=== PATIENT | female | born 1995 | race Caucasian/White ===

== ENCOUNTER 2022-11-24 20:06 | Outpatient (REF) | payer BC, SELFPAY ==
[2022-11-28 13:08] LABS: Age Gdln ACOG Testing Note (.); IGP, rfx Aptima HPV ASCU Note (.)
== END 2022-11-24 20:07 ==
LOC: LAB 20:06
PROVIDERS: PCP Physician Assistant; Visit Provider Physician Assistant
DX: Z12.4 Encounter for screening for malignant neoplasm of cervix (principal)
CPT/HCPCS: G0145

== ENCOUNTER 2023-12-06 16:54 | Emergency (ER) | payer OTHER, SELFPAY ==
[2023-12-06 17:08] VITALS: BP 110/87; PULSE 91; TEMP 36.9; O2SAT 97; BMI 37.1
--- NOTE | 2023-12-06 17:19 | ED.ALLEREA1 ---
HPI - Allergic Reaction General Chief complaint: Allergic Reaction Stated complaint: Allergic Reaction Time Seen by Provider: 12/06/23 17:05 Source: patient Mode of arrival: walk-in Limitations: no limitations History of Present Illness HPI narrative: Patient is a 28-year-old female who presents to the emergency department for evaluation of facial swelling, runny nose and wheezing secondary to guinea pig exposure at the [employer] where she has started working. She states throughout the day she has had swelling that comes and goes, it is intermittently relieved with Benadryl and her albuterol inhaler but returned shortly after. She has not noted any lip swelling, tongue swelling. She has no hives or diffuse itching. No concern for . Related Data Previous Rx's ?Medication ?Instructions ?Recorded albuterol sulfate 90 mcg/actuation 2 inh inhalation Q4H PRN shortness 12/06/23 aerosol inhaler of breath or wheezing #8.5 grams hydroxyzine HCl 25 mg tablet 25 mg PO Q6H PRN itching #20 tabs 12/06/23 prednisone 20 mg tablet See Rx Instructions .Route 12/06/23 .COMPLEX #12 tabs Allergies Allergy/AdvReac Type Severity Reaction Status Date / Time No Known Drug Allergies Allergy Verified 12/06/23 17:07 Review of Systems ROS Constitutional Denies: fever or chills Eyes Denies: change in vision Ears, nose, mouth, and throat Denies: throat pain Cardiovascular Denies: chest pain Respiratory Reports: wheezing; Denies: shortness of breath Gastrointestinal Denies: nausea or vomiting Musculoskeletal Denies: back pain Integumentary/Breast Denies: rash Neurological Denies: headache Hematologic/Lymphatic Denies: easy bruising or easy bleeding Exam Narrative Exam Narrative: Gen.: Awake, alert, in no distress Head: Normocephalic, atraumatic ENT: Moist mucous membranes, Mild edema noted of the bilateral eyes with no conjunctival injection, no periorbital erythema or tenderness. Airway widely open and patent with uvula midline. No lip or tongue swelling noted Respiratory: No respiratory distress, lungs clear bilaterally; Faint expiratory wheeze in the left lower lobe Cardio: Regular rate and rhythm Extremities: Moves extremities equally Psych: Normal mood and affect Neuro: No focal neuro deficit Skin: Warm, dry, intact Constitutional Vital Signs, click to edit/add: Last Vital Signs Temp 98.4 F 12/06/23 17:08 Pulse 91 H 12/06/23 17:08 Resp 17 12/06/23 17:08 BP 110/87 12/06/23 17:08 Pulse Ox 97 12/06/23 17:08 O2 Del Method Room Air 12/06/23 17:08 Course Vital Signs Vital signs: Vital Signs Temperature 98.4 F 12/06/23 17:08 Pulse Rate 91 H 12/06/23 17:08 Respiratory Rate 17 12/06/23 17:08 Blood Pressure 110/87 12/06/23 17:08 Pulse Oximetry 97 12/06/23 17:08 Oxygen Delivery Method Room Air 12/06/23 17:08 Temperature 98.4 F 12/06/23 17:08 Pulse Rate 91 H 12/06/23 17:08 Respiratory Rate 17 12/06/23 17:08 Blood Pressure 110/87 12/06/23 17:08 Pulse Oximetry 97 12/06/23 17:08 Oxygen Delivery Method Room Air 12/06/23 17:08 MDM - Allergic Reaction MDM Narrative Medical decision making narrative: Patient treated for generalized allergic reaction with Solu-Medrol and DuoNeb in the emergency department. She has stable vital signs. She is in no respiratory distress with no evidence of airway compromise or anaphylaxis. She was given a refill for her albuterol inhaler, hydroxyzine and prednisone for home. Medical Records Attestation: I reviewed the patient's medical records. Discharge Plan Discharge Stand Alone Forms: Portal Instructions Chief Complaint: Allergic Reaction Clinical Impression: Allergic reaction Patient Disposition: Home, Self-Care Time of Disposition Decision: 17:18 Condition: Good Prescriptions / Home Meds: New prednisone 20 mg tablet See Rx Instructions .ROUTE .COMPLEX Qty: 12 0RF Rx Instructions: 3 tabs daily for 2 days, then 2 tabs daily for 2 days, then 1 tab daily for 2 days hydroxyzine HCl 25 mg tablet 25 mg PO Q6H PRN (Reason: itching) Qty: 20 0RF albuterol sulfate 90 mcg/actuation HFA aerosol inhaler 2 inh inhalation Q4H PRN (Reason: shortness of breath or wheezing) Qty: 8.5 0RF Print Language: Emirati Instructions: General Allergic Reaction (ED) Referrals: Ally Craig NP [Primary Care Provider] - 1 week
[2023-12-06] MEDS: IPRATROPIUM/ALBUTEROL SULFATE 3 ML AMPUL.NEB IH (17:26)
[2023-12-06] MEDS: METHYLPREDNISOLONE SOD SUCC PF 125 MG/2 ML VIAL IM (17:37)
[2023-12-06 17:42] VITALS: O2SAT 95
== END 2023-12-06 17:42 | disposition home or self-care (01) ==
PROVIDERS: Emergency Provider Emergency Medicine Emergency Medical Services; PCP Nurse Practitioner
DX: T78.40XA Allergy, unspecified, initial encounter (principal); X58.XXXA Exposure to other specified factors, initial encounter
CPT/HCPCS: 94640; 96372; 99284; J2919

== ENCOUNTER 2023-12-16 09:58 | Emergency (ER) | payer OTHER, SELFPAY ==
[2023-12-16 10:11] VITALS: BP 109/72; PULSE 70; TEMP 36.8; O2SAT 100; BMI 37.4
--- OUTSIDE RECORDS SUMMARY | 2023-12-16 10:19 | XMS_ITS | CCD ---
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 antisepsis were followed. The patient was placed supine and the right hip was prepped and draped in standard sterile fashion using maximum sterile barrier technique. Using fluoroscopic guidance a appropriate location was chosen on theright hip and local anesthesia was achieved using 1% lidocaine. Using fluoroscopic guidance, a 20 g needle was advanced to the superior lateral margin of the femoral head neck junction until bone was reached. Contrast administration through the needle confirmed appropriate placement. Subsequently, 15 mL of dilute gadolinium (40 mL Isovue 370/0.2 mL gadolinium) mixture was administered. The needle was withdrawn and a Band-Aid was applied at the site. Estimated blood loss was less than 1 mL. The patient tolerated the procedure well and left the Department in stable condition. IMPRESSION: Successful fluoroscopic-guided right hip arthrogram. Patient was transferred to MRI for further imaging. [employer] Phone: Radiology Study observation (narrative) [employer] Phone: IR INJ ARTHROGRAM HIP RIGHTO rdered By: Eric Dukes on 06-05-2022 [employer] Phone: 2018 Novel Coronavirus (CoVI D-19), [facility]IR on 02-20-2021 SARS-CoV-2 (COVID-19) RNA SAMIR+probe Ql (Unsp spec) Not detected Invalid Interpretation Code Not Detected [facility] Comment on above: Result Comment: This nucleic acid amplification test was developed and its performance characteristics determined by [employer]. Nucleic acid amplification tests include RT- PCR and TMA. This test has not been FDA cleared or approved. This test has been authorized by FDA under an Emergency Use Authorization (EUA). This test is only authorized for the duration of time the declaration that circumstances exist justifying the authorization of the emergency use of in vitro diagnostic tests for detection of SARS-CoV-2 virus and/or diagnosis of COVID-19 infection under section 564(b)(1) of the Act, 21 U.S.C. 360bbb-3(b) (1), unless the authorization is terminated or revoked sooner. When diagnostic testing is negative, the possibility of a false negative result should be considered in the context of a patient's recent exposures and the presence of clinical signs and symptoms consistent with COVID-19. An individual without symptoms of COVID-19 and who is not shedding SARS-CoV-2 virus would expect to have a negative (not detected) result in this assay. Performed At: [facility] [id number] Maritza Uribe PhD Ph:[phone] Performed By: #### 6 [id number] #### [facility] (DEFAULT) [address] [place] [address] Consent Formson 02-19-2021 Consent Forms [id number] #[facility] [id number] #1.00[facility] Lab - Toxicology Resultson 0 02-19-2021 Lab - Toxicology Results [id number] #1.00OTGTIFF [facility] Outside Recordson 02-19-2021 Outside Records [id number] #1.00OTGTIFF [facility] Triage Industrialon 02-20-20 21 Drug Screen Complete Collected [facility] Comment on above: Performed By: #### 1 [id number] #### [facility] (DEFAULT) [address] [place] [address] ED Clinical Summaryon 2020 ED Clinical Summary [facility] ? Urgent Care [address] [place] [address] Clinical Summary PERSON INFORMATION Name: MADDIE RAMAN Age: 25 Years Sex: FEMALE : 1995 MRN: Acct#: Visit Reason: Medical screening exam; [facility] Arrival: 02/18/2021 13:01:04 Discharge: 02/18/2021 14:21:00 LOS: 000 01:20 Check In: 02/18/2021 13:01:04 Checkout: 02/18/2021 14:21:00 Address: [address] [facility] [address] PCP: Provider, Unlisted PROVIDER INFORMATION Provider Role Assigned Unassigned Adam Moncada PA-C ED PA 02/18/2021 13:10:24 DEYVI Cornejo, Jeanie ED Nurse 02/18/2021 13:11:55 VITALS INFORMATION Vital Sign Triage Latest Temperature Tympanic Temperature Temporal Artery Pulse Rate O2 Sat 99 % 99 % Respiratory Rate Blood Pressure /91 mmHg /91 mmHg MEDICAL INFORMATION Medications Given: Allergy Information: No known allergies PHYSICIAN DOCUMENTATION DISCHARGE INFORMATION: Discharge Disposition: Home Discharge Location: Home PATIENT EDUCATION INFORMATION Instructions: Follow-Up: DIAGNOSIS: Patient Understands: Yes - Patient/family/careg iver verbalizes understanding of instructions given Comment: Normal [facility] ED Patient Summaryon 021 ED Patient Summary [facility] ? Urgent Care [address] [place] [id number] PATIENT DISCHARGE INSTRUCTIONS Patient Information Name: MADDIE RAMAN Age: 25 Years Date of : 1995 Reason For Visit: Medical screening exam; [facility] Arrival Time: 02/18/2021 13:01:04 Primary Care Physician: Provider, Unlisted Attending Physician: Adam Moncada PA-C Comment: Patient Education Medication Information: The exam and treatment you received today in the [facility] Emergency Department were for an urgent problem and are not intended as complete care. It is important for you to follow up with a doctor, nurse practitioner, or physician?s housekeeper and laundry assistant for ongoing care. If your symptoms become worse or you do not improve as expected and you are unable to reach your usual health care provider, you should return to the Emergency Department, we are available 24 hours a day. For those patients who have received Radiology results, the interpretation of your X-ray as given to you by our Emergency Department physician is only a preliminary report. The Radiologist will review your films and if there is a change in the diagnosis you will be notified by phone. Please make sure you have provided a working phone number so we can reach you if necessary. In the event that you had a lab culture while you were a patient in the Emergency Department, you will be notified by phone if there is a need to change your antibiotic. Please make sure you have provided a working phone number so we can reach you if necessary. [facility] Emergency Department has provided you with a complete list of medications post discharge. 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 retail business development manager/provider of your visit and for further instruction on these medications. Any specific questions regarding your chronic medications and dosages should be discussed with your primary care physician(s) and/or pharmacist. Visit Information Visit Diagnosis: Diagnoses This Visit Medical screening exam ([id number]) If you received any narcotics, sedation, or any other medication that causes drowsiness for the next 24 hours, unless otherwise directed: ? Do not drive a car. ? Do not operate machinery such as power tools, lawn mowers, drills, sewing machines, or stoves ? Avoid alcoholic beverages and drugs for allergies, nerves, or sleep ? Do not make important personal or business decisions or sign any legal documents Reason for Visit: Patient arrives to for [facility] physical Allergies: Substance Reaction Symptoms Type Comments No known allergies Drug Vital Signs: Vitals and Measurements this Visit (last charted value for your 02/18/2021 visit) Vital Signs This Visit Temperature Oral: 36.9 DegC Peripheral Pulse Rate: 84 bpm Respiratory Rate: 16 br/min Systolic Blood Pressure: 130 mmHg Diastolic Blood Pressure: 91 mmHg SpO2: 99 % Oxygen Therapy: Room air Problems List: Problem Onset Comments No Problems found Major Tests and Procedures: The following procedures and tests were performed during your ED visit. Laboratory 2019 Novel Coronavirus (CoVID-19), [facility] LC (SEND OUT) Nasopharyngeal Swab, 02/18/21 14:12:00 EDT, Stat collect, Stop date 02/18/21 14:13:00 EDT, Nurse collect, Yes, No, No, No, No, Not Radiology Cardiology Viruses or Bacteria What?s got you sick? Antibiotics only treat bacterial infections. Viral illnesses cannot be treated with antibiotics. When an antibiotic is not prescribed, ask your healthcare professional for tips on how to relieve symptoms and feel better. Usual Cause Illness Viruses Bacteria Antibiotic Needed Cold/Runny Nose NO Bronchitis/Chest Cold (in otherwise healthy children and adults) NO Whooping Cough Yes Flu NO Strep Throat Yes Sore Throat (except strep) NO Fluid in the middle ear (otitis media with effusion) NO Urinary Tract Infection Yes Antibiotics Aren?t Always the Answer www.cdc.gov/getsmart GET SMART Know When Antibiotics Work U.S. Department of Health and Human Services Centers for Disease Control and Prevention February 2014 [facility] Urgent Care Note- Provideron 02-18-2021 Urgent Care Note- Provider Patient: MADDEI RAMAN Age: 25 years Sex: FEMALE : 1995 Associated Diagnoses: None Author: Adam Moncada PA-C Basic Information Additional information: Chief Complaint from Nursing Triage Note : Chief Complaint 02/18/2021 13:34 EDT Chief Complaint Patient arrives to for [facility] physical . History of Present Illness Patient presents for a pre-employment physical. She is cleared for work. Exam is normal. See scanned document. PSYCHIATRIC: Mood and affect appropriate. Health Status Allergies: Allergic Reactions (Selected) No known allergies. Past Medical/ Family/ Social History Medical history: No active or resolved past medical history items have been selected or recorded.. Surgical history: Cholecystectomy ([id number]). Hip replacement ([id number]). delivery ([id number]). Cardiac ablation system ([id number]).. Family history: No family history items have been selected or recorded.. Social history: Social & Psychosocial Habits Alcohol 02/18/2021 Alcohol Use: Current Frequency: 1-2 times per year Substance Abuse 02/18/2021 Substance use: Never Tobacco 02/18/2021 Smoking tobacco use: Never (less than 100 in l Electronic Cigarette/Vaping 02/18/2021 Electronic Cigarette Use: Never . Problem list: No qualifying data available . Physical Examination Vital Signs Vital Signs 02/18/2021 13:34 EDT Temperature Oral 36.9 DegC Peripheral Pulse Rate 84 bpm Respiratory Rate 16 br/min Systolic Blood Pressure 130 mmHg Diastolic Blood Pressure 91 mmHg HI SpO2 99 % Oxygen Therapy Room air . [facility] [place] 021 Urgent Care Record [facility] ? Urgent Care [address] [place] [address] PATIENT DISCHARGE INSTRUCTIONS Patient Information Name: MADDIE RAMAN Age: 25 Years Date of : 1995 Reason For Visit: Medical screening exam; [facility] Arrival Time: 02/18/2021 13:01:04 Primary Care Physician: Provider, Unlisted Attending Physician: Adam Moncada PA-C Comment: Visit Diagnosis: Diagnoses This Visit Medical screening exam ([id number]) If you received any narcotics, sedation, or any other medication that causes drowsiness for the next 24 hours, unless otherwise directed: ? Do not drive a car. ? Do not operate machinery such as power tools, lawn mowers, drills, sewing machines, or stoves ? Avoid alcoholic beverages and drugs for allergies, nerves, or sleep ? Do not make important personal or business decisions or sign any legal documents Medication Information: The exam and treatment you received today in the [facility] Urgent Care were for an urgent problem and are not intended as complete care. It is important for you to follow up with a doctor, nurse practitioner, or physician?s housekeeper and laundry assistant for ongoing care. If your symptoms become worse or you do not improve as expected and you are unable to reach your usual health care provider, you should return to the Emergency Department, we are available 24 hours a day. For those patients who have received Radiology results, the interpretation of your X-ray as given to you by our Urgent Care physician is only a preliminary report. The Radiologist will review your films and if there is a change in the diagnosis you will be notified by phone. Please make sure you have provided a working phone number so we can reach you if necessary. In the event that you had a lab culture while you were a patient in the Urgent Care, you will be notified by phone if there is a need to change your antibiotic. Please make sure you have provided a working phone number so we can reach you if necessary. [facility] has provided you with a complete list of medications post discharge. 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 retail business development manager/provider of your visit and for further instruction on these medications. Any specific questions regarding your chronic medications and dosages should be discussed with your primary care physician(s) and/or pharmacist. Visit Information Allergies: Substance Reaction Symptoms Type Comments No known allergies Drug Vital Signs: Vitals and Measurements this Visit (last charted value for your 02/18/2021 visit) Vital Signs This Visit Temperature Oral: 36.9 DegC Peripheral Pulse Rate: 84 bpm Respiratory Rate: 16 br/min Systolic Blood Pressure: 130 mmHg Diastolic Blood Pressure: 91 mmHg SpO2: 99 % Oxygen Therapy: Room air Problems List: Problem Onset Comments No Problems found Patient Education Viruses or Bacteria What?s got you sick? Antibiotics only treat bacterial infections. Viral illnesses cannot be treated with antibiotics. When an antibiotic is not prescribed, ask your healthcare professional for tips on how to relieve symptoms and feel better. Usual Cause Illness Viruses Bacteria Antibiotic Needed Cold/Runny Nose NO Bronchitis/Chest Cold (in otherwise healthy children and adults) NO Whooping Cough Yes Flu NO Strep Throat Yes Sore Throat (except strep) NO Fluid in the middle ear (otitis media with effusion) NO Urinary Tract Infection Yes Antibiotics Aren?t Always the Answer www.cdc.gov/getsmart GET SMART Know When Antibiotics Work U.S. Department of Health and Human Services Centers for Disease Control and Prevention February 2014 Normal [facility] PROGESTERONEon 05-25-2020 Progesterone 3.3 ng/mL Normal [facility] Comment on above: Result Comment: Foll icular phase 0.1 - 0.9 Luteal phase 1.8 - 23.9 Ovulation phase 0.1 - 12.0 First trimester 11.0 - 44.3 Second trimester 25.4 - 83.3 Third trimester 58.7 - 214.0 Postmenopausal 0.0 - 0.1 Performed By: #### P ROSA #### [facility] [address] [place], [place] [address] Sebastiansam Ordoñez Hgb/Hcton 02-22-2019 Hematocrit (Bld) [Volume fraction] 28.7 % Low 36-46 [facility] Comment on above: Performed By: #### H H #### [facility] [address] [place] [address] Ip Attorney: Remy Haq DO Hemoglobin (Bld) [Mass/Vol] 9.4 g/dL Low 12.0-16.0 [facility] Comment on above: Performed By: #### H H #### [facility] [address] [place] [address] Ip Attorney: Remy Haq DO Basic Metabolic Profon 02-20 (cont.) Normal [facility] Comment on above: Result Comment: Aver age GFR for 20-29 years old: 116 mL/min/1.73sq m Chronic Kidney Disease: <60 mL/min/1.73sq m Kidney failure: <15 mL/min/1.73sq m eGFR calculated using average adult body mass. Additional eGFR calculator available at: http://www.[employer]itsistant/multiple_crcl_2011.htm Performed By: #### Joy YUN, BMP #### [facility] [address] [facility] [place] [address] Ip Attorney: Remy Haq DO Anion gap [Moles/Vol] 13 mmol/L Normal 9-17 [facility] Comment on above: Performed By: #### Joy YUN, BMP #### [facility] [address] [facility] [place] [address] Ip Attorney: Remy Haq DO Calcium [Mass/Vol] 8.8 mg/dL Normal 8.6-10.4 [facility] Comment on above: Performed By: #### Joy YUN, BMP #### [facility] [address] [facility] [place] [address] Ip Attorney: Remy Haq DO Chloride [Moles/Vol] 103 mmol/L Normal 98-107 [facility] Comment on above: Performed By: #### Joy YUN, BMP #### [facility] [address] [facility] [place] [address] Ip Attorney: Remy Haq DO CO2 [Moles/Vol] 25 mmol/L Normal 20-31 [facility] Comment on above: Performed By: #### C BC, BMP #### [facility] [address] [place] [address] Ip Attorney: Remy Haq DO Creatinine [Mass/Vol] 0.72 mg/dL Normal 0.50-0.90 [facility] Comment on above: Performed By: #### C BC, BMP #### [facility] [address] [place] [address] Ip Attorney: Remy Haq, DO GFR, Amer >60 Normal >60 [facility] Comment on above: Performed By: #### C BC, BMP #### [facility] [address] [place] [address] Ip Attorney: Remy Haq DO GFR,non Amer >60 Normal >60 [facility] Comment on above: Performed By: #### C BC, BMP #### [facility] [address] [place] [address] Ip Attorney: Remy Haq DO Glucose [Mass/Vol] 96 mg/dL Normal 70-99 [facility] Comment on above: Performed By: #### C BC, BMP #### [facility] [address] [place] [address] Ip Attorney: Remy Haq DO Potassium [Moles/Vol] 4.0 mmol/L Normal 3.7-5.3 [facility] Comment on above: Performed By: #### C BC, BMP #### [facility] [address] [place] [address] Ip Attorney: Remy Haq DO Sodium [Moles/Vol] 141 mmol/L Normal 135-144 [facility] Comment on above: Performed By: #### C BC, BMP #### [facility] [address] [facility] [place] [address] Ip Attorney: Remy Haq DO Urea nitrogen [Mass/Vol] 10 mg/dL Normal 6-20 [facility] Comment on above: Performed By: #### C JAMA, BMP #### [facility] [address] [facility] [place] [address] Ip Attorney: Remy Haq DO BUN/CRE Ratio NOT REPORTED Normal -20 [facility] Comment on above: Performed By: #### Joy YUN, BMP #### [facility] [place] [address] Ip Attorney: Remy Haq DO Staging: NOT REPORTED Normal [facility] Comment on above: Performed By: #### Joy YUN, BMP #### [facility] [address] [place] [address] Ip Attorney: Remy Haq DO CBCon 02-20-2019 Erythrocyte distribution width (RBC) [Ratio] 16.5 % High 11.5-14.9 [facility] Comment on above: Performed By: #### Joy YUN, BMP #### [facility] [address] [place] [address] Ip Attorney: Remy Haq DO Hematocrit (Bld) [Volume fraction] 25.9 % Low 36-46 [facility] Comment on above: Performed By: #### C JAMA, BMP #### [facility] [address] [place] [address] Ip Attorney: Remy Haq DO Hemoglobin (Bld) [Mass/Vol] 8.6 g/dL Low 12.0-16.0 [facility] Comment on above: Performed By: #### Joy YUN, BMP #### [facility] [address] [place] [address] Ip Attorney: Remy Haq DO MCH (RBC) [Entitic mass] 28.2 pg Normal 26-34 [facility] Comment on above: Performed By: #### Joy YUN, BMP #### [facility] [place] [address] Ip Attorney: Remy Haq DO MCHC (RBC) [Mass/Vol] 33.0 g/dL Normal 31-37 [facility] Comment on above: Performed By: #### Joy YUN, BMP #### [facility] [address] [place] [address] Ip Attorney: Remy Haq DO MCV (RBC) [Entitic vol] 85.4 fL Normal 80-100 [facility] Comment on above: Performed By: #### Joy YUN, BMP #### [facility] [address] [place] [address] Ip Attorney: Remy Haq DO Platelet mean volume (Bld) [Entitic vol] 6.7 fL Normal 6.0-12.0 [facility] Comment on above: Performed By: #### Joy YUN, BMP #### [facility] [address] [place] [address] Ip Attorney: Remy Haq DO Platelets (Bld) [#/Vol] 419 10*3/uL Normal 150-450 [facility] Comment on above: Performed By: #### Joy YUN, BMP #### [facility] [address] [place] [address] Ip Attorney: Remy Haq DO RBC (Bld) [#/Vol] 3.03 10*6/uL Low 4.0-5.2 [facility] Comment on above: Performed By: #### Joy YUN, BMP #### [facility] [address] [place] [address] Ip Attorney: Remy Haq DO WBC (Bld) [#/Vol] 6.3 10*3/uL Normal 3.5-11.0 [facility] Comment on above: Performed By: #### C BC, BMP #### [facility] [address] [place] [address] Ip Attorney: Remy Haq DO NRBC Automated NOT REPORTED Normal [facility] Comment on above: Performed By: #### C BC, BMP #### [facility] [address] [place] [address] Ip Attorney: Remy Haq DO Hgb/Hcton 02-20-2019 Hematocrit (Bld) [Volume fraction] 29.6 % Low 3646 [facility] Comment on above: Performed By: #### H H #### [facility] [place] [address] Ip Attorney: Remy Haq DO Hemoglobin (Bld) [Mass/Vol] 9.7 g/dL Low 12.0-16.0 [facility] Comment on above: Performed By: #### H H #### [facility] [place] [address] Ip Attorney: Remy Haq DO CBCon 02-19-2019 Erythrocyte distribution width (RBC) [Ratio] 16.6 % High 11.5-14.9 [facility] Comment on above: Performed By: #### C BC #### [facility] [place] [address] Ip Attorney: Remy Haq DO Hematocrit (Bld) [Volume fraction] 23.2 % Low 36-46 [facility] Comment on above: Performed By: #### C BC #### [facility] [place] [address] Ip Attorney: Remy Haq DO Hemoglobin (Bld) [Mass/Vol] 7.6 g/dL Low 12.0-16.0 [facility] Comment on above: Performed By: #### C BC #### [facility] [address] [place] [address] Ip Attorney: Remy Haq DO MCH (RBC) [Entitic mass] 27.8 pg Normal 26-34 [facility] Comment on above: Performed By: #### C BC #### [facility] [address] [place] [address] Ip Attorney: Remy Haq DO MCHC (RBC) [Mass/Vol] 32.7 g/dL Normal 31-37 [facility] Comment on above: Performed By: #### C BC #### [facility] [address] [place] [address] Ip Attorney: Remy Haq DO MCV (RBC) [Entitic vol] 85.0 fL Normal 80-100 [facility] Comment on above: Performed By: #### C BC #### [facility] [address] [place] [address] Ip Attorney: Remy Haq DO Platelet mean volume (Bld) [Entitic vol] 6.5 fL Normal 6.0-12.0 [facility] Comment on above: Performed By: #### C BC #### [facility] [facility] [place] [address] Ip Attorney: Remy Haq DO Platelets (Bld) [#/Vol] 444 10*3/uL Normal 150-450 [facility] Comment on above: Performed By: #### C BC #### [facility] [place] [address] Ip Attorney: Remy Haq DO RBC (Bld) [#/Vol] 2.73 10*6/uL Low 4.0-5.2 [facility] Comment on above: Performed By: #### C BC #### [facility] [address] [facility] [place] [address] Ip Attorney: Remy Haq DO WBC (Bld) [#/Vol] 5.1 10*3/uL Normal 3.5-11.0 [facility] Comment on above: Performed By: #### C BC #### [facility] [address] [place] [address] Ip Attorney: Remy Haq DO NRBC Automated NOT REPORTED Normal [facility] Comment on above: Performed By: #### C BC #### [facility] [address] [place] [address] Ip Attorney: Remy Haq DO Type + Crossmatchon 02-20-20 19 Type + Crossmatch Sample Expiration 02/22/2019 Arm Band Number [id number] ABO/Rh(D) A POSITIVE Antibody Screen NEGATIVE Blood Bank Comment Pt's ABRh confirmed as A POS:402 Results Verified BLANCHE, Polyspecific NEGATIVE BLANCHE, Anti-IgG Loreta Serum NEGATIVE Antibody Ident Anti-[place](A) Present Unit Number [id number] Blood Component Type Leukocyte Reduced Red Cell Unit Division 00 Status of Unit TRANSFUSED Transfusion Status OK TO TRANSFUSE Crossmatch Result COMPATIBLE [facility] Comment on above: Performed By: #### T YX #### [facility] [address] [place] [address] Ip Attorney: Remy Haq DO Basic Metab w/rfx MGon 02-16 (cont.) [facility] Comment on above: Result Comment: Aver age GFR for 20-29 years old: 116 mL/min/1.73sq m Chronic Kidney Disease: <60 mL/min/1.73sq m Kidney failure: <15 mL/min/1.73sq m eGFR calculated using average adult body mass. Additional eGFR calculator available at: http://www.MindSumo.com/multiple_crcl_2012.htm Performed By: #### B MPX, CBC #### [facility] [address] [place] [address] Ip Attorney: Remy Haq DO Anion gap [Moles/Vol] 11 mmol/L Normal 9-17 [facility] Comment on above: Performed By: #### B MPX, CBC #### [facility] [address] [facility] [place] [address] Ip Attorney: Remy Haq DO Calcium [Mass/Vol] 8.6 mg/dL Normal 8.6-10.4 [facility] Comment on above: Performed By: #### B MPX, CBC #### [facility] [place] [address] Ip Attorney: Remy Haq DO Chloride [Moles/Vol] 100 mmol/L Normal 98-107 [facility] Comment on above: Performed By: #### B EVERETTEX, CBC #### [facility] [place] [address] Ip Attorney: Remy Haq DO CO2 [Moles/Vol] 26 mmol/L Normal 20-31 [facility] Comment on above: Performed By: #### B MPX, CBC #### [facility] [address] [place] [address] Ip Attorney: Remy Haq DO Creatinine [Mass/Vol] 0.62 mg/dL Normal 0.50-0.90 [facility] Comment on above: Performed By: #### B MPX, CBC #### [facility] [address] [place] [address] Ip Attorney: Remy Haq DO GFR, Amer >60 Normal >60 [facility] Comment on above: Performed By: #### B MPX, CBC #### [facility] [address] [place] [address] Ip Attorney: Remy Haq DO GFR,non Amer >60 Normal >60 [facility] Comment on above: Performed By: #### B MPX, CBC #### [facility] [address] [place] [address] Ip Attorney: Remy Haq DO Glucose [Mass/Vol] 95 mg/dL Normal 70-99 [facility] Comment on above: Performed By: #### B MPX, CBC #### [facility] [address] [place] [address] Ip Attorney: Remy Haq DO Potassium [Moles/Vol] 4.2 mmol/L Normal 3.7-5.3 [facility] Comment on above: Performed By: #### B MPX, CBC #### [facility] [address] [place] [address] Ip Attorney: Remy Haq DO Sodium [Moles/Vol] 137 mmol/L Normal 135-144 [facility] Comment on above: Performed By: #### B MPX, CBC #### [facility] [place] [address] Ip Attorney: Remy Haq DO Urea nitrogen [Mass/Vol] 11 mg/dL Normal 6-20 [facility] Comment on above: Performed By: #### B MPX, CBC #### [facility]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
--- NOTE | 2023-12-16 10:39 | XR_ITS ---
The [address] [address] Patient Name: MADDIE ORNELAS MRN: [id number] date: 1995 Sex: F Assigned Patient Location: ER Current Patient Location: ER Accession/Order Number: [id number] Exam Date: 12/16/2023 11:08 Report Date: 12/16/2023 11:40 At the request of: RYAN HERNANDEZ Procedure: XR lumbar spine 2-3V EXAMINATION: XR lumbar spine 2-3V HISTORY: Low back pain COMPARISON: No relevant comparison available. FINDINGS: BONES: Normal. No significant spondylosis, scoliosis, fracture, or visible bony lesion. DISC SPACES: Normal. No significant disc height narrowing, subluxation, or endplate abnormality. PARASPINOUS: Negative. No paraspinous abnormality is seen. OTHER: Negative. XR/XR lumbar spine 2-3V IMPRESSION: No acute abnormality Electronically authenticated by: ALEJANDRINA ESQUEDA Date: 12/16/2023 11:40
--- NOTE | 2023-12-16 11:46 | ED.BACK1 ---
HPI HPI - Back Pain/Injury General Chief Complaint: Back Pain/Injury Stated Complaint: BACK PAIN Time Seen by Provider: 12/16/23 10:39 Source: patient Mode of arrival: walk-in History of Present Illness HPI Narrative: Patient is here complaining of pain in the low midline of the lumbar spine. She was merely bending over after mopping the floor. She felt a popping type sensation. She did not fall she was not lifting a heavy load. The pain radiates from the midline to both the left and the right iliac area. It does not radiate down the buttock area. There is no associated paresis paresthesias tingling numbness or weakness of the extremities. She had previous right hip surgery done but she does not have any surgery pain rather in her right hip area. No other plain. There is no bowel or bladder incontinence. Related Data Previous Rx's ?Medication ?Instructions ?Recorded albuterol sulfate 90 mcg/actuation 2 inh inhalation Q4H PRN shortness 12/06/23 aerosol inhaler of breath or wheezing #8.5 grams hydroxyzine HCl 25 mg tablet 25 mg PO Q6H PRN itching #20 tabs 12/06/23 prednisone 20 mg tablet See Rx Instructions .Route 12/06/23 .COMPLEX #12 tabs Allergies Allergy/AdvReac Type Severity Reaction Status Date / Time No Known Drug Allergies Allergy Verified 12/06/23 17:07 Opioid HPI Opioid Management Most Recent Opioid Data: No Data to Display Exam Narrative Exam Narrative: Awake alert Meridian x 3 pleasant moves about with some hesitation. In a sitting position or deep tendon reflexes in the peripheral Achilles and patella are symmetrical bilaterally. She does not have straight leg raising test. She has strong extensor houses longus function of both her feet. Examining her back there is no obvious kyphoscoliosis. Constitutional Vital Signs, click to edit/add: Last Vital Signs Temp 98.2 F 12/16/23 10:11 Pulse 70 12/16/23 10:11 Resp 16 12/16/23 10:11 BP 109/72 12/16/23 10:11 Pulse Ox 100 12/16/23 10:11 O2 Del Method Room Air 12/16/23 10:11 Course Vital Signs Vital signs: Vital Signs Temperature 98.2 F 12/16/23 10:11 Pulse Rate 70 12/16/23 10:11 Respiratory Rate 16 12/16/23 10:11 Blood Pressure 109/72 12/16/23 10:11 Pulse Oximetry 100 12/16/23 10:11 Oxygen Delivery Method Room Air 12/16/23 10:11 Temperature 98.2 F 12/16/23 10:11 Pulse Rate 70 12/16/23 10:11 Respiratory Rate 16 12/16/23 10:11 Blood Pressure 109/72 12/16/23 10:11 Pulse Oximetry 100 12/16/23 10:11 Oxygen Delivery Method Room Air 12/16/23 10:11 MDM - Back Pain/Injury MDM Narrative Medical decision making narrative: Routine lumbar spine x-rays were done to establish primarily at baseline I did expect them to be normal, the radiologist read these films as normal. I believe she has lumbar strain with no evidence of radiculopathy. Recommendations were discussed and are conservative at this time Discharge Plan Discharge Stand Alone Forms: Portal Instructions Chief Complaint: Back Pain/Injury Clinical Impression: Acute lumbar myofascial strain Patient Disposition: Home, Self-Care Time of Disposition Decision: 11:48 Prescriptions / Home Meds: No Action prednisone 20 mg tablet See Rx Instructions .ROUTE .COMPLEX Qty: 12 0RF Rx Instructions: 3 tabs daily for 2 days, then 2 tabs daily for 2 days, then 1 tab daily for 2 days hydroxyzine HCl 25 mg tablet 25 mg PO Q6H PRN (Reason: itching) Qty: 20 0RF albuterol sulfate 90 mcg/actuation HFA aerosol inhaler 2 inh inhalation Q4H PRN (Reason: shortness of breath or wheezing) Qty: 8.5 0RF Print Language: Thai Additional Instructions: May alternate ice with heat/[id number]-dnffnyd NSAIDs such as Aleve. Flexeril as needed for muscle relaxant Referrals: Ally Craig, SHEET METAL TECHNICIAN [Primary Care Provider] - 1 week
== END 2023-12-16 12:03 | disposition home or self-care (01) ==
PROVIDERS: Emergency Provider Emergency Medicine Emergency Medical Services; PCP Nurse Practitioner
DX: S39.012A Strain of muscle, fascia and tendon of lower back, initial encounter (principal); X50.9XXA Other and unspecified overexertion or strenuous movements or postures, initial encounter
CPT/HCPCS: 72100; 99283

== ENCOUNTER 2023-12-17 17:28 | Emergency (ER) | payer OTHER, SELFPAY ==
--- OUTSIDE RECORDS SUMMARY | 2023-12-17 17:41 | XMS_ITS | CCD ---
Demographics Address [address] [place] [address] Preferred Language en Marital Status Single Roman Catholic Affiliation Unknown Race Unknown Ethnic Group Not or Lati no Author Organization [facility] Informat ion Partnership [facility] Care Team Providers Care Motion Study Technician Name Role Phone Ally Craig Primary Care Provider TERRI AUGUSTIN Admitting Unavailable TERRI AUGUSTIN Attending Unavailable ALLY CRAIG Primary Care Unavailable VIDYA FERRER Consulting Unavailable CHRISTOPHER, DR HILLIARD Attending Unavailable CHRISTOPHER, DR HILLIARD Consulting Unavailable CHRISTOPHER, DR HILLIARD Admitting Unavailable Jeane Caenla Unavailable Kiara ASSISTANT COUNTY ENGINEER - ELECTRICAL CONTROLS TECHNICIANAlly Primary Care Pro vider ALLY CRAIG Primary [...] source) strawberry allergenic extract Drug Allergy [facility] Repository (3 sources) strawberry allergenic extract Drug Allergy 02-01-2019 Anaphylaxis [facility], [place] Medications Current Medications Medication Drug Class(es) Dates Sig (Normalized) Sig (Original) acetaminophen 500 mg oral tablet (1 source) Start: 02-01-2019 acetaminophen (TYLENOL) tablet 1,000 mg [id number] 200 actuat albuterol 0.09 mg/actuat metered dose [...] by mouth every week vitamin D (ERGOCALCIFEROL) 64708 units CAPS capsule Take 1 capsule by [...] immed iate release tablet 5 mg sennosides, nursing home 8.6 mg oral tablet (2 sources) Start: [...] B12 Start: 02-09-2019 End: 02-09-2019 iron polysaccharide reowucl-M17-rlcga acid (FERREX-FORTE) 150-0.025-1 MG capsule 1 mg [...] gap [Moles/Vol] 10.5 mmol/L Normal 6.0-15.0 [facility] Comment on above: Performed By: #### E BS LIPID, EMP BMP #### [address] Calcium [Mass/Vol] 9.5 mg/dL Normal 8.6-10.3 [facility] Comment on above: Performed By: #### E BS LIPID, EMP BMP #### [address] Chloride [Moles/Vol] 105 mmol/L Normal 98-107 [facility] Comment on above: Performed By: #### E BS LIPID, EMP BMP #### [address] CO2 [Moles/Vol] 29.1 mmol/L Normal 21.0-31.0 [facility] Comment on above: Performed By: #### E BS LIPID, EMP BMP #### [address] Creatinine [Mass/Vol] 0.69 mg/dL Normal 0.60-1.20 [facility] Comment on above: Performed By: #### E BS LIPID, EMP BMP #### [place] [address] [place] GFR/1.73 sq M.predicted MDRD (S/P/Bld) [Vol rate/Area] mL/min/{1.73_m2} Normal [facility] Comment on above: Performed By: #### E BS LIPID, EMP BMP #### [place] [address] [place] Glucose [Mass/Vol] 83 mg/dL Normal 70-100 [facility] Comment on above: Performed By: #### E BS LIPID, EMP BMP #### [address] [place] [address] [place] Potassium [Moles/Vol] 3.6 mmol/L Normal 3.5-5.1 [facility] Comment on above: Performed By: #### E BS LIPID, EMP BMP #### [facility] [address] [place] [address] [place] Sodium [Moles/Vol] 141 mmol/L Normal 136-145 [facility] Comment on above: Performed By: #### E BS LIPID, EMP BMP #### [facility] [address] Urea nitrogen [Mass/Vol] 14 mg/dL Normal 7-25 [facility] Comment on above: Performed By: #### E BS LIPID, EMP BMP #### [facility] [address] Lipid Profileon 12-08-2023 Cholesterol [Mass/Vol] 163 mg/dL Normal 140-200 [facility] Comment on above: Result Comment: Chol less than 200 mg/dl low risk Chol 201-239 mg/dl borderline risk Chol 240 mg/dl and greater high risk Performed By: #### E BS LIPID, EMP BMP #### [place] [address] [place] Cholesterol in HDL [Mass/Vol] 62 mg/dL Normal 23-92 [facility] Comment on above: Result Comment: HDL CHOL ATP-III CLASSIFICATION Cardiovascular Risk HDL > or equal to 60 mg/dL LOW HDL < 40 mg/dL HIGH Performed By: #### E BS LIPID, EMP BMP #### [facility] [address] [place] [address] Cholesterol.total/C holesterol in HDL [Mass ratio] 2.6 {ratio} Normal <5.0 [facility] Comment on above: Result Comment: PERF ORMED BY: [place] [address] PATHOLOGIST SENIOR [employer] NET DEVELOPER CHERYL GEORGE M.D. Performed By: #### E BS LIPID, EMP BMP #### [place] [address] [place] LDL Cholesterol,Calcula desmond 84 mg/dL Normal 0-100 [facility] Comment on above: Result Comment: LDL ATP III CLASSIFICATION LDL less than 100 mg/dL Optimal LDL 100-129 mg/dL Near or above optimal LDL 130-159 mg/dL Borderline high LDL 160-189 mg/dL High LDL greater than 189 mg/dL Very high Performed By: #### E BS LIPID, EMP BMP #### [facility] [address] Triglyceride w/Reflex 87 mg/dL Normal 0-149 [facility] Comment on above: Result Comment: TRIG ATP III CLASSIFICATION TRIG less than 150 mg/dL Normal TRIG 150-199 mg/dL Borderline high TRIG 200-500 mg/dL High TRIG greater than 500 mg/dL Very high Standard traceable to the Center for Disease Conrtrol and Prevention (CDC) test method. Performed By: #### E BS LIPID, EMP BMP #### [facility] [address] VLDL CHOLESTEROL 17 mg/dL Normal [facility] Comment on above: Performed By: #### E BS LIPID, EMP BMP #### [facility] [address] MRI HIP RIGHT W CONTRASTon 1 [...] Tucker Ashby MD 06/08/22 Final result Normal [facility] IR INJ ARTHROGRAM HIP RIGHTo n 06-05-2022 [...] 120.55 uGy cm 2 Views: 3 PROCEDURE: POWER PLANT MECHANIC: Elijah Houston This procedure was performed by [...] Eric Rae MD 06/05/22 Final result Normal [facility] Successful fluoroscopic-guided right hip arthrogram. Patient was transferred to MRI for further imaging. [facility] EXAMINATION: FLUOROSCOPIC GUIDED RIGHT HIP ARTHROGRAM, 06/05/2022 2:50 pm COMPARISON: None. HISTORY: ORDERING SYSTEM PROVIDED HISTORY: Tear of right acetabular labrum, initial encounter TECHNOLOGIST PROVIDED HISTORY: r/o R hip labral tear. MRI ordered Is the patient ?->No FLUOROSCOPY DOSE AND TYPE OR TIME AND EXPOSURES: Fluoro time 0.3 minutes DAP 120.55 uGy cm 2 Views: 3 PROCEDURE: POWER PLANT MECHANIC: Elijah [place] This procedure was performed by [...] and left the Department in stable condition. [facility] Eric Dukes MD - 06/05/2022 EXAMINATION: FLUOROSCOPIC GUIDED RIGHT HIP ARTHROGRAM, 06/05/2022 2:50 pm COMPARISON: None. HISTORY: ORDERING SYSTEM PROVIDED HISTORY: Tear of right acetabular labrum, initial encounter TECHNOLOGIST PROVIDED HISTORY: r/o R hip labral tear. MRI ordered Is the patient ?->No FLUOROSCOPY DOSE AND TYPE OR TIME AND EXPOSURES: Fluoro time 0.3 minutes DAP 120.55 uGy cm 2 Views: 3 PROCEDURE: POWER PLANT MECHANIC: Elijah Houston This procedure was performed by [...] was transferred to MRI for further imaging. [employer] Phone: Radiology Study observation (narrative) [employer] Phone: IR INJ ARTHROGRAM HIP RIGHTO rdered By: Eric Dukes on 06-05-2022 [employer] Phone: 2018 Novel Coronavirus (CoVI D-19), [facility]IR on 02-20-2021 SARS-CoV-2 (COVID-19) RNA SAMIR+probe Ql (Unsp spec) Not detected Invalid Interpretation Code Not Detected [facility] Comment on above: Result Comment: This nucleic acid amplification test was developed and its performance characteristics determined by [employer]. Nucleic acid amplification tests include RT- PCR [...] detected) result in this assay. Performed At: [facility] [id number] Maritza Uribe PhD Ph:[phone] Performed By: #### 6 [id number] #### [facility] (DEFAULT) [address] [place] [address] Consent Formson 02-19-2021 Consent Forms [id number] [facility] [id number] [facility] Lab - Toxicology Resultson 0 02-19-2021 Lab - Toxicology Results [id number] #1.00[facility] Outside Recordson 02-19-2021 Outside Records [id number] #1.00OT[facility]IFF [facility] Triage Industrialon 02-20-20 21 Drug Screen Complete Collected [facility] Comment on above: Performed By: #### 1 [id number] #### [facility] (DEFAULT) [address] [place] [address] ED Clinical Summaryon 2020 ED Clinical Summary [facility] ? Urgent Care [address] [place] [address] Clinical Summary PERSON INFORMATION Name: MADDIE RAMAN Age: 25 Years Sex: FEMALE : 1995 MRN: Acct#: Visit Reason: Medical screening exam; [facility] Arrival: 02/18/2021 13:01:04 Discharge: 02/18/2021 14:21:00 LOS: 000 01:20 Check In: 02/18/2021 13:01:04 Checkout: 02/18/2021 14:21:00 Address: [address] [facility] [address] PCP: Provider, Unlisted PROVIDER INFORMATION Provider Role [...] [facility] ? Urgent Care [address] [place] [address] PATIENT DISCHARGE INSTRUCTIONS Patient Information Name: MADDIE RAMAN Age: 25 Years Date of : 1995 Reason For Visit: Medical screening exam; [facility] Arrival Time: 02/18/2021 13:01:04 Primary Care Physician: Provider, Unlisted Attending Physician: Adam Moncada PA-C Comment: Patient Education Medication Information: The exam and treatment you received today in the [facility] Emergency Department were for an urgent problem and are not intended as complete care. It is important for you to follow up with a doctor, nurse practitioner, or physician?s title assistant for ongoing care. If your symptoms [...] of medications post discharge. 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 lost charge card clerk/provider of your visit and for further instruction on these medications. Any specific questions regarding your chronic medications and dosages should be discussed with your primary care physician(s) and/or pharmacist. Visit Information Visit Diagnosis: Diagnoses This Visit Medical screening exam ([id number]) If you received any narcotics, sedation, or [...] Reason for Visit: Patient arrives to for [place] physical Allergies: Substance Reaction Symptoms Type Comments [...] for Disease Control and Prevention February 2014 [facility] Note- Provideron 02-18-2021 Urgent Care Note- Provider Patient: MADDIE RAMAN Age: 25 years Sex: FEMALE : 1995 Associated Diagnoses: None Author: Adam Moncada PA-C Basic Information Additional information: Chief Complaint from Nursing Triage Note : Chief Complaint 02/18/2021 13:34 EDT Chief Complaint Patient arrives to for [place] physical . History of Present Illness Patient presents for a pre-employment physical. She is cleared for work. Exam is normal. See scanned document. PSYCHIATRIC: Mood and affect appropriate. Health Status Allergies: Allergic Reactions (Selected) No known allergies. Past Medical/ Family/ Social History Medical history: No active or resolved past medical history items have been selected or recorded.. Surgical history: Cholecystectomy ([id number]). Hip replacement ([id number]). delivery ([id number]). Cardiac ablation system ([id number]).. Family history: No family history items have [...] 99 % Oxygen Therapy Room air . [facility] [address] 021 Urgent Care Record [facility] ? Urgent Care [address] [place] [address] PATIENT DISCHARGE INSTRUCTIONS Patient Information Name: MADDIE RAMAN Age: 25 Years Date of : 1995 Reason For Visit: Medical screening exam; [facility] Arrival Time: 02/18/2021 13:01:04 Primary Care Physician: Provider, Unlisted Attending Physician: Adam Moncada PA-C Comment: Visit Diagnosis: Diagnoses This Visit Medical screening exam ([id number]) If you received any narcotics, sedation, or [...] and treatment you received today in the [facility] Urgent Care were for an urgent problem and are not intended as complete care. It is important for you to follow up with a doctor, nurse practitioner, or physician?s title assistant for ongoing care. If your symptoms [...] of medications post discharge. 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 lost charge card clerk/provider of your visit and for further instruction [...] Township PROGESTERONEon 05-25-2020 Progesterone 3.3 ng/mL Normal [facility] Comment on above: Result Comment: Foll icular phase 0.1 - 0.9 Luteal phase 1.8 - 23.9 Ovulation phase 0.1 - 12.0 First trimester 11.0 - 44.3 Second trimester 25.4 - 83.3 Third trimester 58.7 - 214.0 Postmenopausal 0.0 - 0.1 Performed By: #### P ROSA #### [facility] [address] [place], [place] [address] Sebastiansam Ordoñez Hgb/Hcton 02-22-2019 Hematocrit (Bld) [Volume fraction] 28.7 % Low 36-46 [facility] Comment on above: Performed By: #### H H #### [facility] [address] [place] [address] Manager Business: Remy Haq DO Hemoglobin (Bld) [Mass/Vol] 9.4 g/dL Low 12.0-16.0 [facility] Comment on above: Performed By: #### H H #### [facility] [address] [place] [address] Manager Business: Remy Haq DO Basic Metabolic Profon 02-20 (cont.) Normal [facility] Comment on above: Result Comment: Aver age GFR for 20-29 years old: 116 mL/min/1.73sq m Chronic Kidney Disease: <60 mL/min/1.73sq m Kidney failure: <15 mL/min/1.73sq m eGFR calculated using average adult body mass. Additional eGFR calculator available at: http://www.adQuota/multiple_crcl_2011.htm Performed By: #### Joy YUN, BMP #### [facility] [address] [facility] [place] [address] Manager Business: Remy Haq DO Anion gap [Moles/Vol] 13 mmol/L Normal 9-17 [facility] Comment on above: Performed By: #### Joy YUN, BMP #### [facility] [address] [facility] [place] [address] Manager Business: Remy Haq DO Calcium [Mass/Vol] 8.8 mg/dL Normal 8.6-10.4 [facility] Comment on above: Performed By: #### Joy YUN, BMP #### [facility] [address] [facility] [place] [address] Manager Business: Remy Haq DO Chloride [Moles/Vol] 103 mmol/L Normal 98-107 [facility] Comment on above: Performed By: #### Joy YUN, BMP #### [facility] [address] [facility] [place] [address] Manager Business: Remy Haq DO CO2 [Moles/Vol] 25 mmol/L Normal 20-31 [facility] Comment on above: Performed By: #### C BC, BMP #### [facility] [address] [place] [address] Manager Business: Remy Haq DO Creatinine [Mass/Vol] 0.72 mg/dL Normal 0.50-0.90 [facility] Comment on above: Performed By: #### C BC, BMP #### [facility] [address] [place] [address] Manager Business: Remy Haq, DO GFR, Amer >60 Normal >60 [facility] Comment on above: Performed By: #### C BC, BMP #### [facility] [address] [place] [address] Manager Business: Remy Haq DO GFR,non Amer >60 Normal >60 [facility] Comment on above: Performed By: #### C BC, BMP #### [facility] [address] [place] [address] Manager Business: Remy Haq DO Glucose [Mass/Vol] 96 mg/dL Normal 70-99 [facility] Comment on above: Performed By: #### C BC, BMP #### [facility] [address] [place] [address] Manager Business: Remy Haq DO Potassium [Moles/Vol] 4.0 mmol/L Normal 3.7-5.3 [facility] Comment on above: Performed By: #### C BC, BMP #### [facility] [address] [place] [address] Manager Business: Remy Haq DO Sodium [Moles/Vol] 141 mmol/L Normal 135-144 [facility] Comment on above: Performed By: #### C BC, BMP #### [facility] [address] [facility] [place] [address] Manager Business: Remy Haq DO Urea nitrogen [Mass/Vol] 10 mg/dL Normal 6-20 [facility] Comment on above: Performed By: #### C JAMA, BMP #### [facility] [address] [facility] [place] [address] Manager Business: Remy Haq DO BUN/CRE Ratio NOT REPORTED Normal -20 [facility] Comment on above: Performed By: #### Joy YUN, BMP #### [facility] [facility] [place] [address] Manager Business: Remy Haq DO Staging: NOT REPORTED Normal [facility] Comment on above: Performed By: #### Joy YUN, BMP #### [facility] [address] [place] [address] Manager Business: Remy Haq DO CBCon 02-20-2019 Erythrocyte distribution width (RBC) [Ratio] 16.5 % High 11.5-14.9 [facility] Comment on above: Performed By: #### Joy YUN, BMP #### [facility] [address] [place] [address] Manager Business: Remy Haq DO Hematocrit (Bld) [Volume fraction] 25.9 % Low 36-46 [facility] Comment on above: Performed By: #### C JAMA, BMP #### [facility] [address] [place] [address] Manager Business: Remy Haq DO Hemoglobin (Bld) [Mass/Vol] 8.6 g/dL Low 12.0-16.0 [facility] Comment on above: Performed By: #### Joy YUN, BMP #### [facility] [address] [place] [address] Manager Business: Remy Haq DO MCH (RBC) [Entitic mass] 28.2 pg Normal 26-34 [facility] Comment on above: Performed By: #### Joy YUN, BMP #### [facility] [place] [address] Manager Business: Remy Haq DO MCHC (RBC) [Mass/Vol] 33.0 g/dL Normal 31-37 [facility] Comment on above: Performed By: #### Joy YUN, BMP #### [facility] [address] [place] [address] Manager Business: Remy Haq DO MCV (RBC) [Entitic vol] 85.4 fL Normal 80-100 [facility] Comment on above: Performed By: #### Joy YUN, BMP #### [facility] [address] [place] [address] Manager Business: Remy Haq DO Platelet mean volume (Bld) [Entitic vol] 6.7 fL Normal 6.0-12.0 [facility] Comment on above: Performed By: #### Joy YUN, BMP #### [facility] [address] [place] [address] Manager Business: Remy Haq DO Platelets (Bld) [#/Vol] 419 10*3/uL Normal 150-450 [facility] Comment on above: Performed By: #### Joy YUN, BMP #### [facility] [address] [place] [address] Manager Business: Remy Haq DO RBC (Bld) [#/Vol] 3.03 10*6/uL Low 4.0-5.2 [facility] Comment on above: Performed By: #### Joy YUN, BMP #### [facility] [address] [place] [address] Manager Business: Remy Haq DO WBC (Bld) [#/Vol] 6.3 10*3/uL Normal 3.5-11.0 [facility] Comment on above: Performed By: #### C BC, BMP #### [facility] [address] [place] [address] Manager Business: Remy Haq DO NRBC Automated NOT REPORTED Normal [facility] Comment on above: Performed By: #### C BC, BMP #### [facility] [address] [place] [address] Manager Business: Remy Haq DO Hgb/Hcton 02-20-2019 Hematocrit (Bld) [Volume fraction] 29.6 % Low 3646 [facility] Comment on above: Performed By: #### H H #### [facility] [place] [address] Manager Business: Remy Haq DO Hemoglobin (Bld) [Mass/Vol] 9.7 g/dL Low 12.0-16.0 [facility] Comment on above: Performed By: #### H H #### [facility] [place] [address] Manager Business: Remy Haq DO CBCon 02-19-2019 Erythrocyte distribution width (RBC) [Ratio] 16.6 % High 11.5-14.9 [facility] Comment on above: Performed By: #### C BC #### [facility] [place] [address] Manager Business: Remy Haq DO Hematocrit (Bld) [Volume fraction] 23.2 % Low 36-46 [facility] Comment on above: Performed By: #### C BC #### [facility] [place] [address] Manager Business: Remy Haq DO Hemoglobin (Bld) [Mass/Vol] 7.6 g/dL Low 12.0-16.0 [facility] Comment on above: Performed By: #### C BC #### [facility] [address] [place] [address] Manager Business: Remy Haq DO MCH (RBC) [Entitic mass] 27.8 pg Normal 26-34 [facility] Comment on above: Performed By: #### C BC #### [facility] [address] [place] [address] Manager Business: Remy Haq DO MCHC (RBC) [Mass/Vol] 32.7 g/dL Normal 31-37 [facility] Comment on above: Performed By: #### C BC #### [facility] [address] [place] [address] Manager Business: Remy Haq DO MCV (RBC) [Entitic vol] 85.0 fL Normal 80-100 [facility] Comment on above: Performed By: #### C BC #### [facility] [address] [place] [address] Manager Business: Remy Haq DO Platelet mean volume (Bld) [Entitic vol] 6.5 fL Normal 6.0-12.0 [facility] Comment on above: Performed By: #### C BC #### [facility] [place] [address] Manager Business: Remy Haq DO Platelets (Bld) [#/Vol] 444 10*3/uL Normal 150-450 [facility] Comment on above: Performed By: #### C BC #### [facility] [place] [address] Manager Business: Remy Haq DO RBC (Bld) [#/Vol] 2.73 10*6/uL Low 4.0-5.2 [facility] Comment on above: Performed By: #### C BC #### [facility] [address] [facility] [place] [address] Manager Business: Remy Haq DO WBC (Bld) [#/Vol] 5.1 10*3/uL Normal 3.5-11.0 [facility] Comment on above: Performed By: #### C BC #### [facility] [address] [place] [address] Manager Business: Remy Haq DO NRBC Automated NOT REPORTED Normal [facility] Comment on above: Performed By: #### C BC #### [facility] [address] [place] [address] Manager Business: Remy Haq DO Type + Crossmatchon 02-20-20 19 Type + Crossmatch Sample Expiration 02/22/2019 Arm Band Number [id number] ABO/Rh(D) A POSITIVE Antibody Screen NEGATIVE Blood Bank Comment Pt's ABRh confirmed as A POS:402 Results Verified BLANCHE, Polyspecific NEGATIVE BLANCHE, Anti-IgG [place] Serum NEGATIVE Antibody Ident Anti-[place](A) Present Unit Number [id number] Blood Component Type Leukocyte Reduced Red Cell Unit Division 00 Status of Unit TRANSFUSED Transfusion Status OK TO TRANSFUSE Crossmatch Result COMPATIBLE [facility] Comment on above: Performed By: #### T YX #### [facility] [address] [place] [address] Manager Business: Remy Haq DO Basic Metab w/rfx MGon 02-16 (cont.) [facility] Comment on above: Result Comment: Aver age GFR for 20-29 years old: 116 mL/min/1.73sq m Chronic Kidney Disease: <60 mL/min/1.73sq m Kidney failure: <15 mL/min/1.73sq m eGFR calculated using average adult body mass. Additional eGFR calculator available at: http://www.MonoSphere.com/multiple_crcl_2012.htm Performed By: #### B MPX, CBC #### [facility] [address] [place] [address] Manager Business: Remy Haq DO Anion gap [Moles/Vol] 11 mmol/L Normal 9-17 [facility] Comment on above: Performed By: #### B MPX, CBC #### [facility] [address] [facility] [place] [address] Manager Business: Remy Haq DO Calcium [Mass/Vol] 8.6 mg/dL Normal 8.6-10.4 [facility] Comment on above: Performed By: #### B MPX, CBC #### [facility] [place] [address] Manager Business: Remy Haq DO Chloride [Moles/Vol] 100 mmol/L Normal 98-107 [facility] Comment on above: Performed By: #### B EVERETTEX, CBC #### [facility] [place] [address] Manager Business: Remy Haq DO CO2 [Moles/Vol] 26 mmol/L Normal 20-31 [facility] Comment on above: Performed By: #### B MPX, CBC #### [facility] [address] [place] [address] Manager Business: Remy Haq DO Creatinine [Mass/Vol] 0.62 mg/dL Normal 0.50-0.90 [facility] Comment on above: Performed By: #### B MPX, CBC #### [facility] [address] [place] [address] Manager Business: Remy Haq DO GFR, Amer >60 Normal >60 [facility] Comment on above: Performed By: #### B MPX, CBC #### [facility] [address] [place] [address] Manager Business: Remy Haq DO GFR,non Amer >60 Normal >60 [facility] Comment on above: Performed By: #### B MPX, CBC #### [facility] [address] [place] [address] Manager Business: Remy Haq DO Glucose [Mass/Vol] 95 mg/dL Normal 70-99 [facility] Comment on above: Performed By: #### B MPX, CBC #### [facility] [address] [place] [address] Manager Business: Remy Haq DO Potassium [Moles/Vol] 4.2 mmol/L Normal 3.7-5.3 [facility] Comment on above: Performed By: #### B MPX, CBC #### [facility] [address] [place] [address] Manager Business: Remy Haq DO Sodium [Moles/Vol] 137 mmol/L Normal 135-144 [facility] Comment on above: Performed By: #### B MPX, CBC #### [facility] [place] [address] Manager Business: Remy Haq DO Urea nitrogen [Mass/Vol] 11 mg/dL Normal 6-20 [facility] Comment on above: Performed By: #### B MPX, CBC #### [facility] [address] [place] [address] Manager Business: Remy Haq DO BUN/CRE Ratio NOT REPORTED Normal 9-20 [facility] Comment on above: Performed By: #### B MPX, CBC #### [facility] [address] [place] [address] Manager Business: Remy Haq DO Staging: NOT REPORTED Normal [facility] Comment on above: Performed By: #### B MPX, CBC #### [facility] [address] [place] [address] Manager Business: Remy Haq DO CBCon 02-16-2019 Erythrocyte distribution width (RBC) [Ratio] 16.3 % High 11.5-14.9 [facility] Comment on above: Performed By: #### B MPX, CBC #### [facility] [address] [place] [address] Manager Business: Remy Haq DO Hematocrit (Bld) [Volume fraction] 22.4 % Low 36-46 [facility] Comment on above: Performed By: #### B MPX, CBC #### [facility] [address] [place], [place] [address] [place] [address] Manager Business: Remy Haq DO Hemoglobin (Bld) [Mass/Vol] 7.6 g/dL Low 12.0-16.0 [facility] Comment on above: Performed By: #### B MPX, CBC #### [facility] [address] [place] [address] Manager Business: Remy Haq DO MCH (RBC) [Entitic mass] 29.4 pg Normal 26-34 [facility] Comment on above: Performed By: #### B MPX, CBC #### [facility] [address] [place] [address] Manager Business: Remy Haq DO MCHC (RBC) [Mass/Vol] 33.8 g/dL Normal 31-37 [facility] Comment on above: Performed By: #### B MPX, CBC #### [facility] [address] [place] [address] Manager Business: Remy Haq DO MCV (RBC) [Entitic vol] 87.1 fL Normal 80-100 [facility] Comment on above: Performed By: #### B MPX, CBC #### [facility] [address] [place] [address] Manager Business: Remy Haq DO Platelet mean volume (Bld) [Entitic vol] 6.4 fL Normal 6.0-12.0 [facility] Comment on above: Performed By: #### B MPX, CBC #### [facility] [place] [address] Manager Business: Remy Haq DO Platelets (Bld) [#/Vol] 503 10*3/uL High 150-450 [facility] Comment on above: Performed By: #### B MPX, CBC #### [facility] [place] [address] Manager Business: Remy Haq DO RBC (Bld) [#/Vol] 2.57 10*6/uL Low 4.0-5.2 [facility] Comment on above: Performed By: #### B MPX, CBC #### [facility] [place] [address] Manager Business: Remy Haq DO WBC (Bld) [#/Vol] 7.5 10*3/uL Normal 3.5-11.0 [facility] Comment on above: Performed By: #### B MPX, CBC #### [facility] [place] [address] Manager Business: Remy Haq DO NRBC Automated NOT REPORTED Normal [facility] Comment on above: Performed By: #### B MPX, CBC #### [facility] [address] [place] [address] Manager Business: Remy Haq DO Basic Metabolic Panel w/ Ref savanah to MGon 02-15-2019 Anion gap [Moles/Vol] 14 mmol/L 9 - 17 mmol/L [place] Bun/Cre Ratio NOT REPORTED [place] Calcium [Mass/Vol] 8.4 mg/dL Low 8.6 - 10. 4 mg/dL [place] Chloride [Moles/Vol] 102 mmol/L 98 - 107 mmol/L [place] CO2 [Moles/Vol] 24 mmol/L 20 - 31 mmol/L [place] Creatinine [Mass/Vol] 0.57 mg/dL 0.5 - 0.9 mg/dL [place] GFR >60 >60 mL/min [place] GFR Non- >60 >60 mL/min [place] GFR/1.73 sq M predicted among non-blacks MDRD (S/P/Bld) [Vol rate/Area] [place] Comment on above: Average GFR for 20-2 9 years old: 116 mL/min/1.73sq m Chronic Kidney Disease: <60 mL/min/1.73sq m Kidney failure: <15 mL/min/1.73sq m eGFR calculated using average adult body mass. Additional eGFR calculator available at: http://www.MonoSphere.Lolay/multiple_crcl_2012.htm GFR/1.73 sq M predicted among non-blacks MDRD (S/P/Bld) [Vol rate/Area] NOT REPORTED [place] Glucose [Mass/Vol] 106 mg/dL High 70 - 99 mg/dL [place], [place] Interpretation and review of laboratory results Abnormal [place] Potassium [Moles/Vol] 4.0 mmol/L 3.7 - 5.3 mmol/L [place] Sodium [Moles/Vol] 140 mmol/L 135 - 144 mmol/L [place] Urea nitrogen [Mass/Vol] 11 mg/dL 6 - 20 mg/dL [place] CBC WITH AUTO DIFFERENTIALon 02-15-2019 Basophils (Bld) [#/Vol] 0.06 10*3/uL [place] Basophils/100 WBC (Bld) 1 % 0 - 2 % [place] Differential Type NOT REPORTED [place] Eosinophils (Bld) [#/Vol] 0.33 10*3/uL [place] Eosinophils/100 WBC (Bld) 5 % High 1 - 4 % [place] Erythrocyte distribution width (RBC) [Ratio] 15.3 % High 11.8 - 14.4 % [place] Hematocrit (Bld) [Volume fraction] 24.9 % Low 36.3 - 47.1 % [place] Hemoglobin (Bld) [Mass/Vol] 7.5 g/dL Low 11.9 - 15.1 g/dL [place] Immature granulocytes (Bld) [#/Vol] 1 % High 0 [place] Immature granulocytes (Bld) [#/Vol] 0.10 10*3/uL [place] Interpretation and review of laboratory results Abnormal [place] Lymphocytes (Bld) [#/Vol] 1.93 10*3/uL [place] Lymphocytes/100 WBC (Bld) 27 % 24 - 43 % [place] MCH (RBC) [Entitic mass] 28.2 pg 25.2 - 33.5 pg [place] MCHC (RBC) [Mass/Vol] 30.1 g/dL 28.4 - 34.8 g/dL [place] MCV (RBC) [Entitic vol] 93.6 fL 82.6 - 102.9 fL [place] Monocytes (Bld) [#/Vol] 0.60 10*3/uL [place] Monocytes/100 WBC (Bld) 8 % 3 - 12 % [place] Platelet mean volume (Bld) [Entitic vol] 9.0 fL 8.1 - 13.5 fL [place] Platelets (Bld) [#/Vol] 458 10*3/uL High [place] Platelets (Bld) [#/Vol] NOT REPORTED [place] RBC (Bld) [#/Vol] 2.66 10*6/uL Low 3.95 - 5.1 1 m/uL [place] RBC morphology finding Nom (Bld) ANISOCYTOSIS PRESENT [place], [place] Segmented neutrophils/100 WBC (Bld) 58 % 36 - 65 % [place] Segs Absolute 4.19 [place] WBC (Bld) [#/Vol] 7.2 10*3/uL [place] WBC (Bld) [#/Vol] 0.0 10*3/uL 0.0 per 10 0 WBC [place] WBC Morphology NOT REPORTED [place] Basic Metabolic Panel w/ Ref savanah to MGon 02-13-2019 Anion gap [Moles/Vol] 13 mmol/L 9 - 17 mmol/L [place] Bun/Cre Ratio NOT REPORTED [place], [place] Calcium [Mass/Vol] 8.5 mg/dL Low 8.6 - 10. 4 mg/dL [place] Chloride [Moles/Vol] 105 mmol/L 98 - 107 mmol/L [place] CO2 [Moles/Vol] 23 mmol/L 20 - 31 mmol/L [place] Creatinine [Mass/Vol] 0.46 mg/dL Low 0.5 - 0.9 mg/dL [place] GFR >60 >60 mL/min [place] GFR Non- >60 >60 mL/min [place] GFR/1.73 sq M predicted among non-blacks MDRD (S/P/Bld) [Vol rate/Area] NOT REPORTED [place] GFR/1.73 sq M predicted among non-blacks MDRD (S/P/Bld) [Vol rate/Area] [place] Comment on above: Average GFR for 20-2 9 years old: 116 mL/min/1.73sq m Chronic Kidney Disease: <60 mL/min/1.73sq m Kidney failure: <15 mL/min/1.73sq m eGFR calculated using average adult body mass. Additional eGFR calculator available at: http://www.adQuota/multiple_crcl_2012.htm Glucose [Mass/Vol] 86 mg/dL 70 - 99 mg/dL [place], [place] Interpretation and review of laboratory results Abnormal [place] Potassium [Moles/Vol] 4.3 mmol/L 3.7 - 5.3 mmol/L [place] Sodium [Moles/Vol] 141 mmol/L 135 - 144 mmol/L [place] Urea nitrogen [Mass/Vol] 9 mg/dL 6 - 20 mg/dL [place] CBC WITH AUTO DIFFERENTIALon 02-13-2019 Basophils (Bld) [#/Vol] 0.06 10*3/uL [place] Basophils/100 WBC (Bld) 1 % 0 - 2 % [place] Differential Type NOT REPORTED [place] Eosinophils (Bld) [#/Vol] 0.40 10*3/uL [place] Eosinophils/100 WBC (Bld) 5 % High 1 - 4 % [place] Erythrocyte distribution width (RBC) [Ratio] 14.8 % High 11.8 - 14.4 % [place] Hematocrit (Bld) [Volume fraction] 25.0 % Low 36.3 - 47.1 % [place] Hemoglobin (Bld) [Mass/Vol] 7.4 g/dL Low 11.9 - 15.1 g/dL [place] Immature granulocytes (Bld) [#/Vol] 2 % High 0 [place] Immature granulocytes (Bld) [#/Vol] 0.14 10*3/uL [place] Interpretation and review of laboratory results Abnormal [place] Lymphocytes (Bld) [#/Vol] 2.18 10*3/uL [place] Lymphocytes/100 WBC (Bld) 25 % 24 - 43 % [place] MCH (RBC) [Entitic mass] 27.1 pg 25.2 - 33.5 pg [place] MCHC (RBC) [Mass/Vol] 29.6 g/dL 28.4 - 34.8 g/dL [place] MCV (RBC) [Entitic vol] 91.6 fL 82.6 - 102.9 fL [place] Monocytes (Bld) [#/Vol] 0.66 10*3/uL [place] Monocytes/100 WBC (Bld) 8 % 3 - 12 % [place] Platelet mean volume (Bld) [Entitic vol] 8.9 fL 8.1 - 13.5 fL [place] Platelets (Bld) [#/Vol] 440 10*3/uL [place] Platelets (Bld) [#/Vol] NOT REPORTED [place] RBC (Bld) [#/Vol] 2.73 10*6/uL Low 3.95 - 5.1 1 m/uL [place] RBC morphology finding Nom (Bld) ANISOCYTOSIS PRESENT [place], [place] Segmented neutrophils/100 WBC (Bld) 61 % 36 - 65 % [place] Segs Absolute 5.37 [place] WBC (Bld) [#/Vol] 0.0 10*3/uL 0.0 per 10 0 WBC [place] WBC (Bld) [#/Vol] 8.8 10*3/uL [place] WBC Morphology NOT REPORTED [place] ECHO Complete 2D W Doppler W Coloron 02-13-2019 Transthoracic Echocardiography Report (TTE) Patient Name CECI PERKINS Date of Study 02/13/2019 C Date of 1995 Gender Female Age 23 year(s) Race Unknown Room Number 0240 Height: 65 inch, 165.1 cm Corporate ID [id number] Weight: 301 pounds, 136.5 kg # Patient Acct [id number] BSA: 2.35 m^2 BMI: 50.09 kg/m^2 # MR # [id number] [employer] Operator Kaylen Jasso Interpreting Physician Anthony Keating Fellow Referring Nurse Practitioner Interpreting Referring Physician MICHAEL MURDOCK MD Fellow Type of Study TTE procedure:2D Echocardiogram, M-Mode, Doppler, Color Doppler. Procedure Date Date: 02/13/2019 Start: 08:48 AM Study Location: [facility] Technical Quality: Adequate visualization Indications:Irregula r Heart [...] No significant pericardial effusion is seen. Signature FINDINGS Left Atrium Left atrium is normal [...] Wall E' velocity:0.17 m/s Lateral Wall E/E':5.8 [facility] [place], [place] Tamir, Mhpn Incoming Cardio Results From [facility] - 02/13/2019 2:01 PM EDT Transthoracic Echocardiography Report (TTE) Patient Name CECI PERKINS Date of Study 02/13/2019 C Date of 1995 Gender Female Age 23 year(s) Race Unknown Room Number 0240 Height: 65 inch, 165.1 cm Corporate ID [id number] Weight: 301 pounds, 136.5 kg # Patient Acct [id number] BSA: 2.35 m^2 BMI: 50.09 kg/m^2 # MR # [id number] [employer] Operator Kaylen Jasso Interpreting Physician Anthony Keating Fellow Referring Nurse Practitioner Interpreting Referring Physician MICHAEL MURDOCK MD Fellow Type of Study TTE procedure:2D Echocardiogram, M-Mode, Doppler, Color Doppler. Procedure Date Date: 02/13/2019 Start: 08:48 AM Study Location: [facility] Technical Quality: Adequate visualization Indications:Irregula r Heart [...] significant pericardial effusion is seen. Signature - Electronically signed by Anthony Keating([facility] physician) on 02/13/2019 02:00 PM - - - FINDINGS Left Atrium Left [...] Wall E' velocity:0.17 m/s Lateral Wall E/E':5.8 [facility] App EKG 12 Leadon 02-11-2019 Atrial Rate 99 BPM [facility] Charlie App P [place] 69 degrees [facility], Charlie App P-R Interval 136 ms [facility] [employer] [place], Charlie App Q-T Interval 344 ms [facility] [email or web address], Charlie App QRS Duration 80 ms [facility] [place] QTc Calculation (Bazett) 441 ms [facility] [employer] [place], [place] App R [place] 16 degrees [facility] [place] T [place] 4 degrees [facility], [place] Ventricular Rate 99 BPM [facility] [place], [place] Tamir, Mhpn Incoming Ekg Results From [facility] - 02/11/2019 11:00 AM EDT Normal sinus rhythm Cannot rule out Anterior infarct , age undetermined Abnormal ECG When compared with ECG of 31-JAN-2019 19:55, No significant change was found [place] Normal sinus rhythm Cannot rule out Anterior infarct , age undetermined Abnormal ECG When compared with ECG of 31-JAN-2019 19:55, No significant change was found [place] HEMOGLOBIN AND HEMATOCRIT, B LOODon 02-11-2019 Hematocrit (Bld) [Volume fraction] 27.0 % Low 36.3 - 47.1 % [place] Hemoglobin (Bld) [Mass/Vol] 8.3 g/dL Low 11.9 - 15.1 g/dL [place] Interpretation and review of laboratory results Abnormal [place] Microscopic Urinalysison Amorphous, UA NOT REPORTED None [place], [place] Bacteria, UA NOT REPORTED None [place], [place] Casts UA [place] Crystals UA NOT REPORTED None /HPF [place] Epithelial Cells UA 0 TO 2 [place] Mucus, UA NOT REPORTED None [place], [place] Other Observations UA NOT REPORTED NOT REQ. [place] RBC (U) [#/Vol] 5 TO 10 [place], [place] Comment on above: Reference range defi xiomy for non-centrifuged specimen. Renal Epithelial, Urine NOT REPORTED 0 /HPF [place] Trichomonas, UA NOT REPORTED None [place] WBC, UA TOO NUMEROUS TO COUNT [place] Yeast, UA NOT REPORTED None [place], [place] - [place] URINALYSISon 02-11-2019 Bilirubin Urine Negative NEGATIVE [place], [place] Color, UA YELLOW YELLOW [place] Glucose, Ur Negative NEGATIVE [place] Interpretation and review of laboratory results Abnormal [place] Ketones Ql (U) Negative NEGATIVE [place] Leukocyte esterase Test strip Ql (U) LARGE Abnormal NEGATIVE [place] Nitrite, Urine Negative NEGATIVE [place] pH, UA 5.0 [place] Protein (U) [Mass/Vol] Negative NEGATIVE [place] Specific [place], UA 1.013 [place] Turbidity UA CLOUDY Abnormal CLEAR [place] Urinalysis Comments NOT REPORTED [place], [place] Urine Hgb MODERATE Abnormal NEGATIVE [place] Urobilinogen, Urine Normal Normal [place] HEMOGLOBIN AND HEMATOCRIT, B LOODon 02-10-2019 Hematocrit (Bld) [Volume fraction] 22.5 % Low 36.3 - 47.1 % [place] Hemoglobin (Bld) [Mass/Vol] 6.8 g/dL Critically low 11.9 - 15.1 g/dL [place] Interpretation and review of laboratory results Abnormal [place] TYPE AND SCREENon 02-10-2019 ABO/Rh Positive [place], [place] Arm Band Number [id number] [place], [place] Blood product type Nom (BPU) Leukocyte Reduced Red Cell [place] Crossmatch Result COMPATIBLE [facility] Jasmin [place] Dispense Status TRANSFUSED [place], [place] Expiration Date 02/10/2019 [place], [place] Transfusion Status OK TO TRANSFUSE [place] Unit Divison 0 [place], [place] Unit Number [id number] [place] CT PELVIS WO CONTRAST Additi onal Contrast? Noneon 02-09-2019 Tamir, pn Incoming Radiant Results From [facility] - 02/09/2019 12:47 PM EDT EXAMINATION: CT [...] extends anterior to the inferior pubic ramus. [facility] EXAMINATION: CT OF THE PELVIS WITHOUT CONTRAST [...] chris edema and small foci of air. [facility] 1. Improved alignment of the right posterior wall acetabular fracture status post ORIF. 2. Small intra-articular right hip loose bodies. 3. The long screw extends anterior to the inferior pubic ramus. [facility] HEMOGLOBIN AND HEMATOCRIT, Adam Campbell 02-09-2019 Hematocrit (Bld) [Volume fraction] 19.2 % Low 36.3 - 47.1 % [place] Hemoglobin (Bld) [Mass/Vol] 5.9 g/dL Critically low 11.9 - 15.1 g/dL [place] Comment on above: TEST CONFIRMED Interpretation and review of laboratory results Abnormal [place] Hematocrit (Bld) [Volume fraction] 21.2 % Low 36.3 - 47.1 % [place] Hemoglobin (Bld) [Mass/Vol] 6.6 g/dL Critically low 11.9 - 15.1 g/dL [place] Comment on above: TEST CONFIRMED Interpretation and review of laboratory results Abnormal [place] Hematocrit (Bld) [Volume fraction] 23.6 % Low 36.3 - 47.1 % [place] Hemoglobin (Bld) [Mass/Vol] 7.2 g/dL Low 11.9 - 15.1 g/dL [place] Interpretation and review of laboratory results Abnormal [place] CV HGB/HCTon 02-08-2019 Hematocrit (Bld) [Volume fraction] 24.4 % [place] Hemoglobin (Bld) [Mass/Vol] 7.8 g/dL gm/dL [place] POCT urine pregnancyon 02-08 Beta HCG ( test) Ql (U) Negative NEGATIVE [place] Comment on above: Specimens with hCG [...] 02-08-2019 Tamir, Mhpn Incoming Radiant Results From [facility] - 02/08/2019 1:24 PM EDT EXAMINATION: THREE XRAY VIEWS OF THE RIGHT FOOT 02/08/2019 1:12 pm COMPARISON: Right ankle radiographs February 01, 2019 HISTORY: ORDERING SYSTEM PROVIDED HISTORY: Trauma/Fracture TECHNOLOGIST PROVIDED HISTORY: Trauma/Fracture FINDINGS: No fracture or dislocation. IMPRESSION: No acute osseous abnormality [place] EXAMINATION: THREE XRAY VIEWS OF THE RIGHT FOOT 02/08/2019 1:12 pm COMPARISON: Right ankle radiographs February 01, 2019 HISTORY: ORDERING SYSTEM PROVIDED HISTORY: Trauma/Fracture TECHNOLOGIST PROVIDED HISTORY: Trauma/Fracture FINDINGS: No fracture or dislocation. [facility] BLAINE KELSEY No acute osseous abnormality [facility] BLAINE KELSEY XR PELVIS (MIN 3 VIEWS)on EXAMINATION: ONE XRAY VIEW OF THE PELVIS 02/08/2019 12:48 pm COMPARISON: 01/31/2019 HISTORY: ORDERING SYSTEM PROVIDED HISTORY: AP,Judets. Post op pacu TECHNOLOGIST PROVIDED HISTORY: AP,Judets. Post op pacu FINDINGS: Status post internal fixation of the right acetabulum. Anatomic alignment. No hardware complications. [facility] BLAINE KELSEY Tamir, Mhpn Incoming Radiant Results [...] post internal fixation of the right acetabulum [facility] BLAINE KELSEY Anatomic alignment status post internal fixation of the right acetabulum [facility] BLAINE KELSEY Tamir, Mhpn Incoming Radiant Results [...] fluoroscopic image of pelvis as described above. [facility] BLAINE KELSEY EXAMINATION: ONE XRAY VIEW OF THE PELVIS 02/08/2019 12:39 pm COMPARISON: January 31, 2019 HISTORY: ORDERING SYSTEM PROVIDED HISTORY: intra op TECHNOLOGIST PROVIDED HISTORY: intra op FINDINGS: Intraoperative fluoroscopic image of pelvis demonstrates ORIF of right acetabular fracture with plate and screws, likely in gross anatomic alignment. A Crawley catheter is in place. [place] Intraoperative fluoroscopic image of pelvis as described above. [place] XR WRIST LEFT (MIN 3 VIEWS)o n 02-08-2019 1. Overlying cast/splint material limits evaluation of fine osseous detail. 2. Anatomic alignment of known transversely oriented nondisplaced distal left radius metaphyseal fracture after reduction. 3. No superimposed acute osseous abnormality identified. 4. Soft tissue swelling about the left wrist/distal left forearm. [place] Tamir, Mhpn Incoming Radiant Results From [facility] - 02/08/2019 6:06 PM EDT EXAMINATION: 3 [...] swelling about the left wrist/distal left forearm. [place] EXAMINATION: 3 XRAY VIEWS OF THE [...] the left wrist and distal left forearm. [place] BASIC METABOLIC PANELon 01-20 Anion gap [Moles/Vol] 12 mmol/L 9 - 17 mmol/L [place] Bun/Cre Ratio NOT REPORTED [facility], [place] Calcium [Mass/Vol] 8.5 mg/dL Low 8.6 - 10. 4 mg/dL [place] Chloride [Moles/Vol] 102 mmol/L 98 - 107 mmol/L [place] CO2 [Moles/Vol] 24 mmol/L 20 - 31 mmol/L [place] Creatinine [Mass/Vol] 0.54 mg/dL 0.5 - 0.9 mg/dL [place] GFR >60 >60 mL/min [place] GFR Non- >60 >60 mL/min [place] GFR/1.73 sq M predicted among non-blacks MDRD (S/P/Bld) [Vol rate/Area] NOT REPORTED [place] GFR/1.73 sq M predicted among non-blacks MDRD (S/P/Bld) [Vol rate/Area] [place] Comment on above: Average GFR for 20-2 9 years old: 116 mL/min/1.73sq m Chronic Kidney Disease: <60 mL/min/1.73sq m Kidney failure: <15 mL/min/1.73sq m eGFR calculated using average adult body mass. Additional eGFR calculator available at: http://www.adQuota/multiple_crcl_2012.htm Glucose [Mass/Vol] 95 mg/dL 70 - 99 mg/dL [place], [place] Interpretation and review of laboratory results Abnormal [place] Potassium [Moles/Vol] 4.6 mmol/L 3.7 - 5.3 mmol/L [place] Sodium [Moles/Vol] 138 mmol/L 135 - 144 mmol/L [place] Urea nitrogen [Mass/Vol] 14 mg/dL 6 - 20 mg/dL [place] BLOOD BANK SPECIMENon 2018 Blood Bank Specimen NOT REPORTED [place], [place] CBCon 02-07-2019 Erythrocyte distribution width (RBC) [Ratio] 13.5 % 11.8 - 14.4 % [place] Hematocrit (Bld) [Volume fraction] 28.1 % Low 36.3 - 47.1 % [place] Hemoglobin (Bld) [Mass/Vol] 8.4 g/dL Low 11.9 - 15.1 g/dL [place] Interpretation and review of laboratory results Abnormal [place] MCH (RBC) [Entitic mass] 26.7 pg 25.2 - 33.5 pg [place] MCHC (RBC) [Mass/Vol] 29.9 g/dL 28.4 - 34.8 g/dL [place] MCV (RBC) [Entitic vol] 89.2 fL 82.6 - 102.9 fL [place] Platelet mean volume (Bld) [Entitic vol] 8.6 fL 8.1 - 13.5 fL [place] Platelets (Bld) [#/Vol] 555 10*3/uL High [place] RBC (Bld) [#/Vol] 3.15 10*6/uL Low 3.95 - 5.1 1 m/uL [place] WBC (Bld) [#/Vol] 0.0 10*3/uL 0.0 per 10 0 WBC [place] WBC (Bld) [#/Vol] 8.0 10*3/uL [place] HEMOGLOBIN AND HEMATOCRIT, B LOLerna 02-05-2019 Hematocrit (Bld) [Volume fraction] 28.8 % Low 36.3 - 47.1 % [place] Hemoglobin (Bld) [Mass/Vol] 8.6 g/dL Low 11.9 - 15.1 g/dL [place] Interpretation and review of laboratory results Abnormal [place] Basic Metabolic Panel w/ Ref savanah to MGon 02-04-2019 Anion gap [Moles/Vol] 11 mmol/L 9 - 17 mmol/L [place] Bun/Cre Ratio NOT REPORTED [place], [place] Calcium [Mass/Vol] 8.5 mg/dL Low 8.6 - 10. 4 mg/dL [place] Chloride [Moles/Vol] 108 mmol/L High 98 - 107 mmol/L [place] CO2 [Moles/Vol] 23 mmol/L 20 - 31 mmol/L [place] Creatinine [Mass/Vol] 0.52 mg/dL 0.5 - 0.9 mg/dL [place] GFR >60 >60 mL/min [place] GFR Non- >60 >60 mL/min [place] GFR/1.73 sq M predicted among non-blacks MDRD (S/P/Bld) [Vol rate/Area] NOT REPORTED [place] GFR/1.73 sq M predicted among non-blacks MDRD (S/P/Bld) [Vol rate/Area] [place] Comment on above: Average GFR for 20-2 9 years old: 116 mL/min/1.73sq m Chronic Kidney Disease: <60 mL/min/1.73sq m Kidney failure: <15 mL/min/1.73sq m eGFR calculated using average adult body mass. Additional eGFR calculator available at: http://www.adQuota/multiple_crcl_2012.htm Glucose [Mass/Vol] 93 mg/dL 70 - 99 mg/dL [place], [place] Interpretation and review of laboratory results Abnormal [place] Potassium [Moles/Vol] 4.7 mmol/L 3.7 - 5.3 mmol/L [place] Sodium [Moles/Vol] 142 mmol/L 135 - 144 mmol/L [place] Urea nitrogen [Mass/Vol] 9 mg/dL 6 - 20 mg/dL [place] CBCon 02-04-2019 Erythrocyte distribution width (RBC) [Ratio] 13.6 % 11.8 - 14.4 % [place] Hematocrit (Bld) [Volume fraction] 28.6 % Low 36.3 - 47.1 % [place] Hemoglobin (Bld) [Mass/Vol] 8.4 g/dL Low 11.9 - 15.1 g/dL [place] Interpretation and review of laboratory results Abnormal [place] MCH (RBC) [Entitic mass] 27.5 pg 25.2 - 33.5 pg [place] MCHC (RBC) [Mass/Vol] 29.4 g/dL 28.4 - 34.8 g/dL [place] MCV (RBC) [Entitic vol] 93.5 fL 82.6 - 102.9 fL [place] Platelet mean volume (Bld) [Entitic vol] 9.1 fL 8.1 - 13.5 fL [place] Platelets (Bld) [#/Vol] 622 10*3/uL High [place] RBC (Bld) [#/Vol] 3.06 10*6/uL Low 3.95 - 5.1 1 m/uL [place] WBC (Bld) [#/Vol] 8.2 10*3/uL [place] WBC (Bld) [#/Vol] 0.0 10*3/uL 0.0 per 10 0 WBC [place] Basic Metabolic Panelon 01-19 Anion gap [Moles/Vol] 15 mmol/L 9 - 17 mmol/L [place] Bun/Cre Ratio NOT REPORTED [place], [place] Calcium [Mass/Vol] 6.8 mg/dL Low 8.6 - 10. 4 mg/dL [place] Chloride [Moles/Vol] 98 mmol/L 98 - 107 mmol/L [place] CO2 [Moles/Vol] 22 mmol/L 20 - 31 mmol/L [place] Creatinine [Mass/Vol] 0.52 mg/dL 0.5 - 0.9 mg/dL [place] GFR >60 >60 mL/min [place] GFR Non- >60 >60 mL/min [place] GFR/1.73 sq M predicted among non-blacks MDRD (S/P/Bld) [Vol rate/Area] [place] Comment on above: Average GFR for 20-2 9 years old: 116 mL/min/1.73sq m Chronic Kidney Disease: <60 mL/min/1.73sq m Kidney failure: <15 mL/min/1.73sq m eGFR calculated using average adult body mass. Additional eGFR calculator available at: http://www.MonoSphere.Lolay/multiple_crcl_2012.htm GFR/1.73 sq M predicted among non-blacks MDRD (S/P/Bld) [Vol rate/Area] NOT REPORTED [place] Glucose [Mass/Vol] 106 mg/dL High 70 - 99 mg/dL [place], [place] Interpretation and review of laboratory results Abnormal [place] Potassium [Moles/Vol] 3.4 mmol/L Low 3.7 - 5.3 mmol/L [place] Sodium [Moles/Vol] 135 mmol/L 135 - 144 mmol/L [place] Urea nitrogen [Mass/Vol] 4 mg/dL Low 6 - 20 mg/dL [place] Hemoglobin and hematocrit, b loodon 02-02-2019 Hematocrit (Bld) [Volume fraction] 26.1 % Low 36.3 - 47.1 % [place] Hemoglobin (Bld) [Mass/Vol] 8.2 g/dL Low 11.9 - 15.1 g/dL [place] Interpretation and review of laboratory results Abnormal [place] MAGNESIUMon 02-02-2019 Interpretation and review of laboratory results Abnormal [place] Magnesium [Mass/Vol] 5.3 mg/dL Critically high 1.6 - 2.6 mg/dL [place] Interpretation and review of laboratory results Abnormal [place] Magnesium [Mass/Vol] 4.9 mg/dL High 1.6 - 2.6 mg/dL [place] MRSA DNA Probe, Nasalon 01-19 MRSA, DNA, Nasal NEGATIVE: MRSA DNA not detected by nucleic acid amplification. NEGATIVE: MRSA DNA not detected by nucleic acid amplificati [place] Comment on above: Results should be used as an adjunct to nosocomial control efforts to identify patients needing enhanced precautions. The test is not intended to identify patients with staphylococcal infections. Results should not be used to guide or monitor treatment for MRSA infections. Specimen Description .NASAL SWAB [place] Otheron 02-02-2019 Tamir, [facility] Incoming Radiant Results From [employer] - 02/02/2019 9:43 PM EDT EXAMINATION: TWO [...] asymmetry of the knee joint as described. [place] No acute fracture of the left knee or left tibia/fibula Slight asymmetry of the knee joint as described. [place] EXAMINATION: TWO XRAY VIEWS OF THE [...] the lateral joint space at the knee. [place] POC Glucose Fingerstickon Glucose [Mass/Vol] 103 mg/dL 65 - 105 mg/dL [place] XR FEMUR RIGHT (MIN 2 VIEWS) on 02-02-2019 Tamir, [facility] Incoming Radiant Results From [employer] - 02/02/2019 4:29 PM EDT EXAMINATION: 2 [...] distal femoral diaphysis. 2. Comminuted acetabular fracture. [place] 1. Interval placement of a traction pin in the distal femoral diaphysis. 2. Comminuted acetabular fracture. [place] EXAMINATION: 2 XRAY VIEWS OF THE [...] but appears anatomic on the AP view. [place] CERVICAL SPINE WO CONTRAS Ton 02-01-2019 Tamir, [facility] Incoming Radiant Results From [employer] - 02/01/2019 1:47 AM EDT EXAMINATION: CT [...] No acute abnormality of the cervical spine. [place] No acute abnormality of the cervical spine. [place] EXAMINATION: CT OF THE CERVICAL SPINE [...] There is no prevertebral soft tissue swelling. [place] CYSTOGRAM W CONTRASTon No contrast [...] the posterior acetabular fracture on the right. [place] EXAMINATION: CT CYSTOGRAM 02/01/2019 6:46 am [...] earlier today. HISTORY: ORDERING SYSTEM PROVIDED HISTORY: [email or web address] TECHNOLOGIST PROVIDED HISTORY: Reason for Exam: r/o [...] within the inferior rectus musculature as well. [facility] [place], [place] Tamir, pn Incoming Radiant Results From [employer] - 02/01/2019 7:41 AM EDT EXAMINATION: CT [...] earlier today. HISTORY: ORDERING SYSTEM PROVIDED HISTORY: [email or web address] TECHNOLOGIST PROVIDED HISTORY: Reason for Exam: r/o [...] the posterior acetabular fracture on the right. [place] CT HEAD WO CONTRASTon 2018 EXAMINATION: CT OF THE HEAD WITHOUT CONTRAST 02/01/2019 1:09 am TECHNIQUE: CT of the head was performed without the administration of intravenous contrast. Dose modulation, iterative reconstruction, and/or weight based adjustment of the mA/kV was utilized to reduce the radiation dose to as low as reasonably achievable. COMPARISON: None. HISTORY: ORDERING SYSTEM PROVIDED HISTORY: [facility] [place]CHNOLOGIST PROVIDED HISTORY: FINDINGS: BRAIN/VENTRICLES: There is [...] of the visualized skull or soft tissues. [place] No acute intracranial abnormality. Paranasal sinus disease as above. No evidence of an air-fluid level. [place] Tamir, [facility] Incoming Radiant Results From [employer] - 02/01/2019 1:44 AM EDT EXAMINATION: CT [...] above. No evidence of an air-fluid level. [place] EKG 12 Leadon 02-01-2019 Atrial Rate 114 BPM [place] P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
[2023-12-17 17:47] VITALS: BP 120/74; PULSE 103; TEMP 36.9; O2SAT 100; BMI 38.3
--- NOTE | 2023-12-17 17:56 | CT_ITS ---
The [address] [address] Patient Name: MADDIE ORNELAS MRN: [id number] date: 1995 Sex: F Assigned Patient Location: ER Current Patient Location: ER Accession/Order Number: [id number] Exam Date: 12/17/2023 18:26 Report Date: 12/17/2023 19:46 At the request of: VICTORIANO MCKAY Procedure: CT lumbar spine wo con EXAM: CT lumbar spine wo con HISTORY: The patient is a 28-year-old female, lumbar radiculopathy COMPARISON: Radiographs from 12/16/2023. TECHNIQUE: CT images were obtained through the lumbar spine without intravenous contrast and reformatted in 2 dimensions. Dose reduction techniques were achieved by using automated exposure control and/or adjustment of mA and/or kV according to patient size and/or use of iterative reconstruction technique. FINDINGS: The axial images demonstrate no fractures or cortical discontinuities throughout the lumbar spine. The coronal and sagittal reformatted images demonstrate no fractures or loss of vertebral body height throughout the lumbar spine. There is no malalignment or disc space narrowing. The soft tissue images demonstrate evidence of a disc herniation at the L5-S1 level. This does not appear to cause central canal stenosis or significant neural foraminal narrowing, although it may contact the traversing S1 nerve root. If clinically necessary, the degree of central canal stenosis and neural foraminal narrowing could be better evaluated with an MRI of the lumbar spine. CT/CT lumbar spine wo con IMPRESSION: 1. No fractures or loss of vertebral body height throughout the lumbar spine. 2. Disc herniation at the L5-S1 level. Electronically authenticated by: PATT MCKENZIE Date: 12/17/2023 19:46
--- NOTE | 2023-12-17 18:14 | ED_ITS ---
HPI HPI - Back Pain/Injury General Chief Complaint: Back Pain/Injury Stated Complaint: Back Pain Time Seen by Provider: 12/17/23 17:39 Source: patient Mode of arrival: walk-in Limitations: no limitations History of Present Illness HPI Narrative: Patient is a 28-year-old female who returns to the emergency department for continued pain in the low back with new radiation to the lower extremities. She was seen in this emergency department yesterday after bending over and feeling a pop in her low back. She states she had unremarkable x-rays and was prescribed Flexeril. She returns to the ER today with worsening pain into the legs and occasional tingling. She was noted to be ambulatory into her exam room. She denies urinary symptoms. She is not concerned for . Related Data Previous Rx's ?Medication ?Instructions ?Recorded albuterol sulfate 90 mcg/actuation 2 inh inhalation Q4H PRN shortness 12/06/23 aerosol inhaler of breath or wheezing #8.5 grams hydroxyzine HCl 25 mg tablet 25 mg PO Q6H PRN itching #20 tabs 12/06/23 prednisone 20 mg tablet See Rx Instructions .Route 12/06/23 .COMPLEX #12 tabs ketorolac 10 mg tablet 10 mg PO TID PRN pain #10 tabs 12/17/23 methocarbamol 750 mg tablet 750 mg PO TID PRN pain #20 tabs 12/17/23 methylprednisolone 4 mg tablets in See Rx Instructions .Route 12/17/23 a dose pack (Medrol (Carlos)) .COMPLEX #21 ea Allergies Allergy/AdvReac Type Severity Reaction Status Date / Time No Known Drug Allergies Allergy Verified 12/17/23 17:54 Opioid HPI Opioid Management Most Recent Opioid Data: Last Pain Scale 7 12/17/23 19:29 Last ED Pain Assessment 12/17/23 19:29 Last MAR Pain Assessment 12/17/23 18:34 Review of Systems ROS Constitutional Denies: fever or chills Ears, nose, mouth, and throat Denies: throat pain or nasal congestion Cardiovascular Denies: chest pain Respiratory Denies: shortness of breath or cough Gastrointestinal Denies: abdominal pain, nausea, vomiting or diarrhea Genitourinary Denies: urinary incontinence Musculoskeletal Reports: back pain and extremity pain; Denies: neck pain Integumentary/Breast Denies: rash Neurological Denies: headache Hematologic/Lymphatic Denies: easy bruising or easy bleeding Exam Narrative Exam Narrative: Gen.: Awake, alert, in no distress Head: Normocephalic, atraumatic ENT: Moist mucous membranes Respiratory: No respiratory distress Back: No bony point tenderness of the T-spine or L-spine with diffuse tenderness of the lumbar paraspinal areas and posterior hips Extremities: Moves extremities equally, Normal flexion and extension of the feet, normal hip flexion bilaterally. No decrease in sensation to the medial thighs Psych: Normal mood and affect Neuro: No focal neuro deficit Skin: Warm, dry, intact Constitutional Vital Signs, click to edit/add: Last Vital Signs Temp 98.5 F 12/17/23 17:47 Pulse 81 12/17/23 19:28 Resp 16 12/17/23 19:28 BP 124/74 12/17/23 19:28 Pulse Ox 96 12/17/23 19:28 O2 Del Method Room Air 12/17/23 19:28 Course Vital Signs Vital signs: Vital Signs Temperature 98.5 F 12/17/23 17:47 Pulse Rate 103 H 12/17/23 17:47 Respiratory Rate 16 12/17/23 17:47 Blood Pressure 120/74 12/17/23 17:47 Pulse Oximetry 100 12/17/23 17:47 Oxygen Delivery Method Room Air 12/17/23 17:47 Temperature 98.5 F 12/17/23 17:47 Pulse Rate 81 12/17/23 19:28 Respiratory Rate 16 12/17/23 19:28 Blood Pressure 124/74 12/17/23 19:28 Pulse Oximetry 96 12/17/23 19:28 Oxygen Delivery Method Room Air 12/17/23 19:28 MDM - Back Pain/Injury MDM Narrative Medical decision making narrative: Patient medicated with Toradol, Norflex, [place]. CT of the lumbar spine with no evidence of acute process although there is disc herniation at L5/S1. Exam is consistent with lumbar radiculopathy/sciatica and the patient is placed on Medrol Dosepak, Toradol, Robaxin for home. Follow-up PCP and return to the emergency department if symptoms change or worsen. She is given a referral for spinal surgery as well. SUPERVISED APC VISIT, PHYSICIAN ATTESTATION: Based on the medical record the care appears appropriate. ? Medical Records Attestation: I reviewed the patient's medical records. Imaging Data CT lumbar: Attestation: I have reviewed the pertinent imaging results. Radiologist's impression: ITS Impressions Lumbar Spine CT 12/17/23 17:56 IMPRESSION: 1. No fractures or loss of vertebral body height throughout the lumbar spine. 2. Disc herniation at the L5-S1 level. Electronically authenticated by: PATT MCKENZIE Date: 12/17/2023 19:46 Discharge Plan Discharge Stand Alone Forms: Portal Instructions Chief Complaint: Back Pain/Injury Clinical Impression: Lumbar radiculopathy, Sciatica Patient Disposition: Home, Self-Care Time of Disposition Decision: 19:58 Condition: Good Mode of Transportation: Private Vehicle Prescriptions / Home Meds: New ketorolac 10 mg tablet 10 mg PO TID PRN (Reason: pain) Qty: 10 0RF methocarbamol 750 mg tablet 750 mg PO TID PRN (Reason: pain) Qty: 20 0RF methylprednisolone [Medrol (Carlos)] 4 mg tablets,dose pack See Rx Instructions .ROUTE .COMPLEX Qty: 21 0RF Rx Instructions: Taper as directed No Action prednisone 20 mg tablet See Rx Instructions .ROUTE .COMPLEX Qty: 12 0RF Rx Instructions: 3 tabs daily for 2 days, then 2 tabs daily for 2 days, then 1 tab daily for 2 days hydroxyzine HCl 25 mg tablet 25 mg PO Q6H PRN (Reason: itching) Qty: 20 0RF albuterol sulfate 90 mcg/actuation HFA aerosol inhaler 2 inh inhalation Q4H PRN (Reason: shortness of breath or wheezing) Qty: 8.5 0RF Print Language: [place] Islander Instructions: Sciatica (ED), Lumbar Radiculopathy (ED) Referrals: Ally Craig NP [Primary Care Provider] - 1 week Pascale García MD [Physician] - 1 week Discharge Date/Time: 12/17/23 20:17
[2023-12-17] MEDS: ORPHENADRINE 60 MG/ 2 ML VIAL IM (18:33)
[2023-12-17] MEDS: HYDROCODONE/ACET 5-325 MG TABLET 1 TAB PO (18:34)
[2023-12-17] MEDS: KETOROLAC TROMETHAMINE 60 MG/2 ML VIAL IM (18:34)
[2023-12-17 19:28] VITALS: BP 124/74; PULSE 81; O2SAT 96
== END 2023-12-17 20:17 | disposition home or self-care (01) ==
PROVIDERS: Emergency Provider Emergency Medicine; PCP Nurse Practitioner
DX: M54.16 Radiculopathy, lumbar region (principal); M54.30 Sciatica, unspecified side
CPT/HCPCS: 72131; 96372; 99285; J1885; J2360

== ENCOUNTER 2024-05-08 15:54 | Outpatient (RCR) | payer OTHER, SELFPAY ==
--- OUTSIDE RECORDS SUMMARY | 2024-05-08 15:42 | XMS_ITS | CCD ---
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 [id number] #### [facility] (DEFAULT) [address] [place] [address] Consent Formson 02-19-2021 Consent Forms [id number] [facility] [id number] [facility] - Toxicology Resultson 0 02-19-2021 Lab - Toxicology Results [id number] [facility] Recordson 02-19-2021 Outside Records [id number] [facility] T[facility] Industrialon 02-20-20 21 Drug Screen Complete Collected [facility] Comment on above: Performed By: #### 1 [id number] #### [facility] (DEFAULT) [address] [place] [address] ED Clinical Summaryon 2020 ED Clinical Summary [facility] ? Urgent Care [address] [place], [place] [id number] Clinical Summary PERSON INFORMATION Name: MADDIE RAMAN Age: 25 Years Sex: FEMALE : 1995 MRN: Acct#: Visit Reason: Medical screening exam; [facility] Arrival: 02/18/2021 13:01:04 Discharge: 02/18/2021 14:21:00 LOS: 000 01:20 Check In: 02/18/2021 13:01:04 Checkout: 02/18/2021 14:21:00 Address: [facility] [address] [facility] [address] PCP: Provider, Unlisted PROVIDER INFORMATION Provider Role Assigned Unassigned Adam Moncada PA-C ED PA 02/18/2021 13:10:24 Clemente RN, Jeanie ED Nurse 02/18/2021 13:11:55 VITALS INFORMATION [...] verbalizes understanding of instructions given Comment: Normal [facility] ED Patient Summaryon 021 ED Patient Summary [facility] ? Urgent Care [address] [place] [address] PATIENT DISCHARGE INSTRUCTIONS Patient Information Name: MADDIE RAMAN Age: 25 Years Date of : 1995 Reason For Visit: Medical screening exam; [facility] Arrival Time: 02/18/2021 13:01:04 Primary Care Physician: Provider, Unlisted Attending Physician: Adam Moncada PA-C Comment: Patient Education Medication Information: The exam and treatment you received today in the [facility] Emergency Department were for an urgent problem and are not intended as complete care. It is important for you to follow up with a doctor, nurse practitioner, or physician?s business support assistant for ongoing care. If your symptoms [...] so we can reach you if necessary. [facility] Emergency Department has provided you with a complete list of medications post discharge. 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 voice instructor/provider of your visit and for further instruction on these medications. Any specific questions regarding your chronic medications and dosages should be discussed with your primary care physician(s) and/or pharmacist. Visit Information Visit Diagnosis: Diagnoses This Visit Medical screening exam ([id number]) If you received any narcotics, sedation, or [...] Reason for Visit: Patient arrives to for [place] physical Allergies: Substance Reaction Symptoms Type Comments [...] for Disease Control and Prevention February 2014 [facility] Urgent Care Note- Provideron 02-18-2021 Urgent Care Note- Provider Patient: MADDIE RAMAN Age: 25 years Sex: FEMALE : 1995 Associated Diagnoses: None Author: Adam Moncada PA-C Basic Information Additional information: Chief Complaint from Nursing Triage Note : Chief Complaint 02/18/2021 13:34 EDT Chief Complaint Patient arrives to for [place] physical . History of Present Illness Patient presents for a pre-employment physical. She is cleared for work. Exam is normal. See scanned document. PSYCHIATRIC: Mood and affect appropriate. Health Status Allergies: Allergic Reactions (Selected) No known allergies. Past Medical/ Family/ Social History Medical history: No active or resolved past medical history items have been selected or recorded.. Surgical history: Cholecystectomy ([id number]). Hip replacement ([id number]). delivery ([id number]). Cardiac ablation system ([id number]).. Family history: No family history items have [...] 99 % Oxygen Therapy Room air . Normal [facility] Urgent Care Recordon 021 Urgent Care Record [facility] ? Urgent Care [address] [place] [address] PATIENT DISCHARGE INSTRUCTIONS Patient Information Name: MADDIE RAMAN Age: 25 Years Date of : 1995 Reason For Visit: Medical screening exam; [facility] Arrival Time: 02/18/2021 13:01:04 Primary Care Physician: Provider, Unlisted Attending Physician: Adam Moncada PA-C Comment: Visit Diagnosis: Diagnoses This Visit Medical screening exam ([id number]) If you received any narcotics, sedation, or [...] and treatment you received today in the [facility] were for an urgent problem and are not intended as complete care. It is important for you to follow up with a doctor, nurse practitioner, or physician?s business support assistant for ongoing care. If your symptoms [...] so we can reach you if necessary. [facility] has provided you with a complete list of medications post discharge. 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 voice instructor/provider of your visit and for further instruction [...] for Disease Control and Prevention February 2014 [facility] PROGESTERONEon 05-25-2020 Progesterone 3.3 ng/mL Normal [facility] Comment on above: Result Comment: Foll icular phase 0.1 - 0.9 Luteal phase 1.8 - 23.9 Ovulation phase 0.1 - 12.0 First trimester 11.0 - 44.3 Second trimester 25.4 - 83.3 Third trimester 58.7 - 214.0 Postmenopausal 0.0 - 0.1 Performed By: #### P ROSA #### [facility] [address] [place], [place] [address] Sebastian Smita Hgb/Hcton 02-22-2019 Hematocrit (Bld) [Volume fraction] 28.7 % Low 36-46 [facility] Comment on above: Performed By: #### H H #### [facility] [address] [place], [place] [id number] Clipman: Remy Haq DO Hemoglobin (Bld) [Mass/Vol] 9.4 g/dL Low 12.0-16.0 [facility] Comment on above: Performed By: #### H H #### [facility] [address] [place], [place] [id number] Clipman: Remy Haq DO Basic Metabolic Profon 02-20 (cont.) Normal [facility] Comment on above: Result Comment: Aver age GFR for 20-29 years old: 116 mL/min/1.73sq m Chronic Kidney Disease: <60 mL/min/1.73sq m Kidney failure: <15 mL/min/1.73sq m eGFR calculated using average adult body mass. Additional eGFR calculator available at: http://www.[employer].com/multiple_crcl_2012.htm Performed By: #### C BC, BMP #### [facility] [address] [facility] [place] [address] Clipman: Remy Haq DO Anion gap [Moles/Vol] 13 mmol/L Normal 9-17 [facility] Comment on above: Performed By: #### C JAMA, BMP #### [facility] [address] Clipman: Remy Haq DO Calcium [Mass/Vol] 8.8 mg/dL Normal 8.6-10.4 [facility] Comment on above: Performed By: #### C JAMA, BMP #### [facility] [address] Clipman: Remy Haq DO Chloride [Moles/Vol] 103 mmol/L Normal 98-107 [facility] Comment on above: Performed By: #### C JAMA, BMP #### [facility] [place] [address] Clipman: Remy Haq DO CO2 [Moles/Vol] 25 mmol/L Normal 20-31 [facility] Comment on above: Performed By: #### C JAMA, BMP #### [facility] [address] Clipman: Remy Haq DO Creatinine [Mass/Vol] 0.72 mg/dL Normal 0.50-0.90 [facility] Comment on above: Performed By: #### C BC, BMP #### [facility] [address] Clipman: Remy Haq DO GFR, Amer >60 Normal >60 [facility] Comment on above: Performed By: #### C BC, BMP #### [facility] [address] [place] [address] Clipman: Remy Haq DO GFR,non Amer >60 Normal >60 [facility] Comment on above: Performed By: #### C JAMA, BMP #### [facility] [address] [place] [address] Clipman: Remy Hqa DO Glucose [Mass/Vol] 96 mg/dL Normal 70-99 [facility] Comment on above: Performed By: #### C JAMA, BMP #### [facility] [address] [place] [address] Clipman: Remy Haq DO Potassium [Moles/Vol] 4.0 mmol/L Normal 3.7-5.3 [facility] Comment on above: Performed By: #### C JAMA, BMP #### [facility] [address] [place] [address] Clipman: Remy Haq DO Sodium [Moles/Vol] 141 mmol/L Normal 135-144 [facility] Comment on above: Performed By: #### C JAMA, BMP #### [facility] [address] [place] [address] Clipman: Remy Haq DO Urea nitrogen [Mass/Vol] 10 mg/dL Normal 6-20 [facility] Comment on above: Performed By: #### C JAMA, BMP #### [facility] [address] [place] [address] Clipman: Remy Haq DO BUN/CRE Ratio NOT REPORTED Normal -20 [facility] Comment on above: Performed By: #### C JAMA, BMP #### [facility] [address] [place] [address] Clipman: Remy Haq DO Staging: NOT REPORTED Normal [facility] Comment on above: Performed By: #### C JAMA, BMP #### [facility] [place] [address] Clipman: Remy Haq DO CBCon 02-20-2019 Erythrocyte distribution width (RBC) [Ratio] 16.5 % High 11.5-14.9 [facility] Comment on above: Performed By: #### Joy YUN, BMP #### [facility] [place] [address] Clipman: Remy Haq DO Hematocrit (Bld) [Volume fraction] 25.9 % Low 36-46 [facility] Comment on above: Performed By: #### Jyo YUN, BMP #### [facility] [address] [place] [address] Clipman: Remy Haq DO Hemoglobin (Bld) [Mass/Vol] 8.6 g/dL Low 12.0-16.0 [facility] Comment on above: Performed By: #### Joy YUN, BMP #### [facility] [address] [place] [address] Clipman: Remy Haq DO MCH (RBC) [Entitic mass] 28.2 pg Normal 26-34 [facility] Comment on above: Performed By: #### Joy YUN, BMP #### [facility] [place] [address] Clipman: Remy Haq DO MCHC (RBC) [Mass/Vol] 33.0 g/dL Normal 31-37 [facility] Comment on above: Performed By: #### C JAMA, BMP #### [facility] [address] [place], [place] [address] [place] [address] Clipman: Remy Haq DO MCV (RBC) [Entitic vol] 85.4 fL Normal 80-100 [facility] Comment on above: Performed By: #### Joy YUN, BMP #### [facility] [address] [place] [address] Clipman: Remy Haq DO Platelet mean volume (Bld) [Entitic vol] 6.7 fL Normal 6.0-12.0 [facility] Comment on above: Performed By: #### Joy YUN, BMP #### [facility] [address] [place] [address] Clipman: Remy Haq DO Platelets (Bld) [#/Vol] 419 10*3/uL Normal 150-450 [facility] Comment on above: Performed By: #### Joy YUN, BMP #### [facility] [address] [place] [address] Clipman: Remy Haq DO RBC (Bld) [#/Vol] 3.03 10*6/uL Low 4.0-5.2 [facility] Comment on above: Performed By: #### Joy YUN, BMP #### [facility] [place] [address] Clipman: Remy Haq DO WBC (Bld) [#/Vol] 6.3 10*3/uL Normal 3.5-11.0 [facility] Comment on above: Performed By: #### Joy YUN, BMP #### [facility] [place] [address] Clipman: Remy Haq DO NRBC Automated NOT REPORTED Normal [facility] Comment on above: Performed By: #### Joy YUN, BMP #### [facility] [place] [address] Clipman: Remy Haq DO Hgb/Hcton 02-20-2019 Hematocrit (Bld) [Volume fraction] 29.6 % Low 36-46 [facility] Comment on above: Performed By: #### H H #### [facility] [address] [place] [address] Clipman: Remy Haq DO Hemoglobin (Bld) [Mass/Vol] 9.7 g/dL Low 12.0-16.0 [facility] Comment on above: Performed By: #### H H #### [facility] [address] [place] [address] Clipman: Remy Haq DO CBCon 02-19-2019 Erythrocyte distribution width (RBC) [Ratio] 16.6 % High 11.5-14.9 [facility] Comment on above: Performed By: #### C BC #### [facility] [address] Clipman: Remy Haq DO Hematocrit (Bld) [Volume fraction] 23.2 % Low 36-46 [facility] Comment on above: Performed By: #### C BC #### [facility] [place] [address] Clipman: Remy Haq DO Hemoglobin (Bld) [Mass/Vol] 7.6 g/dL Low 12.0-16.0 [facility] Comment on above: Performed By: #### C BC #### [facility] [address] Clipman: Remy Haq DO MCH (RBC) [Entitic mass] 27.8 pg Normal 26-34 [facility] Comment on above: Performed By: #### C BC #### [facility] [place] [address] Clipman: Remy Haq DO MCHC (RBC) [Mass/Vol] 32.7 g/dL Normal 31-37 [facility] Comment on above: Performed By: #### C BC #### [facility] [address] [place] [address] Clipman: Remy Haq DO MCV (RBC) [Entitic vol] 85.0 fL Normal 80-100 [facility] Comment on above: Performed By: #### C BC #### [facility] [address] [place] [address] Clipman: Remy Haq DO Platelet mean volume (Bld) [Entitic vol] 6.5 fL Normal 6.0-12.0 [facility] Comment on above: Performed By: #### C BC #### [facility] [place] [address] Clipman: Remy Haq DO Platelets (Bld) [#/Vol] 444 10*3/uL Normal 150-450 [facility] Comment on above: Performed By: #### C BC #### [facility] [place] [address] Clipman: Remy Haq DO RBC (Bld) [#/Vol] 2.73 10*6/uL Low 4.0-5.2 [facility] Comment on above: Performed By: #### C BC #### [facility] [place] [address] Clipman: Remy Haq DO WBC (Bld) [#/Vol] 5.1 10*3/uL Normal 3.5-11.0 [facility] Comment on above: Performed By: #### C BC #### [facility] [place] [address] Clipman: Remy Haq DO NRBC Automated NOT REPORTED Normal [facility] Comment on above: Performed By: #### C BC #### [facility] [address] [place] [address] Clipman: Remy Haq DO Type + Crossmatchon 02-20-20 19 Type + Crossmatch Sample Expiration 02/22/2019 Arm Band Number [id number] ABO/Rh(D) A POSITIVE Antibody Screen NEGATIVE Blood Bank Comment Pt's ABRh confirmed as A POS:402 Results Verified BLANCHE, Polyspecific NEGATIVE BLANCHE, Anti-IgG Loreta Serum NEGATIVE Antibody Ident Anti-[place](A) Present Unit Number [id number] Blood Component Type Leukocyte Reduced Red Cell Unit Division 00 Status of Unit TRANSFUSED Transfusion Status OK TO TRANSFUSE Crossmatch Result COMPATIBLE Normal [facility] Comment on above: Performed By: #### T YX #### [facility] [address] [place] [address] Clipman: Remy Haq DO Basic Metab w/rfx MGon 02-16 (cont.) Normal [facility] Comment on above: Result Comment: Aver age GFR for 20-29 years old: 116 mL/min/1.73sq m Chronic Kidney Disease: <60 mL/min/1.73sq m Kidney failure: <15 mL/min/1.73sq m eGFR calculated using average adult body mass. Additional eGFR calculator available at: http://www.[employer]/multiple_crcl_2012.htm Performed By: #### B MPX, CBC #### [facility] [address] [place], [place] [address] Clipman: Remy Haq DO Anion gap [Moles/Vol] 11 mmol/L Normal 9-17 [facility] Comment on above: Performed By: #### B MPX, CBC #### [facility] [address] [place] [address] Clipman: Remy Haq DO Calcium [Mass/Vol] 8.6 mg/dL Normal 8.6-10.4 [facility] Comment on above: Performed By: #### B MPX, CBC #### [facility] [address] [place] [address] Clipman: Remy Haq, DO Chloride [Moles/Vol] 100 mmol/L Normal 98-107 [facility] Comment on above: Performed By: #### B MPX, CBC #### [facility] [place] [address] Clipman: Remy Haq, DO CO2 [Moles/Vol] 26 mmol/L Normal 20-31 [facility] Comment on above: Performed By: #### B MPX, CBC #### [facility] [address] [place] [address] Clipman: Remy Haq DO Creatinine [Mass/Vol] 0.62 mg/dL Normal 0.50-0.90 [facility] Comment on above: Performed By: #### B MPX, CBC #### [facility] [place] [address] Clipman: Remy Haq DO GFR, Amer >60 Normal >60 [facility] Comment on above: Performed By: #### B MPX, CBC #### [facility] [place] [address] Clipman: Remy Haq, DO GFR,non Amer >60 Normal >60 [facility] Comment on above: Performed By: #### B MPX, CBC #### [facility] [address] [place], [place] [address] [place] [address] Clipman: Remy Haq DO Glucose [Mass/Vol] 95 mg/dL Normal 70-99 [facility] Comment on above: Performed By: #### B MPX, CBC #### [facility] [address] [place] [address] Clipman: Remy Haq DO Potassium [Moles/Vol] 4.2 mmol/L Normal 3.7-5.3 [facility] Comment on above: Performed By: #### B MPX, CBC #### [facility] [address] [place] [address] Clipman: Remy Haq DO Sodium [Moles/Vol] 137 mmol/L Normal 135-144 [facility] Comment on above: Performed By: #### B MPX, CBC #### [facility] [address] [place] [address] Clipman: Remy Haq DO Urea nitrogen [Mass/Vol] 11 mg/dL Normal 6-20 [facility] Comment on above: Performed By: #### B MPX, CBC #### [facility] [address] [place] [address] Clipman: Remy Haq DO BUN/CRE Ratio NOT REPORTED Normal -20 [facility] Comment on above: Performed By: #### B MPX, CBC #### [facility] [address] [place] [address] Clipman: Remy Haq DO Staging: NOT REPORTED Normal [facility] Comment on above: Performed By: #### B MPX, CBC #### [facility] [address] [place] [address] Clipman: Remy Haq DO CBCon 02-16-2019 Erythrocyte distribution width (RBC) [Ratio] 16.3 % High 11.5-14.9 [facility] Comment on above: Performed By: #### B MPX, CBC #### [facility] [address] [place] [address] Clipman: Remy Haq DO Hematocrit (Bld) [Volume fraction] 22.4 % Low 36-46 [facility] Comment on above: Performed By: #### B MPX, CBC #### [facility] [place] [address] Clipman: Remy Haq DO Hemoglobin (Bld) [Mass/Vol] 7.6 g/dL Low 12.0-16.0 [facility] Comment on above: Performed By: #### B MPX, CBC #### [facility] [address] [place] [address] Clipman: Remy Haq DO MCH (RBC) [Entitic mass] 29.4 pg Normal 26-34 [facility] Comment on above: Performed By: #### B MPX, CBC #### [facility] [address] [place] [address] Clipman: Remy Haq DO MCHC (RBC) [Mass/Vol] 33.8 g/dL Normal 31-37 [facility] Comment on above: Performed By: #### B MPX, CBC #### [facility] [address] [place] [address] Clipman: Remy Haq DO MCV (RBC) [Entitic vol] 87.1 fL Normal 80-100 [facility] Comment on above: Performed By: #### B MPX, CBC #### [facility] [address] [place] [address] Clipman: Remy Haq DO Platelet mean volume (Bld) [Entitic vol] 6.4 fL Normal 6.0-12.0 [facility] Comment on above: Performed By: #### B MPX, CBC #### [facility] [address] [place] [address] [place] [address] Clipman: Remy Haq DO Platelets (Bld) [#/Vol] 503 10*3/uL High 150-450 [facility] Comment on above: Performed By: #### B MPX, CBC #### [facility] [address] [facility] [address] Clipman: Remy Haq DO RBC (Bld) [#/Vol] 2.57 10*6/uL Low 4.0-5.2 [facility] Comment on above: Performed By: #### B MPX, CBC #### [facility] [address] [facility] [place] [address] Clipman: Remy Haq DO WBC (Bld) [#/Vol] 7.5 10*3/uL Normal 3.5-11.0 [facility] Comment on above: Performed By: #### B MPX, CBC #### [facility] [address] [facility] [address] Clipman: Remy Haq DO NRBC Automated NOT REPORTED Normal [facility] Comment on above: Performed By: #### B MPX, CBC #### [facility] [facility] [place] [address] Clipman: Remy Haq DO Basic Metabolic Panel w/ Ref savanah to MGon 02-15-2019 Anion gap [Moles/Vol] 14 mmol/L 9 - 17 mmol/L [facility], [place] Bun/Cre Ratio NOT REPORTED [facility], [place] Calcium [Mass/Vol] 8.4 mg/dL Low 8.6 - 10. 4 mg/dL [facility], [place] Chloride [Moles/Vol] 102 mmol/L 98 - 10 7 mmol/L [facility], [place] CO2 [Moles/Vol] 24 mmol/L 20 - 31 mmol/L [facility], [place] Creatinine [Mass/Vol] 0.57 mg/dL 0.5 - 0.9 mg/dL [place], [place] GFR >60 >60 mL/min [place] GFR Non- >60 >60 mL/min [place] GFR/1.73 sq M predicted among non-blacks MDRD (S/P/Bld) [Vol rate/Area] [place], [place] Comment on above: Average GFR for 20-2 9 years old: 116 mL/min/1.73sq m Chronic Kidney Disease: <60 mL/min/1.73sq m Kidney failure: <15 mL/min/1.73sq m eGFR calculated using average adult body mass. Additional eGFR calculator available at: http://www.NeurAxon/multiple_crcl_2011.htm GFR/1.73 sq M predicted among non-blacks MDRD (S/P/Bld) [Vol rate/Area] NOT REPORTED [place], [place] Glucose [Mass/Vol] 106 mg/dL High 70 - 99 mg/dL [place] Interpretation and review of laboratory results Abnormal [place] Potassium [Moles/Vol] 4.0 mmol/L 3.7 - 5.3 mmol/L [place] Sodium [Moles/Vol] 140 mmol/L 135 - 144 mmol/L [place] Urea nitrogen [Mass/Vol] 11 mg/dL 6 - 20 mg/dL [place] CBC WITH AUTO DIFFERENTIALon 02-15-2019 Basophils (Bld) [#/Vol] 0.06 10*3/uL [place] Basophils/100 WBC (Bld) 1 % 0 - 2 % [place] Differential Type NOT REPORTED [place] Eosinophils (Bld) [#/Vol] 0.33 10*3/uL [place] Eosinophils/100 WBC (Bld) 5 % High 1 - 4 % [place] Erythrocyte distribution width (RBC) [Ratio] 15.3 % High 11.8 - 14.4 % [place] Hematocrit (Bld) [Volume fraction] 24.9 % Low 36.3 - 47.1 % [place] Hemoglobin (Bld) [Mass/Vol] 7.5 g/dL Low 11.9 - 15.1 g/dL [place] Immature granulocytes (Bld) [#/Vol] 1 % High 0 [place] Immature granulocytes (Bld) [#/Vol] 0.10 10*3/uL [place] Interpretation and review of laboratory results Abnormal [place] Lymphocytes (Bld) [#/Vol] 1.93 10*3/uL [place] Lymphocytes/100 WBC (Bld) 27 % 24 - 43 % [place] MCH (RBC) [Entitic mass] 28.2 pg 25.2 - 33.5 pg [place] MCHC (RBC) [Mass/Vol] 30.1 g/dL 28.4 - 34.8 g/dL [place] MCV (RBC) [Entitic vol] 93.6 fL 82.6 - 102.9 fL [place] Monocytes (Bld) [#/Vol] 0.60 10*3/uL [place] Monocytes/100 WBC (Bld) 8 % 3 - 12 % [place] Platelet mean volume (Bld) [Entitic vol] 9.0 fL 8.1 - 13.5 fL [place] Platelets (Bld) [#/Vol] 458 10*3/uL [place] Platelets (Bld) [#/Vol] NOT REPORTED [place] RBC (Bld) [#/Vol] 2.66 10*6/uL Low 3.95 - 5.1 1 m/uL [place] RBC morphology finding Nom (Bld) ANISOCYTOSIS PRESENT [place], [place] Segmented neutrophils/100 WBC (Bld) 58 % 36 - 65 % [place] Segs Absolute 4.19 [place], [place] WBC (Bld) [#/Vol] 7.2 10*3/uL [place] WBC (Bld) [#/Vol] 0.0 10*3/uL 0.0 per 10 0 WBC [place] WBC Morphology NOT REPORTED [place] Basic Metabolic Panel w/ Ref savanah to MGon 02-13-2019 Anion gap [Moles/Vol] 13 mmol/L 9 - 17 mmol/L [place] Bun/Cre Ratio NOT REPORTED [place], [place] Calcium [Mass/Vol] 8.5 mg/dL Low 8.6 - 10. 4 mg/dL [place] Chloride [Moles/Vol] 105 mmol/L 98 - 10 7 mmol/L [place] CO2 [Moles/Vol] 23 mmol/L 20 - 31 mmol/L [place] Creatinine [Mass/Vol] 0.46 mg/dL Low 0.5 - 0.9 mg/dL [place] GFR >60 >60 mL/min [place] GFR Non- >60 >60 mL/min [place] GFR/1.73 sq M predicted among non-blacks MDRD (S/P/Bld) [Vol rate/Area] NOT REPORTED [place] GFR/1.73 sq M predicted among non-blacks MDRD (S/P/Bld) [Vol rate/Area] [place] Comment on above: Average GFR for 20-2 9 years old: 116 mL/min/1.73sq m Chronic Kidney Disease: <60 mL/min/1.73sq m Kidney failure: <15 mL/min/1.73sq m eGFR calculated using average adult body mass. Additional eGFR calculator available at: http://www.[employer].Litebi/multiple_crcl_2012.htm Glucose [Mass/Vol] 86 mg/dL 70 - 99 mg/dL [place] Interpretation and review of laboratory results Abnormal [place], [place] Potassium [Moles/Vol] 4.3 mmol/L 3.7 - 5.3 mmol/L [place] Sodium [Moles/Vol] 141 mmol/L 135 - 144 mmol/L [place], [place] Urea nitrogen [Mass/Vol] 9 mg/dL 6 - 20 mg/dL [place] CBC WITH AUTO DIFFERENTIALon 02-13-2019 Basophils (Bld) [#/Vol] 0.06 10*3/uL [place] Basophils/100 WBC (Bld) 1 % 0 - 2 % [place] Differential Type NOT REPORTED [place] Eosinophils (Bld) [#/Vol] 0.40 10*3/uL [place] Eosinophils/100 WBC (Bld) 5 % High 1 - 4 % [place] Erythrocyte distribution width (RBC) [Ratio] 14.8 % High 11.8 - 14.4 % [place] Hematocrit (Bld) [Volume fraction] 25.0 % Low 36.3 - 47.1 % [place] Hemoglobin (Bld) [Mass/Vol] 7.4 g/dL Low 11.9 - 15.1 g/dL [place], [place] Immature granulocytes (Bld) [#/Vol] 2 % High 0 [place], [place] Immature granulocytes (Bld) [#/Vol] 0.14 10*3/uL [place] Interpretation and review of laboratory results Abnormal [place] Lymphocytes (Bld) [#/Vol] 2.18 10*3/uL [place] Lymphocytes/100 WBC (Bld) 25 % 24 - 43 % [place] MCH (RBC) [Entitic mass] 27.1 pg 25.2 - 33.5 pg [place] MCHC (RBC) [Mass/Vol] 29.6 g/dL 28.4 - 34.8 g/dL [place] MCV (RBC) [Entitic vol] 91.6 fL 82.6 - 102.9 fL [place], [place] Monocytes (Bld) [#/Vol] 0.66 10*3/uL [place], [place] Monocytes/100 WBC (Bld) 8 % 3 - 12 % [place] Platelet mean volume (Bld) [Entitic vol] 8.9 fL 8.1 - 13.5 fL [place] Platelets (Bld) [#/Vol] 440 10*3/uL [facility] [place] Platelets (Bld) [#/Vol] NOT REPORTED [facility] RBC (Bld) [#/Vol] 2.73 10*6/uL Low 3.95 - 5.1 1 m/uL [facility] RBC morphology finding Nom (Bld) [facility] Segmented neutrophils/100 WBC (Bld) 61 % 36 - 65 % [facility] Segs Absolute 5.37 [place], [place] WBC (Bld) [#/Vol] 0.0 10*3/uL 0.0 per 10 0 WBC [place] WBC (Bld) [#/Vol] 8.8 10*3/uL [place] WBC Morphology NOT REPORTED [place]ammie [place] ECHO Complete 2D W Doppler W Coloron 02-13-2019 Transthoracic Echocardiography Report (TTE) Patient Name CECI PERKINS Date of Study 02/13/2019 C Date of 1995 Gender Female Age 23 year(s) Race Unknown Room Number 0240 Height: 65 inch, 165.1 cm Corporate ID [id number] Weight: 301 pounds, 136.5 kg # Patient Acct [id number] BSA: 2.35 m^2 BMI: 50.09 kg/m^2 # MR # [id number] Wellness Nurse Kaylen Jasso Interpreting Physician Anthony Keating Fellow Referring Nurse Practitioner Interpreting Referring Physician MICHAEL BULLOCK MD Fellow Type of Study TTE procedure:2D Echocardiogram, M-Mode, Doppler, Color Doppler. Procedure Date Date: 02/13/2019 Start: 08:48 AM Study Location: [facility] Technical Quality: Adequate visualization Indications:Irregula r [...] Wall E' velocity:0.17 m/s Lateral Wall E/E':5.8 [facility] [place], [place] Tamir, Mhpn Incoming Cardio Results From [facility]/ - 02/13/2019 2:01 PM EDT Transthoracic Echocardiography Report (TTE) Patient Name CECI PERKINS Date of Study 02/13/2019 C Date of 1995 Gender Female Age 23 year(s) Race Unknown Room Number 0240 Height: 65 inch, 165.1 cm Corporate ID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
[2024-05-08 16:18] LABS: HCG Quantitative 74762 mIU/mL
[2024-05-10 17:05] LABS: HCG Quantitative 61976 mIU/mL
[2024-05-12 08:59] LABS: HCG Quantitative 52338 mIU/mL
== END 2024-06-20 23:59 | disposition home or self-care (01) ==
LOC: LAB 15:54
PROVIDERS: PCP Nurse Practitioner; Visit Provider Obstetrics & Gynecology
DX: N92.6 Irregular menstruation, unspecified (principal)
CPT/HCPCS: 36415; 84702

== ENCOUNTER 2024-05-13 07:57 | Outpatient (OUT) | payer OTHER, SELFPAY ==
--- OUTSIDE RECORDS SUMMARY | 2024-05-13 08:00 | XMS_ITS | CCD ---
Author Organization [facility] Care Team Providers Care Airplane Rental Clerk Name Role Phone Ally Craig Primary Care Provider TERRI AUGUSTIN Admitting Unavailable TERRI AUGUSTIN Attending Unavailable ALLY CRAIG Primary Care Unavailable VIDYA FERRER Consulting Unavailable ALANA, DR HILLIARD Attending Unavailable ALANA, DR HILLIARD Consulting Unavailable ALANA, DR HILLIARD Admitting Unavailable Jeane Canela Unavailable Kiara STRAW HAT BRIM RAISER OPERATOR - ELECTRICAL ASSEMBLIES SUPERVISOR, Ally Pop Primary Care Pro vider ALLY CRAIG Primary Care Unavailable MARY MAZARIEGOS Referring Unavailable ALLY CRAIG Primary Care Unavailable MARY MAZARIEGOS Referring Unavailable RADHA HERNANDEZ Referring Unavailable ALLY CRAIG A Primary Care Unavailable NON STAFF Primary Care Provider UnavailRAFA Crowder Attending Provider [phone] NON STAFF Primary Care Unavailable Janna Escalera Attending Unavailable Janna Escalera Admitting Unavailable RADHA HERNANDEZ Attending Unavailable ALLY CRAIG A Referring Unavailable ALANNA CRAIGITH A Primary Care Unavailable DOC GUEVARA Attending Unavailable LAUREN SCOTT Referring Unavailable ALANNA CRAIGITH A Primary Care Unavailable ALLY CRAIG Attending Unavailable ALLY CRAIG Referring Unavailable ALLY CRAIG A Primary Care Unavailable RADHA HERNANDEZ Attending Unavailable ALLY CRAIG A Referring Unavailable KIARA ALLY A Primary Care Unavailable ALLY CRAIG Attending Unavailable ALLY CRAIG Referring Unavailable ALANNA CRAIGITH A Primary Care Unavailable Kiara CRAIG-FALGUNI, Ally Pop Primary Care Provi collin Unavailable Primary Care Provider Unavailabl e Allergies Allergy Classification Reported Allergen(s) Allergy Type Date of Onset Reaction(s) Facility strawberry allergenic extract (1 source) strawberry allergenic extract Drug Allergy [facility] Repository (3 sources) strawberry allergenic extract Drug Allergy 02-01-2019 Anaphylaxis [facility] [place] Medications Current Medications Medication Drug Class(es) Dates Sig (Normalized) Sig (Original) acetaminophen 500 mg oral tablet (1 source) Start: 02-01-2019 acetaminophen (TYLENOL) tablet 1,000 mg [id number] 200 actuat albuterol 0.09 mg/actuat metered dose [...] mg busPIRone hydrochloride 7.5 mg oral tablet (4 sources) Start: 03-15-2024 take 1 tablet by [...] 20, 2023 12:00am October 20, 2023 11:40am busPIRone (Buspa r) 15 MG tablet Take by mouth 2 (two) times a day. Active cetirizine hydrochloride 10 mg oral tablet (4 sources) Histamine-1 Receptor Antagonist Start: 02-16-2019 take 1 tablet by mouth once daily cetirizine (ZYRTEC) 10 MG tablet Take 1 tablet by mouth daily 30 tablet 0 02/16/2019 Active Start: 02-16-2019 take 1 tablet by [facility] once daily cetirizine (ZYRTEC) 10 MG tablet [...] by mouth every week vitamin D (ERGOCALCIFEROL) 43789 units CAPS capsule Take 1 capsule by [...] MG PO Q3D October 20, 2023 12:00am october repeat x 1 in 3 days if [...] 02/20/2019 Active Iron (1 source) Iron Active lamoTRIgine 25 mg oral tablet (2 sources) Mood Stabilizer, Anti-epileptic Agent lamoTRIgine (LaMICtal) 25 MG tablet Take by mouth. Active lidocaine 0.05 mg/mg medicated patch (3 [...] Start: 02-15-2019 take 1 tablet by hilary th twice daily metoprolol tartrate (LOPRESSOR) 25 MG [...] 25 mg tablet,chewable (1 source) Start: 10-20-2023 No.167-Folic Acid-Dha (One-A-Day ) 400 mcg- 25 mg tablet,chewable Active TAB PO October 20, 2023 12:00am vit 10-iron fum-folic 65-1 mg tablet (1 source) Start: 11-18-2021 take 1 tablet by mouth in the morning vit 10-iron fum-folic 65-1 mg tablet Indications: Morbid obesity (CMS-HCC) , Healthcare maintenance Take 1 tablet by mouth in the morning. 90 tablet 3 11/18/2021 Active sennosides, residential 8.6 mg oral tablet (2 sources) Start: 02-02-2019 End: 03-12-2019 take 1 tablet by mouth once daily senna (SENOKOT) 8.6 MG tablet Take 1 tablet by mouth nightly 30 tablet 0 02/10/2019 03/12/2019 Active sertraline 25 mg oral tablet (2 sources) Serotonin Reuptake Inhibitor take 1 tablet by mouth in the morning sertraline (Zoloft) 25 MG tablet Take 25 mg by mouth in the morning. Active Syringe With Needle (Bd Luer-Santy Syringe) 3 mL 25 x 1 1/2 syringe (1 source) Start: 10-20-2023 Syringe With Needle (Bd Luer-Santy Syringe) 3 mL 25 x 1 1/2 syringe Active ML .ROUTE .MEDSUPPLY 100 October 20, 2023 12:00am As directed syringe with needle (BD LUER-SANTY SYRINGE) 3 mL 25 x 1 1/2 syringe (2 sources) Start: 03-20-2024 syringe with needle (BD LUER-SANTY SYRINGE) 3 [...] 1 tablet ARIPiprazole 5 mg oral tablet (3 sources) Atypical Antipsychotic Start: 10-20-2023 End: 10-20-2023 take [...] B12 Start: 02-09-2019 End: 02-09-2019 iron polysaccharide htkzpaq-F09-rfumm acid (FERREX-FORTE) 150-0.025-1 MG capsule 1 mg [...] Results Test Name Value Interpretation Reference Range [facility] PREG QUANT HCGon 024 HCG QUANTITATIVE 95304 mIU/mL [facility] Comment on above: 5-50 0.2-1 WEEK 50-500 1-2 WEEKS 100-5,000 2-3 WEEKS 500-10,000 3-4 WEEKS 1,000-50,000 4-5 WEEKS 10,000-100,000 5-6 WEEKS 15,000-200,000 6-8 WEEKS 10,000-100,000 2-3 MONTHS [facility] PREG QUANT HCGon 024 HCG QUANTITATIVE 13604 mIU/mL [facility] Comment on above: 5-50 0.2-1 WEEK 50-500 1-2 WEEKS 100-5,000 2-3 WEEKS 500-10,000 3-4 WEEKS 1,000-50,000 4-5 WEEKS 10,000-100,000 5-6 WEEKS 15,000-200,000 6-8 WEEKS 10,000-100,000 2-3 MONTHS [facility] URINE CULTUREon 01-20-2024 Bacteria identified Cx [facility] (U) CULTURE RESULTS >100,000 ORGANISMS/mL ESCHERICHIA COLI [...] F TRIMETH/SULFAMETHOXA ZOLE R >=16/304 F Resistant [facility] Comment on above: Performed By: #### 6 30-4 #### [facility] ([id number]) [address] [place] [address], [address] [place] [address] Basic Metabolic Vasquez w/Rfx A1 Con 12-08-2023 GFR/1.73 sq M.predicted MDRD (S/P/Bld) [Vol rate/Area] mL/min/{1.73_m2} Normal [facility] Comment on above: Performed By: #### E BS LIPID, EMP BMP #### [facility] [address] [place] [address] [place] Calcium [Mass/volume] in Ser um or PlasmaOrdered By: Janna Escalera on 12-08-2023 Calcium [Mass/Vol] 9.5 mg/dL Normal 8.6-10.3 [facility] Comment on above: Performed By: #### E BS LIPID, EMP BMP #### [facility] [address] [place] [address] [place] Carbon dioxide, total [Moles /volume] in Serum or PlasmaOrdered By: Janna Escalera on 12-08-2023 CO2 [Moles/Vol] 29.1 mmol/L Normal 21.0-31.0 [facility] Comment on above: Performed By: #### E BS LIPID, EMP BMP #### [facility] [address] [place] [address] [place] Chloride [Moles/volume] in S radha or PlasmaOrdered By: Janna Escalera on 12-08-2023 Chloride [Moles/Vol] 105 mmol/L Normal 98-107 [facility] Comment on above: Performed By: #### E BS LIPID, EMP BMP #### [facility] [address] [place] [id number] [place] Cholesterol [Mass/volume] in Serum or PlasmaOrdered By: Janna Escalera on 12-08-2023 Cholesterol [Mass/Vol] 163 mg/dL Normal 140-200 [facility] Comment on above: Chol less than 200 m g/dl low riskChol 201-239 mg/dl borderline riskChol 240 mg/dl and greater high risk Result Comment: Chol less than 200 mg/dl low risk Chol 201-239 mg/dl borderline risk Chol 240 mg/dl and greater high risk Performed By: #### E BS LIPID, EMP BMP #### [facility] [address] [place] [id number] [place] Cholesterol in LDL Calc [Mas s/Vol]Ordered By: Janna Escalera on 12-08-2023 Cholesterol in LDL [Mass/Vol] 84 mg/dL 0-100 [facility] Comment on above: LDL ATP III CLASSIFI CATIONLDL less than 100 mg/dL OptimalLDL 100-129 mg/dL Near or above optimalLDL 130-159 mg/dL Borderline highLDL 160-189 mg/dL HighLDL greater than 189 mg/dL Very high Cholesterol in VLDL Calc [Ma ss/Vol]Ordered By: Janna Escalera on 12-08-2023 Cholesterol in VLDL [Mass/Vol] 17 mg/dL [facility] Creatinine [Mass/volume] in Serum or PlasmaOrdered By: Janna Escalera on 12-08-2023 Creatinine [Mass/Vol] 0.69 mg/dL Normal 0.60-1.20 [facility] Comment on above: Performed By: #### E BS LIPID, EMP BMP #### [facility] [address] [place] [address] [place] Glucose [Mass/volume] in Ser um or PlasmaOrdered By: Janna Escalera on 12-08-2023 Glucose [Mass/Vol] 83 mg/dL Normal 70-100 [facility] Comment on above: Performed By: #### E BS LIPID, EMP BMP #### [facility] [address] [place] [id number] [place] Lipid Profileon 12-08-2023 LDL Cholesterol,Calculated 84 mg/dL Normal 0-100 [facility] Comment on above: Result Comment: LDL ATP III CLASSIFICATION LDL less than 100 mg/dL Optimal LDL 100-129 mg/dL Near or above optimal LDL 130-159 mg/dL Borderline high LDL 160-189 mg/dL High LDL greater than 189 mg/dL Very high Performed By: #### E BS LIPID, EMP BMP #### [facility] [address] [place] [id number] [place] Triglyceride w/Reflex 87 mg/dL Normal 0-149 [facility] Comment on above: Result Comment: TRIG ATP III CLASSIFICATION TRIG less than 150 mg/dL Normal TRIG 150-199 mg/dL Borderline high TRIG 200-500 mg/dL High TRIG greater than 500 mg/dL Very high Standard traceable to the Center for Disease Conrtrol and Prevention (CDC) test method. Performed By: #### E BS LIPID, EMP BMP #### [facility] [address] VLDL CHOLESTEROL 17 mg/dL Normal [facility] Comment on above: Performed By: #### E BS LIPID, EMP BMP #### [facility] [address] No Panel InformationOrdered By: Janna Escalera on 12-08-2023 Estimated GFR (CKD-EPI) > 60.0 mL/Min [facility] Creatinine Clearance (Chem N/A [facility] Potassium [Moles/volume] in Serum or PlasmaOrdered By: Janna Escalera on 12-08-2023 Potassium [Moles/Vol] 3.6 mmol/L Normal 3.5-5.1 [facility] Comment on above: Performed By: #### E BS LIPID, EMP BMP #### [address] Serum or plasma anion gap de terminationOrdered By: Janna Escalera on 12-08-2023 Anion gap [Moles/Vol] 10.5 mmol/L Normal 6.0-15.0 [facility] Comment on above: Performed By: #### E BS LIPID, EMP BMP #### [facility] [address] [place] [address] Serum or plasma high density lipoprotein (HDL) cholesterol measurementOrdered By: Janna Escalera on 12-08-2023 Cholesterol in HDL [Mass/Vol] 62 mg/dL Normal 23-92 [facility] Comment on above: HDL CHOL ATP-III CLA SSIFICATION Cardiovascular RiskHDL > or equal to 60 mg/dL LOWHDL < 40 mg/dL HIGH Result Comment: HDL CHOL ATP-III CLASSIFICATION Cardiovascular Risk HDL > or equal to 60 mg/dL LOW HDL < 40 mg/dL HIGH Performed By: #### E BS LIPID, EMP BMP #### [address] Serum or plasma total choles terol/high density lipoprotein (HDL) cholesterol mass ratOrdered By: Janna Escalera on 12-08-2023 Cholesterol.total/Chol esterol in HDL [Mass ratio] 2.6 {ratio} Normal <5.0 [facility] Comment on above: Result Comment: PERF ORMED BY: [place] [address] PATHOLOGIST [employer] SUPERVISOR CHERYL GEORGE M.D. Performed By: #### E BS LIPID, EMP BMP #### [facility] [address] Sodium [Moles/volume] in Ser um or PlasmaOrdered By: Janna Escalera on 12-08-2023 Sodium [Moles/Vol] 141 mmol/L Normal 136-145 [facility] Comment on above: Performed By: #### E BS LIPID, EMP BMP #### [facility] [address] [place] [address] Triglyceride [Mass/volume] i n Serum or PlasmaOrdered By: Janna Escalera on 12-08-2023 Triglyceride [Mass/Vol] 87 mg/dL 0-149 [facility] Comment on above: TRIG ATP III CLASSIF ICATIONTRIG less than 150 mg/dL NormalTRIG 150-199 mg/dL Borderline highTRIG 200-500 mg/dL High TRIG greater than 500 mg/dL Very highStandard traceable to the Center for Disease Conrtrol and Prevention (CDC) test method. Urea nitrogen [Mass/volume] in Serum or PlasmaOrdered By: Janna Escalera on 12-08-2023 Urea nitrogen [Mass/Vol] 14 mg/dL Normal 7-25 [facility] Comment on above: Performed By: #### E BS LIPID, EMP BMP #### [facility] [address] [place] [address] [place] MRI HIP RIGHT W CONTRASTon 1 08-09-2021 [...] Tucker Ashby MD 06/08/22 Final result Normal [facility] IR INJ ARTHROGRAM HIP RIGHTo n 06-05-2022 [...] 120.55 uGy cm 2 Views: 3 PROCEDURE: ETCHER PHOTOENGRAVING: Elijah Houston This procedure was performed by [...] Eric Rae MD 06/05/22 Final result Normal [facility] Successful fluoroscopic-guided right hip arthrogram. Patient was transferred to MRI for further imaging. [facility] RIS CONSOLIDATED EXAMINATION: FLUOROSCOPIC GUIDED RIGHT HIP ARTHROGRAM, 06/05/2022 2:50 pm COMPARISON: None. HISTORY: ORDERING SYSTEM PROVIDED HISTORY: Tear of right acetabular labrum, initial encounter TECHNOLOGIST PROVIDED HISTORY: r/o R hip labral tear. MRI ordered Is the patient ?->No FLUOROSCOPY DOSE AND TYPE OR TIME AND EXPOSURES: Fluoro time 0.3 minutes DAP 120.55 uGy cm 2 Views: 3 PROCEDURE: ETCHER PHOTOENGRAVING: Elijah Houston This procedure was performed by [...] and left the Department in stable condition. [facility] RIS Eric Ayala MD - 06/05/2022 EXAMINATION: FLUOROSCOPIC GUIDED RIGHT HIP ARTHROGRAM, 06/05/2022 2:50 pm COMPARISON: None. HISTORY: ORDERING SYSTEM PROVIDED HISTORY: Tear of right acetabular labrum, initial encounter TECHNOLOGIST PROVIDED HISTORY: r/o R hip labral tear. MRI ordered Is the patient ?->No FLUOROSCOPY DOSE AND TYPE OR TIME AND EXPOSURES: Fluoro time 0.3 minutes DAP 120.55 uGy cm 2 Views: 3 PROCEDURE: ETCHER PHOTOENGRAVING: Elijah Houston This procedure was performed by [...] was transferred to MRI for further imaging. [employer] Phone: Radiology Study observation (narrative) [employer] Phone: IR INJ ARTHROGRAM HIP RIGHTO rdered By: Eric Dukes on 06-05-2022 [employer] Phone: 2019 Novel Coronavirus (CoVI D-19), SAMIR LCon 02-20-2021 SARS-CoV-2 (COVID-19) RNA SAMIR+probe Ql (Unsp spec) Not detected Invalid Interpretation Code Not Detected [facility] Comment on above: Result Comment: This nucleic acid amplification test was developed and its performance characteristics determined by [employer]. Nucleic acid amplification tests include RT- PCR [...] detected) result in this assay. Performed At: [address] [id number] Maritza Uribe PhD Ph:[phone] Performed By: #### 6 [id number] #### [facility] (DEFAULT) [address] [place] [address] Consent Formson 02-19-2021 Consent Forms [id number] #1.00OTGTIFF [facility] Consent Forms [id number] #[facility] Resultson 0 02-19-2021 Lab - Toxicology Results [id number] #1.00OTGTIFF [facility] Outside Recordson 02-19-2021 Outside Records [id number] #1.00OTGTIFF [facility] Triage Industrialon 02-20-20 21 Drug Screen Complete Collected [facility] Comment on above: Performed By: #### 1 [id number] #### [facility] (DEFAULT) [address] [place] [address] ED Clinical Summaryon 2020 ED Clinical Summary [facility] ? Urgent Care [address] [place] [address] Clinical Summary PERSON INFORMATION Name: MADDIE RAMAN Age: 25 Years Sex: FEMALE : 1995 MRN: Acct#: Visit Reason: Medical screening exam; [facility] Arrival: 02/18/2021 13:01:04 Discharge: 02/18/2021 14:21:00 LOS: 000 01:20 Check In: 02/18/2021 13:01:04 Checkout: 02/18/2021 14:21:00 Address: [address] [place] [address] [facility] [id number] PCP: Provider, Unlisted PROVIDER INFORMATION Provider Role [...] iver verbalizes understanding of instructions given Comment: [facility] ED Patient Summaryon 021 ED Patient Summary [facility] ? Urgent Care [address] [place] [address] [id number] PATIENT DISCHARGE INSTRUCTIONS Patient Information Name: MADDIE RAMAN Age: 25 Years Date of : 1995 Reason For Visit: Medical screening exam; [facility] Arrival Time: 02/18/2021 13:01:04 Primary Care Physician: Provider, Unlisted Attending Physician: Adam Moncada PA-C Comment: Patient Education Medication Information: The exam and treatment you received today in the [facility] Emergency Department were for an urgent problem and are not intended as complete care. It is important for you to follow up with a doctor, nurse practitioner, or physician?s nurses assistant for ongoing care. If your symptoms [...] so we can reach you if necessary. [facility] Emergency Department has provided you with a complete list of medications post discharge. 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 yeast pumper/provider of your visit and for further instruction on these medications. Any specific questions regarding your chronic medications and dosages should be discussed with your primary care physician(s) and/or pharmacist. Visit Information Visit Diagnosis: Diagnoses This Visit Medical screening exam ([id number]) If you received any narcotics, sedation, or [...] Reason for Visit: Patient arrives to for [place] physical Allergies: Substance Reaction Symptoms Type Comments [...] for Disease Control and Prevention February 2014 [facility] Urgent Care Note- Provideron 02-18-2021 Urgent Care Note- Provider Patient: MADDIE RAMAN Age: 25 years Sex: FEMALE : 1995 Associated Diagnoses: None Author: Adam Moncada PA-C Basic Information Additional information: Chief Complaint from Nursing Triage Note : Chief Complaint 02/18/2021 13:34 EDT Chief Complaint Patient arrives to for [place] physical . History of Present Illness Patient presents for a pre-employment physical. She is cleared for work. Exam is normal. See scanned document. PSYCHIATRIC: Mood and affect appropriate. Health Status Allergies: Allergic Reactions (Selected) No known allergies. Past Medical/ Family/ Social History Medical history: No active or resolved past medical history items have been selected or recorded.. Surgical history: Cholecystectomy ([id number]). Hip replacement ([id number]). delivery ([id number]). Cardiac ablation system ([id number]).. Family history: No family history items have [...] % Oxygen Therapy Room air . Normal [facility] [place] 021 Urgent Care Record [facility] ? Urgent Care [address] [place] [address] PATIENT DISCHARGE INSTRUCTIONS Patient Information Name: MADDIE RAMAN Age: 25 Years Date of : 1995 Reason For Visit: Medical screening exam; [facility] Arrival Time: 02/18/2021 13:01:04 Primary Care Physician: Provider, Unlisted Attending Physician: Adam Moncada PA-C Comment: Visit Diagnosis: Diagnoses This Visit Medical screening exam ([id number]) If you received any narcotics, sedation, or [...] and treatment you received today in the [facility] Urgent Care were for an urgent problem and are not intended as complete care. It is important for you to follow up with a doctor, nurse practitioner, or physician?s nurses assistant for ongoing care. If your symptoms [...] so we can reach you if necessary. [facility] has provided you with a complete list of medications post discharge. 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 yeast pumper/provider of your visit and for further instruction [...] Disease Control and Prevention February 2014 Normal [facility] PROGESTERONEon 05-25-2020 Progesterone 3.3 ng/mL Normal [facility] Comment on above: Result Comment: Foll icular phase 0.1 - 0.9 Luteal phase 1.8 - 23.9 Ovulation phase 0.1 - 12.0 First trimester 11.0 - 44.3 Second trimester 25.4 - 83.3 Third trimester 58.7 - 214.0 Postmenopausal 0.0 - 0.1 Performed By: #### P ROSA #### [facility] [address] [place], [place] [address] Sebastian Ordoñez Hgb/Hcton 02-22-2019 Hematocrit (Bld) [Volume fraction] 28.7 % Low 36-46 [facility] Comment on above: Performed By: #### H H #### [facility] [address] [place] [address] Recordist Chief: Remy Haq DO Hemoglobin (Bld) [Mass/Vol] 9.4 g/dL Low 12.0-16.0 [facility] Comment on above: Performed By: #### H H #### [facility] [address] [place] [address] Recordist Chief: Remy Haq DO Basic Metabolic Profon 02-20 (cont.) Normal [facility] Comment on above: Result Comment: Aver age GFR for 20-29 years old: 116 mL/min/1.73sq m Chronic Kidney Disease: <60 mL/min/1.73sq m Kidney failure: <15 mL/min/1.73sq m eGFR calculated using average adult body mass. Additional eGFR calculator available at: http://www.[employer].Picreel/multiple_crcl_2012.htm Performed By: #### C JAMA, BMP #### [facility] [address] [place], [place] [id number] Recordist Chief: Remy Haq DO Anion gap [Moles/Vol] 13 mmol/L Normal 9-17 [facility] Comment on above: Performed By: #### C JAMA, BMP #### [facility] [address] [place] [address] Recordist Chief: Remy Haq DO Calcium [Mass/Vol] 8.8 mg/dL Normal 8.6-10.4 [facility] Comment on above: Performed By: #### C BC, BMP #### [facility] [address] [place] [address] Recordist Chief: Remy Haq DO Chloride [Moles/Vol] 103 mmol/L Normal 98-107 [facility] Comment on above: Performed By: #### C BC, BMP #### [facility] [address] [place] [address] Recordist Chief: Remy Haq DO CO2 [Moles/Vol] 25 mmol/L Normal 20-31 [facility] Comment on above: Performed By: #### C BC, BMP #### [facility] [place] [address] Recordist Chief: Remy Haq DO Creatinine [Mass/Vol] 0.72 mg/dL Normal 0.50-0.90 [facility] Comment on above: Performed By: #### C JAMA, BMP #### [facility] [place] [address] Recordist Chief: Remy Haq DO GFR, Amer >60 Normal >60 [facility] Comment on above: Performed By: #### C BC, BMP #### [facility] [address] [facility] [place] [address] Recordist Chief: Remy Haq DO GFR,non Amer >60 Normal >60 [facility] Comment on above: Performed By: #### C BC, BMP #### [facility] [place] [address] Recordist Chief: Remy Haq DO Glucose [Mass/Vol] 96 mg/dL Normal 70-99 [facility] Comment on above: Performed By: #### C BC, BMP #### [facility] [address] [place] [address]. [place] [address] Recordist Chief: Remy Haq DO Potassium [Moles/Vol] 4.0 mmol/L Normal 3.7-5.3 [facility] Comment on above: Performed By: #### Joy YUN, BMP #### [facility] [place] [address] Recordist Chief: Remy Haq DO Sodium [Moles/Vol] 141 mmol/L Normal 135-144 [facility] Comment on above: Performed By: #### Joy YUN, BMP #### [facility] [address] [place] [address] 22888 Recordist Chief: Remy Haq DO Urea nitrogen [Mass/Vol] 10 mg/dL Normal 6-20 [facility] Comment on above: Performed By: #### Joy YUN, BMP #### [facility] [address] [place] [address]. [place] [address] Recordist Chief: Remy Haq DO BUN/CRE Ratio NOT REPORTED Normal 9-20 [facility] Comment on above: Performed By: #### Joy YUN, BMP #### [facility] [address] [place] [address] 31757 Recordist Chief: Remy Haq DO Staging: NOT REPORTED Normal [facility] Comment on above: Performed By: #### Joy YUN, BMP #### [facility] [address] [place] [address] 55140 Recordist Chief: Remy Haq DO CBCon 02-20-2019 Erythrocyte distribution width (RBC) [Ratio] 16.5 % High 11.5-14.9 [facility] Comment on above: Performed By: #### Joy YUN, BMP #### [facility] [address] [place] [address] 69413 Recordist Chief: Remy Haq DO Hematocrit (Bld) [Volume fraction] 25.9 % Low 36-46 [facility] Comment on above: Performed By: #### Joy YUN, BMP #### [facility] [address] [place] [address] 57776 Recordist Chief: Remy Haq DO Hemoglobin (Bld) [Mass/Vol] 8.6 g/dL Low 12.0-16.0 [facility] Comment on above: Performed By: #### Joy YUN, BMP #### [facility] [address] [place] [address] 50979 Recordist Chief: Remy Haq DO MCH (RBC) [Entitic mass] 28.2 pg Normal 26-34 [facility] Comment on above: Performed By: #### Joy YUN, BMP #### [facility] [address] [place] [address] 38263 Recordist Chief: Remy Haq DO MCHC (RBC) [Mass/Vol] 33.0 g/dL Normal 31-37 [facility] Comment on above: Performed By: #### Joy YUN, BMP #### [facility] [address] [place] [address] 20637 Recordist Chief: Remy Haq DO MCV (RBC) [Entitic vol] 85.4 fL Normal 80-100 [facility] Comment on above: Performed By: #### Joy YUN, BMP #### [facility] [address] [place] [address] 35802 Recordist Chief: Remy Haq DO Platelet mean volume (Bld) [Entitic vol] 6.7 fL Normal 6.0-12.0 [facility] Comment on above: Performed By: #### Joy YUN, BMP #### [facility] [address] [place] [address] Recordist Chief: Remy Haq DO Platelets (Bld) [#/Vol] 419 10*3/uL Normal 150-450 [facility] Comment on above: Performed By: #### Joy YUN, BMP #### [facility] [address] [place] [address] Recordist Chief: Remy Haq DO RBC (Bld) [#/Vol] 3.03 10*6/uL Low 4.0-5.2 [facility] Comment on above: Performed By: #### Joy YUN, BMP #### [facility] [address] [place] [address] Recordist Chief: Remy Haq DO WBC (Bld) [#/Vol] 6.3 10*3/uL Normal 3.5-11.0 [facility] Comment on above: Performed By: #### Joy YUN, BMP #### [facility] [facility] [place] [address] Recordist Chief: Remy Haq DO NRBC Automated NOT REPORTED Normal [facility] Comment on above: Performed By: #### Joy YUN, BMP #### [facility] [facility] [place] [address] Recordist Chief: Remy Haq DO Hgb/Hcton 02-20-2019 Hematocrit (Bld) [Volume fraction] 29.6 % Low 36-46 [facility] Comment on above: Performed By: #### H H #### [facility] [address] [facility] [place] [address] Recordist Chief: Remy Haq DO Hemoglobin (Bld) [Mass/Vol] 9.7 g/dL Low 12.0-16.0 [facility] Comment on above: Performed By: #### H H #### [facility] [place] [address] Recordist Chief: Remy Haq DO CBCon 02-19-2019 Erythrocyte distribution width (RBC) [Ratio] 16.6 % High 11.5-14.9 [facility] Comment on above: Performed By: #### C BC #### [facility] [address] [place] [address] Recordist Chief: Remy Haq DO Hematocrit (Bld) [Volume fraction] 23.2 % Low 36-46 [facility] Comment on above: Performed By: #### C BC #### [facility] [address] [place] [address] Recordist Chief: Remy Haq DO Hemoglobin (Bld) [Mass/Vol] 7.6 g/dL Low 12.0-16.0 [facility] Comment on above: Performed By: #### C BC #### [facility] [place] [address] Recordist Chief: Remy Haq DO MCH (RBC) [Entitic mass] 27.8 pg Normal 26-34 [facility] Comment on above: Performed By: #### C BC #### [facility] [place] [address] Recordist Chief: Remy Haq DO MCHC (RBC) [Mass/Vol] 32.7 g/dL Normal 31-37 [facility] Comment on above: Performed By: #### C BC #### [facility] [place] [address] Recordist Chief: Remy Haq DO MCV (RBC) [Entitic vol] 85.0 fL Normal 80-100 [facility] Comment on above: Performed By: #### C BC #### [facility] [place] [address] Recordist Chief: Remy Haq DO Platelet mean volume (Bld) [Entitic vol] 6.5 fL Normal 6.0-12.0 [facility] Comment on above: Performed By: #### C BC #### [facility] [address] [place] [address] Recordist Chief: Remy Haq DO Platelets (Bld) [#/Vol] 444 10*3/uL Normal 150-450 [facility] Comment on above: Performed By: #### C BC #### [facility] [address] [place] [address] Recordist Chief: Remy Haq DO RBC (Bld) [#/Vol] 2.73 10*6/uL Low 4.0-5.2 [facility] Comment on above: Performed By: #### C BC #### [facility] [place] [address] Recordist Chief: Remy Haq DO WBC (Bld) [#/Vol] 5.1 10*3/uL Normal 3.5-11.0 [facility] Comment on above: Performed By: #### C BC #### [facility] [place] [address] Recordist Chief: Remy Haq DO NRBC Automated NOT REPORTED Normal [facility] Comment on above: Performed By: #### C BC #### [facility] [place] [address] Recordist Chief: Remy Haq DO Type + Crossmatchon 02-20-20 19 Type + Crossmatch Sample Expiration 02/22/2019 Arm Band Number [id number] ABO/Rh(D) A POSITIVE Antibody Screen NEGATIVE Blood Bank Comment Pt's ABRh confirmed as A POS:402 Results Verified BLANCHE, Polyspecific NEGATIVE BLANCHE, Anti-IgG [place] Serum NEGATIVE Antibody Ident Anti-[place](A) Present Unit Number [id number] Blood Component Type Leukocyte Reduced Red Cell Unit Division 00 Status of Unit TRANSFUSED Transfusion Status OK TO TRANSFUSE Crossmatch Result COMPATIBLE Normal [facility] Comment on above: Performed By: #### T YX #### [facility] [address] [place] [address]14 Recordist Chief: Remy Haq DO Basic Metab w/rfx MGon 02-16 (cont.) Normal [facility] Comment on above: Result Comment: Aver age GFR for 20-29 years old: 116 mL/min/1.73sq m Chronic Kidney Disease: <60 mL/min/1.73sq m Kidney failure: <15 mL/min/1.73sq m eGFR calculated using average adult body mass. Additional eGFR calculator available at: http://www.[employer]/multiple_crcl_2012.htm Performed By: #### B MPX, CBC #### [facility] [address] [place] [address]76 Recordist Chief: Remy Haq DO Anion gap [Moles/Vol] 11 mmol/L Normal 9-17 [facility] Comment on above: Performed By: #### B MPX, CBC #### [facility] [address] [place] [address] 07178 Recordist Chief: Remy Haq DO Calcium [Mass/Vol] 8.6 mg/dL Normal 8.6-10.4 [facility] Comment on above: Performed By: #### B MPX, CBC #### [facility] [address] [place] [address] 10934 Recordist Chief: Remy Haq DO Chloride [Moles/Vol] 100 mmol/L Normal 98-107 [facility] Comment on above: Performed By: #### B MPX, CBC #### [facility] [address] [place] [address] 26158 Recordist Chief: Remy Haq DO CO2 [Moles/Vol] 26 mmol/L Normal 20-31 [facility] Comment on above: Performed By: #### B MPX, CBC #### [facility] [address] [place] [address] Recordist Chief: Remy Haq DO Creatinine [Mass/Vol] 0.62 mg/dL Normal 0.50-0.90 [facility] Comment on above: Performed By: #### B MPX, CBC #### [facility] [address] [place] [address] Recordist Chief: Remy Haq DO GFR, Amer >60 Normal >60 [facility] Comment on above: Performed By: #### B MPX, CBC #### [facility] [address] [place] [address] Recordist Chief: Remy Haq DO GFR,non Amer >60 Normal >60 [facility] Comment on above: Performed By: #### B MPX, CBC #### [facility] [facility] [place] [address] Recordist Chief: Remy Haq DO Glucose [Mass/Vol] 95 mg/dL Normal 70-99 [facility] Comment on above: Performed By: #### B MPX, CBC #### [facility] [place] [address] Recordist Chief: Remy Haq DO Potassium [Moles/Vol] 4.2 mmol/L Normal 3.7-5.3 [facility] Comment on above: Performed By: #### B MPX, CBC #### [facility] [address] [place] [address] Recordist Chief: Remy Haq DO Sodium [Moles/Vol] 137 mmol/L Normal 135-144 [facility] Comment on above: Performed By: #### B MPX, CBC #### [facility] [address] [facility] [place] [address] Recordist Chief: Remy Haq DO Urea nitrogen [Mass/Vol] 11 mg/dL Normal -20 [facility] Comment on above: Performed By: #### B MPX, CBC #### [facility] [address] [place] [address]. [place] [address] Recordist Chief: Remy Haq DO BUN/CRE Ratio NOT REPORTED Normal -20 [facility] Comment on above: Performed By: #### B MPX, CBC #### [facility] [address] [place] [address] 50866 Recordist Chief: Remy Haq DO Staging: NOT REPORTED Normal [facility] Comment on above: Performed By: #### B MPX, CBC #### [facility] [address] [place] [address] 22393 Recordist Chief: Remy Haq DO CBCon 02-16-2019 Erythrocyte distribution width (RBC) [Ratio] 16.3 % High 11.5-14.9 [facility] Comment on above: Performed By: #### B MPX, CBC #### [facility] [address] [place] [address] 42991 Recordist Chief: Remy Haq DO Hematocrit (Bld) [Volume fraction] 22.4 % Low 36-46 [facility] Comment on above: Performed By: #### B MPX, CBC #### [facility] [address] [place] [address] 36549 Recordist Chief: Remy Haq DO Hemoglobin (Bld) [Mass/Vol] 7.6 g/dL Low 12.0-16.0 [facility] Comment on above: Performed By: #### B MPX, CBC #### [facility] [address] [place] [address] Recordist Chief: Remy Haq DO MCH (RBC) [Entitic mass] 29.4 pg Normal 26-34 [facility] Comment on above: Performed By: #### B MPX, CBC #### [facility] [address] [place] [address] 87877 Recordist Chief: Remy Haq DO MCHC (RBC) [Mass/Vol] 33.8 g/dL Normal 31-37 [facility] Comment on above: Performed By: #### Adam MPX, CBC #### [facility] [address] [place] [address] 50131 Recordist Chief: Remy Haq DO MCV (RBC) [Entitic vol] 87.1 fL Normal 80-100 [facility] Comment on above: Performed By: #### Adam MPX, CBC #### [facility] [address] [place] [address] 07855 Recordist Chief: Remy Haq DO Platelet mean volume (Bld) [Entitic vol] 6.4 fL Normal 6.0-12.0 [facility] Comment on above: Performed By: #### Adam MPX, CBC #### [facility] [address] [place] [address] 79273 Recordist Chief: Remy Haq DO Platelets (Bld) [#/Vol] 503 10*3/uL High 150-450 [facility] Comment on above: Performed By: #### Adam MPX, CBC #### [facility] [address] [place] [address] 10301 Recordist Chief: Remy Haq DO RBC (Bld) [#/Vol] 2.57 10*6/uL Low 4.0-5.2 [facility] Comment on above: Performed By: #### Adam MPX, CBC #### [facility] [address] [facility] [place] [address] Recordist Chief: Remy Haq DO WBC (Bld) [#/Vol] 7.5 10*3/uL Normal 3.5-11.0 [facility] Comment on above: Performed By: #### B MPX, CBC #### [facility] [address] [facility] [place] [address] Recordist Chief: Remy Haq DO NRBC Automated NOT REPORTED Normal [facility] Comment on above: Performed By: #### B MPX, CBC #### [facility] [address] [facility] [place] [address] Recordist Chief: Remy Haq DO Basic Metabolic Panel w/ Ref savanah to MGon 02-15-2019 Anion gap [Moles/Vol] 14 mmol/L 9 - 17 mmol/L [place] Bun/Cre Ratio NOT REPORTED [place] Calcium [Mass/Vol] 8.4 mg/dL Low 8.6 - 10. 4 mg/dL [place] Chloride [Moles/Vol] 102 mmol/L 98 - 10 7 mmol/L [place] CO2 [Moles/Vol] 24 mmol/L 20 - 31 mmol/L [place] Creatinine [Mass/Vol] 0.57 mg/dL 0.5 - 0.9 mg/dL [place] GFR >60 >60 mL/min [place] GFR Non- >60 >60 mL/min [place] GFR/1.73 sq M predicted among non-blacks MDRD (S/P/Bld) [Vol rate/Area] [place] Comment on above: Average GFR for 20-2 9 years old: 116 mL/min/1.73sq m Chronic Kidney Disease: <60 mL/min/1.73sq m Kidney failure: <15 mL/min/1.73sq m eGFR calculated using average adult body mass. Additional eGFR calculator available at: http://www.[employer]/multiple_crcl_2012.htm GFR/1.73 sq M predicted among non-blacks MDRD (S/P/Bld) [Vol rate/Area] NOT REPORTED [place] Glucose [Mass/Vol] 106 mg/dL High 70 - 99 mg/dL [place] Interpretation and review of laboratory results Abnormal [place] Potassium [Moles/Vol] 4.0 mmol/L 3.7 - 5.3 mmol/L [place] Sodium [Moles/Vol] 140 mmol/L 135 - 144 mmol/L [place] Urea nitrogen [Mass/Vol] 11 mg/dL 6 - 20 mg/dL [place] CBC WITH AUTO DIFFERENTIALon 02-15-2019 Basophils (Bld) [#/Vol] 0.06 10*3/uL [place] Basophils/100 WBC (Bld) 1 % 0 - 2 % [place] Differential Type NOT REPORTED [place] Eosinophils (Bld) [#/Vol] 0.33 10*3/uL [place] Eosinophils/100 WBC (Bld) 5 % High 1 - 4 % [place] Erythrocyte distribution width (RBC) [Ratio] 15.3 % High 11.8 - 14.4 % [place] Hematocrit (Bld) [Volume fraction] 24.9 % Low 36.3 - 47.1 % [place] Hemoglobin (Bld) [Mass/Vol] 7.5 g/dL Low 11.9 - 15.1 g/dL [place] Immature granulocytes (Bld) [#/Vol] 1 % High 0 [place] Immature granulocytes (Bld) [#/Vol] 0.10 10*3/uL [place] Interpretation and review of laboratory results Abnormal [place] Lymphocytes (Bld) [#/Vol] 1.93 10*3/uL [place] Lymphocytes/100 WBC (Bld) 27 % 24 - 43 % [place] MCH (RBC) [Entitic mass] 28.2 pg 25.2 - 33.5 pg [place] MCHC (RBC) [Mass/Vol] 30.1 g/dL 28.4 - 34.8 g/dL [place] MCV (RBC) [Entitic vol] 93.6 fL 82.6 - 102.9 fL [place] Monocytes (Bld) [#/Vol] 0.60 10*3/uL [place] Monocytes/100 WBC (Bld) 8 % 3 - 12 % [place] Platelet mean volume (Bld) [Entitic vol] 9.0 fL 8.1 - 13.5 fL [place] Platelets (Bld) [#/Vol] 458 10*3/uL [place] Platelets (Bld) [#/Vol] NOT REPORTED [place] RBC (Bld) [#/Vol] 2.66 10*6/uL Low 3.95 - 5.1 1 m/uL [place] RBC morphology finding Nom (Bld) ANISOCYTOSIS PRESENT [place] Segmented neutrophils/100 WBC (Bld) 58 % 36 - 65 % [place] Segs Absolute 4.19 [place] WBC (Bld) [#/Vol] 7.2 10*3/uL [place] WBC (Bld) [#/Vol] 0.0 10*3/uL 0.0 per 10 0 WBC [place] WBC Morphology NOT REPORTED [place] Basic Metabolic Panel w/ Ref savanah to MGon 02-13-2019 Anion gap [Moles/Vol] 13 mmol/L 9 - 17 mmol/L [place] Bun/Cre Ratio NOT REPORTED [place] Calcium [Mass/Vol] 8.5 mg/dL Low 8.6 - 10. 4 mg/dL [place] Chloride [Moles/Vol] 105 mmol/L 98 - 10 7 mmol/L [place] CO2 [Moles/Vol] 23 mmol/L 20 - 31 mmol/L [place] Creatinine [Mass/Vol] 0.46 mg/dL Low 0.5 - 0.9 mg/dL [place] GFR >60 >60 mL/min [place] GFR Non- >60 >60 mL/min [place] GFR/1.73 sq M predicted among non-blacks MDRD (S/P/Bld) [Vol rate/Area] NOT REPORTED [place] GFR/1.73 sq M predicted among non-blacks MDRD (S/P/Bld) [Vol rate/Area] [place] Comment on above: Average GFR for 20-2 9 years old: 116 mL/min/1.73sq m Chronic Kidney Disease: <60 mL/min/1.73sq m Kidney failure: <15 mL/min/1.73sq m eGFR calculated using average adult body mass. Additional eGFR calculator available at: http://www.[employer]/multiple_crcl_2011.htm Glucose [Mass/Vol] 86 mg/dL 70 - 99 mg/dL [place] Interpretation and review of laboratory results Abnormal [place] Potassium [Moles/Vol] 4.3 mmol/L 3.7 - 5.3 mmol/L [place] Sodium [Moles/Vol] 141 mmol/L 135 - 144 mmol/L [place] Urea nitrogen [Mass/Vol] 9 mg/dL 6 - 20 mg/dL [place] CBC WITH AUTO DIFFERENTIALon 02-13-2019 Basophils (Bld) [#/Vol] 0.06 10*3/uL [place] Basophils/100 WBC (Bld) 1 % 0 - 2 % [place] Differential Type NOT REPORTED [place] Eosinophils (Bld) [#/Vol] 0.40 10*3/uL [place] Eosinophils/100 WBC (Bld) 5 % High 1 - 4 % [place] Erythrocyte distribution width (RBC) [Ratio] 14.8 % High 11.8 - 14.4 % [place] Hematocrit (Bld) [Volume fraction] 25.0 % Low 36.3 - 47.1 % [place] Hemoglobin (Bld) [Mass/Vol] 7.4 g/dL Low 11.9 - 15.1 g/dL [place] Immature granulocytes (Bld) [#/Vol] 2 % High 0 [place] Immature granulocytes (Bld) [#/Vol] 0.14 10*3/uL [place] Interpretation and review of laboratory results Abnormal [place] Lymphocytes (Bld) [#/Vol] 2.18 10*3/uL [place] Lymphocytes/100 WBC (Bld) 25 % 24 - 43 % [place] MCH (RBC) [Entitic mass] 27.1 pg 25.2 - 33.5 pg [place] MCHC (RBC) [Mass/Vol] 29.6 g/dL 28.4 - 34.8 g/dL [place] MCV (RBC) [Entitic vol] 91.6 fL 82.6 - 102.9 fL [place] Monocytes (Bld) [#/Vol] 0.66 10*3/uL [place] Monocytes/100 WBC (Bld) 8 % 3 - 12 % [place] Platelet mean volume (Bld) [Entitic vol] 8.9 fL 8.1 - 13.5 fL [place] Platelets (Bld) [#/Vol] 440 10*3/uL [place] Platelets (Bld) [#/Vol] NOT REPORTED [place] RBC (Bld) [#/Vol] 2.73 10*6/uL Low 3.95 - 5.1 1 m/uL [place] RBC morphology finding Nom (Bld) ANISOCYTOSIS PRESENT [place] Segmented neutrophils/100 WBC (Bld) 61 % 36 - 65 % [place] Segs Absolute 5.37 [place] WBC (Bld) [#/Vol] 0.0 10*3/uL 0.0 per 10 0 WBC [place] WBC (Bld) [#/Vol] 8.8 10*3/uL [facility] NOT RE[facility]ED [facility] BLAINE KELSEY ECHO Complete 2D W Doppler W Coloron 02-13-2019 Transthoracic Echocardiography Report (TTE) Patient Name CECI PERKINS Date of Study 02/13/2019 C Date of 1995 Gender Female Age 23 year(s) Race Unknown Room Number 0240 Height: 65 inch, 165.1 cm Corporate ID [id number] Weight: 301 pounds, 136.5 kg # Patient Acct [id number] BSA: 2.35 m^2 BMI: 50.09 kg/m^2 # MR # [id number] Recycling Specialist Kaylen Jasso Interpreting Physician Anthony Keating Fellow Referring Nurse Practitioner Interpreting Referring Physician MICHAEL BULLOCK MD Fellow Type of Study TTE procedure:2D Echocardiogram, M-Mode, Doppler, Color Doppler. Procedure Date Date: 02/13/2019 Start: 08:48 AM Study Location: [facility] Technical Quality: Adequate visualization Indications:Irregula [...] Wall E' velocity:0.17 m/s Lateral Wall E/E':5.8 [place], [place] Tamir, Mhpn Incoming Cardio Results From [facility] - 02/13/2019 2:01 PM EDT Transthoracic Echocardiography Report (TTE) Patient Name CECI PERKINS Date of Study 02/13/2019 C Date of 1995 Gender Female Age 23 year(s) Race Unknown Room Number 0240 Height: 65 inch, 165.1 cm Corporate ID [id number] Weight: 301 pounds, 136.5 kg # Patient Acct [id number] BSA: 2.35 m^2 BMI: 50.09 kg/m^2 # MR # [id number] Recycling Specialist Kaylen Jasso Interpreting Physician Anthony Keating Fellow Referring Nurse Practitioner Interpreting Referring Physician MICHAEL BULLOCK MD Fellow Type of Study TTE procedure:2D Echocardiogram, M-Mode, Doppler, Color Doppler. Procedure Date Date: 02/13/2019 Start: 08:48 AM Study Location: [facility] Technical Quality: Adequate visualization Indications:Irregula [...] Wall E' velocity:0.17 m/s Lateral Wall E/E':5.8 [facility] [place] EKG 12 Leadon 02-11-2019 Atrial Rate 99 BPM [place] P [place] 69 degrees [place] P-R Interval 136 ms [place] Q-T Interval 344 ms [place] QRS Duration 80 ms [place] QTc Calculation (Bazett) 441 ms [place] R [place] 16 degrees [place] T [place] 4 degrees [place] Ventricular Rate 99 BPM [place] Tam[place], Mhpn Incoming Ekg [place] [facility] [place] 02/11/[place] 11:00 AM EDT Normal sinus rhythm Cannot rule out Anterior infarct , age undetermined Abnormal ECG When compared with ECG of 31-JAN-2019 19:55, No significant change was found [place] Normal sinus rhythm Cannot rule out Anterior infarct , age undetermined Abnormal ECG When compared with ECG of 31-JAN-2019 19:55, No significant change was found [place] HEMOGLOBIN AND HEMATOCRIT, B LOODon 02-11-2019 Hematocrit (Bld) [Volume fraction] 27.0 % Low 36.3 - 47.1 % [place] Hemoglobin (Bld) [Mass/Vol] 8.3 g/dL Low 11.9 - 15.1 g/dL [place] Interpretation and review of laboratory results Abnormal [place] Microscopic Urinalysison Amorphous, UA NOT REPORTED None [place] Bacteria, UA NOT REPORTED None [place] Casts UA [place] Crystals UA NOT REPORTED None /HPF [place] Epithelial Cells UA 0 TO 2 [place] Mucus, UA NOT REPORTED None [place] Other Observations UA NOT REPORTED NOT REQ. M [place] RBC (U) [#/Vol] 5 TO 10 [place] Comment on above: Reference range defi xiomy for non-centrifuged specimen. Renal Epithelial, Urine NOT REPORTED 0 /HPF [place] Trichomonas, UA NOT REPORTED None [place], [place] WBC, UA TOO NUMEROUS TO COUNT [place], [place] Yeast, UA NOT REPORTED None [place], [place] - [place] URINALYSISon 02-11-2019 Bilirubin Urine Negative NEGATIVE [place], [place] Color, UA YELLOW YELLOW [place], [place] Glucose, Ur Negative NEGATIVE [place], [place] Interpretation and review of laboratory results Abnormal [place], [place] Ketones Ql (U) Negative NEGATIVE [place], [place] Leukocyte esterase Test strip Ql (U) LARGE Abnormal NEGATIVE [place], [place] Nitrite, Urine Negative NEGATIVE [place], [place] pH, UA 5.0 [place], [place] Protein (U) [Mass/Vol] Negative NEGATIVE [place], [place] Specific [place], UA 1.013 [place], [place] Turbidity UA CLOUDY Abnormal CLEAR [place], [place] Urinalysis Comments NOT REPORTED [place], [place] Urine Hgb MODERATE Abnormal NEGATIVE [place], [place] Urobilinogen, Urine Normal Normal [place] HEMOGLOBIN AND HEMATOCRIT, B LOODon 02-10-2019 Hematocrit (Bld) [Volume fraction] 22.5 % Low 36.3 - 47.1 % [place], [place] Hemoglobin (Bld) [Mass/Vol] 6.8 g/dL Critically low 11.9 - 15.1 g/dL [place], [place] Interpretation and review of laboratory results Abnormal [place], [place] TYPE AND SCREENon 02-10-2019 ABO/Rh Positive [place], KY Arm Band Number [id number] [place], [place] Blood product type Nom (BPU) Leukocyte Reduced Red Cell [place], [place] Crossmatch Result COMPATIBLE [facility] Jasmin [place], [place] Dispense Status TRANSFUSED [place] Expiration Date 02/10/2019 [facility] [place] [place] Transfusion Status OK TO TRANSFUSE [place], [place] Unit Divison 0 [place], [place] Unit Number [id number] [place], [place] CT PELVIS WO CONTRAST Additi onal Contrast? Noneon 02-09-2019 Tamir, Mhpn Incoming Radiant Results From [facility]/Colibrias - 02/09/2019 12:47 PM EDT EXAMINATION: CT [...] extends anterior to the inferior pubic ramus. [place], [place] EXAMINATION: CT OF THE PELVIS WITHOUT [...] chris edema and small foci of air. [place], [place] 1. Improved alignment of the right posterior wall acetabular fracture status post ORIF. 2. Small intra-articular right hip loose bodies. 3. The long screw extends anterior to the inferior pubic ramus. [place] HEMOGLOBIN AND HEMATOCRIT, B LOODon 02-09-2019 Hematocrit (Bld) [Volume fraction] 19.2 % Low 36.3 - 47.1 % [place] Hemoglobin (Bld) [Mass/Vol] 5.9 g/dL Critically low 11.9 - 15.1 g/dL [place], [place] Comment on above: TEST CONFIRMED Interpretation and review of laboratory results Abnormal [place] Hematocrit (Bld) [Volume fraction] 21.2 % Low 36.3 - 47.1 % [place] Hemoglobin (Bld) [Mass/Vol] 6.6 g/dL Critically low 11.9 - 15.1 g/dL [place], [place] Comment on above: TEST CONFIRMED Interpretation and review of laboratory results Abnormal [place], [place] Hematocrit (Bld) [Volume fraction] 23.6 % Low 36.3 - 47.1 % [place] Hemoglobin (Bld) [Mass/Vol] 7.2 g/dL Low 11.9 - 15.1 g/dL [place], [place] Interpretation and review of laboratory results Abnormal [place], [place] CV HGB/HCTon 02-08-2019 Hematocrit (Bld) [Volume fraction] 24.4 % [place], [place] Hemoglobin (Bld) [Mass/Vol] 7.8 g/dL gm/dL [place], [place] POCT urine pregnancyon 02-08 Beta HCG ( test) Ql (U) Negative NEGATIVE [place], [place] Comment on above: Specimens with hCG [...] 02-08-2019 Tamir, Mhpn Incoming Radiant Results From [employer] - 02/08/2019 1:24 PM EDT EXAMINATION: THREE XRAY VIEWS OF THE RIGHT FOOT 02/08/2019 1:12 pm COMPARISON: Right ankle radiographs February 01, 2019 HISTORY: ORDERING SYSTEM PROVIDED HISTORY: Trauma/Fracture TECHNOLOGIST PROVIDED HISTORY: Trauma/Fracture FINDINGS: No fracture or dislocation. IMPRESSION: No acute osseous abnormality [facility] EXAMINATION: THREE XRAY VIEWS OF THE RIGHT FOOT 02/08/2019 1:12 pm COMPARISON: Right ankle radiographs February 01, 2019 HISTORY: ORDERING SYSTEM PROVIDED HISTORY: Trauma/Fracture TECHNOLOGIST PROVIDED HISTORY: Trauma/Fracture FINDINGS: No fracture or dislocation. [facility] [employer] No acute osseous abnormality [facility] XR PELVIS (MIN 3 VIEWS)on EXAMINATION: ONE XRAY VIEW OF THE PELVIS 02/08/2019 12:48 pm COMPARISON: 01/31/2019 HISTORY: ORDERING SYSTEM PROVIDED HISTORY: AP,Judets. Post op pacu TECHNOLOGIST PROVIDED HISTORY: AP,Judets. Post op pacu FINDINGS: Status post internal fixation of the right acetabulum. Anatomic alignment. No hardware complications. [facility] Tamir, pn Incoming Radiant Results From [employer] - 02/08/2019 12:57 PM EDT EXAMINATION: ONE XRAY VIEW OF THE PELVIS 02/08/2019 12:48 pm COMPARISON: 01/31/2019 HISTORY: ORDERING SYSTEM PROVIDED HISTORY: AP,Judets. Post op pacu TECHNOLOGIST PROVIDED HISTORY: AP,Judets. Post op pacu FINDINGS: Status post internal fixation of the right acetabulum. Anatomic alignment. No hardware complications. IMPRESSION: Anatomic alignment status post internal fixation of the right acetabulum [facility] [employer] [employer] Anatomic alignment status post internal fixation of the right acetabulum [facility] Tamir, pn Incoming Radiant Results From [employer] - 02/08/2019 12:49 PM EDT EXAMINATION: ONE [...] fluoroscopic image of pelvis as described above. [facility] [place] EXAMINATION: ONE XRAY VIEW OF THE PELVIS 02/08/2019 12:39 pm COMPARISON: January 31, 2019 HISTORY: ORDERING SYSTEM PROVIDED HISTORY: intra op TECHNOLOGIST PROVIDED HISTORY: intra op FINDINGS: Intraoperative fluoroscopic image of pelvis demonstrates ORIF of right acetabular fracture with plate and screws, likely in gross anatomic alignment. A Crawley catheter is in place. [facility] [place] Intraoperative fluoroscopic image of pelvis as described above. [place] XR WRIST LEFT (MIN 3 VIEWS)o n 02-08-2019 1. Overlying cast/splint material limits evaluation of fine osseous detail. 2. Anatomic alignment of known transversely oriented nondisplaced distal left radius metaphyseal fracture after reduction. 3. No superimposed acute osseous abnormality identified. 4. Soft tissue swelling about the left wrist/distal left forearm. [facility] [place] Tamir, Mhpn Incoming Radiant Results From [employer] - 02/08/2019 6:06 PM EDT EXAMINATION: 3 [...] swelling about the left wrist/distal left forearm. [facility] [place] EXAMINATION: 3 XRAY VIEWS OF THE LEFT [...] the left wrist and distal left forearm. [place], [place] BASIC METABOLIC PANELon 01-20 Anion gap [Moles/Vol] 12 mmol/L 9 - 17 mmol/L [place], [place] Bun/Cre Ratio NOT REPORTED [place], [place] Calcium [Mass/Vol] 8.5 mg/dL Low 8.6 - 10. 4 mg/dL [place], [place] Chloride [Moles/Vol] 102 mmol/L 98 - 10 7 mmol/L [place], [place] CO2 [Moles/Vol] 24 mmol/L 20 - 31 mmol/L [place], [place] Creatinine [Mass/Vol] 0.54 mg/dL 0.5 - 0.9 mg/dL [place], [place] GFR >60 >60 mL/min [place], [place] GFR Non- >60 >60 mL/min [place], [place] GFR/1.73 sq M predicted among non-blacks MDRD (S/P/Bld) [Vol rate/Area] NOT REPORTED [place], [place] GFR/1.73 sq M predicted among non-blacks MDRD (S/P/Bld) [Vol rate/Area] [place], [place] Comment on above: Average GFR for 20-2 9 years old: 116 mL/min/1.73sq m Chronic Kidney Disease: <60 mL/min/1.73sq m Kidney failure: <15 mL/min/1.73sq m eGFR calculated using average adult body mass. Additional eGFR calculator available at: http://www.[employer].Picreel/multiple_crcl_2012.htm Glucose [Mass/Vol] 95 mg/dL 70 - 99 mg/dL [place], [place] Interpretation and review of laboratory results Abnormal [place], [place] Potassium [Moles/Vol] 4.6 mmol/L 3.7 - 5.3 mmol/L [place], [place] Sodium [Moles/Vol] 138 mmol/L 135 - 144 mmol/L [place], [place] Urea nitrogen [Mass/Vol] 14 mg/dL 6 - 20 mg/dL [place], [place] BLOOD BANK SPECIMENon 2018 Blood Bank Specimen NOT REPORTED [place], [place] CBCon 02-07-2019 Erythrocyte distribution width (RBC) [Ratio] 13.5 % 11.8 - 14.4 % [place], [place] Hematocrit (Bld) [Volume fraction] 28.1 % Low 36.3 - 47.1 % [place], [place] Hemoglobin (Bld) [Mass/Vol] 8.4 g/dL Low 11.9 - 15.1 g/dL [place], [place] Interpretation and review of laboratory results Abnormal [place], [place] MCH (RBC) [Entitic mass] 26.7 pg 25.2 - 33.5 pg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
--- NOTE | 2024-05-13 08:01 | US_ITS ---
The [address] [address] Patient Name: MADDIE ORNELAS MRN: [id number] date: 1995 Sex: F Assigned Patient Location: US Current Patient Location: US Accession/Order Number: [id number] Exam Date: 05/13/2024 08:04 Report Date: 05/13/2024 08:59 At the request of: ARMINDA WHITE Procedure: US OB transvaginal EXAMINATION: US OB transvaginal HISTORY: MISSED MENSES COMPARISON: No relevant comparison available. FINDINGS: GESTATIONAL SAC: Present and normal appearing. YOLK SAC: Present and normal appearing. POLE: Present and normal appearing. CARDIAC: Present. UTERUS: Small subchorionic hematoma(s). OVARIES: Right: Not seen. Left: Normal. CERVIX: Approximately 3.3 cm in length and closed. CUL-DE-SAC: Normal. OTHER: None. AGE BY LMP: Unknown LMP MERLINE BY LMP: AGE BY US CRL: 9 weeks 2 days MERLINE BY US CRL: 12/14/2024 US/US OB transvaginal IMPRESSION: 1. Single live intrauterine 9 weeks 2 days by today's ultrasound. Electronically authenticated by: ALISSON HARGROVE Date: 05/13/2024 08:59
== END 2024-05-13 07:58 | disposition home or self-care (01) ==
LOC: US 07:57
PROVIDERS: PCP Nurse Practitioner; Visit Provider Obstetrics & Gynecology
DX: Z34.91 Encounter for supervision of normal pregnancy, unspecified, first trimester (principal); Z3A.09 9 weeks gestation of pregnancy; N92.6 Irregular menstruation, unspecified
CPT/HCPCS: 76817

== ENCOUNTER 2024-06-06 14:00 | Outpatient (OUT) | payer OTHER, SELFPAY ==
--- OUTSIDE RECORDS SUMMARY | 2024-06-06 14:21 | XMS_ITS | CCD ---
Author Organization [facility] Care Team Providers [employer] Executive Director Name Role Phone Ally Craig Primary Care Provider TERRI AUGUSTIN Admitting Unavailable TERRI AUGUSTIN Attending Unavailable ALLY CRAIG Primary Care Unavailable VIDYA FERRER Consulting Unavailable ALANA, DR HILLIARD Attending Unavailable ALANA, DR HILLIARD Consulting Unavailable ALANA, DR HILLIARD Admitting Unavailable Jeane Canela Unavailable Kiara VICTIMS ADVOCATE CLERK/SPECIALIST - CITRIX ENGINEER, Ally Pop Primary Care Pro vider ALLY [...] source) strawberry allergenic extract Drug Allergy [facility] (3 sources) strawberry allergenic extract Drug Allergy 9 Anaphylaxis [place], [place] (1 source) [place] Propensity to adverse reactions 9 Anaphylaxis [facility] Medications Current Medications Medication Drug Class(es) Dates Sig (Normalized) Sig (Original) acetaminophen 500 mg oral tablet (1 source) Start: 02-01-2019 acetaminophen (TYLENOL) tablet 1,000 mg [id number] 200 actuat albuterol 0.09 mg/actuat metered dose [...] inhaler 2 puff amoxicillin 500 mg oral tablet (3 sources) Penicillin-class Antibacterial Start: 05-29-2024 End: 06-05-2024 take 1 tablet by mouth in the morning, then take 1 tablet by mouth in the evening, then take 1 tablet by mouth at bedtime amoxicillin (Amoxil) 500 MG tablet Indications: Strep throat Take 1 tablet (500 mg) by mouth in the morning and 1 tablet (500 mg) in the evening and 1 tablet (500 mg) before bedtime. Do all this for 7 days. 21 tablet 05/29/2024 06/05/2024 Active Start: 10-20-2023 take 500 mg by mouth every twelve hours Amoxicillin Active 500 MG PO Every 12 hours 20 October 20, 2023 12:00am Start: 03-19-2022 take 1 [...] mg busPIRone hydrochloride 7.5 mg oral tablet (6 sources) Start: 03-15-2024 take 1 tablet by [...] Start: 02-16-2019 take 1 tablet by hilary th once daily cetirizine (ZYRTEC) 10 MG tablet [...] by mouth every week vitamin D (ERGOCALCIFEROL) 18491 units CAPS capsule Take 1 capsule by [...] Iron Active lamoTRIgine 25 mg oral tablet (4 sources) Mood Stabilizer, Anti-epileptic Agent End: 05-29-2024 lamoTRIgine (LaMICtal) 25 MG tablet Take by mouth. 05/29/2024 Discontinued (Other) lidocaine 0.05 mg/mg medicated patch (3 sources) [...] Active Start: 02-15-2019 take 1 tablet by [facility] twice daily metoprolol tartrate (LOPRESSOR) 25 MG [...] (ROXICODONE) immed iate release tablet 5 mg MV-Min-Fe Fum-FA-DHA ( 1 PO) (1 source) MV-Min- Fe Fum-FA-DHA ( 1 PO) Active No.167-Folic Acid-Dha (One-A-Day ) 400 mcg- 25 mg tablet,chewable (1 source) Start: 4 No.167-Folic Acid-Dha (One-A-Day ) 400 mcg- 25 mg tablet,chewable Active TAB PO October 20, 2023 12:00am vit 10-iron fum-folic 65-1 mg tablet (1 source) Start: 2 take 1 tablet by mouth in the morning vit 10-iron fum-folic 65-1 mg tablet Indications: Morbid obesity (CMS-HCC) , Healthcare maintenance Take 1 tablet by mouth in the morning. 90 tablet 3 11/18/2021 Active sennosides, care home 8.6 mg oral tablet (2 sources) Start: 9 End: 9 take 1 tablet by mouth once daily senna (SENOKOT) 8.6 MG tablet Take 1 tablet by mouth nightly 30 tablet 0 02/10/2019 03/12/2019 Active sertraline 25 mg oral tablet (4 sources) Serotonin Reuptake Inhibitor End: 4 take 1 tablet by mouth in the morning sertraline (Zoloft) 25 MG tablet Take 25 mg by mouth in the morning. 05/29/2024 Discontinued (Other) Syringe With Needle (Bd Luer-Santy Syringe) 3 mL 25 x 1 1/2 syringe (1 source) Start: 4 Syringe With Needle (Bd Luer-Santy Syringe) 3 mL 25 x 1 1/2 syringe Active ML .ROUTE .MEDSUPPLY 100 October 20, 2023 12:00am As directed syringe with needle (BD LUER-SANTY SYRINGE) 3 mL 25 x 1 1/2 syringe (2 sources) Start: 4 syringe with needle (BD LUER-SANTY SYRINGE) 3 [...] 1 tablet ARIPiprazole 5 mg oral tablet (5 sources) Atypical Antipsychotic Start: 10-20-2023 End: 05-29-2024 take 5 mg by mouth once daily [...] on Wed02/08/19 at 1700, Last dose on Roxy 02/09/19 at 0100 2 ml fentaNYL 0.05 mg/ml [...] B12 Start: 02-09-2019 End: 02-09-2019 iron polysaccharide moefinh-S86-apomx acid (FERREX-FORTE) 150-0.025-1 MG capsule 1 mg [...] unspecified; Translations: [Fatigue] Onset: 03-15-2024 03-15-2024 Chronic Menstrual disorders (1 source) Missed period; Translations: [Irregular menstruation, unspecified] 05-29-2024 Chronic Mood disorders (9 sources) Depressive disorder; [...] weight gain] Onset: 03-15-2024 03-15-2024 Episodic Other and delivery including normal (2 sources) ; Translations: [Encounter for supervision of normal , unspecified, unspecified trimester] 05-29-2024 Episodic Other screening for suspected conditions (not mental disorders or infectious disease) (2 sources) Encounter for screening for lipoid disorders; Translations: [Patient encounter status] Onset: 03-15-2024 03-15-2024 Episodic Other upper respiratory infections (6 sources) Streptococcal sore throat; Translations: [Streptococcal pharyngitis] Onset: 06-20-2018 Resolved: 03-15-2024 10-20-2023 Episodic Residual codes; unclassified (2 sources) Past [...] cavity and sinuses] Onset: 07-16-2022 07-16-2022 Episodic Residual codes; unclassified (2 sources) History of radiofrequency ablation operation for arrhythmia; Translations: [Other specified postprocedural states] Onset: 02-01-2019 02-01-2019 Episodic Residual codes; unclassified (1 source) 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]; Translations: [Acquired absence of stomach (part of)] Onset: 11-12-2023 Episodic Results Test Name Value Interpretation Reference Range Facility HCG ( test) Ql (U)o n 05-29-2024 Interpretation and review of laboratory results Abnormal [facility] Preg Test, Ur Positive Negative [facility] Urinalysis macro (dipstick) panel (U)on 05-29-2024 Bilirubin, UA Negative Negative - 4(70) +++ mg/dL [facility] Blood, UA Negative Negative - 50 Miguel Angel/mcL [facility] Clarity, UA Clear [facility] Color, UA Yellow [facility] Glucose, UA Negative Negative - 2000(110) ++++ mg/dL [facility] Interpretation and review of laboratory results Abnormal [facility] Ketones, UA Positive Negative - 160(16) ++++ mg/dL [facility] Comment on above: trace Leukocytes, UA Negative Negative - 500+++ Eleonora/mcL [facility] Nitrite, UA Negative Negative - Positive [facility] pH, UA 6.5 5 - 9 [facility] Protein, UA Negative Negative - 2000(20) ++++ mg/dL [facility] Spec Grav, UA 1.02 1 - 1.03 [facility] Urobilinogen, UA 1.0 0.2 - 12 mg/dL [facility] PREG QUANT HCGon 05-12-2 024 HCG QUANTITATIVE 25378 mIU/mL [facility] Comment on above: 5-50 0.2-1 WEEK 50-500 1-2 WEEKS 100-5,000 2-3 WEEKS 500-10,000 3-4 WEEKS 1,000-50,000 4-5 WEEKS 10,000-100,000 5-6 WEEKS 15,000-200,000 6-8 WEEKS 10,000-100,000 2-3 MONTHS [facility] PREG QUANT HCGon 05-10- 024 HCG QUANTITATIVE 87922 mIU/mL [facility] Comment on above: 5-50 0.2-1 WEEK 50-500 1-2 WEEKS 100-5,000 2-3 WEEKS 500-10,000 3-4 WEEKS 1,000-50,000 4-5 WEEKS 10,000-100,000 5-6 WEEKS 15,000-200,000 6-8 WEEKS 10,000-100,000 2-3 MONTHS [facility] PREG QUANT HCGon 05-08-2 024 HCG QUANTITATIVE 85009 mIU/mL [facility] Comment on above: 5-50 0.2-1 WEEK 50-500 1-2 WEEKS 100-5,000 2-3 WEEKS 500-10,000 3-4 WEEKS 1,000-50,000 4-5 WEEKS 10,000-100,000 5-6 WEEKS 15,000-200,000 6-8 WEEKS 10,000-100,000 2-3 MONTHS [facility] URINE CULTUREon 01-20-2024 Bacteria identified [facility] (U) CULTURE RESULTS >100,000 ORGANISMS/mL ESCHERICHIA [...] TRIMETH/SULFAMETHOXA ZOLE R >=16/304 F Resistant [facility] Comment on above: Performed By: #### 6 30-4 #### [facility] ([id number]) [address], [address] [place] [address] Basic Metabolic Vasquez w/Rfx A1 Con 12-08-2023 GFR/1.73 sq M.predicted MDRD (S/P/Bld) [Vol rate/Area] mL/min/{1.73_m2} Normal [facility] Comment on above: Performed By: #### E BS LIPID, EMP BMP #### [facility] [address] [id number] [place] Calcium [Mass/volume] in Ser um or PlasmaOrdered By: Janna Escalera on 12-08-2023 Calcium [Mass/Vol] 9.5 mg/dL Normal 8.6-10.3 [facility] Comment on above: Performed By: #### E BS LIPID, EMP BMP #### [facility] [address] [place] [address] [place] Carbon dioxide, total [Moles /volume] in Serum or PlasmaOrdered By: Janna Escalera on 12-08-2023 CO2 [Moles/Vol] 29.1 mmol/L Normal 21.0-31.0 [facility] Comment on above: Performed By: #### E BS LIPID, EMP BMP #### [facility] [address] [id number] [place] Chloride [Moles/volume] in S radha or PlasmaOrdered By: Janna Escalera on 12-08-2023 Chloride [Moles/Vol] 105 mmol/L Normal 98-107 [facility] Comment on above: Performed By: #### E BS LIPID, EMP BMP #### [facility] [address] [place] [address] [place] Cholesterol [Mass/volume] in Serum or PlasmaOrdered By: Janna Escalera on 12-08-2023 Cholesterol [Mass/Vol] 163 mg/dL Normal 140-200 [facility] Comment on above: Chol less than 200 m g/dl low riskChol 201-239 mg/dl borderline riskChol 240 mg/dl and greater high risk Result Comment: Chol less than 200 mg/dl low risk Chol 201-239 mg/dl borderline risk Chol 240 mg/dl and greater high risk Performed By: #### E BS LIPID, EMP BMP #### [facility] [address] [place] [address] [place] Cholesterol in LDL Calc [Mas s/Vol]Ordered By: Janna Escalera on 12-08-2023 Cholesterol in LDL [Mass/Vol] 84 mg/dL 0-100 [facility] Comment on above: LDL ATP III CLASSIFI CATIONLDL less than 100 mg/dL OptimalLDL 100-129 mg/dL Near or above optimalLDL 130-159 mg/dL Borderline highLDL 160-189 mg/dL HighLDL greater than 189 mg/dL Very high Cholesterol in VLDL Calc [Ma ss/Vol]Ordered By: Janna Escalera on 12-08-2023 Cholesterol in VLDL [Mass/Vol] 17 mg/dL [facility] Creatinine [Mass/volume] in Serum or PlasmaOrdered By: Janna Escalera on 12-08-2023 Creatinine [Mass/Vol] 0.69 mg/dL Normal 0.60-1.[address] [facility] Comment on above: Performed By: #### E BS LIPID, EMP BMP #### [facility] [address] [place] [address] [place] Glucose [Mass/volume] in Ser um or PlasmaOrdered By: Janna Escalera on 12-08-2023 Glucose [Mass/Vol] 83 mg/dL Normal 70-100 [facility] Comment on above: Performed By: #### E BS LIPID, EMP BMP #### [facility] [address] [place] [address] [place] Lipid Profileon 12-08-2023 LDL Cholesterol,Calculated 84 mg/dL Normal 0-100 [facility] Comment on above: Result Comment: LDL ATP III CLASSIFICATION LDL less than 100 mg/dL Optimal LDL 100-129 mg/dL Near or above optimal LDL 130-159 mg/dL Borderline high LDL 160-189 mg/dL High LDL greater than 189 mg/dL Very high Performed By: #### E BS LIPID, EMP BMP #### [facility] [address] Triglyceride w/Reflex 87 mg/dL Normal 0-149 [facility] Comment on above: Result Comment: TRIG ATP III CLASSIFICATION TRIG less than 150 mg/dL Normal TRIG 150-199 mg/dL Borderline high TRIG 200-500 mg/dL High TRIG greater than 500 mg/dL Very high Standard traceable to the Center for Disease Conrtrol and Prevention (CDC) test method. Performed By: #### E BS LIPID, EMP BMP #### [address] VLDL CHOLESTEROL 17 mg/dL Normal [facility] Comment on above: Performed By: #### E BS LIPID, EMP BMP #### [address] No Panel InformationOrdered By: Janna Escalera on 12-08-2023 Estimated GFR (CKD-EPI) > 60.0 mL/Min [facility] Creatinine Clearance (Chem N/A [facility] Potassium [Moles/volume] in Serum or PlasmaOrdered By: Janna Escalera on 12-08-2023 Potassium [Moles/Vol] 3.6 mmol/L Normal 3.5-5.[address] [facility] Comment on above: Performed By: #### E BS LIPID, EMP BMP #### [facility] [address] [place] [address] Serum or plasma anion gap de terminationOrdered By: Janna Escalera on 12-08-2023 Anion gap [Moles/Vol] 10.5 mmol/L Normal 6.0-15.0 [facility] Comment on above: Performed By: #### E BS LIPID, EMP BMP #### [facility] [address] [place] [address] Serum or plasma high density lipoprotein (HDL) cholesterol measurementOrdered By: Janna Escalera on 12-08-2023 Cholesterol in HDL [Mass/Vol] 62 mg/dL Normal 23-92 [facility] Comment on above: HDL CHOL ATP-III CLA SSIFICATION Cardiovascular RiskHDL > or equal to 60 mg/dL LOWHDL < 40 mg/dL HIGH Result Comment: HDL CHOL ATP-III CLASSIFICATION Cardiovascular Risk HDL > or equal to 60 mg/dL LOW HDL < 40 mg/dL HIGH Performed By: #### E BS LIPID, EMP BMP #### [facility] [address] Serum or plasma total choles terol/high density lipoprotein (HDL) cholesterol mass ratOrdered By: Janna Escalera on 12-08-2023 Cholesterol.total/Chol esterol in HDL [Mass ratio] 2.6 {ratio} Normal <5.0 [facility] Comment on above: Result Comment: PERF ORMED BY: [place] [address] PATHOLOGIST ANIMAL CONTROL LICENSING WORKER CHERYL GEORGE M.D. Performed By: #### E BS LIPID, EMP BMP #### [facility] [address] [place] [address] [place] Sodium [Moles/volume] in Ser um or PlasmaOrdered By: Janna Escalera on 12-08-2023 Sodium [Moles/Vol] 141 mmol/L Normal 136-145 [facility] Comment on above: Performed By: #### E BS LIPID, EMP BMP #### [facility] [address] Triglyceride [Mass/volume] i n Serum or PlasmaOrdered By: Janna Escalera on 12-08-2023 Triglyceride [Mass/Vol] 87 mg/dL 0-149 [facility] Comment on above: TRIG ATP III CLASSIF ICATIONTRIG less than 150 mg/dL NormalTRIG 150-199 mg/dL Borderline highTRIG 200-500 mg/dL High TRIG greater than 500 mg/dL Very highStandard traceable to the Center for Disease Conrtrol and Prevention (CDC) test method. Urea nitrogen [Mass/volume] in Serum or PlasmaOrdered By: Janna Escalera on 12-08-2023 Urea nitrogen [Mass/Vol] 14 mg/dL Normal 7-25 [facility] Comment on above: Performed By: #### E BS LIPID, EMP BMP #### [facility] [address] [id number] [facility] MRI HIP RIGHT W CONTRASTon 1 08-09-2021 [...] 120.55 uGy cm 2 Views: 3 PROCEDURE: ACCREDITATION SPECIALIST: Elijah Houston This procedure was performed by [...] was transferred to MRI for further imaging. [facility] EXAMINATION: FLUOROSCOPIC GUIDED RIGHT HIP ARTHROGRAM, 06/05/2022 2:50 pm COMPARISON: None. HISTORY: ORDERING SYSTEM PROVIDED HISTORY: Tear of right acetabular labrum, initial encounter TECHNOLOGIST PROVIDED HISTORY: r/o R hip labral tear. MRI ordered Is the patient ?->No FLUOROSCOPY DOSE AND TYPE OR TIME AND EXPOSURES: Fluoro time 0.3 minutes DAP 120.55 uGy cm 2 Views: 3 PROCEDURE: ACCREDITATION SPECIALIST: Elijah Houston This procedure was performed by [...] and left the Department in stable condition. [facility] Eric Dukes MD - 06/05/2022 [...] 120.55 uGy cm 2 Views: 3 PROCEDURE: ACCREDITATION SPECIALIST: Elijah Houston This procedure was performed by [...] was transferred to MRI for further imaging. [facility] Phone: Radiology Study observation (narrative) [facility] Phone: IR INJ ARTHROGRAM HIP RIGHTO rdered By: Eric Dukes on 06-05-2022 [facility] Phone: 2018 Novel Coronavirus (CoVI D-19), SAMIR LCon 02-20-2021 SARS-CoV-2 (COVID-19) RNA SAMIR+probe Ql (Unsp spec) Not detected Invalid Interpretation Code Not Detected [facility] Comment on above: Result Comment: This nucleic acid amplification test was developed and its performance characteristics determined by [employer] Nucleic acid amplification tests include RT- PCR [...] detected) result in this assay. Performed At: [facility] [id number] Maritza Uribe PhD Ph:[phone] Performed By: #### 6 [id number] #### [facility] (DEFAULT) [address] [place] [address] Consent Formson 02-19-2021 Consent Forms [id number] [facility] [id number] [facility] Lab - Toxicology Resultson 0 02-19-2021 Lab - Toxicology Results [id number] [facility] Outside Recordson 02-19-2021 Outside Records [id number] [facility] Triage Industrialon 02-20-20 21 Drug Screen Complete [facility] Comment on above: Performed By: #### 1 [id number] #### [facility] (DEFAULT) [address] [place] [id number] ED Clinical Summaryon 2020 ED Clinical Summary [facility] ? Urgent Care [address] [place] [address] Clinical Summary PERSON INFORMATION Name: MADDIE RAMAN Age: 25 Years Sex: FEMALE : 1995 MRN: Acct#: Visit Reason: Medical screening exam; VIKASH WATSON Arrival: 02/18/2021 13:01:04 Discharge: 02/18/2021 14:21:00 LOS: 000 01:20 Check In: 02/18/2021 13:01:04 Checkout: 02/18/2021 14:21:00 Address: [address] [place], [place] [id number] PCP: Provider, Unlisted PROVIDER INFORMATION Provider Role [...] Comment: Normal [facility] ED Patient Summaryon 021 ED Patient Summary [facility] ? Urgent Care [address] [place] [address] PATIENT DISCHARGE INSTRUCTIONS Patient Information Name: MADDIE RAMAN Age: 25 Years Date of : 1995 Reason For Visit: [facility] Ar[facility] Time: 02/18/2021 13:01:04 Primary Care Physician: Provider, Unlisted Attending Physician: Adam Moncada PA-C Comment: Patient Education Medication Information: The exam and treatment you received today in the [facility] Emergency Department were for an urgent problem and are not intended as complete care. It is important for you to follow up with a doctor, nurse practitioner, or physician?s home care assistant for ongoing care. If your symptoms [...] if necessary. [facility] Emergency Department has provided you with a complete list of medications post discharge. 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 automobile seat cover installer/provider of your visit and for further instruction on these medications. Any specific questions regarding your chronic medications and dosages should be discussed with your primary care physician(s) and/or pharmacist. Visit Information Visit Diagnosis: Diagnoses This Visit Medical screening exam ([id number]) If you received any narcotics, sedation, or [...] Reason for Visit: Patient arrives to for [place] physical Allergies: Substance Reaction Symptoms Type Comments [...] for Disease Control and Prevention February 2014 [facility] Urgent Care Note- Provideron 02-18-2021 Urgent Care Note- Provider Patient: MADDIE RAMAN Age: 25 years Sex: FEMALE : 1995 Associated Diagnoses: None Author: Adam Moncada PA-C Basic Information Additional information: Chief Complaint from Nursing Triage Note : Chief Complaint 02/18/2021 13:34 EDT Chief Complaint Patient arrives to for [place] physical . History of Present Illness Patient presents for a pre-employment physical. She is cleared for work. Exam is normal. See scanned document. PSYCHIATRIC: Mood and affect appropriate. Health Status Allergies: Allergic Reactions (Selected) No known allergies. Past Medical/ Family/ Social History Medical history: No active or resolved past medical history items have been selected or recorded.. Surgical history: Cholecystectomy ([id number]). Hip replacement ([id number]). delivery ([id number]). Cardiac ablation system ([id number]).. Family history: No family history items have [...] . Normal [facility] Urgent Care Recordon 021 Urgent Care Record [facility] ? Urgent Care [address] [place] [address] PATIENT DISCHARGE INSTRUCTIONS Patient Information Name: MADDIE RAMAN Age: 25 Years Date of : 1995 Reason For Visit: Medical screening exam; [facility] Arrival Time: 02/18/2021 13:01:04 Primary Care Physician: Provider, Unlisted Attending Physician: Adam Moncada PA-C Comment: Visit Diagnosis: Diagnoses This Visit Medical screening exam ([id number]) If you received any narcotics, sedation, or [...] and treatment you received today in the [facility] Care were for an urgent problem and are not intended as complete care. It is important for you to follow up with a doctor, nurse practitioner, or physician?s home care assistant for ongoing care. If your symptoms [...] so we can reach you if necessary. [facility] Care has provided you with a complete list of medications post discharge. 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 automobile seat cover installer/provider of your visit and for further instruction [...] for Disease Control and Prevention February 2014 [facility] PROGESTERONEon 05-25-2020 Progesterone 3.3 ng/mL Normal [facility] Comment on above: Result Comment: Foll icular phase 0.1 - 0.9 Luteal phase 1.8 - 23.9 Ovulation phase 0.1 - 12.0 First trimester 11.0 - 44.3 Second trimester 25.4 - 83.3 Third trimester 58.7 - 214.0 Postmenopausal 0.0 - 0.1 Performed By: #### P ROSA #### [facility] [address] [place], [place] [address] Sebastian Ordoñez Hgb/Hcton 02-22-2019 Hematocrit (Bld) [Volume fraction] 28.7 % Low 36-46 [facility] Comment on above: Performed By: #### H H #### [facility] [address] [place], [place] [id number] Bearing Grinder: Remy Haq DO Hemoglobin (Bld) [Mass/Vol] 9.4 g/dL Low 12.0-16.0 [facility] Comment on above: Performed By: #### H H #### [facility] [address] [place], [place] [id number] Bearing Grinder: Remy Haq DO Basic Metabolic Profon 02-20 (cont.) Normal [facility] Comment on above: Result Comment: Aver age GFR for 20-29 years old: 116 mL/min/1.73sq m Chronic Kidney Disease: <60 mL/min/1.73sq m Kidney failure: <15 mL/min/1.73sq m eGFR calculated using average adult body mass. Additional eGFR calculator available at: http://www.[employer].GlobeTrotr.com/multiple_crcl_2011.htm Performed By: #### C BC, BMP #### [facility] [address] [place] [address] Bearing Grinder: Remy Haq DO Anion gap [Moles/Vol] 13 mmol/L Normal 9-17 [facility] Comment on above: Performed By: #### C BC, BMP #### [facility] [address] [place] [address] Bearing Grinder: Remy Haq DO Calcium [Mass/Vol] 8.8 mg/dL Normal 8.6-10.4 [facility] Comment on above: Performed By: #### C BC, BMP #### [facility] [place] [address] Bearing Grinder: Remy Haq DO Chloride [Moles/Vol] 103 mmol/L Normal 98-107 [facility] Comment on above: Performed By: #### C JAMA, BMP #### [facility] [address] [place] [address] Bearing Grinder: Remy Haq DO CO2 [Moles/Vol] 25 mmol/L Normal 20-31 [facility] Comment on above: Performed By: #### C BC, BMP #### [facility] [facility] [place] [address] Bearing Grinder: Remy Haq DO Creatinine [Mass/Vol] 0.72 mg/dL Normal 0.50-0.90 [facility] Comment on above: Performed By: #### C BC, BMP #### [facility] [place] [address] Bearing Grinder: Remy Haq DO GFR, Amer >60 Normal >60 [facility] Comment on above: Performed By: #### C BC, BMP #### [facility] [address] [place] [address] Bearing Grinder: Remy Haq DO GFR,non Amer >60 Normal >60 [facility] Comment on above: Performed By: #### C JAMA, BMP #### [facility] [address] [place] [address] Bearing Grinder: Remy Haq DO Glucose [Mass/Vol] 96 mg/dL Normal 70-99 [facility] Comment on above: Performed By: #### C JAMA, BMP #### [facility] [address] [place] [address] Bearing Grinder: Remy Haq DO Potassium [Moles/Vol] 4.0 mmol/L Normal 3.7-5.3 [facility] Comment on above: Performed By: #### C JAMA, BMP #### [facility] [place] [address] Bearing Grinder: Remy Haq DO Sodium [Moles/Vol] 141 mmol/L Normal 135-144 [facility] Comment on above: Performed By: #### C JAMA, BMP #### [facility] [place] [address] Bearing Grinder: Remy Haq DO Urea nitrogen [Mass/Vol] 10 mg/dL Normal 6-20 [facility] Comment on above: Performed By: #### C JAMA, BMP #### [facility] [address] [place] [address] Bearing Grinder: Remy Haq DO BUN/CRE Ratio NOT REPORTED Normal 9-20 [facility] Comment on above: Performed By: #### C JAMA, BMP #### [facility] [address] [place] [address] Bearing Grinder: Remy Haq DO Staging: NOT REPORTED Normal [facility] Comment on above: Performed By: #### C JAMA, BMP #### [facility] [address] [place] [address] Bearing Grinder: Remy Haq DO CBCon 02-20-2019 Erythrocyte distribution width (RBC) [Ratio] 16.5 % High 11.5-14.9 [facility] Comment on above: Performed By: #### Joy YUN, BMP #### [facility] [address] [place] [address] Bearing Grinder: Remy Haq DO Hematocrit (Bld) [Volume fraction] 25.9 % Low 36-46 [facility] Comment on above: Performed By: #### Joy YUN, BMP #### [facility] [place] [address] Bearing Grinder: Remy Haq DO Hemoglobin (Bld) [Mass/Vol] 8.6 g/dL Low 12.0-16.0 [facility] Comment on above: Performed By: #### Joy YUN, BMP #### [facility] [address] [place] [address] Bearing Grinder: Remy Haq DO MCH (RBC) [Entitic mass] 28.2 pg Normal 26-34 [facility] Comment on above: Performed By: #### Joy YUN, BMP #### [facility] [address] [place] [address] Bearing Grinder: Remy Haq DO MCHC (RBC) [Mass/Vol] 33.0 g/dL Normal 31-37 [facility] Comment on above: Performed By: #### C JAMA, BMP #### [facility] [address] [place] [address] Bearing Grinder: Remy Haq DO MCV (RBC) [Entitic vol] 85.4 fL Normal 80-100 [facility] Comment on above: Performed By: #### Joy YUN, BMP #### [facility] [address] [place] [address] Bearing Grinder: Remy Haq DO Platelet mean volume (Bld) [Entitic vol] 6.7 fL Normal 6.0-12.0 [facility] Comment on above: Performed By: #### Joy YUN, BMP #### [facility] [address] [place] [address] Bearing Grinder: Remy Haq DO Platelets (Bld) [#/Vol] 419 10*3/uL Normal 150-450 [facility] Comment on above: Performed By: #### Joy YUN, BMP #### [facility] [place] [address] Bearing Grinder: Remy Haq DO RBC (Bld) [#/Vol] 3.03 10*6/uL Low 4.0-5.2 [facility] Comment on above: Performed By: #### Joy YUN, BMP #### [facility] [address] [place] [address] Bearing Grinder: Remy Haq DO WBC (Bld) [#/Vol] 6.3 10*3/uL Normal 3.5-11.0 [facility] Comment on above: Performed By: #### Joy YUN, BMP #### [facility] [address] [place] [address] Bearing Grinder: Remy Haq DO NRBC Automated NOT REPORTED Normal [facility] Comment on above: Performed By: #### oJy YUN, BMP #### [facility] [address] [place] [address] Bearing Grinder: Remy Haq DO Hgb/Hcton 02-20-2019 Hematocrit (Bld) [Volume fraction] 29.6 % Low 36-46 [facility] Comment on above: Performed By: #### H H #### [facility] [address] [place] [address] Bearing Grinder: Remy Haq DO Hemoglobin (Bld) [Mass/Vol] 9.7 g/dL Low 12.0-16.0 [facility] Comment on above: Performed By: #### H H #### [facility] [address] [place] [address] Bearing Grinder: Remy Haq DO CBCon 02-19-2019 Erythrocyte distribution width (RBC) [Ratio] 16.6 % High 11.5-14.9 [facility] Comment on above: Performed By: #### C BC #### [facility] [address] [place] [address] Bearing Grinder: Remy Haq DO Hematocrit (Bld) [Volume fraction] 23.2 % Low 36-46 [facility] Comment on above: Performed By: #### C BC #### [facility] [address] [place] [address] Bearing Grinder: Remy Haq DO Hemoglobin (Bld) [Mass/Vol] 7.6 g/dL Low 12.0-16.0 [facility] Comment on above: Performed By: #### C BC #### [facility] [address] [place] [address] Bearing Grinder: Remy Haq DO MCH (RBC) [Entitic mass] 27.8 pg Normal 26-34 [facility] Comment on above: Performed By: #### C BC #### [facility] [address] [place] [address] Bearing Grinder: Remy Haq DO MCHC (RBC) [Mass/Vol] 32.7 g/dL Normal 31-37 [facility] Comment on above: Performed By: #### C BC #### [facility] [address] [place] [address] Bearing Grinder: Remy Haq DO MCV (RBC) [Entitic vol] 85.0 fL Normal 80-100 [facility] Comment on above: Performed By: #### C BC #### [facility] [address] [place] [address] Bearing Grinder: Remy Haq DO Platelet mean volume (Bld) [Entitic vol] 6.5 fL Normal 6.0-12.0 [facility] Comment on above: Performed By: #### C BC #### [facility] [address] [place] [address] Bearing Grinder: Remy Haq DO Platelets (Bld) [#/Vol] 444 10*3/uL Normal 150-450 [facility] Comment on above: Performed By: #### C BC #### [facility] [place] [address] Bearing Grinder: Remy Haq DO RBC (Bld) [#/Vol] 2.73 10*6/uL Low 4.0-5.2 [facility] Comment on above: Performed By: #### C BC #### [facility] [place] [address] Bearing Grinder: Remy Haq DO WBC (Bld) [#/Vol] 5.1 10*3/uL Normal 3.5-11.0 [facility] Comment on above: Performed By: #### C BC #### [facility] [address] [place] [address] Bearing Grinder: Remy Haq DO NRBC Automated NOT REPORTED Normal [facility] Comment on above: Performed By: #### C BC #### [facility] [address] [place] [address] Bearing Grinder: Remy Haq DO Type + Crossmatchon 02-20-20 19 Type + Crossmatch Sample Expiration 02/22/2019 Arm Band Number [id number] ABO/Rh(D) A POSITIVE Antibody Screen NEGATIVE Blood Bank Comment Pt's ABRh confirmed as A POS:402 Results Verified BLANCHE, Polyspecific NEGATIVE BLANCHE, Anti-IgG [place] Serum NEGATIVE Antibody Ident Anti-[place](A) Present Unit Number [id number] Blood Component Type Leukocyte Reduced Red Cell Unit Division 00 Status of Unit TRANSFUSED Transfusion Status OK TO TRANSFUSE Crossmatch Result COMPATIBLE Normal [facility] Comment on above: Performed By: #### T YX #### [facility] [place] [address] Bearing Grinder: Remy Haq DO Basic Metab w/rfx MGon 02-16 (cont.) Normal [facility] Comment on above: Result Comment: Aver age GFR for 20-29 years old: 116 mL/min/1.73sq m Chronic Kidney Disease: <60 mL/min/1.73sq m Kidney failure: <15 mL/min/1.73sq m eGFR calculated using average adult body mass. Additional eGFR calculator available at: http://www.[employer].GlobeTrotr.com/multiple_crcl_2012.htm Performed By: #### B MPX, CBC #### [facility] [address] [place] [address] Bearing Grinder: Remy Haq DO Anion gap [Moles/Vol] 11 mmol/L Normal 9-17 [facility] Comment on above: Performed By: #### B MPX, CBC #### [facility] [address] [place], [place] [id number] Bearing Grinder: Remy Haq DO Calcium [Mass/Vol] 8.6 mg/dL Normal 8.6-10.4 [facility] Comment on above: Performed By: #### B MPX, CBC #### [facility] [address] [place] [address] Bearing Grinder: Remy Haq DO Chloride [Moles/Vol] 100 mmol/L Normal 98-107 [facility] Comment on above: Performed By: #### B MPX, CBC #### [facility] [address] [facility] [place] [address] Bearing Grinder: Remy Haq DO CO2 [Moles/Vol] 26 mmol/L Normal 20-31 [facility] Comment on above: Performed By: #### B MPX, CBC #### [facility] [place] [address] Bearing Grinder: Remy Haq DO Creatinine [Mass/Vol] 0.62 mg/dL Normal 0.50-0.90 [facility] Comment on above: Performed By: #### B MPX, CBC #### [facility] [place] [address] Bearing Grinder: Remy Haq DO GFR, Amer >60 Normal >60 [facility] Comment on above: Performed By: #### B MPX, CBC #### [facility] [place] [address] Bearing Grinder: Remy Haq DO GFR,non Amer >60 Normal >60 [facility] Comment on above: Performed By: #### B MPX, CBC #### [facility] [place] [address] Bearing Grinder: Remy Haq DO Glucose [Mass/Vol] 95 mg/dL Normal 70-99 [facility] Comment on above: Performed By: #### B MPX, CBC #### [facility] [place] [address] Bearing Grinder: Remy Haq DO Potassium [Moles/Vol] 4.2 mmol/L Normal 3.7-5.3 [facility] Comment on above: Performed By: #### B MPX, CBC #### [facility] [address] [place] [address] Bearing Grinder: Remy Haq DO Sodium [Moles/Vol] 137 mmol/L Normal 135-144 [facility] Comment on above: Performed By: #### B MPX, CBC #### [facility] [place] [address] Bearing Grinder: Remy Haq DO Urea nitrogen [Mass/Vol] 11 mg/dL Normal 6-20 [facility] Comment on above: Performed By: #### B MPX, CBC #### [facility] [address] [facility] [place] [address] Bearing Grinder: Remy Haq DO BUN/CRE Ratio NOT REPORTED Normal 9-20 [facility] Comment on above: Performed By: #### B MPX, CBC #### [facility] [place] [address] Bearing Grinder: Remy Haq DO Staging: NOT REPORTED Normal [facility] Comment on above: Performed By: #### B MPX, CBC #### [facility] [place] [address] Bearing Grinder: Remy Haq DO CBCon 02-16-2019 Erythrocyte distribution width (RBC) [Ratio] 16.3 % High 11.5-14.9 [facility] Comment on above: Performed By: #### B MPX, CBC #### [facility] [place] [address] Bearing Grinder: Remy Haq DO Hematocrit (Bld) [Volume fraction] 22.4 % Low 36-46 [facility] Comment on above: Performed By: #### B MPX, CBC #### [facility] [address] [place] [address] Bearing Grinder: Remy Haq DO Hemoglobin (Bld) [Mass/Vol] 7.6 g/dL Low 12.0-16.0 [facility] Comment on above: Performed By: #### B MPX, CBC #### [facility] [address] [place] [address] Bearing Grinder: Remy Haq DO MCH (RBC) [Entitic mass] 29.4 pg Normal 26-34 [facility] Comment on above: Performed By: #### B MPX, CBC #### [facility] [address] [place] [address] Bearing Grinder: Remy aHq DO MCHC (RBC) [Mass/Vol] 33.8 g/dL Normal 31-37 [facility] Comment on above: Performed By: #### B MPX, CBC #### [facility] [address] [place] [address] Bearing Grinder: Remy Haq DO MCV (RBC) [Entitic vol] 87.1 fL Normal 80-100 [facility] Comment on above: Performed By: #### B MPX, CBC #### [facility] [address] [place] [address] Bearing Grinder: Remy Haq DO Platelet mean volume (Bld) [Entitic vol] 6.4 fL Normal 6.0-12.0 [facility] Comment on above: Performed By: #### B MPX, CBC #### [facility] [address] [place] [address] Bearing Grinder: Remy Haq DO Platelets (Bld) [#/Vol] 503 10*3/uL High 150-450 [facility] Comment on above: Performed By: #### B MPX, CBC #### [facility] [address] [facility] [place] [address] Bearing Grinder: Remy Haq DO RBC (Bld) [#/Vol] 2.57 10*6/uL Low 4.0-5.2 [facility] Comment on above: Performed By: #### Adam MPX, CBC #### [facility] [address] [facility] [place] [address] Bearing Grinder: Remy Haq DO WBC (Bld) [#/Vol] 7.5 10*3/uL Normal 3.5-11.0 [facility] Comment on above: Performed By: #### Adam MPX, CBC #### [facility] [address] [facility] [place] [address] Bearing Grinder: Remy Haq DO NRBC Automated NOT REPORTED Normal [facility] Comment on above: Performed By: #### Adam MPX, CBC #### [facility] [address] [facility] [place] [address] Bearing Grinder: Remy Haq DO Basic Metabolic Panel w/ Ref savanah to MGon 02-15-2019 Anion gap [Moles/Vol] 14 mmol/L 9 - 17 mmol/L [place] Bun/Cre Ratio NOT REPORTED [place] Calcium [Mass/Vol] 8.4 mg/dL Low 8.6 - 10. 4 mg/dL [place] Chloride [Moles/Vol] 102 mmol/L 98 - 10 7 mmol/L [place] CO2 [Moles/Vol] 24 mmol/L 20 - 31 mmol/L [place] Creatinine [Mass/Vol] 0.57 mg/dL 0.5 - 0.9 mg/dL [place] GFR >60 >60 mL/min [place] GFR Non- >60 >60 mL/min [place] GFR/1.73 sq M predicted among non-blacks MDRD (S/P/Bld) [Vol rate/Area] [place] Comment on above: Average GFR for 20-2 9 years old: 116 mL/min/1.73sq m Chronic Kidney Disease: <60 mL/min/1.73sq m Kidney failure: <15 mL/min/1.73sq m eGFR calculated using average adult body mass. Additional eGFR calculator available at: http://www.Baby.com.br/multiple_crcl_2012.htm GFR/1.73 sq M predicted among non-blacks MDRD (S/P/Bld) [Vol rate/Area] NOT REPORTED [place] Glucose [Mass/Vol] 106 mg/dL High 70 - 99 mg/dL [place] Interpretation and review of laboratory results Abnormal [place] Potassium [Moles/Vol] 4.0 mmol/L 3.7 - 5.3 mmol/L [place] Sodium [Moles/Vol] 140 mmol/L 135 - 144 mmol/L [place] Urea nitrogen [Mass/Vol] 11 mg/dL 6 - 20 mg/dL [place] CBC WITH AUTO DIFFERENTIALon 02-15-2019 Basophils (Bld) [#/Vol] 0.06 10*3/uL [place] Basophils/100 WBC (Bld) 1 % 0 - 2 % [place] Differential Type NOT REPORTED [place] Eosinophils (Bld) [#/Vol] 0.33 10*3/uL [place] Eosinophils/100 WBC (Bld) 5 % High 1 - 4 % [place] Erythrocyte distribution width (RBC) [Ratio] 15.3 % High 11.8 - 14.4 % [place] Hematocrit (Bld) [Volume fraction] 24.9 % Low 36.3 - 47.1 % [place] Hemoglobin (Bld) [Mass/Vol] 7.5 g/dL Low 11.9 - 15.1 g/dL [place] Immature granulocytes (Bld) [#/Vol] 1 % High 0 [place] Immature granulocytes (Bld) [#/Vol] 0.10 10*3/uL [place] Interpretation and review of laboratory results Abnormal [place] Lymphocytes (Bld) [#/Vol] 1.93 10*3/uL [place] Lymphocytes/100 WBC (Bld) 27 % 24 - 43 % [place] MCH (RBC) [Entitic mass] 28.2 pg 25.2 - 33.5 pg [place] MCHC (RBC) [Mass/Vol] 30.1 g/dL 28.4 - 34.8 g/dL [place] MCV (RBC) [Entitic vol] 93.6 fL 82.6 - 102.9 fL [place] Monocytes (Bld) [#/Vol] 0.60 10*3/uL [place] Monocytes/100 WBC (Bld) 8 % 3 - 12 % [place] Platelet mean volume (Bld) [Entitic vol] 9.0 fL 8.1 - 13.5 fL [place] Platelets (Bld) [#/Vol] 458 10*3/uL [place] Platelets (Bld) [#/Vol] NOT REPORTED [place] RBC (Bld) [#/Vol] 2.66 10*6/uL Low 3.95 - 5.1 1 m/uL [place] RBC morphology finding Nom (Bld) ANISOCYTOSIS PRESENT [place] Segmented neutrophils/100 WBC (Bld) 58 % 36 - 65 % [place] Segs Absolute 4.19 [place] WBC (Bld) [#/Vol] 7.2 10*3/uL [place] WBC (Bld) [#/Vol] 0.0 10*3/uL 0.0 per 10 0 WBC [place] WBC Morphology NOT REPORTED [place] Basic Metabolic Panel w/ Ref savanah to MGon 02-13-2019 Anion gap [Moles/Vol] 13 mmol/L 9 - 17 mmol/L [place] Bun/Cre Ratio NOT REPORTED [place] Calcium [Mass/Vol] 8.5 mg/dL Low 8.6 - 10. 4 mg/dL [place] Chloride [Moles/Vol] 105 mmol/L 98 - 10 7 mmol/L [place] CO2 [Moles/Vol] 23 mmol/L 20 - 31 mmol/L [place] Creatinine [Mass/Vol] 0.46 mg/dL Low 0.5 - 0.9 mg/dL [place] GFR >60 >60 mL/min [place] GFR Non- >60 >60 mL/min [place] GFR/1.73 sq M predicted among non-blacks MDRD (S/P/Bld) [Vol rate/Area] NOT REPORTED [place] GFR/1.73 sq M predicted among non-blacks MDRD (S/P/Bld) [Vol rate/Area] [place] Comment on above: Average GFR for 20-2 9 years old: 116 mL/min/1.73sq m Chronic Kidney Disease: <60 mL/min/1.73sq m Kidney failure: <15 mL/min/1.73sq m eGFR calculated using average adult body mass. Additional eGFR calculator available at: http://www.Baby.com.br/multiple_crcl_2012.htm Glucose [Mass/Vol] 86 mg/dL 70 - 99 mg/dL [place] Interpretation and review of laboratory results Abnormal [place] Potassium [Moles/Vol] 4.3 mmol/L 3.7 - 5.3 mmol/L [place] Sodium [Moles/Vol] 141 mmol/L 135 - 144 mmol/L [place] Urea nitrogen [Mass/Vol] 9 mg/dL 6 - 20 mg/dL [place] CBC WITH AUTO DIFFERENTIALon 02-13-2019 Basophils (Bld) [#/Vol] 0.06 10*3/uL [place] Basophils/100 WBC (Bld) 1 % 0 - 2 % [place] Differential Type NOT REPORTED [place] Eosinophils (Bld) [#/Vol] 0.40 10*3/uL [place] Eosinophils/100 WBC (Bld) 5 % High 1 - 4 % [place] Erythrocyte distribution width (RBC) [Ratio] 14.8 % High 11.8 - 14.4 % [place] Hematocrit (Bld) [Volume fraction] 25.0 % Low 36.3 - 47.1 % [place] Hemoglobin (Bld) [Mass/Vol] 7.4 g/dL Low 11.9 - 15.1 g/dL [place] Immature granulocytes (Bld) [#/Vol] 2 % High 0 [place] Immature granulocytes (Bld) [#/Vol] 0.14 10*3/uL [place] Interpretation and review of laboratory results Abnormal [place] Lymphocytes (Bld) [#/Vol] 2.18 10*3/uL [place] Lymphocytes/100 WBC (Bld) 25 % 24 - 43 % [place] MCH (RBC) [Entitic mass] 27.1 pg 25.2 - 33.5 pg [place] MCHC (RBC) [Mass/Vol] 29.6 g/dL 28.4 - 34.8 g/dL [place] MCV (RBC) [Entitic vol] 91.6 fL 82.6 - 102.9 fL [place] Monocytes (Bld) [#/Vol] 0.66 10*3/uL [place] Monocytes/100 WBC (Bld) 8 % 3 - 12 % [place] Platelet mean volume (Bld) [Entitic vol] 8.9 fL 8.1 - 13.5 fL [place] Platelets (Bld) [#/Vol] 440 10*3/uL [place] Platelets (Bld) [#/Vol] NOT REPORTED [place] RBC (Bld) [#/Vol] 2.73 10*6/uL Low 3.95 - 5.1 1 m/uL [facility] RBC morphology finding Nom (Bld) [facility]ENT [facility] Segmented neutrophils/100 WBC (Bld) 61 % 36 - 65 % [facility] Segs Absolute 5.37 [facility] WBC (Bld) [#/Vol] 0.0 10*3/uL 0.0 per 10 0 WBC [facility] WBC (Bld) [#/Vol] 8.8 10*3/uL [facility] WBC Morphology NOT REPORTED [facility] E[facility] Complete 2D W Doppler W Coloron 02-13-2019 Transthoracic Echocardiography Report (TTE) Patient Name CECI PERKINS Date of Study 02/13/2019 C Date of 1995 Gender Female Age 23 year(s) Race Unknown Room Number 0240 Height: 65 inch, 165.1 cm Corporate ID [id number] Weight: 301 pounds, 136.5 kg # Patient Acct [id number] BSA: 2.35 m^2 BMI: 50.09 kg/m^2 # MR # [id number] [employer] Kaylen Jasso Interpreting Physician Anthony Keating Fellow Referring Nurse Practitioner Interpreting Referring Physician MICHAEL BULLOCK MD Fellow Type of Study TTE procedure:2D Echocardiogram, M-Mode, Doppler, Color Doppler. Procedure Date Date: 02/13/2019 Start: 08:48 AM Study Location: [facility] Technical Quality: Adequate visualization Indications:Irregula [...] Wall E' velocity:0.17 m/s Lateral Wall E/E':5.8 [facility] [place], [place] Tamir, Mhpn Incoming Cardio Results From [facility]/ - 02/13/2019 2:01 PM EDT Transthoracic Echocardiography Report (TTE) Patient Name CECI PERKINS Date of Study 02/13/2019 C Date of 1995 Gender Female Age 23 year(s) Race Unknown Room Number 0240 Height: 65 inch, 165.1 cm Corporate ID [id number] Weight: 301 pounds, 136.5 kg # Patient Acct [id number] BSA: 2.35 m^2 BMI: 50.09 kg/m^2 # MR # [id number] [employer] Kaylen Jasso Interpreting Physician Anthony Keating Fellow Referring Nurse Practitioner Interpreting Referring Physician MICHAEL BULLOCK MD Fellow Type of Study TTE procedure:2D Echocardiogram, M-Mode, Doppler, Color Doppler. Procedure Date Date: 02/13/2019 Start: 08:48 AM Study Location: [facility] Technical Quality: Adequate visualization Indications:Irregula [...] seen. Signature - Electronically signed by Anthony Keating([facility]) on 02/13/2019 02:00 PM - - [...] Wall E' velocity:0.17 m/s Lateral Wall E/E':5.8 [place] EKG 12 Leadon 02-11-2019 Atrial Rate 99 BPM [place] P [place] 69 degrees [place] P-R Interval 136 ms [place] Q-T Interval 344 ms [place] QRS Duration 80 ms [place] QTc Calculation (Bazett) 441 ms [place] R [place] 16 degrees [facility] [place] T [place] 4 degrees [place] Ventricular Rate 99 BPM [place] Tamir, Mhpn Incoming Ekg Results From [facility] [place] [place] - 02/11/2019 11:00 AM EDT Normal sinus rhythm Cannot rule out Anterior infarct , age undetermined Abnormal ECG When compared with ECG of 31-JAN-2019 19:55, No significant change was found [place] Normal sinus rhythm Cannot rule out Anterior infarct , age undetermined Abnormal ECG When compared with ECG of 31-JAN-2019 19:55, No significant change was found [place] HEMOGLOBIN AND HEMATOCRIT, B LOODon 02-11-2019 Hematocrit (Bld) [Volume fraction] 27.0 % Low 36.3 - 47.1 % [place] Hemoglobin (Bld) [Mass/Vol] 8.3 g/dL Low 11.9 - 15.1 g/dL [place] Interpretation and review of laboratory results Abnormal [place] Microscopic Urinalysison Amorphous, UA NOT REPORTED None [facility] lt- [place], [place] Bacteria, UA NOT REPORTED None [facility] [place]- [place] Casts UA [place] Crystals UA NOT REPORTED None /HPF [place] Epithelial Cells UA 0 TO 2 [place] Mucus, UA NOT REPORTED None [place] Other Observations UA NOT REPORTED NOT REQ. M [place], [place] RBC (U) [#/Vol] 5 TO 10 [place], [place] Comment on above: Reference range defi xiomy for non-centrifuged specimen. Renal Epithelial, Urine NOT REPORTED 0 /HPF [place] Trichomonas, UA NOT REPORTED None [place] WBC, UA TOO NUMEROUS TO COUNT [place] Yeast, UA NOT REPORTED None [place] URINALYSISon 02-11-2019 Bilirubin Urine Negative NEGATIVE [place], [place] Color, UA YELLOW YELLOW [place] Glucose, Ur Negative NEGATIVE [place] Interpretation and review of laboratory results Abnormal [place] Ketones Ql (U) Negative NEGATIVE [place] Leukocyte esterase Test strip Ql (U) LARGE Abnormal NEGATIVE [place] Nitrite, Urine Negative NEGATIVE [place] pH, UA 5.0 [place] Protein (U) [Mass/Vol] Negative NEGATIVE [place], [place] Specific [place], UA 1.013 [place], [place] Turbidity UA CLOUDY Abnormal CLEAR [place] Urinalysis Comments NOT REPORTED [place], [place] Urine Hgb MODERATE Abnormal NEGATIVE [place] Urobilinogen, Urine Normal Normal [place] HEMOGLOBIN AND HEMATOCRIT, B LOODon 02-10-2019 Hematocrit (Bld) [Volume fraction] 22.5 % Low 36.3 - 47.1 % [place] Hemoglobin (Bld) [Mass/Vol] 6.8 g/dL Critically low 11.9 - 15.1 g/dL [place] Interpretation and review of laboratory results Abnormal [place] TYPE AND SCREENon 02-10-2019 ABO/Rh Positive [place], [place] Arm Band Number [id number] [place], [place] Blood product type Nom (BPU) Leukocyte Reduced Red Cell [place] Crossmatch Result COMPATIBLE [facility] Cast[facility] Disp[facility] Status [facility]SF[facility] Expiration Date 02/10/2019 [facility] Transfusion Status OK TO [facility]SFUSE [facility] BLAINE Unit Number [id number] [facility] [place] PELVIS WO CONTRAST Additi onal Contrast? Noneon 02-09-2019 Tamir, pn Incoming Radiant Results From [email or web address] - 02/09/2019 12:47 PM EDT EXAMINATION: CT [...] extends anterior to the inferior pubic ramus. [place] EXAMINATION: CT OF THE PELVIS WITHOUT [...] chris edema and small foci of air. [place] 1. Improved alignment of the right posterior wall acetabular fracture status post ORIF. 2. Small intra-articular right hip loose bodies. 3. The long screw extends anterior to the inferior pubic ramus. [place] HEMOGLOBIN AND HEMATOCRIT, Adam Campbell 02-09-2019 Hematocrit (Bld) [Volume fraction] 19.2 % Low 36.3 - 47.1 % [place] Hemoglobin (Bld) [Mass/Vol] 5.9 g/dL Critically low 11.9 - 15.1 g/dL [place], [place] Comment on above: TEST CONFIRMED Interpretation and review of laboratory results Abnormal [place] Hematocrit (Bld) [Volume fraction] 21.2 % Low 36.3 - 47.1 % [place] Hemoglobin (Bld) [Mass/Vol] 6.6 g/dL Critically low 11.9 - 15.1 g/dL [place], [place] Comment on above: TEST CONFIRMED Interpretation and review of laboratory results Abnormal [place] Hematocrit (Bld) [Volume fraction] 23.6 % Low 36.3 - 47.1 % [place] Hemoglobin (Bld) [Mass/Vol] 7.2 g/dL Low 11.9 - 15.1 g/dL [facility] Interpretation and review of laboratory results Abnormal [facility] CV HGB/HCTon 02-08-2019 Hematocrit (Bld) [Volume fraction] 24.4 % [facility] Hemoglobin (Bld) [Mass/Vol] 7.8 g/dL gm/dL [facility] POCT urine pregnancyon 02-08 Beta HCG ( test) Ql (U) Negative NEGATIVE [place], [place] Comment on above: Specimens with hCG [...] 02-08-2019 Tamir, Mhpn Incoming Radiant Results From [facility] - 02/08/2019 1:24 PM EDT EXAMINATION: THREE XRAY VIEWS OF THE RIGHT FOOT 02/08/2019 1:12 pm COMPARISON: Right ankle radiographs February 01, 2019 HISTORY: ORDERING SYSTEM PROVIDED HISTORY: Trauma/Fracture TECHNOLOGIST PROVIDED HISTORY: Trauma/Fracture FINDINGS: No fracture or dislocation. IMPRESSION: No acute osseous abnormality [facility] EXAMINATION: THREE XRAY VIEWS OF THE RIGHT FOOT 02/08/2019 1:12 pm COMPARISON: Right ankle radiographs February 01, 2019 HISTORY: ORDERING SYSTEM PROVIDED HISTORY: Trauma/Fracture TECHNOLOGIST PROVIDED HISTORY: Trauma/Fracture FINDINGS: No fracture or dislocation. [facility] No acute osseous abnormality [place] XR PELVIS (MIN 3 VIEWS)on EXAMINATION: ONE XRAY VIEW OF THE PELVIS 02/08/2019 12:48 pm COMPARISON: 01/31/2019 HISTORY: ORDERING SYSTEM PROVIDED HISTORY: AP,Judets. Post op pacu TECHNOLOGIST PROVIDED HISTORY: AP,Judets. Post op pacu FINDINGS: Status post internal fixation of the right acetabulum. Anatomic alignment. No hardware complications. [place] Tamir, Mhpn Incoming Radiant Results From [facility] - 02/08/2019 12:57 PM EDT EXAMINATION: ONE XRAY VIEW OF THE PELVIS 02/08/2019 12:48 pm COMPARISON: 01/31/2019 HISTORY: ORDERING SYSTEM PROVIDED HISTORY: AP,Judets. Post op pacu TECHNOLOGIST PROVIDED HISTORY: APJudets. Post op pacu FINDINGS: Status post internal fixation of the right acetabulum. Anatomic alignment. No hardware complications. IMPRESSION: Anatomic alignment status post internal fixation of the right acetabulum [place] Anatomic alignment status post internal fixation of the right acetabulum [place] Tamir, Mhpn Incoming Radiant Results From [facility] - 02/08/2019 12:49 PM EDT EXAMINATION: ONE [...] fluoroscopic image of pelvis as described above. [place] EXAMINATION: ONE XRAY VIEW OF THE PELVIS 02/08/2019 12:39 pm COMPARISON: January 31, 2019 HISTORY: ORDERING SYSTEM PROVIDED HISTORY: intra op TECHNOLOGIST PROVIDED HISTORY: intra op FINDINGS: Intraoperative fluoroscopic image of pelvis demonstrates ORIF of right acetabular fracture with plate and screws, likely in gross anatomic alignment. A Crawley catheter is in place. [place] Intraoperative fluoroscopic image of pelvis as described above. [place] XR WRIST LEFT (MIN 3 VIEWS)o n 02-08-2019 1. Overlying cast/splint material limits evaluation of fine osseous detail. 2. Anatomic alignment of known transversely oriented nondisplaced distal left radius metaphyseal fracture after reduction. 3. No superimposed acute osseous abnormality identified. 4. Soft tissue swelling about the left wrist/distal left forearm. [place] Tamir, Mhpn Incoming Radiant Results From [facility] - 02/08/2019 6:06 PM EDT EXAMINATION: 3 [...] swelling about the left wrist/distal left forearm. [place] EXAMINATION: 3 XRAY VIEWS OF THE [...] the left wrist and distal left forearm. [place] BASIC METABOLIC PANELon 01-20 Anion gap [Moles/Vol] 12 mmol/L 9 - 17 mmol/L [place] Bun/Cre Ratio NOT REPORTED [place], [place] Calcium [Mass/Vol] 8.5 mg/dL Low 8.6 - 10. 4 mg/dL [place] Chloride [Moles/Vol] 102 mmol/L 98 - 10 7 mmol/L [place] CO2 [Moles/Vol] 24 mmol/L 20 - 31 mmol/L [place] Creatinine [Mass/Vol] 0.54 mg/dL 0.5 - 0.9 mg/dL [place] GFR >60 >60 mL/min [place], [place] GFR Non- >60 >60 mL/min [place] GFR/1.73 sq M predicted among non-blacks MDRD (S/P/Bld) [Vol rate/Area] NOT REPORTED [place] GFR/1.73 sq M predicted among non-blacks MDRD (S/P/Bld) [Vol rate/Area] [place] Comment on above: Average GFR for 20-2 9 years old: 116 mL/min/1.73sq m Chronic Kidney Disease: <60 mL/min/1.73sq m Kidney failure: <15 mL/min/1.73sq m eGFR calculated using average adult body mass. Additional eGFR calculator available at: http://www.Baby.com.br/multiple_crcl_2012.htm Glucose [Mass/Vol] 95 mg/dL 70 - 99 mg/dL [place] Interpretation and review of laboratory results Abnormal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
[2024-06-06 14:29] LABS: BOX Test Sent Out UNITY
[2024-06-06 14:30] LABS: BOX Test Reference Lab UNITY
[2024-06-06 14:33] LABS: Basophils Percent Auto 0.3 % (0.2-2.0); Eosinophils Absolute Auto 0.2 10^3/uL (0.0-0.7); Eosinophils Percent Auto 2.8 % (0.9-7.0); Hematocrit 30.6 % (36.0-48.0); Hemoglobin 10.6 g/dL (12.0-16.0); Immature Granulocytes Abs Auto 0.04 10^3/uL (0.00-0.03); Immature Granulocytes Pct Auto 0.5 % (0.0-0.5); Lymphocytes Absolute Auto 1.8 10^3/uL (1.2-3.8); Lymphocytes Percent Auto 23.8 % (20.5-60.0); Mean Corpuscular HGB Conc 34.6 g/dL (29.9-35.2); Mean Corpuscular Volume 86.7 fL (81.0-99.0); Mean Platelet Volume 9.8 fL (9.5-13.5); Monocytes Absolute Auto 0.5 10^3/uL (0.3-0.8); Monocytes Percent Auto 6.3 % (1.7-12.0); Neutrophils Absolute Auto 4.9 10^3/uL (1.4-6.5); Neutrophils Percent Auto 66.3 % (43.0-75.0); Platelet Count 241 10^3/uL (150-450); Red Blood Count 3.53 10^6/uL (4.20-5.40); Red Cell Distribution Width 12.5 % (11.0-15.0); White Blood Count 7.4 10^3/uL (4.0-11.0)
[2024-06-06 14:46] LABS: Estimated Average Glucose 88 mg/dL; Glycohemoglobin A1C 4.7 % (4.5-6.2)
[2024-06-06 15:59] LABS: Amphetamine Screen Urine NEGATIVE (NEGATIVE); Barbiturates Screen Urine NEGATIVE (NEGATIVE); Benzodiazepines Screen Urine NEGATIVE (NEGATIVE); Cannabinoid Screen Urine NEGATIVE (NEGATIVE); Cocaine Screen Urine NEGATIVE (NEGATIVE); Methadone Screen Urine NEGATIVE (NEGATIVE); Methamphetamines Screen Urine NEGATIVE (NEGATIVE); Opiate Screen Urine NEGATIVE (NEGATIVE); Oxycodone Screen Urine NEGATIVE (NEGATIVE); Phencyclidine Screen Urine NEGATIVE (NEGATIVE); Tricyclic Antidepressant Urine NEGATIVE (NEGATIVE)
[2024-06-06 16:13] LABS: Buprenorphine Screen Urine NEGATIVE (NEGATIVE)
[2024-06-07 08:10] LABS: HBsAg Screen Negative (Negative); HCV Ab Non Reactive (Non Reactive)
[2024-06-07 09:09] LABS: HIV Ab/p24 Ag Screen Non Reactive (Non Reactive); Rubella Antibodies, IgG 1.22 index (Immune >0.99)
[2024-06-07 14:08] LABS: Rapid Plasma Reagin, Quant Non Reactive titer (NonRea<1:1)
== END 2024-06-06 14:01 | disposition home or self-care (01) ==
LOC: LAB 14:02
PROVIDERS: PCP Nurse Practitioner; Visit Provider Obstetrics & Gynecology
DX: Z34.01 Encounter for supervision of normal first pregnancy, first trimester (principal); Z36.0 Encounter for antenatal screening for chromosomal anomalies; N92.6 Irregular menstruation, unspecified
CPT/HCPCS: 36415; 80307; 83036; 85025; 86592; 86762; 86803; 86850; 86900; 86901; 87086; 87340; 87389

== ENCOUNTER 2024-07-05 09:26 | Outpatient (OUT) | payer OTHER, SELFPAY ==
[2024-07-07 03:07] LABS: AFP Value 31.8 ng/mL (.); Gest. Age on Collection Date 17.9 weeks (.); Gestat. Age Based On Ultrasound (.); Insulin Dep Diabetes No (.); Maternal Age At EDD 29.5 yr (.); OSBR Risk 1 IN 10000 (.); Results Report (.)
== END 2024-07-05 09:27 | disposition home or self-care (01) ==
LOC: LAB 09:28
PROVIDERS: PCP Nurse Practitioner; Visit Provider Obstetrics & Gynecology
DX: Z34.92 Encounter for supervision of normal pregnancy, unspecified, second trimester (principal); Z3A.15 15 weeks gestation of pregnancy
CPT/HCPCS: 36415; 82105

== ENCOUNTER 2024-07-15 15:01 | Emergency (ER) | payer OTHER, SELFPAY ==
[2024-07-15 15:05] VITALS: BP 122/72; PULSE 72; TEMP 36.8; O2SAT 99; BMI 39.6
--- NOTE | 2024-07-15 15:11 | ED_ITS ---
HPI - Dental/Oral General Chief complaint: Dental/Oral Stated complaint: DENTAL PAIN Time Seen by Provider: 07/15/24 15:10 Source: patient Mode of arrival: walk-in Limitations: no limitations History of Present Illness HPI Narrative: Patient is a 29-year-old female who presents to the emergency department for pain in the left side of the jaw for the last several days associated with a broken tooth #17. She states she had a fever of 101.0 Fahrenheit earlier today that she has been treating with Tylenol, she arrives afebrile to the ER with no tachycardia. She is 19 weeks . She denies any other upper respiratory symptoms. She is able to swallow and speak without difficulty. She has not had any significant swelling to the side of the jaw but feels the pain radiate into the left side of the jaw and neck. Related Data Previous Rx's ?Medication ?Instructions ?Recorded albuterol sulfate 90 mcg/actuation 2 inh inhalation Q4H PRN shortness 12/06/23 aerosol inhaler of breath or wheezing #8.5 grams hydroxyzine HCl 25 mg tablet 25 mg PO Q6H PRN itching #20 tabs 12/06/23 prednisone 20 mg tablet See Rx Instructions .Route 12/06/23 .COMPLEX #12 tabs ketorolac 10 mg tablet 10 mg PO TID PRN pain #10 tabs 12/17/23 methocarbamol 750 mg tablet 750 mg PO TID PRN pain #20 tabs 12/17/23 methylprednisolone 4 mg tablets in See Rx Instructions .Route 12/17/23 a dose pack (Medrol (Carlos)) .COMPLEX #21 ea amoxicillin 500 mg capsule 500 mg PO TID 10 days #30 caps 07/15/24 Allergies Allergy/AdvReac Type Severity Reaction Status Date / Time No Known Drug Allergies Allergy Verified 07/15/24 15:04 Review of Systems ROS Constitutional Denies: fever or chills Ears, nose, mouth, and throat Reports: mouth pain; Denies: throat pain or nasal congestion Cardiovascular Denies: chest pain Respiratory Denies: shortness of breath or cough Gastrointestinal Denies: nausea or vomiting Integumentary/Breast Denies: rash Neurological Denies: numbness in extremities or weakness in extremities Hematologic/Lymphatic Denies: easy bruising or easy bleeding PFSH PFSH Social History Little interest or pleasure in doing things: not at all Feeling down, depressed, or hopeless: not at all Exam Narrative Exam Narrative: Gen.: Awake, alert, in no distress Head: Normocephalic, atraumatic ENT: Moist mucous membranes, clear speech with no pharyngeal erythema. No tonsillar edema. Uvula midline. No trismus or drooling. No redness or swelling under the tongue. Left TM is clear. Tooth #17 is broken at the root, no visible abscess. Respiratory: No respiratory distress Extremities: Moves extremities equally Psych: Normal mood and affect Neuro: No focal neuro deficit Skin: Warm, dry, intact Constitutional Vital Signs, click to edit/add: Last Vital Signs Temp 98.3 F 07/15/24 15:05 Pulse 72 07/15/24 15:05 Resp 20 07/15/24 15:05 BP 122/72 07/15/24 15:05 Pulse Ox 99 07/15/24 15:05 Course Vital Signs Vital signs: Vital Signs Temperature 98.3 F 07/15/24 15:05 Pulse Rate 72 07/15/24 15:05 Respiratory Rate 20 07/15/24 15:05 Blood Pressure 122/72 07/15/24 15:05 Pulse Oximetry 99 07/15/24 15:05 Temperature 98.3 F 07/15/24 15:05 Pulse Rate 72 07/15/24 15:05 Respiratory Rate 20 07/15/24 15:05 Blood Pressure 122/72 07/15/24 15:05 Pulse Oximetry 99 07/15/24 15:05 MDM - Dental/Oral MDM Narrative Medical decision making narrative: Exam is consistent with broken tooth, dental caries. She has an appointment on Wednesday with a dentist. She is placed on amoxicillin due to . Topical analgesia provided, continue Tylenol. Patient appears well-hydrated and nontoxic with stable vital signs in the ER Medical Records Attestation: I reviewed the patient's medical records. Discharge Plan Discharge Chief Complaint: Dental/Oral Clinical Impression: Toothache, Dental caries Patient Disposition: Home, Self-Care Time of Disposition Decision: 15:16 Prescriptions / Home Meds: New amoxicillin 500 mg capsule 500 mg PO TID 10 Days Qty: 30 0RF No Action prednisone 20 mg tablet See Rx Instructions .ROUTE .COMPLEX Qty: 12 0RF Rx Instructions: 3 tabs daily for 2 days, then 2 tabs daily for 2 days, then 1 tab daily for 2 days hydroxyzine HCl 25 mg tablet 25 mg PO Q6H PRN (Reason: itching) Qty: 20 0RF albuterol sulfate 90 mcg/actuation HFA aerosol inhaler 2 inh inhalation Q4H PRN (Reason: shortness of breath or wheezing) Qty: 8.5 0RF ketorolac 10 mg tablet 10 mg PO TID PRN (Reason: pain) Qty: 10 0RF methocarbamol 750 mg tablet 750 mg PO TID PRN (Reason: pain) Qty: 20 0RF methylprednisolone [Medrol (Carlos)] 4 mg tablets,dose pack See Rx Instructions .ROUTE .COMPLEX Qty: 21 0RF Rx Instructions: Taper as directed Print Language: Maori Instructions: Toothache (ED) Additional Instructions: Follow up with your dentist as scheduled, please finish your antibiotics Referrals: Ally Craig [employer] [Primary Care Provider] - 1 week Discharge Date/Time: 07/15/24 15:56
--- NOTE | 2024-07-15 15:12 | PC.NURSE ---
Dental pain to let lower jaw, has cracked tooth with pain.
--- OUTSIDE RECORDS SUMMARY | 2024-07-15 15:26 | XMS_ITS | CCD ---
Author Organization [facility] Care Team Providers Care Out Of Town Collection Clerk Name Role Phone Ally Craig Primary Care Provider [phone] TERRI AUGUSTIN Admitting Unavailable TERRI AUGUSTIN Attending Unavailable ALLY CRAIG Primary Care Unavailable VIDYA FERRER Consulting Unavailable ALANA, DR HILLIARD Attending Unavailable ALANA, DR HILLIARD Consulting Unavailable ALANA, DR HILLIARD Admitting Unavailable Jeane Canela Unavailable Kiara SUPERVISOR RESEARCH KENNEL - MANGANESE WHEELER, Ally Pop Primary Care Pro vider ALLY CRAIG Primary Care Unavailable MARY MAZARIEGOS Referring Unavailable ALLY CRAIG Primary Care Unavailable MARY MAZARIEGOS Referring Unavailable RADHA HERNANDEZ Referring Unavailable ALLY CRAIG A Primary Care Unavailable NON STAFF Primary Care Provider UnavailRAFA Crowder Attending Provider [phone] NON STAFF Primary Care Unavailable Janna Escalera Attending Unavailable Janna Escalera Admitting Unavailable RADHA HERNANDEZ Attending Unavailable ALLY CRAIG A Referring Unavailable ALANNA CRAIGITH A Primary Care Unavailable DOC GUEVARA Attending Unavailable LAUREN SCOTT Referring Unavailable ALANNA CRAIGITH A Primary Care Unavailable ALLY CRAIG Attending Unavailable ALLY CRAIG A Referring Unavailable ALLY CRAIG A Primary Care Unavailable RADHA HERNANDEZ Attending Unavailable ALLY CRAIG A Referring Unavailable KIARA ALLY A Primary Care Unavailable ALLY CRAIG Attending Unavailable ALLY CRAIG Referring Unavailable ALANNA CRAIGITH A Primary Care Unavailable Kiara CRAIG-FALGUNI, Ally Pop Primary Care Provi collin Unavailable Primary Care Provider CEDRIC Lockett Attending Unavailable Allergies Allergy Classification Reported Allergen(s) Allergy Type Date of Onset Reaction(s) Facility strawberry allergenic extract (1 source) strawberry allergenic extract Drug Allergy [facility] (3 sources) strawberry allergenic extract Drug Allergy 9 Anaphylaxis [place], [place] (6 sources) [place] Propensity to adverse reactions 9 Anaphylaxis [facility] Medications Current Medications Medication Drug Class(es) Dates Sig (Normalized) Sig (Original) acetaminophen 500 mg oral tablet (1 source) Start: 02-01-2019 acetaminophen (TYLENOL) tablet 1,000 mg [id number] 200 actuat albuterol 0.09 mg/actuat metered dose [...] mg busPIRone hydrochloride 7.5 mg oral tablet (11 sources) Start: 03-15-2024 take 1 tablet by [...] by mouth every week vitamin D (ERGOCALCIFEROL) 24639 units CAPS capsule Take 1 capsule by [...] Fluconazole A ctive 150 MG PO Q3D 2 October 20, 2023 12:00am october repeat x [...] 5 mg MV-Min-Fe Fum-FA-DHA ( 1 PO) (6 sources) MV-Min- Fe Fum-FA-DHA ( 1 PO) Active [...] morning. 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 [facility] AFP VALUE 31.8 ng/mL . [facility] COMMENT: Comment . [facility] Comment on above: Yanni West , Ph.D., [facility] Director References: Available Upon Request. Multiples Of Median Cutoffs For AFP Elevations Alonso 2.5 Black 2.8 IDD 2.0 Twins 4.5 Abbreviation Definitions IDD - Insulin Dep Diabetes OSBR - Open Spina Bifida Risk For further inquiries contact [employer] at [phone]. This test was developed and its performance characteristics determined by [facility]. It has not been cleared or approved by the Food and Drug Administration. Performed at: [facility] [address] [place], [place] [id number] Blocking Machine Operator Second: Sinai Arellano Formerly [facility], Phone: [phone] GEST. AGE ON COLLECTION DATE 17.9 . weeks [facility] GESTAT. AGE BASED ON Ultrasound . [facility] Comment on above: 15:0 on 06/15/2024 Recalculations are not recommended when gestational dating by LMP and ultrasound are within 10 days. INSULIN DEP DIABETES No . [facility] INTERPRETATION Comment . [facility] Comment on above: Interpretation: Scre en Negative This result is screen negative for OSB. The AFP MoM calculated is based on the gestational age provided. MS-AFP can identify up to 80% of open neural tube defects. Closed neural tube defects and some open defects may not be detected by this test. This test does not screen for Down Syndrome or Trisomy 18. If screening for Down Syndrome or Trisomy 18 is desired, contact [employer] to discuss available options. The [employer] recommends amniocentesis be offered to women age 35 and older. [age] [facility] MULTIPLE GESTATION No . [facility] [place] [address] . [facility] RACE . [facility] RESULTS Report . [facility] TEST RESULTS: Negative . [facility] WEIGHT 237 . lbs [facility] N [id number] N ULTRASOUND [id number] 0 15 N 1 Y 237 N N N N N White/ [facility] Urinalysis macro (dipstick) panel (U)on 06-15-2024 Bilirubin, UA Negative Negative - 4(70) +++ mg/dL [facility] Blood, UA Negative Negative - 50 Miguel Angel/mcL [facility] Clarity, UA Clear [facility] Color, UA Yellow [facility] Glucose, UA Negative Negative - 2000(110) ++++ mg/dL [facility] Interpretation and review of laboratory results Abnormal [facility] Ketones, UA Negative Negative - 160(16) ++++ mg/dL [facility] Leukocytes, UA Few Negative - 500+++ Eleonora/mcL [facility] Comment on above: small Nitrite, UA Negative Negative - Positive [facility] pH, UA 7 5 - 9 [facility] Protein, UA Negative Negative - 1999(20) ++++ mg/dL [facility] Spec Grav, UA 1.025 1 - 1.03 [facility] Urobilinogen, UA 2.0 0.2 - 12 mg/dL [facility] BOX TESTon 06-06-2024 BOX TEST SENT OUT [facility] BOX1 [facility] BOX2 06/06/24 [facility]) Ql (U)o n 05-29-2024 Interpretation and review of laboratory results Abnormal [facility] Preg Test, Ur Positive Negative [facility] Urinalysis macro (dipstick) panel (U)on 05-29-2024 Bilirubin, UA Negative Negative - 4(70) +++ mg/dL [facility] Blood, UA Negative Negative - 50 Miguel Angel/mcL [facility] Clarity, UA Clear [facility] Color, UA Yellow [facility] Glucose, UA Negative Negative - 1999(110) ++++ mg/dL [facility] Interpretation and review of laboratory results Abnormal [facility] Ketones, UA Positive Negative - 160(16) ++++ mg/dL [facility] Comment on above: trace Leukocytes, UA Negative Negative - 500+++ Eleonora/mcL [facility] Nitrite, UA Negative Negative - Positive [facility] pH, UA 6.5 5 - 9 [facility] Protein, UA Negative Negative - 1999(20) ++++ mg/dL [facility] Spec Grav, UA 1.02 1 - 1.03 [facility] Urobilinogen, UA 1.0 0.2 - 12 mg/dL [facility]H PREG QUANT HCGon 05-12- 024 HCG QUANTITATIVE 44060 mIU/mL [facility] Comment on above: 5-50 0.2-1 WEEK 50-500 1-2 WEEKS 100-5,000 2-3 WEEKS 500-10,000 3-4 WEEKS 1,000-50,000 4-5 WEEKS 10,000-100,000 5-6 WEEKS 15,000-200,000 6-8 WEEKS 10,000-100,000 2-3 [facility] 024 HCG QUANTITATIVE 21190 mIU/mL [facility] Comment on above: 5-50 0.2-1 WEEK 50-500 1-2 WEEKS 100-5,000 2-3 WEEKS 500-10,000 3-4 WEEKS 1,000-50,000 4-5 WEEKS 10,000-100,000 5-6 WEEKS 15,000-200,000 6-8 WEEKS 10,000-100,000 2-[facility] HCGon 024 HCG QUANTITATIVE 48816 mIU/mL [facility] Comment on above: 5-50 0.2-1 WEEK 50-500 1-2 WEEKS 100-5,000 2-3 WEEKS 500-10,000 3-4 WEEKS 1,000-50,000 4-5 WEEKS 10,000-100,000 5-6 WEEKS 15,000-200,000 6-8 WEEKS 10,000-100,000 2-3 MONTHS [facility] URINE CULTUREon 01-20-2024 Bacteria identified Cx Nom [...] F TRIMETH/SULFAMETHOXA ZOLE R >=16/304 F Resistant [facility] Comment on above: Performed By: #### 6 30-4 #### [facility] ([id number]) [address], [address] [place] [address] Basic Metabolic Vasquez w/Rfx A1 Con 12-08-2023 GFR/1.73 sq M.predicted MDRD (S/P/Bld) [Vol rate/Area] mL/min/{1.73_m2} Normal [facility] Comment on above: Performed By: #### E BS LIPID, EMP BMP #### [facility] [address] [place] [address] [place] Calcium [Mass/volume] in Ser um or PlasmaOrdered By: Janna Escalera on 12-08-2023 Calcium [Mass/Vol] 9.5 mg/dL Normal 8.6-10.3 [facility] Comment on above: Performed By: #### E BS LIPID, EMP BMP #### [facility] [address] [place] [address] [place] Carbon dioxide, total [Moles /volume] in Serum or PlasmaOrdered By: Janna Escalera on 12-08-2023 CO2 [Moles/Vol] 29.1 mmol/L Normal 21.0-31.0 [facility] Comment on above: Performed By: #### E BS LIPID, EMP BMP #### [facility] [address] [place] [address] [place] Chloride [Moles/volume] in S radha or PlasmaOrdered By: Janna Escalera on 12-08-2023 Chloride [Moles/Vol] 105 mmol/L Normal 98-107 [facility] Comment on above: Performed By: #### E BS LIPID, EMP BMP #### [facility] [address] [place] [address] [place] Cholesterol [Mass/volume] in Serum or PlasmaOrdered By: Janna Escalera on 12-08-2023 Cholesterol [Mass/Vol] 163 mg/dL Normal 140-200 [facility] Comment on above: Chol less than 200 m g/dl low riskChol 201-239 mg/dl borderline riskChol 240 mg/dl and greater high risk Result Comment: Chol less than 200 mg/dl low risk Chol 201-239 mg/dl borderline risk Chol 240 mg/dl and greater high risk Performed By: #### E BS LIPID, EMP BMP #### [facility] [address] [place] [address] [place] Cholesterol in LDL Calc [Mas s/Vol]Ordered By: Janna Escalera on 12-08-2023 Cholesterol in LDL [Mass/Vol] 84 mg/dL 0-100 [facility] Comment on above: LDL ATP III CLASSIFI CATIONLDL less than 100 mg/dL OptimalLDL 100-129 mg/dL Near or above optimalLDL 130-159 mg/dL Borderline highLDL 160-189 mg/dL HighLDL greater than 189 mg/dL Very high Cholesterol in VLDL Calc [Ma ss/Vol]Ordered By: Janna Escalera on 12-08-2023 Cholesterol in VLDL [Mass/Vol] 17 mg/dL [facility] Creatinine [Mass/volume] in Serum or PlasmaOrdered By: Janna Escalera on 12-08-2023 Creatinine [Mass/Vol] 0.69 mg/dL Normal 0.60-1.20 [facility] Comment on above: Performed By: #### E BS LIPID, EMP BMP #### [facility] [address] [place] [address] [facility] Glucose [Mass/volume] in Ser um or PlasmaOrdered By: Janna Escalera on 12-08-2023 Glucose [Mass/Vol] 83 mg/dL Normal 70-100 [facility] Comment on above: Performed By: #### E BS LIPID, EMP BMP #### [facility] [address] [place] [address] [facility] Lipid Profileon 12-08-2023 LDL Cholesterol,Calculated 84 mg/dL Normal 0-100 [facility] Comment on above: Result Comment: LDL ATP III CLASSIFICATION LDL less than 100 mg/dL Optimal LDL 100-129 mg/dL Near or above optimal LDL 130-159 mg/dL Borderline high LDL 160-189 mg/dL High LDL greater than 189 mg/dL Very high Performed By: #### E BS LIPID, EMP BMP #### [facility] [address] [place] [address] [place] Triglyceride w/Reflex 87 mg/dL Normal 0-149 [facility] Comment on above: Result Comment: TRIG ATP III CLASSIFICATION TRIG less than 150 mg/dL Normal TRIG 150-199 mg/dL Borderline high TRIG 200-500 mg/dL High TRIG greater than 500 mg/dL Very high Standard traceable to the Center for Disease Conrtrol and Prevention (CDC) test method. Performed By: #### E BS LIPID, EMP BMP #### [facility] [address] [place] [address] [place] VLDL CHOLESTEROL 17 mg/dL Normal [facility] Comment on above: Performed By: #### E BS LIPID, EMP BMP #### [facility] [address] No Panel InformationOrdered By: Janna Escalera on 12-08-2023 Estimated GFR (CKD-EPI) > 60.0 mL/Min [facility] Creatinine Clearance (Chem N/A [facility] Potassium [Moles/volume] in Serum or PlasmaOrdered By: Janna Escalera on 12-08-2023 Potassium [Moles/Vol] 3.6 mmol/L Normal 3.5-5.1 [facility] Comment on above: Performed By: #### E BS LIPID, EMP BMP #### [facility] [address] [place] [address] Serum or plasma anion gap de terminationOrdered By: Janna Escalera on 12-08-2023 Anion gap [Moles/Vol] 10.5 mmol/L Normal 6.0-15.0 [facility] Comment on above: Performed By: #### E BS LIPID, EMP BMP #### [facility] [address] Serum or plasma high density lipoprotein (HDL) cholesterol measurementOrdered By: Janna Escalera on 12-08-2023 Cholesterol in HDL [Mass/Vol] 62 mg/dL Normal 23-92 [facility] Comment on above: HDL CHOL ATP-III CLA SSIFICATION Cardiovascular RiskHDL > or equal to 60 mg/dL LOWHDL < 40 mg/dL HIGH Result Comment: HDL CHOL ATP-III CLASSIFICATION Cardiovascular Risk HDL > or equal to 60 mg/dL LOW HDL < 40 mg/dL HIGH Performed By: #### E BS LIPID, EMP BMP #### [facility] [address] Serum or plasma total choles terol/high density lipoprotein (HDL) cholesterol mass ratOrdered By: Janna Escalera on 12-08-2023 Cholesterol.total/Chol esterol in HDL [Mass ratio] 2.6 {ratio} Normal <5.0 [facility] Comment on above: Result Comment: PERF ORMED BY: [place] [address] PATHOLOGIST SUPERVISOR STEFFEN HOUSE CHERYL GEORGE M.D. Performed By: #### E BS LIPID, EMP BMP #### [address] Sodium [Moles/volume] in Ser um or PlasmaOrdered By: Janna Escalera on 12-08-2023 Sodium [Moles/Vol] 141 mmol/L Normal 136-145 [facility] Comment on above: Performed By: #### E BS LIPID, EMP BMP #### [address] Triglyceride [Mass/volume] i n Serum or PlasmaOrdered By: Janna Escalera on 12-08-2023 Triglyceride [Mass/Vol] 87 mg/dL 0-149 [facility] Comment on above: TRIG ATP III CLASSIF ICATIONTRIG less than 150 mg/dL NormalTRIG 150-199 mg/dL Borderline highTRIG 200-500 mg/dL High TRIG greater than 500 mg/dL Very highStandard traceable to the Center for Disease Conrtrol and Prevention (CDC) test method. Urea nitrogen [Mass/volume] in Serum or PlasmaOrdered By: Janna Escalera on 12-08-2023 Urea nitrogen [Mass/Vol] 14 mg/dL Normal 7-25 [facility] Comment on above: Performed By: #### E BS LIPID, EMP BMP #### [address] MRI HIP RIGHT W CONTRASTon 1 [...] Tucker Ashby MD 06/08/22 Final result Normal [facility] IR INJ ARTHROGRAM HIP RIGHTo n 06-05-2022 [...] 120.55 uGy cm 2 Views: 3 PROCEDURE: CULINARY ART TEACHER: Elijah Houston This procedure was performed by [...] Eric Rae MD 06/05/22 Final result Normal [facility] Successful fluoroscopic-guided right hip arthrogram. Patient was transferred to MRI for further imaging. [facility] EXAMINATION: FLUOROSCOPIC GUIDED RIGHT HIP ARTHROGRAM, 06/05/2022 2:50 pm COMPARISON: None. HISTORY: ORDERING SYSTEM PROVIDED HISTORY: Tear of right acetabular labrum, initial encounter TECHNOLOGIST PROVIDED HISTORY: r/o R hip labral tear. MRI ordered Is the patient ?->No FLUOROSCOPY DOSE AND TYPE OR TIME AND EXPOSURES: Fluoro time 0.3 minutes DAP 120.55 uGy cm 2 Views: 3 PROCEDURE: CULINARY ART TEACHER: Elijah Houston This procedure was performed by [...] and left the Department in stable condition. [facility] Eric Dukes MD - 06/05/2022 [...] 120.55 uGy cm 2 Views: 3 PROCEDURE: CULINARY ART TEACHER: Elijah Houston This procedure was performed by [...] was transferred to MRI for further imaging. [employer] Phone: Radiology Study observation (narrative) [employer] Phone: IR INJ ARTHROGRAM HIP RIGHTO rdered By: Eric Dukes on 06-05-2022 [employer] Phone: 2018 Novel Coronavirus (CoVI D-19), SAMIR LCon 02-20-2021 SARS-CoV-2 (COVID-19) RNA SAMIR+probe Ql (Unsp spec) Not detected Invalid Interpretation Code Not Detected [facility] Comment on above: Result Comment: This nucleic acid amplification test was developed and its performance characteristics determined by [employer]. Nucleic acid amplification tests include RT- PCR [...] detected) result in this assay. Performed At: [address] [id number] Maritza Uribe PhD Ph:[phone] Performed By: #### 6 [id number] #### [facility] (DEFAULT) [address] [place], [place] [id number] Consent Formson 02-19-2021 Consent Forms [id number] #1.00OTGTIFF [facility] Consent Forms [id number] #1.00OTGTIFF [facility] Lab - Toxicology Resultson 0 02-19-2021 Lab - Toxicology Results [id number] #1.00OTGTIFF [facility] Outside Recordson 02-19-2021 Outside Records [id number] #1.00OTGTIFF [facility] Triage Industrialon 02-20-20 21 Drug Screen Complete Collected [facility] Comment on above: Performed By: #### 1 [id number] #### [facility] (DEFAULT) [address] [place] [address] ED Clinical Summaryon 2020 ED Clinical Summary [facility] ? Urgent Care [address] [place] [address] Clinical Summary PERSON INFORMATION Name: MADDIE RAMAN Age: 25 Years Sex: FEMALE : 1995 MRN: Acct#: Visit Reason: Medical screening exam; [facility] Arrival: 02/18/2021 13:01:04 Discharge: 02/18/2021 14:21:00 LOS: 000 01:20 Check In: 02/18/2021 13:01:04 Checkout: 02/18/2021 14:21:00 Address: [facility] [address] [facility] [address] PCP: Provider, Unlisted PROVIDER INFORMATION Provider Role [...] verbalizes understanding of instructions given Comment: Normal [facility] ED Patient Summaryon 021 ED Patient Summary [facility] ? Urgent Care [address] [place] [address] PATIENT DISCHARGE INSTRUCTIONS Patient Information Name: MADDIE RAMAN Age: 25 Years Date of : 1995 Reason For Visit: Medical screening exam; [facility] Arrival Time: 02/18/2021 13:01:04 Primary Care Physician: Provider, Unlisted Attending Physician: Adam Moncada PA-C Comment: Patient Education Medication Information: The exam and treatment you received today in the [facility] Emergency Department were for an urgent problem and are not intended as complete care. It is important for you to follow up with a doctor, nurse practitioner, or physician?s patient assistant for ongoing care. If your symptoms [...] so we can reach you if necessary. [facility] Emergency Department has provided you with a complete list of medications post discharge. 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 radar air traffic controller/provider of your visit and for further instruction on these medications. Any specific questions regarding your chronic medications and dosages should be discussed with your primary care physician(s) and/or pharmacist. Visit Information Visit Diagnosis: Diagnoses This Visit Medical screening exam ([id number]) If you received any narcotics, sedation, or [...] Reason for Visit: Patient arrives to for [place] physical Allergies: Substance Reaction Symptoms Type Comments [...] for Disease Control and Prevention February 2014 [facility] Urgent Care Note- Provideron 02-18-2021 Urgent Care Note- Provider Patient: MADDIE RAMAN Age: 25 years Sex: FEMALE : 1995 Associated Diagnoses: None Author: Adam Moncada PA-C Basic Information Additional information: Chief Complaint from Nursing Triage Note : Chief Complaint 02/18/2021 13:34 EDT Chief Complaint Patient arrives to for [place] physical . History of Present Illness Patient presents for a pre-employment physical. She is cleared for work. Exam is normal. See scanned document. PSYCHIATRIC: Mood and affect appropriate. Health Status Allergies: Allergic Reactions (Selected) No known allergies. Past Medical/ Family/ Social History Medical history: No active or resolved past medical history items have been selected or recorded.. Surgical history: Cholecystectomy ([id number]). Hip replacement ([id number]). delivery ([id number]). Cardiac ablation system ([id number]).. Family history: No family history items have [...] % Oxygen Therapy Room air . Normal [facility] Urgent Care Recordon 021 Urgent Care Record [facility] ? Urgent Care [address] [place] [address] PATIENT DISCHARGE INSTRUCTIONS Patient Information Name: MADDIE RAMAN Age: 25 Years Date of : 1995 Reason For Visit: Medical screening exam; [facility] Arrival Time: 02/18/2021 13:01:04 Primary Care Physician: Provider, Unlisted Attending Physician: Adam Moncada PA-C Comment: Visit Diagnosis: Diagnoses This Visit Medical screening exam ([id number]) If you received any narcotics, sedation, or [...] and treatment you received today in the [facility] Urgent Care were for an urgent problem and are not intended as complete care. It is important for you to follow up with a doctor, nurse practitioner, or physician?s patient assistant for ongoing care. If your symptoms [...] so we can reach you if necessary. [facility] Urgent Care has provided you with a complete list of medications post discharge. 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 radar air traffic controller/provider of your visit and for further instruction [...] Disease Control and Prevention February [address] [facility] PROGESTERONEon 05-25-2020 Progesterone 3.3 ng/mL Normal [facility] Comment on above: Result Comment: Foll icular phase 0.1 - 0.9 Luteal phase 1.8 - 23.9 Ovulation phase 0.1 - 12.0 First trimester 11.0 - 44.3 Second trimester 25.4 - 83.3 Third trimester 58.7 - 214.0 Postmenopausal 0.0 - 0.1 Performed By: #### P ROSA #### [facility] [address] [address] Sebastian Ordoñez Hgb/Hcton 02-22-2019 Hematocrit (Bld) [Volume fraction] 28.7 % Low 36-46 [facility] Comment on above: Performed By: #### H H #### [facility] [place] [address] Blocking Machine Operator Second: Remy Haq DO Hemoglobin (Bld) [Mass/Vol] 9.4 g/dL Low 12.0-16.0 [facility] Comment on above: Performed By: #### H H #### [facility]0 [place] [address] Blocking Machine Operator Second: Remy Haq DO Basic Metabolic Profon 02-20 (cont.) Normal [facility] Comment on above: Result Comment: Aver age GFR for 20-29 years old: 116 mL/min/1.73sq m Chronic Kidney Disease: <60 mL/min/1.73sq m Kidney failure: <15 mL/min/1.73sq m eGFR calculated using average adult body mass. Additional eGFR calculator available at: http://www.Aledade.Snapt/multiple_crcl_2012.htm Performed By: #### Joy YUN, BMP #### [facility] [address] [place] [address]. [place] [address] Blocking Machine Operator Second: Remy Haq DO Anion gap [Moles/Vol] 13 mmol/L Normal 9-17 [facility] Comment on above: Performed By: #### Joy YUN, BMP #### [facility] [place] [address] Blocking Machine Operator Second: Remy Haq DO Calcium [Mass/Vol] 8.8 mg/dL Normal 8.6-10.4 [facility] Comment on above: Performed By: #### Joy YUN, BMP #### [facility] [facility] [place] [address] Blocking Machine Operator Second: Remy Haq DO Chloride [Moles/Vol] 103 mmol/L Normal 98-107 [facility] Comment on above: Performed By: #### C BC, BMP #### [facility] [address] [place] [address] Blocking Machine Operator Second: Remy Haq DO CO2 [Moles/Vol] 25 mmol/L Normal 20-31 [facility] Comment on above: Performed By: #### C BC, BMP #### [facility] [facility] [place] [address] Blocking Machine Operator Second: Remy Haq DO Creatinine [Mass/Vol] 0.72 mg/dL Normal 0.50-0.90 [facility] Comment on above: Performed By: #### C JAMA, BMP #### [facility] [place] [address] Blocking Machine Operator Second: Remy Haq DO GFR, Amer >60 Normal >60 [facility] Comment on above: Performed By: #### C JAMA, BMP #### [facility] [place] [address] Blocking Machine Operator Second: Remy Haq DO GFR,non Amer >60 Normal >60 [facility] Comment on above: Performed By: #### C JAMA, BMP #### [facility] [address] [place] [address]. [place] [address] Blocking Machine Operator Second: Remy Haq DO Glucose [Mass/Vol] 96 mg/dL Normal 70-99 [facility] Comment on above: Performed By: #### C BC, BMP #### [facility] [place] [address] Blocking Machine Operator Second: Remy Haq DO Potassium [Moles/Vol] 4.0 mmol/L Normal 3.7-5.3 [facility] Comment on above: Performed By: #### C BC, BMP #### [facility] [address] [place], [place] [address] [place] [address] Blocking Machine Operator Second: Remy Haq DO Sodium [Moles/Vol] 141 mmol/L Normal 135-144 [facility] Comment on above: Performed By: #### Joy YUN, BMP #### [facility] [address] [place] [address] Blocking Machine Operator Second: Remy Haq DO Urea nitrogen [Mass/Vol] 10 mg/dL Normal -20 [facility] Comment on above: Performed By: #### Joy YUN, BMP #### [facility] [facility] [place] [address] Blocking Machine Operator Second: Remy Haq DO BUN/CRE Ratio NOT REPORTED Normal -20 [facility] Comment on above: Performed By: #### Joy YUN, BMP #### [facility] [facility] [address] Blocking Machine Operator Second: Remy Haq DO Staging: NOT REPORTED Normal [facility] Comment on above: Performed By: #### Joy YUN, BMP #### [facility] [address] [place], [place] [address] [place] [address] Blocking Machine Operator Second: Remy Haq DO CBCon 02-20-2019 Erythrocyte distribution width (RBC) [Ratio] 16.5 % High 11.5-14.9 [facility] Comment on above: Performed By: #### Joy YUN, BMP #### [facility] [address] [place], [place] [address] [place] [address] Blocking Machine Operator Second: Remy Haq DO Hematocrit (Bld) [Volume fraction] 25.9 % Low 36-46 [facility] Comment on above: Performed By: #### Joy YUN, BMP #### [facility] [place] [address] Blocking Machine Operator Second: Remy Haq DO Hemoglobin (Bld) [Mass/Vol] 8.6 g/dL Low 12.0-16.0 [facility] Comment on above: Performed By: #### Joy YUN, BMP #### [facility] [place] [address] Blocking Machine Operator Second: Remy Haq DO MCH (RBC) [Entitic mass] 28.2 pg Normal 26-34 [facility] Comment on above: Performed By: #### Joy YUN, BMP #### [facility] [address] [place] [address] Blocking Machine Operator Second: Remy Haq DO MCHC (RBC) [Mass/Vol] 33.0 g/dL Normal 31-37 [facility] Comment on above: Performed By: #### Joy YUN, JEWELL #### [facility] [address] [place] [address] Blocking Machine Operator Second: Remy Haq DO MCV (RBC) [Entitic vol] 85.4 fL Normal 80-100 [facility] Comment on above: Performed By: #### Joy YUN, BMP #### [facility] [address] [place] [address] Blocking Machine Operator Second: Remy Haq DO Platelet mean volume (Bld) [Entitic vol] 6.7 fL Normal 6.0-12.0 [facility] Comment on above: Performed By: #### Joy YUN, BMP #### [facility] [address] [place] [address] Blocking Machine Operator Second: Remy Haq DO Platelets (Bld) [#/Vol] 419 10*3/uL Normal 150-450 [facility] Comment on above: Performed By: #### Joy YUN, BMP #### [facility] [address] [place] [address] Blocking Machine Operator Second: Remy Haq DO RBC (Bld) [#/Vol] 3.03 10*6/uL Low 4.0-5.2 [facility] Comment on above: Performed By: #### C BC, BMP #### [facility] [address] [place] [address] Blocking Machine Operator Second: Remy Haq DO WBC (Bld) [#/Vol] 6.3 10*3/uL Normal 3.5-11.0 [facility] Comment on above: Performed By: #### C BC, BMP #### [facility] [place] [address] Blocking Machine Operator Second: Remy Haq DO NRBC Automated NOT REPORTED Normal [facility] Comment on above: Performed By: #### C JAMA, BMP #### [facility] [address] [place] [address]. [place] [address] Blocking Machine Operator Second: Remy Haq DO Hgb/Hcton 02-20-2019 Hematocrit (Bld) [Volume fraction] 29.6 % Low 36-46 [facility] Comment on above: Performed By: #### H H #### [facility] [address] [place] [address] Blocking Machine Operator Second: Remy Haq DO Hemoglobin (Bld) [Mass/Vol] 9.7 g/dL Low 12.0-16.0 [facility] Comment on above: Performed By: #### H H #### [facility] [place] [address] Blocking Machine Operator Second: Remy Haq DO CBCon 02-19-2019 Erythrocyte distribution width (RBC) [Ratio] 16.6 % High 11.5-14.9 [facility] Comment on above: Performed By: #### C BC #### [facility] [address] [place] [address] Blocking Machine Operator Second: Remy Haq DO Hematocrit (Bld) [Volume fraction] 23.2 % Low 36-46 [facility] Comment on above: Performed By: #### C BC #### [facility] [address] [place] [address] Blocking Machine Operator Second: Remy Haq DO Hemoglobin (Bld) [Mass/Vol] 7.6 g/dL Low 12.0-16.0 [facility] Comment on above: Performed By: #### C BC #### [facility] [address] [place] [address] Blocking Machine Operator Second: Remy Haq DO MCH (RBC) [Entitic mass] 27.8 pg Normal 26-34 [facility] Comment on above: Performed By: #### C BC #### [facility] [address] [place] [address] Blocking Machine Operator Second: Remy Haq DO MCHC (RBC) [Mass/Vol] 32.7 g/dL Normal 31-37 [facility] Comment on above: Performed By: #### C BC #### [facility] [place] [address] Blocking Machine Operator Second: Remy Haq DO MCV (RBC) [Entitic vol] 85.0 fL Normal 80-100 [facility] Comment on above: Performed By: #### C BC #### [facility] [place] [address] Blocking Machine Operator Second: Remy Haq DO Platelet mean volume (Bld) [Entitic vol] 6.5 fL Normal 6.0-12.0 [facility] Comment on above: Performed By: #### C BC #### [facility] [place] [address] Blocking Machine Operator Second: Remy Haq DO Platelets (Bld) [#/Vol] 444 10*3/uL Normal 150-450 [facility] Comment on above: Performed By: #### C BC #### [facility] [address] [place] [address] Blocking Machine Operator Second: Remy Haq DO RBC (Bld) [#/Vol] 2.73 10*6/uL Low 4.0-5.2 [facility] Comment on above: Performed By: #### C BC #### [facility] [address] [place] [address] Blocking Machine Operator Second: Remy Haq DO WBC (Bld) [#/Vol] 5.1 10*3/uL Normal 3.5-11.0 [facility] Comment on above: Performed By: #### C BC #### [facility] [place] [address] Blocking Machine Operator Second: Remy Haq DO NRBC Automated NOT REPORTED Normal [facility] Comment on above: Performed By: #### C BC #### [facility] [address] [place] [address] Blocking Machine Operator Second: Remy Haq DO Type + Crossmatchon 02-20-20 19 Type + Crossmatch Sample Expiration 02/22/2019 Arm Band Number [id number] ABO/Rh(D) A POSITIVE Antibody Screen NEGATIVE Blood Bank Comment Pt's ABRh confirmed as A POS:402 Results Verified BLANCHE, Polyspecific NEGATIVE BLANCHE, Anti-IgG Loreta Serum NEGATIVE Antibody Ident Anti-[place](A) Present Unit Number [id number] Blood Component Type Leukocyte Reduced Red Cell Unit Division 00 Status of Unit TRANSFUSED Transfusion Status OK TO TRANSFUSE Crossmatch Result COMPATIBLE Normal [facility] Comment on above: Performed By: #### T YX #### [facility] [address] [place] [address] Blocking Machine Operator Second: Fanelly, Remy, DO Basic Metab w/rfx MGon 02-16 (cont.) Normal [facility] Comment on above: Result Comment: Aver age GFR for 20-29 years old: 116 mL/min/1.73sq m Chronic Kidney Disease: <60 mL/min/1.73sq m Kidney failure: <15 mL/min/1.73sq m eGFR calculated using average adult body mass. Additional eGFR calculator available at: http://www.Refresh.io/multiple_crcl_2012.htm Performed By: #### B MPX, CBC #### [facility] [address] [facility] [place] [address] Blocking Machine Operator Second: Remy Haq DO Anion gap [Moles/Vol] 11 mmol/L Normal 9-17 [facility] Comment on above: Performed By: #### B MPX, CBC #### [facility] [address] [facility] [place] [address] Blocking Machine Operator Second: Remy Haq DO Calcium [Mass/Vol] 8.6 mg/dL Normal 8.6-10.4 [facility] Comment on above: Performed By: #### B MPX, CBC #### [facility] [address] [facility] [place] [address] Blocking Machine Operator Second: Remy Haq DO Chloride [Moles/Vol] 100 mmol/L Normal 98-107 [facility] Comment on above: Performed By: #### B MPX, CBC #### [facility] [address] [facility] [place] [address] Blocking Machine Operator Second: Remy Haq DO CO2 [Moles/Vol] 26 mmol/L Normal 20-31 [facility] Comment on above: Performed By: #### B MPX, CBC #### [facility] [address] [facility] [address] Blocking Machine Operator Second: Remy Haq DO Creatinine [Mass/Vol] 0.62 mg/dL Normal 0.50-0.90 [facility] Comment on above: Performed By: #### B MPX, CBC #### [facility] [address] [place] [address] Blocking Machine Operator Second: Remy Haq, DO GFR, Amer >60 Normal >60 [facility] Comment on above: Performed By: #### B MPX, CBC #### [facility] [address] [place] [address] Blocking Machine Operator Second: Remy Haq, DO GFR,non Amer >60 Normal >60 [facility] Comment on above: Performed By: #### B MPX, CBC #### [facility] [place] [address] Blocking Machine Operator Second: Remy Haq DO Glucose [Mass/Vol] 95 mg/dL Normal 70-99 [facility] Comment on above: Performed By: #### B MPX, CBC #### [facility] [place] [address] Blocking Machine Operator Second: Remy Haq DO Potassium [Moles/Vol] 4.2 mmol/L Normal 3.7-5.3 [facility] Comment on above: Performed By: #### B MPX, CBC #### [facility] [facility] [address] Blocking Machine Operator Second: Remy Haq DO Sodium [Moles/Vol] 137 mmol/L Normal 135-144 [facility] Comment on above: Performed By: #### B MPX, CBC #### [facility] [address] [place] [address] Blocking Machine Operator Second: Remy Haq DO Urea nitrogen [Mass/Vol] 11 mg/dL Normal 6-20 [facility] Comment on above: Performed By: #### B MPX, CBC #### [facility] [address] [place] [address] Blocking Machine Operator Second: Remy Haq DO BUN/CRE Ratio NOT REPORTED Normal 9-20 [facility] Comment on above: Performed By: #### B MPX, CBC #### [facility] [address] [facility] [place] [address] Blocking Machine Operator Second: Remy Haq DO Staging: NOT REPORTED Normal [facility] Comment on above: Performed By: #### B MPX, CBC #### [facility] [place] [address] Blocking Machine Operator Second: Remy Haq DO CBCon 02-16-2019 Erythrocyte distribution width (RBC) [Ratio] 16.3 % High 11.5-14.9 [facility] Comment on above: Performed By: #### B MPX, CBC #### [facility] [place] [address] Blocking Machine Operator Second: Remy Haq DO Hematocrit (Bld) [Volume fraction] 22.4 % Low 36-46 [facility] Comment on above: Performed By: #### B MPX, CBC #### [facility] [place] [address] Blocking Machine Operator Second: Remy Haq DO Hemoglobin (Bld) [Mass/Vol] 7.6 g/dL Low 12.0-16.0 [facility] Comment on above: Performed By: #### B MPX, CBC #### [facility] [facility] [place] [address] Blocking Machine Operator Second: Remy Haq DO MCH (RBC) [Entitic mass] 29.4 pg Normal 26-34 [facility] Comment on above: Performed By: #### B MPX, CBC #### [facility] [address] [place] [address] Blocking Machine Operator Second: Remy Haq DO MCHC (RBC) [Mass/Vol] 33.8 g/dL Normal 31-37 [facility] Comment on above: Performed By: #### B MPX, CBC #### [facility] [address] [place] [address] Blocking Machine Operator Second: Remy Haq DO MCV (RBC) [Entitic vol] 87.1 fL Normal 80-100 [facility] Comment on above: Performed By: #### Adam MPX, CBC #### [facility] [address] [place] [address] Blocking Machine Operator Second: Remy Haq DO Platelet mean volume (Bld) [Entitic vol] 6.4 fL Normal 6.0-12.0 [facility] Comment on above: Performed By: #### Adam MPX, CBC #### [facility] [address] [place] [address] Blocking Machine Operator Second: Remy Haq DO Platelets (Bld) [#/Vol] 503 10*3/uL High 150-450 [facility] Comment on above: Performed By: #### Adam MPX, CBC #### [facility] [address] [place] [address] Blocking Machine Operator Second: Remy Haq DO RBC (Bld) [#/Vol] 2.57 10*6/uL Low 4.0-5.2 [facility] Comment on above: Performed By: #### B MPX, CBC #### [facility] [address] [place] [address] Blocking Machine Operator Second: Remy Haq DO WBC (Bld) [#/Vol] 7.5 10*3/uL Normal 3.5-11.0 [facility] Comment on above: Performed By: #### B MPX, CBC #### [facility] [address] [place] [address] Blocking Machine Operator Second: Remy Haq DO NRBC Automated NOT REPORTED Normal [facility] Comment on above: Performed By: #### B MPX, CBC #### [facility] [address] [place] [address] Blocking Machine Operator Second: Remy Haq DO Basic Metabolic Panel w/ Ref savanah to MGon 02-15-2019 Anion gap [Moles/Vol] 14 mmol/L 9 - 17 mmol/L [place] Bun/Cre Ratio NOT REPORTED [place] Calcium [Mass/Vol] 8.4 mg/dL Low 8.6 - 10. 4 mg/dL [place] Chloride [Moles/Vol] 102 mmol/L 98 - 10 7 mmol/L [place] CO2 [Moles/Vol] 24 mmol/L 20 - 31 mmol/L [place] Creatinine [Mass/Vol] 0.57 mg/dL 0.5 - 0.9 mg/dL [place] GFR >60 >60 mL/min [place] GFR Non- >60 >60 mL/min [place] GFR/1.73 sq M predicted among non-blacks MDRD (S/P/Bld) [Vol rate/Area] [place] Comment on above: Average GFR for 20-2 9 years old: 116 mL/min/1.73sq m Chronic Kidney Disease: <60 mL/min/1.73sq m Kidney failure: <15 mL/min/1.73sq m eGFR calculated using average adult body mass. Additional eGFR calculator available at: http://www.Aledade.com/multiple_crcl_2012.htm GFR/1.73 sq M predicted among non-blacks MDRD (S/P/Bld) [Vol rate/Area] NOT REPORTED [place] Glucose [Mass/Vol] 106 mg/dL High 70 - 99 mg/dL [place] Interpretation and review of laboratory results Abnormal [place] Potassium [Moles/Vol] 4.0 mmol/L 3.7 - 5.3 mmol/L [place] Sodium [Moles/Vol] 140 mmol/L 135 - 144 mmol/L [place] Urea nitrogen [Mass/Vol] 11 mg/dL 6 - 20 mg/dL [place] CBC WITH AUTO DIFFERENTIALon 02-15-2019 Basophils (Bld) [#/Vol] 0.06 10*3/uL [place] Basophils/100 WBC (Bld) 1 % 0 - 2 % [place] Differential Type NOT REPORTED [place] Eosinophils (Bld) [#/Vol] 0.33 10*3/uL [place] Eosinophils/100 WBC (Bld) 5 % High 1 - 4 % [place] Erythrocyte distribution width (RBC) [Ratio] 15.3 % High 11.8 - 14.4 % [place] Hematocrit (Bld) [Volume fraction] 24.9 % Low 36.3 - 47.1 % [place] Hemoglobin (Bld) [Mass/Vol] 7.5 g/dL Low 11.9 - 15.1 g/dL [place] Immature granulocytes (Bld) [#/Vol] 1 % High 0 [place] Immature granulocytes (Bld) [#/Vol] 0.10 10*3/uL [place] Interpretation and review of laboratory results Abnormal [place] Lymphocytes (Bld) [#/Vol] 1.93 10*3/uL [place] Lymphocytes/100 WBC (Bld) 27 % 24 - 43 % [place] MCH (RBC) [Entitic mass] 28.2 pg 25.2 - 33.5 pg [place] MCHC (RBC) [Mass/Vol] 30.1 g/dL 28.4 - 34.8 g/dL [place] MCV (RBC) [Entitic vol] 93.6 fL 82.6 - 102.9 fL [place] Monocytes (Bld) [#/Vol] 0.60 10*3/uL [place] Monocytes/100 WBC (Bld) 8 % 3 - 12 % [place] Platelet mean volume (Bld) [Entitic vol] 9.0 fL 8.1 - 13.5 fL [place] Platelets (Bld) [#/Vol] 458 10*3/uL [place] Platelets (Bld) [#/Vol] NOT REPORTED [place] RBC (Bld) [#/Vol] 2.66 10*6/uL Low 3.95 - 5.1 1 m/uL [place] RBC morphology finding Nom (Bld) ANISOCYTOSIS PRESENT [place] Segmented neutrophils/100 WBC (Bld) 58 % 36 - 65 % [place] Segs Absolute 4.19 [place] WBC (Bld) [#/Vol] 7.2 10*3/uL [place] WBC (Bld) [#/Vol] 0.0 10*3/uL 0.0 per 10 0 WBC [place] WBC Morphology NOT REPORTED [place] Basic Metabolic Panel w/ Ref savanah to MGon 02-13-2019 Anion gap [Moles/Vol] 13 mmol/L 9 - 17 mmol/L [place] Bun/Cre Ratio NOT REPORTED [place] Calcium [Mass/Vol] 8.5 mg/dL Low 8.6 - 10. 4 mg/dL [place] Chloride [Moles/Vol] 105 mmol/L 98 - 10 7 mmol/L [place] CO2 [Moles/Vol] 23 mmol/L 20 - 31 mmol/L [place] Creatinine [Mass/Vol] 0.46 mg/dL Low 0.5 - 0.9 mg/dL [place] GFR >60 >60 mL/min [place] GFR Non- >60 >60 mL/min [place] GFR/1.73 sq M predicted among non-blacks MDRD (S/P/Bld) [Vol rate/Area] NOT REPORTED [place] GFR/1.73 sq M predicted among non-blacks MDRD (S/P/Bld) [Vol rate/Area] [place] Comment on above: Average GFR for 20-2 9 years old: 116 mL/min/1.73sq m Chronic Kidney Disease: <60 mL/min/1.73sq m Kidney failure: <15 mL/min/1.73sq m eGFR calculated using average adult body mass. Additional eGFR calculator available at: http://www.Refresh.io/multiple_crcl_2012.htm Glucose [Mass/Vol] 86 mg/dL 70 - 99 mg/dL [place] Interpretation and review of laboratory results Abnormal [place] Potassium [Moles/Vol] 4.3 mmol/L 3.7 - 5.3 mmol/L [place] Sodium [Moles/Vol] 141 mmol/L 135 - 144 mmol/L [place] Urea nitrogen [Mass/Vol] 9 mg/dL 6 - 20 mg/dL [place] CBC WITH AUTO DIFFERENTIALon 02-13-2019 Basophils (Bld) [#/Vol] 0.06 10*3/uL [place] Basophils/100 WBC (Bld) 1 % 0 - 2 % [place] Differential Type NOT REPORTED [place] Eosinophils (Bld) [#/Vol] 0.40 10*3/uL [place] Eosinophils/100 WBC (Bld) 5 % High 1 - 4 % [place] Erythrocyte distribution width (RBC) [Ratio] 14.8 % High 11.8 - 14.4 % [place] Hematocrit (Bld) [Volume fraction] 25.0 % Low 36.3 - 47.1 % [place] Hemoglobin (Bld) [Mass/Vol] 7.4 g/dL Low 11.9 - 15.1 g/dL [place] Immature granulocytes (Bld) [#/Vol] 2 % High 0 [place] Immature granulocytes (Bld) [#/Vol] 0.14 10*3/uL [place] Interpretation and review of laboratory results Abnormal [place] Lymphocytes (Bld) [#/Vol] 2.18 10*3/uL [place] Lymphocytes/100 WBC (Bld) 25 % 24 - 43 % [place] MCH (RBC) [Entitic mass] 27.1 pg 25.2 - 33.5 pg [place] MCHC (RBC) [Mass/Vol] 29.6 g/dL 28.4 - 34.8 g/dL [place] MCV (RBC) [Entitic vol] 91.6 fL 82.6 - 102.9 fL [place] Monocytes (Bld) [#/Vol] 0.66 10*3/uL [place] Monocytes/100 WBC (Bld) 8 % 3 - 12 % [place] Platelet mean volume (Bld) [Entitic vol] 8.9 fL 8.1 - 13.5 fL [place] Platelets (Bld) [#/Vol] 440 10*3/uL [place] Platelets (Bld) [#/Vol] NOT REPORTED [place] RBC (Bld) [#/Vol] 2.73 10*6/uL Low 3.95 - 5.1 1 m/uL [place] RBC morphology finding Nom (Bld) ANISOCYTOSIS PRESENT [place] Segmented neutrophils/100 WBC (Bld) 61 % 36 - 65 % [place] Segs Absolute 5.37 [place] WBC (Bld) [#/Vol] 0.0 10*3/uL 0.0 per 10 0 WBC [place] WBC (Bld) [#/Vol] 8.8 10*3/uL [place] WBC Morphology NOT REPORTED [place] ECHO Complete 2D W Doppler W Coloron 02-13-2019 Transthoracic Echocardiography Report (TTE) Patient Name CECI PERKINS Date of Study 02/13/2019 C Date of 1995 Gender Female Age 23 year(s) Race Unknown Room Number 0240 Height: 65 inch, 165.1 cm Corporate ID [id number] Weight: 301 pounds, 136.5 kg # Patient Acct [id number] BSA: 2.35 m^2 BMI: 50.09 kg/m^2 # MR # [id number] Senior Foreman Kaylen Jasso Interpreting Physician Anhtony Keating Fellow Referring Nurse Practitioner Interpreting Referring Physician MICHAEL MURDOCK MD Fellow Type of Study TTE procedure:2D Echocardiogram, M-Mode, Doppler, Color Doppler. Procedure Date Date: 02/13/2019 Start: 08:48 AM Study Location: [facility] Technical Quality: Adequate visualization Indications:Irregula [...] is seen. Signature Electronically signed by Anthony Keating([facility] physician) on 02/13/2019 02:00 PM FINDINGS Left [...] Wall E' velocity:0.17 m/s Lateral Wall E/E':5.8 [place], [place] Tamir, Mhpn Incoming Cardio Results From [facility]/ - 02/13/2019 2:01 PM EDT Transthoracic Echocardiography Report (TTE) Patient Name CECI PERKINS Date of Study 02/13/2019 C Date of 1995 Gender Female Age 23 year(s) Race Unknown Room Number 0240 Height: 65 inch, 165.1 cm Corporate ID [id number] Weight: 301 pounds, 136.5 kg # Patient Acct [id number] BSA: 2.35 m^2 BMI: 50.09 kg/m^2 # MR # [id number] Senior Foreman Kaylen Jasso Interpreting Physician Anthony Keating Fellow Referring Nurse Practitioner Interpreting Referring Physician MICHAEL MURDOCK MD Fellow Type of Study TTE procedure:2D Echocardiogram, M-Mode, Doppler, Color Doppler. Procedure Date Date: 02/13/2019 Start: 08:48 AM Study Location: [facility] Technical Quality: Adequate visualization Indications:Irregula [...] seen. Signature - Electronically signed by Anthony Keating([facility] physician) on 02/13/2019 02:00 PM - - [...] Wall E' velocity:0.17 m/s Lateral Wall E/E':5.8 [facility] [employer], [place] EKG 12 Leadon 02-11-2019 Atrial Rate 99 BPM [facility] [place] P [place] 69 degrees [facility] [place] P-R Interval 136 ms [facility] [place] Q-T Interval 344 ms [facility] [place] QRS Duration 80 ms [facility] [employer] [place] QTc Calculation (Bazett) 441 ms [facility] [employer] R [place] 16 degrees [facility] [place] T [place] 4 degrees [place] Ventricular Rate 99 BPM [place] Tamir, Mhpn Incoming Ekg Results From [facility] [place] - 02/11/2019 11:00 AM EDT Normal sinus rhythm Cannot rule out Anterior infarct , age undetermined Abnormal ECG When compared with ECG of 31-JAN-2019 19:55, No significant change was found [place] Normal sinus rhythm Cannot rule out Anterior infarct , age undetermined Abnormal ECG When compared with ECG of 31-JAN-2019 19:55, No significant change was found [place] HEMOGLOBIN AND HEMATOCRIT, B LOODon 02-11-2019 Hematocrit (Bld) [Volume fraction] 27.0 % Low 36.3 - 47.1 % [place] Hemoglobin (Bld) [Mass/Vol] 8.3 g/dL Low 11.9 - 15.1 g/dL [place] Interpretation and review of laboratory results Abnormal [place] Microscopic Urinalysison Amorphous, UA NOT REPORTED None [place] Bacteria, UA NOT REPORTED None [place], [place] Casts UA [place] Crystals UA NOT REPORTED None /HPF [place] Epithelial Cells UA 0 TO 2 [place] Mucus, UA NOT REPORTED None [place] Other Observations UA NOT REPORTED NOT REQ. M [place] RBC (U) [#/Vol] 5 TO 10 [place] Comment on above: Reference range defi xiomy for non-centrifuged specimen. Renal Epithelial, Urine NOT REPORTED 0 /HPF [place] Trichomonas, UA NOT REPORTED None [place] WBC, UA TOO NUMEROUS TO COUNT [place] Yeast, UA NOT REPORTED None [place] URINALYSISon 02-11-2019 Bilirubin Urine Negative NEGATIVE [place] Color, UA YELLOW YELLOW [place] Glucose, Ur Negative NEGATIVE [place] Interpretation and review of laboratory results Abnormal [place] Ketones Ql (U) Negative NEGATIVE [place] Leukocyte esterase Test strip Ql (U) LARGE Abnormal NEGATIVE [place] Nitrite, Urine Negative NEGATIVE [place] pH, UA 5.0 [place] Protein (U) [Mass/Vol] Negative NEGATIVE Me [place], [place] Specific [place], UA 1.013 [place], [place] Turbidity UA CLOUDY Abnormal CLEAR [place] Urinalysis Comments NOT REPORTED [place], [place] Urine Hgb MODERATE Abnormal NEGATIVE [place] Urobilinogen, Urine Normal Normal [place] HEMOGLOBIN AND HEMATOCRIT, B LOODon 02-10-2019 Hematocrit (Bld) [Volume fraction] 22.5 % Low 36.3 - 47.1 % [place] Hemoglobin (Bld) [Mass/Vol] 6.8 g/dL Critically low 11.9 - 15.1 g/dL [place] Interpretation and review of laboratory results Abnormal [place] TYPE AND SCREENon 02-10-2019 ABO/Rh Positive [place], [place] Arm Band Number [id number] [place], [place] Blood product type Nom (BPU) Leukocyte Reduced Red Cell [place] Crossmatch Result COMPATIBLE [facility] [place] Dispense Status TRANSFUSED [place], [place] Expiration Date 02/10/2019 [place] Transfusion Status OK TO TRANSFUSE M [place] Unit Divison 0 [place], [place] Unit Number [id number] [place] CT PELVIS WO CONTRAST Additi onal Contrast? Noneon 02-09-2019 Tamir, Mhpn Incoming Radiant Results From [facility] - 02/09/2019 12:47 PM EDT EXAMINATION: CT [...] extends anterior to the inferior pubic ramus. [place] EXAMINATION: CT OF THE PELVIS WITHOUT [...] chris edema and small foci of air. [place] 1. Improved alignment of the right posterior wall acetabular fracture status post ORIF. 2. Small intra-articular right hip loose bodies. 3. The long screw extends anterior to the inferior pubic ramus. [place] HEMOGLOBIN AND HEMATOCRIT, B LOODon 02-09-2019 Hematocrit (Bld) [Volume fraction] 19.2 % Low 36.3 - 47.1 % [place] Hemoglobin (Bld) [Mass/Vol] 5.9 g/dL Critically low 11.9 - 15.1 g/dL [place] Comment on above: TEST CONFIRMED Interpretation and review of laboratory results Abnormal [place] Hematocrit (Bld) [Volume fraction] 21.2 % Low 36.3 - 47.1 % [place] Hemoglobin (Bld) [Mass/Vol] 6.6 g/dL Critically low 11.9 - 15.1 g/dL [place] Comment on above: TEST CONFIRMED Interpretation and review of laboratory results Abnormal [place] Hematocrit (Bld) [Volume fraction] 23.6 % Low 36.3 - 47.1 % [place] Hemoglobin (Bld) [Mass/Vol] 7.2 g/dL Low 11.9 - 15.1 g/dL [place] Interpretation and review of laboratory results Abnormal [place] CV HGB/HCTon 02-08-2019 Hematocrit (Bld) [Volume fraction] 24.4 % [place] Hemoglobin (Bld) [Mass/Vol] 7.8 g/dL gm/dL [place] POCT urine pregnancyon 02-08 Beta HCG ( test) Ql (U) Negative NEGATIVE [place] Comment on above: Specimens with hCG [...] 02-08-2019 Tamir, Mhpn Incoming Radiant Results From [employer] - 02/08/2019 1:24 PM EDT EXAMINATION: THREE XRAY VIEWS OF THE RIGHT FOOT 02/08/2019 1:12 pm COMPARISON: Right ankle radiographs February 01, 2019 HISTORY: ORDERING SYSTEM PROVIDED HISTORY: Trauma/Fracture TECHNOLOGIST PROVIDED HISTORY: Trauma/Fracture FINDINGS: No fracture or dislocation. IMPRESSION: No acute osseous abnormality [facility] EXAMINATION: THREE XRAY VIEWS OF THE RIGHT FOOT 02/08/2019 1:12 pm COMPARISON: Right ankle radiographs February 01, 2019 HISTORY: ORDERING SYSTEM PROVIDED HISTORY: Trauma/Fracture TECHNOLOGIST PROVIDED HISTORY: Trauma/Fracture FINDINGS: No fracture or dislocation. FleckBLAINE No acute osseous abnormality [facility] [employer] BLAINE XR PELVIS (MIN 3 VIEWS)on EXAMINATION: ONE XRAY VIEW OF THE PELVIS 02/08/2019 12:48 pm COMPARISON: 01/31/2019 HISTORY: ORDERING SYSTEM PROVIDED HISTORY: AP,Judets. Post op pacu TECHNOLOGIST PROVIDED HISTORY: AP,Judets. Post op pacu FINDINGS: Status post internal fixation of the right acetabulum. Anatomic alignment. No hardware complications. [facility] Tamir, Mhpn Incoming Radiant Results From [employer] - 02/08/2019 12:57 PM EDT EXAMINATION: ONE XRAY VIEW OF THE PELVIS 02/08/2019 12:48 pm COMPARISON: 01/31/2019 HISTORY: ORDERING SYSTEM PROVIDED HISTORY: AP,Judets. Post op pacu TECHNOLOGIST PROVIDED HISTORY: AP,Judets. Post op pacu FINDINGS: Status post internal fixation of the right acetabulum. Anatomic alignment. No hardware complications. IMPRESSION: Anatomic alignment status post internal fixation of the right acetabulum [facility] Anatomic alignment status post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
[2024-07-15] MEDS: BENZOCAINE 30 ML, lidocaine HCL 15 ML MM (15:53)
[2024-07-15] MEDS: AMOXICILLIN 500 MG CAPSULE PO (15:53)
== END 2024-07-15 15:56 | disposition home or self-care (01) ==
LOC: ER 15:24
PROVIDERS: Emergency Provider Emergency Medicine; PCP Nurse Practitioner
DX: O99.891 Other specified diseases and conditions complicating pregnancy (principal); K08.89 Other specified disorders of teeth and supporting structures; K02.9 Dental caries, unspecified; Z3A.19 19 weeks gestation of pregnancy
CPT/HCPCS: 99283

== ENCOUNTER 2024-07-31 21:46 | Outpatient (REF) | payer OTHER, SELFPAY ==
--- OUTSIDE RECORDS SUMMARY | 2024-07-31 21:51 | XMS_ITS | CCD ---
Author Organization [facility] Care Team Providers Care Chief Warden Name Role Phone Ally Craig Primary Care Provider [phone] TERRI AUGUSTIN Admitting Unavailable TERRI AUGUSTIN Attending Unavailable ALLY CRAIG Primary Care Unavailable VIDYA FERRER Consulting Unavailable ALANA, DR HILLIARD Attending Unavailable ALANA, DR HILLIARD Consulting Unavailable ALANA, DR HILLIARD Admitting Unavailable Jeane Canela Unavailable Kiara TECHNOLOGY SUPPORT ANALYST - [employer]ANT ENGINEER, Ally Pop Primary Care Pro vider ALLY CRAIG Primary Care Unavailable MARY MAZARIEGOS Referring Unavailable ALLY CRAIG Primary Care Unavailable MARY MAZARIEGOS Referring Unavailable RADHA HERNANDEZ Referring Unavailable ALLY CRAIG A Primary Care Unavailable NON STAFF Primary Care Provider UnavailRAFA Crowder Attending Provider [phone] NON STAFF Primary Care Unavailable Janna Escalera Attending Unavailable Janna Escalera Admitting Unavailable RADHA HERNANDEZ Attending Unavailable ALLY CRAGI A Referring Unavailable ALLY CRAIG A Primary Care Unavailable DOC GUEVARA Attending Unavailable LAUREN SCOTT Referring Unavailable ALLY CRAIG A Primary Care Unavailable ALLY CRAIG Attending Unavailable ALLY CRAIG Referring Unavailable ALLY CRAIG Primary Care Unavailable RADHA HERNANDEZ Attending Unavailable ALLY CRAIG A Referring Unavailable ALLY CRAIG Primary Care Unavailable ALLY CRAIG Attending Unavailable ALLY CRAIG Referring Unavailable ALLY CRAIG A Primary Care Unavailable Kiara TECHNOLOGY SUPPORT ANALYST-[employer] SEQUE[employer] PLANT ENGINEERAlly Primary Care Provi collin Unavailable Primary Care Provider CEDRIC Lockett Attending Unavailable Allergies Allergy Classification Reported Allergen(s) Allergy Type Date of Onset Reaction(s) Facility strawberry allergenic extract (1 source) strawberry allergenic extract Drug Allergy [facility] Repository (3 sources) strawberry allergenic extract Drug Allergy 9 Anaphylaxis [place], [place] (6 sources) [place] Propensity to adverse reactions 9 Anaphylaxis [facility] Medications Current Medications Medication Drug Class(es) Dates Sig (Normalized) Sig (Original) acetaminophen 500 mg oral tablet (1 source) Start: 02-01-2019 acetaminophen (TYLENOL) tablet 1,000 mg [id number] 200 actuat albuterol 0.09 mg/actuat metered dose inhaler (10 sources) beta2-Adrenergic Agonist Start: 07-24-2024 take 2 puff(s) by inhalation every six hours as needed for wheezing albuterol (PROVENTIL HFA;VENTOLIN HFA) 90 mcg/actuation inhaler Indications: Chest cold , Acute cough , Wheezing Inhale 2 puffs every 6 (six) hours as needed for wheezing. 18 g 3 07/24/2024 Active Start: 04-26-2023 End: 07-23-2024 take 2 puff(s) by inhalation every six hours as needed for wheezing albuterol (PROVENTIL HFA;VENTOLIN HFA) 90 mcg/actuation inhaler Indications: Chest cold , Acute cough , Wheezing Inhale 2 puffs every 6 (six) hours as needed for wheezing. 18 g 04/26/2023 07/23/2024 Discontinued (Reorder) Start: 02-22-2019 take 2 puff(s) by in [...] hydrochloride 0.137 mg/actuat metered dose nasal spray (3 sources) Histamine-1 Receptor Antagonist Start: 03-15-2024 take 1 [...] mg busPIRone hydrochloride 7.5 mg oral tablet (14 sources) Start: 03-15-2024 take 1 tablet by [...] 10 mg cholecalciferol 1.25 mg oral tablet (4 sources) Vitamin D Start: 12-28-2022 take 1 tablet [...] by mouth every week vitamin D (ERGOCALCIFEROL) 92452 units CAPS capsule Take 1 capsule by [...] Iron Active lamoTRIgine 25 mg oral tablet (5 sources) Mood Stabilizer, Anti-epileptic Agent Start: 11-23-2022 End: 05-29-2024 lamoTRIgine (LaMICtal) 25 mg tablet 11/23/2022 Active lidocaine 0.05 mg/mg medicated patch (6 sources) Antiarrhythmic, Amide Local Anesthetic Start: 07-17-2024 apply 1 dose transdermal route once daily, then apply 1 dose transdermal route every twelve hours lidocaine (LIDODERM) 5 % Indications: Lumbar disc herniation USE 1 PATCH EXTERNALLY ONCE DAILY . REMOVE AND DISCARD PATCH WITHIN 12 HOURS OR DIRECTED BY DOCTOR. 30 patch 1 07/17/2024 Active Start: 02-15-2024 End: 07-17-2024 apply 1 dose transdermal route once daily, then apply 1 dose transdermal route every twelve hours lidocaine (LIDODERM) 5 % Indications: Lumbar disc herniation Place 1 patch on the skin daily. Remove & Discard patch within 12 hours or as directed by 30 patch 2 02/15/2024 07/17/2024 Discontinued Start: 02-02-2019 End: 02-16-2019 lidocaine 4 % external patch Place 2 patches onto the skin daily for 5 days 5 patch 0 02/11/2019 02/16/2019 Active methylPREDNISolone 4 mg oral tablet (4 sources) Corticosteroid Start: 03-15-2022 methylPREDNISolone 4 MG [...] 02-10-2019 metoprolol (LO PRESSOR) injection 5 mg nystatin 100 unt/mg topical powder (1 source) Polyene Antifungal Start: 12-28-2022 nystatin (M YCOSTATIN) powder Indications: Intertrigo Apply 1 Application topically in the morning and 1 Application at noon and 1 Application in the evening and 1 Application before bedtime. 30 g 2 12/28/2022 Active 2 ml ondansetron 2 mg/ml injection (1 source) Serotonin-3 Receptor Antagonist Start: 02-13-2019 ondansetron (ZOFRAN) injection 4 mg oxyCODONE (4 sources) Opioid Agonist Start: 02-14-2019 oxyCODONE (MENA ICODONE) immediate release tablet 5 mg Start: 02-10-2019 [...] 12:00am vit 10-iron fum-folic 65-1 mg tablet (4 sources) Start: 11-18-2021 take 1 tablet by mouth in the morning vit 10-iron fum-folic 65-1 mg tablet Indications: Morbid obesity (CMS-HCC) , Healthcare maintenance Take 1 tablet by mouth in the morning. 90 tablet 3 11/18/2021 Active sennosides, fpc 8.6 mg oral tablet (2 sources) Start: 02-02-2019 End: 03-12-2019 take 1 tablet by mouth once daily senna (SENOKOT) 8.6 MG tablet Take 1 tablet by mouth nightly 30 tablet 0 02/10/2019 03/12/2019 Active sertraline 50 mg oral tablet (6 sources) Serotonin Reuptake Inhibitor Start: 11-09-2022 sertraline (ZOLOFT) 50 mg tablet Indications: Mixed anxiety and depressive disorder Start 1/2 tab in am x 1 week; then 1 tab daily there after 30 tablet 2 11/09/2022 Active End: 05-29-2024 take 1 tablet by mouth in the morning sertraline (Zoloft) 25 MG tablet Take 25 mg by mouth in the morning. 05/29/2024 Discontinued (Other) sertraline (ZOLO FT) 50 mg tablet 1.5 TABLETS Oral MORNING for 30 days Active Syringe With Needle (Bd Luer-Santy Syringe) 3 mL 25 x 1 1/2 syringe (1 source) Start: 10-20-2023 Syringe With N eedle (Bd Luer-Santy Syringe) 3 mL 25 x 1 1/2 syringe Active ML .ROUTE .MEDSULY 100 October 20, 2023 12:00am As directed syringe with needle (BD LUER-SANTY SYRINGE) 3 mL 25 x 1 1/2 syringe (8 sources) Start: 03-20-2024 syringe with n eedle (BD LUER-SANTY SYRINGE) 3 mL 25 x 1 1/2 syringe Indications: History of sleeve gastrectomy , Postsurgical malabsorption , Malnutrition following gastrointestinal surgery , Vitamin B12 deficiency USE 1 SYRINGE EVERY 30 DAYS 6 each 1 03/20/2024 Active Start: 01-28-2023 syringe with n eedle (BD LUER-SANTY SYRINGE) 3 mL 25 x 1 1/2 syringe Indications: History of sleeve gastrectomy , Postsurgical malabsorption , Malnutrition following gastrointestinal surgery , Vitamin B12 deficiency 1 SYRG by miscellaneous route every 30 (thirty) days. 3 each 3 01/28/2023 Active Start: 02-12-2022 syringe with n eedle (BD LUER-SANTY SYRINGE) 3 mL 25 x 1 1/2 syringe Indications: History of sleeve gastrectomy , Postsurgical malabsorption , Malnutrition following gastrointestinal surgery 1 SYRG by miscellaneous route every 30 (thirty) days. 6 each 1 02/12/2022 Active vitamin b12 1 mg/ml injectable solution (10 sources) Vitamin B12 Start: 10-20-2023 Cyanocobalamin (Vitamin B-12) Active 1000 MCG IM October 20, 2023 12:00am Start: 03-30-2023 End: 05-04-2024 cyanocobalamin (VITAMIN B-12 ) 1,000 mcg/mL injection Indications: History of sleeve gastrectomy , Postsurgical malabsorption , Malnutrition following gastrointestinal surgery INJECT 1 ML INTO THE APPROPRIATE MUSCLE EVERY 30 DAYS 6 mL 1 05/04/2024 Active Completed/Discontinued Medications Medication Drug Class(es) Dates Sig (Normalized) Sig (Original) amoxicillin 500 mg / clavulanate 125 mg oral tablet (1 source) Penicillin-class Antibacterial Start: 02-11-2019 End: 02-13-2019 amoxicillin-clavul anate (AUGMENTIN) 500-125 MG per tablet 1 tablet ARIPiprazole 5 mg oral tablet (6 sources) Atypical Antipsychotic Start: 10-20-2023 End: 05-29-2024 take 5 mg by mouth once daily at bedtime Aripiprazole Discontinued 5 MG PO Daily at bedtime October 20, 2023 12:00am October 20, 2023 11:40am Start: 11-23-2022 take 1 tablet by hilary th at bedtime ARIPiprazole (ABILIFY) 5 mg tablet 1 tablet Orally bedtime for 30 days 11/23/2022 Active calcium chloride 0.0014 meq/ml / potassium chloride 0.004 meq/ml / sodium chloride 0.103 meq/ml / sodium lactate 0.028 meq/ml injectable solution (1 source) Start: 02-10-2019 End: 02-10-2019 lactated ringers bolus ceFAZolin (ANCEF) 3 g in dextrose 5 % 100 mL IVPB (1 source) Start: 02-08-2019 End: 02-09-2019 3 g, Intravenous, EVERY 8 HOURS, 2 doses, First dose on 02/08/19 at 1700, Last dose on Roxy 02/09/19 [...] B12 Start: 02-09-2019 End: 02-09-2019 iron polysaccharide [id number]-xclir acid (FERREX-FORTE) 150-0.025-1 MG capsule 1 mg [...] Problem Date Documented Date Episodic/Chronic Anxiety disorders (5 sources) Other specified anxiety disorders; Translations: [Mixed anxiety and depressive disorder] Onset: 11-09-2022 11-09-2022 Chronic Asthma (8 sources) Asthma; Translations: [Unspecified asthma, uncomplicated] Onset: 04-12-2018 02-01-2019 Chronic Complications of surgical procedures or medical care (9 sources) Postsurgical malabsorption, not elsewhere classified; Translations: [...] viral communicable diseases] Episodic Malaise and fatigue (4 sources) Chronic fatigue, unspecified; Translations: [Fatigue] Onset: [...] acetabulum (HCC)] Onset: 02-08-2019 02-08-2019 Episodic Other lower respiratory disease (5 sources) Wheezing; Translations: [Wheezing] Onset: 04-12-2018 04-12-2018 Episodic Other lower respiratory disease (5 sources) Lower respiratory tract infection; Translations: [Unspecified acute lower respiratory infection] Onset: 04-26-2023 Resolved: 03-15-2024 03-15-2024 Episodic Other lower respiratory disease (4 sources) Cough; Translations: [Acute cough] Onset: 04-26-2023 Resolved: 03-15-2024 03-15-2024 Episodic Other nutritional; endocrine; and metabolic disorders (1 source) Localized adiposity; Translations: [Localized adiposity] Onset: 08-26-2023 Chronic Other nutritional; endocrine; and metabolic disorders (4 sources) Body mass index 30+ - obesity; Translations: [Body mass index (BMI) 39.0-39.9, adult] Onset: 11-09-2022 03-15-2024 Chronic Other nutritional; endocrine; and metabolic disorders (1 source) Localized adiposity; Translations: [Localized adiposity] 08-26-2023 Chronic Other nutritional; endocrine; and metabolic disorders (1 source) Abnormal weight gain; Translations: [Abnormal weight gain] Onset: 03-15-2024 Episodic Other and delivery including normal (6 sources) ; Translations: [Encounter for supervision of normal , unspecified, unspecified trimester] 05-29-2024 Episodic Residual codes; unclassified (2 sources) Past history of procedure; Translations: [H/O cardiac radiofrequency ablation] Onset: 02-01-2019 02-01-2019 Episodic Residual codes; unclassified (2 sources) Gestation period, 15 weeks; Translations: [15 weeks gestation of ] 06-15-2024 Episodic Spondylosis; intervertebral disc disorders; other back problems (5 sources) Other intervertebral disc displacement, lumbar region; [...] Problem Date Documented Date Episodic/Chronic Abdominal pain (4 sources) Abdominal pain; Translations: [Unspecified abdominal pain] Onset: 04-24-2019 Resolved: 03-15-2024 03-15-2024 Episodic Biliary tract disease (4 sources) Cholelithiasis with obstruction; Translations: [Calculus of gallbladder without cholecystitis with obstruction] Onset: 04-26-2019 04-26-2019 Episodic Cardiac dysrhythmias (12 sources) Supraventricular tachycardia; Translations: [Supraventricular tachycardia] Onset: [...] source) Fatigue Onset: 06-07-2023 Episodic Mood disorders (4 sources) Mood disorders Onset: 11-09-2022 11-09-2022 Mycoses (8 sources) Opportunistic mycosis; Translations: [Candidiasis, unspecified] Onset: 04-20-2018 Resolved: 03-15-2024 04-26-2023 Episodic Other circulatory disease (4 sources) History of supraventricular tachycardia; Translations: [Personal history [...] 02-15-2019 02-15-2019 Episodic Other lower respiratory disease (4 sources) Dyspnea; Translations: [Shortness of breath] Onset: 04-12-2018 Resolved: 04-26-2023 04-26-2023 Episodic Other lower respiratory disease (4 sources) Dry cough; Translations: [Recurrent non-productive cough] Onset: 04-12-2018 Resolved: 10-01-2020 10-01-2020 Episodic Other lower respiratory disease (1 source) Cough; Translations: [Acute cough] Onset: 04-26-2023 04-26-2023 Episodic Other nervous system disorders (4 sources) Loss of taste; Translations: [Parageusia] Onset: 07-16-2022 Resolved: 03-15-2024 03-15-2024 Episodic Other nutritional; endocrine; and metabolic disorders (4 sources) Morbid obesity; Translations: [Morbid (severe) obesity due to excess calories] Onset: 11-10-2021 Resolved: 11-09-2022 11-09-2022 Chronic Other nutritional; endocrine; and metabolic disorders (3 sources) Weight increased; Translations: [Abnormal weight gain] Onset: 03-15-2024 03-15-2024 Episodic Other screening for suspected conditions (not mental disorders or infectious disease) (4 sources) Encounter for screening for lipoid disorders; Translations: [Patient encounter status] Onset: 03-15-2024 03-15-2024 Episodic Other upper respiratory disease (5 sources) Other specified disorders of nose and nasal sinuses; Translations: [Other disease of nasal cavity and sinuses] Onset: 07-16-2022 07-16-2022 Episodic Other upper respiratory infections (18 sources) Streptococcal sore throat; Translations: [Streptococcal pharyngitis] Onset: 06-20-2018 Resolved: 03-15-2024 10-20-2023 Episodic Residual codes; unclassified (2 sources) History of radiofrequency ablation operation for arrhythmia; Translations: [Other specified postprocedural states] Onset: 02-01-2019 02-01-2019 Episodic Residual codes; unclassified (1 source) 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]; Translations: [Acquired absence of stomach (part of)] Onset: 11-12-2023 Episodic Residual codes; unclassified (7 sources) History of sleeve gastrectomy; Translations: [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]] Onset: 11-12-2023 05-02-2024 Episodic Results Test Name Value Interpretation Reference Range Facility AFP, SERUM, OPEN SPINA BIFID Aon 07-07-2024 [address] MOM [address] [facility] AFP VALUE 31.8 ng/mL . [facility] COMMENT: Comment . [facility] Comment on above: Yanni West , Ph.D., [facility] Director References: Available Upon Request. Multiples Of Median Cutoffs For AFP Elevations Alonso 2.5 Black 2.8 IDD 2.0 Twins 4.5 Abbreviation Definitions IDD - Insulin Dep Diabetes OSBR - Open Spina Bifida Risk For further inquiries contact [employer] [facility] at [phone]. This test was developed and its performance characteristics determined by [employer]. It has not been cleared or approved by the Food and Drug Administration. Performed at: [facility] [address] [facility], [place], [place] [id number] Machine Set Up Operator Paper Goods: Sinai Arellano [facility], Phone: [phone] GEST. A[age] ON COLLECTION DATE 17.[address] [facility] GESTAT. AGE BASED ON Ultrasound . [facility] Comment on above: 15:0 on 06/15/2024 Recalculations are not recommended when gestational dating by LMP and ultrasound are within 10 days. INSULIN DEP DIABETES No . [facility] INTERPRETATION Comment . [facility] Comment on above: Interpretation: Scre en [...] Customer Services to discuss available options. The [employer] recommends amniocentesis be offered to women age 35 and older. MATERNAL [age] MERLINE 29.[address] [facility] MULTIPLE GESTATION No . [facility] [place] [place] [id number] [address] [facility] RACE . [facility] RESULTS Report . [facility] TEST RESULTS: Negative . [facility] WEIGHT [address] [facility] N [id number] N ULTRASOUND [id number] 0 15 N 1 Y 237 N N N N N White/ [facility] Urinalysis macro (dipstick) panel (U)on 06-15-2024 Bilirubin, UA Negative Negative - 4(70) +++ mg/dL [facility] Blood, UA Negative Negative - 50 Miguel Angel/mcL [facility] Clarity, UA Clear [facility] Color, UA Yellow [facility] Glucose, UA Negative Negative - 1999(110) ++++ mg/dL [facility] Interpretation and review of laboratory results Abnormal [facility] Ketones, UA Negative Negative - 160(16) ++++ mg/dL [facility] Leukocytes, UA Few Negative - 500+++ Eleonora/mcL [facility] Comment on above: small Nitrite, UA Negative Negative - Positive [facility] pH, UA 7 5 - 9 [facility] Protein, UA Negative Negative - 1999(20) ++++ mg/dL [facility] Spec Grav, UA 1.025 1 - 1.03 [facility] Urobilinogen, UA 2.0 0.2 - 12 mg/dL [facility] BOX TESTon 06-06-2024 BOX TEST SENT OUT [facility] BOX1 [facility] BOX2 06/06/24 [facility] Ql (U)o n 05-29-2024 Interpretation and review of laboratory results Abnormal [facility] Preg Test, Ur Positive Negative [facility] Urinalysis macro (dipstick) panel (U)on 05-29-2024 Bilirubin, UA Negative Negative - 4(70) +++ mg/dL [facility] Blood, UA Negative Negative - 50 Miguel Angel/mcL [facility] Clarity, UA Clear [facility] Color, UA Yellow [facility] Glucose, UA Negative Negative - 2000(110) ++++ mg/dL [facility] Interpretation and review of laboratory results Abnormal [facility] Ketones, UA Positive Negative - 160(16) ++++ mg/dL [facility] Comment on above: trace Leukocytes, UA Negative Negative - 500+++ Eleonora/mcL [facility] Nitrite, UA Negative Negative - Positive [facility] pH, UA 6.5 5 - 9 [facility] Protein, UA Negative Negative - 1999(20) ++++ mg/dL [facility] Spec Grav, UA 1.02 1 - 1.03 [facility] Urobilinogen, UA 1.0 0.2 - 12 mg/dL [facility] PREG QUANT HCGon 024 HCG QUANTITATIVE 76618 mIU/mL [facility] Comment on above: 5-50 0.2-1 WEEK 50-500 1-2 WEEKS 100-5,000 2-3 WEEKS 500-10,000 3-4 WEEKS 1,000-50,000 4-5 WEEKS 10,000-100,000 5-6 WEEKS 15,000-200,000 6-8 WEEKS 10,000-100,000 2-3 [facility] PREG QUANT HCGon 024 HCG QUANTITATIVE 08098 mIU/mL [facility] Comment on above: 5-50 0.2-1 WEEK 50-500 1-2 WEEKS 100-5,000 2-3 WEEKS 500-10,000 3-4 WEEKS 1,000-50,000 4-5 WEEKS 10,000-100,000 5-6 WEEKS 15,000-200,000 6-8 WEEKS 10,000-100,000 2-[facility] 024 HCG QUANTITATIVE 09906 mIU/mL [facility] Comment on above: 5-50 0.2-1 WEEK 50-500 1-2 WEEKS 100-5,000 2-3 WEEKS 500-10,000 3-4 WEEKS 1,000-50,000 4-5 WEEKS 10,000-100,000 5-6 WEEKS 15,000-200,000 6-8 WEEKS 10,000-100,000 2-3 MONTHS [facility] [place] [facility] [place] URINE CULTUREon 01-20-2024 Bacteria identified Cx Nom [...] F TRIMETH/SULFAMETHOXA ZOLE R >=16/304 F Resistant [facility] Comment on above: Performed By: #### 6 30-4 #### [facility] ([id number]) [address] [place] [address] Basic Metabolic Vasquez w/Rfx A1 Con 12-08-2023 GFR/1.73 sq M.predicted MDRD (S/P/Bld) [Vol rate/Area] mL/min/{1.73_m2} Normal [facility] Comment on above: Performed By: #### E BS LIPID, EMP BMP #### [facility] [address] [place] [address] [facility] Calcium [Mass/volume] in Ser um or PlasmaOrdered By: Janna Escalera on 12-08-2023 Calcium [Mass/Vol] 9.5 mg/dL Normal 8.6-10.3 [facility] Comment on above: Performed By: #### E BS LIPID, EMP BMP #### [facility] [address] [place] [address] [place] Carbon dioxide, total [Moles /volume] in Serum or PlasmaOrdered By: Janna Escalera on 12-08-2023 CO2 [Moles/Vol] 29.1 mmol/L Normal 21.0-31.0 [facility] Comment on above: Performed By: #### E BS LIPID, EMP BMP #### [facility] [address] [place] [address] [place] Chloride [Moles/volume] in S radha or PlasmaOrdered By: Janna Escalera on 12-08-2023 Chloride [Moles/Vol] 105 mmol/L Normal 98-107 [facility] Comment on above: Performed By: #### E BS LIPID, EMP BMP #### [facility] [address] [place] [address] [place] Cholesterol [Mass/volume] in Serum or PlasmaOrdered By: Janna Escalera on 12-08-2023 Cholesterol [Mass/Vol] 163 mg/dL Normal 140-200 [facility] Comment on above: Chol less than 200 m g/dl low riskChol 201-239 mg/dl borderline riskChol 240 mg/dl and greater high risk Result Comment: Chol less than 200 mg/dl low risk Chol 201-239 mg/dl borderline risk Chol 240 mg/dl and greater high risk Performed By: #### E BS LIPID, EMP BMP #### [facility] [address] [place] [address] [place] Cholesterol in LDL Calc [Mas s/Vol]Ordered By: Janna Escalera on 12-08-2023 Cholesterol in LDL [Mass/Vol] 84 mg/dL 0-100 [facility] Comment on above: LDL ATP III CLASSIFI CATIONLDL less than 100 mg/dL OptimalLDL 100-129 mg/dL Near or above optimalLDL 130-159 mg/dL Borderline highLDL 160-189 mg/dL HighLDL greater than 189 mg/dL Very high Cholesterol in VLDL Calc [Ma ss/Vol]Ordered By: Janna Escalera on 12-08-2023 Cholesterol in VLDL [Mass/Vol] 17 mg/dL [facility] Creatinine [Mass/volume] in Serum or PlasmaOrdered By: Janna sEcalera on 12-08-2023 Creatinine [Mass/Vol] 0.69 mg/dL Normal 0.60-1.20 [facility] Comment on above: Performed By: #### E BS LIPID, EMP BMP #### [facility] [address] Glucose [Mass/volume] in Ser um or PlasmaOrdered By: Janna Escalera on 12-08-2023 Glucose [Mass/Vol] 83 mg/dL Normal 70-100 [facility] Comment on above: Performed By: #### E BS LIPID, EMP BMP #### [facility] [address] Lipid Profileon 12-08-2023 LDL Cholesterol,Calculated 84 mg/dL Normal 0-100 [facility] Comment on above: Result Comment: LDL ATP III CLASSIFICATION LDL less than 100 mg/dL Optimal LDL 100-129 mg/dL Near or above optimal LDL 130-159 mg/dL Borderline high LDL 160-189 mg/dL High LDL greater than 189 mg/dL Very high Performed By: #### E BS LIPID, EMP BMP #### [facility] [address] Triglyceride w/Reflex 87 mg/dL Normal 0-149 [facility] Comment on above: Result Comment: TRIG ATP III CLASSIFICATION TRIG less than 150 mg/dL Normal TRIG 150-199 mg/dL Borderline high TRIG 200-500 mg/dL High TRIG greater than 500 mg/dL Very high Standard traceable to the Center for Disease Conrtrol and Prevention (CDC) test method. Performed By: #### E BS LIPID, EMP BMP #### [facility] [address] [id number] [facility] VLDL CHOLESTEROL 17 mg/dL Normal [facility] Comment on above: Performed By: #### E BS LIPID, EMP BMP #### [facility] [address] No Panel InformationOrdered By: Janna Escalera on 12-08-2023 Estimated GFR (CKD-EPI) > 60.0 mL/Min [facility] Creatinine Clearance (Chem N/A [facility] Potassium [Moles/volume] in Serum or PlasmaOrdered By: Janna Escalera on 12-08-2023 Potassium [Moles/Vol] 3.6 mmol/L Normal 3.5-5.1 [facility] Comment on above: Performed By: #### E BS LIPID, EMP BMP #### [address] Serum or plasma anion gap de terminationOrdered By: Janna Escalera on 12-08-2023 Anion gap [Moles/Vol] 10.5 mmol/L Normal 6.0-15.0 [facility] Comment on above: Performed By: #### E BS LIPID, EMP BMP #### [address] Serum or plasma high density lipoprotein (HDL) cholesterol measurementOrdered By: Janna Escalera on 12-08-2023 Cholesterol in HDL [Mass/Vol] 62 mg/dL Normal 23-92 [facility] Comment on above: HDL CHOL ATP-III CLA SSIFICATION Cardiovascular RiskHDL > or equal to 60 mg/dL LOWHDL < 40 mg/dL HIGH Result Comment: HDL CHOL ATP-III CLASSIFICATION Cardiovascular Risk HDL > or equal to 60 mg/dL LOW HDL < 40 mg/dL HIGH Performed By: #### E BS LIPID, EMP BMP #### [facility] [address] [place] [address] Serum or plasma total choles terol/high density lipoprotein (HDL) cholesterol mass ratOrdered By: Janna Escalera on 12-08-2023 Cholesterol.total/Chol esterol in HDL [Mass ratio] 2.6 {ratio} Normal <5.0 [facility] Comment on above: Result Comment: PERF ORMED BY: [place] [address] PATHOLOGIST ROOFER HELPER [employer] CHERYL GEORGE M.D. Performed By: #### E BS LIPID, EMP BMP #### [address] Sodium [Moles/volume] in Ser um or PlasmaOrdered By: Janna Escalera on 12-08-2023 Sodium [Moles/Vol] 141 mmol/L Normal 136-145 [facility] Comment on above: Performed By: #### E BS LIPID, EMP BMP #### [facility] [address] [place] [address] [facility] Triglyceride [Mass/volume] i n Serum or PlasmaOrdered By: Janna Escalera on 12-08-2023 Triglyceride [Mass/Vol] 87 mg/dL 0-149 [facility] Comment on above: TRIG ATP III CLASSIF ICATIONTRIG less than 150 mg/dL NormalTRIG 150-199 mg/dL Borderline highTRIG 200-500 mg/dL High TRIG greater than 500 mg/dL Very highStandard traceable to the Center for Disease Conrtrol and Prevention (CDC) test method. Urea nitrogen [Mass/volume] in Serum or PlasmaOrdered By: Janna Escalera on 12-08-2023 Urea nitrogen [Mass/Vol] 14 mg/dL Normal 7-25 [facility] Comment on above: Performed By: #### E BS LIPID, EMP BMP #### [facility] [address] [id number] [facility] MRI HIP RIGHT W CONTRASTon 1 [...] Tucker Ashby MD 06/08/22 Final result Normal [facility] IR INJ ARTHROGRAM HIP RIGHTo n [...] 120.55 uGy cm 2 Views: 3 PROCEDURE: FRESH FOODS TECHNICIAN: Elijah Houston This procedure was performed by [...] Eric Rae MD 06/05/22 Final result Normal [facility] Successful fluoroscopic-guided right hip arthrogram. Patient was transferred to MRI for further imaging. [facility] EXAMINATION: FLUOROSCOPIC GUIDED RIGHT HIP ARTHROGRAM, 06/05/2022 2:50 pm COMPARISON: None. HISTORY: ORDERING SYSTEM PROVIDED HISTORY: Tear of right acetabular labrum, initial encounter TECHNOLOGIST PROVIDED HISTORY: r/o R hip labral tear. MRI ordered Is the patient ?->No FLUOROSCOPY DOSE AND TYPE OR TIME AND EXPOSURES: Fluoro time 0.3 minutes DAP 120.55 uGy cm 2 Views: 3 PROCEDURE: FRESH FOODS TECHNICIAN: Elijah Houston This procedure was performed by [...] and left the Department in stable condition. [facility] Eric Dukes MD [...] 120.55 uGy cm 2 Views: 3 PROCEDURE: FRESH FOODS TECHNICIAN: Elijah Houston This procedure was performed by [...] was transferred to MRI for further imaging. [facility] Phone: Radiology Study observation (narrative) [facility] Phone: IR INJ ARTHROGRAM HIP RIGHTO rdered By: Eric Dukes on 06-05-2022 [employer] Phone: 2018 Novel Coronavirus (CoVI D-19), SAMIR LCon 02-20-2021 SARS-CoV-2 (COVID-19) RNA SAMIR+probe Ql (Unsp spec) Not detected Invalid Interpretation Code Not Detected [facility] Comment on above: Result Comment: This nucleic acid amplification test was developed and its performance characteristics determined by [employer]. Nucleic acid amplification tests include RT- PCR [...] detected) result in this assay. Performed At: [facility] [id number] Maritza Uribe PhD Ph:[phone] Performed By: #### 6 [id number] #### [facility] (DEFAULT) [address] [place] [address] Consent Formson 02-19-2021 Consent Forms [id number] [facility] [id number] [facility] Lab - Toxicology Resultson 0 02-19-2021 Lab - Toxicology Results [id number] #1.00OTGTIFF [facility] Outside Recordson 02-19-2021 Outside Records [id number] #1.00OTGTIFF [facility] Triage Industrialon 02-20-20 21 Drug Screen Complete Collected Normal [facility] Comment on above: Performed By: #### 1 [id number] #### [facility] (DEFAULT) [address] [place] [address] ED Clinical Summaryon 2020 ED Clinical Summary [facility] ? Urgent Care [address] [place] [address] Clinical Summary PERSON INFORMATION Name: MADDIE RAMAN Age: 25 Years Sex: FEMALE : 1995 MRN: Acct#: Visit Reason: Medical screening exam; [facility] Arrival: 02/18/2021 13:01:04 Discharge: 02/18/2021 14:21:00 LOS: 000 01:20 Check In: 02/18/2021 13:01:04 Checkout: 02/18/2021 14:21:00 Address: [address] [facility] [address] PCP: Provider, Unlisted PROVIDER INFORMATION Provider Role [...] verbalizes understanding of instructions given Comment: Normal [facility] ED Patient Summaryon 021 ED Patient Summary [facility] ? Urgent Care [address] [place] [address] PATIENT DISCHARGE INSTRUCTIONS Patient Information Name: MADDIE RAMAN Age: 25 Years Date of : 1995 Reason For Visit: Medical screening exam; [facility] Arrival Time: 02/18/2021 13:01:04 Primary Care Physician: Provider, Unlisted Attending Physician: Adam Moncada PA-C Comment: Patient Education Medication Information: The exam and treatment you received today in the [facility] Emergency Department were for an urgent problem and are not intended as complete care. It is important for you to follow up with a doctor, nurse practitioner, or physician?s construction management assistant for ongoing care. If your symptoms [...] so we can reach you if necessary. [facility] has provided you with a complete list of medications post discharge. 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 wage adjuster/provider of your visit and for further instruction on these medications. Any specific questions regarding your chronic medications and dosages should be discussed with your primary care physician(s) and/or pharmacist. Visit Information Visit Diagnosis: Diagnoses This Visit Medical screening exam ([id number]) If you received any narcotics, sedation, or [...] Reason for Visit: Patient arrives to for [place] physical Allergies: Substance Reaction Symptoms Type Comments [...] Control and Prevention February [address] [facility] Urgent Care Note- Provideron 02-18-2021 Urgent Care Note- Provider Patient: MADDIE RAMAN Age: 25 years Sex: FEMALE : 1995 Associated Diagnoses: None Author: Adam Moncada PA-C Basic Information Additional information: Chief Complaint from Nursing Triage Note : Chief Complaint 02/18/2021 13:34 EDT Chief Complaint Patient arrives to for [place] physical . History of Present Illness Patient presents for a pre-employment physical. She is cleared for work. Exam is normal. See scanned document. PSYCHIATRIC: Mood and affect appropriate. Health Status Allergies: Allergic Reactions (Selected) No known allergies. Past Medical/ Family/ Social History Medical history: No active or resolved past medical history items have been selected or recorded.. Surgical history: Cholecystectomy ([id number]). Hip replacement ([id number]). delivery ([id number]). Cardiac ablation system ([id number]).. Family history: No family history items have [...] Oxygen Therapy Room air . [facility] [place] 021 Urgent Care Record [facility] ? Urgent Care [address] [place] [address] PATIENT DISCHARGE INSTRUCTIONS Patient Information Name: MADDIE RAMAN Age: 25 Years Date of : 1995 Reason For Visit: Medical screening exam; [facility] Arrival Time: 02/18/2021 13:01:04 Primary Care Physician: Provider, Unlisted Attending Physician: Adam Moncada PA-C Comment: Visit Diagnosis: Diagnoses This Visit Medical screening exam ([id number]) If you received any narcotics, sedation, or [...] and treatment you received today in the [facility] Urgent Care were for an urgent problem and are not intended as complete care. It is important for you to follow up with a doctor, nurse practitioner, or physician?s construction management assistant for ongoing care. If your symptoms [...] so we can reach you if necessary. [facility] has provided you with a complete list of medications post discharge. 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 wage adjuster/provider of your visit and for further instruction [...] Disease Control and Prevention February 2014 Normal [facility] PROGESTERONEon 05-25-2020 Progesterone 3.3 ng/mL Normal [facility] Comment on above: Result Comment: Foll icular phase 0.1 - 0.9 Luteal phase 1.8 - 23.9 Ovulation phase 0.1 - 12.0 First trimester 11.0 - 44.3 Second trimester 25.4 - 83.3 Third trimester 58.7 - 214.0 Postmenopausal 0.0 - 0.1 Performed By: #### P ROSA #### [facility] [address] [place], [place] [address] Sebastian Ordoñez Hgb/Hcton 02-22-2019 Hematocrit (Bld) [Volume fraction] 28.7 % Low 36-46 [facility] Comment on above: Performed By: #### H H #### [facility] [address] [place] [address] Machine Set Up Operator [employer]: Remy Haq DO Hemoglobin (Bld) [Mass/Vol] 9.4 g/dL Low 12.0-16.0 [facility] Comment on above: Performed By: #### H H #### [facility] [address] [place] [address] Machine Set Up Operator [employer]: Remy Haq DO Basic Metabolic Profon 02-20 (cont.) Normal [facility] Comment on above: Result Comment: Aver age GFR for 20-29 years old: 116 mL/min/1.73sq m Chronic Kidney Disease: <60 mL/min/1.73sq m Kidney failure: <15 mL/min/1.73sq m eGFR calculated using average adult body mass. Additional eGFR calculator available at: http://www.h[employer]MYway.com/multiple_crcl_2012.htm Performed By: #### Joy YUN, BMP #### [facility] [place] [address] Machine Set Up Operator [employer]: Remy Haq DO Anion gap [Moles/Vol] 13 mmol/L Normal 9-17 [facility] Comment on above: Performed By: #### Joy YUN, BMP #### [facility] [place] [address] Machine Set Up Operator [employer]: Remy Haq DO Calcium [Mass/Vol] 8.8 mg/dL Normal 8.6-10.4 [facility] Comment on above: Performed By: #### Joy YUN, BMP #### [facility] [address] [facility] [place] [address] Machine Set Up Operator [employer]: Remy Haq DO Chloride [Moles/Vol] 103 mmol/L Normal 98-107 [facility] Comment on above: Performed By: #### Joy YUN, BMP #### [facility] [address] [facility] [place] [address] Machine Set Up Operator [employer]: Fanelly, Remy, DO CO2 [Moles/Vol] 25 mmol/L Normal 20-31 [facility] Comment on above: Performed By: #### C BC, BMP #### [facility] [address] [place] [address] Machine Set Up Operator [employer]: Remy Haq DO Creatinine [Mass/Vol] 0.72 mg/dL Normal 0.50-0.90 [facility] Comment on above: Performed By: #### C BC, BMP #### [facility] [address] [place] [address] Machine Set Up Operator [employer]: Remy Haq, DO GFR, Amer >60 Normal >60 [facility] Comment on above: Performed By: #### C BC, BMP #### [facility] [address] [place] [address] Machine Set Up Operator [employer]: Remy Haq, DO GFR,non Amer >60 Normal >60 [facility] Comment on above: Performed By: #### C BC, BMP #### [facility] [address] [place] [address] Machine Set Up Operator [employer]: Remy Haq DO Glucose [Mass/Vol] 96 mg/dL Normal 70-99 [facility] Comment on above: Performed By: #### C BC, BMP #### [facility] [place] [address] Machine Set Up Operator [employer]: Remy Haq DO Potassium [Moles/Vol] 4.0 mmol/L Normal 3.7-5.3 [facility] Comment on above: Performed By: #### C BC, BMP #### [facility] [address] [place] [address] Machine Set Up Operator [employer]s: Remy Haq DO Sodium [Moles/Vol] 141 mmol/L Normal 135-144 [facility] Comment on above: Performed By: #### C BC, BMP #### [facility] [address] [facility] [place] [address] Machine Set Up Operator [employer] Goods: Remy Haq DO Urea nitrogen [Mass/Vol] 10 mg/dL Normal 6-20 [facility] Comment on above: Performed By: #### C BC, BMP #### [facility] [address] [facility] [place] [address] Machine Set Up Operator [employer]: Remy Haq DO BUN/CRE Ratio NOT REPORTED Normal -20 [facility] Comment on above: Performed By: #### C BC, BMP #### [facility] [address] [facility] [place] [address] Machine Set Up Operator [employer]: Remy Haq DO Staging: NOT REPORTED Normal [facility] Comment on above: Performed By: #### C JAMA, BMP #### [facility] [place] [address] Machine Set Up Operator [employer]: Remy Haq DO CBCon 02-20-2019 Erythrocyte distribution width (RBC) [Ratio] 16.5 % High 11.5-14.9 [facility] Comment on above: Performed By: #### C JAMA, BMP #### [facility] [place] [address] Machine Set Up Operator [employer]: Remy Haq DO Hematocrit (Bld) [Volume fraction] 25.9 % Low 36-46 [facility] Comment on above: Performed By: #### C BC, BMP #### [facility] [place] [address] Machine Set Up Operator [employer]: Remy Haq DO Hemoglobin (Bld) [Mass/Vol] 8.6 g/dL Low 12.0-16.0 [facility] Comment on above: Performed By: #### C BC, BMP #### [facility] [address] [facility] [place] [address] Machine Set Up Operator [employer]: Remy Haq DO MCH (RBC) [Entitic mass] 28.2 pg Normal 26-34 [facility] Comment on above: Performed By: #### Joy YUN, BMP #### [facility] [place] [address] Machine Set Up Operator [employer]: Remy Haq DO MCHC (RBC) [Mass/Vol] 33.0 g/dL Normal 31-37 [facility] Comment on above: Performed By: #### Joy YUN, BMP #### [facility] [address] [place] [address] Machine Set Up Operator [employer]: Remy Haq DO MCV (RBC) [Entitic vol] 85.4 fL Normal 80-100 [facility] Comment on above: Performed By: #### Joy YUN, BMP #### [facility] [address] [place] [address] Machine Set Up Operator [employer]: Remy Haq DO Platelet mean volume (Bld) [Entitic vol] 6.7 fL Normal 6.0-12.0 [facility] Comment on above: Performed By: #### Joy YUN, BMP #### [facility] [address] [place] [address] Machine Set Up Operator [employer]: Remy Haq DO Platelets (Bld) [#/Vol] 419 10*3/uL Normal 150-450 [facility] Comment on above: Performed By: #### Joy YUN, BMP #### [facility] [address] [place] [address] Machine Set Up Operator [employer]: Remy Haq DO RBC (Bld) [#/Vol] 3.03 10*6/uL Low 4.0-5.2 [facility] Comment on above: Performed By: #### Joy YUN, BMP #### [facility] [address] [place] [address] Machine Set Up Operator [employer] Goods: Remy Haq DO WBC (Bld) [#/Vol] 6.3 10*3/uL Normal 3.5-11.0 [facility] Comment on above: Performed By: #### C BC, BMP #### [facility] [address] [place] [address] Machine Set Up Operator [employer]s: Remy Haq DO NRBC Automated NOT REPORTED Normal [facility] Comment on above: Performed By: #### C BC, BMP #### [facility] [address] [place] [address] Machine Set Up Operator [employer]: Remy Haq DO Hgb/Hcton 02-20-2019 Hematocrit (Bld) [Volume fraction] 29.6 % Low 36-46 [facility] Comment on above: Performed By: #### H H #### [facility] [address] [facility] [place] [address] Machine Set Up Operator Paper Goods: Remy Haq DO Hemoglobin (Bld) [Mass/Vol] 9.7 g/dL Low 12.0-16.0 [facility] Comment on above: Performed By: #### H H #### [facility] [address] [facility] [place] [address] Machine Set Up Operator [employer]: Remy Haq DO CBCon 02-19-2019 Erythrocyte distribution width (RBC) [Ratio] 16.6 % High 11.5-14.9 [facility] Comment on above: Performed By: #### C BC #### [facility] [place] [address] Machine Set Up Operator [employer]: Remy Haq DO Hematocrit (Bld) [Volume fraction] 23.2 % Low 36-46 [facility] Comment on above: Performed By: #### C BC #### [facility] [address] [place] [address] Machine Set Up Operator [employer]s: Remy Haq DO Hemoglobin (Bld) [Mass/Vol] 7.6 g/dL Low 12.0-16.0 [facility] Comment on above: Performed By: #### C BC #### [facility] [address] [place] [address] Machine Set Up Operator [employer]s: Remy Haq DO MCH (RBC) [Entitic mass] 27.8 pg Normal 26-34 [facility] Comment on above: Performed By: #### C BC #### [facility] [place] [address] Machine Set Up Operator [employer] Goods: Remy Haq DO MCHC (RBC) [Mass/Vol] 32.7 g/dL Normal 31-37 [facility] Comment on above: Performed By: #### C BC #### [facility] [place] [address] Machine Set Up Operator [employer]s: Remy Haq DO MCV (RBC) [Entitic vol] 85.0 fL Normal 80-100 [facility] Comment on above: Performed By: #### C BC #### [facility] [place] [address] Machine Set Up Operator [employer]: Remy Haq DO Platelet mean volume (Bld) [Entitic vol] 6.5 fL Normal 6.0-12.0 [facility] Comment on above: Performed By: #### C BC #### [facility] [place] [address] Machine Set Up Operator [employer]: Remy Haq DO Platelets (Bld) [#/Vol] 444 10*3/uL Normal 150-450 [facility] Comment on above: Performed By: #### C BC #### [facility] [place] [address] Machine Set Up Operator [employer]: Remy Haq DO RBC (Bld) [#/Vol] 2.73 10*6/uL Low 4.0-5.2 [facility] Comment on above: Performed By: #### C BC #### [facility] [address] [place] [address] Machine Set Up Operator [employer] Goods: Remy Haq DO WBC (Bld) [#/Vol] 5.1 10*3/uL Normal 3.5-11.0 [facility] Comment on above: Performed By: #### C BC #### [facility] [address] [place] [address] Machine Set Up Operator [employer]: Remy Haq DO NRBC Automated NOT REPORTED Normal [facility] Comment on above: Performed By: #### C BC #### [facility] [address] [place] [address] Machine Set Up Operator [employer]: Remy Haq DO Type + Crossmatchon 02-20-20 19 Type + Crossmatch Sample Expiration 02/22/2019 Arm Band Number [id number] ABO/Rh(D) A POSITIVE Antibody Screen NEGATIVE Blood Bank Comment Pt's ABRh confirmed as A POS:402 Results Verified BLANCHE, Polyspecific NEGATIVE BLANCHE, Anti-IgG [place] Serum NEGATIVE Antibody Ident Anti-[place](A) Present Unit Number [id number] Blood Component Type Leukocyte Reduced Red Cell Unit Division 00 Status of Unit TRANSFUSED Transfusion Status OK TO TRANSFUSE Crossmatch Result COMPATIBLE [facility] Comment on above: Performed By: #### T YX #### [facility] [address] [place] [address] Machine Set Up Operator [employer]: Remy Haq DO Basic Metab w/rfx MGon 02-16 (cont.) Normal [facility] Comment on above: Result Comment: Aver age GFR for 20-29 years old: 116 mL/min/1.73sq m Chronic Kidney Disease: <60 mL/min/1.73sq m Kidney failure: <15 mL/min/1.73sq m eGFR calculated using average adult body mass. Additional eGFR calculator available at: http://www.[employer].com/multiple_crcl_2012.htm Performed By: #### B MPX, CBC #### [facility] [address] [place] [address] Machine Set Up Operator [employer]: Remy Haq DO Anion gap [Moles/Vol] 11 mmol/L Normal 9-17 [facility] Comment on above: Performed By: #### B MPX, CBC #### [facility] [address] [facility] [place] [address] Machine Set Up Operator [employer] Goods: Remy Haq DO Calcium [Mass/Vol] 8.6 mg/dL Normal 8.6-10.4 [facility] Comment on above: Performed By: #### B MPX, CBC #### [facility] [address] [facility] [place] [address] Machine Set Up Operator Paper Goods: Remy Haq DO Chloride [Moles/Vol] 100 mmol/L Normal 98-107 [facility] Comment on above: Performed By: #### B MPX, CBC #### [facility] [facility] [place] [address] Machine Set Up Operator [employer] Goods: Remy Haq DO CO2 [Moles/Vol] 26 mmol/L Normal 20-31 [facility] Comment on above: Performed By: #### B MPX, CBC #### [facility] [place] [address] Machine Set Up Operator [employer] Goods: Remy Haq DO Creatinine [Mass/Vol] 0.62 mg/dL Normal 0.50-0.90 [facility] Comment on above: Performed By: #### B MPX, CBC #### [facility] [address] [facility] [place] [address] Machine Set Up Operator Paper Goods: Remy Haq DO GFR, Amer >60 Normal >60 [facility] Comment on above: Performed By: #### B MPX, CBC #### [facility] [address] [place] [address] Machine Set Up Operator Paper Goods: eRmy Haq DO GFR,non Amer >60 Normal >60 [facility] Comment on above: Performed By: #### B MPX, CBC #### [facility] [address] [place] [address] Machine Set Up Operator [employer] Goods: Remy Haq DO Glucose [Mass/Vol] 95 mg/dL Normal 70-99 [facility] Comment on above: Performed By: #### B MPX, CBC #### [facility] [address] [place] [address] Machine Set Up Operator Paper Goods: Remy Haq DO Potassium [Moles/Vol] 4.2 mmol/L Normal 3.7-5.3 [facility] Comment on above: Performed By: #### B MPX, CBC #### [facility] [address] [place] [address] Machine Set Up Operator [employer] Goods: Remy Haq DO Sodium [Moles/Vol] 137 mmol/L Normal 135-144 [facility] Comment on above: Performed By: #### B MPX, CBC #### [facility] [address] [place] [address] Machine Set Up Operator [employer] Goods: Remy Haq DO Urea nitrogen [Mass/Vol] 11 mg/dL Normal 6-20 [facility] Comment on above: Performed By: #### B MPX, CBC #### [facility] [address] [place] [address] Machine Set Up Operator [employer] Goods: Remy Haq DO BUN/CRE Ratio NOT REPORTED Normal 9-20 [facility] Comment on above: Performed By: #### B MPX, CBC #### [facility] [address] [place] [address] Machine Set Up Operator [employer] Goods: Remy Haq DO Staging: NOT REPORTED Normal [facility] Comment on above: Performed By: #### B MPX, CBC #### [facility] [place] [address] Machine Set Up Operator Paper Goods: Remy Haq DO CBCon 02-16-2019 Erythrocyte distribution width (RBC) [Ratio] 16.3 % High 11.5-14.9 [facility] Comment on above: Performed By: #### B MPX, CBC #### [facility] [place] [address] Machine Set Up Operator Paper Goods: Remy Haq DO Hematocrit (Bld) [Volume fraction] 22.4 % Low 36-46 [facility] Comment on above: Performed By: #### B MPX, CBC #### [facility] [address] [place] [address] Machine Set Up Operator Paper Goods: Remy Haq DO Hemoglobin (Bld) [Mass/Vol] 7.6 g/dL Low 12.0-16.0 [facility] Comment on above: Performed By: #### B MPX, CBC #### [facility] [address] [place] [address] Machine Set Up Operator Paper Goods: Remy Haq DO MCH (RBC) [Entitic mass] 29.4 pg Normal 26-34 [facility] Comment on above: Performed By: #### B MPX, CBC #### [facility] [address] [place] [address] Machine Set Up Operator Paper Goods: Remy Haq DO MCHC (RBC) [Mass/Vol] 33.8 g/dL Normal 31-37 [facility] Comment on above: Performed By: #### B MPX, CBC #### [facility] [address] [place] [address] Machine Set Up Operator Paper Goods: Remy Haq DO MCV (RBC) [Entitic vol] 87.1 fL Normal 80-100 [facility] Comment on above: Performed By: #### B MPX, CBC #### [facility] [address] [place] [address] Machine Set Up Operator Paper Goods: Remy Haq DO Platelet mean volume (Bld) [Entitic vol] 6.4 fL Normal 6.0-12.0 [facility] Comment on above: Performed By: #### B MPX, CBC #### [facility] [place] [address] Machine Set Up Operator Paper Goods: Remy Haq DO Platelets (Bld) [#/Vol] 503 10*3/uL High 150-450 [facility] Comment on above: Performed By: #### B MPX, CBC #### [facility] [place] [address] Machine Set Up Operator Paper Goods: Remy Haq DO RBC (Bld) [#/Vol] 2.57 10*6/uL Low 4.0-5.2 [facility] Comment on above: Performed By: #### B MPX, CBC #### [facility] [address] [place] [address] Machine Set Up Operator [employer] Goods: Remy Haq DO WBC (Bld) [#/Vol] 7.5 10*3/uL Normal 3.5-11.0 [facility] Comment on above: Performed By: #### B MPX, CBC #### [facility] [place] [address] Machine Set Up Operator [employer] Goods: Remy Haq DO NRBC Automated NOT REPORTED Normal [facility] Comment on above: Performed By: #### B MPX, CBC #### [facility] [address] [place] [address] Machine Set Up Operator [employer] Goods: Remy Haq DO Basic Metabolic Panel w/ Ref savanah to MGon 02-15-2019 Anion gap [Moles/Vol] 14 mmol/L 9 - 17 mmol/L [place] Bun/Cre Ratio NOT REPORTED [place] Calcium [Mass/Vol] 8.4 mg/dL Low 8.6 - 10. 4 mg/dL [place] Chloride [Moles/Vol] 102 mmol/L 98 - 10 7 mmol/L [place] CO2 [Moles/Vol] 24 mmol/L 20 - 31 mmol/L [place] Creatinine [Mass/Vol] 0.57 mg/dL 0.5 - 0.9 mg/dL [place] GFR >60 >60 mL/min [place] GFR Non- >60 >60 mL/min [place] GFR/1.73 sq M predicted among non-blacks MDRD (S/P/Bld) [Vol rate/Area] [place] Comment on above: Average GFR for 20-2 9 years old: 116 mL/min/1.73sq m Chronic Kidney Disease: <60 mL/min/1.73sq m Kidney failure: <15 mL/min/1.73sq m eGFR calculated using average adult body mass. Additional eGFR calculator available at: http://www.[employer].2Checkout/multiple_crcl_2012.htm GFR/1.73 sq M predicted among non-blacks MDRD (S/P/Bld) [Vol rate/Area] NOT REPORTED [place] Glucose [Mass/Vol] 106 mg/dL High 70 - 99 mg/dL [place] Interpretation and review of laboratory results Abnormal [place] Potassium [Moles/Vol] 4.0 mmol/L 3.7 - 5.3 mmol/L [place] Sodium [Moles/Vol] 140 mmol/L 135 - 144 mmol/L [place] Urea nitrogen [Mass/Vol] 11 mg/dL 6 - 20 mg/dL [place] CBC WITH AUTO DIFFERENTIALon 02-15-2019 Basophils (Bld) [#/Vol] 0.06 10*3/uL [place] Basophils/100 WBC (Bld) 1 % 0 - 2 % [place] Differential Type NOT REPORTED [place] Eosinophils (Bld) [#/Vol] 0.33 10*3/uL [place] Eosinophils/100 WBC (Bld) 5 % High 1 - 4 % [place] Erythrocyte distribution width (RBC) [Ratio] 15.3 % High 11.8 - 14.4 % [place] Hematocrit (Bld) [Volume fraction] 24.9 % Low 36.3 - 47.1 % [place] Hemoglobin (Bld) [Mass/Vol] 7.5 g/dL Low 11.9 - 15.1 g/dL [place] Immature granulocytes (Bld) [#/Vol] 1 % High 0 [place] Immature granulocytes (Bld) [#/Vol] 0.10 10*3/uL [place] Interpretation and review of laboratory results Abnormal [place] Lymphocytes (Bld) [#/Vol] 1.93 10*3/uL [place] Lymphocytes/100 WBC (Bld) 27 % 24 - 43 % [place] MCH (RBC) [Entitic mass] 28.2 pg 25.2 - 33.5 pg [place] MCHC (RBC) [Mass/Vol] 30.1 g/dL 28.4 - 34.8 g/dL [place] MCV (RBC) [Entitic vol] 93.6 fL 82.6 - 102.9 fL [place] Monocytes (Bld) [#/Vol] 0.60 10*3/uL [place] Monocytes/100 WBC (Bld) 8 % 3 - 12 % [place] Platelet mean volume (Bld) [Entitic vol] 9.0 fL 8.1 - 13.5 fL [place] Platelets (Bld) [#/Vol] 458 10*3/uL High [place] Platelets (Bld) [#/Vol] NOT REPORTED [place] RBC (Bld) [#/Vol] 2.66 10*6/uL Low 3.95 - 5.1 1 m/uL [place] RBC morphology finding Nom (Bld) ANISOCYTOSIS PRESENT [place] Segmented neutrophils/100 WBC (Bld) 58 % 36 - 65 % [place] Segs Absolute 4.19 [place] WBC (Bld) [#/Vol] 7.2 10*3/uL [place] WBC (Bld) [#/Vol] 0.0 10*3/uL 0.0 per 10 0 WBC [place] WBC Morphology NOT REPORTED [place] Basic Metabolic Panel w/ Ref savanah to MGon 02-13-2019 Anion gap [Moles/Vol] 13 mmol/L 9 - 17 mmol/L [place] Bun/Cre Ratio NOT REPORTED [place] Calcium [Mass/Vol] 8.5 mg/dL Low 8.6 - 10. 4 mg/dL [place] Chloride [Moles/Vol] 105 mmol/L 98 - 10 7 mmol/L [place] CO2 [Moles/Vol] 23 mmol/L 20 - 31 mmol/L [place] Creatinine [Mass/Vol] 0.46 mg/dL Low 0.5 - 0.9 mg/dL [place] GFR >60 >60 mL/min [place] GFR Non- >60 >60 mL/min [place] GFR/1.73 sq M predicted among non-blacks MDRD (S/P/Bld) [Vol rate/Area] NOT REPORTED [place] GFR/1.73 sq M predicted among non-blacks MDRD (S/P/Bld) [Vol rate/Area] [place] Comment on above: Average GFR for 20-2 9 years old: 116 mL/min/1.73sq m Chronic Kidney Disease: <60 mL/min/1.73sq m Kidney failure: <15 mL/min/1.73sq m eGFR calculated using average adult body mass. Additional eGFR calculator available at: http://www.hiredMYway.com/multiple_crcl_2012.htm Glucose [Mass/Vol] 86 mg/dL 70 - 99 mg/dL [place] Interpretation and review of laboratory results Abnormal [place] Potassium [Moles/Vol] 4.3 mmol/L 3.7 - 5.3 mmol/L [place] Sodium [Moles/Vol] 141 mmol/L 135 - 144 mmol/L [place] Urea nitrogen [Mass/Vol] 9 mg/dL 6 - 20 mg/dL [place] CBC WITH AUTO DIFFERENTIALon 02-13-2019 Basophils (Bld) [#/Vol] 0.06 10*3/uL [place] Basophils/100 WBC (Bld) 1 % 0 - 2 % [place] Differential Type NOT REPORTED [place] Eosinophils (Bld) [#/Vol] 0.40 10*3/uL [place] Eosinophils/100 WBC (Bld) 5 % High 1 - 4 % [place] Erythrocyte distribution width (RBC) [Ratio] 14.8 % High 11.8 - 14.4 % [place] Hematocrit (Bld) [Volume fraction] 25.0 % Low 36.3 - 47.1 % [place] Hemoglobin (Bld) [Mass/Vol] 7.4 g/dL Low 11.9 - 15.1 g/dL [place] Immature granulocytes (Bld) [#/Vol] 2 % High 0 [place] Immature granulocytes (Bld) [#/Vol] 0.14 10*3/uL [place] Interpretation and review of laboratory results Abnormal [place] Lymphocytes (Bld) [#/Vol] 2.18 10*3/uL [place] Lymphocytes/100 WBC (Bld) 25 % 24 - 43 % [place] MCH (RBC) [Entitic mass] 27.1 pg 25.2 - 33.5 pg [place] MCHC (RBC) [Mass/Vol] 29.6 g/dL 28.4 - 34.8 g/dL [place] MCV (RBC) [Entitic vol] 91.6 fL 82.6 - 102.9 fL [place] Monocytes (Bld) [#/Vol] 0.66 10*3/uL [place] Monocytes/100 WBC (Bld) 8 % 3 - 12 % [place] Platelet mean volume (Bld) [Entitic vol] 8.9 fL 8.1 - 13.5 fL [place] Platelets (Bld) [#/Vol] 440 10*3/uL [place] Platelets (Bld) [#/Vol] NOT REPORTED [place] RBC (Bld) [#/Vol] 2.73 10*6/uL Low 3.95 - 5.1 1 m/uL [place] RBC morphology finding Nom (Bld) ANISOCYTOSIS PRESENT [place] Segmented neutrophils/100 WBC (Bld) 61 % 36 - 65 % [place] Segs Absolute 5.37 [place] WBC (Bld) [#/Vol] 0.0 10*3/uL 0.0 per 10 0 WBC [place] WBC (Bld) [#/Vol] 8.8 10*3/uL [place] WBC Morphology NOT REPORTED [place] ECHO Complete 2D W Doppler W Coloron 02-13-2019 Transthoracic Echocardiography Report (TTE) Patient Name DANISHA PERKINS Date of Study 02/13/2019 C Date of 1995 Gender Female Age 23 year(s) Race Unknown Room Number 0240 Height: 65 inch, 165.1 cm Corporate ID [id number] Weight: 301 pounds, 136.5 kg # Patient Acct [id number] BSA: 2.35 m^2 BMI: 50.09 kg/m^2 # MR # [id number] Assistant Controller Kaylen Jasso Interpreting Physician Anthony Keating Fellow Referring Nurse Practitioner Interpreting Referring Physician MICHAEL BULLOCK MD Fellow Type of Study TTE procedure:2D Echocardiogram, M-Mode, Doppler, Color Doppler. Procedure Date Date: 02/13/2019 Start: 08:48 AM Study Location: [facility] Technical Quality: Adequate visualization Indications:Irregula r Heart [...] seen. Signature Electronically signed by Anthony Keating([facility] physician) on 02/13/2019 02:00 PM FINDINGS Left [...] velocity:0.17 m/s Lateral Wall E/E':5.8 [facility] [place], [place] Tamir, Mhpn Incoming Cardio Results From [facility] - 02/13/2019 2:01 PM EDT Transthoracic Echocardiography Report (TTE) Patient Name DANISHA PERKINS Date of Study 02/13/2019 C Date of 1995 Gender Female Age 23 year(s) Race Unknown Room Number 0240 Height: 65 inch, 165.1 cm Corporate ID [id number] Weight: 301 pounds, 136.5 kg # Patient Acct [id number] BSA: 2.35 m^2 BMI: 50.09 kg/m^2 # MR # [id number] Assistant Controller Kaylen Jasso Interpreting Physician Anthony Keating Fellow Referring Nurse Practitioner Interpreting Referring Physician MICHAEL BULLOCK MD Fellow Type of Study TTE procedure:2D Echocardiogram, M-Mode, Doppler, Color Doppler. Procedure Date Date: 02/13/2019 Start: 08:48 AM Study Location: [facility] Technical Quality: Adequate visualization Indications:Irregula r Heart [...] Signature - Electronically signed by Anthony Keating([facility] physician) on 02/13/2019 02:00 PM - - [...] velocity:0.17 m/s Lateral Wall E/E':5.8 [facility], [place] EKG 12 Leadon 02-11-2019 Atrial Rate 99 BPM [facility], [place] P Berkley 69 degrees [facility] P-R Interval 136 ms [facility], [place] Q-T Interval 344 ms [facility] QRS Duration 80 ms [facility], [place] QTc Calculation ([place]azett) 441 ms [facility] R Berkley 16 degrees [facility] [place] T Berkley 4 degrees [facility], [place] Ventricular Rate 99 BPM [facility], [place] Tamir, Mhpn Incoming Ekg Results From [facility] - 02/11/2019 11:00 AM EDT Normal sinus rhythm Cannot rule out Anterior infarct , age undetermined Abnormal ECG When compared with ECG of 31-JAN-2019 19:55, No significant change was found [place] Normal sinus rhythm Cannot rule out Anterior infarct , age undetermined Abnormal ECG When compared with ECG of 31-JAN-2019 19:55, No significant change was found [place] HEMOGLOBIN AND HEMATOCRIT, B LOODon 02-11-2019 Hematocrit (Bld) [Volume fraction] 27.0 % Low 36.3 - 47.1 % [place] Hemoglobin (Bld) [Mass/Vol] 8.3 g/dL Low 11.9 - 15.1 g/dL [place] Interpretation and review of laboratory results Abnormal [place] Microscopic Urinalysison Amorphous, UA NOT REPORTED None [place] Bacteria, UA NOT REPORTED None [place], [place] Casts UA [place] Crystals UA NOT REPORTED None /HPF [place] Epithelial Cells UA 0 TO 2 [place] Mucus, UA NOT REPORTED None [place] Other Observations UA NOT REPORTED NOT REQ. M [place] RBC (U) [#/Vol] 5 TO 10 [place], [place] Comment on above: Reference range defi xiomy for non-centrifuged specimen. Renal Epithelial, Urine NOT REPORTED 0 /HPF [place], [place] Trichomonas, UA NOT REPORTED None [place], [place] WBC, UA TOO NUMEROUS TO COUNT [place] Yeast, UA NOT REPORTED None [place], [place] - [place] URINALYSISon 02-11-2019 Bilirubin Urine Negative NEGATIVE [place] Color, UA YELLOW YELLOW [place], [place] Glucose, Ur Negative NEGATIVE [place] Interpretation and review of laboratory results Abnormal [place] Ketones Ql (U) Negative NEGATIVE [place] Leukocyte esterase Test strip Ql (U) LARGE Abnormal NEGATIVE [place] Nitrite, Urine Negative NEGATIVE [place] pH, UA 5.0 [place] Protein (U) [Mass/Vol] Negative NEGATIVE [place], [place] Specific Bryant, UA 1.013 [place] Turbidity UA CLOUDY Abnormal CLEAR [place] Urinalysis Comments NOT REPORTED [place] Urine Hgb MODERATE Abnormal NEGATIVE [place] Urobilinogen, Urine Normal Normal [place] HEMOGLOBIN AND HEMATOCRIT, B LOODon 02-10-2019 Hematocrit (Bld) [Volume fraction] 22.5 % Low 36.3 - 47.1 % [place] Hemoglobin (Bld) [Mass/Vol] 6.8 g/dL Critically low 11.9 - 15.1 g/dL [place] Interpretation and review of laboratory results Abnormal [place] TYPE AND SCREENon 02-10-2019 ABO/Rh Positive [place], [place] Arm Band Number [id number] [place], [place] Blood product type Nom (BPU) Leukocyte Reduced Red Cell [place] Crossmatch Result COMPATIBLE [facility]min [place] Dispense Status TRANSFUSED [place], [place] Expiration Date 02/10/2019 [place] Transfusion Status OK TO TRANSFUSE M [place] Unit Divison 0 [place], [place] Unit Number [id number] [place] CT PELVIS WO CONTRAST Additi onal Contrast? Noneon 02-09-2019 Tamir, pn Incoming Radiant Results From [employer] - 02/09/2019 12:47 PM EDT EXAMINATION: CT [...] extends anterior to the inferior pubic ramus. [facility] [place] EXAMINATION: CT OF THE PELVIS WITHOUT CONTRAST [...] chris edema and small foci of air. [facility] [place] 1. Improved alignment of the right posterior wall acetabular fracture status post ORIF. 2. Small intra-articular right hip loose bodies. 3. The long screw extends anterior to the inferior pubic ramus. [facility] [place] HEMOGLOBIN AND HEMATOCRIT, B [facility] 02-09-2019 Hematocrit (Bld) [Volume fraction] 19.2 % Low 36.3 - 47.1 % [place] Hemoglobin (Bld) [Mass/Vol] 5.9 g/dL Critically low 11.9 - 15.1 g/dL [place] Comment on above: TEST CONFIRMED Interpretation and review of laboratory results Abnormal [place] Hematocrit (Bld) [Volume fraction] 21.2 % Low 36.3 - 47.1 % [place] Hemoglobin (Bld) [Mass/Vol] 6.6 g/dL Critically low 11.9 - 15.1 g/dL [place] Comment on above: TEST CONFIRMED Interpretation and review of laboratory results Abnormal [place] Hematocrit (Bld) [Volume fraction] 23.6 % Low 36.3 - 47.1 % [place] Hemoglobin (Bld) [Mass/Vol] 7.2 g/dL Low 11.9 - 15.1 g/dL [place] Interpretation and review of laboratory results Abnormal [place] CV HGB/HCTon 02-08-2019 Hematocrit (Bld) [Volume fraction] 24.4 % [place] Hemoglobin (Bld) [Mass/Vol] 7.8 g/dL gm/dL [place] POCT urine pregnancyon 02-08 Beta HCG ( test) Ql (U) Negative NEGATIVE [place] Comment on above: Specimens with hCG [...] 02-08-2019 Tamir, Mhpn Incoming Radiant Results From [employer] - 02/08/2019 1:24 PM EDT EXAMINATION: THREE XRAY VIEWS OF THE RIGHT FOOT 02/08/2019 1:12 pm COMPARISON: Right ankle radiographs February 01, 2019 HISTORY: ORDERING SYSTEM PROVIDED HISTORY: Trauma/Fracture TECHNOLOGIST PROVIDED HISTORY: Trauma/Fracture FINDINGS: No fracture or dislocation. IMPRESSION: No acute osseous abnormality [facility] BLAINE KELSEY EXAMINATION: THREE XRAY VIEWS OF THE RIGHT FOOT 02/08/2019 1:12 pm COMPARISON: Right ankle radiographs February 01, 2019 HISTORY: ORDERING SYSTEM PROVIDED HISTORY: Trauma/Fracture TECHNOLOGIST PROVIDED HISTORY: Trauma/Fracture FINDINGS: No fracture or dislocation. [facility] BLAINE KELSEY No acute osseous abnormality [facility] BLAINE KELSEY XR PELVIS (MIN 3 VIEWS)on EXAMINATION: ONE XRAY VIEW OF THE PELVIS 02/08/2019 12:48 pm COMPARISON: 01/31/2019 HISTORY: ORDERING SYSTEM PROVIDED HISTORY: AP,Judets. Post op pacu TECHNOLOGIST PROVIDED HISTORY: AP,Judets. Post op pacu FINDINGS: Status post internal fixation of the right acetabulum. Anatomic alignment. No hardware complications. [facility] BLAINE KELSEY Tamir, Mhpn Incoming Radiant [...] post internal fixation of the right acetabulum [facility] BLAINE KELSEY Anatomic alignment status post internal fixation of the right acetabulum [facility] Mhpn Incoming Radiant Results From [employer] [...] fluoroscopic image of pelvis as described above. [facility] BLAINE KELSEY EXAMINATION: ONE XRAY VIEW OF THE PELVIS 02/08/2019 12:39 pm COMPARISON: January 31, 2019 HISTORY: ORDERING SYSTEM PROVIDED HISTORY: intra op TECHNOLOGIST PROVIDED HISTORY: intra op FINDINGS: Intraoperative fluoroscopic image of pelvis demonstrates ORIF of right acetabular fracture with plate and screws, likely in gross anatomic alignment. A Crawley catheter is in place. [place] Intraoperative fluoroscopic image of pelvis as described above. [place] XR WRIST LEFT (MIN 3 VIEWS)o n 02-08-2019 1. Overlying cast/splint material limits evaluation of fine osseous detail. 2. Anatomic alignment of known transversely oriented nondisplaced distal left radius metaphyseal fracture after reduction. 3. No superimposed acute osseous abnormality identified. 4. Soft tissue swelling about the left wrist/distal left forearm. [place] Tam[place], Mhpn Incoming Radiant Results From [employer] - 02/08/2019 6:06 PM EDT EXAMINATION: 3 [...] swelling about the left wrist/distal left forearm. [place] EXAMINATION: 3 XRAY VIEWS OF THE [...] the left wrist and distal left forearm. [place] BASIC METABOLIC PANELon 08-2 Anion gap [Moles/Vol] 12 mmol/L 9 - 17 mmol/L [place] Bun/Cre Ratio NOT REPORTED [facility] [place] Calcium [Mass/Vol] 8.5 mg/dL Low 8.6 - 10. 4 mg/dL [place] Chloride [Moles/Vol] 102 mmol/L 98 - 10 7 mmol/L [place] CO2 [Moles/Vol] 24 mmol/L 20 - 31 mmol/L [place] Creatinine [Mass/Vol] 0.54 mg/dL 0.5 - 0.9 mg/dL [place] GFR >60 >60 mL/min [place] GFR Non- >60 >60 mL/min [place] GFR/1.73 sq M predicted among non-blacks MDRD (S/P/Bld) [Vol rate/Area] NOT REPORTED [place] GFR/1.73 sq M predicted among non-blacks MDRD (S/P/Bld) [Vol rate/Area] [place] Comment on above: Average GFR for 20-2 9 years old: 116 mL/min/1.73sq m Chronic Kidney Disease: <60 mL/min/1.73sq m Kidney failure: <15 mL/min/1.73sq m eGFR calculated using average adult body mass. Additional eGFR calculator available at: http://www.hiredMYway.com/multiple_crcl_2012.htm Glucose [Mass/Vol] 95 mg/dL 70 - 99 mg/dL [place] Interpretation and review of laboratory results Abnormal [place] Potassium [Moles/Vol] 4.6 mmol/L 3.7 - 5.3 mmol/L [place] Sodium [Moles/Vol] 138 mmol/L 135 - 144 mmol/L [place] Urea nitrogen [Mass/Vol] 14 mg/dL 6 - 20 mg/dL [place] BLOOD BANK SPECIMENon 2018 Blood Bank Specimen NOT REPORTED [place] CBCon 02-07-2019 Erythrocyte distribution width (RBC) [Ratio] 13.5 % 11.8 - 14.4 % [place] Hematocrit (Bld) [Volume fraction] 28.1 % Low 36.3 - 47.1 % [place] Hemoglobin (Bld) [Mass/Vol] 8.4 g/dL Low 11.9 - 15.1 g/dL [place] Interpretation and review of laboratory results Abnormal [place] MCH (RBC) [Entitic mass] 26.7 pg 25.2 - 33.5 pg [place] MCHC (RBC) [Mass/Vol] 29.9 g/dL 28.4 - 34.8 g/dL [place] MCV (RBC) [Entitic vol] 89.2 fL 82.6 - 102.9 fL [place] Platelet mean volume (Bld) [Entitic vol] 8.6 fL 8.1 - 13.5 fL [place] Platelets (Bld) [#/Vol] 555 10*3/uL [place] RBC (Bld) [#/Vol] 3.15 10*6/uL Low 3.95 - 5.1 1 m/uL [place] WBC (Bld) [#/Vol] 0.0 10*3/uL 0.0 per 10 0 WBC [place] WBC (Bld) [#/Vol] 8.0 10*3/uL [place] HEMOGLOBIN AND HEMATOCRIT, B LOODon 02-05-2019 Hematocrit (Bld) [Volume fraction] 28.8 % Low 36.3 - 47.1 % [place] Hemoglobin (Bld) [Mass/Vol] 8.6 g/dL Low 11.9 - 15.1 g/dL [place] Interpretation and review of laboratory results Abnormal [place] Basic Metabolic Panel w/ Ref savanah to MGon 02-04-2019 Anion gap [Moles/Vol] 11 mmol/L 9 - 17 mmol/L [place] Bun/Cre Ratio NOT REPORTED [place] Calcium [Mass/Vol] 8.5 mg/dL Low 8.6 - 10. 4 mg/dL [place] Chloride [Moles/Vol] 108 mmol/L High 98 - 10 7 mmol/L [place] CO2 [Moles/Vol] 23 mmol/L 20 - 31 mmol/L [place] Creatinine [Mass/Vol] 0.52 mg/dL 0.5 - 0.9 mg/dL [place] GFR >60 >60 mL/min [place] GFR Non- >60 >60 mL/min [place] GFR/1.73 sq M predicted among non-blacks MDRD (S/P/Bld) [Vol rate/Area] NOT REPORTED [place] GFR/1.73 sq M predicted among non-blacks MDRD (S/P/Bld) [Vol rate/Area] [place] Comment on above: Average GFR for 20-2 9 years old: 116 mL/min/1.73sq m Chronic Kidney Disease: <60 mL/min/1.73sq m Kidney failure: <15 mL/min/1.73sq m eGFR calculated using average adult body mass. Additional eGFR calculator available at: http://www.hiredMYway.com/multiple_crcl_2012.htm Glucose [Mass/Vol] 93 mg/dL 70 - 99 mg/dL [place] Interpretation and review of laboratory results Abnormal [place] Potassium [Moles/Vol] 4.7 mmol/L 3.7 - 5.3 mmol/L [place] Sodium [Moles/Vol] 142 mmol/L 135 - 144 mmol/L [place] Urea nitrogen [Mass/Vol] 9 mg/dL 6 - 20 mg/dL [place] CBCon 02-04-2019 Erythrocyte distribution width (RBC) [Ratio] 13.6 % 11.8 - 14.4 % [place] Hematocrit (Bld) [Volume fraction] 28.6 % Low 36.3 - 47.1 % [place] Hemoglobin (Bld) [Mass/Vol] 8.4 g/dL Low 11.9 - 15.1 g/dL [place] Interpretation and review of laboratory results Abnormal [place] MCH (RBC) [Entitic mass] 27.5 pg 25.2 - 33.5 pg [place] MCHC (RBC) [Mass/Vol] 29.4 g/dL 28.4 - 34.8 g/dL [place] MCV (RBC) [Entitic vol] 93.5 fL 82.6 - 102.9 fL [place] Platelet mean volume (Bld) [Entitic vol] 9.1 fL 8.1 - 13.5 fL [place] Platelets (Bld) [#/Vol] 622 10*3/uL [place] RBC (Bld) [#/Vol] 3.06 10*6/uL Low 3.95 - 5.1 1 m/uL [place] WBC (Bld) [#/Vol] 8.2 10*3/uL [place] WBC (Bld) [#/Vol] 0.0 10*3/uL 0.0 per 10 0 WBC [place] Basic Metabolic Panelon 01-19 Anion gap [Moles/Vol] 15 mmol/L 9 - 17 mmol/L [place] Bun/Cre Ratio NOT REPORTED [place] Calcium [Mass/Vol] 6.8 mg/dL Low 8.6 - 10. 4 mg/dL [place] Chloride [Moles/Vol] 98 mmol/L 98 - 10 7 mmol/L [place] CO2 [Moles/Vol] 22 mmol/L 20 - 31 mmol/L [place] Creatinine [Mass/Vol] 0.52 mg/dL 0.5 - 0.9 mg/dL [place] GFR >60 >60 mL/min [place] GFR Non- >60 >60 mL/min [place] GFR/1.73 sq M predicted among non-blacks MDRD (S/P/Bld) [Vol rate/Area] [place], [place] Comment on above: Average GFR for 20-2 9 years old: 116 mL/min/1.73sq m Chronic Kidney Disease: <60 mL/min/1.73sq m Kidney failure: <15 mL/min/1.73sq m eGFR calculated using average adult body mass. Additional eGFR calculator available at: http://www.hiredMYway.com/multiple_crcl_2012.htm GFR/1.73 sq M predicted among non-blacks MDRD (S/P/Bld) [Vol rate/Area] NOT REPORTED [place] Glucose [Mass/Vol] 106 mg/dL High 70 - 99 mg/dL [place] Interpretation and review of laboratory results Abnormal [place] Potassium [Moles/Vol] 3.4 mmol/L Low 3.7 - 5.3 mmol/L [place] Sodium [Moles/Vol] 135 mmol/L 135 - 144 mmol/L [place] Urea nitrogen [Mass/Vol] 4 mg/dL Low 6 - 20 mg/dL [place] Hemoglobin and hematocrit, b loodon 02-02-2019 Hematocrit (Bld) [Volume fraction] 26.1 % Low 36.3 - 47.1 % [place] Hemoglobin (Bld) [Mass/Vol] 8.2 g/dL Low 11.9 - 15.1 g/dL [place] Interpretation and review of laboratory results Abnormal [place] MAGNESIUMon 02-02-2019 Interpretation and review of laboratory results Abnormal [place] Magnesium [Mass/Vol] 5.3 mg/dL Critically high 1.6 - 2.6 mg/dL [place] Interpretation and review of laboratory results Abnormal [place] Magnesium [Mass/Vol] 4.9 mg/dL High 1.6 - 2 .6 mg/dL [place] MRSA DNA Probe, Nasalon 01-19 MRSA, DNA, Nasal NEGATIVE: MRSA DNA not detected by nucleic acid amplification. NEGATIVE: MRSA DNA not detected by nucleic acid amplificati [place] Comment on above: Results should be used as an adjunct to nosocomial control efforts to identify patients needing enhanced precautions. The test is not intended to identify patients with staphylococcal infections. Results should not be used to guide or monitor treatment for MRSA infections. Specimen Description .NASAL SWAB [place] Otheron 02-02-2019 Tamir, [facility] Incoming Radiant Results From [employer] - 02/02/2019 9:43 PM EDT EXAMINATION: TWO [...] asymmetry of the knee joint as described. [facility] [place] No acute fracture of the left knee or left tibia/fibula Slight asymmetry of the knee joint as described. [facility] [place] EXAMINATION: TWO XRAY VIEWS OF THE LEFT [...] the lateral joint space at the knee. [place] POC Glucose Fingerstickon Glucose [Mass/Vol] 103 mg/dL 65 - 105 mg/dL [place] XR FEMUR RIGHT (MIN 2 VIEWS) on 02-02-2019 Tamir, [facility] Incoming Radiant Results From [employer] - 02/02/2019 4:29 PM EDT EXAMINATION: 2 [...] distal femoral diaphysis. 2. Comminuted acetabular fracture. [place] 1. Interval placement of a traction pin in the distal femoral diaphysis. 2. Comminuted acetabular fracture. [place] EXAMINATION: 2 XRAY VIEWS OF THE [...] but appears anatomic on the AP view. [place] CERVICAL SPINE WO CONTRAS Ton 02-01-2019 Tamir, [facility] Incoming Radiant Results From [employer] - 02/01/2019 1:47 AM EDT EXAMINATION: CT [...] No acute abnormality of the cervical spine. [place] No acute abnormality of the cervical spine. [place] EXAMINATION: CT OF THE CERVICAL SPINE [...] There is no prevertebral soft tissue swelling. [place] CYSTOGRAM W CONTRASTon No contrast [...] the posterior acetabular fracture on the right. [place] EXAMINATION: CT CYSTOGRAM 02/01/2019 6:46 am [...] HISTORY: ORDERING SYSTEM PROVIDED HISTORY: eval s/p [employer] TECHNOLOGIST PROVIDED HISTORY: Reason for Exam: r/o [...] inferior rectus musculature as well. [facility] [place] Tamir, pn Incoming Radiant Results From [employer] - 02/01/2019 7:41 AM EDT EXAMINATION: CT [...] earlier today. HISTORY: ORDERING SYSTEM PROVIDED HISTORY: [employer] s/p [employer] TECHNOLOGIST PROVIDED HISTORY: Reason for Exam: r/o [...] the posterior acetabular fracture on the right. [place] CT HEAD WO CONTRASTon 2018 EXAMINATION: CT OF THE HEAD WITHOUT CONTRAST 02/01/2019 1:09 am TECHNIQUE: CT of the head was performed without the administration of intravenous contrast. Dose modulation, iterative reconstruction, and/or weight based adjustment of the mA/kV was utilized to reduce the radiation dose to as low as reasonably achievable. COMPARISON: None. HISTORY: ORDERING SYSTEM PROVIDED HISTORY: [facility] TECHNOLOGIST PROVIDED HISTORY: FINDINGS: BRAIN/VENTRICLES: There is [...] of the visualized skull or soft tissues. [place] No acute intracranial abnormality. Paranasal sinus disease as above. No evidence of an air-fluid level. [place] Tamir, [facility] Incoming Radiant Results From [employer] - 02/01/2019 1:44 AM EDT EXAMINATION: CT [...] above. No evidence of an air-fluid level. [place] EKG 12 Leadon 02-01-2019 Atrial Rate 114 BPM [place], [place] P Berkley 63 degrees [place] P-R Interval 156 ms [place] Q-T Interval 326 ms [place] QRS Duration 86 ms [place] QTc Calculation ([place]azett) 449 ms [place] R Berkley 35 degrees [place], [place] T Berkley 7 degrees [place] Ventricular Rate 114 BPM [place] Sinus tachycardia Otherwise normal ECG No previous ECGs available [place] Tamir, [facility] Incoming Ekg Results From [employer] - 02/01/2019 1:51 PM EDT Sinus tachycardia Otherwise normal ECG No previous ECGs available [place] Hepatic Function Panelon Albumin [Mass/Vol] 2.4 g/dL Low 3.5 - 5.2 g/dL [place] Albumin/Globulin [Mass ratio] 0.8 {ratio} Low [place] ALP [Catalytic activity/Vol] 104 U/L 35 - 104 U/L [place] ALT [Catalytic activity/Vol] 17 U/L 5 - 33 U/L [place] AST [Catalytic activity/Vol] 27 U/L <32 [place] Bilirubin Ql (U) 0.18 mg/dL Low 0.3 - 1.2 mg/dL [place] Bilirubin, Indirect 0.1 mg/dL 0 - 1 mg/dL [place] Bilirubin.direct [Mass/Vol] 0.08 mg/dL <0.31 [place] Globulin (S) [Mass/Vol] NOT REPORTED 1.5 - 3.8 g/dL [place] Interpretation and review of laboratory results Abnormal [place] Protein [Mass/Vol] 5.4 g/dL Low 6.4 - 8.3 g/dL [place] Albumin [Mass/Vol] 2.6 g/dL Low 3.5 - 5.2 g/dL [place] Albumin/Globulin [Mass ratio] 0.8 {ratio} Low [place] ALP [Catalytic activity/Vol] 118 U/L High 35 - 104 U/L [place] ALT [Catalytic activity/Vol] 18 U/L 5 - 33 U/L [place] AST [Catalytic activity/Vol] 30 U/L <32 [place] Bilirubin Ql (U) 0.19 mg/dL Low 0.3 - 1.2 mg/dL [place] Bilirubin, Indirect CANNOT BE CALCULATED 0 - 1 mg/dL [place] Bilirubin.direct [Mass/Vol] mg/dL <0.31 mg/dL [place] Globulin (S) [Mass/Vol] NOT REPORTED 1.5 - 3.8 g/dL [place] Protein [Mass/Vol] 5.9 g/dL Low 6.4 - 8.3 g/dL [place] LACTATE DEHYDROGENASEon 01-19 LD 308 U/L High 135 - 214 U/L [place] MAGNESIUMon 02-01-2019 Interpretation and review of laboratory results Abnormal [place] Magnesium [Mass/Vol] 6.8 mg/dL Critically high 1.6 - 2.6 mg/dL [place] Microscopic Urinalysison Amorphous, UA NOT REPORTED None [place], [place] Bacteria, UA NOT REPORTED None [place], [place] Casts UA 0 TO 2 HYALINE Reference range defined for non-centrifuged specimen. [place] Crystals UA NOT REPORTED None /HPF [place], [place] Epithelial Cells UA 0 TO 2 [place] Mucus, UA NOT REPORTED None [place], [place] Other Observations UA NOT REPORTED NOT REQ. M [place], [place] RBC (U) [#/Vol] 0 TO 2 [place] Comment on above: Reference range defi xiomy for non-centrifuged specimen. Renal Epithelial, Urine NOT REPORTED 0 /HPF [place] Trichomonas, UA NOT REPORTED None [facility] [place] WBC, UA 0 TO 2 [place] Yeast, UA NOT REPORTED None [facility], [place] Otheron 02-01-2019 Interpretation and review of laboratory results Abnormal [place] EXAMINATION: CT OF THE CHEST, ABDOMEN, [...] enhancement. No pericardial fluid. Lungs/pleura: There is xalk-xxqydkj-bthp-ri ght bibasilar dependent atelectasis. Lungs are otherwise [...] the posterior superior right acetabulum. [facility] [place] Tamir, [facility] Incoming Radiant Results From [employer] - 02/01/2019 2:11 AM EDT EXAMINATION: CT [...] enhancement. No pericardial fluid. Lungs/pleura: There is dllm-metvrkj-qhrk-ri ght bibasilar dependent atelectasis. Lungs are otherwise [...] to FEDERICO BRANNON on 02/01/2019 at 02:08. [place] There has been acute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 Specialty Start Date End Date Ally Craig APRN-[employer] ENGINEER [address], [place] [address] PCP - General Family Medicine 04/12/18 Chief Warden Relationship Specialty Start Date End Date [facility] [address], [place] [address] PCP - General Family Medicine 04/12/18 Chief Warden Relationship Specialty Start Date End Date Ally Craig APRN-[employer] ENGINEER [address], [place] [address] PCP - General Family Medicine 04/12/18 Goals [...] BE BASED ON THE PRIMARY CLINICAL RECORDS. [facility]. provides no warranty or guarantee of the accuracy or completeness of information in this document.
== END 2024-07-31 21:47 | disposition home or self-care (01) ==
LOC: LAB 21:46
PROVIDERS: PCP Nurse Practitioner; Visit Provider Physician Assistant
DX: Z01.419 Encounter for gynecological examination (general) (routine) without abnormal findings (principal)
CPT/HCPCS: 88175

== ENCOUNTER 2024-08-05 07:59 | Outpatient (OUT) | payer OTHER, SELFPAY ==
--- NOTE | 2024-08-05 08:00 | US_ITS ---
[address] [address] Patient Name: MADDIE ORNELAS MRN: [id number] date: 1995 Sex: F Assigned Patient Location: US Current Patient Location: US Accession/Order Number: [id number] Exam Date: 08/05/2024 08:01 Report Date: 08/05/2024 08:55 At the request of: FAISAL LESLIE Procedure: US OB anatomy EXAMINATION: US OB anatomy, US OB cervical length HISTORY: anatomic survey COMPARISON: No relevant comparison available. TECHNIQUE: Transabdominal sonographic examination was performed for obstetrical and evaluation. FINDINGS: Number: 1 Heart Rate: 144.39 bpm H.B. /min Amniotic Fluid Volume: Subjectively normal Placental Location: Anterior, complete previa. Grade 0. position: Cephalic presentation, longitudinal lie Cervix Length: 5.34 cm , closed Normal anatomy: Lateral ventricles, cerebellum, posterior fossa, nose, lips, orbits, diaphragm, stomach, kidneys, abdominal cord insertion, bladder, umbilical arteries, three-vessel cord, spine, extremities Nonvisualization: Four-chamber heart, RVOT, LVOT Other: Nuchal cord BIOMETRY: BPD: 4.77 cm; 20 weeks 3 days; 3 % HC: 19.08 cm; 21 weeks 2 days; 8.30 % AC: 16.23 cm; 21 weeks 2 days; 14.90 % FL: 3.66 cm; 21 weeks 4 days; 19.80 % EFW:421.60 g; 10.40 % FL/AC: 22.57 FL/BPD: 76.74 HC/AC: 1.18 GESTATIONAL AGE: Age by EDC: 22 weeks 2 days Age by current US: 21 weeks 1 day MERLINE by current US: 2024-12-15 MERLINE by EDC: 2024-12-07 US/US OB anatomy IMPRESSION: Nonvisualization of the heart and ventricular outflow tracts likely related to positioning Nuchal cord Complete placenta previa BPD at the 3rd percentile *Reference: [employer] Practice Guideline for the performance of Obstetric Ultrasound Examinations, March 21, 2007. Electronically authenticated by: ALEJANDRINA ESQUEDA Date: 08/05/2024 08:55
--- NOTE | 2024-08-05 08:00 | US_ITS ---
[address] [address] Patient Name: MADDIE ORNELAS MRN: [id number] date: 1995 Sex: F Assigned Patient Location: US Current Patient Location: US Accession/Order Number: [id number] Exam Date: 08/05/2024 08:01 Report Date: 08/05/2024 08:55 At the request of: FAISAL LESLIE Procedure: US OB cervical length EXAMINATION: US OB anatomy, US OB cervical length HISTORY: anatomic survey COMPARISON: No relevant comparison available. TECHNIQUE: Transabdominal sonographic examination was performed for obstetrical and evaluation. FINDINGS: Number: 1 Heart Rate: 144.39 bpm H.B. /min Amniotic Fluid Volume: Subjectively normal Placental Location: Anterior, complete previa. Grade 0. position: Cephalic presentation, longitudinal lie Cervix Length: 5.34 cm , closed Normal anatomy: Lateral ventricles, cerebellum, posterior fossa, nose, lips, orbits, diaphragm, stomach, kidneys, abdominal cord insertion, bladder, umbilical arteries, three-vessel cord, spine, extremities Nonvisualization: Four-chamber heart, RVOT, LVOT Other: Nuchal cord BIOMETRY: BPD: 4.77 cm; 20 weeks 3 days; 3 % HC: 19.08 cm; 21 weeks 2 days; 8.30 % AC: 16.23 cm; 21 weeks 2 days; 14.90 % FL: 3.66 cm; 21 weeks 4 days; 19.80 % EFW:421.60 g; 10.40 % FL/AC: 22.57 FL/BPD: 76.74 HC/AC: 1.18 GESTATIONAL AGE: Age by EDC: 22 weeks 2 days Age by current US: 21 weeks 1 day MERLINE by current US: 2024-12-15 MERLINE by EDC: 2024-12-07 US/US OB cervical length IMPRESSION: Nonvisualization of the heart and ventricular outflow tracts likely related to positioning Nuchal cord Complete placenta previa BPD at the 3rd percentile *Reference: [employer] Practice Guideline for the performance of Obstetric Ultrasound Examinations, March 21, 2007. Electronically authenticated by: ALEJANDRINA ESQUEDA Date: 08/05/2024 08:55
--- OUTSIDE RECORDS SUMMARY | 2024-08-05 08:02 | XMS_ITS | CCD ---
Author Organization [facility] Care Team Providers Care Cardio Tech Name Role Phone Ally Craig Primary Care Provider TERRI AUGUSTIN Admitting Unavailable TERRI AUGUSTIN Attending Unavailable ALLY CRAIG Primary Care Unavailable VIDYA FERRER Consulting Unavailable ALANA, DR HILLIARD Attending Unavailable ALANA, DR HILLIARD Consulting Unavailable ALANA, DR HILLIARD Admitting Unavailable Jeane Canela Unavailable Kiara PLATE GLASS INSTALLER HELPER - ALLIGATOR HUNTER, Ally Pop Primary Care Pro vider ALLY CRAIG Primary Care Unavailable MARY MAZARIEGOS Referring Unavailable ALLY CRAIG Primary Care Unavailable MARY MAZARIEGOS Referring Unavailable RADHA HERNANDEZ Referring Unavailable ALLY CRAIG A Primary Care Unavailable NON STAFF Primary Care Provider UnavailRAFA Crowder Attending Provider [phone] NON STAFF Primary Care Unavailable Janna Escalera Attending Unavailable Janna Escalera Admitting Unavailable RADHA HERNANDEZ Attending Unavailable ALLY CRAIG A Referring Unavailable ALANNA CRAIGITH A Primary Care Unavailable DOC GUEVARA Attending Unavailable LAUREN SCOTT Referring Unavailable ALANNA CRAGIITH A Primary Care Unavailable ALLY CRAIG Attending Unavailable ALLY CRAIG A Referring Unavailable ALLY CRAIG A Primary Care Unavailable RADHA HERNANDEZ Attending Unavailable ALLY CRAIG A Referring Unavailable KIARA ALLY A Primary Care Unavailable ALLY CRAIG Attending Unavailable ALLY CRAIG Referring Unavailable ALANNA CRAIGITH A Primary Care Unavailable Kiara CRAIG-FALGUNI, Ally Pop Primary Care Provi collin Unavailable Primary Care Provider ZORAIDA Yeung Attending Unavailable CEDRIC WARNER Attending Unavailable Allergies Allergy Classification Reported Allergen(s) Allergy Type Date of Onset Reaction(s) Facility strawberry allergenic extract (1 source) strawberry allergenic extract Drug Allergy [facility] (3 sources) strawberry allergenic extract Drug Allergy 9 Anaphylaxis [place], [place] (11 sources) [place] Propensity to adverse reactions 9 Anaphylaxis [facility] Medications Current Medications Medication Drug Class(es) Dates Sig (Normalized) Sig (Original) acetaminophen 500 mg oral tablet (1 source) Start: 02-01-2019 acetaminophen (TYLENOL) tablet 1,000 mg [id number] 200 actuat albuterol 0.09 mg/actuat metered dose [...] mg busPIRone hydrochloride 7.5 mg oral tablet (19 sources) Start: 03-15-2024 take 1 tablet by [...] by mouth every week vitamin D (ERGOCALCIFEROL) 65287 units CAPS capsule Take 1 capsule by [...] 5 mg MV-Min-Fe Fum-FA-DHA ( 1 PO) (11 sources) MV-Min- Fe Fum-FA-DHA ( 1 PO) [...] morning. 90 tablet 3 11/18/2021 Active sennosides, [facility] 8.6 mg oral tablet (2 sources) Start: [...] 11:40am Start: 11-23-2022 take 1 tablet by ihlary th at bedtime ARIPiprazole (ABILIFY) 5 mg [...] B12 Start: 02-09-2019 End: 02-09-2019 iron polysaccharide tofmpqi-F58-yabyb acid (FERREX-FORTE) 150-0.025-1 MG capsule 1 mg [...] Episodic Immunizations and screening for infectious disease (3 sources) Contact with and (suspected) exposure to other viral communicable diseases; Translations: [Exposure to sexually transmissible disorder] 07-31-2024 Episodic Malaise and fatigue (4 sources) Chronic [...] 03-15-2024 Episodic Other and delivery including normal (8 sources) ; Translations: [Encounter for supervision of normal , unspecified, unspecified trimester] 05-29-2024 Episodic Other screening for suspected conditions (not mental disorders or infectious disease) (6 sources) Encounter for screening for lipoid disorders; [...] weight gain] Onset: 03-15-2024 03-15-2024 Episodic Other upper respiratory [...] Test Name Value Interpretation Reference Range Facility IGP,APTIMA HPV,AGE GDLNon AGE GDLN ACOG TESTING Note . [facility] Comment on above: TESTS RESULT FLAG UN ITS REF RANGE LAB Clinician Provided Cytology Information Source.............Cervix Other.............. No. of containers..01 ThinPrep Vial Age Algo ACOG Theodora... FLAG LEGEND: L-Low Normal,H-High Normal,LL-Alert Low,HH-Alert High <-Panic Low,>-Panic High,A-Abnormal,AA-Critical Abnormal Performed at: 01 =G [facility] [place] [address] Otilia Marquis MD, IGP, RFX APTIMA HPV ASCU Note . [facility] Comment on above: TESTS RESULT FLAG UN ITS REF RANGE LAB DIAGNOSIS: 02 NEGATIVE FOR INTRAEPITHELIAL LESION OR MALIGNANCY. Specimen adequacy: 02 Satisfactory for evaluation. Endocervical and/or squamous metaplastic cells (endocervical component) are present. Performed by: Trupti Bliss, Infant Lead Teacher ([facility]) . 02 Note: Note 03 The Pap smear is a screening test designed to aid in the detection of premalignant and malignant conditions of the uterine cervix. It is not a diagnostic procedure and should not be used as the sole means of detecting cervical cancer. Both false-positive and false-negative reports do occur. Test Methodology: Note 03 This liquid based ThinPrep(R) pap test was screened with the use of an image guided system. . 02 The HPV DNA reflex criteria were not met with this specimen result therefore, no HPV testing was performed. FLAG LEGEND: L-Low Normal,H-High Normal,LL-Alert Low,HH-Alert High <-Panic Low,>-Panic High,A-Abnormal,AA-Critical Abnormal Performed at: [address] [place] [address] [place] [address] Kyra Flores PhD, [address] [address] Otilia Marquis MD, Performed at: [address] [id number] Autom[employer] Title Clerk: Otilia Marquis MD, Phone: [phone] Performed at: [address], [place] [id number] Autom[employer] Title Clerk: Kyra Flores PhD, Phone: [phone] [facility]ONE [facility] RECURRENT VAGINITIS (HTRX)on 08-02-2024 ATOPOBIUM VAGINAE 21.302 Abnormal [facility] ATOPOBIUM VAGINAE Detected Abnormal [facility] BVAB 2,3 (BACTERIAL VAGINOSIS ASSOCIATED BACTERIA 2, 3); MOBILUNCUS SPP 18.822 Abnormal [facility] BVAB 2,3 (BACTERIAL VAGINOSIS ASSOCIATED BACTERIA 2, 3); MOBILUNCUS SPP Detected Abnormal [facility] ROCÍO ALBICANS, PARAPSILOSIS, TROPICALIS 0 [facility] ROCÍO ALBICANS, PARAPSILOSIS, TROPICALIS Not detected [facility] ROCÍO GLABRATA 0 [facility] ROCÍO GLABRATA Not detected [facility] ROCÍO KRUSEI 0 [facility] ROCÍO KRUSEI Not detected [facility] CHLAMYDIA TRACHOMATIS 0 [facility] CHLAMYDIA TRACHOMATIS Not detected [facility] ERMB, C; MEFA 21.66 Abnormal [facility] ERMB, C; MEFA Detected Abnormal [facility] GARDNERELLA VAGINALIS 22.792 Abnormal [facility] Healthcare GARDNERELLA VAGINALIS Detected Abnormal [facility] Healthcare Interpretation and review of laboratory results Abnormal [facility] MEGASPHAERA (TYPES 1, 2) 17.674 Abnormal [facility] MEGASPHAERA (TYPES 1, 2) Detected Abnormal [facility] MYCOPLASMA GENITALIUM 0 [facility] MYCOPLASMA GENITALIUM Not detected N [facility] NEISSERIA GONORRHOEAE 0 [facility] NEISSERIA GONORRHOEAE Not detected N [facility] TRICHOMONAS VAGINALIS 0 [facility] TRICHOMONAS VAGINALIS Not detected N [facility] Urinalysis macro (dipstick) panel (U)on 07-31-2024 Bilirubin, UA Positive Negative - 4(70) +++ mg/dL [facility] Comment on above: small Blood, UA Negative Negative - 50 Miguel Angel/mcL [facility] Clarity, UA Cloudy [facility] Color, UA Dark Tiffany [facility] Glucose, UA Negative Negative - 2000(110) ++++ mg/dL [facility] Interpretation and review of laboratory results Abnormal [facility] Ketones, UA Negative Negative - 160(16) ++++ mg/dL [facility] Leukocytes, UA Negative Negative - 500+++ Eleonora/mcL [facility] Nitrite, UA Negative Negative - Positive [facility] pH, UA 6 5 - 9 [facility] Protein, UA Positive Negative - 2000(20) ++++ mg/dL [facility] Comment on above: 30 mg Spec Grav, UA 1.03 1 - 1.03 [facility] Urobilinogen, UA 1.0 0.2 - 12 mg/dL [facility] AFP, SERUM, OPEN SPINA BIFID Aon 07-07-2024 AFP MOM 0.99 . [facility] AFP VALUE 31.8 ng/mL . [facility] COMMENT: Comment . [facility] Comment on above: Yanni West , Ph.D., [facility] Director References: Available Upon Request. Multiples Of Median Cutoffs For AFP Elevations Alonso 2.5 Black 2.8 IDD 2.0 Twins 4.5 Abbreviation Definitions IDD - Insulin Dep Diabetes OSBR - Open Spina Bifida Risk For further inquiries contact [employer] at [phone]. This test was developed and its performance characteristics determined by [employer]. It has not been cleared or approved by the Food and Drug Administration. Performed at: [facility] RTP [address], [place], [place] [id number] Automotive Title Clerk: Sinai Arellano [facility], Phone: [phone] GEST. AGE ON COLLECTION DATE 17.9 . weeks [facility] GESTAT. AGE BASED ON Ultrasound . [facility] Comment on above: 15:0 on 06/15/2024 Recalculations are not recommended when gestational dating by LMP and ultrasound are within 10 days. INSULIN DEP DIABETES No . [facility] INTERPRETATION Comment . [facility] Comment on above: Interpretation: Scre en Negative [...] Customer Services to discuss available options. The [employer] recommends amniocentesis be offered to women age 35 and older. [age] [facility] MULTIPLE GESTATION No . [facility] [place] [id number] . [facility] RACE . [facility] RESULTS Report . [facility] TEST RESULTS: Negative . [facility] WEIGHT 237 . lbs [facility] N [id number] N ULTRASOUND [id number] 0 15 N 1 Y 237 N N N N N White/ [facility] Urinalysis macro (dipstick) panel (U)on 06-15-2024 Bilirubin, UA Negative Negative - 4(70) +++ mg/dL [facility] Blood, UA Negative Negative - 50 Miguel Angel/mcL [facility] Clarity, UA Clear [facility] Color, UA Yellow [facility] Glucose, UA Negative Negative - 1999(110) ++++ mg/dL [facility] Interpretation and review of laboratory results Abnormal [facility] Ketones, UA Negative Negative - 160(16) ++++ mg/dL [facility] Leukocytes, UA Few Negative - 500+++ Eleonora/mcL [facility] Comment on above: small Nitrite, UA Negative Negative - Positive [facility] pH, UA 7 5 - 9 [facility] Protein, UA Negative Negative - 2000(20) ++++ mg/dL [facility] Spec Grav, UA 1.025 1 - 1.03 [facility] Urobilinogen, UA 2.0 0.2 - 12 mg/dL [facility] BOX TESTon 06-06-2024 BOX TEST SENT OUT [facility] BOX1 [facility] BOX2 06/06/24 [facility] ( test) Ql (U)o n 05-29-2024 Interpretation and review of laboratory results Abnormal [facility] Preg Test, Ur Positive Negative [facility] Urinalysis macro (dipstick) panel (U)on 05-29-2024 Bilirubin, UA Negative Negative - 4(70) +++ mg/dL [facility] Blood, UA Negative Negative - 50 Miguel Angel/mcL [facility] Clarity, UA Clear [facility] Color, UA Yellow [facility] Glucose, UA Negative Negative - 2000(110) ++++ mg/dL [facility] Interpretation and review of laboratory results Abnormal [facility] Ketones, UA Positive Negative - 160(16) ++++ mg/dL [facility] Comment on above: trace Leukocytes, UA Negative Negative - 500+++ Eleonora/mcL [facility] Nitrite, UA Negative Negative - Positive [facility] pH, UA 6.5 5 - 9 [facility] Protein, UA Negative Negative - 2000(20) ++++ mg/dL [facility] Spec Grav, UA 1.02 1 - 1.03 [facility] Urobilinogen, UA 1.0 0.2 - 12 mg/dL [facility] TBH PREG QUANT HCGon 05-12- 024 HCG QUANTITATIVE 53111 mIU/mL [facility] Comment on above: 5-50 0.2-1 WEEK 50-500 1-2 WEEKS 100-5,000 2-3 WEEKS 500-10,000 3-4 WEEKS 1,000-50,000 4-5 WEEKS 10,000-100,000 5-6 WEEKS 15,000-200,000 6-8 WEEKS 10,000-100,000 2-3 MONTH[facility] PREG QUANT HCGon 024 HCG QUANTITATIVE 07011 mIU/mL [facility] Comment on above: 5-50 0.2-1 WEEK 50-500 1-2 WEEKS 100-5,000 2-3 WEEKS 500-10,000 3-4 WEEKS 1,000-50,000 4-5 WEEKS 10,000-100,000 5-6 WEEKS 15,000-200,000 6-8 WEEKS 10,000-100,000 2-[facility] PREG QUANT HCGon 05-08- 024 HCG QUANTITATIVE 76771 mIU/mL [facility] Comment on above: 5-50 0.2-1 WEEK 50-500 1-2 WEEKS 100-5,000 2-3 WEEKS 500-10,000 3-4 WEEKS 1,000-50,000 4-5 WEEKS 10,000-100,000 5-6 WEEKS 15,000-200,000 6-8 WEEKS 10,000-100,000 2-3 [facility] URINE CULTUREon 01-20-2024 Bacteria identified Cx Nom [...] F TRIMETH/SULFAMETHOXA ZOLE R >=16/304 F Resistant [facility] Comment on above: Performed By: #### 6 30-4 #### [facility] ([id number]) [address] [place] [address], [address] [place] [address] Basic Metabolic Vasquez w/Rfx A1 Con 12-08-2023 GFR/1.73 sq M.predicted MDRD (S/P/Bld) [Vol rate/Area] mL/min/{1.73_m2} Normal [facility] Comment on above: Performed By: #### E BS LIPID, EMP BMP #### [facility] [address] [place] [address] [facility] Calcium [Mass/volume] in Ser um or PlasmaOrdered By: Janna Escalera on 12-08-2023 Calcium [Mass/Vol] 9.5 mg/dL Normal 8.6-10.3 [facility] Comment on above: Performed By: #### E BS LIPID, EMP BMP #### [facility] [address] [place] [address] [place] Carbon dioxide, total [Moles /volume] in Serum or PlasmaOrdered By: Janna Escalera on 12-08-2023 CO2 [Moles/Vol] 29.1 mmol/L Normal 21.0-31.0 [facility] Comment on above: Performed By: #### E BS LIPID, EMP BMP #### [facility] [address] [place] [address] [place] Chloride [Moles/volume] in S radha or PlasmaOrdered By: Janna Escalera on 12-08-2023 Chloride [Moles/Vol] 105 mmol/L Normal 98-107 [facility] Comment on above: Performed By: #### E BS LIPID, EMP BMP #### [facility] [address] [place] [address] [place] Cholesterol [Mass/volume] in Serum or PlasmaOrdered By: Janna Escalera on 12-08-2023 Cholesterol [Mass/Vol] 163 mg/dL Normal 140-200 [facility] Comment on above: Chol less than 200 m g/dl low riskChol 201-239 mg/dl borderline riskChol 240 mg/dl and greater high risk Result Comment: Chol less than 200 mg/dl low risk Chol 201-239 mg/dl borderline risk Chol 240 mg/dl and greater high risk Performed By: #### E BS LIPID, EMP BMP #### [facility] [address] [place] [address] [place] Cholesterol in LDL Calc [Mas s/Vol]Ordered By: Janna Escalera on 12-08-2023 Cholesterol in LDL [Mass/Vol] 84 mg/dL 0-100 [facility] Comment on above: LDL ATP III CLASSIFI CATIONLDL less than 100 mg/dL OptimalLDL 100-129 mg/dL Near or above optimalLDL 130-159 mg/dL Borderline highLDL 160-189 mg/dL HighLDL greater than 189 mg/dL Very high Cholesterol in VLDL Calc [Ma ss/Vol]Ordered By: Janna Escalera on 12-08-2023 Cholesterol in VLDL [Mass/Vol] 17 mg/dL [facility] Creatinine [Mass/volume] in Serum or PlasmaOrdered By: Janna Escalera on 12-08-2023 Creatinine [Mass/Vol] 0.69 mg/dL Normal 0.60-1.20 [facility] Comment on above: Performed By: #### E BS LIPID, EMP BMP #### [facility] [address] Glucose [Mass/volume] in Ser um or PlasmaOrdered By: Janna Escalera on 12-08-2023 Glucose [Mass/Vol] 83 mg/dL Normal 70-100 [facility] Comment on above: Performed By: #### E BS LIPID, EMP BMP #### [facility] [address] Lipid Profileon 12-08-2023 LDL Cholesterol,Calculated 84 mg/dL Normal 0-100 [facility] Comment on above: Result Comment: LDL ATP III CLASSIFICATION LDL less than 100 mg/dL Optimal LDL 100-129 mg/dL Near or above optimal LDL 130-159 mg/dL Borderline high LDL 160-189 mg/dL High LDL greater than 189 mg/dL Very high Performed By: #### E BS LIPID, EMP BMP #### [facility] [address] Triglyceride w/Reflex 87 mg/dL Normal 0-[address] [facility] Comment on above: Result Comment: TRIG ATP III CLASSIFICATION TRIG less than 150 mg/dL Normal TRIG 150-199 mg/dL Borderline high TRIG 200-500 mg/dL High TRIG greater than 500 mg/dL Very high Standard traceable to the Center for Disease Conrtrol and Prevention (CDC) test method. Performed By: #### E BS LIPID, EMP BMP #### [facility] [address] [place] [id number] [facility] VLDL CHOLESTEROL 17 mg/dL Normal [facility] Comment on above: Performed By: #### E BS LIPID, EMP BMP #### [facility] [address] [place] [id number] [facility] No Panel InformationOrdered By: Janna Escalera on 12-08-2023 Estimated GFR (CKD-EPI) > 60.0 mL/Min [facility] Creatinine Clearance (Chem N/A [facility] Potassium [Moles/volume] in Serum or PlasmaOrdered By: Janna Escalera on 12-08-2023 Potassium [Moles/Vol] 3.6 mmol/L Normal 3.5-5.1 [facility] Comment on above: Performed By: #### E BS LIPID, EMP BMP #### [address] Serum or plasma anion gap de terminationOrdered By: Janna Escalera on 12-08-2023 Anion gap [Moles/Vol] 10.5 mmol/L Normal 6.0-15.0 [facility] Comment on above: Performed By: #### E BS LIPID, EMP BMP #### [address] Serum or plasma high density lipoprotein (HDL) cholesterol measurementOrdered By: Janna Escalera on 12-08-2023 Cholesterol in HDL [Mass/Vol] 62 mg/dL Normal 23-92 [facility] Comment on above: HDL CHOL ATP-III CLA SSIFICATION Cardiovascular RiskHDL > or equal to 60 mg/dL LOWHDL < 40 mg/dL HIGH Result Comment: HDL CHOL ATP-III CLASSIFICATION Cardiovascular Risk HDL > or equal to 60 mg/dL LOW HDL < 40 mg/dL HIGH Performed By: #### E BS LIPID, EMP BMP #### [facility] [address] [place] [address] Serum or plasma total choles terol/high density lipoprotein (HDL) cholesterol mass ratOrdered By: Janna Escalera on 12-08-2023 Cholesterol.total/Chol esterol in HDL [Mass ratio] 2.6 {ratio} Normal <5.0 [facility] Comment on above: Result Comment: PERF ORMED BY: [place] [address] PATHOLOGIST KNITTING MACHINE FIXER HEAD CHERYL GEORGE M.D. Performed By: #### E BS LIPID, EMP BMP #### [address] Sodium [Moles/volume] in Ser um or PlasmaOrdered By: Janna Lali on 12-08-2023 Sodium [Moles/Vol] 141 mmol/L Normal 136-145 [facility] Comment on above: Performed By: #### E BS LIPID, EMP BMP #### [facility] [address] [place] [id number] [facility] Triglyceride [Mass/volume] i n Serum or PlasmaOrdered By: Janna Escalera on 12-08-2023 Triglyceride [Mass/Vol] 87 mg/dL 0-149 [facility] Comment on above: TRIG ATP III CLASSIF ICATIONTRIG less than 150 mg/dL NormalTRIG 150-199 mg/dL Borderline highTRIG 200-500 mg/dL High TRIG greater than 500 mg/dL Very highStandard traceable to the Center for Disease Conrtrol and Prevention (CDC) test method. Urea nitrogen [Mass/volume] in Serum or PlasmaOrdered By: Janna Escalera on 12-08-2023 Urea nitrogen [Mass/Vol] 14 mg/dL Normal 7-25 [facility] Comment on above: Performed By: #### E BS LIPID, EMP BMP #### [facility] [address] MRI HIP RIGHT W CONTRASTon 1 [...] Tucker Ashby MD 06/08/[address] [facility] IR INJ ARTHROGRAM HIP RIGHTo n [...] 120.55 uGy cm 2 Views: 3 PROCEDURE: MEDICAL HOUSEKEEPER: Elijah Houston This procedure was performed by [...] Eric Rae MD 06/05/[address] [facility] Successful fluoroscopic-guided right hip arthrogram. Patient was transferred to MRI for further imaging. [facility] EXAMINATION: FLUOROSCOPIC GUIDED RIGHT HIP ARTHROGRAM, 06/05/2022 2:50 pm COMPARISON: None. HISTORY: ORDERING SYSTEM PROVIDED HISTORY: Tear of right acetabular labrum, initial encounter TECHNOLOGIST PROVIDED HISTORY: r/o R hip labral tear. MRI ordered Is the patient ?->No FLUOROSCOPY DOSE AND TYPE OR TIME AND EXPOSURES: Fluoro time 0.3 minutes DAP 120.55 uGy cm 2 Views: 3 PROCEDURE: MEDICAL HOUSEKEEPER: Elijah Houston This procedure was performed by [...] and left the Department in stable condition. [facility] Eric Dukes MD - 06/05/2022 [...] 120.55 uGy cm 2 Views: 3 PROCEDURE: MEDICAL HOUSEKEEPER: Elijah Houston This procedure was performed by [...] was transferred to MRI for further imaging. [employer] Phone: Radiology Study observation (narrative) [employer] Phone: IR INJ ARTHROGRAM HIP RIGHTO rdered By: Eric Dukes on 06-05-2022 [employer] Phone: 2018 Novel Coronavirus (CoVI D-19), SAMIR LCon 02-20-2021 SARS-CoV-2 (COVID-19) RNA SAMIR+probe Ql (Unsp spec) Not detected Invalid Interpretation Code Not Detected [facility] Comment on above: Result Comment: This nucleic acid amplification test was developed and its performance characteristics determined by [employer]. Nucleic acid amplification tests include RT- PCR [...] detected) result in this assay. Performed At: [address] [id number] Maritza Uribe PhD Ph:[phone] Performed By: #### 6 [id number] #### [facility] (DEFAULT) [address] [place] [address] Consent Formson 02-19-2021 Consent Forms [id number] [facility] [id number] #[facility] - Toxicology Resultson 0 02-19-2021 Lab - Toxicology Results [id number] #1.00OTGTIFF [facility] Outside Recordson 02-19-2021 Outside Records [id number] #1.00OTGTIFF [facility] Triage Industrialon 02-20-20 21 Drug Screen Complete Collected Normal [facility] Comment on above: Performed By: #### 1 [id number] #### [facility] (DEFAULT) [address] [place] [address] ED Clinical Summaryon 2020 ED Clinical Summary [facility] ? Urgent Care [address] [place] [address] Clinical Summary PERSON INFORMATION Name: MADDIE RAMAN Age: 25 Years Sex: FEMALE : 1995 MRN: Acct#: Visit Reason: Medical screening exam; [facility] Arrival: 02/18/2021 13:01:04 Discharge: 02/18/2021 14:21:00 LOS: 000 01:20 Check In: 02/18/2021 13:01:04 Checkout: 02/18/2021 14:21:00 Address: [address] [facility] [address] PCP: Provider, Unlisted PROVIDER INFORMATION Provider Role [...] verbalizes understanding of instructions given Comment: Normal [facility] ED Patient Summaryon 021 ED Patient Summary [facility] ? Urgent Care [address] [place] [address] PATIENT DISCHARGE INSTRUCTIONS Patient Information Name: MADDIE RAMAN Age: 25 Years Date of : 1995 Reason For Visit: Medical screening exam; [facility] Arrival Time: 02/18/2021 13:01:04 Primary Care Physician: Provider, Unlisted Attending Physician: Adam Moncada PA-C Comment: Patient Education Medication Information: The exam and treatment you received today in the [facility] Emergency Department were for an urgent problem and are not intended as complete care. It is important for you to follow up with a doctor, nurse practitioner, or physician?s habilitation assistant for ongoing care. If your symptoms [...] so we can reach you if necessary. [facility] Emergency Department has provided you with a complete list of medications post discharge. 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 manager primary/provider of your visit and for further instruction on these medications. Any specific questions regarding your chronic medications and dosages should be discussed with your primary care physician(s) and/or pharmacist. Visit Information Visit Diagnosis: Diagnoses This Visit Medical screening exam ([id number]) If you received any narcotics, sedation, or [...] Reason for Visit: Patient arrives to for Daisy physical Allergies: Substance Reaction Symptoms Type Comments [...] for Disease Control and Prevention February 2014 [facility] Urgent Care Note- Provideron 02-18-2021 Urgent Care Note- Provider Patient: MADDIE RAMAN Age: 25 years Sex: FEMALE : 1995 Associated Diagnoses: None Author: Adam Moncada PA-C Basic Information Additional information: Chief Complaint from Nursing Triage Note : Chief Complaint 02/18/2021 13:34 EDT Chief Complaint Patient arrives to for Daisy physical . History of Present Illness Patient presents for a pre-employment physical. She is cleared for work. Exam is normal. See scanned document. PSYCHIATRIC: Mood and affect appropriate. Health Status Allergies: Allergic Reactions (Selected) No known allergies. Past Medical/ Family/ Social History Medical history: No active or resolved past medical history items have been selected or recorded.. Surgical history: Cholecystectomy ([id number]). Hip replacement ([id number]). delivery ([id number]). Cardiac ablation system ([id number]).. Family history: No family history items have [...] % Oxygen Therapy Room air . Normal [facility] Care [place] 021 Urgent Care Record [facility] ? Urgent Care [address] [place] [address] PATIENT DISCHARGE INSTRUCTIONS Patient Information Name: MADDIE RAMAN Age: 25 Years Date of : 1995 Reason For Visit: [facility]: 02/18/2021 13:01:04 Primary Care Physician: Provider, Unlisted Attending Physician: Adam Moncada PA-C Comment: Visit Diagnosis: Diagnoses This Visit Medical screening exam ([id number]) If you received any narcotics, sedation, or [...] and treatment you received today in the [facility] were for an urgent problem and are not intended as complete care. It is important for you to follow up with a doctor, nurse practitioner, or physician?s habilitation assistant for ongoing care. If your symptoms [...] so we can reach you if necessary. [facility] Urgent [facility] has provided you with a complete list of medications post discharge. 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 manager primary/provider of your visit and for further instruction [...] Disease Control and Prevention February 2014 Normal [facility] PROGESTERONEon 05-25-2020 Progesterone 3.3 ng/mL Normal [facility] Comment on above: Result Comment: Foll icular phase 0.1 - 0.9 Luteal phase 1.8 - 23.9 Ovulation phase 0.1 - 12.0 First trimester 11.0 - 44.3 Second trimester 25.4 - 83.3 Third trimester 58.7 - 214.0 Postmenopausal 0.0 - 0.1 Performed By: #### P ROSA #### [facility] [address] [place], [place] [address] Sebastian Ordoñez Hgb/Hcton 02-22-2019 Hematocrit (Bld) [Volume fraction] 28.7 % Low 36-46 [facility] Comment on above: Performed By: #### H H #### [facility] [address] [place] [address] [employer] Title Clerk: Remy Haq DO Hemoglobin (Bld) [Mass/Vol] 9.4 g/dL Low 12.0-16.0 [facility] Comment on above: Performed By: #### H H #### [facility] [address] [place] [address] [employer] Title Clerk: Remy Haq DO Basic Metabolic Profon 02-20 (cont.) Normal [facility] Comment on above: Result Comment: Aver age GFR for 20-29 years old: 116 mL/min/1.73sq m Chronic Kidney Disease: <60 mL/min/1.73sq m Kidney failure: <15 mL/min/1.73sq m eGFR calculated using average adult body mass. Additional eGFR calculator available at: http://www.[employer]/multiple_crcl_2012.htm Performed By: #### C JAMA, BMP #### [facility] [address] [facility] [place] [address] [employer] Title Clerk: Remy Haq DO Anion gap [Moles/Vol] 13 mmol/L Normal 9-17 [facility] Comment on above: Performed By: #### Joy YUN, BMP #### [facility] [address] [facility] [place] [address] [employer] Title Clerk: Remy Haq DO Calcium [Mass/Vol] 8.8 mg/dL Normal 8.6-10.4 [facility] Comment on above: Performed By: #### Joy YUN, BMP #### [facility] [address] [place] [address] [employer] Title Clerk: Remy Haq DO Chloride [Moles/Vol] 103 mmol/L Normal 98-[address] [facility] Comment on above: Performed By: #### Joy YUN, BMP #### [facility] [address] [place] [address] [employer] Title Clerk: Fanelly, Remy, DO CO2 [Moles/Vol] 25 mmol/L Normal 20-31 [facility] Comment on above: Performed By: #### C BC, BMP #### [facility] [address] [place] [address] [employer] Title Clerk: Remy Haq DO Creatinine [Mass/Vol] 0.72 mg/dL Normal 0.50-0.90 [facility] Comment on above: Performed By: #### C BC, BMP #### [facility] [address] [place] [address] [employer] Title Clerk: Remy Haq DO GFR, Amer >60 Normal >60 [facility] Comment on above: Performed By: #### C BC, BMP #### [facility] [address] [place] [address] [employer] Title Clerk: Remy Haq DO GFR,non Amer >60 Normal >[address] [facility] Comment on above: Performed By: #### C BC, BMP #### [facility] [address] [place] [address] [employer] Title Clerk: Remy Haq DO Glucose [Mass/Vol] 96 mg/dL Normal 70-99 [facility] Comment on above: Performed By: #### C BC, BMP #### [facility] [address] [facility] [place] [address] [employer] Title Clerk: Remy Haq DO Potassium [Moles/Vol] 4.0 mmol/L Normal 3.7-5.3 [facility] Comment on above: Performed By: #### C BC, BMP #### [facility] [address] [place] [address] [employer] Title Clerk: Remy Haq DO Sodium [Moles/Vol] 141 mmol/L Normal 135-144 [facility] Comment on above: Performed By: #### C BC, BMP #### [facility] [address] [facility] [place] [address] [employer] Title Clerk: Remy Haq DO Urea nitrogen [Mass/Vol] 10 mg/dL Normal 6-20 [facility] Comment on above: Performed By: #### C BC, BMP #### [facility] [place] [address] [employer] Title Clerk: Remy Haq DO BUN/CRE Ratio NOT REPORTED Normal 9-20 [facility] Comment on above: Performed By: #### C JAMA, BMP #### [facility] [address] [place] [address]. [place] [address] [employer] Title Clerk: Remy Haq DO Staging: NOT REPORTED Normal [facility] Comment on above: Performed By: #### C JAMA, BMP #### [facility] [address] [place] [address] [employer] Title Clerk: Remy Haq DO CBCon 02-20-2019 Erythrocyte distribution width (RBC) [Ratio] 16.5 % High 11.5-14.9 [facility] Comment on above: Performed By: #### C JAAM, BMP #### [facility] [address] [place] [address]. [place] [address] [employer] Title Clerk: Remy Haq DO Hematocrit (Bld) [Volume fraction] 25.9 % Low 36-46 [facility] Comment on above: Performed By: #### C BC, BMP #### [facility] [address] [place] [address]. [place] [address] [employer] Title Clerk: Remy Haq DO Hemoglobin (Bld) [Mass/Vol] 8.6 g/dL Low 12.0-16.0 [facility] Comment on above: Performed By: #### C BC, BMP #### [facility] [address] [place] [address] [place] [address] [employer] Title Clerk: Remy Haq DO MCH (RBC) [Entitic mass] 28.2 pg Normal 26-34 [facility] Comment on above: Performed By: #### Joy YUN, BMP #### [facility] [address] [place] [address] [employer] Title Clerk: Remy Haq DO MCHC (RBC) [Mass/Vol] 33.0 g/dL Normal 31-37 [facility] Comment on above: Performed By: #### Joy YUN, BMP #### [facility] [address] [place] [address] [employer] Title Clerk: Remy Haq DO MCV (RBC) [Entitic vol] 85.4 fL Normal 80-100 [facility] Comment on above: Performed By: #### Joy YUN, BMP #### [facility] [address] [place] [address] [employer] Title Clerk: Remy Haq DO Platelet mean volume (Bld) [Entitic vol] 6.7 fL Normal 6.0-12.0 [facility] Comment on above: Performed By: #### Joy YUN, BMP #### [facility] [address] [place] [address] [employer] Title Clerk: Remy Haq DO Platelets (Bld) [#/Vol] 419 10*3/uL Normal 150-450 [facility] Comment on above: Performed By: #### Joy YUN, BMP #### [facility] [address] [place] [address] [employer] Title Clerk: Remy Haq DO RBC (Bld) [#/Vol] 3.03 10*6/uL Low 4.0-5.2 [facility] Comment on above: Performed By: #### Joy YUN, BMP #### [facility] [address] [place] [address] [place] [address] [employer] Title Clerk: Remy Haq DO WBC (Bld) [#/Vol] 6.3 10*3/uL Normal 3.5-11.0 [facility] Comment on above: Performed By: #### C BC, BMP #### [facility] [address] [place] [address]. [place] [address] [employer] Title Clerk: Remy Haq DO NRBC Automated NOT REPORTED Normal [facility] Comment on above: Performed By: #### C BC, BMP #### [facility] [address] [place] [address]. [place] [address] [employer] Title Clerk: Remy Haq DO Hgb/Hcton 02-20-2019 Hematocrit (Bld) [Volume fraction] 29.6 % Low 36-46 [facility] Comment on above: Performed By: #### H H #### [facility] [address] [place] [address]. [place] [address] [employer] Title Clerk: Remy Haq DO Hemoglobin (Bld) [Mass/Vol] 9.7 g/dL Low 12.0-16.0 [facility] Comment on above: Performed By: #### H H #### [facility] [address] [place] [address]. [place] [address] [employer] Title Clerk: Remy Haq DO CBCon 02-19-2019 Erythrocyte distribution width (RBC) [Ratio] 16.6 % High 11.5-14.9 [facility] Comment on above: Performed By: #### C BC #### [facility] [address] [place] [address]. [place] [address] [employer] Title Clerk: Remy Haq DO Hematocrit (Bld) [Volume fraction] 23.2 % Low 36-46 [facility] Comment on above: Performed By: #### C BC #### [facility] [address] [place] [address] [place] [address] [employer] Title Clerk: Remy Haq DO Hemoglobin (Bld) [Mass/Vol] 7.6 g/dL Low 12.0-16.0 [facility] Comment on above: Performed By: #### C BC #### [facility] [place] [address] [employer] Title Clerk: Remy Haq DO MCH (RBC) [Entitic mass] 27.8 pg Normal 26-34 [facility] Comment on above: Performed By: #### C BC #### [facility] [address] [place] [address] [employer] Title Clerk: Remy Haq DO MCHC (RBC) [Mass/Vol] 32.7 g/dL Normal 31-37 [facility] Comment on above: Performed By: #### C BC #### [facility] [address] [place] [address] [employer] Title Clerk: Remy Haq DO MCV (RBC) [Entitic vol] 85.0 fL Normal 80-100 [facility] Comment on above: Performed By: #### C BC #### [facility] [address] [place] [address] [employer] Title Clerk: Remy Haq DO Platelet mean volume (Bld) [Entitic vol] 6.5 fL Normal 6.0-12.0 [facility] Comment on above: Performed By: #### C BC #### [facility] [address] [place] [address] [employer] Title Clerk: Remy Haq DO Platelets (Bld) [#/Vol] 444 10*3/uL Normal 150-450 [facility] Comment on above: Performed By: #### C BC #### [facility] [address] [place], [place] [address] [employer] Title Clerk: Remy Haq DO RBC (Bld) [#/Vol] 2.73 10*6/uL Low 4.0-5.2 [facility] Comment on above: Performed By: #### C BC #### [facility] [address] [place] [address] [employer] Title Clerk: Remy Haq DO WBC (Bld) [#/Vol] 5.1 10*3/uL Normal 3.5-11.0 [facility] Comment on above: Performed By: #### C BC #### [facility] [address] [facility] [place] [address] [employer] Title Clerk: Remy Haq DO NRBC Automated NOT REPORTED Normal [facility] Comment on above: Performed By: #### C BC #### [facility] [address] [place] [address] [employer] Title Clerk: Remy Haq DO Type + Crossmatchon 02-20-20 19 Type + Crossmatch Sample Expiration 02/22/2019 Arm Band Number [id number] ABO/Rh(D) A POSITIVE Antibody Screen NEGATIVE Blood Bank Comment Pt's ABRh confirmed as A POS:402 Results Verified BLANCHE, Polyspecific NEGATIVE BLANCHE, Anti-IgG [place]ore[place] Serum NEGATIVE Antibody Ident Anti-[place](A) Present Unit Number [id number] Blood Component Type Leukocyte Reduced Red Cell Unit Division 00 Status of Unit TRANSFUSED Transfusion Status OK TO TRANSFUSE Crossmatch Result COMPATIBLE Normal [facility] Comment on above: Performed By: #### T YX #### [facility] [address] [place] [address] [employer] Title Clerk: Remy Haq DO Basic Metab w/rfx MGon 02-16 (cont.) Normal [facility] Comment on above: Result Comment: Aver age GFR for 20-29 years old: 116 mL/min/1.73sq m Chronic Kidney Disease: <60 mL/min/1.73sq m Kidney failure: <15 mL/min/1.73sq m eGFR calculated using average adult body mass. Additional eGFR calculator available at: http://www.[employer]/multiple_crcl_2012.htm Performed By: #### B MPX, CBC #### [facility] [address] [facility] [place] [address] [employer] Title Clerk: Remy Haq DO Anion gap [Moles/Vol] 11 mmol/L Normal 9-17 [facility] Comment on above: Performed By: #### B MPX, CBC #### [facility] [place] [address] [employer] Title Clerk: Remy Haq DO Calcium [Mass/Vol] 8.6 mg/dL Normal 8.6-10.4 [facility] Comment on above: Performed By: #### B MPX, CBC #### [facility] [place] [address] [employer] Title Clerk: Remy Haq DO Chloride [Moles/Vol] 100 mmol/L Normal 98-[address] [facility] Comment on above: Performed By: #### B MPX, CBC #### [facility] [place] [address] [employer] Title Clerk: Remy Haq DO CO2 [Moles/Vol] 26 mmol/L Normal 20-31 [facility] Comment on above: Performed By: #### B MPX, CBC #### [facility] [place] [address] [employer] Title Clerk: Remy Haq DO Creatinine [Mass/Vol] 0.62 mg/dL Normal 0.50-0.90 [facility] Comment on above: Performed By: #### B MPX, CBC #### [facility] [place] [address] [employer] Title Clerk: Remy Haq DO GFR, Amer >60 Normal >60 [facility] Comment on above: Performed By: #### B MPX, CBC #### [facility] [address] [place] [address] [employer] Title Clerk: Remy Haq DO GFR,non Amer >60 Normal >[address] [facility] Comment on above: Performed By: #### B MPX, CBC #### [facility] [address] [place] [address] [employer] Title Clerk: Remy Haq DO Glucose [Mass/Vol] 95 mg/dL Normal 70-99 [facility] Comment on above: Performed By: #### B MPX, CBC #### [facility] [address] [place] [address] [employer] Title Clerk: Remy Haq DO Potassium [Moles/Vol] 4.2 mmol/L Normal 3.7-5.3 [facility] Comment on above: Performed By: #### B MPX, CBC #### [facility] [address] [facility] [place] [address] [employer] Title Clerk: Remy Haq DO Sodium [Moles/Vol] 137 mmol/L Normal 135-144 [facility] Comment on above: Performed By: #### B MPX, CBC #### [facility] [address] [place] [address] [employer] Title Clerk: Remy Haq DO Urea nitrogen [Mass/Vol] 11 mg/dL Normal 6-20 [facility] Comment on above: Performed By: #### B MPX, CBC #### [facility] [address] [facility] [place] [address] [employer] Title Clerk: Remy Haq DO BUN/CRE Ratio NOT REPORTED Normal 9-20 [facility] Comment on above: Performed By: #### B MPX, CBC #### [facility] [place] [address] [employer] Title Clerk: Remy Haq DO Staging: NOT REPORTED Normal [facility] Comment on above: Performed By: #### B MPX, CBC #### [facility] [address] [place] [address] [employer] Title Clerk: Remy Haq DO CBCon 02-16-2019 Erythrocyte distribution width (RBC) [Ratio] 16.3 % High 11.5-14.9 [facility] Comment on above: Performed By: #### B MPX, CBC #### [facility] [address] [place] [address] [employer] Title Clerk: Remy Haq DO Hematocrit (Bld) [Volume fraction] 22.4 % Low 36-46 [facility] Comment on above: Performed By: #### B MPX, CBC #### [facility] [address] [place] [address] [employer] Title Clerk: Remy Haq DO Hemoglobin (Bld) [Mass/Vol] 7.6 g/dL Low 12.0-16.0 [facility] Comment on above: Performed By: #### B MPX, CBC #### [facility] [address] [place] [address] [employer] Title Clerk: Remy Haq DO MCH (RBC) [Entitic mass] 29.4 pg Normal 26-34 [facility] Comment on above: Performed By: #### B MPX, CBC #### [facility] [address] [place] [address] [employer] Title Clerk: Remy Haq DO MCHC (RBC) [Mass/Vol] 33.8 g/dL Normal 31-37 [facility] Comment on above: Performed By: #### B MPX, CBC #### [facility] [address] [place] [address] [employer] Title Clerk: Remy Haq DO MCV (RBC) [Entitic vol] 87.1 fL Normal 80-100 [facility] Comment on above: Performed By: #### B MPX, CBC #### [facility] [place] [address] [employer] Title Clerk: Remy Haq DO Platelet mean volume (Bld) [Entitic vol] 6.4 fL Normal 6.0-12.0 [facility] Comment on above: Performed By: #### B MPX, CBC #### [facility] [place] [address] [employer] Title Clerk: Remy Haq DO Platelets (Bld) [#/Vol] 503 10*3/uL High 150-450 [facility] Comment on above: Performed By: #### B MPX, CBC #### [facility] [place] [address] [employer] Title Clerk: Remy Haq DO RBC (Bld) [#/Vol] 2.57 10*6/uL Low 4.0-5.2 [facility] Comment on above: Performed By: #### B MPX, CBC #### [facility] [place] [address] [employer] Title Clerk: Remy Haq DO WBC (Bld) [#/Vol] 7.5 10*3/uL Normal 3.5-11.0 [facility] Comment on above: Performed By: #### B MPX, CBC #### [facility] [place] [address] [employer] Title Clerk: Remy Haq DO NRBC Automated NOT REPORTED Normal [facility] Comment on above: Performed By: #### B MPX, CBC #### [facility] [address] [place] [address] [employer] Title Clerk: Remy Haq DO Basic Metabolic Panel w/ Ref savanah to MGon 02-15-2019 Anion gap [Moles/Vol] 14 mmol/L 9 - 17 mmol/L [place] Bun/Cre Ratio NOT REPORTED [place] Calcium [Mass/Vol] 8.4 mg/dL Low 8.6 - 10. 4 mg/dL [place] Chloride [Moles/Vol] 102 mmol/L 98 - 10 7 mmol/L [place] CO2 [Moles/Vol] 24 mmol/L 20 - 31 mmol/L [place] Creatinine [Mass/Vol] 0.57 mg/dL 0.5 - 0.9 mg/dL [place] GFR >60 >60 mL/min [place] GFR Non- >60 >60 mL/min [place] GFR/1.73 sq M predicted among non-blacks MDRD (S/P/Bld) [Vol rate/Area] [place] Comment on above: Average GFR for 20-2 9 years old: 116 mL/min/1.73sq m Chronic Kidney Disease: <60 mL/min/1.73sq m Kidney failure: <15 mL/min/1.73sq m eGFR calculated using average adult body mass. Additional eGFR calculator available at: http://www.[employer]/multiple_crcl_2012.htm GFR/1.73 sq M predicted among non-blacks MDRD (S/P/Bld) [Vol rate/Area] NOT REPORTED [place] Glucose [Mass/Vol] 106 mg/dL High 70 - 99 mg/dL [place], [place] Interpretation and review of laboratory results Abnormal [place] Potassium [Moles/Vol] 4.0 mmol/L 3.7 - 5.3 mmol/L [place] Sodium [Moles/Vol] 140 mmol/L 135 - 144 mmol/L [place] Urea nitrogen [Mass/Vol] 11 mg/dL 6 - 20 mg/dL [place] CBC WITH AUTO DIFFERENTIALon 02-15-2019 Basophils (Bld) [#/Vol] 0.06 10*3/uL [place] Basophils/100 WBC (Bld) 1 % 0 - 2 % [place] Differential Type NOT REPORTED [place] Eosinophils (Bld) [#/Vol] 0.33 10*3/uL [place] Eosinophils/100 WBC (Bld) 5 % High 1 - 4 % [place] Erythrocyte distribution width (RBC) [Ratio] 15.3 % High 11.8 - 14.4 % [place] Hematocrit (Bld) [Volume fraction] 24.9 % Low 36.3 - 47.1 % [place] Hemoglobin (Bld) [Mass/Vol] 7.5 g/dL Low 11.9 - 15.1 g/dL [place] Immature granulocytes (Bld) [#/Vol] 1 % High 0 [place] Immature granulocytes (Bld) [#/Vol] 0.10 10*3/uL [place] Interpretation and review of laboratory results Abnormal [place] Lymphocytes (Bld) [#/Vol] 1.93 10*3/uL [place] Lymphocytes/100 WBC (Bld) 27 % 24 - 43 % [place] MCH (RBC) [Entitic mass] 28.2 pg 25.2 - 33.5 pg [place] MCHC (RBC) [Mass/Vol] 30.1 g/dL 28.4 - 34.8 g/dL [place] MCV (RBC) [Entitic vol] 93.6 fL 82.6 - 102.9 fL [place] Monocytes (Bld) [#/Vol] 0.60 10*3/uL [place] Monocytes/100 WBC (Bld) 8 % 3 - 12 % [place] Platelet mean volume (Bld) [Entitic vol] 9.0 fL 8.1 - 13.5 fL [place] Platelets (Bld) [#/Vol] 458 10*3/uL [place] Platelets (Bld) [#/Vol] NOT REPORTED [place] RBC (Bld) [#/Vol] 2.66 10*6/uL Low 3.95 - 5.1 1 m/uL [place] RBC morphology finding Nom (Bld) ANISOCYTOSIS PRESENT [place] Segmented neutrophils/100 WBC (Bld) 58 % 36 - 65 % [place] Segs Absolute 4.19 [place] WBC (Bld) [#/Vol] 7.2 10*3/uL [place] WBC (Bld) [#/Vol] 0.0 10*3/uL 0.0 per 10 0 WBC [place] WBC Morphology NOT REPORTED [place] Basic Metabolic Panel w/ Ref savanah to MGon 02-13-2019 Anion gap [Moles/Vol] 13 mmol/L 9 - 17 mmol/L [place] Bun/Cre Ratio NOT REPORTED [place] Calcium [Mass/Vol] 8.5 mg/dL Low 8.6 - 10. 4 mg/dL [place] Chloride [Moles/Vol] 105 mmol/L 98 - 10 7 mmol/L [place] CO2 [Moles/Vol] 23 mmol/L 20 - 31 mmol/L [place] Creatinine [Mass/Vol] 0.46 mg/dL Low 0.5 - 0.9 mg/dL [place] GFR >60 >60 mL/min [place] GFR Non- >60 >60 mL/min [place] GFR/1.73 sq M predicted among non-blacks MDRD (S/P/Bld) [Vol rate/Area] NOT REPORTED [place] GFR/1.73 sq M predicted among non-blacks MDRD (S/P/Bld) [Vol rate/Area] [place], [place] Comment on above: Average GFR for 20-2 9 years old: 116 mL/min/1.73sq m Chronic Kidney Disease: <60 mL/min/1.73sq m Kidney failure: <15 mL/min/1.73sq m eGFR calculated using average adult body mass. Additional eGFR calculator available at: http://www.[employer]/multiple_crcl_2012.htm Glucose [Mass/Vol] 86 mg/dL 70 - 99 mg/dL [place], [place] Interpretation and review of laboratory results Abnormal [place] Potassium [Moles/Vol] 4.3 mmol/L 3.7 - 5.3 mmol/L [place] Sodium [Moles/Vol] 141 mmol/L 135 - 144 mmol/L [place] Urea nitrogen [Mass/Vol] 9 mg/dL 6 - 20 mg/dL [place] CBC WITH AUTO DIFFERENTIALon 02-13-2019 Basophils (Bld) [#/Vol] 0.06 10*3/uL [place] Basophils/100 WBC (Bld) 1 % 0 - 2 % [place] Differential Type NOT REPORTED [place] Eosinophils (Bld) [#/Vol] 0.40 10*3/uL [place] Eosinophils/100 WBC (Bld) 5 % High 1 - 4 % [place] Erythrocyte distribution width (RBC) [Ratio] 14.8 % High 11.8 - 14.4 % [place] Hematocrit (Bld) [Volume fraction] 25.0 % Low 36.3 - 47.1 % [place] Hemoglobin (Bld) [Mass/Vol] 7.4 g/dL Low 11.9 - 15.1 g/dL [place] Immature granulocytes (Bld) [#/Vol] 2 % High 0 [place] Immature granulocytes (Bld) [#/Vol] 0.14 10*3/uL [place] Interpretation and review of laboratory results Abnormal [place] Lymphocytes (Bld) [#/Vol] 2.18 10*3/uL [place] Lymphocytes/100 WBC (Bld) 25 % 24 - 43 % [place] MCH (RBC) [Entitic mass] 27.1 pg 25.2 - 33.5 pg [place] MCHC (RBC) [Mass/Vol] 29.6 g/dL 28.4 - 34.8 g/dL [place] MCV (RBC) [Entitic vol] 91.6 fL 82.6 - 102.9 fL [place] Monocytes (Bld) [#/Vol] 0.66 10*3/uL [place] Monocytes/100 WBC (Bld) 8 % 3 - 12 % [place] Platelet mean volume (Bld) [Entitic vol] 8.9 fL 8.1 - 13.5 fL [place] Platelets (Bld) [#/Vol] 440 10*3/uL [place] Platelets (Bld) [#/Vol] NOT REPORTED [place] RBC (Bld) [#/Vol] 2.73 10*6/uL Low 3.95 - 5.1 1 m/uL [place] RBC morphology finding Nom (Bld) ANISOCYTOSIS PRESENT [place] Segmented neutrophils/100 WBC (Bld) 61 % 36 - 65 % [place] Segs Absolute 5.37 [place] WBC (Bld) [#/Vol] 0.0 10*3/uL 0.0 per 10 0 WBC [place] WBC (Bld) [#/Vol] 8.8 10*3/uL [place] WBC Morphology NOT REPORTED [place] ECHO Complete 2D W Doppler W Coloron 02-13-2019 Transthoracic Echocardiography Report (TTE) Patient Name DANISHA PERKINS Date of Study 02/13/2019 C Date of 1995 Gender Female Age 23 year(s) Race Unknown Room Number 0240 Height: 65 inch, 165.1 cm Corporate ID [id number] Weight: 301 pounds, 136.5 kg # Patient Acct [id number] BSA: 2.35 m^2 BMI: 50.09 kg/m^2 # MR # [id number] [employer] Kaylen Jasso Interpreting Physician Anthony Keating Fellow Referring Nurse Practitioner Interpreting Referring Physician MICHAEL MURDOCK MD Fellow Type of Study TTE procedure:2D Echocardiogram, M-Mode, Doppler, Color Doppler. Procedure Date Date: 02/13/2019 Start: 08:48 AM Study Location: [facility] Technical Quality: Adequate visualization Indications:Irregula [...] Wall E' velocity:0.17 m/s Lateral Wall E/E':5.8 [facility], [place] Tamir, Mhpn Incoming Cardio Results From [facility] - 02/13/2019 2:01 PM EDT Transthoracic Echocardiography Report (TTE) Patient Name DANISHA PERKINS Date of Study 02/13/2019 C Date of 1995 Gender Female Age 23 year(s) Race Unknown Room Number 0240 Height: 65 inch, 165.1 cm Corporate ID [id number] Weight: 301 pounds, 136.5 kg # Patient Acct [id number] BSA: 2.35 m^2 BMI: 50.09 kg/m^2 # MR # [id number] [employer] Kaylen Jasso Interpreting Physician Anthony Keating Fellow Referring Nurse Practitioner Interpreting Referring Physician MICHAEL MURDOCK MD Fellow Type of Study TTE procedure:2D Echocardiogram, M-Mode, Doppler, Color Doppler. Procedure Date Date: 02/13/2019 Start: 08:48 AM Study Location: [facility] Technical Quality: Adequate visualization Indications:Irregula [...] seen. Signature - Electronically signed by Anthony Keating([facility] physician) on 02/13/2019 02:00 PM - - [...] Wall E' velocity:0.17 m/s Lateral Wall E/E':5.8 [facility], [place] EKG 12 Leadon 02-11-2019 Atrial Rate 99 BPM [facility], [place] P [place] 69 degrees [facility], [place] P-R Interval 136 ms [facility], [place] Q-T Interval 344 ms [facility] QRS Duration 80 ms [facility], [place] QTc Calculation (Bazett) 441 ms [facility] [place], [place] R [place] 16 degrees [facility]- [place], [place] T [place] 4 degrees [facility], [place] Ventricular Rate 99 BPM [facility], [place] Tamir, Mhpn Incoming Ekg Results From [facility] - 02/11/2019 11:00 AM EDT Normal sinus rhythm Cannot rule out Anterior infarct , age undetermined Abnormal ECG When compared with ECG of 31-JAN-2019 19:55, No significant change was found [place] Normal sinus rhythm Cannot rule out Anterior infarct , age undetermined Abnormal ECG When compared with ECG of 31-JAN-2019 19:55, No significant change was found [place] HEMOGLOBIN AND HEMATOCRIT, B LOODon 02-11-2019 Hematocrit (Bld) [Volume fraction] 27.0 % Low 36.3 - 47.1 % [place] Hemoglobin (Bld) [Mass/Vol] 8.3 g/dL Low 11.9 - 15.1 g/dL [place] Interpretation and review of laboratory results Abnormal [place] Microscopic Urinalysison Amorphous, UA NOT REPORTED None [place] Bacteria, UA NOT REPORTED None [place], [place] Casts UA [place] Crystals UA NOT REPORTED None /HPF [place] Epithelial Cells UA 0 TO 2 [place] Mucus, UA NOT REPORTED None [place] Other Observations UA NOT REPORTED NOT REQ. [place] RBC (U) [#/Vol] 5 TO 10 [place], [place] Comment on above: Reference range defi xiomy for non-centrifuged specimen. Renal Epithelial, Urine NOT REPORTED 0 /HPF [place] Trichomonas, UA NOT REPORTED None [place], [place] WBC, UA TOO NUMEROUS TO COUNT [place] Yeast, UA NOT REPORTED None [place] - [place] URINALYSISon 02-11-2019 Bilirubin Urine Negative NEGATIVE [place] Color, UA YELLOW YELLOW [place] Glucose, Ur Negative NEGATIVE [place] Interpretation and review of laboratory results Abnormal [place] Ketones Ql (U) Negative NEGATIVE [place] Leukocyte esterase Test strip Ql (U) LARGE Abnormal NEGATIVE [place] Nitrite, Urine Negative NEGATIVE [place], [place] pH, UA 5.0 [place] Protein (U) [Mass/Vol] Negative NEGATIVE [place] Specific [place], UA 1.013 [place], [place] Turbidity UA CLOUDY Abnormal CLEAR [place] Urinalysis Comments NOT REPORTED [place] Urine Hgb MODERATE Abnormal NEGATIVE [place] Urobilinogen, Urine Normal Normal [place] HEMOGLOBIN AND HEMATOCRIT, B LOODon 02-10-2019 Hematocrit (Bld) [Volume fraction] 22.5 % Low 36.3 - 47.1 % [place] Hemoglobin (Bld) [Mass/Vol] 6.8 g/dL Critically low 11.9 - 15.1 g/dL [place] Interpretation and review of laboratory results Abnormal [place] TYPE AND SCREENon 02-10-2019 ABO/Rh Positive [place], [place] Arm Band Number [id number] [place], [place] Blood product type Nom (BPU) Leukocyte Reduced Red Cell [place] Crossmatch Result COMPATIBLE [facility] Jasmin [place], [place] Dispense Status TRANSFUSED [place] Expiration Date 02/10/2019 [place] Transfusion Status OK TO TRANSFUSE M [place], [place] Unit Divison 0 [place], [place] Unit Number [id number] [place] PELVIS WO CONTRAST Additi onal Contrast?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
== END 2024-08-05 08:00 | disposition home or self-care (01) ==
LOC: US 07:59
PROVIDERS: PCP Nurse Practitioner; Visit Provider Physician Assistant
DX: Z36.89 Encounter for other specified antenatal screening (principal); Z3A.22 22 weeks gestation of pregnancy
CPT/HCPCS: 76805; 76817

== ENCOUNTER 2024-09-09 09:06 | Outpatient (OUT) | payer OTHER, SELFPAY ==
--- OUTSIDE RECORDS SUMMARY | 2024-09-09 09:09 | XMS_ITS | CCD ---
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 8.30 % AC: 16.23 cm; 21 weeks 2 days; 14.90 % FL: 3.66 cm; 21 weeks 4 days; 19.80 % EFW:421.60 g; 10.40 % FL/AC: 22.57 FL/BPD: 76.74 HC/AC: 1.18 GESTATIONAL AGE: Age by EDC: 22 weeks 2 days Age by current US: 21 weeks 1 day MERLINE by current US: 2024-12-15 MERLINE by EDC: 2024-12-07 US/US OB cervical length IMPRESSION: Nonvisualization of the heart and ventricular outflow tracts likely related to positioning Nuchal cord Complete placenta previa BPD at the 3rd percentile *Reference: [employer] Practice Guideline for the performance of Obstetric Ultrasound Examinations, March 21, 2007. Electronically authenticated by: ALEJANDRINA MATHEW Date: 08/05/2024 08:55 Dictated By: Alejandrina Mathew M.D. Signed By: 08/05/24 0858 DD/ 0855 TD/TT: Timing Inspector: [facility] Radiology, Radiologist, MD - 08/05/2024 [place] [address] Ultrasound Report Signed Patient: MADDIE RAMAN MR#: [id number] : 1995 Acct:[id number] Age/Sex: 29 / F ADM Date: 08/05/24 Loc: US Attending Dr: Zoraida Travis Ordering Physician: Zoraida Travis Date of Service: 08/05/24 Procedure(s): US OB cervical length Accession Number(s): [id number] cc: Zoraida Travis; Ally Craig NP [facility] [place] [address] Patient Name: MADDIE RAMAN MRN: [facility]:[id number] date: 1995 Sex: F Assigned Patient Location: Current Patient Location: Accession/Order Number: [id number] Exam Date: 08/05/2024 08:01 Report Date: 08/05/2024 08:55 At the request of: ZORAIDA TRAVIS Procedure: US OB cervical length EXAMINATION: US OB anatomy, US OB cervical length HISTORY: anatomic survey COMPARISON: No relevant comparison available. TECHNIQUE: Transabdominal sonographic examination was performed for obstetrical and evaluation. FINDINGS: Number: 1 Heart Rate: 144.39 bpm H.B. /min Amniotic Fluid Volume: Subjectively normal Placental Location: Anterior, complete previa. Grade 0. position: Cephalic presentation, longitudinal lie Cervix Length: 5.34 cm , closed Normal anatomy: Lateral ventricles, cerebellum, posterior fossa, nose, lips, orbits, diaphragm, stomach, kidneys, abdominal cord insertion, bladder, umbilical arteries, three-vessel cord, spine, extremities Nonvisualization: Four-chamber heart, RVOT, LVOT Other: Nuchal cord BIOMETRY: BPD: 4.77 cm; 20 weeks 3 days; 3 % HC: 19.08 cm; 21 weeks 2 days; 8.30 % AC: 16.23 cm; 21 weeks 2 days; 14.90 % FL: 3.66 cm; 21 weeks 4 days; 19.80 % EFW:421.60 g; 10.40 % FL/AC: 22.57 FL/BPD: 76.74 HC/AC: 1.18 GESTATIONAL AGE: Age by EDC: 22 weeks 2 days Age by current US: 21 weeks 1 day MERLINE by current US: 2024-12-15 MERLINE by EDC: 2024-12-07 US/US OB cervical length IMPRESSION: Nonvisualization of the heart and ventricular outflow tracts likely related to positioning Nuchal cord Complete placenta previa BPD at the 3rd percentile *Reference: [employer] Practice Guideline for the performance of Obstetric Ultrasound Examinations, March 21, 2007. Electronically authenticated by: ALEJANDRINA MATHEW Date: 08/05/2024 08:55 Dictated By: Alejandrina Mathew M.D. Signed By: 08/05/2458 DD/ TD/TT: Timing Inspector: SLIME FALCON,ARLETTEIMA HPV,AGE GDLNon AGE GDLN ACOG TESTING Note . [facility] Comment on above: TESTS RESULT FLAG UN ITS REF RANGE LAB Clinician Provided Cytology Information Source.............Cervix Other.............. No. of containers..01 ThinPrep Vial Age Algo ACOG Theodora... FLAG LEGEND: L-Low Normal,H-High Normal,LL-Alert Low,HH-Alert High <-Panic Low,>-Panic High,A-Abnormal,AA-Critical Abnormal Performed at: 01 =G [address] [place] [address] Otilia Marquis MD, IGP, RFX APTIMA HPV ASCU Note . [facility] Comment on above: TESTS RESULT FLAG UN ITS REF RANGE LAB DIAGNOSIS: 02 NEGATIVE FOR INTRAEPITHELIAL LESION OR MALIGNANCY. Specimen adequacy: 02 Satisfactory for evaluation. Endocervical and/or squamous metaplastic cells (endocervical component) are present. Performed by: 02 Maritza Bliss, Refined Syrup Operator ([facility]) . 02 Note: Note 03 The [...] <-Panic Low,>-Panic High,A-Abnormal,AA-Critical Abnormal Performed at: [address] [place] [address] [place] [address] Kyra Flores PhD, [address] [address] Otilia Marquis MD, Performed at: =[facility] [address] [id number] Neighborhood Coordinator: Otilia Marquis MD, Phone: [phone] Performed at: [address], [place] [id number] Neighborhood Coordinator: Kyra Flores PhD, Phone: [phone] [facility] RECURRENT VAGINITIS (HTRX)on 08-02-2024 AT[address]UM VAGINAE 21.[address] [facility] ATOPOBIUM VAGINAE Detected Abnormal [facility] BVAB 2,3 (BACTERIAL VAGINOSIS ASSOCIATED BACTERIA 2, 3); MOBILUNCUS SPP 18.822 Abnormal [facility] BVAB 2,3 (BACTERIAL VAGINOSIS ASSOCIATED BACTERIA 2, 3); MOBILUNCUS SPP Detected Abnormal [facility] ROCÍO ALBICANS, PARAPSILOSIS, TROPICALIS 0 [facility] ROCÍO ALBICANS, PARAPSILOSIS, TROPICALIS Not detected [facility] ROCÍO GLABRATA 0 [facility] ROCÍO GLABRATA Not detected [facility] ROCÍO KRUSEI 0 [facility] ROCÍO KRUSEI Not detected [facility] CHLAMYDIA TRACHOMATIS 0 [facility] CHLAMYDIA TRACHOMATIS Not detected [facility] ERMB, C; MEFA 21.66 Abnormal [facility] ERMB, C; MEFA Detected Abnormal [facility] GARDNERELLA VAGINALIS 22.792 Abnormal [facility] S Healthcare GARDNERELLA VAGINALIS Detected Abnormal [facility] Interpretation and review of laboratory results Abnormal [facility] MEGASPHAERA (TYPES 1, 2) 17.674 Abnormal [facility] MEGASPHAERA (TYPES 1, 2) Detected Abnormal [facility] MYCOPLASMA GENITALIUM 0 [facility] MYCOPLASMA GENITALIUM Not detected [facility] NEISSERIA GONORRHOEAE 0 [facility] NEISSERIA GONORRHOEAE Not detected N [facility] TRICHOMONAS VAGINALIS 0 [facility] TRICHOMONAS VAGINALIS Not detected N [facility] Urinalysis macro (dipstick) panel (U)on 07-31-2024 Bilirubin, UA Positive Negative - 4(70) +++ mg/dL [facility] Comment on above: small Blood, UA Negative Negative - 50 Miguel Angel/mcL [facility] Clarity, UA Cloudy [facility] Color, UA Dark Tiffany [facility] Glucose, UA Negative Negative - 1999(110) ++++ mg/dL [facility] Interpretation and review of laboratory results Abnormal [facility] Ketones, UA Negative Negative - 160(16) ++++ mg/dL [facility] Leukocytes, UA Negative Negative - 500+++ Eleonora/mcL [facility] Nitrite, UA Negative Negative - Positive [facility] pH, UA 6 5 - 9 [facility] Protein, UA Positive Negative - 1999(20) ++++ mg/dL [facility] Comment on above: 30 mg Spec Grav, UA 1.03 1 - 1.03 [facility] Urobilinogen, UA 1.0 0.2 - 12 mg/dL [facility] AFP, SERUM, OPEN SPINA BIFID Aon 07-07-[address] [facility] AFP VALUE 31.8 ng/mL . [facility] COMMENT: Comment . [facility] Comment on above: Yanni West , Ph.D., [facility] Director References: Available Upon Request. Multiples Of Median Cutoffs For AFP Elevations Alonso 2.5 Black 2.8 IDD 2.0 Twins 4.5 Abbreviation Definitions IDD - Insulin Dep Diabetes OSBR - Open Spina Bifida Risk For further inquiries contact [facility] at [phone]. This test was developed and its performance characteristics determined by [employer]. It has not been cleared or approved by the Food and Drug Administration. Performed at: [facility] [place], [place] [id number] Neighborhood Coordinator: Sinai Arellano [facility], Phone: [phone] GEST. AGE ON COLLECTION DATE 17.[address] [facility] GESTAT. AGE BASED ON Ultrasound . [facility] Comment on above: 15:0 on 06/15/2024 Recalculations are not recommended when gestational dating by LMP and ultrasound are within 10 days. INSULIN DEP DIABETES No . [facility] INTERPRETATION Comment . [facility] Comment on above: Interpretation: Scre en Negative [...] Customer Services to discuss available options. The [employer] recommends amniocentesis be offered to women age 35 and older. MATERNAL [age] MERLINE 29.[address] [facility] MULTIPLE GESTATION No . [facility] [place] [address] [place] [address] [address] [facility] RACE . [facility] RESULTS Report . [facility] TEST RESULTS: Negative . [facility] WEIGHT [facility] . [facility] [id number] [facility] ULTRASOUND [id number] 15 N 1 Y 237 N N N N N [facility] Urinalysis macro (dipstick) panel (U)on 06-15-2024 Bilirubin, UA Negative Negative - 4(70) +++ mg/dL [facility] Blood, UA Negative Negative - 50 Miguel Angel/mcL [facility] Clarity, UA Clear [facility] Color, UA Yellow [facility] Glucose, UA Negative Negative - 2000(110) ++++ mg/dL [facility] Interpretation and review of laboratory results Abnormal [facility] Ketones, UA Negative Negative - 160(16) ++++ mg/dL [facility] Leukocytes, UA Few Negative - 500+++ Eleonora/mcL [facility] Comment on above: small Nitrite, UA Negative Negative - Positive [facility] pH, UA 7 5 - 9 [facility] Protein, UA Negative Negative - 2000(20) ++++ mg/dL [facility] Spec Grav, UA 1.025 1 - 1.03 [facility] Urobilinogen, UA 2.0 0.2 - 12 mg/dL [facility] BOX TESTon 06-06-2024 BOX TEST SENT OUT [facility] BOX1 [facility] BOX2 06/06/24 [facility] HCG ( test) Ql (U)o n 05-29-2024 Interpretation and review of laboratory results Abnormal [facility] Preg Test, Ur Positive Negative [facility] Urinalysis macro (dipstick) panel (U)on 05-29-2024 Bilirubin, UA Negative Negative - 4(70) +++ mg/dL [facility] Blood, UA Negative Negative - 50 Miguel Angel/mcL [facility] Clarity, UA Clear [facility] Color, UA Yellow [facility] Glucose, UA Negative Negative - 2000(110) ++++ mg/dL [facility] Interpretation and review of laboratory results Abnormal [facility] Ketones, UA Positive Negative - 160(16) ++++ mg/dL [facility] Comment on above: trace Leukocytes, UA Negative Negative - 500+++ Eleonora/mcL [facility] Nitrite, UA Negative Negative - Positive [facility] pH, UA 6.5 5 - 9 [facility] Protein, UA Negative Negative - 2000(20) ++++ mg/dL [facility] Spec Grav, UA 1.02 1 - 1.03 [facility] Urobilinogen, UA 1.0 0.2 - 12 mg/dL [facility] PREG QUANT HCGon 05-12- 024 HCG QUANTITATIVE 42870 mIU/mL [facility] Comment on above: 5-50 0.2-1 WEEK 50-500 1-2 WEEKS 100-5,000 2-3 WEEKS 500-10,000 3-4 WEEKS 1,000-50,000 4-5 WEEKS 10,000-100,000 5-6 WEEKS 15,000-200,000 6-8 WEEKS 10,000-100,000 2[facility] 05-10- 024 HCG QUANTITATIVE 60005 mIU/mL [facility] Comment on above: 5-50 0.2-1 WEEK 50-500 1-2 WEEKS 100-5,000 2-3 WEEKS 500-10,000 3-4 WEEKS 1,000-50,000 4-5 WEEKS 10,000-100,000 5-6 WEEKS 15,000-200,000 6-8 WEEKS 10,000-100,000 2-3 MONTHS [facility] PREG QUANT HCGon 11-18-2 024 HCG QUANTITATIVE 62694 mIU/mL [facility] Comment on above: 5-50 0.2-1 WEEK 50-500 1-2 WEEKS 100-5,000 2-3 WEEKS 500-10,000 3-4 WEEKS 1,000-50,000 4-5 WEEKS 10,000-100,000 5-6 WEEKS 15,000-200,000 6-8 WEEKS 10,000-100,000 2-[address] [facility] CBC AND AUTO DIFFon 03-15-20 24 ABSOLUTE BASOPHIL 0.1 X10E9/L Normal 0.0-0.2 [facility] Comment on above: Performed By: #### C BCA, CMP, FEPR, 69054-8, THYR, 2275-09, 2132-02 #### [facility] ([id number]) [address], [address] [place] [address] ABSOLUTE NEUTROPHIL 3.1 X10E9/L Normal 1.5-6.6 [facility] Comment on above: Performed By: #### C BCA, CMP, FEPR, 93833-6, THYR, 2275-09, 2132-02 #### [facility] ([id number]) [address], [address] [place] [address] Basophils/100 WBC (Bld) 1.2 % Normal [facility] Comment on above: Performed By: #### C BCA, CMP, FEPR, 55654-6, THYR, 2275-09, 2132-02 #### [facility] ([id number]) [address], [address] [place] [address] Eosinophils (Bld) [#/Vol] 0.4 10*3/uL Normal 0.0-0.4 [facility] Comment on above: Performed By: #### C BCA, CMP, FEPR, 53734-5, THYR, 2275-09, 2132-02 #### [facility] ([id number]) [address], [address] [place] [address] Eosinophils/100 WBC (Bld) 6.7 % Normal [facility] Comment on above: Performed By: #### C BCA, CMP, FEPR, 66110-0, THYR, 2275-09, 2132-02 #### [facility] ([id number]) [address], [address] [place] [address] Erythrocyte distribution width (RBC) [Ratio] 12.8 % Normal 11.5-15.0 [facility] Comment on above: Performed By: #### C BCA, CMP, FEPR, 61518-5, THYR, 2275-09, 2132-02 #### [facility] ([id number]) [address], [address] [place] [address] Hematocrit (Bld) [Volume fraction] 36.5 % Normal 35-47 [facility] Comment on above: Performed By: #### C BCA, CMP, FEPR, 29409-7, THYR, 2275-09, 2132-02 #### [facility] ([id number]) [address], [address] [place] [address] Hemoglobin (Bld) [Mass/Vol] 12.9 g/dL Normal 11.7-15.5 [facility] Comment on above: Performed By: #### C BCA, CMP, FEPR, 90345-1, THYR, 2275-09, 2132-02 #### [facility] ([id number]) [address], [address] [place] [address] Lymphocytes (Bld) [#/Vol] 1.3 10*3/uL Normal 1.0-3.5 [facility] Comment on above: Performed By: #### C BCA, CMP, FEPR, 12006-6, THYR, 2275-09, 2132-02 #### [facility] ([id number]) [address], [address] [place] [address] Lymphocytes/100 WBC (Bld) 25.0 % Normal [facility] Comment on above: Performed By: #### C BCA, CMP, FEPR, 47024-1, THYR, 2275-09, 2132-02 #### [facility] ([id number]) [address], [address] [place] [address] MCH (RBC) [Entitic mass] 31.2 pg Normal 27-34 [facility] Comment on above: Performed By: #### C BCA, CMP, FEPR, 30657-6, THYR, 2275-09, 2132-02 #### [facility] ([id number]) [address], [address] [place] [address] MCHC (RBC) [Mass/Vol] 35.4 g/dL Normal 32-36 [facility] Comment on above: Performed By: #### C BCA, CMP, FEPR, 37718-3, THYR, 2275-09, 2132-02 #### [facility] ([id number]) [address], [address] [place] [address] MCV (RBC) [Entitic vol] 88 fL Normal 80-100 [facility] Comment on above: Performed By: #### C BCA, CMP, FEPR, 88513-4, THYR, 2275-09, 2132-02 #### [facility] ([id number]) [address], [address] [place] [address] Monocytes (Bld) [#/Vol] 0.4 10*3/uL Normal 0-0.9 [facility] Comment on above: Performed By: #### C BCA, CMP, FEPR, 45050-5, THYR, 2275-09, 2132-02 #### [facility] ([id number]) [address], [address] [place] [address] Monocytes/100 WBC (Bld) 8.4 % Normal [facility] Comment on above: Performed By: #### C BCA, CMP, FEPR, 76007-7, THYR, 2275-09, 2132-02 #### [facility] ([id number]) [address], [address] [place] [address] Neutrophils/100 WBC (Bld) 58.7 % Normal [facility] Comment on above: Performed By: #### C BCA, CMP, FEPR, 65853-0, THYR, 2275-09, 2132-02 #### [facility] ([id number]) [address], [address] [place] [address] Platelet mean volume (Bld) [Entitic vol] 8.5 fL Normal 7-12 [facility] Comment on above: Performed By: #### C BCA, CMP, FEPR, 91480-9, THYR, 2275-09, 2132-02 #### [facility] ([id number]) [address], [address] [address] Platelets (Bld) [#/Vol] 234 10*3/uL Normal 150-450 [facility] Comment on above: Performed By: #### C BCA, CMP, FEPR, 21243-1, THYR, 2275-09, 2132-02 #### [facility] ([id number]) [address], [address] [place] [address] RBC COUNT 4.13 X10E12/L Normal 3.80-5.20 [facility] Comment on above: Performed By: #### C BCA, CMP, FEPR, 92540-8, THYR, 2275-09, 2132-02 #### [facility] ([id number]) [address] [address] [place] [address] WBC (Bld) [#/Vol] 5.3 10*3/uL Normal 4.0-11.0 [facility] Comment on above: Performed By: #### C BCA, CMP, FEPR, 90290-5, THYR, 2275-09, 2132-02 #### [facility] ([id number]) [address] [place] [address] COMPREHENSIVE METABOLIC PANE Amlachi 03-15-2024 Albumin [Mass/Vol] 4.4 g/dL Normal 3.2-5.3 [facility] Comment on above: Performed By: #### C BCA, CMP, FEPR, 46322-8, THYR, 2275-09, 2132-02 #### [facility] ([id number]) [address], [address] [place] [address] ALP [Catalytic activity/Vol] 52 U/L Normal 39-130 [facility] Comment on above: Performed By: #### C BCA, CMP, FEPR, 27012-4, THYR, 2275-, 2132-02 #### [facility] ([id number]) [address], [address] [place] [address] ALT [Catalytic activity/Vol] 16 U/L Normal 0-31 [facility] Comment on above: Performed By: #### C BCA, CMP, FEPR, 78252-6, THYR, 2275-09, 2132-02 #### [facility] ([id number]) [address], [address] [place] [address] Anion gap [Moles/Vol] 9 mmol/L Normal 5-15 [facility] Comment on above: Performed By: #### C BCA, CMP, FEPR, 62806-0, THYR, 2275-, 2132-02 #### [facility] ([id number]) [address], [address] [place] [address] AST [Catalytic activity/Vol] 19 U/L Normal 0-41 [facility] Comment on above: Performed By: #### C BCA, CMP, FEPR, 13568-9, THYR, 2275-, 2132-02 #### [facility] ([id number]) [address], [address] [place] [address] Bilirubin [Mass/Vol] 0.5 mg/dL Normal 0.3-1.2 [facility] Comment on above: Performed By: #### C BCA, CMP, FEPR, 64343-5, THYR, 2275-09, 2132-02 #### [facility] ([id number]) [address], [address] [place] [address] Calcium [Mass/Vol] 9.3 mg/dL Normal 8.5-10.5 [facility] Comment on above: Performed By: #### C BCA, CMP, FEPR, 38900-2, THYR, 2275-09, 2132-02 #### [facility] ([id number]) [address], [address] [place] [address] Chloride [Moles/Vol] 104 mmol/L Normal 98-109 [facility] Comment on above: Performed By: #### C BCA, CMP, FEPR, 70583-2, THYR, 2275-09, 2132-02 #### [facility] ([id number]) [address], [facility] [address] [place] [address] CO2 [Moles/Vol] 27 mmol/L Normal 22-32 [facility] Comment on above: Performed By: #### C BCA, CMP, FEPR, 57336-8, THYR, 2275-09, 2132-02 #### [facility] ([id number]) [address] [address] [place] [address] Creatinine [Mass/Vol] 0.60 mg/dL Normal 0.40-1.00 [facility] Comment on above: Result Comment: METH OD TRACEABLE TO IDMS STANDARD Performed By: #### C BCA, CMP, FEPR, 01935-6, THYR, 2275-09, 2132-02 #### [facility] ([id number]) [address], [address] [place] [address] eGFR (CKD-EPI) NON-RACE DEPENDENT >90 Normal >59 [facility] Comment on above: Result Comment: Reported eGFR is based on the CKD-EPI 2020 equation that does not use a race coefficient. Performed By: #### C BCA, CMP, FEPR, 50432-3, THYR, 22711-22, 2132-02 #### [facility] ([id number]) [address], [address] [place] [address] Glucose [Mass/Vol] 75 mg/dL Normal 65-99 [facility] Comment on above: Performed By: #### C BCA, CMP, FEPR, 63939-5, THYR, 2275-09, 2132-02 #### [facility] ([id number]) [address], [address] [place] [address] Potassium [Moles/Vol] 4.2 mmol/L Normal 3.5-5.0 [facility] Comment on above: Performed By: #### C BCA, CMP, FEPR, 63269-6, THYR, 2275-09, 2132-02 #### [facility] ([id number]) [address], [address] [place] [address] Protein [Mass/Vol] 7.5 g/dL Normal 6.0-8.0 [facility] Comment on above: Performed By: #### C BCA, CMP, FEPR, 88020-2, THYR, 2275-09, 2132-02 #### [facility] ([id number]) [address], [address] [place] [address] Sodium [Moles/Vol] 140 mmol/L Normal 134-146 [facility] Comment on above: Performed By: #### C BCA, CMP, FEPR, 52983-4, THYR, 2275-09, 2132-02 #### [facility] ([id number]) [address], [address] [place] [address] Urea nitrogen [Mass/Vol] 10 mg/dL Normal 5-23 [facility] Comment on above: Performed By: #### C BCA, CMP, FEPR, 35550-2, THYR, 227-4, 2132-02 #### [facility] ([id number]) [address], [address] [place] [address] FERRITINon 03-15-2024 Ferritin [Mass/Vol] 55 ng/mL Normal 11-307 [facility] Comment on above: Performed By: #### C BCA, CMP, FEPR, 35642-2, THYR, 2275-4, 2132-02 #### [facility] ([id number]) [address], [address] [place] [address] IRON PROFILEon 03-15-2024 Iron [Mass/Vol] 126 ug/dL Normal 50-170 [facility] Comment on above: Performed By: #### C BCA, CMP, FEPR, 92948-8, THYR, 2275-09, 2132-02 #### [facility] ([id number]) [address], [address] [place] [address] IRON BINDING 351 ug/dL Normal 250-425 [facility] Comment on above: Performed By: #### C BCA, CMP, FEPR, 50461-1, THYR, 2275-09, 2132-02 #### [facility] - [facility] ([id number]) [address], [address] [place] [address] IRON SATURATION 36 % SATURATION Normal 15-50 [facility] Comment on above: Performed By: #### C BCA, CMP, FEPR, 49817-7, THYR, 2276-4, 2132-02 #### [facility] ([id number]) [address], [address] [place] [address] Lipid 1996 panelon Cholesterol [Mass/Vol] 164 mg/dL Normal 150-200 [facility] Comment on above: Performed By: #### C BCA, CMP, FEPR, 16434-4, THYR, 2275-09, 2132-02 #### [facility] ([id number]) [address], [address] [place] [address] Cholesterol in HDL [Mass/Vol] 57 mg/dL Normal >39 [facility] Comment on above: Result Comment: HDL <40 mg/dL - High Risk HDL > or = 40mg/dL- Desirable HDL >60 mg/dL - Negative Risk Performed By: #### C BCA, CMP, FEPR, 99778-0, THYR, 2275-09, 2132-02 #### [facility] ([id number]) [address], [address] [place] [address] Cholesterol in LDL [Mass/Vol] 84 mg/dL Normal <130 [facility] Comment on above: Result Comment: LDL <100 mg/dL - Desirable LDL >160 mg/dL - High Risk Performed By: #### C BCA, CMP, FEPR, 17875-4, THYR, 2275-09, 2132-02 #### [facility] ([id number]) [address], [address] [place] [address] Cholesterol in VLDL [Mass/Vol] 23 mg/dL Normal 0-30 [facility] Comment on above: Performed By: #### C BCA, CMP, FEPR, 42241-0, THYR, 2275-, 2132-02 #### [facility] ([id number]) [address], [address] [place] [address] CHOLESTEROL:HDL 2.9 Normal 1.0-5.0 [facility] Comment on above: Performed By: #### C BCA, CMP, FEPR, 66036-2, THYR, 2275-09, 2132-02 #### [facility] ([id number]) [address], [address] [place] [address] Triglyceride [Mass/Vol] 115 mg/dL Normal 27-150 [facility] Comment on above: Performed By: #### C BCA, CMP, FEPR, 58449-1, THYR, 2275-09, 2132-02 #### [facility] ([id number]) [address], [address] [place] [address] THYROID PROFILEon 03-15-2024 Free T4 [Mass/Vol] 0.74 ng/dL Normal 0.61-1.60 [facility] Comment on above: Performed By: #### C BCA, CMP, FEPR, 75216-4, THYR, 2275-09, 2132-02 #### [facility] ([id number]) [address], [address] [place] [address] TSH 2.68 uIU/mL Normal 0.49-4.67 [facility] Comment on above: Performed By: #### C BCA, CMP, FEPR, 04096-9, THYR, 2275-09, 2132-02 #### [facility] ([id number]) [address], [address] [place] [address] VITAMIN B12on 03-15-2024 Cobalamin (Vitamin B12) [Mass/Vol] 537 pg/mL Normal 180-914 [facility] Comment on above: Performed By: #### C BCA, CMP, FEPR, 98004-8, THYR, 2275-09, 2132-02 #### [facility] ([id number]) [address] [place] [address] POCT urinalysis dipstick onl yon 01-20-2024 Appearance (U) Cloudy [facility] External Poct Urine Bilirubin Negative [facility] External Poct Urine Blood Trace [facility] External Poct Urine Character Malodorous [facility] External Poct Urine Color Dark Yellow [facility] External Poct Urine Glucose Negative [facility] External Poct Urine Ketones Trace [facility] External Poct Urine Leukocyte Esterase Large [facility] External Poct Urine Nitrite Negative [facility] External Poct Urine Ph 5.[address] [facility] External Poct Urine Protein 3+ [facility] External Poct Urine Specific Oark 1.000 [facility] External Poct Urine Urobilinogen 0.2 [facility] URINE CULTUREon 01-20-2024 Bacteria identified Cx [...] F TRIMETH/SULFAMETHOXA ZOLE R >=16/304 F Resistant [facility] Comment on above: Performed By: #### 6 30-4 #### [facility] ([id number]) [address] [place] [address], [address] [place] [address] Basic Metabolic Vasquez w/Rfx A1 Con 12-08-2023 GFR/1.73 sq M.predicted MDRD (S/P/Bld) [Vol rate/Area] mL/min/{1.73_m2} Normal [facility] Comment on above: Performed By: #### E BS LIPID, EMP BMP #### [facility] [address] [place] [address] [facility] Calcium [Mass/volume] in Ser um or PlasmaOrdered By: Janna Escalera on 12-08-2023 Calcium [Mass/Vol] 9.5 mg/dL Normal 8.6-10.3 [facility] Comment on above: Performed By: #### E BS LIPID, EMP BMP #### [facility] [address] [place] [address] [place] Carbon dioxide, total [Moles /volume] in Serum or PlasmaOrdered By: Janna Escalera on 12-08-2023 CO2 [Moles/Vol] 29.1 mmol/L Normal 21.0-31.0 [facility] Comment on above: Performed By: #### E BS LIPID, EMP BMP #### [facility] [address] [place] [address] [place] Chloride [Moles/volume] in S radha or PlasmaOrdered By: Janna Escalera on 12-08-2023 Chloride [Moles/Vol] 105 mmol/L Normal 98-107 [facility] Comment on above: Performed By: #### E BS LIPID, EMP BMP #### [facility] [address] [place] [address] [place] Cholesterol [Mass/volume] in Serum or PlasmaOrdered By: Janna Escalera on 12-08-2023 Cholesterol [Mass/Vol] 163 mg/dL Normal 140-200 [facility] Comment on above: Chol less than 200 m g/dl low riskChol 201-239 mg/dl borderline riskChol 240 mg/dl and greater high risk Result Comment: Chol less than 200 mg/dl low risk Chol 201-239 mg/dl borderline risk Chol 240 mg/dl and greater high risk Performed By: #### E BS LIPID, EMP BMP #### [facility] [address] [place] [address] [place] Cholesterol in LDL Calc [Mas s/Vol]Ordered By: Janna Escalera on 12-08-2023 Cholesterol in LDL [Mass/Vol] 84 mg/dL 0-100 [facility] Comment on above: LDL ATP III CLASSIFI CATIONLDL less than 100 mg/dL OptimalLDL 100-129 mg/dL Near or above optimalLDL 130-159 mg/dL Borderline highLDL 160-189 mg/dL HighLDL greater than 189 mg/dL Very high Cholesterol in VLDL Calc [Ma ss/Vol]Ordered By: Janna Escalera on 12-08-2023 Cholesterol in VLDL [Mass/Vol] 17 mg/dL [facility] Creatinine [Mass/volume] in Serum or PlasmaOrdered By: Janna Escalera on 12-08-2023 Creatinine [Mass/Vol] 0.69 mg/dL Normal 0.60-1.20 [facility] Comment on above: Performed By: #### E BS LIPID, EMP BMP #### [facility] [address] Glucose [Mass/volume] in Ser um or PlasmaOrdered By: Janna Escalera on 12-08-2023 Glucose [Mass/Vol] 83 mg/dL Normal 70-100 [facility] Comment on above: Performed By: #### E BS LIPID, EMP BMP #### [facility] [address] Lipid Profileon 12-08-2023 LDL Cholesterol,Calculated 84 mg/dL Normal 0-100 [facility] Comment on above: Result Comment: LDL ATP III CLASSIFICATION LDL less than 100 mg/dL Optimal LDL 100-129 mg/dL Near or above optimal LDL 130-159 mg/dL Borderline high LDL 160-189 mg/dL High LDL greater than 189 mg/dL Very high Performed By: #### E BS LIPID, EMP BMP #### [facility] [address] Triglyceride w/Reflex 87 mg/dL Normal 0-149 [facility] Comment on above: Result Comment: TRIG ATP III CLASSIFICATION TRIG less than 150 mg/dL Normal TRIG 150-199 mg/dL Borderline high TRIG 200-500 mg/dL High TRIG greater than 500 mg/dL Very high Standard traceable to the Center for Disease Conrtrol and Prevention (CDC) test method. Performed By: #### E BS LIPID, EMP BMP #### [facility] [address] [place] [id number] [facility] VLDL CHOLESTEROL 17 mg/dL Normal [facility] Comment on above: Performed By: #### E BS LIPID, EMP BMP #### [facility] [address] [place] [id number] [facility] No Panel InformationOrdered By: Janna Escalera on 12-08-2023 Estimated GFR (CKD-EPI) > 60.0 mL/Min [facility] Creatinine Clearance (Chem N/A [facility] Potassium [Moles/volume] in Serum or PlasmaOrdered By: Janna Escalera on 12-08-2023 Potassium [Moles/Vol] 3.6 mmol/L Normal 3.5-5.1 [facility] Comment on above: Performed By: #### E BS LIPID, EMP BMP #### [address] Serum or plasma anion gap de terminationOrdered By: Janna Escalera on 12-08-2023 Anion gap [Moles/Vol] 10.5 mmol/L Normal 6.0-15.0 [facility] Comment on above: Performed By: #### E BS LIPID, EMP BMP #### [address] Serum or plasma high density lipoprotein (HDL) cholesterol measurementOrdered By: Janna Escalera on 12-08-2023 Cholesterol in HDL [Mass/Vol] 62 mg/dL Normal 23-92 [facility] Comment on above: HDL CHOL ATP-III CLA SSIFICATION Cardiovascular RiskHDL > or equal to 60 mg/dL LOWHDL < 40 mg/dL HIGH Result Comment: HDL CHOL ATP-III CLASSIFICATION Cardiovascular Risk HDL > or equal to 60 mg/dL LOW HDL < 40 mg/dL HIGH Performed By: #### E BS LIPID, EMP BMP #### [facility] [address] [place] [address] Serum or plasma total choles terol/high density lipoprotein (HDL) cholesterol mass ratOrdered By: Janna Escalera on 12-08-2023 Cholesterol.total/Chol esterol in HDL [Mass ratio] 2.6 {ratio} Normal <5.0 [facility] Comment on above: Result Comment: PERF ORMED BY: [place] [address] PATHOLOGIST COATING MACHINE OPERATOR HELPER CHERYL GEORGE M.D. Performed By: #### E BS LIPID, EMP BMP #### [address] Sodium [Moles/volume] in Ser um or PlasmaOrdered By: Janna Lali on 12-08-2023 Sodium [Moles/Vol] 141 mmol/L Normal 136-145 [facility] Comment on above: Performed By: #### E BS LIPID, EMP BMP #### [facility] [address] [place] [id number] [facility] Triglyceride [Mass/volume] i n Serum or PlasmaOrdered By: Janna Escalera on 12-08-2023 Triglyceride [Mass/Vol] 87 mg/dL 0-149 [facility] Comment on above: TRIG ATP III CLASSIF ICATIONTRIG less than 150 mg/dL NormalTRIG 150-199 mg/dL Borderline highTRIG 200-500 mg/dL High TRIG greater than 500 mg/dL Very highStandard traceable to the Center for Disease Conrtrol and Prevention (CDC) test method. Urea nitrogen [Mass/volume] in Serum or PlasmaOrdered By: Janna Escalera on 12-08-2023 Urea nitrogen [Mass/Vol] 14 mg/dL Normal 7-25 [facility] Comment on above: Performed By: #### E BS LIPID, EMP BMP #### [facility] [address] MRI HIP RIGHT W CONTRASTon 1 [...] Tucker Ashby MD 06/08/22 Final result Normal [facility] IR INJ ARTHROGRAM HIP RIGHTo n [...] 120.55 uGy cm 2 Views: 3 PROCEDURE: SIGNAL AND COMMUNICATIONS MAINTAINER: Elijah Houston This procedure was performed by [...] Eric Rae MD 06/05/22 Final result Normal [facility] Successful fluoroscopic-guided right hip arthrogram. Patient was transferred to MRI for further imaging. [facility] EXAMINATION: FLUOROSCOPIC GUIDED RIGHT HIP ARTHROGRAM, 06/05/2022 2:50 pm COMPARISON: None. HISTORY: ORDERING SYSTEM PROVIDED HISTORY: Tear of right acetabular labrum, initial encounter TECHNOLOGIST PROVIDED HISTORY: r/o R hip labral tear. MRI ordered Is the patient ?->No FLUOROSCOPY DOSE AND TYPE OR TIME AND EXPOSURES: Fluoro time 0.3 minutes DAP 120.55 uGy cm 2 Views: 3 PROCEDURE: SIGNAL AND COMMUNICATIONS MAINTAINER: Elijah Houston This procedure was performed by [...] and left the Department in stable condition. [facility] Eric Dukes MD - 06/05/2022 EXAMINATION: FLUOROSCOPIC GUIDED RIGHT HIP ARTHROGRAM, 06/05/2022 2:50 pm COMPARISON: None. HISTORY: ORDERING SYSTEM PROVIDED HISTORY: Tear of right acetabular labrum, initial encounter TECHNOLOGIST PROVIDED HISTORY: r/o R hip labral tear. MRI ordered Is the patient ?->No FLUOROSCOPY DOSE AND TYPE OR TIME AND EXPOSURES: Fluoro time 0.3 minutes DAP 120.55 uGy cm 2 Views: 3 PROCEDURE: SIGNAL AND COMMUNICATIONS MAINTAINER: Elijah Houston This procedure was performed by [...] was transferred to MRI for further imaging. [employer] Phone: Radiology Study observation (narrative) [employer] Phone: IR INJ ARTHROGRAM HIP RIGHTO rdered By: Eric Dukes on 06-05-2022 [employer] Phone: 2018 Novel Coronavirus (CoVI D-19), SAMIR LCon 02-20-2021 SARS-CoV-2 (COVID-19) RNA SAMIR+probe Ql (Unsp spec) Not detected Invalid Interpretation Code Not Detected [facility] Comment on above: Result Comment: This nucleic acid amplification test was developed and its performance characteristics determined by [employer]. Nucleic acid amplification tests include RT- PCR [...] detected) result in this assay. Performed At: [address] [id number] Maritza Uribe PhD Ph:[phone] Performed By: #### 6 [id number] #### [facility] (DEFAULT) [address] [place] [address] Consent Formson 02-19-2021 Consent Forms [id number] [facility] [id number] [facility] Lab - Toxicology Resultson 0 02-19-2021 Lab - Toxicology Results [id number] #1.00OTGTIFF [facility] Outside Recordson 02-19-2021 Outside Records [id number] #1.00OTGTIFF [facility] Triage Industrialon 02-20-20 21 Drug Screen Complete Collected Normal [facility] Comment on above: Performed By: #### 1 [id number] #### [facility] (DEFAULT) [address] [place] [id number] ED Clinical Summaryon 2020 ED Clinical Summary [facility] ? Urgent Care [address] [place] [address] Clinical Summary PERSON INFORMATION Name: MADDIE RAMAN Age: 25 Years Sex: FEMALE : 1995 MRN: Acct#: Visit Reason: Medical screening exam; [facility] Arrival: 02/18/2021 13:01:04 Discharge: 02/18/2021 14:21:00 LOS: 000 01:20 Check In: 02/18/2021 13:01:04 Checkout: 02/18/2021 14:21:00 Address: [address] [facility] [address] PCP: Provider, Unlisted PROVIDER INFORMATION Provider Role [...] verbalizes understanding of instructions given Comment: Normal [facility] ED Patient Summaryon 021 ED Patient Summary [facility] ? Urgent Care [address] [place] [address] PATIENT DISCHARGE INSTRUCTIONS Patient Information Name: MADDIE RAMAN Age: 25 Years Date of : 1995 Reason For Visit: Medical screening exam; [facility] Arrival Time: 02/18/2021 13:01:04 Primary Care Physician: Provider, Unlisted Attending Physician: Adam Moncada PA-C Comment: Patient Education Medication Information: The exam and treatment you received today in the [facility] Emergency Department were for an urgent problem and are not intended as complete care. It is important for you to follow up with a doctor, nurse practitioner, or physician?s procurement assistant for ongoing care. If your symptoms [...] so we can reach you if necessary. [facility] Emergency Department has provided you with a complete list of medications post discharge. 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 finisher hot strip/provider of your visit and for further instruction on these medications. Any specific questions regarding your chronic medications and dosages should be discussed with your primary care physician(s) and/or pharmacist. Visit Information Visit Diagnosis: Diagnoses This Visit Medical screening exam ([id number]) If you received any narcotics, sedation, or [...] Reason for Visit: Patient arrives to for [place] physical Allergies: Substance Reaction Symptoms Type Comments [...] for Disease Control and Prevention February 2014 [facility] Urgent Care Note- Provideron 02-18-2021 Urgent Care Note- Provider Patient: MADDIE RAMAN Age: 25 years Sex: FEMALE : 1995 Associated Diagnoses: None Author: Adam Moncada PA-C Basic Information Additional information: Chief Complaint from Nursing Triage Note : Chief Complaint 02/18/2021 13:34 EDT Chief Complaint Patient arrives to for [place] physical . History of Present Illness Patient presents for a pre-employment physical. She is cleared for work. Exam is normal. See scanned document. PSYCHIATRIC: Mood and affect appropriate. Health Status Allergies: Allergic Reactions (Selected) No known allergies. Past Medical/ Family/ Social History Medical history: No active or resolved past medical history items have been selected or recorded.. Surgical history: Cholecystectomy ([id number]). Hip replacement ([id number]). delivery ([id number]). Cardiac ablation system ([id number]).. Family history: No family history items have [...] % Oxygen Therapy Room air . Normal [facility]gent Care [place] 021 Urgent Care Record [facility] ? Urgent Care [address] [place] [address] PATIENT DISCHARGE INSTRUCTIONS Patient Information Name: MADDIE RAMAN Age: 25 Years Date of : 1995 [facility]: 02/18/2021 13:01:04 Primary Care Physician: Provider, Unlisted Attending Physician: Adam Moncada PA-C Comment: Visit Diagnosis: Diagnoses This Visit Medical screening exam ([id number]) If you received any narcotics, sedation, or [...] and treatment you received today in the [facility] Care were for an urgent problem and are not intended as complete care. It is important for you to follow up with a doctor, nurse practitioner, or physician?s procurement assistant for ongoing care. If your symptoms [...] so we can reach you if necessary. [facility] Urgent [facility] has provided you with a complete list of medications post discharge. 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 finisher hot strip/provider of your visit and for further instruction [...] Disease Control and Prevention February 2014 Normal [facility] PROGESTERONEon 05-25-2020 Progesterone 3.3 ng/mL Normal [facility] Comment on above: Result Comment: Foll icular phase 0.1 - 0.9 Luteal phase 1.8 - 23.9 Ovulation phase 0.1 - 12.0 First trimester 11.0 - 44.3 Second trimester 25.4 - 83.3 Third trimester 58.7 - 214.0 Postmenopausal 0.0 - 0.1 Performed By: #### P ROSA #### [facility] [address] [place], [place] [address] Sebastian Ordoñez Hgb/Hcton 02-22-2019 Hematocrit (Bld) [Volume fraction] 28.7 % Low 36-46 [facility] Comment on above: Performed By: #### H H #### [facility] [address] [place] [address] Neighborhood Coordinator: Remy Haq DO Hemoglobin (Bld) [Mass/Vol] 9.4 g/dL Low 12.0-16.0 [facility] Comment on above: Performed By: #### H H #### [facility] [address] [place] [address] Neighborhood Coordinator: Remy Haq DO Basic Metabolic Profon 02-20 (cont.) Normal [facility] Comment on above: Result Comment: Aver age GFR for 20-29 years old: 116 mL/min/1.73sq m Chronic Kidney Disease: <60 mL/min/1.73sq m Kidney failure: <15 mL/min/1.73sq m eGFR calculated using average adult body mass. Additional eGFR calculator available at: http://www.[employer]/multiple_crcl_2012.htm Performed By: #### C JAMA, BMP #### [facility] [address] [facility] [place] [address] Neighborhood Coordinator: Remy Haq DO Anion gap [Moles/Vol] 13 mmol/L Normal 9-17 [facility] Comment on above: Performed By: #### Joy YUN, BMP #### [facility] [facility] [place] [address] Neighborhood Coordinator: Remy Haq DO Calcium [Mass/Vol] 8.8 mg/dL Normal 8.6-10.4 [facility] Comment on above: Performed By: #### Joy YUN, BMP #### [facility] [address] [place] [address] Neighborhood Coordinator: Remy Haq DO Chloride [Moles/Vol] 103 mmol/L Normal 98-107 [facility] Comment on above: Performed By: #### Joy YUN, BMP #### [facility] [address] [place] [address] Neighborhood Coordinator: Fanelly, Remy, DO CO2 [Moles/Vol] 25 mmol/L Normal 20-31 [facility] Comment on above: Performed By: #### C BC, BMP #### [facility] [address] [place] [address] Neighborhood Coordinator: Remy Haq DO Creatinine [Mass/Vol] 0.72 mg/dL Normal 0.50-0.90 [facility] Comment on above: Performed By: #### C BC, BMP #### [facility] [address] [place] [address] Neighborhood Coordinator: Remy Haq DO GFR, Amer >60 Normal >60 [facility] Comment on above: Performed By: #### C BC, BMP #### [facility] [address] [place] [address] Neighborhood Coordinator: Remy Haq DO GFR,non Amer >60 Normal >60 [facility] Comment on above: Performed By: #### C BC, BMP #### [facility] [address] [place] [address] Neighborhood Coordinator: Remy Haq DO Glucose [Mass/Vol] 96 mg/dL Normal 70-99 [facility] Comment on above: Performed By: #### C BC, BMP #### [facility] [facility] [place] [address] Neighborhood Coordinator: Remy Haq DO Potassium [Moles/Vol] 4.0 mmol/L Normal 3.7-5.3 [facility] Comment on above: Performed By: #### C BC, BMP #### [facility] [address] [place] [address] Neighborhood Coordinator: Remy Haq DO Sodium [Moles/Vol] 141 mmol/L Normal 135-144 [facility] Comment on above: Performed By: #### C BC, BMP #### [facility] [address] [facility] [place] [address] Neighborhood Coordinator: Remy Haq DO Urea nitrogen [Mass/Vol] 10 mg/dL Normal 6-20 [facility] Comment on above: Performed By: #### C BC, BMP #### [facility] [place] [address] Neighborhood Coordinator: Remy Haq DO BUN/CRE Ratio NOT REPORTED Normal 9-20 [facility] Comment on above: Performed By: #### C JAMA, BMP #### [facility] [address] [place] [address]. [place] [address] Neighborhood Coordinator: Remy Haq DO Staging: NOT REPORTED Normal [facility] Comment on above: Performed By: #### C JAMA, BMP #### [facility] [address] [place] [address] Neighborhood Coordinator: Remy Haq DO CBCon 02-20-2019 Erythrocyte distribution width (RBC) [Ratio] 16.5 % High 11.5-14.9 [facility] Comment on above: Performed By: #### C JAMA, BMP #### [facility] [facility] [address] [place] [address]. [place] [address] Neighborhood Coordinator: Remy Haq DO Hematocrit (Bld) [Volume fraction] 25.9 % Low 36-46 [facility] Comment on above: Performed By: #### C BC, BMP #### [facility] [address] [place] [address]. [place] [address] Neighborhood Coordinator: Remy Haq DO Hemoglobin (Bld) [Mass/Vol] 8.6 g/dL Low 12.0-16.0 [facility] Comment on above: Performed By: #### C BC, BMP #### [facility] [address] [place] [address] [place] [address] Neighborhood Coordinator: Remy Haq DO MCH (RBC) [Entitic mass] 28.2 pg Normal 26-34 [facility] Comment on above: Performed By: #### Joy YUN, BMP #### [facility] [address] [place] [address] Neighborhood Coordinator: Remy aHq DO MCHC (RBC) [Mass/Vol] 33.0 g/dL Normal 31-37 [facility] Comment on above: Performed By: #### Joy YUN, BMP #### [facility] [address] [place] [address] Neighborhood Coordinator: Remy Haq DO MCV (RBC) [Entitic vol] 85.4 fL Normal 80-100 [facility] Comment on above: Performed By: #### Joy YUN, BMP #### [facility] [address] [place] [address] Neighborhood Coordinator: Remy Haq DO Platelet mean volume (Bld) [Entitic vol] 6.7 fL Normal 6.0-12.0 [facility] Comment on above: Performed By: #### Joy YUN, BMP #### [facility] [address] [place] [address] Neighborhood Coordinator: Remy Haq DO Platelets (Bld) [#/Vol] 419 10*3/uL Normal 150-450 [facility] Comment on above: Performed By: #### Joy YUN, BMP #### [facility] [address] [place] [address] Neighborhood Coordinator: Remy Haq DO RBC (Bld) [#/Vol] 3.03 10*6/uL Low 4.0-5.2 [facility] Comment on above: Performed By: #### Joy YUN, BMP #### [facility] [address] [place] [address] [place] [address] Neighborhood Coordinator: Remy Haq DO WBC (Bld) [#/Vol] 6.3 10*3/uL Normal 3.5-11.0 [facility] Comment on above: Performed By: #### C BC, BMP #### [facility] [address] [place] [address]. [place] [address] Neighborhood Coordinator: Remy Haq DO NRBC Automated NOT REPORTED Normal [facility] Comment on above: Performed By: #### C BC, BMP #### [facility] [address] [place] [address]. [place] [address] Neighborhood Coordinator: Remy Haq DO Hgb/Hcton 02-20-2019 Hematocrit (Bld) [Volume fraction] 29.6 % Low 36-46 [facility] Comment on above: Performed By: #### H H #### [facility] [address] [place] [address]. [place] [address] Neighborhood Coordinator: Remy Haq DO Hemoglobin (Bld) [Mass/Vol] 9.7 g/dL Low 12.0-16.0 [facility] Comment on above: Performed By: #### H H #### [facility] [address] [place] [address]. [place] [address] Neighborhood Coordinator: Remy Haq DO CBCon 02-19-2019 Erythrocyte distribution width (RBC) [Ratio] 16.6 % High 11.5-14.9 [facility] Comment on above: Performed By: #### C BC #### [facility] [address] [place] [address]. [place] [address] Neighborhood Coordinator: Remy Haq DO Hematocrit (Bld) [Volume fraction] 23.2 % Low 36-46 [facility] Comment on above: Performed By: #### C BC #### [facility] [address] [place] [address] [place] [address] Neighborhood Coordinator: Remy Haq DO Hemoglobin (Bld) [Mass/Vol] 7.6 g/dL Low 12.0-16.0 [facility] Comment on above: Performed By: #### C BC #### [facility] [place] [address] Neighborhood Coordinator: Remy Haq DO MCH (RBC) [Entitic mass] 27.8 pg Normal 26-34 [facility] Comment on above: Performed By: #### C BC #### [facility] [address] [place] [address] Neighborhood Coordinator: Remy Haq DO MCHC (RBC) [Mass/Vol] 32.7 g/dL Normal 31-37 [facility] Comment on above: Performed By: #### C BC #### [facility] [address] [place] [address] Neighborhood Coordinator: Remy Haq DO MCV (RBC) [Entitic vol] 85.0 fL Normal 80-100 [facility] Comment on above: Performed By: #### C BC #### [facility] [address] [place] [address] Neighborhood Coordinator: Remy Haq DO Platelet mean volume (Bld) [Entitic vol] 6.5 fL Normal 6.0-12.0 [facility] Comment on above: Performed By: #### C BC #### [facility] [address] [place] [address] Neighborhood Coordinator: Remy Haq DO Platelets (Bld) [#/Vol] 444 10*3/uL Normal 150-450 [facility] Comment on above: Performed By: #### C BC #### [facility] [address] [place], [place] [id number] Neighborhood Coordinator: Remy Haq DO RBC (Bld) [#/Vol] 2.73 10*6/uL Low 4.0-5.2 [facility] Comment on above: Performed By: #### C BC #### [facility] [address] [place] [address] Neighborhood Coordinator: Remy Haq DO WBC (Bld) [#/Vol] 5.1 10*3/uL Normal 3.5-11.0 [facility] Comment on above: Performed By: #### C BC #### [facility] [address] [facility] [place] [address] Neighborhood Coordinator: Remy Haq DO NRBC Automated NOT REPORTED Normal [facility] Comment on above: Performed By: #### C BC #### [facility] [address] [place] [address] Neighborhood Coordinator: Remy Haq DO Type + Crossmatchon 02-20-20 19 Type + Crossmatch Sample Expiration 02/22/2019 Arm Band Number [id number] ABO/Rh(D) A POSITIVE Antibody Screen NEGATIVE Blood Bank Comment Pt's ABRh confirmed as A POS:402 Results Verified BLANCHE, Polyspecific NEGATIVE BLANCHE, Anti-IgG [place]ore[place] Serum NEGATIVE Antibody Ident Anti-[place](A) Present Unit Number [id number] Blood Component Type Leukocyte Reduced Red Cell Unit Division 00 Status of Unit TRANSFUSED Transfusion Status OK TO TRANSFUSE Crossmatch Result COMPATIBLE Normal [facility] Comment on above: Performed By: #### T YX #### [facility] [address] [place] [address] Neighborhood Coordinator: Remy Haq DO Basic Metab w/rfx MGon 02-16 (cont.) Normal [facility] Comment on above: Result Comment: Aver age GFR for 20-29 years old: 116 mL/min/1.73sq m Chronic Kidney Disease: <60 mL/min/1.73sq m Kidney failure: <15 mL/min/1.73sq m eGFR calculated using average adult body mass. Additional eGFR calculator available at: http://www.[employer]/multiple_crcl_2012.htm Performed By: #### B MPX, CBC #### [facility] [address] [facility] [place] [address] Neighborhood Coordinator: Remy Haq DO Anion gap [Moles/Vol] 11 mmol/L Normal 9-17 [facility] Comment on above: Performed By: #### B MPX, CBC #### [facility] [place] [address] Neighborhood Coordinator: Remy Haq DO Calcium [Mass/Vol] 8.6 mg/dL Normal 8.6-10.4 [facility] Comment on above: Performed By: #### B MPX, CBC #### [facility] [place] [address] Neighborhood Coordinator: Remy Haq DO Chloride [Moles/Vol] 100 mmol/L Normal 98-107 [facility] Comment on above: Performed By: #### B MPX, CBC #### [facility] [place] [address] Neighborhood Coordinator: Remy Haq DO CO2 [Moles/Vol] 26 mmol/L Normal 20-31 [facility] Comment on above: Performed By: #### B MPX, CBC #### [facility] [place] [address] Neighborhood Coordinator: Remy Haq DO Creatinine [Mass/Vol] 0.62 mg/dL Normal 0.50-0.90 [facility] Comment on above: Performed By: #### B MPX, CBC #### [facility] [place] [address] Neighborhood Coordinator: Remy Haq DO GFR, Amer >60 Normal >60 [facility] Comment on above: Performed By: #### B MPX, CBC #### [facility] [address] [place] [address] Neighborhood Coordinator: Remy Haq DO GFR,non Amer >60 Normal >60 [facility] Comment on above: Performed By: #### B MPX, CBC #### [facility] [address] [place] [address] Neighborhood Coordinator: Remy Haq DO Glucose [Mass/Vol] 95 mg/dL Normal 70-99 [facility] Comment on above: Performed By: #### B MPX, CBC #### [facility] [address] [place] [address] Neighborhood Coordinator: Remy Haq DO Potassium [Moles/Vol] 4.2 mmol/L Normal 3.7-5.3 [facility] Comment on above: Performed By: #### B MPX, CBC #### [facility] [address] [facility] [place] [address] Neighborhood Coordinator: Remy Haq DO Sodium [Moles/Vol] 137 mmol/L Normal 135-144 [facility] Comment on above: Performed By: #### B MPX, CBC #### [facility] [address] [place] [address] Neighborhood Coordinator: Remy Haq DO Urea nitrogen [Mass/Vol] 11 mg/dL Normal 6-20 [facility] Comment on above: Performed By: #### B MPX, CBC #### [facility] [address] [facility] [place] [address] Neighborhood Coordinator: Remy Haq DO BUN/CRE Ratio NOT REPORTED Normal 9-20 [facility] Comment on above: Performed By: #### B MPX, CBC #### [facility] [place] [address] Neighborhood Coordinator: Remy Haq DO Staging: NOT REPORTED Normal [facility] Comment on above: Performed By: #### B MPX, CBC #### [facility] [address] [place] [address] Neighborhood Coordinator: Remy Haq DO CBCon 02-16-2019 Erythrocyte distribution width (RBC) [Ratio] 16.3 % High 11.5-14.9 [facility] Comment on above: Performed By: #### B MPX, CBC #### [facility] [address] [place] [address] Neighborhood Coordinator: Remy Haq DO Hematocrit (Bld) [Volume fraction] 22.4 % Low 36-46 [facility] Comment on above: Performed By: #### B MPX, CBC #### [facility] [address] [place] [address] Neighborhood Coordinator: Remy Haq DO Hemoglobin (Bld) [Mass/Vol] 7.6 g/dL Low 12.0-16.0 [facility] Comment on above: Performed By: #### B MPX, CBC #### [facility] [address] [place] [address] Neighborhood Coordinator: Remy Haq DO MCH (RBC) [Entitic mass] 29.4 pg Normal 26-34 [facility] Comment on above: Performed By: #### B MPX, CBC #### [facility] [address] [place] [address] Neighborhood Coordinator: Remy Haq DO MCHC (RBC) [Mass/Vol] 33.8 g/dL Normal 31-37 [facility] Comment on above: Performed By: #### B MPX, CBC #### [facility] [address] [place] [address] Neighborhood Coordinator: Remy Haq DO MCV (RBC) [Entitic vol] 87.1 fL Normal 80-100 [facility] Comment on above: Performed By: #### B MPX, CBC #### [facility] [place] [address] Neighborhood Coordinator: Remy Haq DO Platelet mean volume (Bld) [Entitic vol] 6.4 fL Normal 6.0-12.0 [facility] Comment on above: Performed By: #### B MPX, CBC #### [facility] [place] [address] Neighborhood Coordinator: Remy Haq DO Platelets (Bld) [#/Vol] 503 10*3/uL High 150-450 [facility] Comment on above: Performed By: #### B MPX, CBC #### [facility] [place] [address] Neighborhood Coordinator: Remy Haq DO RBC (Bld) [#/Vol] 2.57 10*6/uL Low 4.0-5.2 [facility] Comment on above: Performed By: #### B MPX, CBC #### [facility] [place] [address] Neighborhood Coordinator: Remy Haq DO WBC (Bld) [#/Vol] 7.5 10*3/uL Normal 3.5-11.0 [facility] Comment on above: Performed By: #### B MPX, CBC #### [facility] [place] [address] Neighborhood Coordinator: Remy Haq DO NRBC Automated NOT REPORTED Normal [facility] Comment on above: Performed By: #### B MPX, CBC #### [facility] [address] [place] [address] Neighborhood Coordinator: Remy Haq DO Basic Metabolic Panel w/ Ref savanah to MGon 02-15-2019 Anion gap [Moles/Vol] 14 mmol/L 9 - 17 mmol/L [place] Bun/Cre Ratio NOT REPORTED [place] Calcium [Mass/Vol] 8.4 mg/dL Low 8.6 - 10. 4 mg/dL [place] Chloride [Moles/Vol] 102 mmol/L 98 - 10 7 mmol/L [place] CO2 [Moles/Vol] 24 mmol/L 20 - 31 mmol/L [place] Creatinine [Mass/Vol] 0.57 mg/dL 0.5 - 0.9 mg/dL [place] GFR >60 >60 mL/min [place] GFR Non- >60 >60 mL/min [place] GFR/1.73 sq M predicted among non-blacks MDRD (S/P/Bld) [Vol rate/Area] [place] Comment on above: Average GFR for 20-2 9 years old: 116 mL/min/1.73sq m Chronic Kidney Disease: <60 mL/min/1.73sq m Kidney failure: <15 mL/min/1.73sq m eGFR calculated using average adult body mass. Additional eGFR calculator available at: http://www.[employer]/multiple_crcl_2012.htm GFR/1.73 sq M predicted among non-blacks MDRD (S/P/Bld) [Vol rate/Area] NOT REPORTED [place] Glucose [Mass/Vol] 106 mg/dL High 70 - 99 mg/dL [place] Interpretation and review of laboratory results Abnormal [place] Potassium [Moles/Vol] 4.0 mmol/L 3.7 - 5.3 mmol/L [place] Sodium [Moles/Vol] 140 mmol/L 135 - 144 mmol/L [place] Urea nitrogen [Mass/Vol] 11 mg/dL 6 - 20 mg/dL [place] CBC WITH AUTO DIFFERENTIALon 02-15-2019 Basophils (Bld) [#/Vol] 0.06 10*3/uL [place] Basophils/100 WBC (Bld) 1 % 0 - 2 % [place] Differential Type NOT REPORTED [place] Eosinophils (Bld) [#/Vol] 0.33 10*3/uL [place] Eosinophils/100 WBC (Bld) 5 % High 1 - 4 % [place] Erythrocyte distribution width (RBC) [Ratio] 15.3 % High 11.8 - 14.4 % [place] Hematocrit (Bld) [Volume fraction] 24.9 % Low 36.3 - 47.1 % [place] Hemoglobin (Bld) [Mass/Vol] 7.5 g/dL Low 11.9 - 15.1 g/dL [place] Immature granulocytes (Bld) [#/Vol] 1 % High 0 [place] Immature granulocytes (Bld) [#/Vol] 0.10 10*3/uL [place] Interpretation and review of laboratory results Abnormal [place] Lymphocytes (Bld) [#/Vol] 1.93 10*3/uL [place] Lymphocytes/100 WBC (Bld) 27 % 24 - 43 % [place] MCH (RBC) [Entitic mass] 28.2 pg 25.2 - 33.5 pg [place] MCHC (RBC) [Mass/Vol] 30.1 g/dL 28.4 - 34.8 g/dL [place] MCV (RBC) [Entitic vol] 93.6 fL 82.6 - 102.9 fL [place] Monocytes (Bld) [#/Vol] 0.60 10*3/uL [place] Monocytes/100 WBC (Bld) 8 % 3 - 12 % [place] Platelet mean volume (Bld) [Entitic vol] 9.0 fL 8.1 - 13.5 fL [place] Platelets (Bld) [#/Vol] 458 10*3/uL High [place] Platelets (Bld) [#/Vol] NOT REPORTED [place] RBC (Bld) [#/Vol] 2.66 10*6/uL Low 3.95 - 5.1 1 m/uL [place] RBC morphology finding Nom (Bld) ANISOCYTOSIS PRESENT [place] Segmented neutrophils/100 WBC (Bld) 58 % 36 - 65 % [place] Segs Absolute 4.19 [place] WBC (Bld) [#/Vol] 7.2 10*3/uL [place] WBC (Bld) [#/Vol] 0.0 10*3/uL 0.0 per 10 0 WBC [place] WBC Morphology NOT REPORTED [place] Basic Metabolic Panel w/ Ref savanah to MGon 02-13-2019 Anion gap [Moles/Vol] 13 mmol/L 9 - 17 mmol/L [place] Bun/Cre Ratio NOT REPORTED [place] Calcium [Mass/Vol] 8.5 mg/dL Low 8.6 - 10. 4 mg/dL [place] Chloride [Moles/Vol] 105 mmol/L 98 - 10 7 mmol/L [place] CO2 [Moles/Vol] 23 mmol/L 20 - 31 mmol/L [place] Creatinine [Mass/Vol] 0.46 mg/dL Low 0.5 - 0.9 mg/dL [place] GFR >60 >60 mL/min [place] GFR Non- >60 >60 mL/min [place] GFR/1.73 sq M predicted among non-blacks MDRD (S/P/Bld) [Vol rate/Area] NOT REPORTED [place] GFR/1.73 sq M predicted among non-blacks MDRD (S/P/Bld) [Vol rate/Area] [place] Comment on above: Average GFR for 20-2 9 years old: 116 mL/min/1.73sq m Chronic Kidney Disease: <60 mL/min/1.73sq m Kidney failure: <15 mL/min/1.73sq m eGFR calculated using average adult body mass. Additional eGFR calculator available at: http://www.[employer]/multiple_crcl_2012.htm Glucose [Mass/Vol] 86 mg/dL 70 - 99 mg/dL [place] Interpretation and review of laboratory results Abnormal [place] Potassium [Moles/Vol] 4.3 mmol/L 3.7 - 5.3 mmol/L [place] Sodium [Moles/Vol] 141 mmol/L 135 - 144 mmol/L [place] Urea nitrogen [Mass/Vol] 9 mg/dL 6 - 20 mg/dL [place] CBC WITH AUTO DIFFERENTIALon 02-13-2019 Basophils (Bld) [#/Vol] 0.06 10*3/uL [place] Basophils/100 WBC (Bld) 1 % 0 - 2 % [place] Differential Type NOT REPORTED [place] Eosinophils (Bld) [#/Vol] 0.40 10*3/uL [place] Eosinophils/100 WBC (Bld) 5 % High 1 - 4 % [place] Erythrocyte distribution width (RBC) [Ratio] 14.8 % High 11.8 - 14.4 % [place] Hematocrit (Bld) [Volume fraction] 25.0 % Low 36.3 - 47.1 % [place] Hemoglobin (Bld) [Mass/Vol] 7.4 g/dL Low 11.9 - 15.1 g/dL [place] Immature granulocytes (Bld) [#/Vol] 2 % High 0 [place] Immature granulocytes (Bld) [#/Vol] 0.14 10*3/uL [place] Interpretation and review of laboratory results Abnormal [place] Lymphocytes (Bld) [#/Vol] 2.18 10*3/uL [place] Lymphocytes/100 WBC (Bld) 25 % 24 - 43 % [place] MCH (RBC) [Entitic mass] 27.1 pg 25.2 - 33.5 pg [place] MCHC (RBC) [Mass/Vol] 29.6 g/dL 28.4 - 34.8 g/dL [place] MCV (RBC) [Entitic vol] 91.6 fL 82.6 - 102.9 fL [place] Monocytes (Bld) [#/Vol] 0.66 10*3/uL [place] Monocytes/100 WBC (Bld) 8 % 3 - 12 % [place] Platelet mean volume (Bld) [Entitic vol] 8.9 fL 8.1 - 13.5 fL [place] Platelets (Bld) [#/Vol] 440 10*3/uL [place] Platelets (Bld) [#/Vol] NOT REPORTED [place] RBC (Bld) [#/Vol] 2.73 10*6/uL Low 3.95 - 5.1 1 m/uL [place] RBC morphology finding Nom (Bld) ANISOCYTOSIS PRESENT [place] Segmented neutrophils/100 WBC (Bld) 61 % 36 - 65 % [place] Segs Absolute 5.37 [place] WBC (Bld) [#/Vol] 0.0 10*3/uL 0.0 per 10 0 WBC [place] WBC (Bld) [#/Vol] 8.8 10*3/uL [place] WBC Morphology NOT REPORTED [place] ECHO Complete 2D W Doppler W Coloron 02-13-2019 Transthoracic Echocardiography Report (TTE) Patient Name CECI PERKINS Date of Study 02/13/2019 C Date of 1995 Gender Female Age 23 year(s) Race Unknown Room Number 0240 Height: 65 inch, 165.1 cm Corporate ID [id number] Weight: 301 pounds, 136.5 kg # Patient Acct [id number] BSA: 2.35 m^2 BMI: 50.09 kg/m^2 # MR # [id number] Desktop Analyst Kaylen Jasso Interpreting Physician Anthony Keating Fellow Referring Nurse Practitioner Interpreting Referring Physician MICHAEL MURDOCK MD Fellow Type of Study TTE procedure:2D Echocardiogram, M-Mode, Doppler, Color Doppler. Procedure Date Date: 02/13/2019 Start: 08:48 AM Study Location: [facility] Technical Quality: Adequate visualization Indications:Irregula r [...] seen. Signature Electronically signed by Anthony Keating([facility]) on 02/13/2019 02:00 PM FINDINGS Left [...] Wall E' velocity:0.17 m/s Lateral Wall E/E':5.8 [facility], [place] Tam[place], [facility] Incoming Cardio Results From [facility] - 02/13/2019 2:01 PM EDT Transthoracic Echocardiography Report (TTE) Patient Name CECI PERKINS Date of Study 02/13/2019 C Date of 1995 Gender Female Age 23 year(s) Race Unknown Room Number 0240 Height: 65 inch, 165.1 cm Corporate ID [id number] Weight: 301 pounds, 136.5 kg # Patient Acct [id number] BSA: 2.35 m^2 BMI: 50.09 kg/m^2 # MR # [id number] Desktop Analyst Kaylen Jasso Interpreting Physician Anthony Keating Fellow Referring Nurse Practitioner Interpreting Referring Physician MICHAEL MURDOCK MD Fellow Type of Study TTE procedure:2D Echocardiogram, M-Mode, Doppler, Color Doppler. Procedure Date Date: 02/13/2019 Start: 08:48 AM Study Location: [facility] Technical Quality: Adequate visualization Indications:Irregula r [...] Wall E' velocity:0.17 m/s Lateral Wall E/E':5.8 [facility], [place] EKG 12 Leadon 02-11-2019 Atrial Rate [address] [facility], [place] [address] [facility], [place] P-R Interval 136 ms [facility], [place] Q-T Interval 344 ms [facility] QRS Duration 80 ms [facility], [place] QTc Calculation (Baz[place]) 441 ms [facility] [place], [place] R [place] 16 degrees [facility] [place] [place], [place] T [place] [address] [facility], [place] Ventricular Rate [address] [facility], [place], [facility] [place]coming [place] [facility] [place]/11/[place] 11:00 AM EDT Normal sinus rhythm Cannot rule out Anterior infarct , age undetermined Abnormal ECG When compared with ECG of 31-JAN-2019 19:55, No significant change was found [place] Normal sinus rhythm Cannot rule out Anterior infarct , age undetermined Abnormal ECG When compared with ECG of 31-JAN-2019 19:55, No significant change was found [place] HEMOGLOBIN AND HEMATOCRIT, B LOODon 02-11-2019 Hematocrit (Bld) [Volume fraction] 27.0 % Low 36.3 - 47.1 % [place] Hemoglobin (Bld) [Mass/Vol] 8.3 g/dL Low 11.9 - 15.1 g/dL [place] Interpretation and review of laboratory results Abnormal [place] Microscopic Urinalysison Amorphous, UA NOT REPORTED None [place] Bacteria, UA NOT REPORTED None [place], [place] Casts UA [place] Crystals UA NOT REPORTED None /HPF [place] Epithelial Cells UA 0 TO 2 [place] Mucus, UA NOT REPORTED None [place] Other Observations UA NOT REPORTED NOT REQ. M [place] RBC (U) [#/Vol] 5 TO 10 [place] Comment on above: Reference range defi xiomy for non-centrifuged specimen. Renal Epithelial, Urine NOT REPORTED 0 /HPF [place] Trichomonas, UA NOT REPORTED None [place] WBC, UA TOO NUMEROUS TO COUNT [place] Yeast, UA NOT REPORTED None [place] - [place] URINALYSISon 02-11-2019 Bilirubin Urine Negative NEGATIVE [place] Color, UA YELLOW YELLOW [place] Glucose, Ur Negative NEGATIVE [place] Interpretation and review of laboratory results Abnormal [place] Ketones Ql (U) Negative NEGATIVE [place] Leukocyte esterase Test strip Ql (U) LARGE Abnormal NEGATIVE [place] Nitrite, Urine Negative NEGATIVE [place] pH, UA 5.0 [place] Protein (U) [Mass/Vol] Negative NEGATIVE [place] Specific [place], UA 1.013 [place] Turbidity UA CLOUDY Abnormal CLEAR [place] Urinalysis Comments NOT REPORTED [place] Urine Hgb MODERATE Abnormal NEGATIVE [place] Urobilinogen, Urine Normal Normal [place] HEMOGLOBIN AND HEMATOCRIT, B LOODon 02-10-2019 Hematocrit (Bld) [Volume fraction] 22.5 % Low 36.3 - 47.1 % [place] Hemoglobin (Bld) [Mass/Vol] 6.8 g/dL Critically low 11.9 - 15.1 g/dL [place] Interpretation and review of laboratory results Abnormal [place] TYPE AND SCREENon 02-10-2019 ABO/Rh Positive [place], [place] Arm Band Number [id number] [place] Blood product type Nom (BPU) Leukocyte Reduced Red Cell [place], [place] Crossmatch Result COMPATIBLE [facility] Jasmin [place] Dispense Status TRANSFUSED [place], [place] Expiration Date 02/10/2019 [place] Transfusion Status OK TO TRANSFUSE M [place], [place] Unit Divison 0 [place], [place] Unit Number [id number] [place], [place] CT PELVIS WO CONTRAST Additi onal Contrast? Noneon 02-09-2019 Tamir, Mhpn Incoming Radiant Results From Enliken/Pacs - 02/09/2019 12:47 PM EDT EXAMINATION: CT [...] extends anterior to the inferior pubic ramus. [facility], [place] EXAMINATION: CT OF THE PELVIS WITHOUT CONTRAST [...] chris edema and small foci of air. [facility], [place] 1. Improved alignment of the right posterior wall acetabular fracture status post ORIF. 2. Small intra-articular right hip loose bodies. 3. The long screw extends anterior to the inferior pubic ramus. [facility], [place] HEMOGLOBIN AND HEMATOCRIT, B LOODon 02-09-2019 Hematocrit (Bld) [Volume fraction] 19.2 % Low 36.3 - 47.1 % [place] Hemoglobin (Bld) [Mass/Vol] 5.9 g/dL Critically low 11.9 - 15.1 g/dL [place], [place] Comment on above: TEST CONFIRMED Interpretation and review of laboratory results Abnormal [place] Hematocrit (Bld) [Volume fraction] 21.2 % Low 36.3 - 47.1 % [place] Hemoglobin (Bld) [Mass/Vol] 6.6 g/dL Critically low 11.9 - 15.1 g/dL [place] Comment on above: TEST CONFIRMED Interpretation and review of laboratory results Abnormal [place] Hematocrit (Bld) [Volume fraction] 23.6 % Low 36.3 - 47.1 % [place] Hemoglobin (Bld) [Mass/Vol] 7.2 g/dL Low 11.9 - 15.1 g/dL [place] Interpretation and review of laboratory results Abnormal [place] CV HGB/HCTon 02-08-2019 Hematocrit (Bld) [Volume fraction] 24.4 % [place] Hemoglobin (Bld) [Mass/Vol] 7.8 g/dL gm/dL [place] POCT urine pregnancyon 02-08 Beta HCG ( test) Ql (U) Negative NEGATIVE [place] Comment on above: Specimens with hCG [...] 02-08-2019 Tamir, pn Incoming Radiant Results From Enliken/[employer]Crow[employer] - 02/08/2019 1:24 PM EDT EXAMINATION: THREE XRAY VIEWS OF THE RIGHT FOOT 02/08/2019 1:12 pm COMPARISON: Right ankle radiographs February 01, 2019 HISTORY: ORDERING SYSTEM PROVIDED HISTORY: Trauma/Fracture TECHNOLOGIST PROVIDED HISTORY: Trauma/Fracture FINDINGS: No fracture or dislocation. IMPRESSION: No acute osseous abnormality [facility] BLAINE [place]EL[place] EXAMINATION: THREE XRAY VIEWS OF THE RIGHT FOOT 02/08/2019 1:12 pm COMPARISON: Right ankle radiographs February 01, 2019 HISTORY: ORDERING SYSTEM PROVIDED HISTORY: Trauma/Fracture TECHNOLOGIST PROVIDED HISTORY: Trauma/Fracture FINDINGS: No fracture or dislocation. [facility] [place] No acute osseous abnormality [facility] [place] XR PELVIS (MIN 3 VIEWS)on EXAMINATION: ONE XRAY VIEW OF THE PELVIS 02/08/2019 12:48 pm COMPARISON: 01/31/2019 HISTORY: ORDERING SYSTEM PROVIDED HISTORY: AP,Judets. Post op pacu TECHNOLOGIST PROVIDED HISTORY: AP,Judets. Post op pacu FINDINGS: Status post internal fixation of the right acetabulum. Anatomic alignment. No hardware complications. [facility] BLAINE KELSEY Tamir, Mhpn Incoming [...] post internal fixation of the right acetabulum [facility] BLAINE KELSEY Anatomic alignment status post internal fixation of the right acetabulum [facility] BLAINE KELSEY Tamir, Mhpn Incoming [...] fluoroscopic image of pelvis as described above. [facility] BLAINE [place] EXAMINATION: ONE XRAY VIEW OF THE PELVIS 02/08/2019 12:39 pm COMPARISON: January 31, 2019 HISTORY: ORDERING SYSTEM PROVIDED HISTORY: intra op TECHNOLOGIST PROVIDED HISTORY: intra op FINDINGS: Intraoperative fluoroscopic image of pelvis demonstrates ORIF of right acetabular fracture with plate and screws, likely in gross anatomic alignment. A Crawley catheter is in place. [place] Intraoperative fluoroscopic image of pelvis as described above. [place] XR WRIST LEFT (MIN 3 VIEWS)o n 02-08-2019 1. Overlying cast/splint material limits evaluation of fine osseous detail. 2. Anatomic alignment of known transversely oriented nondisplaced distal left radius metaphyseal fracture after reduction. 3. No superimposed acute osseous abnormality identified. 4. Soft tissue swelling about the left wrist/distal left forearm. [place] Tamir, Mhpn Incoming Radiant Results From [facility]Crowd - 02/08/2019 6:06 PM EDT EXAMINATION: 3 [...] swelling about the left wrist/distal left forearm. [place] EXAMINATION: 3 XRAY VIEWS OF THE [...] the left wrist and distal left forearm. [place] BASIC METABOLIC PANELon 01-20 Anion gap [Moles/Vol] 12 mmol/L 9 - 17 mmol/L [place] Bun/Cre Ratio NOT REPORTED [place] Calcium [Mass/Vol] 8.5 mg/dL Low 8.6 - 10. 4 mg/dL [place] Chloride [Moles/Vol] 102 mmol/L 98 - 10 7 mmol/L [place] CO2 [Moles/Vol] 24 mmol/L 20 - 31 mmol/L [place] Creatinine [Mass/Vol] 0.54 mg/dL 0.5 - 0.9 mg/dL [place] GFR >60 >60 mL/min [place] GFR Non- >60 >60 mL/min [place] GFR/1.73 sq M predicted among non-blacks MDRD (S/P/Bld) [Vol rate/Area] NOT REPORTED [place] GFR/1.73 sq M predicted among non-blacks MDRD (S/P/Bld) [Vol rate/Area] [place], [place] Comment on above: Average GFR for 20-2 9 years old: 116 mL/min/1.73sq m Chronic Kidney Disease: <60 mL/min/1.73sq m Kidney failure: <15 mL/min/1.73sq m eGFR calculated using average adult body mass. Additional eGFR calculator available at: http://www.ConsiderC/multiple_crcl_2012.htm Glucose [Mass/Vol] 95 mg/dL 70 - 99 mg/dL [place] Interpretation and review of laboratory results Abnormal [place] Potassium [Moles/Vol] 4.6 mmol/L 3.7 - 5.3 mmol/L [place] Sodium [Moles/Vol] 138 mmol/L 135 - 144 mmol/L [place] Urea nitrogen [Mass/Vol] 14 mg/dL 6 - 20 mg/dL [place] BLOOD BANK SPECIMENon 2018 Blood Bank Specimen NOT REPORTED [place], [place] CBCon 02-07-2019 Erythrocyte distribution width (RBC) [Ratio] 13.5 % 11.8 - 14.4 % [place] Hematocrit (Bld) [Volume fraction] 28.1 % Low 36.3 - 47.1 % [place] Hemoglobin (Bld) [Mass/Vol] 8.4 g/dL Low 11.9 - 15.1 g/dL [place] Interpretation and review of laboratory results Abnormal [place] MCH (RBC) [Entitic mass] 26.7 pg 25.2 - 33.5 pg [place] MCHC (RBC) [Mass/Vol] 29.9 g/dL 28.4 - 34.8 g/dL [place] MCV (RBC) [Entitic vol] 89.2 fL 82.6 - 102.9 fL [place] Platelet mean volume (Bld) [Entitic vol] 8.6 fL 8.1 - 13.5 fL [place] Platelets (Bld) [#/Vol] 555 10*3/uL [place] RBC (Bld) [#/Vol] 3.15 10*6/uL Low 3.95 - 5.1 1 m/uL [place] WBC (Bld) [#/Vol] 0.0 10*3/uL 0.0 per 10 0 WBC [place] WBC (Bld) [#/Vol] 8.0 10*3/uL [place] HEMOGLOBIN AND HEMATOCRIT, B LOODon 02-05-2019 Hematocrit (Bld) [Volume fraction] 28.8 % Low 36.3 - 47.1 % [place] Hemoglobin (Bld) [Mass/Vol] 8.6 g/dL Low 11.9 - 15.1 g/dL [place] Interpretation and review of laboratory results Abnormal [place] Basic Metabolic Panel w/ Ref savanah to MGon 02-04-2019 Anion gap [Moles/Vol] 11 mmol/L 9 - 17 mmol/L [place] Bun/Cre Ratio NOT REPORTED [place] Calcium [Mass/Vol] 8.5 mg/dL Low 8.6 - 10. 4 mg/dL [place] Chloride [Moles/Vol] 108 mmol/L High 98 - 10 7 mmol/L [place] CO2 [Moles/Vol] 23 mmol/L 20 - 31 mmol/L [place] Creatinine [Mass/Vol] 0.52 mg/dL 0.5 - 0.9 mg/dL [place] GFR >60 >60 mL/min [place] GFR Non- >60 >60 mL/min [place] GFR/1.73 sq M predicted among non-blacks MDRD (S/P/Bld) [Vol rate/Area] NOT REPORTED [place] GFR/1.73 sq M predicted among non-blacks MDRD (S/P/Bld) [Vol rate/Area] [place], [place] Comment on above: Average GFR for 20-2 9 years old: 116 mL/min/1.73sq m Chronic Kidney Disease: <60 mL/min/1.73sq m Kidney failure: <15 mL/min/1.73sq m eGFR calculated using average adult body mass. Additional eGFR calculator available at: http://www.ConsiderC/multiple_crcl_2012.htm Glucose [Mass/Vol] 93 mg/dL 70 - 99 mg/dL [place] Interpretation and review of laboratory results Abnormal [place] Potassium [Moles/Vol] 4.7 mmol/L 3.7 - 5.3 mmol/L [place] Sodium [Moles/Vol] 142 mmol/L 135 - 144 mmol/L [place] Urea nitrogen [Mass/Vol] 9 mg/dL 6 - 20 mg/dL [place] CBCon 02-04-2019 Erythrocyte distribution width (RBC) [Ratio] 13.6 % 11.8 - 14.4 % [place] Hematocrit (Bld) [Volume fraction] 28.6 % Low 36.3 - 47.1 % [place] Hemoglobin (Bld) [Mass/Vol] 8.4 g/dL Low 11.9 - 15.1 g/dL [place] Interpretation and review of laboratory results Abnormal [place] MCH (RBC) [Entitic mass] 27.5 pg 25.2 - 33.5 pg [place] MCHC (RBC) [Mass/Vol] 29.4 g/dL 28.4 - 34.8 g/dL [place] MCV (RBC) [Entitic vol] 93.5 fL 82.6 - 102.9 fL [place] Platelet mean volume (Bld) [Entitic vol] 9.1 fL 8.1 - 13.5 fL [place] Platelets (Bld) [#/Vol] 622 10*3/uL [place] RBC (Bld) [#/Vol] 3.06 10*6/uL Low 3.95 - 5.1 1 m/uL [place] WBC (Bld) [#/Vol] 8.2 10*3/uL [place] WBC (Bld) [#/Vol] 0.0 10*3/uL 0.0 per 10 0 WBC [place] Basic Metabolic Panelon 01-19 Anion gap [Moles/Vol] 15 mmol/L 9 - 17 mmol/L [place] Bun/Cre Ratio NOT REPORTED [place] Calcium [Mass/Vol] 6.8 mg/dL Low 8.6 - 10. 4 mg/dL [place] Chloride [Moles/Vol] 98 mmol/L 98 - 10 7 mmol/L [place] CO2 [Moles/Vol] 22 mmol/L 20 - 31 mmol/L [place] Creatinine [Mass/Vol] 0.52 mg/dL 0.5 - 0.9 mg/dL [place] GFR >60 >60 mL/min [place] GFR Non- >60 >60 mL/min [place] GFR/1.73 sq M predicted among non-blacks MDRD (S/P/Bld) [Vol rate/Area] [place], [place] Comment on above: Average GFR for 20-2 9 years old: 116 mL/min/1.73sq m Chronic Kidney Disease: <60 mL/min/1.73sq m Kidney failure: <15 mL/min/1.73sq m eGFR calculated using average adult body mass. Additional eGFR calculator available at: http://www.ConsiderC/multiple_crcl_2012.htm GFR/1.73 sq M predicted among non-blacks MDRD (S/P/Bld) [Vol rate/Area] NOT REPORTED [place], [place] Glucose [Mass/Vol] 106 mg/dL High 70 - 99 mg/dL [place] Interpretation and review of laboratory results Abnormal [place] Potassium [Moles/Vol] 3.4 mmol/L Low 3.7 - 5.3 mmol/L [place] Sodium [Moles/Vol] 135 mmol/L 135 - 144 mmol/L [place] Urea nitrogen [Mass/Vol] 4 mg/dL Low 6 - 20 mg/dL [place] Hemoglobin and hematocrit, b loodon 02-02-2019 Hematocrit (Bld) [Volume fraction] 26.1 % Low 36.3 - 47.1 % [place] Hemoglobin (Bld) [Mass/Vol] 8.2 g/dL Low 11.9 - 15.1 g/dL [place] Interpretation and review of laboratory results Abnormal [place] MAGNESIUMon 02-02-2019 Interpretation and review of laboratory results Abnormal [place] Magnesium [Mass/Vol] 5.3 mg/dL Critically high 1.6 - 2.6 mg/dL [place] Interpretation and review of laboratory results Abnormal [place] Magnesium [Mass/Vol] 4.9 mg/dL High 1.6 - 2 .6 mg/dL [place] MRSA DNA Probe, Nasalon 01-19 MRSA, DNA, Nasal NEGATIVE: MRSA DNA not detected by nucleic acid amplification. NEGATIVE: MRSA DNA not detected by nucleic acid amplificati [place], [place] Comment on above: Results should be used as an adjunct to nosocomial control efforts to identify patients needing enhanced precautions. The test is not intended to identify patients with staphylococcal infections. Results should not be used to guide or monitor treatment for MRSA infections. Specimen Description .NASAL SWAB [place], [place] Otheron 02-02-2019 Tamir, Mhpn Incoming Radiant Results From TIKI.VNcribe/Pacs - 02/02/2019 9:43 PM EDT EXAMINATION: TWO [...] asymmetry of the knee joint as described. [place] No acute fracture of the left knee or left tibia/fibula Slight asymmetry of the knee joint as described. [place] EXAMINATION: TWO XRAY VIEWS OF THE [...] the lateral joint space at the knee. [place] POC Glucose Fingerstickon Glucose [Mass/Vol] 103 mg/dL 65 - 105 mg/dL [place] XR FEMUR RIGHT (MIN 2 VIEWS) on 02-02-2019 Tamir, [facility] Incoming Radiant Results From [employer] - 02/02/2019 4:29 PM EDT EXAMINATION: 2 [...] distal femoral diaphysis. 2. Comminuted acetabular fracture. [place], [place] 1. Interval placement of a traction pin in the distal femoral diaphysis. 2. Comminuted acetabular fracture. [place] EXAMINATION: 2 XRAY VIEWS OF THE [...] but appears anatomic on the AP view. [place] CERVICAL SPINE WO CONTRAS Ton 02-01-2019 Tamir, [facility] Incoming Radiant Results From [employer] - 02/01/2019 1:47 AM EDT EXAMINATION: CT [...] No acute abnormality of the cervical spine. [place] No acute abnormality of the cervical spine. [place] EXAMINATION: CT OF THE CERVICAL SPINE [...] There is no prevertebral soft tissue swelling. [place] CYSTOGRAM W CONTRASTon No contrast [...] the posterior acetabular fracture on the right. [place], [place] EXAMINATION: CT CYSTOGRAM 02/01/2019 6:46 am [...] earlier today. HISTORY: ORDERING SYSTEM PROVIDED HISTORY: [employer] s/p iodine TECHNOLOGIST PROVIDED HISTORY: Reason for Exam: r/o [...] within the inferior rectus musculature as well. [facility] [place], [place] Tamir, Mhpn Incoming Radiant Results From Enli[employer]ageCrowd - 02/01/2019 7:41 AM EDT EXAMINATION: CT [...] earlier today. HISTORY: ORDERING SYSTEM PROVIDED HISTORY: [employer] s/p iodine TECHNOLOGIST PROVIDED HISTORY: Reason for Exam: r/o [...] the posterior acetabular fracture on the right. [place] HEAD WO CONTRASTon 2018 EXAMINATION: CT OF THE HEAD WITHOUT CONTRAST 02/01/2019 1:09 am TECHNIQUE: CT of the head was performed without the administration of intravenous contrast. Dose modulation, iterative reconstruction, and/or weight based adjustment of the mA/kV was utilized to reduce the radiation dose to as low as reasonably achievable. COMPARISON: None. HISTORY: ORDERING SYSTEM PROVIDED HISTORY: [facility]CHN[place]IST PROVIDED HISTORY: FINDINGS: BRAIN/VENTRICLES: There is [...] of the visualized skull or soft tissues. [place] No acute intracranial abnormality. Paranasal sinus disease as above. No evidence of an air-fluid level. [place] Tamir, Mhpn Incoming Radiant Results From [employer] - 02/01/2019 1:44 AM EDT EXAMINATION: CT [...] above. No evidence of an air-fluid level. [place] EKG 12 Leadon 02-01-2019 Atrial Rate 114 BPM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 AUGUSTIN Start: 02-15-2019 INCENTIVE SPIROMETRY RT TERRI DEMETRIA Start: 02-15-2019 DIET GENERAL TERRI Castellanos Start: 02-15-2019 ENCOURAGE DEEP BREAT MISSAEL AND COUGHING TERRI AUGUSTIN Start: 02-15-2019 FALL PRECAUTIONS TERRI AUGUSTIN Start: 02-15-2019 GRADUAL COMPRESSION STOCKINGS (ALLYSSA) TERRI AUGUSTIN Start: 02-15-2019 INCENTIVE SPIROMETRY RT TERRI DEMETRIA Start: 02-15-2019 IP CONSULT TO DIETITIAN TERRI AUGUSTIN Start: 02-15-2019 IP CONSULT TO CENTRAL COMMUNICATIONS SPECIALIST AL MEDICINE TERRI AUGUSTIN Start: 02-15-2019 IP CONSULT TO RECREA TION THERAPY TERRI AUGUSTIN Start: 02-15-2019 IP CONSULT TO SOCIAL WORK TERRI AUGUSTIN Start: 02-15-2019 MISCELLANEOUS NURSIN G CARE ORDER (SPECIFY) TERRI AUGUSTIN Start: 02-15-2019 OT EVAL AND TREAT ROSALINDA Antunez AUGUSTIN Start: 02-15-2019 PT EVAL AND TREAT ROSALINDA Y AUGUSTIN Start: 02-15-2019 REASON FOR NO CHEMIC AL VTE PROPHYLAXIS TERRI AUGUSTIN Start: 02-15-2019 FULL CODE TERRI MARIE Jasmin Start: 02-15-2019 MEASURE WEIGHT TERRI Brooke HAH Start: 02-15-2019 NOTIFY PHYSICIAN (SPECIFY) TERRI AUGUSTIN Start: 02-15-2019 PATIENT STATUS (DIRECT) TERRI AUGUSTIN Start: 02-15-2019 REMOVE AND REPLACE T ED HOSE DAILY TERRI AUGUSTIN Start: 02-15-2019 VITAL SIGNS TERRI MARIE H Start: 02-15-2019 ELEVATE HEELS OFF OF BED TERRI DEMETRIA Start: 02-15-2019 HEAD OF BED 60 DEGRE ES OR LESS TERRI DEMETRIA Start: 02-15-2019 NURSING COMMUNICATION S DANI DEMETRIA Start: 02-15-2019 TURN PATIENT TERRI Castellanos Start: 02-15-2019 INCENTIVE SPIROMETRY NURSING TERRI AUGUSTIN Start: 02-15-2019 INITIATE OXYGEN THER APY PROTOCOL TERRI DEMETRIA Start: 02-15-2019 IP CONSULT TO PHYSIC AL MEDICINE REHAB TERRI DEMETRIA Start: 02-15-2019 NON WEIGHT BEARING CHHAYA BRAVO DEMETRIA Start: 02-15-2019 PLACE INTERMITTENT PNEUMATIC COMPRESSION DEVICE TERRI DEMETRIA Start: 02-15-2019 BASIC METABOLIC PANE L W/ REFLEX TO MG FOR LOW K Dragan Ozzie Mj Work Phone: Start: 02-15-2019 Blood count complete auto&auto difrntl wbc Dragan Barker Work Phone: Start: 02-13-2019 BASIC METABOLIC PANE L W/ REFLEX TO MG FOR LOW K Dragan Ozzie Mj Work Phone: Start: 02-13-2019 Blood count complete auto&auto difrntl wbc Dragan Barker Work Phone: Start: 02-13-2019 Echo tthrc r-t 2d w/wom-mode compl spec&colr d Kyrarene Murdock Work Phone: Start: 02-11-2019 Urinalysis microscop ic only Cecilio Richards Work Phone: Start: 02-11-2019 Urnls dip stick/tabl et rgnt auto w/o microscopy Cecilio Richards Work Phone: Start: 02-11-2019 Blood count hemoglobin Cecilio Richards Work Phone: Start: 02-10-2019 Ecg routine ecg w/le ast 12 lds i&r only Amairani Maharaj Work Phone: Start: 02-10-2019 EKG REPORT Hpf Scanni ng Start: 08-23-2019 Transfusion blood/bl ood components Hpf Scanning Start: 02-10-2019 Antibody screen Alejandrina deleon Start: 02-10-2019 Blood count hemoglobin Cecilio Richards Work Phone: Start: 02-10-2019 TRANSFUSE RED BLOOD CELLS Shantal Ramírez Luzma Work Phone: Start: 02-09-2019 Blood count hemoglobin Shahid Shafer Work Phone: Start: 02-09-2019 Blood count hemoglobin Shahid Ramírez Scaff Work Phone: Start: 02-09-[address] Work Phone: Start: 02-08-2019 Radex wrist complete minimum 3 views [employer] Work Phone: Start: 02-08-2019 Ct pelvis w/o contra st material [employer] Work Phone: Start: 02-08-2019 Radex foot complete minimum 3 views [employer] Work Phone: Start: 02-08-2019 Radiologic exam pelv is compl minimum 3 views [employer] Work Phone: Start: 02-08-2019 CV HGB/HCT Donn Benavidez Work Phone: Start: 02-08-2019 Radiologic exam pelv is compl minimum 3 views Mary Pop [employer] Work Phone: Start: 02-08-2019 End: 02-08-2019 ACETABULUM OPEN REDUCTION INTERNAL FIXATION Mary A [employer] Work Phone: Start: 02-08-2019 Urine test visual color cmprsn meths Donn Benavidez Work Phone: Start: 02-07-2019 BLOOD BANK SPECIMEN Ant michelle Benavidez Work Phone: Start: 02-07-2019 Blood typing serologic abo Cecilio Richards Work Phone: Start: 02-07-2019 Basic metabolic pane l calcium total [employer] Work Phone: Start: 02-07-2019 Blood count complete [...] 02-02-2019 Glucose blood reagen t strip Donn Lakeisha Benavidez Work Phone: Start: 02-02-2019 Assay of [...] Landon Work Phone: Start: 02-01-2019 Antibody screen Alejandrina deleon Start: 02-01-2019 Blood typing serologic abo [...] 02-01-2019 25 hydroxy includes fractions if performed [place] [employer] Work Phone: Start: 02-01-2019 Hepatic function panel [place] [employer] Work Phone: Start: 02-01-2019 Ct lumbar spine w/o contrast material Federico Philpot Work Phone: Start: 02-01-2019 Ct thoracic spine w/ o contrast material Federico Philpot Work Phone: Start: 02-01-2019 Ct thorax w/contrast material Federico Philpot Work Phone: Start: 02-01-2019 Ct cervical spine w/ o contrast material Federico Philpot Work Phone: Start: 02-01-2019 Ct head/brain w/o co ntrast material Federico Philpot Work Phone: Start: 02-01-2019 Radiologic examinati on knee 3 views [employer] Work Phone: Start: 02-01-2019 Radex wrist complete minimum 3 views [place] [employer] Work Phone: Start: 02-01-2019 Radex wrist 2 views Mil o Qian Work Phone: Start: 02-01-2019 Radiologic examinati on femur minimum 2 views [employer] Work Phone: Start: 02-01-2019 Radiologic examinati on tibia & fibula 2 views [employer] Work Phone: Start: 02-01-2019 Radex hip unilateral with pelvis 2-3 views [employer] Work Phone: Start: 02-01-2019 PULSE OXIMETRY, CONTINUOUS Federico Philpot Work Phone: Start: 01-31-2019 END TIDAL CO2 CONTINUOUS Federico Elian Work Phone: Start: 01-31-2019 Radex hip unilateral with pelvis 2-3 views Federico Plummer Work Phone: Start: 01-31-2019 Radex wrist complete minimum 3 views Federico Elian Work Phone: Start: 01-31-2019 Basic metabolic pane l calcium total Federico Plummer Work Phone: Start: 01-31-2019 Blood count complete auto&auto difrntl wbc Federico Philpot Work Phone: Start: 01-31-2019 Gonadotropin chorion ic qualitative Federico Plummer Work Phone: Start: 01-31-2019 Ecg routine ecg w/le ast 12 lds i&r only Federico Plummer Work Phone: Start: 01-31-2019 EKG REPORT Hpf Scanni ng Plan of Treatment Date Care Activity Detail Author Start: 07-31-2027 Screening for malign ant neoplasm of cervix Pap Smear [employer] Start: 08-24-2025 Adult BMI Screening [facility] Start: 08-24-2025 Tobacco Screening [facility] Start: 08-24-2025 End: 08-24-2025 US MFM with or without consult US MFM with or without consult Imaging Routine History of sleeve gastrectomy Hx of supraventricular tachycardia Encounter for follow-up ultrasound of anatomy Expected: 08/24/2025 (Approximate), Expires: 08/24/2025 [employer] Work Phone: Comment on above: Expected: 08/24/2025 (Approximate), Expires: 08/24/2025 Start: 03-15-2025 Adult BMI Screening [facility] Start: 03-15-2025 [facility] Screening [facility] Start: 01-19-2025 Tobacco Screening [facility]ening [facility] Start: 12-21-2024 Adult BMI Screening [facility] Screen ing [facility] Start: 12-21-2024 Tobacco Screening Tobacco Screening [facility] Start: 11-18-2024 DTaP,Tdap and Td Vaccines (7 - Td or Tdap) DTaP,Tdap and Td Vaccines (7 - Td or Tdap) [facility] Start: 11-18-2024 DTaP/Tdap/Td vaccine (7 - Td or Tdap) DTaP/Tdap/Td vaccine (7 - Td or Tdap) [facility] Start: 11-18-2024 DTaP/Tdap/Td vaccine (7 - Td) DTaP/Tdap/Td vaccine (7 - Td) [facility] [place] Start: 10-20-2024 End: 10-20-2024 Telemedicine consultation with patient 10/20/2024 9:45 AM EDT Telemedicine Maternal- Medicine at [facility] [address] [place] [phone] Jordan Urbina MD [address], [address] [place] [address] Maternal- Medicine at [facility] Start: 09-28-2024 End: 09-28-2024 Patient encounter procedure 09/28/2024 2:45 PM EDT Appointment [facility] [address] [place] [phone] [facility] Start: 08-29-2024 End: 08-29-2024 Patient encounter procedure 08/29/2024 8:30 AM EDT Routine [facility] [address] [place] [phone] Zoraida Travis PA [address] [place] [address] [facility] Start: 08-25-2024 Adult BMI Screening Adult BMI Screen ing [facility] Start: 08-25-2024 Tobacco Screening Tobacco Screening [facility] Start: 08-24-2024 End: 08-24-2024 Patient encounter procedure [facility] Start: 07-31-2024 End: 07-31-2025 US for US OB 14+ weeks anatomy scan Imaging Routine Screening, , for anatomic survey Expected: 07/31/2024, Expires: 07/31/2025 [facility] Comment on above: Expected: 07/31/2024 , Expires: 07/31/2025 Start: 07-31-2024 End: 07-31-2024 Patient encounter procedure 07/31/2024 11:30 AM EST Routine [facility] [address] [facility] [place] [phone] Zoraida Travis PA [address] [facility] [place] [address] Arrived [facility] Comment on above: [...] [facility] [address] [facility] [place] [address] [facility] Start: 05-29-2024 End: 05-29-2024 Professional / ancillary services management 05/29/2024 8:00 AM EST Ancillary Procedure [facility] [address] [place], [place] [address] [address] [facility] Start: 05-17-2024 End: 05-17-2024 Patient encounter procedure 05/17/2024 7:40 AM EST Office Visit [facility] [address] [place] [phone] Alyl Craig, AUTOMOTIVE DETAILER-RAIL WALKER [address] [facility] [address], [place] [address] [facility] Start: 05-11-2024 End: 05-11-2024 Patient encounter procedure 05/11/2024 1:30 PM EST Office Visit [facility] [address] [place] [phone] Giulia Samayoa [employer]AM[employer] [address] [address] [facility] Start: 03-30-2024 End: 03-30-2024 Patient encounter procedure 03/30/2024 2:00 PM EDT Office Visit [facility] [address] [place] [address] Giulia Samayoa PA-C [address] [facility] [place] [address] [facility] Start: 03-15-2024 End: 03-15-2025 Calcium [Mass/volume] in Serum or Plasma Calcium Lab Routine History of sleeve 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 History of anemia Expected: 03/15/2024, Expires: 03/15/2025 [facility] Work Phone: Comment on above: Expected: 03/15/2024 , Expires: 03/15/2025 Start: 03-15-2024 End: 03-15-2025 CBC W Auto Differential panel - Blood CBC auto differential Lab Routine History of sleeve 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 History of anemia Expected: 03/15/2024, Expires: 03/15/2025 [facility] Comment on above: Expected: 03/15/2024 , Expires: 03/15/2025 Start: 03-15-2024 End: 03-15-2025 Copper, S Copper, S Lab Routine History of sleeve 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 History of anemia Expected: 03/15/2024, Expires: 03/15/2025 [facility] Comment on above: Expected: 03/15/2024 , Expires: 03/15/2025 Start: 03-15-2024 End: 03-15-2025 Cyanocobalamin vitamin b-12 Vitamin B12 Lab Routine History of sleeve 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 History of anemia Expected: 03/15/2024, Expires: 03/15/2025 [facility] Comment on above: Expected: 03/15/2024 , Expires: 03/15/2025 Start: 03-15-2024 End: 03-15-2025 Ferritin [Mass/volume] in Serum or Plasma Ferritin Lab Routine History of sleeve 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 History of anemia Expected: 03/15/2024, Expires: 03/15/2025 [facility] Comment on above: Expected: 03/15/2024 , Expires: 03/15/2025 Start: 03-15-2024 End: 03-15-2025 Folate Folate Lab Routine History of sleeve 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 History of anemia Expected: 03/15/2024, Expires: 03/15/2025 [facility] Comment on above: Expected: 03/15/2024 , Expires: 03/15/2025 Start: 03-15-2024 End: 03-15-2025 Iron and TIBC Iron and TIBC Lab Routine History of sleeve 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 History of anemia Expected: 03/15/2024, Expires: 03/15/2025 [facility] Comment on above: Expected: 03/15/2024 , Expires: 03/15/2025 Start: 03-15-2024 End: 03-15-2025 Liver panel Liver panel Lab Routine History of sleeve 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 History of anemia Expected: 03/15/2024, Expires: 03/15/2025 [facility] Comment on above: Expected: 03/15/2024 , Expires: 03/15/2025 Start: 03-15-2024 End: 03-15-2025 Parathyroid Hormone, intact Parathyroid Hormone, intact Lab Routine History of sleeve 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 History of anemia Expected: 03/15/2024, Expires: 03/15/2025 [facility] Comment on above: Expected: 03/15/2024 , Expires: 03/15/2025 Start: 03-15-2024 End: 03-15-2025 Thiamin (Vitamin B1), WB Thiamin (Vitamin B1), WB Lab Routine History of sleeve 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 History of anemia Expected: 03/15/2024, Expires: 03/15/2025 [facility] Comment on above: Expected: 03/15/2024 , Expires: 03/15/2025 Start: 03-15-2024 End: 03-15-2025 Vitamin A (Retinol) Vitamin A (Retinol) Lab Routine History of sleeve 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 History of anemia Expected: 03/15/2024, Expires: 03/15/2025 [facility] Comment on above: Expected: 03/15/2024 , Expires: 03/15/2025 Start: 03-15-2024 End: 03-15-2025 Vitamin D 25 hydroxy Vitamin D 25 hydroxy Lab Routine History of sleeve 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 History of anemia Expected: 03/15/2024, Expires: 03/15/2025 [facility] Comment on above: Expected: 03/15/2024 , Expires: 03/15/2025 Start: 03-15-2024 End: 03-15-2025 Zinc, Serum Zinc, Serum Lab Routine History of sleeve 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 History of anemia Expected: 03/15/2024, Expires: 03/15/2025 [facility] Comment on above: Expected: 03/15/2024 , Expires: 03/15/2025 Start: 03-15-2024 End: 03-15-2024 Patient encounter procedure 03/15/2024 7:40 AM EDT Office Visit [facility] [address] [place] [address] [place] [phone] Ally Craig, AUTOMOTIVE DETAILER-RAIL WALKER [address] [facility] [address], [place] [address] [facility] Start: 02-20-2024 COVID-19 Vaccine ( season) COVID-19 Vaccine ( season) [facility] Start: 02-20-2024 COVID-19 Vaccine ( season) COVID-19 Vaccine ( season) [facility] Start: 02-20-2024 Influenza vaccination [facility] Start: 01-19-2024 End: 01-19-2024 Patient encounter procedure 01/19/2024 10:20 AM EDT Office Visit [facility] [address] [place] [address] [place] [phone] Ally Craig, AUTOMOTIVE DETAILER-RAIL WALKER [address], [place], [place] [phone] [facility] Start: 11-16-2023 End: 11-16-2023 Patient encounter procedure 11/16/2023 10:00 AM EDT Office Visit [facility] [address] [place] [phone] Giulia Samayoa PAMike[employer] [address] [facility] [address] [place] [address] [facility] Start: 11-10-2023 Depression Screening Depression [facility] Start: 02-19-2023 COVID-19 Vaccine ( season) COVID-19 Vaccine ( season) [facility] Start: 12-29-2022 Adult BMI Follow Up Plan Adult BMI Follow Up Plan [facility] Start: 11-19-2022 Adult BMI Follow Up Plan Adult BMI Follow Up Plan [facility] Start: 01-19-2022 Influenza vaccination Flu vaccine (# 1) [facility] Start: 04-25-2021 COVID-19 Vaccine (2 - Booster for Neel series) COVID-19 Vaccine (2 - Booster for Neel series) [facility] Start: 02-21-2019 End: 02-21-2019 Office Visit 02/21/2019 Office Visit Orthopedic Surgery Mary Mazariegos, [address] [facility] [address] [place], [place] [phone] [facility] Start: 02-19-2019 Influenza vaccination Flu vaccine (# 1) [place], [place] Start: 2016 Cervical cancer screen Cervical canc er screen [place], [place] Start: 2016 Screening for malign ant neoplasm of cervix Pap smear [facility] Start: 2013 Adult BMI Follow Up Plan Adult BMI Follow Up Plan [facility] Start: 2011 Chlamydia screen Chlamydia screen [place], [place] Start: 2010 HIV screen HIV screen [place], [place] Start: 2010 HIV screening HIV screen [facility] Start: 2010 HPV vaccine (1 - Fem samuel 3-dose series) HPV vaccine (1 - Female 3-dose series) [place], [place] Start: 2008 Varicella Vaccine (1 of 2 - 13+ 2-dose series) Varicella Vaccine (1 of 2 - 13+ 2-dose series) [place], [place] Start: 2007 [facility] Start: 2001 Pneumococcal 0-64 ye ars Vaccine (1 - PCV) Pneumococcal 0-64 years Vaccine (1 - PCV) [facility] Start: 2001 Pneumococcal 0-64 ye ars Vaccine (1 of 1 - PPSV23) Pneumococcal 0-64 years Vaccine (1 of 1 - PPSV23) [place], [place] Start: 1996 Varicella vaccine (1 of 2 - 2-dose childhood series) Varicella vaccine (1 of 2 - 2-dose childhood series) [facility] Bacteria identified in Urine by Culture Urine culture Microbiology Routine Missed menses Ordered: 05/29/2024 [facility] Comment on above: Ordered: 05/29/2024 End: 01-19-2025 Bacteria identified in Urine by Culture Urine culture (clean catch) Microbiology Routine Dysuria 1 Occurrences starting 01/20/2024 until 01/19/2025 [employer] Work Phone: Comment on above: 1 Occurrences starti ng 01/20/2024 until 01/19/2025 CBC W Auto Different ial panel - Blood CBC and differential Lab Routine Missed menses , unspecified gestational age Ordered: 05/29/2024 [facility] Comment on above: Ordered: 05/29/2024 End: 03-15-2025 CBC W Auto Differential panel - Blood CBC auto differential Lab Routine 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 Chronic fatigue Sinus pressure 1 Occurrences starting 03/15/2024 until 03/15/2025 [employer] Work Phone: Comment on above: 1 Occurrences starti ng 03/15/2024 until 03/15/2025 CHLAMYDIA TRACHOMATI S (GENITO/STI) CHLAMYDIA TRACHOMATIS (GENITO/STI) Lab Routine Exposure to STD Ordered: 07/31/2024 [employer] Comment on above: Ordered: 07/31/2024 End: 03-15-2025 Comprehensive metabolic 2000 panel - Serum or Plasma Comprehensive metabolic panel Lab Routine 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 Chronic fatigue 1 Occurrences starting 03/15/2024 until 03/15/2025 [employer] Comment on above: 1 Occurrences starti ng 03/15/2024 until 03/15/2025 End: 02-01-[address] 3D RECONSTRUCTION Imaging STAT Once for 1 Occurrences starting 02/01/2019 until 02/01/2019 [place] Comment on above: Once for 1 Occurrenc es starting 02/01/2019 until 02/01/2019 End: 02-03-[address] 3D Reconstruction Imaging STAT Once for 1 Occurrences starting 02/03/2019 until 02/03/2019 [place], [place] Comment on above: Once for 1 Occurrenc es starting 02/03/2019 until 02/03/2019 CT 3D RECONSTRUCTION [place], [place] End: 03-15-2025 Cyanocobalamin vitamin b-12 Vitamin B12 Lab Routine 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 Chronic fatigue 1 Occurrences starting 03/15/2024 until 03/15/2025 [facility] on above: 1 Occurrences starti ng 03/15/2024 until 03/15/2025 Cytology Cervical or vaginal smear or scraping study Pap Smear Pathology and Cytology Routine Well woman exam with routine gynecological exam Ordered: 07/31/2024 [employer] Work Phone: Comment on above: Ordered: 07/31/2024 End: 03-15-2025 Ferritin [Mass/volume] in Serum or Plasma Ferritin Lab Routine 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 Chronic fatigue 1 Occurrences starting 03/15/2024 until 03/15/2025 [facility] Comment on above: 1 Occurrences starti ng 03/15/2024 until 03/15/2025 Hemoglobin A1c/Hemoglobin.total in Blood Hemoglobin A1c Lab Routine Missed menses , unspecified gestational age Ordered: 05/29/2024 [facility] Comment on above: Ordered: 05/29/2024 Hepatitis B virus surface Ag [Presence] in Serum or Plasma by Immunoassay Hepatitis B surface antigen Lab Routine Missed menses , unspecified gestational age Ordered: 05/29/2024 [facility] Comment on above: Ordered: 05/29/2024 Hepatitis C virus Ab [Presence] in Serum or Plasma by Immunoassay Hepatitis C antibody Lab Routine Missed menses , unspecified gestational age Ordered: 05/29/2024 [facility] Comment on above: Ordered: 05/29/2024 HHN Treatment HHN Treatment Re spiratory Care Routine As Needed until discontinued starting [facility]02[facility] on above: As Needed until disc ontinued starting 02/02/2019 HIV-1/HIV-2 antigen/antibody combination immunoassay HIV-1 and HIV-2 antibodies Lab Routine Missed menses , unspecified gestational age Ordered: 05/29/2024 [facility] Comment on above: Ordered: 05/29/2024 Initiate Oxygen Ther apy Protocol Initiate Oxygen Therapy Protocol Respiratory Care Routine Daily until discontinued starting 02/01/2019 [facility] Comment on above: Daily until disconti nued starting 02/01/2019 End: 03-15-2025 Iron and TIBC Iron and TIBC Lab Routine 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 Chronic fatigue 1 Occurrences starting 03/15/2024 until 03/15/2025 [facility] Comment on above: 1 Occurrences starti ng 03/15/2024 until 03/15/2025 End: 03-15-2025 Lipid 1996 panel - Serum or Plasma Lipid profile Lab Routine 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 Chronic fatigue Lipid screening 1 Occurrences starting 03/15/2024 until 03/15/2025 [facility] Comment on above: 1 Occurrences starti ng 03/15/2024 until 03/15/2025 MDI Treatment MDI Treatment Re spiratory Care Routine Every 6hr As Needed until discontinued starting 02/01/2019 [facility] Comment on above: Every 6hr As Needed until discontinued starting 02/01/2019 End: 06-05-2022 MRI HIP RIGHT W CONTRAST BON WINIFRED [employer] Work Phone: Comment on above: 1 Occurrences starti ng 06/05/2022 until 06/05/2022 Neisseria gonorrhoea e DNA [Presence] in Unspecified specimen by SAMIR with probe detection Neisseria gonorrhea DNA probe, direct Lab Routine Exposure to STD Ordered: 07/31/2024 [facility] Comment on above: Ordered: 07/31/2024 End: 02-09-2019 PREPARE RBC (CROSSMATCH), 1 Units PREPARE RBC (CROSSMATCH), 1 Units Blood Bank Non-Stat Once for 1 Occurrences starting 02/09/2019 until 02/09/2019 [facility] [employer] Comment on above: Once for 1 Occurrenc es starting 02/09/2019 until 02/09/2019 Reagin Ab [Presence] in Serum by RPR RPR Lab Routine Missed menses , unspecified gestational age Ordered: 05/29/2024 [facility] Comment on above: Ordered: 05/29/2024 Respiratory care evaluation only Respiratory care evaluation only Respiratory Care Routine As Needed until discontinued starting 02/02/2019 [employer] Comment on above: As Needed until disc ontinued starting 02/02/2019 Rubella antibody, IgG Rubella an tibody, IgG Lab Routine Missed menses , unspecified gestational age Ordered: 05/29/2024 [facility] Comment on above: Ordered: 05/29/2024 SURESWAB(R) ADVANCED VAGINITIS PLUS, TMA SURESWAB(R) ADVANCED VAGINITIS PLUS, TMA Pathology and Cytology Routine Exposure to STD Ordered: 07/31/2024 [facility] Comment on above: Ordered: 07/31/2024 End: 03-15-2025 Thyroid profile includes TSH FT4 Thyroid profile includes TSH FT4 Lab Routine 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 Chronic fatigue 1 Occurrences starting 03/15/2024 until 03/15/2025 [facility] Comment on above: 1 Occurrences starti ng 03/15/2024 until 03/15/2025 Immunizations Immunization Date Immunization Notes Care Provider [facility]-2021 COVID-19 Vaccine, vector-nr, rS-Ad26, PF, 0.5mL Doc Guevara MD Work Phone: [facility] 11-18-2014 tetanus toxoid, reduced diphtheria toxoid, and acellular pertussis vaccine, adsorbed Doc Guevara MD Work Phone: [facility] 12-01-2000 diphtheria, tetanus toxoids and acellular pertussis vaccine Doc Guevara MD Work Phone: [facility] 12-01-2000 diphtheria, tetanus toxoids and acellular pertussis vaccine, unspecified formulation Doc Guevara MD Work Phone: [facility] 12-01-2000 measles, mumps and rubella virus vaccine Doc Guevara MD Work Phone: [facility] 12-01-2000 poliovirus vaccine, inactivated Doc Guevara MD Work Phone: [facility] 05-11-1997 diphtheria, tetanus toxoids and acellular pertussis vaccine Doc Guevara MD Work Phone: [facility] 09-07-1996 haemophilus influenz ae type b vaccine, conjugate unspecified formulation Doc Guevara MD Work Phone: [facility] 09-07-1996 measles, mumps and rubella virus vaccine Doc Guevara MD Work Phone: [facility] 07-03-1996 DTP-Haemophilus influenzae type b conjugate vaccine Doc Guevara MD Work Phone: [facility] 07-03-1996 hepatitis B vaccine, adult dosage Doc Guevara MD Work Phone: [facility] 07-03-1996 trivalent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
[2024-09-09 10:19] LABS: Basophils Percent Auto 0.3 % (0.2-2.0); Eosinophils Absolute Auto 0.2 10^3/uL (0.0-0.7); Eosinophils Percent Auto 2.3 % (0.9-7.0); Hematocrit 30.8 % (36.0-48.0); Hemoglobin 10.5 g/dL (12.0-16.0); Immature Granulocytes Abs Auto 0.02 10^3/uL (0.00-0.03); Immature Granulocytes Pct Auto 0.3 % (0.0-0.5); Lymphocytes Absolute Auto 1.3 10^3/uL (1.2-3.8); Mean Corpuscular HGB Conc 34.1 g/dL (29.9-35.2); Mean Corpuscular Hemoglobin 30.8 pg (26.7-34.0); Mean Corpuscular Volume 90.3 fL (81.0-99.0); Monocytes Absolute Auto 0.4 10^3/uL (0.3-0.8); Monocytes Percent Auto 5.8 % (1.7-12.0); Neutrophils Absolute Auto 5.2 10^3/uL (1.4-6.5); Neutrophils Percent Auto 73.3 % (43.0-75.0); Platelet Count 186 10^3/uL (150-450); Red Blood Count 3.41 10^6/uL (4.20-5.40); Red Cell Distribution Width 13.2 % (11.0-15.0); White Blood Count 7.1 10^3/uL (4.0-11.0)
[2024-09-09 10:25] LABS: Glucose 1 Hour 98 mg/dL (<130)
== END 2024-09-09 09:07 | disposition home or self-care (01) ==
LOC: LAB 09:06
PROVIDERS: PCP Nurse Practitioner; Visit Provider Physician Assistant
DX: Z13.1 Encounter for screening for diabetes mellitus (principal)
CPT/HCPCS: 36415; 82950; 85025

== ENCOUNTER 2024-10-27 14:52 | Outpatient (OUT) | payer OTHER, SELFPAY ==
--- NOTE | 2024-10-27 | US_ITS ---
[facility] [place] [id number] Patient Name: MADDIE ORNELAS MRN: [id number] date: 1995 Sex: F Assigned Patient Location: Current Patient Location: Accession/Order Number: [id number] Exam Date: 10/30/2024 09:26 Report Date: 10/30/2024 09:28 At the request of: ARMINDA WHITE DO Procedure: US OB BPP w non-stress BIOPHYSICAL PROFILE: CLINICAL INFORMATION: HISTORY OF GASTRIC SLEEVE Z 90.3 COMPARISON: 08/05/2024 There is a single live intrauterine gestation in cephalic presentation. The reported gestational age is 33 weeks 1 day. The heart rate [id number] beats per minute. FINDINGS: TONE: 1 or more episodes of activity extension and flexion of extremity or opening and closing of the hand [Y] 2/2 GROSS BODY MOVEMENTS: 3 or more discrete body or limb movements [Y] 2/2 BREATHING MOVEMENTS: 1 or more episodes of breathing lasting at least 30 seconds [Y] 2/2 LANETTE: A single deepest vertical pocket of amniotic fluid greater than 2 cm [Y] 2/2 LANETTE: 10.5 cm. This is in low-normal range. Total score: 8/8 / OB BPP w non-stress IMPRESSION: NORMAL BIOPHYSICAL PROFILE. Impression dictated by: Smita Jensen M.D. 10/30/2024 9:28 AM Dictation Location: [place] [id number] Electronically authenticated by: [id number] Date: 10/30/2024 09:28
[2024-10-27 15:38] VITALS: BP 116/66; PULSE 86
== END 2024-10-27 16:05 | disposition home or self-care (01) ==
LOC: US 14:52 → FBC 15:34
PROVIDERS: PCP Nurse Practitioner; Visit Provider Obstetrics & Gynecology
DX: O99.843 Bariatric surgery status complicating pregnancy, third trimester (principal); Z90.3 Acquired absence of stomach [part of]; Z3A.33 33 weeks gestation of pregnancy
CPT/HCPCS: 76818

== ENCOUNTER 2024-10-31 17:01 | Outpatient (OUT) | payer OTHER, SELFPAY ==
--- OUTSIDE RECORDS SUMMARY | 2024-10-31 17:28 | XMS_ITS | CCD ---
Author Organization [facility] Care Team Providers Care Game Farm Supervisor Name Role Phone Ally Craig Primary Care Provider TERRI AUGUSTIN Admitting Unavailable TERRI AUGUSTIN Attending Unavailable ALLY CRAIG Primary Care Unavailable VIDYA FERRER Consulting Unavailable ALANA, DR HILLIARD Attending Unavailable ALANA, DR HILLIARD Consulting Unavailable ALANA, DR HILLIARD Admitting Unavailable Jeane Canela Unavailable Kiara Mckeon CNP, Ally Pop Primary Care Pro vider ALLY CRAIG Primary Care Unavailable MARY MAZARIEGOS Referring Unavailable ALANNA CRAIGITH A Primary Care Unavailable MARY MAZARIEGOS A Referring Unavailable NON STAFF Primary Care Provider UnavailRAFA Crowder Attending Provider [phone] NON STAFF Primary Care Unavailable Janna Escalera Attending Unavailable Janna Escalera Admitting Unavailable RADHA GAN Attending Unavailable ALLY CRAIG Referring Unavailable ALLY CRAIG Primary Care Unavailable DOC GUEVARA Attending Unavailable LAUREN SCOTT Referring Unavailable KIARA ALLY A Primary Care Unavailable ALLY CRAIG Attending Unavailable ALLY CRAIG Referring Unavailable ALLY CRAIG A Primary Care Unavailable RADHA GAN Attending Unavailable ALLY CRAIG Referring Unavailable KIARA ALLY A Primary Care Unavailable ALLY CRAIG Attending Unavailable KIARA ALLY Donn Referring Unavailable ALANNA CRAIGITH Donn Primary Care Unavailable Unavailable Primary Care Provider UnavailAlly Herring Primary Care Provi collin Kiara LINE CAMERA OPERATOR-INDUSTRIAL MECHANIC, Ally A Primary Care Provi collin ZORAIDA TRAVIS Attending Unavailable ZORAIDA TRAVIS Attending Unavailable ALANA, CEDRIC Attending Unavailable CAREY PENA Attending Unavailable ALANA, CEDRIC Attending Unavailable ALANA, CEDRIC Attending Unavailable CIARA, JORDAN Attending Unavailable ALANA, CEDRIC R Referring Unavailable KIARA, ALLY A Primary Care Unavailable LIALIANG Referring Unavailable KIARA, ALLY A Primary Care Unavailable CIARA, JORDAN Attending Unavailable ALANA, CEDRIC R Referring Unavailable KIARA, ALLY A Primary Care Unavailable ALANA, CEDRIC R Referring Unavailable KIARA, ALLY A Primary Care Unavailable KIARA, ALLY A Referring Unavailable KIARA, ALLY A Primary Care Unavailable GANRADHA Brooke Referring Unavailable KIARA, ALLY A Primary Care Unavailable LIALIANG Attending Unavailable KIARA, ALLY A Referring Unavailable KIARA, ALLY A Primary Care Unavailable ALANA, CEDRIC R Referring Unavailable KIARA, ALLY A Primary Care Unavailable Allergies Allergy Classification Reported Allergen(s) Allergy Type Date of Onset Reaction(s) Facility strawberry allergenic extract (1 source) strawberry allergenic extract Drug Allergy [facility] Repository (10 sources) strawberry allergenic extract; Translations: [STRAWBERRY EXTRACT] Drug Allergy 9 Anaphylaxis [place], [place] (13 sources) [place] Propensity to adverse reactions 9 Anaphylaxis [facility] Healthcare Medications Current Medications Medication Drug Class(es) Dates Sig (Normalized) Sig (Original) acetaminophen 500 mg oral tablet (1 source) Start: 02-01-2019 acetaminophen (TYLENOL) tablet 1,000 mg [id number] 200 actuat albuterol 0.09 mg/actuat metered dose [...] 2 puff amoxicillin 500 mg oral tablet (4 sources) Penicillin-class Antibacterial Start: 05-29-2024 End: 06-05-2024 [...] 21 tablet 05/29/2024 06/05/2024 Active Start: 10-20-2023 End: 10-22-2024 take 1 capsule by mouth every twelve hours Amoxicillin 500 mg capsule Discontinued 500 MG PO Every 12 hours 09 04October 20, 2023 12:00am October 22, 2024 10:01am Start: 03-19-2022 take 1 tablet by hilary th every twelve hours Amoxicillin 875 MG 1 tablet Orally Twice a day for 7 days Feb, Active azelastine hydrochloride 0.137 mg/actuat metered dose nasal spray (12 sources) Histamine-1 Receptor Antagonist Start: 03-15-2024 take [...] 03/15/2024 Active Start: 10-20-2023 End: 10-20-2023 take 1 tablet by mouth once daily Buspirone 5 mg tablet Discontinued 5 MG PO Daily October 20, [...] 10 mg cholecalciferol 1.25 mg oral tablet (20 sources) Vitamin D Start: 12-28-2022 take 1 [...] by mouth every week vitamin D (ERGOCALCIFEROL) 96096 units CAPS capsule Take 1 capsule by [...] 11/23/2022 Active lidocaine 0.05 mg/mg medicated patch (20 sources) Antiarrhythmic, Amide Local Anesthetic Start: 12-22-2023 [...] 03/15/2024 Discontinued methylPREDNISolone 4 mg oral tablet (20 sources) Corticosteroid Start: 03-15-2022 methylPREDNISolone 4 MG as directed Orally Once a day for 6 days Feb, Active 24 hr metoprolol succinate 25 mg extended release oral tablet (9 sources) beta-Adrenergic Henny Start: 10-22-2024 End: 10-22-2024 take 1 tablet by mouth every twenty-fou r hours as needed Metoprolol Succinate 25 mg tablet extended release 24 hr Active MG PO as needed for if HR >150 October 22, 2024 10:08am Start: 10-05-2024 take 1 tablet by hilary th every hour as needed metoprolol succinate XL (TOPROL XL) 25 mg 24 hr tablet Take 1 tablet (25 mg total) by mouth as needed (for persisent HR >150 BPM lasting 15-20 mins). 30 tablet 11 10/05/2024 Active Start: 02-22-2019 take 1 tablet by hilary th twice [...] 19/iron ps,heme/folic/dha ( MV & MIN ORAL) (6 sources) take 1 tablet by mouth once daily PNV 19/iron ps,heme/folic/dha ( MV & MIN ORAL) Take 1 tablet by mouth once daily. Active MV-Min-Fe Fum-FA-DHA ( 1 PO) (20 sources) MV-Min- Fe Fum-FA-DHA ( 1 PO) Active No.167-Folic Acid-Dha (One-A-Day ) 400 mcg- 25 mg tablet,chewable (2 sources) Start: 10-20-2023 No.167-Folic Acid-Dha (One-A-Day ) 400 mcg- 25 mg tablet,chewable Active TAB PO October 20, 2023 12:00am vit 10-iron fum-folic 65-1 mg tablet (20 sources) Start: 11-18-2021 take 1 tablet by mouth in the morning vit 10-iron fum-folic 65-1 mg tablet Indications: Morbid obesity (CMS-HCC) , Healthcare maintenance Take 1 tablet by mouth in the morning. 90 tablet 3 11/18/2021 Active sennosides, mcc 8.6 mg oral tablet (2 sources) Start: 02-02-2019 End: 03-12-2019 take 1 tablet by mouth once daily senna (SENOKOT) 8.6 MG tablet Take 1 tablet by mouth nightly 30 tablet 0 02/10/2019 03/12/2019 Active Syringe With Needle (Bd Luer-Santy Syringe) 3 mL 25 x 1 1/2 syringe (2 sources) Start: 10-20-2023 Syringe With Needle (Bd Luer-Santy [...] 20, 2023 12:00am Start: 03-30-2023 End: 05-04-2024 Cyanocobalamin (Vitamin B-12 ) 1,000 mcg/mL solution Active 1000 MCG IM October 20, 2023 12:00am take 1 dose by mouth every 30 days Cyanocobalamin (Vitamin B-12) 1000 MCG/15ML liquid Take 1 each by mouth every 30 (thirty) days Active Completed/Discontinued Medications Medication Drug Class(es) Dates Sig (Normalized) Sig (Original) amoxicillin 500 mg / clavulanate 125 mg oral tablet (1 source) Penicillin-class Antibacterial Start: 02-11-2019 End: 02-13-2019 amoxicillin-clavul anate (AUGMENTIN) 500-125 MG per tablet 1 tablet ARIPiprazole 5 mg oral tablet (15 sources) Atypical Antipsychotic Start: 11-23-2022 End: 05-29-2024 take 1 tablet by mouth once daily at bedtime Aripiprazole 5 mg tablet Discontinued 5 MG PO Daily at bedtime [...] 01-31-2019 fentaNYL (SUBLIMAZE) injecti on 50 mcg fluconazole 150 mg oral tablet (2 sources) Azole Antifungal Start: 10-20-2023 End: 10-22-2024 Fluconazole 150 mg tablet Discontinued 150 MG PO Q3D 2 October 20, 2023 12:00am October 22, 2024 10:01am october repeat x 1 in 3 days if needed Folic Acid / Iron polysaccharide / Vitamin B 12 (1 source) Vitamin B12 Start: 02-09-2019 End: 02-09-2019 iron polysaccharide [id number]-jfazc acid (FERREX-FORTE) 150-0.025-1 MG capsule 1 mg [...] Problem Date Documented Date Episodic/Chronic Anxiety disorders (20 sources) Other specified anxiety disorders; 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] 07-31-2024 Episodic Malaise and fatigue (15 sources) Chronic fatigue, unspecified; Translations: [Fatigue] Onset: 03-15-2024 03-15-2024 Chronic Menstrual disorders (1 source) Missed period; Translations: [Irregular menstruation, unspecified] 05-29-2024 Chronic Mood disorders (10 sources) Depressive disorder; Translations: [Bipolar I disorder] [...] Chronic Other nutritional; endocrine; and metabolic disorders (20 sources) Body mass index 30+ - obesity; Translations: [Body mass index (BMI) 39.0-39.9, adult] Onset: 11-09-2022 03-15-2024 Chronic Other nutritional; endocrine; and metabolic disorders (1 source) Localized adiposity; Translations: [Localized adiposity] 08-26-2023 Chronic Other nutritional; endocrine; and metabolic disorders (1 source) Abnormal weight gain; Translations: [Abnormal weight gain] Onset: 03-15-2024 Episodic Other and delivery including normal (14 sources) ; Translations: [Encounter for supervision of normal , unspecified, unspecified trimester] 05-29-2024 Episodic Other screening for suspected conditions (not mental disorders or infectious disease) (20 sources) Encounter for screening for lipoid disorders; Translations: [Patient encounter status] Onset: 03-15-2024 03-15-2024 Episodic Other upper respiratory infections (20 sources) [...] stomach [part of]] Onset: 11-12-2023 06-15-2024 Episodic Residual codes; unclassified (2 sources) Gestation period, 28 weeks; Translations: [28 weeks gestation of ] 09-26-2024 Episodic Residual codes; unclassified (2 sources) Gestation period, 30 weeks; Translations: [30 weeks gestation of ] 10-11-2024 Episodic Residual codes; unclassified (2 sources) Gestation period, 32 weeks; Translations: [32 weeks gestation of ] 10-25-2024 Episodic Spondylosis; intervertebral disc disorders; other back [...] (1 source) Er Follow-up Onset: 12-22-2023 Unclassified (2 sources) New Patient Onset: 08-26-2023 Unclassified (1 source) Hx SVT Onset: 08-24-2024 Past or Other Problems Problem Classification Problem Date Documented Date Episodic/Chronic Abdominal pain (20 sources) Abdominal pain; Translations: [Unspecified abdominal pain] Onset: 04-24-2019 Resolved: 03-15-2024 03-15-2024 Episodic Biliary tract disease (20 sources) Cholelithiasis with obstruction; Translations: [Calculus of [...] source) Fatigue Onset: 06-07-2023 Episodic Mood disorders (20 sources) Mood disorders Onset: 11-09-2022 11-09-2022 Mycoses [...] 02-15-2019 02-15-2019 Episodic Other lower respiratory disease (20 sources) Wheezing; Translations: [Wheezing] Onset: 04-12-2018 04-12-2018 Episodic Other lower respiratory disease (20 sources) Dyspnea; Translations: [Shortness of breath] Onset: 04-12-2018 Resolved: 04-26-2023 04-26-2023 Episodic Other lower respiratory disease (20 sources) Dry cough; Translations: [Recurrent non-productive cough] Onset: 04-12-2018 Resolved: 10-01-2020 10-01-2020 Episodic Other lower respiratory disease (20 sources) Lower respiratory tract infection; Translations: [Unspecified acute lower respiratory infection] Onset: 04-26-2023 Resolved: 03-15-2024 03-15-2024 Episodic Other lower respiratory disease (13 sources) Cough; Translations: [Acute cough] Onset: 04-26-2023 Resolved: 03-15-2024 03-15-2024 Episodic Other lower respiratory disease (8 sources) Cough; Translations: [Acute cough] Onset: 04-26-2023 04-26-2023 Episodic Other nervous system disorders (20 sources) Loss of taste; Translations: [Parageusia] Onset: 07-16-2022 Resolved: 03-15-2024 03-15-2024 Episodic Other nutritional; endocrine; and metabolic disorders (20 sources) Morbid obesity; Translations: [Morbid (severe) obesity due to excess calories] Onset: 11-10-2021 Resolved: 11-09-2022 11-09-2022 Chronic Other nutritional; endocrine; and metabolic disorders (13 sources) Weight increased; Translations: [Abnormal weight gain] [...] stomach (part of)] Onset: 11-12-2023 Episodic Unclassified (2 sources) History of sleeve gastrectomy 08-24-2024 Unclassified (3 sources) Patient encounter status 08-24-2024 Results Test Name Value Interpretation Reference Range Facility US OB BPP W NON-STRESS on 10-30-[address] [address] Ultrasound Report Signed Patient: MADDIE RAMAN MR#: [id number] : 1995 Acct:[id number] Age/Sex: 29 / F ADM Date: 10/27/24 Loc: US Attending Dr: Cedric Warner D.O. Ordering Physician: Cedric Warner D.O. Date of Service: 10/27/24 Procedure(s): OB BPP w non-stress Accession Number(s): [id number] cc: Cedric Warner D.O.; Ally Craig NP [place] [address] Patient Name: MADDIE RAMAN MRN: [facility]:[id number] date: 1995 Sex: F Assigned Patient Location: US Current Patient Location: Accession/Order Number: [id number] Exam Date: 10/30/2024 09:26 Report Date: 10/30/2024 09:28 At the request of: CEDRIC WARNER DO Procedure: US OB BPP w non-stress BIOPHYSICAL PROFILE: CLINICAL INFORMATION: HISTORY OF GASTRIC SLEEVE Z 90.3 COMPARISON: 08/05/2024 There is a single live intrauterine gestation in cephalic presentation. The reported gestational age is 33 weeks 1 day. The heart rate [id number] beats per minute. FINDINGS: TONE: 1 or more episodes of activity extension and flexion of extremity or opening and closing of the hand [Y] 2/2 GROSS BODY MOVEMENTS: 3 or more discrete body or limb movements [Y] 2/2 BREATHING MOVEMENTS: 1 or more episodes of breathing lasting at least 30 seconds [Y] 2/2 LANETTE: A single deepest vertical pocket of amniotic fluid greater than 2 cm [Y] 2/2 LANETTE: 10.5 cm. This is in low-normal range. Total score: 8/8 US/ OB BPP w non-stress IMPRESSION: NORMAL BIOPHYSICAL PROFILE. Impression dictated by: Smita Jensen M.D. 10/30/2024 9:28 AM Dictation Location: [place] [address] Electronically authenticated by: [id number] Y Date: 10/30/2024 09:28 Dictated By: Smita Jensen M.D. Signed By: 05/06/14 931 DD/ 7 TD/TT: Lining Caser: [facility] Radiology, Radiologist, - 10/30/2024 [place] [address] Ultrasound Report Signed Patient: MADDIE RAMAN MR#: [id number] : 1995 Acct:[id number] Age/Sex: 29 / F ADM Date: 10/27/24 Loc: US Attending Dr: Cedric Warner D.O. Ordering Physician: Cedric Warner D.O. Date of Service: 10/27/24 Procedure(s): US OB BPP w non-stress Accession Number(s): [id number] cc: Cedric Warner D.O.; Ally Craig NP The [place] [address] Patient Name: MADDIE RAMAN MRN: [facility]:[id number] date: 1995 Sex: F Assigned Patient Location: Current Patient Location: Accession/Order Number: [id number] Exam Date: 10/30/2024 09:26 Report Date: 10/30/2024 09:28 At the request of: CEDRIC WARNER DO Procedure: US OB BPP w non-stress BIOPHYSICAL PROFILE: CLINICAL INFORMATION: HISTORY OF GASTRIC SLEEVE Z 90.3 COMPARISON: 08/05/2024 There is a single live intrauterine gestation in cephalic presentation. The reported gestational age is 33 weeks 1 day. The heart rate [id number] beats per minute. FINDINGS: TONE: 1 or more episodes of activity extension and flexion of extremity or opening and closing of the hand [Y] 2/2 GROSS BODY MOVEMENTS: 3 or more discrete body or limb movements [Y] 2/2 BREATHING MOVEMENTS: 1 or more episodes of breathing lasting at least 30 seconds [Y] 2/2 LANETTE: A single deepest vertical pocket of amniotic fluid greater than 2 cm [Y] 2/2 LANETTE: 10.5 cm. This is in low-normal range. Total score: 8/8 US/US OB BPP w non-stress IMPRESSION: NORMAL BIOPHYSICAL PROFILE. Impression dictated by: Smita Jensen M.D. 10/30/2024 9:28 AM Dictation Location: [place] [address] Electronically authenticated by: [id number] Y Date: 10/30/2024 09:28 Dictated By: Smita Jensen M.D. Signed By: 10/30/24930 DD/ 7 TD/TT: Lining Caser: [facility] Radiology Study observation (narrative) [facility] US OB BPP W NON-STRESS Ordered By: Radiologist Radiology on 10-30-2024 [facility] Work Phone: Urinalysis macro (dipstick) panel (U)on 10-25-2024 Bilirubin, UA Negative Negative - 4(70) +++ mg/dL [facility] Blood, UA Negative Negative - 50 Miguel Angel/mcL [facility] Clarity, UA Clear [facility] Color, UA Yellow [facility] Glucose, UA Negative Negative - 1999(110) ++++ mg/dL [facility] Interpretation and review of laboratory results Normal [facility] Ketones, UA Negative Negative - 160(16) ++++ mg/dL [facility] Leukocytes, UA Negative Negative - 500+++ Eleonora/mcL [facility] Nitrite, UA Negative Negative - Positive [facility] pH, UA 6.5 5 - 9 [facility] Protein, UA Negative Negative - 1999(20) ++++ mg/dL [facility] Spec Grav, UA 1.015 1 - 1.03 [facility] Urobilinogen, UA 0.2 0.2 - 12 mg/dL [facility] Urinalysis macro (dipstick) panel (U)on 10-11-2024 Bilirubin, UA Negative Negative - 4(70) +++ mg/dL [facility] Blood, UA Negative Negative - 50 Miguel Angel/mcL [facility] Clarity, UA Clear [facility] Color, UA Yellow [facility] Glucose, UA Negative Negative - 2000(110) ++++ mg/dL [facility] Interpretation and review of laboratory results Normal [facility] Ketones, UA Negative Negative - 160(16) ++++ mg/dL [facility] Leukocytes, UA Negative Negative - 500+++ Eleonora/mcL [facility] Nitrite, UA Negative Negative - Positive [facility] pH, UA 7 5 - 9 [facility] Protein, UA Trace Negative - 1999(20) ++++ mg/dL [facility] Spec Grav, UA 1.025 1 - 1.03 [facility] Urobilinogen, UA 0.2 0.2 - 12 mg/dL [facility] POCT EKGon 10-05-2024 [facility] Urinalysis macro (dipstick) panel (U)on 09-26-2024 Bilirubin, UA Negative Negative - 4(70) +++ mg/dL [facility] Blood, UA Negative Negative - 50 Miguel Angel/mcL [facility] Clarity, UA Clear [facility] Color, UA Tiffany [facility] Glucose, UA Negative Negative - 1999(110) ++++ mg/dL [facility] Interpretation and review of laboratory results Abnormal [facility] Ketones, UA Negative Negative - 160(16) ++++ mg/dL [facility] Leukocytes, UA Negative Negative - 500+++ Eleonora/mcL [facility] Nitrite, UA Negative Negative - Positive [facility] pH, UA 6 5 - 9 [facility] Protein, UA Positive Negative - 1999(20) ++++ mg/dL [facility] Comment on above: 30 Spec Grav, UA 1.03 1 - 1.03 [facility] Urobilinogen, UA 0.2 0.2 - 12 mg/dL [facility] No Panel InformationOrdered By: Radiologist Radiology on 08-05-2024 [facility] Work Phone: No Panel Informationon 08-05 Radiology Study observation (narrative) [facility] US OB ANATOMYon 08-05-[address] [address] Ultrasound Report Signed Patient: MADDIE RAMAN MR#: [id number] : 1995 Acct:[id number] Age/Sex: 29 / F ADM Date: 08/05/24 Loc: US Attending Dr: Zoraida Travis Ordering Physician: Zoraida Travis Date of Service: 08/05/24 Procedure(s): US OB anatomy Accession Number(s): [id number] cc: Zoraida Travis; Ally Craig NP [address] [address] Patient Name: MADDIE RAMAN MRN: [id number] date: 1995 Sex: F Assigned Patient Location: US Current Patient Location: US Accession/Order Number: [id number] Exam Date: 08/05/2024 08:01 Report Date: 08/05/2024 [...] Signed By: 08/05/24 0858 DD/ 0855 TD/TT: Lining Caser: [facility] Radiology, Radiologist, - 08/05/2024 [place] [address] Ultrasound Report Signed Patient: MADDIE RAMAN MR#: [id number] : 1995 Acct:[id number] Age/Sex: 29 / F ADM Date: 08/05/24 Loc: US Attending Dr: Zoraida Travis Ordering Physician: Zoraida Travis Date of Service: 08/05/24 Procedure(s): US OB anatomy Accession Number(s): [id number] cc: Zoraida Travis; Ally Craig NP The [place] [address] Patient Name: MADDIE RAMAN MRN: [facility]:[id number] date: 1995 Sex: F Assigned Patient Location: US Current Patient Location: US Accession/Order Number: [id number] Exam Date: 08/05/2024 08:01 Report Date: 08/05/2024 [...] Mathew M.D. Signed By: 08/05/24 0858 DD/ TD/TT: Lining Caser: [facility] US OB CERVICAL LENGTHon 07-22 [place] [address] Ultrasound Report Signed Patient: MADDIE RAMAN MR#: [id number] : 1995 Acct:[id number] Age/Sex: 29 / F ADM Date: 08/05/24 Loc: US Attending Dr: Zoraida Travis Ordering Physician: Zoraida Travis Date of Service: 08/05/24 Procedure(s): US OB cervical length Accession Number(s): [id number] cc: Zoraida Travis; Ally Craig NP [place] [id number] Patient Name: MADDIE RAMAN MRN: [id number]:[id number] date: 1995 Sex: F Assigned Patient Location: US Current Patient Location: US Accession/Order Number: [id number] Exam Date: 08/05/2024 08:01 Report Date: 08/05/2024 [...] Signed By: 08/05/24 0858 DD/ 0855 TD/TT: Lining Caser: [facility] Radiology, Radiologist, MD - 08/05/2024 [place] [address] Ultrasound Report Signed Patient: MADDIE RAMAN MR#: [id number] : 1995 Acct:[id number] Age/Sex: 29 / F ADM Date: 08/05/24 Loc: US Attending Dr: Zoraida Travis Ordering Physician: Zoraida Travis Date of Service: 08/05/24 Procedure(s): US OB cervical length Accession Number(s): [id number] cc: Zoraida Travis; Ally Craig NP [place] [address] Patient Name: MADDIE RAMAN MRN: [id number]:[id number] date: 1995 Sex: F Assigned Patient Location: US Current Patient Location: US Accession/Order Number: [id number] Exam Date: 08/05/2024 08:01 Report Date: 08/05/2024 08:55 At the request of: OZRAIDA TRAVIS Procedure: US OB cervical length EXAMINATION: [...] Dictated By: Alejandrina Mathew M.D. Signed By: 08/05/24857 DD/ 4 TD/TT: Lining Caser: SLIME Ar[place]ula IGP,APTIMA HPV,AGE GDLNon AGE GDLN ACOG TESTING Note . [facility] Comment on above: TESTS RESULT FLAG UN ITS REF RANGE LAB Clinician Provided Cytology Information Source.............Cervix Other.............. No. of containers..01 ThinPrep Vial Age Algo ACOG Theodora... - 01 FLAG LEGEND: L-Low Normal,H-High Normal,LL-Alert Low,HH-Alert High <-Panic Low,>-Panic High,A-Abnormal,AA-Critical Abnormal Performed at: 01 =[facility] [address] [place] [address] Otilia Marquis MD, IGP, RFX APTIMA HPV ASCU Note . [facility] Comment on above: TESTS RESULT FLAG UN ITS REF RANGE LAB DIAGNOSIS: 02 NEGATIVE FOR INTRAEPITHELIAL LESION OR MALIGNANCY. Specimen adequacy: 02 Satisfactory for evaluation. Endocervical and/or squamous metaplastic cells (endocervical component) are present. Performed by: Trupti Bliss, Returns Processor ([facility]) . 02 Note: Note 03 The [...] <-Panic Low,>-Panic High,A-Abnormal,AA-Critical Abnormal Performed at: [address] [place] [address] Kyra Flores PhD, [address] [facility] [place] [address] Otilia Marquis MD, Performed at: =G - [facility] [id number] Catering Truck Operator: Otilia Marquis MD, Phone: [phone] Performed at: [facility], [place] [id number] Catering Truck Operator: Kyra Flores PhD, Phone: [phone] SP[facility] RECURRENT VAGINITIS (HTRX)on 08-02-2024 ATOPOBIUM VAGINAE 21.302 Abnormal [facility] ATOPOBIUM VAGINAE Detected Abnormal [facility] BVAB 2,3 (BACTERIAL VAGINOSIS ASSOCIATED BACTERIA 2, 3); MOBILUNCUS SPP 18.822 Abnormal [facility] BVAB 2,3 (BACTERIAL VAGINOSIS ASSOCIATED BACTERIA 2, 3); MOBILUNCUS SPP Detected Abnormal [facility] ROCÍO ALBICANS, PARAPSILOSIS, TROPICALIS 0 [facility] ROCÍO ALBICANS, PARAPSILOSIS, TROPICALIS Not detected [facility] ROCÍO GLABRATA 0 [facility] ROCÍO GLABRATA Not detected [facility] ROCÍO KRUSEI 0 [facility] ROCÍO KRUSEI Not detected [facility] CHLAMYDIA TRACHOMATIS 0 [facility] CHLAMYDIA TRACHOMATIS Not detected [facility] ERMB, C; MEFA 21.66 Abnormal [facility] ERMB, C; MEFA Detected Abnormal [facility] GARDNERELLA VAGINALIS 22.792 Abnormal [facility] GARDNERELLA VAGINALIS Detected Abnormal [facility] Interpretation and review of laboratory results Abnormal [facility] MEGASPHAERA (TYPES 1, 2) 17.674 Abnormal [facility] MEGASPHAERA (TYPES 1, 2) Detected Abnormal [facility] MYCOPLASMA GENITALIUM 0 [facility] MYCOPLASMA GENITALIUM Not detected N [facility] NEISSERIA GONORRHOEAE 0 [facility] NEISSERIA GONORRHOEAE Not detected N [facility] TRICHOMONAS VAGINALIS 0 [facility] TRICHOMONAS VAGINALIS Not detected N [facility] Urinalysis macro (dipstick) panel (U)on 07-31-2024 Bilirubin, UA Positive Negative - 4(70) +++ mg/dL [facility] Comment on above: small Blood, UA Negative Negative - 50 Miguel Angel/mcL [facility] Clarity, UA Cloudy [facility] Color, UA Dark Tiffany [facility] Glucose, UA Negative Negative - 2000(110) ++++ mg/dL [facility] Interpretation and review of laboratory results Abnormal [facility] Ketones, UA Negative Negative - 160(16) ++++ mg/dL [facility] Leukocytes, UA Negative Negative - 500+++ Eleonora/mcL [facility] Nitrite, UA Negative Negative - Positive [facility] pH, UA 6 5 - 9 [facility] Protein, UA Positive Negative - 2000(20) ++++ mg/dL [facility] Comment on above: 30 mg Spec Grav, UA 1.03 1 - 1.03 [facility] Urobilinogen, UA 1.0 0.2 - 12 mg/dL [facility] AFP, SERUM, OPEN SPINA BIFID Aon 07-07-2024 AFP MOM 0.99 . [facility] AFP VALUE 31.8 ng/mL . [facility] COMMENT: Comment . [facility] Comment on above: Yanni West , Ph.D., [facility] Director References: Available Upon Request. Multiples Of Median Cutoffs For AFP Elevations Alonso 2.5 Black 2.8 IDD 2.0 Twins 4.5 Abbreviation Definitions IDD - Insulin Dep Diabetes OSBR - Open Spina Bifida Risk For further inquiries contact [facility] at [phone]. This test was developed and its performance characteristics determined by [employer]. It has not been cleared or approved by the Food and Drug Administration. Performed at: [facility] [address], [place] [id number] [employer]ing [employer] Operator: [facility], located within [facility], Phone: [phone] GEST. AGE ON COLLECTION DATE 17.9 . weeks [facility] GESTAT. AGE BASED ON Ultrasound . [facility] Comment on above: 15:0 on 06/15/2024 Recalculations are not recommended when gestational dating by LMP and ultrasound are within 10 days. INSULIN DEP DIABETES No . [facility] INTERPRETATION Comment . [facility] Comment on above: Interpretation: Scre en [...] Customer Services to discuss available options. The [employer] recommends amniocentesis be offered to women age 35 and older. [age] [facility] MULTIPLE GESTATION No . [facility] [place] [address] [place] [phone] . [facility] RACE . [facility] RESULTS Report . [facility] TEST RESULTS: Negative . [facility] WEIGHT 237 . lbs [facility] N [id number] N ULTRASOUND [id number] N 1 Y 237 N N N N N White/ [facility] Urinalysis macro (dipstick) panel (U)on 06-15-2024 Bilirubin, UA Negative Negative - 4(70) +++ mg/dL [facility] Blood, UA Negative Negative - 50 Miguel Angel/mcL [facility] Clarity, UA Clear [facility] Color, UA Yellow [facility] Glucose, UA Negative Negative - 1999(110) ++++ mg/dL [facility] Interpretation and review of laboratory results Abnormal [facility] Ketones, UA Negative Negative - 160(16) ++++ mg/dL [facility] Leukocytes, UA Few Negative - 500+++ Eleonora/mcL [facility] Comment on above: small Nitrite, UA Negative Negative - Positive [facility] pH, UA 7 5 - 9 [facility] Protein, UA Negative Negative - 1999(20) ++++ mg/dL [facility] Spec Grav, UA 1.025 1 - 1.03 [facility] Urobilinogen, UA 2.0 0.2 - 12 mg/dL [facility] BOX TESTon 06-06-2024 BOX TEST SENT OUT [facility] BOX1 [facility] BOX2 06/06/24 [facility] HCG ( test) Ql (U)o n 05-29-2024 Interpretation and review of laboratory results Abnormal [facility] Preg Test, Ur Positive Negative [facility] Urinalysis macro (dipstick) panel (U)on 05-29-2024 Bilirubin, UA Negative Negative - 4(70) +++ mg/dL [facility] Blood, UA Negative Negative - 50 Miguel Angel/mcL [facility] Clarity, UA Clear [facility] Color, UA Yellow [facility] Glucose, UA Negative Negative - 1999(110) ++++ mg/dL [facility] Interpretation and review of laboratory results Abnormal [facility] Ketones, UA Positive Negative - 160(16) ++++ mg/dL [facility] Comment on above: trace Leukocytes, UA Negative Negative - 500+++ Eleonora/mcL [facility] Nitrite, UA Negative Negative - Positive [facility] pH, UA 6.5 5 - 9 [facility] Protein, UA Negative Negative - 1999(20) ++++ mg/dL [facility] Spec Grav, UA 1.02 1 - 1.03 [facility] Urobilinogen, UA 1.0 0.2 - 12 mg/dL [facility] PREG QUANT HCGon 22-2 024 HCG QUANTITATIVE 92921 mIU/mL [facility] Comment on above: 5-50 0.2-1 WEEK 50-500 1-2 WEEKS 100-5,000 2-3 WEEKS 500-10,000 3-4 WEEKS 1,000-50,000 4-5 WEEKS 10,000-100,000 5-6 WEEKS 15,000-200,000 6-8 WEEKS 10,000-100,000 2-3 MONTHS [facility] PREG QUANT HCGon 05-10-2 024 HCG QUANTITATIVE 78936 mIU/mL [facility] Comment on above: 5-50 0.2-1 WEEK 50-500 1-2 WEEKS 100-5,000 2-3 WEEKS 500-10,000 3-4 WEEKS 1,000-50,000 4-5 WEEKS 10,000-100,000 5-6 WEEKS 15,000-200,000 6-8 WEEKS 10,000-100,000 2-3 MONTHS [facility] PREG QUANT HCGon 18-2 024 HCG QUANTITATIVE 09583 mIU/mL [facility] Comment on above: 5-50 0.2-1 WEEK 50-500 1-2 WEEKS 100-5,000 2-3 WEEKS 500-10,000 3-4 WEEKS 1,000-50,000 4-5 WEEKS 10,000-100,000 5-6 WEEKS 15,000-200,000 6-8 WEEKS 10,000-100,000 2-[address] [facility] CBC AND AUTO DIFFon 03-15-20 24 ABSOLUTE BASOPHIL 0.1 X10E9/L Normal 0.0-0.2 [facility] Comment on above: Performed By: #### C BCA, CMP, FEPR, 72676-4, THYR, 9436-4, 1272-9 #### [facility] ([id number]) [address], [address] [place] [address] ABSOLUTE NEUTROPHIL 3.1 X10E9/L Normal 1.5-6.6 [facility] Comment on above: Performed By: #### C BCA, CMP, FEPR, 69049-8, THYR, 2275-09, 2132-02 #### [facility] ([id number]) [address], [address] [place] [address] Basophils/100 WBC (Bld) 1.2 % Normal [facility] Comment on above: Performed By: #### C BCA, CMP, FEPR, 93085-9, THYR, 2275-09, 2132-02 #### [facility] ([id number]) [address], [address] [place] [address] Eosinophils (Bld) [#/Vol] 0.4 10*3/uL Normal 0.0-0.4 [facility] Comment on above: Performed By: #### C BCA, CMP, FEPR, 24353-3, THYR, 2275-09, 2132-02 #### [facility] ([id number]) [address], [address] [place] [address] Eosinophils/100 WBC (Bld) 6.7 % Normal [facility] Comment on above: Performed By: #### C BCA, CMP, FEPR, 30182-1, THYR, 2275-09, 2132-02 #### [facility] ([id number]) [address], [address] [place] [address] Erythrocyte distribution width (RBC) [Ratio] 12.8 % Normal 11.5-15.0 [facility] Comment on above: Performed By: #### C BCA, CMP, FEPR, 32493-6, THYR, 2275-09, 2132-02 #### [facility] ([id number]) [address], [address] [place] [address] Hematocrit (Bld) [Volume fraction] 36.5 % Normal 35-47 [facility] Comment on above: Performed By: #### C BCA, CMP, FEPR, 59648-7, THYR, 2275-, 2132-02 #### [facility] ([id number]) [address], [address] [place] [address] Hemoglobin (Bld) [Mass/Vol] 12.9 g/dL Normal 11.7-15.5 [facility] Comment on above: Performed By: #### C BCA, CMP, FEPR, 12795-0, THYR, 2275-, 2132-02 #### [facility] ([id number]) [address], [address] [place] [address] Lymphocytes (Bld) [#/Vol] 1.3 10*3/uL Normal 1.0-3.5 [facility] Comment on above: Performed By: #### C BCA, CMP, FEPR, 95452-8, THYR, 2275-09, 2132-02 #### [facility] ([id number]) [address], [address] [place] [address] Lymphocytes/100 WBC (Bld) 25.0 % Normal [facility] Comment on above: Performed By: #### C BCA, CMP, FEPR, 39179-7, THYR, 2275-09, 2132-02 #### [facility] ([id number]) [address], [address] [place] [address] MCH (RBC) [Entitic mass] 31.2 pg Normal 27-34 [facility] Comment on above: Performed By: #### C BCA, CMP, FEPR, 95005-3, THYR, 2275-, 2132-02 #### [facility] ([id number]) [address], [address] [place] [address] MCHC (RBC) [Mass/Vol] 35.4 g/dL Normal 32-36 [facility] Comment on above: Performed By: #### C BCA, CMP, FEPR, 31053-0, THYR, 2276-4, 2132-02 #### [facility] ([id number]) [address], [address] [place] [address] MCV (RBC) [Entitic vol] 88 fL Normal 80-100 [facility] Comment on above: Performed By: #### C BCA, CMP, FEPR, 58988-0, THYR, 2275-09, 2132-02 #### [facility] ([id number]) [address], [address] [place] [address] Monocytes (Bld) [#/Vol] 0.4 10*3/uL Normal 0-0.9 [facility] Comment on above: Performed By: #### C BCA, CMP, FEPR, 81069-5, THYR, 2275-09, 2132-02 #### [facility] ([id number]) [address], [address] [place] [address] Monocytes/100 WBC (Bld) 8.4 % Normal [facility] Comment on above: Performed By: #### C BCA, CMP, FEPR, 52003-6, THYR, 2275-09, 2132-02 #### [facility] ([id number]) [address], [address] [place] [address] Neutrophils/100 WBC (Bld) 58.7 % Normal [facility] Comment on above: Performed By: #### C BCA, CMP, FEPR, 28528-6, THYR, 2275-09, 2132-02 #### [facility] ([id number]) [address], [address] [place] [address] Platelet mean volume (Bld) [Entitic vol] 8.5 fL Normal 7-12 [facility] Comment on above: Performed By: #### C BCA, CMP, FEPR, 15198-7, THYR, 2275-09, 2132-02 #### [facility] ([id number]) [address], [address] [place] [address] Platelets (Bld) [#/Vol] 234 10*3/uL Normal 150-450 [facility] Comment on above: Performed By: #### C BCA, CMP, FEPR, 76582-4, THYR, 2276-4, 2132-02 #### [facility] ([id number]) [address], [address] [place] [address] RBC COUNT 4.13 X10E12/L Normal 3.80-5.20 [facility] Comment on above: Performed By: #### C BCA, CMP, FEPR, 60631-6, THYR, 2275-, 2132-02 #### [facility] ([id number]) [address] [address] WBC (Bld) [#/Vol] 5.3 10*3/uL Normal 4.0-11.0 [facility] Comment on above: Performed By: #### C BCA, CMP, FEPR, 54937-2, THYR, 2275-, 2132-02 #### [facility] ([id number]) [address] [place] [address] COMPREHENSIVE METABOLIC PANE Malachi 03-15-2024 Albumin [Mass/Vol] 4.4 g/dL Normal 3.2-5.3 [facility] Comment on above: Performed By: #### C BCA, CMP, FEPR, 33928-6, THYR, 2276-4, 2132-02 #### [facility] ([id number]) [address] [place] [address] ALP [Catalytic activity/Vol] 52 U/L Normal 39-130 [facility] Comment on above: Performed By: #### C BCA, CMP, FEPR, 05181-2, THYR, 227-4, 2132-02 #### [facility] ([id number]) [address], [address] [place] [address] ALT [Catalytic activity/Vol] 16 U/L Normal 0-31 [facility] Comment on above: Performed By: #### C BCA, CMP, FEPR, 89662-3, THYR, 2275-09, 2132-02 #### [facility] ([id number]) [address], [address] [place] [address] Anion gap [Moles/Vol] 9 mmol/L Normal 5-15 [facility] Comment on above: Performed By: #### C BCA, CMP, FEPR, 00054-8, THYR, 2275-09, 2132-02 #### [facility] ([id number]) [address], [address] [place] [address] AST [Catalytic activity/Vol] 19 U/L Normal 0-41 [facility] Comment on above: Performed By: #### C BCA, CMP, FEPR, 11955-9, THYR, 2275-09, 2132-02 #### [facility] ([id number]) [address], [address] [place] [address] Bilirubin [Mass/Vol] 0.5 mg/dL Normal 0.3-1.2 [facility] Comment on above: Performed By: #### C BCA, CMP, FEPR, 57755-7, THYR, 2275-09, 2132-02 #### [facility] ([id number]) [address], [address] [place] [address] Calcium [Mass/Vol] 9.3 mg/dL Normal 8.5-10.5 [facility] Comment on above: Performed By: #### C BCA, CMP, FEPR, 69020-1, THYR, 2275-09, 2132-02 #### [facility] ([id number]) [address], [address] [place] [address] Chloride [Moles/Vol] 104 mmol/L Normal 98-109 [facility] Comment on above: Performed By: #### C BCA, CMP, FEPR, 23837-7, THYR, 2275-09, 2132-02 #### [facility] ([id number]) [address], [address] [place] [address] CO2 [Moles/Vol] 27 mmol/L Normal 22-32 [facility] Comment on above: Performed By: #### C BCA, CMP, FEPR, 83518-8, THYR, 2275-09, 2132-02 #### [facility] ([id number]) [address], [address] [place] [address] Creatinine [Mass/Vol] 0.60 mg/dL Normal 0.40-1.00 [facility] Comment on above: Result Comment: METH OD TRACEABLE TO IDMS STANDARD Performed By: #### C BCA, CMP, FEPR, 11816-2, THYR, 2275-09, 2132-02 #### [facility] ([id number]) [address], [address] [place] [address] eGFR (CKD-EPI) NON-RACE DEPENDENT >90 Normal >59 [facility] Comment on above: Result Comment: Reported eGFR is based on the CKD-EPI 2020 equation that does not use a race coefficient. Performed By: #### C BCA, CMP, FEPR, 97515-7, THYR, 2275-09, 2132-02 #### [facility] ([id number]) [address], [address] [place] [address] Glucose [Mass/Vol] 75 mg/dL Normal 65-99 [facility] Comment on above: Performed By: #### C BCA, CMP, FEPR, 96037-7, THYR, 2275-09, 2132-02 #### [facility] ([id number]) [address], [address] [place] [address] Potassium [Moles/Vol] 4.2 mmol/L Normal 3.5-5.0 [facility] Comment on above: Performed By: #### C BCA, CMP, FEPR, 65942-2, THYR, 2275-09, 2132-02 #### [facility] ([id number]) [address], [address] [place] [address] Protein [Mass/Vol] 7.5 g/dL Normal 6.0-8.0 [facility] Comment on above: Performed By: #### C BCA, CMP, FEPR, 67717-5, THYR, 2275-09, 2132-02 #### [facility] ([id number]) [address], [address] [place] [address] Sodium [Moles/Vol] 140 mmol/L Normal 134-146 [facility] Comment on above: Performed By: #### C BCA, CMP, FEPR, 18019-7, THYR, 2275-09, 2132-02 #### [facility] ([id number]) [address], [address] [place] [address] Urea nitrogen [Mass/Vol] 10 mg/dL Normal 5-23 [facility] Comment on above: Performed By: #### C BCA, CMP, FEPR, 46855-0, THYR, 2275-09, 2132-02 #### [facility] ([id number]) [address], [address] [place] [address] FERRITINon 03-15-2024 Ferritin [Mass/Vol] 55 ng/mL Normal 11-307 [facility] Comment on above: Performed By: #### C BCA, CMP, FEPR, 33311-5, THYR, 2275-09, 2132-02 #### [facility] ([id number]) [address], [address] [place] [address] IRON PROFILEon 03-15-2024 Iron [Mass/Vol] 126 ug/dL Normal 50-170 [facility] Comment on above: Performed By: #### C BCA, CMP, FEPR, 96097-8, THYR, 2275-, 2132-02 #### [facility] ([id number]) [address], [address] [place] [address] IRON BINDING 351 ug/dL Normal 250-425 [facility] Comment on above: Performed By: #### C BCA, CMP, FEPR, 80547-5, THYR, 2275-, 2132-02 #### [facility] ([id number]) [address], [address] [place] [address] IRON SATURATION 36 % SATURATION Normal 15-50 [facility] Comment on above: Performed By: #### C BCA, CMP, FEPR, 56493-1, THYR, 2275-, 2132-02 #### [facility] ([id number]) [address], [address] [place] [address] Lipid 1996 panelon 4 Cholesterol [Mass/Vol] 164 mg/dL Normal 150-200 [facility] Comment on above: Performed By: #### C BCA, CMP, FEPR, 90474-5, THYR, 2275-, 2132-02 #### [facility] ([id number]) [address], [address] [place] [address] Cholesterol in HDL [Mass/Vol] 57 mg/dL Normal >39 [facility] Comment on above: Result Comment: HDL <40 mg/dL - High Risk HDL > or = 40mg/dL- Desirable HDL >60 mg/dL - Negative Risk Performed By: #### C BCA, CMP, FEPR, 37506-0, THYR, 2275-, 2132-02 #### [facility] ([id number]) [address], [address] [address] Cholesterol in LDL [Mass/Vol] 84 mg/dL Normal <130 [facility] Comment on above: Result Comment: LDL <100 mg/dL - Desirable LDL >160 mg/dL - High Risk Performed By: #### C BCA, CMP, FEPR, 68107-2, THYR, 2275-4, 2132-02 #### [facility] ([id number]) [address] [address] Cholesterol in VLDL [Mass/Vol] 23 mg/dL Normal 0-30 [facility] Comment on above: Performed By: #### C BCA, CMP, FEPR, 04713-9, THYR, 2275-, 2132-02 #### [facility] ([id number]) [address] [address] CHOLESTEROL:HDL 2.9 Normal 1.0-5.0 [facility] Comment on above: Performed By: #### C BCA, CMP, FEPR, 62185-3, THYR, 2275-, 2132-02 #### [facility] ([id number]) [address] [address] Triglyceride [Mass/Vol] 115 mg/dL Normal 27-150 [facility] Comment on above: Performed By: #### C BCA, CMP, FEPR, 07464-7, THYR, 2275-4, 2132-02 #### [facility] ([id number]) [address] [address] THYROID PROFILEon 03-15-2024 Free T4 [Mass/Vol] 0.74 ng/dL Normal 0.61-1.60 [facility] Comment on above: Performed By: #### C BCA, CMP, FEPR, 07576-5, THYR, 2275-09, 2132-02 #### [facility] ([id number]) [address] [place] [address] TSH 2.68 uIU/mL Normal 0.49-4.67 [facility] Comment on above: Performed By: #### C BCA, CMP, FEPR, 76069-0, THYR, 2275-09, 2132-02 #### [facility] ([id number]) [address], [address] [place] [address] VITAMIN B12on 03-15-2024 Cobalamin (Vitamin B12) [Mass/Vol] 537 pg/mL Normal 180-914 [facility] Comment on above: Performed By: #### C BCA, CMP, FEPR, 61086-2, THYR, 2275-09, 2132-02 #### [facility] ([id number]) [address], [address] [place] [address] POCT urinalysis dipstick onl yon 01-20-2024 Appearance (U) Cloudy [facility] External Poct Urine Bilirubin Negative [facility] External Poct Urine Blood Trace [facility] External Poct Urine Character Malodorous [facility] External Poct Urine Color Dark Yellow [facility] External Poct Urine Glucose Negative [facility] External Poct Urine Ketones Trace [facility] External Poct Urine Leukocyte Esterase Large [facility] External Poct Urine Nitrite Negative [facility] External Poct Urine Ph 5.0 Pr [facility] External Poct Urine Protein 3+ [facility] External Poct Urine Specific [place] 1.000 [facility] External Poct Urine Urobilinogen 0.2 [facility] URINE CULTUREon 01-20-2024 Bacteria identified Cx Nom [...] TRIMETH/SULFAMETHOXA ZOLE R >=16/304 F Resistant [facility] Comment on above: Performed By: #### 6 30-4 #### [facility] ([id number]) [address], [address] [place] [address] Basic Metabolic Vasquez w/Rfx A1 Con 12-08-2023 GFR/1.73 sq M.predicted MDRD (S/P/Bld) [Vol rate/Area] mL/min/{1.73_m2} Normal [facility] Comment on above: Performed By: #### E BS LIPID, EMP BMP #### [facility] [address] [id number] [place] Calcium [Mass/volume] in Ser um or PlasmaOrdered By: Janna Escalera on 12-08-2023 Calcium [Mass/Vol] 9.5 mg/dL Normal 8.6-10.3 [facility] Comment on above: Performed By: #### E BS LIPID, EMP BMP #### [facility] [address] [place] [address] [place] Carbon dioxide, total [Moles /volume] in Serum or PlasmaOrdered By: Janna Escalera on 12-08-2023 CO2 [Moles/Vol] 29.1 mmol/L Normal 21.0-31.0 [facility] Comment on above: Performed By: #### E BS LIPID, EMP BMP #### [facility] [address] [id number] [place] Chloride [Moles/volume] in S radha or PlasmaOrdered By: Janna Ecsalera on 12-08-2023 Chloride [Moles/Vol] 105 mmol/L Normal 98-107 [facility] Comment on above: Performed By: #### E BS LIPID, EMP BMP #### [facility] [address] [place] [address] [place] Cholesterol [Mass/volume] in Serum or PlasmaOrdered By: Janna Escalera on 12-08-2023 Cholesterol [Mass/Vol] 163 mg/dL Normal 140-200 [facility] Comment on above: Chol less than 200 m g/dl low riskChol 201-239 mg/dl borderline riskChol 240 mg/dl and greater high risk Result Comment: Chol less than 200 mg/dl low risk Chol 201-239 mg/dl borderline risk Chol 240 mg/dl and greater high risk Performed By: #### E BS LIPID, EMP BMP #### [facility] [address] [place] [address] [place] Cholesterol in LDL Calc [Mas s/Vol]Ordered By: Janna Escalera on 12-08-2023 Cholesterol in LDL [Mass/Vol] 84 mg/dL 0-100 [facility] Comment on above: LDL ATP III CLASSIFI CATIONLDL less than 100 mg/dL OptimalLDL 100-129 mg/dL Near or above optimalLDL 130-159 mg/dL Borderline highLDL 160-189 mg/dL HighLDL greater than 189 mg/dL Very high Cholesterol in VLDL Calc [Ma ss/Vol]Ordered By: Janna Escalera on 12-08-2023 Cholesterol in VLDL [Mass/Vol] 17 mg/dL [facility] Creatinine [Mass/volume] in Serum or PlasmaOrdered By: Janna Escalera on 12-08-2023 Creatinine [Mass/Vol] 0.69 mg/dL Normal 0.60-1.20 [facility] Comment on above: Performed By: #### E BS LIPID, EMP BMP #### [facility] [address] [place] [address] [place] Glucose [Mass/volume] in Ser um or PlasmaOrdered By: Janna Escalera on 12-08-2023 Glucose [Mass/Vol] 83 mg/dL Normal 70-100 [facility] Comment on above: Performed By: #### E BS LIPID, EMP BMP #### [facility] [address] [place] [address] [place] Lipid Profileon 12-08-2023 LDL Cholesterol,Calculated 84 mg/dL Normal 0-100 [facility] Comment on above: Result Comment: LDL ATP III CLASSIFICATION LDL less than 100 mg/dL Optimal LDL 100-129 mg/dL Near or above optimal LDL 130-159 mg/dL Borderline high LDL 160-189 mg/dL High LDL greater than 189 mg/dL Very high Performed By: #### E BS LIPID, EMP BMP #### [facility] [address] Triglyceride w/Reflex 87 mg/dL Normal 0-149 [facility] Comment on above: Result Comment: TRIG ATP III CLASSIFICATION TRIG less than 150 mg/dL Normal TRIG 150-199 mg/dL Borderline high TRIG 200-500 mg/dL High TRIG greater than 500 mg/dL Very high Standard traceable to the Center for Disease Conrtrol and Prevention (CDC) test method. Performed By: #### E BS LIPID, EMP BMP #### [address] VLDL CHOLESTEROL 17 mg/dL Normal [facility] Comment on above: Performed By: #### E BS LIPID, EMP BMP #### [address] No Panel InformationOrdered By: Janna Escalera on 12-08-2023 Estimated GFR (CKD-EPI) > 60.0 mL/Min [facility] Creatinine Clearance (Chem N/A [facility] Potassium [Moles/volume] in Serum or PlasmaOrdered By: Janna Escalera on 12-08-2023 Potassium [Moles/Vol] 3.6 mmol/L Normal 3.5-5.1 [facility] Comment on above: Performed By: #### E BS LIPID, EMP BMP #### [facility] [address] [place] [address] Serum or plasma anion gap de terminationOrdered By: Janna Escalera on 12-08-2023 Anion gap [Moles/Vol] 10.5 mmol/L Normal 6.0-15.0 [facility] Comment on above: Performed By: #### E BS LIPID, EMP BMP #### [facility] [address] [place] [address] [place] Serum or plasma high density lipoprotein (HDL) cholesterol measurementOrdered By: Janna Escalera on 12-08-2023 Cholesterol in HDL [Mass/Vol] 62 mg/dL Normal 23-92 [facility] Comment on above: HDL CHOL ATP-III CLA SSIFICATION Cardiovascular RiskHDL > or equal to 60 mg/dL LOWHDL < 40 mg/dL HIGH Result Comment: HDL CHOL ATP-III CLASSIFICATION Cardiovascular Risk HDL > or equal to 60 mg/dL LOW HDL < 40 mg/dL HIGH Performed By: #### E BS LIPID, EMP BMP #### [facility] [address] Serum or plasma total choles terol/high density lipoprotein (HDL) cholesterol mass ratOrdered By: Janna Escalera on 12-08-2023 Cholesterol.total/Chol esterol in HDL [Mass ratio] 2.6 {ratio} Normal <5.0 [facility] Comment on above: Result Comment: PERF ORMED BY: [place] [address] PATHOLOGIST BACTERIOLOGIST PHARMACEUTICAL CHERYL GEORGE M.D. Performed By: #### E BS LIPID, EMP BMP #### [facility] [address] [place] [address] [place] Sodium [Moles/volume] in Ser um or PlasmaOrdered By: Janna Escalera on 12-08-2023 Sodium [Moles/Vol] 141 mmol/L Normal 136-145 [facility] Comment on above: Performed By: #### E BS LIPID, EMP BMP #### [facility] [address] [place] [address] [place] Triglyceride [Mass/volume] i n Serum or PlasmaOrdered By: Janna Escalera on 12-08-2023 Triglyceride [Mass/Vol] 87 mg/dL 0-149 [facility] Comment on above: TRIG ATP III CLASSIF ICATIONTRIG less than 150 mg/dL NormalTRIG 150-199 mg/dL Borderline highTRIG 200-500 mg/dL High TRIG greater than 500 mg/dL Very highStandard traceable to the Center for Disease Conrtrol and Prevention (CDC) test method. Urea nitrogen [Mass/volume] in Serum or PlasmaOrdered By: Janna Escalera on 12-08-2023 Urea nitrogen [Mass/Vol] 14 mg/dL Normal 7-25 [facility] Comment on above: Performed By: #### E BS LIPID, EMP BMP #### [facility] [address] [id number] [facility] MRI HIP RIGHT W CONTRASTon [...] Tucker Ashby MD 06/08/22 Final result Normal [facility] IR INJ ARTHROGRAM HIP RIGHTo n [...] 120.55 uGy cm 2 Views: 3 PROCEDURE: WAITSTAFF CAPTAIN: Elijah Houston This procedure was performed by [...] Eric Rae MD 06/05/22 Final result Normal [facility] Successful fluoroscopic-guided right hip arthrogram. Patient was transferred to MRI for further imaging. [facility] RIS CONSOLIDATED EXAMINATION: FLUOROSCOPIC GUIDED RIGHT HIP ARTHROGRAM, 06/05/2022 2:50 pm COMPARISON: None. HISTORY: ORDERING SYSTEM PROVIDED HISTORY: Tear of right acetabular labrum, initial encounter TECHNOLOGIST PROVIDED HISTORY: r/o R hip labral tear. MRI ordered Is the patient ?->No FLUOROSCOPY DOSE AND TYPE OR TIME AND EXPOSURES: Fluoro time 0.3 minutes DAP 120.55 uGy cm 2 Views: 3 PROCEDURE: WAITSTAFF CAPTAIN: Elijah Houston This procedure was performed by [...] and left the Department in stable condition. [facility] RIS CONSOL[facility] Eric Dukes MD - [...] 120.55 uGy cm 2 Views: 3 PROCEDURE: WAITSTAFF CAPTAIN: Elijah Houston This procedure was performed by [...] was transferred to MRI for further imaging. [facility]: Radiology Study observation (narrative) [facility]: IR INJ ARTHROGRAM HIP RIGHTO rdered By: Eric Dukes on 06-05-2022 [facility]: 2018 Novel Coronavirus (CoVI D-19), SAMIR LCon 02-20-2021 SARS-CoV-2 (COVID-19) RNA SAMIR+probe Ql (Unsp spec) Not detected Invalid Interpretation Code Not Detected [facility] Comment on above: Result Comment: This nucleic acid amplification test was developed and its performance characteristics determined by [employer]. Nucleic acid amplification tests include RT- PCR [...] detected) result in this assay. Performed At: [address] [id number] Maritza Uribe PhD Ph:[phone] Performed By: #### 6 [id number] #### [facility] (DEFAULT) [address] [place] [address] Consent Formson 02-19-2021 Consent Forms [id number] [facility] [id number] #[facility] Lab - Toxicology Resultson 0 02-19-2021 Lab - Toxicology Results [id number] #[facility] Outside Recordson 02-19-2021 Outside Records [id number] #[facility] Triage Industrialon 02-20-20 21 Drug Screen Complete Collected [facility] Comment on above: Performed By: #### 1 [id number] #### [facility] (DEFAULT) [address] [place] [address] ED Clinical Summaryon 2020 ED Clinical Summary [facility] ? Urgent Care [address] [place], [place] [id number] Clinical Summary PERSON INFORMATION Name: MADDIE RAMAN Age: 25 Years Sex: FEMALE : 1995 MRN: Acct#: Visit Reason: Medical screening exam; [facility] Arrival: 02/18/2021 13:01:04 Discharge: 02/18/2021 14:21:00 LOS: 000 01:20 Check In: 02/18/2021 13:01:04 Checkout: 02/18/2021 14:21:00 Address: [address] [place] [id number] PCP: Provider, Unlisted PROVIDER INFORMATION Provider Role [...] verbalizes understanding of instructions given Comment: Normal [facility] ED Patient Summaryon 021 ED Patient Summary [facility] ? Urgent Care [address] [place] [address] PATIENT DISCHARGE INSTRUCTIONS Patient Information Name: MADDIE RAMAN Age: 25 Years Date of : 1995 Reason For Visit: [facility] Ar[facility] Time: 02/18/2021 13:01:04 Primary Care Physician: Provider, Unlisted Attending Physician: Adam Moncada PA-C Comment: Patient Education Medication Information: The exam and treatment you received today in the [facility] Emergency Department were for an urgent problem and are not intended as complete care. It is important for you to follow up with a doctor, nurse practitioner, or physician?s curriculum assistant for ongoing care. If your symptoms [...] so we can reach you if necessary. [facility] Emergency Department has provided you with a complete list of medications post discharge. 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 Any specific questions regarding your chronic medications and dosages should be discussed with your primary care physician(s) and/or pharmacist. Visit Information Visit Diagnosis: Diagnoses This Visit Medical screening exam ([id number]) If you received any narcotics, sedation, or [...] Reason for Visit: Patient arrives to for [facility] physical Allergies: Substance Reaction Symptoms Type Comments [...] for Disease Control and Prevention February 2014 [facility] Note- Provideron 02-18-2021 Urgent Care Note- Provider Patient: MADDIE RAMAN Age: 25 years Sex: FEMALE : 1995 Associated Diagnoses: None Author: Adam Moncada PA-C Basic Information Additional information: Chief Complaint from Nursing Triage Note : Chief Complaint 02/18/2021 13:34 EDT Chief Complaint Patient arrives to for [place] physical . History of Present Illness Patient presents for a pre-employment physical. She is cleared for work. Exam is normal. See scanned document. PSYCHIATRIC: Mood and affect appropriate. Health Status Allergies: Allergic Reactions (Selected) No known allergies. Past Medical/ Family/ Social History Medical history: No active or resolved past medical history items have been selected or recorded.. Surgical history: Cholecystectomy ([id number]). Hip replacement ([id number]). delivery ([id number]). Cardiac ablation system ([id number]).. Family history: No family history items have [...] % Oxygen Therapy Room air . Normal [facility] Recordon 021 Urgent Care Record [facility] ? Urgent Care [address] [place] [address] PATIENT DISCHARGE INSTRUCTIONS Patient Information Name: MADDIE RAMAN Age: 25 Years Date of : 1995 Reason For Visit: Medical screening exam; [facility] Arrival Time: 02/18/2021 13:01:04 Primary Care Physician: Provider, Unlisted Attending Physician: Adam Moncada PA-C Comment: Visit Diagnosis: Diagnoses This Visit Medical screening exam ([id number]) If you received any narcotics, sedation, or [...] and treatment you received today in the [facility] Care were for an urgent problem and are not intended as complete care. It is important for you to follow up with a doctor, nurse practitioner, or physician?s curriculum assistant for ongoing care. If your symptoms [...] so we can reach you if necessary. [facility] has provided you with a complete list of medications post discharge. 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 whipped topping mixer/provider of your visit and for further instruction [...] for Disease Control and Prevention February 2014 [facility] PROGESTERONEon 05-25-2020 Progesterone 3.3 ng/mL Normal [facility] Comment on above: Result Comment: Foll icular phase 0.1 - 0.9 Luteal phase 1.8 - 23.9 Ovulation phase 0.1 - 12.0 First trimester 11.0 - 44.3 Second trimester 25.4 - 83.3 Third trimester 58.7 - 214.0 Postmenopausal 0.0 - 0.1 Performed By: #### P ROSA #### [facility] [address] [place], [place] [address] Sebastian Ordoñez Hgb/Hcton 02-22-2019 Hematocrit (Bld) [Volume fraction] 28.7 % Low 36-46 [facility] Comment on above: Performed By: #### H H #### [facility] [address] [place], [place] [id number] Catering Truck Operator: Remy Haq DO Hemoglobin (Bld) [Mass/Vol] 9.4 g/dL Low 12.0-16.0 [facility] Comment on above: Performed By: #### H H #### [facility] [address] [place], [place] [id number] Catering Truck Operator: Remy Haq DO Basic Metabolic Profon 02-20 (cont.) Normal [facility] Comment on above: Result Comment: Aver age GFR for 20-29 years old: 116 mL/min/1.73sq m Chronic Kidney Disease: <60 mL/min/1.73sq m Kidney failure: <15 mL/min/1.73sq m eGFR calculated using average adult body mass. Additional eGFR calculator available at: http://www.Proxible.Valderm/multiple_crcl_2011.htm Performed By: #### C BC, BMP #### [facility] [address] [place] [address] [employer]atering [employer] Operator: Remy Haq DO Anion gap [Moles/Vol] 13 mmol/L Normal 9-17 [facility] Comment on above: Performed By: #### C BC, BMP #### [facility] [address] [place] [address] [employer]ing [employer] Operator: Remy Haq DO Calcium [Mass/Vol] 8.8 mg/dL Normal 8.6-10.4 [facility] Comment on above: Performed By: #### C JAMA, BMP #### [facility] [place] [address] [employer]atering Truck Operator: Remy Haq DO Chloride [Moles/Vol] 103 mmol/L Normal 98-107 [facility] Comment on above: Performed By: #### C JAMA, BMP #### [facility] [place] [address] [employer]ing Truck Operator: Remy Haq DO CO2 [Moles/Vol] 25 mmol/L Normal 20-31 [facility] Comment on above: Performed By: #### C JAMA, BMP #### [facility] [facility] [place] [address] Catering Truck Operator: Remy Haq DO Creatinine [Mass/Vol] 0.72 mg/dL Normal 0.50-0.90 [facility] Comment on above: Performed By: #### C JAMA, BMP #### [facility] [place] [address] [employer]atering [employer] Operator: Remy Haq DO GFR, Amer >60 Normal >60 [facility] Comment on above: Performed By: #### C BC, BMP #### [facility] [address] [place] [address] [employer]atering Truck Operator: Remy Haq DO GFR,non Amer >60 Normal >60 [facility] Comment on above: Performed By: #### C JAMA, BMP #### [facility] [address] [place] [address] Catering Truck Operator: Remy Haq DO Glucose [Mass/Vol] 96 mg/dL Normal 70-99 [facility] Comment on above: Performed By: #### C JAMA, BMP #### [facility] [address] [place] [address] [employer]atering Truck Operator: Remy Haq DO Potassium [Moles/Vol] 4.0 mmol/L Normal 3.7-5.3 [facility] Comment on above: Performed By: #### Joy YUN, BMP #### [facility] [place] [address] [employer]ing Truck Operator: Remy Haq DO Sodium [Moles/Vol] 141 mmol/L Normal 135-144 [facility] Comment on above: Performed By: #### Joy YUN, BMP #### [facility] [place] [address] [employer]ing [employer] Operator: Remy Haq DO Urea nitrogen [Mass/Vol] 10 mg/dL Normal 6-20 [facility] Comment on above: Performed By: #### C JAMA, BMP #### [facility] [address] [place] [address] [employer]atering Truck Operator: Remy Haq DO BUN/CRE Ratio NOT REPORTED Normal 9-20 [facility] Comment on above: Performed By: #### C JAMA, BMP #### [facility] [place] [address] Catering Truck Operator: Remy Haq DO Staging: NOT REPORTED Normal [facility] Comment on above: Performed By: #### Joy YUN, BMP #### [facility] [address] [place] [address] [employer]atering [employer] Operator: Remy Haq DO CBCon 02-20-2019 Erythrocyte distribution width (RBC) [Ratio] 16.5 % High 11.5-14.9 [facility] Comment on above: Performed By: #### Joy YUN, BMP #### [facility] [address] [place] [address] Catering Truck Operator: Remy Haq DO Hematocrit (Bld) [Volume fraction] 25.9 % Low 36-46 [facility] Comment on above: Performed By: #### Joy YUN, BMP #### [facility] [address] [place] [address] C[employer]ing [employer] Operator: Remy Haq DO Hemoglobin (Bld) [Mass/Vol] 8.6 g/dL Low 12.0-16.0 [facility] Comment on above: Performed By: #### Joy YUN, BMP #### [facility] [address] [place] [address] Catering [employer] Operator: Remy Haq DO MCH (RBC) [Entitic mass] 28.2 pg Normal 26-34 [facility] Comment on above: Performed By: #### Joy YUN, BMP #### [facility] [address] [place] [address] Catering Truck Operator: Remy Haq DO MCHC (RBC) [Mass/Vol] 33.0 g/dL Normal 31-37 [facility] Comment on above: Performed By: #### Joy YUN, BMP #### [facility] [address] [place] [address] Catering Truck Operator: Remy Haq DO MCV (RBC) [Entitic vol] 85.4 fL Normal 80-100 [facility] Comment on above: Performed By: #### Joy YUN, BMP #### [facility] [address] [facility] [address] Catering Truck Operator: Remy Haq DO Platelet mean volume (Bld) [Entitic vol] 6.7 fL Normal 6.0-12.0 [facility] Comment on above: Performed By: #### Joy YUN, BMP #### [facility] [address] Catering Truck Operator: Remy Haq DO Platelets (Bld) [#/Vol] 419 10*3/uL Normal 150-450 [facility] Comment on above: Performed By: #### Joy YUN, BMP #### [facility] [address] Catering Truck Operator: Remy Haq DO RBC (Bld) [#/Vol] 3.03 10*6/uL Low 4.0-5.2 [facility] Comment on above: Performed By: #### Joy YUN, BMP #### [facility] [address] Catering Truck Operator: Remy Haq DO WBC (Bld) [#/Vol] 6.3 10*3/uL Normal 3.5-11.0 [facility] Comment on above: Performed By: #### Joy YUN, BMP #### [facility] [address] [place] [address] Catering Truck Operator: Remy Haq DO NRBC Automated NOT REPORTED Normal [facility] Comment on above: Performed By: #### Joy YUN, BMP #### [facility] [address] [place] [address] Catering Truck Operator: Remy Haq DO Hgb/Hcton 02-20-2019 Hematocrit (Bld) [Volume fraction] 29.6 % Low 36-46 [facility] Comment on above: Performed By: #### H H #### [facility] [address] [place] [address] Catering Truck Operator: Remy Haq DO Hemoglobin (Bld) [Mass/Vol] 9.7 g/dL Low 12.0-16.0 [facility] Comment on above: Performed By: #### H H #### [facility] [place] [address] Catering Truck Operator: Remy Haq DO CBCon 02-19-2019 Erythrocyte distribution width (RBC) [Ratio] 16.6 % High 11.5-14.9 [facility] Comment on above: Performed By: #### C BC #### [facility] [address] [place] [address] Catering Truck Operator: Remy Haq DO Hematocrit (Bld) [Volume fraction] 23.2 % Low 36-46 [facility] Comment on above: Performed By: #### C BC #### [facility] [address] [place] [address] Catering Truck Operator: Remy Haq DO Hemoglobin (Bld) [Mass/Vol] 7.6 g/dL Low 12.0-16.0 [facility] Comment on above: Performed By: #### C BC #### [facility] [address] [place] [address] Catering [employer] Operator: Remy Haq DO MCH (RBC) [Entitic mass] 27.8 pg Normal 26-34 [facility] Comment on above: Performed By: #### C BC #### [facility] [address] [place] [address] Catering Truck Operator: Remy Haq DO MCHC (RBC) [Mass/Vol] 32.7 g/dL Normal 31-37 [facility] Comment on above: Performed By: #### C BC #### [facility] [address] [facility] [address] Catering Truck Operator: Remy Haq DO MCV (RBC) [Entitic vol] 85.0 fL Normal 80-100 [facility] Comment on above: Performed By: #### C BC #### [facility] [address] [facility] [address] Catering Truck Operator: Remy Haq DO Platelet mean volume (Bld) [Entitic vol] 6.5 fL Normal 6.0-12.0 [facility] Comment on above: Performed By: #### C BC #### [facility] [address] [place] [address] Catering Truck Operator: Remy Haq DO Platelets (Bld) [#/Vol] 444 10*3/uL Normal 150-450 [facility] Comment on above: Performed By: #### C BC #### [facility] [address] [place] [address] Catering Truck Operator: Remy Haq DO RBC (Bld) [#/Vol] 2.73 10*6/uL Low 4.0-5.2 [facility] Comment on above: Performed By: #### C BC #### [facility] [address] [place] [address] Catering Truck Operator: Remy Haq DO WBC (Bld) [#/Vol] 5.1 10*3/uL Normal 3.5-11.0 [facility] Comment on above: Performed By: #### C BC #### [facility] [address] [place] [address] Catering Truck Operator: Remy Haq DO NRBC Automated NOT REPORTED Normal [facility] Comment on above: Performed By: #### C BC #### [facility] [address] [facility] [address] Catering Truck Operator: Remy Haq DO Type + Crossmatchon 02-20-20 19 Type + Crossmatch Sample Expiration 02/22/2019 Arm Band Number [id number] ABO/Rh(D) A POSITIVE Antibody Screen NEGATIVE Blood Bank Comment Pt's ABRh confirmed as A POS:402 Results Verified BLANCHE, Polyspecific NEGATIVE BLANCHE, Anti-IgG [place] Serum NEGATIVE Antibody Ident Anti-[place](A) Present Unit Number [id number] Blood Component Type Leukocyte Reduced Red Cell Unit Division 00 Status of Unit TRANSFUSED Transfusion Status OK TO TRANSFUSE Crossmatch Result COMPATIBLE Normal [facility] Comment on above: Performed By: #### T YX #### [facility] [address] [place] [address] Catering Truck Operator: Remy Haq DO Basic Metab w/rfx MGon 02-16 (cont.) Normal [facility] Comment on above: Result Comment: Aver age GFR for 20-29 years old: 116 mL/min/1.73sq m Chronic Kidney Disease: <60 mL/min/1.73sq m Kidney failure: <15 mL/min/1.73sq m eGFR calculated using average adult body mass. Additional eGFR calculator available at: http://www.Proxible.Valderm/multiple_crcl_2012.htm Performed By: #### B MPX, CBC #### [facility] [address] [place] [address] Catering Truck Operator: Remy Haq DO Anion gap [Moles/Vol] 11 mmol/L Normal 9-17 [facility] Comment on above: Performed By: #### B MPX, CBC #### [facility] [address] [place] [address] Catering Truck Operator: Remy Haq DO Calcium [Mass/Vol] 8.6 mg/dL Normal 8.6-10.4 [facility] Comment on above: Performed By: #### B MPX, CBC #### [facility] [address] [facility] [place] [address] Catering Truck Operator: Remy Haq DO Chloride [Moles/Vol] 100 mmol/L Normal 98-107 [facility] Comment on above: Performed By: #### B MPX, CBC #### [facility] [address] [facility] [address] Catering Truck Operator: Remy Haq DO CO2 [Moles/Vol] 26 mmol/L Normal 20-31 [facility] Comment on above: Performed By: #### B MPX, CBC #### [facility] [address] Catering Truck Operator: Remy Haq DO Creatinine [Mass/Vol] 0.62 mg/dL Normal 0.50-0.90 [facility] Comment on above: Performed By: #### B MPX, CBC #### [facility] [address] Catering Truck Operator: Remy Haq DO GFR, Amer >60 Normal >60 [facility] Comment on above: Performed By: #### B MPX, CBC #### [facility] [address] Catering Truck Operator: Remy Haq DO GFR,non Amer >60 Normal >60 [facility] Comment on above: Performed By: #### B MPX, CBC #### [facility] [address] Catering Truck Operator: Remy Haq DO Glucose [Mass/Vol] 95 mg/dL Normal 70-99 [facility] Comment on above: Performed By: #### B MPX, CBC #### [facility] [address] Catering Truck Operator: Remy Haq DO Potassium [Moles/Vol] 4.2 mmol/L Normal 3.7-5.3 [facility] Comment on above: Performed By: #### B MPX, CBC #### [facility] [address] [place] [address] Catering Truck Operator: Remy Haq DO Sodium [Moles/Vol] 137 mmol/L Normal 135-144 [facility] Comment on above: Performed By: #### B MPX, CBC #### [facility] [place] [address] Catering Truck Operator: Remy Haq DO Urea nitrogen [Mass/Vol] 11 mg/dL Normal 6-20 [facility] Comment on above: Performed By: #### B MPX, CBC #### [facility] [address] [place] [address] Catering Truck Operator: Remy Haq DO BUN/CRE Ratio NOT REPORTED Normal 9-20 [facility] Comment on above: Performed By: #### B MPX, CBC #### [facility] [place] [address] Catering Truck Operator: Remy Haq DO Staging: NOT REPORTED Normal [facility] Comment on above: Performed By: #### B MPX, CBC #### [facility] [address] [place] [address] Catering Truck Operator: Remy Haq DO CBCon 02-16-2019 Erythrocyte distribution width (RBC) [Ratio] 16.3 % High 11.5-14.9 [facility] Comment on above: Performed By: #### B MPX, CBC #### [facility] [place] [address] Catering Truck Operator: Remy Haq DO Hematocrit (Bld) [Volume fraction] 22.4 % Low 36-46 [facility] Comment on above: Performed By: #### B MPX, CBC #### [facility] [address] [place] [address] Catering Truck Operator: Remy Haq DO Hemoglobin (Bld) [Mass/Vol] 7.6 g/dL Low 12.0-16.0 [facility] Comment on above: Performed By: #### B MPX, CBC #### [facility] [address] [place] [address] Catering Truck Operator: Remy Haq DO MCH (RBC) [Entitic mass] 29.4 pg Normal 26-34 [facility] Comment on above: Performed By: #### B MPX, CBC #### [facility] [address] [place] [address] Catering Truck Operator: Remy Haq DO MCHC (RBC) [Mass/Vol] 33.8 g/dL Normal 31-37 [facility] Comment on above: Performed By: #### B MPX, CBC #### [facility] [address] [place] [address] Catering Truck Operator: Remy Haq DO MCV (RBC) [Entitic vol] 87.1 fL Normal 80-100 [facility] Comment on above: Performed By: #### B MPX, CBC #### [facility] [address] [place] [address] Catering Truck Operator: Remy Haq DO Platelet mean volume (Bld) [Entitic vol] 6.4 fL Normal 6.0-12.0 [facility] Comment on above: Performed By: #### B MPX, CBC #### [facility] [address] [place] [address] Catering Truck Operator: Remy Haq DO Platelets (Bld) [#/Vol] 503 10*3/uL High 150-450 [facility] Comment on above: Performed By: #### B MPX, CBC #### [facility] [address] [facility] [address] Catering Truck Operator: Remy Haq DO RBC (Bld) [#/Vol] 2.57 10*6/uL Low 4.0-5.2 [facility] Comment on above: Performed By: #### Adam MPX, CBC #### [facility] [address] [facility] [address] Catering Truck Operator: Remy Haq DO WBC (Bld) [#/Vol] 7.5 10*3/uL Normal 3.5-11.0 [facility] Comment on above: Performed By: #### Adam MPX, CBC #### [facility] [address] [facility] [address] Catering Truck Operator: Remy Haq DO NRBC Automated NOT REPORTED Normal [facility] Comment on above: Performed By: #### Adam MPX, CBC #### [facility] [address] [facility] [address] Catering Truck Operator: Remy Haq DO Basic Metabolic Panel w/ Ref savanah to MGon 02-15-2019 Anion gap [Moles/Vol] 14 mmol/L 9 - 17 mmol/L [place] Bun/Cre Ratio NOT REPORTED [place] Calcium [Mass/Vol] 8.4 mg/dL Low 8.6 - 10. 4 mg/dL [place] Chloride [Moles/Vol] 102 mmol/L 98 - 10 7 mmol/L [place] CO2 [Moles/Vol] 24 mmol/L 20 - 31 mmol/L [place] Creatinine [Mass/Vol] 0.57 mg/dL 0.5 - 0.9 mg/dL [place] GFR >60 >60 mL/min [place] GFR Non- >60 >60 mL/min [place] GFR/1.73 sq M predicted among non-blacks MDRD (S/P/Bld) [Vol rate/Area] [place] Comment on above: Average GFR for 20-2 9 years old: 116 mL/min/1.73sq m Chronic Kidney Disease: <60 mL/min/1.73sq m Kidney failure: <15 mL/min/1.73sq m eGFR calculated using average adult body mass. Additional eGFR calculator available at: http://www.[employer]/multiple_crcl_2012.htm GFR/1.73 sq M predicted among non-blacks MDRD (S/P/Bld) [Vol rate/Area] NOT REPORTED [place] Glucose [Mass/Vol] 106 mg/dL High 70 - 99 mg/dL [place] Interpretation and review of laboratory results Abnormal [place] Potassium [Moles/Vol] 4.0 mmol/L 3.7 - 5.3 mmol/L [place] Sodium [Moles/Vol] 140 mmol/L 135 - 144 mmol/L [place] Urea nitrogen [Mass/Vol] 11 mg/dL 6 - 20 mg/dL [place] CBC WITH AUTO DIFFERENTIALon 02-15-2019 Basophils (Bld) [#/Vol] 0.06 10*3/uL [place] Basophils/100 WBC (Bld) 1 % 0 - 2 % [place] Differential Type NOT REPORTED [place] Eosinophils (Bld) [#/Vol] 0.33 10*3/uL [place] Eosinophils/100 WBC (Bld) 5 % High 1 - 4 % [place] Erythrocyte distribution width (RBC) [Ratio] 15.3 % High 11.8 - 14.4 % [place] Hematocrit (Bld) [Volume fraction] 24.9 % Low 36.3 - 47.1 % [place] Hemoglobin (Bld) [Mass/Vol] 7.5 g/dL Low 11.9 - 15.1 g/dL [place] Immature granulocytes (Bld) [#/Vol] 1 % High 0 [place] Immature granulocytes (Bld) [#/Vol] 0.10 10*3/uL [place] Interpretation and review of laboratory results Abnormal [place] Lymphocytes (Bld) [#/Vol] 1.93 10*3/uL [place] Lymphocytes/100 WBC (Bld) 27 % 24 - 43 % [place] MCH (RBC) [Entitic mass] 28.2 pg 25.2 - 33.5 pg [place] MCHC (RBC) [Mass/Vol] 30.1 g/dL 28.4 - 34.8 g/dL [place] MCV (RBC) [Entitic vol] 93.6 fL 82.6 - 102.9 fL [place] Monocytes (Bld) [#/Vol] 0.60 10*3/uL [place] Monocytes/100 WBC (Bld) 8 % 3 - 12 % [place] Platelet mean volume (Bld) [Entitic vol] 9.0 fL 8.1 - 13.5 fL [place] Platelets (Bld) [#/Vol] 458 10*3/uL [place] Platelets (Bld) [#/Vol] NOT REPORTED [place] RBC (Bld) [#/Vol] 2.66 10*6/uL Low 3.95 - 5.1 1 m/uL [place] RBC morphology finding Nom (Bld) ANISOCYTOSIS PRESENT [place] Segmented neutrophils/100 WBC (Bld) 58 % 36 - 65 % [place] Segs Absolute 4.19 [place] WBC (Bld) [#/Vol] 7.2 10*3/uL [place] WBC (Bld) [#/Vol] 0.0 10*3/uL 0.0 per 10 0 WBC [place] WBC Morphology NOT REPORTED [place] Basic Metabolic Panel w/ Ref savanah to MGon 02-13-2019 Anion gap [Moles/Vol] 13 mmol/L 9 - 17 mmol/L [place] Bun/Cre Ratio NOT REPORTED [place] Calcium [Mass/Vol] 8.5 mg/dL Low 8.6 - 10. 4 mg/dL [place] Chloride [Moles/Vol] 105 mmol/L 98 - 10 7 mmol/L [place] CO2 [Moles/Vol] 23 mmol/L 20 - 31 mmol/L [place] Creatinine [Mass/Vol] 0.46 mg/dL Low 0.5 - 0.9 mg/dL [place] GFR >60 >60 mL/min [place] GFR Non- >60 >60 mL/min [place] GFR/1.73 sq M predicted among non-blacks MDRD (S/P/Bld) [Vol rate/Area] NOT REPORTED [place] GFR/1.73 sq M predicted among non-blacks MDRD (S/P/Bld) [Vol rate/Area] [place] Comment on above: Average GFR for 20-2 9 years old: 116 mL/min/1.73sq m Chronic Kidney Disease: <60 mL/min/1.73sq m Kidney failure: <15 mL/min/1.73sq m eGFR calculated using average adult body mass. Additional eGFR calculator available at: http://www.[employer]Valder[employer]/multiple_crcl_2012.htm Glucose [Mass/Vol] 86 mg/dL 70 - 99 mg/dL [place] Interpretation and review of laboratory results Abnormal [place] Potassium [Moles/Vol] 4.3 mmol/L 3.7 - 5.3 mmol/L [place] Sodium [Moles/Vol] 141 mmol/L 135 - 144 mmol/L [place] Urea nitrogen [Mass/Vol] 9 mg/dL 6 - 20 mg/dL [place] CBC WITH AUTO DIFFERENTIALon 02-13-2019 Basophils (Bld) [#/Vol] 0.06 10*3/uL [place] Basophils/100 WBC (Bld) 1 % 0 - 2 % [place] Differential Type NOT REPORTED [place] Eosinophils (Bld) [#/Vol] 0.40 10*3/uL [place] Eosinophils/100 WBC (Bld) 5 % High 1 - 4 % [place] Erythrocyte distribution width (RBC) [Ratio] 14.8 % High 11.8 - 14.4 % [place] Hematocrit (Bld) [Volume fraction] 25.0 % Low 36.3 - 47.1 % [place] Hemoglobin (Bld) [Mass/Vol] 7.4 g/dL Low 11.9 - 15.1 g/dL [place] Immature granulocytes (Bld) [#/Vol] 2 % High 0 [place] Immature granulocytes (Bld) [#/Vol] 0.14 10*3/uL [place] Interpretation and review of laboratory results Abnormal [place] Lymphocytes (Bld) [#/Vol] 2.18 10*3/uL [place] Lymphocytes/100 WBC (Bld) 25 % 24 - 43 % [place] MCH (RBC) [Entitic mass] 27.1 pg 25.2 - 33.5 pg [place] MCHC (RBC) [Mass/Vol] 29.6 g/dL 28.4 - 34.8 g/dL [place] MCV (RBC) [Entitic vol] 91.6 fL 82.6 - 102.9 fL [place] Monocytes (Bld) [#/Vol] 0.66 10*3/uL [place] Monocytes/100 WBC (Bld) 8 % 3 - 12 % [place] Platelet mean volume (Bld) [Entitic vol] 8.9 fL 8.1 - 13.5 fL [place] Platelets (Bld) [#/Vol] 440 10*3/uL [place] Platelets (Bld) [#/Vol] NOT REPORTED [place] RBC (Bld) [#/Vol] 2.73 10*6/uL Low 3.95 - 5.1 1 m/uL [facility] morphology finding Nom (Bld) ANISOCYTOSIS PRESENT [facility] Segmented neutrophils/100 WBC (Bld) 61 % 36 - 65 % [facility] Segs Absolute 5.37 [facility] WBC (Bld) [#/Vol] 0.0 10*3/uL 0.0 per 10 0 WBC [facility] WBC (Bld) [#/Vol] 8.8 10*3/uL [facility] WBC Morphology NOT REPORTED [facility] E[facility] Complete 2D W Doppler W Coloron 02-13-2019 Transthoracic Echocardiography Report (TTE) Patient Name CECI PERKINS Date of Study 02/13/2019 C Date of 1995 Gender Female Age 23 year(s) Race Unknown Room Number 0240 Height: 65 inch, 165.1 cm Corporate ID [id number] Weight: 301 pounds, 136.5 kg # Patient Acct [id number] BSA: 2.35 m^2 BMI: 50.09 kg/m^2 # MR # [id number] Social Work Therapist Kaylen Jasso Interpreting Physician Anthony Keating Fellow Referring Nurse Practitioner Interpreting Referring Physician MICHAEL BULLOCK MD Fellow Type of Study TTE procedure:2D Echocardiogram, M-Mode, Doppler, Color Doppler. Procedure Date Date: 02/13/2019 Start: 08:48 AM Study Location: [facility] Technical Quality: Adequate visualization Indications:Irregula [...] Wall E' velocity:0.17 m/s Lateral Wall E/E':5.8 [facility] [place], [place] Tamir, Mhpn Incoming Cardio Results From [facility]/ - 02/13/2019 2:01 PM EDT Transthoracic Echocardiography Report (TTE) Patient Name CECI PERKINS Date of Study 02/13/2019 C Date of 1995 Gender Female Age 23 year(s) Race Unknown Room Number 0240 Height: 65 inch, 165.1 cm Corporate ID [id number] Weight: 301 pounds, 136.5 kg # Patient Acct [id number] BSA: 2.35 m^2 BMI: 50.09 kg/m^2 # MR # [id number] Social Work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 views [place] [employer] Work Phone: Start: 02-01-2019 Radex wrist 2 views Mil o Qian Work Phone: Start: 02-01-2019 Radiologic examinati on femur minimum 2 views Leonel W Butt Work Phone: Start: 02-01-2019 Radiologic examinati on tibia & fibula 2 views Leonel W Butt Work Phone: Start: 02-01-2019 Radex hip unilateral with pelvis 2-3 views Leonel W Butt Work Phone: Start: 02-01-2019 PULSE OXIMETRY, CONTINUOUS Federico [place] Work Phone: Start: 01-31-2019 END TIDAL CO2 CONTINUOUS Federico [place] Work Phone: Start: 01-31-2019 Radex hip unilateral with pelvis 2-3 views Federico [place] Work Phone: Start: 01-31-2019 Radex wrist complete minimum 3 views Federico [place] Work Phone: Start: 01-31-2019 Basic metabolic pane l calcium total Federico Plummer Work Phone: Start: 01-31-2019 Blood count complete auto&auto difrntl wbc Federico Plummer Work Phone: Start: 01-31-2019 Gonadotropin chorion ic qualitative Federico Plummer Work Phone: Start: 01-31-2019 Ecg routine ecg w/le ast 12 lds i&r only Federico Plummer Work Phone: Start: 01-31-2019 EKG REPORT Hpf Scanni ng Plan of Treatment Date Care Activity Detail Author Start: 07-31-2027 Screening for malign ant neoplasm of cervix Pap Smear [employer] Start: 10-05-2025 Adult BMI Screening [facility] Start: 10-05-2025 Tobacco Screening Tobacco Screening [employer] Start: 09-29-2025 End: 09-29-2025 US MFM with or without consult US MFM with or without consult Imaging Routine History of sleeve gastrectomy Hx of supraventricular tachycardia Encounter for follow-up ultrasound of anatomy Encounter for anatomic survey Expected: 09/29/2025 (Approximate), Expires: 09/29/2025 [employer] Phone: Comment on above: Expected: 09/29/2025 (Approximate), Expires: 09/29/2025 Start: 08-24-2025 Adult BMI Screening Adult BMI Screen ing [employer] Start: 08-24-2025 Tobacco Screening Tobacco Screening [employer] Start: 08-24-2025 End: 08-24-2025 US MFM with or without consult US MFM with or without consult Imaging Routine History of sleeve gastrectomy Hx of supraventricular tachycardia Encounter for follow-up ultrasound of anatomy Expected: 08/24/2025 (Approximate), Expires: 08/24/2025 [employer] Phone: Comment on above: Expected: 08/24/2025 (Approximate), Expires: 08/24/2025 Start: 03-15-2025 Adult BMI Screening Adult BMI Screen ing [facility] Start: 03-15-2025 Tobacco Screening Tobacco Screening [facility] Start: 02-19-2025 Influenza vaccination [facility] Start: 01-19-2025 Tobacco Screening Tobacco Screening [facility] Start: 12-21-2024 Adult BMI Screening Adult BMI Screen ing [facility] Start: 12-21-2024 Tobacco Screening Tobacco Screening [facility] Start: 11-18-2024 DTaP,Tdap and Td Vaccines (7 - Td or Tdap) DTaP,Tdap and Td Vaccines (7 - Td or Tdap) [facility] Start: 11-18-2024 DTaP/Tdap/Td vaccine (7 - Td or Tdap) DTaP/Tdap/Td vaccine (7 - Td or Tdap) [facility] Start: 11-18-2024 DTaP/Tdap/Td vaccine (7 - Td) DTaP/Tdap/Td vaccine (7 - Td) [place], [place] Start: 11-09-2024 End: 11-09-2024 Patient encounter procedure 11/09/2024 9:50 AM EDT Routine [facility] [address] [place] [id number] Zoraida Travis PA [address] [place] [address] [facility] Start: 11-06-2024 End: 11-06-2024 Patient encounter procedure 11/06/2024 11:00 AM EDT Appointment [facility] [address] [place] [id number] [facility] Start: 10-25-2024 End: 10-25-2024 Patient encounter procedure [facility] Comment on above: Arrived Start: 10-25-2024 End: 04-27-2025 US biophysical profile w non stress test US biophysical profile w non stress test Imaging Routine H/O gastric sleeve Expected: 10/25/2024 (Approximate), Expires: 04/27/2025 [facility] Work Phone: Comment on above: Expected: 10/25/2024 (Approximate), Expires: 04/27/2025 Start: 10-20-2024 End: 10-20-2024 Telemedicine consultation with patient 10/20/2024 9:45 AM EDT Telemedicine [facility] [address] [place] [id number] Jordan Urbina MD [address] [place] [address] [facility] Start: 10-11-2024 End: 10-11-2024 Patient encounter procedure 10/11/2024 9:40 AM EDT Routine [facility] [address] [facility] [place] [phone] Zoraida Travis PA [address] [place] [address] [facility] Start: 10-05-2024 End: 10-05-2025 Wireless Telemetry (In Office) [facility] Work Phone: Comment on above: Expected: 10/05/2024 , Expires: 10/05/2025 Start: 10-05-2024 End: 10-05-2024 Patient encounter procedure 10/05/2024 8:30 AM EDT Office Visit [facility] [address] [place] [phone] Liang Fitzgerald MD [address] [place] [address] [facility] Start: 09-28-2024 End: 09-28-2024 Patient encounter procedure 09/28/2024 2:45 PM EDT Appointment [facility] Imaging [address] [place] [phone] [facility] US Imaging Start: 09-26-2024 End: 09-26-2024 Patient encounter procedure 09/26/2024 9:50 AM EDT Routine [facility] [address] [facility] [place] [phone] Cedric Warner DO [address] [place], [place] [id number] Arrived [facility] Comment on above: Arrived Start: 08-29-2024 End: 08-29-2024 Patient encounter procedure 08/29/2024 8:30 AM EDT Routine [facility] [address] [facility] [place] [phone] Zoraida Travis PA [address] [place] [address] [facility] Start: 08-25-2024 Adult BMI Screening Adult BMI Screen ing [facility] Start: 08-25-2024 Tobacco Screening Tobacco Screening [facility] Start: 08-24-2024 End: 08-24-2024 Patient encounter procedure [facility] US Imaging Start: 07-31-2024 End: 07-31-2025 US for US OB 14+ weeks anatomy scan Imaging Routine Screening, , for anatomic survey Expected: 07/31/2024, Expires: 07/31/2025 [facility] Comment on above: Expected: 07/31/2024 , Expires: 07/31/2025 Start: 07-31-2024 End: 07-31-2024 Patient encounter procedure 07/31/2024 11:30 AM EST Routine [facility] [address] [place] [phone] Zoraida Travis, PA [address] [place], [place] [id number] Arrived [facility] Comment on above: [...] first trimester Expected: 05/29/2024 (Approximate), Expires: 05/29/2025 [facility] Comment on above: Expected: 05/29/2024 (Approximate), Expires: 05/29/2025 Start: 05-29-2024 End: 05-29-2024 ambulatory 05/29/2024 8:30 AM EST Initial [facility] [address] [facility] [address] [phone] [facility] Start: 05-29-2024 End: 05-29-2024 Professional / ancillary services management 05/29/2024 8:00 AM EST Ancillary Procedure [facility] [address] [facility] [place] [phone] [facility] Start: 05-17-2024 End: 05-17-2024 Patient encounter procedure 05/17/2024 7:40 AM EST Office Visit [facility] [address] [place] [address] [place] [place] [phone] Ally Craig, LINE CAMERA OPERATOR-INDUSTRIAL MECHANIC [address], Petr Rodrigue [place], [place] [phone] [facility] Start: 05-11-2024 End: 05-11-2024 Patient encounter procedure 05/11/2024 1:30 PM EST Office Visit [facility] [address] [place] [phone] Giulia Samayoa PA-C [address] [place] [address] [facility] Start: 03-30-2024 End: 03-30-2024 Patient encounter procedure 03/30/2024 2:00 PM EDT Office Visit [facility] [address] [place] [phone] Giulia Samayoa PA-C [address] [place] [phone] [facility] Start: 03-15-2024 End: 03-15-2025 Calcium [Mass/volume] in Serum or Plasma Calcium Lab Routine History of sleeve 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 History of anemia Expected: 03/15/2024, Expires: 03/15/2025 [facility] Work Phone: Comment on above: Expected: 03/15/2024 , Expires: 03/15/2025 Start: 03-15-2024 End: 03-15-2025 CBC W Auto Differential panel - Blood CBC auto differential Lab Routine History of sleeve 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 History of anemia Expected: 03/15/2024, Expires: 03/15/2025 [facility] Comment on above: Expected: 03/15/2024 , Expires: 03/15/2025 Start: 03-15-2024 End: 03-15-2025 Copper, S Copper, S Lab Routine History of sleeve 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 History of anemia Expected: 03/15/2024, Expires: 03/15/2025 [facility] Comment on above: Expected: 03/15/2024 , Expires: 03/15/2025 Start: 03-15-2024 End: 03-15-2025 Cyanocobalamin vitamin b-12 Vitamin B12 Lab Routine History of sleeve 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 History of anemia Expected: 03/15/2024, Expires: 03/15/2025 [facility] Comment on above: Expected: 03/15/2024 , Expires: 03/15/2025 Start: 03-15-2024 End: 03-15-2025 Ferritin [Mass/volume] in Serum or Plasma Ferritin Lab Routine History of sleeve 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 History of anemia Expected: 03/15/2024, Expires: 03/15/2025 [facility] Comment on above: Expected: 03/15/2024 , Expires: 03/15/2025 Start: 03-15-2024 End: 03-15-2025 Folate Folate Lab Routine History of sleeve 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 History of anemia Expected: 03/15/2024, Expires: 03/15/2025 [facility] Comment on above: Expected: 03/15/2024 , Expires: 03/15/2025 Start: 03-15-2024 End: 03-15-2025 Iron and TIBC Iron and TIBC Lab Routine History of sleeve 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 History of anemia Expected: 03/15/2024, Expires: 03/15/2025 [facility] Comment on above: Expected: 03/15/2024 , Expires: 03/15/2025 Start: 03-15-2024 End: 03-15-2025 Liver panel Liver panel Lab Routine History of sleeve 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 History of anemia Expected: 03/15/2024, Expires: 03/15/2025 [facility] Comment on above: Expected: 03/15/2024 , Expires: 03/15/2025 Start: 03-15-2024 End: 03-15-2025 Parathyroid Hormone, intact Parathyroid Hormone, intact Lab Routine History of sleeve 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 History of anemia Expected: 03/15/2024, Expires: 03/15/2025 [facility] Comment on above: Expected: 03/15/2024 , Expires: 03/15/2025 Start: 03-15-2024 End: 03-15-2025 Thiamin (Vitamin B1), WB Thiamin (Vitamin B1), WB Lab Routine History of sleeve 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 History of anemia Expected: 03/15/2024, Expires: 03/15/2025 [facility] Comment on above: Expected: 03/15/2024 , Expires: 03/15/2025 Start: 03-15-2024 End: 03-15-2025 Vitamin A (Retinol) Vitamin A (Retinol) Lab Routine History of sleeve 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 History of anemia Expected: 03/15/2024, Expires: 03/15/2025 [facility] Comment on above: Expected: 03/15/2024 , Expires: 03/15/2025 Start: 03-15-2024 End: 03-15-2025 Vitamin D 25 hydroxy Vitamin D 25 hydroxy Lab Routine History of sleeve 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 History of anemia Expected: 03/15/2024, Expires: 03/15/2025 [facility] Comment on above: Expected: 03/15/2024 , Expires: 03/15/2025 Start: 03-15-2024 End: 03-15-2025 Zinc, Serum Zinc, Serum Lab Routine History of sleeve 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 History of anemia Expected: 03/15/2024, Expires: 03/15/2025 [facility] Comment on above: Expected: 03/15/2024 , Expires: 03/15/2025 Start: 03-15-2024 End: 03-15-2024 Patient encounter procedure 03/15/2024 7:40 AM EDT Office Visit [facility] [address] [place] [address] [place] [phone] Ally Craig, LINE CAMERA OPERATOR-INDUSTRIAL MECHANIC [address], [place] [address] [facility] Start: 02-20-2024 COVID-19 Vaccine ( season) COVID-19 Vaccine ( season) [facility] Start: 02-20-2024 COVID-19 Vaccine ( season) COVID-19 Vaccine ( season) [facility] Start: 02-20-2024 Influenza vaccination [facility] Start: 01-19-2024 End: 01-19-2024 Patient encounter procedure 01/19/2024 10:20 AM EDT Office Visit [facility] [address] [place] [phone] Ally Craig, LINE CAMERA OPERATOR-INDUSTRIAL MECHANIC [address], [place] [address] [facility] Start: 11-16-2023 End: 11-16-2023 Patient encounter procedure 11/16/2023 10:00 AM EDT Office Visit [facility] [address] [place] [phone] Giulia Samayoa PA-C [address] [phone] [facility] Start: 11-10-2023 Depression Screening Depression Scre ening [facility] Start: 02-19-2023 COVID-19 Vaccine ( season) COVID-19 Vaccine ( season) [facility] Start: 12-29-2022 Adult BMI Follow Up Plan Adult BMI Follow Up Plan [facility] Start: 11-19-2022 Adult BMI Follow Up Plan Adult BMI Follow Up Plan [facility] Start: 01-19-2022 Influenza vaccination Flu vaccine (# 1) [facility] Start: 04-25-2021 COVID-19 Vaccine (2 - Booster for Neel series) COVID-19 Vaccine (2 - Booster for Neel series) [facility] Start: 02-21-2019 End: 02-21-2019 Office Visit 02/21/2019 Office Visit Orthopedic Surgery Mary Mazariegos DO [address] [facility] [address] [place] [address] [phone] [facility] Start: 02-19-2019 Influenza vaccination Flu vaccine (# 1) [place], [place] Start: 2016 Cervical cancer screen Cervical canc er screen [place], [place] Start: 2016 Screening for malign ant neoplasm of cervix Pap smear [facility] Start: 2013 Adult BMI Follow Up Plan Adult BMI Follow Up Plan [facility] Start: 2011 Chlamydia screen Chlamydia screen [place], [place] Start: 2010 HIV screen HIV screen [place], [place] Start: 2010 HIV screening HIV screen [facility] Start: 2010 HPV vaccine (1 - Fem samuel 3-dose series) HPV vaccine (1 - Female 3-dose series) [place], [place] Start: 2008 Varicella Vaccine (1 of 2 - 13+ 2-dose series) Varicella Vaccine (1 of 2 - 13+ 2-dose series) [place], [place] Start: 2007 Depression Monitoring Depression Mon itoring [facility] Start: 2001 Pneumococcal 0-64 ye ars Vaccine (1 - PCV) Pneumococcal 0-64 years Vaccine (1 - PCV) [facility] Start: 2001 Pneumococcal 0-64 ye ars Vaccine (1 of 1 - PPSV23) Pneumococcal 0-64 years Vaccine (1 of 1 - PPSV23) [place], [place] Start: 1996 Varicella vaccine (1 of 2 - 2-dose childhood series) Varicella vaccine (1 of 2 - 2-dose childhood series) [facility] Bacteria identified in Urine by Culture Urine culture Microbiology Routine Missed menses Ordered: 05/29/2024 [facility] [employer] Comment on above: Ordered: 05/29/2024 End: 01-19-2025 Bacteria identified in Urine by Culture Urine culture (clean catch) Microbiology Routine Dysuria 1 Occurrences starting 01/20/2024 until 01/19/2025 [employer] Work Phone: Comment on above: 1 Occurrences starti ng 01/20/2024 until 01/19/2025 CBC W Auto Different ial panel - Blood CBC and differential Lab Routine Missed menses , unspecified gestational age Ordered: 05/29/2024 [facility] [employer] Comment on above: Ordered: 05/29/2024 End: 03-15-2025 CBC W Auto Differential panel - Blood CBC auto differential Lab Routine 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 Chronic fatigue Sinus pressure 1 Occurrences starting 03/15/2024 until 03/15/2025 [employer] Phone: Comment on above: 1 Occurrences starti ng 03/15/2024 until 03/15/2025 CHLAMYDIA TRACHOMATI S (GENITO/STI) CHLAMYDIA TRACHOMATIS (GENITO/STI) Lab Routine Exposure to STD Ordered: 07/31/2024 [facility] [employer] Comment on above: Ordered: 07/31/2024 End: 03-15-2025 Comprehensive metabolic 2000 panel - Serum or Plasma Comprehensive metabolic panel Lab Routine 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 Chronic fatigue 1 Occurrences starting 03/15/2024 until 03/15/2025 [facility] Comment on above: 1 Occurrences starti ng 03/15/2024 until 03/15/2025 End: 02-01-[address] 3D RECONSTRUCTION Imaging STAT Once for 1 Occurrences starting 02/01/2019 until 02/01/2019 [place] Comment on above: Once for 1 Occurrenc es starting 02/01/2019 until 02/01/2019 End: 02-03-[address] 3D Reconstruction Imaging STAT Once for 1 Occurrences starting 02/03/2019 until 02/03/2019 [facility]: Once for 1 Occurrenc es starting 02/03/2019 until 02/03/2019 CT 3D RECONSTRUCTION [facility] End: 03-15-2025 Cyanocobalamin vitamin b-12 Vitamin B12 Lab Routine 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 Chronic fatigue 1 Occurrences starting 03/15/2024 until 03/15/2025 [facility] Comment on above: 1 Occurrences starti ng 03/15/2024 until 03/15/2025 Cytology Cervical or vaginal smear or scraping study Pap Smear Pathology and Cytology Routine Well woman exam with routine gynecological exam Ordered: 07/31/2024 [facility] Work Phone: Comment on above: Ordered: 07/31/2024 End: 03-15-2025 Ferritin [Mass/volume] in Serum or Plasma Ferritin Lab Routine 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 Chronic fatigue 1 Occurrences starting 03/15/2024 until 03/15/2025 [facility] Comment on above: 1 Occurrences starti ng 03/15/2024 until 03/15/2025 Hemoglobin A1c/Hemoglobin.total in Blood Hemoglobin A1c Lab Routine Missed menses , unspecified gestational age Ordered: 05/29/2024 [facility] Comment on above: Ordered: 05/29/2024 Hepatitis B virus surface Ag [Presence] in Serum or Plasma by Immunoassay Hepatitis B surface antigen Lab Routine Missed menses , unspecified gestational age Ordered: 05/29/2024 [facility] Comment on above: Ordered: 05/29/2024 Hepatitis C virus Ab [Presence] in Serum or Plasma by Immunoassay Hepatitis C antibody Lab Routine Missed menses , unspecified gestational age Ordered: 05/29/2024 [facility] Comment on above: Ordered: 05/29/2024 HHN Treatment HHN Treatment Re spiratory Care Routine As Needed until discontinued starting 02/02/2019 [facility] Comment on above: As Needed until disc ontinued starting 02/02/2019 HIV-1/HIV-2 antigen/antibody combination immunoassay HIV-1 and HIV-2 antibodies Lab Routine Missed menses , unspecified gestational age Ordered: 05/29/2024 [facility] Comment on above: Ordered: 05/29/2024 Initiate Oxygen Ther apy Protocol Initiate Oxygen Therapy Protocol Respiratory Care Routine Daily until discontinued starting 02/01/2019 [facility] Comment on above: Daily until disconti nued starting 02/01/2019 End: 03-15-2025 Iron and TIBC Iron and TIBC Lab Routine 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 Chronic fatigue 1 Occurrences starting 03/15/2024 until 03/15/2025 [facility] Comment on above: 1 Occurrences starti ng 03/15/2024 until 03/15/2025 End: 03-15-2025 Lipid 1996 panel - Serum or Plasma Lipid profile Lab Routine 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 Chronic fatigue Lipid screening 1 Occurrences starting 03/15/2024 until 03/15/2025 [facility] [employer] Comment on above: 1 Occurrences starti ng 03/15/2024 until 03/15/2025 MDI Treatment MDI Treatment Re spiratory Care Routine Every 6hr As Needed until discontinued starting 02/01/2019 [facility] [place] Comment on above: Every 6hr As Needed until discontinued starting 02/01/2019 End: 06-05-2022 MRI HIP RIGHT W CONTRAST LUIZ [facility] [employer] Work Phone: Comment on above: 1 Occurrences starti ng 06/05/2022 until 06/05/2022 Neisseria gonorrhoea e DNA [Presence] in Unspecified specimen by SAMIR with probe detection Neisseria gonorrhea DNA probe, direct Lab Routine Exposure to STD Ordered: 07/31/2024 [facility] Comment on above: Ordered: 07/31/2024 End: 02-09-2019 PREPARE RBC (CROSSMATCH), 1 Units PREPARE RBC (CROSSMATCH), 1 Units Blood Bank Non-Stat Once for 1 Occurrences starting 02/09/2019 until 02/09/2019 [facility] Comment on above: Once for 1 Occurrenc es starting 02/09/2019 until 02/09/2019 Reagin Ab [Presence] in Serum by RPR RPR Lab Routine Missed menses , unspecified gestational age Ordered: 05/29/2024 [facility] Comment on above: Ordered: 05/29/2024 Respiratory care evaluation only Respiratory care evaluation only Respiratory Care Routine As Needed until discontinued starting 02/02/2019 [place] Comment on above: As Needed until disc ontinued starting 02/02/2019 Rubella antibody, IgG Rubella an tibody, IgG Lab Routine Missed menses , unspecified gestational age Ordered: 05/29/2024 [facility] Comment on above: Ordered: 05/29/2024 SURESWAB(R) ADVANCED VAGINITIS PLUS, TMA SURESWAB(R) ADVANCED VAGINITIS PLUS, TMA Pathology and Cytology Routine Exposure to STD Ordered: 07/31/2024 [facility] Comment on above: Ordered: 07/31/2024 End: 03-15-2025 Thyroid profile includes TSH FT4 Thyroid profile includes TSH FT4 Lab Routine 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 Chronic fatigue 1 Occurrences starting 03/15/2024 until 03/15/2025 [facility] Comment on above: 1 Occurrences starti ng 03/15/2024 until 03/15/2025 Immunizations Immunization Date Immunization Notes Care Provider Fa [facility] 02-28-2021 COVID-19 Vaccine, vector-nr, rS-Ad26, PF, 0.5mL Doc Guevara MD Work Phone: [facility] 11-18-2014 tetanus toxoid, reduced diphtheria toxoid, and acellular pertussis vaccine, adsorbed Doc Guevara MD Work Phone: [facility] 12-01-2000 diphtheria, tetanus toxoids and acellular pertussis vaccine Doc Guevara MD Work Phone: [facility] 12-01-2000 diphtheria, tetanus toxoids and acellular pertussis vaccine, unspecified formulation Doc Guevara MD Work Phone: [facility] 12-01-2000 measles, mumps and rubella virus vaccine Doc Guevara MD Work Phone: [facility] 12-01-2000 poliovirus vaccine, inactivated Doc Guevara MD Work Phone: [facility] 05-11-1997 diphtheria, tetanus toxoids and acellular pertussis vaccine Doc Guevara MD Work Phone: [facility] 09-07-1996 haemophilus influenz ae type b vaccine, conjugate unspecified formulation Doc Guevara MD Work Phone: [facility] 09-07-1996 measles, mumps and rubella virus vaccine Doc Guevara MD Work Phone: [facility] 07-03-1996 DTP-Haemophilus influenzae type b conjugate vaccine Doc Guevara MD Work Phone: [facility] 07-03-1996 hepatitis B vaccine, adult dosage Doc Guevara MD Work Phone: [facility] 07-03-1996 trivalent poliovirus vaccine, live, oral Doc Guevara MD Work Phone: [facility] 1995 DTP-Haemophilus influenzae type b conjugate vaccine Doc Guevara MD Work Phone: [facility] 1995 trivalent poliovirus vaccine, live, oral Doc Guevara MD Work Phone: [facility] 1995 DTP-Haemophilus influenzae type b conjugate vaccine Doc Guevara MD Work Phone: [facility] 1995 hepatitis B vaccine, adult dosage Doc Guevara MD Work Phone: [facility] 1995 trivalent poliovirus vaccine, live, oral Doc Guevara MD Work Phone: [facility] 1995 haemophilus influenz ae type b vaccine, conjugate unspecified formulation Doc Guevara MD Work Phone: [facility] NEGATED: Highlighted row has not occurred!06-20-2018 influenza, injectable, quadrivalent, preservative free Doc Guevara MD Work Phone: [facility] Comment on above: Deferred: Payers Date Payer Category Payer Commercial Managed Care - [facility] [employer] [id number] 2024 Unknown [id number] 2023 Self-pay 2022 Medicaid [employer] MEDICAID [employer] [place] COMM[employer] [id number] 2022-Present [phone] [address] [place] [address] [id number] [facility] MEDICAID [id number] 2022 Private Health Insurance [id number] 2022 Private Health Insurance [id number] 2021 Unknown [id number]. [id number] 2021 Unknown [id number] [id number]. [id number] 2021 Blue Cross Blue Shield [id number] 2019 Unknown GENERIC AUTO INS URANCE GENERIC AUTO INSURANCE xxxxxxxx 2019-Present xxxxxxxx [id number] 2018 Private Health Insurance [facility] COMMUNITY PLAN xxxxxxxxx 2018-Present [phone] [address] [place] [address] xxxxxxxxx [id number] [id number] 2018 Unknown [employer] [place] xxxxxxxxxxxxxxx 2018-Present [address] [place] [address] xxxxxxxxxxxxxxx [id number]. [id number] 1995 Unknown [id number] 08.06.830.1.251309.3.579.2. 176 1995 Unknown [id number] 840.1.955994.3.579.2. 593 1995 Unknown [id number] 840.1.186598.3.579.2. 175 1995 Unknown [id number] 840.1.591158.3.579.2. 175 1995 Unknown [id number] 08.06.830.1.568309.3.579.2. 1286 1995 Unknown [id number] 840.1.889025.3.579.2. 1286 1995 Unknown [id number] 2840.1.772011.3.579.2. 128 1995 Unknown [id number] 2.16840.1.075313.3.579.2. 128 1995 Unknown [id number] 2.16840.1.784032.3.579.2. 1285 1995 Unknown [id number] 2.16840.1.589071.3.579.2. 1258 1995 Unknown [id number] 2.16840.1.924952.3.579.2. 1258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
== END 2024-10-31 17:30 | disposition home or self-care (01) ==
LOC: FBCO 17:05 → FBC 17:06
PROVIDERS: PCP Nurse Practitioner; Visit Provider Obstetrics & Gynecology
DX: O26.893 Other specified pregnancy related conditions, third trimester (principal)
CPT/HCPCS: 59025

== ENCOUNTER 2024-11-03 14:49 | Outpatient (OUT) | payer OTHER, SELFPAY ==
--- NOTE | 2024-11-03 14:52 | US_ITS ---
[place] [id number] Patient Name: MADDIE ORNELAS MRN: [id number] date: 1995 Sex: F Assigned Patient Location: [facility] Current Patient Location: Accession/Order Number: [id number] Exam Date: 11/03/2024 16:12 Report Date: 11/03/2024 16:13 At the request of: ARMINDA WHITE DO Procedure: US OB BPP w non-stress US OB BPP w non-stress 11/03/2024 3:19 PM SIGNS AND SYMPTOMS: ^12/14/2024 ^H/O GASTRIC SLEEVE Z90.3 PROTOCOL: Grayscale and color sonographic images of the pelvis COMPARISON: None FINDINGS: A heart rate is identified at 149 bpm. The amniotic fluid index is 12.8 cm. Biophysical profile: breathing movements: 2/2 Gross body movements: 2/2 tone: 2/2 Amniotic fluid volume: 2/2 US/US OB BPP w non-stress IMPRESSION: Biophysical profile score: 8/8 The amniotic fluid index is 12.8 cm. Impression dictated by: Cristo Bland M.D. 11/03/2024 4:13 PM Dictation Location: [employer] Electronically authenticated by: [id number] Date: 11/03/2024 16:13
--- OUTSIDE RECORDS SUMMARY | 2024-11-03 15:15 | XMS_ITS | CCD ---
Author Organization [facility] Care Team Providers Care Dredge Deckhand Name Role Phone Ally Craig Primary Care [...] Primary Care Provider UnavailRAFA Crowder Attending Provider [phone] NON STAFF Primary Care Unavailable Janna Escalera [...] Unavailable KIARA ALLY A Primary Care Unavailable ALYL CRAIG Attending Unavailable KIARA ALLY Donn Referring Unavailable ALANNA CRAIGITH Donn Primary Care Unavailable Unavailable Primary Care Provider UnavailAlly Herring Primary Care Provi collin Kiara COMPUTATIONAL SCIENCES PROFESSOR-BIOLOGY LECTURER, Ally A Primary Care Provi collin ZORAIDA [...] source) strawberry allergenic extract Drug Allergy [facility] Repository (10 sources) strawberry allergenic extract; Translations: [STRAWBERRY EXTRACT] Drug Allergy 9 Anaphylaxis [place], [place] (13 sources) [place] Propensity to adverse reactions 9 Anaphylaxis [facility] Healthcare Medications Current Medications Medication Drug Class(es) Dates Sig (Normalized) Sig (Original) acetaminophen 500 mg oral tablet (1 source) Start: 02-01-2019 acetaminophen (TYLENOL) tablet 1,000 mg [id number] 200 actuat albuterol 0.09 mg/actuat metered dose [...] by mouth every week vitamin D (ERGOCALCIFEROL) 76641 units CAPS capsule Take 1 capsule by [...] morning. 90 tablet 3 11/18/2021 Active sennosides, long term 8.6 mg oral tablet (2 sources) Start: [...] B12 Start: 02-09-2019 End: 02-09-2019 iron polysaccharide zovivnd-P11-dwqut acid (FERREX-FORTE) 150-0.025-1 MG capsule 1 mg [...] OB BPP W NON-STRESS on 10-30-[address] [address] Ultrasound Report Signed Patient: MADDIE RAMAN MR#: [id number] : 1995 Acct:[id number] Age/Sex: 29 / F ADM Date: 10/27/24 Loc: US Attending Dr: Cedric Warner D.O. Ordering Physician: Cedric Warner D.O. Date of Service: 10/27/24 Procedure(s): OB BPP w non-stress Accession Number(s): [id number] cc: Cedric Warner D.O.; Ally Craig NP [place] [address] Patient Name: MADDIE RAMAN MRN: [facility]:[id number] date: 1995 Sex: F Assigned Patient Location: US Current Patient Location: Accession/Order Number: [id number] Exam Date: 10/30/2024 09:26 Report Date: 10/30/2024 09:28 At the request of: CEDRIC WARNER DO Procedure: US OB BPP w non-stress BIOPHYSICAL PROFILE: CLINICAL INFORMATION: HISTORY OF GASTRIC SLEEVE Z 90.3 COMPARISON: 08/05/2024 There is a single live intrauterine gestation in cephalic presentation. The reported gestational age is 33 weeks 1 day. The heart rate [id number] beats per minute. FINDINGS: TONE: 1 or [...] Jensen M.D. 10/30/2024 9:28 AM Dictation Location: [place] [address] Electronically authenticated by: [id number] Y Date: 10/30/2024 09:28 Dictated By: Smita Jensen M.D. Signed By: 05/06/14 931 DD/ 7 TD/TT: Machine Dyer: [facility] Radiology, Radiologist, - 10/30/2024 [place] [address] Ultrasound Report Signed Patient: MADDIE RAMAN MR#: [id number] : 1995 Acct:[id number] Age/Sex: 29 / F ADM Date: 10/27/24 Loc: US Attending Dr: Cedric Warner D.O. Ordering Physician: Cedric Warner D.O. Date of Service: 10/27/24 Procedure(s): US OB BPP w non-stress Accession Number(s): [id number] cc: Cedric Warner D.O.; Ally Craig NP The [place] [address] Patient Name: MADDIE RAMAN MRN: [facility]:[id number] date: 1995 Sex: F Assigned Patient Location: Current Patient Location: Accession/Order Number: [id number] Exam Date: 10/30/2024 09:26 Report Date: 10/30/2024 09:28 At the request of: CEDRIC WARNER DO Procedure: US OB BPP w non-stress BIOPHYSICAL PROFILE: CLINICAL INFORMATION: HISTORY OF GASTRIC SLEEVE Z 90.3 COMPARISON: 08/05/2024 There is a single live intrauterine gestation in cephalic presentation. The reported gestational age is 33 weeks 1 day. The heart rate eyfvqkzf782 beats per minute. FINDINGS: TONE: 1 or [...] Jensen M.D. 10/30/2024 9:28 AM Dictation Location: [place] [address] Electronically authenticated by: [id number] Y Date: 10/30/2024 09:28 Dictated By: Smita Jensen M.D. Signed By: 10/30/24930 DD/ 7 TD/TT: Machine Dyer: [facility] Radiology Study observation (narrative) [facility] US OB BPP W NON-STRESS Ordered By: Radiologist Radiology on 10-30-2024 [facility] Work Phone: Urinalysis macro (dipstick) panel (U)on 10-25-2024 Bilirubin, UA Negative Negative - 4(70) +++ mg/dL [facility] Blood, UA Negative Negative - 50 Miguel Angel/mcL [facility] Clarity, UA Clear [facility] Color, UA Yellow [facility] Glucose, UA Negative Negative - 1999(110) ++++ mg/dL [facility] Interpretation and review of laboratory results Normal [facility] Ketones, UA Negative Negative - 160(16) ++++ mg/dL [facility] Leukocytes, UA Negative Negative - 500+++ Eleonora/mcL [facility] Nitrite, UA Negative Negative - Positive [facility] pH, UA 6.5 5 - 9 [facility] Protein, UA Negative Negative - 1999(20) ++++ mg/dL [facility] Spec Grav, UA 1.015 1 - 1.03 [facility] Urobilinogen, UA 0.2 0.2 - 12 mg/dL [facility] Urinalysis macro (dipstick) panel (U)on 10-11-2024 Bilirubin, UA Negative Negative - 4(70) +++ mg/dL [facility] Blood, UA Negative Negative - 50 Miguel Angel/mcL [facility] Clarity, UA Clear [facility] Color, UA Yellow [facility] Glucose, UA Negative Negative - 2000(110) ++++ mg/dL [facility] Interpretation and review of laboratory results Normal [facility] Ketones, UA Negative Negative - 160(16) ++++ mg/dL [facility] Leukocytes, UA Negative Negative - 500+++ Eleonora/mcL [facility] Nitrite, UA Negative Negative - Positive [facility] pH, UA 7 5 - 9 [facility] Protein, UA Trace Negative - 1999(20) ++++ mg/dL [facility] Spec Grav, UA 1.025 1 - 1.03 [facility] Urobilinogen, UA 0.2 0.2 - 12 mg/dL [facility] POCT EKGon 10-05-2024 [facility] Urinalysis macro (dipstick) panel (U)on 09-26-2024 Bilirubin, UA Negative Negative - 4(70) +++ mg/dL [facility] Blood, UA Negative Negative - 50 Miguel Angel/mcL [facility] Clarity, UA Clear [facility] Color, UA Tiffany [facility] Glucose, UA Negative Negative - 1999(110) ++++ mg/dL [facility] Interpretation and review of laboratory results Abnormal [facility] Ketones, UA Negative Negative - 160(16) ++++ mg/dL [facility] Leukocytes, UA Negative Negative - 500+++ Eleonora/mcL [facility] Nitrite, UA Negative Negative - Positive [facility] pH, UA 6 5 - 9 [facility] Protein, UA Positive Negative - 1999(20) ++++ mg/dL [facility] Comment on above: 30 Spec Grav, UA 1.03 1 - 1.03 [facility] Urobilinogen, UA 0.2 0.2 - 12 mg/dL [facility] No Panel InformationOrdered By: Radiologist Radiology on 08-05-2024 [facility] Work Phone: No Panel Informationon 08-05 Radiology Study observation (narrative) [facility] US OB ANATOMYon 08-05-[address] [address] Ultrasound Report Signed Patient: MADDIE RAMAN MR#: [id number] : 1995 Acct:[id number] Age/Sex: 29 / F ADM Date: 08/05/24 Loc: US Attending Dr: Zoraida Travis Ordering Physician: Zoraida Travis Date of Service: 08/05/24 Procedure(s): US OB anatomy Accession Number(s): [id number] cc: Zoraida Travis; Ally Craig NP [address] [address] Patient Name: MADDIE RAMAN MRN: [facility]:[id number] date: 1995 Sex: F Assigned Patient Location: US Current Patient Location: US Accession/Order Number: [id number] Exam Date: 08/05/2024 08:01 Report Date: 08/05/2024 [...] Signed By: 08/05/24 0858 DD/ 0855 TD/TT: Machine Dyer: [facility] Radiology, Radiologist, - 08/05/2024 [place] [address] Ultrasound Report Signed Patient: MADDIE RMAAN MR#: [id number] : 1995 Acct:[id number] Age/Sex: 29 / F ADM Date: 08/05/24 Loc: US Attending Dr: Zoraida Travis Ordering Physician: Zoraida Travis Date of Service: 08/05/24 Procedure(s): US OB anatomy Accession Number(s): [id number] cc: Zoraida Travis; Ally Craig NP The [place] [address] Patient Name: MADDIE RAMAN MRN: [facility]:[id number] date: 1995 Sex: F Assigned Patient Location: US Current Patient Location: US Accession/Order Number: [id number] Exam Date: 08/05/2024 08:01 Report Date: 08/05/2024 [...] M.D. Signed By: 08/05/24 0858 DD/ TD/TT: Machine Dyer: [employer] US OB CERVICAL LENGTHon 07-22 [place] [address] Ultrasound Report Signed Patient: MADDIE RAMAN MR#: [id number] : 1995 Acct:[id number] Age/Sex: 29 / F ADM Date: 08/05/24 Loc: US Attending Dr: Zoraida Travis Ordering Physician: Zoraida Travis Date of Service: 08/05/24 Procedure(s): US OB cervical length Accession Number(s): [id number] cc: Zoraida Travis; Ally Craig NP [place] [id number] Patient Name: MADDIE RAMAN MRN: [id number] date: 1995 Sex: F Assigned Patient Location: US Current Patient Location: US Accession/Order Number: [id number] Exam Date: 08/05/2024 08:01 Report Date: 08/05/2024 [...] Signed By: 08/05/24 0858 DD/ 0855 TD/TT: Machine Dyer: [facility] Radiology, Radiologist, MD - 08/05/2024 [place] [address] Ultrasound Report Signed Patient: MADDIE RAMAN MR#: [id number] : 1995 Acct:[id number] Age/Sex: 29 / F ADM Date: 08/05/24 Loc: US Attending Dr: Zoraida Travis Ordering Physician: Zoraida Travis Date of Service: 08/05/24 Procedure(s): US OB cervical length Accession Number(s): [id number] cc: Zoraida Travis; Ally Craig NP [place] [address] Patient Name: MADDIE RAMAN MRN: [id number]:[id number] date: 1995 Sex: F Assigned Patient Location: US Current Patient Location: US Accession/Order Number: [id number] Exam Date: 08/05/2024 08:01 Report Date: 08/05/2024 [...] M.D. Signed By: 08/05/24857 DD/ 4 TD/TT: Machine Dyer: [facility] [place] IGP,APTIMA HPV,AGE GDLNon AGE GDLN ACOG TESTING Note . [facility] Comment on above: TESTS RESULT FLAG UN ITS REF RANGE LAB Clinician Provided Cytology Information Source.............Cervix Other.............. No. of containers..01 ThinPrep Vial Age Algo ACOG Theodora... - 01 FLAG LEGEND: L-Low Normal,H-High Normal,LL-Alert Low,HH-Alert High <-Panic Low,>-Panic High,A-Abnormal,AA-Critical Abnormal Performed at: 01 [facility] [address] [place] [address] Otilia Marquis MD, IGP, RFX APTIMA HPV ASCU Note . [facility] Comment on above: TESTS RESULT FLAG UN ITS REF RANGE LAB DIAGNOSIS: 02 NEGATIVE FOR INTRAEPITHELIAL LESION OR MALIGNANCY. Specimen adequacy: 02 Satisfactory for evaluation. Endocervical and/or squamous metaplastic cells (endocervical component) are present. Performed by: Trupti Bliss, Parachute Accessories Attacher ([facility]) . 02 Note: Note 03 The Pap [...] <-Panic Low,>-Panic High,A-Abnormal,AA-Critical Abnormal Performed at: [address] [place] [address] Kyra Flores PhD, [address] [place] [address] Otilia Marquis MD, Performed at: =G - [facility] [id number] Land Clearer: Otilia Marquis MD, Phone: [phone] Performed at: [facility], [place] [id number] Land Clearer: Kyra Flores PhD, Phone: [phone] SPATULA-ALONE CERVIX [facility] RECURRENT VAGINITIS (HTRX)on 08-02-2024 ATOPOBIUM VAGINAE 21.302 Abnormal [facility] ATOPOBIUM VAGINAE Detected Abnormal [facility] BVAB 2,3 (BACTERIAL VAGINOSIS ASSOCIATED BACTERIA 2, 3); MOBILUNCUS SPP 18.822 Abnormal [facility] BVAB 2,3 (BACTERIAL VAGINOSIS ASSOCIATED BACTERIA 2, 3); MOBILUNCUS SPP Detected Abnormal [facility] ROCÍO ALBICANS, PARAPSILOSIS, TROPICALIS 0 [facility] ROCÍO ALBICANS, PARAPSILOSIS, TROPICALIS Not detected [facility] ROCÍO GLABRATA 0 [facility] ROCÍO GLABRATA Not detected [facility] ROCÍO KRUSEI 0 [facility] ROCÍO KRUSEI Not detected [facility] CHLAMYDIA TRACHOMATIS 0 [facility] CHLAMYDIA TRACHOMATIS Not detected N [facility] ERMB, C; MEFA 21.66 Abnormal [facility] ERMB, C; MEFA Detected Abnormal [facility] GARDNERELLA VAGINALIS 22.792 Abnormal [facility] GARDNERELLA VAGINALIS Detected Abnormal [facility] Interpretation and review of laboratory results Abnormal [facility] MEGASPHAERA (TYPES 1, 2) 17.674 Abnormal [facility] MEGASPHAERA (TYPES 1, 2) Detected Abnormal [facility] MYCOPLASMA GENITALIUM 0 [facility] MYCOPLASMA GENITALIUM Not detected N [facility] NEISSERIA GONORRHOEAE 0 [facility] NEISSERIA GONORRHOEAE Not detected N [facility] TRICHOMONAS VAGINALIS 0 [facility] TRICHOMONAS VAGINALIS Not detected N [facility] Urinalysis macro (dipstick) panel (U)on 07-31-2024 Bilirubin, UA Positive Negative - 4(70) +++ mg/dL [facility] Comment on above: small Blood, UA Negative Negative - 50 Miguel Angel/mcL [facility] Clarity, UA Cloudy [facility] Color, UA Dark Tiffany [facility] Glucose, UA Negative Negative - 2000(110) ++++ mg/dL [facility] Interpretation and review of laboratory results Abnormal [facility] Ketones, UA Negative Negative - 160(16) ++++ mg/dL [facility] Leukocytes, UA Negative Negative - 500+++ Eleonora/mcL [facility] Nitrite, UA Negative Negative - Positive [facility] pH, UA 6 5 - 9 [facility] Protein, UA Positive Negative - 2000(20) ++++ mg/dL [facility] Comment on above: 30 mg Spec Grav, UA 1.03 1 - 1.03 [facility] Urobilinogen, UA 1.0 0.2 - 12 mg/dL [facility] AFP, SERUM, OPEN SPINA BIFID Aon 07-07-2024 AFP MOM 0.99 . [facility] AFP VALUE 31.8 ng/mL . [facility] COMMENT: Comment . [facility] Comment on above: Yanni West , Ph.D., [facility] Director References: Available Upon Request. Multiples Of Median Cutoffs For AFP Elevations Alonso 2.5 Black 2.8 IDD 2.0 Twins 4.5 Abbreviation Definitions IDD - Insulin Dep Diabetes OSBR - Open Spina Bifida Risk For further inquiries contact [facility] at [phone]. This test was developed and its performance characteristics determined by [employer]. It has not been cleared or approved by the Food and Drug Administration. Performed at: [facility] [email or web address] [address] [place], [place] [id number] Land Clearer: Sinai Arellano [facility], Phone: [phone] GEST. AGE ON COLLECTION DATE 17.9 . weeks [facility] GESTAT. AGE BASED ON Ultrasound . [facility] Comment on above: 15:0 on 06/15/2024 Recalculations are not recommended when gestational dating by LMP and ultrasound are within 10 days. INSULIN DEP DIABETES No . [facility] INTERPRETATION Comment . [facility] Comment on above: Interpretation: Scre en [...] Customer Services to discuss available options. The [employer] recommends amniocentesis be offered to women age 35 and older. [age] [facility] MULTIPLE GESTATION No . [facility] OS[place] RISK [address] [place] [address] . [facility] RACE . [facility] RESULTS Report . [facility] TEST RESULTS: Negative . [facility] WEIGHT 237 . lbs [facility] N [id number] N ULTRASOUND [id number] 0 15 N 1 Y 237 N N N N N [facility] Urinalysis macro (dipstick) panel (U)on 06-15-2024 Bilirubin, UA Negative Negative - 4(70) +++ mg/dL [facility] Blood, UA Negative Negative - 50 Miguel Angel/mcL [facility] Clarity, UA Clear [facility] Color, UA Yellow [facility] Glucose, UA Negative Negative - 1999(110) ++++ mg/dL [facility] Interpretation and review of laboratory results Abnormal [facility] Ketones, UA Negative Negative - 160(16) ++++ mg/dL [facility] Leukocytes, UA Few Negative - 500+++ Eleonora/mcL [facility] Comment on above: small Nitrite, UA Negative Negative - Positive [facility] pH, UA 7 5 - 9 [facility] Protein, UA Negative Negative - 1999(20) ++++ mg/dL [facility] Spec Grav, UA 1.025 1 - 1.03 [facility] Urobilinogen, UA 2.0 0.2 - 12 mg/dL [facility] BOX TESTon 06-06-2024 BOX TEST SENT OUT [facility] BOX1 [facility] B[address]2 06/06/24 [facility] HCG ( test) Ql (U)o n 05-29-2024 Interpretation and review of laboratory results Abnormal [facility] Preg Test, Ur Positive Negative [facility] Urinalysis macro (dipstick) panel (U)on 05-29-2024 Bilirubin, UA Negative Negative - 4(70) +++ mg/dL [facility] Blood, UA Negative Negative - 50 Miguel Angel/mcL [facility] Clarity, UA Clear [facility] Color, UA Yellow [facility] Glucose, UA Negative Negative - 1999(110) ++++ mg/dL [facility] Interpretation and review of laboratory results Abnormal [facility] Ketones, UA Positive Negative - 160(16) ++++ mg/dL [facility] Comment on above: trace Leukocytes, UA Negative Negative - 500+++ Eleonora/mcL [facility] Nitrite, UA Negative Negative - Positive [facility] pH, UA 6.5 5 - 9 [facility] Protein, UA Negative Negative - 1999(20) ++++ mg/dL [facility] Spec Grav, UA 1.02 1 - 1.03 [facility] Urobilinogen, UA 1.0 0.2 - 12 mg/dL [facility] PREG QUANT HCGon 22-2 024 HCG QUANTITATIVE 06758 mIU/mL [facility] Comment on above: 5-50 0.2-1 WEEK 50-500 1-2 WEEKS 100-5,000 2-3 WEEKS 500-10,000 3-4 WEEKS 1,000-50,000 4-5 WEEKS 10,000-100,000 5-6 WEEKS 15,000-200,000 6-8 WEEKS 10,000-100,000 2-3 MONTHS [facility] PREG QUANT HCGon 05-10-2 024 HCG QUANTITATIVE 76435 mIU/mL [facility] Comment on above: 5-50 0.2-1 WEEK 50-500 1-2 WEEKS 100-5,000 2-3 WEEKS 500-10,000 3-4 WEEKS 1,000-50,000 4-5 WEEKS 10,000-100,000 5-6 WEEKS 15,000-200,000 6-8 WEEKS 10,000-100,000 2-3 MONTHS [facility] PREG QUANT HCGon 18-2 024 HCG QUANTITATIVE 27245 mIU/mL [facility] Comment on above: 5-50 0.2-1 WEEK 50-500 1-2 WEEKS 100-5,000 2-3 WEEKS 500-10,000 3-4 WEEKS 1,000-50,000 4-5 WEEKS 10,000-100,000 5-6 WEEKS 15,000-200,000 6-8 WEEKS 10,000-100,000 2-3 MONTHS [facility] CBC AND AUTO DIFFon 03-15-20 24 ABSOLUTE BASOPHIL 0.1 X10E9/L Normal 0.0-0.2 [facility] Comment on above: Performed By: #### C BCA, CMP, FEPR, 01037-6, THYR, 6-4, 6282-9 #### [facility] ([id number]) [address] [place] [address] ABSOLUTE NEUTROPHIL 3.1 X10E9/L Normal 1.5-6.6 [facility] Comment on above: Performed By: #### C BCA, CMP, FEPR, 77378-3, THYR, 2275-09, 2132-02 #### [facility] ([id number]) [address], [address] [place] [address] Basophils/100 WBC (Bld) 1.2 % Normal [facility] Comment on above: Performed By: #### C BCA, CMP, FEPR, 06299-4, THYR, 2275-09, 2132-02 #### [facility] ([id number]) [address], [address] [place] [address] Eosinophils (Bld) [#/Vol] 0.4 10*3/uL Normal 0.0-0.4 [facility] Comment on above: Performed By: #### C BCA, CMP, FEPR, 61373-9, THYR, 2275-09, 2132-02 #### [facility] ([id number]) [address], [address] [place] [address] Eosinophils/100 WBC (Bld) 6.7 % Normal [facility] Comment on above: Performed By: #### C BCA, CMP, FEPR, 41423-6, THYR, 2275-09, 2132-02 #### [facility] ([id number]) [address], [address] [place] [address] Erythrocyte distribution width (RBC) [Ratio] 12.8 % Normal 11.5-15.0 [facility] Comment on above: Performed By: #### C BCA, CMP, FEPR, 79922-2, THYR, 2275-09, 2132-02 #### [facility] ([id number]) [address], [address] [place] [address] Hematocrit (Bld) [Volume fraction] 36.5 % Normal 35-47 [facility] Comment on above: Performed By: #### C BCA, CMP, FEPR, 49734-5, THYR, 2275-, 2132-02 #### [facility] ([id number]) [address], [address] [place] [address] Hemoglobin (Bld) [Mass/Vol] 12.9 g/dL Normal 11.7-15.5 [facility] Comment on above: Performed By: #### C BCA, CMP, FEPR, 44089-4, THYR, 2275-, 2132-02 #### [facility] ([id number]) [address], [address] [place] [address] Lymphocytes (Bld) [#/Vol] 1.3 10*3/uL Normal 1.0-3.5 [facility] Comment on above: Performed By: #### C BCA, CMP, FEPR, 03760-9, THYR, 2275-09, 2132-02 #### [facility] ([id number]) [address], [address] [place] [address] Lymphocytes/100 WBC (Bld) 25.0 % Normal [facility] Comment on above: Performed By: #### C BCA, CMP, FEPR, 65308-1, THYR, 2275-09, 2132-02 #### [facility] ([id number]) [address], [address] [place] [address] MCH (RBC) [Entitic mass] 31.2 pg Normal 27-34 [facility] Comment on above: Performed By: #### C BCA, CMP, FEPR, 70465-9, THYR, 2275-, 2132-02 #### [facility] ([id number]) [address], [address] [place] [address] MCHC (RBC) [Mass/Vol] 35.4 g/dL Normal 32-36 [facility] Comment on above: Performed By: #### C BCA, CMP, FEPR, 34925-1, THYR, 2276-4, 2132-02 #### [facility] ([id number]) [address], [address] [place] [address] MCV (RBC) [Entitic vol] 88 fL Normal 80-100 [facility] Comment on above: Performed By: #### C BCA, CMP, FEPR, 94987-0, THYR, 2275-09, 2132-02 #### [facility] ([id number]) [address], [address] [place] [address] Monocytes (Bld) [#/Vol] 0.4 10*3/uL Normal 0-0.9 [facility] Comment on above: Performed By: #### C BCA, CMP, FEPR, 86258-5, THYR, 2275-09, 2132-02 #### [facility] ([id number]) [address], [address] [place] [address] Monocytes/100 WBC (Bld) 8.4 % Normal [facility] Comment on above: Performed By: #### C BCA, CMP, FEPR, 72068-3, THYR, 2275-09, 2132-02 #### [facility] ([id number]) [address], [address] [place] [address] Neutrophils/100 WBC (Bld) 58.7 % Normal [facility] Comment on above: Performed By: #### C BCA, CMP, FEPR, 45842-2, THYR, 2275-09, 2132-02 #### [facility] ([id number]) [address], [address] [place] [address] Platelet mean volume (Bld) [Entitic vol] 8.5 fL Normal 7-12 [facility] Comment on above: Performed By: #### C BCA, CMP, FEPR, 76226-1, THYR, 2275-09, 2132-02 #### [facility] ([id number]) [address], [address] [place] [address] Platelets (Bld) [#/Vol] 234 10*3/uL Normal 150-450 [facility] Comment on above: Performed By: #### C BCA, CMP, FEPR, 35862-9, THYR, 2276-4, 2132-02 #### [facility] ([id number]) [address], [address] [place] [address] RBC COUNT 4.13 X10E12/L Normal 3.80-5.20 [facility] Comment on above: Performed By: #### C BCA, CMP, FEPR, 69807-9, THYR, 2275-, 2132-02 #### [facility] ([id number]) [address] [address] WBC (Bld) [#/Vol] 5.3 10*3/uL Normal 4.0-11.0 [facility] Comment on above: Performed By: #### C BCA, CMP, FEPR, 64891-9, THYR, 2275-, 2132-02 #### [facility] ([id number]) [address] [address] [place] [address] COMPREHENSIVE METABOLIC PANE Malachi 03-15-2024 Albumin [Mass/Vol] 4.4 g/dL Normal 3.2-5.3 [facility] Comment on above: Performed By: #### C BCA, CMP, FEPR, 52312-4, THYR, 2276-4, 2132-02 #### [facility] ([id number]) [address] [address] [facility] [address] [place] [address] ALP [Catalytic activity/Vol] 52 U/L Normal 39-130 [facility] Comment on above: Performed By: #### C BCA, CMP, FEPR, 12524-5, THYR, 227-4, 2132-02 #### [facility] ([id number]) [address] [place] [address] ALT [Catalytic activity/Vol] 16 U/L Normal 0-31 [facility] Comment on above: Performed By: #### C BCA, CMP, FEPR, 94141-4, THYR, 2275-09, 2132-02 #### [facility] ([id number]) [address], [address] [place] [address] Anion gap [Moles/Vol] 9 mmol/L Normal 5-15 [facility] Comment on above: Performed By: #### C BCA, CMP, FEPR, 28267-3, THYR, 2275-09, 2132-02 #### [facility] ([id number]) [address], [address] [place] [address] AST [Catalytic activity/Vol] 19 U/L Normal 0-41 [facility] Comment on above: Performed By: #### C BCA, CMP, FEPR, 31813-4, THYR, 2275-09, 2132-02 #### [facility] ([id number]) [address], [address] [place] [address] Bilirubin [Mass/Vol] 0.5 mg/dL Normal 0.3-1.2 [facility] Comment on above: Performed By: #### C BCA, CMP, FEPR, 34443-2, THYR, 2275-09, 2132-02 #### [facility] ([id number]) [address], [address] [place] [address] Calcium [Mass/Vol] 9.3 mg/dL Normal 8.5-10.5 [facility] Comment on above: Performed By: #### C BCA, CMP, FEPR, 21230-9, THYR, 2275-09, 2132-02 #### [facility] ([id number]) [address], [address] [place] [address] Chloride [Moles/Vol] 104 mmol/L Normal 98-109 [facility] Comment on above: Performed By: #### C BCA, CMP, FEPR, 14642-7, THYR, 2275-09, 2132-02 #### [facility] ([id number]) [address], [address] [place] [address] CO2 [Moles/Vol] 27 mmol/L Normal 22-32 [facility] Comment on above: Performed By: #### C BCA, CMP, FEPR, 64774-2, THYR, 2275-09, 2132-02 #### [facility] ([id number]) [address], [address] [place] [address] Creatinine [Mass/Vol] 0.60 mg/dL Normal 0.40-1.00 [facility] Comment on above: Result Comment: METH OD TRACEABLE TO IDMS STANDARD Performed By: #### C BCA, CMP, FEPR, 70371-1, THYR, 2275-09, 2132-02 #### [facility] ([id number]) [address], [address] [place] [address] eGFR (CKD-EPI) NON-RACE DEPENDENT >90 Normal >59 [facility] Comment on above: Result Comment: Reported eGFR is based on the CKD-EPI 2020 equation that does not use a race coefficient. Performed By: #### C BCA, CMP, FEPR, 88596-9, THYR, 2275-09, 2132-02 #### [facility] ([id number]) [address], [address] [place] [address] Glucose [Mass/Vol] 75 mg/dL Normal 65-99 [facility] Comment on above: Performed By: #### C BCA, CMP, FEPR, 07511-1, THYR, 2275-09, 2132-02 #### [facility] ([id number]) [address], [address] [place] [address] Potassium [Moles/Vol] 4.2 mmol/L Normal 3.5-5.0 [facility] Comment on above: Performed By: #### C BCA, CMP, FEPR, 18503-9, THYR, 2275-09, 2132-02 #### [facility] ([id number]) [address], [address] [place] [address] Protein [Mass/Vol] 7.5 g/dL Normal 6.0-8.0 [facility] Comment on above: Performed By: #### C BCA, CMP, FEPR, 98247-9, THYR, 2275-09, 2132-02 #### [facility] ([id number]) [address], [address] [place] [address] Sodium [Moles/Vol] 140 mmol/L Normal 134-146 [facility] Comment on above: Performed By: #### C BCA, CMP, FEPR, 10602-2, THYR, 2275-09, 2132-02 #### [facility] ([id number]) [address], [address] [place] [address] Urea nitrogen [Mass/Vol] 10 mg/dL Normal 5-23 [facility] Comment on above: Performed By: #### C BCA, CMP, FEPR, 41800-5, THYR, 2275-09, 2132-02 #### [facility] ([id number]) [address], [address] [place] [address] FERRITINon 03-15-2024 Ferritin [Mass/Vol] 55 ng/mL Normal 11-307 [facility] Comment on above: Performed By: #### C BCA, CMP, FEPR, 84582-1, THYR, 2275-09, 2132-02 #### [facility] ([id number]) [address], [address] [place] [address] IRON PROFILEon 03-15-2024 Iron [Mass/Vol] 126 ug/dL Normal 50-170 [facility] Comment on above: Performed By: #### C BCA, CMP, FEPR, 66399-3, THYR, 2275-, 2132-02 #### [facility] ([id number]) [address], [address] [place] [address] IRON BINDING 351 ug/dL Normal 250-425 [facility] Comment on above: Performed By: #### C BCA, CMP, FEPR, 07886-4, THYR, 2275-, 2132-02 #### [facility] ([id number]) [address], [address] [place] [address] IRON SATURATION 36 % SATURATION Normal 15-50 [facility] Comment on above: Performed By: #### C BCA, CMP, FEPR, 39897-7, THYR, 2275-, 2132-02 #### [facility] ([id number]) [address], [address] [place] [address] Lipid 1996 panelon 4 Cholesterol [Mass/Vol] 164 mg/dL Normal 150-200 [facility] Comment on above: Performed By: #### C BCA, CMP, FEPR, 89320-3, THYR, 2275-, 2132-02 #### [facility] ([id number]) [address], [address] [place] [address] Cholesterol in HDL [Mass/Vol] 57 mg/dL Normal >39 [facility] Comment on above: Result Comment: HDL <40 mg/dL - High Risk HDL > or = 40mg/dL- Desirable HDL >60 mg/dL - Negative Risk Performed By: #### C BCA, CMP, FEPR, 39710-5, THYR, 2275-, 2132-02 #### [facility] ([id number]) [address], [address] [address] Cholesterol in LDL [Mass/Vol] 84 mg/dL Normal <130 [facility] Comment on above: Result Comment: LDL <100 mg/dL - Desirable LDL >160 mg/dL - High Risk Performed By: #### C BCA, CMP, FEPR, 93864-4, THYR, 2275-4, 2132-02 #### [facility] ([id number]) [address] [address] Cholesterol in VLDL [Mass/Vol] 23 mg/dL Normal 0-30 [facility] Comment on above: Performed By: #### C BCA, CMP, FEPR, 17167-1, THYR, 2275-, 2132-02 #### [facility] ([id number]) [address] [address] CHOLESTEROL:HDL 2.9 Normal 1.0-5.0 [facility] Comment on above: Performed By: #### C BCA, CMP, FEPR, 52043-9, THYR, 2275-, 2132-02 #### [facility] ([id number]) [address] [address] Triglyceride [Mass/Vol] 115 mg/dL Normal 27-150 [facility] Comment on above: Performed By: #### C BCA, CMP, FEPR, 70938-2, THYR, 2275-4, 2132-02 #### [facility] ([id number]) [address] [address] THYROID PROFILEon 03-15-2024 Free T4 [Mass/Vol] 0.74 ng/dL Normal 0.61-1.60 [facility] Comment on above: Performed By: #### C BCA, CMP, FEPR, 52568-3, THYR, 2275-09, 2132-02 #### [facility] ([id number]) [address] [place] [address] TSH 2.68 uIU/mL Normal 0.49-4.67 [facility] Comment on above: Performed By: #### C BCA, CMP, FEPR, 30898-0, THYR, 2275-09, 2132-02 #### [facility] ([id number]) [address] [place] [address] VITAMIN B12on 03-15-2024 Cobalamin (Vitamin B12) [Mass/Vol] 537 pg/mL Normal 180-914 [facility] Comment on above: Performed By: #### C BCA, CMP, FEPR, 25087-2, THYR, 2275-09, 2132-02 #### [facility] ([id number]) [address] [place] [address] POCT urinalysis dipstick onl yon 01-20-2024 Appearance (U) Cloudy [facility] External Poct Urine Bilirubin Negative [facility] External Poct Urine Blood Trace [facility] External Poct Urine Character Malodorous [facility] External Poct Urine Color Dark Yellow [facility] External Poct Urine Glucose Negative [facility] External Poct Urine Ketones Trace [facility] External Poct Urine Leukocyte Esterase Large [facility] External Poct Urine Nitrite Negative [facility] External Poct Urine Ph 5.0 Pr [facility] External Poct Urine Protein 3+ [facility] External Poct Urine Specific [place] 1.000 [facility] External Poct Urine Urobilinogen 0.2 [facility] URINE CULTUREon 01-20-2024 Bacteria identified Cx [...] TRIMETH/SULFAMETHOXA ZOLE R >=16/304 F Resistant [facility] Comment on above: Performed By: #### 6 30-4 #### [facility] ([id number]) [address] [place] [address] Basic Metabolic Vasquez w/Rfx A1 Con 12-08-2023 GFR/1.73 sq M.predicted MDRD (S/P/Bld) [Vol rate/Area] mL/min/{1.73_m2} Normal [facility] Comment on above: Performed By: #### E BS LIPID, EMP BMP #### [facility] [address] [id number] [place] Calcium [Mass/volume] in Ser um or PlasmaOrdered By: Janna Escalera on 12-08-2023 Calcium [Mass/Vol] 9.5 mg/dL Normal 8.6-10.3 [facility] Comment on above: Performed By: #### E BS LIPID, EMP BMP #### [facility] [address] [place] [address] [place] Carbon dioxide, total [Moles /volume] in Serum or PlasmaOrdered By: Janna Escalera on 12-08-2023 CO2 [Moles/Vol] 29.1 mmol/L Normal 21.0-31.0 [facility] Comment on above: Performed By: #### E BS LIPID, EMP BMP #### [facility] [address] [id number] [place] Chloride [Moles/volume] in S radha or PlasmaOrdered By: Janna Escalera on 12-08-2023 Chloride [Moles/Vol] 105 mmol/L Normal 98-107 [facility] Comment on above: Performed By: #### E BS LIPID, EMP BMP #### [facility] [address] [place] [address] [place] Cholesterol [Mass/volume] in Serum or PlasmaOrdered By: Janna Escalera on 12-08-2023 Cholesterol [Mass/Vol] 163 mg/dL Normal 140-200 [facility] Comment on above: Chol less than 200 m g/dl low riskChol 201-239 mg/dl borderline riskChol 240 mg/dl and greater high risk Result Comment: Chol less than 200 mg/dl low risk Chol 201-239 mg/dl borderline risk Chol 240 mg/dl and greater high risk Performed By: #### E BS LIPID, EMP BMP #### [facility] [address] [place] [address] [place] Cholesterol in LDL Calc [Mas s/Vol]Ordered By: Janna Escalera on 12-08-2023 Cholesterol in LDL [Mass/Vol] 84 mg/dL 0-100 [facility] Comment on above: LDL ATP III CLASSIFI CATIONLDL less than 100 mg/dL OptimalLDL 100-129 mg/dL Near or above optimalLDL 130-159 mg/dL Borderline highLDL 160-189 mg/dL HighLDL greater than 189 mg/dL Very high Cholesterol in VLDL Calc [Ma ss/Vol]Ordered By: Janna Escalera on 12-08-2023 Cholesterol in VLDL [Mass/Vol] 17 mg/dL [facility] Creatinine [Mass/volume] in Serum or PlasmaOrdered By: Janna Escalera on 12-08-2023 Creatinine [Mass/Vol] 0.69 mg/dL Normal 0.60-1.20 [facility] Comment on above: Performed By: #### E BS LIPID, EMP BMP #### [facility] [address] [place] [address] [place] Glucose [Mass/volume] in Ser um or PlasmaOrdered By: Janna sEcalera on 12-08-2023 Glucose [Mass/Vol] 83 mg/dL Normal 70-100 [facility] Comment on above: Performed By: #### E BS LIPID, EMP BMP #### [facility] [address] [place] [address] [place] Lipid Profileon 12-08-2023 LDL Cholesterol,Calculated 84 mg/dL Normal 0-100 [facility] Comment on above: Result Comment: LDL ATP III CLASSIFICATION LDL less than 100 mg/dL Optimal LDL 100-129 mg/dL Near or above optimal LDL 130-159 mg/dL Borderline high LDL 160-189 mg/dL High LDL greater than 189 mg/dL Very high Performed By: #### E BS LIPID, EMP BMP #### [facility] [address] Triglyceride w/Reflex 87 mg/dL Normal 0-149 [facility] Comment on above: Result Comment: TRIG ATP III CLASSIFICATION TRIG less than 150 mg/dL Normal TRIG 150-199 mg/dL Borderline high TRIG 200-500 mg/dL High TRIG greater than 500 mg/dL Very high Standard traceable to the Center for Disease Conrtrol and Prevention (CDC) test method. Performed By: #### E BS LIPID, EMP BMP #### [address] VLDL CHOLESTEROL 17 mg/dL Normal [facility] Comment on above: Performed By: #### E BS LIPID, EMP BMP #### [address] No Panel InformationOrdered By: Janna Escalera on 12-08-2023 Estimated GFR (CKD-EPI) > 60.0 mL/Min [facility] Creatinine Clearance (Chem N/A [facility] Potassium [Moles/volume] in Serum or PlasmaOrdered By: Janna Escalera on 12-08-2023 Potassium [Moles/Vol] 3.6 mmol/L Normal 3.5-5.1 [facility] Comment on above: Performed By: #### E BS LIPID, EMP BMP #### [facility] [address] [place] [address] Serum or plasma anion gap de terminationOrdered By: Janna Escalera on 12-08-2023 Anion gap [Moles/Vol] 10.5 mmol/L Normal 6.0-15.0 [facility] Comment on above: Performed By: #### E BS LIPID, EMP BMP #### [facility] [address] [place] [address] [place] Serum or plasma high density lipoprotein (HDL) cholesterol measurementOrdered By: Janna Escalera on 12-08-2023 Cholesterol in HDL [Mass/Vol] 62 mg/dL Normal 23-92 [facility] Comment on above: HDL CHOL ATP-III CLA SSIFICATION Cardiovascular RiskHDL > or equal to 60 mg/dL LOWHDL < 40 mg/dL HIGH Result Comment: HDL CHOL ATP-III CLASSIFICATION Cardiovascular Risk HDL > or equal to 60 mg/dL LOW HDL < 40 mg/dL HIGH Performed By: #### E BS LIPID, EMP BMP #### [facility] [address] Serum or plasma total choles terol/high density lipoprotein (HDL) cholesterol mass ratOrdered By: Janna Escalera on 12-08-2023 Cholesterol.total/Chol esterol in HDL [Mass ratio] 2.6 {ratio} Normal <5.0 [facility] Comment on above: Result Comment: PERF ORMED BY: [place] [address] PATHOLOGIST SUPERVISOR [employer] CHERYL GEORGE M.D. Performed By: #### E BS LIPID, EMP BMP #### [facility] [address] [place] [address] [place] Sodium [Moles/volume] in Ser um or PlasmaOrdered By: Janna Escalera on 12-08-2023 Sodium [Moles/Vol] 141 mmol/L Normal 136-145 [facility] Comment on above: Performed By: #### E BS LIPID, EMP BMP #### [facility] [address] [place] [address] [place] Triglyceride [Mass/volume] i n Serum or PlasmaOrdered By: Janna Escalera on 12-08-2023 Triglyceride [Mass/Vol] 87 mg/dL 0-149 [facility] Comment on above: TRIG ATP III CLASSIF ICATIONTRIG less than 150 mg/dL NormalTRIG 150-199 mg/dL Borderline highTRIG 200-500 mg/dL High TRIG greater than 500 mg/dL Very highStandard traceable to the Center for Disease Conrtrol and Prevention (CDC) test method. Urea nitrogen [Mass/volume] in Serum or PlasmaOrdered By: Janna Escalera on 12-08-2023 Urea nitrogen [Mass/Vol] 14 mg/dL Normal 7-25 [facility] Comment on above: Performed By: #### E BS LIPID, EMP BMP #### [facility] [address] [id number] [facility] MRI HIP RIGHT W CONTRASTon 1 [...] Tucker Ashby MD 06/08/22 Final result Normal [facility] IR INJ ARTHROGRAM HIP RIGHTo n [...] 120.55 uGy cm 2 Views: 3 PROCEDURE: PRIMARY CARE NURSE PRACTITIONER: Elijah Houston This procedure was performed by [...] Eric Rae MD 06/05/22 Final result Normal [facility] Successful fluoroscopic-guided right hip arthrogram. Patient was transferred to MRI for further imaging. [facility] RIS CONSOLIDATED EXAMINATION: FLUOROSCOPIC GUIDED RIGHT HIP ARTHROGRAM, 06/05/2022 2:50 pm COMPARISON: None. HISTORY: ORDERING SYSTEM PROVIDED HISTORY: Tear of right acetabular labrum, initial encounter TECHNOLOGIST PROVIDED HISTORY: r/o R hip labral tear. MRI ordered Is the patient ?->No FLUOROSCOPY DOSE AND TYPE OR TIME AND EXPOSURES: Fluoro time 0.3 minutes DAP 120.55 uGy cm 2 Views: 3 PROCEDURE: PRIMARY CARE NURSE PRACTITIONER: Elijah Houston This procedure was performed by [...] and left the Department in stable condition. [facility] RIS CONSOL[facility] Eric Dukes MD - [...] 120.55 uGy cm 2 Views: 3 PROCEDURE: PRIMARY CARE NURSE PRACTITIONER: Elijah Houston This procedure was performed by [...] was transferred to MRI for further imaging. [facility] Phone: Radiology Study observation (narrative) [facility] Phone: IR INJ ARTHROGRAM HIP RIGHTO rdered By: Eric Dukes on 06-05-2022 [employer] Phone: 2018 Novel Coronavirus (CoVI D-19), SAMIR LCon 02-20-2021 SARS-CoV-2 (COVID-19) RNA SAMIR+probe Ql (Unsp spec) Not detected Invalid Interpretation Code Not Detected [facility] Comment on above: Result Comment: This nucleic acid amplification test was developed and its performance characteristics determined by [employer]. Nucleic acid amplification tests include RT- PCR [...] detected) result in this assay. Performed At: [address] [id number] Maritza Uribe PhD Ph:[phone] Performed By: #### 6 [id number] #### [facility] (DEFAULT) [address] [place] [address] Consent Formson 02-19-2021 Consent Forms [id number] [facility] [id number] #[facility] - Toxicology Resultson 0 02-19-2021 Lab - Toxicology Results [id number] #[facility] Outside Recordson 02-19-2021 Outside Records [id number] #[facility] Triage Industrialon 02-20-20 21 Drug Screen Complete Collected [facility] Comment on above: Performed By: #### 1 [id number] #### [facility] (DEFAULT) [address] [place] [address] ED Clinical Summaryon 2020 ED Clinical Summary [facility] ? Urgent Care [address] [place], [place] [address] Clinical Summary PERSON INFORMATION Name: MADDIE RAMAN Age: 25 Years Sex: FEMALE : 1995 MRN: Acct#: Visit Reason: Medical screening exam; VIKASH WATSON Arrival: 02/18/2021 13:01:04 Discharge: 02/18/2021 14:21:00 LOS: 000 01:20 Check In: 02/18/2021 13:01:04 Checkout: 02/18/2021 14:21:00 Address: [address] [place] [id number] PCP: Provider, Unlisted PROVIDER INFORMATION Provider Role [...] verbalizes understanding of instructions given Comment: Normal [facility] ED Patient Summaryon 021 ED Patient Summary [facility] ? Urgent Care [address] [place] [address] PATIENT DISCHARGE INSTRUCTIONS Patient Information Name: MADDIE RAMAN Age: 25 Years Date of : 1995 Reason For Visit[facility]: 02/18/2021 13:01:04 Primary Care Physician: Provider, Unlisted Attending Physician: Adam Moncada PA-C Comment: Patient Education Medication Information: The exam and treatment you received today in the [facility] Emergency Department were for an urgent problem and are not intended as complete care. It is important for you to follow up with a doctor, nurse practitioner, or physician?s mri assistant for ongoing care. If your symptoms [...] so we can reach you if necessary. [facility] Emergency [facility] has provided you with a complete list of medications post discharge. 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 charge accounts audit clerk/provider of your visit and for further instruction on these medications. Any specific questions regarding your chronic medications and dosages should be discussed with your primary care physician(s) and/or pharmacist. Visit Information Visit Diagnosis: Diagnoses This Visit Medical screening exam ([id number]) If you received any narcotics, sedation, or [...] Reason for Visit: Patient arrives to for [place] physical Allergies: Substance Reaction Symptoms Type Comments [...] for Disease Control and Prevention February 2014 [facility] Urgent Care Note- Provideron 02-18-2021 Urgent Care Note- Provider Patient: MADDIE RAMAN Age: 25 years Sex: FEMALE : 1995 Associated Diagnoses: None Author: Adam Moncada PA-C Basic Information Additional information: Chief Complaint from Nursing Triage Note : Chief Complaint 02/18/2021 13:34 EDT Chief Complaint Patient arrives to for [place] physical . History of Present Illness Patient presents for a pre-employment physical. She is cleared for work. Exam is normal. See scanned document. PSYCHIATRIC: Mood and affect appropriate. Health Status Allergies: Allergic Reactions (Selected) No known allergies. Past Medical/ Family/ Social History Medical history: No active or resolved past medical history items have been selected or recorded.. Surgical history: Cholecystectomy ([id number]). Hip replacement ([id number]). delivery ([id number]). Cardiac ablation system ([id number]).. Family history: No family history items have [...] % Oxygen Therapy Room air . Normal [facility] [place] 021 Urgent Care Record [facility] ? Urgent Care [address] [place] [address] PATIENT DISCHARGE INSTRUCTIONS Patient Information Name: MADDIE RAMAN Age: 25 Years Date of : 1995 Reason For Visit: Medical screening exam; [facility] Arrival Time: 02/18/2021 13:01:04 Primary Care Physician: Provider, Unlisted Attending Physician: Adam Moncada PA-C Comment: Visit Diagnosis: Diagnoses This Visit Medical screening exam ([id number]) If you received any narcotics, sedation, or [...] and treatment you received today in the [facility] Care were for an urgent problem and are not intended as complete care. It is important for you to follow up with a doctor, nurse practitioner, or physician?s mri assistant for ongoing care. If your symptoms [...] so we can reach you if necessary. [facility] has provided you with a complete list of medications post discharge. 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 charge accounts audit clerk/provider of your visit and for further [...] for Disease Control and Prevention February 2014 [facility] PROGESTERONEon 05-25-2020 Progesterone 3.3 ng/mL Normal [facility] Comment on above: Result Comment: Foll icular phase 0.1 - 0.9 Luteal phase 1.8 - 23.9 Ovulation phase 0.1 - 12.0 First trimester 11.0 - 44.3 Second trimester 25.4 - 83.3 Third trimester 58.7 - 214.0 Postmenopausal 0.0 - 0.1 Performed By: #### P ROSA #### [facility] [address], [place] [address] Sebastian Ordoñez Hgb/Hcton 02-22-2019 Hematocrit (Bld) [Volume fraction] 28.7 % Low 36-46 [facility] Comment on above: Performed By: #### H H #### [facility] [address], [place] [id number] Land Clearer: Remy Haq DO Hemoglobin (Bld) [Mass/Vol] 9.4 g/dL Low 12.0-16.0 [facility] Comment on above: Performed By: #### H H #### [facility] [address], [place] [id number] Land Clearer: Remy Haq DO Basic Metabolic Profon 02-20 (cont.) Normal [facility] Comment on above: Result Comment: Aver age GFR for 20-29 years old: 116 mL/min/1.73sq m Chronic Kidney Disease: <60 mL/min/1.73sq m Kidney failure: <15 mL/min/1.73sq m eGFR calculated using average adult body mass. Additional eGFR calculator available at: http://www.Sabirmedical.Diagnoplex/multiple_crcl_2011.htm Performed By: #### C BC, BMP #### [facility] [address] [place] [address] Land Clearer: Remy Haq DO Anion gap [Moles/Vol] 13 mmol/L Normal 9-17 [facility] Comment on above: Performed By: #### C BC, BMP #### [facility] [address] [place] [address] Land Clearer: Remy Haq DO Calcium [Mass/Vol] 8.8 mg/dL Normal 8.6-10.4 [facility] Comment on above: Performed By: #### C JAMA, BMP #### [facility] [place] [address] Land Clearer: Remy Haq DO Chloride [Moles/Vol] 103 mmol/L Normal 98-107 [facility] Comment on above: Performed By: #### C JAMA, BMP #### [facility] [place] [address] Land Clearer: Remy Haq DO CO2 [Moles/Vol] 25 mmol/L Normal 20-31 [facility] Comment on above: Performed By: #### C JAMA, BMP #### [facility] [facility] [place] [address] Land Clearer: Remy Haq DO Creatinine [Mass/Vol] 0.72 mg/dL Normal 0.50-0.90 [facility] Comment on above: Performed By: #### C JAMA, BMP #### [facility] [place] [address] Land Clearer: Remy Haq DO GFR, Amer >60 Normal >60 [facility] Comment on above: Performed By: #### C BC, BMP #### [facility] [address] [place] [address] Land Clearer: Remy Haq DO GFR,non Amer >60 Normal >60 [facility] Comment on above: Performed By: #### C JAMA, BMP #### [facility] [address] [place] [address] Land Clearer: Remy Haq DO Glucose [Mass/Vol] 96 mg/dL Normal 70-99 [facility] Comment on above: Performed By: #### C JAMA, BMP #### [facility] [address] [place] [address] Land Clearer: Remy Haq DO Potassium [Moles/Vol] 4.0 mmol/L Normal 3.7-5.3 [facility] Comment on above: Performed By: #### Joy YUN, BMP #### [facility] [place] [address] Land Clearer: Remy Haq DO Sodium [Moles/Vol] 141 mmol/L Normal 135-144 [facility] Comment on above: Performed By: #### Joy YUN, BMP #### [facility] [place] [address] Land Clearer: Remy Haq DO Urea nitrogen [Mass/Vol] 10 mg/dL Normal 6-20 [facility] Comment on above: Performed By: #### C JAMA, BMP #### [facility] [address] [place] [address] Land Clearer: Remy Haq DO BUN/CRE Ratio NOT REPORTED Normal 9-20 [facility] Comment on above: Performed By: #### C JAMA, BMP #### [facility] [place] [address] Land Clearer: Remy Haq DO Staging: NOT REPORTED Normal [facility] Comment on above: Performed By: #### Joy YUN, BMP #### [facility] [address] [place] [address] Land Clearer: Remy Haq DO CBCon 02-20-2019 Erythrocyte distribution width (RBC) [Ratio] 16.5 % High 11.5-14.9 [facility] Comment on above: Performed By: #### Joy YUN, BMP #### [facility] [address] [place] [address] Land Clearer: Remy Haq DO Hematocrit (Bld) [Volume fraction] 25.9 % Low 36-46 [facility] Comment on above: Performed By: #### Joy YUN, BMP #### [facility] [address] [place] [address] Land Clearer: Remy Haq DO Hemoglobin (Bld) [Mass/Vol] 8.6 g/dL Low 12.0-16.0 [facility] Comment on above: Performed By: #### Joy YUN, BMP #### [facility] [address] [place] [address] Land Clearer: Remy Haq DO MCH (RBC) [Entitic mass] 28.2 pg Normal 26-34 [facility] Comment on above: Performed By: #### Joy YUN, BMP #### [facility] [address] [place] [address] Land Clearer: Remy Haq DO MCHC (RBC) [Mass/Vol] 33.0 g/dL Normal 31-37 [facility] Comment on above: Performed By: #### Joy YUN, BMP #### [facility] [address] [place] [address] Land Clearer: Remy Haq DO MCV (RBC) [Entitic vol] 85.4 fL Normal 80-100 [facility] Comment on above: Performed By: #### Joy YUN, BMP #### [facility] [address] [facility] [place] [address] Land Clearer: Remy Haq DO Platelet mean volume (Bld) [Entitic vol] 6.7 fL Normal 6.0-12.0 [facility] Comment on above: Performed By: #### Joy YUN, BMP #### [facility] [place] [address] Land Clearer: Remy Haq DO Platelets (Bld) [#/Vol] 419 10*3/uL Normal 150-450 [facility] Comment on above: Performed By: #### Joy YUN, BMP #### [facility] [place] [address] Land Clearer: Remy Haq DO RBC (Bld) [#/Vol] 3.03 10*6/uL Low 4.0-5.2 [facility] Comment on above: Performed By: #### Joy YUN, BMP #### [facility] [place] [address] Land Clearer: Remy Haq DO WBC (Bld) [#/Vol] 6.3 10*3/uL Normal 3.5-11.0 [facility] Comment on above: Performed By: #### Joy YUN, BMP #### [facility] [address] [place] [address] Land Clearer: Remy Haq DO NRBC Automated NOT REPORTED Normal [facility] Comment on above: Performed By: #### Joy YUN, BMP #### [facility] [address] [place] [address] Land Clearer: Remy Haq DO Hgb/Hcton 02-20-2019 Hematocrit (Bld) [Volume fraction] 29.6 % Low 36-46 [facility] Comment on above: Performed By: #### H H #### [facility] [address] [place] [address] Land Clearer: Remy Haq DO Hemoglobin (Bld) [Mass/Vol] 9.7 g/dL Low 12.0-16.0 [facility] Comment on above: Performed By: #### H H #### [facility] [place] [address] Land Clearer: Remy Haq DO CBCon 02-19-2019 Erythrocyte distribution width (RBC) [Ratio] 16.6 % High 11.5-14.9 [facility] Comment on above: Performed By: #### C BC #### [facility] [address] [place] [address] Land Clearer: Remy Haq DO Hematocrit (Bld) [Volume fraction] 23.2 % Low 36-46 [facility] Comment on above: Performed By: #### C BC #### [facility] [address] [place] [address] Land Clearer: Remy Haq DO Hemoglobin (Bld) [Mass/Vol] 7.6 g/dL Low 12.0-16.0 [facility] Comment on above: Performed By: #### C BC #### [facility] [address] [place] [address] Land Clearer: Remy Haq DO MCH (RBC) [Entitic mass] 27.8 pg Normal 26-34 [facility] Comment on above: Performed By: #### C BC #### [facility] [address] [place] [address] Land Clearer: Remy Haq DO MCHC (RBC) [Mass/Vol] 32.7 g/dL Normal 31-37 [facility] Comment on above: Performed By: #### C BC #### [facility] [address] [facility] [place] [address] Land Clearer: Remy Haq DO MCV (RBC) [Entitic vol] 85.0 fL Normal 80-100 [facility] Comment on above: Performed By: #### C BC #### [facility] [address] [facility] [place] [address] Land Clearer: Remy Haq DO Platelet mean volume (Bld) [Entitic vol] 6.5 fL Normal 6.0-12.0 [facility] Comment on above: Performed By: #### C BC #### [facility] [address] [place] [address] Land Clearer: Remy Haq DO Platelets (Bld) [#/Vol] 444 10*3/uL Normal 150-450 [facility] Comment on above: Performed By: #### C BC #### [facility] [address] [place] [address] Land Clearer: Remy Haq DO RBC (Bld) [#/Vol] 2.73 10*6/uL Low 4.0-5.2 [facility] Comment on above: Performed By: #### C BC #### [facility] [address] [place] [address] Land Clearer: Remy Haq DO WBC (Bld) [#/Vol] 5.1 10*3/uL Normal 3.5-11.0 [facility] Comment on above: Performed By: #### C BC #### [facility] [address] [place] [address] Land Clearer: Remy Haq DO NRBC Automated NOT REPORTED Normal [facility] Comment on above: Performed By: #### C BC #### [facility] [address] [facility] [place] [address] Land Clearer: Remy Haq DO Type + Crossmatchon 02-20-20 19 Type + Crossmatch Sample Expiration 02/22/2019 Arm Band Number [id number] ABO/Rh(D) A POSITIVE Antibody Screen NEGATIVE Blood Bank Comment Pt's ABRh confirmed as A POS:402 Results Verified BLANCHE, Polyspecific NEGATIVE BLANCHE, Anti-IgG Loreta Serum NEGATIVE Antibody Ident Anti-[place](A) Present Unit Number [id number] Blood Component Type Leukocyte Reduced Red Cell Unit Division 00 Status of Unit TRANSFUSED Transfusion Status OK TO TRANSFUSE Crossmatch Result COMPATIBLE Normal [facility] Comment on above: Performed By: #### T YX #### [facility] [address] [place] [address] Land Clearer: Remy Haq DO Basic Metab w/rfx MGon 02-16 (cont.) Normal [facility] Comment on above: Result Comment: Aver age GFR for 20-29 years old: 116 mL/min/1.73sq m Chronic Kidney Disease: <60 mL/min/1.73sq m Kidney failure: <15 mL/min/1.73sq m eGFR calculated using average adult body mass. Additional eGFR calculator available at: http://www.Sabirmedical.Diagnoplex/multiple_crcl_2012.htm Performed By: #### B MPX, CBC #### [facility] [address] [place] [address] Land Clearer: Remy Haq DO Anion gap [Moles/Vol] 11 mmol/L Normal 9-17 [facility] Comment on above: Performed By: #### B MPX, CBC #### [facility] [address] [place] [address] Land Clearer: Remy Haq DO Calcium [Mass/Vol] 8.6 mg/dL Normal 8.6-10.4 [facility] Comment on above: Performed By: #### B MPX, CBC #### [facility] [address] [facility] [place] [address] Land Clearer: Remy Haq DO Chloride [Moles/Vol] 100 mmol/L Normal 98-107 [facility] Comment on above: Performed By: #### B MPX, CBC #### [facility] [address] [facility] [place] [address] Land Clearer: Remy Haq DO CO2 [Moles/Vol] 26 mmol/L Normal 20-31 [facility] Comment on above: Performed By: #### B MPX, CBC #### [facility] [place] [address] Land Clearer: Remy Haq DO Creatinine [Mass/Vol] 0.62 mg/dL Normal 0.50-0.90 [facility] Comment on above: Performed By: #### B MPX, CBC #### [facility] [place] [address] Land Clearer: Remy Hqa DO GFR, Amer >60 Normal >60 [facility] Comment on above: Performed By: #### B MPX, CBC #### [facility] [place] [address] Land Clearer: Remy Haq DO GFR,non Amer >60 Normal >60 [facility] Comment on above: Performed By: #### B MPX, CBC #### [facility] [place] [address] Land Clearer: Remy Haq DO Glucose [Mass/Vol] 95 mg/dL Normal 70-99 [facility] Comment on above: Performed By: #### B MPX, CBC #### [facility] [place] [address] Land Clearer: Remy Haq DO Potassium [Moles/Vol] 4.2 mmol/L Normal 3.7-5.3 [facility] Comment on above: Performed By: #### B MPX, CBC #### [facility] [address] [place] [address] Land Clearer: Remy Haq DO Sodium [Moles/Vol] 137 mmol/L Normal 135-144 [facility] Comment on above: Performed By: #### B MPX, CBC #### [facility] [place] [address] Land Clearer: Remy Haq DO Urea nitrogen [Mass/Vol] 11 mg/dL Normal 6-20 [facility] Comment on above: Performed By: #### B MPX, CBC #### [facility] [address] [place] [address] Land Clearer: Remy Haq DO BUN/CRE Ratio NOT REPORTED Normal 9-20 [facility] Comment on above: Performed By: #### B MPX, CBC #### [facility] [place] [address] Land Clearer: Remy Haq DO Staging: NOT REPORTED Normal [facility] Comment on above: Performed By: #### B MPX, CBC #### [facility] [address] [place] [address] Land Clearer: Remy Haq DO CBCon 02-16-2019 Erythrocyte distribution width (RBC) [Ratio] 16.3 % High 11.5-14.9 [facility] Comment on above: Performed By: #### B MPX, CBC #### [facility] [place] [address] Land Clearer: Remy Haq DO Hematocrit (Bld) [Volume fraction] 22.4 % Low 36-46 [facility] Comment on above: Performed By: #### B MPX, CBC #### [facility] [address] [place] [address] Land Clearer: Remy Haq DO Hemoglobin (Bld) [Mass/Vol] 7.6 g/dL Low 12.0-16.0 [facility] Comment on above: Performed By: #### B MPX, CBC #### [facility] [address] [place] [address] Land Clearer: Remy Haq DO MCH (RBC) [Entitic mass] 29.4 pg Normal 26-34 [facility] Comment on above: Performed By: #### B MPX, CBC #### [facility] [address] [place] [address] Land Clearer: Remy Haq DO MCHC (RBC) [Mass/Vol] 33.8 g/dL Normal 31-37 [facility] Comment on above: Performed By: #### B MPX, CBC #### [facility] [address] [place] [address] Land Clearer: Remy Haq DO MCV (RBC) [Entitic vol] 87.1 fL Normal 80-100 [facility] Comment on above: Performed By: #### B MPX, CBC #### [facility] [address] [place] [address] Land Clearer: Remy Haq DO Platelet mean volume (Bld) [Entitic vol] 6.4 fL Normal 6.0-12.0 [facility] Comment on above: Performed By: #### B MPX, CBC #### [facility] [address] [place] [address] Land Clearer: Remy Haq DO Platelets (Bld) [#/Vol] 503 10*3/uL High 150-450 [facility] Comment on above: Performed By: #### B MPX, CBC #### [facility] [address] [facility] [place] [address] Land Clearer: Remy Haq DO RBC (Bld) [#/Vol] 2.57 10*6/uL Low 4.0-5.2 [facility] Comment on above: Performed By: #### Adam MPX, CBC #### [facility] [address] [facility] [place] [address] Land Clearer: Remy Haq DO WBC (Bld) [#/Vol] 7.5 10*3/uL Normal 3.5-11.0 [facility] Comment on above: Performed By: #### Adam MPX, CBC #### [facility] [address] [facility] [place] [address] Land Clearer: Remy Haq DO NRBC Automated NOT REPORTED Normal [facility] Comment on above: Performed By: #### Adam MPX, CBC #### [facility] [address] [facility] [place] [address] Land Clearer: Remy Haq DO Basic Metabolic Panel w/ Ref savanah to MGon 02-15-2019 Anion gap [Moles/Vol] 14 mmol/L 9 - 17 mmol/L [place] Bun/Cre Ratio NOT REPORTED [place] Calcium [Mass/Vol] 8.4 mg/dL Low 8.6 - 10. 4 mg/dL [place] Chloride [Moles/Vol] 102 mmol/L 98 - 10 7 mmol/L [place] CO2 [Moles/Vol] 24 mmol/L 20 - 31 mmol/L [place] Creatinine [Mass/Vol] 0.57 mg/dL 0.5 - 0.9 mg/dL [place] GFR >60 >60 mL/min [place] GFR Non- >60 >60 mL/min [place] GFR/1.73 sq M predicted among non-blacks MDRD (S/P/Bld) [Vol rate/Area] [place] Comment on above: Average GFR for 20-2 9 years old: 116 mL/min/1.73sq m Chronic Kidney Disease: <60 mL/min/1.73sq m Kidney failure: <15 mL/min/1.73sq m eGFR calculated using average adult body mass. Additional eGFR calculator available at: http://www.Codealike/multiple_crcl_2012.htm GFR/1.73 sq M predicted among non-blacks MDRD (S/P/Bld) [Vol rate/Area] NOT REPORTED [place] Glucose [Mass/Vol] 106 mg/dL High 70 - 99 mg/dL [place] Interpretation and review of laboratory results Abnormal [place] Potassium [Moles/Vol] 4.0 mmol/L 3.7 - 5.3 mmol/L [place] Sodium [Moles/Vol] 140 mmol/L 135 - 144 mmol/L [place] Urea nitrogen [Mass/Vol] 11 mg/dL 6 - 20 mg/dL [place] CBC WITH AUTO DIFFERENTIALon 02-15-2019 Basophils (Bld) [#/Vol] 0.06 10*3/uL [place] Basophils/100 WBC (Bld) 1 % 0 - 2 % [place] Differential Type NOT REPORTED [place] Eosinophils (Bld) [#/Vol] 0.33 10*3/uL [place] Eosinophils/100 WBC (Bld) 5 % High 1 - 4 % [place] Erythrocyte distribution width (RBC) [Ratio] 15.3 % High 11.8 - 14.4 % [place] Hematocrit (Bld) [Volume fraction] 24.9 % Low 36.3 - 47.1 % [place] Hemoglobin (Bld) [Mass/Vol] 7.5 g/dL Low 11.9 - 15.1 g/dL [place] Immature granulocytes (Bld) [#/Vol] 1 % High 0 [place] Immature granulocytes (Bld) [#/Vol] 0.10 10*3/uL [place] Interpretation and review of laboratory results Abnormal [place] Lymphocytes (Bld) [#/Vol] 1.93 10*3/uL [place] Lymphocytes/100 WBC (Bld) 27 % 24 - 43 % [place] MCH (RBC) [Entitic mass] 28.2 pg 25.2 - 33.5 pg [place] MCHC (RBC) [Mass/Vol] 30.1 g/dL 28.4 - 34.8 g/dL [place] MCV (RBC) [Entitic vol] 93.6 fL 82.6 - 102.9 fL [place] Monocytes (Bld) [#/Vol] 0.60 10*3/uL [place] Monocytes/100 WBC (Bld) 8 % 3 - 12 % [place] Platelet mean volume (Bld) [Entitic vol] 9.0 fL 8.1 - 13.5 fL [place] Platelets (Bld) [#/Vol] 458 10*3/uL High [place] Platelets (Bld) [#/Vol] NOT REPORTED [place] RBC (Bld) [#/Vol] 2.66 10*6/uL Low 3.95 - 5.1 1 m/uL [place] RBC morphology finding Nom (Bld) ANISOCYTOSIS PRESENT [place] Segmented neutrophils/100 WBC (Bld) 58 % 36 - 65 % [place] Segs Absolute 4.19 [place] WBC (Bld) [#/Vol] 7.2 10*3/uL [place] WBC (Bld) [#/Vol] 0.0 10*3/uL 0.0 per 10 0 WBC [place] WBC Morphology NOT REPORTED [place] Basic Metabolic Panel w/ Ref savanah to MGon 02-13-2019 Anion gap [Moles/Vol] 13 mmol/L 9 - 17 mmol/L [place] Bun/Cre Ratio NOT REPORTED [place] Calcium [Mass/Vol] 8.5 mg/dL Low 8.6 - 10. 4 mg/dL [place] Chloride [Moles/Vol] 105 mmol/L 98 - 10 7 mmol/L [place] CO2 [Moles/Vol] 23 mmol/L 20 - 31 mmol/L [place] Creatinine [Mass/Vol] 0.46 mg/dL Low 0.5 - 0.9 mg/dL [place] GFR >60 >60 mL/min [place] GFR Non- >60 >60 mL/min [place] GFR/1.73 sq M predicted among non-blacks MDRD (S/P/Bld) [Vol rate/Area] NOT REPORTED [place] GFR/1.73 sq M predicted among non-blacks MDRD (S/P/Bld) [Vol rate/Area] [place] Comment on above: Average GFR for 20-2 9 years old: 116 mL/min/1.73sq m Chronic Kidney Disease: <60 mL/min/1.73sq m Kidney failure: <15 mL/min/1.73sq m eGFR calculated using average adult body mass. Additional eGFR calculator available at: http://www.Sabirmedical.Diagnoplex/multiple_crcl_2012.htm Glucose [Mass/Vol] 86 mg/dL 70 - 99 mg/dL [place] Interpretation and review of laboratory results Abnormal [place] Potassium [Moles/Vol] 4.3 mmol/L 3.7 - 5.3 mmol/L [place] Sodium [Moles/Vol] 141 mmol/L 135 - 144 mmol/L [place] Urea nitrogen [Mass/Vol] 9 mg/dL 6 - 20 mg/dL [place] CBC WITH AUTO DIFFERENTIALon 02-13-2019 Basophils (Bld) [#/Vol] 0.06 10*3/uL [place] Basophils/100 WBC (Bld) 1 % 0 - 2 % [place] Differential Type NOT REPORTED [place] Eosinophils (Bld) [#/Vol] 0.40 10*3/uL [place] Eosinophils/100 WBC (Bld) 5 % High 1 - 4 % [place] Erythrocyte distribution width (RBC) [Ratio] 14.8 % High 11.8 - 14.4 % [place] Hematocrit (Bld) [Volume fraction] 25.0 % Low 36.3 - 47.1 % [place] Hemoglobin (Bld) [Mass/Vol] 7.4 g/dL Low 11.9 - 15.1 g/dL [place] Immature granulocytes (Bld) [#/Vol] 2 % High 0 [place] Immature granulocytes (Bld) [#/Vol] 0.14 10*3/uL [place] Interpretation and review of laboratory results Abnormal [place] Lymphocytes (Bld) [#/Vol] 2.18 10*3/uL [place] Lymphocytes/100 WBC (Bld) 25 % 24 - 43 % [place] MCH (RBC) [Entitic mass] 27.1 pg 25.2 - 33.5 pg [place] MCHC (RBC) [Mass/Vol] 29.6 g/dL 28.4 - 34.8 g/dL [place] MCV (RBC) [Entitic vol] 91.6 fL 82.6 - 102.9 fL [place] Monocytes (Bld) [#/Vol] 0.66 10*3/uL [place] Monocytes/100 WBC (Bld) 8 % 3 - 12 % [place] Platelet mean volume (Bld) [Entitic vol] 8.9 fL 8.1 - 13.5 fL [place] Platelets (Bld) [#/Vol] 440 10*3/uL [place] Platelets (Bld) [#/Vol] NOT REPORTED [place] RBC (Bld) [#/Vol] 2.73 10*6/uL Low 3.95 - 5.1 1 m/uL [facility] RBC morphology finding Nom (Bld) ANISOCYTOSIS PRESENT [facility] Segmented neutrophils/100 WBC (Bld) 61 % 36 - 65 % [facility] Segs Absolute 5.37 [facility] WBC (Bld) [#/Vol] 0.0 10*3/uL 0.0 per 10 0 WBC [facility] WBC (Bld) [#/Vol] 8.8 10*3/uL [facility] WBC Morphology NOT REPORTED [facility] E[facility] Complete 2D W Doppler W Coloron 02-13-2019 Transthoracic Echocardiography Report (TTE) Patient Name CECI PERKINS Date of Study 02/13/2019 C Date of 1995 Gender Female Age 23 year(s) Race Unknown Room Number 0240 Height: 65 inch, 165.1 cm Corporate ID [id number] Weight: 301 pounds, 136.5 kg # Patient Acct [id number] BSA: 2.35 m^2 BMI: 50.09 kg/m^2 # MR # [id number] Electronic Commerce Specialist Kaylen Jasso Interpreting Physician Anthony Keating Fellow Referring Nurse Practitioner Interpreting Referring Physician MICHAEL BULLOCK MD Fellow Type of Study TTE procedure:2D Echocardiogram, M-Mode, Doppler, Color Doppler. Procedure Date Date: 02/13/2019 Start: 08:48 AM Study Location: [facility] Technical Quality: Adequate visualization Indications:Irregula [...] seen. Signature Electronically signed by Anthony Keating([facility] physician) on 02/13/2019 02:00 PM FINDINGS Left [...] Wall E' velocity:0.17 m/s Lateral Wall E/E':5.8 [facility] [place], [place] Tamir, Mhpn Incoming Cardio Results From [facility]/ - 02/13/2019 2:01 PM EDT Transthoracic Echocardiography Report (TTE) Patient Name CECI PERKINS Date of Study 02/13/2019 C Date of 1995 Gender Female Age 23 year(s) Race Unknown Room Number 0240 Height: 65 inch, 165.1 cm Corporate ID [id number] Weight: 301 pounds, 136.5 kg # Patient Acct [id number] BSA: 2.35 m^2 BMI: 50.09 kg/m^2 # MR # [id number] Electronic Commerce Specialist Kaylen Jasso Interpreting Physician Anthony Keating Fellow Referring Nurse Practitioner Interpreting Referring Physician MICHAEL BULLOCK MD Fellow Type of Study TTE procedure:2D Echocardiogram, M-Mode, Doppler, Color Doppler. Procedure Date Date: 02/13/2019 Start: 08:48 AM Study Location: [facility] Technical Quality: Adequate visualization Indications:Irregula [...] Signature - Electronically signed by Anthony Keating([facility] physician) on 02/13/2019 02:00 PM - - [...] Wall E' velocity:0.17 m/s Lateral Wall E/E':5.8 [place], [place] EKG 12 Leadon 02-11-2019 Atrial Rate 99 BPM [place], [place] P [place] 69 degrees [place], [place] P-R Interval 136 ms [place] Q-T Interval 344 ms [place] QRS Duration 80 ms [place] QTc Calculation (Bazett) 441 ms [place], [place] R [place] 16 degrees [facility], [place] T [place] 4 degrees [place], [place] Ventricular Rate 99 BPM [place], [place] Tamir, Mhpn Incoming Ekg Results From [facility] - 02/11/2019 11:00 AM EDT Normal sinus rhythm Cannot rule out Anterior infarct , age undetermined Abnormal ECG When compared with ECG of 31-JAN-2019 19:55, No significant change was found [place] Normal sinus rhythm Cannot rule out Anterior infarct , age undetermined Abnormal ECG When compared with ECG of 31-JAN-2019 19:55, No significant change was found [place] HEMOGLOBIN AND HEMATOCRIT, B LOODon 02-11-2019 Hematocrit (Bld) [Volume fraction] 27.0 % Low 36.3 - 47.1 % [place] Hemoglobin (Bld) [Mass/Vol] 8.3 g/dL Low 11.9 - 15.1 g/dL [place] Interpretation and review of laboratory results Abnormal [place], [place] Microscopic Urinalysison Amorphous, UA NOT REPORTED None [facility] Bacteria, UA NOT REPORTED None [facility]- [place], [place] Casts UA [place], [place] Crystals UA NOT REPORTED None /HPF [place] Epithelial Cells UA 0 TO 2 [place], [place] Mucus, UA NOT REPORTED None [place] Other Observations UA NOT REPORTED NOT REQ. M [place], [place] RBC (U) [#/Vol] 5 TO 10 [place], [place] Comment on above: Reference range defi xiomy for non-centrifuged specimen. Renal Epithelial, Urine NOT REPORTED 0 /HPF [place], [place] Trichomonas, UA NOT REPORTED None [place], [place] WBC, UA TOO NUMEROUS TO COUNT [place], [place] Yeast, UA NOT REPORTED None [place] - [place] URINALYSISon 02-11-2019 Bilirubin Urine Negative NEGATIVE [place], [place] Color, UA YELLOW YELLOW [place], [place] Glucose, Ur Negative NEGATIVE [place] Interpretation and review of laboratory results Abnormal [place], [place] Ketones Ql (U) Negative NEGATIVE [place], [place] Leukocyte esterase Test strip Ql (U) LARGE Abnormal NEGATIVE [place], [place] Nitrite, Urine Negative NEGATIVE [place], [place] pH, UA 5.0 [place], [place] Protein (U) [Mass/Vol] Negative NEGATIVE [place] Specific [place], UA 1.013 [place], [place] Turbidity UA CLOUDY Abnormal CLEAR [place], [place] Urinalysis Comments NOT REPORTED [place] Urine Hgb MODERATE Abnormal NEGATIVE [place], [place] Urobilinogen, Urine Normal Normal [place] HEMOGLOBIN AND HEMATOCRIT, B LOODon 02-10-2019 Hematocrit (Bld) [Volume fraction] 22.5 % Low 36.3 - 47.1 % [place] Hemoglobin (Bld) [Mass/Vol] 6.8 g/dL Critically low 11.9 - 15.1 g/dL [place] Interpretation and review of laboratory results Abnormal [place], [place] TYPE AND SCREENon 02-10-2019 ABO/Rh Positive [place], [place] Arm Band Number [id number] [place], [place] Blood product type Nom (BPU) Leukocyte Reduced Red Cell [place], [place] Crossmatch Result COMPATIBLE [facility]ie [facility]ellanos [facility] Dispense Status TRANSFUSED [facility] Monge [facility] Expiration Date 02/10/2019 Sammie Monge [facility] Transfusion Status OK TO TRANSFUSE [facility] [place] Unit Divison 0 [place] Unit Number [id number] [facility] [place] CT PELVIS WO CONTRAST Additi onal Contrast? Noneon 02-09-2019 Tamir, pn Incoming Radiant Results From [facility] - 02/09/2019 12:47 PM EDT EXAMINATION: CT [...] extends anterior to the inferior pubic ramus. [place], [place] EXAMINATION: CT OF THE PELVIS WITHOUT [...] chris edema and small foci of air. [place] 1. Improved alignment of the right posterior wall acetabular fracture status post ORIF. 2. Small intra-articular right hip loose bodies. 3. The long screw extends anterior to the inferior pubic ramus. [place] HEMOGLOBIN AND HEMATOCRIT, Adam Campbell 02-09-2019 Hematocrit (Bld) [Volume fraction] 19.2 % Low 36.3 - 47.1 % [place] Hemoglobin (Bld) [Mass/Vol] 5.9 g/dL Critically low 11.9 - 15.1 g/dL [place], [place] Comment on above: TEST CONFIRMED Interpretation and review of laboratory results Abnormal [place], [place] Hematocrit (Bld) [Volume fraction] 21.2 % Low 36.3 - 47.1 % [place], [place] Hemoglobin (Bld) [Mass/Vol] 6.6 g/dL Critically low 11.9 - 15.1 g/dL [place], [place] Comment on above: TEST CONFIRMED Interpretation and review of laboratory results Abnormal [place], [place] Hematocrit (Bld) [Volume fraction] 23.6 % Low 36.3 - 47.1 % [place], [place] Hemoglobin (Bld) [Mass/Vol] 7.2 g/dL Low 11.9 - 15.1 g/dL [place], [place] Interpretation and review of laboratory results Abnormal [facility] CV HGB/HCTon 02-08-2019 Hematocrit (Bld) [Volume fraction] 24.4 % [place] Hemoglobin (Bld) [Mass/Vol] 7.8 g/dL gm/dL [place], [place] POCT urine pregnancyon 02-08 Beta HCG ( test) Ql (U) Negative NEGATIVE [place], [place] Comment on above: Specimens with hCG [...] 02-08-2019 Tamir, Mhpn Incoming Radiant Results From [facility] - 02/08/2019 1:24 PM EDT EXAMINATION: THREE XRAY VIEWS OF THE RIGHT FOOT 02/08/2019 1:12 pm COMPARISON: Right ankle radiographs February 01, 2019 HISTORY: ORDERING SYSTEM PROVIDED HISTORY: Trauma/Fracture TECHNOLOGIST PROVIDED HISTORY: Trauma/Fracture FINDINGS: No fracture or dislocation. IMPRESSION: No acute osseous abnormality [place] EXAMINATION: THREE XRAY VIEWS OF THE RIGHT FOOT 02/08/2019 1:12 pm COMPARISON: Right ankle radiographs February 01, 2019 HISTORY: ORDERING SYSTEM PROVIDED HISTORY: Trauma/Fracture TECHNOLOGIST PROVIDED HISTORY: Trauma/Fracture FINDINGS: No fracture or dislocation. [place] No acute osseous abnormality [place], [place] XR PELVIS (MIN 3 VIEWS)on EXAMINATION: ONE XRAY VIEW OF THE PELVIS 02/08/2019 12:48 pm COMPARISON: 01/31/2019 HISTORY: ORDERING SYSTEM PROVIDED HISTORY: AP,Judets. Post op pacu TECHNOLOGIST PROVIDED HISTORY: AP,Judets. Post op pacu FINDINGS: Status post internal fixation of the right acetabulum. Anatomic alignment. No hardware complications. [place], [place] Tamir, Mhpn Incoming Radiant Results From [facility] - 02/08/2019 12:57 PM EDT EXAMINATION: ONE XRAY VIEW OF THE PELVIS 02/08/2019 12:48 pm COMPARISON: 01/31/2019 HISTORY: ORDERING SYSTEM PROVIDED HISTORY: AP,Judets. Post op pacu TECHNOLOGIST PROVIDED HISTORY: APJudets. Post op pacu FINDINGS: Status post internal fixation of the right acetabulum. Anatomic alignment. No hardware complications. IMPRESSION: Anatomic alignment status post internal fixation of the right acetabulum [place], [place] Anatomic alignment status post internal fixation of the right acetabulum [place], [place] Tamir, Mhpn Incoming Radiant Results From [employer] - 02/08/2019 12:49 PM EDT EXAMINATION: ONE [...] fluoroscopic image of pelvis as described above. [place] EXAMINATION: ONE XRAY VIEW OF THE PELVIS 02/08/2019 12:39 pm COMPARISON: January 31, 2019 HISTORY: ORDERING SYSTEM PROVIDED HISTORY: intra op TECHNOLOGIST PROVIDED HISTORY: intra op FINDINGS: Intraoperative fluoroscopic image of pelvis demonstrates ORIF of right acetabular fracture with plate and screws, likely in gross anatomic alignment. A Crawley catheter is in place. [place], [place] Intraoperative fluoroscopic image of pelvis as described above. [place] XR WRIST LEFT (MIN 3 VIEWS)o n 02-08-2019 1. Overlying cast/splint material limits evaluation of fine osseous detail. 2. Anatomic alignment of known transversely oriented nondisplaced distal left radius metaphyseal fracture after reduction. 3. No superimposed acute osseous abnormality identified. 4. Soft tissue swelling about the left wrist/distal left forearm. [place], [place] Tamir, Mhpn Incoming Radiant Results From [employer] - 02/08/2019 6:06 PM EDT EXAMINATION: 3 [...] swelling about the left wrist/distal left forearm. [place] EXAMINATION: 3 XRAY VIEWS OF THE [...] the left wrist and distal left forearm. [place], [place] BASIC METABOLIC PANELon 01-20 Anion gap [Moles/Vol] 12 mmol/L 9 - 17 mmol/L [place], [place] Bun/Cre Ratio NOT REPORTED [place], [place] Calcium [Mass/Vol] 8.5 mg/dL Low 8.6 - 10. 4 mg/dL [place], [place] Chloride [Moles/Vol] 102 mmol/L 98 - 10 7 mmol/L [place] CO2 [Moles/Vol] 24 mmol/L 20 - 31 mmol/L [place] Creatinine [Mass/Vol] 0.54 mg/dL 0.5 - 0.9 mg/dL [place] GFR >60 >60 mL/min [place] GFR Non- >60 >60 mL/min [place] GFR/1.73 sq M predicted among non-blacks MDRD (S/P/Bld) [Vol rate/Area] NOT REPORTED [place] GFR/1.73 sq M predicted among non-blacks MDRD (S/P/Bld) [Vol rate/Area] [place], [place] Comment on above: Average GFR for 20-2 9 years old: 116 mL/min/1.73sq m Chronic Kidney Disease: <60 mL/min/1.73sq m Kidney failure: <15 mL/min/1.73sq m eGFR calculated using average adult body mass. Additional eGFR calculator available at: http://www.Codealike/multiple_crcl_2012.htm Glucose [Mass/Vol] 95 mg/dL 70 - 99 mg/dL [place] Interpretation and review of laboratory results Abnormal [place], [place] Potassium [Moles/Vol] 4.6 mmol/L 3.7 - 5.3 mmol/L [place] Sodium [Moles/Vol] 138 mmol/L 135 - 144 mmol/L [place], [place] Urea nitrogen [Mass/Vol] 14 mg/dL 6 - 20 mg/dL [place], [place] BLOOD BANK SPECIMENon 2018 Blood Bank Specimen NOT REPORTED [place] CBCon 02-07-2019 Erythrocyte distribution width (RBC) [Ratio] 13.5 % 11.8 - 14.4 % [place] Hematocrit (Bld) [Volume fraction] 28.1 % Low 36.3 - 47.1 % [place] Hemoglobin (Bld) [Mass/Vol] 8.4 g/dL Low 11.9 - 15.1 g/dL [place] Interpretation and review of laboratory results Abnormal [place], [place] MCH (RBC) [Entitic mass] 26.7 pg 25.2 - 33.5 pg [place] MCHC (RBC) [Mass/Vol] 29.9 g/dL 28.4 - 34.8 g/dL [place] MCV (RBC) [Entitic vol] 89.2 fL 82.6 - 102.9 fL [place], [place] Platelet mean volume (Bld) [Entitic vol] 8.6 fL 8.1 - 13.5 fL [place] Platelets (Bld) [#/Vol] 555 10*3/uL High [place], [place] RBC (Bld) [#/Vol] 3.15 10*6/uL Low 3.95 - 5.1 1 m/uL [place], [place] WBC (Bld) [#/Vol] 0.0 10*3/uL 0.0 per 10 0 WBC [place], [place] WBC (Bld) [#/Vol] 8.0 10*3/uL [place] HEMOGLOBIN AND HEMATOCRIT, B LOBloomington 02-05-2019 Hematocrit (Bld) [Volume fraction] 28.8 % Low 36.3 - 47.1 % [place], [place] Hemoglobin (Bld) [Mass/Vol] 8.6 g/dL Low 11.9 - 15.1 g/dL [place], [place] Interpretation and review of laboratory results Abnormal [place], [place] Basic Metabolic Panel w/ Ref savanah to MGon 02-04-2019 Anion gap [Moles/Vol] 11 mmol/L 9 - 17 mmol/L [place], [place] Bun/Cre Ratio NOT REPORTED [place], [place] Calcium [Mass/Vol] 8.5 mg/dL Low 8.6 - 10. 4 mg/dL [place], [place] Chloride [Moles/Vol] 108 mmol/L High 98 - 10 7 mmol/L [place], [place] CO2 [Moles/Vol] 23 mmol/L 20 - 31 mmol/L [place], [place] Creatinine [Mass/Vol] 0.52 mg/dL 0.5 - 0.9 mg/dL [place] GFR >60 >60 mL/min [place] GFR Non- >60 >60 mL/min [place], KY GFR/1.73 sq M predicted among non-blacks MDRD (S/P/Bld) [Vol rate/Area] NOT REPORTED [place] GFR/1.73 sq M predicted among non-blacks MDRD (S/P/Bld) [Vol rate/Area] [place], [place] Comment on above: Average GFR for 20-2 9 years old: 116 mL/min/1.73sq m Chronic Kidney Disease: <60 mL/min/1.73sq m Kidney failure: <15 mL/min/1.73sq m eGFR calculated using average adult body mass. Additional eGFR calculator available at: http://www.Codealike/multiple_crcl_2012.htm Glucose [Mass/Vol] 93 mg/dL 70 - 99 mg/dL [place] Interpretation and review of laboratory results Abnormal [place], [place] Potassium [Moles/Vol] 4.7 mmol/L 3.7 - 5.3 mmol/L [place], [place] Sodium [Moles/Vol] 142 mmol/L 135 - 144 mmol/L [place], [place] Urea nitrogen [Mass/Vol] 9 mg/dL 6 - 20 mg/dL [place], [place] CBCon 02-04-2019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 Work Phone: [facility] Start: 10-11-2024 End: 10-11-2024 Bamboo flowsheet Carey Pena FORESTRY SUPERVISOR Work Phone: [facility] Start: 10-11-2024 End: 10-11-2024 ambulatory CAREY PENA Not Available Start: 10-11-2024 End: 10-11-2024 flow sheet Carey Pena FORESTRY SUPERVISOR Work Phone: [facility] Comment on above: Third trimester preg belkis; 30 weeks gestation of Start: 10-05-2024 End: 10-05-2024 Office outpatient new 45 minutes Liang Fitzgerald MD Work Phone: [facility] Comment on above: Hx of supraventricul ar tachycardia (Primary Dx) Start: 10-05-2024 End: 10-27-2024 [facility] LIANG FITZGERALD [facility] Start: 09-29-2024 End: 09-29-2024 Orders Only Triny Morales RN [facility] Comment on above: History of sleeve ga strectomy (Primary Dx); Hx of supraventricular tachycardia; Encounter for follow-up ultrasound of anatomy; Encounter for anatomic survey Start: 09-28-2024 End: 09-28-2024 ambulatory [facility] Sean [facility] Start: 09-26-2024 End: 09-26-2024 Bamboo flowsheet Cedric [...] Urbina MD Work Phone: [facility] Comment on above: History of sleeve ga strectomy (Primary Dx); Hx of supraventricular tachycardia Start: 08-24-2024 End: 08-24-2024 Orders Only Cindy Walton RN [facility] Comment on above: History of sleeve ga strectomy (Primary Dx); Hx of supraventricular tachycardia; Encounter for follow-up ultrasound of anatomy Start: 08-14-2024 End: 08-14-2024 Chart abstracting Jordan Urbina MD Work Phone: [facility] Start: 08-05-2024 End: 08-05-2024 Clinisync Result Encounter Zoraida SEGOVIA Work Phone: [facility] External Department Unsolicited Start: 08-05-2024 End: 08-05-2024 Clinisync Result Encounter Zoraida SEGOVIA Work Phone: [facility] External Department Unsolicited Start: 07-31-2024 End: 07-31-2024 Bamboo flowsheet Zoraida SEGOVIA Work Phone: [facility] Start: 07-31-2024 End: 08-04-2024 Bamboo flowsheet Zoradia SEGOVIA Work Phone: [facility] Start: [...] Start: 07-23-2024 End: 07-24-2024 Refill Ally Craig COMPUTATIONAL SCIENCES PROFESSOR-Rithmio [facility] Comment on above: Chest cold; Acute cough; Wheezing Start: 07-16-2024 End: 07-17-2024 Refill Allykadi Craig COMPUTATIONAL SCIENCES PROFESSOR-BIOLOGY LECTURER Work Phone: [facility] Comment on above: Lumbar disc herniati on Start: 07-05-2024 End: 07-07-2024 Clinisync Result Encounter Cedrci Alana DO Work Phone: [facility] External Department [...] Start: 05-02-2024 End: 05-04-2024 Refill Aranza Carballo COMPUTATIONAL SCIENCES PROFESSOR-BIOLOGY LECTURER Work Phone: [facility] General Surgery-Bariatric Comment on above: History of sleeve ga strectomy; Postsurgical malabsorption; Malnutrition following gastrointestinal surgery Start: 03-20-2024 End: 03-20-2024 Refill Aranza Carballo COMPUTATIONAL SCIENCES PROFESSOR-BIOLOGY LECTURER Work Phone: [facility] General Surgery-Bariatric Comment on above: History of sleeve ga strectomy; Postsurgical malabsorption; Malnutrition following gastrointestinal surgery; Vitamin B12 deficiency Start: 03-15-2024 End: 03-15-2024 [facility] Start: 03-15-2024 End: 03-15-2024 Office outpatient visit 25 minutes Ally Craig COMPUTATIONAL SCIENCES PROFESSOR-BIOLOGY LECTURER Work Phone: [facility] Family Medicine Comment on above: History of sleeve ga strectomy (Primary Dx); Malnutrition following gastrointestinal surgery; Chronic fatigue; Sinus pressure; Lipid screening; Weight gain; Mixed anxiety and depressive disorder; BMI 39.0-39.9,adult Start: 03-15-2024 End: 03-15-2024 [facility] Comment on above: History of sleeve ga strectomy (Primary Dx); Postsurgical malabsorption; Malnutrition following gastrointestinal surgery; History of anemia Start: 02-15-2024 End: 02-16-2024 Orders Only Ally Craig COMPUTATIONAL SCIENCES PROFESSOR-BIOLOGY LECTURER Work Phone: [facility] Family Medicine Comment on above: Lumbar disc herniati on Start: 01-25-2024 End: 01-25-2024 Telephone encounter Pat Cotter [facility] Start: 01-20-2024 End: 01-20-2024 [facility] Start: 01-20-2024 End: 01-20-2024 [facility] Comment on above: Dysuria (Primary Dx) Start: 12-27-2023 End: 12-28-2023 Telephone encounter Ally Craig COMPUTATIONAL SCIENCES PROFESSOR-BIOLOGY LECTURER Work Phone: [facility] Start: 12-22-2023 End: 12-22-2023 Office outpatient visit 25 minutes Ally Craig COMPUTATIONAL SCIENCES PROFESSOR-BIOLOGY LECTURER Work Phone: [facility] Comment on above: Lumbar disc herniati on (Primary Dx) Start: 12-22-2023 End: 12-22-2023 [facility] Start: 12-08-2023 End: 12-08-2023 ambulatory NON STAFF [facility] Work Phone: Start: 12-08-2023 End: 12-08-2023 Departed Referred [facility] [address] Work Phone: Start: 08-26-2023 End: 08-26-2023 Office outpatient new 45 minutes Doc Guevara MD Work Phone: [facility] Re[facility]Plast [facility] Comment on above: History of sleeve ga strectomy; Localized adiposity Start: 08-26-2023 End: 08-26-2023 ambulatory DOC GUEVARA [facility] Start: 06-07-2023 End: 06-07-[address] [facility] Start: 06-05-2022 End: 06-08-2022 ambulatory ALLY Pop KIARA [facility] Start: 06-05-2022 End: 06-07-2022 Subsequent hospital visit by physician Eddie Interventional Radiologist [facility] Special Procedures Comment on above: Tear of right acetab ular labrum, initial encounter Start: 03-19-2022 End: 03-19-2022 ambulatory Jeane Canela Other [employer] Other Start: 03-19-2022 Telephone encounter Jeane TERRAZ[facility] Start: 05-24-2020 End: 05-25-[address] CEDRIC WARNER Facility:[facility] Start: 02-15-2019 End: 02-22-2019 Evaluation and management of inpatient TERRI AUGUSTIN [facility] Start: 01-31-2019 End: 02-15-2019 Evaluation [...] et rgnt non-auto w/o micrscp Radha Gan COMPUTATIONAL SCIENCES PROFESSOR-BIOLOGY LECTURER Work Phone: Start: 11-09-2022 Adult depression scr [...] TERRIMIRACLE AUGUSTIN Start: 02-22-2019 INCENTIVE SPIROMETRY RT TRERI DEMETRIA Start: 02-22-2019 INITIATE OXYGEN THER APY PROTOCOL TERRIMIRALCE AUGUSTIN Start: 02-22-2019 HEMOGLOBIN AND HEMAT OCRIT, [...] TERRI AUGUSTIN Start: 02-18-2019 INCENTIVE SPIROMETRY RT TERIR AUGUSTIN Start: 02-18-2019 INCENTIVE SPIROMETRY RT TERRI AUGUSTIN Start: 02-18-2019 Dup-scan xtr veins complete bilateral study TERRI AUGUSTIN Start: 02-18-2019 INCENTIVE SPIROMETRY RT TERRI DMEETRIA Start: 02-18-2019 INCENTIVE SPIROMETRY RT TERRI DEMETRIA [...] TERRI AUGUSTIN Start: 02-15-2019 IP CONSULT TO EMPLOYEE BENEFITS ADMINISTRATOR AL MEDICINE TERRI AUGUSTIN Start: 02-15-2019 IP [...] 02-08-2019 Radex wrist complete minimum 3 views [employer] Work Phone: Start: 02-08-2019 Ct pelvis w/o contra st material Manuel [employer] Work Phone: Start: 02-08-2019 Radex foot complete minimum 3 views [employer] Work Phone: Start: 02-08-2019 Radiologic exam pelv is compl minimum 3 views [employer] Work Phone: Start: 02-08-2019 CV HGB/HCT Donn Benavidez Work Phone: Start: 02-08-2019 Radiologic exam pelv is compl minimum 3 views Mary Pop Mazariegos Work Phone: Start: 02-08-2019 End: 02-08-2019 ACETABULUM OPEN REDUCTION INTERNAL FIXATION Mray Pop Yi De Work Phone: Start: 02-08-2019 Urine test visual color cmprsn meths Donn Lakeisha Vanashley[employer]Social Work Phone: Start: 02-07-2019 BLOOD BANK SPECIMEN Ant michelle Lakeisha SmithVibbyrakesh Work Phone: Start: 02-07-2019 Blood typing serologic abo Cecilio Richards Work Phone: Start: 02-07-2019 Basic metabolic pane l calcium total [employer] Work Phone: Start: 02-07-2019 Blood count complete automated [employer] Work Phone: Start: 02-05-2019 Blood count hemoglobin [...] 02-01-2019 25 hydroxy includes fractions if performed Benson Qian Work Phone: Start: 02-01-2019 Hepatic function panel Benson Qian Work Phone: Start: 02-01-2019 Ct lumbar spine w/o contrast material Federico [employer] Work Phone: Start: 02-01-2019 Ct thoracic spine w/ o contrast material Federico [employer] Work Phone: Start: 02-01-2019 Ct thorax w/contrast material Federico [employer] Work Phone: Start: 02-01-2019 Ct cervical spine w/ o contrast material Federico [employer] Work Phone: Start: 02-01-2019 Ct head/brain w/o co ntrast material Federico [employer] Work Phone: Start: 02-01-2019 Radiologic examinati on knee 3 views Leonel W Butt Work Phone: Start: 02-01-2019 Radex wrist complete minimum 3 views Benson Iqan Work Phone: Start: 02-01-2019 Radex wrist 2 views Mil o Qian Work Phone: Start: 02-01-2019 Radiologic examinati on femur minimum 2 views Leonel W Butt Work Phone: Start: 02-01-2019 Radiologic examinati on tibia & fibula 2 views Leonel W Butt Work Phone: Start: 02-01-2019 Radex hip unilateral with pelvis 2-3 views Leonel W Butt Work Phone: Start: 02-01-2019 PULSE OXIMETRY, CONTINUOUS Federico [employer] Work Phone: Start: 01-31-2019 END TIDAL CO2 CONTINUOUS Federico [employer] Work Phone: Start: 01-31-2019 Radex hip unilateral with pelvis 2-3 views Federico [employer] Work Phone: Start: 01-31-2019 Radex wrist complete minimum 3 views Federico [employer] Work Phone: Start: 01-31-2019 Basic metabolic pane [...] malign ant neoplasm of cervix Pap Smear [employer] Start: 10-05-2025 [facility] Start: 10-05-2025 Tobacco Screening Tobacco Screening [employer] Start: 09-29-2025 End: 09-29-2025 US MFM with or without consult US MFM with or without consult Imaging Routine History of sleeve gastrectomy Hx of supraventricular tachycardia Encounter for follow-up ultrasound of anatomy Encounter for anatomic survey Expected: 09/29/2025 (Approximate), Expires: 09/29/2025 [employer] Phone: Comment on above: Expected: 09/29/2025 (Approximate), Expires: 09/29/2025 Start: 08-24-2025 Adult BMI Screening Adult BMI Screen ing [employer] Start: 08-24-2025 Tobacco Screening Tobacco Screening [employer] Start: 08-24-2025 End: 08-24-2025 US MFM with or without consult US MFM with or without consult Imaging Routine History of sleeve gastrectomy Hx of supraventricular tachycardia Encounter for follow-up ultrasound of anatomy Expected: 08/24/2025 (Approximate), Expires: 08/24/2025 [employer] Phone: Comment on above: Expected: 08/24/2025 (Approximate), Expires: 08/24/2025 Start: 03-15-2025 Adult BMI Screening Adult BMI Screen ing [facility] Start: 03-15-2025 Tobacco Screening Tobacco Screening [facility] Start: 02-19-2025 Influenza vaccination [facility] Start: 01-19-2025 Tobacco Screening Tobacco Screening [facility] Start: 12-21-2024 Adult BMI Screening Adult BMI Screen ing [facility] Start: 12-21-2024 Tobacco Screening Tobacco Screening [facility] Start: 11-18-2024 DTaP,Tdap and Td Vaccines (7 - Td or Tdap) DTaP,Tdap and Td Vaccines (7 - Td or Tdap) [facility] Start: 11-18-2024 DTaP/Tdap/Td vaccine (7 - Td or Tdap) DTaP/Tdap/Td vaccine (7 - Td or Tdap) [facility] Start: 11-18-2024 DTaP/Tdap/Td vaccine (7 - Td) DTaP/Tdap/Td vaccine (7 - Td) [place] Start: 11-09-2024 End: 11-09-2024 Patient encounter procedure 11/09/2024 9:50 AM EDT Routine [facility] [address] [place] [phone] Zoraida Travis PA [address] [place] [address] [facility] Start: 11-06-2024 End: 11-06-2024 Patient encounter procedure 11/06/2024 11:00 AM EDT Appointment [facility] [address] [place] [phone] [facility] Start: 10-25-2024 End: 10-25-2024 [...] 9:45 AM EDT Telemedicine Maternal- Medicine at [facility] [address] [place] [phone] Jordan Urbina MD [address], [address] [place] [address] Maternal- Medicine at [facility] Start: 10-11-2024 End: 10-11-2024 Patient encounter procedure 10/11/2024 9:40 AM EDT Routine [facility] [address] [place] [phone] Zoraida Travis PA [address] [facility] [address] [place] [address] [facility] Start: 10-05-2024 End: 10-05-2025 Wireless Telemetry (In Office) [facility] Work Phone: Comment on above: Expected: 10/05/2024 , Expires: 10/05/2025 Start: 10-05-2024 End: 10-05-2024 Patient encounter procedure 10/05/2024 8:30 AM EDT Office Visit [facility] [address] [place] [phone] Liang Fitzgerald MD [address] [place] [address] [facility] Start: 09-28-2024 End: 09-28-2024 Patient encounter procedure 09/28/2024 2:45 PM EDT Appointment [facility] [address] [place] [phone] [facility] Start: 09-26-2024 End: 09-26-2024 Patient encounter procedure 09/26/2024 9:50 AM EDT Routine [facility] [address] [facility] [place] [place] [phone] Cedric Warner DO [address], [place] [phone] Arrived [facility] Comment on above: Arrived Start: 08-29-2024 End: 08-29-2024 Patient encounter procedure 08/29/2024 8:30 AM EDT Routine [facility] [address] [facility] [place] [place] [phone] Zoraida Travis PA [address] [place] [address] [facility] Start: 08-25-2024 Adult BMI Screening Adult BMI Screen ing [facility] Start: 08-25-2024 Tobacco Screening Tobacco Screening [facility] Start: 08-24-2024 End: 08-24-2024 Patient encounter procedure [facility] Start: 07-31-2024 End: 07-31-2025 US for US OB 14+ weeks anatomy scan Imaging Routine Screening, , for anatomic survey Expected: 07/31/2024, Expires: 07/31/2025 [facility] Comment on above: Expected: 07/31/2024 , Expires: 07/31/2025 Start: 07-31-2024 End: 07-31-2024 Patient encounter procedure 07/31/2024 11:30 AM EST Routine [facility] [address] [place] [phone] Zoraida Travis, PA [address] [place], [place] [id number] Arrived [facility] Comment on above: [...] first trimester Expected: 05/29/2024 (Approximate), Expires: 05/29/2025 [facility] Comment on above: Expected: 05/29/2024 (Approximate), Expires: 05/29/2025 Start: 05-29-2024 End: 05-29-2024 ambulatory 05/29/2024 8:30 AM EST Initial [facility] [address] [facility] [place] [phone] [facility] Start: 05-29-2024 End: 05-29-2024 Professional / ancillary services management 05/29/2024 8:00 AM EST Ancillary Procedure [facility] [address] [place] [phone] [facility] Start: 05-17-2024 End: 05-17-2024 Patient encounter procedure 05/17/2024 7:40 AM EST Office Visit [facility] [address] [place] [address] [place] [phone] Ally Craig, COMPUTATIONAL SCIENCES PROFESSOR-BIOLOGY LECTURER [address], Petr Rodrigue [place], [place] [phone] [facility] Start: 05-11-2024 End: 05-11-2024 Patient encounter procedure 05/11/2024 1:30 PM EST Office Visit [facility] [address] [place] [phone] Giulia Samayoa PA-C [address] [place] [address] [facility] Start: 03-30-2024 End: 03-30-2024 Patient encounter procedure 03/30/2024 2:00 PM EDT Office Visit [facility] [address] [place] [phone] Giulia Samayoa PA-C [address] [place] [phone] [facility] Start: 03-15-2024 End: [...] History of anemia Expected: 03/15/2024, Expires: 03/15/2025 [facility] Comment on above: Expected: 03/15/2024 , Expires: 03/15/2025 Start: 03-15-2024 End: 03-15-2025 Copper, S Copper, S Lab Routine History of sleeve 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 History of anemia Expected: 03/15/2024, Expires: 03/15/2025 [facility] Comment on above: Expected: 03/15/2024 , Expires: 03/15/2025 Start: 03-15-2024 End: 03-15-2025 Cyanocobalamin vitamin b-12 Vitamin B12 Lab Routine History of sleeve 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 History of anemia Expected: 03/15/2024, Expires: 03/15/2025 [facility] Comment on above: Expected: 03/15/2024 , Expires: 03/15/2025 Start: 03-15-2024 End: 03-15-2025 Ferritin [Mass/volume] in Serum or Plasma Ferritin Lab Routine History of sleeve 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 History of anemia Expected: 03/15/2024, Expires: 03/15/2025 [facility] Comment on above: Expected: 03/15/2024 , Expires: 03/15/2025 Start: 03-15-2024 End: 03-15-2025 Folate Folate Lab Routine History of sleeve 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 History of anemia Expected: 03/15/2024, Expires: 03/15/2025 [facility] Comment on above: Expected: 03/15/2024 , Expires: [...] History of anemia Expected: 03/15/2024, Expires: 03/15/2025 [facility] Comment on above: Expected: 03/15/2024 , Expires: 03/15/2025 Start: 03-15-2024 End: 03-15-2025 Parathyroid Hormone, intact Parathyroid Hormone, intact Lab Routine History of sleeve 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 History of anemia Expected: 03/15/2024, Expires: 03/15/2025 [facility] Comment on above: Expected: 03/15/2024 , Expires: 03/15/2025 Start: 03-15-2024 End: 03-15-2025 Thiamin (Vitamin B1), WB Thiamin (Vitamin B1), WB Lab Routine History of sleeve 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 History of anemia Expected: 03/15/2024, Expires: 03/15/2025 [facility] Comment on above: Expected: 03/15/2024 , Expires: 03/15/2025 Start: 03-15-2024 End: 03-15-2025 Vitamin A (Retinol) Vitamin A (Retinol) Lab Routine History of sleeve 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 History of anemia Expected: 03/15/2024, Expires: 03/15/2025 [facility] Comment on above: Expected: 03/15/2024 , Expires: 03/15/2025 Start: 03-15-2024 End: 03-15-2025 Vitamin D 25 hydroxy Vitamin D 25 hydroxy Lab Routine History of sleeve 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 History of anemia Expected: 03/15/2024, Expires: 03/15/2025 [facility] Comment on above: Expected: 03/15/2024 , Expires: 03/15/2025 Start: 03-15-2024 End: 03-15-2025 Zinc, Serum Zinc, Serum Lab Routine History of sleeve 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 History of anemia Expected: 03/15/2024, Expires: 03/15/2025 [facility] Comment on above: Expected: 03/15/2024 , Expires: 03/15/2025 Start: 03-15-2024 End: 03-15-2024 Patient encounter procedure 03/15/2024 7:40 AM EDT Office Visit [facility] [address] [place] [address] [place] [phone] Ally Craig, COMPUTATIONAL SCIENCES PROFESSOR-BIOLOGY LECTURER [address], [place] [address] [facility] Start: 02-20-2024 COVID-19 Vaccine ( season) COVID-19 Vaccine ( season) [facility] Start: 02-20-2024 COVID-19 Vaccine ( season) COVID-19 Vaccine ( season) [facility] Start: 02-20-2024 Influenza vaccination [facility] Start: 01-19-2024 End: 01-19-2024 Patient encounter procedure 01/19/2024 10:20 AM EDT Office Visit [facility] [address] [place] [phone] Ally Craig, COMPUTATIONAL SCIENCES PROFESSOR-BIOLOGY LECTURER [address], [place] [address] [facility] Start: 11-16-2023 End: 11-16-2023 Patient encounter procedure 11/16/2023 10:00 AM EDT Office Visit [facility] [address] [place] [phone] Giulia Samayoa PA-C [address] [phone] [facility] Start: 11-10-2023 Depression Screening Depression Scre ening [facility] Start: 02-19-2023 COVID-19 Vaccine ( season) COVID-19 Vaccine ( season) [facility] Start: 12-29-2022 Adult BMI Follow Up Plan Adult BMI Follow Up Plan [facility] Start: 11-19-2022 Adult BMI Follow Up Plan Adult BMI Follow Up Plan [facility] Start: 01-19-2022 Influenza vaccination Flu vaccine (# 1) [facility] Start: 04-25-2021 COVID-19 Vaccine (2 - Booster for Neel series) COVID-19 Vaccine (2 - Booster for Neel series) [facility] Start: 02-21-2019 End: 02-21-2019 Office Visit 02/21/2019 Office Visit Orthopedic Surgery Mary Mazariegos DO [address] [facility] [address] [place] [address] [phone] [facility] Start: 02-19-2019 Influenza vaccination Flu vaccine (# 1) [place], [place] Start: 2016 Cervical cancer screen Cervical canc er screen [place], [place] Start: 2016 Screening for malign ant neoplasm of cervix Pap smear [facility] Start: 2013 Adult BMI Follow Up Plan Adult BMI Follow Up Plan [facility] Start: 2011 Chlamydia screen Chlamydia screen [place], [place] Start: 2010 HIV screen HIV screen [place], [place] Start: 2010 HIV screening HIV screen [facility] Start: 2010 HPV vaccine (1 - Fem samuel 3-dose series) HPV vaccine (1 - Female 3-dose series) [place], [place] Start: 2008 Varicella Vaccine (1 of 2 - 13+ 2-dose series) Varicella Vaccine (1 of 2 - 13+ 2-dose series) [place] Start: 2007 Depression Monitoring Depression Mon itoring [facility] Start: 2001 Pneumococcal 0-64 ye ars Vaccine (1 - PCV) Pneumococcal 0-64 years Vaccine (1 - PCV) [facility] Start: 2001 Pneumococcal 0-64 ye ars Vaccine (1 of 1 - PPSV23) Pneumococcal 0-64 years Vaccine (1 of 1 - PPSV23) [place], [place] Start: 1996 Varicella vaccine (1 of 2 - 2-dose childhood series) Varicella vaccine (1 of 2 - 2-dose childhood series) [facility] Bacteria identified in Urine by Culture Urine culture Microbiology Routine Missed menses Ordered: 05/29/2024 [facility] [employer] Comment on above: Ordered: 05/29/2024 End: 01-19-2025 Bacteria identified in Urine by Culture Urine culture (clean catch) Microbiology Routine Dysuria 1 Occurrences starting 01/20/2024 until 01/19/2025 [employer] Work Phone: Comment on above: 1 Occurrences starti ng 01/20/2024 until 01/19/2025 CBC W Auto Different ial panel - Blood CBC and differential Lab Routine Missed menses , unspecified gestational age Ordered: 05/29/2024 [facility] [employer] Comment on above: Ordered: 05/29/2024 End: 03-15-2025 CBC W Auto Differential panel - Blood CBC auto differential Lab Routine 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 Chronic fatigue Sinus pressure 1 Occurrences starting 03/15/2024 until 03/15/2025 [employer] Phone: Comment on above: 1 Occurrences starti ng 03/15/2024 until 03/15/2025 CHLAMYDIA TRACHOMATI S (GENITO/STI) CHLAMYDIA TRACHOMATIS (GENITO/STI) Lab Routine Exposure to STD Ordered: 07/31/2024 [facility] [employer] Comment on above: Ordered: 07/31/2024 End: 03-15-2025 Comprehensive metabolic 2000 panel - Serum or Plasma Comprehensive metabolic panel Lab Routine 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 Chronic fatigue 1 Occurrences starting 03/15/2024 until 03/15/2025 [facility] Comment on above: 1 Occurrences starti ng 03/15/2024 until 03/15/2025 End: 02-01-[address] 3D RECONSTRUCTION Imaging STAT Once for 1 Occurrences starting 02/01/2019 until 02/01/2019 [place] Comment on above: Once for 1 Occurrenc es starting 02/01/2019 until 02/01/2019 End: 02-03-[address] 3D Reconstruction Imaging STAT Once for 1 Occurrences starting 02/03/2019 until 02/03/2019 [facility] Comment on above: Once for 1 Occurrenc es starting 02/03/2019 until 02/03/2019 CT 3D RECONSTRUCTION [facility] End: 03-15-2025 Cyanocobalamin vitamin b-12 Vitamin B12 Lab Routine 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 Chronic fatigue 1 Occurrences starting 03/15/2024 until 03/15/2025 [facility] [employer] [facility] Comment on above: 1 Occurrences starti ng 03/15/2024 until 03/15/2025 Cytology Cervical or vaginal smear or scraping study Pap Smear Pathology and Cytology Routine Well woman exam with routine gynecological exam Ordered: 07/31/2024 [facility] Work Phone: Comment on above: Ordered: 07/31/2024 End: 03-15-2025 Ferritin [Mass/volume] in Serum or Plasma Ferritin Lab Routine 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 Chronic fatigue 1 Occurrences starting 03/15/2024 until 03/15/2025 [facility] Comment on above: 1 Occurrences starti ng 03/15/2024 until 03/15/2025 Hemoglobin A1c/Hemoglobin.total in Blood Hemoglobin A1c Lab Routine Missed menses , unspecified gestational age Ordered: 05/29/2024 [facility] Comment on above: Ordered: 05/29/2024 Hepatitis B virus surface Ag [Presence] in Serum or Plasma by Immunoassay Hepatitis B surface antigen Lab Routine Missed menses , unspecified gestational age Ordered: 05/29/2024 [facility] Comment on above: Ordered: 05/29/2024 Hepatitis C virus Ab [Presence] in Serum or Plasma by Immunoassay Hepatitis C antibody Lab Routine Missed menses , unspecified gestational age Ordered: 05/29/2024 [facility] Comment on above: Ordered: 05/29/2024 HHN Treatment HHN Treatment Re spiratory Care Routine As Needed until discontinued starting 02/02/2019 [facility] Comment on above: As Needed until disc ontinued starting 02/02/2019 HIV-1/HIV-2 antigen/antibody combination immunoassay HIV-1 and HIV-2 antibodies Lab Routine Missed menses , unspecified gestational age Ordered: 05/29/2024 [facility] Comment on above: Ordered: 05/29/2024 Initiate Oxygen Ther apy Protocol Initiate Oxygen Therapy Protocol Respiratory Care Routine Daily until discontinued starting 02/01/2019 [facility] Comment on above: Daily until disconti nued starting 02/01/2019 End: 03-15-2025 Iron and TIBC Iron and TIBC Lab Routine 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 case with above named attending. Giulia Emerson DO Watch Mechanic Resident PGY-4 02/02/2019, 5:23 AM * Giulia [...] - Respiratory Therapy consulted Katia Greenberg DO Watch Mechanic Resident 02/02/2019, 2:00 AM Resident Physician Statement I have personally seen the patient. I agree with the assessment, plan and orders as documented. I have made changes to the above note as needed. I have discussed the case with above named attending. Giulia Emerson DO Watch Mechanic Resident PGY-4 02/02/2019, 2:30 AM * Giulia [...] Continue Magnesium Sulfate Treatment Katia Greenberg DO Watch Mechanic Resident 02/01/2019, 9:39 PM Resident Physician Statement I have personally seen the patient. I agree with the assessment, plan and orders as documented. I have made changes to the above note as needed. I have discussed the case with above named attending. 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 Advance Directives and Living Will Power of Bulking Machine Operator Latest Code Status on File Code Status [...] To Contact Diagnoses Sinus pressure Ally Craig, COMPUTATIONAL SCIENCES PROFESSOR-BIOLOGY LECTURER [address] [place] [address] Referral ID Status Reason Start Date Expiration Date V isits Requested Visits Authorized [id number] Pending Review 1 1 Specialty Diagnoses / Procedures Referred By Violeta dalal Referred To Contact Radiology Diagnoses Tear of right acetabular labrum, initial encounter S73.191A (ICD-10-CM) - Tear of right acetabular labrum, initial encounter Procedures IR INJ ARTHROGRAM HIP RIGHT HI INJECTION HIP ARTHROGRAM 47234 - HI INJECTION HIP ARTHROGRAM Mary Mazariegos A, DO [address] [address] [address] [place] [address] Referral ID Status Reason Start Date Expiration Date Visits Re quested Visits Authorized [id number] Closed 06/02/2022 05/07/2023 1 1 Chief Complaint and Reason for Visit Chief Complaint [facility] pre emp Chief Complaint Admit Date Right [...] collision), initial encounter Donn Benavidez MD [address] [facility], [address] [place] [address] [facility] Specialty Diagnoses / Procedures Referred By Contac t Referred To Contact Radiology Diagnoses Tear of right acetabular labrum, initial encounter S73.191A (ICD-10-CM) - Tear of right acetabular labrum, initial encounter Procedures IR INJ ARTHROGRAM HIP RIGHT HI INJECTION HIP ARTHROGRAM 24552 - HI INJECTION HIP ARTHROGRAM Abner Mary A, DO [address] [address] Referral ID Status Reason Start Date Expiration Date Visits Re quested Visits Authorized [id number] Closed 06/02/2022 05/07/2023 1 1 Specialty Diagnoses / Procedures Referred By Contac t Referred To Contact Radiology Diagnoses Tear of right acetabular labrum, initial encounter S73.191A (ICD-10-CM) - Tear of right acetabular labrum, initial encounter Procedures MRI HIP RIGHT W CONTRAST HI MRI, JOINT OF LEG W/CONTRAST [id number] - HI MRI, JOINT OF LEG W/CONTRAST Abner Mary A, DO [address] [address] Referral ID Status Reason Start Date Expiration Date V isits Requested Visits Authorized [id number] Pending Review 06/02/2022 05/07/2023 1 1 Reason Comments Amenorrhea Reason Comments Med Refill Reason Onset Date Comments Med Refill 07/23/2024 Reason Comments Routine Visit Reason Comments Er Follow-up Reason Comments Urinary Tract Infection Reason Comments New Patient Specialty Diagnoses / Procedures Referred By Contact Referred To Contact Plastic & Reconstructive Surgery Diagnoses History of sleeve gastrectomy Localized adiposity Lauren Scott MD [address] [place] [address] Ppr[facility] Plastic [facility] [address] [place] [address] Referral ID Status Reason Start Date Expiration Date Visits Requested Visits Authorized [id number] Pending Review Specialty Services Required 12/28/2022 12/28/2023 1 1 Reason Comments weight management Reason Comments Hx SVT Hx Sleeve Gastrectomy Hx Preeclampsia Reason Comments New Patient ep ryzdhjk-qyx-myqwn n khurshid ref-was kpt pt-kpt did ablation on pt-scheduledw/pt Specialty Diagnoses / Procedures Referred By Contgrace t Referred To Contact Cardiology Diagnoses Hx of supraventricular tachycardia Jordan Urbina MD [address], [address] [place] [address] Phone: tel: fax: [facility] [address] [place] [address] Phone: tel: fax: Referral ID Status Reason Start Date Expiration Date Visits Requested Visits Authorized [id number] Pending Review Specialty Services Required 08/24/2024 08/24/2025 1 1 INFORMATION SOURCE (unrecogn ized section and content) DATE CREATED AUTHOR 02/23/2019 [facility] DATE CREATED AUTHOR AUTHOR'S ORGANIZ ATION 11/01/2020 [facility] DATE CREATED AUTHOR AUTHOR'S ORGANIZ ATION 02/21/2021 [facility] DATE CREATED AUTHOR AUTHOR'S ORGANIZ ATION 06/12/2022 [facility] DATE CREATED AUTHOR AUTHOR'S ORGANIZ ATION 02/12/2024 [facility] DATE CREATED AUTHOR AUTHOR'S ORGANIZ ATION 03/17/2024 [facility] DATE CREATED AUTHOR AUTHOR'S ORGANIZ ATION 10/28/2024 [facility] EPIC DATE CREATED AUTHOR AUTHOR'S ORGANIZ ATION 10/29/2024 [facility] Care Teams (unrecognized sec tion and content) Dredge Deckhand Relationship Specialty Start Date End Date Ally Craig, COMPUTATIONAL SCIENCES PROFESSOR - BIOLOGY LECTURER [address] [place] [address] PCP - General Nurse Practitioner 01/31/19 Dredge Deckhand Relationship Specialty Start Date End Date Ally Craig APRN - BIOLOGY LECTURER [address] [place] [address] PCP - General Nurse Practitioner 01/31/19 Team Status: Active Member Role Status Dates NON STAFF Primary Care Provider Active Team Status: Inactive Member Role Status Dates NON STAFF Primary Care Provider Active Start: December 08, 2023 End: December 08, 2023 Janna Escalera APRN Attending Provider Active Start: December 08, 2023 End: December 08, 2023 Dredge Deckhand Relationship Specialty Start Date End Date Ally Craig APRN-BIOLOGY LECTURER [address] [place] [address] PCP - General Family Medicine 04/12/18 Dredge Deckhand Relationship Specialty Start Date End Date Ally Craig APRN-BIOLOGY LECTURER [address], [place] [address] PCP - General Family Medicine 04/12/18 Dredge Deckhand Relationship Specialty Start Date End Date Ally Craig APRN-CNP [address], [address] [place] [facility] [place] [address] PCP - General Family Medicine 04/12/18 Dredge Deckhand Relationship Specialty Start Date End Date Ally Craig APRN-CNP [address], [address] [facility] [address] PCP - General Family Medicine 04/12/18 Dredge Deckhand Relationship Specialty Start Date End Date Ally Craig APRN-CNP [address] [place] [address] PCP - General Family Medicine 04/12/18 Dredge Deckhand Relationship Specialty Start Date End Date Al[facility] [place] [facility] [address] [place] [address] PCP - General Family Medicine 04/12/18 Dredge Deckhand Relationship Specialty Start Date End Date Ally Craig [facility] [place] [facility] [address], [place] [address] PCP - General Family Medicine 04/12/18 Dredge Deckhand Relationship Specialty Start Date End Date Ally Craig [facility] [place] [facility] [address], [place] [address] PCP - General Family Medicine 04/12/18 Dredge Deckhand Relationship Specialty Start Date End Date Ally Craig [facility] [place] [facility] [address], [place] [address] PCP - General Family Medicine 04/12/18 Dredge Deckhand Relationship Specialty Start Date End Date Ally Craig [facility] [place] [facility] [address], [place] [address] PCP - General Family Medicine 04/12/18 Dredge Deckhand Relationship Specialty Start Date End Date Ally Craig [facility] [place] [facility] [address], [place] [address] PCP - General Family Medicine 04/12/18 Dredge Deckhand Relationship Specialty Start Date End Date Ally Craig APRN-CNP [address], [place] [address] PCP - General Family Medicine 04/12/18 Dredge Deckhand Relationship Specialty Start Date End Date Ally Craig [facility] [place] [facility] [address], [address] [place] [facility] [address] PCP - General Family Medicine 04/12/18 Dredge Deckhand Relationship Specialty Start Date End Date Ally Craig APRN-BIOLOGY LECTURER [address], [address] [facility] [address] PCP - General Family Medicine 04/12/18 Dredge Deckhand Relationship Specialty Start Date End Date Ally Craig [facility] [place] [facility] [address], [address] [facility] [address] PCP - General Family Medicine 04/12/18 Dredge Deckhand Relationship Specialty Start Date End Date Ally Craig APRN-[facility] [address], [address] [facility] [place] [address] PCP - General Family Medicine 04/12/18 Team [...] BE BASED ON THE PRIMARY CLINICAL RECORDS. [facility] [employer] [facility] provides no warranty or guarantee of the accuracy or completeness of information in this document.
[2024-11-03 15:19] VITALS: BP 122/73; PULSE 85
== END 2024-11-03 15:53 | disposition home or self-care (01) ==
LOC: US 14:50 → FBC 14:51
PROVIDERS: PCP Nurse Practitioner; Visit Provider Obstetrics & Gynecology
DX: O26.893 Other specified pregnancy related conditions, third trimester (principal); Z3A.34 34 weeks gestation of pregnancy; Z90.3 Acquired absence of stomach [part of]
CPT/HCPCS: 76818

== ENCOUNTER 2024-11-07 16:51 | Outpatient (OUT) | payer OTHER, SELFPAY ==
--- OUTSIDE RECORDS SUMMARY | 2023-09-30 06:30 | XMS_ITS ---
Author Organization [facility] vices Address [address], [place] [id number] Care Team Providers Care Webfed Offset Press Operator Name Role Phone Dionne Grande Unavailable [phone] REASON FOR VISIT 2 week f/u Medications [...] Problem Status W/U Status Risk Notes Problem [id number] Anxiety with depression (F41.8) Active confirmed Encounters Encounter Location Date Provider Diagnosis Main [address] [place], [place] [id number] 09/30/2023 Dionne Grande Bipolar disorder F31 .9 ; [facility] current use of antipsychotic medication Z79.899 and Anxiety with depression F41.8 Assessments Encounter Date Diagnosis (ICD Code) Assessment Notes Treatment Notes Treatment Clinical Notes Section Notes 09/30/2023 Bipolar disorder (ICD-10 - F31.9) needs improvement Schedule wellness with PCP. Obtain ordered labs. 09/30/2023 [facility] current use of antipsychotic medication (ICD-10 - [...] 2 tablets by mouth i n morning Next Appt Details Provider Name:Kelli Hyde , 11/20/2024 08:00:00 AM, [address] [place], [place], [id number], Provider Name:Kelli Hyde , 11/22/2024 08:30:00 AM, [address] [place], [place], [id number], Progress Notes * Jana RAMANDOB:1995 ( 29 yo F)Acc No.[id number]:09/30/2023 Patient: Jana VEGA Provider: JOANA CentenoHNP-BC :1995 A ge:28 Y S ex:Female Date:09/30/2023 Address:[address] [place], [place] [id number] Subjective: * Chief Complaints: * 1 . [...] Problems: * Billing Information: * Visit Code: 76265 Office Visit Est 10 -19 minutes. * Procedure Codes: Care Plan Details* * Electronic signature of TANYA Peters on 11/07/2024 at 12:45 PM EDT Sign off status: Pending * Provider: TANYA Centeno Date: 0 09/30/2023 Generated for Jc eason/William/Rony on: 0 11/07/2024 12:45 PM EDT
--- OUTSIDE RECORDS SUMMARY | 2024-01-07 05:00 | XMS_ITS ---
Author Organization [facility] Address [address] [place] [address] Care Team Providers Care Jar Capper Name Role Phone Pascale Mcmahon Unavailable [phone] REASON FOR VISIT LUMBAR PAIN Encounters Encounter Location Date Provider Diagnosis [facility] Office [address] [place] [address] [place] [address] 01/07/[address] [facility]uelas Lumbar back pain M54.50 Assessments Encounter Date Diagnosis (ICD Code) Assessment Notes Treatment Notes Treatment Clinical Notes Section Notes 01/07/2024 Lumbar back pain (ICD-10 - M54.50) Plan Of Treatment Pending Test Test Name Order Date Lumbar spine 2v flex and ext - 49279 Progress Notes * RE CULLENCA CDOB:1995 (29 yo F)Acc No.[id number]:01/07/2024 Patient: MADDIE VEGA Provider: Edwardo García MD, PhD :1995 A ge:28 Y S ex:Female Date:01/07/2024 Address:[address] [place], [place] [id number] Subjective: * Chief Complaints: * 1 . LUMBAR PAIN. * Medical History: Objective: * Vitals: Assessment: * Assessment: 1. L umbar back pain - M54.50 (Primary) Plan: * Treatment: Forms: * Images: * Electronic signature of Selv on [facility] Jessenia MD, PHD on 11/07/2024 at 04:53 PM EDT Sign off status: Pending * Provider: Edwardo García MD, PhD Date: 01/07/2024 Generated for Printi ng/William/Lauraitting on: 0 11/07/2024 04:53 PM EDT
--- OUTSIDE RECORDS SUMMARY | 2024-11-07 16:53 | XMS_ITS | Patient Health Record ---
Author Organization [facility] Address [address] [place] [address] Care Team Providers Care Bath Design Sales Consultant Name Role Phone Pascale Mcmahon Unavailable [phone] Reason For Referral No Information Plan Of Treatment No Information Insurance Providers Payer Name Payer Address Payer Phone Subscriber Number Group Number Insured Name Patient Relationship to Insured Coverage Start Date Coverage End Date Medicaid [employer] [place] [address] [place] [address] [phone] [id number] MADDIE ORNELAS Self - patient is the insured
[2024-11-07 16:57] VITALS: BP 123/71; PULSE 98
--- OUTSIDE RECORDS SUMMARY | 2024-11-07 16:58 | XMS_ITS | CCD ---
Author Organization [facility] Care Team Providers Care Block Press Operator Name Role Phone Ally Craig Primary Care Provider TERRI AUGUSTIN Admitting Unavailable TERRI AUGUSTIN Attending Unavailable ALLY CRAIG Primary Care Unavailable VIDYA FERRER Consulting Unavailable ALANA, DR HILLIARD Attending Unavailable ALNAA, DR HILLIARD Consulting Unavailable ALANA, DR HILLIARD Admitting Unavailable Jeane Canela Unavailable Kiara CRAIG - Ally MONTES DE OCA Primary Care Pro vider ALLY CRAIG Primary Care Unavailable MARY MAZARIEGOS Referring Unavailable ALLY CRAIG Primary Care Unavailable MARY MAZARIEGOS Referring Unavailable NON STAFF Primary Care Provider Unavailabl e RAFA Escalera Attending Provider NON STAFF Primary Care Unavailable Janna Escalera Attending Unavailable Janna Escalera Admitting Unavailable RADHA GAN Attending Unavailable ALLY CRAIG Referring Unavailable ALLY CRAIG Primary Care Unavailable DOC GUEVARA Attending Unavailable LAUREN SCOTT Referring Unavailable ALLY CRAIG Primary Care Unavailable ALLY CRAIG Attending Unavailable ALLY CRAIG Referring Unavailable ALLY CRAIG Primary Care Unavailable RADHA GAN Attending Unavailable ALLY CRAIG Referring Unavailable ALYL CRAIG Primary Care Unavailable ALLY CRAIG Attending Unavailable ALLY CRAIG Referring Unavailable ALLY CRAIG Primary Care Unavailable Unavailable Primary Care Provider Unavailabl e Kiara COMPENSATION CONSULTANT-INFANTRYMAN, Ally A Primary Care Provi collin Kiara COMPENSATION CONSULTANT-INFANTRYMAN, Ally A Primary Care Provi collin ZORAIDA TRAVIS Attending Unavailable ANGY, ZORAIDA Attending Unavailable ALANA, CEDRIC Attending Unavailable CAREY PENA Attending Unavailable ALANA, CEDRIC Attending Unavailable ALANA, CEDRIC Attending Unavailable RADHA GAN Referring Unavailable KIARA, ALLY A Primary Care Unavailable KIARA, ALLY A Referring Unavailable KIARA, ALLY A Primary Care Unavailable KIARA, ALLY A Primary Care Unavailable ALANA, CEDRIC R Referring Unavailable CIARA, JORDAN Attending Unavailable KIARA, ALLY A Primary Care Unavailable ALANA, CEDRIC R Referring Unavailable KIARA, ALLY A Primary Care Unavailable ALANA, CEDRIC R Referring Unavailable KIARA, ALLY A Primary Care Unavailable KIARA, ALLY A Referring Unavailable LIA, TAVERA YOSELIN Attending Unavailable KIARA, ALLY A Primary Care Unavailable LIA, TAVERA YOSELIN Referring Unavailable CIARA, JORDAN Attending Unavailable KIARA, ALLY A Primary Care Unavailable ALANA, CEDRIC R Referring Unavailable KIARA, ALLY A Primary Care Unavailable ALANA, CEDRIC R Referring Unavailable CIARA, JORDAN Attending Unavailable KIARA, ALLY A Primary Care Unavailable ALANA, CEDRIC R Referring Unavailable Allergies Allergy Classification Reported Allergen(s) Allergy Type Date of Onset Reaction(s) Facility strawberry allergenic extract (1 source) strawberry allergenic extract Drug Allergy [facility] Repository (11 sources) strawberry allergenic extract; Translations: [STRAWBERRY EXTRACT] Drug Allergy 9 Anaphylaxis [place], [place] (13 sources) [place] Propensity to adverse reactions 9 Anaphylaxis [facility] Medications Current Medications Medication Drug Class(es) Dates Sig (Normalized) Sig (Original) acetaminophen 500 mg oral tablet (1 source) Start: 02-01-2019 acetaminophen (TYLENOL) tablet 1,000 mg [id number] 200 actuat albuterol 0.09 mg/actuat metered dose [...] Discontinued 500 MG PO Every 12 hours 20 October 20, 2023 12:00am October 22, 2024 10:01am Start: 03-19-2022 take 1 tablet by hilary th every twelve hours Amoxicillin 875 MG 1 tablet Orally Twice a day for 7 days Feb, Active azelastine hydrochloride 0.137 mg/actuat metered dose nasal spray (13 sources) Histamine-1 Receptor Antagonist Start: 03-15-2024 take [...] by mouth every week vitamin D (ERGOCALCIFEROL) 60303 units CAPS capsule Take 1 capsule by [...] succinate 25 mg extended release oral tablet (10 sources) beta-Adrenergic Henny Start: 10-22-2024 End: 10-22-2024 [...] 5 days. 10 capsule 01/25/2024 01/30/2024 Active omeprazole 20 mg delayed release oral tablet (1 source) Proton Pump Inhibitor Start: 11-06-2024 take 1 tablet by mouth in the morning omeprazole (PriLOSEC OTC) 20 mg EC tablet Indications: History of sleeve gastrectomy Take 1 tablet (20 mg total) by mouth in the morning. 60 tablet 2 11/06/2024 Active 2 ml ondansetron 2 mg/ml injection [...] 19/iron ps,heme/folic/dha ( MV & MIN ORAL) (7 sources) take 1 tablet by mouth once [...] injectable solution (20 sources) Vitamin B12 Start: 05-04-2024 End: 12-03-2024 Cyanocobalamin 1000 MCG/ML kit Indications: H/O gastric sleeve Inject 1 mL as directed every 30 (thirty) days 1 kit 11 11/03/2024 12/03/2024 Active Start: 10-20-2023 Cyanocobalamin (Vitamin B-12) Active 1000 MCG IM October 20, 2023 12:00am Start: 03-30-2023 End: 05-04-2024 cyanocobalamin (VITAMIN B-12 ) 1,000 mcg/mL injection Indications: History of sleeve gastrectomy , Postsurgical malabsorption , Malnutrition following gastrointestinal surgery , Vitamin B12 deficiency Inject 1 mL (1,000 mcg total) into the appropriate muscle every 30 (thirty) days. 6 mL 03/30/2023 Active take 1 dose by mouth every 30 [...] 1700, Last dose on Wed02/09/19 at 0100 cephalexin 500 mg oral capsule [...] B12 Start: 02-09-2019 End: 02-09-2019 iron polysaccharide rfdyazy-R77-lhxpe acid (FERREX-FORTE) 150-0.025-1 MG capsule 1 mg [...] transmissible disorder] 07-31-2024 Episodic Malaise and fatigue (16 sources) Chronic fatigue, unspecified; Translations: [Fatigue] Onset: [...] group vitamins] 03-20-2024 Episodic Other circulatory disease (20 sources) History of supraventricular tachycardia; Translations: [Personal history of other diseases of the circulatory system] Onset: 10-01-2020 10-01-2020 Episodic Other circulatory disease (1 source) Personal [...] 03-15-2024 03-15-2024 Episodic Other lower respiratory disease (14 sources) Cough; Translations: [Acute cough] Onset: 04-26-2023 [...] Chronic Other nutritional; endocrine; and metabolic disorders (14 sources) Weight increased; Translations: [Abnormal weight gain] [...] Facility US OB BPP W NON-STRESS on 11-03-2024 [place] [address] Ultrasound Report Signed Patient: MADDIE RAMAN MR#: [id number] : 1995 Acct:[id number] Age/Sex: 29 / F ADM Date: 11/03/24 Loc: US Attending Dr: Cedric Warner D.O. Ordering Physician: Cedric Warner D.O. Date of Service: 11/03/24 Procedure(s): US OB BPP w non-stress Accession Number(s): [id number] cc: Cedric Warner D.O.; Ally Craig NP [place] [id number] Patient Name: MADDIE RAMAN MRN: [facility]:[id number] date: 1995 Sex: F Assigned Patient Location: [facility] Current Patient Location: Accession/Order Number: [id number] Exam Date: 11/03/2024 16:12 Report Date: 11/03/2024 16:13 At the request of: CEDRIC WARNER DO Procedure: US OB BPP w non-stress US OB BPP w non-stress 11/03/2024 3:19 PM SIGNS AND SYMPTOMS: 12/14/2024 H/O GASTRIC SLEEVE Z90.3 PROTOCOL: Grayscale and color sonographic images of the pelvis COMPARISON: None FINDINGS: A heart rate is identified at 149 bpm. The amniotic fluid index is 12.8 cm. Biophysical profile: breathing movements: 2/2 Gross body movements: 2/2 tone: 2/2 Amniotic fluid volume: 2/2 US/US OB BPP w non-stress IMPRESSION: Biophysical profile score: 8/8 The amniotic fluid index is 12.8 cm. Impression dictated by: Cristo Bland M.D. 11/03/2024 4:13 PM Dictation Location: [facility] [employer] [facility] Electronically authenticated by: [id number] Y Date: 11/03/2024 16:13 Dictated By: Cristo Bland M.D. Signed By: 11/03/241615 DD/ 12 TD/TT: Med Surg Nurse: [facility] Radiology, Radiologist, MD - 11/03/2024 [place] [address] Ultrasound Report Signed Patient: MADDIE RAMAN MR#: [id number] : 1995 Acct:[id number] Age/Sex: 29 / F ADM Date: 11/03/24 Loc: US Attending Dr: Cedric Warner D.O. Ordering Physician: Cedric Warner D.O. Date of Service: 11/03/24 Procedure(s): US OB BPP w non-stress Accession Number(s): [id number] cc: Cedric Warner D.O.; Ally Craig NP The [address] [address] Patient Name: MADIDE RAMAN MRN: [facility]:[id number] date: 1995 Sex: F Assigned Patient Location: [facility] Current Patient Location: Accession/Order Number: [id number] Exam Date: 11/03/2024 16:12 Report Date: 11/03/2024 16:13 At the request of: CEDRIC WARNER DO Procedure: US OB BPP w non-stress US OB BPP w non-stress 11/03/2024 3:19 PM SIGNS AND SYMPTOMS: 12/14/2024 H/O GASTRIC SLEEVE Z90.3 PROTOCOL: Grayscale and color sonographic images of the pelvis COMPARISON: None FINDINGS: A heart rate is identified at 149 bpm. The amniotic fluid index is 12.8 cm. Biophysical profile: breathing movements: 2/2 Gross body movements: 2/2 tone: 2/2 Amniotic fluid volume: 2/2 US/US OB BPP w non-stress IMPRESSION: Biophysical profile score: 8/8 The amniotic fluid index is 12.8 cm. Impression dictated by: Cristo Bland M.D. 11/03/2024 4:13 PM Dictation Location: [facility] Electronically authenticated by: [id number] Y Date: 11/03/2024 16:13 Dictated By: Cristo Bland M.D. Signed By: 11/03/241615 DD/ 12 TD/TT: Med Surg Nurse: [facility] [employer] Radiology Study observation (narrative) [facility] US OB BPP W NON-STRESS Ordered By: Radiologist Radiology on 11-03-2024 [facility] [employer] Work Phone: US OB BPP W NON-STRESS on 10-30-2024 [place] [address] Ultrasound Report Signed Patient: MADDIE RAMAN MR#: [id number] : 1995 Acct:[id number] Age/Sex: 29 / F ADM Date: 10/27/24 Loc: US Attending Dr: Cedric Warner D.O. Ordering Physician: Cedric Warner D.O. Date of Service: 10/27/24 Procedure(s): US OB BPP w non-stress Accession Number(s): [id number] cc: Cedric Warner D.O.; Ally Craig NP [place] [phone] Patient Name: MADDIE RAMAN MRN: [facility]:[id number] date: 1995 Sex: F Assigned Patient Location: Current Patient Location: Accession/Order Number: [id number] Exam Date: 10/30/2024 09:26 Report Date: 10/30/2024 09:28 At the request of: CEDRIC WARNER DO Procedure: US OB BPP w non-stress BIOPHYSICAL PROFILE: CLINICAL INFORMATION: HISTORY OF GASTRIC SLEEVE Z 90.3 COMPARISON: 08/05/2024 There is a single live intrauterine gestation in cephalic presentation. The reported gestational age is 33 weeks 1 day. The heart rate [id number] beats per minute. FINDINGS: TONE: 1 or [...] NORMAL BIOPHYSICAL PROFILE. Impression dictated by: Smita eJnsen M.D. 10/30/2024 9:28 AM Dictation Location: [place] [address] Electronically authenticated by: [id number] Y Date: 10/30/2024 09:28 Dictated By: Smita Jensen M.D. Signed By: 10/30/24930 DD/ 7 TD/TT: Med Surg Nurse: [facility] Radiology, Radiologist, - 10/30/2024 [place] [address] Ultrasound Report Signed Patient: MADDIE RAMAN MR#: [id number] : 1995 Acct:[id number] Age/Sex: 29 / F ADM Date: 10/27/24 Loc: US Attending Dr: Cedric Warner D.O. Ordering Physician: Cedric Warner D.O. Date of Service: 10/27/24 Procedure(s): US OB BPP w non-stress Accession Number(s): [id number] cc: Cedric Warner D.O.; Ally Craig NP [place] [address] Patient Name: MADDIE RAMAN MRN: [facility]:[id number] date: 1995 Sex: F Assigned Patient Location: US Current Patient Location: Accession/Order Number: [id number] Exam Date: 10/30/2024 09:26 Report Date: 10/30/2024 09:28 At the request of: CEDRIC WARNER DO Procedure: US OB BPP w non-stress BIOPHYSICAL PROFILE: CLINICAL INFORMATION: HISTORY OF GASTRIC SLEEVE Z 90.3 COMPARISON: 08/05/2024 There is a single live intrauterine gestation in cephalic presentation. The reported gestational age is 33 weeks 1 day. The heart rate [id number] beats per minute. FINDINGS: TONE: 1 or [...] Jensen M.D. 10/30/2024 9:28 AM Dictation Location: [place] [address] Electronically authenticated by: [id number] Y Date: 10/30/2024 09:28 Dictated By: Smita Jensen M.D. Signed By: 10/30/2431 DD/ 7 TD/TT: Med Surg Nurse: [facility] Radiology Study observation (narrative) [facility] OB BPP W NON-STRESS Ordered By: Radiologist Radiology on 10-30-2024 [facility] Work Phone: Urinalysis macro (dipstick) panel (U)on 10-25-2024 Bilirubin, UA Negative Negative - 4(70) +++ mg/dL [facility] Blood, UA Negative Negative - 50 Miguel Angel/mcL [facility] Clarity, UA Clear [facility] Color, UA Yellow [facility] Glucose, UA Negative Negative - 1999(110) ++++ mg/dL [facility] Interpretation and review of laboratory results Normal [facility] Ketones, UA Negative Negative - 160(16) ++++ mg/dL [facility] Leukocytes, UA Negative Negative - 500+++ Eleonora/mcL [facility] Nitrite, UA Negative Negative - Positive [facility] pH, UA 6.5 5 - 9 [facility] Protein, UA Negative Negative - 1999(20) ++++ mg/dL [facility] Spec Grav, UA 1.015 1 - 1.03 [facility] Urobilinogen, UA 0.2 0.2 - 12 mg/dL [facility] Urinalysis macro (dipstick) panel (U)on 10-11-2024 Bilirubin, UA Negative Negative - 4(70) +++ mg/dL [facility] Blood, UA Negative Negative - 50 Miguel Angel/mcL [facility] Clarity, UA Clear [facility] Color, UA Yellow [facility] Glucose, UA Negative Negative - 1999(110) ++++ mg/dL [facility] Interpretation and review of laboratory results Normal [facility] Ketones, UA Negative Negative - 160(16) ++++ mg/dL [facility] Leukocytes, UA Negative Negative - 500+++ Eleonora/mcL [facility] Nitrite, UA Negative Negative - Positive [facility] pH, UA 7 5 - 9 [facility] Protein, UA Trace Negative - 1999(20) ++++ mg/dL [facility] Spec Grav, UA 1.025 1 - 1.03 [facility] Urobilinogen, UA 0.2 0.2 - 12 mg/dL [facility] POCT EKGon 10-05-2024 [facility] Urinalysis macro (dipstick) panel (U)on 09-26-2024 Bilirubin, UA Negative Negative - 4(70) +++ mg/dL [facility] Blood, UA Negative Negative - 50 Miguel Angel/mcL [facility] Clarity, UA Clear [facility] Color, UA Tiffany [facility] Glucose, UA Negative Negative - 2000(110) ++++ mg/dL [facility] Interpretation and review of laboratory results Abnormal [facility] Ketones, UA Negative Negative - 160(16) ++++ mg/dL [facility] Leukocytes, UA Negative Negative - 500+++ Eleonora/mcL [facility] Nitrite, UA Negative Negative - Positive [facility] pH, UA 6 5 - 9 [facility] Protein, UA Positive Negative - 2000(20) ++++ mg/dL [facility] Comment on above: 30 Spec Grav, UA 1.03 1 - 1.03 [facility] Urobilinogen, UA 0.2 0.2 - 12 mg/dL [facility] No Panel InformationOrdered By: Radiologist Radiology on 08-05-2024 [facility] Work Phone: No Panel Informationon 08-05 Radiology Study observation (narrative) [facility] US OB ANATOMYon 08-05-2024 [place] [id number] Ultrasound Report Signed Patient: MADDIE RAMAN MR#: [id number] : 1995 Acct:[id number] Age/Sex: 29 / F ADM Date: 08/05/24 Loc: US Attending Dr: Zoraida Travis Ordering Physician: Zoraida Travis Date of Service: 08/05/24 Procedure(s): US OB anatomy Accession Number(s): [id number] cc: Zoraida Travis; Ally Craig NP [address] [address] Patient Name: MADDIE RAMAN MRN: [id number] date: 1995 Sex: F Assigned Patient Location: US Current Patient Location: US Accession/Order Number: [id number] Exam Date: 08/05/2024 08:01 Report Date: 08/05/2024 [...] Signed By: 08/05/24 0858 DD/ 0855 TD/TT: Med Surg Nurse: [facility] Radiology, Radiologist, MD - 08/05/2024 [place] [address] Ultrasound Report Signed Patient: MADDIE RAMAN MR#: [id number] : 1995 Acct:[id number] Age/Sex: 29 / F ADM Date: 08/05/24 Loc: US Attending Dr: Zoraida Travis Ordering Physician: Zoraida Travis Date of Service: 08/05/24 Procedure(s): US OB anatomy Accession Number(s): [id number] cc: Zoraida Travis; Ally Craig NP [place] [address] Patient Name: MADDIE RAMAN MRN: [facility]:[id number] date: 1995 Sex: F Assigned Patient Location: US Current Patient Location: US Accession/Order Number: [id number] Exam Date: 08/05/2024 08:01 Report Date: 08/05/2024 [...] Mathew M.D. Signed By: 08/05/2458 DD/ TD/TT: Med Surg Nurse: [facility] US OB CERVICAL LENGTHon 07-22 [place] [address] Ultrasound Report Signed Patient: MADDIE RAMAN MR#: [id number] : 1995 Acct:[id number] Age/Sex: 29 / F ADM Date: 08/05/24 Loc: US Attending Dr: Zoraida Travis Ordering Physician: Zoraida Travis Date of Service: 08/05/24 Procedure(s): US OB cervical length Accession Number(s): [id number] cc: Zoraida Travis; Ally Craig NP [place] [phone] Patient Name: MADDIE RAMAN MRN: [id number] date: 1995 Sex: F Assigned Patient Location: US Current Patient Location: US Accession/Order Number: [id number] Exam Date: 08/05/2024 08:01 Report Date: 08/05/2024 [...] M.D. Signed By: 08/05/24 0858 DD/ TD/TT: Med Surg Nurse: [facility] Radiology, Radiologist, MD - 08/05/2024 The [place] [id number] Ultrasound Report Signed Patient: MADDIE RAMAN MR#: [id number] : 1995 Acct:[id number] Age/Sex: 29 / F ADM Date: 08/05/24 Loc: US Attending Dr: Zoraida Travis Ordering Physician: Zoraida Travis Date of Service: 08/05/24 Procedure(s): US OB cervical length Accession Number(s): [id number] cc: Zoraida Travis; Ally Craig NP The [address] [address] Patient Name: MADDIE RAMAN MRN: [facility]:[id number] date: 1995 Sex: F Assigned Patient Location: US Current Patient Location: US Accession/Order Number: [id number] Exam Date: 08/05/2024 08:01 Report Date: 08/05/2024 [...] Alejandrina Mathew M.D. Signed By: 08/05/2458 DD/ 4 TD/TT: Med Surg Nurse: MARIA FERNANDA Watson HPV,AGE GDLNon AGE GDLN ACOG TESTING Note . [facility] Comment on above: TESTS RESULT FLAG UN ITS REF RANGE LAB Clinician Provided Cytology Information Source.............Cervix Other.............. No. of containers..01 ThinPrep Vial Age Frank Yip... FLAG LEGEND: L-Low Normal,H-High Normal,LL-Alert Low,HH-Alert High <-Panic Low,>-Panic High,A-Abnormal,AA-Critical Abnormal Performed at: 01 =[address] [facility] [address] Otilia Marquis MD, IGP, RFX APTIMA HPV ASCU Note . [facility] Comment on above: TESTS RESULT FLAG UN ITS REF RANGE LAB DIAGNOSIS: 02 NEGATIVE FOR INTRAEPITHELIAL LESION OR MALIGNANCY. Specimen adequacy: 02 Satisfactory for evaluation. Endocervical and/or squamous metaplastic cells (endocervical component) are present. Performed by: 02 Maritza Bliss, Blast Furnace Tender ([facility]) . 02 Note: Note 03 The [...] <-Panic Low,>-Panic High,A-Abnormal,AA-Critical Abnormal Performed at: [address] [address] Kyra Flores PhD, [address] [address] Otilia Marquis MD, Performed at: [address] [id number] [employer] Lending Trader: Otilia Marquis MD, Phone: [phone] Performed at: [address] [id number] [employer] Trader: Kyra Flores PhD, Phone: [phone] SP[facility]ULA[facility] RECURRENT VAGINITIS (HTRX)on 08-02-2024 ATOPOBIUM VAGINAE 21.302 Abnormal [facility] Healthcare ATOPOBIUM VAGINAE Detected Abnormal [facility] BVAB 2,3 (BACTERIAL VAGINOSIS ASSOCIATED BACTERIA 2, 3); MOBILUNCUS SPP 18.822 Abnormal [facility] BVAB 2,3 (BACTERIAL VAGINOSIS ASSOCIATED BACTERIA 2, 3); MOBILUNCUS SPP Detected Abnormal [facility] Healthcare ROCÍO ALBICANS, PARAPSILOSIS, TROPICALIS 0 [facility] ROCÍO ALBICANS, PARAPSILOSIS, TROPICALIS Not detected [facility] ROCÍO GLABRATA 0 [facility] ROCÍO GLABRATA Not detected [facility] ROCÍO KRUSEI 0 [facility] ROCÍO KRUSEI Not detected [facility] CHLAMYDIA TRACHOMATIS 0 [facility] S [facility] CHLAMYDIA TRACHOMATIS Not detected N [facility] ERMB, C; MEFA 21.66 Abnormal [facility] ERMB, C; MEFA Detected Abnormal [facility] GARDNERELLA VAGINALIS 22.792 Abnormal [facility] GARDNERELLA VAGINALIS Detected Abnormal [facility] Interpretation and review of laboratory results Abnormal [facility] MEGASPHAERA (TYPES 1, 2) 17.674 Abnormal [facility] MEGASPHAERA (TYPES 1, 2) Detected Abnormal [facility] MYCOPLASMA GENITALIUM 0 [facility] MYCOPLASMA GENITALIUM Not detected N [facility] NEISSERIA GONORRHOEAE 0 [facility] NEISSERIA GONORRHOEAE Not detected N [facility] TRICHOMONAS VAGINALIS 0 [facility] TRICHOMONAS VAGINALIS Not detected N [facility] Urinalysis macro (dipstick) panel (U)on 07-31-2024 Bilirubin, UA Positive Negative - 4(70) +++ mg/dL [facility] Comment on above: small Blood, UA Negative Negative - 50 Miguel Angel/mcL [facility] Clarity, UA Cloudy [facility] Color, UA Dark Tiffany [facility] Glucose, UA Negative Negative - 2000(110) ++++ mg/dL [facility] Interpretation and review of laboratory results Abnormal [facility] Ketones, UA Negative Negative - 160(16) ++++ mg/dL [facility] Leukocytes, UA Negative Negative - 500+++ Eleonora/mcL [facility] Nitrite, UA Negative Negative - Positive [facility] pH, UA 6 5 - 9 [facility] Protein, UA Positive Negative - 2000(20) ++++ mg/dL [facility] Comment on above: 30 mg Spec Grav, UA 1.03 1 - 1.03 [facility] Urobilinogen, UA 1.0 0.2 - 12 mg/dL [facility] AFP, SERUM, OPEN SPINA BIFID Aon 07-07-2024 AFP MOM 0.99 . [facility] AFP VALUE 31.8 ng/mL . [facility] COMMENT: Comment . [facility] Comment on above: Yanni West , Ph.D., [facility] Director References: Available Upon Request. Multiples Of Median Cutoffs For AFP Elevations Alonso 2.5 Black 2.8 IDD 2.0 Twins 4.5 Abbreviation Definitions IDD - Insulin Dep Diabetes OSBR - Open Spina Bifida Risk For further inquiries contact [facility] at [phone]. This test was developed and its performance characteristics determined by [facility]. It has not been cleared or approved by the Food and Drug Administration. Performed at: [facility] [address] [place], [place] [id number] [employer] Trader: Sinai Arellano [facility], Phone: [phone] GEST. AGE ON COLLECTION DATE 17.9 . weeks [facility] GESTAT. AGE BASED ON Ultrasound . [facility] Comment on above: 15:0 on 06/15/2024 Recalculations are not recommended when gestational dating by LMP and ultrasound are within 10 days. INSULIN DEP DIABETES No . [facility] INTERPRETATION Comment . [facility] Comment on above: Interpretation: Scre en [...] Customer Services to discuss available options. [employer] recommends amniocentesis be offered to women age 35 and older. [age] [facility] MULTIPLE GESTATION No . [facility] [place] [address] [place] [address] . [facility] RACE . [facility] RESULTS Report . [facility] TEST RESULTS: Negative . [facility] WEIGHT 237 . lbs [facility] N [id number] N ULTRASOUND [id number] 0 15 N 1 Y 237 N N N N N White/ [facility] Urinalysis macro (dipstick) panel (U)on 06-15-2024 Bilirubin, UA Negative Negative - 4(70) +++ mg/dL [facility] Blood, UA Negative Negative - 50 Miguel Angel/mcL [facility] Clarity, UA Clear [facility] Color, UA Yellow [facility] Glucose, UA Negative Negative - 2000(110) ++++ mg/dL [facility] Interpretation and review of laboratory results Abnormal [facility] Ketones, UA Negative Negative - 160(16) ++++ mg/dL [facility] Leukocytes, UA Few Negative - 500+++ Eleonora/mcL [facility] Comment on above: small Nitrite, UA Negative Negative - Positive [facility] pH, UA 7 5 - 9 [facility] Protein, UA Negative Negative - 1999(20) ++++ mg/dL [facility] Spec Grav, UA 1.025 1 - 1.03 [facility] Urobilinogen, UA 2.0 0.2 - 12 mg/dL [facility] BOX TESTon 06-06-2024 BOX TEST SENT OUT [facility] BOX1 [facility] BOX2 06/06/24 [facility] HCG ( test) Ql (U)o n 05-29-2024 Interpretation and review of laboratory results Abnormal [facility] Preg Test, Ur Positive Negative [facility] Urinalysis macro (dipstick) panel (U)on 05-29-2024 Bilirubin, UA Negative Negative - 4(70) +++ mg/dL [facility] Blood, UA Negative Negative - 50 Miguel Angel/mcL [facility] Clarity, UA Clear [facility] Color, UA Yellow [facility] Glucose, UA Negative Negative - 1999(110) ++++ mg/dL [facility] Interpretation and review of laboratory results Abnormal [facility] Ketones, UA Positive Negative - 160(16) ++++ mg/dL [facility] Comment on above: trace Leukocytes, UA Negative Negative - 500+++ Eleonora/mcL [facility] Nitrite, UA Negative Negative - Positive [facility] pH, UA 6.5 5 - 9 [facility] Protein, UA Negative Negative - 1999(20) ++++ mg/dL [facility] Spec Grav, UA 1.02 1 - 1.03 [facility] Urobilinogen, UA 1.0 0.2 - 12 mg/dL [facility] PREG QUANT HCGon 024 HCG QUANTITATIVE 63738 mIU/mL [facility] Comment on above: 5-50 0.2-1 WEEK 50-500 1-2 WEEKS 100-5,000 2-3 WEEKS 500-10,000 3-4 WEEKS 1,000-50,000 4-5 WEEKS 10,000-100,000 5-6 WEEKS 15,000-200,000 6-8 WEEKS 10,000-100,000 2-3 MONTHS [facility] PREG QUANT HCGon 05-10- 024 HCG QUANTITATIVE 78924 mIU/mL [facility] Comment on above: 5-50 0.2-1 WEEK 50-500 1-2 WEEKS 100-5,000 2-3 WEEKS 500-10,000 3-4 WEEKS 1,000-50,000 4-5 WEEKS 10,000-100,000 5-6 WEEKS 15,000-200,000 6-8 WEEKS 10,000-100,000 2-3 MONTHS [facility] PREG QUANT HCGon 18-2 024 HCG QUANTITATIVE 73492 mIU/mL [facility] Comment on above: 5-50 0.2-1 WEEK 50-500 1-2 WEEKS 100-5,000 2-3 WEEKS 500-10,000 3-4 WEEKS 1,000-50,000 4-5 WEEKS 10,000-100,000 5-6 WEEKS 15,000-200,000 6-8 WEEKS 10,000-100,000 2-3 MONTHS [facility] CBC AND AUTO DIFFon 03-15-20 24 ABSOLUTE BASOPHIL 0.1 X10E9/L Normal 0.0-0.2 [facility] Comment on above: Performed By: #### 2 4331-1, CBCA, CMP, FEPR, 2275-09, 2132-02, THYR #### [facility] ([id number]) [address] [place] [address] ABSOLUTE NEUTROPHIL 3.1 X10E9/L Normal 1.5-6.6 [facility] Comment on above: Performed By: #### 2 4331-1, CBCA, CMP, FEPR, 2275-09, 2132-02, THYR #### [facility] ([id number]) [address], [address] [place] [address] Basophils/100 WBC (Bld) 1.2 % Normal [facility] Comment on above: Performed By: #### 2 4331-1, CBCA, CMP, FEPR, 2275-09, 2132-02, THYR #### [facility] ([id number]) [address], [address] [place] [address] Eosinophils (Bld) [#/Vol] 0.4 10*3/uL Normal 0.0-0.4 [facility] Comment on above: Performed By: #### 2 4331-1, CBCA, CMP, FEPR, 2275-09, 2132-02, THYR #### [facility] ([id number]) [address], [address] [place] [address] Eosinophils/100 WBC (Bld) 6.7 % Normal [facility] Comment on above: Performed By: #### 2 4331-1, CBCA, CMP, FEPR, 2275-09, 2132-02, THYR #### [facility] ([id number]) [address], [facility] [address] [place] [address] Erythrocyte distribution width (RBC) [Ratio] 12.8 % Normal 11.5-15.0 [facility] Comment on above: Performed By: #### 2 4331-1, CBCA, CMP, FEPR, 2275-09, 2132-02, THYR #### [facility] ([id number]) [address], [facility] [address] [place] [address] Hematocrit (Bld) [Volume fraction] 36.5 % Normal 35-47 [facility] Comment on above: Performed By: #### 2 4331-1, CBCA, CMP, FEPR, 2275-09, 2132-02, THYR #### [facility] ([id number]) [address] [address] [place] [address] Hemoglobin (Bld) [Mass/Vol] 12.9 g/dL Normal 11.7-15.5 [facility] Comment on above: Performed By: #### 2 4331-1, CBCA, CMP, FEPR, 2275-09, 2132-02, THYR #### [facility] ([id number]) [address], [facility] [address] [place] [address] Lymphocytes (Bld) [#/Vol] 1.3 10*3/uL Normal 1.0-3.5 [facility] Comment on above: Performed By: #### 2 4331-1, CBCA, CMP, FEPR, 2275-09, 2132-02, THYR #### [facility] ([id number]) [address], [facility] [address] [place] [address] Lymphocytes/100 WBC (Bld) 25.0 % Normal [facility] Comment on above: Performed By: #### 2 4331-1, CBCA, CMP, FEPR, 2275-09, 2132-02, THYR #### [facility] ([id number]) [address] [address] MCH (RBC) [Entitic mass] 31.2 pg Normal 27-34 [facility] Comment on above: Performed By: #### 2 4331-1, CBCA, CMP, FEPR, 2275-09, 2132-02, THYR #### [facility] ([id number]) [address] [address] [place] [address] MCHC (RBC) [Mass/Vol] 35.4 g/dL Normal 32-36 [facility] Comment on above: Performed By: #### 2 4331-1, CBCA, CMP, FEPR, 2275-09, 2132-02, THYR #### [facility] ([id number]) [address] [address] MCV (RBC) [Entitic vol] 88 fL Normal 80-100 [facility] Comment on above: Performed By: #### 2 4331-1, CBCA, CMP, FEPR, 2275-09, 2132-02, THYR #### [facility] ([id number]) [address] [address] [place] [address] Monocytes (Bld) [#/Vol] 0.4 10*3/uL Normal 0-0.9 [facility] Comment on above: Performed By: #### 2 4331-1, CBCA, CMP, FEPR, 2275-09, 2132-02, THYR #### [facility] ([id number]) [address], [address] [address] Monocytes/100 WBC (Bld) 8.4 % Normal [facility] Comment on above: Performed By: #### 2 4331-1, CBCA, CMP, FEPR, 2275-09, 2132-02, THYR #### [facility] ([id number]) [address] [address] Neutrophils/100 WBC (Bld) 58.7 % Normal [facility] Comment on above: Performed By: #### 2 4331-1, CBCA, CMP, FEPR, 2275-09, 2132-02, THYR #### [facility] ([id number]) [address] [address] Platelet mean volume (Bld) [Entitic vol] 8.5 fL Normal 7-12 [facility] Comment on above: Performed By: #### 2 4331-1, CBCA, CMP, FEPR, 2275-09, 2132-02, THYR #### [facility] ([id number]) [address] [address] Platelets (Bld) [#/Vol] 234 10*3/uL Normal 150-450 [facility] Comment on above: Performed By: #### 2 4331-1, CBCA, CMP, FEPR, 2275-09, 2132-02, THYR #### [facility] ([id number]) [address] [address] RBC COUNT 4.13 X10E12/L Normal 3.80-5.20 [facility] Comment on above: Performed By: #### 2 4331-1, CBCA, CMP, FEPR, 2275-09, 2132-02, THYR #### [facility] ([id number]) [address], [address] [place] [address] WBC (Bld) [#/Vol] 5.3 10*3/uL Normal 4.0-11.0 [facility] Comment on above: Performed By: #### 2 4331-1, CBCA, CMP, FEPR, 2275-09, 2132-02, THYR #### [facility] ([id number]) [address], [address] [place] [address] COMPREHENSIVE METABOLIC PANE Malachi 03-15-2024 Albumin [Mass/Vol] 4.4 g/dL Normal 3.2-5.3 [facility] Comment on above: Performed By: #### 2 4331-1, CBCA, CMP, FEPR, 2275-09, 2132-02, THYR #### [facility] ([id number]) [address], [address] [place] [address] ALP [Catalytic activity/Vol] 52 U/L Normal 39-130 [facility] Comment on above: Performed By: #### 2 4331-1, CBCA, CMP, FEPR, 2275-09, 2132-02, THYR #### [facility] ([id number]) [address], [address] [place] [address] ALT [Catalytic activity/Vol] 16 U/L Normal 0-31 [facility] Comment on above: Performed By: #### 2 4331-1, CBCA, CMP, FEPR, 2275-09, 2132-02, THYR #### [facility] ([id number]) [address], [address] [place] [address] Anion gap [Moles/Vol] 9 mmol/L Normal 5-15 [facility] Comment on above: Performed By: #### 2 4331-1, CBCA, CMP, FEPR, 2275-09, 2132-02, THYR #### [facility] ([id number]) [address], [address] [place] [address] AST [Catalytic activity/Vol] 19 U/L Normal 0-41 [facility] Comment on above: Performed By: #### 2 4331-1, CBCA, CMP, FEPR, 2275-09, 2132-02, THYR #### [facility] ([id number]) [address], [address] [place] [address] Bilirubin [Mass/Vol] 0.5 mg/dL Normal 0.3-1.2 [facility] Comment on above: Performed By: #### 2 4331-1, CBCA, CMP, FEPR, 2275-09, 2132-02, THYR #### [facility] ([id number]) [address], [address] [place] [address] Calcium [Mass/Vol] 9.3 mg/dL Normal 8.5-10.5 [facility] Comment on above: Performed By: #### 2 4331-1, CBCA, CMP, FEPR, 2275-09, 2132-02, THYR #### [facility] ([id number]) [address], [address] [place] [address] Chloride [Moles/Vol] 104 mmol/L Normal 98-109 [facility] Comment on above: Performed By: #### 2 4331-1, CBCA, CMP, FEPR, 2275-09, 2132-02, THYR #### [facility] ([id number]) [address], [address] [place] [address] CO2 [Moles/Vol] 27 mmol/L Normal 22-32 [facility] Comment on above: Performed By: #### 2 4331-1, CBCA, CMP, FEPR, 2275-09, 2132-02, THYR #### [facility] ([id number]) [address] [address] [place] [address] Creatinine [Mass/Vol] 0.60 mg/dL Normal 0.40-1.00 [facility] Comment on above: Result Comment: METH OD TRACEABLE TO IDMS STANDARD Performed By: #### 2 4331-1, CBCA, CMP, FEPR, 2275-09, 2132-02, THYR #### [facility] ([id number]) [address] [address] [place] [address] eGFR (CKD-EPI) NON-RACE DEPENDENT >90 Normal >59 [facility] Comment on above: Result Comment: Reported eGFR is based on the CKD-EPI 2020 equation that does not use a race coefficient. Performed By: #### 2 4331-1, CBCA, CMP, FEPR, 2275-09, 2132-02, THYR #### [facility] ([id number]) [address] [address] [place] [address] Glucose [Mass/Vol] 75 mg/dL Normal 65-99 [facility] Comment on above: Performed By: #### 2 4331-1, CBCA, CMP, FEPR, 2275-09, 2132-02, THYR #### [facility] ([id number]) [address] [address] [place] [address] Potassium [Moles/Vol] 4.2 mmol/L Normal 3.5-5.0 [facility] Comment on above: Performed By: #### 2 4331-1, CBCA, CMP, FEPR, 2275-09, 2132-02, THYR #### [facility] ([id number]) [address], [address] [place] [address] Protein [Mass/Vol] 7.5 g/dL Normal 6.0-8.0 [facility] Comment on above: Performed By: #### 2 4331-1, CBCA, CMP, FEPR, 2275-4, 2132-02, THYR #### [facility] ([id number]) [address], [address] [place] [address] Sodium [Moles/Vol] 140 mmol/L Normal 134-146 [facility] Comment on above: Performed By: #### 2 4331-1, CBCA, CMP, FEPR, 2275-4, 2132-02, THYR #### [facility] ([id number]) [address], [address] [place] [address] Urea nitrogen [Mass/Vol] 10 mg/dL Normal 5-23 [facility] Comment on above: Performed By: #### 2 4331-1, CBCA, CMP, FEPR, 2275-09, 2132-02, THYR #### [facility] ([id number]) [address], [address] [place] [address] FERRITINon 03-15-2024 Ferritin [Mass/Vol] 55 ng/mL Normal 11-307 [facility] Comment on above: Performed By: #### 2 4331-1, CBCA, CMP, FEPR, 2275-09, 2132-02, THYR #### [facility] ([id number]) [address], [address] [place] [address] IRON PROFILEon 03-15-2024 Iron [Mass/Vol] 126 ug/dL Normal 50-170 [facility] Comment on above: Performed By: #### 2 4331-1, CBCA, CMP, FEPR, 2275-4, 2132-02, THYR #### [facility] ([id number]) [address], [address] [place] [address] IRON BINDING 351 ug/dL Normal 250-425 [facility] Comment on above: Performed By: #### 2 4331-1, CBCA, CMP, FEPR, 6-4, 2132-02, THYR #### [facility] ([id number]) [address], [address] [place] [address] IRON SATURATION 36 % SATURATION Normal 15-50 [facility] Comment on above: Performed By: #### 2 4331-1, CBCA, CMP, FEPR, 6-, 2132-02, THYR #### [facility] ([id number]) [address], [address] [place] [address] Lipid 1996 panelon 03-15- 4 Cholesterol [Mass/Vol] 164 mg/dL Normal 150-200 [facility] Comment on above: Performed By: #### 2 4331-1, CBCA, CMP, FEPR, 2275-, 2132-02, THYR #### [facility] ([id number]) [address], [address] [place] [address] Cholesterol in HDL [Mass/Vol] 57 mg/dL Normal >39 [facility] Comment on above: Result Comment: HDL <40 mg/dL - High Risk HDL > or = 40mg/dL- Desirable HDL >60 mg/dL - Negative Risk Performed By: #### 2 4331-1, CBCA, CMP, FEPR, 6-, 2132-02, THYR #### [facility] ([id number]) [address], [address] [place] [address] Cholesterol in LDL [Mass/Vol] 84 mg/dL Normal <130 [facility] Comment on above: Result Comment: LDL <100 mg/dL - Desirable LDL >160 mg/dL - High Risk Performed By: #### 2 4331-1, CBCA, CMP, FEPR, 2275-09, 2132-02, THYR #### [facility] ([id number]) [address], [address] [place] [address] Cholesterol in VLDL [Mass/Vol] 23 mg/dL Normal 0-30 [facility] Comment on above: Performed By: #### 2 4331-1, CBCA, CMP, FEPR, 2275-09, 2132-02, THYR #### [facility] ([id number]) [address], [address] [place] [address] CHOLESTEROL:HDL 2.9 Normal 1.0-5.0 [facility] Comment on above: Performed By: #### 2 4331-1, CBCA, CMP, FEPR, 2275-09, 2132-02, THYR #### [facility] ([id number]) [address], [address] [place] [address] Triglyceride [Mass/Vol] 115 mg/dL Normal 27-150 [facility] Comment on above: Performed By: #### 2 4331-1, CBCA, CMP, FEPR, 2275-09, 2132-02, THYR #### [facility] ([id number]) [address], [address] [place] [address] THYROID PROFILEon 03-15-2024 Free T4 [Mass/Vol] 0.74 ng/dL Normal 0.61-1.60 [facility] Comment on above: Performed By: #### 2 4331-1, CBCA, CMP, FEPR, 2275-09, 2132-02, THYR #### [facility] ([id number]) [address], [address] [place] [address] TSH 2.68 uIU/mL Normal 0.49-4.67 [facility] Comment on above: Performed By: #### 2 4331-1, CBCA, CMP, FEPR, 2275-09, 2132-02, THYR #### [facility] ([id number]) [address] [place] [address] VITAMIN B12on 03-15-2024 Cobalamin (Vitamin B12) [Mass/Vol] 537 pg/mL Normal 180-914 [facility] Comment on above: Performed By: #### 2 4331-1, CBCA, CMP, FEPR, 2275-09, 2132-02, THYR #### [facility] ([id number]) [address] [facility], [address] [place] [address] POCT urinalysis dipstick onl yon 01-20-2024 Appearance (U) Cloudy [facility] External Poct Urine Bilirubin Negative [facility] External Poct Urine Blood Trace [facility] External Poct Urine Character Malodorous [facility] External Poct Urine Color Dark Yellow [facility] External Poct Urine Glucose Negative [facility] External Poct Urine Ketones Trace [facility] External Poct Urine Leukocyte Esterase Large [facility] External Poct Urine Nitrite Negative [facility] External Poct Urine Ph 5.0 [facility] External Poct Urine Protein 3+ [facility] External Poct Urine Specific [place] 1.000 [facility] External Poct Urine Urobilinogen 0.2 [facility] URINE CULTUREon 01-20-2024 Bacteria identified Cx [...] F TRIMETH/SULFAMETHOXA ZOLE R >=16/304 F Resistant [facility] Comment on above: Performed By: #### 6 30-4 #### [facility] ([id number]) [address] [place] [address] Basic Metabolic Vasquez w/Rfx A1 Con 12-08-2023 GFR/1.73 sq M.predicted MDRD (S/P/Bld) [Vol rate/Area] mL/min/{1.73_m2} Normal [facility] Comment on above: Performed By: #### E BS LIPID, EMP BMP #### [facility] [address] [id number] [place] Calcium [Mass/volume] in Ser um or PlasmaOrdered By: Janna Escalera on 12-08-2023 Calcium [Mass/Vol] 9.5 mg/dL Normal 8.6-10.3 [facility] Comment on above: Performed By: #### E BS LIPID, EMP BMP #### [facility] [address] [id number] [place] Carbon dioxide, total [Moles /volume] in Serum or PlasmaOrdered By: Janna Escalera on 12-08-2023 CO2 [Moles/Vol] 29.1 mmol/L Normal 21.0-31.0 [facility] Comment on above: Performed By: #### E BS LIPID, EMP BMP #### [facility] [address] [place] [address] [place] Chloride [Moles/volume] in S radha or PlasmaOrdered By: Janna Escalera on 12-08-2023 Chloride [Moles/Vol] 105 mmol/L Normal 98-107 [facility] Comment on above: Performed By: #### E BS LIPID, EMP BMP #### [facility] [address] [id number] [place] Cholesterol [Mass/volume] in Serum or PlasmaOrdered By: Janna Escalera on 12-08-2023 Cholesterol [Mass/Vol] 163 mg/dL Normal 140-200 [facility] Comment on above: Chol less than 200 m g/dl low riskChol 201-239 mg/dl borderline riskChol 240 mg/dl and greater high risk Result Comment: Chol less than 200 mg/dl low risk Chol 201-239 mg/dl borderline risk Chol 240 mg/dl and greater high risk Performed By: #### E BS LIPID, EMP BMP #### [facility] [address] [id number] [place] Cholesterol in LDL Calc [Mas s/Vol]Ordered By: Janna Escalera on 12-08-2023 Cholesterol in LDL [Mass/Vol] 84 mg/dL 0-100 [facility] Comment on above: LDL ATP III CLASSIFI CATIONLDL less than 100 mg/dL OptimalLDL 100-129 mg/dL Near or above optimalLDL 130-159 mg/dL Borderline highLDL 160-189 mg/dL HighLDL greater than 189 mg/dL Very high Cholesterol in VLDL Calc [Ma ss/Vol]Ordered By: Janna Escalera on 12-08-2023 Cholesterol in VLDL [Mass/Vol] 17 mg/dL [facility] Creatinine [Mass/volume] in Serum or PlasmaOrdered By: Janna Escalera on 12-08-2023 Creatinine [Mass/Vol] 0.69 mg/dL Normal 0.60-1.20 [facility] Comment on above: Performed By: #### E BS LIPID, EMP BMP #### [facility] [address] [place] [address] [place] Glucose [Mass/volume] in Ser um or PlasmaOrdered By: Janna Escalera on 12-08-2023 Glucose [Mass/Vol] 83 mg/dL Normal 70-100 [facility] Comment on above: Performed By: #### E BS LIPID, EMP BMP #### [facility] [address] [id number] [place] Lipid Profileon 12-08-2023 LDL Cholesterol,Calculated 84 mg/dL Normal 0-100 [facility] Comment on above: Result Comment: LDL ATP III CLASSIFICATION LDL less than 100 mg/dL Optimal LDL 100-129 mg/dL Near or above optimal LDL 130-159 mg/dL Borderline high LDL 160-189 mg/dL High LDL greater than 189 mg/dL Very high Performed By: #### E BS LIPID, EMP BMP #### [facility] [address] Triglyceride w/Reflex 87 mg/dL Normal 0-149 [facility] Comment on above: Result Comment: TRIG ATP III CLASSIFICATION TRIG less than 150 mg/dL Normal TRIG 150-199 mg/dL Borderline high TRIG 200-500 mg/dL High TRIG greater than 500 mg/dL Very high Standard traceable to the Center for Disease Conrtrol and Prevention (CDC) test method. Performed By: #### E BS LIPID, EMP BMP #### [facility] [address] VLDL CHOLESTEROL 17 mg/dL Normal [facility] Comment on above: Performed By: #### E BS LIPID, EMP BMP #### [facility] [address] No Panel InformationOrdered By: Janna Escalera on 12-08-2023 Estimated GFR (CKD-EPI) > 60.0 mL/Min [facility] Creatinine Clearance (Chem N/A [facility] Potassium [Moles/volume] in Serum or PlasmaOrdered By: Janna Escalera on 12-08-2023 Potassium [Moles/Vol] 3.6 mmol/L Normal 3.5-5.1 [facility] Comment on above: Performed By: #### E BS LIPID, EMP BMP #### [facility] [address] [place] [address] Serum or plasma anion gap de terminationOrdered By: Janna Escalera on 12-08-2023 Anion gap [Moles/Vol] 10.5 mmol/L Normal 6.0-15.0 [facility] Comment on above: Performed By: #### E BS LIPID, EMP BMP #### [facility] [address] Serum or plasma high density lipoprotein (HDL) cholesterol measurementOrdered By: Janan Escalera on 12-08-2023 Cholesterol in HDL [Mass/Vol] 62 mg/dL Normal 23-92 [facility] Comment on above: HDL CHOL ATP-III CLA SSIFICATION Cardiovascular RiskHDL > or equal to 60 mg/dL LOWHDL < 40 mg/dL HIGH Result Comment: HDL CHOL ATP-III CLASSIFICATION Cardiovascular Risk HDL > or equal to 60 mg/dL LOW HDL < 40 mg/dL HIGH Performed By: #### E BS LIPID, EMP BMP #### [facility] [address] Serum or plasma total choles terol/high density lipoprotein (HDL) cholesterol mass ratOrdered By: Janna Escalera on 12-08-2023 Cholesterol.total/Chol esterol in HDL [Mass ratio] 2.6 {ratio} Normal <5.0 [facility] Comment on above: Result Comment: PERF ORMED BY: [place] [address] PATHOLOGIST [employer] CHERYL GEORGE M.D. Performed By: #### E BS LIPID, EMP BMP #### [address] Sodium [Moles/volume] in Ser um or PlasmaOrdered By: Janna Escalera on 12-08-2023 Sodium [Moles/Vol] 141 mmol/L Normal 136-145 [facility] Comment on above: Performed By: #### E BS LIPID, EMP BMP #### [facility] [address] Triglyceride [Mass/volume] i n Serum or PlasmaOrdered By: Janna Escalera on 12-08-2023 Triglyceride [Mass/Vol] 87 mg/dL 0-149 [facility] Comment on above: TRIG ATP III CLASSIF ICATIONTRIG less than 150 mg/dL NormalTRIG 150-199 mg/dL Borderline highTRIG 200-500 mg/dL High TRIG greater than 500 mg/dL Very highStandard traceable to the Center for Disease Conrtrol and Prevention (CDC) test method. Urea nitrogen [Mass/volume] in Serum or PlasmaOrdered By: Janna Escalera on 12-08-2023 Urea nitrogen [Mass/Vol] 14 mg/dL Normal 7-25 [facility] Comment on above: Performed By: #### E BS LIPID, EMP BMP #### [facility] [address] MRI HIP RIGHT W CONTRASTon 1 [...] Tucker Ashby MD 06/08/22 Final result Normal [facility] IR INJ ARTHROGRAM HIP RIGHTo n 06-05-2022 [...] 120.55 uGy cm 2 Views: 3 PROCEDURE: OPTICAL GLASS SAWYER: Elijah Houston This procedure was performed by [...] Eric Rae MD 06/05/22 Final result Normal [facility] Successful fluoroscopic-guided right hip arthrogram. Patient was transferred to MRI for further imaging. [facility] RIS CONSOLIDATED EXAMINATION: FLUOROSCOPIC GUIDED RIGHT HIP ARTHROGRAM, 06/05/2022 2:50 pm COMPARISON: None. HISTORY: ORDERING SYSTEM PROVIDED HISTORY: Tear of right acetabular labrum, initial encounter TECHNOLOGIST PROVIDED HISTORY: r/o R hip labral tear. MRI ordered Is the patient ?->No FLUOROSCOPY DOSE AND TYPE OR TIME AND EXPOSURES: Fluoro time 0.3 minutes DAP 120.55 uGy cm 2 Views: 3 PROCEDURE: OPTICAL GLASS SAWYER: Elijah Houston This procedure was performed by [...] and left the Department in stable condition. [facility] RIS CONSOLIDATED Eric Dukes MD - [...] 120.55 uGy cm 2 Views: 3 PROCEDURE: OPTICAL GLASS SAWYER: Elijah Houston This procedure was performed by [...] was transferred to MRI for further imaging. Cardiocore Phone: Radiology Study observation (narrative) Cardiocore Phone: IR INJ ARTHROGRAM HIP RIGHTO rdered By: Eric Dukes on 06-05-2022 [employer] Work Phone: 2018 Novel Coronavirus (CoVI D-19), SAMIR LCon 02-20-2021 SARS-CoV-2 (COVID-19) RNA SAMIR+probe Ql (Unsp spec) Not detected Invalid Interpretation Code Not Detected [facility] Comment on above: Result Comment: This nucleic acid amplification test was developed and its performance characteristics determined by [employer]. Nucleic acid amplification tests include RT- PCR [...] detected) result in this assay. Performed At: [address] [id number] Maritza Uribe PhD Ph:[phone] Performed By: #### 6 [id number] #### [facility] (DEFAULT) [address] [place] [address] Consent Formson 02-19-2021 Consent Forms [id number] #1.00OTGTIFF [facility] Consent Forms [id number] #1.00OTGTIFF [facility] Lab - Toxicology Resultson 0 02-19-2021 Lab - Toxicology Results [id number] #1.00OTGTIFF [facility] Outside Recordson 02-19-2021 Outside Records [id number] #1.00OTGTIFF [facility] Triage Industrialon 02-20-20 21 Drug Screen Complete Collected [facility] Comment on above: Performed By: #### 1 [id number] #### [facility] (DEFAULT) [address] [place] [address] ED Clinical Summaryon 2020 ED Clinical Summary [facility] ? Urgent Care [address] [place] [address] [id number] Clinical Summary PERSON INFORMATION Name: MADDIE RAMAN Age: 25 Years Sex: FEMALE : 1995 MRN: Acct#: Visit Reason: Medical screening exam; [facility] Arrival: 02/18/2021 13:01:04 Discharge: 02/18/2021 14:21:00 LOS: 000 01:20 Check In: 02/18/2021 13:01:04 Checkout: 02/18/2021 14:21:00 Address: [address] [place] [id number] PCP: Provider, Unlisted PROVIDER INFORMATION Provider Role [...] iver verbalizes understanding of instructions given Comment: [facility] ED Patient Summaryon 021 ED Patient Summary [facility] ? Urgent Care [address] [place] [address] [id number] PATIENT DISCHARGE INSTRUCTIONS Patient Information Name: MADDIE RAMAN Age: 25 Years Date of : 1995 [facility]: [id number] Reason For Visit: Medical screening exam; [facility] Arrival Time: 02/18/2021 13:01:04 Primary Care Physician: Provider, Unlisted Attending Physician: Adam Moncada PA-C Comment: Patient Education Medication Information: The exam and treatment you received today in [facility] were for an urgent problem and are not intended as complete care. It is important for you to follow up with a doctor, nurse practitioner, or physician?s front office medical assistant for ongoing care. If your symptoms [...] so we can reach you if necessary. [facility] has provided you with a complete list of medications post discharge. 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 distance learning program coordinator/provider of your visit and for further instruction on these medications. Any specific questions regarding your chronic medications and dosages should be discussed with your primary care physician(s) and/or pharmacist. Visit Information Visit Diagnosis: Diagnoses This Visit Medical screening exam ([id number]) If you received any narcotics, sedation, or [...] Reason for Visit: Patient arrives to for [place] physical Allergies: Substance Reaction Symptoms Type Comments [...] for Disease Control and Prevention February 2014 [facility] Urgent Care Note- Provideron 02-18-2021 Urgent Care Note- Provider Patient: MADDIE RAMAN Age: 25 years Sex: FEMALE : 1995 Associated Diagnoses: None Author: Adam Moncada PA-C Basic Information Additional information: Chief Complaint from Nursing Triage Note : Chief Complaint 02/18/2021 13:34 EDT Chief Complaint Patient arrives to for [place] physical . History of Present Illness Patient presents for a pre-employment physical. She is cleared for work. Exam is normal. See scanned document. PSYCHIATRIC: Mood and affect appropriate. Health Status Allergies: Allergic Reactions (Selected) No known allergies. Past Medical/ Family/ Social History Medical history: No active or resolved past medical history items have been selected or recorded.. Surgical history: Cholecystectomy ([id number]). Hip replacement ([id number]). delivery ([id number]). Cardiac ablation system ([id number]).. Family history: No family history items have [...] % Oxygen Therapy Room air . Normal [facility] Recordon 021 Urgent Care Record [facility] ? Urgent Care [address] [place] [address] PATIENT DISCHARGE INSTRUCTIONS Patient Information Name: MADDIE RAMAN Age: 25 Years Date of : 1995 Reason For Visit: [facility] Time: 02/18/2021 13:01:04 Primary Care Physician: Provider, Unlisted Attending Physician: Adam Moncada PA-C Comment: Visit Diagnosis: Diagnoses This Visit Medical screening exam ([id number]) If you received any narcotics, sedation, or [...] and treatment you received today in the [facility] were for an urgent problem and are not intended as complete care. It is important for you to follow up with a doctor, nurse practitioner, or physician?s front office medical assistant for ongoing care. If your symptoms [...] so we can reach you if necessary. [facility] has provided you with a complete list of medications post discharge. 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 distance learning program coordinator/provider of your visit and for further instruction [...] Disease Control and Prevention February 2014 Normal [facility] PROGESTERONEon 05-25-2020 Progesterone 3.3 ng/mL Normal [facility] Comment on above: Result Comment: Foll icular phase 0.1 - 0.9 Luteal phase 1.8 - 23.9 Ovulation phase 0.1 - 12.0 First trimester 11.0 - 44.3 Second trimester 25.4 - 83.3 Third trimester 58.7 - 214.0 Postmenopausal 0.0 - 0.1 Performed By: #### P ROSA #### [facility] [address] [place], [place] [address] Sebastian Ordoñez Hgb/Hcton 02-22-2019 Hematocrit (Bld) [Volume fraction] 28.7 % Low 36-46 [facility] Comment on above: Performed By: #### H H #### [facility] [address] [facility]. [place], [place] [id number] [employer]: Remy Haq DO Hemoglobin (Bld) [Mass/Vol] 9.4 g/dL Low 12.0-16.0 [facility] Comment on above: Performed By: #### H H #### [facility] [address] [facility] [place] [address] [employer]: Remy Haq DO Basic Metabolic Profon 02-20 (cont.) Normal [facility] Comment on above: Result Comment: Aver age GFR for 20-29 years old: 116 mL/min/1.73sq m Chronic Kidney Disease: <60 mL/min/1.73sq m Kidney failure: <15 mL/min/1.73sq m eGFR calculated using average adult body mass. Additional eGFR calculator available at: http://www.[employer].com/multiple_crcl_2012.htm Performed By: #### C JAMA, BMP #### [facility] [address] [facility]. [place], [place] [id number] [employer]: Remy Haq DO Anion gap [Moles/Vol] 13 mmol/L Normal 9-17 [facility] Comment on above: Performed By: #### C JAMA, BMP #### [facility] [address] [place] [address] [employer]: Remy Haq DO Calcium [Mass/Vol] 8.8 mg/dL Normal 8.6-10.4 [facility] Comment on above: Performed By: #### C BC, BMP #### [facility] [address] [place] [address] [employer]: Remy Haq DO Chloride [Moles/Vol] 103 mmol/L Normal 98-107 [facility] Comment on above: Performed By: #### C BC, BMP #### [facility] [place] [address] [employer]: Remy Haq DO CO2 [Moles/Vol] 25 mmol/L Normal 20-31 [facility] Comment on above: Performed By: #### C BC, BMP #### [facility] [place] [address] [employer]: Remy Haq DO Creatinine [Mass/Vol] 0.72 mg/dL Normal 0.50-0.90 [facility] Comment on above: Performed By: #### C BC, BMP #### [facility] [place] [address] [employer]: Remy Haq DO GFR, Amer >60 Normal >60 [facility] Comment on above: Performed By: #### C BC, BMP #### [facility] [address] [place] [address] [employer]: Remy Haq DO GFR,non Amer >60 Normal >60 [facility] Comment on above: Performed By: #### C BC, BMP #### [facility] [address] [place] [address] [employer]: Remy Haq DO Glucose [Mass/Vol] 96 mg/dL Normal 70-99 [facility] Comment on above: Performed By: #### Joy YUN, BMP #### [facility] [address] [place] [address] [employer]: Remy Haq DO Potassium [Moles/Vol] 4.0 mmol/L Normal 3.7-5.3 [facility] Comment on above: Performed By: #### Joy YUN, BMP #### [facility] [address] [place] [address] [employer]: Remy Haq DO Sodium [Moles/Vol] 141 mmol/L Normal 135-144 [facility] Comment on above: Performed By: #### Joy YUN, BMP #### [facility] [address] [place] [address] [employer]: Remy Haq DO Urea nitrogen [Mass/Vol] 10 mg/dL Normal 6-20 [facility] Comment on above: Performed By: #### Joy YUN, BMP #### [facility] [place] [address] [employer]: Remy Haq DO BUN/CRE Ratio NOT REPORTED Normal 9-20 [facility] Comment on above: Performed By: #### Joy YUN, BMP #### [facility] [place] [address] [employer]: Remy Haq DO Staging: NOT REPORTED Normal [facility] Comment on above: Performed By: #### Joy YUN, BMP #### [facility] [address] [place] [address] [employer]: Remy Haq DO CBCon 02-20-2019 Erythrocyte distribution width (RBC) [Ratio] 16.5 % High 11.5-14.9 [facility] Comment on above: Performed By: #### Joy YUN, BMP #### [facility] [place] [address] [employer]: Remy Haq DO Hematocrit (Bld) [Volume fraction] 25.9 % Low 36-46 [facility] Comment on above: Performed By: #### C JAMA, BMP #### [facility] [address] [place] [address] [employer]: Remy Haq DO Hemoglobin (Bld) [Mass/Vol] 8.6 g/dL Low 12.0-16.0 [facility] Comment on above: Performed By: #### C JAMA, BMP #### [facility] [address] [place] [address] [employer]: Remy Haq DO MCH (RBC) [Entitic mass] 28.2 pg Normal 26-34 [facility] Comment on above: Performed By: #### Joy YUN, BMP #### [facility] [address] [place] [address] [employer]: Remy Haq DO MCHC (RBC) [Mass/Vol] 33.0 g/dL Normal 31-37 [facility] Comment on above: Performed By: #### Joy YUN, BMP #### [facility] [address] [place] [address] [employer]: Remy Haq DO MCV (RBC) [Entitic vol] 85.4 fL Normal 80-100 [facility] Comment on above: Performed By: #### C JAMA, BMP #### [facility] [address] [place] [address] [employer]: Remy Haq DO Platelet mean volume (Bld) [Entitic vol] 6.7 fL Normal 6.0-12.0 [facility] Comment on above: Performed By: #### C JAMA, BMP #### [facility] [address] [facility] [place] [address] [employer]: Remy Haq DO Platelets (Bld) [#/Vol] 419 10*3/uL Normal 150-450 [facility] Comment on above: Performed By: #### Joy YUN, BMP #### [facility] [place] [address] [employer]: Remy Haq DO RBC (Bld) [#/Vol] 3.03 10*6/uL Low 4.0-5.2 [facility] Comment on above: Performed By: #### Joy YUN, BMP #### [facility] [place] [address] [employer]: Remy Haq DO WBC (Bld) [#/Vol] 6.3 10*3/uL Normal 3.5-11.0 [facility] Comment on above: Performed By: #### Joy YUN, BMP #### [facility] [address] [place] [address] [employer]: Remy Haq DO NRBC Automated NOT REPORTED Normal [facility] Comment on above: Performed By: #### Joy YUN, BMP #### [facility] [address] [place] [address] [employer]: Remy Haq DO Hgb/Hcton 02-20-2019 Hematocrit (Bld) [Volume fraction] 29.6 % Low 36-46 [facility] Comment on above: Performed By: #### H H #### [facility] [address] [place] [address] [employer]: Remy Haq DO Hemoglobin (Bld) [Mass/Vol] 9.7 g/dL Low 12.0-16.0 [facility] Comment on above: Performed By: #### H H #### [facility] [address] [place] [address] [employer]: Remy Haq DO CBCon 02-19-2019 Erythrocyte distribution width (RBC) [Ratio] 16.6 % High 11.5-14.9 [facility] Comment on above: Performed By: #### C BC #### [facility] [place] [address] [employer]: Remy Haq DO Hematocrit (Bld) [Volume fraction] 23.2 % Low 36-46 [facility] Comment on above: Performed By: #### C BC #### [facility] [place] [address] [employer]: Remy Haq DO Hemoglobin (Bld) [Mass/Vol] 7.6 g/dL Low 12.0-16.0 [facility] Comment on above: Performed By: #### C BC #### [facility] [place] [address] [employer]: Remy Haq DO MCH (RBC) [Entitic mass] 27.8 pg Normal 26-34 [facility] Comment on above: Performed By: #### C BC #### [facility] [place] [address] [employer]: Remy Haq DO MCHC (RBC) [Mass/Vol] 32.7 g/dL Normal 31-37 [facility] Comment on above: Performed By: #### C BC #### [facility] [place] [address] [employer]: Remy Haq DO MCV (RBC) [Entitic vol] 85.0 fL Normal 80-100 [facility] Comment on above: Performed By: #### C BC #### [facility] [address] [place] [address] [employer]: Remy Haq DO Platelet mean volume (Bld) [Entitic vol] 6.5 fL Normal 6.0-12.0 [facility] Comment on above: Performed By: #### C BC #### [facility] [address] [place] [address] [employer]: Remy Haq DO Platelets (Bld) [#/Vol] 444 10*3/uL Normal 150-450 [facility] Comment on above: Performed By: #### C BC #### [facility] [address] [place] [address] [employer]: Remy Haq DO RBC (Bld) [#/Vol] 2.73 10*6/uL Low 4.0-5.2 [facility] Comment on above: Performed By: #### C BC #### [facility] [address] [place] [address] [employer]: Remy Haq DO WBC (Bld) [#/Vol] 5.1 10*3/uL Normal 3.5-11.0 [facility] Comment on above: Performed By: #### C BC #### [facility] [place] [address] [employer]: Remy Haq DO NRBC Automated NOT REPORTED Normal [facility] Comment on above: Performed By: #### C BC #### [facility] [address] [place] [address] [employer]: Remy Haq DO Type + Crossmatchon 02-20-20 19 Type + Crossmatch Sample Expiration 02/22/2019 Arm Band Number [id number] ABO/Rh(D) A POSITIVE Antibody Screen NEGATIVE Blood Bank Comment Pt's ABRh confirmed as A POS:402 Results Verified BLANCHE, Polyspecific NEGATIVE BLANCHE, Anti-IgG Loreta Serum NEGATIVE Antibody Ident Anti-D[place](A) Present Unit Number [id number] Blood Component Type Leukocyte Reduced Red Cell Unit Division 00 Status of Unit TRANSFUSED Transfusion Status OK TO TRANSFUSE Crossmatch Result COMPATIBLE Normal [facility] Comment on above: Performed By: #### T YX #### [facility] [place] [address] [employer]: Remy Haq DO Basic Metab w/rfx MGon 02-16 (cont.) Normal [facility] Comment on above: Result Comment: Aver age GFR for 20-29 years old: 116 mL/min/1.73sq m Chronic Kidney Disease: <60 mL/min/1.73sq m Kidney failure: <15 mL/min/1.73sq m eGFR calculated using average adult body mass. Additional eGFR calculator available at: http://www.[employer]ablee/multiple_crcl_2012.htm Performed By: #### B MPX, CBC #### [facility] [place] [address] [employer]: Remy Haq DO Anion gap [Moles/Vol] 11 mmol/L Normal 9-17 [facility] Comment on above: Performed By: #### B MPX, CBC #### [facility] [address] [place] [address] [employer]: Remy Haq DO Calcium [Mass/Vol] 8.6 mg/dL Normal 8.6-10.4 [facility] Comment on above: Performed By: #### B MPX, CBC #### [facility] [place] [address] [employer]: Remy Haq DO Chloride [Moles/Vol] 100 mmol/L Normal 98-107 [facility] Comment on above: Performed By: #### B MPX, CBC #### [facility] [address] [place] [address] [employer]: Remy Haq DO CO2 [Moles/Vol] 26 mmol/L Normal 20-31 [facility] Comment on above: Performed By: #### B MPX, CBC #### [facility] [address] [place] [address] [employer]: Remy Haq DO Creatinine [Mass/Vol] 0.62 mg/dL Normal 0.50-0.90 [facility] Comment on above: Performed By: #### B MPX, CBC #### [facility] [address] [place] [address] [employer]: Remy Haq DO GFR, Amer >60 Normal >60 [facility] Comment on above: Performed By: #### B MPX, CBC #### [facility] [address] [place] [address] [employer]: Remy Haq DO GFR,non Amer >60 Normal >60 [facility] Comment on above: Performed By: #### B MPX, CBC #### [facility] [address] [place] [address] [employer]: Remy Haq DO Glucose [Mass/Vol] 95 mg/dL Normal 70-99 [facility] Comment on above: Performed By: #### B MPX, CBC #### [facility] [address] [place] [address] [employer]: Remy Haq DO Potassium [Moles/Vol] 4.2 mmol/L Normal 3.7-5.3 [facility] Comment on above: Performed By: #### B MPX, CBC #### [facility] [address] [place] [address] [employer]: Remy Haq DO Sodium [Moles/Vol] 137 mmol/L Normal 135-144 [facility] Comment on above: Performed By: #### B MPX, CBC #### [facility] [address] [place] [address] [employer]: Remy Haq DO Urea nitrogen [Mass/Vol] 11 mg/dL Normal - [facility] Comment on above: Performed By: #### B MPX, CBC #### [facility] [address] [place] [address] Securities Lending Trader: Remy Haq DO BUN/CRE Ratio NOT REPORTED Normal -20 [facility] Comment on above: Performed By: #### B MPX, CBC #### [facility] [address] [place] [address] Securities Lending Trader: Remy Haq DO Staging: NOT REPORTED Normal [facility] Comment on above: Performed By: #### B MPX, CBC #### [facility] [address] [place] [address] Securities Lending Trader: Remy Haq DO CBCon 02-16-2019 Erythrocyte distribution width (RBC) [Ratio] 16.3 % High 11.5-14.9 [facility] Comment on above: Performed By: #### B MPX, CBC #### [facility] [address] [place] [address] Securities Lending Trader: Remy Haq DO Hematocrit (Bld) [Volume fraction] 22.4 % Low 36-46 [facility] Comment on above: Performed By: #### B MPX, CBC #### [facility] [address] [place] [address] Securities Lending Trader: Remy Haq DO Hemoglobin (Bld) [Mass/Vol] 7.6 g/dL Low 12.0-16.0 [facility] Comment on above: Performed By: #### B MPX, CBC #### [facility] [place] [address] Securities Lending Trader: Remy Haq DO MCH (RBC) [Entitic mass] 29.4 pg Normal 26-34 [facility] Comment on above: Performed By: #### B MPX, CBC #### [facility] [place] [address] Securities Lending Trader: Remy Haq DO MCHC (RBC) [Mass/Vol] 33.8 g/dL Normal 31-37 [facility] Comment on above: Performed By: #### B MPX, CBC #### [facility] [address] [place] [id number] [employer] Lending Trader: Remy Haq DO MCV (RBC) [Entitic vol] 87.1 fL Normal 80-100 [facility] Comment on above: Performed By: #### Adam MPX, CBC #### [facility] [address] [place] [id number] [employer] Lending Trader: Remy Haq DO Platelet mean volume (Bld) [Entitic vol] 6.4 fL Normal 6.0-12.0 [facility] Comment on above: Performed By: #### B MPX, CBC #### [facility] [address] [place] [address] [employer] Lending Trader: Remy Haq DO Platelets (Bld) [#/Vol] 503 10*3/uL High 150-450 [facility] Comment on above: Performed By: #### B MPX, CBC #### [facility] [address] [place] [id number] [employer] Lending Trader: Remy Haq DO RBC (Bld) [#/Vol] 2.57 10*6/uL Low 4.0-5.2 [facility] Comment on above: Performed By: #### B MPX, CBC #### [facility] [address] [facility] [place] [address] Securities Lending Trader: Remy Haq DO WBC (Bld) [#/Vol] 7.5 10*3/uL Normal 3.5-11.0 [facility] Comment on above: Performed By: #### B MPX, CBC #### [facility] [address] [facility] [place] [address] Securities Lending Trader: Remy Haq DO NRBC Automated NOT REPORTED Normal [facility] Comment on above: Performed By: #### B MPX, CBC #### [facility] [address] [facility] [place] [address] Securities Lending Trader: Remy Haq DO Basic Metabolic Panel w/ Ref savanah to MGon 02-15-2019 Anion gap [Moles/Vol] 14 mmol/L 9 - 17 mmol/L [place] Bun/Cre Ratio NOT REPORTED [place] Calcium [Mass/Vol] 8.4 mg/dL Low 8.6 - 10. 4 mg/dL [place] Chloride [Moles/Vol] 102 mmol/L 98 - 10 7 mmol/L [place] CO2 [Moles/Vol] 24 mmol/L 20 - 31 mmol/L [place] Creatinine [Mass/Vol] 0.57 mg/dL 0.5 - 0.9 mg/dL [place] GFR >60 >60 mL/min [place] GFR Non- >60 >60 mL/min [place] GFR/1.73 sq M predicted among non-blacks MDRD (S/P/Bld) [Vol rate/Area] [place] Comment on above: Average GFR for 20-2 9 years old: 116 mL/min/1.73sq m Chronic Kidney Disease: <60 mL/min/1.73sq m Kidney failure: <15 mL/min/1.73sq m eGFR calculated using average adult body mass. Additional eGFR calculator available at: http://www.Shareablee/multiple_crcl_2012.htm GFR/1.73 sq M predicted among non-blacks MDRD (S/P/Bld) [Vol rate/Area] NOT REPORTED [place] Glucose [Mass/Vol] 106 mg/dL High 70 - 99 mg/dL [place] Interpretation and review of laboratory results Abnormal [place] Potassium [Moles/Vol] 4.0 mmol/L 3.7 - 5.3 mmol/L [place] Sodium [Moles/Vol] 140 mmol/L 135 - 144 mmol/L [place] Urea nitrogen [Mass/Vol] 11 mg/dL 6 - 20 mg/dL [place] CBC WITH AUTO DIFFERENTIALon 02-15-2019 Basophils (Bld) [#/Vol] 0.06 10*3/uL [place] Basophils/100 WBC (Bld) 1 % 0 - 2 % [place] Differential Type NOT REPORTED [place] Eosinophils (Bld) [#/Vol] 0.33 10*3/uL [place] Eosinophils/100 WBC (Bld) 5 % High 1 - 4 % [place] Erythrocyte distribution width (RBC) [Ratio] 15.3 % High 11.8 - 14.4 % [place] Hematocrit (Bld) [Volume fraction] 24.9 % Low 36.3 - 47.1 % [place] Hemoglobin (Bld) [Mass/Vol] 7.5 g/dL Low 11.9 - 15.1 g/dL [place] Immature granulocytes (Bld) [#/Vol] 1 % High 0 [place] Immature granulocytes (Bld) [#/Vol] 0.10 10*3/uL [place] Interpretation and review of laboratory results Abnormal [place] Lymphocytes (Bld) [#/Vol] 1.93 10*3/uL [place] Lymphocytes/100 WBC (Bld) 27 % 24 - 43 % [place] MCH (RBC) [Entitic mass] 28.2 pg 25.2 - 33.5 pg [place] MCHC (RBC) [Mass/Vol] 30.1 g/dL 28.4 - 34.8 g/dL [place] MCV (RBC) [Entitic vol] 93.6 fL 82.6 - 102.9 fL [place] Monocytes (Bld) [#/Vol] 0.60 10*3/uL [place] Monocytes/100 WBC (Bld) 8 % 3 - 12 % [place] Platelet mean volume (Bld) [Entitic vol] 9.0 fL 8.1 - 13.5 fL [place] Platelets (Bld) [#/Vol] 458 10*3/uL High [place] Platelets (Bld) [#/Vol] NOT REPORTED [place] RBC (Bld) [#/Vol] 2.66 10*6/uL Low 3.95 - 5.1 1 m/uL [place] RBC morphology finding Nom (Bld) ANISOCYTOSIS PRESENT [place] Segmented neutrophils/100 WBC (Bld) 58 % 36 - 65 % [place] Segs Absolute 4.19 [place] WBC (Bld) [#/Vol] 7.2 10*3/uL [place] WBC (Bld) [#/Vol] 0.0 10*3/uL 0.0 per 10 0 WBC [place] WBC Morphology NOT REPORTED [place] Basic Metabolic Panel w/ Ref savanah to MGon 02-13-2019 Anion gap [Moles/Vol] 13 mmol/L 9 - 17 mmol/L [place] Bun/Cre Ratio NOT REPORTED [place] Calcium [Mass/Vol] 8.5 mg/dL Low 8.6 - 10. 4 mg/dL [place] Chloride [Moles/Vol] 105 mmol/L 98 - 10 7 mmol/L [place] CO2 [Moles/Vol] 23 mmol/L 20 - 31 mmol/L [place] Creatinine [Mass/Vol] 0.46 mg/dL Low 0.5 - 0.9 mg/dL [place] GFR >60 >60 mL/min [place] GFR Non- >60 >60 mL/min [place] GFR/1.73 sq M predicted among non-blacks MDRD (S/P/Bld) [Vol rate/Area] NOT REPORTED [place] GFR/1.73 sq M predicted among non-blacks MDRD (S/P/Bld) [Vol rate/Area] [place] Comment on above: Average GFR for 20-2 9 years old: 116 mL/min/1.73sq m Chronic Kidney Disease: <60 mL/min/1.73sq m Kidney failure: <15 mL/min/1.73sq m eGFR calculated using average adult body mass. Additional eGFR calculator available at: http://www.Shareablee/multiple_crcl_2012.htm Glucose [Mass/Vol] 86 mg/dL 70 - 99 mg/dL [place] Interpretation and review of laboratory results Abnormal [place] Potassium [Moles/Vol] 4.3 mmol/L 3.7 - 5.3 mmol/L [place] Sodium [Moles/Vol] 141 mmol/L 135 - 144 mmol/L [place] Urea nitrogen [Mass/Vol] 9 mg/dL 6 - 20 mg/dL [place] CBC WITH AUTO DIFFERENTIALon 02-13-2019 Basophils (Bld) [#/Vol] 0.06 10*3/uL [place] Basophils/100 WBC (Bld) 1 % 0 - 2 % [place] Differential Type NOT REPORTED [place] Eosinophils (Bld) [#/Vol] 0.40 10*3/uL [place] Eosinophils/100 WBC (Bld) 5 % High 1 - 4 % [place] Erythrocyte distribution width (RBC) [Ratio] 14.8 % High 11.8 - 14.4 % [place] Hematocrit (Bld) [Volume fraction] 25.0 % Low 36.3 - 47.1 % [place] Hemoglobin (Bld) [Mass/Vol] 7.4 g/dL Low 11.9 - 15.1 g/dL [place] Immature granulocytes (Bld) [#/Vol] 2 % High 0 [place] Immature granulocytes (Bld) [#/Vol] 0.14 10*3/uL [place] Interpretation and review of laboratory results Abnormal [place] Lymphocytes (Bld) [#/Vol] 2.18 10*3/uL [place] Lymphocytes/100 WBC (Bld) 25 % 24 - 43 % [place] MCH (RBC) [Entitic mass] 27.1 pg 25.2 - 33.5 pg [place] MCHC (RBC) [Mass/Vol] 29.6 g/dL 28.4 - 34.8 g/dL [place] MCV (RBC) [Entitic vol] 91.6 fL 82.6 - 102.9 fL [place] Monocytes (Bld) [#/Vol] 0.66 10*3/uL [place] Monocytes/100 WBC (Bld) 8 % 3 - 12 % [place] Platelet mean volume (Bld) [Entitic vol] 8.9 fL 8.1 - 13.5 fL [place] Platelets (Bld) [#/Vol] 440 10*3/uL [place] Platelets (Bld) [#/Vol] NOT REPORTED [place] RBC (Bld) [#/Vol] 2.73 10*6/uL Low 3.95 - 5.1 1 m/uL [place] RBC morphology finding Nom (Bld) ANISOCYTOSIS PRESENT [place] Segmented neutrophils/100 WBC (Bld) 61 % 36 - 65 % [place] Segs Absolute 5.37 [facility] [place], [place] WBC (Bld) [#/Vol] 0.0 10*3/uL 0.0 per 10 0 WBC Sammie Seymour BLAINE KELSEY WBC (Bld) [#/Vol] 8.8 10*3/uL [facility] WBC Morphology NOT REPORTED BLAINE Renae ECHO Complete 2D W Doppler W Coloron 02-13-2019 Transthoracic Echocardiography Report (TTE) Patient Name CECI PERKINS Date of Study 02/13/2019 C Date of 1995 Gender Female Age 23 year(s) Race Unknown Room Number 0240 Height: 65 inch, 165.1 cm Corporate ID [id number] Weight: 301 pounds, 136.5 kg # Patient Acct [id number] BSA: 2.35 m^2 BMI: 50.09 kg/m^2 # MR # [id number] Billing Clinician Kaylen Jasso Interpreting Physician Anthony Keating Fellow Referring Nurse Practitioner Interpreting Referring Physician MICHAEL BULLOCK MD Fellow Type of Study TTE procedure:2D Echocardiogram, M-Mode, Doppler, Color Doppler. Procedure Date Date: 02/13/2019 Start: 08:48 AM Study Location: [facility] Technical Quality: Adequate visualization Indications:Irregula r [...] seen. Signature Electronically signed by Anthony Keating([facility] physician) on 02/13/2019 02:00 PM FINDINGS Left [...] Wall E' velocity:0.17 m/s Lateral Wall E/E':5.8 [facility] [place], [place] Tamir, pn Incoming Cardio Results From [facility]/ - 02/13/2019 2:01 PM EDT Transthoracic Echocardiography Report (TTE) Patient Name CECI PERKINS Date of Study 02/13/2019 C Date of 1995 Gender Female Age 23 year(s) Race Unknown Room Number 0240 Height: 65 inch, 165.1 cm Corporate ID [id number] Weight: 301 pounds, 136.5 kg # Patient Acct [id number] BSA: 2.35 m^2 BMI: 50.09 kg/m^2 # MR # [id number] Billing Clinician Kaylen Jasso Interpreting Physician Anthony Keating Fellow Referring Nurse Practitioner Interpreting Referring Physician MICHAEL BULLOCK MD Fellow Type of Study TTE procedure:2D Echocardiogram, M-Mode, Doppler, Color Doppler. Procedure Date Date: 02/13/2019 Start: 08:48 AM Study Location: [facility] Technical Quality: Adequate visualization Indications:Irregula r [...] Wall E' velocity:0.17 m/s Lateral Wall E/E':5.8 [place] EKG 12 Leadon 02-11-2019 Atrial Rate 99 BPM [place] P Wall 69 degrees [place] P-R Interval 136 ms [place] Q-T Interval 344 ms [place] QRS Duration 80 ms [place] QTc Calculation (Bazett) 441 ms [place] R Wall 16 degrees [place] T Wall 4 degrees [place] Ventricular Rate 99 BPM [place] Tamir, [facility] Incoming Ekg Results From [facility] [place] - 02/11/2019 11:00 AM EDT Normal sinus rhythm Cannot rule out Anterior infarct , age undetermined Abnormal ECG When compared with ECG of 31-JAN-2019 19:55, No significant change was found [place] Normal sinus rhythm Cannot rule out Anterior infarct , age undetermined Abnormal ECG When compared with ECG of 31-JAN-2019 19:55, No significant change was found [place] HEMOGLOBIN AND HEMATOCRIT, B LOODon 02-11-2019 Hematocrit (Bld) [Volume fraction] 27.0 % Low 36.3 - 47.1 % [place] Hemoglobin (Bld) [Mass/Vol] 8.3 g/dL Low 11.9 - 15.1 g/dL [place] Interpretation and review of laboratory results Abnormal [place] Microscopic Urinalysison Amorphous, UA NOT REPORTED None [place], [place] Bacteria, UA NOT REPORTED None [place] Casts UA [place] Crystals UA NOT REPORTED None /HPF [facility] [place] Epithelial Cells UA 0 TO 2 [place] Mucus, UA NOT REPORTED None [place] Other Observations UA NOT REPORTED NOT REQ. [place], [place] RBC (U) [#/Vol] 5 TO 10 [place], [place] Comment on above: Reference range defi xiomy for non-centrifuged specimen. Renal Epithelial, Urine NOT REPORTED 0 /HPF [place] Trichomonas, UA NOT REPORTED None [place], [place] WBC, UA TOO NUMEROUS TO COUNT [place] Yeast, UA NOT REPORTED None [place], [place] - [place] URINALYSISon 02-11-2019 Bilirubin Urine Negative NEGATIVE [place], [place] Color, UA YELLOW YELLOW [place] Glucose, Ur Negative NEGATIVE [place] Interpretation and review of laboratory results Abnormal [place] Ketones Ql (U) Negative NEGATIVE [place] Leukocyte esterase Test strip Ql (U) LARGE Abnormal NEGATIVE [place] Nitrite, Urine Negative NEGATIVE [place] pH, UA 5.0 [place] Protein (U) [Mass/Vol] Negative NEGATIVE [place] Specific [place], UA 1.013 [place], [place] Turbidity UA CLOUDY Abnormal CLEAR [place] Urinalysis Comments NOT REPORTED [place] Urine Hgb MODERATE Abnormal NEGATIVE [place] Urobilinogen, Urine Normal Normal [place] HEMOGLOBIN AND HEMATOCRIT, B LOODon 02-10-2019 Hematocrit (Bld) [Volume fraction] 22.5 % Low 36.3 - 47.1 % [place] Hemoglobin (Bld) [Mass/Vol] 6.8 g/dL Critically low 11.9 - 15.1 g/dL [place] Interpretation and review of laboratory results Abnormal [place] TYPE AND SCREENon 02-10-2019 ABO/Rh Positive [place], [place] Arm Band Number [id number] [place], [place] Blood product type Nom (BPU) Leukocyte Reduced Red Cell [place] Crossmatch Result COMPATIBLE [place], [place] Dispense Status TRANSFUSED [place], [place] Expiration Date 02/10/2019 [place], [place] Transfusion Status OK TO TRANSFUSE [place] Unit Divison 0 [place], [place] Unit Number [id number] [place] PELVIS WO CONTRAST Additi onal Contrast? Noneon 02-09-2019 Tamir, pn Incoming Radiant Results From [facility] - 02/09/2019 12:47 PM EDT EXAMINATION: CT [...] extends anterior to the inferior pubic ramus. [place] EXAMINATION: CT OF THE PELVIS WITHOUT [...] chris edema and small foci of air. [place] 1. Improved alignment of the right posterior wall acetabular fracture status post ORIF. 2. Small intra-articular right hip loose bodies. 3. The long screw extends anterior to the inferior pubic ramus. [place] HEMOGLOBIN AND HEMATOCRIT, B [facility] 02-09-2019 Hematocrit (Bld) [Volume fraction] 19.2 % Low 36.3 - 47.1 % [place] Hemoglobin (Bld) [Mass/Vol] 5.9 g/dL Critically low 11.9 - 15.1 g/dL [place] Comment on above: TEST CONFIRMED Interpretation and review of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 165.1 cm Jordan Urbina MD Work Phone: [facility] 11-06-2024 11:38-0400 Body mass index (BMI) [Ratio] 44.96 kg/m2 Jordan Urbina MD Work Phone: [facility] 11-06-2024 11:38-0400 Body weight 122.56 kg Jordan Urbina MD Work Phone: [facility] 11-06-2024 11:38-0400 Diastolic blood pressure 72 mm[Hg] Jordan Urbina MD Work Phone: [facility] 11-06-2024 11:38-0400 Heart rate 83 /min Jordan Urbina MD Work Phone: [facility] 11-06-2024 11:38-0400 Systolic blood pressure 107 mm[Hg] Jordan Urbina MD Work Phone: [facility] 10-25-2024 14:53-0400 Body mass index (BMI) [Ratio] 44.51 kg/m2 Cedric Alana DO Work Phone: [facility] 10-25-2024 14:53-0400 Body weight 121.34 kg Cedric Alana DO Work Phone: [facility] 10-25-2024 14:53-0400 Diastolic blood pressure 74 mm[Hg] Cedric Alana DO Work Phone: [facility] 10-25-2024 14:53-0400 Systolic blood pressure 110 mm[Hg] Cedric Alana DO Work Phone: [facility] 10-22-2024 10:01-0400 Body height 165.1 cm [facility] 10-22-2024 10:01-0400 Body mass index (BMI) [Ratio] 43.9 kg/m2 [facility] 10-22-2024 10:01-0400 Body temperature 98.5 [degF] [facility] 10-22-2024 10:01-0400 Body weight 119.74 kg [facility] 10-22-2024 10:01-0400 Diastolic blood pressure 68 mm[Hg] [facility] 10-22-2024 10:01-0400 Heart rate 88 /min [facility] 10-22-2024 10:01-0400 Respiratory rate 16 /min [facility] 10-22-2024 10:01-0400 SaO2% (BldA) [Mass fraction] 98 % [facility] 10-22-2024 10:01-0400 Systolic blood pressure 99 mm[Hg] [facility] 10-11-2024 09:59-0400 Body mass index (BMI) [Ratio] 43.6 kg/m2 Carey Pena NP Work Phone: [facility] 10-11-2024 09:59-0400 Body weight 118.84 kg Carey Pena NP Work Phone: [facility] 10-11-2024 09:59-0400 Diastolic blood pressure 74 mm[Hg] Carey Pena PAPER GOODS MACHINE OPERATOR Work Phone: [facility] 10-11-2024 09:59-0400 Systolic blood pressure 118 mm[Hg] Carey Jean PAPER GOODS MACHINE OPERATOR Work Phone: [facility] 10-05-2024 08:28-0400 Body height 165.1 cm Liang Fitzgerald MD Work Phone: [facility] 10-05-2024 08:28-0400 Body mass index (BMI) [Ratio] 43.1 kg/m2 Liang Fitzgerald MD Work Phone: [facility] 10-05-2024 08:28-0400 Body weight 117.48 kg Liang Fitzgerald MD Work Phone: [facility] 10-05-2024 08:28-0400 Diastolic blood pressure 74 mm[Hg] Liang Fitzgerald MD Work Phone: [facility] 10-05-2024 08:28-0400 Systolic blood pressure 124 mm[Hg] Liang Fitzgerald MD Work Phone: [facility] 09-26-2024 10:09-0400 Body mass index (BMI) [Ratio] 42.9 kg/m2 Cedric Alana DO Work Phone: [facility] 09-26-2024 10:09-0400 Body weight 116.94 kg Cedric Alana DO Work Phone: [facility] 09-26-2024 10:09-0400 Diastolic blood pressure 70 mm[Hg] Cedric Alana DO Work Phone: [facility] 09-26-2024 10:09-0400 Systolic blood pressure 110 mm[Hg] Cedric Alana DO Work Phone: [facility] 08-24-2024 08:32-0500 Body height 166.4 cm Jordan Urbina MD Work Phone: [facility] 08-24-2024 08:32-0500 Body mass index (BMI) [Ratio] 40.86 kg/m2 Jordan Urbina MD Work Phone: [facility] 08-24-2024 08:32-0500 Body weight 113.13 kg Jordan Urbina MD Work Phone: [facility] 08-24-2024 08:32-0500 Diastolic blood pressure 78 mm[Hg] Jordan Urbina MD Work Phone: [facility] 08-24-2024 08:32-0500 Heart rate 77 /min Jordan Urbina MD Work Phone: [facility] 08-24-2024 08:32-0500 Systolic blood pressure 116 mm[Hg] Jordan Urbina MD Work Phone: [facility] 07-31-2024 11:34-0500 Body mass index (BMI) [Ratio] 39.94 kg/m2 Zoraida Travis PA Work Phone: [facility] 07-31-2024 11:34-0500 Body weight 108.86 kg Zoraida Travis PA Work Phone: [facility] 07-31-2024 11:34-0500 Diastolic blood pressure 64 mm[Hg] Zoraida Angy PA Work Phone: [facility] 07-31-2024 11:34-0500 Systolic blood pressure 102 mm[Hg] Zoraida Pippa Passes PA Work Phone: [facility] 06-15-2024 09:53-0500 Body mass index (BMI) [Ratio] 39.41 kg/m2 Cedric Alana DO Work Phone: [facility] 06-15-2024 09:53-0500 Body weight 107.41 kg Cedric Alana DO Work Phone: [facility] 06-15-2024 09:53-0500 Diastolic blood pressure 68 mm[Hg] Cedric Alana DO Work Phone: [facility] 06-15-2024 09:53-0500 Systolic blood pressure 108 mm[Hg] Cedric Warner DO Work Phone: [facility] 03-15-2024 07:43-0400 Body height 166.4 cm Ally Garciauessler COMPENSATION CONSULTANT-INFANTRYMAN Work Phone: [facility] 03-15-2024 07:43-0400 Body mass index (BMI) [Ratio] 39.38 kg/m2 Ally Kiara COMPENSATION CONSULTANT-INFANTRYMAN Work Phone: [facility] 03-15-2024 07:43-0400 Body temperature 98.6 [degF] Ally Kiara COMPENSATION CONSULTANT-INFANTRYMAN Work Phone: [facility] 03-15-2024 07:43-0400 Body weight 109.05 kg Ally Kiara COMPENSATION CONSULTANT-INFANTRYMAN Work Phone: [facility] 03-15-2024 07:43-0400 Diastolic blood pressure 74 mm[Hg] Ally Kiara COMPENSATION CONSULTANT-INFANTRYMAN Work Phone: [facility] 03-15-2024 07:43-0400 Heart rate 80 /min Ally Garciauessler COMPENSATION CONSULTANT-INFANTRYMAN Work Phone: [facility] 03-15-2024 07:43-0400 SaO2% (BldA) [Mass fraction] 98 % Ally Kiara COMPENSATION CONSULTANT-INFANTRYMAN Work Phone: [facility] 03-15-2024 07:43-0400 Systolic blood pressure 124 mm[Hg] Ally Kiara COMPENSATION CONSULTANT-INFANTRYMAN Work Phone: [facility] 12-22-2023 14:07-0400 Body height 166.4 cm Ally Kiara COMPENSATION CONSULTANT-INFANTRYMAN Work Phone: [facility] 12-22-2023 14:07-0400 Body mass index (BMI) [Ratio] 37.02 kg/m2 Allykadi Craig COMPENSATION CONSULTANT-INFANTRYMAN Work Phone: [facility] 12-22-2023 14:07-0400 Body temperature 98.49 [degF] Ally Craig APRN-INFANTRYMAN Work Phone: [facility] 12-22-2023 14:07-0400 Body weight 102.51 kg Ally Craig COMPENSATION CONSULTANT-INFANTRYMAN Work Phone: [facility] 12-22-2023 14:07-0400 Diastolic blood pressure 70 mm[Hg] Ally Craig COMPENSATION CONSULTANT-INFANTRYMAN Work Phone: [facility] 12-22-2023 14:07-0400 Heart rate 81 /min Ally Craig COMPENSATION CONSULTANT-INFANTRYMAN Work Phone: [facility] 12-22-2023 14:07-0400 SaO2% (BldA) [Mass fraction] 98 % Ally Craig APRN-INFANTRYMAN Work Phone: [facility] 12-22-2023 14:07-0400 Systolic blood pressure 128 mm[Hg] Ally Cragi APRN-INFANTRYMAN Work Phone: [facility] 08-26-2023 14:39-0500 Body height 166.4 cm Doc Guevara MD Work Phone: [facility] 08-26-2023 14:39-0500 Body mass index (BMI) [Ratio] 36.04 kg/m2 Doc Guevara MD Work Phone: [facility] 08-26-2023 14:39-0500 Body weight 99.79 kg Doc Guevara MD Work Phone: [facility] 08-26-2023 14:39-0500 Diastolic blood pressure 73 mm[Hg] Doc Geuvara MD Work Phone: [facility] 08-26-2023 14:39-0500 Heart rate 73 /min Doc Guevara MD Work Phone: [facility] 08-26-2023 14:39-0500 Systolic blood pressure 134 mm[Hg] Doc Guevara MD Work Phone: [facility] 02-15-2019 08:59-0400 Body Temperature 98.1 [degF] Alejandrina Alas [facility] [place] 02-15-2019 08:59-0400 BP Diastolic 54 mm[Hg] Alejandrina Centeno [place] 02-15-2019 08:59-0400 BP Systolic 129 mm[Hg] [facility] [place] 02-15-2019 08:59-0400 Pulse (Heart Rate) 89 /min [facility] [place] 02-15-2019 08:59-0400 Pulse Oximetry 93 % Alejandrina Centeno [place] 02-15-2019 08:59-0400 Respiratory Rate 18 /min Alejandrina [facility] [place] 01-31-2019 19:57-0400 BMI (Body Mass Index) 50.09 kg/m2 Alejandrina Centeno [place] 01-31-2019 19:57-0400 Body weight 136.53 kg Alejandrina [place] 01-31-2019 19:57-0400 Height 165.1 cm Alejandrina [place] Encounters Encounter Date Encounter Type Care Provider Facility Start: 11-06-2024 End: 11-06-2024 Office outpatient visit 15 minutes Jordan Urbina MD Work Phone: [facility] at [facility] Comment on above: History of sleeve ga strectomy (Primary Dx) Start: 11-06-2024 End: 11-06-2024 ambulatory ALLY CRAIG [facility] Start: 11-03-2024 End: 11-03-2024 Clinisync Result Encounter Cedric Alana DO Work Phone: [facility] External Department Unsolicited Start: 11-03-2024 End: 11-03-2024 Clinisync Result Encounter Cedric Alana DO Work [...] [facility] Start: 10-22-2024 End: 10-22-2024 ambulatory [facility] Work Phone: Start: 10-22-2024 End: 10-22-2024 Patient encounter procedure [facility] August[facility] Work Phone: Start: 10-20-2024 End: 10-20-2024 [facility] Start: 10-20-2024 End: 10-20-2024 Office outpatient visit 25 minutes Jordan Urbina MD Work Phone: [facility] Comment on above: History of sleeve ga strectomy (Primary Dx); Hx of supraventricular tachycardia Start: 10-11-2024 End: 10-11-2024 Bamboo flowsheet Carey Pena NP Work Phone: [facility] Start: 10-11-2024 End: 10-11-2024 Bamboo flowsheet Carey Pena PAPER GOODS MACHINE OPERATOR Work Phone: [facility] Start: 10-11-2024 End: 10-11-2024 ambulatory CAREY PENA Not Available Start: 10-11-2024 End: 10-11-2024 flow sheet Carey Pena PAPER GOODS MACHINE OPERATOR Work Phone: [facility] Comment on above: Third trimester preg belkis; 30 weeks gestation of Start: 10-05-2024 End: 10-05-2024 Office outpatient new 45 minutes Liang Fitzgerald MD Work Phone: [facility] Comment on above: Hx of supraventricul ar tachycardia (Primary Dx) Start: 10-05-2024 End: 10-27-2024 ambulatory [facility] Start: 09-29-2024 End: 09-29-2024 Orders Only Triny Morales RN [facility] Comment on above: History of sleeve ga strectomy (Primary Dx); Hx of supraventricular tachycardia; Encounter for follow-up ultrasound of anatomy; Encounter for anatomic survey Start: 09-28-2024 End: 09-28-2024 ambulatory [facility] Start: 09-26-2024 End: 09-26-2024 Bamboo flowsheet Cedric Alana DO Work Phone: [facility] Start: 09-26-2024 End: 09-26-2024 Bamboo flowsheet Cedric Alana DO Work Phone: [facility] Start: 09-26-2024 End: 09-26-2024 flow sheet Cedric Alana DO Work Phone: [facility] Comment on above: Third trimester preg belkis; 28 weeks gestation of Start: 09-26-2024 End: 09-26-2024 ambulatory CEDRIC ALANA Not Available Start: 08-29-2024 End: 08-29-2024 ambulatory ZORAIDA TRAVIS Not Available Start: 08-24-2024 End: 08-24-2024 Office consultation new/estab patient 60 min Jordan Urbina MD Work Phone: [facility] Comment on above: History of sleeve ga strectomy (Primary Dx); Hx of supraventricular tachycardia Start: 08-24-2024 End: 08-24-2024 Orders Only Cindy Walton RN [facility] Comment on above: History of sleeve ga strectomy (Primary Dx); Hx of supraventricular tachycardia; Encounter for follow-up ultrasound of anatomy Start: 08-14-2024 End: 08-14-2024 Chart abstracting Jordan Urbina MD Work Phone: [facility] Start: 08-05-2024 End: 08-05-2024 Clinisync Result [...] patient 18-39 yrs Zoraida SEGOVIA Work Phone: [facility] Comment on above: Screening, , for anatomic survey; Well woman exam with routine gynecological exam; Second trimester ; Exposure to STD Start: 07-31-2024 End: 07-31-2024 ambulatory ZORAIDA TRAVIS Not Available Start: 07-23-2024 End: 07-24-2024 Refill Ally Craig COMPENSATION CONSULTANT-INFANTRYMAN Work Phone: [facility] Comment on above: Chest cold; Acute cough; Wheezing Start: 07-16-2024 End: 07-17-2024 Refill Ally Craig COMPENSATION CONSULTANT-INFANTRYMAN Work Phone: [facility] Comment on above: Lumbar disc herniati on Start: 07-05-2024 End: 07-07-2024 Clinisync Result Encounter Cedric Alana DO Work Phone: [facility] External Department Unsolicited Start: 07-05-2024 End: 07-07-2024 Clinisync Result Encounter Cedric Alana DO Work Phone: [facility] External Department Unsolicited Start: 06-15-2024 End: 06-15-2024 Bamboo flowsheet Cedric Alana DO Work Phone: [facility] Start: 06-15-2024 End: 06-15-2024 Bamboo flowsheet Cedric Alana DO Work Phone: [facility] Start: 06-15-2024 End: 06-15-2024 flow sheet Cedric Alana DO Work Phone: [facility] Comment on above: , unspecifi ed gestational age; 15 weeks gestation of ; Second trimester ; H/O gastric sleeve Start: 06-15-2024 End: 06-15-2024 ambulatory CEDRIC ALANA Not Available Start: 06-06-2024 End: 06-06-2024 Clinisync Result Encounter Cedric Alana DO Work Phone: [facility] External Department Unsolicited Start: 06-06-2024 End: 06-06-2024 Clinisync Result Encounter Cedric Alana DO Work Phone: [facility] External Department Unsolicited Start: 05-29-2024 End: 05-29-2024 Office outpatient visit 5 minutes [facility] Laana Nurse [facility] Comment on above: [...] Start: 05-02-2024 End: 05-04-2024 Refill Aranza Carballo COMPENSATION CONSULTANT-INFANTRYMAN Work Phone: [facility] Comment on above: History of sleeve ga strectomy; Postsurgical malabsorption; Malnutrition following gastrointestinal surgery Start: 03-20-2024 End: 03-20-2024 Refill Aranza Carballo COMPENSATION CONSULTANT-INFANTRYMAN Work Phone: [facility] Comment on above: History of sleeve ga strectomy; Postsurgical malabsorption; Malnutrition following gastrointestinal surgery; Vitamin B12 deficiency Start: 03-15-2024 End: 03-15-2024 [facility] Start: 03-15-2024 End: 03-15-2024 Office outpatient visit 25 minutes Ally Craig COMPENSATION CONSULTANT-INFANTRYMAN Work Phone: [facility] Comment on above: History of sleeve ga strectomy (Primary Dx); Malnutrition following gastrointestinal surgery; Chronic fatigue; Sinus pressure; Lipid screening; Weight gain; Mixed anxiety and depressive disorder; BMI 39.0-39.9,adult Start: 03-15-2024 End: 03-15-2024 [facility] Comment on above: History of sleeve ga strectomy (Primary Dx); Postsurgical malabsorption; Malnutrition following gastrointestinal surgery; History of anemia Start: 02-15-2024 End: 02-16-2024 Orders Only Ally Craig COMPENSATION CONSULTANT-INFANTRYMAN Work Phone: [facility] Comment on above: Lumbar disc herniati on Start: 01-25-2024 End: 01-25-2024 Telephone encounter Pat Cotter [facility] Start: 01-20-2024 End: 01-20-2024 [facility] Start: 01-20-2024 End: 01-20-2024 [facility] Comment on above: Dysuria (Primary Dx) Start: 12-27-2023 End: 12-28-2023 Telephone encounter Ally Craig COMPENSATION CONSULTANT-INFANTRYMAN Work Phone: [facility] Start: 12-22-2023 End: 12-22-2023 Office outpatient visit 25 minutes Ally Craig COMPENSATION CONSULTANT-INFANTRYMAN Work Phone: [facility] Comment on above: Lumbar disc herniati on (Primary Dx) Start: 12-22-2023 End: 12-22-2023 ambulatory [facility] Start: 12-08-2023 End: 12-08-2023 ambulatory NON STAFF [facility] Work Phone: Start: 12-08-2023 End: 12-08-2023 Departed Referred [facility] [address] Work Phone: Start: 08-26-2023 End: 08-26-2023 Office outpatient new 45 minutes Doc Guevara MD Work Phone: [facility] Reconstructive/Plast ic Surgery Comment on above: History of sleeve ga strectomy; Localized adiposity Start: 08-26-2023 End: 08-26-2023 ambulatory DOC GUEVARA [facility] Start: 06-07-2023 End: 06-07-2023 [facility] Start: 06-05-2022 End: 06-08-2022 ambulatory ALLY CRAIG [facility] Start: 06-05-2022 End: 06-07-2022 Subsequent hospital visit by physician Eddie Interventional Radiologist [facility] Comment on above: Tear of right acetab ular labrum, initial encounter Start: 03-19-2022 End: 03-19-2022 ambulatory Jeane Canela Other [email or web address] Other Start: 03-19-2022 Telephone encounter Jeane dalal [facility] [place] Start: 05-24-2020 End: 05-25-[address] CEDRIC WARNER Facility: Start: 02-15-2019 End: 02-22-2019 Evaluation and management of inpatient TERRI Brooke AUGUSTIN [facility] Start: 01-31-2019 End: 02-15-2019 Evaluation and management of inpatient Alejandrina Centeno Work Phone: [address] Ortho/Med Surg Comment on above: Closed nondisplaced fracture of head of left radius, initial encounter (Primary Dx); Closed dislocation of right hip, initial encounter (HCC); Traumatic rectus hematoma, initial encounter Procedures Date Procedure Procedure Detail Performing Clinician Start: 11-03-2024 OB BPP W NON-STRESS Cedric Alana DO Work Phone: Start: 10-30-2024 US OB BPP W NON-STRESS [...] et rgnt non-auto w/o micrscp Radha Gan COMPENSATION CONSULTANT-INFANTRYMAN Work Phone: Start: 11-09-2022 Adult depression scr [...] TERRIMIRACLE AUGUSTIN Start: 02-21-2019 NURSING COMMUNICATION S CHIQUIVEGAGelacio DEMETRIA Start: 02-21-2019 INCENTIVE SPIROMETRY RT TERRI [...] TERRI DEMETRIA Start: 02-21-2019 INCENTIVE SPIROMETRY NURSING ETRRIMIRACLE AUGUSTIN Start: 02-21-2019 REMOVE SARAH TERRI SHANKAR Start: 02-21-2019 INCENTIVE SPIROMETRY RT TERRI DEMETRIA [...] TERRI AUGUSTIN Start: 02-19-2019 TYPE AND CROSSMATCH SMITH MIRACLE AUGUSTIN Start: 02-19-2019 INCENTIVE SPIROMETRY RT TERRI [...] TERRI DEMETRIA Start: 02-15-2019 INCENTIVE SPIROMETRY RT TERRIMIRACLE AUGUSTIN Start: 02-15-2019 DIET GENERAL TERRI CYNTHIA Castellanos Start: 02-15-2019 ENCOURAGE DEEP BREAT MISSAEL AND COUGHING TERRI AUGUSTIN Start: 02-15-2019 FALL PRECAUTIONS TERRI AUGUSTIN Start: 02-15-2019 GRADUAL COMPRESSION STOCKINGS (ALLYSSA) TERRI AUGUSTIN Start: 02-15-2019 INCENTIVE SPIROMETRY RT TERRI DEMETRIA Start: 02-15-2019 IP CONSULT TO DIETITIAN TERRI AUGUSTIN Start: 02-15-2019 IP CONSULT TO WOOD FILLER AL MEDICINE TERRI AUGUSTIN Start: 02-15-2019 IP [...] CYNTHIA Castellanos Start: 02-15-2019 MEASURE WEIGHT TERRI CANCINO [...] tthrc r-t 2d w/wom-mode compl spec&colr d Zasawyerbedin Mathieu Work Phone: Start: 02-11-2019 Urinalysis microscop [...] deleon Start: 02-10-2019 Blood count hemoglobin Cecilio Lakeisha Richards Work Phone: Start: 02-10-2019 TRANSFUSE RED BLOOD CELLS Shantal Segal Work Phone: Start: 02-09-2019 Blood count hemoglobin Shahid Ramírez Hollis Work Phone: Start: 02-09-2019 Blood count hemoglobin Shahid L Hollis Work Phone: Start: 02-09-[address] Work Phone: Start: 02-08-2019 Radex wrist complete minimum 3 views Chong Lin Work Phone: Start: 02-08-2019 Ct pelvis w/o contra st material Manuel Ziegler Work Phone: Start: 02-08-2019 Radex foot complete minimum 3 views Chong [employer] Work Phone: Start: 02-08-2019 Radiologic exam pelv is compl minimum 3 views Manuel Ziegler Work Phone: Start: 02-08-2019 CV HGB/HCT Donn Benavidez Work Phone: Start: 02-08-2019 Radiologic exam pelv is compl minimum 3 views Mary Pop Mazariegos Work Phone: Start: 02-08-2019 End: 02-08-2019 ACETABULUM OPEN REDUCTION INTERNAL FIXATION Mary Pop [employer] Work Phone: Start: 02-08-2019 Urine test visual color cmprsn meths Donn SmithViewRay Work Phone: Start: 02-07-2019 BLOOD BANK SPECIMEN Ant michelle Lakeisha Benavidez Work Phone: Start: 02-07-2019 Blood typing serologic abo Cecilio Richards Work Phone: Start: 02-07-2019 Basic metabolic pane l calcium total [employer] Work Phone: Start: 02-07-2019 Blood count complete automated Chong [employer] Work Phone: Start: 02-05-2019 Blood count hemoglobin [...] magnesium Tric rosina Salomon Work Phone: Start: 02-02-2019 Basic metabolic pane [...] Radiologic examinati on femur minimum 2 views [employer] Work Phone: Start: 02-01-2019 Urinalysis microscop ic [...] 02-01-2019 25 hydroxy includes fractions if performed Collins Qian Work Phone: Start: 02-01-2019 Hepatic function panel Collins Qian Work Phone: Start: 02-01-2019 Ct lumbar spine w/o contrast material Federico Crandon Work Phone: Start: 02-01-2019 Ct thoracic spine w/ o contrast material Federico Crandon Work Phone: Start: 02-01-2019 Ct thorax w/contrast material Federico Crandon Work Phone: Start: 02-01-2019 Ct cervical spine w/ o contrast material Federico Crandon Work Phone: Start: 02-01-2019 Ct head/brain w/o co ntrast material Federico Crandon Work Phone: Start: 02-01-2019 Radiologic examinati on knee 3 views Leonel Butt Work Phone: Start: 02-01-2019 Radex wrist complete minimum 3 views Collins Qian Work Phone: Start: 02-01-2019 Radex wrist 2 views Mil o Qian Work Phone: Start: 02-01-2019 Radiologic examinati on femur minimum 2 views Leonel West Butt Work Phone: Start: 02-01-2019 Radiologic examinati on tibia & fibula 2 views Leonel West Butt Work Phone: Start: 02-01-2019 Radex hip unilateral with pelvis 2-3 views Leonel West Butt Work Phone: Start: 02-01-2019 PULSE OXIMETRY, CONTINUOUS Federico Crandon Work Phone: Start: 01-31-2019 END TIDAL CO2 CONTINUOUS Federico Crandon Work Phone: Start: 01-31-2019 Radex hip unilateral with pelvis 2-3 views Federico Crandon Work Phone: Start: 01-31-2019 Radex wrist complete minimum 3 views Federico Crandon Work Phone: Start: 01-31-2019 Basic metabolic pane l calcium total Federico Crandon Work Phone: Start: 01-31-2019 Blood count complete auto&auto difrntl wbc Federico Crandon Work Phone: Start: 01-31-2019 Gonadotropin chorion ic qualitative Federico Crandon Work Phone: Start: 01-31-2019 Ecg routine ecg w/le ast 12 lds i&r only Federico Plummer Work Phone: Start: 01-31-2019 EKG REPORT Hpf Kari eason Plan of Treatment Date Care Activity Detail Author Start: 07-31-2027 Screening for malign ant neoplasm of cervix [facility] Start: 11-06-2025 Adult BMI Screening Adult BMI Screen ing [facility] Start: 10-05-2025 Adult BMI Screening Adult BMI Screen ing [facility] Start: 10-05-2025 Tobacco Screening Tobacco Screening [facility] Start: 09-29-2025 End: 09-29-2025 US MFM with or without consult US MFM with or without consult Imaging Routine History of sleeve gastrectomy Hx of supraventricular tachycardia Encounter for follow-up ultrasound of anatomy Encounter for anatomic survey Expected: 09/29/2025 (Approximate), Expires: 09/29/2025 [facility] Work Phone: Comment on above: Expected: 09/29/2025 (Approximate), Expires: 09/29/2025 Start: 08-24-2025 Adult BMI Screening Adult BMI Screen ing [facility] Start: 08-24-2025 Tobacco Screening Tobacco Screening [facility] Start: 08-24-2025 End: 08-24-2025 US MFM with or without consult US MFM with or without consult Imaging Routine History of sleeve gastrectomy Hx of supraventricular tachycardia Encounter for follow-up ultrasound of anatomy Expected: 08/24/2025 (Approximate), Expires: 08/24/2025 [employer] Work Phone: Comment on above: Expected: 08/24/2025 (Approximate), Expires: 08/24/2025 Start: 03-15-2025 Adult BMI Screening Adult BMI Screen ing [facility] Start: 03-15-2025 Tobacco Screening Tobacco Screening [facility] Start: 02-19-2025 Influenza vaccination [facility] Start: 01-19-2025 Tobacco Screening Tobacco Screening [facility] Start: 12-21-2024 Adult BMI Screening Adult BMI Screen ing [facility] Start: 12-21-2024 Tobacco Screening Tobacco Screening [facility] Start: 11-18-2024 DTaP,Tdap and Td Vaccines (7 - Td or Tdap) DTaP,Tdap and Td Vaccines (7 - Td or Tdap) [facility] Start: 11-18-2024 DTaP/Tdap/Td vaccine (7 - Td or Tdap) DTaP/Tdap/Td vaccine (7 - Td or Tdap) [facility] Start: 11-18-2024 DTaP/Tdap/Td vaccine (7 - Td) DTaP/Tdap/Td vaccine (7 - Td) [facility] [place] [place] Start: 11-10-2024 End: 11-10-2024 Patient encounter procedure 11/10/2024 9:15 AM EDT Office Visit [facility] [address] [place] [id number] Liang Fitzgerald MD [address] [place] [address] [facility] Start: 11-09-2024 End: 11-09-2024 Patient encounter procedure 11/09/2024 9:50 AM EDT Routine [facility] [address] [facility] [address] [place] [phone] Zoraida Travis PA [address] [address] [facility] Start: 11-06-2024 End: 11-06-2024 Patient encounter procedure 11/06/2024 11:00 AM EDT Appointment [facility] [address] [place] [phone] [facility] Start: 10-25-2024 End: 10-25-2024 Patient [...] 9:45 AM EDT Telemedicine [facility]- [facility] at [facility] [address] [place] [address] Jordan Urbina MD [address] [place] [address] [facility] at [facility] Start: 10-11-2024 End: 10-11-2024 Patient encounter procedure 10/11/2024 9:40 AM EDT Routine [facility] [address] [place] [phone] Zoraida Travis PA [address] [place] [address] [facility] Start: 10-05-2024 End: 10-05-2025 Wireless Telemetry (In Office) [facility] Work Phone: Comment on above: Expected: 10/05/2024 , Expires: 10/05/2025 Start: 10-05-2024 End: 10-05-2024 Patient encounter procedure 10/05/2024 8:30 AM EDT Office Visit [facility] [address] [place] [phone] Liang Fitzgerald MD [address] [place] [address] [facility] Start: 09-28-2024 End: 09-28-2024 Patient encounter procedure 09/28/2024 2:45 PM EDT Appointment [facility] [address] [place] [address] [facility] Start: 09-26-2024 End: 09-26-2024 Patient encounter procedure 09/26/2024 9:50 AM EDT Routine [facility] [address] [place] [phone] Cedric Warner DO [address] [place], [place] [id number] Arrived [facility] Comment on above: Arrived Start: 08-29-2024 End: 08-29-2024 Patient encounter procedure 08/29/2024 8:30 AM EDT Routine [facility] [address] [place] [phone] Zoraida Travis, PA [address] [place], [place] [id number] [facility] Start: 08-25-2024 Adult BMI Screening Adult BMI Screen ing [facility] Start: 08-25-2024 Tobacco Screening Tobacco Screening [facility] Start: 08-24-2024 End: 08-24-2024 Patient encounter procedure [facility] Start: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
== END 2024-11-07 17:20 | disposition home or self-care (01) ==
LOC: FBCO 16:51 → FBC 16:53
PROVIDERS: PCP Nurse Practitioner; Visit Provider Obstetrics & Gynecology
DX: O26.893 Other specified pregnancy related conditions, third trimester (principal); Z3A.34 34 weeks gestation of pregnancy
CPT/HCPCS: 59025

== ENCOUNTER 2024-11-10 14:53 | Outpatient (OUT) | payer OTHER, SELFPAY ==
--- OUTSIDE RECORDS SUMMARY | 2023-09-30 06:30 | XMS_ITS ---
Author Organization [facility] vices Address [address], [place] [id number] Care Team Providers Care Color Blender Name Role Phone Dionne Grande Unavailable [phone] REASON FOR VISIT 2 week f/u Medications [...] Problem Status W/U Status Risk Notes Problem [id number] Anxiety with depression (F41.8) Active confirmed Encounters Encounter Location Date Provider Diagnosis Main [address] [place], [place] [id number] 09/30/2023 Dionne Grande Bipolar disorder F31 .9 ; long-term current use of antipsychotic medication Z79.899 and Anxiety with depression F41.8 Assessments Encounter Date Diagnosis (ICD Code) Assessment Notes Treatment Notes Treatment Clinical Notes Section Notes 09/30/2023 Bipolar disorder (ICD-10 - F31.9) needs improvement Schedule wellness with PCP. Obtain ordered labs. 09/30/2023 long-term current use of antipsychotic medication (ICD-10 - [...] , 11/20/2024 08:00:00 AM, [address] [place], [place], [phone], Provider Name:Kelli Hyde , 11/22/2024 08:30:00 AM, [address] [place], [place], [phone], Progress Notes * Jana RAMANDOB:1995 ( 29 yo F)Acc No.[id number]:09/30/2023 Patient: Jana VEGA Provider: JOANA CentenoHNP-BC :1995 A ge:28 Y S ex:Female Date:09/30/2023 Address:[address] [place], [place] [id number] Subjective: * Chief Complaints: * 1 . [...] Problems: * Billing Information: * Visit Code: 43918 Office Visit Est 10 -19 minutes. * Procedure Codes: Care Plan Details* * Electronic signature of TANYA Peters on 11/10/2024 at 02:55 PM EDT Sign off status: Pending * Provider: TANYA Centeno Date: 0 09/30/2023 Generated for Jc eason/William/Rony on: 0 11/10/2024 02:55 PM EDT
--- OUTSIDE RECORDS SUMMARY | 2024-10-05 09:00 | XMS_ITS | Encounter Summary ---
Author Organization [employer] Address [id number] [address] [place] [address] Care Team Providers Care Pelt Dropper Name Role Phone Ally Craig FLORIST DESIGNER-INTEGRATION PROJECT MANAGER Primary Care Provi collin Reason for Visit * Cardiology (Routine) - Pending Review Specialty Diagnoses / Procedures Referred By Violeta t Referred To Contact Diagnoses Hx of supraventricular tachycardia Procedures Wireless Telemetry (In Office) Ole Rojas MD [address] [place] [address] Phone: tel: fax: Referral ID Status Reason Start Date Expiration Date V isits Requested Visits Authorized [id number] Pending Review 10/05/2024 10/05/2025 1 1 Encounter Details Date Type Department Care Team (Latest Contact Info) Description 10/05/2024 9:00 AM EDT Ancillary Procedure [facility] [address] [place] [id number] Hx of supraventricular tachycardia Social History Tobacco Use Types Packs/Day Years Used Date Smoking Tobacco: Never Passive Smoke Exposure: Never Smokeless Tobacco: Never Alcohol Use Standard Drinks/Week Comments Not Currently 0 (1 standard drink = 0.6 oz pur e alcohol) Occassionally-2 times a year PHQ-2 Answer Date Recorded Total Score 19 11/09/2022 Childcare Answer Date Recorded Childcare Unknown 11/30/2018 Employment Answer Date Recorded Employment Unknown 11/30/2018 Hunger Screening Answer Date Recorded Within the past 12 months we worried whether our food would run out before we got money to buy more. Never True 08/24/2024 Within the past 12 months th e food we bought just didn't last and we didn't have money to get more. Never True 08/24/2024 Purpose - Life Answer Date Recorded Purpose and direction in life Unknown Estimated Date of Delivery Comme nts Yes 12/14/2024 Based on Ultraso und Sex and Gender Information Value Date Recorded Sex Assigned at Not on file Legal Sex Female 11:54 AM EDT Gender Identity Not on file Sexual Orientation Not on file documented as of this encounter Plan of Treatment Not on file documented as of this encounter Goals Goal Patient Goal Type Associated Problems Recent Progress Patient-Stated? Author D/C Home General Yes Yaneth Bright APRN-CNP Note: Evaluation of progress towards goal: Pt plans to d/c home with self care and family support. documented as of this encounter Procedures Procedure Name Priority Date/Time Associated Diagnosis Comments WIRELESS TELEMETRY (IN OFFICE) Routine 10/05/2024 8:59 AM EDT Hx of supraventricular tachycardia documented in this encounter Results * Wireless Telemetry (In Office) (10/05/2024 8:59 AM EDT) Anatomical Region Laterality Modality Other Narrative 10/26/2024 10:27 AM EDT MCOT: 4d 13h 15m from 10/10/2024 was reviewed The patient's heart rate ranged from 56-120 bpm with an average heart rate of 89 bpm No arrhythmias seen No symptoms reported by the patient us Ole Rojas MD [facility] ORDER GILES Final Result documented in this encounter Visit Diagnoses Diagnosis Hx of supraventricular tachycardia documented in this encounter Additional Health Concerns Assessment Noted Time PHQ-9 Depression Total Score: 19 023 10:14 AM EDT documented as of this encounter Care Teams Pelt Dropper Relationship Specialty Start Date End Date Ally Craig APRN-INTEGRATION PROJECT MANAGER [address], [place] [address] PCP - General Family Medicine 04/12/18 documented as of this encounter
--- OUTSIDE RECORDS SUMMARY | 2024-11-06 10:39 | XMS_ITS | Encounter Summary ---
Author Organization [employer] Address [facility] [id number] [address] [place] [address] Care Team Providers Care Obstetrician And Gynaecologist Name Role Phone Ally Craig SEWING MACHINE MECHANIC-ACUTE CARE ASSISTANT Primary Care Provi collin Reason for Referral * Diagnostic Imaging (Routine) - Pending Review Specialty Diagnoses / Procedures Referred By Violeta dalal Referred To Contact Maternal and Medicine Diagnoses History of sleeve gastrectomy Hx of supraventricular tachycardia Encounter for follow-up ultrasound of anatomy Encounter for anatomic survey Procedures US MFM with or without consult Luis Angel Nguyen MD [address] [address] Phone: tel: fax: Maternal- Medicine at [facility] [address] [place] [address] Phone: tel: fax: Referral ID Status Reason Start Date Expiration Date V isits Requested Visits Authorized [id number] Pending Review 09/29/2024 09/29/2025 1 1 Reason for Visit * Diagnostic Imaging (Routine) - Pending Review Specialty Diagnoses / Procedures Referred By Violeta dalal Referred To Contact Maternal and Medicine Diagnoses History of sleeve gastrectomy Hx of supraventricular tachycardia Encounter for follow-up ultrasound of anatomy Encounter for anatomic survey Procedures [facility] with or without consult Luis Angel Nguyen MD [address] [facility]NY[facility], [address] [place] [address] Phone: tel: fax: Maternal- Medicine at [facility] [address] [place] [address] Phone: tel: fax: Referral ID Status Reason Start Date Expiration Date V isits Requested Visits Authorized [id number] Pending Review 09/29/2024 09/29/2025 1 1 Encounter Details Date Type Department Care Team (Latest Contact Info) Description 11/06/2024 10:39 AM EDT - 11/06/2024 11:59 PM EDT Hospital Encounter [facility] US Imaging [address] [place] [address] History of sleeve gastrectomy; Hx [...] Author D/C Home General Yes Yaneth Bright, SEWING MACHINE MECHANIC-ACUTE CARE ASSISTANT Note: Evaluation of progress towards goal: Pt plans to d/c home with self care and family support. documented as of this encounter Procedures Procedure Name Priority Date/Time Associated Diagnosis Comments US [facility] OB FOLLOW-UP, 1 FETUS Routine 11/06/2024 1:37 PM EDT History of sleeve gastrectomy Hx of supraventricular tachycardia Encounter for follow-up ultrasound of anatomy Encounter for anatomic survey documented in this encounter Results * [facility] OB FOLLOW-UP, 1 FETUS (11/06/2024 1:37 PM EDT) Anatomical Region Laterality Modality OB-HEAVY EQUIPMENT SALES MANAGER Ultrasound 11/06/2024 11:3 9 AM EDT Narrative 11/06/2024 3:01 PM EDT NAME: CECI PERKINS : 1995 SEX: F Accession Number: [id number] ORDERING PHYSICIAN: LUIS ANGEL NGUYEN REFERRING PHYSICIAN: ARMINDA WHITE Coding ----- --------- Procedures [id number]: Follow-up Ultrasound, per fetus Indication ----- --------- Obesity in , Previous , Previous bariatric surgery, Screening for follow-up survey History ----- --------- OB History 7. Para 1 [id number] Maternal Assessment ----- --------- Physical Exam Height [...] EFW (oz) 15 oz EFW by: Hadlock ([id number]-[id number]-FL) Extended Tibia 56.0 mm 32w 6d 26% Jody Talent Acquisition Associate 3.4 mm CM 9.1 mm 87% Nicolaides [...] Thorax RVOT view. LVOT view. 3-vessel view. 8-lsrqgr-onvablq view. Situs. Aortic arch view. Bicaval view. [...] PERKINS : 1995 SEX: F Accession Number: [id number] ORDERING PHYSICIAN: LUIS ANGEL NGUYEN REFERRING PHYSICIAN: ARMINDA WHITE Coding ----- --------- Procedures [id number]: Follow-up Ultrasound, per fetus Indication ----- --------- Obesity in , Previous , Previous bariatric surgery,Screening for follow-up survey History ----- --------- OB History 7. Para 1 [id number] Maternal Assessment ----- --------- Physical Exam Height [...] EFW (oz) 15 oz EFW by: Hadlock ([id number]-[id number]-FL) Extended Tibia 56.0 mm 32w 6d 26% Jody Talent Acquisition Associate 3.4 mm CM 9.1 mm 87% Nicolaides [...] Thorax RVOT view. LVOT view. 3-vessel view. 9-koyimx-ufatehq view.Situs. Aortic arch view. Bicaval view. Interventricular [...] documented as of this encounter Care Teams Obstetrician And Gynaecologist Relationship Specialty Start Date End Date Ally Craig, SEWING MACHINE MECHANIC-ACUTE CARE ASSISTANT [address], [place] [address] PCP - General Family Medicine 04/12/18 documented as of this encounter
--- OUTSIDE RECORDS SUMMARY | 2024-11-06 12:00 | XMS_ITS | Encounter Summary ---
Author Organization [facility] [employer] [facility] tem Address [facility] [id number] [address] [place] [address] Care Team Providers Care Grazing Aide Name Role Phone Ally Craig IMCU NURSE-SHOE RECONDITIONER Primary Care Provi collin Reason for Visit * Reason Comments Maternal Hx SVT Encounter Details Date Type Department Care Team (Late st Contact Info) Description 11/06/2024 12:00 PM EDT Office Visit Maternal- Medicine at [facility] [address] [place] [phone] Erlin Urbina MD [address] [facility], [address] [place] [address] History of sleeve gastrectomy (Primary Dx) Social [...] screening Weight gain ALLERGIES: Allergies Allergen Reactions [place] Extract Anaphylaxis CURRENT MEDICATIONS: Current Outpatient Medications: [...] an issue as adult Bipolar 1 disorder ([facility]) more so as child/teenager. No meds [...] tachycardia) 2018 Had ablation. No longer sees stamp press operator Visual impairment glasses REVIEW OF SYSTEMS: Head [...] you for allowing me to participate in [facility]. If there are any questions,please do not hesitate to call me. Sincerely, ERLIN URBINA MD documented in this encounter Plan of Treatment Not on file documented as of this encounter Goals Goal Patient Goal Type Associated Problems Recent Progress Patient-Stated? Author D/C Home General Yes Yaneth Bright, IMCU NURSE-SHOE RECONDITIONER Note: Evaluation of progress towards goal: Pt plans to d/c home with self care and family support. documented as of this encounter Visit Diagnoses Diagnosis History of sleeve gastrectomy- Primary documented in this encounter Additional Health Concerns Assessment Noted Time PHQ-9 Depression Total Score: 19 023 10:14 AM EDT documented as of this encounter Care Teams Grazing Aide Relationship Specialty Start Date End Date Ally Craig, IMCU NURSE-SHOE RECONDITIONER [address], [place] [address] PCP - General Family Medicine 04/12/18 documented as of this encounter
--- OUTSIDE RECORDS SUMMARY | 2024-11-09 09:43 | XMS_ITS ---
Author Name Auto Generated Organization OHIP Support Name Relationship Address Phone DERRICK CHAIREZ MARILOU Next of Kin Unknown [phone] SANTHOSH ORNELAS Next of Kin Unknown + SANTHOSH ORNELAS Next of Kin Unknown + MARILOU MEZA JR Next of Kin Unknown [phone] SANTHOSH ORNELAS Next of Kin Unknown + MARILOU MEZA JR Next of Kin Unknown [phone] SANTHOS[place] ORNELAS Next of Kin Unknown + SANTHOSH ORNELAS Next of Kin Unknown + SANTHOSH ORNELAS Next of Kin Unknown + DERRICK CHAIREZ MARILOU Next of Kin Unknown [phone] DERRICK CHAIREZ MARILOU Next of Kin Unknown +[phone] SANTHOSH ORNELAS Next of Kin Unknown + SANTHOSH ORNELAS Next of Kin Unknown + MEZA JR MARILOU Next of Kin Unknown [phone] MEZA JR MARILOU Next of Kin Unknown [phone] MEZA JR MARILOU Next of Kin Unknown [phone] NOT GIVEN Next [facility] [place] [address] [phone] SANTHOSH ORNELAS Next of Kin Unknown + CONCETTA ORNELAS Next of Kin Unknown Unavailable CONCETTA ORNELAS Next of Kin Unknown Unavailable SANTHOSH ORNELAS Next of Kin Unknown + [place] [address] [phone] RAKAY, SANTHOSH Next of Kin Unknown + RAKAY, CONCETTA Next of Kin Unknown Unavailable RAKAY, CONCETTA Next of Kin Unknown Unavailable RAKAY, SANTHOSH Next of Kin Unknown + [place] [address] [phone] RAKAY, SANTHOSH Next of Kin Unknown + RAKAY, CONCETTA Next of Kin Unknown Unavailable RAKAY, CONCETTA Next of Kin Unknown Unavailable RAKAY, SANTHOSH Next of Kin Unknown + [place] [address] [phone] RAKAY, SANTHOSH Next of Kin Unknown + RAKAY, CONCETTA Next of Kin Unknown Unavailable RAKAY, CONCETTA Next of Kin Unknown Unavailable RAKAY, SANTHOSH Next of Kin Unknown + NOT [place]IV[place] [address] [phone] RAKAY, SANTHOSH Next of Kin Unknown + RAKAY, CONCETTA Next of Kin Unknown Unavailable RAKAY, CONCETTA Next of Kin Unknown Unavailable RAKAY, SANTHOSH Next of Kin Unknown + None, None Next of Kin Unknown + Care Team Providers 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 Name Role Phone RAY PARISH Attending Unavailable RAY PRAISH Referring Unavailable RAY PARISH A Primary Care Unavailable HERNANDEZ, RADHA Attending Unavailable RAY PARISH Referring Unavailable RAY PARISH Primary Care Unavailable HERNANDEZ, RADHA Referring Unavailable RAY PARISH A Primary Care Unavailable RAY PARISH Attending Unavailable RAY PARISH A Referring Unavailable RAY PARISH A Primary Care Unavailable RAY PARISH Referring Unavailable RAY PARISH A Primary Care Unavailable ARMINDA WHITE Referring Unavailable RAY PARISH A Primary Care Unavailable JORDAN URBINA Attending Unavailable CHRISTOPHER, ARMINDA R Referring Unavailable МАРИНА, RAY A Primary Care Unavailable CHRISTOPHER, ARMINDA R Referring Unavailable МАРИНА, RAY A Primary Care Unavailable LIANG FITZGERALD Attending Unavailable МАРИНА, RAY A Referring Unavailable МАРИНА, RAY A Primary Care Unavailable LIALIANG MONGE Referring Unavailable МАРИНА, RAY A Primary Care Unavailable JORDAN URBINA Attending Unavailable CHRISTOPHER, ARMINDA R Referring Unavailable МАРИНА, RAY A Primary Care Unavailable CHRISTOPHER, ARMINDA R Referring Unavailable МАРИНА, RAY A Primary Care Unavailable CIARA, JORDAN Attending Unavailable CHRISTOPHER, ARMINDA R Referring Unavailable МАРИНА, RAY A Primary Care Unavailable NON STAFF Primary Care Unavailable Janna Escalera Attending Unavailable Janna Escalera Admitting Unavailable FAISAL LESLIE Attending Unavailable ANUJ, FAISAL Attending Unavailable CHRISTOPHER, ARMINDA Attending Unavailable CAREY VARGAS Attending Unavailable CHRISTOPHER, ARMINDA Attending Unavailable ANUJFAISAL DENNIS Attending Unavailable CHRISTOPHER, ARMINDA Attending Unavailable PROBLEMS DATE TYPE CONDITION / CODE ATTENDING STATUS [facility] 10/05/2024 Unknown New Patient / FREETEXT(AOF) LIANG FITZGERALD [facility] 09/28/2024 Unknown Encounter for ot her screening follow-up / Z36.2(ICD-10) [facility] 10/01/2020 Unknown Personal history of other diseases of the circulatory system / Z86.79(ICD-10) [facility] 08/24/2024 Unknown Encounter for ot her specified screening / Z36.89(ICD-10) [facility] 03/15/2024 Unknown Abnormal weight gain / R63.5(ICD-10) RAY PARISH [facility] 03/15/2024 Unknown Encounter for sc reening for lipoid disorders / Z13.220(ICD-10) RAY PARISH [facility] 03/15/2024 Unknown Chronic fatigue, unspecified / R53.82(ICD-10) RAY PARISH 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) [facility] Unknown Er Follow-up / FREETEXT(AOF) [facility] PROCEDURES No Procedure Records Found RESULTS CBC AND AUTO DIFF Collected: 03/15/2024 8:00 AM Status: COMPLETED Source: [facility] TYPE CODE TESTS RESULT OUT OF RANGE REFERENCE UNITS LAB WBC(LOINC) WBC COUNT 5.3 4.0-11.0 X10E9/L LAB RBC(LOINC) RBC COUNT 4.13 3.80-5.20 X10E12/L LAB HGB(LOINC) HEMOGLOBIN 12.9 11.7-15.5 g/dL LAB HCT(LOINC) HEMATOCRIT 36.5 35-47 % LAB MCV(LOINC) MCV 88 80-100 fL LAB MCH(LOINC) MCH 31.2 27-34 pg LAB MCHC(LOINC) MCHC 35.4 32-36 g/dL LAB RDW(LOINC) RDW 12.8 11.5-15.0 % LAB PLTC(LOINC) PLATELET COUNT 234 150-450 X10E9 /L LAB MPV(LOINC) MPV 8.5 7-12 fL LAB NEUT(LOINC) % NEUTROPHILS 58.7 % LAB LYMP(LOINC) % LYMPHOCYTES 25.0 % LAB MONO(LOINC) % MONOCYTES 8.4 % LAB EOS(LOINC) % EOSINOPHILS 6.7 % LAB BASO(LOINC) % BASOPHILS 1.2 % LAB ANEUT(LOINC) ABSOLUTE NEUTROPHIL 3.1 1.5-6.6 X10E9/L LAB ALYMP(LOINC) ABSOLUTE LYMPHOCYTE 1.3 1.0-3.5 X10E9/L LAB AMONO(LOINC) ABSOLUTE MONOCYTE 0.4 0-0.9 X10E9/L LAB AEOS(LOINC) ABSOLUTE EOSINOPHIL 0.4 0.0-0.4 X10E9/L LAB ABASO(LOINC) ABSOLUTE BASOPHIL 0.1 0.0-0.2 X10E9/L Performed By: #### CBCA, CMP , FEPR, 34014-1, THYR, 2276-4, 2132-9 #### [facility] ([id number]) [address], [address] [place] [address] COMPREHENSIVE METABOLIC PANEL Collected: 2023 8:00 AM Status: COMPLETED Source: [facility] TYPE CODE TESTS RESULT OUT OF RANGE REFERENCE UNITS LAB NA(LOINC) SODIUM 140 134-146 mmol/L LAB K(LOINC) POTASSIUM 4.2 3.5-5.0 mmol/L LAB CL(LOINC) CHLORIDE 104 98-109 mmol/L LAB CO2(LOINC) CARBON DIOXIDE 27 22-32 mmol/L LAB AGAP(LOINC) ANION GAP 9 5-15 mmol/L LAB BUN(LOINC) BLOOD UREA NITROGEN 10 5-23 mg/dL LAB CRET(LOINC) CREATININE 0.60 0.40-1.00 mg/dL Result Comment: METHOD TRACE ABLE TO IDMS STANDARD LAB GLU(LOINC) GLUCOSE 75 65-99 mg/dL LAB CA(LOINC) CALCIUM 9.3 8.5-10.5 mg/dL LAB TP(LOINC) TOTAL PROTEIN 7.5 6.0-8.0 g/dL LAB ALB(LOINC) ALBUMIN 4.4 3.2-5.3 g/dL LAB ALK(LOINC) ALKALINE PHOSPHATASE 52 39-130 U/L LAB AST(LOINC) AST 19 0-41 U/L LAB ALT1(LOINC) ALT 16 0-31 U/L LAB TBIL(LOINC) BILIRUBIN,TOTAL 0.5 0.3-1.2 mg/d L LAB EGFR(LOINC) eGFR (CKD-EPI) NON-RACE DEPENDENT >90 >59 ml/min/1 .73sq.m Result Comment: Reported eGFR is based on the CKD-EPI 2020 equation that does not use a race coefficient. Performed By: #### CBCA, CMP , FEPR, 24069-5, THYR, 2275-09, 2132-02 #### [facility] ([id number]) [address] [place] [address], [place] [address] IRON PROFILE Collected: 8:00 AM Status: COMPLETED Source: [facility] TYPE CODE TESTS RESULT OUT OF RANGE REFERENCE UNITS LAB FE(LOINC) IRON 126 50-170 ug/dL LAB TIBC(LOINC) IRON BINDING 351 250-425 ug/dL LAB SAT(LOINC) IRON SATURATION 36 15-50 % SATURATION Performed By: #### CBCA, CMP , FEPR, 55113-2, THYR, 4, 2132-02 #### [facility] ([id number]) [address] [place] [address], [place] [address] LIPID PROFILE Collected: 03/15/2024 8:00 AM Status: COMPLETED Source: [facility] TYPE CODE TESTS RESULT OUT OF RANGE REFERENCE UNITS LAB CHOL(LOINC) CHOLESTEROL 164 150-200 mg/dL LAB TRIG(LOINC) TRIGLYCERIDE 115 27-150 mg/dL LAB HDL(LOINC) HDL CHOLESTEROL 57 >39 mg/dL Result Comment: HDL <40 mg/dL - High Risk HDL > or = 40mg/dL- Desirable HDL >60 mg/dL - Negative Risk LAB VLDL(LOINC) VERY LOW LIPOPROTEIN 23 0-30 mg/dL LAB LDL(LOINC) LDL (CALC) 84 <130 mg/dL Result Comment: LDL <100 mg/dL - Desirable LDL >160 mg/dL - High Risk LAB CHDL(LOINC) CHOLESTEROL:HDL 2.9 1.0-5.0 Performed By: #### CBCA, CMP , FEPR, 71777-7, THYR, 2276-4, 2132-02 #### [facility] ([id number]) [address] [place] [address] THYROID PROFILE Collected: 03/15/2024 8:00 AM Status: COMPLETED Source: [facility] TYPE CODE TESTS RESULT OUT OF RANGE REFERENCE UNITS LAB TSH(LOINC) TSH 2.68 0.49-4.67 uIU/mL LAB FT4(LOINC) FREE T4 0.74 0.61-1.60 ng/dL Performed By: #### CBCA, CMP , FEPR, 31354-9, THYR, 2275-4, 2132-02 #### [facility] ([id number]) [address] [place] [address] FERRITIN Collected: 03/15/2024 8:00 AM S tatus: COMPLETED Source: [facility] TYPE CODE TESTS RESULT OUT OF RANGE REFERENCE UNITS LAB FERR(LOINC) FERRITIN 55 11-307 ng/mL Performed By: #### CBCA, CMP , FEPR, 94603-9, THYR, 6-4, 2132-02 #### [facility] ([id number]) [address] [place], [place] [address] VITAMIN B12 Collected: 03/15/2024 8:00 AM S tatus: COMPLETED Source: [facility] TYPE CODE TESTS RESULT OUT OF RANGE REFERENCE UNITS LAB B12(LOINC) VITAMIN B12 537 180-914 pg/mL Performed By: #### CBCA, CMP , FEPR, 30313-4, THYR, 2276-4, 2132-9 #### [facility] ([id number]) [address] [place] [address], [address] [place] [address] URINE CULTURE Observed: 01/20/2024 11:53 AM Status: COMPLETED Source: [facility] CULTURE RESULTS >100,000 ORGANISMS/mL ESCHERICHIA COLI [ [...] S <=4 F TOBRAMYCIN S <=1 F TRIMETH/SULFAMETHOXAZOLE R >=16/304 F Performed By: #### 630-4 ### # [facility] ([id number]) [address] [place] [address], [address] [place] [address] BASIC METABOLIC ZAMORA W/RFX A1C Collected: 12/08/2023 1 :35 PM Status: F Source: [facility] TYPE CODE TESTS RESULT OUT OF RANGE REFERENCE UNITS LAB EBS GLUCOSE Glucose, Employee SCR 83 Normal 70-100 mg/dL LAB BUN Blood Urea Nitrogen 14 Normal 7-25 mg/dL LAB CREATT Creatinine 0.69 Normal 0.60-1.20 mg/dL LAB GFReNR Estimated GFR > 60.0 LAB NA Sodium 141 Normal 136-145 mmol/L LAB K Potassium 3.6 Normal 3.5-5.1 mmol/L LAB CL Chloride 105 Normal 98-107 mmol/L LAB CO2 Carbon Dioxide 29.1 Normal 21.0-31.0 mmol/L LAB GAP Anion Gap 10.5 Normal 6.0-15.0 LAB CA Calcium 9.5 Normal 8.6-10.3 mg/dL Performed By: #### EBS LIPID , EMP BMP #### [address] LIPID PROFILE Collected: 12/08/2023 1:35 PM Status: F Source: [facility] TYPE CODE TESTS RESULT OUT OF RANGE REFERENCE UNITS LAB CHOL Cholesterol 163 Normal 140-200 mg/dL Result Comment: Chol less th an 200 mg/dl low risk Chol 201-239 mg/dl borderline risk Chol 240 mg/dl and greater high risk LAB HDL HDL Cholesterol 62 Normal 23-92 mg/dL Result Comment: HDL CHOL ATP -III CLASSIFICATION Cardiovascular Risk HDL > or equal to 60 mg/dL LOW HDL < 40 mg/dL HIGH LAB TRIG W REFEBS Triglyceride w/Reflex 87 Normal 0-149 mg/dL Result Comment: TRIG ATP III CLASSIFICATION TRIG less than 150 mg/dL Normal TRIG 150-199 mg/dL Borderline high TRIG 200-500 mg/dL High TRIG greater than 500 mg/dL Very high Standard traceable to the Center for Disease Conrtrol and Prevention (CDC) test method. LAB LDLC LDL Cholesterol,Calc ulated 84 Normal 0-100 mg/dL Result Comment: LDL ATP III CLASSIFICATION LDL less than 100 mg/dL Optimal LDL 100-129 mg/dL Near or above optimal LDL 130-159 mg/dL Borderline high LDL 160-189 mg/dL High LDL greater than 189 mg/dL Very high LAB VLDL VLDL CHOLESTEROL 17 mg/dL LAB CHLHDL Chol/HDL Ratio 2.6 <5.0 Result Comment: PERFORMED BY : [place] [address] PATHOLOGIST GASKET SUPERVISOR CHERYL GEORGE M.D. Performed By: #### EBS LIPID , EMP BMP #### [address] ALLERGIES DATE TYPE / CODE NAME / CODE REACTION SEVERITY SOURCE 10/20/2023 Drug Allergy/202111 002(SNOMED CT) No Known Allergies/[id number] (RXNORM) Unknown [facility] 02/01/2019 DRUG INGREDI/086821 003(SNOMED CT) STRAWBERRY EXTRACT Anaphylaxis High [facility] Drug Class/44025420 3(SNOMED CT) NO KNOWN ALLERGIES [facility] ENCOUNTERS ADMIT/DISCHARGE ACCOUNT NUMBER ADMITTING ENCOUNTER CLASS LOCATION SOURCE 11/09/2024/11/10/19 [id number] Ambulatory Building:NOM S BCP OB [facility] 11/06/2024/11/07/19 25 [id number] Ambulatory Buildin 4 [facility] 11/06/2024/11/07/19 25 [id number] Ambulatory Building:[facility] 10/25/2024/10/26/19 25 [id number] Ambulatory Building:NOM S BCP OB [facility] 10/20/2024/10/21/19 25 [id number] Ambulatory Buildin 4 [facility] 10/11/2024/10/12/19 25 [id number] Ambulatory Building:NOM S [facility] OB [facility] 10/05/2024/10/28/19 25 [id number] Ambulatory Buildin 1 [facility] 10/05/2024/10/06/19 25 [id number] Ambulatory Buildin 1 [facility] 09/28/2024/09/29/19 25 [id number] Ambulatory Building:[facility] 09/26/2024/09/27/19 25 [id number] Ambulatory Building:NOM S BCP OB [facility] 08/29/2024/08/30/19 25 [id number] Ambulatory Building:NOM S [facility] OB [facility] 08/24/2024/08/25/19 25 [id number] Ambulatory Buildin 4 [facility] 08/24/2024/08/25/19 25 [id number] Ambulatory Building:[facility] 07/31/2024/07/31/19 25 [id number] Ambulatory Building:NOM S BCP OB [facility] 06/15/2024/06/15/20 24 [id number] Ambulatory Building:NOM S BCP OB [facility] 05/29/2024/05/29/20 24 [id number] Ambulatory Building:NOM S BCP OB [facility] 03/15/2024/03/15/20 24 [id number] Ambulatory Building:PTH [facility] 03/15/2024/03/15/20 24 [id number] Ambulatory Buildin A [facility] 01/20/2024/01/20/20 24 [id number] Ambulatory Building:PTH _PML [facility] 01/20/2024/01/20/20 24 [id number] Ambulatory Buildin A [facility] 12/22/2023/12/22/19 24 [id number] Ambulatory Buildin A [facility] 12/08/2023/12/08/19 24 [id number] [facility] PAYERS ENCOUNTER GUARANTOR PAYER SUBSCRIBER SOURCE 11/09/2024 MADDIE ALMEIDA: [place], [place] [address]Itu: (HP) Primary Insurance:MEDICAL MUTUALPolicy Number: [id number] Date:2024-01-20 MADDIE CHOUOB: [id number] [place] [address] [facility] EPIC 11/09/2024 Secondary Insurance:[employer] MEDICAIDPolicy Number: [id number] Date:2023-09-14 MADDIE CHOUOB: [id number] [place] [address] [facility] EPIC 11/06/2024 MADDIE CHOUOB: [place], [place] [address]Qxl: (HP) Primary Insurance:[facility] SUPERMEDPolicy Number: [id number] Date:2024-01-20 MADDIE CHOUOB: [id number] [place], [place] [address]Ysr: () [facility] 11/06/2024 Secondary Insurance:[facility] COMMUNITY PLANPolicy Number: [id number] Date:2022-06-21 MADDIE CHOUOB: [id number] [place], [place] [address]Epv: (WP) [facility] 11/06/2024 MADDIE CHOUOB: [place], [place] [address]Zsk: (HP) Primary Insurance:[facility] SUPERMEDPolicy Number: [id number] Date:2024-01-20 MADDIE CHOUOB: [id number] [place], [place] [address]Mch: (WP) [facility] 11/06/2024 Secondary Insurance:[facility] PLANPolicy Number: [id number] Date:2022-06-21 MADDIE CHOUOB: [id number] [place], [place] [address]Vjs: (WP) [facility] 10/25/2024 MADDIE CHOUOB: [place], [place] [address]Bqv: (HP) Primary Insurance:MEDICAL MUTUALPolicy Number: [id number] Date:2024-01-20 MADDIE CHOUOB: [id number] [place] [address] [facility] 10/25/2024 Secondary Insurance:[employer] MEDICAIDPolicy Number: [id number] Date:2023-09-14 MADDIE CHOUOB: [id number] [place] [address] [facility] 10/20/2024 MADDIE CHOUOB: [place], [place] [address]Cih: (HP) Primary Insurance:[facility] SUPERMEDPolicy Number: [id number] Date:2024-01-20 MADDIE CHOUOB: [id number] [place], [place] [address]Ako: (WP) [facility] 10/20/2024 Secondary Insurance:[facility] PLANPolicy Number: [id number] Date:2022-06-21 MADDIE CHOUOB: [id number] [place], [place] [address]Zsq: (WP) [facility] 10/11/2024 MADDIE CHOUOB: [place], [place] [address]Nwa: (HP) Primary Insurance:MEDICAL MUTUALPolicy Number: [id number] Date:2024-01-20 MADDIE CHOUOB: [id number] [place] [address] [facility] 10/11/2024 Secondary Insurance:[employer] MEDICAIDPolicy Number: [id number] Date:2023-09-14 MADDIE CHOUOB: [id number] [place] [address] [facility] 10/05/2024 MADDIE CHOUOB: [place], [place] [address]Qnj: (HP) Primary Insurance:[facility] PLANPolicy Number: [id number] Date:2022-06-21 MADDIE CHOUOB: [id number] [place], [place] [address]Sva: (WP) [facility] 10/05/2024 Secondary Insurance:[facility] SUPERMEDPolicy Number: [id number] Date:2024-01-20 MADDIE CHOUOB: [id number] [place], [place] [address]Bmj: (WP) [facility] 10/05/2024 MADDIE CHOUOB: [place], [place] [address]Xgq: (HP) Primary Insurance:[facility] PLANPolicy Number: [id number] Date:2022-06-21 MADDIE CHOUOB: [id number] [place], [place] [address]Vfe: () [facility] 10/05/2024 Secondary Insurance:[facility] SUPERMEDPolicy Number: [id number] Date:2024-01-20 MADDIE CHOUOB: [id number] [place], [place] [address]Iuv: (WP) [facility] 09/28/2024 MADDIE CHOUOB: [place], [place] [address]Obi: (HP) Primary Insurance:[facility] PoikosMEDPolicy Number: [id number] Date:2024-01-20 MADDIE CHOUOB: [id number] [place], [place] [address]Zvx: (WP) [facility] 09/28/2024 Secondary Insurance:[facility] PLANPolicy Number: [id number] Date:2022-06-21 MADDIE CHOUOB: [id number] [place], [place] [address]Fby: (WP) [facility] 09/26/2024 MADDIE CHOUOB: [place], [place] [address]Hxy: (HP) Primary Insurance:MEDICAL MUTUALPolicy Number: [id number] Date:2024-01-20 MADDIE C MELANIEMIOB: [id number] [place] [address] [facility] 09/26/2024 Secondary Insurance:[employer] MEDICAIDPolicy Number: [id number] Date:2023-09-14 MADDIE C JOSÉ ANTONIOOB: [id number] [place] [address] [facility] 08/29/2024 MADDIE CHOUOB: [place], [place] [address]Bfn: (HP) Primary Insurance:MEDICAL MUTUALPolicy Number: [id number] Date:2024-01-20 MADDIE CHOUOB: [id number] [place] [address] [facility] 08/29/2024 Secondary Insurance:[employer] MEDICAIDPolicy Number: [id number] Date:2023-09-14 MADDIE CHOUOB: [id number] [place] [address] [facility] 08/24/2024 MADDIE CHOUOB: [place], [place] [address]Wcq: (HP) Primary Insurance:[facility] SUPERMEDPolicy Number: [id number] Date:2024-01-20 MADDIE CHOUOB: [id number] [place], [place] [address]Acg: () [facility] 08/24/2024 Secondary Insurance:[facility] PLANPolicy Number: [id number] Date:2022-06-21 MADDIE CHOUOB: [id number] [place], [place] [address]Tjn: (WP) [facility] 08/24/2024 MADDIE CHOUOB: [place], [place] [address]Wzc: (HP) Primary Insurance:[facility] SUPERMEDPolicy Number: [id number] Date:2024-01-20 MADDIE CHOUOB: [id number] [place], [place] [address]Psp: (WP) [facility] 08/24/2024 Secondary Insurance:[facility] PLANPolicy Number: [id number] Date:2022-06-21 MADDIE CHOUOB: [id number] [place], [place] [address]Kgw: () [facility] 07/31/2024 MADDIE CHOUOB: [place], [place] [address]Jgf: (HP) Primary Insurance:MEDICAL MUTUALPolicy Number: [id number] Date:2024-01-20 MADDIE CHOUOB: [id number] [place] [address] [facility] EPIC 07/31/2024 Secondary Insurance:[facility] MEDICAIDPolicy Number: [id number] Date:2023-09-14 MADDIE CHOUOB: [id number] [place] [address] [facility] EPIC 06/15/2024 MADDIE CHOUOB: [place], [place] [address]Whn: (HP) Primary Insurance:MEDICAL MUTUALPolicy Number: [id number] Date:2024-01-20 MADDIE CHOUOB: [id number] [place] [address] [facility] EPIC 06/15/2024 Secondary Insurance:[facility] MEDICAIDPolicy Number: [id number] Date:2023-09-14 MADDIE CHOUOB: [id number] [place] [address] [facility] EPIC 05/29/2024 MADDIE CHOUOB: [place], [place] [address]Fus: (HP) Primary Insurance:MEDICAL MUTUALPolicy Number: [id number] Date:2024-01-20 MADDIE CHOUOB: [id number] [place] [address] [facility] EPIC 05/29/2024 Secondary Insurance:[facility] MEDICAIDPolicy Number: [id number] Date:2023-09-14 MADDIE CHOUOB: [id number] [place] [address] [facility] [facility] 03/15/2024 MADDIE CHOUOB: [place], [place] [address]Rxq: (HP) Primary Insurance:[facility] SUPERMEDPolicy Number: [id number] Date:2024-01-20 MADDIE CHOUOB: [id number] [place], [place] [address]Hek: (HP) (WP) [facility] 03/15/2024 Secondary Insurance:[facility] PLANPolicy Number: [id number] Date:2022-06-21 MADDIE CHOUOB: [id number] [address] [address]Xdv: (HP) (WP) [facility] 03/15/2024 MADDIE CHOUOB: [place], [place] [address]Fsj: (HP) Primary Insurance:[facility] PLANPolicy Number: [id number] Date:2022-06-21 MADDIE CHOUOB: [id number] [address] [address]Edd: (HP) (WP) [facility] 03/15/2024 Secondary Insurance:[facility] SUPERMEDPolicy Number: [id number] Date:2024-01-20 MADDIE CHOUOB: [id number] [place], [place] [address]Xgq: (HP) (WP) [facility] 01/20/2024 MADDIE CHOUOB: [place], [place] [address]Tde: (HP) Primary Insurance:[facility] PLANPolicy Number: [id number] Date:2022-06-21 MADDIE CHOUOB: [id number] [address] [address]Yfu: (HP) () [facility] 01/20/2024 MADDIE CHOUOB: [place], [place] [address]Wqd: (HP) Primary Insurance:[facility] PLANPolicy Number: [id number] Date:2022-06-21 MADDIE CHOUOB: [id number] [address] [address]Zuy: (HP) () [facility] 12/22/2023 MADDIE CHOUOB: [place], [place] [address]Otk: (HP) Primary Insurance:[facility] PLANPolicy Number: [id number] Date:2022-06-21 MADDIE CHOUOB: [id number] [address]Rlx: (HP) () [facility] 12/08/2023 [address]ie [address] [place], [place] [address]Nuu: (HP) Primary Insurance:Self PayPolicy Number: Effective Date:2023-12-02 [facility]
--- OUTSIDE RECORDS SUMMARY | 2024-11-09 09:50 | XMS_ITS | Encounter Summary ---
Author Organization [facility] Address [address] [facility] [place] [address] Care Team Providers Care Director Equipment Name Role Phone Unavailable Primary Care Provider Unavailabl e Reason for Visit * Reason Comments Routine Visit Encounter Details Date Type Department Care Team (Late st Contact Info) Description 11/09/2024 9:50 AM EDT Routine [facility] BCP OB [address] [place] [address] Zoraida Travis PA [address] [place] [address] 35 weeks gestation of ; Third trimester Social History Tobacco Use Types Packs/Day Years Used Date Smoking Tobacco: Never Smokeless Tobacco: Never Estimated Date of Delivery Comme nts Yes 12/14/2024 Based on Ultraso und Sex and Gender Information Value Date Recorded Sex Assigned at Female 11/17/2022 10:51 AM EDT Legal Sex Female 7:58 PM EDT Gender Identity Female 11/17/2022 10:51 AM EDT Sexual Orientation Not on file documented as of this encounter Last Filed Vital Signs Vital Sign Reading Time Taken Comments Blood Pressure 112/76 11/09/2024 10:02 AM EDT Pulse - - Temperature - - Respiratory Rate - - Oxygen Saturation - - Inhaled Oxygen Concentration - - Weight 123 kg (270 lb 8 oz) 11/09/2024 10:02 AM EDT Height - - Body Mass Index 45.01 11/24/2022 9:10 AM EDT documented in this encounter Progress Notes * JULIETTE Zuniga - 11/09/2024 9:50 AM EDT Reason for Appointment: Patient ID: Jana Raman is a 29 y.o. female who presents for Routine Visit Patient presents today for Return OB appointment. MEDICATIONS Current Outpatient Medications Medication Instructions busPIRone (Buspar) 15 MG tablet 2 times daily Cyanocobalamin 1000 MCG/ML kit 1 mL, Injection, Every 30 days omeprazole OTC (PRILOSEC OTC) 20 mg, Daily RT MV-Min-Fe Fum-FA-DHA ( 1 PO) ALLERGIES No [...] Exam Constitutional: Appearance: Normal appearance. She is normal weight. HENT: Head: Normocephalic. Cardiovascular: Rate and Rhythm: Normal rate. Pulses: Normal pulses. Pulmonary: Effort: Pulmonary effort is normal. Breath sounds: Normal breath sounds. Abdominal: Palpations: Abdomen is soft. Musculoskeletal: General: Normal range of motion. Neurological: General: No focal deficit present. Mental Status: She is alert and oriented to person, place, and time. Psychiatric: Mood and Affect: Mood normal. Behavior: Behavior normal. Thought Content: Thought content normal. Judgment: Judgment normal. Vitals and nursing note reviewed. Vitals: Estimated body mass index is 45.01 kg/m?? as calculated from the following: Height as of 11/24/22: 5' 5 . Weight as of this encounter: 270 lb 8 oz. BP: 112/76 No LMP recorded. Patient is . ASSESSMENT & PLAN ICD-10-CM 1. 35 weeks gestation of Z3A.35 POCT urinalysis dipstick manually resulted 2. Third trimester Z34.93 Return OB: Patient presents today for a routine obstetrics appointment. Patient is currently 35w0d . Patient states she is doing well but has complaints of being tired due to current . Patient has verbalizes frequent movement. labor precautions was discussed/given and patient was instructed to perform kick counts three times a day. Orders Placed This Encounter Procedures POCT urinalysis dipstick manually resulted Follow Up: Patient is to return to office in 1 week for routine OB appointment. Documented by JULIETTE Zuniga on behalf of: JULIETTE Zuniga documented in this encounter Plan of Treatment Upcoming Encounters Date Type Department Care Team (Late st Contact Info) Description 11/14/2024 1:50 PM EDT Routine [facility] BCP OB [address] [place] [phone] AlanaCedric ye, DO [address] [place], [place] [id number] documented as of this encounter Procedures Procedure Name Priority Date/Time Associated Diagnosis Comments POCT URINALYSIS DIPSTICK Routine 11/09/2024 10:11 AM EDT 35 weeks gestation of documented in this encounter Results * (ABNORMAL) POCT urinalysis dipstick manually resulted (11/09/2024 10:11 AM EDT) Color, UA Yellow Clarity, UA Clear Glucose, UA Negative Negative - 2000(110) ++++ mg/dL Bilirubin, UA Negative Negative - 4(70) +++ mg/dL Ketones, UA Negative Negative - 160(16) ++++ mg/dL Spec Grav, UA 1.025 1 - 1.03 Blood, UA Negative Negative - 50 Miguel Angel/mcL pH, UA 7.0 5 - 9 Protein, UA Positive Negative - 2000(20) ++++ mg/dL Comment:30mg/dL Urobilinogen, UA 1.0 0.2 - 12 mg/dL Leukocytes, UA Negative Negative - 500+++ Eleonora/mcL Nitrite, UA Negative Negative - Positive Urine 11/09/2024 10:1 1 AM EDT Zoraida SEGOVIA POINT OF CARE TEST ENTER/EDIT OR DERABLES Final Result documented in this encounter Visit Diagnoses Diagnosis 35 weeks gestation of Third trimester state, incidental documented in this encounter
--- OUTSIDE RECORDS SUMMARY | 2024-11-10 14:55 | XMS_ITS | Encounter Summary ---
Author Organization [facility] tem Address [id number] [address] [place] [address] Care Team Providers Care Extension Service Supervisor Name Role Phone KiaraAlly stevenson CHILD CARE LEAD TEACHER-VETERINARY TECHNOLOGIST Primary Care Provi collin Encounter Details Date Type Department Care Team (Late st Contact Info) Description 08/14/2024 Orders Only Maternal- Medicine at [facility] [address] [place] [address] Cedric Warner R, DO [address] [facility] [place] [address] Social History Tobacco Use Types Packs/Day Years [...] got money to buy more. Never True 06/07/2023 Within the past 12 months th e food we bought just didn't last and we didn't have money to get more. Never True 06/07/2023 Purpose - Life Answer Date Recorded Purpose [...] Author D/C Home General Yes Yaneth Bright, CHILD CARE LEAD TEACHER-VETERINARY TECHNOLOGIST Note: Evaluation of progress towards goal: Pt plans to d/c home with self care and family support. documented as of this encounter Procedures Procedure Name Priority Date/Time Associated Diagnosis Comments UNLISTED LAB TEST Routine 06/12/2024 11:04 AM EST documented in this encounter Results * Unlisted Lab Test (06/12/2024 11:04 AM EST) us Cedric Warner DO LAB BLOOD ORDERABLES Final Resu lt MANUALLY TRANSCRIBED RESULTS documented in this encounter Visit Diagnoses Not on filedocumented in this encounter Additional Health Concerns Assessment Noted Time PHQ-9 Depression Total Score: 19 023 10:14 AM EDT documented as of this encounter Care Teams Extension Service Supervisor Relationship Specialty Start Date End Date Ally Craig, CHILD CARE LEAD TEACHER-VETERINARY TECHNOLOGIST [address], [place] [address] PCP - General Family Medicine 04/12/18 documented as of this encounter
--- OUTSIDE RECORDS SUMMARY | 2024-11-10 14:55 | XMS_ITS | Encounter Summary ---
Author Organization [facility] Address [address] [place] [address] Care Team Providers Care Medical Grade Shoemaker Name Role Phone Unavailable Primary Care Provider Unavailabl e Encounter Details Date Type Department Care Team (Late st Contact Info) Description 10/30/2024 Clinisync Result Encounter [facility] External Department Unsolicited Arminda Warner, DO [address], [place] [phone] Social History Tobacco Use Types Packs/Day Years [...] as of this encounter Plan of Treatment Upcoming Encounters Date Type Department Care Team (Late st Contact Info) Description 11/14/2024 1:50 PM EDT Routine [facility] OB [address] [facility] [place] [address] Arminda Warner, DO [address] [place] [address] documented as of this encounter Procedures Procedure Name Priority Date/Time Associated Diagnosis Comments US OB BPP W NON-STRESS 10/30/2024 9:28 AM EDT documented in this encounter Results * US OB BPP W NON-STRESS (10/30/2024 9:28 AM EDT) Anatomical Region Laterality Modality Other 10/30/2024 9:28 AM EDT Narrative 10/30/2024 9:31 AM EDT [address] [address] Ultrasound Report Signed Patient: MADDIE RAMAN MR#: [id number] : 1995 Acct:[id number] Age/Sex: 29 / F ADM Date: 10/27/24 Loc: US Attending Dr: Arminda Warner D.O. Ordering Physician: Arminda Warner D.O. Date of Service: 10/27/24 Procedure(s): US OB BPP w non-stress Accession Number(s): [id number] cc: Arminda Warner D.O.; Ally Craig NP [place] [address] Patient Name: MADDIE RAMAN MRN: [id number] date: 1995 Sex: F Assigned Patient Location: US Current Patient Location: Accession/Order Number: [id number] Exam Date: 10/30/2024 09:26 Report Date: 10/30/2024 09:28 At the request of: ARMINDA WARNER DO Procedure: US OB BPP w non-stress BIOPHYSICAL PROFILE: CLINICAL INFORMATION: HISTORY OF GASTRIC SLEEVE Z 90.3 COMPARISON: 08/05/2024 There is a single live intrauterine gestation in cephalic presentation. The reported gestational age is 33 weeks 1 day. The heart rate [id number] beats per minute. FINDINGS: TONE: 1 or [...] Jensen M.D. 10/30/2024 9:28 AM Dictation Location: [place] [address] Electronically authenticated by: [id number] Y Date: 10/30/2024 09:28 Dictated By: Smita Jensen M.D. Signed By: 10/30/24930 DD/ 7 TD/TT: Handmade Tile Artist: Procedure Note Radiology, Radiologist, - 10/30/2024 [place] [address] Ultrasound Report Signed Patient: MADDIE RAMAN CMR#: [id number] : 1995Acct:[id number] Age/Sex: 29 / FADM Date: 10/27/24 Loc: US Attending Dr: Arminda Warner D.O. Ordering Physician: Arminda Warner D.O. Date of Service: 10/27/24 Procedure(s): US OB BPP w non-stress Accession Number(s): [id number] cc: Arminda Warner D.O.; Ally Craig NP The [place] [address] Patient Name: MADDIE RAMAN MRN: [facility]:[id number] date: 1995 Sex: F Assigned Patient Location: US Current Patient Location: Accession/Order Number: [id number] Exam Date: 10/30/2024 09:26 Report Date: 10/30/2024 09:28 At the request of: ARMINDA WARNER DO Procedure: US OB BPP w non-stress BIOPHYSICAL PROFILE: CLINICAL INFORMATION: HISTORY OF GASTRIC SLEEVE Z 90.3 COMPARISON: 08/05/2024 There is a single live intrauterine gestation in cephalic presentation.The reported gestational age is 33 weeks 1 day. The heart [id number] beats per minute. FINDINGS: TONE: 1 or more episodes of activity extension and flexion of extremity or opening and closing of the hand [Y] 2/2 GROSS BODY MOVEMENTS: 3 or more discrete body or limb movements [Y] 2/2 BREATHING MOVEMENTS: 1 or more episodes of breathing lastingat least 30 seconds [Y] 2/2 LANETTE: A single deepest vertical pocket of amniotic fluid greater than 2 cm [Y] 2/2 LANETTE: 10.5 cm. This is in low-normal range. Total score: 8/ US/US OB BPP w non-stress IMPRESSION: NORMAL BIOPHYSICAL PROFILE. Impression dictated by: Smita Jensen M.D. 10/30/2024 9:28 AM Dictation Location: [place] [address] Electronically authenticated by: [id number] Y Date: 9:28 Dictated By: Smita Jensen M.D. Signed By:10/30/2431 DD/ 7 TD/TT: Handmade Tile Artist: Arminda Alana DO [facility] Final Result documented in this encounter Visit Diagnoses Not on filedocumented in this encounter
--- OUTSIDE RECORDS SUMMARY | 2024-11-10 14:55 | XMS_ITS | Encounter Summary ---
Author Organization [facility] tem Address [id number] [address] [place] [address] Care Team Providers Care Plant Reliability Engineer Name Role Phone Ally Craig PROGRAM REVIEW DIRECTOR-SHELLFISH MANAGER Primary Care Provi collin Encounter Details Date Type Department Care Team (Late st Contact Info) Description 08/24/2024 Orders Only Maternal- Medicine at [facility] [address] [place] [phone] Zoraida Butcher LPN Social History Tobacco Use Types Packs/Day Years [...] Author D/C Home General Yes Yaneth Bright APRN-SHELLFISH MANAGER Note: Evaluation of progress towards goal: Pt plans to d/c home with self care and family support. documented as of this encounter Visit Diagnoses Not on filedocumented in this encounter Additional Health Concerns Assessment Noted Time PHQ-9 Depression Total Score: 19 023 10:14 AM EDT documented as of this encounter Care Teams Plant Reliability Engineer Relationship Specialty Start Date End Date Ally Craig, RAFA-SHELLFISH MANAGER [address], [place] [address] PCP - General Family Medicine 04/12/18 documented as of this encounter
--- OUTSIDE RECORDS SUMMARY | 2024-11-10 14:55 | XMS_ITS | Encounter Summary ---
Author Organization [facility] Address [address] [place] [address] Care Team Providers Care Music Intern Name Role Phone Unavailable Primary Care Provider Unavailabl e Encounter Details Date Type Department Care Team (Late st Contact Info) Description 05/13/2024 Clinisync Result Encounter [facility] External Department Unsolicited Arminda Warner, DO [address] [place], [place] [phone] Social History Tobacco Use Types Packs/Day Years Used Date Smoking Tobacco: Never Smokeless Tobacco: Never Comments Unknown Sex and Gender Information Value Date Recorded Sex Assigned at Female 11/17/2022 10:51 AM EDT Legal Sex Female 7:58 PM EDT Gender Identity Female 11/17/2022 10:51 AM EDT Sexual Orientation Not on file documented as of this encounter Plan of Treatment Upcoming Encounters Date Type Department Care Team (Late st Contact Info) Description 11/14/2024 1:50 PM EDT Routine [facility] BCP OB [address] [facility] [place] [address] Arminda Warner, DO [address] [place] [address] documented as of this encounter Procedures Procedure Name Priority Date/Time Associated Diagnosis Comments US OB TRANSVAGINAL 05/13/2024 8: 59 AM EST documented in this encounter Results * US OB TRANSVAGINAL (05/13/2024 8:59 AM EST) Anatomical Region Laterality Modality Other 05/13/2024 8:59 AM EST Narrative 05/13/2024 9:02 [place] [address] Ultrasound Report Signed Patient: MADDIE RAMAN MR#: [id number] : 1995 Acct:[id number] Age/Sex: 28 / F ADM Date: 05/13/24 Loc: US Attending Dr: Arminda Warner D.O. Ordering Physician: Arminda Warner D.O. Date of Service: 05/13/24 Procedure(s): US OB transvaginal Accession Number(s): [id number] cc: Arminda Warner D.O.; Ally Craig NP [place] [address] Patient Name: MADDIE RAMAN MRN: [facility]:[id number] date: 1995 Sex: F Assigned Patient Location: US Current Patient Location: US Accession/Order Number: [id number] Exam Date: 05/13/2024 08:04 Report Date: 05/13/2024 08:59 At the request of: ARMINDA WARNER Procedure: US OB transvaginal EXAMINATION: US OB transvaginal HISTORY: MISSED MENSES COMPARISON: No relevant comparison available. FINDINGS: GESTATIONAL SAC: Present and normal appearing. YOLK SAC: Present and normal appearing. POLE: Present and normal appearing. CARDIAC: Present. UTERUS: Small subchorionic hematoma(s). OVARIES: Right: Not seen. Left: Normal. CERVIX: Approximately 3.3 cm in length and closed. CUL-DE-SAC: Normal. OTHER: None. AGE BY LMP: Unknown LMP MERLINE BY LMP: AGE BY US CRL: 9 weeks 2 days MERLINE BY US CRL: 12/14/2024 US/US OB transvaginal IMPRESSION: 1. Single live intrauterine 9 weeks 2 days by today's ultrasound. Electronically authenticated by: ARCADIO NEVAREZ Date: 05/13/2024 08:59 Dictated By: Arcadio Nevarez M.D. Signed By: 05/13/2402 DD/ 0859 TD/TT: Metalizing Supervisor: Procedure Note Radiology, Radiologist, MD - 05/13/2024 [place] [address] Ultrasound Report Signed Patient: MADDIE RAMAN CMR#: [id number] : 1995Acct:[id number] Age/Sex: 28 / FADM Date: 05/13/24 Loc: US Attending Dr: Arminda Warner D.O. Ordering Physician: Arminda Warner D.O. Date of Service: 05/13/24 Procedure(s): US OB transvaginal Accession Number(s): [id number] cc: Arminda Warner D.O.; Ally Craig NP [address] [place] [address] Patient Name: MADDIE RAMAN MRN: [id number] date: 1995 Sex: F Assigned Patient Location: US Current Patient Location: US Accession/Order Number: [id number] Exam Date: 05/13/2024 08:04 Report Date: 05/13/2024 08:59 At the request of: ARMINDA WARNER Procedure: US OB transvaginal EXAMINATION: US OB transvaginal HISTORY: MISSED MENSES COMPARISON: No relevant comparison available. FINDINGS: GESTATIONAL SAC: Present and normal appearing. YOLK SAC: Present and normal appearing. POLE: Present and normal appearing. CARDIAC: Present. UTERUS: Small subchorionic hematoma(s). OVARIES: Right: Not seen. Left: Normal. CERVIX: Approximately 3.3 cm in length and closed. CUL-DE-SAC: Normal. OTHER: None. AGE BY LMP: Unknown LMP MERLINE BY LMP: AGE BY US CRL: 9 weeks 2 days MERLINE BY US CRL: 12/14/2024 US/US OB transvaginal IMPRESSION: 1. Single live intrauterine 9 weeks 2 days by today'woody. Electronically authenticated by: ARCADIO NEVAREZ Date: 05/13/2024 08:59 Dictated By: Arcadio Nevarez M.D. Signed By:05/13/24 0902 DD/ 0859 TD/TT: Metalizing Supervisor: us Arminda Warner DO [facility] Final Result documented in this encounter Visit Diagnoses Not on filedocumented in this encounter
--- OUTSIDE RECORDS SUMMARY | 2024-11-10 14:55 | XMS_ITS | Encounter Summary ---
Author Organization [facility] Address [address] [place] [address] Care Team Providers Care Bank Officer Name Role Phone Unavailable Primary Care Provider Unavailabl e Encounter Details Date Type Department Care Team (Late st Contact Info) Description 08/24/2024 Abstract [facility] BCP OB [address] [place] [address] Cedric Warner DO [address], [facility] Social History Tobacco Use Types Packs/Day Years [...] PM EDT Routine [facility] BCP OB [address] [place] [address] Cedric Warner DO [facility] [address], [place] [id number] documented as of this encounter Visit Diagnoses Not on filedocumented in this encounter
--- OUTSIDE RECORDS SUMMARY | 2024-11-10 14:55 | XMS_ITS | Encounter Summary ---
Author Organization [facility] Address [address] [place] [address] Care Team Providers Care Crankshaft Straightener Name Role Phone Unavailable Primary Care Provider Unavailabl e Encounter Details Date Type Department Care Team (Late st Contact Info) Description 11/03/2024 Clinisync Result Encounter [facility] External Department Unsolicited Arminda Warner, DO [address], [place] [id number] Social History Tobacco Use Types Packs/Day Years [...] EDT Routine [facility] [address] [facility] [place] [id number] Amrinda Warner, DO [address] [place] [address] documented as of this encounter Procedures Procedure Name Priority Date/Time Associated Diagnosis Comments US OB BPP W NON-STRESS 11/03/2024 4:13 PM EDT documented in this encounter Results * US OB BPP W NON-STRESS (11/03/2024 4:13 PM EDT) Anatomical Region Laterality Modality Other 11/03/2024 4:13 PM EDT Narrative 11/03/2024 4:16 PM EDT [address] [address] Ultrasound Report Signed Patient: MADDIE RAMAN MR#: [id number] : 1995 Acct:[id number] Age/Sex: 29 / F ADM Date: 11/03/24 Loc: US Attending Dr: Arminda Warner D.O. Ordering Physician: Arminda Warner D.O. Date of Service: 11/03/24 Procedure(s): US OB BPP w non-stress Accession Number(s): [id number] cc: Arminda Warner D.O.; Ally Craig NP [place] [address] Patient Name: MADDIE RAMAN MRN: [id number] date: 1995 Sex: F Assigned Patient Location: [facility] Current Patient Location: Accession/Order Number: [id number] Exam Date: 11/03/2024 16:12 Report Date: 11/03/2024 16:13 At the request of: ARMINDA WARNER DO [...] Bland M.D. 11/03/2024 4:13 PM Dictation Location: [place] [address] Electronically authenticated by: [id number] Y Date: 11/03/2024 16:13 Dictated By: Cristo Bland M.D. Signed By: 11/03/241615 DD/ 12 TD/TT: Signals Collector/Analyst: Procedure Note Radiology, Radiologist, - 11/03/2024 [place] [address] Ultrasound Report Signed Patient: MADDIE RAMAN CMR#: [id number] : 1995Acct:[id number] Age/Sex: 29 FADM Date: 11/03/24 Loc: US Attending Dr: Arminda Warner D.O. Ordering Physician: Arminda Warner D.O. Date of Service: 11/03/24 Procedure(s): US OB BPP w non-stress Accession Number(s): [id number] cc: Arminda Warner D.O.; Ally Craig NP [place] [address] Patient Name: MADDIE RAMAN MRN: [facility]:[id number] date: 1995 Sex: F Assigned Patient Location: [facility] Current Patient Location: Accession/Order Number: [id number] Exam Date: 11/03/2024 16:12 Report Date: 11/03/2024 16:13 At the request of: ARMINDA WARNER DO [...] BPP w non-stress IMPRESSION: Biophysical profile score: 8 The amniotic fluid index is 12.8 cm. Impression dictated by: Cristo Bland M.D. 11/03/2024 4:13 PM Dictation Location: [employer] Electronically authenticated by: [id number] Y Date: 6:13 Dictated By: Cristo Bland M.D. Signed By:11/03/24 1616 DD/ 1613 TD/TT: Signals Collector/Analyst: us Arminda Warner DO [facility] Final Result documented in this encounter Visit Diagnoses Not on filedocumented in this encounter
--- OUTSIDE RECORDS SUMMARY | 2024-11-10 14:55 | XMS_ITS | Encounter Summary ---
Author Organization [employer] Address [id number] [address] [place] [address] Care Team Providers Care Welder And Fitter Name Role Phone KiaraAlly stevenson GEOPHYSICAL LABORATORY DIRECTOR-EMERGENCY DEPARTMENT Primary Care Provi collin Reason for Visit * Reason Onset Date Comments Med Refill 11/20/2021 Encounter Details Date Type Department Care Team (Late st Contact Info) Description 11/20/2021 Refill [facility] General Surgery-Bariatric [address] [facility] [address] [place] [address] Evelyn Flower CMA Social History Tobacco Use Types Packs/Day Years Used Date Smoking Tobacco: Never Smokeless Tobacco: Never Alcohol Use Standard Drinks/Week Comments Yes 0 (1 standard drink = 0.6 oz pur e alcohol) Occassionally-2 times a year PHQ-2 Answer Date Recorded Total Score 0 04/01/2021 Childcare Answer Date Recorded Childcare Unknown 11/30/2018 Employment Answer Date Recorded Employment Unknown 11/30/2018 Purpose - Life Answer Date Recorded Purpose and direction in life Unknown Comments No Sex and Gender Information Value Date Recorded Sex Assigned at Not on file Legal Sex Female 11:54 AM EDT Gender Identity Not on file Sexual Orientation Not on file COVID-19 Exposure Response Date Recorded In the last 10 days, have yo u been in contact with someone who was confirmed or suspected to have Coronavirus/COVID-19? No / Unsure 11/19/2021 1:04 PM EDT documented as of this encounter Plan of Treatment Not on file documented as of this encounter Goals Goal Patient Goal Type Associated Problems Recent Progress Patient-Stated? Author D/C Home General Yes Yaneth Bright APRN-EMERGENCY DEPARTMENT Note: Evaluation of progress towards goal: Pt plans to d/c home with self care and family support. documented as of this encounter Visit Diagnoses Not on filedocumented in this encounter Additional Health Concerns Assessment Noted Time PHQ-9 Depression Total Score: 0 04/01/20 21 11:14 AM EDT documented as of this encounter Care Teams Welder And Fitter Relationship Specialty Start Date End Date Ally Craig, GEOPHYSICAL LABORATORY DIRECTOR-EMERGENCY DEPARTMENT [address], [place] [address] PCP - General Family Medicine 04/12/18 documented as of this encounter
--- OUTSIDE RECORDS SUMMARY | 2024-11-10 14:55 | XMS_ITS | Encounter Summary ---
Author Organization [employer] Address [id number] [address] [place] [address] Care Team Providers Care Hide And Skin Processing Worker Name Role Phone Ally Craig BUHR MILL OPERATOR-SYSTEMS ARCHITECT Primary Care Provi collin Encounter Details Date Type Department Care Team (Latest Contact Info) Description 11/06/2024 Travel Social History Tobacco Use Types Packs/Day Years [...] Author D/C Home General Yes Yaneth Bright, BUHR MILL OPERATOR-SYSTEMS ARCHITECT Note: Evaluation of progress towards goal: Pt plans to d/c home with self care and family support. documented as of this encounter Visit Diagnoses Not on filedocumented in this encounter Additional Health Concerns Assessment Noted Time PHQ-9 Depression Total Score: 19 023 10:14 AM EDT documented as of this encounter Care Teams Hide And Skin Processing Worker Relationship Specialty Start Date End Date Ally Craig, RAFA-SYSTEMS ARCHITECT [address], [place] [address] PCP - General Family Medicine 04/12/18 documented as of this encounter
--- OUTSIDE RECORDS SUMMARY | 2024-11-10 14:55 | XMS_ITS | Encounter Summary ---
Author Organization [facility] Address [address] [place] [address] Care Team Providers Care [employer] Social Studies Teacher Name Role Phone Unavailable Primary Care Provider Unavailabl e Encounter Details Date Type Department Care Team (Late st Contact Info) Description 09/22/2024 Abstract [facility] [address] [place] [address] Cedric Warner, DO [address], [facility] Social History Tobacco Use Types Packs/Day [...] [facility] BCP OB [address] [place] [address] Cedric Warner DO [address], [place] [id number] documented as of this encounter Visit Diagnoses Not on filedocumented in this encounter
--- OUTSIDE RECORDS SUMMARY | 2024-11-10 14:55 | XMS_ITS | Encounter Summary ---
Author Organization [facility] Address [address] [place] [address] Care Team Providers Care Prosthodontist Name Role Phone Unavailable Primary Care Provider Unavailabl e Reason for Visit * Reason Onset Date Comments Med Refill 11/02/2024 Encounter Details Date Type Department Care Team (Late st Contact Info) Description 11/02/2024 Refill [facility] BCP OB [address] [facility] [place] [address] Zoraida Travis PA [address] [place] [address] [address] [place], [place] [address] H/O gastric sleeve Social History Tobacco Use Types Packs/Day Years [...] on file documented as of this encounter Miscellaneous Notes * Telephone Encounter - Angie Moore LPN - 11/03/2024 8:02 AM EDT Script request received and sent to pharmacy documented in this encounter Plan of Treatment Upcoming Encounters Date Type Department Care Team (Late st Contact Info) Description 11/14/2024 1:50 PM EDT Routine [facility] [address] [facility] [place] [address] Cedric Warner, [address] [place] [address] documented as of this encounter Visit Diagnoses Diagnosis H/O gastric sleeve documented in this encounter
--- OUTSIDE RECORDS SUMMARY | 2024-11-10 14:55 | XMS_ITS | Clinical Summary ---
Author Organization [facility] Address [address] [place] [address] Care Team Providers Care It Help Desk Associate Name Role Phone Unavailable Primary Care Provider Unavailabl e Allergies No known active allergies Medications busPIRone (Buspar) 15 MG tablet Take by mouth 2 (two) times a day. Active MV-Min-Fe Fum-FA-DHA ( 1 PO) Active Cyanocobalamin 1000 MCG/ML kitIndications :H/O gastric sleeve Inject 1 mL as directed every 30 (thirty) days 1 kit 11 11/04/19 25 025 Active omeprazole OTC (PriLOSEC OTC) 20 MG EC tablet Take 20 mg by mouth in the morning. 11/07/19 25 Active Cyanocobalamin (Vitamin B-12) 1000 MCG/15ML liquid Take 1 each by mouth every 30 (thirty) days 025 Discontinued(Re order) Cyanocobalamin (Vitamin B-12) 1000 MCG/15ML liquidIndicati ons:H/O gastric sleeve Take 1 each by mouth every 30 (thirty) days 450 mL 3 11/04/19 25 025 Discontinued Encounters Date Type Department Care Team Description 11/09/2024 9:50 AM EDT Routine [facility] [address] [place] [address] Zoraida Travis PA 35 weeks gestation of ; Third trimester 11/09/2024 Bamboo flowsheet [facility] [address] [place] [address] Zoraida Travis PA 11/08/2024 Abstract [facility] [address] [place] [address] Arminda Warner, 11/03/2024 Clinisync Result Encounter [facility] External Department Unsolicited Arminda Warner, 11/03/2024 Telephone [facility] [address] [place] [address] [place] [address] Celsa Coats MA 11/02/2024 Refill [facility] [address] [place] [address] [place] [address] Zoraida Travis PA H/O gastric sleeve 10/30/2024 Clinisync Result Encounter [facility] External Department Unsolicited Arminda Warner, 10/25/2024 2:20 PM EDT Routine [facility] [address] [place] [address] Arminda Warner, Third trimester ; 32 weeks gestation of ; H/O gastric sleeve 10/25/2024 Bamboo flowsheet [facility] [address] [place] [address] [place] [address] Arminda Warner, 10/11/2024 9:40 AM EDT Routine [facility] [address] [place] [address] [place] [address] Frances Pena, MOLINA Third trimester ; 30 weeks gestation of 10/11/2024 Bamboo flowsheet [facility] [address] [place] [address] [place] [address] Frances Pena NP 09/26/2024 9:50 AM EDT Routine [facility] [address] [place] [address] [place] [address] Arminda Warner, Third trimester ; 28 weeks gestation of 09/26/2024 Bamboo flowsheet [facility] [address] [place] [address] [place] [address] Arminda Warner, DO 09/22/2024 Abstract [facility] [address] [place] [address] Arminda Warner, DO 09/09/2024 Clinisync Result Encounter [facility] External Department Unsolicited Zoraida Travis PA 08/29/2024 8:30 AM EDT Routine [facility] [address] [place] [address] Zoraida Travis PA 25 weeks gestation of ; Second trimester ; Diabetes mellitus screening 08/29/2024 Bamboo flowsheet [facility] [address] [place] [address] Zoraida Travis PA 08/24/2024 Abstract [facility] [address] [place] [address] Arminda Warner, 08/17/2024 Orders Only [facility] [address] [place] [address] Elena Constantino MA from Last 3 Months Family History * Patient is adopted Relation Name Status Comments Father Alive Mother Alive Son Alive Social History Tobacco Use Types Packs/Day Years Used Date Smoking Tobacco: Never Smokeless Tobacco: Never Tobacco Cessation:Counseling Given: Not Answered Estimated Date of Delivery Comme nts Yes 12/14/2024 Based on Ultraso und Sex and Gender Information Value Date Recorded Sex Assigned at Female 11/17/2022 10:51 AM EDT Legal Sex Female 7:58 PM EDT Gender Identity Female 11/17/2022 10:51 AM EDT Sexual Orientation Not on file Last Filed Vital Signs Vital Sign Reading Time Taken Comments Blood Pressure 112/76 11/09/2024 10:02 AM EDT Pulse - - Temperature - - Respiratory Rate - - Oxygen Saturation - - Inhaled Oxygen Concentration - - Weight 123 kg (270 lb 8 oz) 11/09/2024 10:02 AM EDT Height 165.1 cm (5' 5 ) 11/24/2022 9:10 AM EDT Body Mass Index 45.01 11/24/2022 9:10 AM EDT Plan of Treatment Upcoming Encounters Date Type Department Care Team (Late st Contact Info) Description 11/14/2024 1:50 PM EDT Routine [facility] [address] [place] [address] Arminda Warner, DO [address] [facility] [place] [address] Health Maintenance Due Date Last Done Comments Influenza Vaccine (Season Ended) 2025 Procedures Procedure Name Priority Date/Time Associated Diagnosis Comments POCT URINALYSIS DIPSTICK Routine 11/09/2024 10:11 AM EDT 35 weeks gestation of US OB BPP W NON-STRESS 11/03/2024 4:13 PM EDT US OB BPP W NON-STRESS 10/30/2024 9:28 AM EDT POCT URINALYSIS DIPSTICK Routine 10/25/2024 3:28 PM EDT Third trimester POCT URINALYSIS DIPSTICK Routine 10/11/2024 9:59 AM EDT Third trimester POCT URINALYSIS DIPSTICK Routine 09/26/2024 10:12 AM EDT Third trimester 28 weeks gestation of ALL CBC WITH AUTO DIFF Routine 09/09/2024 10:12 AM EDT GLUCOSE 1 HOUR Routine 09/09/2024 10:12 AM EDT POCT URINALYSIS DIPSTICK Routine 08/29/2024 8:45 AM EDT 25 weeks gestation of Second trimester US OB 14+ WEEKS ANATOMY SCAN 08/24/2024 12:47 PM EST from Last 3 Months Results * (ABNORMAL) POCT urinalysis dipstick manually resulted (11/09/2024 10:11 AM EDT) Only the most recent of5 resultswithin the time period is included. Color, UA Yellow Clarity, UA Clear Glucose, UA Negative Negative - 1999(110) ++++ mg/dL Bilirubin, UA Negative Negative - 4(70) +++ mg/dL Ketones, UA Negative Negative - 160(16) ++++ mg/dL Spec Grav, UA 1.025 1 - 1.03 Blood, UA Negative Negative - 50 Miguel Angel/mcL pH, UA 7.0 5 - 9 Protein, UA Positive Negative - 1999(20) ++++ mg/dL Comment:30mg/dL Urobilinogen, UA 1.0 0.2 - 12 mg/dL Leukocytes, UA Negative Negative - 500+++ Eleonora/mcL Nitrite, UA Negative Negative - Positive Urine 11/09/2024 10:1 1 AM EDT Zoraida SEGOVIA POINT OF CARE TEST ENTER/EDIT OR DERABLES Final Result * US OB BPP W NON-STRESS (11/03/2024 4:13 PM EDT) Only the most recent of2 resultswithin the time period is included. Anatomical Region Laterality Modality Other 11/03/2024 4:13 PM EDT Narrative 11/03/2024 4:16 PM EDT The [address] [address] Ultrasound Report Signed Patient: MADDIE RAMAN MR#: [id number] : 1995 Acct:[id number] Age/Sex: 29 / F ADM Date: 11/03/24 Loc: US Attending Dr: Arminda Warner D.O. Ordering Physician: Arminda Warner D.O. Date of Service: 11/03/24 Procedure(s): US OB BPP w non-stress Accession Number(s): [id number] cc: Arminda Warner D.O.; Ally Craig NP [address] [address] Patient Name: MADDIE RAMAN MRN: [id number] date: 1995 Sex: F Assigned Patient Location: [facility] Current Patient Location: Accession/Order Number: [id number] Exam Date: 11/03/2024 16:12 Report Date: 11/03/2024 [...] Bland M.D. 11/03/2024 4:13 PM Dictation Location: [place] [address] Electronically authenticated by: [id number] Y Date: 11/03/2024 16:13 Dictated By: Cristo Bland M.D. Signed By: 11/03/24 1616 DD/ 161 TD/TT: Senior Embedded Software Engineer: Procedure Note Radiology, Radiologist, - 11/03/2024 [place] [address] Ultrasound Report Signed Patient: MADDIE RAMAN CMR#: [id number] : 1995Acct:[id number] Age/Sex: 29 FADM Date: 11/03/24 Loc: US Attending Dr: Arminda Warner D.O. Ordering Physician: Arminda Warner D.O. Date of Service: 11/03/24 Procedure(s): US OB BPP w non-stress Accession Number(s): [id number] cc: Arminda Warner D.O.; Ally Craig NP The [place] [address] Patient Name: MADDIE RAMAN MRN: [facility]:[id number] date: 1995 Sex: F Assigned Patient Location: [facility] Current Patient Location: Accession/Order Number: [id number] Exam Date: 11/03/2024 16:12 Report Date: 11/03/2024 [...] Bland M.D. 11/03/2024 4:13 PM Dictation Location: [place] [address] Electronically authenticated by: [id number] Y Date: 6:13 Dictated By: Cristo Bland M.D. Signed By:11/03/24 1616 DD/ 1613 TD/TT: Senior Embedded Software Engineer: Arminda Warner DO [facility] Final Result * GLUCOSE 1 HOUR (09/09/2024 10:12 AM EDT) GLUCOSE 1 HOUR 98 <130 mg/dL [facility] 09/09/2024 10:1 2 AM EDT 09/09/2024 10:13 AM EDT Narrative [facility] - 09/09/2024 10:27 AM EDT Zoraida SEGOVIA LAB BLOOD ORDERABLES Final Resul t [facility] * (ABNORMAL) ALL CBC WITH AUTO DIFF (09/09/2024 10:12 AM EDT) [facility] TB WBC 7.1 4.0 - 11.0 10 3/uL [facility] RBC 3.41(L) 4.20 - 5.40 10 6/uL [facility] HGB 10.5(L) 12.0 - 16.0 g/dL [facility] TB[facility] HCT 30.8(L) 36.0 - 48.0 % [facility] MCV 90.3 81.0 - 99.0 fL [facility]H TBH MCH 30.8 26.7 - 34.0 pg TBH TBH MCHC 34.1 29.9 - 35.2 g/dL [facility]H RDW 13.2 11.0 - 15.0 % [facility]H PLT 186 150 - 450 10 3/uL [facility] TBH MPV 10.0 9.5 - 13.5 fL [facility] NEUTROPHILS PERCENT AUTO 73.3 43.0 - 75.0 % [facility] LYMPHOCYTES PERCENT AUTO 18.0(L) 20.5 - 60.0 % [facility] MONOCYTES PERCENT AUTO 5.8 1.7 - 12.0 % [facility] EO % 2.3 0.9 - 7.0 % [facility] BASOPHILS PERCENT AUTO 0.3 0.2 - 2.0 % [facility] IMMATURE GRANULOCYTES PCT AUTO 0.3 0.0 - 0.5 % [facility] NEUTROPHILS ABSOLUTE AUTO 5.2 1.4 - 6.5 10 3/uL TBH LYMPHOCYTES ABSOLUTE AUTO 1.3 1.2 - 3.8 10 3/uL [facility] MONOCYTES ABSOLUTE AUTO 0.4 0.3 - 0.8 10 3/uL [facility] TBH EO # 0.2 0.0 - 0.7 10 3/uL TBH BASOPHILS ABSOLUTE AUTO 0.0 0.0 - 0.1 10 3/uL [facility] IMMATURE GRANULOCYTES ABS AUTO 0.02 0.00 - 0.03 10 3/uL [facility] 09/09/2024 10:1 2 AM EDT 09/09/2024 10:13 AM EDT Narrative [facility] - 09/09/2024 10:28 AM EDT us Zoraida MATT Final Result [facility] * US OB 14+ weeks anatomy scan (08/24/2024 12:47 PM EST) Anatomical Region Laterality Modality Body Ultrasound 08/24/2024 12:4 7 PM EST Narrative 08/24/2024 12:47 PM EST THIS EXAM WAS PERFORMED AT [facility] NAME: CECI PERKINS : 1995 SEX: F Accession Number: [id number] ORDERING PHYSICIAN: ARMINDA WARNER REFERRING PHYSICIAN: ARMINDA WARNER Coding ----- --------- Procedures 33904: Ultrasound, uterus, real time with image documentation, and maternal evaluation plus detailed anatomic examination, transabdominal approach;single or first gestation 58873: Transvaginal Ultrasound (OB) Indication ----- --------- Obesity in , Placenta previa, Screening for Anatomic Survey, Screening for cervical length History ----- --------- OB History 7. Para 1 [id number] Maternal Assessment ----- --------- Physical Exam Height 165 cm, 5 ft 5 in. Weight 113 kg, 249 lb. Initial weight 97 kg, 213 lb. BMI 41.44 kg/m???. Initial BMI 35.45 kg/m???. Weight gain 16 kg, 36 lb Method ----- --------- Transabdominal and transvaginal ultrasound examination, Transabdominal and transvaginal ultrasound examination. View: Suboptimal view: limited by maternal body habitus. Suboptimal view: limited by position ----- --------- Alonso . Number of fetuses: 1 Dating ----- --------- LMP on: 12/22/2023 Cycle: irregular cycle, LMP date uncertain, regular cycle GA by LMP 35 w + 1 d MERLINE by LMP: 09/27/2024 GA by prior assessment 25 w + 0 d MERLINE by prior assessment: 12/07/2024 Previous Ultrasound on: 05/13/2024 Type of prior assessment: GA GA at prior assessment date 9 w + 2 d GA by previous U/S 24 w + 0 d MERLINE by previous Ultrasound: 12/14/2024 Ultrasound examination on: 08/24/2024 GA by U/S based upon: AC, BPD, Femur, HC GA by U/S 23 w + 2 d MERLINE by U/S: 12/19/2024 Assigned: based on ultrasound (GA), selected on 08/24/2024 Assigned GA 24 w + 0 d Assigned MERLINE: 12/14/2024 General Evaluation ----- --------- Cardiac activity Present. FHR 145 bpm. Presentation: cephalic Placenta: Placental site: anterior, away from cervical os Umbilical cord: Cord vessels: 3 vessel cord, 3 vessel cord. Insertion site: normal insertion, normal insertion Amniotic fluid: Amount of AF: normal amount, normal amount. MVP 5.7 cm Biometry ----- --------- BPD 52.4 mm 21w 6d 1% Hadlock OFD 75.5 mm 24w 6d 79% Jody HC 205.5 mm 22w 5d 3% Hadlock Cerebellum tr 28.8 mm 25w 2d 92% Hill AC 191.6 mm 23w 6d 37% Hadlock Femur 44.1 mm 24w 4d 54% Hadlock Humerus 40.7 mm 24w 5d 61% Jody HC / AC 1.07 Weight Calculation: EFW 640 g 37% Hadlock EFW (lb,oz) 1 lb 7 oz EFW by Hadlock ([id number]) Head / Face / Neck Biometry: Cephalic index 0.69 <1% Nicolaides Medical Oncologist 4.2 mm CM 6.6 mm 70% Nicolaides Extremities / Bony Struc Biometry: FL / BPD 0.84 FL / HC 0.21 FL / AC 0.23 Tibia 38.8 mm 24w 5d 72% Jody Anatomy ----- --------- The following structures appear normal: Head/Neck: Cranium. Lateral ventricles. Choroid plexus. Midline falx. Cavum septi pellucidi. Cerebellum. Cisterna magna. Parenchyma. Vermis. Face: Orbits. Heart/Thorax: RVOT view. Situs. Cardiac position. Cardiac axis. Cardiac size. Cardiac rhythm. Abdomen: Abdom. wall. Cord insertion. Stomach. Kidneys. Bladder. Small bowel. Large bowel. Right renal artery. Left renal artery. Extremities/Skeleton: Right upper arm. Right forearm. Right upper leg. Right lower leg. Right foot. Left upper leg. Left lower leg. Left foot. The following structures could not be adequately visualized: Heart / Thorax 4-chamber view. 3-vessel view. Interventricular septum. Great vessels. Right lung. Left lung. Diaphragm. The following structures could not be examined: Head / Neck Neck. Nuchal fold. Face Lips. Profile. Nose. Nasal bone. Maxilla. Mandible. Heart / Thorax LVOT view. 5-zgoxra-hfqaxxo view. Aortic arch view. Bicaval view. Ductal arch view. Abdomen Genitals. Spine: Cervical spine. Thoracic spine. Lumbar spine. Sacral spine. Extremities / Right hand. Left upper arm. Left forearm. Left hand. Skeleton Maternal Structures ----- --------- Uterus Visualized Cervix Visualized Approach - Transvaginal: Cervical length 4.80 cm Right Ovary Not visualized Left Ovary Not visualized Cul de Sac Visualized. No free fluid visualized Impression ----- --------- Single viable intrauterine consistent with 24w 0d with an MERLINE of 12/14/2024. Anterior placenta with no evidence of placenta previa, edge of placenta measures 4 cm away from internal cervical os. Transvaginal cervical length measures 4.8 cm. Recommendations ----- --------- Please see [facility] documentation from today. The patient is scheduled in four to six week(s) to complete anatomic survey. Subsequent follow up or other follow up as clinically determined by primary OB provider unless otherwise specified by MFM. Results forwarded to ordering provider so they can follow up with the patient as necessary. Procedure Note Radiology, Radiologist, - 08/24/2024 THIS EXAM WAS PERFORMED AT [facility] NAME: CECI PERKINS : 1995 SEX: F Accession Number: [id number] ORDERING PHYSICIAN: ARMINDA WARNER REFERRING PHYSICIAN: ARMINDA WARNER Coding ----- --------- Procedures 59979: Ultrasound, uterus, real time with imagedocumentation, and maternal evaluation plus detailed anatomic examination, transabdominalapproach;single or first gestation 97651: Transvaginal Ultrasound (OB) Indication ----- --------- Obesity in , Placenta previa, Screening for Anatomic Survey,Screening for cervical length History ----- --------- OB History 7. Para 1 [id number] Maternal Assessment ----- --------- Physical Exam Height 165 cm, 5 ft 5 in. Weight 113 kg, 249 lb. Initialweight 97 kg, 213 lb. BMI 41.44 kg/m???. Initial BMI 35.45 kg/m???. Weight gain 16 kg, 36 lb Method ----- --------- Transabdominal and transvaginal ultrasound examination, Transabdominal andtransvaginal ultrasound examination. View: Suboptimal view: limited by maternal body habitus. Suboptimal view: limited by fetalposition ----- --------- Alonso . Number of fetuses: 1 Dating ----- --------- LMP on: 12/22/2023 Cycle: irregular cycle, LMP date uncertain, regular cycle GA by LMP 35 w + 1 d MERLINE by LMP: 09/27/2024 GA by prior assessment 25 w + 0 d MERLINE by prior assessment: 12/07/2024 Previous Ultrasound on: 05/13/2024 Type of prior assessment: GA GA at prior assessment date 9 w + 2 d GA by previous U/S 24 w + 0 d MERLINE by previous Ultrasound: 12/14/2024 Ultrasound examination on: 08/24/2024 GA by U/S based upon: AC, BPD, Femur, HC GA by U/S 23 w + 2 d MERLINE by U/S: 12/19/2024 Assigned: based on ultrasound (GA), selected on 08/24/2024 Assigned GA 24 w + 0 d Assigned MERLINE: 12/14/2024 General Evaluation ----- --------- Cardiac activity Present. FHR 145 bpm. Presentation: cephalic Placenta: Placental site: anterior, away from cervical os Umbilical cord: Cord vessels: 3 vessel cord, 3 vessel cord. Insertionsite: normal insertion, normal insertion Amniotic fluid: Amount of AF: normal amount, normal amount. MVP 5.7 cm Biometry ----- --------- BPD 52.4 mm 21w 6d 1% Hadlock OFD 75.5 mm 24w 6d 79% Jody HC 205.5 mm 22w 5d 3% Hadlock Cerebellum tr 28.8 mm 25w 2d 92% Alverda AC 191.6 mm 23w 6d 37% Hadlock Femur 44.1 mm 24w 4d 54% Hadlock Humerus 40.7 mm 24w 5d 61% Jody HC / AC 1.07 Weight Calculation: EFW 640 g 37% Hadlock EFW (lb,oz) 1 lb 7 oz EFW by Hadlock ([id number]) Head / Face / Neck Biometry: Cephalic index 0.69 <1% Nicolaides Medical Oncologist 4.2 mm CM 6.6 mm 70% Nicolaides Extremities / Bony Struc Biometry: FL / BPD 0.84 FL / HC 0.21 FL / AC 0.23 Tibia 38.8 mm 24w 5d 72% Jody Anatomy ----- --------- The following structures appear normal: Head/Neck: Cranium. Lateral ventricles. Choroid plexus. Midline falx.Cavum septi pellucidi. Cerebellum. Cisterna magna. Parenchyma. Vermis. Face: Orbits. Heart/Thorax: RVOT view. Situs. Cardiac position. Cardiac axis. Cardiacsize. Cardiac rhythm. Abdomen: Abdom. wall. Cord insertion. Stomach. Kidneys. Bladder. Smallbowel. Large bowel. Right renal artery. Left renal artery. Extremities/Skeleton: Right upper arm. Right forearm. Right upper leg.Right lower leg. Right foot. Left upper leg. Left lower leg. Left foot. The following structures could not be adequately visualized: Heart / Thorax 4-chamber view. 3-vessel view. Interventricular septum.Great vessels. Right lung. Left lung. Diaphragm. The following structures could not be examined: Head / Neck Neck. Nuchal fold. Face Lips. Profile. Nose. Nasal bone. Maxilla. Mandible. Heart / Thorax LVOT view. 4-dxaoww-plsfnhc view. Aortic arch view. Bicavalview. Ductal arch view. Abdomen Genitals. Spine: Cervical spine. Thoracic spine. Lumbar spine. Sacral spine. Extremities / Right hand. Left upper arm. Left forearm. Left hand. Skeleton Maternal Structures ----- --------- Uterus Visualized Cervix Visualized Approach - Transvaginal: Cervical length 4.80 cm Right Ovary Not visualized Left Ovary Not visualized Cul de Sac Visualized. No free fluid visualized Impression ----- --------- Single viable intrauterine consistent with 24w 0d with an MERLINE of12/14/2024. Anterior placenta with no evidence of placenta previa, edge of placentameasures 4 cm away from internal cervical os. Transvaginal cervical length measures 4.8 cm. Recommendations ----- --------- Please see [facility] documentation from today. The patient is scheduled in four to six week(s) to complete anatomicsurvey. Subsequent follow up or other follow up as clinically determined byprimary OB provider unless otherwise specified by MFM. Results forwarded to ordering provider so they can follow up with thepatient as necessary. us Arminda Warner DO IMG OB US PROCEDURES Final Resul t from Last 3 Months Insurance [employer]ICA[employer]
--- OUTSIDE RECORDS SUMMARY | 2024-11-10 14:55 | XMS_ITS | Encounter Summary ---
Author Organization [facility] Address [address] [place] [address] Care Team Providers Care Top Tile Decorator Name Role Phone Unavailable Primary Care Provider Unavailabl e Encounter Details Date Type Department Care Team (Late st Contact Info) Description 11/08/2024 Abstract [facility] OB [address] [place] [address] Cedric Warner, DO [address] [place], [facility] Social History Tobacco Use Types Packs/Day Years [...] Routine [facility] [address] [place] [address] Cedric Warner DO [address] [place], [place] [id number] documented as of this encounter Visit Diagnoses Not on filedocumented in this encounter
--- OUTSIDE RECORDS SUMMARY | 2024-11-10 14:55 | XMS_ITS | Clinical Summary ---
Author Organization [employer] tem Address [id number] [address] [place] [address] Care Team Providers Care Federal Appellate Law Clerk Name Role Phone Ally Craig SAMPLE CARD MAKER-CLASSIFIER OPERATOR Primary Care Provi collin Allergies Active Allergy Reactions Criticality Noted Date Comments [place] Extract Anaphylaxis High 02/01/2019 Medications * This document contains information received from the source organization and may not represent a complete record from that organization. vit 10-iron fum-folic 65-1 mg tabletIndications:M orbid obesity (CMS-HCC),Healthcar e maintenance Take 1 tablet by mouth in the morning. 90 tablet 3 11/19/19 22 Active syringe with needle (BD LUER-DIEGO SYRINGE) 3 mL 25 x 1 1/2 syringeIndications: History of sleeve gastrectomy,Postsur gical malabsorption,Malnu trition following gastrointestinal surgery 1 SYRG by miscellaneous route every 30 (thirty) days. 6 each 1 02/13/20 22 Active Additional Information Patient not taking.Reported on 11/06/2024 cholecalciferol, vitamin D3, 50,000 units tabletIndications:H istory of sleeve gastrectomy,Postsur gical malabsorption,Malnu trition following gastrointestinal surgery,Vitamin D deficiency Take 1 tablet (50,000 Units total) by mouth once a week. 12 tablet 12/29/19 23 Active Additional Information Patient not taking.Reported on 11/06/2024 cyanocobalamin (VITAMIN B-12) 1,000 mcg/mL injectionIndication s:History of sleeve gastrectomy,Postsur gical malabsorption,Malnu trition following gastrointestinal surgery,Vitamin B12 deficiency Inject 1 mL (1,000 mcg total) into the appropriate muscle every 30 (thirty) days. 6 mL 03/30/20 23 Active methylPREDNISolone (MEDROL) 4 mg tablet Take 1 tablet (4 mg total) by mouth in the morning. Active azelastine (ASTELIN) 137 mcg (0.1 %) nasal sprayIndications:Si nus pressure Administer 1 spray into each nostril in the morning and 1 spray before bedtime. Use in each nostril as directed. 30 mL 2 03/15/20 24 Active Additional Information Patient not taking.Reported on 11/06/2024 busPIRone (BUSPAR) 7.5 mg tabletIndications:W eight gain,Mixed anxiety and depressive disorder Take 1 tablet (7.5 mg total) by mouth 3 (three) times a day. 90 tablet 2 03/15/20 Active syringe with needle (BD LUER-DIEGO SYRINGE) 3 mL 25 x 1 1/2 syringeIndications: History of sleeve gastrectomy,Postsur gical malabsorption,Malnu trition following gastrointestinal surgery,Vitamin B12 deficiency USE 1 SYRINGE EVERY 30 DAYS 6 each 1 03/20/20 24 Active Additional Information Patient not taking.Reported on 11/06/2024 cyanocobalamin (VITAMIN B-12) 1,000 mcg/mL injectionIndication s:History of sleeve gastrectomy,Postsur gical malabsorption,Malnu trition following gastrointestinal surgery INJECT 1 ML INTO THE APPROPRIATE MUSCLE EVERY 30 DAYS 6 mL 1 05/04/20 24 Active lidocaine (LIDODERM) 5 %Indications:Lumbar disc herniation USE 1 PATCH EXTERNALLY ONCE DAILY . REMOVE AND DISCARD PATCH WITHIN 12 HOURS OR DIRECTED BY DOCTOR. 30 patch 1 07/17/19 25 Active Additional Information Patient not taking.Reported on 11/06/2024 albuterol (PROVENTIL HFA;VENTOLIN HFA) 90 mcg/actuation inhalerIndications: Chest cold,Acute cough,Wheezing Inhale 2 puffs every 6 (six) hours as needed for wheezing. 18 g 3 07/24/19 25 Active Additional Information Patient not taking.Reported on 11/06/2024 PNV 19/iron ps,heme/folic/dha ( MV & MIN ORAL) Take 1 tablet by mouth once daily. Active metoprolol succinate XL (TOPROL XL) 25 mg 24 hr tablet Take 1 tablet (25 mg total) by mouth as needed (for persisent HR >150 BPM lasting 15-20 mins). 30 tablet 11 10/06/19 Active omeprazole (PriLOSEC OTC) 20 mg EC tabletIndications:H istory of sleeve gastrectomy Take 1 tablet (20 mg total) by mouth in the morning. 60 tablet 2 11/07/19 Active Active Problems Patient Care Coordination No te Formatting of this note migh t be different from the original. ECHO 65% 10/06 Problem Noted Date Diagnosed Date Chronic fatigue 03/15/2024 Lipid screening 03/15/2024 Weight gain 03/15/2024 Lumbar disc herniation 12/22/2023 History of sleeve gastrectomy 11/12/2023 Postsurgical malabsorption 11/12/2023 Malnutrition following gastrointestinal surgery 11/12/2023 Mixed anxiety and depressive disorder 11/09/2022 BMI 39.0-39.9,adult 11/09/2022 Sinus pressure 07/16/2022 Hx of supraventricular tachycardia 10/01/2020 Calculus of gallbladder with biliary obstruction but without cholecystitis 04/26/2019 Antibiotic-induced yeast infection 04/20/2018 Asthma 04/12/2018 Wheezing 04/12/2018 Estimated Date of Delivery Comme nts Yes 12/14/2024 Based on Ultraso und Resolved Problems Problem Noted Date Diagnosed Date Resolved Date Chest cold 04/26/2023 03/15/2024 Acute cough 04/26/2023 03/15/2024 Vaginal yeast infection 07/23/202202/20 Loss of taste 07/16/2022 03/15/2024 Morbid obesity 11/10/2021 11/09/2022 Strep pharyngitis 01/23/2020 03/15/2024 Abdominal pain 04/24/2019 03/15/2024 Sore throat 01/19/2019 04/26/2023 URI (upper respiratory infection) 07/12/2018 10/01/2020 Acute non-recurrent ethmoidal sinusitis 06/20/2018 10/01/2020 Shortness of breath 04/12/2018 04/26/20 Recurrent non-productive cough 04/12/2018 10/01/2020 Supraventricular tachycardia 10/05/2017 10/01/2020 Overview (10/05/2017): Added automatically from request for surgery [id number] SVT (supraventricular tachycardia) 09/26/2017 10/01/2020 Encounters Date Type Department Care Team Description 11/06/2024 12:00 PM EDT Office Visit Maternal- Medicine at [facility] [address] [place] [address] Erlin Chung MD History of sleeve gastrectomy (Primary Dx) 11/06/2024 10:39 AM EDT - 11/06/2024 11:59 PM EDT Hospital Encounter [facility] [address] [place] [address] History of sleeve gastrectomy; Hx of supraventricular tachycardia; Encounter for follow-up ultrasound of anatomy; Encounter for anatomic survey Discharge Disposition: Home 11/06/2024 Travel 10/20/2024 8:45 AM EDT Telemedicine Maternal- Medicine at [facility] [address] [place] [address] Erlin Chung MD History of sleeve gastrectomy (Primary Dx); Hx of supraventricular tachycardia 10/20/2024 Travel 10/05/2024 9:00 AM EDT Ancillary Procedure [facility] [address] [place] [address] Hx of supraventricular tachycardia 10/05/2024 8:30 AM EDT Office Visit [facility] [address] [place] [phone] Ole Rojas MD Hx of supraventricular tachycardia (Primary Dx) 10/05/2024 Travel 09/29/2024 Orders Only Maternal- Medicine at [facility] [address] [place] [address] Triny Morales RN History of sleeve gastrectomy (Primary Dx); Hx of supraventricular tachycardia; Encounter for follow-up ultrasound of anatomy; Encounter for anatomic survey 09/28/2024 2:22 PM EDT - 09/28/2024 11:59 PM EDT Hospital Encounter [facility] [address] [place] [address] History of sleeve gastrectomy; Hx of supraventricular tachycardia; Encounter for follow-up ultrasound of anatomy Discharge Disposition: Home 09/28/2024 Travel 08/24/2024 9:00 AM EST Office Visit Maternal- Medicine at [facility] [address] [place] [address] Erlin Chung MD History of sleeve gastrectomy (Primary Dx); Hx of supraventricular tachycardia 08/24/2024 7:29 AM EST - 08/24/2024 11:59 PM EST Hospital Encounter [facility] [address] [place] [address] History of sleeve gastrectomy; Hx of supraventricular tachycardia; Encounter for anatomic survey Discharge Disposition: Home 08/24/2024 Orders Only Maternal- Medicine at [facility] [address] [place] [address] Zoraida Butcher LPN 08/24/2024 Orders Only Maternal- Medicine at [facility] [address] [place] [address] Cindy Walton, RN History of sleeve gastrectomy (Primary Dx); Hx of supraventricular tachycardia; Encounter for follow-up ultrasound of anatomy 08/24/2024 Travel 08/14/2024 Orders Only Maternal- Medicine at [facility] [address] [place] [address] Arminda Warner DO 08/14/2024 Abstract Maternal- Medicine at [facility] [address] [place] [address] Erlin Chung MD from Last 3 Months Immunizations Immunization Administration Dates Next Due COVID-19 Vaccine, vector-nr, rS-Ad26, PF, 0.5mL 02/28/2021 DTP / HiB 07/03/1996,1995,1995 DTaP 12/01/2000,05/11/1997 DTaP, Unspecified 12/01/2000 Hepatitis B 07/03/1996,1995 HiB 09/07/1996,1995 IPV 12/01/2000 Influenza, Injectable, quadrivalent (PF) 018(Deferred: ) MMR 12/01/2000,09/07/1996 OPV 07/03/1996,1995,1995 Tdap 11/18/2014 Family History * Patient is adopted Medical History Relation Name Comments No Known Problems Father Suicide Attempts Maternal Grandfather Heart attack Maternal Grandmother Suicide Attempts Maternal Grandmother No Known Problems Mother Suicide Attempts Paternal Grandfather Suicide Attempts Paternal Grandmother Relation Name Status Comments Father Maternal Grandfather Maternal Grandmother Mother Paternal Grandfather Paternal Grandmother Social History Tobacco Use Types Packs/Day Years [...] on file Sexual Orientation Not on file Last Filed Vital Signs Vital Sign Reading Time Taken Comments Blood Pressure 107/72 11/06/2024 11:38 AM EDT Pulse 83 11/06/2024 11:38 AM EDT Temperature 37 C (98.6 F) 03/15/2024 7:43 AM EDT Respiratory Rate 20 04/26/2023 3:51 PM EST Oxygen Saturation 98% 03/15/2024 7:43 AM EDT Inhaled Oxygen Concentration - - Weight 122.6 kg (270 lb 3.2 oz) 025 11:38 AM EDT Height 165.1 cm (5' 5 ) 11/06/2024 11:3 8 AM EDT Body Mass Index 44.96 11/06/2024 11:38 AM EDT Plan of Treatment Health Maintenance Due Date Last Done Comments Adult BMI Follow Up Plan 2013 Depression Screening 11/10/2023 11/09/2022 COVID-19 Vaccine (2 - 2023-2 5 season) 2024 02/28/2021 DTaP,Tdap and Td Vaccines (7 - Td or Tdap) 11/18/2024 11/18/2014, 12/01/2000, 12/01/2000, Additional history exists Influenza Vaccine 02/19/2025 Adult BMI Screening 11/06/2025 11/06/2024 Tobacco Screening 11/06/2025 11/06/2024 Pap Smear 07/31/2027 07/31/2024 Goals Goal Patient Goal Type Associated Problems Recent Progress Patient-Stated? Author D/C Home General Yes Yaneth Bright, SAMPLE CARD MAKER-CLASSIFIER OPERATOR Note: Evaluation of progress towards goal: Pt plans to d/c home with self care and family support. Medical Devices Implanted Type Area Swimming Pool Servicer Device Identifier Shelf Expiration Date Model / Serial / Lot Plate-01/22/2019 Implanted:01/22 (Quantity not on file) Plate Right: Hip Screw-01/22/2019 Implanted:01/22 (Quantity not on file) Screw Procedures Procedure Name Priority Date/Time Associated Diagnosis Comments US MFM OB FOLLOW-UP, 1 FETUS Routine 11/06/2024 1:37 PM EDT History of sleeve gastrectomy Hx of supraventricular tachycardia Encounter for follow-up ultrasound of anatomy Encounter for anatomic survey WIRELESS TELEMETRY (IN OFFICE) Routine 10/05/2024 8:59 AM EDT Hx of supraventricular tachycardia POCT EKG Routine 10/05/2024 Hx of supraventricular tachycardia US MFM OB FOLLOW-UP, 1 FETUS Routine 09/28/2024 4:34 PM EDT History of sleeve gastrectomy Hx of supraventricular tachycardia Encounter for follow-up ultrasound of anatomy US [facility] COMPREHENSIVE ANATOMIC SURVEY Routine 08/24/2024 9:48 AM EST History of sleeve gastrectomy Hx of supraventricular tachycardia Encounter for anatomic survey from Last 3 Months Results * US MFM OB FOLLOW-UP, 1 FETUS (11/06/2024 1:37 PM EDT) Only the most recent of3 resultswithin the time period is included. Anatomical Region Laterality Modality OB-EXPORT MANAGER Ultrasound 11/06/2024 11:3 9 AM EDT Narrative 11/06/2024 3:01 PM EDT NAME: CECI PERKINS : 1995 SEX: F Accession Number: [id number] ORDERING PHYSICIAN: LUIS ANGEL NGUYEN REFERRING PHYSICIAN: ARMINDA WARNER Coding ----- --------- Procedures 49385: Follow-up Ultrasound, per fetus Indication ----- --------- Obesity in , Previous , Previous bariatric surgery, Screening for follow-up survey History ----- --------- OB History 7. Para 1 [id number] Maternal Assessment ----- --------- Physical Exam Height [...] EFW (oz) 15 oz EFW by: Hadlock ([id number]) Extended Tibia 56.0 mm 32w 6d 26% Jody Founding Partner 3.4 mm CM 9.1 mm 87% Nicolaides [...] Thorax RVOT view. LVOT view. 3-vessel view. 8-hshvkz-lqytjlf view. Situs. Aortic arch view. Bicaval view. [...] 5.1 cm. Recommendations ----- --------- Please see [facility] documentation from today. anatomic survey is incomplete [...] PERKINS : 1995 SEX: F Accession Number: [id number] ORDERING PHYSICIAN: LUIS ANGEL NGUYEN REFERRING PHYSICIAN: ARMINDA WARNER Coding ----- --------- Procedures 60100: Follow-up Ultrasound, per fetus Indication ----- --------- Obesity in , Previous , Previous bariatric surgery,Screening for follow-up survey History ----- --------- OB History 7. Para 1 [id number] Maternal Assessment ----- --------- Physical Exam Height [...] Cerebellum tr 48.7 mm 36w 1d 71% Jairo AC 295.5 mm 33w 4d 26% Hadlock Femur 66.1 mm 34w 0d 28% Hadlock Humerus 60.9 mm 35w 2d 83% Jody HC / AC 1.04 EFW 2,246 g 22% Hadlock EFW (lb) 4 lb EFW (oz) 15 oz EFW by: Hadlock ([id number]) Extended Tibia 56.0 mm 32w 6d 26% Jody Founding Partner 3.4 mm CM 9.1 mm 87% Nicolaides [...] Thorax RVOT view. LVOT view. 3-vessel view. 3-vcccno-hrqiyww view.Situs. Aortic arch view. Bicaval view. Interventricular [...] 5.1 cm. Recommendations ----- --------- Please see [facility] documentation from today. anatomic survey is incomplete due to late gestational age andsuboptimal visualization. Subsequent follow up or other follow up as clinically determined byprimary OB provider unless otherwise specified by [facility]. Results forwarded to ordering provider so they can follow up with thepatient as necessary. us Luis Angel Nguyen MD [facility] ORDERABLES Final Re sult * Wireless Telemetry (In Office) (10/05/2024 8:59 AM EDT) Anatomical Region Laterality Modality Other Narrative 10/26/2024 10:27 AM EDT MCOT: 4d 13h 15m from 10/10/2024 was reviewed The patient's heart rate ranged from 56-120 bpm with an average heart rate of 89 bpm No arrhythmias seen No symptoms reported by the patient Ole Rojas MD [facility] ORDER GILES Final Result * POCT EKG (10/05/2024) us Ole Rojas MD ECG ORDERABLES Edited Re sult - Final MANUALLY TRANSCRIBED RESULTS from Last 3 Months Insurance [facility] MEDICAID MEDICAL [place] [facility] MEDICA[facility] Advance Directives * Full Code (Latest Code Status on File) Date Activated Date Inactivated Comments 11/10/2021 9:36 AM 11/11/2021 5:57 PM * Full Code Date Activated Date Inactivated Comments 04/24/2019 2:41 PM 04/27/2019 6:16 PM * Full Code Date Activated Date Inactivated Comments 09/26/2017 4:13 AM 10/03/2017 1:52 PM Care Teams Federal Appellate Law Clerk Relationship Specialty Start Date End Date Ally Craig, SAMPLE CARD MAKER-CLASSIFIER OPERATOR [address] [place] [address] PCP - General Family Medicine 04/12/18
--- OUTSIDE RECORDS SUMMARY | 2024-11-10 14:55 | XMS_ITS | Encounter Summary ---
Author Organization [employer] tem Address [id number] [address] [place] [address] Care Team Providers Care Crop Research Scientist Name Role Phone Ally Craig INSPECTORS AND REGULATORY OFFICERS-COMPONENT INSPECTOR Primary Care Provi collin Reason for Referral * Diagnostic Imaging (Routine) - Pending Review Specialty Diagnoses / Procedures Referred By Violeta dalal Referred To Contact Maternal and Medicine Diagnoses History of sleeve gastrectomy Hx of supraventricular tachycardia Encounter for anatomic survey Procedures [facility] with or without consult Cedric Warner DO [address] [place] [address] [place] [address] Phone: tel: fax: Maternal- Medicine at [facility] [address] [place] [address] Phone: tel: fax: Referral ID Status Reason Start Date Expiration Date V isits Requested Visits Authorized [id number] Pending Review 08/11/2024 08/11/2025 1 1 Encounter Details Date Type Department Care Team (Late st Contact Info) Description 08/11/2024 Orders Only Maternal- Medicine at [facility] [address] [place] [address] CMA History of sleeve gastrectomy (Primary Dx); Hx of supraventricular tachycardia; Encounter for anatomic survey Social History Tobacco Use Types Packs/Day Years [...] Author D/C Home General Yes Yaneth Bright, INSPECTORS AND REGULATORY OFFICERS-COMPONENT INSPECTOR Note: Evaluation of progress towards goal: Pt plans to d/c home with self care and family support. documented as of this encounter Results * [facility] COMPREHENSIVE ANATOMIC SURVEY (08/24/2024 9:48 AM EST) Anatomical Region Laterality Modality OB-TOOL OR DIE DRAWING CHECKER Ultrasound 08/24/2024 7:49 AM EST Narrative 08/24/2024 12:47 PM EST NAME: CECI PERKINS : 1995 SEX: F Accession Number: [id number] ORDERING PHYSICIAN: CEDRIC WARNER REFERRING PHYSICIAN: CEDRIC WARNER Coding ----- --------- Procedures 26008: Ultrasound, uterus, real time with image documentation, and maternal evaluation plus detailed anatomic examination, transabdominal approach;single or first gestation 67053: Transvaginal Ultrasound (OB) Indication ----- --------- Obesity in , Placenta previa, Screening for Anatomic Survey, Screening for cervical length History ----- --------- OB History 7. Para 1 [id number] Maternal Assessment ----- --------- Physical Exam Height 165 cm, 5 ft 5 in. Weight 113 kg, 249 lb. Initial weight 97 kg, 213 lb. BMI 41.44 kg/m . Initial BMI 35.45 kg/m . Weight gain 16 kg, 36 lb Method [...] 1 lb 7 oz EFW by Hadlock ([id number]) Head / Face / Neck Biometry: Cephalic index 0.69 <1% Nicolaides Guest Service Team Leader 4.2 mm CM 6.6 mm 70% Nicolaides [...] Maxilla. Mandible. Heart / Thorax LVOT view. 1-ncuqrt-ywausli view. Aortic arch view. Bicaval view. Ductal [...] 4.8 cm. Recommendations ----- --------- Please see [facility] documentation from today. The patient is scheduled in four to six week(s) to complete anatomic survey. Subsequent follow up or other follow up as clinically determined by primary OB provider unless otherwise specified by [facility]. Results forwarded to ordering provider so they can follow up with the patient as necessary. Procedure Note Erlin Chung MD - 08/24/2024 NAME: CECI PERKINS : 1995 SEX: F Accession Number: [id number] ORDERING PHYSICIAN: CEDRIC WARNER REFERRING PHYSICIAN: CEDRIC WARNER Coding ----- --------- Procedures 03059: Ultrasound, uterus, real time with imagedocumentation, and maternal evaluation plus detailed anatomic examination, transabdominalapproach;single or first gestation 50419: Transvaginal Ultrasound (OB) Indication ----- --------- Obesity in , Placenta previa, Screening for Anatomic Survey,Screening for cervical length History ----- --------- OB History 7. Para 1 [id number] Maternal Assessment ----- --------- Physical Exam Height 165 cm, 5 ft 5 in. Weight 113 kg, 249 lb. Initialweight 97 kg, 213 lb. BMI 41.44 kg/m . Initial BMI 35.45 kg/m . Weight gain 16 kg, 36 lb Method [...] 1 lb 7 oz EFW by Hadlock ([id number]) Head / Face / Neck Biometry: Cephalic index 0.69 <1% Nicolaides Guest Service Team Leader 4.2 mm CM 6.6 mm 70% Nicolaides [...] Maxilla. Mandible. Heart / Thorax LVOT view. 0-imzdfx-adzazxl view. Aortic arch view. Bicavalview. Ductal arch [...] 4.8 cm. Recommendations ----- --------- Please see [facility] documentation from today. The patient is scheduled in four to six week(s) to complete anatomicsurvey. Subsequent follow up or other follow up as clinically determined byprimary OB provider unless otherwise specified by MFM. Results forwarded to ordering provider so they can follow up with thepatient as necessary. us Cedric R Alana DO [facility] US ORDERABLES Final Result documented in this encounter Visit Diagnoses Diagnosis History of sleeve gastrectomy- Primary Hx of supraventricular tachycardia Encounter for anatomic survey History of sleeve gastrectomy Hx of supraventricular tachycardia Encounter for anatomic survey documented in this encounter Additional Health Concerns Assessment Noted Time PHQ-9 Depression Total Score: 19 023 10:14 AM EDT documented as of this encounter Care Teams Crop Research Scientist Relationship Specialty Start Date End Date Ally Craig APRN-COMPONENT INSPECTOR [address], [place] [address] PCP - General Family Medicine 04/12/18 documented as of this encounter
--- OUTSIDE RECORDS SUMMARY | 2024-11-10 14:55 | XMS_ITS | Encounter Summary ---
Author Organization [facility] Address [id number] [address] [place] [address] Care Team Providers Care Turpentiner Name Role Phone Ally Craig LABOR TRAINING MANAGER-EGG BUYER Primary Care Provi collin Encounter Details Date Type Department Care Team (Late st Contact Info) Description 06/08/2022 Orders Only [facility] [address] [place] [address] [place] [address] External, Scanning Provider Social History Tobacco Use Types Packs/Day Years [...] Author D/C Home General Yes Yaneth Bright, LABOR TRAINING MANAGER-EGG BUYER Note: Evaluation of progress towards goal: Pt plans to d/c home with self care and family support. documented as of this encounter Procedures Procedure Name Priority Date/Time Associated Diagnosis Comments MR ARTHROGRAM HIP RT W CONT Routine 06/05/2022 documented in this encounter Results * MR arthrogram hip right with contrast (06/05/2022) Anatomical Region Laterality Modality MSK, Hip, Lower Extremities, Acetabulum, MSK Cov era Right Magnetic Resonance us Scanning Provider External IMG MRI ORDERABLES Fi nal Result documented in this encounter Visit Diagnoses Not on filedocumented in this encounter Additional Health Concerns Assessment Noted Time PHQ-9 Depression Total Score: 0 04/01/20 21 11:14 AM EDT documented as of this encounter Care Teams Turpentiner Relationship Specialty Start Date End Date Ally Craig, RAFA-EGG BUYER [address], [place] [address] PCP - General Family Medicine 04/12/18 documented as of this encounter
--- OUTSIDE RECORDS SUMMARY | 2024-11-10 14:55 | XMS_ITS | Encounter Summary ---
Author Organization [facility] Address [address] [place] [address] Care Team Providers Care White Lead Filterer Name Role Phone Unavailable Primary Care Provider Unavailabl e Encounter Details Date Type Department Care Team (Late st Contact Info) Description 11/03/2024 Telephone [facility] [address] [place] [address] Celsa Coats MA Social History Tobacco Use Types Packs/Day Years [...] encounter Miscellaneous Notes * Telephone Encounter - Celsa Coats MA - 11/03/2024 10:41 AM EDT Rx resent documented in this encounter Plan of Treatment Upcoming Encounters Date Type Department Care Team (Late st Contact Info) Description 11/14/2024 1:50 PM EDT Routine [facility] [address] [place] [address] Cedric Warner, DO [address] [facility] [address] [place], [place] [id number] documented as of this encounter Visit Diagnoses Diagnosis H/O gastric sleeve documented in this encounter
--- OUTSIDE RECORDS SUMMARY | 2024-11-10 14:55 | XMS_ITS | Encounter Summary ---
Author Organization [facility] Address [address] [place] [address] Care Team Providers Care Lending Consultant Name Role Phone Unavailable Primary Care Provider Unavailabl e Encounter Details Date Type Department Care Team (Late st Contact Info) Description 08/17/2024 Orders Only [facility] [address] [facility] [place] [address] Elena Constantino MA [address] [place] [address] [place] [address] Social History Tobacco Use Types Packs/Day Years [...] PM EDT Routine [facility] [address] [facility] [place] [address] Cedric Warner DO [address] [place] [address] Dr [place], [place] [id number] documented as of this encounter Procedures Procedure Name Priority Date/Time Associated Diagnosis Comments PAP SMEAR Routine 07/31/2024 12:00 AM EST documented in this encounter Results * Pap Smear (07/31/2024 12:00 AM EST) Swab Cervical swab / Unknown us [facility] CYTOLOGY ORDERABLES Final Re sult EXTERNAL LAB documented in this encounter Visit Diagnoses Not on filedocumented in this encounter
--- OUTSIDE RECORDS SUMMARY | 2024-11-10 14:55 | XMS_ITS | Patient Health Record ---
Author Organization [facility] Address [address] [place] [address] Care Team Providers Care Pipe Stem Repairer Name Role Phone Pascale Mcmahon Unavailable [phone] Reason For Referral No Information Plan Of Treatment No Information Insurance Providers Payer Name Payer Address Payer Phone Subscriber Number Group Number Insured Name Patient Relationship to Insured Coverage Start Date Coverage End Date Medicaid [employer] [place] [address] [place] [phone] [id number] MADDIE ORNELAS Self - patient is the insured
--- OUTSIDE RECORDS SUMMARY | 2024-11-10 14:55 | XMS_ITS | Encounter Summary ---
Author Organization [facility] Address [address] [place] [address] Care Team Providers Care Cheese Factory Worker Name Role Phone Unavailable Primary Care Provider Unavailabl e Encounter Details Date Type Department Care Team (Late st Contact Info) Description 11/09/2024 Bamboo flowsheet [facility] OB [address] [place] [address] Zoraida Travis PA [address] [facility] [address] [place], [facility] Social History Tobacco Use Types Packs/Day Years [...] PM EDT Routine [facility] [address] [place] [address] Cedric Warner DO [address] [facility] [address] [place], [place] [id number] documented as of this encounter Visit Diagnoses Not on filedocumented in this encounter
--- OUTSIDE RECORDS SUMMARY | 2024-11-10 14:55 | XMS_ITS | Encounter Summary ---
Author Organization [facility] Address [facility]-[id number] [address] [place] [address] Care Team Providers Care Compensation Manager Name Role Phone Ally Craig CHILD CARE CENTRE MANAGER-TRASH TRUCK DRIVER Primary Care Provi collin Encounter Details Date Type Department Care Team (Late st Contact Info) Description 03/29/2024 Telephone [facility] General Surgery-B[facility]ric [address] [address] Lauren Arndt MD [address] [place] [address] Social History Tobacco Use Types Packs/Day Years [...] Recorded Purpose and direction in life Unknown 02 /04/2021 Comments No Sex and Gender Information Value Date Recorded Sex Assigned at Not on file Legal Sex Female 11:54 AM EDT Gender Identity Not on file Sexual Orientation Not on file documented as of this encounter Miscellaneous Notes * Telephone Encounter - Melvina Thakkar - 03/29/2024 10:09 AM EDT 03/29/24 PT LMOM TO R/S, I CALLED PT AND HAD TO LMOM FOR HER. LB documented in this encounter Plan of Treatment Not on file documented as of this encounter Goals Goal Patient Goal Type Associated Problems Recent Progress Patient-Stated? Author D/C Home General Yes Yaneth Bright APRN-TRASH TRUCK DRIVER Note: Evaluation of progress towards goal: Pt plans to d/c home with self care and family support. documented as of this encounter Visit Diagnoses Not on filedocumented in this encounter Additional Health Concerns Assessment Noted Time PHQ-9 Depression Total Score: 19 023 10:14 AM EDT documented as of this encounter Care Teams Compensation Manager Relationship Specialty Start Date End Date Ally Craig, CHILD CARE CENTRE MANAGER-TRASH TRUCK DRIVER [address], [place] [address] PCP - General Family Medicine 04/12/18 documented as of this encounter
--- NOTE | 2024-11-10 14:56 | US_ITS ---
[place] [id number] Patient Name: MADDIE ORNELAS MRN: [id number] date: 1995 Sex: F Assigned Patient Location: [facility] Current Patient Location: [facility] Accession/Order Number: [id number] Exam Date: 11/10/2024 15:47 Report Date: 11/10/2024 15:48 At the request of: ARMINDA WHITE DO Procedure: US OB BPP w non-stress Ultrasound biophysical profile HISTORY: History of gastric sleeve There is adequate breathing movement, gross body movement, tone and amniotic fluid volume for total score of 8 out of 8. Amniotic fluid index is 14.2 cm within normal limits. heart rate is 144 bpm. Possible nuchal cord identified. US/US OB BPP w non-stress IMPRESSION: Adequate biophysical profile. Possible nuchal cord. Impression dictated by: Anthony Diaz M.D. 11/10/2024 3:48 PM Dictation Location: [employer] Electronically authenticated by: [id number] Y Date: 11/10/2024 15:48
--- OUTSIDE RECORDS SUMMARY | 2024-11-10 14:56 | XMS_ITS | Encounter Summary ---
Author Organization [facility] Address [address] [place] [address] Care Team Providers Care Senior Electrical Estimator Name Role Phone Unavailable Primary Care Provider Unavailabl e Encounter Details Date Type Department Care Team (Late st Contact Info) Description 07/31/2024 Abstract [facility] OB [address] [place] [address] Cedric Warner DO [address] [place], [id number] Social History Tobacco Use Types Packs/Day Years [...] Routine [facility] OB [address] [place] [address] Cedric Warner DO [address] [place], [place] [id number] documented as of this encounter Visit Diagnoses Not on filedocumented in this encounter
--- OUTSIDE RECORDS SUMMARY | 2024-11-10 14:56 | XMS_ITS ---
Author Organization [facility] Source Produ ction (ClinicalSummary Clone) Address Unknown Care Team Providers Care Rough And Trueing Machine Operator Name Role Phone Unavailable Primary Care Physician Unavailab le Results * [UNITY] ANEUPLOIDY NIPT Performed by: [employer] Component Value Range Date Fraction 3.1% 06/12/2024 09 :39 pm UTC 22q11.2 Microdeletion LOW RISK <1 in 10,000 06/12/2024 09:39 pm UTC Sex Chromosome Aneuploidy NOT DETECTED 09:39 pm UTC Monosomy X LOW RISK <1 in 10,000 2023 09:39 pm UTC Trisomy 13 LOW RISK <1 in 10,000 2023 09:39 pm UTC Trisomy 18 LOW RISK <1 in 10,000 2023 09:39 pm UTC Trisomy 21 LOW RISK <1 in 10,000 2023 09:39 pm UTC Sex FEMALE 06/12/2024 09:3 9 pm UTC Gestation DEVRIES 06/12/20 09:39 pm UTC For detailed report, see PDF See PDF 06/12/2024 09:39 pm UTC 06/12/2024 09:3 9 pm UTC Social History Observation Value Start Date End Date
--- OUTSIDE RECORDS SUMMARY | 2024-11-10 14:56 | XMS_ITS | Encounter Summary ---
Author Organization [facility] tem Address [facility]-[id number] [address] [place] [address] Care Team Providers Care Stone Rubber Name Role Phone KiaraAlly stevenson RETAIL CLIENT SOLUTIONS ANALYST-BAKER TEST Primary Care Provi collin Encounter Details Date Type Department Care Team (Late st Contact Info) Description 11/06/2020 Telephone [facility] Family [facility] [address] [place] [address] [place] [address] Yong Veliz CMA Social History Tobacco Use Types Packs/Day Years Used Date Smoking Tobacco: Never Smokeless Tobacco: Never Alcohol Use Standard Drinks/Week Comments Yes 0 (1 standard drink = 0.6 oz pure alcohol) OCCASSIONALLY WHEN NOT PHQ-2 Answer Date Recorded Total Score 0 01/22/2020 Childcare Answer Date Recorded Childcare Unknown 11/30/2018 [...] Exposure Response Date Recorded In the last month, have you been in contact with someone who was confirmed or suspected to have Coronavirus / COVID-19? No / Unsure 11/05/2020 9:21 AM EDT documented as of this encounter Miscellaneous Notes * Telephone Encounter - Yong Dia CMA - 11/06/2020 3:42 PM EDT ----- Message from CLIFFORD Gaines sent at 11/06/2020 3:31 PM EDT ----- Normal EKG * Telephone Encounter - Yong Dia CMA - 11/06/2020 3:42 PM EDT Informed pt of results, she verbalized understanding. documented in this encounter Plan of Treatment [...] filedocumented in this encounter Additional Health Concerns Infection Onset Date Last Indicated Resolved Time COVID-19 Rule-Out 05/27/2021 05/27/2021 05/28/2021 7:43 PM EST Assessment Noted Time PHQ-9 Depression Total Score: 0 01/22/20 20 2:00 PM EDT documented as of this encounter Care Teams Stone Rubber Relationship Specialty Start Date End Date Ally Craig APRN-CNP [address], [place] [address] PCP - General Family Medicine 04/12/18 documented as of this encounter
--- OUTSIDE RECORDS SUMMARY | 2024-11-10 14:56 | XMS_ITS | Encounter Summary ---
Author Organization [facility] tem Address [facility]-[id number] [address] [place] [address] Care Team Providers Care Machine Umbrella Tipper Name Role Phone Ally Craig APRN-LONG LINE TEAMSTER Primary Care Provi collin Encounter Details Date Type Department Care Team (Late st Contact Info) Description 08/20/2021 Telephone [facility] Family Medicine [address] [place] [address] [place] [address] Leslie Deal CMA Social History Tobacco Use Types Packs/Day [...] Author D/C Home General Yes Yaneth Bright, RAFA-LONG LINE TEAMSTER Note: Evaluation of progress towards goal: Pt plans to d/c home with self care and family support. documented as of this encounter Visit Diagnoses Not on filedocumented in this encounter Additional Health Concerns Assessment Noted Time PHQ-9 Depression Total Score: 0 04/01/20 21 11:14 AM EDT documented as of this encounter Care Teams Machine Umbrella Tipper Relationship Specialty Start Date End Date Ally Craig APRN-LONG LINE TEAMSTER [address], [place] [address] PCP - General Family Medicine 04/12/18 documented as of this encounter
--- OUTSIDE RECORDS SUMMARY | 2024-11-10 14:56 | XMS_ITS | Encounter Summary ---
Author Organization [facility] Address [id number] [address] [place] [address] Care Team Providers Care A P Manager Name Role Phone Kiara, Ally Donn CAREER DEVELOPMENT COORDINATOR/TEACHER-IMMIGRATION LAWYER Primary Care Provi collin Encounter Details Date Type Department Care Team (Late st Contact Info) Description 12/17/2020 Orders Only [facility] General Surgery-B[facility]ric [address] [facility] [place] [id number] External, Scanning Provider Social History Tobacco Use [...] have Coronavirus / COVID-19? No / Unsure 12/11/2020 1:12 PM EDT documented as of this encounter Plan of Treatment Not on file documented as of this encounter Goals Goal Patient Goal Type Associated Problems Recent Progress Patient-Stated? Author Husain/C Home General Yes Yaneth Bright, CAREER DEVELOPMENT COORDINATOR/TEACHER-IMMIGRATION LAWYER Note: Evaluation of progress towards goal: Pt plans to d/c home with self care and family support. documented as of this encounter Procedures Procedure Name Priority Date/Time Associated Diagnosis Comments PAP SMEAR Routine 12/17/2020 documented in this encounter Results * PAP SMEAR (12/17/2020) us Scanning Provider External CO PROFESSIONAL SERVI LINDA Final Result MANUALLY TRANSCRIBED RESULTS documented in this encounter Visit Diagnoses Not on filedocumented in this encounter Additional Health Concerns Infection Onset Date Last Indicated Resolved Time COVID-19 Rule-Out 05/27/2021 05/27/2021 05/28/2021 7:43 PM EST Assessment Noted Time PHQ-9 Depression Total Score: 0 01/22/20 20 2:00 PM EDT documented as of this encounter Care Teams A P Manager Relationship Specialty Start Date End Date Ally Craig, CAREER DEVELOPMENT COORDINATOR/TEACHER-IMMIGRATION LAWYER [address], [place] [address] PCP - General Family Medicine 04/12/18 documented as of this encounter
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
--- OUTSIDE RECORDS SUMMARY | 2024-11-10 14:56 | XMS_ITS | Encounter Summary ---
Author Organization [facility] Address [facility]-[id number] [address] [place] [address] Care Team Providers Care Safety And Health Manager Name Role Phone KiaraAlly stevenson APRN-HYDRODYNAMICIST Primary Care Provi collin Encounter Details Date Type Department Care Team (Late st Contact Info) Description 09/25/2021 Orders Only [facility] General Surgery-Bariatric [address] [facility] [place] [phone] Evelyn Flower CMA Social History Tobacco Use [...] Author D/C Home General Yes Yaneth Bright, RAFA-HYDRODYNAMICIST Note: Evaluation of progress towards goal: Pt plans to d/c home with self care and family support. documented as of this encounter Visit Diagnoses Not on filedocumented in this encounter Additional Health Concerns Assessment Noted Time PHQ-9 Depression Total Score: 0 04/01/20 21 11:14 AM EDT documented as of this encounter Care Teams Safety And Health Manager Relationship Specialty Start Date End Date Ally Craig, RAFA-HYDRODYNAMICIST [address], [place] [address] PCP - General Family Medicine 04/12/18 documented as of this encounter
--- OUTSIDE RECORDS SUMMARY | 2024-11-10 14:56 | XMS_ITS | Encounter Summary ---
Author Organization [facility] Address [facility]-[id number] [address] [place] [address] Care Team Providers Care Setter Juice Packaging Machines Name Role Phone Ally Craig ASSEMBLER TRACTOR-ACTIVITIES COUNSELOR Primary Care Provi collin Encounter Details Date Type Department Care Team (Late st Contact Info) Description 07/23/2022 [facility] [address] [place] [address] [place] [address] Gi Motley CMA Social History Tobacco Use Types Packs/Day [...] have Coronavirus / COVID-19? No / Unsure 07/16/2022 8:27 AM EST documented as of this encounter Plan of Treatment Not on file documented as of this encounter Goals Goal Patient Goal Type Associated Problems Recent Progress Patient-Stated? Author D/C Home General Yes Yaneth Bright, ASSEMBLER TRACTOR-ACTIVITIES COUNSELOR Note: Evaluation of progress towards goal: Pt plans to d/c home with self care and family support. documented as of this encounter Visit Diagnoses Not on filedocumented in this encounter Additional Health Concerns Assessment Noted Time PHQ-9 Depression Total Score: 0 04/01/20 21 11:14 AM EDT documented as of this encounter Care Teams Setter Juice Packaging Machines Relationship Specialty Start Date End Date Ally Craig, ASSEMBLER TRACTOR-ACTIVITIES COUNSELOR [address], [place] [address] PCP - General Family Medicine 04/12/18 documented as of this encounter
--- OUTSIDE RECORDS SUMMARY | 2024-11-10 14:56 | XMS_ITS | Encounter Summary ---
Author Organization [facility] Address [facility]-[id number] [address] [place] [address] Care Team Providers Care Sales Manager [place] Name Role Phone KiaraAlly stevenson BRUSH LOADER AND HANDLE ATTACHER-PLASTER TENDER Primary Care Provi collin Encounter Details Date Type Department Care Team (Late st Contact Info) Description 10/09/2020 [facility] [address] [place] [address] [place] [address] Yong Veliz CMA Social History [...] have Coronavirus / COVID-19? No / Unsure 10/04/2020 9:50 AM EDT documented as of this encounter Miscellaneous Notes * Telephone Encounter - Yong Dia CMA - 10/09/2020 9:33 AM EDT I called patient to see if she's had her EKG yet for cardiac clearance in order to start her psych meds. She stated that she has not, she will try to get it completed this week. documented in this encounter Plan of Treatment Not on file documented as of this encounter Goals Goal Patient Goal Type Associated Problems Recent Progress Patient-Stated? Author D/C Home General Yes Yaneth Bright, BRUSH LOADER AND HANDLE ATTACHER-PLASTER TENDER Note: Evaluation of progress towards goal: Pt [...] documented as of this encounter Care Teams Sales Manager [place] Relationship Specialty Start Date End Date Ally Craig, BRUSH LOADER AND HANDLE ATTACHER-PLASTER TENDER [address], [place] [address] PCP - General Family Medicine 04/12/18 documented as of this encounter
--- OUTSIDE RECORDS SUMMARY | 2024-11-10 14:56 | XMS_ITS | Encounter Summary ---
Author Organization [facility] Address [address] [place] [address] Care Team Providers Care Corporate Event Planner Name Role Phone Unavailable Primary Care Provider Unavailabl e Encounter Details Date Type Department Care Team (Late st Contact Info) Description 06/15/2024 Abstract [facility] OB [address] [place] [address] Cedric Warner, DO [address], [facility]11 Social History Tobacco Use Types Packs/Day Years [...] Routine [facility] OB [address] [place] [address] Cedric Warner DO [address] [place] [address] documented as of this encounter Visit Diagnoses Not on filedocumented in this encounter
--- OUTSIDE RECORDS SUMMARY | 2024-11-10 14:56 | XMS_ITS | Encounter Summary ---
Author Organization [facility] tem Address [id number] [address] [place] [address] Care Team Providers Care Retail Sales Advisor Name Role Phone Ally Craig PMO CONSULTANT-GARBAGE WORKER Primary Care Provi collin Encounter Details Date Type Department Care Team (Late st Contact Info) Description 03/27/2021 Telephone [facility] [place] [facility] Physicians Family Medicine [address] [place] [address] [address] [place] [address] Ally Craig, PMO CONSULTANT-GARBAGE WORKER [address] [facility] [address], [place] [address] Social History Tobacco Use Types Packs/Day Years [...] have Coronavirus / COVID-19? No / Unsure 03/13/2021 9:52 AM EDT documented as of this encounter Miscellaneous Notes * Telephone Encounter - Mckayla Nobles - 03/27/2021 2:35 PM EDT Jana said that her psychiatrist office closed and she did not know if You want to see her You want her to see someone else She will need a referral or appt. With you . * Telephone Encounter - CLIFFORD Gaines - 03/27/2021 2:35 PM EDT Schedule appointment with PCP documented in this encounter Plan of Treatment [...] documented as of this encounter Care Teams Retail Sales Advisor Relationship Specialty Start Date End Date Ally Craig APRN-CNP [address], [place] [address] PCP - General Family Medicine 04/12/18 documented as of this encounter
--- OUTSIDE RECORDS SUMMARY | 2024-11-10 14:56 | XMS_ITS | Encounter Summary ---
Author Organization [facility] tem Address [id number] [address] [place] [address] Care Team Providers Care Rad Technologist Name Role Phone Ally Craig APRN-STOCKFEED MILLER Primary Care Provi collin Reason for Visit * Reason Onset Date Comments Med Refill 04/30/2020 Encounter Details Date Type Department Care Team (Late st Contact Info) Description 04/30/2020 Telephone [facility] Physicians Family Medicine [address] [place] [address] [place] [address] Nataly Caballero CMA Med Refill Social History Tobacco Use Types Packs/Day Years Used Date Smoking Tobacco: Never Smokeless Tobacco: Never Alcohol Use Standard Drinks/Week Comments Yes 0 (1 standard drink = 0.6 oz pure alcohol) OCCASSIONALLY WHEN NOT PHQ-2 Answer Date Recorded Total Score 0 01/22/2020 Childcare Answer Date Recorded Childcare Unknown 11/30/2018 Employment Answer Date Recorded Employment Unknown 11/30/2018 Comments No Sex and Gender Information Value [...] Author D/C Home General Yes Yaneth Bright, CLOTH NAPPING SUPERVISOR-STOCKFEED MILLER Note: Evaluation of progress towards goal: Pt [...] documented as of this encounter Care Teams Rad Technologist Relationship Specialty Start Date End Date Ally Craig, RAFA-STOCKFEED MILLER [address], [place] [address] PCP - General Family Medicine 04/12/18 documented as of this encounter
--- OUTSIDE RECORDS SUMMARY | 2024-11-10 14:56 | XMS_ITS | Encounter Summary ---
Author Organization [facility] Address [address] [place] [address] Care Team Providers Care Animal Scientist Name Role Phone Unavailable Primary Care Provider Unavailabl e Encounter Details Date Type Department Care Team (Late st Contact Info) Description 06/27/2024 Abstract [facility] OB [address] [address] Felicita Wyatt LPN Social History Tobacco Use Types Packs/Day [...] Description 11/14/2024 1:50 PM EDT Routine [facility] [address] [place] [address] Cedric Warner DO [address], [facility] documented as of this encounter Visit Diagnoses Not on filedocumented in this encounter
--- OUTSIDE RECORDS SUMMARY | 2024-11-10 14:56 | XMS_ITS | Encounter Summary ---
Author Organization [facility] Address [address] [place] [address] Care Team Providers Care Registered Respiratory Therapist Name Role Phone Unavailable Primary Care Provider Unavailabl e Encounter Details Date Type Department Care Team (Late st Contact Info) Description 06/06/2024 Abstract [facility] OB [address] [place] [address] Cedric Warner, DO [address], [facility] Social History Tobacco Use Types Packs/Day Years [...] Routine [facility] [address] [place] [address] Cedric Warner DO [address] [place] [address] documented as of this encounter Visit Diagnoses Not on filedocumented in this encounter
[2024-11-10 15:32] VITALS: BP 113/55; PULSE 101
== END 2024-11-10 16:05 | disposition home or self-care (01) ==
LOC: US 14:53 → FBC 14:55
PROVIDERS: PCP Nurse Practitioner; Visit Provider Obstetrics & Gynecology
DX: O36.63X0 Maternal care for excessive fetal growth, third trimester, not applicable or unspecified (principal)
CPT/HCPCS: 76818

== ENCOUNTER 2024-11-14 12:02 | Outpatient (OUT) | payer OTHER, SELFPAY ==
[2024-11-14 12:16] VITALS: BP 126/72; PULSE 111
--- OUTSIDE RECORDS SUMMARY | 2024-11-14 18:13 | XMS_ITS | CCD ---
Author Organization [facility] Care Team Providers Care Knuckle Bender Name Role Phone Ally Craig Primary Care [...] Provider Unavailabl e RAFA Escalera Attending Provider [phone] NON STAFF Primary Care Unavailable Janna Escalera [...] Unavailable Primary Care Provider Unavailabl e Kiara CLAM DREDGE BOAT CAPTAIN-TRAINING PROGRAM DEVELOPER, Ally A Primary Care Provi collin Kiara CLAM DREDGE BOAT CAPTAIN-TRAINING PROGRAM DEVELOPER, Ally A Primary Care Provi collin ZORAIDA [...] extract Drug Allergy [facility] Repository (11 sources) strawberry allergenic extract; Translations: [STRAWBERRY EXTRACT] Drug Allergy 9 Anaphylaxis [place], [place] (13 sources) [place] Propensity to adverse reactions 9 Anaphylaxis [facility] Medications Current Medications Medication Drug Class(es) Dates Sig (Normalized) Sig (Original) acetaminophen 500 mg oral tablet (1 source) Start: 02-01-2019 acetaminophen (TYLENOL) tablet 1,000 mg [id number] 200 actuat albuterol 0.09 mg/actuat metered dose [...] by mouth every week vitamin D (ERGOCALCIFEROL) 48924 units CAPS capsule Take 1 capsule by [...] B12 Start: 02-09-2019 End: 02-09-2019 iron polysaccharide uwlwjmg-W36-hvfem acid (FERREX-FORTE) 150-0.025-1 MG capsule 1 mg [...] OB BPP W NON-STRESS on 11-03-2024 [place] [address] Ultrasound Report Signed Patient: MADDIE RAMAN MR#: [id number] : 1995 Acct:[id number] Age/Sex: 29 / F ADM Date: 11/03/24 Loc: US Attending Dr: Cedric Warner D.O. Ordering Physician: Cedric Warner D.O. Date of Service: 11/03/24 Procedure(s): US OB BPP w non-stress Accession Number(s): [id number] cc: Cedric Warner D.O.; Ally Craig NP [place] [id number] Patient Name: MADDIE RAMAN MRN: [facility]:[id number] date: 1995 Sex: F Assigned Patient Location: [facility] Current Patient Location: Accession/Order Number: [id number] Exam Date: 11/03/2024 16:12 Report Date: 11/03/2024 [...] Bland M.D. 11/03/2024 4:13 PM Dictation Location: [place] Electronically authenticated by: [id number] Y Date: 11/03/2024 16:13 Dictated By: Cristo Bland M.D. Signed By: 11/03/241615 DD/ 12 TD/TT: Viticulturist: [facility] Radiology, Radiologist, MD - 11/03/2024 [place] [address] Ultrasound Report Signed Patient: MADDIE RAMAN MR#: [id number] : 1995 Acct:[id number] Age/Sex: 29 / F ADM Date: 11/03/24 Loc: US Attending Dr: Cedric Warner D.O. Ordering Physician: Cedric Warner D.O. Date of Service: 11/03/24 Procedure(s): US OB BPP w non-stress Accession Number(s): [id number] cc: Cedric Warner D.O.; Ally Craig NP The [address] [address] Patient Name: MADDIE RAMAN MRN: [facility]:[id number] date: 1995 Sex: F Assigned Patient Location: [facility] Current Patient Location: Accession/Order Number: [id number] Exam Date: 11/03/2024 16:12 Report Date: 11/03/2024 [...] Bland M.D. 11/03/2024 4:13 PM Dictation Location: [place] Electronically authenticated by: [id number] Y Date: 11/03/2024 16:13 Dictated By: Cristo Bland M.D. Signed By: 11/03/241615 DD/ 12 TD/TT: Viticulturist: [facility] [employer] Radiology Study observation (narrative) [facility] US OB BPP W NON-STRESS Ordered By: Radiologist Radiology on 11-03-2024 [facility] [employer] Work Phone: US OB BPP W NON-STRESS on 10-30-2024 [place] [address] Ultrasound Report Signed Patient: MADDIE RAMAN MR#: [id number] : 1995 Acct:[id number] Age/Sex: 29 / F ADM Date: 10/27/24 Loc: US Attending Dr: Cedric Warner D.O. Ordering Physician: Cedric Warner D.O. Date of Service: 10/27/24 Procedure(s): US OB BPP w non-stress Accession Number(s): [id number] cc: Cedric Warner D.O.; Ally Craig NP [place] [phone] Patient Name: MADDIE RAMAN MRN: [facility]:[id number] date: 1995 Sex: F Assigned Patient Location: Current Patient Location: Accession/Order Number: [id number] Exam Date: 10/30/2024 09:26 Report Date: 10/30/2024 09:28 At the request of: CEDRIC WARNER DO Procedure: US OB BPP w non-stress BIOPHYSICAL PROFILE: CLINICAL INFORMATION: HISTORY OF GASTRIC SLEEVE Z 90.3 COMPARISON: 08/05/2024 There is a single live intrauterine gestation in cephalic presentation. The reported gestational age is 33 weeks 1 day. The heart rate iczvnuqt022 beats per minute. FINDINGS: TONE: 1 or [...] Jensen M.D. 10/30/2024 9:28 AM Dictation Location: [place] [address] Electronically authenticated by: [id number] Y Date: 10/30/2024 09:28 Dictated By: Smita Jensen M.D. Signed By: 10/30/24930 DD/ 7 TD/TT: Viticulturist: [facility] Radiology, Radiologist, - 10/30/2024 [place] [address] Ultrasound Report Signed Patient: MADDIE RAMAN MR#: [id number] : 1995 Acct:[id number] Age/Sex: 29 / F ADM Date: 10/27/24 Loc: US Attending Dr: Cedric Warner D.O. Ordering Physician: Cedric Warner D.O. Date of Service: 10/27/24 Procedure(s): US OB BPP w non-stress Accession Number(s): [id number] cc: Cedric Warner D.O.; Ally Craig NP [place] [address] Patient Name: MADDIE RAMAN MRN: [facility]:[id number] date: 1995 Sex: F Assigned Patient Location: US Current Patient Location: Accession/Order Number: [id number] Exam Date: 10/30/2024 09:26 Report Date: 10/30/2024 09:28 At the request of: CEDRIC WARNER DO Procedure: US OB BPP w non-stress BIOPHYSICAL PROFILE: CLINICAL INFORMATION: HISTORY OF GASTRIC SLEEVE Z 90.3 COMPARISON: 08/05/2024 There is a single live intrauterine gestation in cephalic presentation. The reported gestational age is 33 weeks 1 day. The heart rate [id number] beats per minute. FINDINGS: TONE: 1 or [...] Jensen M.D. 10/30/2024 9:28 AM Dictation Location: [place] [address] Electronically authenticated by: [id number] Y Date: 10/30/2024 09:28 Dictated By: Smita Jensen M.D. Signed By: 10/30/2431 DD/ 7 TD/TT: Viticulturist: [facility] Radiology Study observation (narrative) [facility] OB BPP W NON-STRESS Ordered By: Radiologist Radiology on 10-30-2024 [facility] Work Phone: Urinalysis macro (dipstick) panel (U)on 10-25-2024 Bilirubin, UA Negative Negative - 4(70) +++ mg/dL [facility] Blood, UA Negative Negative - 50 Miguel Angel/mcL [facility] Clarity, UA Clear [facility] Color, UA Yellow [facility] Glucose, UA Negative Negative - 1999(110) ++++ mg/dL [facility] Interpretation and review of laboratory results Normal [facility] Ketones, UA Negative Negative - 160(16) ++++ mg/dL [facility] Leukocytes, UA Negative Negative - 500+++ Eleonora/mcL [facility] Nitrite, UA Negative Negative - Positive [facility] pH, UA 6.5 5 - 9 [facility] Protein, UA Negative Negative - 1999(20) ++++ mg/dL [facility] Spec Grav, UA 1.015 1 - 1.03 [facility] Urobilinogen, UA 0.2 0.2 - 12 mg/dL [facility] Urinalysis macro (dipstick) panel (U)on 10-11-2024 Bilirubin, UA Negative Negative - 4(70) +++ mg/dL [facility] Blood, UA Negative Negative - 50 Miguel Angel/mcL [facility] Clarity, UA Clear [facility] Color, UA Yellow [facility] Glucose, UA Negative Negative - 1999(110) ++++ mg/dL [facility] Interpretation and review of laboratory results Normal [facility] Ketones, UA Negative Negative - 160(16) ++++ mg/dL [facility] Leukocytes, UA Negative Negative - 500+++ Eleonora/mcL [facility] Nitrite, UA Negative Negative - Positive [facility] pH, UA 7 5 - 9 [facility] Protein, UA Trace Negative - 1999(20) ++++ mg/dL [facility] Spec Grav, UA 1.025 1 - 1.03 [facility] Urobilinogen, UA 0.2 0.2 - 12 mg/dL [facility] POCT EKGon 10-05-2024 [facility] Urinalysis macro (dipstick) panel (U)on 09-26-2024 Bilirubin, UA Negative Negative - 4(70) +++ mg/dL [facility] Blood, UA Negative Negative - 50 Miguel Angel/mcL [facility] Clarity, UA Clear [facility] Color, UA Tiffany [facility] Glucose, UA Negative Negative - 2000(110) ++++ mg/dL [facility] Interpretation and review of laboratory results Abnormal [facility] Ketones, UA Negative Negative - 160(16) ++++ mg/dL [facility] Leukocytes, UA Negative Negative - 500+++ Eleonora/mcL [facility] Nitrite, UA Negative Negative - Positive [facility] pH, UA 6 5 - 9 [facility] Protein, UA Positive Negative - 2000(20) ++++ mg/dL [facility] Comment on above: 30 Spec Grav, UA 1.03 1 - 1.03 [facility] Urobilinogen, UA 0.2 0.2 - 12 mg/dL [facility] No Panel InformationOrdered By: Radiologist Radiology on 08-05-2024 [facility] Work Phone: No Panel Informationon 08-05 Radiology Study observation (narrative) [facility] US OB ANATOMYon 08-05-2024 [place] [id number] Ultrasound Report Signed Patient: MADDIE RAMAN MR#: [id number] : 1995 Acct:[id number] Age/Sex: 29 / F ADM Date: 08/05/24 Loc: US Attending Dr: Zoraida Travis Ordering Physician: Zoraida Travis Date of Service: 08/05/24 Procedure(s): US OB anatomy Accession Number(s): [id number] cc: Zoraida Travis; Ally Craig NP [address] [address] Patient Name: MADDIE RAMAN MRN: [id number] date: 1995 Sex: F Assigned Patient Location: US Current Patient Location: US Accession/Order Number: [id number] Exam Date: 08/05/2024 08:01 Report Date: 08/05/2024 [...] Signed By: 08/05/24 0858 DD/ 0855 TD/TT: Viticulturist: [facility] Radiology, Radiologist, MD - 08/05/2024 [place] [address] Ultrasound Report Signed Patient: MADDIE RAMAN MR#: [id number] : 1995 Acct:[id number] Age/Sex: 29 / F ADM Date: 08/05/24 Loc: US Attending Dr: Zoraida Travis Ordering Physician: Zoraida Travis Date of Service: 08/05/24 Procedure(s): US OB anatomy Accession Number(s): [id number] cc: Zoraida Travis; Ally Craig NP [place] [address] Patient Name: MADDIE RAMAN MRN: [id number] date: 1995 Sex: F Assigned Patient Location: US Current Patient Location: US Accession/Order Number: [id number] Exam Date: 08/05/2024 08:01 Report Date: 08/05/2024 [...] Mathew M.D. Signed By: 08/05/2458 DD/ TD/TT: Viticulturist: [facility] US OB CERVICAL LENGTHon 07-22 [place] [address] Ultrasound Report Signed Patient: MADDIE RAMAN MR#: [id number] : 1995 Acct:[id number] Age/Sex: 29 / F ADM Date: 08/05/24 Loc: US Attending Dr: Zoraida Travis Ordering Physician: Zoraida Travis Date of Service: 08/05/24 Procedure(s): US OB cervical length Accession Number(s): [id number] cc: Zoraida Travis; Ally Craig NP [place] [phone] Patient Name: MADDIE RAMAN MRN: [id number]:[id number] date: 1995 Sex: F Assigned Patient Location: US Current Patient Location: US Accession/Order Number: [id number] Exam Date: 08/05/2024 08:01 Report Date: 08/05/2024 [...] M.D. Signed By: 08/05/24 0858 DD/ TD/TT: Viticulturist: [facility] Radiology, Radiologist, MD - 08/05/2024 The [place] [id number] Ultrasound Report Signed Patient: MADDIE RAMAN MR#: [id number] : 1995 Acct:[id number] Age/Sex: 29 / F ADM Date: 08/05/24 Loc: US Attending Dr: Zoraida Travis Ordering Physician: Zoraida Travis Date of Service: 08/05/24 Procedure(s): US OB cervical length Accession Number(s): [id number] cc: Zoraida Travis; Ally Craig NP The [address] [address] Patient Name: MADDIE RAMAN MRN: [facility]:[id number] date: 1995 Sex: F Assigned Patient Location: US Current Patient Location: US Accession/Order Number: [id number] Exam Date: 08/05/2024 08:01 Report Date: 08/05/2024 [...] M.D. Signed By: 08/05/2458 DD/ 4 TD/TT: Viticulturist: MARIA FERNANDA Watson HPV,AGE GDLNon AGE GDLN ACOG TESTING Note . [facility] Comment on above: TESTS RESULT FLAG UN ITS REF RANGE LAB Clinician Provided Cytology Information Source.............Cervix Other.............. No. of containers..01 ThinPrep Vial Age Frank Yip... FLAG LEGEND: L-Low Normal,H-High Normal,LL-Alert Low,HH-Alert High <-Panic Low,>-Panic High,A-Abnormal,AA-Critical Abnormal Performed at: 01 =[address] [facility] [address] Otilia Marquis MD, IGP, RFX APTIMA HPV ASCU Note . [facility] Comment on above: TESTS RESULT FLAG UN ITS REF RANGE LAB DIAGNOSIS: 02 NEGATIVE FOR INTRAEPITHELIAL LESION OR MALIGNANCY. Specimen adequacy: 02 Satisfactory for evaluation. Endocervical and/or squamous metaplastic cells (endocervical component) are present. Performed by: 02 Maritza Bliss, Supervisor Felling Bucking ([facility]) . 02 Note: Note 03 [...] <-Panic Low,>-Panic High,A-Abnormal,AA-Critical Abnormal Performed at: [address] [address] Kyra Flores PhD, [address] [address] Otilia Marquis MD, Performed at: [address] [id number] White Hat Hacker: Otilia Marquis MD, Phone: [phone] Performed at: [address] [id number] White Hat Hacker: Kyra Flores PhD, Phone: [phone] [facility] RECURRENT VAGINITIS (HTRX)on 08-02-2024 AT[address] V[address]INAE [address] [facility] ATOPOBIUM VAGINAE Detected Abnormal [facility] BVAB 2,3 (BACTERIAL VAGINOSIS ASSOCIATED BACTERIA 2, 3); MOBILUNCUS SPP 18.822 Abnormal [facility] BVAB 2,3 (BACTERIAL VAGINOSIS ASSOCIATED BACTERIA 2, 3); MOBILUNCUS SPP Detected Abnormal [facility] ROCÍO ALBICANS, PARAPSILOSIS, TROPICALIS 0 [facility] ROCÍO ALBICANS, PARAPSILOSIS, TROPICALIS Not detected [facility] ROCÍO GLABRATA 0 [facility] ROCÍO GLABRATA Not detected [facility] ROCÍO KRUSEI 0 [facility] ROCÍO KRUSEI Not detected [facility] CHLAMYDIA TRACHOMATIS 0 [facility] S [facility] CHLAMYDIA TRACHOMATIS Not detected N [facility] ERMB, C; MEFA 21.66 Abnormal [facility] ERMB, C; MEFA Detected Abnormal [facility] GARDNERELLA VAGINALIS 22.792 Abnormal [facility] GARDNERELLA VAGINALIS Detected Abnormal [facility] Interpretation and review of laboratory results Abnormal [facility] MEGASPHAERA (TYPES 1, 2) 17.674 Abnormal [facility] MEGASPHAERA (TYPES 1, 2) Detected Abnormal [facility] MYCOPLASMA GENITALIUM 0 [facility] MYCOPLASMA GENITALIUM Not detected N [facility] NEISSERIA GONORRHOEAE 0 [facility] NEISSERIA GONORRHOEAE Not detected N [facility] TRICHOMONAS VAGINALIS 0 [facility] TRICHOMONAS VAGINALIS Not detected N [facility] Urinalysis macro (dipstick) panel (U)on 07-31-2024 Bilirubin, UA Positive Negative - 4(70) +++ mg/dL [facility] Comment on above: small Blood, UA Negative Negative - 50 Miguel Angel/mcL [facility] Clarity, UA Cloudy [facility] Color, UA Dark Tiffany [facility] Glucose, UA Negative Negative - 2000(110) ++++ mg/dL [facility] Interpretation and review of laboratory results Abnormal [facility] Ketones, UA Negative Negative - 160(16) ++++ mg/dL [facility] Leukocytes, UA Negative Negative - 500+++ Eleonora/mcL [facility] Nitrite, UA Negative Negative - Positive [facility] pH, UA 6 5 - 9 [facility] Protein, UA Positive Negative - 2000(20) ++++ mg/dL [facility] Comment on above: 30 mg Spec Grav, UA 1.03 1 - 1.03 [facility] Urobilinogen, UA 1.0 0.2 - 12 mg/dL [facility] AFP, SERUM, OPEN SPINA BIFID Aon 07-07-2024 AFP MOM 0.99 . [facility] AFP VALUE 31.8 ng/mL . [facility] COMMENT: Comment . [facility] Comment on above: Yanni West , Ph.D., [facility] Director References: Available Upon Request. Multiples Of Median Cutoffs For AFP Elevations Alonso 2.5 Black 2.8 IDD 2.0 Twins 4.5 Abbreviation Definitions IDD - Insulin Dep Diabetes OSBR - Open Spina Bifida Risk For further inquiries contact [facility] at [phone]. This test was developed and its performance characteristics determined by [facility]. It has not been cleared or approved by the Food and Drug Administration. Performed at: [facility] [address], [place] [id number] White Hat Hacker: Sinai Arellano [facility], Phone: [phone] GEST. AGE ON COLLECTION DATE 17.9 . weeks [facility] GESTAT. AGE BASED ON Ultrasound . [facility] Comment on above: 15:0 on 06/15/2024 Recalculations are not recommended when gestational dating by LMP and ultrasound are within 10 days. INSULIN DEP DIABETES No . [facility] INTERPRETATION Comment . [facility] Comment on above: Interpretation: Scre en Negative [...] Customer Services to discuss available options. The [employer] recommends amniocentesis be offered to women age 35 and older. [age] [facility] MULTIPLE GESTATION No . [facility] OS[place]IS[place] [address] . [facility] RACE . [facility] RESULTS Report . [facility] TEST RESULTS: Negative . [facility] WEIGHT 237 . lbs [facility] N [id number] N ULTRASOUND [id number] 0 15 N 1 Y 237 N N N N N White/ [facility] Urinalysis macro (dipstick) panel (U)on 06-15-2024 Bilirubin, UA Negative Negative - 4(70) +++ mg/dL [facility] Blood, UA Negative Negative - 50 Miguel Angel/mcL [facility] Clarity, UA Clear [facility] Color, UA Yellow [facility] Glucose, UA Negative Negative - 2000(110) ++++ mg/dL [facility] Interpretation and review of laboratory results Abnormal [facility] Ketones, UA Negative Negative - 160(16) ++++ mg/dL [facility] Leukocytes, UA Few Negative - 500+++ Eleonora/mcL [facility] Comment on above: small Nitrite, UA Negative Negative - Positive [facility] pH, UA 7 5 - 9 [facility] Protein, UA Negative Negative - 1999(20) ++++ mg/dL [facility] Spec Grav, UA 1.025 1 - 1.03 [facility] Urobilinogen, UA 2.0 0.2 - 12 mg/dL [facility] BOX TESTon 06-06-2024 BOX TEST SENT OUT [facility] BOX1 [facility] BOX2 06/06/24 [facility] HCG ( test) Ql (U)o n 05-29-2024 Interpretation and review of laboratory results Abnormal [facility] Preg Test, Ur Positive Negative [facility] Urinalysis macro (dipstick) panel (U)on 05-29-2024 Bilirubin, UA Negative Negative - 4(70) +++ mg/dL [facility] Blood, UA Negative Negative - 50 Miguel Angel/mcL [facility] Clarity, UA Clear [facility] Color, UA Yellow [facility] Glucose, UA Negative Negative - 1999(110) ++++ mg/dL [facility] Interpretation and review of laboratory results Abnormal [facility] Ketones, UA Positive Negative - 160(16) ++++ mg/dL [facility] Comment on above: trace Leukocytes, UA Negative Negative - 500+++ Eleonora/mcL [facility] Nitrite, UA Negative Negative - Positive [facility] pH, UA 6.5 5 - 9 [facility] Protein, UA Negative Negative - 1999(20) ++++ mg/dL [facility] Spec Grav, UA 1.02 1 - 1.03 [facility] Urobilinogen, UA 1.0 0.2 - 12 mg/dL [facility] PREG QUANT HCGon 024 HCG QUANTITATIVE 31111 mIU/mL [facility] Comment on above: 5-50 0.2-1 WEEK 50-500 1-2 WEEKS 100-5,000 2-3 WEEKS 500-10,000 3-4 WEEKS 1,000-50,000 4-5 WEEKS 10,000-100,000 5-6 WEEKS 15,000-200,000 6-8 WEEKS 10,000-100,000 2-3 MONTHS [facility] PREG QUANT HCGon 05-10- 024 HCG QUANTITATIVE 65884 mIU/mL [facility] Comment on above: 5-50 0.2-1 WEEK 50-500 1-2 WEEKS 100-5,000 2-3 WEEKS 500-10,000 3-4 WEEKS 1,000-50,000 4-5 WEEKS 10,000-100,000 5-6 WEEKS 15,000-200,000 6-8 WEEKS 10,000-100,000 2-3 MONTHS [facility] PREG QUANT HCGon 18-2 024 HCG QUANTITATIVE 56646 mIU/mL [facility] Comment on above: 5-50 0.2-1 WEEK 50-500 1-2 WEEKS 100-5,000 2-3 WEEKS 500-10,000 3-4 WEEKS 1,000-50,000 4-5 WEEKS 10,000-100,000 5-6 WEEKS 15,000-200,000 6-8 WEEKS 10,000-100,000 2-3 MONTHS [facility] CBC AND AUTO DIFFon 03-15-20 24 ABSOLUTE BASOPHIL 0.1 X10E9/L Normal 0.0-0.2 [facility] Comment on above: Performed By: #### 2 4331-1, CBCA, CMP, FEPR, 2275-09, 2132-02, THYR #### [facility] ([id number]) [address] [place] [address] ABSOLUTE NEUTROPHIL 3.1 X10E9/L Normal 1.5-6.6 [facility] Comment on above: Performed By: #### 2 4331-1, CBCA, CMP, FEPR, 2275-09, 2132-02, THYR #### [facility] ([id number]) [address], [address] [place] [address] Basophils/100 WBC (Bld) 1.2 % Normal [facility] Comment on above: Performed By: #### 2 4331-1, CBCA, CMP, FEPR, 2275-09, 2132-02, THYR #### [facility] ([id number]) [address], [address] [place] [address] Eosinophils (Bld) [#/Vol] 0.4 10*3/uL Normal 0.0-0.4 [facility] Comment on above: Performed By: #### 2 4331-1, CBCA, CMP, FEPR, 2275-09, 2132-02, THYR #### [facility] ([id number]) [address], [address] [place] [address] Eosinophils/100 WBC (Bld) 6.7 % Normal [facility] Comment on above: Performed By: #### 2 4331-1, CBCA, CMP, FEPR, 2275-09, 2132-02, THYR #### [facility] ([id number]) [address], [facility] [address] [place] [address] Erythrocyte distribution width (RBC) [Ratio] 12.8 % Normal 11.5-15.0 [facility] Comment on above: Performed By: #### 2 4331-1, CBCA, CMP, FEPR, 2275-09, 2132-02, THYR #### [facility] ([id number]) [address] [facility] [address] [place] [address] Hematocrit (Bld) [Volume fraction] 36.5 % Normal 35-47 [facility] Comment on above: Performed By: #### 2 4331-1, CBCA, CMP, FEPR, 2275-09, 2132-02, THYR #### [facility] ([id number]) [address] [place] [address] Hemoglobin (Bld) [Mass/Vol] 12.9 g/dL Normal 11.7-15.5 [facility] Comment on above: Performed By: #### 2 4331-1, CBCA, CMP, FEPR, 2275-09, 2132-02, THYR #### [facility] ([id number]) [address], [facility] [address] [place] [address] Lymphocytes (Bld) [#/Vol] 1.3 10*3/uL Normal 1.0-3.5 [facility] Comment on above: Performed By: #### 2 4331-1, CBCA, CMP, FEPR, 2275-09, 2132-02, THYR #### [facility] ([id number]) [address], [facility] [address] [place] [address] Lymphocytes/100 WBC (Bld) 25.0 % Normal [facility] Comment on above: Performed By: #### 2 4331-1, CBCA, CMP, FEPR, 2275-09, 2132-02, THYR #### [facility] ([id number]) [address] [address] MCH (RBC) [Entitic mass] 31.2 pg Normal 27-34 [facility] Comment on above: Performed By: #### 2 4331-1, CBCA, CMP, FEPR, 2275-09, 2132-02, THYR #### [facility] ([id number]) [address] [address] [address] [place] [address] MCHC (RBC) [Mass/Vol] 35.4 g/dL Normal 32-36 [facility] Comment on above: Performed By: #### 2 4331-1, CBCA, CMP, FEPR, 2275-09, 2132-02, THYR #### [facility] ([id number]) [address] [address] MCV (RBC) [Entitic vol] 88 fL Normal 80-100 [facility] Comment on above: Performed By: #### 2 4331-1, CBCA, CMP, FEPR, 2275-09, 2132-02, THYR #### [facility] ([id number]) [address] [facility] [address] [address] [place] [address] Monocytes (Bld) [#/Vol] 0.4 10*3/uL Normal 0-0.9 [facility] Comment on above: Performed By: #### 2 4331-1, CBCA, CMP, FEPR, 2275-09, 2132-02, THYR #### [facility] ([id number]) [address], [address] [address] Monocytes/100 WBC (Bld) 8.4 % Normal [facility] Comment on above: Performed By: #### 2 4331-1, CBCA, CMP, FEPR, 2275-09, 2132-02, THYR #### [facility] ([id number]) [address] [address] Neutrophils/100 WBC (Bld) 58.7 % Normal [facility] Comment on above: Performed By: #### 2 4331-1, CBCA, CMP, FEPR, 2275-09, 2132-02, THYR #### [facility] ([id number]) [address] [address] Platelet mean volume (Bld) [Entitic vol] 8.5 fL Normal 7-12 [facility] Comment on above: Performed By: #### 2 4331-1, CBCA, CMP, FEPR, 2275-09, 2132-02, THYR #### [facility] ([id number]) [address] [address] Platelets (Bld) [#/Vol] 234 10*3/uL Normal 150-450 [facility] Comment on above: Performed By: #### 2 4331-1, CBCA, CMP, FEPR, 2275-09, 2132-02, THYR #### [facility] ([id number]) [address] [address] RBC COUNT 4.13 X10E12/L Normal 3.80-5.20 [facility] Comment on above: Performed By: #### 2 4331-1, CBCA, CMP, FEPR, 2275-09, 2132-02, THYR #### [facility] ([id number]) [address], [address] [place] [address] WBC (Bld) [#/Vol] 5.3 10*3/uL Normal 4.0-11.0 [facility] Comment on above: Performed By: #### 2 4331-1, CBCA, CMP, FEPR, 2275-09, 2132-02, THYR #### [facility] ([id number]) [address] [place] [address] COMPREHENSIVE METABOLIC PANE Malachi 03-15-2024 Albumin [Mass/Vol] 4.4 g/dL Normal 3.2-5.3 [facility] Comment on above: Performed By: #### 2 4331-1, CBCA, CMP, FEPR, 2275-09, 2132-02, THYR #### [facility] ([id number]) [address], [address] [place] [address] ALP [Catalytic activity/Vol] 52 U/L Normal 39-130 [facility] Comment on above: Performed By: #### 2 4331-1, CBCA, CMP, FEPR, 2275-09, 2132-02, THYR #### [facility] ([id number]) [address], [address] [place] [address] ALT [Catalytic activity/Vol] 16 U/L Normal 0-31 [facility] Comment on above: Performed By: #### 2 4331-1, CBCA, CMP, FEPR, 2275-09, 2132-02, THYR #### [facility] ([id number]) [address] [place] [address] Anion gap [Moles/Vol] 9 mmol/L Normal 5-15 [facility] Comment on above: Performed By: #### 2 4331-1, CBCA, CMP, FEPR, 2275-09, 2132-02, THYR #### [facility] ([id number]) [address] [place] [address] AST [Catalytic activity/Vol] 19 U/L Normal 0-41 [facility] Comment on above: Performed By: #### 2 4331-1, CBCA, CMP, FEPR, 2275-09, 2132-02, THYR #### [facility] ([id number]) [address] [place] [address] Bilirubin [Mass/Vol] 0.5 mg/dL Normal 0.3-1.2 [facility] Comment on above: Performed By: #### 2 4331-1, CBCA, CMP, FEPR, 2275-09, 2132-02, THYR #### [facility] ([id number]) [address] [place] [address] Calcium [Mass/Vol] 9.3 mg/dL Normal 8.5-10.5 [facility] Comment on above: Performed By: #### 2 4331-1, CBCA, CMP, FEPR, 2275-09, 2132-02, THYR #### [facility] ([id number]) [address] [place] [address] Chloride [Moles/Vol] 104 mmol/L Normal 98-109 [facility] Comment on above: Performed By: #### 2 4331-1, CBCA, CMP, FEPR, 2275-09, 2132-02, THYR #### [facility] ([id number]) [address] [place] [address] CO2 [Moles/Vol] 27 mmol/L Normal 22-32 [facility] Comment on above: Performed By: #### 2 4331-1, CBCA, CMP, FEPR, 2275-09, 2132-02, THYR #### [facility] ([id number]) [address] [place] [address] Creatinine [Mass/Vol] 0.60 mg/dL Normal 0.40-1.00 [facility] Comment on above: Result Comment: METH OD TRACEABLE TO IDMS STANDARD Performed By: #### 2 4331-1, CBCA, CMP, FEPR, 2275-09, 2132-02, THYR #### [facility] ([id number]) [address] [place] [address] eGFR (CKD-EPI) NON-RACE DEPENDENT >90 Normal >59 [facility] Comment on above: Result Comment: Reported eGFR is based on the CKD-EPI 2020 equation that does not use a race coefficient. Performed By: #### 2 4331-1, CBCA, CMP, FEPR, 2275-09, 2132-02, THYR #### [facility] ([id number]) [address] [place] [address] Glucose [Mass/Vol] 75 mg/dL Normal 65-99 [facility] Comment on above: Performed By: #### 2 4331-1, CBCA, CMP, FEPR, 2275-09, 2132-02, THYR #### [facility] ([id number]) [address] [place] [address] Potassium [Moles/Vol] 4.2 mmol/L Normal 3.5-5.0 [facility] Comment on above: Performed By: #### 2 4331-1, CBCA, CMP, FEPR, 2275-09, 2132-02, THYR #### [facility] ([id number]) [address] [place] [address] Protein [Mass/Vol] 7.5 g/dL Normal 6.0-8.0 [facility] Comment on above: Performed By: #### 2 4331-1, CBCA, CMP, FEPR, 2275-4, 2132-02, THYR #### [facility] ([id number]) [address] [place] [address] Sodium [Moles/Vol] 140 mmol/L Normal 134-146 [facility] Comment on above: Performed By: #### 2 4331-1, CBCA, CMP, FEPR, 2275-4, 2132-02, THYR #### [facility] ([id number]) [address] [place] [address] Urea nitrogen [Mass/Vol] 10 mg/dL Normal 5-23 [facility] Comment on above: Performed By: #### 2 4331-1, CBCA, CMP, FEPR, 2275-09, 2132-02, THYR #### [facility] ([id number]) [address] [place] [address] FERRITINon 03-15-2024 Ferritin [Mass/Vol] 55 ng/mL Normal 11-307 [facility] Comment on above: Performed By: #### 2 4331-1, CBCA, CMP, FEPR, 2275-09, 2132-02, THYR #### [facility] ([id number]) [address] [place] [address] IRON PROFILEon 03-15-2024 Iron [Mass/Vol] 126 ug/dL Normal 50-170 [facility] Comment on above: Performed By: #### 2 4331-1, CBCA, CMP, FEPR, 2275-4, 2132-02, THYR #### [facility] ([id number]) [address] [place] [address] IRON BINDING 351 ug/dL Normal 250-425 [facility] Comment on above: Performed By: #### 2 4331-1, CBCA, CMP, FEPR, 6-4, 2132-02, THYR #### [facility] ([id number]) [address], [address] [place] [address] IRON SATURATION 36 % SATURATION Normal 15-50 [facility] Comment on above: Performed By: #### 2 4331-1, CBCA, CMP, FEPR, 6-, 2132-02, THYR #### [facility] ([id number]) [address] [place] [address] Lipid 1996 panelon 03-15- 4 Cholesterol [Mass/Vol] 164 mg/dL Normal 150-200 [facility] Comment on above: Performed By: #### 2 4331-1, CBCA, CMP, FEPR, 2275-, 2132-02, THYR #### [facility] ([id number]) [address] [place] [address] Cholesterol in HDL [Mass/Vol] 57 mg/dL Normal >39 [facility] Comment on above: Result Comment: HDL <40 mg/dL - High Risk HDL > or = 40mg/dL- Desirable HDL >60 mg/dL - Negative Risk Performed By: #### 2 4331-1, CBCA, CMP, FEPR, 6-, 2132-02, THYR #### [facility] ([id number]) [address] [place] [address] Cholesterol in LDL [Mass/Vol] 84 mg/dL Normal <130 [facility] Comment on above: Result Comment: LDL <100 mg/dL - Desirable LDL >160 mg/dL - High Risk Performed By: #### 2 4331-1, CBCA, CMP, FEPR, 2275-09, 2132-02, THYR #### [facility] ([id number]) [address] [place] [address] Cholesterol in VLDL [Mass/Vol] 23 mg/dL Normal 0-30 [facility] Comment on above: Performed By: #### 2 4331-1, CBCA, CMP, FEPR, 2275-09, 2132-02, THYR #### [facility] ([id number]) [address], [address] [place] [address] CHOLESTEROL:HDL 2.9 Normal 1.0-5.0 [facility] Comment on above: Performed By: #### 2 4331-1, CBCA, CMP, FEPR, 2275-09, 2132-02, THYR #### [facility] ([id number]) [address] [place] [address] Triglyceride [Mass/Vol] 115 mg/dL Normal 27-150 [facility] Comment on above: Performed By: #### 2 4331-1, CBCA, CMP, FEPR, 2275-09, 2132-02, THYR #### [facility] ([id number]) [address] [place] [address] THYROID PROFILEon 03-15-2024 Free T4 [Mass/Vol] 0.74 ng/dL Normal 0.61-1.60 [facility] Comment on above: Performed By: #### 2 4331-1, CBCA, CMP, FEPR, 2275-09, 2132-02, THYR #### [facility] ([id number]) [address], [address] [place] [address] TSH 2.68 uIU/mL Normal 0.49-4.67 [facility] Comment on above: Performed By: #### 2 4331-1, CBCA, CMP, FEPR, 2275-09, 2132-02, THYR #### [facility] ([id number]) [address] [place] [address] VITAMIN B12on 03-15-2024 Cobalamin (Vitamin B12) [Mass/Vol] 537 pg/mL Normal 180-914 [facility] Comment on above: Performed By: #### 2 4331-1, CBCA, CMP, FEPR, 2275-09, 2132-02, THYR #### [facility] ([id number]) [address] [place] [address] POCT urinalysis dipstick onl yon 01-20-2024 Appearance (U) Cloudy [facility] Poct Urine Bilirubin Negative [facility] External Poct Urine Blood Trace [facility] External Poct Urine Character Malodorous [facility] External Poct Urine Color Dark Yellow [facility] External Poct Urine Glucose Negative [facility] Poct Urine Ketones Trace [facility] External Poct Urine Leukocyte Esterase Large [facility] External Poct Urine Nitrite Negative [facility] External Poct Urine Ph 5.0 Pr [facility] External Poct Urine Protein 3+ [facility] External Poct Urine Specific [place] 1.000 [facility] External Poct Urine Urobilinogen 0.2 [facility] URINE CULTUREon 01-20-2024 Bacteria identified Cx Nom [...] ZOLE R >=16/304 F Resistant [facility] Comment on above: Performed By: #### 6 30-4 #### [facility] ([id number]) [address] [place] [address] Basic Metabolic Vasquez w/Rfx A1 Con 12-08-2023 GFR/1.73 sq M.predicted MDRD (S/P/Bld) [Vol rate/Area] mL/min/{1.73_m2} Normal [facility] Comment on above: Performed By: #### E BS LIPID, EMP BMP #### [facility] [address] [id number] [place] Calcium [Mass/volume] in Ser um or PlasmaOrdered By: Janna Escalera on 12-08-2023 Calcium [Mass/Vol] 9.5 mg/dL Normal 8.6-10.[address] [facility] Comment on above: Performed By: #### E BS LIPID, EMP BMP #### [facility] [address] [id number] [place] Carbon dioxide, total [Moles /volume] in Serum or PlasmaOrdered By: Janna Escalera on 12-08-2023 CO2 [Moles/Vol] 29.1 mmol/L Normal 21.0-31.0 [facility] Comment on above: Performed By: #### E BS LIPID, EMP BMP #### [facility] [address] [place] [address] [place] Chloride [Moles/volume] in S radha or PlasmaOrdered By: Janna Escalera on 12-08-2023 Chloride [Moles/Vol] 105 mmol/L Normal 98-107 [facility] Comment on above: Performed By: #### E BS LIPID, EMP BMP #### [facility] [address] [id number] [place] Cholesterol [Mass/volume] in Serum or PlasmaOrdered By: Janna Escalera on 12-08-2023 Cholesterol [Mass/Vol] 163 mg/dL Normal 140-200 [facility] Comment on above: Chol less than 200 m g/dl low riskChol 201-239 mg/dl borderline riskChol 240 mg/dl and greater high risk Result Comment: Chol less than 200 mg/dl low risk Chol 201-239 mg/dl borderline risk Chol 240 mg/dl and greater high risk Performed By: #### E BS LIPID, EMP BMP #### [facility] [address] [id number] [place] Cholesterol in LDL Calc [Mas s/Vol]Ordered By: Janna Escalera on 12-08-2023 Cholesterol in LDL [Mass/Vol] 84 mg/dL 0-100 [facility] Comment on above: LDL ATP III CLASSIFI CATIONLDL less than 100 mg/dL OptimalLDL 100-129 mg/dL Near or above optimalLDL 130-159 mg/dL Borderline highLDL 160-189 mg/dL HighLDL greater than 189 mg/dL Very high Cholesterol in VLDL Calc [Ma ss/Vol]Ordered By: Janna Escalera on 12-08-2023 Cholesterol in VLDL [Mass/Vol] 17 mg/dL [facility] Creatinine [Mass/volume] in Serum or PlasmaOrdered By: Janna Escalera on 12-08-2023 Creatinine [Mass/Vol] 0.69 mg/dL Normal 0.60-1.20 [facility] Comment on above: Performed By: #### E BS LIPID, EMP BMP #### [facility] [address] [place] [address] [place] Glucose [Mass/volume] in Ser um or PlasmaOrdered By: Janna Escalera on 12-08-2023 Glucose [Mass/Vol] 83 mg/dL Normal 70-[address] [facility] Comment on above: Performed By: #### E BS LIPID, EMP BMP #### [facility] [address] [id number] [place] Lipid Profileon 12-08-2023 LDL Cholesterol,Calculated 84 mg/dL Normal 0-100 [facility] Comment on above: Result Comment: LDL ATP III CLASSIFICATION LDL less than 100 mg/dL Optimal LDL 100-129 mg/dL Near or above optimal LDL 130-159 mg/dL Borderline high LDL 160-189 mg/dL High LDL greater than 189 mg/dL Very high Performed By: #### E BS LIPID, EMP BMP #### [facility] [address] Triglyceride w/Reflex 87 mg/dL Normal 0-149 [facility] Comment on above: Result Comment: TRIG ATP III CLASSIFICATION TRIG less than 150 mg/dL Normal TRIG 150-199 mg/dL Borderline high TRIG 200-500 mg/dL High TRIG greater than 500 mg/dL Very high Standard traceable to the Center for Disease Conrtrol and Prevention (CDC) test method. Performed By: #### E BS LIPID, EMP BMP #### [facility] [address] VLDL CHOLESTEROL 17 mg/dL Normal [facility] Comment on above: Performed By: #### E BS LIPID, EMP BMP #### [facility] [address] No Panel InformationOrdered By: Janna Escalera on 12-08-2023 Estimated GFR (CKD-EPI) > 60.0 mL/Min [facility] Creatinine Clearance (Chem N/A [facility] Potassium [Moles/volume] in Serum or PlasmaOrdered By: Janna Escalera on 12-08-2023 Potassium [Moles/Vol] 3.6 mmol/L Normal 3.5-5.1 [facility] Comment on above: Performed By: #### E BS LIPID, EMP BMP #### [facility] [address] [place] [address] Serum or plasma anion gap de terminationOrdered By: Janna Escalera on 12-08-2023 Anion gap [Moles/Vol] 10.5 mmol/L Normal 6.0-15.0 [facility] Comment on above: Performed By: #### E BS LIPID, EMP BMP #### [facility] [address] Serum or plasma high density lipoprotein (HDL) cholesterol measurementOrdered By: Janna Escalera on 12-08-2023 Cholesterol in HDL [Mass/Vol] 62 mg/dL Normal 23-92 [facility] Comment on above: HDL CHOL ATP-III CLA SSIFICATION Cardiovascular RiskHDL > or equal to 60 mg/dL LOWHDL < 40 mg/dL HIGH Result Comment: HDL CHOL ATP-III CLASSIFICATION Cardiovascular Risk HDL > or equal to 60 mg/dL LOW HDL < 40 mg/dL HIGH Performed By: #### E BS LIPID, EMP BMP #### [facility] [address] Serum or plasma total choles terol/high density lipoprotein (HDL) cholesterol mass ratOrdered By: Janna Escalera on 12-08-2023 Cholesterol.total/Chol esterol in HDL [Mass ratio] 2.6 {ratio} Normal <5.0 [facility] Comment on above: Result Comment: PERF ORMED BY: [place] [address] PATHOLOGIST HUMAN RESOURCE ADVISER CHERYL GEORGE M.D. Performed By: #### E BS LIPID, EMP BMP #### [address] Sodium [Moles/volume] in Ser um or PlasmaOrdered By: Janna Escalera on 12-08-2023 Sodium [Moles/Vol] 141 mmol/L Normal 136-[address] [facility] Comment on above: Performed By: #### E BS LIPID, EMP BMP #### [facility] [address] Triglyceride [Mass/volume] i n Serum or PlasmaOrdered By: Janna Escalera on 12-08-2023 Triglyceride [Mass/Vol] 87 mg/dL 0-149 [facility] Comment on above: TRIG ATP III CLASSIF ICATIONTRIG less than 150 mg/dL NormalTRIG 150-199 mg/dL Borderline highTRIG 200-500 mg/dL High TRIG greater than 500 mg/dL Very highStandard traceable to the Center for Disease Conrtrol and Prevention (CDC) test method. Urea nitrogen [Mass/volume] in Serum or PlasmaOrdered By: Janna Escalera on 12-08-2023 Urea nitrogen [Mass/Vol] 14 mg/dL Normal 7-25 [facility] Comment on above: Performed By: #### E BS LIPID, EMP BMP #### [facility] [address] MRI HIP RIGHT W CONTRASTon 1 [...] Tucker Ashby MD 06/08/22 Final result Normal [facility] IR INJ ARTHROGRAM HIP RIGHTo n [...] 120.55 uGy cm 2 Views: 3 PROCEDURE: COGNOS BI ADMINISTRATOR: Elijah Houston This procedure was performed by [...] Eric Rae MD 06/05/22 Final result Normal [facility] Successful fluoroscopic-guided right hip arthrogram. Patient was transferred to MRI for further imaging. [facility] RIS CONSOLIDATED EXAMINATION: FLUOROSCOPIC GUIDED RIGHT HIP ARTHROGRAM, 06/05/2022 2:50 pm COMPARISON: None. HISTORY: ORDERING SYSTEM PROVIDED HISTORY: Tear of right acetabular labrum, initial encounter TECHNOLOGIST PROVIDED HISTORY: r/o R hip labral tear. MRI ordered Is the patient ?->No FLUOROSCOPY DOSE AND TYPE OR TIME AND EXPOSURES: Fluoro time 0.3 minutes DAP 120.55 uGy cm 2 Views: 3 PROCEDURE: COGNOS BI ADMINISTRATOR: Elijah Houston This procedure was performed by [...] and left the Department in stable condition. [facility] RIS CONSOL[facility] Eric Dukes MD - 06/05/2022 [...] 120.55 uGy cm 2 Views: 3 PROCEDURE: COGNOS BI ADMINISTRATOR: Elijah Houston This procedure was performed by [...] was transferred to MRI for further imaging. [employer] Phone: Radiology Study observation (narrative) [employer] Phone: IR INJ ARTHROGRAM HIP RIGHTO rdered By: Eric Dukes on 06-05-2022 [employer] Work Phone: 2018 Novel Coronavirus (CoVI D-19), SAMIR LCon 02-20-2021 SARS-CoV-2 (COVID-19) RNA SAIMR+probe Ql (Unsp spec) Not detected Invalid Interpretation Code Not Detected [facility] Comment on above: Result Comment: This nucleic acid amplification test was developed and its performance characteristics determined by [employer] Nucleic acid amplification tests include RT- PCR [...] detected) result in this assay. Performed At: [address] [id number] Maritza Uribe PhD Ph:[phone] Performed By: #### 6 [id number] #### [facility] (DEFAULT) [address] [place] [address] Consent Formson 02-19-2021 Consent Forms [id number] #1.00OTGTIFF [facility] Consent Forms [id number] #1.00OTGTIFF [facility] Lab - Toxicology Resultson 0 02-19-2021 Lab - Toxicology Results [id number] #1.00OTGTIFF [facility] Outside Recordson 02-19-2021 Outside Records [id number] #1.00OTGTIFF [facility] Triage Industrialon 02-20-20 21 Drug Screen Complete Collected [facility] Comment on above: Performed By: #### 1 [id number] #### [facility] (DEFAULT) [address] [place] [address] ED Clinical Summaryon 2020 ED Clinical Summary [facility] ? Urgent Care [address] [place] [id number] Clinical Summary PERSON INFORMATION Name: MADDIE RAMAN Age: 25 Years Sex: FEMALE : 1995 MRN: Acct#: Visit Reason: Medical screening exam; [facility] Arrival: 02/18/2021 13:01:04 Discharge: 02/18/2021 14:21:00 LOS: 000 01:20 Check In: 02/18/2021 13:01:04 Checkout: 02/18/2021 14:21:00 Address: [address] [place] [id number] PCP: Provider, Unlisted PROVIDER INFORMATION Provider Role [...] iver verbalizes understanding of instructions given Comment: [facility] ED Patient Summaryon 021 ED Patient Summary [facility] ? Urgent Care [address] [place] [address] [id number] PATIENT DISCHARGE INSTRUCTIONS Patient Information Name: MADDIE RAMAN Age: 25 Years Date of : 1995 [facility]: [id number] Reason For Visit: Medical screening exam; [facility] Arrival Time: 02/18/2021 13:01:04 Primary Care Physician: Provider, Unlisted Attending Physician: Adam Moncada PA-C Comment: Patient Education Medication Information: The exam and treatment you received today in the [facility] Emergency Department were for an urgent problem and are not intended as complete care. It is important for you to follow up with a doctor, nurse practitioner, or physician?s library technical assistant for ongoing care. If your symptoms [...] can reach you if necessary. [facility] Emergency Department has provided you with a complete list of medications post discharge. 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 education courses sales representative/provider of your visit and for further instruction on these medications. Any specific questions regarding your chronic medications and dosages should be discussed with your primary care physician(s) and/or pharmacist. Visit Information Visit Diagnosis: Diagnoses This Visit Medical screening exam ([id number]) If you received any narcotics, sedation, or [...] Reason for Visit: Patient arrives to for [place] physical Allergies: Substance Reaction Symptoms Type Comments [...] for Disease Control and Prevention February 2014 [facility] Urgent Care Note- Provideron 02-18-2021 Urgent Care Note- Provider Patient: MADDIE RAMAN Age: 25 years Sex: FEMALE : 1995 Associated Diagnoses: None Author: Adam Moncada PA-C Basic Information Additional information: Chief Complaint from Nursing Triage Note : Chief Complaint 02/18/2021 13:34 EDT Chief Complaint Patient arrives to for [place] physical . History of Present Illness Patient presents for a pre-employment physical. She is cleared for work. Exam is normal. See scanned document. PSYCHIATRIC: Mood and affect appropriate. Health Status Allergies: Allergic Reactions (Selected) No known allergies. Past Medical/ Family/ Social History Medical history: No active or resolved past medical history items have been selected or recorded.. Surgical history: Cholecystectomy ([id number]). Hip replacement ([id number]). delivery ([id number]). Cardiac ablation system ([id number]).. Family history: No family history items have [...] Therapy Room air . Normal [facility] Urgent Care [place] 021 Urgent Care Record [facility] ? Urgent Care 71 [place] [address] PATIENT DISCHARGE INSTRUCTIONS Patient Information Name: MADDIE RAMAN Age: 25 Years Date of : 1995 Reason For Visit[facility]: 02/18/2021 13:01:04 Primary Care Physician: Provider, Unlisted Attending Physician: Adam Moncada PA-C Comment: Visit Diagnosis: Diagnoses This Visit Medical screening exam ([id number]) If you received any narcotics, sedation, or [...] and treatment you received today in the [facility] were for an urgent problem and are not intended as complete care. It is important for you to follow up with a doctor, nurse practitioner, or physician?s library technical assistant for ongoing care. If your symptoms [...] can reach you if necessary. [facility] has provided you with a complete list of medications post discharge. 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 education courses sales representative/provider of your visit and for further instruction [...] and Prevention February [address] [facility] PROGESTERONEon 05-25-2020 Progesterone 3.3 ng/mL Normal [facility] Comment on above: Result Comment: Foll icular phase 0.1 - 0.9 Luteal phase 1.8 - 23.9 Ovulation phase 0.1 - 12.0 First trimester 11.0 - 44.3 Second trimester 25.4 - 83.3 Third trimester 58.7 - 214.0 Postmenopausal 0.0 - 0.1 Performed By: #### P ROSA #### [facility] [address] [place], [place] [address] Sebastian Ordoñez Hgb/Hcton 02-22-2019 Hematocrit (Bld) [Volume fraction] 28.7 % Low 36-46 [facility] Comment on above: Performed By: #### H H #### [facility] [address] [facility] [place], [place] [id number] White Hat Hacker: Remy Haq DO Hemoglobin (Bld) [Mass/Vol] 9.4 g/dL Low 12.0-16.0 [facility] Comment on above: Performed By: #### H H #### [facility] [address] [facility] [place] [address] White Hat Hacker: Remy Haq DO Basic Metabolic Profon 02-20 (cont.) Normal [facility] Comment on above: Result Comment: Aver age GFR for 20-29 years old: 116 mL/min/1.73sq m Chronic Kidney Disease: <60 mL/min/1.73sq m Kidney failure: <15 mL/min/1.73sq m eGFR calculated using average adult body mass. Additional eGFR calculator available at: http://www.Viraliti.com/multiple_crcl_2012.htm Performed By: #### C JAMA, BMP #### [facility] [address] [facility] [facility] [place], [place] [id number] White Hat Hacker: Remy Haq DO Anion gap [Moles/Vol] 13 mmol/L Normal 9-17 [facility] Comment on above: Performed By: #### C JAMA, BMP #### [facility] [address] [place] [address] White Hat Hacker: Remy Haq DO Calcium [Mass/Vol] 8.8 mg/dL Normal 8.6-10.4 [facility] Comment on above: Performed By: #### C BC, BMP #### [facility] [address] [place] [address] White Hat Hacker: Remy Haq DO Chloride [Moles/Vol] 103 mmol/L Normal 98-107 [facility] Comment on above: Performed By: #### C BC, BMP #### [facility] [place] [address] White Hat Hacker: Remy Haq DO CO2 [Moles/Vol] 25 mmol/L Normal 20-31 [facility] Comment on above: Performed By: #### C BC, BMP #### [facility] [place] [address] White Hat Hacker: Remy Haq DO Creatinine [Mass/Vol] 0.72 mg/dL Normal 0.50-0.90 [facility] Comment on above: Performed By: #### C BC, BMP #### [facility] [place] [address] White Hat Hacker: Remy Haq DO GFR, Amer >60 Normal >60 [facility] Comment on above: Performed By: #### C BC, BMP #### [facility] [address] [place] [address] White Hat Hacker: Remy Haq DO GFR,non Amer >60 Normal >60 [facility] Comment on above: Performed By: #### C BC, BMP #### [facility] [address] [place] [address] White Hat Hacker: Remy Haq DO Glucose [Mass/Vol] 96 mg/dL Normal 70-99 [facility] Comment on above: Performed By: #### Joy YUN, BMP #### [facility] [address] [place] [address] White Hat Hacker: Remy Haq DO Potassium [Moles/Vol] 4.0 mmol/L Normal 3.7-5.3 [facility] Comment on above: Performed By: #### Joy YUN, BMP #### [facility] [address] [place] [address] White Hat Hacker: Remy Haq DO Sodium [Moles/Vol] 141 mmol/L Normal 135-144 [facility] Comment on above: Performed By: #### Joy YUN, BMP #### [facility] [address] [place] [address] White Hat Hacker: Remy Haq DO Urea nitrogen [Mass/Vol] 10 mg/dL Normal 6-20 [facility] Comment on above: Performed By: #### Joy YUN, BMP #### [facility] [place] [address] White Hat Hacker: Remy Haq DO BUN/CRE Ratio NOT REPORTED Normal 9-20 [facility] Comment on above: Performed By: #### Joy YUN, BMP #### [facility] [place] [address] White Hat Hacker: Remy Haq DO Staging: NOT REPORTED Normal [facility] Comment on above: Performed By: #### Joy YUN, BMP #### [facility] [address] [place] [address] White Hat Hacker: Remy Haq DO CBCon 02-20-2019 Erythrocyte distribution width (RBC) [Ratio] 16.5 % High 11.5-14.9 [facility] Comment on above: Performed By: #### Joy YUN, BMP #### [facility] [place] [address] White Hat Hacker: Remy Haq DO Hematocrit (Bld) [Volume fraction] 25.9 % Low 36-46 [facility] Comment on above: Performed By: #### C JAMA, BMP #### [facility] [address] [place] [address] White Hat Hacker: Remy Haq DO Hemoglobin (Bld) [Mass/Vol] 8.6 g/dL Low 12.0-16.0 [facility] Comment on above: Performed By: #### C JAMA, BMP #### [facility] [address] [place] [address] White Hat Hacker: Remy Haq DO MCH (RBC) [Entitic mass] 28.2 pg Normal 26-34 [facility] Comment on above: Performed By: #### Joy YUN, BMP #### [facility] [address] [place] [address] White Hat Hacker: Remy Haq DO MCHC (RBC) [Mass/Vol] 33.0 g/dL Normal 31-37 [facility] Comment on above: Performed By: #### Joy YUN, BMP #### [facility] [address] [place] [address] White Hat Hacker: Remy Haq DO MCV (RBC) [Entitic vol] 85.4 fL Normal 80-100 [facility] Comment on above: Performed By: #### C JAMA, BMP #### [facility] [address] [place] [address] White Hat Hacker: Remy Haq DO Platelet mean volume (Bld) [Entitic vol] 6.7 fL Normal 6.0-12.0 [facility] Comment on above: Performed By: #### C JAMA, BMP #### [facility] [address] [facility] [place] [address] White Hat Hacker: Remy Haq DO Platelets (Bld) [#/Vol] 419 10*3/uL Normal 150-450 [facility] Comment on above: Performed By: #### Joy YUN, BMP #### [facility] [place] [address] White Hat Hacker: Remy Haq DO RBC (Bld) [#/Vol] 3.03 10*6/uL Low 4.0-5.2 [facility] Comment on above: Performed By: #### Joy YUN, BMP #### [facility] [place] [address] White Hat Hacker: Remy Haq DO WBC (Bld) [#/Vol] 6.3 10*3/uL Normal 3.5-11.0 [facility] Comment on above: Performed By: #### Joy YUN, BMP #### [facility] [address] [place] [address] White Hat Hacker: Remy Haq DO NRBC Automated NOT REPORTED Normal [facility] Comment on above: Performed By: #### Joy YUN, BMP #### [facility] [address] [place] [address] White Hat Hacker: Remy Haq DO Hgb/Hcton 02-20-2019 Hematocrit (Bld) [Volume fraction] 29.6 % Low 36-46 [facility] Comment on above: Performed By: #### H H #### [facility] [address] [place] [address] White Hat Hacker: Remy Haq DO Hemoglobin (Bld) [Mass/Vol] 9.7 g/dL Low 12.0-16.0 [facility] Comment on above: Performed By: #### H H #### [facility] [address] [place] [address] White Hat Hacker: Remy Haq DO CBCon 02-19-2019 Erythrocyte distribution width (RBC) [Ratio] 16.6 % High 11.5-14.9 [facility] Comment on above: Performed By: #### C BC #### [facility] [place] [address] White Hat Hacker: Remy Haq DO Hematocrit (Bld) [Volume fraction] 23.2 % Low 36-46 [facility] Comment on above: Performed By: #### C BC #### [facility] [place] [address] White Hat Hacker: Remy Haq DO Hemoglobin (Bld) [Mass/Vol] 7.6 g/dL Low 12.0-16.0 [facility] Comment on above: Performed By: #### C BC #### [facility] [place] [address] White Hat Hacker: Remy Haq DO MCH (RBC) [Entitic mass] 27.8 pg Normal 26-34 [facility] Comment on above: Performed By: #### C BC #### [facility] [place] [address] White Hat Hacker: eRmy Haq DO MCHC (RBC) [Mass/Vol] 32.7 g/dL Normal 31-37 [facility] Comment on above: Performed By: #### C BC #### [facility] [place] [address] White Hat Hacker: Remy Haq DO MCV (RBC) [Entitic vol] 85.0 fL Normal 80-100 [facility] Comment on above: Performed By: #### C BC #### [facility] [address] [place] [address] White Hat Hacker: Remy Haq DO Platelet mean volume (Bld) [Entitic vol] 6.5 fL Normal 6.0-12.0 [facility] Comment on above: Performed By: #### C BC #### [facility] [address] [place] [address] White Hat Hacker: Remy Haq DO Platelets (Bld) [#/Vol] 444 10*3/uL Normal 150-450 [facility] Comment on above: Performed By: #### C BC #### [facility] [address] [place] [address] White Hat Hacker: Remy Haq DO RBC (Bld) [#/Vol] 2.73 10*6/uL Low 4.0-5.2 [facility] Comment on above: Performed By: #### C BC #### [facility] [address] [place] [address] White Hat Hacker: Remy Haq DO WBC (Bld) [#/Vol] 5.1 10*3/uL Normal 3.5-11.0 [facility] Comment on above: Performed By: #### C BC #### [facility] [place] [address] White Hat Hacker: Remy Haq DO NRBC Automated NOT REPORTED Normal [facility] Comment on above: Performed By: #### C BC #### [facility] [address] [place] [address] White Hat Hacker: Remy Haq DO Type + Crossmatchon 02-20-20 19 Type + Crossmatch Sample Expiration 02/22/2019 Arm Band Number [id number] ABO/Rh(D) A POSITIVE Antibody Screen NEGATIVE Blood Bank Comment Pt's ABRh confirmed as A POS:402 Results Verified BLANCHE, Polyspecific NEGATIVE BLANCHE, Anti-IgG Loreta Serum NEGATIVE Antibody Ident Anti-[place](A) Present Unit Number [id number] Blood Component Type Leukocyte Reduced Red Cell Unit Division 00 Status of Unit TRANSFUSED Transfusion Status OK TO TRANSFUSE Crossmatch Result COMPATIBLE Normal [facility] Comment on above: Performed By: #### T YX #### [facility] [place] [address] White Hat Hacker: Remy Haq DO Basic Metab w/rfx MGon 02-16 (cont.) Normal [facility] Comment on above: Result Comment: Aver age GFR for 20-29 years old: 116 mL/min/1.73sq m Chronic Kidney Disease: <60 mL/min/1.73sq m Kidney failure: <15 mL/min/1.73sq m eGFR calculated using average adult body mass. Additional eGFR calculator available at: http://www.Resumesimo.com/multiple_crcl_2012.htm Performed By: #### B MPX, CBC #### [facility] [place] [address] White Hat Hacker: Remy Haq DO Anion gap [Moles/Vol] 11 mmol/L Normal 9-17 [facility] Comment on above: Performed By: #### B MPX, CBC #### [facility] [address] [place] [address] White Hat Hacker: eRmy Haq DO Calcium [Mass/Vol] 8.6 mg/dL Normal 8.6-10.4 [facility] Comment on above: Performed By: #### B MPX, CBC #### [facility] [place] [address] White Hat Hacker: Remy Haq DO Chloride [Moles/Vol] 100 mmol/L Normal 98-107 [facility] Comment on above: Performed By: #### B MPX, CBC #### [facility] [address] [place] [address] White Hat Hacker: Remy Haq DO CO2 [Moles/Vol] 26 mmol/L Normal 20-31 [facility] Comment on above: Performed By: #### B MPX, CBC #### [facility] [address] [place] [address] White Hat Hacker: Remy Haq DO Creatinine [Mass/Vol] 0.62 mg/dL Normal 0.50-0.90 [facility] Comment on above: Performed By: #### B MPX, CBC #### [facility] [address] [place] [address] White Hat Hacker: Remy Haq DO GFR, Amer >60 Normal >60 [facility] Comment on above: Performed By: #### B MPX, CBC #### [facility] [address] [place] [address] White Hat Hacker: Remy Haq DO GFR,non Amer >60 Normal >60 [facility] Comment on above: Performed By: #### B MPX, CBC #### [facility] [address] [place] [address] White Hat Hacker: Remy Haq DO Glucose [Mass/Vol] 95 mg/dL Normal 70-99 [facility] Comment on above: Performed By: #### B MPX, CBC #### [facility] [address] [place] [address] White Hat Hacker: Remy Haq DO Potassium [Moles/Vol] 4.2 mmol/L Normal 3.7-5.3 [facility] Comment on above: Performed By: #### B MPX, CBC #### [facility] [address] [place] [address] White Hat Hacker: Remy Haq DO Sodium [Moles/Vol] 137 mmol/L Normal 135-144 [facility] Comment on above: Performed By: #### B MPX, CBC #### [facility] [address] [place] [address] White Hat Hacker: Remy Haq DO Urea nitrogen [Mass/Vol] 11 mg/dL Normal - [facility] Comment on above: Performed By: #### B MPX, CBC #### [facility] [address] [place] [address] White Hat Hacker: Remy Haq DO BUN/CRE Ratio NOT REPORTED Normal -20 [facility] Comment on above: Performed By: #### B MPX, CBC #### [facility] [address] [place] [address] White Hat Hacker: Remy Haq DO Staging: NOT REPORTED Normal [facility] Comment on above: Performed By: #### B MPX, CBC #### [facility] [address] [place] [address] White Hat Hacker: Remy Haq DO CBCon 02-16-2019 Erythrocyte distribution width (RBC) [Ratio] 16.3 % High 11.5-14.9 [facility] Comment on above: Performed By: #### B MPX, CBC #### [facility] [address] [place] [address] White Hat Hacker: Remy Haq DO Hematocrit (Bld) [Volume fraction] 22.4 % Low 36-46 [facility] Comment on above: Performed By: #### B MPX, CBC #### [facility] [address] [place] [address] White Hat Hacker: Remy Haq DO Hemoglobin (Bld) [Mass/Vol] 7.6 g/dL Low 12.0-16.0 [facility] Comment on above: Performed By: #### B MPX, CBC #### [facility] [place] [address] White Hat Hacker: Remy Haq DO MCH (RBC) [Entitic mass] 29.4 pg Normal 26-34 [facility] Comment on above: Performed By: #### B MPX, CBC #### [facility] [place] [address] White Hat Hacker: Remy Haq DO MCHC (RBC) [Mass/Vol] 33.8 g/dL Normal 31-37 [facility] Comment on above: Performed By: #### B MPX, CBC #### [facility] [address] [place] [address] White Hat Hacker: Remy Haq DO MCV (RBC) [Entitic vol] 87.1 fL Normal 80-100 [facility] Comment on above: Performed By: #### Adam MPX, CBC #### [facility] [address] [place] [address] White Hat Hacker: Remy Haq DO Platelet mean volume (Bld) [Entitic vol] 6.4 fL Normal 6.0-12.0 [facility] Comment on above: Performed By: #### B MPX, CBC #### [facility] [address] [place] [address] White Hat Hacker: Remy Haq DO Platelets (Bld) [#/Vol] 503 10*3/uL High 150-450 [facility] Comment on above: Performed By: #### B MPX, CBC #### [facility] [address] [place] [address] White Hat Hacker: Remy Haq DO RBC (Bld) [#/Vol] 2.57 10*6/uL Low 4.0-5.2 [facility] Comment on above: Performed By: #### B MPX, CBC #### [facility] [address] [facility] [place] [address] White Hat Hacker: Remy Haq DO WBC (Bld) [#/Vol] 7.5 10*3/uL Normal 3.5-11.0 [facility] Comment on above: Performed By: #### B MPX, CBC #### [facility] [address] [facility] [place] [address] White Hat Hacker: Remy Haq DO NRBC Automated NOT REPORTED Normal [facility] Comment on above: Performed By: #### B MPX, CBC #### [facility] [address] [facility] [place] [address] White Hat Hacker: Remy Haq DO Basic Metabolic Panel w/ Ref savanah to MGon 02-15-2019 Anion gap [Moles/Vol] 14 mmol/L 9 - 17 mmol/L [place] Bun/Cre Ratio NOT REPORTED [place] Calcium [Mass/Vol] 8.4 mg/dL Low 8.6 - 10. 4 mg/dL [place] Chloride [Moles/Vol] 102 mmol/L 98 - 10 7 mmol/L [place] CO2 [Moles/Vol] 24 mmol/L 20 - 31 mmol/L [place] Creatinine [Mass/Vol] 0.57 mg/dL 0.5 - 0.9 mg/dL [place] GFR >60 >60 mL/min [place] GFR Non- >60 >60 mL/min [place] GFR/1.73 sq M predicted among non-blacks MDRD (S/P/Bld) [Vol rate/Area] [place] Comment on above: Average GFR for 20-2 9 years old: 116 mL/min/1.73sq m Chronic Kidney Disease: <60 mL/min/1.73sq m Kidney failure: <15 mL/min/1.73sq m eGFR calculated using average adult body mass. Additional eGFR calculator available at: http://www.Resumesimo.com/multiple_crcl_2012.htm GFR/1.73 sq M predicted among non-blacks MDRD (S/P/Bld) [Vol rate/Area] NOT REPORTED [place] Glucose [Mass/Vol] 106 mg/dL High 70 - 99 mg/dL [place] Interpretation and review of laboratory results Abnormal [place] Potassium [Moles/Vol] 4.0 mmol/L 3.7 - 5.3 mmol/L [place] Sodium [Moles/Vol] 140 mmol/L 135 - 144 mmol/L [place] Urea nitrogen [Mass/Vol] 11 mg/dL 6 - 20 mg/dL [place] CBC WITH AUTO DIFFERENTIALon 02-15-2019 Basophils (Bld) [#/Vol] 0.06 10*3/uL [place] Basophils/100 WBC (Bld) 1 % 0 - 2 % [place] Differential Type NOT REPORTED [place] Eosinophils (Bld) [#/Vol] 0.33 10*3/uL [place] Eosinophils/100 WBC (Bld) 5 % High 1 - 4 % [place] Erythrocyte distribution width (RBC) [Ratio] 15.3 % High 11.8 - 14.4 % [place] Hematocrit (Bld) [Volume fraction] 24.9 % Low 36.3 - 47.1 % [place] Hemoglobin (Bld) [Mass/Vol] 7.5 g/dL Low 11.9 - 15.1 g/dL [place] Immature granulocytes (Bld) [#/Vol] 1 % High 0 [place] Immature granulocytes (Bld) [#/Vol] 0.10 10*3/uL [place] Interpretation and review of laboratory results Abnormal [place] Lymphocytes (Bld) [#/Vol] 1.93 10*3/uL [place] Lymphocytes/100 WBC (Bld) 27 % 24 - 43 % [place] MCH (RBC) [Entitic mass] 28.2 pg 25.2 - 33.5 pg [place] MCHC (RBC) [Mass/Vol] 30.1 g/dL 28.4 - 34.8 g/dL [place] MCV (RBC) [Entitic vol] 93.6 fL 82.6 - 102.9 fL [place] Monocytes (Bld) [#/Vol] 0.60 10*3/uL [place] Monocytes/100 WBC (Bld) 8 % 3 - 12 % [place] Platelet mean volume (Bld) [Entitic vol] 9.0 fL 8.1 - 13.5 fL [place] Platelets (Bld) [#/Vol] 458 10*3/uL [place] Platelets (Bld) [#/Vol] NOT REPORTED [place] RBC (Bld) [#/Vol] 2.66 10*6/uL Low 3.95 - 5.1 1 m/uL [place] RBC morphology finding Nom (Bld) ANISOCYTOSIS PRESENT [place] Segmented neutrophils/100 WBC (Bld) 58 % 36 - 65 % [place] Segs Absolute 4.19 [place] WBC (Bld) [#/Vol] 7.2 10*3/uL [place] WBC (Bld) [#/Vol] 0.0 10*3/uL 0.0 per 10 0 WBC [place] WBC Morphology NOT REPORTED [place] Basic Metabolic Panel w/ Ref savanah to MGon 02-13-2019 Anion gap [Moles/Vol] 13 mmol/L 9 - 17 mmol/L [place] Bun/Cre Ratio NOT REPORTED [place] Calcium [Mass/Vol] 8.5 mg/dL Low 8.6 - 10. 4 mg/dL [place] Chloride [Moles/Vol] 105 mmol/L 98 - 10 7 mmol/L [place] CO2 [Moles/Vol] 23 mmol/L 20 - 31 mmol/L [place] Creatinine [Mass/Vol] 0.46 mg/dL Low 0.5 - 0.9 mg/dL [place] GFR >60 >60 mL/min [place] GFR Non- >60 >60 mL/min [place] GFR/1.73 sq M predicted among non-blacks MDRD (S/P/Bld) [Vol rate/Area] NOT REPORTED [place] GFR/1.73 sq M predicted among non-blacks MDRD (S/P/Bld) [Vol rate/Area] [place], [place] Comment on above: Average GFR for 20-2 9 years old: 116 mL/min/1.73sq m Chronic Kidney Disease: <60 mL/min/1.73sq m Kidney failure: <15 mL/min/1.73sq m eGFR calculated using average adult body mass. Additional eGFR calculator available at: http://www.Resumesimo.com/multiple_crcl_2012.htm Glucose [Mass/Vol] 86 mg/dL 70 - 99 mg/dL [place] Interpretation and review of laboratory results Abnormal [place], [place] Potassium [Moles/Vol] 4.3 mmol/L 3.7 - 5.3 mmol/L [place] Sodium [Moles/Vol] 141 mmol/L 135 - 144 mmol/L [place] Urea nitrogen [Mass/Vol] 9 mg/dL 6 - 20 mg/dL [place] CBC WITH AUTO DIFFERENTIALon 02-13-2019 Basophils (Bld) [#/Vol] 0.06 10*3/uL [place] Basophils/100 WBC (Bld) 1 % 0 - 2 % [place] Differential Type NOT REPORTED [place] Eosinophils (Bld) [#/Vol] 0.40 10*3/uL [place] Eosinophils/100 WBC (Bld) 5 % High 1 - 4 % [place] Erythrocyte distribution width (RBC) [Ratio] 14.8 % High 11.8 - 14.4 % [place] Hematocrit (Bld) [Volume fraction] 25.0 % Low 36.3 - 47.1 % [place] Hemoglobin (Bld) [Mass/Vol] 7.4 g/dL Low 11.9 - 15.1 g/dL [place] Immature granulocytes (Bld) [#/Vol] 2 % High 0 [place] Immature granulocytes (Bld) [#/Vol] 0.14 10*3/uL [place] Interpretation and review of laboratory results Abnormal [place] Lymphocytes (Bld) [#/Vol] 2.18 10*3/uL [place] Lymphocytes/100 WBC (Bld) 25 % 24 - 43 % [place] MCH (RBC) [Entitic mass] 27.1 pg 25.2 - 33.5 pg [place] MCHC (RBC) [Mass/Vol] 29.6 g/dL 28.4 - 34.8 g/dL [place] MCV (RBC) [Entitic vol] 91.6 fL 82.6 - 102.9 fL [place] Monocytes (Bld) [#/Vol] 0.66 10*3/uL [place] Monocytes/100 WBC (Bld) 8 % 3 - 12 % [place] Platelet mean volume (Bld) [Entitic vol] 8.9 fL 8.1 - 13.5 fL [place], [place] Platelets (Bld) [#/Vol] 440 10*3/uL [place] Platelets (Bld) [#/Vol] NOT REPORTED [place] RBC (Bld) [#/Vol] 2.73 10*6/uL Low 3.95 - 5.1 1 m/uL [place], [place] RBC morphology finding Nom (Bld) ANISOCYTOSIS PRESENT [place] Segmented neutrophils/100 WBC (Bld) 61 % 36 - 65 % [place] Segs Absolute 5.37 [facility] [place], [place] WBC (Bld) [#/Vol] 0.0 10*3/uL 0.0 per 10 0 WBC Sammie Seymour BLAINE KELSEY WBC (Bld) [#/Vol] 8.8 10*3/uL [facility] WBC Morphology NOT REPORTED BLAINE Renae ECHO Complete 2D W Doppler W Coloron 02-13-2019 Transthoracic Echocardiography Report (TTE) Patient Name CECI PERKINS Date of Study 02/13/2019 C Date of 1995 Gender Female Age 23 year(s) Race Unknown Room Number 0240 Height: 65 inch, 165.1 cm Corporate ID [id number] Weight: 301 pounds, 136.5 kg # Patient Acct [id number] BSA: 2.35 m^2 BMI: 50.09 kg/m^2 # MR # [id number] Regulatory Specialist Kaylen Jasso Interpreting Physician Anthony Keating Fellow Referring Nurse Practitioner Interpreting Referring Physician MICHAEL BULLOCK MD Fellow Type of Study TTE procedure:2D Echocardiogram, M-Mode, Doppler, Color Doppler. Procedure Date Date: 02/13/2019 Start: 08:48 AM Study Location: [facility] Technical Quality: Adequate visualization Indications:Irregula r [...] Wall E' velocity:0.17 m/s Lateral Wall E/E':5.8 [facility], [place] Tamir, pn Incoming Cardio Results From [facility]/ - 02/13/2019 2:01 PM EDT Transthoracic Echocardiography Report (TTE) Patient Name CECI PERKINS Date of Study 02/13/2019 C Date of 1995 Gender Female Age 23 year(s) Race Unknown Room Number 0240 Height: 65 inch, 165.1 cm Corporate ID [id number] Weight: 301 pounds, 136.5 kg # Patient Acct [id number] BSA: 2.35 m^2 BMI: 50.09 kg/m^2 # MR # [id number] Regulatory Specialist Kaylen Jasso Interpreting Physician Anthony Keating Fellow Referring Nurse Practitioner Interpreting Referring Physician MICHAEL BULLOCK MD Fellow Type of Study TTE procedure:2D Echocardiogram, M-Mode, Doppler, Color Doppler. Procedure Date Date: 02/13/2019 Start: 08:48 AM Study Location: [facility] Technical Quality: Adequate visualization Indications:Irregula r [...] Wall E' velocity:0.17 m/s Lateral Wall E/E':5.8 [place], [place] EKG 12 Leadon 02-11-2019 Atrial Rate 99 BPM [place], [place] P [place] 69 degrees [place], [place] P-R Interval 136 ms [place], [place] Q-T Interval 344 ms [place] QRS Duration 80 ms [place] QTc Calculation (Bazett) 441 ms [place], [place] R [place] 16 degrees [place], [place] T [place] 4 degrees [place], [place] Ventricular Rate 99 BPM [place] Tamir, Mhpn Incoming Ekg Results From [facility] - 02/11/2019 11:00 AM EDT Normal sinus rhythm Cannot rule out Anterior infarct , age undetermined Abnormal ECG When compared with ECG of 31-JAN-2019 19:55, No significant change was found [place] Normal sinus rhythm Cannot rule out Anterior infarct , age undetermined Abnormal ECG When compared with ECG of 31-JAN-2019 19:55, No significant change was found [place] HEMOGLOBIN AND HEMATOCRIT, B LOODon 02-11-2019 Hematocrit (Bld) [Volume fraction] 27.0 % Low 36.3 - 47.1 % [place] Hemoglobin (Bld) [Mass/Vol] 8.3 g/dL Low 11.9 - 15.1 g/dL [place] Interpretation and review of laboratory results Abnormal [place] Microscopic Urinalysison Amorphous, UA NOT REPORTED None [place], [place] Bacteria, UA NOT REPORTED None [place], [place] Casts UA [place] Crystals UA NOT REPORTED None /HPF [facility] [place] Epithelial Cells UA 0 TO 2 [place] Mucus, UA NOT REPORTED None [place], [place] Other Observations UA NOT REPORTED NOT REQ. M [place] RBC (U) [#/Vol] 5 TO 10 [place], [place] Comment on above: Reference range defi xiomy for non-centrifuged specimen. Renal Epithelial, Urine NOT REPORTED 0 /HPF [place] Trichomonas, UA NOT REPORTED None [place], [place] WBC, UA TOO NUMEROUS TO COUNT [place] Yeast, UA NOT REPORTED None [place], [place] - [place] URINALYSISon 02-11-2019 Bilirubin Urine Negative NEGATIVE [place], [place] Color, UA YELLOW YELLOW [place], [place] Glucose, Ur Negative NEGATIVE [place] Interpretation and review of laboratory results Abnormal [place] Ketones Ql (U) Negative NEGATIVE [place] Leukocyte esterase Test strip Ql (U) LARGE Abnormal NEGATIVE [place], [place] Nitrite, Urine Negative NEGATIVE [place], [place] pH, UA 5.0 [place], [place] Protein (U) [Mass/Vol] Negative NEGATIVE [place], [place] Specific [place], UA 1.013 [place], [place] Turbidity UA CLOUDY Abnormal CLEAR [place], [place] Urinalysis Comments NOT REPORTED [place] Urine Hgb MODERATE Abnormal NEGATIVE [place], [place] Urobilinogen, Urine Normal Normal [place] HEMOGLOBIN AND HEMATOCRIT, B LOODon 02-10-2019 Hematocrit (Bld) [Volume fraction] 22.5 % Low 36.3 - 47.1 % [place] Hemoglobin (Bld) [Mass/Vol] 6.8 g/dL Critically low 11.9 - 15.1 g/dL [place] Interpretation and review of laboratory results Abnormal [place] TYPE AND SCREENon 02-10-2019 ABO/Rh Positive [place], KY Arm Band Number [id number] [place], [place] Blood product type Nom (BPU) Leukocyte Reduced Red Cell [place], [place] Crossmatch Result COMPATIBLE [place], [place] Dispense Status TRANSFUSED [place], [place] Expiration Date 02/10/2019 [place] Transfusion Status OK TO TRANSFUSE M [place], [place] Unit Divison 0 [place], [place] Unit Number [id number] [place] PELVIS WO CONTRAST Additi onal Contrast? Noneon 02-09-2019 Tamir, pn Incoming Radiant Results From [facility] - 02/09/2019 12:47 PM EDT EXAMINATION: CT [...] extends anterior to the inferior pubic ramus. [place], [place] EXAMINATION: CT OF THE PELVIS WITHOUT [...] chris edema and small foci of air. [place] 1. Improved alignment of the right posterior wall acetabular fracture status post ORIF. 2. Small intra-articular right hip loose bodies. 3. The long screw extends anterior to the inferior pubic ramus. [place] HEMOGLOBIN AND HEMATOCRIT, B [facility] 02-09-2019 Hematocrit (Bld) [Volume fraction] 19.2 % Low 36.3 - 47.1 % [place] Hemoglobin (Bld) [Mass/Vol] 5.9 g/dL Critically low 11.9 - 15.1 g/dL [place], [place] Comment on above: TEST CONFIRMED Interpretation and review of laboratory results Abnormal [place] Hematocrit (Bld) [Volume fraction] 21.2 % Low 36.3 - 47.1 % [place] Hemoglobin (Bld) [Mass/Vol] 6.6 g/dL Critically low 11.9 - 15.1 g/dL [place], [place] Comment on above: TEST CONFIRMED Interpretation and review of laboratory results Abnormal [place] Hematocrit (Bld) [Volume fraction] 23.6 % Low 36.3 - 47.1 % [place] Hemoglobin (Bld) [Mass/Vol] 7.2 g/dL Low 11.9 - 15.1 g/dL [place] Interpretation and review of laboratory results Abnormal [place] CV HGB/HCTon 02-08-2019 Hematocrit (Bld) [Volume fraction] 24.4 % [place] Hemoglobin (Bld) [Mass/Vol] 7.8 g/dL gm/dL [place], [place] POCT urine pregnancyon 02-08 Beta HCG ( test) Ql (U) Negative NEGATIVE [place], [place] Comment on above: Specimens with hCG [...] 02-08-2019 Tamir, pn Incoming Radiant Results From [facility] - 02/08/2019 1:24 PM EDT EXAMINATION: THREE XRAY VIEWS OF THE RIGHT FOOT 02/08/2019 1:12 pm COMPARISON: Right ankle radiographs February 01, 2019 HISTORY: ORDERING SYSTEM PROVIDED HISTORY: Trauma/Fracture TECHNOLOGIST PROVIDED HISTORY: Trauma/Fracture FINDINGS: No fracture or dislocation. IMPRESSION: No acute osseous abnormality [facility] THREE XRAY VIEWS OF THE RIGHT FOOT 02/08/2019 1:12 pm COMPARISON: Right ankle radiographs February 01, 2019 HISTORY: ORDERING SYSTEM PROVIDED HISTORY: Trauma/Fracture TECHNOLOGIST PROVIDED HISTORY: Trauma/Fracture FINDINGS: No fracture or dislocation. [facility] No acute osseous abnormality [facility] X[facility] PELVIS (MIN 3 VIEWS)on EXAMINATION: ONE XRAY VIEW OF THE PELVIS 02/08/2019 12:48 pm COMPARISON: 01/31/2019 HISTORY: ORDERING SYSTEM PROVIDED HISTORY: AP,Judets. Post op pacu TECHNOLOGIST PROVIDED HISTORY: AP,Judets. Post op pacu FINDINGS: Status post internal fixation of the right acetabulum. Anatomic alignment. No hardware complications. [place], [place] Tam[place], pn Incoming Radiant Results From [facility] - 02/08/2019 12:57 PM EDT EXAMINATION: ONE XRAY VIEW OF THE PELVIS 02/08/2019 12:48 pm COMPARISON: 01/31/2019 HISTORY: ORDERING SYSTEM PROVIDED HISTORY: AP,Judets. Post op pacu TECHNOLOGIST PROVIDED HISTORY: AP,Judets. Post op pacu FINDINGS: Status post internal fixation of the right acetabulum. Anatomic alignment. No hardware complications. IMPRESSION: Anatomic alignment status post internal fixation of the right acetabulum [place] Anatomic alignment status post internal fixation of the right acetabulum [place], [place] Tamir, pn Incoming Radiant Results From [facility] - 02/08/2019 12:49 PM EDT EXAMINATION: ONE [...] fluoroscopic image of pelvis as described above. [place] EXAMINATION: ONE XRAY VIEW OF THE PELVIS 02/08/2019 12:39 pm COMPARISON: January 31, 2019 HISTORY: ORDERING SYSTEM PROVIDED HISTORY: intra op TECHNOLOGIST PROVIDED HISTORY: intra op FINDINGS: Intraoperative fluoroscopic image of pelvis demonstrates ORIF of right acetabular fracture with plate and screws, likely in gross anatomic alignment. A Crawley catheter is in place. [place] Intraoperative fluoroscopic image of pelvis as described above. [place] XR WRIST LEFT (MIN 3 VIEWS)o n 02-08-2019 1. Overlying cast/splint material limits evaluation of fine osseous detail. 2. Anatomic alignment of known transversely oriented nondisplaced distal left radius metaphyseal fracture after reduction. 3. No superimposed acute osseous abnormality identified. 4. Soft tissue swelling about the left wrist/distal left forearm. [place] Tam[place], [place] Incoming Radiant Results From [facility] - 02/08/2019 6:06 PM EDT EXAMINATION: 3 [...] swelling about the left wrist/distal left forearm. [place] EXAMINATION: 3 XRAY VIEWS OF THE [...] the left wrist and distal left forearm. [place] BASIC METABOLIC PANELon 01-20 Anion gap [Moles/Vol] 12 mmol/L 9 - 17 mmol/L [place], [place] Bun/Cre Ratio NOT REPORTED [place], [place] Calcium [Mass/Vol] 8.5 mg/dL Low 8.6 - 10. 4 mg/dL [place] Chloride [Moles/Vol] 102 mmol/L 98 - 10 7 mmol/L [place] CO2 [Moles/Vol] 24 mmol/L 20 - 31 mmol/L [place] Creatinine [Mass/Vol] 0.54 mg/dL 0.5 - 0.9 mg/dL [place] GFR >60 >60 mL/min [place] GFR Non- >60 >60 mL/min [place] GFR/1.73 sq M predicted among non-blacks MDRD (S/P/Bld) [Vol rate/Area] NOT REPORTED [place] GFR/1.73 sq M predicted among non-blacks MDRD (S/P/Bld) [Vol rate/Area] [place], [place] Comment on above: Average GFR for 20-2 9 years old: 116 mL/min/1.73sq m Chronic Kidney Disease: <60 mL/min/1.73sq m Kidney failure: <15 mL/min/1.73sq m eGFR calculated using average adult body mass. Additional eGFR calculator available at: http://www.Viraliti.Ripstone/multiple_crcl_2012.htm Glucose [Mass/Vol] 95 mg/dL 70 - 99 mg/dL [place] Interpretation and review of laboratory results Abnormal [place] Potassium [Moles/Vol] 4.6 mmol/L 3.7 - 5.3 mmol/L [place] Sodium [Moles/Vol] 138 mmol/L 135 - 144 mmol/L [place] Urea nitrogen [Mass/Vol] 14 mg/dL 6 - 20 mg/dL [place] BLOOD BANK SPECIMENon 2018 Blood Bank Specimen NOT REPORTED [place] CBCon 02-07-2019 Erythrocyte distribution width (RBC) [Ratio] 13.5 % 11.8 - 14.4 % [place] Hematocrit (Bld) [Volume fraction] 28.1 % Low 36.3 - 47.1 % [place] Hemoglobin (Bld) [Mass/Vol] 8.4 g/dL Low 11.9 - 15.1 g/dL [place] Interpretation and review of laboratory results Abnormal [place] MCH (RBC) [Entitic mass] 26.7 pg 25.2 - 33.5 pg [place] MCHC (RBC) [Mass/Vol] 29.9 g/dL 28.4 - 34.8 g/dL [place] MCV (RBC) [Entitic vol] 89.2 fL 82.6 - 102.9 fL [place] Platelet mean volume (Bld) [Entitic vol] 8.6 fL 8.1 - 13.5 fL [place], [place] Platelets (Bld) [#/Vol] 555 10*3/uL [place] RBC (Bld) [#/Vol] 3.15 10*6/uL Low 3.95 - 5.1 1 m/uL [place] WBC (Bld) [#/Vol] 0.0 10*3/uL 0.0 per 10 0 WBC [place] WBC (Bld) [#/Vol] 8.0 10*3/uL [place] HEMOGLOBIN AND HEMATOCRIT, B LOODon 02-05-2019 Hematocrit (Bld) [Volume fraction] 28.8 % Low 36.3 - 47.1 % [place] Hemoglobin (Bld) [Mass/Vol] 8.6 g/dL Low 11.9 - 15.1 g/dL [place] Interpretation and review of laboratory results Abnormal [place] Basic Metabolic Panel w/ Ref savanah to MGon 02-04-2019 Anion gap [Moles/Vol] 11 mmol/L 9 - 17 mmol/L [place] Bun/Cre Ratio NOT REPORTED [place] Calcium [Mass/Vol] 8.5 mg/dL Low 8.6 - 10. 4 mg/dL [place]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 PROGRAM DEVELOPER Work Phone: [facility] 08-26-2023 14:39-0500 Body height 166.4 cm Doc Guevara MD Work Phone: [facility] 08-26-2023 14:39-0500 Body mass index (BMI) [Ratio] 36.04 kg/m2 Doc Guevara MD Work Phone: [facility] 08-26-2023 14:39-0500 Body weight 99.79 kg Doc Guevara MD Work Phone: [facility] 08-26-2023 14:39-0500 Diastolic blood pressure 73 mm[Hg] Doc Guevara MD Work Phone: [facility] 08-26-2023 14:39-0500 Heart rate 73 /min Doc Guevara MD Work Phone: [facility] 08-26-2023 14:39-0500 Systolic blood pressure 134 mm[Hg] Doc Guevara MD Work Phone: [facility] 02-15-2019 08:59-0400 Body Temperature 98.1 [degF] Ale[place]andrina [place]as [place] 02-15-2019 08:59-0400 BP Diastolic 54 mm[Hg] Alejandrina Cent[place] 02-15-2019 08:59-0400 BP Systolic 129 mm[Hg] [facility] [place] 02-15-2019 08:59-0400 Pulse (Heart Rate) 89 /min [facility] [place] 02-15-2019 08:59-0400 Pulse Oximetry 93 % Alejandrina Centeno [place] 02-15-2019 08:59-0400 Respiratory Rate 18 /min Alejandrina [facility] [place] 01-31-2019 19:57-0400 BMI (Body Mass Index) 50.09 kg/m2 Alejandrina Centeno [place] 01-31-2019 19:57-0400 Body weight 136.53 kg Alejandrina [place] 01-31-2019 19:57-0400 Height 165.1 cm Alejandrina [place] Encounters Encounter Date Encounter Type Care Provider Facility Start: 11-06-2024 End: 11-06-2024 Office outpatient visit 15 minutes Jordan Urbina MD Work Phone: [facility] Comment on above: History of sleeve ga strectomy (Primary Dx) Start: 11-06-2024 End: 11-06-2024 ambulatory ALLY CRAIG [facility] Start: 11-03-2024 End: 11-03-2024 Clinisync Result Encounter [...] [facility] Start: 10-22-2024 End: 10-22-2024 ambulatory [facility] Work Phone: Start: 10-22-2024 End: 10-22-2024 Patient encounter procedure [facility] Work Phone: Start: 10-20-2024 End: 10-20-2024 [facility] Start: 10-20-2024 End: 10-20-2024 Office outpatient visit 25 minutes Jordan Urbina MD Work Phone: [facility] Comment on above: History of sleeve ga strectomy (Primary Dx); Hx of supraventricular tachycardia Start: 10-11-2024 End: 10-11-2024 Bamboo flowsheet Carey Pena NP Work Phone: [facility] Start: 10-11-2024 End: 10-11-2024 Bamboo flowsheet Carey Pena RADIO TOWER TECHNICIAN Work Phone: [facility] Start: 10-11-2024 End: 10-11-2024 ambulatory CAREY PENA Not Available Start: 10-11-2024 End: 10-11-2024 flow sheet Carey Pena RADIO TOWER TECHNICIAN Work Phone: [facility] Comment on above: Third trimester preg belkis; 30 weeks gestation of Start: 10-05-2024 End: 10-05-2024 Office outpatient new 45 minutes Liang Fitzgerald MD Work Phone: [facility] Comment on above: Hx of supraventricul ar tachycardia (Primary Dx) Start: 10-05-2024 End: 10-27-2024 ambulatory [facility] Start: 09-29-2024 End: 09-29-2024 Orders Only Triny Morales RN [facility] Comment on above: History of sleeve ga strectomy (Primary Dx); Hx of supraventricular tachycardia; Encounter for follow-up ultrasound of anatomy; Encounter for anatomic survey Start: 09-28-2024 End: 09-28-2024 ambulatory [facility] Start: 09-26-2024 End: 09-26-2024 Bamboo flowsheet Cedric [...] Urbina MD Work Phone: [facility] Comment on above: History of sleeve ga strectomy (Primary Dx); Hx of supraventricular tachycardia Start: 08-24-2024 End: 08-24-2024 Orders Only Cindy Walton RN [facility] Comment on above: History of sleeve ga strectomy (Primary Dx); Hx of supraventricular tachycardia; Encounter for follow-up ultrasound of anatomy Start: 08-14-2024 End: 08-14-2024 Chart abstracting Jordan Urbina MD Work Phone: [facility] Start: 08-05-2024 End: 08-05-2024 Clinisync Result Encounter [...] patient 18-39 yrs Zoraida SEGOVIA Work Phone: [facility] Comment on above: Screening, , for anatomic survey; Well woman exam with routine gynecological exam; Second trimester ; Exposure to STD Start: 07-31-2024 End: 07-31-2024 ambulatory ZORAIDA TRAVIS Not Available Start: 07-23-2024 End: 07-24-2024 Refill Ally Craig CLAM [employer]EDGE BOAT CAPTAIN-TRAINING PROGRAM DEVELOPER Work Phone: [facility] Comment on above: Chest cold; Acute cough; Wheezing Start: 07-16-2024 End: 07-17-2024 Refill Ally Craig CLAM [employer]EDGE BOAT CAPTAIN-TRAINING PROGRAM DEVELOPER Work Phone: [facility] Comment on above: Lumbar disc herniati on Start: 07-05-2024 End: 07-07-2024 Clinisync Result Encounter Cedric Alana DO Work Phone: [facility] External Department Unsolicited Start: 07-05-2024 End: 07-07-2024 Clinisync Result Encounter Cedric Alana DO Work Phone: [facility] External Department Unsolicited Start: 06-15-2024 End: 06-15-2024 Bamboo flowsheet Cedric Alana DO Work Phone: [facility] Start: 06-15-2024 End: 06-15-2024 Bamboo flowsheet Cedric Alana DO Work Phone: [facility] Start: 06-15-2024 End: 06-15-2024 flow sheet Cedric Alana DO Work Phone: [facility] Comment on above: , unspecifi ed gestational age; 15 weeks gestation of ; Second trimester ; H/O gastric sleeve Start: 06-15-2024 End: 06-15-2024 ambulatory CEDRIC ALANA Not Available Start: 06-06-2024 End: 06-06-2024 Clinisync Result Encounter Cedric Alana DO Work Phone: [facility] External Department Unsolicited Start: 06-06-2024 End: 06-06-2024 [...] Start: 05-02-2024 End: 05-04-2024 Refill Aranza Carballo CLAM DREDGE BOAT CAPTAIN-TRAINING PROGRAM DEVELOPER Work Phone: [facility] Comment on above: History of sleeve ga strectomy; Postsurgical malabsorption; Malnutrition following gastrointestinal surgery Start: 03-20-2024 End: 03-20-2024 Refill Aranza Carballo CLAM DREDGE BOAT CAPTAIN-TRAINING PROGRAM DEVELOPER Work Phone: [facility] Comment on above: History of sleeve ga strectomy; Postsurgical malabsorption; Malnutrition following gastrointestinal surgery; Vitamin B12 deficiency Start: 03-15-2024 End: 03-15-2024 [facility] Start: 03-15-2024 End: 03-15-2024 Office outpatient visit 25 minutes Ally Craig CLAM DREDGE BOAT CAPTAIN-TRAINING PROGRAM DEVELOPER Work Phone: [facility] Comment on above: History of sleeve ga strectomy (Primary Dx); Malnutrition following gastrointestinal surgery; Chronic fatigue; Sinus pressure; Lipid screening; Weight gain; Mixed anxiety and depressive disorder; BMI 39.0-39.9,adult Start: 03-15-2024 End: 03-15-2024 ambulatory [facility] [facility] Comment on above: History of sleeve ga strectomy (Primary Dx); Postsurgical malabsorption; Malnutrition following gastrointestinal surgery; History of anemia Start: 02-15-2024 End: 02-16-2024 Orders Only Ally Craig [employer] CAPTAIN-TRAINING PROGRAM DEVELOPER Work Phone: [facility] Family Medicine Comment on above: Lumbar disc herniati on Start: 01-25-2024 End: 01-25-2024 Telephone encounter Pat Cotter [facility] Family Medicine Start: 01-20-2024 End: 01-20-2024 [facility] Start: 01-20-2024 End: 01-20-2024 [facility] Comment on above: Dysuria (Primary Dx) Start: 12-27-2023 End: 12-28-2023 Telephone encounter Ally Craig [employer] CAPTAIN-TRAINING PROGRAM DEVELOPER Work Phone: [facility] Family Medicine Start: 12-22-2023 End: 12-22-2023 Office outpatient visit 25 minutes Ally Craig [employer] CAPTAIN-TRAINING PROGRAM DEVELOPER Work Phone: [facility] Family Medicine Comment on above: Lumbar disc herniati on (Primary Dx) Start: 12-22-2023 End: 12-22-2023 ambulatory [facility] Start: 12-08-2023 End: 12-08-2023 ambulatory NON STAFF [facility] Work Phone: Start: 12-08-2023 End: 12-08-2023 Departed Referred [facility] [address] Work Phone: Start: 08-26-2023 End: 08-26-2023 Office outpatient new 45 minutes Doc Guevara MD Work Phone: [facility] Physicians Reconstructive/Plast ic Surgery Comment on above: History of sleeve ga strectomy; Localized adiposity Start: 08-26-2023 End: 08-26-2023 ambulatory DOC GUEVARA [facility] Start: 06-07-2023 End: 06-07-2023 [facility] Start: 06-05-2022 End: 06-08-2022 ambulatory ALLY CRAIG [facility] Start: 06-05-2022 End: 06-07-2022 Subsequent hospital visit by physician Eddie Interventional Radiologist [facility] Special Procedures Comment on above: Tear of right acetab ular labrum, initial encounter Start: 03-19-2022 End: 03-19-2022 ambulatory Jeane Canela Other [employer] Other Start: 03-19-2022 Telephone encounter Jeane dalal [facility] [place] Start: 05-24-2020 End: 05-25-[address] CEDRIC WARNER Facility: Start: 02-15-2019 End: 02-22-2019 Evaluation and management of inpatient TERRI Brooke AUGUSTIN [facility] Start: 01-31-2019 End: 02-15-2019 Evaluation and management of inpatient Alejandrina Centeno Work Phone: [address] Ortho/Med Surg Comment on above: Closed [...] et rgnt non-auto w/o micrscp Radha Gan [employer] CAPTAIN-TRAINING PROGRAM DEVELOPER Work Phone: Start: 11-09-2022 Adult depression scr [...] TERRIMIRACLE AUGUSTIN Start: 02-21-2019 REMOVE SARAH TERRI SHANKAR [...] AUGUSTIN Start: 02-19-2019 TRANSFUSION REACTION MANAGEMENT TERRI AUUGSTIN Start: 02-19-2019 VERIFY INFORMED CONSENT TERRI AUGUSTIN [...] TERRI AUGUSTIN Start: 02-15-2019 IP CONSULT TO COLLEGE OR UNIVERSITY REGISTRAR AL MEDICINE TERRI AUGUSTIN Start: 02-15-2019 IP [...] Radex foot complete minimum 3 views [employer] Work Phone: Start: 02-08-2019 Radiologic exam pelv is compl minimum 3 views Manuel Ziegler Work Phone: Start: 02-08-2019 CV HGB/HCT Donn Benavidez Work Phone: Start: 02-08-2019 Radiologic exam pelv is compl minimum 3 views Mary Pop Mazariegos Work Phone: Start: 02-08-2019 End: 02-08-2019 ACETABULUM OPEN REDUCTION INTERNAL FIXATION Mary Pop [employer] Work Phone: Start: 02-08-2019 Urine test visual color cmprsn meths Donn [employer]spot Work Phone: Start: 02-07-2019 BLOOD BANK SPECIMEN Ant michelle Lakeisha Benavidez Work Phone: Start: 02-07-2019 Blood typing serologic abo Cecilio Richards Work Phone: Start: 02-07-2019 Basic metabolic pane l calcium total [employer] Work Phone: Start: 02-07-2019 Blood count complete automated [employer] Work Phone: Start: 02-05-2019 Blood count hemoglobin [...] Radiologic examinati on femur minimum 2 views [employer] Work Phone: Start: 02-01-2019 Urinalysis microscop ic [...] 02-01-2019 25 hydroxy includes fractions if performed [place] [employer] Work Phone: Start: 02-01-2019 Hepatic function panel [place] [employer] Work Phone: Start: 02-01-2019 Ct lumbar spine w/o contrast material Federico [place] Work Phone: Start: 02-01-2019 Ct thoracic spine w/ o contrast material Federico [place] Work Phone: Start: 02-01-2019 Ct thorax w/contrast material Federico [place] Work Phone: Start: 02-01-2019 Ct cervical spine w/ o contrast material Federico [place] Work Phone: Start: 02-01-2019 Ct head/brain w/o co ntrast material Federico [place] Work Phone: Start: 02-01-2019 Radiologic examinati on knee 3 views Leonel Butt Work Phone: Start: 02-01-2019 Radex wrist complete minimum 3 views [place] [employer] Work Phone: Start: 02-01-2019 Radex wrist 2 views Mil o Qian Work Phone: Start: 02-01-2019 Radiologic examinati on femur minimum 2 views Leonel [place] Butt Work Phone: Start: 02-01-2019 Radiologic examinati on tibia & fibula 2 views Leonel [place]t Work Phone: Start: 02-01-2019 Radex hip unilateral with pelvis 2-3 views Leonel [place]t Work Phone: Start: 02-01-2019 PULSE OXIMETRY, CONTINUOUS Federico [place] Work Phone: Start: 01-31-2019 END TIDAL CO2 CONTINUOUS Federico [place] Work Phone: Start: 01-31-2019 Radex hip unilateral with pelvis 2-3 views Federico [place] Work Phone: Start: 01-31-2019 Radex wrist complete minimum 3 views Federico [place] Work Phone: Start: 01-31-2019 Basic metabolic pane l calcium total Federico [place] Work Phone: Start: 01-31-2019 Blood count complete auto&auto difrntl wbc Federico [place] Work Phone: Start: 01-31-2019 Gonadotropin chorion ic qualitative Federico [place] Work Phone: Start: 01-31-2019 Ecg routine ecg w/le ast 12 lds i&r only Federico Plummer Work Phone: Start: 01-31-2019 EKG REPORT Hpf Kari eason Plan of Treatment Date Care Activity Detail Author Start: 07-31-2027 Screening for malign ant neoplasm of cervix [facility] Start: 11-06-2025 Adult BMI Screening [facility] Start: 10-05-2025 Adult BMI Screening [facility] Start: 10-05-2025 Tobacco Screening Tobacco Screening [facility] [employer] [facility] Start: 09-29-2025 End: 09-29-2025 US MFM with or without consult US MFM with or without consult Imaging Routine History of sleeve gastrectomy Hx of supraventricular tachycardia Encounter for follow-up ultrasound of anatomy Encounter for anatomic survey Expected: 09/29/2025 (Approximate), Expires: 09/29/2025 [facility] Work Phone: Comment on above: Expected: 09/29/2025 (Approximate), Expires: 09/29/2025 Start: 08-24-2025 Adult BMI Screening [facility] Start: 08-24-2025 Tobacco Screening [facility] Start: 08-24-2025 End: 08-24-2025 US MFM with or without consult US MFM with or without consult Imaging Routine History of sleeve gastrectomy Hx of supraventricular tachycardia Encounter for follow-up ultrasound of anatomy Expected: 08/24/2025 (Approximate), Expires: 08/24/2025 [employer] Work Phone: Comment on above: Expected: 08/24/2025 (Approximate), Expires: 08/24/2025 Start: 03-15-2025 Adult BMI Screening [facility] Start: 03-15-2025 Tobacco Screening [facility] Start: 02-19-2025 Influenza vaccination N [facility] Start: 01-19-2025 Tobacco Screening [facility] Start: 12-21-2024 Adult BMI Screening Adult [facility] Screen [facility] Start: 12-21-2024 Tobacco Screening Tobacco Screening [facility] Start: 11-18-2024 DTaP,Tdap and Td Vaccines (7 - Td or Tdap) DTaP,Tdap and Td Vaccines (7 - Td or Tdap) [facility] Start: 11-18-2024 DTaP/Tdap/Td vaccine (7 - Td or Tdap) DTaP/Tdap/Td vaccine (7 - Td or Tdap) [facility] Start: 11-18-2024 DTaP/Tdap/Td vaccine (7 - Td) DTaP/Tdap/Td vaccine (7 - Td) [facility] Start: 11-10-2024 End: 11-10-2024 Patient encounter procedure 11/10/2024 9:15 AM EDT Office Visit [facility] Cardiology [address] [place] [phone] Liang Fitzgerald MD [address] [place] [address] [facility] Card[facility] Start: 11-09-2024 End: 11-09-2024 Patient encounter procedure 11/09/2024 9:50 AM EDT Routine [facility] [address] [place] [phone] Zoraida Travis PA [address] [place] [address] [facility] Start: 11-06-2024 End: 11-06-2024 Patient encounter procedure 11/06/2024 11:00 AM EDT Appointment [facility] [address] [place] [phone] [facility] Start: 10-25-2024 End: 10-25-2024 [...] 9:45 AM EDT Telemedicine Maternal- Medicine at [facility] [address] [place] [address] Jordan Urbina MD [address], [address] [place] [address] Maternal- Medicine at [facility] Start: 10-11-2024 End: 10-11-2024 Patient encounter procedure 10/11/2024 9:40 AM EDT Routine [facility] [address] [phone] Zoraida Travis PA [address] [place] [address] [facility] Start: 10-05-2024 End: 10-05-2025 Wireless Telemetry (In Office) [facility] Work Phone: Comment on above: Expected: 10/05/2024 , Expires: 10/05/2025 Start: 10-05-2024 End: 10-05-2024 Patient encounter procedure 10/05/2024 8:30 AM EDT Office Visit [facility] [address] [place] [phone] Liang Fitzgerald MD [address] [place] [address] [facility] Start: 09-28-2024 End: 09-28-2024 Patient encounter procedure 09/28/2024 2:45 PM EDT Appointment [facility] [address] [place] [address] [facility] Start: 09-26-2024 End: 09-26-2024 Patient encounter procedure 09/26/2024 9:50 AM EDT Routine [facility] [address] [place] [phone] Cedric Warner DO [address] [place], [place] [phone] Arrived [facility] Comment on above: Arrived Start: 08-29-2024 End: 08-29-2024 Patient encounter procedure 08/29/2024 8:30 AM EDT Routine [facility] [address] [place] [phone] Zoraida Travis, PA [address] [place], [place] [id number] [facility] Start: 08-25-2024 Adult BMI Screening Adult BMI Screen ing [facility] Start: 08-25-2024 Tobacco Screening Tobacco Screening [facility] Start: 08-24-2024 End: 08-24-2024 Patient encounter procedure [facility] Start: 07-31-2024 End: 07-31-2025 US for US OB 14+ weeks anatomy scan Imaging Routine Screening, , for anatomic survey Expected: 07/31/2024, Expires: 07/31/2025 [facility] Comment on above: Expected: 07/31/2024 , Expires: 07/31/2025 Start: 07-31-2024 End: 07-31-2024 Patient encounter procedure 07/31/2024 11:30 AM EST Routine [facility] [address] [place] [phone] Zoraida Travis, PA [address] [place], [place] [phone] Arrived [facility] Comment on above: [...] AM EST Initial [facility] [address] [place] [address] [facility] Start: 05-29-2024 End: 05-29-2024 Professional / ancillary services management 05/29/2024 8:00 AM EST Ancillary Procedure [facility] [address] [place] [phone] [facility] Start: 05-17-2024 End: 05-17-2024 Patient encounter procedure 05/17/2024 7:40 AM EST Office Visit [facility] [address] [place] [address] [place] [phone] Ally Craig, CLAM DREDGE BOAT CAPTAIN-TRAINING PROGRAM DEVELOPER [address], [place] [address] [facility] Start: 05-11-2024 End: 05-11-2024 Patient encounter procedure 05/11/2024 1:30 PM EST Office Visit [facility] General Surgery-Bariatric [address] [place] [phone] Giulia Samayoa PA-Joy [address] [place] [address] [facility] Start: 03-30-2024 End: 03-30-2024 Patient encounter procedure 03/30/2024 2:00 PM EDT Office Visit [facility] [address] [place] [phone] Giulia Samayoa PA-Joy [address] [place] [phone] [facility] Start: 03-15-2024 End: [...] History of anemia Expected: 03/15/2024, Expires: 03/15/2025 [facility] Comment on above: Expected: 03/15/2024 , Expires: 03/15/2025 Start: 03-15-2024 End: 03-15-2025 Copper, S Copper, S Lab Routine History of sleeve 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 History of anemia Expected: 03/15/2024, Expires: 03/15/2025 [facility] Comment on above: Expected: 03/15/2024 , Expires: 03/15/2025 Start: 03-15-2024 End: 03-15-2025 Cyanocobalamin vitamin b-12 Vitamin B12 Lab Routine History of sleeve 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 History of anemia Expected: 03/15/2024, Expires: 03/15/2025 [facility] Comment on above: Expected: 03/15/2024 , Expires: 03/15/2025 Start: 03-15-2024 End: 03-15-2025 Ferritin [Mass/volume] in Serum or Plasma Ferritin Lab Routine History of sleeve 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 History of anemia Expected: 03/15/2024, Expires: 03/15/2025 [facility] Comment on above: Expected: 03/15/2024 , Expires: 03/15/2025 Start: 03-15-2024 End: 03-15-2025 Folate Folate Lab Routine History of sleeve 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 History of anemia Expected: 03/15/2024, Expires: 03/15/2025 [facility] Comment on above: Expected: 03/15/2024 , Expires: 03/15/2025 Start: 03-15-2024 End: 03-15-2025 Iron and TIBC Iron and TIBC Lab Routine History of sleeve 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 History of anemia Expected: 03/15/2024, Expires: 03/15/2025 [facility] Comment on above: Expected: 03/15/2024 , Expires: 03/15/2025 Start: 03-15-2024 End: 03-15-2025 Liver panel Liver panel Lab Routine History of sleeve 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 History of anemia Expected: 03/15/2024, Expires: 03/15/2025 [facility] Comment on above: Expected: 03/15/2024 , Expires: 03/15/2025 Start: 03-15-2024 End: 03-15-2025 Parathyroid Hormone, intact Parathyroid Hormone, intact Lab Routine History of sleeve 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 History of anemia Expected: 03/15/2024, Expires: 03/15/2025 [facility] Comment on above: Expected: 03/15/2024 , Expires: 03/15/2025 Start: 03-15-2024 End: 03-15-2025 Thiamin (Vitamin B1), WB Thiamin (Vitamin B1), WB Lab Routine History of sleeve 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 History of anemia Expected: 03/15/2024, Expires: 03/15/2025 [facility] Comment on above: Expected: 03/15/2024 , Expires: 03/15/2025 Start: 03-15-2024 End: 03-15-2025 Vitamin A (Retinol) Vitamin A (Retinol) Lab Routine History of sleeve 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 History of anemia Expected: 03/15/2024, Expires: 03/15/2025 [facility] Comment on above: Expected: 03/15/2024 , Expires: 03/15/2025 Start: 03-15-2024 End: 03-15-2025 Vitamin D 25 hydroxy Vitamin D 25 hydroxy Lab Routine History of sleeve 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 History of anemia Expected: 03/15/2024, Expires: 03/15/2025 [facility] Comment on above: Expected: 03/15/2024 , Expires: 03/15/2025 Start: 03-15-2024 End: 03-15-2025 Zinc, Serum Zinc, Serum Lab Routine History of sleeve 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 History of anemia Expected: 03/15/2024, Expires: 03/15/2025 [facility] Comment on above: Expected: 03/15/2024 , Expires: 03/15/2025 Start: 03-15-2024 End: 03-15-2024 Patient encounter procedure 03/15/2024 7:40 AM EDT Office Visit [facility] [address] [place] [phone] Ally Craig, [employer] CAPTAIN-TRAINING PROGRAM DEVELOPER [address], [place] [address] [facility] Start: 02-20-2024 COVID-19 Vaccine ( season) COVID-19 Vaccine ( season) [facility] Start: 02-20-2024 COVID-19 Vaccine ( season) COVID-19 Vaccine ( season) [facility] Start: 02-20-2024 Influenza vaccination N [facility] Start: 01-19-2024 End: 01-19-2024 Patient encounter procedure 01/19/2024 10:20 AM EDT Office Visit [facility] [address] [place] [phone] Ally Craig, CLAM [employer]ED[employer]AT CAPTAIN-TRAINING PROGRAM DEVELOPER [address], [place] [address] [facility] Start: 11-16-2023 End: 11-16-2023 Patient encounter procedure 11/16/2023 10:00 AM EDT Office Visit [facility] General Surgery-Bariatric [address] [place] [phone] Giulia Samayoa PA-C [address] [address] [facility] General Surgery-Bariatric Start: 11-10-2023 Depression Screening Depression Scre ening [facility] Start: 02-19-2023 COVID-19 Vaccine ( season) COVID-19 Vaccine ( season) [facility] Start: 12-29-2022 Adult BMI Follow Up Plan Adult BMI Follow Up Plan [facility] Start: 11-19-2022 Adult BMI Follow Up Plan Adult BMI Follow Up Plan [facility] Start: 01-19-2022 Influenza vaccination Flu vaccine (# 1) [facility] Start: 04-25-2021 COVID-19 Vaccine (2 - Booster for Neel series) COVID-19 Vaccine (2 - Booster for Neel series) [facility] Start: 02-21-2019 End: 02-21-2019 Office Visit 02/21/2019 Office Visit Orthopedic Surgery Mary Mazariegos DO [address] [facility] [address] [address] [place] [address] [phone] [facility] Start: 02-19-2019 Influenza vaccination Flu vaccine (# 1) [place], [place] Start: 2016 Cervical cancer screen Cervical canc er screen [place], [place] Start: 2016 Screening for malign ant neoplasm of cervix Pap smear [facility] Start: 2013 Adult BMI Follow Up Plan Adult BMI Follow Up Plan [facility] Start: 2011 Chlamydia screen Chlamydia screen [place], [place] Start: 2010 HIV screen HIV screen [place], [place] Start: 2010 HIV screening HIV screen [facility] Start: 2010 HPV vaccine (1 - Fem samuel 3-dose series) HPV vaccine (1 - Female 3-dose series) [place], [place] Start: 2008 Varicella Vaccine (1 of 2 - 13+ 2-dose series) Varicella Vaccine (1 of 2 - 13+ 2-dose series) [place], [place] Start: 2007 Depression Monitoring Depression Mon itoring [facility] Start: 2001 Pneumococcal 0-64 ye ars Vaccine (1 - PCV) Pneumococcal 0-64 years Vaccine (1 - PCV) [facility] Start: 2001 Pneumococcal 0-64 ye ars Vaccine (1 of 1 - PPSV23) Pneumococcal 0-64 years Vaccine (1 of 1 - PPSV23) [place], [place] Start: 1996 Varicella vaccine (1 of 2 - 2-dose childhood series) Varicella vaccine (1 of 2 - 2-dose childhood series) [facility] Bacteria identified in Urine by Culture Urine culture Microbiology Routine Missed menses Ordered: 05/29/2024 [facility] Comment on above: Ordered: 05/29/2024 End: 01-19-2025 Bacteria identified in Urine by Culture Urine culture (clean catch) Microbiology Routine Dysuria 1 Occurrences starting 01/20/2024 until 01/19/2025 [facility] Work Phone: Comment on above: 1 Occurrences starti ng 01/20/2024 until 01/19/2025 CBC W Auto Different ial panel - Blood CBC and differential Lab Routine Missed menses , unspecified gestational age Ordered: 05/29/2024 [facility] [employer] Comment on above: Ordered: 05/29/2024 End: 03-15-2025 CBC W Auto Differential panel -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
== END 2024-11-14 12:40 | disposition home or self-care (01) ==
LOC: FBCO 12:02 → FBC 12:13
PROVIDERS: PCP Nurse Practitioner; Visit Provider Obstetrics & Gynecology
DX: O26.893 Other specified pregnancy related conditions, third trimester (principal); O99.843 Bariatric surgery status complicating pregnancy, third trimester; Z3A.35 35 weeks gestation of pregnancy
CPT/HCPCS: 59025; 87081

== ENCOUNTER 2024-11-14 19:24 | Outpatient (REF) | payer OTHER, SELFPAY ==
--- OUTSIDE RECORDS SUMMARY | 2023-09-30 06:30 | XMS_ITS ---
Author Organization [facility] vices Address [address], [place] [address] Care Team Providers Care Skates Operator Name Role Phone Dionne Grande Unavailable [phone] REASON FOR VISIT 2 week f/u Medications [...] Problem Status W/U Status Risk Notes Problem 093743660 Anxiety with depression (F41.8) Active confirmed Encounters Encounter Location Date Provider Diagnosis Main [address] [place], [place] [id number] 09/30/2023 Dionne Grande Bipolar disorder F31 .9 ; [facility] current use of antipsychotic medication Z79.899 and Anxiety with depression F41.8 Assessments Encounter Date Diagnosis (ICD Code) Assessment Notes Treatment Notes Treatment Clinical Notes Section Notes 09/30/2023 Bipolar disorder (ICD-10 - F31.9) needs improvement Schedule wellness with PCP. Obtain ordered labs. 09/30/2023 [facility] current use of antipsychotic medication (ICD-10 - [...] , 11/20/2024 08:00:00 AM, [address] [place], [place], [phone], Provider Name:Kelli Hyde , 11/22/2024 08:30:00 AM, [address] [place], [place], [id number], Progress Notes * Jana RAMANDOB:1995 ( 29 yo F)Acc No.[id number]:09/30/2023 Patient: Jana VEGA Provider: JOANA CentenoHNP-BC :1995 A ge:28 Y S ex:Female Date:09/30/2023 Address:[address] [place], [place] [phone] Subjective: * Chief Complaints: * 1 . [...] Problems: * Billing Information: * Visit Code: 19051 Office Visit Est 10 -19 minutes. * Procedure Codes: Care Plan Details* * Electronic signature of TANYA Peters on 11/14/2024 at 08:08 AM EDT Sign off status: Pending * Provider: TANYA Centeno Date: 0 09/30/2023 Generated for Jc eason/William/Rony on: 0 11/14/2024 08:08 AM EDT
--- OUTSIDE RECORDS SUMMARY | 2024-01-07 05:00 | XMS_ITS ---
Author Organization [facility] Address [address] [place] [address] Care Team Providers Care Pvc Monitor Name Role Phone Pascale Mcmahon Unavailable [phone] REASON FOR VISIT LUMBAR PAIN Encounters Encounter Location Date Provider Diagnosis [facility] Office [address] [place] [address] [place] [address] 01/07/[address] Ruelas Lumbar back pain M54.50 Assessments Encounter Date Diagnosis (ICD Code) Assessment Notes Treatment Notes Treatment Clinical Notes Section Notes 01/07/2024 Lumbar back pain (ICD-10 - M54.50) Plan Of Treatment Pending Test Test Name Order Date Lumbar spine 2v flex and ext - 81277 Progress Notes * RE CULLENCA CDOB:1995 (29 yo F)Acc No.[id number]:01/07/2024 Patient: MADDIE VEGA Provider: Edwardo García MD, PhD :1995 A ge:28 Y S ex:Female Date:01/07/2024 Address:[address] [place], [place] [id number] Subjective: * Chief Complaints: * 1 . LUMBAR PAIN. * Medical History: Objective: * Vitals: Assessment: * Assessment: 1. L umbar back pain - M54.50 (Primary) Plan: * Treatment: Forms: * Images: * Electronic signature of Selv on [facility] Jessenia MD, PHD on 11/14/2024 at 07:27 PM EDT Sign off status: Pending * Provider: Edwardo García MD, PhD Date: 01/07/2024 Generated for Printi ng/William/Lauraitting on: 0 11/14/2024 07:27 PM EDT
--- OUTSIDE RECORDS SUMMARY | 2024-11-06 10:39 | XMS_ITS | Encounter Summary ---
Author Organization [facility] [facility] tem Address [facility] [place]-[id number] [address] [place] [address] Care Team Providers Care Inside Sales Territory Manager Name Role Phone Ally Craig FORGING PRESS LEVER TENDER-PATIENT SAFETY ATTENDANT Primary Care Provi collin Reason for Referral * Diagnostic Imaging (Routine) - Pending Review Specialty Diagnoses / Procedures Referred By Violeta dalal Referred To Contact Maternal and Medicine Diagnoses History of sleeve gastrectomy Hx of supraventricular tachycardia Encounter for follow-up ultrasound of anatomy Encounter for anatomic survey Procedures US [facility]FM with or without consult Luis Angel Nguyen MD [address] [address] Phone: tel: fax: Maternal- Medicine at [facility] [address] [place] [address] Phone: tel: fax: Referral ID Status Reason Start Date Expiration Date V isits Requested Visits Authorized [id number] Pending Review 09/29/2024 09/29/2025 1 1 Reason for Visit * Diagnostic Imaging (Routine) - Pending Review Specialty Diagnoses / Procedures Referred By Violeta dalal Referred To Contact Maternal and Medicine Diagnoses History of sleeve gastrectomy Hx of supraventricular tachycardia Encounter for follow-up ultrasound of anatomy Encounter for anatomic survey Procedures US [facility] with or without consult Luis Angel Nguyen MD [address] [facility]YNF[facility], [address] [place] [address] Phone: tel: fax: Maternal- Medicine at [facility] [address] [place] [address] Phone: tel: fax: Referral ID Status Reason Start Date Expiration Date V isits Requested Visits Authorized [id number] Pending Review 09/29/2024 09/29/2025 1 1 Encounter Details Date Type Department Care Team (Latest Contact Info) Description 11/06/2024 10:39 AM EDT - 11/06/2024 11:59 PM EDT Hospital Encounter [facility] US Imaging [address] [place] [address] History of sleeve gastrectomy; Hx of supraventricular tachycardia; Encounter for follow-up ultrasound of anatomy; Encounter for anatomic survey Discharge Disposition: Home Social History Tobacco Use Types Packs/Day Years [...] got money to buy more. Never True 11/06/2024 Within the past 12 months th e food we bought just didn't last and we didn't have money to get more. Never True 11/06/2024 Purpose - Life Answer Date Recorded Purpose and direction in life Unknown Estimated Date of Delivery Comme nts Yes 12/14/2024 Based on Ultraso und Sex and Gender Information Value Date Recorded Sex Assigned at Not on file Legal Sex Female 11:54 AM EDT Gender Identity Not on file Sexual Orientation Not on file documented as of this encounter Medications at Time of Discharge albuterol (PROVENTIL HFA;VENTOLIN HFA) 90 mcg/actuation inhalerIndications:Ch est cold,Acute cough,Wheezing Inhale 2 puffs every 6 (six) hours as needed for wheezing. 18 g 3 5 azelastine (ASTELIN) 137 mcg (0.1 %) nasal sprayIndications:Sinu s pressure Administer 1 spray into each nostril in the morning and 1 spray before bedtime. Use in each nostril as directed. 30 mL 2 4 busPIRone (BUSPAR) 7.5 mg tabletIndications:Iain ght gain,Mixed anxiety and depressive disorder Take 1 tablet (7.5 mg total) by mouth 3 (three) times a day. 90 tablet 2 4 cholecalciferol, vitamin D3, 50,000 units tabletIndications:His tory of sleeve gastrectomy,Postsurgi billie malabsorption,Malnutr ition following gastrointestinal surgery,Vitamin D deficiency Take 1 tablet (50,000 Units total) by mouth once a week. 12 tablet 3 cyanocobalamin (VITAMIN B-12) 1,000 mcg/mL injectionIndications: History of sleeve gastrectomy,Postsurgi billie malabsorption,Malnutr ition following gastrointestinal surgery,Vitamin B12 deficiency Inject 1 mL (1,000 mcg total) into the appropriate muscle every 30 (thirty) days. 6 mL 3 cyanocobalamin (VITAMIN B-12) 1,000 mcg/mL injectionIndications: History of sleeve gastrectomy,Postsurgi billie malabsorption,Malnutr ition following gastrointestinal surgery INJECT 1 ML INTO THE APPROPRIATE MUSCLE EVERY 30 DAYS 6 mL 1 4 lidocaine (LIDODERM) 5 %Indications:Lumbar disc herniation USE 1 PATCH EXTERNALLY ONCE DAILY . REMOVE AND DISCARD PATCH WITHIN 12 HOURS OR DIRECTED BY DOCTOR. 30 patch 1 5 methylPREDNISolone (MEDROL) 4 mg tablet Take 1 tablet (4 mg total) by mouth in the morning. metoprolol succinate XL (TOPROL XL) 25 mg 24 hr tablet Take 1 tablet (25 mg total) by mouth as needed (for persisent HR >150 BPM lasting 15-20 mins). 30 tablet 11 5 omeprazole (PriLOSEC OTC) 20 mg EC tabletIndications:His tory of sleeve gastrectomy Take 1 tablet (20 mg total) by mouth in the morning. 60 tablet 2 5 PNV 19/iron ps,heme/folic/dha ( MV & MIN ORAL) Take 1 tablet by mouth once daily. vit 10-iron fum-folic 65-1 mg tabletIndications:Mor bid obesity (CMS-HCC),Healthcare maintenance Take 1 tablet by mouth in the morning. 90 tablet 3 2 syringe with needle (BD LUER-DIEGO SYRINGE) 3 mL 25 x 1 1/2 syringeIndications:Hi story of sleeve gastrectomy,Postsurgi billie malabsorption,Malnutr ition following gastrointestinal surgery 1 SYRG by miscellaneous route every 30 (thirty) days. 6 each 1 2 syringe with needle (BD LUER-DIEGO SYRINGE) 3 mL 25 x 1 1/2 syringeIndications:Hi story of sleeve gastrectomy,Postsurgi billie malabsorption,Malnutr ition following gastrointestinal surgery,Vitamin B12 deficiency USE 1 SYRINGE EVERY 30 DAYS 6 each 1 4 documented as of this encounter Plan of Treatment Not on file documented as of this encounter Goals Goal Patient Goal Type Associated Problems Recent Progress Patient-Stated? Author D/C Home General Yes Yaneth Bright, FORGING PRESS LEVER TENDER-PATIENT SAFETY ATTENDANT Note: Evaluation of progress towards goal: Pt plans to d/c home with self care and family support. documented as of this encounter Procedures Procedure Name Priority Date/Time Associated Diagnosis Comments US [facility] OB FOLLOW-UP, 1 FETUS Routine 11/06/2024 1:37 PM EDT History of sleeve gastrectomy Hx of supraventricular tachycardia Encounter for follow-up ultrasound of anatomy Encounter for anatomic survey documented in this encounter Results * US [facility] OB FOLLOW-UP, 1 FETUS (11/06/2024 1:37 PM EDT) Anatomical Region Laterality Modality OB-GROUND WATER CONTRACTOR Ultrasound 11/06/2024 11:3 9 AM EDT Narrative 11/06/2024 3:01 PM EDT NAME: CECI PERKINS : 1995 SEX: F Accession Number: [id number] ORDERING PHYSICIAN: LUIS ANGEL NGUYEN REFERRING PHYSICIAN: ARMINDA WHITE Coding ----- --------- Procedures 69443: Follow-up Ultrasound, per fetus Indication ----- --------- Obesity in , Previous , Previous bariatric surgery, Screening for follow-up survey History ----- --------- OB History 7. Para 1 [id number] Maternal Assessment ----- --------- Physical Exam Height 165 cm, 5 ft 5 in. Initial weight 97 kg, 213 lb. Initial BMI 35.45 kg/m Method ----- --------- Transabdominal ultrasound examination. View: Suboptimal view: limited by late gestational age ----- --------- Alonso . Number of fetuses: 1 Dating ----- --------- LMP on: 12/22/2023 Cycle: irregular cycle, LMP date uncertain, regular cycle GA by prior assessment 35 w + 4 d MERLINE by prior assessment: 12/07/2024 Previous Ultrasound on: 05/13/2024 Type of prior assessment: GA GA at prior assessment date 9 w + 2 d GA by previous U/S 34 w + 4 d MERLINE by previous Ultrasound: 12/14/2024 Ultrasound examination on: 11/06/2024 GA by U/S based upon: AC, BPD, Femur, HC GA by U/S 33 w + 4 d MERLINE by U/S: 12/21/2024 Assigned: based on ultrasound (GA), selected on 08/24/2024 Assigned GA 34 w + 4 d Assigned MERLINE: 12/14/2024 General Evaluation ----- --------- Cardiac activity Present. FHR 149 bpm. Presentation: cephalic Placenta: Placental site: anterior, away from cervical os Umbilical cord: Cord vessels: 3 vessel cord. Insertion site: documented previously Amniotic fluid: Amount of AF: normal amount. MVP 5.1 cm Biometry ----- --------- Standard BPD 80.6 mm 32w 3d 4% Hadlock OFD 112.7 mm 38w 2d 96% Jody HC 308.4 mm 34w 3d 14% Hadlock Cerebellum tr 48.7 mm 36w 1d 71% Hill AC 295.5 mm 33w 4d 26% Hadlock Femur 66.1 mm 34w 0d 28% Hadlock Humerus 60.9 mm 35w 2d 83% Jody HC / AC 1.04 EFW 2,246 g 22% Hadlock EFW (lb) 4 lb EFW (oz) 15 oz EFW by: Hadlock ([id number]) Extended Tibia 56.0 mm 32w 6d 26% Jody Brick And Block Mason 3.4 mm CM 9.1 mm 87% Nicolaides Head / Face / Neck Cephalic index 0.72 <1% Nicolaides Nasal bone: documented previously Extremities / Bony Struc FL / BPD 0.82 FL / HC 0.21 FL / AC 0.22 Other Structures FHR 149 bpm Anatomy ----- --------- The following structures appear normal: Head/Neck: Cranium. Lateral ventricles. Cavum septi pellucidi. Cerebellum. Cisterna magna. Parenchyma. Neck. Heart/Thorax: 4-chamber view. Cardiac axis. Cardiac size. Cardiac rhythm. Right lung. Left lung. Diaphragm. Abdomen: Stomach. Kidneys. Bladder. Small bowel. Large bowel. Genitals. Extremities/Skeleton: Left upper arm. Left forearm. Skeleton The following structures could not be adequately visualized: Face: Lips. Nose. Maxilla. Mandible. Heart / Thorax Ductal arch view. Spine: Cervical spine. Thoracic spine. Lumbar spine. Sacral spine. Extremities / Right hand. Left hand. Skeleton The following structures were documented previously: Head / Neck Choroid plexus. Midline falx. Vermis. Face Profile. Nasal bone. Orbits. Heart / Thorax RVOT view. LVOT view. 3-vessel view. 1-jjvkga-cgnhpzm view. Situs. Aortic arch view. Bicaval view. Interventricular septum. Great vessels. Cardiac position. Abdomen Abdom. wall. Cord insertion. Right renal artery. Left renal artery. Extremities / Right upper arm. Right forearm. Right upper leg. Right lower leg. Right foot. Left upper leg. Left lower leg. Left foot. Maternal Structures ----- --------- Uterus Visualized Cervix Suboptimal Right Ovary Not visualized Left Ovary Not visualized Cul de Sac Suboptimal Impression ----- --------- Single viable intrauterine with appropriate interval growth. EFW measures at the 22%, AC measures at the 26%. Amniotic fluid MVP measures 5.1 cm. Recommendations ----- --------- Please see MFM documentation from today. anatomic survey is incomplete due to late gestational age and suboptimal visualization. Subsequent follow up or other follow up as clinically determined by primary OB provider unless otherwise specified by M. Results forwarded to ordering provider so they can follow up with the patient as necessary. Procedure Note Erlin Chung MD - 11/06/2024 NAME: CECI PERKINS : 1995 SEX: F Accession Number: [id number] ORDERING PHYSICIAN: LUIS ANGEL NGUYEN REFERRING PHYSICIAN: ARMINDA WHITE Coding ----- --------- Procedures [id number]: Follow-up Ultrasound, per fetus Indication ----- --------- Obesity in , Previous , Previous bariatric surgery,Screening for follow-up survey History ----- --------- OB History 7. Para 1 [id number] Maternal Assessment ----- --------- Physical Exam Height 165 cm, 5 ft 5 in. Initial weight 97 kg, 213 lb.Initial BMI 35.45 kg/m Method ----- --------- Transabdominal ultrasound examination. View: Suboptimal view: limited bylate gestational age ----- --------- Alonso . Number of fetuses: 1 Dating ----- --------- LMP on: 12/22/2023 Cycle: irregular cycle, LMP date uncertain, regular cycle GA by prior assessment 35 w + 4 d MERLINE by prior assessment: 12/07/2024 Previous Ultrasound on: 05/13/2024 Type of prior assessment: GA GA at prior assessment date 9 w + 2 d GA by previous U/S 34 w + 4 d MERLINE by previous Ultrasound: 12/14/2024 Ultrasound examination on: 11/06/2024 GA by U/S based upon: AC, BPD, Femur, HC GA by U/S 33 w + 4 d MERLINE by U/S: 12/21/2024 Assigned: based on ultrasound (GA), selected on 08/24/2024 Assigned GA 34 w + 4 d Assigned MERLINE: 12/14/2024 General Evaluation ----- --------- Cardiac activity Present. FHR 149 bpm. Presentation: cephalic Placenta: Placental site: anterior, away from cervical os Umbilical cord: Cord vessels: 3 vessel cord. Insertion site: documentedpreviously Amniotic fluid: Amount of AF: normal amount. MVP 5.1 cm Biometry ----- --------- Standard BPD 80.6 mm 32w 3d 4% Hadlock OFD 112.7 mm 38w 2d 96% Jody HC 308.4 mm 34w 3d 14% Hadlock Cerebellum tr 48.7 mm 36w 1d 71% Hill AC 295.5 mm 33w 4d 26% Hadlock Femur 66.1 mm 34w 0d 28% Hadlock Humerus 60.9 mm 35w 2d 83% Jody HC / AC 1.04 EFW 2,246 g 22% Hadlock EFW (lb) 4 lb EFW (oz) 15 oz EFW by: Hadlock ([id number]) Extended Tibia 56.0 mm 32w 6d 26% Jody Brick And Block Mason 3.4 mm CM 9.1 mm 87% Nicolaides Head / Face / Neck Cephalic index 0.72 <1% Nicolaides Nasal bone: documented previously Extremities / Bony Struc FL / BPD 0.82 FL / HC 0.21 FL / AC 0.22 Other Structures FHR 149 bpm Anatomy ----- --------- The following structures appear normal: Head/Neck: Cranium. Lateral ventricles. Cavum septi pellucidi. Cerebellum.Cisterna magna. Parenchyma. Neck. Heart/Thorax: 4-chamber view. Cardiac axis. Cardiac size. Cardiacrhythm. Right lung. Left lung. Diaphragm. Abdomen: Stomach. Kidneys. Bladder. Small bowel. Large bowel. Genitals. Extremities/Skeleton: Left upper arm. Left forearm. Skeleton The following structures could not be adequately visualized: Face: Lips. Nose. Maxilla. Mandible. Heart / Thorax Ductal arch view. Spine: Cervical spine. Thoracic spine. Lumbar spine. Sacral spine. Extremities / Right hand. Left hand. Skeleton The following structures were documented previously: Head / Neck Choroid plexus. Midline falx. Vermis. Face Profile. Nasal bone. Orbits. Heart / Thorax RVOT view. LVOT view. 3-vessel view. 3-vkugmh-ewfxiyu view.Situs. Aortic arch view. Bicaval view. Interventricular septum. Great vessels. Cardiac position. Abdomen Abdom. wall. Cord insertion. Right renal artery. Left renalartery. Extremities / Right upper arm. Right forearm. Right upper leg. Rightlower leg. Right foot. Left upper leg. Left lower leg. Left foot. Maternal Structures ----- --------- Uterus Visualized Cervix Suboptimal Right Ovary Not visualized Left Ovary Not visualized Cul de Sac Suboptimal Impression ----- --------- Single viable intrauterine with appropriate interval growth. EFWmeasures at the 22%, AC measures at the 26%. Amniotic fluid MVP measures 5.1 cm. Recommendations ----- --------- Please see MFM documentation from today. anatomic survey is incomplete due to late gestational age andsuboptimal visualization. Subsequent follow up or other follow up as clinically determined byprimary OB provider unless otherwise specified by MFM. Results forwarded to ordering provider so they can follow up with thepatient as necessary. us Luis Angel Nguyen MD IMG US ORDERABLES Final Re sult documented in this encounter Visit Diagnoses Diagnosis History of sleeve gastrectomy Hx of supraventricular tachycardia Encounter for follow-up ultrasound of anatomy Encounter for anatomic survey documented in this encounter Additional Health Concerns Assessment Noted Time PHQ-9 Depression Total Score: 023 10:14 AM EDT documented as of this encounter Care Teams Inside Sales Territory Manager Relationship Specialty Start Date End Date Ally Craig, FORGING PRESS LEVER TENDER-PATIENT SAFETY ATTENDANT [address], [place] [address] PCP - General Family Medicine 04/12/18 documented as of this encounter
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
--- OUTSIDE RECORDS SUMMARY | 2024-11-09 09:50 | XMS_ITS | Encounter Summary ---
Author Organization [facility] Address [address] [facility] [place] [address] Care Team Providers Care Locks Inspector Name Role Phone Unavailable Primary Care Provider Unavailabl e Reason for Visit * Reason Comments Routine Visit Encounter Details Date Type Department Care Team (Late st Contact Info) Description 11/09/2024 9:50 AM EDT Routine [facility] BCP OB [address] [place] [phone] Zoraida Travis PA [address] [place] [address] 35 weeks gestation of ; Third trimester [...] Care Team (Late st Contact Info) Description 11/22/2024 9:50 AM EDT Routine [facility] BCP OB [address] [place] [address] Zoraida Travis PA [address] [place] [address] documented as of this encounter Procedures Procedure [...]
--- OUTSIDE RECORDS SUMMARY | 2024-11-14 13:50 | XMS_ITS | Encounter Summary ---
Author Organization [facility] Address [address] [place] [address] Care Team Providers Care Waiter/Waitress Counter Name Role Phone Unavailable Primary Care Provider Unavailabl e Reason for Visit * Reason Comments Routine Visit Encounter Details Date Type Department Care Team (Late st Contact Info) Description 11/14/2024 1:50 PM EDT Routine [facility] [address] [place] [id number] Cedric Warner, [address] [address] 35 weeks gestation of ; Third trimester [...] Sign Reading Time Taken Comments Blood Pressure 120/80 11/14/2024 2:07 PM EDT Pulse - - Temperature - - Respiratory Rate - - Oxygen Saturation - - Inhaled Oxygen Concentration - - Weight 123 kg (270 lb 6.4 oz) 11/14/2024 2:07 PM EDT Height - - Body Mass Index 45 11/24/2022 9:10 AM EDT documented in this encounter Plan of Treatment Upcoming Encounters Date Type Department Care Team (Late st Contact Info) Description 11/22/2024 9:50 AM EDT Routine [facility] [address] [place] [address] Zoraida Travis PA [address] [place] [address] Scheduled Orders Name Type Priority Associated Diagnoses Orde r Schedule CULTURE, GROUP B STREP WITH SUSCEPTIBLITY Lab Routine Third trimester Expected: 11/14/2024, Expires: 11/14/2025 documented as of this encounter Procedures Procedure Name Priority Date/Time Associated Diagnosis Comments POCT URINALYSIS DIPSTICK Routine 11/14/2024 2:12 PM EDT 35 weeks gestation of Third trimester documented in this encounter Results * (ABNORMAL) POCT urinalysis dipstick manually resulted (11/14/2024 2:12 PM EDT) Color, UA Yellow Clarity, UA Clear Glucose, UA Negative Negative - 1999(110) ++++ mg/dL Bilirubin, UA Negative Negative - 4(70) +++ mg/dL Ketones, UA Negative Negative - 160(16) ++++ mg/dL Spec Grav, UA 1.020 1 - 1.03 Blood, UA Negative Negative - 50 Miguel Angel/mcL pH, UA 6.5 5 - 9 Protein, UA Trace Negative - 2000(20) ++++ mg/dL Urobilinogen, UA 0.2 0.2 - 12 mg/dL Leukocytes, UA Negative Negative - 500+++ Eleonora/mcL Nitrite, UA Negative Negative - Positive Urine 11/14/2024 2:12 PM EDT Cedric Warner DO POINT OF CARE TEST ENTER/EDIT OR DERABLES Final Result documented in this encounter Visit Diagnoses Diagnosis 35 weeks gestation of Third trimester state, incidental documented in this encounter
--- OUTSIDE RECORDS SUMMARY | 2024-11-14 19:27 | XMS_ITS | Encounter Summary ---
Author Organization [facility] Address [address] [place] [address] Care Team Providers Care Bobbin Coil Winder Name Role Phone Unavailable Primary Care Provider Unavailabl e Encounter Details Date Type Department Care Team (Late st Contact Info) Description 08/17/2024 Orders Only [facility] [address] [facility] [place] [address] Elena Constantino MA [address] [facility] [place] [address] Social History Tobacco Use Types Packs/Day Years [...] Routine [facility] [address] [facility] [place] [address] Zoraida Travis PA [address] [facility] [address] [address] [place], [place] [id number] documented as of this encounter Procedures Procedure [...]
--- OUTSIDE RECORDS SUMMARY | 2024-11-14 19:27 | XMS_ITS | Encounter Summary ---
Author Organization [facility] Address [address] [place] [address] Care Team Providers Care Tunneller Name Role Phone Unavailable Primary Care Provider Unavailabl e Encounter Details Date Type Department Care Team (Late st Contact Info) Description 08/24/2024 Abstract [facility] [address] [facility] [place] [address] Cedric Warner DO [address] [facility] [address] Cheng Velasquez, [facility] Social History Tobacco Use Types Packs/Day Years [...] Routine [facility] [address] [facility] [place] [address] Zoraida Travis PA [address] [facility] [place] [address] documented as of this encounter Visit Diagnoses Not on filedocumented in this encounter
--- OUTSIDE RECORDS SUMMARY | 2024-11-14 19:27 | XMS_ITS | Encounter Summary ---
Author Organization [facility] Address [address] [place] [address] Care Team Providers Care Auricular Acupuncturist Name Role Phone Unavailable Primary Care Provider Unavailabl e Encounter Details Date Type Department Care Team (Late st Contact Info) Description 11/14/2024 Bamboo flowsheet [facility] [address] [facility] [place] [address] Cedric Warner, DO [address] [facility] [address] Cheng Velasquez, [facility] Social History Tobacco Use Types Packs/Day [...] AM EDT Routine [facility] [address] [facility] [place] [address] Zoraida Travis PA [address] [place], [place] [id number] documented as of this encounter Visit Diagnoses Not on filedocumented in this encounter
--- OUTSIDE RECORDS SUMMARY | 2024-11-14 19:27 | XMS_ITS | Encounter Summary ---
Author Organization [facility] Address [address] [place] [address] Care Team Providers Care Supervisor Inspecting Name Role Phone Unavailable Primary Care Provider Unavailabl e Encounter Details Date Type Department Care Team (Late st Contact Info) Description 11/10/2024 Clinisync Result Encounter [facility] External Department Unsolicited Arminda Warner DO [address] [facility] [address] Cheng Velasquez, [facility] Social History Tobacco Use Types Packs/Day [...] AM EDT Routine [facility] [address] [place] [address] Zoraida Travis PA [address] [facility] [address] [place], [place] [id number] documented as of this encounter Procedures Procedure Name Priority Date/Time Associated Diagnosis Comments US OB BPP W NON-STRESS 11/10/2024 3:48 PM EDT documented in this encounter Results * US OB BPP W NON-STRESS (11/10/2024 3:48 PM EDT) Anatomical Region Laterality Modality Other 11/10/2024 3:48 PM EDT Narrative 11/10/2024 3:50 [place] [address] Ultrasound Report Signed Patient: MADDIE RAMAN MR#: [id number] : 1995 Acct:[id number] Age/Sex: 29 / F ADM Date: 11/10/24 Loc: [facility] 252-[address]: Arminda Warner D.O. Ordering Physician: Arminda Warner D.O. Date of Service: 11/10/24 Procedure(s): US OB BPP w non-stress Accession Number(s): [id number] cc: Arminda Warner D.O.; Ally Craig NP [place] [address] Patient Name: MADDIE RAMAN MRN: [id number] date: 1995 Sex: F Assigned Patient Location: [facility] Current Patient Location: [facility] Accession/Order Number: [id number] Exam Date: 11/10/2024 15:47 Report Date: 11/10/2024 15:48 At the request of: ARMINDA WARNER DO Procedure: US OB BPP w non-stress Ultrasound biophysical profile HISTORY: History of gastric sleeve There is adequate breathing movement, gross body movement, tone and amniotic fluid volume for total score of 8 out of 8. Amniotic fluid index is 14.2 cm within normal limits. heart rate is 144 bpm. Possible nuchal cord identified. US/US OB BPP w non-stress IMPRESSION: Adequate biophysical profile. Possible nuchal cord. Impression dictated by: Anthony Diaz M.D. 11/10/2024 3:48 PM Dictation Location: [place] [address] Electronically authenticated by: [id number] Y Date: 11/10/2024 15:48 Dictated By: Anthony Diaz D.O. Signed By: 11/10/24 1550 DD/ 1548 TD/TT: Lumber Carrier: Procedure Note Radiology, Radiologist, - 11/10/2024 [place] [address] Ultrasound Report Signed Patient: MADDIE RAMAN CMR#: [id number] : 1995Acct:[id number] Age/Sex: 29 / FADM Date: 11/10/24 Loc: [facility] 252-[address]: Arminda Warner D.O. Ordering Physician: Arminda Warner D.O. Date of Service: 11/10/24 Procedure(s): US OB BPP w non-stress Accession Number(s): [id number] cc: Arminda Warner D.O.; Ally Craig NP [place] [address] Patient Name: MADDIE RAMAN MRN: [id number] date: 1995 Sex: F Assigned Patient Location: [facility] Current Patient Location: [facility] Accession/Order Number: [id number] Exam Date: 11/10/2024 15:47 Report Date: 11/10/2024 15:48 At the request of: ARMINDA WARNER DO Procedure: US OB BPP w non-stress Ultrasound biophysical profile HISTORY: History of gastric sleeve There is adequate breathing movement, gross body movement, fetaltone and amniotic fluid volume for total score of 8 out of 8. Amniotic fluidindex is 14.2 cm within normal limits. heart rate is 144 bpm. Possible nuchal cord identified. US/US OB BPP w non-stress IMPRESSION: Adequate biophysical profile. Possible nuchal cord. Impression dictated by: Anthony Diaz M.D. 11/10/2024 3:48 PM [facility] Electron[facility] authenticated by: [id number] Y Date: 5:48 Dictated By: Anthony Diaz D.O. Signed By:11/10/24 1550 DD/ 1548 TD/TT: Lumber Carrier: us Arminda Warner DO [facility] Final Result documented in this encounter Visit Diagnoses Not on filedocumented in this encounter
--- OUTSIDE RECORDS SUMMARY | 2024-11-14 19:28 | XMS_ITS | Encounter Summary ---
Author Organization [facility] Address [address] [place] [address] Care Team Providers Care Manager Of Compliance Name Role Phone Unavailable Primary Care Provider Unavailabl e Encounter Details Date Type Department Care Team (Late st Contact Info) Description 06/27/2024 Abstract [facility] OB [address] [facility] [place] [address] Felicita Wyatt LPN Social History Tobacco [...] Description 11/22/2024 9:50 AM EDT Routine [facility] [address] [facility] [place] [address] Zoraida Travis PA [address] [place] [address] Dr [place], [facility]11 documented as of this encounter Visit Diagnoses Not on filedocumented in this encounter
--- OUTSIDE RECORDS SUMMARY | 2024-11-14 19:28 | XMS_ITS | Clinical Summary ---
Author Organization [employer] tem Address [facility] [id number] [address] [place] [address] Care Team Providers Care Lan Manager Name Role Phone Ally Craig PIPE FINISHER-COMMUNITY HEALTH REPRESENTATIVE Primary Care Provi collin Allergies Active Allergy Reactions Criticality Noted Date Comments [place] Extract Anaphylaxis High 02/01/2019 Medications * This [...] (10/05/2017): Added automatically from request for surgery [id number] SVT (supraventricular tachycardia) 09/26/2017 10/01/2020 Encounters Date Type Department Care Team Description 11/06/2024 12:00 PM EDT Office Visit Maternal- Medicine at [facility] [address] [place] [address] Erlin Chung MD History of sleeve gastrectomy (Primary Dx) 11/06/2024 10:39 AM EDT - 11/06/2024 11:59 PM EDT Hospital Encounter [facility] US Imaging [address] [place] [address] History of sleeve gastrectomy; Hx of supraventricular tachycardia; Encounter for follow-up ultrasound of anatomy; Encounter for anatomic survey Discharge Disposition: Home 11/06/2024 Travel 10/20/2024 8:45 AM EDT Telemedicine Maternal- Medicine at [facility] [address] [place] [address] Erlin Chung MD History of sleeve gastrectomy (Primary Dx); Hx of supraventricular tachycardia 10/20/2024 Travel 10/05/2024 9:00 AM EDT Ancillary Procedure [facility] [address] [place] [address] Hx of supraventricular tachycardia 10/05/2024 8:30 AM EDT Office Visit [facility] [address] [place] [phone] Ole Rojas MD Hx of supraventricular tachycardia (Primary Dx) 10/05/2024 Travel 09/29/2024 Orders Only Maternal- Medicine at [facility] [address] [place] [address] Triny Morales RN History of sleeve gastrectomy (Primary Dx); Hx of supraventricular tachycardia; Encounter for follow-up ultrasound of anatomy; Encounter for anatomic survey 09/28/2024 2:22 PM EDT - 09/28/2024 11:59 PM EDT Hospital Encounter [facility] US Imaging [address] [place] [address] History of sleeve gastrectomy; Hx of supraventricular tachycardia; Encounter for follow-up ultrasound of anatomy Discharge Disposition: Home 09/28/2024 Travel 08/24/2024 9:00 AM EST Office Visit Maternal- Medicine at [facility] [address] [place] [address] Erlin Chung MD History of sleeve gastrectomy (Primary Dx); Hx of supraventricular tachycardia 08/24/2024 7:29 AM EST - 08/24/2024 11:59 PM EST Hospital Encounter [facility] - [facility] US Imaging [address] [place] [address] History of sleeve gastrectomy; Hx of supraventricular tachycardia; Encounter for anatomic survey Discharge Disposition: Home 08/24/2024 Orders Only Maternal- Medicine at [facility] [address] [place] [address] Zoraida Butcher LPN 08/24/2024 Orders Only Maternal- Medicine at [facility] [address] [place] [address] Cindy Walton, RN History of sleeve gastrectomy (Primary Dx); Hx of supraventricular tachycardia; Encounter for follow-up ultrasound of anatomy 08/24/2024 Travel from Last 3 Months Immunizations Immunization Administration [...] Author D/C Home General Yes Yaneth Bright, PIPE FINISHER-COMMUNITY HEALTH REPRESENTATIVE Note: Evaluation of progress towards goal: Pt plans to d/c home with self care and family support. Medical Devices Implanted Type Area Program Host Device Identifier Shelf Expiration Date Model / Serial / Lot Plate-01/22/2019 Implanted:01/22 (Quantity not on file) Plate Right: Hip Screw-01/22/2019 Implanted:01/22 (Quantity not on file) Screw Procedures Procedure Name Priority Date/Time Associated Diagnosis Comments US [facility] OB FOLLOW-UP, 1 FETUS Routine 11/06/2024 1:37 PM EDT History of sleeve gastrectomy Hx of supraventricular tachycardia Encounter for follow-up ultrasound of anatomy Encounter for anatomic survey WIRELESS TELEMETRY (IN OFFICE) Routine 10/05/2024 8:59 AM EDT Hx of supraventricular tachycardia POCT EKG Routine 10/05/2024 Hx of supraventricular tachycardia US [facility] OB FOLLOW-UP, 1 FETUS Routine 09/28/2024 4:34 PM EDT History of sleeve gastrectomy Hx of supraventricular tachycardia Encounter for follow-up ultrasound of anatomy US [facility] COMPREHENSIVE ANATOMIC SURVEY Routine 08/24/2024 9:48 AM EST History of sleeve gastrectomy Hx of supraventricular tachycardia Encounter for anatomic survey from Last 3 Months Results * US [facility] OB FOLLOW-UP, 1 FETUS (11/06/2024 1:37 PM EDT) Only the most recent of3 resultswithin the time period is included. Anatomical Region Laterality Modality OB-SOFTWARE DEVELOPMENT ENGINEER Ultrasound 11/06/2024 11:3 9 AM EDT Narrative 11/06/2024 3:01 PM EDT NAME: CECI PERKINS : 1995 SEX: F Accession Number: [id number] ORDERING PHYSICIAN: LUIS ANGEL NGUYEN REFERRING PHYSICIAN: ARMINDA WHITE Coding ----- --------- Procedures [id number]: Follow-up Ultrasound, per fetus Indication ----- --------- Obesity in , Previous , Previous bariatric surgery, Screening for follow-up survey History ----- --------- OB History 7. Para 1 [id number] Maternal Assessment ----- --------- Physical Exam Height [...] EFW (oz) 15 oz EFW by: Hadlock (RBU-FN-RA-FL) Extended Tibia 56.0 mm 32w 6d 26% Jody Yard Crane Operator 3.4 mm CM 9.1 mm 87% Nicolaides [...] Thorax RVOT view. LVOT view. 3-vessel view. 9-wglfgo-zsfaiia view. Situs. Aortic arch view. Bicaval view. [...] 5.1 cm. Recommendations ----- --------- Please see [facility] documentation from today. anatomic survey is incomplete due to late gestational age and suboptimal visualization. Subsequent follow up or other follow up as clinically determined by primary OB provider unless otherwise specified by [facility]. Results forwarded to ordering provider so they can follow up with the patient as necessary. Procedure Note Erlin Chung MD - 11/06/2024 NAME: CECI PERKINS : 1995 SEX: F Accession Number: [id number] ORDERING PHYSICIAN: LUIS ANGEL NGUYEN REFERRING PHYSICIAN: ARMINDA WHITE Coding ----- --------- Procedures [id number]: Follow-up Ultrasound, per fetus Indication ----- --------- Obesity in , Previous , Previous bariatric surgery,Screening for follow-up survey History ----- --------- OB History 7. Para 1 [id number] Maternal Assessment ----- --------- Physical Exam Height [...] EFW (oz) 15 oz EFW by: Hadlock (FIX-UP-GI-FL) Extended Tibia 56.0 mm 32w 6d 26% Jody Yard Crane Operator 3.4 mm CM 9.1 mm 87% Nicolaides [...] Thorax RVOT view. LVOT view. 3-vessel view. 3-vsuwtv-xvhyvmi view.Situs. Aortic arch view. Bicaval view. Interventricular [...] can follow up with thepatient as necessary. Luis Angel Nguyen MD IMG US ORDERABLES Final Re sult * Wireless Telemetry [...] GILES Final Result * POCT EKG (10/05/2024) Ole Rojas MD ECG ORDERABLES Edited Re sult - Final MANUALLY TRANSCRIBED RESULTS from Last 3 Months Insurance [facility] MEDICAID [place] [facility] PLAN MEDICAID Advance Directives * Full Code (Latest Code Status on File) Date Activated Date Inactivated Comments 11/10/2021 9:36 AM 11/11/2021 5:57 PM * Full Code Date Activated Date Inactivated Comments 04/24/2019 2:41 PM 04/27/2019 6:16 PM * Full Code Date Activated Date Inactivated Comments 09/26/2017 4:13 AM 10/03/2017 1:52 PM Care Teams Lan Manager Relationship Specialty Start Date End Date Ally Craig, PIPE FINISHER-COMMUNITY HEALTH REPRESENTATIVE [address], [place] [address] PCP - General Family Medicine 04/12/18
--- OUTSIDE RECORDS SUMMARY | 2024-11-14 19:28 | XMS_ITS | Encounter Summary ---
Author Organization [employer] tem Address [id number] [address] [place] [address] Care Team Providers Care Window Dresser Name Role Phone Ally Craig AOC OPERATIONS INTELLIGENCE CHIEF-MED ASST Primary Care Provi collin Encounter Details Date [...] Author D/C Home General Yes Yaneth Bright, AOC OPERATIONS INTELLIGENCE CHIEF-MED ASST Note: Evaluation of progress towards goal: Pt plans to d/c home with self care and family support. documented as of this encounter Visit Diagnoses Not on filedocumented in this encounter Additional Health Concerns Assessment Noted Time PHQ-9 Depression Total Score: 19 023 10:14 AM EDT documented as of this encounter Care Teams Window Dresser Relationship Specialty Start Date End Date Ally Craig, RAFA-MED ASST [address], [place] [address] PCP - General Family Medicine 04/12/18 documented as of this encounter
--- OUTSIDE RECORDS SUMMARY | 2024-11-14 19:28 | XMS_ITS | Encounter Summary ---
Author Organization [employer] tem Address [id number] [address] [place] [address] Care Team Providers Care Brimmer Blocker Name Role Phone Ally Craig APRN-FILLER SIFTER HELPER Primary Care Provi collin Reason for Visit * Reason Onset Date Comments Med Refill 04/30/2020 Encounter Details Date Type Department Care Team (Late st Contact Info) Description 04/30/2020 Telephone [facility] Family Medicine [address] [place] [address] [place] [address] Nataly Caballero CMA Med Refill [...] Author D/C Home General Yes Yaneth Bright, SUPERVISOR MELT HOUSE-FILLER SIFTER HELPER Note: Evaluation of progress towards goal: Pt [...] documented as of this encounter Care Teams Brimmer Blocker Relationship Specialty Start Date End Date Ally Craig, RAFA-FILLER SIFTER HELPER [address], [place] [address] PCP - General Family Medicine 04/12/18 documented as of this encounter
--- OUTSIDE RECORDS SUMMARY | 2024-11-14 19:28 | XMS_ITS | Encounter Summary ---
Author Organization [facility] Address [address] [place] [address] Care Team Providers Care Boat Puller Name Role Phone Unavailable Primary Care Provider Unavailabl e Encounter Details Date Type Department Care Team (Late st Contact Info) Description 06/06/2024 Abstract [facility] [address] [facility] [place] [address] Cedric Warner, DO [address] [facility] [address] Cheng Velasquez, [facility]11 Social History Tobacco Use Types Packs/Day [...] AM EDT Routine [facility] [address] [facility] [place] [address] Zoraida Travis PA [address] [facility] [place] [address] documented as of this encounter Visit Diagnoses Not on filedocumented in this encounter
--- OUTSIDE RECORDS SUMMARY | 2024-11-14 19:28 | XMS_ITS | Clinical Summary ---
Author Organization [facility] Address [address] [place] [address] Care Team Providers Care Fisher Hand Line Name Role Phone Ally Craig APRN - SUPERVISOR FEED MILL Primary Care Pro vider Allergies Active Allergy Reactions Criticality Noted Date Comments [place] Extract Anaphylaxis High 02/01/2019 Medications vitamin D (ERGOCALCIFEROL ) 55717 units CAPS capsule Take 1 capsule by [...] this topic Medical Devices Implanted Type Area Industrial Organization Manager Device Identifier Shelf Expiration Date Model / Serial / Lot Plate Recon 3.5mm Low Prof 6h Implanted:Qty : 1 on 02/08/2019 by Ernesto Levine DO at [facility] Screw/Pl ate/Nail /Blane Right: Acetabulum SYNTHES-PMM [id number] / / Screw Cortx Slftp Fthrd 3.5x32mm Implanted:Qty : 1 on 02/08/2019 by Ernesto Levine DO at [facility] Screw/Pl ate/Nail /Blane Right: Acetabulum SYNTHES-PMM [id number] / / Screw Cortx Slftp Fthrd 3.5x34mm Implanted:Qty : 1 on 02/08/2019 by Ernesto Levine DO at [facility] Screw/Pl ate/Nail /Blane Right: Acetabulum SYNTHES-PMM [id number] / / Screw Cortx Slftp Fthrd 3.5x40mm Implanted:Qty : 1 on 02/08/2019 by Ernesto Levine DO at [facility] Screw/Pl ate/Nail /Blane Right: Acetabulum SYNTHES-PMM [id number] / / Screw Cortx Fthrd Slftp Ss 3.5x80mm Implanted:Qty : 1 on 02/08/2019 by Ernesto Levine DO at [facility] Screw/Pl ate/Nail /Blane Right: Acetabulum SYNTHES-PMM [id number] / / Explanted Type Area Industrial Organization Manager Device Identifier Shelf Expiration Date Model / Serial / Lot Pin Explanted:Qty: 1 on 02/08/2019 at [facility] Description:thrown in sharps container Odanah Retentioner Explanted:Qty: 1 on 02/08/2019 at [facility] Description:recyled Insurance [facility] [place] [address] [address] [place] [address] [facility] GENERIC AUTO INSURANCE GENERIC AUTO INSURANCE [facility] [place] GENERIC AUTO INSURANCE [...] 4:31 AM 02/15/2019 1:50 PM Care Teams Fisher Hand Line Relationship Specialty Start Date End Date Ally Craig, BRICKLAYER SUPERVISOR - SUPERVISOR FEED MILL [address] [place] [address] PCP - General Nurse Practitioner 01/31/19
--- OUTSIDE RECORDS SUMMARY | 2024-11-14 19:28 | XMS_ITS | Encounter Summary ---
Author Organization [facility] [employer] tem Address [facility] [id number] [address] [place] [address] Care Team Providers Care Nitric Acid Plant Operator Name Role Phone Ally Craig LEAD SHAREPOINT DEVELOPER-PARENT TRAINER Primary Care Provi collin Encounter Details Date Type Department Care Team (Late st Contact Info) Description 03/29/2024 Telephone [facility] Surgery-Bariatric [address] [address] Lauren Arndt MD [address] [place] [address] Social History Tobacco Use Types [...] Author D/C Home General Yes Yaneth Bright APRN-PARENT TRAINER Note: Evaluation of progress towards goal: Pt plans to d/c home with self care and family support. documented as of this encounter Visit Diagnoses Not on filedocumented in this encounter Additional Health Concerns Assessment Noted Time PHQ-9 Depression Total Score: 19 023 10:14 AM EDT documented as of this encounter Care Teams Nitric Acid Plant Operator Relationship Specialty Start Date End Date Ally Craig, LEAD SHAREPOINT DEVELOPER-PARENT TRAINER [address], [place] [address] PCP - General Family Medicine 04/12/18 documented as of this encounter
--- OUTSIDE RECORDS SUMMARY | 2024-11-14 19:28 | XMS_ITS | Encounter Summary ---
Author Organization [facility] Address [address] [place] [address] Care Team Providers Care Basketballs And Footballs Reverser Name Role Phone Unavailable Primary Care Provider Unavailabl e Encounter Details Date Type Department Care Team (Late st Contact Info) Description 11/09/2024 Bamboo flowsheet [facility] OB [address] [facility] [place] [address] Zoraida Travis PA [address] [place] [address] Dr [place], [facility]11 Social History Tobacco Use Types Packs/Day [...] AM EDT Routine [facility] [address] [facility] [address] Zoraida Travis PA [address] [facility] [address] [place], [place] [address] documented as of this encounter Visit Diagnoses Not on filedocumented in this encounter
--- OUTSIDE RECORDS SUMMARY | 2024-11-14 19:28 | XMS_ITS | Encounter Summary ---
Author Organization [facility] tem Address [id number] [address] [place] [address] Care Team Providers Care Credit Risk Management Director Name Role Phone Ally Craig LABORER POLE CREW-FILE MACHINE OPERATOR Primary Care Provi collin Encounter Details Date Type Department Care Team (Late st Contact Info) Description 08/24/2024 Orders Only Maternal- Medicine at [facility] [address] [place] [address] Zoraida Butcher LPN Social History Tobacco Use [...] Author D/C Home General Yes Yaneth Bright APRN-FILE MACHINE OPERATOR Note: Evaluation of progress towards goal: Pt plans to d/c home with self care and family support. documented as of this encounter Visit Diagnoses Not on filedocumented in this encounter Additional Health Concerns Assessment Noted Time PHQ-9 Depression Total Score: 19 023 10:14 AM EDT documented as of this encounter Care Teams Credit Risk Management Director Relationship Specialty Start Date End Date Ally Craig, RAFA-FILE MACHINE OPERATOR [address], [place] [address] PCP - General Family Medicine 04/12/18 documented as of this encounter
--- OUTSIDE RECORDS SUMMARY | 2024-11-14 19:28 | XMS_ITS | Encounter Summary ---
Author Organization [employer] tem Address [id number] [address] [place] [address] Care Team Providers Care Customer Supply Chain Analyst Name Role Phone Ally Craig REGIONAL ENGAGEMENT CONSULTANT-ASSET PROTECTION SPECIALIST Primary Care Provi collin Reason for Referral * Diagnostic Imaging (Routine) - Pending Review Specialty Diagnoses / Procedures Referred By Violeta dalal Referred To Contact Maternal and Medicine Diagnoses History of sleeve gastrectomy Hx of supraventricular tachycardia Encounter for anatomic survey Procedures US [facility] with or without consult Cedric Warner DO [address] [place] [address] [place] [address] Phone: tel: fax: Maternal- Medicine at [facility] [address] [place] [address] Phone: tel: fax: Referral ID Status Reason Start Date Expiration Date V isits Requested Visits Authorized [id number] Pending Review 08/11/2024 08/11/2025 1 1 Encounter Details Date Type Department Care Team (Late st Contact Info) Description 08/11/2024 Orders Only Maternal- Medicine at [facility] [address] [place] [address] CMA History of [...] Author D/C Home General Yes Yaneth Bright, REGIONAL ENGAGEMENT CONSULTANT-ASSET PROTECTION SPECIALIST Note: Evaluation of progress towards goal: Pt plans to d/c home with self care and family support. documented as of this encounter Results * [facility] COMPREHENSIVE ANATOMIC SURVEY (08/24/2024 9:48 AM EST) Anatomical Region Laterality Modality OB-DIRECTOR SEARCH MARKETING STRATEGIES Ultrasound 08/24/2024 7:49 AM EST Narrative 08/24/2024 12:47 PM EST NAME: CECI PERKINS : 1995 SEX: F Accession Number: [id number] ORDERING PHYSICIAN: CEDRIC WARNER REFERRING PHYSICIAN: CEDRIC WARNER Coding ----- --------- Procedures [id number]: Ultrasound, uterus, real time with image documentation, and maternal evaluation plus detailed anatomic examination, transabdominal approach;single or first gestation 24843: Transvaginal Ultrasound (OB) Indication ----- --------- Obesity in , Placenta previa, Screening for Anatomic Survey, Screening for cervical length History ----- --------- OB History 7. Para 1 [id number] Maternal Assessment ----- --------- Physical Exam Height [...] 1 lb 7 oz EFW by Hadlock (GVN-FT-VD-FL) Head / Face / Neck Biometry: Cephalic index 0.69 <1% Nicolaides Superintendent Stevedoring 4.2 mm CM 6.6 mm 70% Nicolaides [...] Maxilla. Mandible. Heart / Thorax LVOT view. 3-rihhwa-mnlswkk view. Aortic arch view. Bicaval view. Ductal [...] 4.8 cm. Recommendations ----- --------- Please see [facility] documentation from today. The patient is scheduled in four to six week(s) to complete anatomic survey. Subsequent follow up or other follow up as clinically determined by primary OB provider unless otherwise specified by [facility]. Results forwarded to ordering provider so they can follow up with the patient as necessary. Procedure Note Erlin Chung MD - 08/24/2024 NAME: CECI PERKINS : 1995 SEX: F Accession Number: [id number] ORDERING PHYSICIAN: CEDRIC WARNER REFERRING PHYSICIAN: CEDRIC WARNER Coding ----- --------- Procedures [id number]: Ultrasound, uterus, real time with imagedocumentation, and maternal evaluation plus detailed anatomic examination, transabdominalapproach;single or first gestation 38690: Transvaginal Ultrasound (OB) Indication ----- --------- Obesity in , Placenta previa, Screening for Anatomic Survey,Screening for cervical length History ----- --------- OB History 7. Para 1 [id number] Maternal Assessment ----- --------- Physical Exam Height [...] 1 lb 7 oz EFW by Hadlock (EOX-AC-VS-FL) Head / Face / Neck Biometry: Cephalic index 0.69 <1% Nicolaides Superintendent Stevedoring 4.2 mm CM 6.6 mm 70% Nicolaides [...] Maxilla. Mandible. Heart / Thorax LVOT view. 5-ntxcwf-qprzink view. Aortic arch view. Bicavalview. Ductal arch [...] as necessary. us Cedric R Alana DO [facility] US ORDERABLES Final Result documented in this encounter Visit Diagnoses Diagnosis History of sleeve gastrectomy- Primary Hx of supraventricular tachycardia Encounter for anatomic survey History of sleeve gastrectomy Hx of supraventricular tachycardia Encounter for anatomic survey documented in this encounter Additional Health Concerns Assessment Noted Time PHQ-9 Depression Total Score: 19 023 10:14 AM EDT documented as of this encounter Care Teams Customer Supply Chain Analyst Relationship Specialty Start Date End Date Ally Craig APRN-ASSET PROTECTION SPECIALIST [address], [place] [address] PCP - General Family Medicine 04/12/18 documented as of this encounter
--- OUTSIDE RECORDS SUMMARY | 2024-11-14 19:28 | XMS_ITS | Encounter Summary ---
Author Organization [facility] tem Address [facility] [id number] [address] [place] [address] Care Team Providers Care Brush Loader And Handle Attacher Name Role Phone Ally Craig HYDRAULIC REPAIRER-AIRCRAFT ACCESSORIES MECHANIC Primary Care Provi collin Encounter Details Date Type Department Care Team (Late st Contact Info) Description 03/27/2021 Telephone [facility] Physicians Family Medicine [address] [place] [address] [place] [address] Ally Craig, HYDRAULIC REPAIRER-AIRCRAFT ACCESSORIES MECHANIC [address] [facility] [address], [place] [address] Social History Tobacco Use Types [...] documented as of this encounter Care Teams Brush Loader And Handle Attacher Relationship Specialty Start Date End Date Ally Craig APRN-CNP [address], [place] [address] PCP - General Family Medicine 04/12/18 documented as of this encounter
--- OUTSIDE RECORDS SUMMARY | 2024-11-14 19:28 | XMS_ITS | Encounter Summary ---
Author Organization [facility] Address [address] [place] [address] Care Team Providers Care Benzene Washer Operator Name Role Phone Unavailable Primary Care Provider Unavailabl e Encounter Details Date Type Department Care Team (Late st Contact Info) Description 11/08/2024 Abstract [facility] [address] [facility] [place] [address] Cedric Warner DO [address] [facility] [address] Cheng Velasquez, [facility] Social History Tobacco Use Types [...] AM EDT Routine [facility] [address] [facility] [place] [address] Zoraida Travis PA [address] [facility] [place] [address] documented as of this encounter Visit Diagnoses Not on filedocumented in this encounter
--- OUTSIDE RECORDS SUMMARY | 2024-11-14 19:28 | XMS_ITS | Encounter Summary ---
Author Organization [employer] tem Address [facility] [place]-[id number] [address] [place] [address] Care Team Providers Care Zigzag Machine Operator Name Role Phone KiaraAlly stevenson SUPERVISOR PAPER TESTING-OIL EXPERT Primary Care Provi collin Reason for Visit * Reason Onset Date Comments Med Refill 11/20/2021 Encounter Details Date Type Department Care Team (Late st Contact Info) Description 11/20/2021 Refill [facility] General Surgery-Bariatric [address] [facility] [address] [place] [address] Evelyn Flower CMA Social History [...] Author D/C Home General Yes Yaneth Bright APRN-OIL EXPERT Note: Evaluation of progress towards goal: Pt plans to d/c home with self care and family support. documented as of this encounter Visit Diagnoses Not on filedocumented in this encounter Additional Health Concerns Assessment Noted Time PHQ-9 Depression Total Score: 0 04/01/20 21 11:14 AM EDT documented as of this encounter Care Teams Zigzag Machine Operator Relationship Specialty Start Date End Date Ally Craig, SUPERVISOR PAPER TESTING-OIL EXPERT [address], [place] [address] PCP - General Family Medicine 04/12/18 documented as of this encounter
--- OUTSIDE RECORDS SUMMARY | 2024-11-14 19:28 | XMS_ITS | Patient Health Record ---
Author Organization [facility] Address [address] [place] [address] Care Team Providers Care Line Controller Name Role Phone Pascale Mcmahon Unavailable [phone] Reason For Referral No Information Plan Of Treatment No Information Insurance Providers Payer Name Payer Address Payer Phone Subscriber Number Group Number Insured Name Patient Relationship to Insured Coverage Start Date Coverage End Date Medicaid [employer] [place] [address] [place] [address] [phone] [id number] MADDIE ORNELAS Self - patient is the insured
--- OUTSIDE RECORDS SUMMARY | 2024-11-14 19:28 | XMS_ITS | Encounter Summary ---
Author Organization [facility] tem Address [facility]-[id number] [address] [place] [address] Care Team Providers Care Cdl Truck Driver Name Role Phone KiaraAlly stevenson EMBEDDED SOFTWARE DESIGN ENGINEER-STATION ENGINEER MAIN LINE Primary Care Provi collin Encounter Details Date Type Department Care Team (Late st Contact Info) Description 11/06/2020 [facility] [address] [place] [address] [place] [address] Yong Veliz CMA Social History [...] documented as of this encounter Care Teams Cdl Truck Driver Relationship Specialty Start Date End Date Ally Craig APRN-CNP [address], [place] [address] PCP - General Family Medicine 04/12/18 documented as of this encounter
--- OUTSIDE RECORDS SUMMARY | 2024-11-14 19:28 | XMS_ITS | Encounter Summary ---
Author Organization [facility] Address [address] [place] [address] Care Team Providers Care Fire Extinguisher Repairer Inspector Name Role Phone Unavailable Primary Care Provider Unavailabl e Reason for Visit * Reason Onset Date Comments Med Refill 11/02/2024 Encounter Details Date Type Department Care Team (Late st Contact Info) Description 11/02/2024 Refill [facility] [address] [facility] [place] [address] Zoraida Travis PA [address] [place] [address] Dr [place], [place] [address] H/O gastric sleeve Social History Tobacco Use [...] AM EDT Routine [facility] [address] [facility] [place] [address] Zoraida Travis PA [address] [place] [address] [place] [address] documented as of this encounter Visit Diagnoses Diagnosis H/O gastric sleeve documented in this encounter
--- OUTSIDE RECORDS SUMMARY | 2024-11-14 19:28 | XMS_ITS | Encounter Summary ---
Author Organization [facility] Address [address] [place] [address] Care Team Providers Care City Clerk Name Role Phone Unavailable Primary Care Provider Unavailabl e Encounter Details Date Type Department Care Team (Late st Contact Info) Description 11/03/2024 Clinisync Result Encounter [facility] External Department Unsolicited Arminda Warner DO [address] [facility] [address] Cheng Velasquez, [facility]11 Social History Tobacco Use Types [...] EDT Routine [facility] BCP OB [address] [facility] [address] Zoraida Travis PA [address] [facility] [address] [place], [place] [id number] documented as of this encounter Procedures Procedure Name Priority Date/Time Associated Diagnosis Comments US OB BPP W NON-STRESS 11/03/2024 4:13 PM EDT documented in this encounter Results * US OB BPP W NON-STRESS (11/03/2024 4:13 PM EDT) Anatomical Region Laterality Modality Other 11/03/2024 4:13 PM EDT Narrative 11/03/2024 4:16 PM EDT [address] [address] Ultrasound Report Signed Patient: MADDIE RAMAN MR#: [id number] : 1995 Acct:[id number] Age/Sex: 29 / F ADM Date: 11/03/24 Loc: US Attending Dr: Arminda Warner D.O. Ordering Physician: Arminda Warner D.O. Date of Service: 11/03/24 Procedure(s): US OB BPP w non-stress Accession Number(s): [id number] cc: Arminda Warner D.O.; Ally Craig NP [place] [address] Patient Name: MADDIE RAMAN MRN: [id number] date: 1995 Sex: F Assigned Patient Location: [facility] Current Patient Location: Accession/Order Number: [id number] Exam Date: 11/03/2024 16:12 Report Date: 11/03/2024 [...] 11/03/2024 4:13 PM Dictation Location: [place] [address] Electronically authenticated by: [id number] Y Date: 11/03/2024 16:13 Dictated By: Cristo Bland M.D. Signed By: 11/03/241615 DD/ 12 TD/TT: Specialty Sales Representative: Procedure Note Radiology, Radiologist, - 11/03/2024 [place] [address] Ultrasound Report Signed Patient: MADDIE RAMAN CMR#: [id number] : 1995Acct:[id number] Age/Sex: 29 FADM Date: 11/03/24 Loc: US Attending Dr: Arminda Warner D.O. Ordering Physician: Arminda Warner D.O. Date of Service: 11/03/24 Procedure(s): US OB BPP w non-stress Accession Number(s): [id number] cc: Arminda Warner D.O.; Ally Craig NP The [place] [address] Patient Name: MADDIE RAMAN MRN: [facility]:[id number] date: 1995 Sex: F Assigned Patient Location: [facility] Current Patient Location: Accession/Order Number: [id number] Exam Date: 11/03/2024 16:12 Report Date: 11/03/2024 [...] Bland M.D. 11/03/2024 4:13 PM Dictation Location: [employer] Electronically authenticated by: [id number] Y Date: 6:13 Dictated By: Cristo Bland M.D. Signed By:11/03/24 1616 DD/ 1613 TD/TT: Specialty Sales Representative: us Arminda Edmondo DO [facility] Final Result documented in this encounter Visit Diagnoses Not on filedocumented in this encounter
--- OUTSIDE RECORDS SUMMARY | 2024-11-14 19:28 | XMS_ITS | Encounter Summary ---
Author Organization [employer] tem Address [id number] [address] [place] [address] Care Team Providers Care Refining Machine Operator Name Role Phone Ally Craig DIRECTOR GEOTHERMAL OPERATIONS-SHAREPOINT ANALYST Primary Care Provi collin Encounter Details Date Type Department Care Team (Late st Contact Info) Description 07/23/2022 [facility]phone [facility] [address] [place] [address] [place] [address] Gi Motley CMA Social History [...] D/C Home General Yes Yaneth Bright, DIRECTOR GEOTHERMAL OPERATIONS-SHAREPOINT ANALYST Note: Evaluation of progress towards goal: Pt plans to d/c home with self care and family support. documented as of this encounter Visit Diagnoses Not on filedocumented in this encounter Additional Health Concerns Assessment Noted Time PHQ-9 Depression Total Score: 0 04/01/20 21 11:14 AM EDT documented as of this encounter Care Teams Refining Machine Operator Relationship Specialty Start Date End Date Ally Craig, DIRECTOR GEOTHERMAL OPERATIONS-SHAREPOINT ANALYST [address], [place] [address] PCP - General Family Medicine 04/12/18 documented as of this encounter
--- OUTSIDE RECORDS SUMMARY | 2024-11-14 19:28 | XMS_ITS | Clinical Summary ---
Author Organization [facility] Address [address] [place] [address] Care Team Providers Care Relocation Counselor Name Role Phone Unavailable Primary Care Provider [...] Encounters Date Type Department Care Team Description 11/14/2024 1:50 PM EDT Routine [facility] BCP OB [address] [place] [address] Arminda Warner DO 35 weeks gestation of ; Third trimester 11/14/2024 Bamboo flowsheet [facility] OB [address] [place] [address] Arminda Warner DO 11/10/2024 Clinisync Result Encounter NOMS External Department Unsolicited Arminda Warner, DO 11/09/2024 9:50 AM EDT Routine [facility] BCP OB [address] [place] [address] [place] [address] Zoraida Travis, PA 35 weeks gestation of ; Third trimester 11/09/2024 Bamboo flowsheet [facility] BCP OB [address] [facility] [place] [address] Zoraida Travis PA 11/08/2024 Abstract [facility] BCP OB [address] [facility] [place] [address] Arminda Warner, DO 11/03/2024 Clinisync Result Encounter NOMS External Department Unsolicited Arminda Warner, DO 11/03/2024 Telephone [facility] OB [address] [place] [address] [place] [address] Celsa Coats MA 11/02/2024 Refill [facility] OB [address] [facility] [place] [address] Zoraida Travis, PA H/O gastric sleeve 10/30/2024 Clinisync Result Encounter NOMS External Department Unsolicited Arminda Warner, DO 10/25/2024 2:20 PM EDT Routine [facility] BCP OB [address] [place] [address] [place] [address] Arminda Warner, DO Third trimester ; 32 weeks gestation of ; H/O gastric sleeve 10/25/2024 Bamboo flowsheet [facility] BCP OB [address] [facility] [address] Arminda Warner, DO 10/11/2024 9:40 AM EDT Routine [facility] BCP OB [address] [facility] [place] [address] Frances Pena NP Third trimester ; 30 weeks gestation of 10/11/2024 Bamboo flowsheet [facility] BCP OB [address] [facility] [place] [address] Frances Pena NP 09/26/2024 9:50 AM EDT Routine NOM[facility] [address] [place] [address] Arminda Warner, DO Third trimester ; 28 weeks gestation of 09/26/2024 Bamboo flowsheet NOM[facility] [address] [place] [address] Arminda Warner, 09/22/2024 Abstract [facility] OB [address] [place] [address] [place] [address] Arminda Warner, 09/09/2024 Clinisync Result Encounter NOMS External Department Unsolicited Zoraida Travis PA 08/29/2024 8:30 AM EDT Routine [facility] OB [address] [place] [address] [place] [address] Zoraida Travis PA 25 weeks gestation of ; Second trimester ; Diabetes mellitus screening 08/29/2024 Bamboo flowsheet [facility] OB [address] [place] [address] [place] [address] Zoraida Travis PA 08/24/2024 Abstract [facility] OB [address] [place] [address] [place] [address] Arminda Warner, 08/17/2024 Orders Only [facility] OB [address] [place] [address] [place] [address] Elena Constantino MA from Last 3 Months [...] 6.4 oz) 11/14/2024 2:07 PM EDT Height 165.1 cm (5' 5 ) 11/24/2022 9:10 AM EDT Body Mass Index 45 11/24/2022 9:10 AM EDT Plan of Treatment Upcoming Encounters Date Type Department Care Team (Late st Contact Info) Description 11/22/2024 9:50 AM EDT Routine [facility] BCP OB [address] [facility] [place] [address] Zoraida Travis PA [address] [facility] [place] [address] Health Maintenance Due Date Last Done Comments Influenza Vaccine (Season Ended) 2025 Procedures Procedure Name Priority Date/Time Associated Diagnosis Comments POCT URINALYSIS DIPSTICK Routine 11/14/2024 2:12 PM EDT 35 weeks gestation of Third trimester US OB BPP W NON-STRESS 11/10/2024 3:48 PM EDT POCT URINALYSIS DIPSTICK Routine 11/09/2024 10:11 AM [...] dipstick manually resulted (11/14/2024 2:12 PM EDT) Only the most recent of6 resultswithin the time period is included. Color, [...] - Positive Urine 11/14/2024 2:12 PM EDT us Arminda Warner DO POINT OF CARE TEST ENTER/EDIT OR DERABLES Final Result * US OB BPP W NON-STRESS (11/10/2024 3:48 PM EDT) Only the most recent of3 resultswithin the time period is included. Anatomical Region Laterality Modality Other 11/10/2024 3:48 PM EDT Narrative 11/10/2024 3:50 PM EDT [address] [address] Ultrasound Report Signed Patient: MADDIE RAMAN MR#: [id number] : 1995 Acct:[id number] Age/Sex: 29 / F ADM Date: 11/10/24 Loc: [facility] 252-[address]: Arminda Warner D.O. Ordering Physician: Arminda Warner D.O. Date of Service: 11/10/24 Procedure(s): US OB BPP w non-stress Accession Number(s): [id number] cc: Arminda Warner D.O.; Ally Craig NP [place] [address] Patient Name: MADDIE RAMAN MRN: [id number] date: 1995 Sex: F Assigned Patient Location: [facility] Current Patient Location: [facility] Accession/Order Number: [id number] Exam Date: 11/10/2024 15:47 Report Date: 11/10/2024 [...] Diaz M.D. 11/10/2024 3:48 PM Dictation Location: [place] [address] Electronically authenticated by: [id number] Y Date: 11/10/2024 15:48 Dictated By: Anthony Diaz D.O. Signed By: 11/10/24 1556 DD/ 1548 TD/TT: Imager: Procedure Note Radiology, Radiologist, - 11/10/2024 [place] [address] Ultrasound Report Signed Patient: MADDIE RAMAN CMR#: [id number] : 1995Acct:[id number] Age/Sex: 29 / FADM Date: 11/10/24 Loc: [facility] 252-[address]: Arminda Warner D.O. Ordering Physician: Arminda Warner D.O. Date of Service: 11/10/24 Procedure(s): US OB BPP w non-stress Accession Number(s): [id number] cc: Arminda Warner D.O.; Ally Craig NP The [place] [address] Patient Name: MADDIE RAMAN MRN: [id number] date: 1995 Sex: F Assigned Patient Location: [facility] Current Patient Location: [facility] Accession/Order Number: [id number] Exam Date: 11/10/2024 15:47 Report Date: 11/10/2024 [...] Diaz M.D. 11/10/2024 3:48 PM Dictation [facility] Electronically authenticated by: [id number] Y Date: 5:48 Dictated By: Anthony Diaz D.O. Signed By:11/10/24 1557 DD/ 1548 TD/TT: Imager: us Arminda Warner DO [facility] Final Result * GLUCOSE 1 HOUR (09/09/2024 10:12 AM EDT) GLUCOSE 1 HOUR 98 <130 mg/dL TB 09/09/2024 10:1 2 AM EDT 09/09/2024 10:13 AM EDT Narrative VERNELL - 09/09/2024 10:27 AM EDT Zoraida SEGOVIA LAB BLOOD ORDERABLES [facility] * (ABNORMAL) ALL CBC WITH AUTO DIFF (09/09/2024 10:12 AM EDT) TB WBC 7.1 4.0 - 11.0 10 [...] - 09/09/2024 10:28 AM EDT us Zoraida SEGOVIA CLINJ[facility] Final Result [facility] TB * US OB 14+ weeks anatomy scan (08/24/2024 12:47 PM EST) Anatomical Region Laterality Modality Body Ultrasound 08/24/2024 12:4 7 PM EST Narrative 08/24/2024 12:47 PM EST THIS EXAM WAS PERFORMED AT [facility] NAME: CECI PERKINS : 1995 SEX: F Accession Number: [id number] ORDERING PHYSICIAN: ARMINDA WARNER REFERRING PHYSICIAN: ARMINDA WARNER Coding ----- --------- Procedures 35877: Ultrasound, uterus, real time with image documentation, and maternal evaluation plus detailed anatomic examination, transabdominal approach;single or first gestation 23904: Transvaginal Ultrasound (OB) Indication ----- --------- Obesity in , Placenta previa, Screening for Anatomic Survey, Screening for cervical length History ----- --------- OB History 7. Para 1 [id number] Maternal Assessment ----- --------- Physical Exam Height [...] 1 lb 7 oz EFW by Hadlock ([id number]) Head / Face / Neck Biometry: Cephalic index 0.69 <1% [place] Train Dispatcher 4.2 mm CM 6.6 mm 70% Nicolaides [...] Maxilla. Mandible. Heart / Thorax LVOT view. 6-btrdro-kozctbo view. Aortic arch view. Bicaval view. Ductal [...] 4.8 cm. Recommendations ----- --------- Please see [facility] documentation from today. The patient is scheduled in four to six week(s) to complete anatomic survey. Subsequent follow up or other follow up as clinically determined by primary OB provider unless otherwise specified by [facility]. Results forwarded to ordering provider so they can follow up with the patient as necessary. Procedure Note Radiology, Radiologist, - 08/24/2024 THIS EXAM WAS PERFORMED AT [facility] NAME: CECI PERKINS : 1995 SEX: F Accession Number: [id number] ORDERING PHYSICIAN: ARMINDA WARNER REFERRING PHYSICIAN: ARMINDA WARNER Coding ----- --------- Procedures 69068: Ultrasound, uterus, real time with imagedocumentation, and maternal evaluation plus detailed anatomic examination, transabdominalapproach;single or first gestation 50024: Transvaginal Ultrasound (OB) Indication ----- --------- Obesity in , Placenta previa, Screening for Anatomic Survey,Screening for cervical length History ----- --------- OB History 7. Para 1 [id number] Maternal Assessment ----- --------- Physical Exam Height [...] 1 lb 7 oz EFW by Hadlock ([id number]) Head / Face / Neck Biometry: Cephalic index 0.69 <1% Nicola[place] Train Dispatcher 4.2 mm CM 6.6 mm 70% Nicolaides [...] Maxilla. Mandible. Heart / Thorax LVOT view. 1-klcrld-xywvpst view. Aortic arch view. Bicavalview. Ductal arch [...] 4.8 cm. Recommendations ----- --------- Please see [facility] documentation from today. The patient is scheduled in four to six week(s) to complete anatomicsurvey. Subsequent follow up or other follow up as clinically determined byprimary OB provider unless otherwise specified by M. Results forwarded to ordering provider so they can follow up with thepatient as necessary. us Arminda Alana DO IMG OB US PROCEDURES Final Resul t from Last [address] [place] [address] [place] [address] [employer] MEDICAID
--- OUTSIDE RECORDS SUMMARY | 2024-11-14 19:28 | XMS_ITS | Encounter Summary ---
Author Organization [facility] Address [address] [place] [address] Care Team Providers Care Quality Assurance Assessor Name Role Phone Unavailable Primary Care Provider Unavailabl e Encounter Details Date Type Department Care Team (Late st Contact Info) Description 07/31/2024 Abstract [facility] BCP OB [address] [facility] [place] [address] Cedric Warner DO [address] [facility] [address] Cheng Velasquez, [facility] Social History Tobacco Use Types Packs/Day [...] [facility] BCP OB [address] [facility] [place] [address] Zoraida Travis PA [address] [facility] [place] [address] documented as of this encounter Visit Diagnoses Not on filedocumented in this encounter
--- OUTSIDE RECORDS SUMMARY | 2024-11-14 19:28 | XMS_ITS | Encounter Summary ---
Author Organization [facility] Address [facility] [address] [place] [address] Care Team Providers Care Medical Concierge Name Role Phone KiaraAlly stevenson PIPE INSTALLER-DUTY OFFICER Primary Care Provi collin Encounter Details Date Type Department Care Team (Late st Contact Info) Description 10/09/2020 [facility] [address] [place] [address] [place] [address] Yong Veliz CMA Social History [...] D/C Home General Yes Yaneth Bright, PIPE INSTALLER-DUTY OFFICER Note: Evaluation of progress towards goal: Pt [...] documented as of this encounter Care Teams Medical Concierge Relationship Specialty Start Date End Date Ally Craig, PIPE INSTALLER-DUTY OFFICER [address], [place] [address] PCP - General Family Medicine 04/12/18 documented as of this encounter
--- OUTSIDE RECORDS SUMMARY | 2024-11-14 19:28 | XMS_ITS | Encounter Summary ---
Author Organization [facility] Address [address] [place] [address] Care Team Providers Care Mission Systems Engineer Name Role Phone Unavailable Primary Care Provider Unavailabl e Encounter Details Date Type Department Care Team (Late st Contact Info) Description 09/22/2024 Abstract [facility] BCP OB [address] [facility] [place] [address] Cedric Warner DO [address] [facility] [address] Cheng Velasquez, [facility]11 Social History Tobacco Use Types Packs/Day [...] AM EDT Routine [facility] BCP OB [address] [facility] [place] [address] Zoraida Travis PA [address] [facility] [place] [address] documented as of this encounter Visit Diagnoses Not on filedocumented in this encounter
--- OUTSIDE RECORDS SUMMARY | 2024-11-14 19:28 | XMS_ITS | Encounter Summary ---
Author Organization [email or web address] [facility] tem Address [facility] [address] [place] [address] Care Team Providers Care Oral Surgery Physician Name Role Phone Ally Craig APRN-NETWORK SPECIALIST Primary Care Provi collin Encounter Details Date Type Department Care Team (Late st Contact Info) Description 08/20/2021 Telephone [facility] [address] [place] [address] [place] [address] Leslie Deal CMA Social History [...] Author D/C Home General Yes Yaneth Bright, RAFA-NETWORK SPECIALIST Note: Evaluation of progress towards goal: Pt plans to d/c home with self care and family support. documented as of this encounter Visit Diagnoses Not on filedocumented in this encounter Additional Health Concerns Assessment Noted Time PHQ-9 Depression Total Score: 0 04/01/20 21 11:14 AM EDT documented as of this encounter Care Teams Oral Surgery Physician Relationship Specialty Start Date End Date Ally Craig APRN-NETWORK SPECIALIST [address], [place] [address] PCP - General Family Medicine 04/12/18 documented as of this encounter
--- OUTSIDE RECORDS SUMMARY | 2024-11-14 19:28 | XMS_ITS | Encounter Summary ---
Author Organization [facility] Address [address] [place] [address] Care Team Providers Care Still Operator Brandy Name Role Phone Unavailable Primary Care Provider Unavailabl e Encounter Details Date Type Department Care Team (Late st Contact Info) Description 06/15/2024 Abstract [facility] BCP OB [address] [facility] [place] [address] Cedric Warner DO [address] [facility] [address] Cheng Velasquez, [facility]11 Social History Tobacco Use Types Packs/Day [...] AM EDT Routine [facility] BCP OB [address] [facility] [place] [address] Zoraida Travis PA [address] [place] [address] documented as of this encounter Visit Diagnoses Not on filedocumented in this encounter
--- OUTSIDE RECORDS SUMMARY | 2024-11-14 19:28 | XMS_ITS | Encounter Summary ---
Author Organization [facility] Address [address] [place] [address] Care Team Providers Care Resident Services Director Name Role Phone Unavailable Primary Care Provider Unavailabl e Encounter Details Date Type Department Care Team (Late st Contact Info) Description 05/13/2024 Clinisync Result Encounter [facility] External Department Unsolicited Arminda Warner, DO [address] [facility] [address] [place], [place] [id number] Social History Tobacco Use Types Packs/Day Years [...] Routine [facility] BCP OB [address] [place] [phone] Zoraida Travis PA [address] [place] [place] [address] documented as of this encounter Procedures Procedure Name Priority Date/Time Associated Diagnosis Comments US OB TRANSVAGINAL 05/13/2024 8: 59 AM EST documented in this encounter Results * US OB TRANSVAGINAL (05/13/2024 8:59 AM EST) Anatomical Region Laterality Modality Other 05/13/2024 8:59 AM EST Narrative 05/13/2024 9:02 [place] [address] Ultrasound Report Signed Patient: MADDIE RAMAN MR#: [id number] : 1995 Acct:[id number] Age/Sex: 28 / F ADM Date: 05/13/24 Loc: US Attending Dr: Arminda Warner D.O. Ordering Physician: Arminda Warner D.O. Date of Service: 05/13/24 Procedure(s): US OB transvaginal Accession Number(s): [id number] cc: Arminda Warner D.O.; Ally Craig NP [place] [address] Patient Name: MADDIE RAMAN MRN: [id number] date: 1995 Sex: F Assigned Patient Location: US Current Patient Location: US Accession/Order Number: [id number] Exam Date: 05/13/2024 08:04 Report Date: 05/13/2024 [...] Dictated By: Arcadio Nevarez M.D. Signed By: 05/13/24 0902 DD/ 0859 TD/TT: Power Plant Assistant: Procedure Note Radiology, Radiologist, MD - 05/13/2024 [place] [address] Ultrasound Report Signed Patient: MADDIE RAMAN CMR#: [id number] : 1995Acct:[id number] Age/Sex: 28 / FADM Date: 05/13/24 Loc: US Attending Dr: Arminda Warner D.O. Ordering Physician: Arminda Warner D.O. Date of Service: 05/13/24 Procedure(s): US OB transvaginal Accession Number(s): [id number] cc: Arminda Warner D.O.; Ally Craig NP [place] [address] Patient Name: MADDIE RAMAN MRN: [id number] date: 1995 Sex: F Assigned Patient Location: US Current Patient Location: US Accession/Order Number: [id number] Exam Date: 05/13/2024 08:04 Report Date: 05/13/2024 [...] M.D. Signed By:05/13/24 0902 DD/ 0859 TD/TT: Power Plant Assistant: us Arminda Warner DO [facility] Final Result documented in this encounter Visit Diagnoses Not on filedocumented in this encounter
--- OUTSIDE RECORDS SUMMARY | 2024-11-14 19:28 | XMS_ITS | Encounter Summary ---
Author Organization [facility] tem Address [id number] [address] [place] [address] Care Team Providers Care Anesthesiology Faculty Name Role Phone KiaraAlly stevenson STROKE PROGRAM COORDINATOR-CISCO CERTIFIED NETWORK PROFESSIONAL Primary Care Provi collin Encounter Details Date Type Department Care Team (Late st Contact Info) Description 08/14/2024 Orders Only Maternal- Medicine at [facility] [address] [place] [address] Cedric Warner, DO [address] [facility] [address] [place] [address] Social History Tobacco Use Types Packs/Day Years [...] Author D/C Home General Yes Yaneth Bright, STROKE PROGRAM COORDINATOR-CISCO CERTIFIED NETWORK PROFESSIONAL Note: Evaluation of progress towards goal: Pt [...] documented as of this encounter Care Teams Anesthesiology Faculty Relationship Specialty Start Date End Date Ally Craig, STROKE PROGRAM COORDINATOR-CISCO CERTIFIED NETWORK PROFESSIONAL [address], [place] [address] PCP - General Family Medicine 04/12/18 documented as of this encounter
--- OUTSIDE RECORDS SUMMARY | 2024-11-14 19:28 | XMS_ITS | Encounter Summary ---
Author Organization [facility] Address [id number] [address] [place] [address] Care Team Providers Care Billing Adjudicator Name Role Phone Kiara, Ally Donn TOOL MARKER-RN LPN CNA Primary Care Provi collin Encounter Details Date Type Department Care Team (Late st Contact Info) Description 12/17/2020 Orders Only [facility] General Surgery-Bariatric [address] [facility] [place] [phone] External, Scanning Provider Social History Tobacco Use [...] Author Husain/C Home General Yes Yaneth Bright, TOOL MARKER-RN LPN CNA Note: Evaluation of progress towards goal: Pt plans to d/c home with self care and family support. documented as of this encounter Procedures Procedure Name Priority Date/Time Associated Diagnosis Comments PAP SMEAR Routine 12/17/2020 documented in this encounter Results * PAP SMEAR (12/17/2020) us Scanning Provider External HI PROFESSIONAL SERVI LINDA Final Result MANUALLY TRANSCRIBED RESULTS documented in this encounter Visit Diagnoses Not on filedocumented in this encounter Additional Health Concerns Infection Onset Date Last Indicated Resolved Time COVID-19 Rule-Out 05/27/2021 05/27/2021 05/28/2021 7:43 PM EST Assessment Noted Time PHQ-9 Depression Total Score: 0 01/22/20 20 2:00 PM EDT documented as of this encounter Care Teams Billing Adjudicator Relationship Specialty Start Date End Date Ally Craig, TOOL MARKER-RN LPN CNA [address], [place] [address] PCP - General Family Medicine 04/12/18 documented as of this encounter
--- OUTSIDE RECORDS SUMMARY | 2024-11-14 19:28 | XMS_ITS | Encounter Summary ---
Author Organization [facility] Address [id number] [address] [place] [address] Care Team Providers Care Director Corporate Name Role Phone Ally Craig CLAIMS CORRESPONDENCE CLERK-COLLECTION ANALYST Primary Care Provi collin Encounter Details Date Type Department Care Team (Late st Contact Info) Description 06/08/2022 Orders Only [facility] Family Medicine [address] [place] [address] [place] [address] External, Scanning Provider Social History [...] Author D/C Home General Yes Yaneth Bright, CLAIMS CORRESPONDENCE CLERK-COLLECTION ANALYST Note: Evaluation of progress towards goal: [...] documented as of this encounter Care Teams Director Corporate Relationship Specialty Start Date End Date Ally Craig, RAFA-COLLECTION ANALYST [address], [place] [address] PCP - General Family Medicine 04/12/18 documented as of this encounter
--- OUTSIDE RECORDS SUMMARY | 2024-11-14 19:28 | XMS_ITS | Encounter Summary ---
Author Organization [facility] Address [address] [place] [address] Care Team Providers Care Integrity Assessor Name Role Phone Unavailable Primary Care Provider Unavailabl e Encounter Details Date Type Department Care Team (Late st Contact Info) Description 11/03/2024 Telephone [facility] OB [address] [facility] [address] Celsa Coats MA Social History Tobacco [...] EDT Routine [facility] BCP OB [address] [facility] [place] [address] Zoraida Travis PA [address] [facility] [address] [place], [place] [id number] documented as of this encounter Visit Diagnoses Diagnosis H/O gastric sleeve documented in this encounter
--- OUTSIDE RECORDS SUMMARY | 2024-11-14 19:28 | XMS_ITS | Encounter Summary ---
Author Organization [facility] Address [id number] [address] [place] [address] Care Team Providers Care Bone Char Kiln Operator Name Role Phone KiaraAlly stevenson APRN-VENEER DRIER Primary Care Provi collin Encounter Details Date Type Department Care Team (Late st Contact Info) Description 09/25/2021 Orders Only [facility] General Surgery-Bariatric [address] [facility] [place] [phone] Evelyn Flower CMA Social History Tobacco Use [...] Author D/C Home General Yes Yaneth Bright, RAFA-VENEER DRIER Note: Evaluation of progress towards goal: Pt plans to d/c home with self care and family support. documented as of this encounter Visit Diagnoses Not on filedocumented in this encounter Additional Health Concerns Assessment Noted Time PHQ-9 Depression Total Score: 0 04/01/20 21 11:14 AM EDT documented as of this encounter Care Teams Bone Char Kiln Operator Relationship Specialty Start Date End Date Ally Craig, RAFA-VENEER DRIER [address], [place] [address] PCP - General Family Medicine 04/12/18 documented as of this encounter
--- OUTSIDE RECORDS SUMMARY | 2024-11-14 19:46 | XMS_ITS | CCD ---
Author Organization [facility] Care Team Providers Care Pantry Chef Name Role Phone Ally Craig Primary Care Provider [phone] TERRI AUGUSTIN Admitting Unavailable TERRI AUGUSTIN Attending [...] Unavailable Primary Care Provider Unavailabl e Kiara SUBSTATION OPERATOR APPRENTICE-LINE APPLIANCE ASSEMBLER, Ally A Primary Care Provi collin Kiara SUBSTATION OPERATOR APPRENTICE-LINE APPLIANCE ASSEMBLER, Ally A Primary Care Provi collin ZORAIDA [...] source) strawberry allergenic extract Drug Allergy [facility] Repository (11 sources) strawberry allergenic extract; Translations: [STRAWBERRY EXTRACT] Drug Allergy 9 Anaphylaxis [place], [place] (13 sources) [place] Propensity to adverse reactions 9 Anaphylaxis [facility] Medications Current Medications Medication Drug Class(es) Dates Sig (Normalized) Sig (Original) acetaminophen 500 mg oral tablet (1 source) Start: 02-01-2019 acetaminophen (TYLENOL) tablet 1,000 mg [id number] 200 actuat albuterol 0.09 mg/actuat metered dose [...] by mouth every week vitamin D (ERGOCALCIFEROL) 42249 units CAPS capsule Take 1 capsule by [...] B12 Start: 02-09-2019 End: 02-09-2019 iron polysaccharide ackdxsj-V41-ecbyc acid (FERREX-FORTE) 150-0.025-1 MG capsule 1 mg [...] OB BPP W NON-STRESS on 11-03-2024 [place] [address] Ultrasound Report Signed Patient: MADDIE RAMAN MR#: [id number] : 1995 Acct:[id number] Age/Sex: 29 / F ADM Date: 11/03/24 Loc: US Attending Dr: Cedric Warner D.O. Ordering Physician: Cedric Warner D.O. Date of Service: 11/03/24 Procedure(s): US OB BPP w non-stress Accession Number(s): [id number] cc: Cedric Warner D.O.; Ally Craig NP [place] [id number] Patient Name: MADDIE RAMAN MRN: [id number] date: 1995 Sex: F Assigned Patient Location: [facility] Current Patient Location: Accession/Order Number: [id number] Exam Date: 11/03/2024 16:12 Report Date: 11/03/2024 [...] Bland M.D. 11/03/2024 4:13 PM Dictation Location: [facility] Electronically authenticated by: [id number] Y Date: 11/03/2024 16:13 Dictated By: Cristo Bland M.D. Signed By: 11/03/241615 DD/ 12 TD/TT: Hand Welt Butter: [facility] Radiology, Radiologist, MD - 11/03/2024 [place] [address] Ultrasound Report Signed Patient: MADDIE RAMAN MR#: [id number] : 1995 Acct:[id number] Age/Sex: 29 / F ADM Date: 11/03/24 Loc: US Attending Dr: Cedric Warner D.O. Ordering Physician: Cedric Warner D.O. Date of Service: 11/03/24 Procedure(s): US OB BPP w non-stress Accession Number(s): [id number] cc: Cedric Warner D.O.; Ally Craig NP The [address] [address] Patient Name: MADDIE RAMAN MRN: [facility]:[id number] date: 1995 Sex: F Assigned Patient Location: [facility] Current Patient Location: Accession/Order Number: [id number] Exam Date: 11/03/2024 16:12 Report Date: 11/03/2024 [...] Bland M.D. 11/03/2024 4:13 PM Dictation Location: [facility] Electronically authenticated by: [id number] Y Date: 11/03/2024 16:13 Dictated By: Cristo Bland M.D. Signed By: 11/03/241615 DD/ 12 TD/TT: Hand Welt Butter: [facility] Radiology Study observation (narrative) [facility] US OB BPP W NON-STRESS Ordered By: Radiologist Radiology on 11-03-2024 [facility] Work Phone: US OB BPP W NON-STRESS on 10-30-2024 [place] [address] Ultrasound Report Signed Patient: MADDIE RAMAN MR#: [id number] : 1995 Acct:[id number] Age/Sex: 29 / F ADM Date: 10/27/24 Loc: US Attending Dr: Cedric Warner D.O. Ordering Physician: Cedric Warner D.O. Date of Service: 10/27/24 Procedure(s): US OB BPP w non-stress Accession Number(s): [id number] cc: Cedric Warner D.O.; Ally Craig NP [place] [phone] Patient Name: MADDIE RAMAN MRN: [facility]:[id number] date: 1995 Sex: F Assigned Patient Location: Current Patient Location: Accession/Order Number: [id number] Exam Date: 10/30/2024 09:26 Report Date: 10/30/2024 09:28 At the request of: CEDRIC WARNER DO Procedure: US OB BPP w non-stress BIOPHYSICAL PROFILE: CLINICAL INFORMATION: HISTORY OF GASTRIC SLEEVE Z 90.3 COMPARISON: 08/05/2024 There is a single live intrauterine gestation in cephalic presentation. The reported gestational age is 33 weeks 1 day. The heart rate [id number] beats per minute. FINDINGS: TONE: 1 or [...] Jensen M.D. 10/30/2024 9:28 AM Dictation Location: [place] [address] Electronically authenticated by: [id number] Y Date: 10/30/2024 09:28 Dictated By: Smita Jensen M.D. Signed By: 10/30/24930 DD/ 7 TD/TT: Hand Welt Butter: [facility] Radiology, Radiologist, - 10/30/2024 [place] [address] Ultrasound Report Signed Patient: MADDIE RAMAN MR#: [id number] : 1995 Acct:[id number] Age/Sex: 29 / F ADM Date: 10/27/24 Loc: US Attending Dr: Cedric Warner D.O. Ordering Physician: Cedric Warner D.O. Date of Service: 10/27/24 Procedure(s): US OB BPP w non-stress Accession Number(s): [id number] cc: Cedric Warner D.O.; Ally Craig NP [place] [address] Patient Name: MADDIE RAMAN MRN: [facility]:[id number] date: 1995 Sex: F Assigned Patient Location: US Current Patient Location: Accession/Order Number: [id number] Exam Date: 10/30/2024 09:26 Report Date: 10/30/2024 09:28 At the request of: CEDRIC WARNER DO Procedure: US OB BPP w non-stress BIOPHYSICAL PROFILE: CLINICAL INFORMATION: HISTORY OF GASTRIC SLEEVE Z 90.3 COMPARISON: 08/05/2024 There is a single live intrauterine gestation in cephalic presentation. The reported gestational age is 33 weeks 1 day. The heart rate [id number] beats per minute. FINDINGS: TONE: 1 or [...] Jensen M.D. 10/30/2024 9:28 AM Dictation Location: [place] [address] Electronically authenticated by: [id number] Y Date: 10/30/2024 09:28 Dictated By: Smita Jensen M.D. Signed By: 10/30/2431 DD/ 7 TD/TT: Hand Welt Butter: [facility] Radiology Study observation (narrative) [facility] OB BPP W NON-STRESS Ordered By: Radiologist Radiology on 10-30-2024 [facility] Work Phone: Urinalysis macro (dipstick) panel (U)on 10-25-2024 Bilirubin, UA Negative Negative - 4(70) +++ mg/dL [facility] Blood, UA Negative Negative - 50 Miguel Angel/mcL [facility] Clarity, UA Clear [facility] Color, UA Yellow [facility] Glucose, UA Negative Negative - 1999(110) ++++ mg/dL [facility] Interpretation and review of laboratory results Normal [facility] Ketones, UA Negative Negative - 160(16) ++++ mg/dL [facility] Leukocytes, UA Negative Negative - 500+++ Eleonora/mcL [facility] Nitrite, UA Negative Negative - Positive [facility] pH, UA 6.5 5 - 9 [facility] Protein, UA Negative Negative - 1999(20) ++++ mg/dL [facility] Spec Grav, UA 1.015 1 - 1.03 [facility] Urobilinogen, UA 0.2 0.2 - 12 mg/dL [facility] Urinalysis macro (dipstick) panel (U)on 10-11-2024 Bilirubin, UA Negative Negative - 4(70) +++ mg/dL [facility] Blood, UA Negative Negative - 50 Miguel Angel/mcL [facility] Clarity, UA Clear [facility] Color, UA Yellow [facility] Glucose, UA Negative Negative - 1999(110) ++++ mg/dL [facility] Interpretation and review of laboratory results Normal [facility] Ketones, UA Negative Negative - 160(16) ++++ mg/dL [facility] Leukocytes, UA Negative Negative - 500+++ Eleonora/mcL [facility] Nitrite, UA Negative Negative - Positive [facility] pH, UA 7 5 - 9 [facility] Protein, UA Trace Negative - 1999(20) ++++ mg/dL [facility] Spec Grav, UA 1.025 1 - 1.03 [facility] Urobilinogen, UA 0.2 0.2 - 12 mg/dL [facility] POCT EKGon 10-05-2024 [facility] Urinalysis macro (dipstick) panel (U)on 09-26-2024 Bilirubin, UA Negative Negative - 4(70) +++ mg/dL [facility] Blood, UA Negative Negative - 50 Miguel Angel/mcL [facility] Clarity, UA Clear [facility] Color, UA Tiffany [facility] Glucose, UA Negative Negative - 2000(110) ++++ mg/dL [facility] Interpretation and review of laboratory results Abnormal [facility] Ketones, UA Negative Negative - 160(16) ++++ mg/dL [facility] Leukocytes, UA Negative Negative - 500+++ Eleonora/mcL [facility] Nitrite, UA Negative Negative - Positive [facility] pH, UA 6 5 - 9 [facility] Protein, UA Positive Negative - 2000(20) ++++ mg/dL [facility] Comment on above: 30 Spec Grav, UA 1.03 1 - 1.03 [facility] Urobilinogen, UA 0.2 0.2 - 12 mg/dL [facility] No Panel InformationOrdered By: Radiologist Radiology on 08-05-2024 [facility] Work Phone: No Panel Informationon 08-05 Radiology Study observation (narrative) [facility] US OB ANATOMYon 08-05-2024 [place] [id number] Ultrasound Report Signed Patient: MADDIE RAMAN MR#: [id number] : 1995 Acct:[id number] Age/Sex: 29 / F ADM Date: 08/05/24 Loc: US Attending Dr: Zoraida Travis Ordering Physician: Zoraida Travis Date of Service: 08/05/24 Procedure(s): US OB anatomy Accession Number(s): [id number] cc: Zoraida Travis; Ally Craig NP [address] [address] Patient Name: MADDIE RAMAN MRN: [id number] date: 1995 Sex: F Assigned Patient Location: US Current Patient Location: US Accession/Order Number: [id number] Exam Date: 08/05/2024 08:01 Report Date: 08/05/2024 [...] Signed By: 08/05/24 0858 DD/ 0855 TD/TT: Hand Welt Butter: [facility] Radiology, Radiologist, MD - 08/05/2024 [place] [address] Ultrasound Report Signed Patient: MADDIE RAMAN MR#: [id number] : 1995 Acct:[id number] Age/Sex: 29 / F ADM Date: 08/05/24 Loc: US Attending Dr: oZraida Travis Ordering Physician: Zoraida Travis Date of Service: 08/05/24 Procedure(s): US OB anatomy Accession Number(s): [id number] cc: Zoraida Travis; Ally Craig NP [place] [address] Patient Name: MADDIE RAMAN MRN: [id number] date: 1995 Sex: F Assigned Patient Location: US Current Patient Location: US Accession/Order Number: [id number] Exam Date: 08/05/2024 08:01 Report Date: 08/05/2024 [...] Mathew M.D. Signed By: 08/05/2458 DD/ TD/TT: Hand Welt Butter: [facility] US OB CERVICAL LENGTHon 07-22 [place] [address] Ultrasound Report Signed Patient: MADDIE RAMAN MR#: [id number] : 1995 Acct:[id number] Age/Sex: 29 / F ADM Date: 08/05/24 Loc: US Attending Dr: Zoraida Travis Ordering Physician: Zoraida Travis Date of Service: 08/05/24 Procedure(s): US OB cervical length Accession Number(s): [id number] cc: Zoraida Travis; Ally Craig NP [place] [id number] Patient Name: MADDIE RAMAN MRN: [id number] date: 1995 Sex: F Assigned Patient Location: US Current Patient Location: US Accession/Order Number: [id number] Exam Date: 08/05/2024 08:01 Report Date: 08/05/2024 [...] M.D. Signed By: 08/05/24 0858 DD/ TD/TT: Hand Welt Butter: [facility] Radiology, Radiologist, MD - 08/05/2024 The [place] [id number] Ultrasound Report Signed Patient: MADDIE RAMAN MR#: [id number] : 1995 Acct:[id number] Age/Sex: 29 / F ADM Date: 08/05/24 Loc: US Attending Dr: Zoraida Travis Ordering Physician: Zoraida Travis Date of Service: 08/05/24 Procedure(s): US OB cervical length Accession Number(s): [id number] cc: Zoraida Travis; Ally Craig NP The [address] [address] Patient Name: MADDIE RAMAN MRN: [facility]:[id number] date: 1995 Sex: F Assigned Patient Location: US Current Patient Location: US Accession/Order Number: [id number] Exam Date: 08/05/2024 08:01 Report Date: 08/05/2024 [...] M.D. Signed By: 08/05/2458 DD/ 4 TD/TT: Hand Welt Butter: MARIA FERNANDA Watson HPV,AGE GDLNon AGE GDLN ACOG TESTING Note . [facility] Comment on above: TESTS RESULT FLAG UN ITS REF RANGE LAB Clinician Provided Cytology Information Source.............Cervix Other.............. No. of containers..01 ThinPrep Vial Age Frank Yip... FLAG LEGEND: L-Low Normal,H-High Normal,LL-Alert Low,HH-Alert High <-Panic Low,>-Panic High,A-Abnormal,AA-Critical Abnormal Performed at: 01 =[address] [facility] [address] Otilia Marquis MD, IGP, RFX APTIMA HPV ASCU Note . [facility] Comment on above: TESTS RESULT FLAG UN ITS REF RANGE LAB DIAGNOSIS: 02 NEGATIVE FOR INTRAEPITHELIAL LESION OR MALIGNANCY. Specimen adequacy: 02 Satisfactory for evaluation. Endocervical and/or squamous metaplastic cells (endocervical component) are present. Performed by: 02 Maritza Bliss, [employer] ([facility]) . 02 Note: Note 03 The [...] <-Panic Low,>-Panic High,A-Abnormal,AA-Critical Abnormal Performed at: [address] [address] Kyra Flores PhD, [address] [address] Otilia Marquis MD, Performed at: [address] [id number] [employer]: Otilia Marquis MD, Phone: [phone] Performed at: [address] [id number] [employer]: Kyra Flores PhD, Phone: [phone] [facility] RECURRENT VAGINITIS (HTRX)on 08-02-2024 ATOPOBIUM VAGINAE 21.302 Abnormal [facility] ATOPOBIUM VAGINAE Detected Abnormal [facility] BVAB 2,3 (BACTERIAL VAGINOSIS ASSOCIATED BACTERIA 2, 3); MOBILUNCUS SPP 18.822 Abnormal [facility] BVAB 2,3 (BACTERIAL VAGINOSIS ASSOCIATED BACTERIA 2, 3); MOBILUNCUS SPP Detected Abnormal [facility] ROCÍO ALBICANS, PARAPSILOSIS, TROPICALIS 0 [facility] ROCÍO ALBICANS, PARAPSILOSIS, TROPICALIS Not detected [facility] ROCÍO GLABRATA 0 [facility] ROCÍO GLABRATA Not detected [facility] ROCÍO KRUSEI 0 [facility] ROCÍO KRUSEI Not detected [facility] CHLAMYDIA TRACHOMATIS 0 [facility] S [facility] CHLAMYDIA TRACHOMATIS Not detected N [facility] ERMB, C; MEFA 21.66 Abnormal [facility] ERMB, C; MEFA Detected Abnormal [facility] GARDNERELLA VAGINALIS 22.792 Abnormal [facility] GARDNERELLA VAGINALIS Detected Abnormal [facility] Interpretation and review of laboratory results Abnormal [facility] MEGASPHAERA (TYPES 1, 2) 17.674 Abnormal [facility] MEGASPHAERA (TYPES 1, 2) Detected Abnormal [facility] MYCOPLASMA GENITALIUM 0 [facility] MYCOPLASMA GENITALIUM Not detected N [facility] NEISSERIA GONORRHOEAE 0 [facility] NEISSERIA GONORRHOEAE Not detected N [facility] TRICHOMONAS VAGINALIS 0 [facility] TRICHOMONAS VAGINALIS Not detected N [facility] Urinalysis macro (dipstick) panel (U)on 07-31-2024 Bilirubin, UA Positive Negative - 4(70) +++ mg/dL [facility] Comment on above: small Blood, UA Negative Negative - 50 Miguel Angel/mcL [facility] Clarity, UA Cloudy [facility] Color, UA Dark Tiffany [facility] Glucose, UA Negative Negative - 2000(110) ++++ mg/dL [facility] Interpretation and review of laboratory results Abnormal [facility] Ketones, UA Negative Negative - 160(16) ++++ mg/dL [facility] Leukocytes, UA Negative Negative - 500+++ Eleonora/mcL [facility] Nitrite, UA Negative Negative - Positive [facility] pH, UA 6 5 - 9 [facility] Protein, UA Positive Negative - 2000(20) ++++ mg/dL [facility] Comment on above: 30 mg Spec Grav, UA 1.03 1 - 1.03 [facility] Urobilinogen, UA 1.0 0.2 - 12 mg/dL [facility] AFP, SERUM, OPEN SPINA BIFID Aon 07-07-2024 AFP MOM 0.99 . [facility] AFP VALUE 31.8 ng/mL . [facility] COMMENT: Comment . [facility] Comment on above: Yanni West , Ph.D., [facility] Director References: Available Upon Request. Multiples Of Median Cutoffs For AFP Elevations Alonso 2.5 Black 2.8 IDD 2.0 Twins 4.5 Abbreviation Definitions IDD - Insulin Dep Diabetes OSBR - Open Spina Bifida Risk For further inquiries contact [facility] at [phone]. This test was developed and its performance characteristics determined by [facility]. It has not been cleared or approved by the Food and Drug Administration. Performed at: [facility] [address] [place], [place] [id number] Chemist Pharmaceutical: Sinai Arellano [facility], Phone: [phone] GEST. AGE ON COLLECTION DATE 17.9 . weeks [facility] GESTAT. AGE BASED ON Ultrasound . [facility] Comment on above: 15:0 on 06/15/2024 Recalculations are not recommended when gestational dating by LMP and ultrasound are within 10 days. INSULIN DEP DIABETES No . [facility] INTERPRETATION Comment . [facility] Comment on above: Interpretation: Scre [...] Customer Services to discuss available options. The [employer] recommends amniocentesis be offered to women age 35 and older. [age] [facility] MULTIPLE GESTATION No . [facility] OS[address] [place] [address] [place] [address] . [facility] RACE . [facility] RESULTS Report . [facility] TEST RESULTS: Negative . [facility] WEIGHT 237 . lbs [facility] N [id number] N ULTRASOUND [id number] 0 15 N 1 Y 237 N N N N N White/ [facility] Urinalysis macro (dipstick) panel (U)on 06-15-2024 Bilirubin, UA Negative Negative - 4(70) +++ mg/dL [facility] Blood, UA Negative Negative - 50 Miguel Angel/mcL [facility] Clarity, UA Clear [facility] Color, UA Yellow [facility] Glucose, UA Negative Negative - 2000(110) ++++ mg/dL [facility] Interpretation and review of laboratory results Abnormal [facility] Ketones, UA Negative Negative - 160(16) ++++ mg/dL [facility] Leukocytes, UA Few Negative - 500+++ Eleonora/mcL [facility] Comment on above: small Nitrite, UA Negative Negative - Positive [facility] pH, UA 7 5 - 9 [facility] Protein, UA Negative Negative - 1999(20) ++++ mg/dL [facility] Spec Grav, UA 1.025 1 - 1.03 [facility] Urobilinogen, UA 2.0 0.2 - 12 mg/dL [facility] BOX TESTon 06-06-2024 BOX TEST SENT OUT [facility] BOX1 [facility] BOX2 06/06/24 [facility] HCG ( test) Ql (U)o n 05-29-2024 Interpretation and review of laboratory results Abnormal [facility] Preg Test, Ur Positive Negative [facility] Urinalysis macro (dipstick) panel (U)on 05-29-2024 Bilirubin, UA Negative Negative - 4(70) +++ mg/dL [facility] Blood, UA Negative Negative - 50 Miguel Angel/mcL [facility] Clarity, UA Clear [facility] Color, UA Yellow [facility] Glucose, UA Negative Negative - 1999(110) ++++ mg/dL [facility] Interpretation and review of laboratory results Abnormal [facility] Ketones, UA Positive Negative - 160(16) ++++ mg/dL [facility] Comment on above: trace Leukocytes, UA Negative Negative - 500+++ Eleonora/mcL [facility] Nitrite, UA Negative Negative - Positive [facility] pH, UA 6.5 5 - 9 [facility] Protein, UA Negative Negative - 1999(20) ++++ mg/dL [facility] Spec Grav, UA 1.02 1 - 1.03 [facility] Urobilinogen, UA 1.0 0.2 - 12 mg/dL [facility] PREG QUANT HCGon 024 HCG QUANTITATIVE 96666 mIU/mL [facility] Comment on above: 5-50 0.2-1 WEEK 50-500 1-2 WEEKS 100-5,000 2-3 WEEKS 500-10,000 3-4 WEEKS 1,000-50,000 4-5 WEEKS 10,000-100,000 5-6 WEEKS 15,000-200,000 6-8 WEEKS 10,000-100,000 2-3 MONTHS [facility] PREG QUANT HCGon 05-10- 024 HCG QUANTITATIVE 09492 mIU/mL [facility] Comment on above: 5-50 0.2-1 WEEK 50-500 1-2 WEEKS 100-5,000 2-3 WEEKS 500-10,000 3-4 WEEKS 1,000-50,000 4-5 WEEKS 10,000-100,000 5-6 WEEKS 15,000-200,000 6-8 WEEKS 10,000-100,000 2-3 MONTHS [facility] PREG QUANT HCGon 18-2 024 HCG QUANTITATIVE 49947 mIU/mL [facility] Comment on above: 5-50 0.2-1 WEEK 50-500 1-2 WEEKS 100-5,000 2-3 WEEKS 500-10,000 3-4 WEEKS 1,000-50,000 4-5 WEEKS 10,000-100,000 5-6 WEEKS 15,000-200,000 6-8 WEEKS 10,000-100,000 2-3 MONTHS [facility] CBC AND AUTO DIFFon 03-15-20 24 ABSOLUTE BASOPHIL 0.1 X10E9/L Normal 0.0-0.2 [facility] Comment on above: Performed By: #### 2 4331-1, CBCA, CMP, FEPR, 2275-09, 2132-02, THYR #### [facility] ([id number]) [address], [address] [place] [address] ABSOLUTE NEUTROPHIL 3.1 X10E9/L Normal 1.5-6.6 [facility] Comment on above: Performed By: #### 2 4331-1, CBCA, CMP, FEPR, 2275-09, 2132-02, THYR #### [facility] ([id number]) [address] [place] [address] Basophils/100 WBC (Bld) 1.2 % Normal [facility] Comment on above: Performed By: #### 2 4331-1, CBCA, CMP, FEPR, 2275-09, 2132-02, THYR #### [facility] ([id number]) [address], [address] [place] [address] Eosinophils (Bld) [#/Vol] 0.4 10*3/uL Normal 0.0-0.4 [facility] Comment on above: Performed By: #### 2 4331-1, CBCA, CMP, FEPR, 2275-09, 2132-02, THYR #### [facility] ([id number]) [address], [address] [place] [address] Eosinophils/100 WBC (Bld) 6.7 % Normal [facility] Comment on above: Performed By: #### 2 4331-1, CBCA, CMP, FEPR, 2275-09, 2132-02, THYR #### [facility] ([id number]) [address], [facility] [address] [place] [address] Erythrocyte distribution width (RBC) [Ratio] 12.8 % Normal 11.5-15.0 [facility] Comment on above: Performed By: #### 2 4331-1, CBCA, CMP, FEPR, 2275-09, 2132-02, THYR #### [facility] ([id number]) [address] [facility] [address] [place] [address] Hematocrit (Bld) [Volume fraction] 36.5 % Normal 35-47 [facility] Comment on above: Performed By: #### 2 4331-1, CBCA, CMP, FEPR, 2275-09, 2132-02, THYR #### [facility] ([id number]) [address] [address] [place] [address] Hemoglobin (Bld) [Mass/Vol] 12.9 g/dL Normal 11.7-15.5 [facility] Comment on above: Performed By: #### 2 4331-1, CBCA, CMP, FEPR, 2275-09, 2132-02, THYR #### [facility] ([id number]) [address], [facility] [address] [place] [address] Lymphocytes (Bld) [#/Vol] 1.3 10*3/uL Normal 1.0-3.5 [facility] Comment on above: Performed By: #### 2 4331-1, CBCA, CMP, FEPR, 2275-09, 2132-02, THYR #### [facility] ([id number]) [address], [facility] [address] [place] [address] Lymphocytes/100 WBC (Bld) 25.0 % Normal [facility] Comment on above: Performed By: #### 2 4331-1, CBCA, CMP, FEPR, 2275-09, 2132-02, THYR #### [facility] ([id number]) [address] [address] MCH (RBC) [Entitic mass] 31.2 pg Normal 27-34 [facility] Comment on above: Performed By: #### 2 4331-1, CBCA, CMP, FEPR, 2275-09, 2132-02, THYR #### [facility] ([id number]) [address] [address] [place] [address] MCHC (RBC) [Mass/Vol] 35.4 g/dL Normal 32-36 [facility] Comment on above: Performed By: #### 2 4331-1, CBCA, CMP, FEPR, 2275-09, 2132-02, THYR #### [facility] ([id number]) [address] [address] MCV (RBC) [Entitic vol] 88 fL Normal 80-100 [facility] Comment on above: Performed By: #### 2 4331-1, CBCA, CMP, FEPR, 2275-09, 2132-02, THYR #### [facility] ([id number]) [address] [address] [place] [address] Monocytes (Bld) [#/Vol] 0.4 10*3/uL Normal 0-0.9 [facility] Comment on above: Performed By: #### 2 4331-1, CBCA, CMP, FEPR, 2275-09, 2132-02, THYR #### [facility] ([id number]) [address] [address] Monocytes/100 WBC (Bld) 8.4 % Normal [facility] Comment on above: Performed By: #### 2 4331-1, CBCA, CMP, FEPR, 2275-09, 2132-02, THYR #### [facility] ([id number]) [address] [address] Neutrophils/100 WBC (Bld) 58.7 % Normal [facility] Comment on above: Performed By: #### 2 4331-1, CBCA, CMP, FEPR, 2275-09, 2132-02, THYR #### [facility] ([id number]) [address] [address] Platelet mean volume (Bld) [Entitic vol] 8.5 fL Normal 7-12 [facility] Comment on above: Performed By: #### 2 4331-1, CBCA, CMP, FEPR, 2275-09, 2132-02, THYR #### [facility] ([id number]) [address] [address] Platelets (Bld) [#/Vol] 234 10*3/uL Normal 150-450 [facility] Comment on above: Performed By: #### 2 4331-1, CBCA, CMP, FEPR, 2275-09, 2132-02, THYR #### [facility] ([id number]) [address] [address] RBC COUNT 4.13 X10E12/L Normal 3.80-5.20 [facility] Comment on above: Performed By: #### 2 4331-1, CBCA, CMP, FEPR, 2275-09, 2132-02, THYR #### [facility] ([id number]) [address] [place] [address] WBC (Bld) [#/Vol] 5.3 10*3/uL Normal 4.0-11.0 [facility] Comment on above: Performed By: #### 2 4331-1, CBCA, CMP, FEPR, 2275-09, 2132-02, THYR #### [facility] ([id number]) [address] [place] [address] COMPREHENSIVE METABOLIC PANE Malachi 03-15-2024 Albumin [Mass/Vol] 4.4 g/dL Normal 3.2-5.3 [facility] Comment on above: Performed By: #### 2 4331-1, CBCA, CMP, FEPR, 2275-09, 2132-02, THYR #### [facility] ([id number]) [address] [place] [address] ALP [Catalytic activity/Vol] 52 U/L Normal 39-130 [facility] Comment on above: Performed By: #### 2 4331-1, CBCA, CMP, FEPR, 2275-09, 2132-02, THYR #### [facility] ([id number]) [address], [address] [place] [address] ALT [Catalytic activity/Vol] 16 U/L Normal 0-31 [facility] Comment on above: Performed By: #### 2 4331-1, CBCA, CMP, FEPR, 2275-09, 2132-02, THYR #### [facility] ([id number]) [address], [address] [place] [address] Anion gap [Moles/Vol] 9 mmol/L Normal 5-15 [facility] Comment on above: Performed By: #### 2 4331-1, CBCA, CMP, FEPR, 2275-09, 2132-02, THYR #### [facility] ([id number]) [address] [place] [address] AST [Catalytic activity/Vol] 19 U/L Normal 0-41 [facility] Comment on above: Performed By: #### 2 4331-1, CBCA, CMP, FEPR, 2275-09, 2132-02, THYR #### [facility] ([id number]) [address] [place] [address] Bilirubin [Mass/Vol] 0.5 mg/dL Normal 0.3-1.2 [facility] Comment on above: Performed By: #### 2 4331-1, CBCA, CMP, FEPR, 2275-09, 2132-02, THYR #### [facility] ([id number]) [address], [address] [place] [address] Calcium [Mass/Vol] 9.3 mg/dL Normal 8.5-10.5 [facility] Comment on above: Performed By: #### 2 4331-1, CBCA, CMP, FEPR, 2275-09, 2132-02, THYR #### [facility] ([id number]) [address], [address] [place] [address] Chloride [Moles/Vol] 104 mmol/L Normal 98-109 [facility] Comment on above: Performed By: #### 2 4331-1, CBCA, CMP, FEPR, 2275-09, 2132-02, THYR #### [facility] ([id number]) [address] [place] [address] CO2 [Moles/Vol] 27 mmol/L Normal 22-32 [facility] Comment on above: Performed By: #### 2 4331-1, CBCA, CMP, FEPR, 2275-09, 2132-02, THYR #### [facility] ([id number]) [address] [address] [place] [address] Creatinine [Mass/Vol] 0.60 mg/dL Normal 0.40-1.00 [facility] Comment on above: Result Comment: METH OD TRACEABLE TO IDMS STANDARD Performed By: #### 2 4331-1, CBCA, CMP, FEPR, 2275-09, 2132-02, THYR #### [facility] ([id number]) [address] [address] [place] [address] eGFR (CKD-EPI) NON-RACE DEPENDENT >90 Normal >59 [facility] Comment on above: Result Comment: Reported eGFR is based on the CKD-EPI 2020 equation that does not use a race coefficient. Performed By: #### 2 4331-1, CBCA, CMP, FEPR, 2275-09, 2132-02, THYR #### [facility] ([id number]) [address] [address] [place] [address] Glucose [Mass/Vol] 75 mg/dL Normal 65-99 [facility] Comment on above: Performed By: #### 2 4331-1, CBCA, CMP, FEPR, 2275-09, 2132-02, THYR #### [facility] ([id number]) [address] [address] [place] [address] Potassium [Moles/Vol] 4.2 mmol/L Normal 3.5-5.0 [facility] Comment on above: Performed By: #### 2 4331-1, CBCA, CMP, FEPR, 2275-09, 2132-02, THYR #### [facility] ([id number]) [address] [place] [address] Protein [Mass/Vol] 7.5 g/dL Normal 6.0-8.0 [facility] Comment on above: Performed By: #### 2 4331-1, CBCA, CMP, FEPR, 2275-4, 2132-02, THYR #### [facility] ([id number]) [address] [place] [address] Sodium [Moles/Vol] 140 mmol/L Normal 134-146 [facility] Comment on above: Performed By: #### 2 4331-1, CBCA, CMP, FEPR, 2275-4, 2132-02, THYR #### [facility] ([id number]) [address] [place] [address] Urea nitrogen [Mass/Vol] 10 mg/dL Normal 5-23 [facility] Comment on above: Performed By: #### 2 4331-1, CBCA, CMP, FEPR, 2275-09, 2132-02, THYR #### [facility] ([id number]) [address] [place] [address] FERRITINon 03-15-2024 Ferritin [Mass/Vol] 55 ng/mL Normal 11-307 [facility] Comment on above: Performed By: #### 2 4331-1, CBCA, CMP, FEPR, 2275-09, 2132-02, THYR #### [facility] ([id number]) [address] [place] [address] IRON PROFILEon 03-15-2024 Iron [Mass/Vol] 126 ug/dL Normal 50-170 [facility] Comment on above: Performed By: #### 2 4331-1, CBCA, CMP, FEPR, 2275-4, 2132-02, THYR #### [facility] ([id number]) [address], [address] [place] [address] IRON BINDING 351 ug/dL Normal 250-425 [facility] Comment on above: Performed By: #### 2 4331-1, CBCA, CMP, FEPR, 6-4, 2132-02, THYR #### [facility] ([id number]) [address] [place] [address] IRON SATURATION 36 % SATURATION Normal 15-50 [facility] Comment on above: Performed By: #### 2 4331-1, CBCA, CMP, FEPR, 6-, 2132-02, THYR #### [facility] ([id number]) [address], [address] [place] [address] Lipid 1996 panelon 03-15- 4 Cholesterol [Mass/Vol] 164 mg/dL Normal 150-200 [facility] Comment on above: Performed By: #### 2 4331-1, CBCA, CMP, FEPR, 2275-, 2132-02, THYR #### [facility] ([id number]) [address] [place] [address] Cholesterol in HDL [Mass/Vol] 57 mg/dL Normal >39 [facility] Comment on above: Result Comment: HDL <40 mg/dL - High Risk HDL > or = 40mg/dL- Desirable HDL >60 mg/dL - Negative Risk Performed By: #### 2 4331-1, CBCA, CMP, FEPR, 6-, 2132-02, THYR #### [facility] ([id number]) [address] [place] [address] Cholesterol in LDL [Mass/Vol] 84 mg/dL Normal <130 [facility] Comment on above: Result Comment: LDL <100 mg/dL - Desirable LDL >160 mg/dL - High Risk Performed By: #### 2 4331-1, CBCA, CMP, FEPR, 2275-09, 2132-02, THYR #### [facility] ([id number]) [address] [place] [address] Cholesterol in VLDL [Mass/Vol] 23 mg/dL Normal 0-30 [facility] Comment on above: Performed By: #### 2 4331-1, CBCA, CMP, FEPR, 2275-09, 2132-02, THYR #### [facility] ([id number]) [address] [place] [address] CHOLESTEROL:HDL 2.9 Normal 1.0-5.0 [facility] Comment on above: Performed By: #### 2 4331-1, CBCA, CMP, FEPR, 2275-09, 2132-02, THYR #### [facility] ([id number]) [address] [place] [address] Triglyceride [Mass/Vol] 115 mg/dL Normal 27-150 [facility] Comment on above: Performed By: #### 2 4331-1, CBCA, CMP, FEPR, 2275-09, 2132-02, THYR #### [facility] ([id number]) [address] [place] [address] THYROID PROFILEon 03-15-2024 Free T4 [Mass/Vol] 0.74 ng/dL Normal 0.61-1.60 [facility] Comment on above: Performed By: #### 2 4331-1, CBCA, CMP, FEPR, 2275-09, 2132-02, THYR #### [facility] ([id number]) [address] [place] [address] TSH 2.68 uIU/mL Normal 0.49-4.67 [facility] Comment on above: Performed By: #### 2 4331-1, CBCA, CMP, FEPR, 2275-09, 2132-02, THYR #### [facility] ([id number]) [address] [facility] [place] [address] VITAMIN B12on 03-15-2024 Cobalamin (Vitamin B12) [Mass/Vol] 537 pg/mL Normal 180-914 [facility] Comment on above: Performed By: #### 2 4331-1, CBCA, CMP, FEPR, 2275-09, 2132-02, THYR #### [facility] ([id number]) [address] [facility] [place] [address] POCT urinalysis dipstick onl yon 01-20-2024 Appearance (U) Cloudy [facility] External Poct Urine Bilirubin Negative [facility] External Poct Urine Blood Trace [facility] External Poct Urine Character Malodorous [facility] External Poct Urine Color Dark Yellow [facility] External Poct Urine Glucose Negative [facility] External Poct Urine Ketones Trace [facility] External Poct Urine Leukocyte Esterase Large [facility] External Poct Urine Nitrite Negative [facility] External Poct Urine Ph 5.0 Pr [facility] External Poct Urine Protein 3+ [facility] External Poct Urine Specific Stowell 1.000 [facility] External Poct Urine Urobilinogen 0.2 [facility] URINE CULTUREon 01-20-2024 Bacteria identified Cx Nom [...] F TRIMETH/SULFAMETHOXA ZOLE R >=16/[address] [facility] Comment on above: Performed By: #### 6 30-4 #### [facility] ([id number]) [address] [facility] [place] [address] Basic Metabolic Vasquez w/Rfx A1 Con 12-08-2023 GFR/1.73 sq M.predicted MDRD (S/P/Bld) [Vol rate/Area] mL/min/{1.73_m2} Normal [facility] Comment on above: Performed By: #### E BS LIPID, EMP BMP #### [facility] [address] [id number] [place] Calcium [Mass/volume] in Ser um or PlasmaOrdered By: Janna Escalera on 12-08-2023 Calcium [Mass/Vol] 9.5 mg/dL Normal 8.6-10.3 [facility] Comment on above: Performed By: #### E BS LIPID, EMP BMP #### [facility] [address] [id number] [place] Carbon dioxide, total [Moles /volume] in Serum or PlasmaOrdered By: Janna Escalera on 12-08-2023 CO2 [Moles/Vol] 29.1 mmol/L Normal 21.0-31.0 [facility] Comment on above: Performed By: #### E BS LIPID, EMP BMP #### [facility] [address] [place] [address] [place] Chloride [Moles/volume] in S radha or PlasmaOrdered By: Janna Escalera on 12-08-2023 Chloride [Moles/Vol] 105 mmol/L Normal 98-107 [facility] Comment on above: Performed By: #### E BS LIPID, EMP BMP #### [facility] [address] [id number] [place] Cholesterol [Mass/volume] in Serum or PlasmaOrdered By: Janna Escalera on 12-08-2023 Cholesterol [Mass/Vol] 163 mg/dL Normal 140-200 [facility] Comment on above: Chol less than 200 m g/dl low riskChol 201-239 mg/dl borderline riskChol 240 mg/dl and greater high risk Result Comment: Chol less than 200 mg/dl low risk Chol 201-239 mg/dl borderline risk Chol 240 mg/dl and greater high risk Performed By: #### E BS LIPID, EMP BMP #### [facility] [address] [id number] [place] Cholesterol in LDL Calc [Mas s/Vol]Ordered By: Janna Escalera on 12-08-2023 Cholesterol in LDL [Mass/Vol] 84 mg/dL 0-100 [facility] Comment on above: LDL ATP III CLASSIFI CATIONLDL less than 100 mg/dL OptimalLDL 100-129 mg/dL Near or above optimalLDL 130-159 mg/dL Borderline highLDL 160-189 mg/dL HighLDL greater than 189 mg/dL Very high Cholesterol in VLDL Calc [Ma ss/Vol]Ordered By: Janna Escalera on 12-08-2023 Cholesterol in VLDL [Mass/Vol] 17 mg/dL [facility] Creatinine [Mass/volume] in Serum or PlasmaOrdered By: Janna Escalera on 12-08-2023 Creatinine [Mass/Vol] 0.69 mg/dL Normal 0.60-1.20 [facility] Comment on above: Performed By: #### E BS LIPID, EMP BMP #### [facility] [address] [place] [address] [place] Glucose [Mass/volume] in Ser um or PlasmaOrdered By: Janna Escalera on 12-08-2023 Glucose [Mass/Vol] 83 mg/dL Normal 70-100 [facility] Comment on above: Performed By: #### E BS LIPID, EMP BMP #### [facility] [address] [id number] [place] Lipid Profileon 12-08-2023 LDL Cholesterol,Calculated 84 mg/dL Normal 0-100 [facility] Comment on above: Result Comment: LDL ATP III CLASSIFICATION LDL less than 100 mg/dL Optimal LDL 100-129 mg/dL Near or above optimal LDL 130-159 mg/dL Borderline high LDL 160-189 mg/dL High LDL greater than 189 mg/dL Very high Performed By: #### E BS LIPID, EMP BMP #### [facility] [address] Triglyceride w/Reflex 87 mg/dL Normal 0-149 [facility] Comment on above: Result Comment: TRIG ATP III CLASSIFICATION TRIG less than 150 mg/dL Normal TRIG 150-199 mg/dL Borderline high TRIG 200-500 mg/dL High TRIG greater than 500 mg/dL Very high Standard traceable to the Center for Disease Conrtrol and Prevention (CDC) test method. Performed By: #### E BS LIPID, EMP BMP #### [facility] [address] VLDL CHOLESTEROL 17 mg/dL Normal [facility] Comment on above: Performed By: #### E BS LIPID, EMP BMP #### [facility] [address] No Panel InformationOrdered By: Janna Escalera on 12-08-2023 Estimated GFR (CKD-EPI) > 60.0 mL/Min [facility] Creatinine Clearance (Chem N/A [facility] Potassium [Moles/volume] in Serum or PlasmaOrdered By: Janna Escalera on 12-08-2023 Potassium [Moles/Vol] 3.6 mmol/L Normal 3.5-5.1 [facility] Comment on above: Performed By: #### E BS LIPID, EMP BMP #### [facility] [address] [place] [address] Serum or plasma anion gap de terminationOrdered By: Janna Escalera on 12-08-2023 Anion gap [Moles/Vol] 10.5 mmol/L Normal 6.0-15.0 [facility] Comment on above: Performed By: #### E BS LIPID, EMP BMP #### [facility] [address] Serum or plasma high density lipoprotein (HDL) cholesterol measurementOrdered By: Janna Escalera on 12-08-2023 Cholesterol in HDL [Mass/Vol] 62 mg/dL Normal 23-92 [facility] Comment on above: HDL CHOL ATP-III CLA SSIFICATION Cardiovascular RiskHDL > or equal to 60 mg/dL LOWHDL < 40 mg/dL HIGH Result Comment: HDL CHOL ATP-III CLASSIFICATION Cardiovascular Risk HDL > or equal to 60 mg/dL LOW HDL < 40 mg/dL HIGH Performed By: #### E BS LIPID, EMP BMP #### [facility] [address] Serum or plasma total choles terol/high density lipoprotein (HDL) cholesterol mass ratOrdered By: Janna Escalera on 12-08-2023 Cholesterol.total/Chol esterol in HDL [Mass ratio] 2.6 {ratio} Normal <5.0 [facility] Comment on above: Result Comment: PERF ORMED BY: [place] [address] PATHOLOGIST PUSH BENCH OPERATOR HELPER CHERYL GEORGE M.D. Performed By: #### E BS LIPID, EMP BMP #### [address] Sodium [Moles/volume] in Ser um or PlasmaOrdered By: Janna Escalera on 12-08-2023 Sodium [Moles/Vol] 141 mmol/L Normal 136-145 [facility] Comment on above: Performed By: #### E BS LIPID, EMP BMP #### [facility] [address] Triglyceride [Mass/volume] i n Serum or PlasmaOrdered By: Janna Escalera on 12-08-2023 Triglyceride [Mass/Vol] 87 mg/dL 0-149 [facility] Comment on above: TRIG ATP III CLASSIF ICATIONTRIG less than 150 mg/dL NormalTRIG 150-199 mg/dL Borderline highTRIG 200-500 mg/dL High TRIG greater than 500 mg/dL Very highStandard traceable to the Center for Disease Conrtrol and Prevention (CDC) test method. Urea nitrogen [Mass/volume] in Serum or PlasmaOrdered By: Janna Escalera on 12-08-2023 Urea nitrogen [Mass/Vol] 14 mg/dL Normal 7-25 [facility] Comment on above: Performed By: #### E BS LIPID, EMP BMP #### [facility] [address] MRI HIP RIGHT W CONTRASTon 1 [...] Tucker Ashby MD 06/08/22 Final result Normal [facility] IR INJ ARTHROGRAM HIP RIGHTo n [...] 120.55 uGy cm 2 Views: 3 PROCEDURE: OPTIONS ADVISOR: Elijah Houston This procedure was performed by [...] Eric Rae MD 06/05/22 Final result Normal [facility] Successful fluoroscopic-guided right hip arthrogram. Patient [...] 120.55 uGy cm 2 Views: 3 PROCEDURE: OPTIONS ADVISOR: Elijah Houston This procedure was performed by [...] 120.55 uGy cm 2 Views: 3 PROCEDURE: OPTIONS ADVISOR: Elijah Houston This procedure was performed by [...] was transferred to MRI for further imaging. [employer] Phone: Radiology Study observation (narrative) [employer] Phone: IR INJ ARTHROGRAM HIP RIGHTO rdered By: Eric Dukes on 06-05-2022 L[facility] ALAS [employer] Phone: 2018 Novel Coronavirus (CoVI D-19), SAMIR LCon 02-20-2021 SARS-CoV-2 (COVID-19) RNA SAMIR+probe Ql (Unsp spec) Not detected Invalid Interpretation Code Not Detected [facility] Comment on above: Result Comment: This nucleic acid amplification test was developed and its performance characteristics determined by [employer]. Nucleic acid amplification tests include RT- PCR [...] result in this assay. Performed At: [address] [id number] Maritza Uribe PhD Ph:[phone] Performed By: #### 6 [id number] #### [facility] (DEFAULT) [address] [place] [address] Consent Formson 02-19-2021 Consent Forms [id number] #1.00OTGTIFF [facility] Consent Forms [id number] #1.00OTGTIFF [facility] Lab - Toxicology Resultson 0 02-19-2021 Lab - Toxicology Results [id number] #1.00OTGTIFF [facility] Outside Recordson 02-19-2021 Outside Records [id number] #1.00OTGTIFF [facility] Triage Industrialon 02-20-20 21 Drug Screen Complete Collected [facility] Comment on above: Performed By: #### 1 [id number] #### [facility] (DEFAULT) [address] [place] [address] ED Clinical Summaryon 2020 ED Clinical Summary [facility] ? Urgent Care [address] [place] [address] [id number] Clinical Summary PERSON INFORMATION Name: MADDIE RAMAN Age: 25 Years Sex: FEMALE : 1995 MRN: Acct#: Visit Reason: Medical screening exam; [facility] Arrival: 02/18/2021 13:01:04 Discharge: 02/18/2021 14:21:00 LOS: 000 01:20 Check In: 02/18/2021 13:01:04 Checkout: 02/18/2021 14:21:00 Address: [address] [place] [id number] PCP: Provider, Unlisted PROVIDER INFORMATION Provider Role [...] iver verbalizes understanding of instructions given Comment: [facility] ED Patient Summaryon 021 ED Patient Summary [facility] ? Urgent Care [address] [place] [address] [phone] PATIENT DISCHARGE INSTRUCTIONS Patient Information Name: MADDIE RAMAN Age: 25 Years Date of : 1995 [facility]: [id number] Reason For Visit: Medical screening exam; [facility] Arrival Time: 02/18/2021 13:01:04 Primary Care Physician: Provider, Unlisted Attending Physician: Adam Moncada PA-C Comment: Patient Education Medication Information: The exam and treatment you received today in the [facility] Emergency Department were for an urgent problem and are not intended as complete care. It is important for you to follow up with a doctor, nurse practitioner, or physician?s access services assistant for ongoing care. If your symptoms [...] can reach you if necessary. [facility] Emergency Department has provided you with a complete list of medications post discharge. 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 respite care provider/provider of your visit and for further instruction on these medications. Any specific questions regarding your chronic medications and dosages should be discussed with your primary care physician(s) and/or pharmacist. Visit Information Visit Diagnosis: Diagnoses This Visit Medical screening exam ([id number]) If you received any narcotics, sedation, or [...] Reason for Visit: Patient arrives to for [place] physical Allergies: Substance Reaction Symptoms Type Comments [...] for Disease Control and Prevention February 2014 [facility] Note- Provideron 02-18-2021 Urgent Care Note- Provider Patient: MADDIE RAMAN Age: 25 years Sex: FEMALE : 1995 Associated Diagnoses: None Author: Adam Moncada PA-C Basic Information Additional information: Chief Complaint from Nursing Triage Note : Chief Complaint 02/18/2021 13:34 EDT Chief Complaint Patient arrives to for [place] physical . History of Present Illness Patient presents for a pre-employment physical. She is cleared for work. Exam is normal. See scanned document. PSYCHIATRIC: Mood and affect appropriate. Health Status Allergies: Allergic Reactions (Selected) No known allergies. Past Medical/ Family/ Social History Medical history: No active or resolved past medical history items have been selected or recorded.. Surgical history: Cholecystectomy ([id number]). Hip replacement ([id number]). delivery ([id number]). Cardiac ablation system ([id number]).. Family history: No family history items have [...] Therapy Room air . Normal [facility] Recordon 021 Urgent Care Record [facility] ? Urgent Care [address] [place] [address] PATIENT DISCHARGE INSTRUCTIONS Patient Information Name: MADDIE RAMAN Age: 25 Years Date of : 1995 Reason For Visit: [facility]: 02/18/2021 13:01:04 Primary Care Physician: Provider, Unlisted Attending Physician: Adam Moncada PA-C Comment: Visit Diagnosis: Diagnoses This Visit Medical screening exam ([id number]) If you received any narcotics, sedation, or [...] treatment you received today in the [facility] were for an urgent problem and are not intended as complete care. It is important for you to follow up with a doctor, nurse practitioner, or physician?s access services assistant for ongoing care. If your symptoms [...] can reach you if necessary. [facility] has provided you with a complete list of medications post discharge. 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 respite care provider/provider of your visit and for further instruction [...] Disease Control and Prevention February 2014 Normal [facility] PROGESTERONEon 05-25-2020 Progesterone 3.3 ng/mL Normal [facility] Comment on above: Result Comment: Foll icular phase 0.1 - 0.9 Luteal phase 1.8 - 23.9 Ovulation phase 0.1 - 12.0 First trimester 11.0 - 44.3 Second trimester 25.4 - 83.3 Third trimester 58.7 - 214.0 Postmenopausal 0.0 - 0.1 Performed By: #### P ROSA #### [facility] [address] [place], [place] [address] Sebatsian Ordoñez Hgb/Hcton 02-22-2019 Hematocrit (Bld) [Volume fraction] 28.7 % Low 36-46 [facility] Comment on above: Performed By: #### H H #### [facility] [address] [place], [place] [id number] [employer]: Remy Haq DO Hemoglobin (Bld) [Mass/Vol] 9.4 g/dL Low 12.0-16.0 [facility] Comment on above: Performed By: #### H H #### [facility] [address] [place] [address] [employer]: Remy Haq DO Basic Metabolic Profon 02-20 (cont.) Normal [facility] Comment on above: Result Comment: Aver age GFR for 20-29 years old: 116 mL/min/1.73sq m Chronic Kidney Disease: <60 mL/min/1.73sq m Kidney failure: <15 mL/min/1.73sq m eGFR calculated using average adult body mass. Additional eGFR calculator available at: http://www.[employer].com/multiple_crcl_2012.htm Performed By: #### C JAMA, BMP #### [facility] [address] [place], [place] [id number] [employer]: Remy Haq DO Anion gap [Moles/Vol] 13 mmol/L Normal 9-17 [facility] Comment on above: Performed By: #### C JAMA, BMP #### [facility] [address] [place] [address] [employer]: Remy Haq DO Calcium [Mass/Vol] 8.8 mg/dL Normal 8.6-10.4 [facility] Comment on above: Performed By: #### C BC, BMP #### [facility] [address] [place] [address] [employer]: Remy Haq DO Chloride [Moles/Vol] 103 mmol/L Normal 98-107 [facility] Comment on above: Performed By: #### C BC, BMP #### [facility] [place] [address] [employer]: Remy Hqa DO CO2 [Moles/Vol] 25 mmol/L Normal 20-31 [facility] Comment on above: Performed By: #### C BC, BMP #### [facility] [place] [address] [employer]: Remy Haq DO Creatinine [Mass/Vol] 0.72 mg/dL Normal 0.50-0.90 [facility] Comment on above: Performed By: #### C BC, BMP #### [facility] [place] [address] [employer]: Remy Haq DO GFR, Amer >60 Normal >60 [facility] Comment on above: Performed By: #### C BC, BMP #### [facility] [address] [place] [address] [employer]: Remy aHq DO GFR,non Amer >60 Normal >60 [facility] Comment on above: Performed By: #### C BC, BMP #### [facility] [address] [place] [address] [employer]: Remy Haq DO Glucose [Mass/Vol] 96 mg/dL Normal 70-99 [facility] Comment on above: Performed By: #### Joy YUN, BMP #### [facility] [address] [place] [address] [employer]: Remy Haq DO Potassium [Moles/Vol] 4.0 mmol/L Normal 3.7-5.3 [facility] Comment on above: Performed By: #### Joy YUN, BMP #### [facility] [address] [place] [address] [employer]: Remy Haq DO Sodium [Moles/Vol] 141 mmol/L Normal 135-144 [facility] Comment on above: Performed By: #### Joy YUN, BMP #### [facility] [address] [place] [address] [employer]: Remy Haq DO Urea nitrogen [Mass/Vol] 10 mg/dL Normal 6-20 [facility] Comment on above: Performed By: #### Joy YUN, BMP #### [facility] [place] [address] [employer]: Remy Haq DO BUN/CRE Ratio NOT REPORTED Normal 9-20 [facility] Comment on above: Performed By: #### Joy YUN, BMP #### [facility] [place] [address] [employer]: Remy Haq DO Staging: NOT REPORTED Normal [facility] Comment on above: Performed By: #### Joy YUN, BMP #### [facility] [address] [place] [address] [employer]: Remy Haq DO CBCon 02-20-2019 Erythrocyte distribution width (RBC) [Ratio] 16.5 % High 11.5-14.9 [facility] Comment on above: Performed By: #### Joy YUN, BMP #### [facility] [place] [address] [employer]: Remy Haq DO Hematocrit (Bld) [Volume fraction] 25.9 % Low 36-46 [facility] Comment on above: Performed By: #### C JAMA, BMP #### [facility] [address] [place] [address] [employer]: Remy Haq DO Hemoglobin (Bld) [Mass/Vol] 8.6 g/dL Low 12.0-16.0 [facility] Comment on above: Performed By: #### C JAMA, BMP #### [facility] [address] [place] [address] [employer]: Remy Haq DO MCH (RBC) [Entitic mass] 28.2 pg Normal 26-34 [facility] Comment on above: Performed By: #### Joy YUN, BMP #### [facility] [address] [place] [address] [employer]: Remy Haq DO MCHC (RBC) [Mass/Vol] 33.0 g/dL Normal 31-37 [facility] Comment on above: Performed By: #### Joy YUN, BMP #### [facility] [address] [place] [address] [employer]: Remy Haq DO MCV (RBC) [Entitic vol] 85.4 fL Normal 80-100 [facility] Comment on above: Performed By: #### C JAMA, BMP #### [facility] [address] [place] [address] [employer]: Remy Haq DO Platelet mean volume (Bld) [Entitic vol] 6.7 fL Normal 6.0-12.0 [facility] Comment on above: Performed By: #### C JAMA, BMP #### [facility] [address] [place] [address] [employer]: Remy Haq DO Platelets (Bld) [#/Vol] 419 10*3/uL Normal 150-450 [facility] Comment on above: Performed By: #### Joy YUN, BMP #### [facility] [place] [address] [employer]: Remy Haq DO RBC (Bld) [#/Vol] 3.03 10*6/uL Low 4.0-5.2 [facility] Comment on above: Performed By: #### Joy YUN, BMP #### [facility] [place] [address] [employer]: Remy Haq DO WBC (Bld) [#/Vol] 6.3 10*3/uL Normal 3.5-11.0 [facility] Comment on above: Performed By: #### Joy YUN, BMP #### [facility] [address] [place] [address] [employer]: Remy Haq DO NRBC Automated NOT REPORTED Normal [facility] Comment on above: Performed By: #### Joy YUN, BMP #### [facility] [address] [place] [address] [employer]: Remy Haq DO Hgb/Hcton 02-20-2019 Hematocrit (Bld) [Volume fraction] 29.6 % Low 36-46 [facility] Comment on above: Performed By: #### H H #### [facility] [address] [place] [address] [employer]: Remy Haq DO Hemoglobin (Bld) [Mass/Vol] 9.7 g/dL Low 12.0-16.0 [facility] Comment on above: Performed By: #### H H #### [facility] [address] [place] [address] [employer]: Remy Haq DO CBCon 02-19-2019 Erythrocyte distribution width (RBC) [Ratio] 16.6 % High 11.5-14.9 [facility] Comment on above: Performed By: #### C BC #### [facility] [place] [address] [employer]ist [employer]: Remy Haq DO Hematocrit (Bld) [Volume fraction] 23.2 % Low 36-46 [facility] Comment on above: Performed By: #### C BC #### [facility] [place] [address] [employer]ist [employer]: Remy Haq DO Hemoglobin (Bld) [Mass/Vol] 7.6 g/dL Low 12.0-16.0 [facility] Comment on above: Performed By: #### C BC #### [facility] [place] [address] [employer]: Remy Haq DO MCH (RBC) [Entitic mass] 27.8 pg Normal 26-34 [facility] Comment on above: Performed By: #### C BC #### [facility] [place] [address] [employer]: Remy Haq DO MCHC (RBC) [Mass/Vol] 32.7 g/dL Normal 31-37 [facility] Comment on above: Performed By: #### C BC #### [facility] [place] [address] [employer]ist [employer]: Remy Haq DO MCV (RBC) [Entitic vol] 85.0 fL Normal 80-100 [facility] Comment on above: Performed By: #### C BC #### [facility] [address] [place] [address] [employer]: Remy Haq DO Platelet mean volume (Bld) [Entitic vol] 6.5 fL Normal 6.0-12.0 [facility] Comment on above: Performed By: #### C BC #### [facility] [address] [place] [address] [employer]: Remy Haq DO Platelets (Bld) [#/Vol] 444 10*3/uL Normal 150-450 [facility] Comment on above: Performed By: #### C BC #### [facility] [address] [place] [address] [employer]: Remy Haq DO RBC (Bld) [#/Vol] 2.73 10*6/uL Low 4.0-5.2 [facility] Comment on above: Performed By: #### C BC #### [facility] [address] [place] [address] [employer]: Remy Haq DO WBC (Bld) [#/Vol] 5.1 10*3/uL Normal 3.5-11.0 [facility] Comment on above: Performed By: #### C BC #### [facility] [place] [address] [employer]ist [employer]: Remy Haq DO NRBC Automated NOT REPORTED Normal [facility] Comment on above: Performed By: #### C BC #### [facility] [address] [place] [address] [employer]: Remy Haq DO Type + Crossmatchon 02-20-20 19 Type + Crossmatch Sample Expiration 02/22/2019 Arm Band Number [id number] ABO/Rh(D) A POSITIVE Antibody Screen NEGATIVE Blood Bank Comment Pt's ABRh confirmed as A POS:402 Results Verified BLANCHE, Polyspecific NEGATIVE BLANCHE, Anti-IgG [place]ore[place] Serum NEGATIVE Antibody Ident Anti-[place](A) Present Unit Number [id number] Blood Component Type Leukocyte Reduced Red Cell Unit Division 00 Status of Unit TRANSFUSED Transfusion Status OK TO TRANSFUSE Crossmatch Result COMPATIBLE Normal [facility] Comment on above: Performed By: #### T YX #### [facility] [place] [address] [employer]: Remy Haq DO Basic Metab w/rfx MGon 02-16 (cont.) Normal [facility] Comment on above: Result Comment: Aver age GFR for 20-29 years old: 116 mL/min/1.73sq m Chronic Kidney Disease: <60 mL/min/1.73sq m Kidney failure: <15 mL/min/1.73sq m eGFR calculated using average adult body mass. Additional eGFR calculator available at: http://www.[employer]/multiple_crcl_2012.htm Performed By: #### B MPX, CBC #### [facility] [place] [address] [employer]: Remy Haq DO Anion gap [Moles/Vol] 11 mmol/L Normal 9-17 [facility] Comment on above: Performed By: #### B MPX, CBC #### [facility] [address] [place] [address] [employer]: Remy Haq DO Calcium [Mass/Vol] 8.6 mg/dL Normal 8.6-10.4 [facility] Comment on above: Performed By: #### B MPX, CBC #### [facility] [place] [address] [employer]: Remy Haq DO Chloride [Moles/Vol] 100 mmol/L Normal 98-107 [facility] Comment on above: Performed By: #### B MPX, CBC #### [facility] [address] [place] [address] [employer]ist [employer]: Remy Haq DO CO2 [Moles/Vol] 26 mmol/L Normal 20-31 [facility] Comment on above: Performed By: #### B MPX, CBC #### [facility] [address] [place] [address] [employer]ist [employer]: Remy Haq DO Creatinine [Mass/Vol] 0.62 mg/dL Normal 0.50-0.90 [facility] Comment on above: Performed By: #### B MPX, CBC #### [facility] [address] [place] [address] [employer]ist [employer]: Remy Haq DO GFR, Amer >60 Normal >60 [facility] Comment on above: Performed By: #### B MPX, CBC #### [facility] [address] [place] [address] [employer]ist [employer]: Remy Haq DO GFR,non Amer >60 Normal >60 [facility] Comment on above: Performed By: #### B MPX, CBC #### [facility] [address] [place] [address] [employer]ist [employer]: Remy Haq DO Glucose [Mass/Vol] 95 mg/dL Normal 70-99 [facility] Comment on above: Performed By: #### B MPX, CBC #### [facility] [address] [place] [address] [employer]ist [employer]: Remy Haq DO Potassium [Moles/Vol] 4.2 mmol/L Normal 3.7-5.3 [facility] Comment on above: Performed By: #### B MPX, CBC #### [facility] [address] [place] [address] [employer]: Remy Haq DO Sodium [Moles/Vol] 137 mmol/L Normal 135-144 [facility] Comment on above: Performed By: #### B MPX, CBC #### [facility] [address] [place] [address] [employer]ist [employer]: Remy Haq DO Urea nitrogen [Mass/Vol] 11 mg/dL Normal - [facility] Comment on above: Performed By: #### B MPX, CBC #### [facility] [address] [place] [address] [employer]ist [employer]: Remy Haq DO BUN/CRE Ratio NOT REPORTED Normal -20 [facility] Comment on above: Performed By: #### B MPX, CBC #### [facility] [address] [place] [address] [employer]ist [employer]: Remy Haq DO Staging: NOT REPORTED Normal [facility] Comment on above: Performed By: #### B MPX, CBC #### [facility] [address] [place] [address] [employer]ist [employer]: Remy Haq DO CBCon 02-16-2019 Erythrocyte distribution width (RBC) [Ratio] 16.3 % High 11.5-14.9 [facility] Comment on above: Performed By: #### B MPX, CBC #### [facility] [address] [place] [address] [employer]ist [employer]: Remy Haq DO Hematocrit (Bld) [Volume fraction] 22.4 % Low 36-46 [facility] Comment on above: Performed By: #### B MPX, CBC #### [facility] [address] [place] [address] [employer]ist Pharm[employer]: Remy Haq DO Hemoglobin (Bld) [Mass/Vol] 7.6 g/dL Low 12.0-16.0 [facility] Comment on above: Performed By: #### B MPX, CBC #### [facility] [place] [address] [employer]ist [employer]: Remy Haq DO MCH (RBC) [Entitic mass] 29.4 pg Normal 26-34 [facility] Comment on above: Performed By: #### B MPX, CBC #### [facility] [place] [address] [employer]ist [employer]: Remy Haq DO MCHC (RBC) [Mass/Vol] 33.8 g/dL Normal 31-37 [facility] Comment on above: Performed By: #### B MPX, CBC #### [facility] [address] [place] [address] [employer]: Remy Haq DO MCV (RBC) [Entitic vol] 87.1 fL Normal 80-100 [facility] Comment on above: Performed By: #### Adam MPX, CBC #### [facility] [address] [place] [address] [employer]: Remy Haq DO Platelet mean volume (Bld) [Entitic vol] 6.4 fL Normal 6.0-12.0 [facility] Comment on above: Performed By: #### B MPX, CBC #### [facility] [address] [place] [address] [employer]ist [employer]: Remy Haq DO Platelets (Bld) [#/Vol] 503 10*3/uL High 150-450 [facility] Comment on above: Performed By: #### B MPX, CBC #### [facility] [address] [place] [address] [employer]: Remy Haq DO RBC (Bld) [#/Vol] 2.57 10*6/uL Low 4.0-5.2 [facility] Comment on above: Performed By: #### B MPX, CBC #### [facility] [address] [place] [address] [employer]ist Pharm[employer]: Remy Haq DO WBC (Bld) [#/Vol] 7.5 10*3/uL Normal 3.5-11.0 [facility] Comment on above: Performed By: #### B MPX, CBC #### [facility] [address] [place] [address] [employer]ist [employer]: Remy Haq DO NRBC Automated NOT REPORTED Normal [facility] Comment on above: Performed By: #### B MPX, CBC #### [facility] [address] [place] [address] [employer]ist Pharm[employer]: Remy Haq DO Basic Metabolic Panel w/ Ref savanah to MGon 02-15-2019 Anion gap [Moles/Vol] 14 mmol/L 9 - 17 mmol/L [place] Bun/Cre Ratio NOT REPORTED [place] Calcium [Mass/Vol] 8.4 mg/dL Low 8.6 - 10. 4 mg/dL [place] Chloride [Moles/Vol] 102 mmol/L 98 - 10 7 mmol/L [place] CO2 [Moles/Vol] 24 mmol/L 20 - 31 mmol/L [place] Creatinine [Mass/Vol] 0.57 mg/dL 0.5 - 0.9 mg/dL [place] GFR >60 >60 mL/min [place] GFR Non- >60 >60 mL/min [place] GFR/1.73 sq M predicted among non-blacks MDRD (S/P/Bld) [Vol rate/Area] [place] Comment on above: Average GFR for 20-2 9 years old: 116 mL/min/1.73sq m Chronic Kidney Disease: <60 mL/min/1.73sq m Kidney failure: <15 mL/min/1.73sq m eGFR calculated using average adult body mass. Additional eGFR calculator available at: http://www.[employer]/multiple_crcl_2012.htm GFR/1.73 sq M predicted among non-blacks MDRD (S/P/Bld) [Vol rate/Area] NOT REPORTED [place] Glucose [Mass/Vol] 106 mg/dL High 70 - 99 mg/dL [place] Interpretation and review of laboratory results Abnormal [place] Potassium [Moles/Vol] 4.0 mmol/L 3.7 - 5.3 mmol/L [place] Sodium [Moles/Vol] 140 mmol/L 135 - 144 mmol/L [place] Urea nitrogen [Mass/Vol] 11 mg/dL 6 - 20 mg/dL [place] CBC WITH AUTO DIFFERENTIALon 02-15-2019 Basophils (Bld) [#/Vol] 0.06 10*3/uL [place] Basophils/100 WBC (Bld) 1 % 0 - 2 % [place] Differential Type NOT REPORTED [place] Eosinophils (Bld) [#/Vol] 0.33 10*3/uL [place] Eosinophils/100 WBC (Bld) 5 % High 1 - 4 % [place] Erythrocyte distribution width (RBC) [Ratio] 15.3 % High 11.8 - 14.4 % [place] Hematocrit (Bld) [Volume fraction] 24.9 % Low 36.3 - 47.1 % [place] Hemoglobin (Bld) [Mass/Vol] 7.5 g/dL Low 11.9 - 15.1 g/dL [place] Immature granulocytes (Bld) [#/Vol] 1 % High 0 [place] Immature granulocytes (Bld) [#/Vol] 0.10 10*3/uL [place] Interpretation and review of laboratory results Abnormal [place] Lymphocytes (Bld) [#/Vol] 1.93 10*3/uL [place] Lymphocytes/100 WBC (Bld) 27 % 24 - 43 % [place] MCH (RBC) [Entitic mass] 28.2 pg 25.2 - 33.5 pg [place] MCHC (RBC) [Mass/Vol] 30.1 g/dL 28.4 - 34.8 g/dL [place] MCV (RBC) [Entitic vol] 93.6 fL 82.6 - 102.9 fL [place] Monocytes (Bld) [#/Vol] 0.60 10*3/uL [place] Monocytes/100 WBC (Bld) 8 % 3 - 12 % [place] Platelet mean volume (Bld) [Entitic vol] 9.0 fL 8.1 - 13.5 fL [place] Platelets (Bld) [#/Vol] 458 10*3/uL [place] Platelets (Bld) [#/Vol] NOT REPORTED [place] RBC (Bld) [#/Vol] 2.66 10*6/uL Low 3.95 - 5.1 1 m/uL [place] RBC morphology finding Nom (Bld) ANISOCYTOSIS PRESENT [place] Segmented neutrophils/100 WBC (Bld) 58 % 36 - 65 % [place] Segs Absolute 4.19 [place] WBC (Bld) [#/Vol] 7.2 10*3/uL [place] WBC (Bld) [#/Vol] 0.0 10*3/uL 0.0 per 10 0 WBC [place] WBC Morphology NOT REPORTED [place] Basic Metabolic Panel w/ Ref savanah to MGon 02-13-2019 Anion gap [Moles/Vol] 13 mmol/L 9 - 17 mmol/L [place] Bun/Cre Ratio NOT REPORTED [place] Calcium [Mass/Vol] 8.5 mg/dL Low 8.6 - 10. 4 mg/dL [place] Chloride [Moles/Vol] 105 mmol/L 98 - 10 7 mmol/L [place] CO2 [Moles/Vol] 23 mmol/L 20 - 31 mmol/L [place] Creatinine [Mass/Vol] 0.46 mg/dL Low 0.5 - 0.9 mg/dL [place] GFR >60 >60 mL/min [place] GFR Non- >60 >60 mL/min [place] GFR/1.73 sq M predicted among non-blacks MDRD (S/P/Bld) [Vol rate/Area] NOT REPORTED [place] GFR/1.73 sq M predicted among non-blacks MDRD (S/P/Bld) [Vol rate/Area] [place] Comment on above: Average GFR for 20-2 9 years old: 116 mL/min/1.73sq m Chronic Kidney Disease: <60 mL/min/1.73sq m Kidney failure: <15 mL/min/1.73sq m eGFR calculated using average adult body mass. Additional eGFR calculator available at: http://www.[employer]/multiple_crcl_2012.htm Glucose [Mass/Vol] 86 mg/dL 70 - 99 mg/dL [place] Interpretation and review of laboratory results Abnormal [place] Potassium [Moles/Vol] 4.3 mmol/L 3.7 - 5.3 mmol/L [place] Sodium [Moles/Vol] 141 mmol/L 135 - 144 mmol/L [place] Urea nitrogen [Mass/Vol] 9 mg/dL 6 - 20 mg/dL [place] CBC WITH AUTO DIFFERENTIALon 02-13-2019 Basophils (Bld) [#/Vol] 0.06 10*3/uL [place] Basophils/100 WBC (Bld) 1 % 0 - 2 % [place] Differential Type NOT REPORTED [place] Eosinophils (Bld) [#/Vol] 0.40 10*3/uL [place] Eosinophils/100 WBC (Bld) 5 % High 1 - 4 % [place] Erythrocyte distribution width (RBC) [Ratio] 14.8 % High 11.8 - 14.4 % [place] Hematocrit (Bld) [Volume fraction] 25.0 % Low 36.3 - 47.1 % [place] Hemoglobin (Bld) [Mass/Vol] 7.4 g/dL Low 11.9 - 15.1 g/dL [place] Immature granulocytes (Bld) [#/Vol] 2 % High 0 [place] Immature granulocytes (Bld) [#/Vol] 0.14 10*3/uL [place] Interpretation and review of laboratory results Abnormal [place] Lymphocytes (Bld) [#/Vol] 2.18 10*3/uL [place] Lymphocytes/100 WBC (Bld) 25 % 24 - 43 % [place] MCH (RBC) [Entitic mass] 27.1 pg 25.2 - 33.5 pg [place] MCHC (RBC) [Mass/Vol] 29.6 g/dL 28.4 - 34.8 g/dL [place] MCV (RBC) [Entitic vol] 91.6 fL 82.6 - 102.9 fL [place] Monocytes (Bld) [#/Vol] 0.66 10*3/uL [place] Monocytes/100 WBC (Bld) 8 % 3 - 12 % [place] Platelet mean volume (Bld) [Entitic vol] 8.9 fL 8.1 - 13.5 fL [place] Platelets (Bld) [#/Vol] 440 10*3/uL [place] Platelets (Bld) [#/Vol] NOT REPORTED [place] RBC (Bld) [#/Vol] 2.73 10*6/uL Low 3.95 - 5.1 1 m/uL [place] RBC morphology finding Nom (Bld) ANISOCYTOSIS PRESENT [place] Segmented neutrophils/100 WBC (Bld) 61 % 36 - 65 % [place] Segs Absolute 5.37 [facility] [place], [place] WBC (Bld) [#/Vol] 0.0 10*3/uL 0.0 per 10 0 WBC Sammie Seymour BLAINE KELSEY WBC (Bld) [#/Vol] 8.8 10*3/uL [facility] W[facility] Morphology NOT REPORTED BLAINE Renae ECHO Complete 2D W Doppler W Coloron 02-13-2019 Transthoracic Echocardiography Report (TTE) Patient Name CECI PERKINS Date of Study 02/13/2019 C Date of 1995 Gender Female Age 23 year(s) Race Unknown Room Number 0240 Height: 65 inch, 165.1 cm Corporate ID [id number] Weight: 301 pounds, 136.5 kg # Patient Acct [id number] BSA: 2.35 m^2 BMI: 50.09 kg/m^2 # MR # [id number] Dermatologist Kaylen Jasso Interpreting Physician Anthony Keating Fellow Referring Nurse Practitioner Interpreting Referring Physician MICHAEL BULLOCK MD Fellow Type of Study TTE procedure:2D Echocardiogram, M-Mode, Doppler, Color Doppler. Procedure Date Date: 02/13/2019 Start: 08:48 AM Study Location: [facility] Technical Quality: Adequate visualization Indications:Irregula [...] seen. Signature Electronically signed by Anthony Keating([facility] physician) on 02/13/2019 02:00 PM [...] Wall E' velocity:0.17 m/s Lateral Wall E/E':5.8 [facility], [place] Tamir, pn Incoming Cardio Results From [facility]/ - 02/13/2019 2:01 PM EDT Transthoracic Echocardiography Report (TTE) Patient Name CECI PERKINS Date of Study 02/13/2019 C Date of 1995 Gender Female Age 23 year(s) Race Unknown Room Number 0240 Height: 65 inch, 165.1 cm Corporate ID [id number] Weight: 301 pounds, 136.5 kg # Patient Acct [id number] BSA: 2.35 m^2 BMI: 50.09 kg/m^2 # MR # [id number] Dermatologist Kaylen Jasso Interpreting Physician Anthony Keating Fellow Referring Nurse Practitioner Interpreting Referring Physician MICHAEL BULLOCK MD Fellow Type of Study TTE procedure:2D Echocardiogram, M-Mode, Doppler, Color Doppler. Procedure Date Date: 02/13/2019 Start: 08:48 AM Study Location: [facility] Technical Quality: Adequate visualization Indications:Irregula [...] Wall E' velocity:0.17 m/s Lateral Wall E/E':5.8 [place] EKG 12 Leadon 02-11-2019 Atrial Rate 99 BPM [place] P [place] 69 degrees [place] P-R Interval 136 ms [place] Q-T Interval 344 ms [place] QRS Duration 80 ms [place] QTc Calculation (Bazett) 441 ms [place] R [place] 16 degrees [place], [place] T [place] 4 degrees [place] Ventricular Rate 99 BPM [place] Tamir, Mhpn Incoming Ekg Results From [facility] - 02/11/2019 11:00 AM EDT Normal sinus rhythm Cannot rule out Anterior infarct , age undetermined Abnormal ECG When compared with ECG of 31-JAN-2019 19:55, No significant change was found [place] Normal sinus rhythm Cannot rule out Anterior infarct , age undetermined Abnormal ECG When compared with ECG of 31-JAN-2019 19:55, No significant change was found [place] HEMOGLOBIN AND HEMATOCRIT, B LOODon 02-11-2019 Hematocrit (Bld) [Volume fraction] 27.0 % Low 36.3 - 47.1 % [place] Hemoglobin (Bld) [Mass/Vol] 8.3 g/dL Low 11.9 - 15.1 g/dL [place] Interpretation and review of laboratory results Abnormal [place] Microscopic Urinalysison Amorphous, UA NOT REPORTED None [place], [place] Bacteria, UA NOT REPORTED None [place], [place] Casts UA [place] Crystals UA NOT REPORTED None /HPF [facility] [place] Epithelial Cells UA 0 TO 2 [place] Mucus, UA NOT REPORTED None [place], [place] Other Observations UA NOT REPORTED NOT REQ. [place] RBC (U) [#/Vol] 5 TO 10 [place], [place] Comment on above: Reference range defi xiomy for non-centrifuged specimen. Renal Epithelial, Urine NOT REPORTED 0 /HPF [place] Trichomonas, UA NOT REPORTED None [place], [place] WBC, UA TOO NUMEROUS TO COUNT [place] Yeast, UA NOT REPORTED None [place], [place] - [place] URINALYSISon 02-11-2019 Bilirubin Urine Negative NEGATIVE [place] Color, UA YELLOW YELLOW [place] Glucose, Ur Negative NEGATIVE [place] Interpretation and review of laboratory results Abnormal [place] Ketones Ql (U) Negative NEGATIVE [place] Leukocyte esterase Test strip Ql (U) LARGE Abnormal NEGATIVE [place] Nitrite, Urine Negative NEGATIVE [place] pH, UA 5.0 [place] Protein (U) [Mass/Vol] Negative NEGATIVE [place] Specific [place], UA 1.013 [place], [place] Turbidity UA CLOUDY Abnormal CLEAR [place] Urinalysis Comments NOT REPORTED [place] Urine Hgb MODERATE Abnormal NEGATIVE [place] Urobilinogen, Urine Normal Normal [place] HEMOGLOBIN AND HEMATOCRIT, B LOODon 02-10-2019 Hematocrit (Bld) [Volume fraction] 22.5 % Low 36.3 - 47.1 % [place] Hemoglobin (Bld) [Mass/Vol] 6.8 g/dL Critically low 11.9 - 15.1 g/dL [place] Interpretation and review of laboratory results Abnormal [place] TYPE AND SCREENon 02-10-2019 ABO/Rh Positive [place], [place] Arm Band Number [id number] [place], [place] Blood product type Nom (BPU) Leukocyte Reduced Red Cell [place] Crossmatch Result COMPATIBLE [place] Dispense Status TRANSFUSED [place], [place] Expiration Date 02/10/2019 [place] Transfusion Status OK TO TRANSFUSE [place] Unit Divison 0 [place], [place] Unit Number [id number] [place] CT PELVIS WO CONTRAST Additi onal Contrast? Noneon 02-09-2019 Tamir, pn Incoming Radiant Results From [facility] - 02/09/2019 12:47 PM EDT EXAMINATION: CT [...] extends anterior to the inferior pubic ramus. [place] EXAMINATION: CT OF THE PELVIS WITHOUT [...] chris edema and small foci of air. [place] 1. Improved alignment of the right posterior wall acetabular fracture status post ORIF. 2. Small intra-articular right hip loose bodies. 3. The long screw extends anterior to the inferior pubic ramus. [place] HEMOGLOBIN AND HEMATOCRIT, B [facility] 02-09-2019 Hematocrit (Bld) [Volume fraction] 19.2 % Low 36.3 - 47.1 % [place] Hemoglobin (Bld) [Mass/Vol] 5.9 g/dL Critically low 11.9 - 15.1 g/dL [place] Comment on above: TEST CONFIRMED Interpretation and review of laboratory results Abnormal [place] Hematocrit (Bld) [Volume fraction] 21.2 % Low 36.3 - 47.1 % [place] Hemoglobin (Bld) [Mass/Vol] 6.6 g/dL Critically low 11.9 - 15.1 g/dL [place] Comment on above: TEST CONFIRMED Interpretation and review of laboratory results Abnormal [place] Hematocrit (Bld) [Volume fraction] 23.6 % Low 36.3 - 47.1 % [place] Hemoglobin (Bld) [Mass/Vol] 7.2 g/dL Low 11.9 - 15.1 g/dL [place] Interpretation and review of laboratory results Abnormal [place] CV HGB/HCTon 02-08-2019 Hematocrit (Bld) [Volume fraction] 24.4 % [place] Hemoglobin (Bld) [Mass/Vol] 7.8 g/dL gm/dL [place] POCT urine pregnancyon 02-08 Beta HCG ( test) Ql (U) Negative NEGATIVE [place] Comment on above: Specimens with hCG [...] 02-08-2019 Tamir, pn Incoming Radiant Results From [facility] - 02/08/2019 1:24 PM EDT EXAMINATION: THREE XRAY VIEWS OF THE RIGHT FOOT 02/08/2019 1:12 pm COMPARISON: Right ankle radiographs February 01, 2019 HISTORY: ORDERING SYSTEM PROVIDED HISTORY: Trauma/Fracture TECHNOLOGIST PROVIDED HISTORY: Trauma/Fracture FINDINGS: No fracture or dislocation. IMPRESSION: No acute osseous abnormality [facility]: THREE XRAY VIEWS OF THE RIGHT FOOT 02/08/2019 1:12 pm COMPARISON: Right ankle radiographs February 01, 2019 HISTORY: ORDERING SYSTEM PROVIDED HISTORY: Trauma/Fracture TECHNOLOGIST PROVIDED HISTORY: Trauma/Fracture FINDINGS: No fracture or dislocation. [facility] No acute osseous abnormality [facility] X[facility] PELVIS (MIN 3 VIEWS)on EXAMINATION: ONE XRAY VIEW OF THE PELVIS 02/08/2019 12:48 pm COMPARISON: 01/31/2019 HISTORY: ORDERING SYSTEM PROVIDED HISTORY: AP,Judets. Post op pacu TECHNOLOGIST PROVIDED HISTORY: AP,Judets. Post op pacu FINDINGS: Status post internal fixation of the right acetabulum. Anatomic alignment. No hardware complications. [place] Tamir, pn Incoming Radiant Results From [facility] - 02/08/2019 12:57 PM EDT EXAMINATION: ONE XRAY VIEW OF THE PELVIS 02/08/2019 12:48 pm COMPARISON: 01/31/2019 HISTORY: ORDERING SYSTEM PROVIDED HISTORY: AP,Judets. Post op pacu TECHNOLOGIST PROVIDED HISTORY: AP,Judets. Post op pacu FINDINGS: Status post internal fixation of the right acetabulum. Anatomic alignment. No hardware complications. IMPRESSION: Anatomic alignment status post internal fixation of the right acetabulum [place] Anatomic alignment status post internal fixation of the right acetabulum [place] Tamir, pn Incoming Radiant Results From [facility] - 02/08/2019 12:49 PM EDT EXAMINATION: ONE [...] fluoroscopic image of pelvis as described above. [place] EXAMINATION: ONE XRAY VIEW OF THE PELVIS 02/08/2019 12:39 pm COMPARISON: January 31, 2019 HISTORY: ORDERING SYSTEM PROVIDED HISTORY: intra op TECHNOLOGIST PROVIDED HISTORY: intra op FINDINGS: Intraoperative fluoroscopic image of pelvis demonstrates ORIF of right acetabular fracture with plate and screws, likely in gross anatomic alignment. A Crawley catheter is in place. [place] Intraoperative fluoroscopic image of pelvis as described above. [place] XR WRIST LEFT (MIN 3 VIEWS)o n 02-08-2019 1. Overlying cast/splint material limits evaluation of fine osseous detail. 2. Anatomic alignment of known transversely oriented nondisplaced distal left radius metaphyseal fracture after reduction. 3. No superimposed acute osseous abnormality identified. 4. Soft tissue swelling about the left wrist/distal left forearm. [place] Tamir, [facility] Incoming Radiant Results From [facility] - 02/08/2019 6:06 PM EDT EXAMINATION: 3 [...] swelling about the left wrist/distal left forearm. [place] EXAMINATION: 3 XRAY VIEWS OF THE [...] the left wrist and distal left forearm. [place] BASIC METABOLIC PANELon 01-20 Anion gap [Moles/Vol] 12 mmol/L 9 - 17 mmol/L [place] Bun/Cre Ratio NOT REPORTED [place] Calcium [Mass/Vol] 8.5 mg/dL Low 8.6 - 10. 4 mg/dL [place] Chloride [Moles/Vol] 102 mmol/L 98 - 10 7 mmol/L [place] CO2 [Moles/Vol] 24 mmol/L 20 - 31 mmol/L [place] Creatinine [Mass/Vol] 0.54 mg/dL 0.5 - 0.9 mg/dL [place] GFR >60 >60 mL/min [place] GFR Non- >60 >60 mL/min [place] GFR/1.73 sq M predicted among non-blacks MDRD (S/P/Bld) [Vol rate/Area] NOT REPORTED [place] GFR/1.73 sq M predicted among non-blacks MDRD (S/P/Bld) [Vol rate/Area] [place] Comment on above: Average GFR for 20-2 9 years old: 116 mL/min/1.73sq m Chronic Kidney Disease: <60 mL/min/1.73sq m Kidney failure: <15 mL/min/1.73sq m eGFR calculated using average adult body mass. Additional eGFR calculator available at: http://www.[employer]/multiple_crcl_2012.htm Glucose [Mass/Vol] 95 mg/dL 70 - 99 mg/dL [place] Interpretation and review of laboratory results Abnormal [place] Potassium [Moles/Vol] 4.6 mmol/L 3.7 - 5.3 mmol/L [place] Sodium [Moles/Vol] 138 mmol/L 135 - 144 mmol/L [place] Urea nitrogen [Mass/Vol] 14 mg/dL 6 - 20 mg/dL [place] BLOOD BANK SPECIMENon 2018 Blood Bank Specimen NOT REPORTED [place] CBCon 02-07-2019 Erythrocyte distribution width (RBC) [Ratio] 13.5 % 11.8 - 14.4 % [place] Hematocrit (Bld) [Volume fraction] 28.1 % Low 36.3 - 47.1 % [place] Hemoglobin (Bld) [Mass/Vol] 8.4 g/dL Low 11.9 - 15.1 g/dL [place] Interpretation and review of laboratory results Abnormal [place] MCH (RBC) [Entitic mass] 26.7 pg 25.2 - 33.5 pg [place] MCHC (RBC) [Mass/Vol] 29.9 g/dL 28.4 - 34.8 g/dL [place] MCV (RBC) [Entitic vol] 89.2 fL 82.6 - 102.9 fL [place] Platelet mean volume (Bld) [Entitic vol] 8.6 fL 8.1 - 13.5 fL [place] Platelets (Bld) [#/Vol] 555 10*3/uL [place] RBC (Bld) [#/Vol] 3.15 10*6/uL Low 3.95 - 5.1 1 m/uL [place] WBC (Bld) [#/Vol] 0.0 10*3/uL 0.0 per 10 0 WBC [place] WBC (Bld) [#/Vol] 8.0 10*3/uL [place] HEMOGLOBIN AND HEMATOCRIT, B LOODon 02-05-2019 Hematocrit (Bld) [Volume fraction] 28.8 % Low 36.3 - 47.1 % [place] Hemoglobin (Bld) [Mass/Vol] 8.6 g/dL Low 11.9 - 15.1 g/dL [place] Interpretation and review of laboratory results Abnormal [place] Basic Metabolic Panel w/ Ref savanah to MGon 02-04-2019 Anion gap [Moles/Vol] 11 mmol/L 9 - 17 mmol/L [place] Bun/Cre Ratio NOT REPORTED [place] Calcium [Mass/Vol] 8.5 mg/dL Low 8.6 - 10. 4 mg/dL [place] Chloride [Moles/Vol] 108 mmol/L High 98 - 10 7 mmol/L [place] CO2 [Moles/Vol] 23 mmol/L 20 - 31 mmol/L [place] Creatinine [Mass/Vol] 0.52 mg/dL 0.5 - 0.9 mg/dL [place] GFR >60 >60 mL/min [place] GFR Non- >60 >60 mL/min [place] GFR/1.73 sq M predicted among non-blacks MDRD (S/P/Bld) [Vol rate/Area] NOT REPORTED [place] GFR/1.73 sq M predicted among non-blacks MDRD (S/P/Bld) [Vol rate/Area] [place] Comment on above: Average GFR for 20-2 9 years old: 116 mL/min/1.73sq m Chronic Kidney Disease: <60 mL/min/1.73sq m Kidney failure: <15 mL/min/1.73sq m eGFR calculated using average adult body mass. Additional eGFR calculator available at: http://www.[employer]y/multiple_crcl_2012.htm Glucose [Mass/Vol] 93 mg/dL 70 - 99 mg/dL [place] Interpretation and review of laboratory results Abnormal [place] Potassium [Moles/Vol] 4.7 mmol/L 3.7 - 5.3 mmol/L [place] Sodium [Moles/Vol] 142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 02-15-2019 08:59-0400 Respiratory Rate 18 /min Alejandrina [facility] [place] 01-31-2019 19:57-0400 BMI (Body Mass Index) 50.09 kg/m2 Alejandrina Centeno [place] 01-31-2019 19:57-0400 Body weight 136.53 kg Alejandrina [place] 01-31-2019 19:57-0400 Height 165.1 cm [place]jandrina [place] Encounters Encounter Date Encounter Type Care Provider Facility Start: 11-06-2024 End: 11-06-2024 Office outpatient visit 15 minutes Jordan Urbina MD Work Phone: [facility] Comment on above: History of sleeve ga strectomy (Primary Dx) Start: 11-06-2024 End: 11-06-2024 ambulatory ALLY CRAIG [facility] Start: 11-03-2024 End: 11-03-2024 Clinisync Result [...] Start: 10-22-2024 End: 10-22-2024 ambulatory [facility] Work Phone: Start: 10-22-2024 End: 10-22-2024 Patient encounter procedure [facility] Work Phone: Start: 10-20-2024 End: 10-20-2024 [facility] Start: 10-20-2024 End: 10-20-2024 Office outpatient visit 25 minutes Jordan Urbina MD Work Phone: [facility] Comment on above: History of sleeve ga strectomy (Primary Dx); Hx of supraventricular tachycardia Start: 10-11-2024 End: 10-11-2024 Bamboo flowsheet Carey Pena NP Work Phone: [facility] Start: 10-11-2024 End: 10-11-2024 Bamboo flowsheet Carey Pena [employer] Work Phone: [facility] Start: 10-11-2024 End: 10-11-2024 ambulatory CAREY PENA Not Available Start: 10-11-2024 End: 10-11-2024 flow sheet Carey Pena [employer] Work Phone: [facility] Comment on above: Third trimester preg belkis; 30 weeks gestation of Start: 10-05-2024 End: 10-05-2024 Office outpatient new 45 minutes Liang Fitzgerald MD Work Phone: [facility] Comment on above: Hx of supraventricul ar tachycardia (Primary Dx) Start: 10-05-2024 End: 10-27-2024 ambulatory [facility] Start: 09-29-2024 End: 09-29-2024 Orders Only Triny Morales RN [facility] Comment on above: History of sleeve ga strectomy (Primary Dx); Hx of supraventricular tachycardia; Encounter for follow-up ultrasound of anatomy; Encounter for anatomic survey Start: 09-28-2024 End: 09-28-2024 ambulatory [facility] Start: 09-26-2024 End: 09-26-2024 Bamboo flowsheet Cedric [...] Urbina MD Work Phone: [facility] Comment on above: History of sleeve ga strectomy (Primary Dx); Hx of supraventricular tachycardia Start: 08-24-2024 End: 08-24-2024 Orders Only Cindy Walton RN [facility] Comment on above: History of sleeve ga strectomy (Primary Dx); Hx of supraventricular tachycardia; Encounter for follow-up ultrasound of anatomy Start: 08-14-2024 End: 08-14-2024 Chart abstracting Jodran Urbina MD Work Phone: [facility] Start: 08-05-2024 End: 08-05-2024 Clinisync Result [...] patient 18-39 yrs Zoraida SEGOVIA Work Phone: [facility] Comment on above: Screening, , for anatomic survey; Well woman exam with routine gynecological exam; Second trimester ; Exposure to STD Start: 07-31-2024 End: 07-31-2024 ambulatory ZORAIDA TRAVIS Not Available Start: 07-23-2024 End: 07-24-2024 Refill Ally Craig SUBSTATION OPERATOR APPRENTICE-LINE APPLIANCE ASSEMBLER Work Phone: [facility] Comment on above: Chest cold; Acute cough; Wheezing Start: 07-16-2024 End: 07-17-2024 Refill Ally Craig SUBSTATION OPERATOR APPRENTICE-LINE APPLIANCE ASSEMBLER Work Phone: [facility] Comment on above: Lumbar disc herniati on Start: 07-05-2024 End: 07-07-2024 Clinisync Result Encounter Cedric Alana DO Work Phone: [facility] [place] External Department Unsolicited Start: 07-05-2024 End: 07-07-2024 Clinisync Result Encounter Cedric Alana DO Work Phone: [facility] External [facility] Unsolicited Start: 06-15-2024 End: 06-15-2024 Bamboo flowsheet Cedric Alana DO Work Phone: [facility] Start: 06-15-2024 End: 06-15-2024 Bamboo flowsheet Cedric Alana DO Work Phone: [facility] Start: 06-15-2024 End: 06-15-2024 flow sheet Cedric Alana DO Work Phone: [facility] Comment on above: , unspecifi ed gestational age; 15 weeks gestation of ; Second trimester ; H/O gastric sleeve Start: 06-15-2024 End: 06-15-2024 ambulatory CEDRIC ALANA Not Available Start: 06-06-2024 End: 06-06-2024 Clinisync Result Encounter Cedric Alana DO Work Phone: [facility] External Department Unsolicited Start: 06-06-2024 End: 06-06-2024 [...] Start: 05-02-2024 End: 05-04-2024 Refill Aranza Carballo SUBSTATION OPERATOR APPRENTICE-LINE APPLIANCE ASSEMBLER Work Phone: [facility] Comment on above: History of sleeve ga strectomy; Postsurgical malabsorption; Malnutrition following gastrointestinal surgery Start: 03-20-2024 End: 03-20-2024 Refill Aranza Carballo SUBSTATION OPERATOR APPRENTICE-LINE APPLIANCE ASSEMBLER Work Phone: [facility] Comment on above: History of sleeve ga strectomy; Postsurgical malabsorption; Malnutrition following gastrointestinal surgery; Vitamin B12 deficiency Start: 03-15-2024 End: 03-15-2024 [facility] Start: 03-15-2024 End: 03-15-2024 Office outpatient visit 25 minutes Ally Craig SUBSTATION OPERATOR APPRENTICE-LINE APPLIANCE ASSEMBLER Work Phone: [facility] Comment on above: History of sleeve ga strectomy (Primary Dx); Malnutrition following gastrointestinal surgery; Chronic fatigue; Sinus pressure; Lipid screening; Weight gain; Mixed anxiety and depressive disorder; BMI 39.0-39.9,adult Start: 03-15-2024 End: 03-15-2024 [facility] Comment on above: History of sleeve ga strectomy (Primary Dx); Postsurgical malabsorption; Malnutrition following gastrointestinal surgery; History of anemia Start: 02-15-2024 End: 02-16-2024 Orders Only Ally Craig SUBSTATION OPERATOR APPRENTICE-LINE APPLIANCE ASSEMBLER Work Phone: [facility] Comment on above: Lumbar disc herniati on Start: 01-25-2024 End: 01-25-2024 Telephone encounter Pat Cotter [facility] Start: 01-20-2024 End: 01-20-2024 [facility] Start: 01-20-2024 End: 01-20-2024 [facility] Comment on above: Dysuria (Primary Dx) Start: 12-27-2023 End: 12-28-2023 Telephone encounter Ally Craig SUBSTATION OPERATOR APPRENTICE-LINE APPLIANCE ASSEMBLER Work Phone: [facility] Start: 12-22-2023 End: 12-22-2023 Office outpatient visit 25 minutes Ally Craig SUBSTATION OPERATOR APPRENTICE-LINE APPLIANCE ASSEMBLER Work Phone: [facility] Comment on above: Lumbar disc herniati on (Primary Dx) Start: 12-22-2023 End: 12-22-2023 [facility] Start: 12-08-2023 End: 12-08-2023 ambulatory NON STAFF [facility] Work Phone: Start: 12-08-2023 End: 12-08-2023 Departed Referred [facility] [address] Work Phone: Start: 08-26-2023 End: 08-26-2023 Office outpatient new 45 minutes Doc Guevara MD Work Phone: [facility] Reconstructive/Plast ic Surgery Comment on above: History of sleeve ga strectomy; Localized adiposity Start: 08-26-2023 End: 08-26-2023 ambulatory DOC GUEVARA [facility] Start: 06-07-2023 End: 06-07-2023 [facility] Start: 06-05-2022 End: 06-08-2022 ambulatory ALLY CRAIG [facility] Start: 06-05-2022 End: 06-07-2022 Subsequent hospital visit by physician Eddie Interventional Radiologist [facility] Special Procedures Comment on above: Tear of right acetab ular labrum, initial encounter Start: 03-19-2022 End: 03-19-2022 ambulatory Jeane Canela Other [employer] Other Start: 03-19-2022 Telephone encounter Jeane dalal [facility] [place] Start: 05-24-2020 End: 05-25-[address] CEDRIC WARNER Facility: Start: 02-15-2019 End: 02-22-2019 Evaluation and management of inpatient TERRI Brooke AUGUSTIN [facility] Start: 01-31-2019 End: 02-15-2019 Evaluation and management of inpatient Alejandrina Centeno Work Phone: [address] Ortho/Med Surg Comment on above: Closed [...] et rgnt non-auto w/o micrscp Radha Gan SUBSTATION OPERATOR APPRENTICE-LINE APPLIANCE ASSEMBLER Work Phone: Start: 11-09-2022 Adult depression scr eening assessment Doc Guevara MD Work Phone: Start: 06-05-2022 Injection hip arthro graphy w/o anesthesia Mary A Mazariegos DO Work Phone: Start: 02-22-2019 INCENTIVE SPIROMETRY RT TERRI AUGUSTIN Start: 02-22-2019 INCENTIVE SPIROMETRY RT TERRI AUGUSTIN Start: 02-22-2019 INCENTIVE SPIROMETRY RT TERRI AUGUSTIN Start: 02-22-2019 NURSING COMMUNICATION S DANI AUGUSTIN Start: 02-22-2019 DISCHARGE PATIENT ROSALINDA AUUGSTIN Start: 02-22-2019 AMB REFERRAL TO OCCUPATIONAL THERAPY [...] TERRI DEMETRIA Start: 02-20-2019 INCENTIVE SPIROMETRY RT TRERI DEMETRIA Start: 02-20-2019 INCENTIVE SPIROMETRY RT TERRI [...] TERRI AUGUSTIN Start: 02-15-2019 IP CONSULT TO TEMPORARY STAFF ACCOUNTANT AL MEDICINE TERRI AUGUSTIN Start: 02-15-2019 IP [...] Radex foot complete minimum 3 views Chong Snagsta Work Phone: Start: 02-08-2019 Radiologic exam pelv is compl minimum 3 views Manuel Ziegler Work Phone: Start: 02-08-2019 CV HGB/HCT Donn Benavidez Work Phone: Start: 02-08-2019 Radiologic exam pelv is compl minimum 3 views Mary Pop Mazariegos Work Phone: Start: 02-08-2019 End: 02-08-2019 ACETABULUM OPEN REDUCTION INTERNAL FIXATION Mary Pop [employer] Work Phone: Start: 02-08-2019 Urine test visual color cmprsn meths Donn SmithReveal Work Phone: Start: 02-07-2019 BLOOD BANK SPECIMEN Ant michelle Lakeisha Benavidez Work Phone: Start: 02-07-2019 Blood typing serologic abo Cecilio Richards Work Phone: Start: 02-07-2019 Basic metabolic pane l calcium total [employer] Work Phone: Start: 02-07-2019 Blood count complete automated Chong Snagsta Work Phone: Start: 02-05-2019 Blood count hemoglobin [...] Radiologic examinati on femur minimum 2 views [employer] Work Phone: Start: 02-01-2019 Urinalysis microscop ic [...] 02-01-2019 25 hydroxy includes fractions if performed [place] Qian Work Phone: Start: 02-01-2019 Hepatic function panel [place] [employer] Work Phone: Start: 02-01-2019 Ct lumbar spine w/o contrast material Federico [place] Work Phone: Start: 02-01-2019 Ct thoracic spine w/ o contrast material Federico [place] Work Phone: Start: 02-01-2019 Ct thorax w/contrast material Federico [place] Work Phone: Start: 02-01-2019 Ct cervical spine w/ o contrast material Federico [place] Work Phone: Start: 02-01-2019 Ct head/brain w/o co ntrast material Federico [place] Work Phone: Start: 02-01-2019 Radiologic examinati on knee 3 views Leonel Butt Work Phone: Start: 02-01-2019 Radex wrist complete minimum 3 views [place] Q[place] Work Phone: Start: 02-01-2019 Radex wrist 2 views Mil o Qian Work Phone: Start: 02-01-2019 Radiologic examinati on femur minimum 2 views Leonel [place] Work Phone: Start: 02-01-2019 Radiologic examinati on tibia & fibula 2 views Leonel [place] Work Phone: Start: 02-01-2019 Radex hip unilateral with pelvis 2-3 views Leonel [place] Work Phone: Start: 02-01-2019 PULSE OXIMETRY, CONTINUOUS Federico [place] Work Phone: Start: 01-31-2019 END TIDAL CO2 CONTINUOUS Federico [place] Work Phone: Start: 01-31-2019 Radex hip unilateral with pelvis 2-3 views Federico [place] Work Phone: Start: 01-31-2019 Radex wrist complete minimum 3 views Federico [place] Work Phone: Start: 01-31-2019 Basic metabolic pane l calcium total Federico [place] Work Phone: Start: 01-31-2019 Blood count complete auto&auto difrntl wbc Federico [place] Work Phone: Start: 01-31-2019 Gonadotropin chorion ic qualitative Federico [place] Work Phone: Start: 01-31-2019 Ecg routine ecg w/le ast 12 lds i&r only Federico Plummer Work Phone: Start: 01-31-2019 EKG REPORT Hpf Kari eason Plan of Treatment Date Care Activity Detail Author Start: 07-31-2027 Screening for malign ant neoplasm of cervix [facility] Start: 11-06-2025 Adult BMI Screening [facility] Start: 10-05-2025 Adult BMI Screening Adult BMI Screen [facility] Start: 10-05-2025 Tobacco Screening Tobacco Screening [facility] Start: 09-29-2025 End: 09-29-2025 US MFM with or without consult US MFM with or without consult Imaging Routine History of sleeve gastrectomy Hx of supraventricular tachycardia Encounter for follow-up ultrasound of anatomy Encounter for anatomic survey Expected: 09/29/2025 (Approximate), Expires: 09/29/2025 [employer] Work Phone: Comment on above: Expected: 09/29/2025 (Approximate), Expires: 09/29/2025 Start: 08-24-2025 Adult BMI Screening Adult [facility] Screen [facility] Start: 08-24-2025 Tobacco Screening [facility] Scre[facility] Start: 08-24-2025 End: 08-24-2025 US MFM with or without consult US MFM with or without consult Imaging Routine History of sleeve gastrectomy Hx of supraventricular tachycardia Encounter for follow-up ultrasound of anatomy Expected: 08/24/2025 (Approximate), Expires: 08/24/2025 [employer] Work Phone: Comment on above: Expected: 08/24/2025 (Approximate), Expires: 08/24/2025 Start: 03-15-2025 Adult BMI Screening Adult [facility] Screen [facility] Start: 03-15-2025 Tobacco Screening [facility] Start: 02-19-2025 Influenza vaccination [facility] Start: 01-19-2025 Tobacco Screening [facility] Start: 12-21-2024 Adult BMI Screening Adult BMI Screen [facility] Start: 12-21-2024 Tobacco Screening Tobacco Screening [facility] Start: 11-18-2024 DTaP,Tdap and Td Vaccines (7 - Td or Tdap) DTaP,Tdap and Td Vaccines (7 - Td or Tdap) [facility] Start: 11-18-2024 DTaP/Tdap/Td vaccine (7 - Td or Tdap) DTaP/Tdap/Td vaccine (7 - Td or Tdap) [facility] Start: 11-18-2024 DTaP/Tdap/Td vaccine (7 - Td) DTaP/Tdap/Td vaccine (7 - Td) [facility] [place] Start: 11-10-2024 End: 11-10-2024 Patient encounter procedure 11/10/2024 9:15 AM EDT Office Visit [facility] [address] [place] [phone] Liang Fitzgerald MD [address] [place] [address] [facility] Start: 11-09-2024 End: 11-09-2024 Patient encounter procedure 11/09/2024 9:50 AM EDT Routine [facility] [address] [place] [phone] Zoraida Travis PA [address] [place] [address] [facility] Start: 11-06-2024 End: 11-06-2024 Patient encounter procedure 11/06/2024 11:00 AM EDT Appointment [facility] [address] [place] [phone] [facility] Start: 10-25-2024 End: 10-25-2024 [...] 9:45 AM EDT Telemedicine Maternal- Medicine at [facility] [address] [place] [address] Jordan Urbina MD [address], [address] [place] [address] M[facility]- Medicine at [facility] Start: 10-11-2024 End: 10-11-2024 Patient encounter procedure 10/11/2024 9:40 AM EDT Routine [facility] [address] [place] [phone] Zoraida Travis PA [address] [facility] [place] [address] [facility] Start: 10-05-2024 End: 10-05-2025 Wireless Telemetry (In Office) [facility] Work Phone: Comment on above: Expected: 10/05/2024 , Expires: 10/05/2025 Start: 10-05-2024 End: 10-05-2024 Patient encounter procedure 10/05/2024 8:30 AM EDT Office Visit [facility] [address] [place] [phone] Liang Fitzgerald MD [address] [place] [address] [facility] Start: 09-28-2024 End: 09-28-2024 Patient encounter procedure 09/28/2024 2:45 PM EDT Appointment [facility] Imaging [address] [place] [address] [facility] Start: 09-26-2024 End: 09-26-2024 Patient encounter procedure 09/26/2024 9:50 AM EDT Routine [facility] [address] [place] [phone] Cedric Warner DO [address] [place], [place] [id number] Arrived [facility] Comment on above: Arrived Start: 08-29-2024 End: 08-29-2024 Patient encounter procedure 08/29/2024 8:30 AM EDT Routine [facility] [address] [place] [phone] Zoraida Travis, PA [address] [place], [place] [id number] [facility] Start: 08-25-2024 Adult BMI Screening Adult BMI Screen ing [facility] Start: 08-25-2024 Tobacco Screening Tobacco Screening [facility] Start: 08-24-2024 End: 08-24-2024 Patient encounter procedure [facility] Start: 07-31-2024 End: 07-31-2025 US for US OB 14+ weeks anatomy scan Imaging Routine Screening, , for anatomic survey Expected: 07/31/2024, Expires: 07/31/2025 [facility] Comment on above: Expected: 07/31/2024 , Expires: 07/31/2025 Start: 07-31-2024 End: 07-31-2024 Patient encounter procedure 07/31/2024 11:30 AM EST Routine [facility] [address] [place] [phone] Zoraida Travis, PA [address] [place], [place] [phone] Arrived [facility] Comment on above: [...] AM EST Initial [facility] [address] [place] [address] [facility] Start: 05-29-2024 End: 05-29-2024 Professional / ancillary services management 05/29/2024 8:00 AM EST Ancillary Procedure [facility] [address] [place] [phone] [facility] Start: 05-17-2024 End: 05-17-2024 Patient encounter procedure 05/17/2024 7:40 AM EST Office Visit [facility] [address] [place] [address] [place] [phone] Ally Craig, SUBSTATION OPERATOR APPRENTICE-LINE APPLIANCE ASSEMBLER [address], [place] [address] [facility] Start: 05-11-2024 End: 05-11-2024 Patient encounter procedure 05/11/2024 1:30 PM EST Office Visit [facility] [address] [place] [phone] Giulia Samayoa PA-Joy [address] [place] [address] [facility] Start: 03-30-2024 End: 03-30-2024 Patient encounter procedure 03/30/2024 2:00 PM EDT Office Visit [facility] [address] [place] [phone] Giulia Samayoa PA-Joy [address] [place] [address] [facility] Start: 03-15-2024 End: [...] anemia Expected: 03/15/2024, Expires: 03/15/2025 [facility] Comment on above: Expected: 03/15/2024 , Expires: 03/15/2025 Start: 03-15-2024 End: 03-15-2025 Copper, S Copper, S Lab Routine History of sleeve 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 History of anemia Expected: 03/15/2024, Expires: 03/15/2025 [facility] Comment on above: Expected: 03/15/2024 , Expires: 03/15/2025 Start: 03-15-2024 End: 03-15-2025 Cyanocobalamin vitamin b-12 Vitamin B12 Lab Routine History of sleeve 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 History of anemia Expected: 03/15/2024, Expires: 03/15/2025 [facility] Comment on above: Expected: 03/15/2024 , Expires: 03/15/2025 Start: 03-15-2024 End: 03-15-2025 Ferritin [Mass/volume] in Serum or Plasma Ferritin Lab Routine History of sleeve 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 History of anemia Expected: 03/15/2024, Expires: 03/15/2025 [facility] Comment on above: Expected: 03/15/2024 , Expires: 03/15/2025 Start: 03-15-2024 End: 03-15-2025 Folate Folate Lab Routine History of sleeve 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 History of anemia Expected: 03/15/2024, Expires: 03/15/2025 [facility] Comment on above: Expected: 03/15/2024 , Expires: 03/15/2025 Start: 03-15-2024 End: 03-15-2025 Iron and TIBC Iron and TIBC Lab Routine History of sleeve 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 History of anemia Expected: 03/15/2024, Expires: 03/15/2025 [facility] Comment on above: Expected: 03/15/2024 , Expires: 03/15/2025 Start: 03-15-2024 End: 03-15-2025 Liver panel Liver panel Lab Routine History of sleeve 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 History of anemia Expected: 03/15/2024, Expires: 03/15/2025 [facility] Comment on above: Expected: 03/15/2024 , Expires: 03/15/2025 Start: 03-15-2024 End: 03-15-2025 Parathyroid Hormone, intact Parathyroid Hormone, intact Lab Routine History of sleeve 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 History of anemia Expected: 03/15/2024, Expires: 03/15/2025 [facility] Comment on above: Expected: 03/15/2024 , Expires: 03/15/2025 Start: 03-15-2024 End: 03-15-2025 Thiamin (Vitamin B1), WB Thiamin (Vitamin B1), WB Lab Routine History of sleeve 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 History of anemia Expected: 03/15/2024, Expires: 03/15/2025 [facility] Comment on above: Expected: 03/15/2024 , Expires: 03/15/2025 Start: 03-15-2024 End: 03-15-2025 Vitamin A (Retinol) Vitamin A (Retinol) Lab Routine History of sleeve 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 History of anemia Expected: 03/15/2024, Expires: 03/15/2025 [facility] Comment on above: Expected: 03/15/2024 , Expires: 03/15/2025 Start: 03-15-2024 End: 03-15-2025 Vitamin D 25 hydroxy Vitamin D 25 hydroxy Lab Routine History of sleeve 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 History of anemia Expected: 03/15/2024, Expires: 03/15/2025 [facility] Comment on above: Expected: 03/15/2024 , Expires: 03/15/2025 Start: 03-15-2024 End: 03-15-2025 Zinc, Serum Zinc, Serum Lab Routine History of sleeve 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 History of anemia Expected: 03/15/2024, Expires: 03/15/2025 [facility] Comment on above: Expected: 03/15/2024 , Expires: 03/15/2025 Start: 03-15-2024 End: 03-15-2024 Patient encounter procedure 03/15/2024 7:40 AM EDT Office Visit [facility] [address] [place] [phone] Ally Craig, SUBSTATION OPERATOR APPRENTICE-LINE APPLIANCE ASSEMBLER [address], [place] [address] [facility] Start: 02-20-2024 COVID-19 Vaccine ( season) COVID-19 Vaccine ( season) [facility] Start: 02-20-2024 COVID-19 Vaccine ( season) COVID-19 Vaccine ( season) [facility] Start: 02-20-2024 Influenza vaccination [facility] Start: 01-19-2024 End: 01-19-2024 Patient encounter procedure 01/19/2024 10:20 AM EDT Office Visit [facility] [address] [place] [phone] Ally Craig, SUBSTATION OPERATOR APPRENTICE-LINE APPLIANCE ASSEMBLER [address], [place] [address] [facility] Start: 11-16-2023 End: 11-16-2023 Patient encounter procedure 11/16/2023 10:00 AM EDT Office Visit [facility] [address] [place] [phone] Giulia Samayoa PA-C [address] [address] [facility] Start: 11-10-2023 Depression Screening Depression Scre ening [facility] Start: 02-19-2023 COVID-19 Vaccine ( season) COVID-19 Vaccine ( season) [facility] Start: 12-29-2022 Adult BMI Follow Up Plan Adult BMI Follow Up Plan [facility] Start: 11-19-2022 Adult BMI Follow Up Plan Adult BMI Follow Up Plan [facility] Start: 01-19-2022 Influenza vaccination Flu vaccine (# 1) [facility] Start: 04-25-2021 COVID-19 Vaccine (2 - Booster for Neel series) COVID-19 Vaccine (2 - Booster for Neel series) [facility] Start: 02-21-2019 End: 02-21-2019 Office Visit 02/21/2019 Office Visit Orthopedic Surgery Mary Mazariegos DO [address] [facility] [address] [place] [address] [phone] [facility] Start: 02-19-2019 Influenza vaccination Flu vaccine (# 1) [place], [place] Start: 2016 Cervical cancer screen Cervical canc er screen [place], [place] Start: 2016 Screening for malign ant neoplasm of cervix Pap smear [facility] Start: 2013 Adult BMI Follow Up Plan Adult BMI Follow Up Plan [facility] Start: 2011 Chlamydia screen Chlamydia screen [place], [place] Start: 2010 HIV screen HIV screen [place], [place] Start: 2010 HIV screening HIV screen [facility] Start: 2010 HPV vaccine (1 - Fem samuel 3-dose series) HPV vaccine (1 - Female 3-dose series) [place], [place] Start: 2008 Varicella Vaccine (1 of 2 - 13+ 2-dose series) Varicella Vaccine (1 of 2 - 13+ 2-dose series) [place], [place] Start: 2007 Depression Monitoring Depression Mon itoring [facility] Start: 2001 Pneumococcal 0-64 ye ars Vaccine (1 - PCV) Pneumococcal 0-64 years Vaccine (1 - PCV) [facility] Start: 2001 Pneumococcal 0-64 ye ars Vaccine (1 of 1 - PPSV23) Pneumococcal 0-64 years Vaccine (1 of 1 - PPSV23) [place], [place] Start: 1996 Varicella vaccine (1 of 2 - 2-dose childhood series) Varicella vaccine (1 of 2 - 2-dose childhood series) [facility] Bacteria identified in Urine by Culture Urine culture Microbiology Routine Missed menses Ordered: 05/29/2024 [facility] Comment on above: Ordered: 05/29/2024 End: 01-19-2025 Bacteria identified in Urine by Culture Urine culture (clean catch) Microbiology Routine Dysuria 1 Occurrences starting 01/20/2024 until 01/19/2025 [employer] Image by [employer]oke Work Phone: Comment on above: 1 Occurrences starti ng 01/20/2024 until 01/19/2025 CBC W Auto Different ial panel - Blood CBC and differential Lab Routine Missed menses , unspecified gestational age Ordered: 05/29/2024 [facility] Comment on above: Ordered: 05/29/2024 End: 03-15-2025 CBC W Auto Differential panel - Blood CBC auto differential Lab Routine 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 Chronic fatigue Sinus pressure 1 Occurrences starting 03/15/2024 until 03/15/2025 [employer] Work Phone: Comment on above: 1 Occurrences starti ng 03/15/2024 until 03/15/2025 CHLAMYDIA TRACHOMATI S (GENITO/STI) CHLAMYDIA TRACHOMATIS (GENITO/STI) Lab Routine Exposure to STD Ordered: 07/31/2024 [facility] Comment on above: Ordered: 07/31/2024 End: 03-15-2025 Comprehensive metabolic 2000 panel - Serum or Plasma Comprehensive metabolic panel Lab Routine 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 Chronic fatigue 1 Occurrences starting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
== END 2024-11-14 19:25 | disposition home or self-care (01) ==
LOC: LAB 19:24
PROVIDERS: PCP Nurse Practitioner; Visit Provider Obstetrics & Gynecology
DX: Z34.93 Encounter for supervision of normal pregnancy, unspecified, third trimester (principal); Z3A.35 35 weeks gestation of pregnancy
CPT/HCPCS: 87081

== ENCOUNTER 2024-11-17 14:54 | Outpatient (OUT) | payer OTHER, SELFPAY ==
--- NOTE | 2024-11-17 | US_ITS ---
[place] [id number] Patient Name: MADDIE ORNELAS MRN: [id number] date: 1995 Sex: F Assigned Patient Location: [facility] [place] Current Patient Location: [facility] [place] Accession/Order Number: [id number] Exam Date: 11/17/2024 15:43 Report Date: 11/17/2024 15:46 At the request of: ARMINDA WHITE DO Procedure: US OB BPP w non-stress Ultrasound biophysical profile HISTORY: History of gastric bypass. There is adequate breathing movement, gross body movement, tone and amniotic fluid volume for total score of 8 out of 8. The amniotic fluid index is 8.5 cm within normal limits. The heart rate is 139 bpm. US/US OB BPP w non-stress IMPRESSION: Adequate ultrasound biophysical profile. Impression dictated by: Anthony Diaz M.D. 11/17/2024 3:46 PM Dictation Location: [employer] Electronically authenticated by: [id number] Y Date: 11/17/2024 15:46
[2024-11-17 15:39] VITALS: BP 118/67; PULSE 95
== END 2024-11-17 16:02 | disposition home or self-care (01) ==
LOC: US 14:54 → FBC 15:01
PROVIDERS: PCP Nurse Practitioner; Visit Provider Obstetrics & Gynecology
DX: O26.893 Other specified pregnancy related conditions, third trimester (principal); O99.843 Bariatric surgery status complicating pregnancy, third trimester
CPT/HCPCS: 76818

== ENCOUNTER 2024-11-21 08:02 | Outpatient (OUT) | payer OTHER, SELFPAY ==
--- OUTSIDE RECORDS SUMMARY | 2023-09-30 06:30 | XMS_ITS ---
Author Organization [facility] vices Address [address], [place] [address] Care Team Providers Care Consumer Lending Manager Name Role Phone Kelli Hyde Unavailable [phone] Dionne Grande Unavailable [phone] REASON FOR VISIT 2 week f/u Medications [...] Problem Status W/U Status Risk Notes Problem [id number] Anxiety with depression (F41.8) Active confirmed Encounters Encounter Location Date Provider Diagnosis Main [address] [place], [place] [id number] 09/30/2023 Dionne Grande Bipolar disorder F31 .9 ; group home current use of antipsychotic medication Z79.899 and Anxiety with depression F41.8 Assessments Encounter Date Diagnosis (ICD Code) Assessment Notes Treatment Notes Treatment Clinical Notes Section Notes 09/30/2023 Bipolar disorder (ICD-10 - F31.9) needs improvement Schedule wellness with PCP. Obtain ordered labs. 09/30/2023 group home current use of antipsychotic medication (ICD-10 - [...] Next Appt Details Provider Name:Kelli Hyde , 11/22/2024 08:30:00 AM, [address] [place] [address], [id number], Progress Notes * Jana RAMANDOB:1995 ( 29 yo F)Acc No.[id number]:09/30/2023 Patient: Jana VEGA Provider: TENZIN CentenoPMikeBC :1995 A ge:28 Y S ex:Female Date:09/30/2023 Address:[address] [place], [place] [phone] Subjective: * Chief Complaints: * 1 . [...] Problems: * Billing Information: * Visit Code: 02239 Office Visit Est 10 -19 minutes. * Procedure Codes: Care Plan Details* * Electronic signature of TANYA Peters on 11/21/2024 at 08:05 AM EDT Sign off status: Pending * Provider: TANYA Centeno Date: 0 09/30/2023 Generated for Jc eason/William/Rony on: 11/21/2024 08:05 AM EDT
--- OUTSIDE RECORDS SUMMARY | 2024-01-07 05:00 | XMS_ITS ---
Author Organization [facility] Address [address] [place] [address] Care Team Providers Care Sales Development Representative Name Role Phone Pascale Mcmahon Unavailable [phone] REASON FOR VISIT LUMBAR PAIN Encounters Encounter Location Date Provider Diagnosis [facility] Office [address] [place] [address] [place] [address] 01/07/[address] Ruelas Lumbar back pain M54.50 Assessments Encounter Date Diagnosis (ICD Code) Assessment Notes Treatment Notes Treatment Clinical Notes Section Notes 01/07/2024 Lumbar back pain (ICD-10 - M54.50) Plan Of Treatment Pending Test Test Name Order Date Lumbar spine 2v flex and ext - 71228 Progress Notes * RE CULLENCA CDOB:1995 (29 yo F)Acc No.[id number]:01/07/2024 Patient: MADDIE VEGA Provider: Edwardo García MD, PhD :1995 A ge:28 Y S ex:Female Date:01/07/2024 Address:[address] [place], [place] [id number] Subjective: * Chief Complaints: * 1 . LUMBAR PAIN. * Medical History: Objective: * Vitals: Assessment: * Assessment: 1. L umbar back pain - M54.50 (Primary) Plan: * Treatment: Forms: * Images: * Electronic signature of Selv kasey St Jessenia MD, PHD on 11/21/2024 at 08:04 AM EDT Sign off status: Pending * Provider: Edwardo García MD, PhD Date: 01/07/2024 Generated for Printi ng/William/Lauraitting on: 0 11/21/2024 08:04 AM EDT
--- OUTSIDE RECORDS SUMMARY | 2024-11-06 10:39 | XMS_ITS | Encounter Summary ---
Author Organization [facility] tem Address [facility] [id number] [address] [place] [address] Care Team Providers Care Perinatal Nurse Name Role Phone Ally Craig SWIFT TENDER-PERCUSSION TUNER Primary Care Provi collin Reason for Referral * Diagnostic Imaging (Routine) - Pending Review Specialty Diagnoses / Procedures Referred By Violeta dalal Referred To Contact Maternal and Medicine Diagnoses History of sleeve gastrectomy Hx of supraventricular tachycardia Encounter for follow-up ultrasound of anatomy Encounter for anatomic survey Procedures US [facility] with or without consult Luis Angel Nguyen MD [address] [address] Phone: tel: fax: Maternal- Medicine at [facility] [address] [place] [address] Phone: tel: fax: Referral ID Status Reason Start Date Expiration Date V isits Requested Visits Authorized [id number] Pending Review 09/29/2024 09/29/2025 1 1 Reason for Visit * Diagnostic Imaging (Routine) - Pending Review Specialty Diagnoses / Procedures Referred By Violeta dalal Referred To Contact Maternal and Medicine Diagnoses History of sleeve gastrectomy Hx of supraventricular tachycardia Encounter for follow-up ultrasound of anatomy Encounter for anatomic survey Procedures [facility] with or without consult Luis Angel Nguyen MD [address] [facility] [place] [facility] [place] [place] [place], [address] [place] [address] Phone: tel: fax: Maternal- Medicine at [facility] [address] [place] [address] Phone: tel: fax: Referral ID Status Reason Start Date Expiration Date V isits Requested Visits Authorized [id number] Pending Review 09/29/2024 09/29/2025 1 1 Encounter Details Date Type Department Care Team (Latest Contact Info) Description 11/06/2024 10:39 AM EDT - 11/06/2024 11:59 PM EDT Hospital Encounter [facility] US Imaging [address] [place] [address] History of sleeve gastrectomy; Hx [...] Author D/C Home General Yes Yaneth Bright, SWIFT TENDER-PERCUSSION TUNER Note: Evaluation of progress towards goal: Pt plans to d/c home with self care and family support. documented as of this encounter Procedures Procedure Name Priority Date/Time Associated Diagnosis Comments US [facility] OB FOLLOW-UP, 1 FETUS Routine 11/06/2024 1:37 PM EDT History of sleeve gastrectomy Hx of supraventricular tachycardia Encounter for follow-up ultrasound of anatomy Encounter for anatomic survey documented in this encounter Results * US [facility] OB FOLLOW-UP, 1 FETUS (11/06/2024 1:37 PM EDT) Anatomical Region Laterality Modality OB-COUNTER WAITRESS/WAITER Ultrasound 11/06/2024 11:3 9 AM EDT Narrative 11/06/2024 3:01 PM EDT NAME: CECI PERKINS : 1995 SEX: F Accession Number: [id number] ORDERING PHYSICIAN: LUIS ANGEL NGUYEN REFERRING PHYSICIAN: ARMINDA WHITE Coding ----- --------- Procedures 93889: Follow-up Ultrasound, per fetus Indication ----- --------- Obesity in , Previous , Previous bariatric surgery, Screening for follow-up survey History ----- --------- OB History 7. Para 1 [id number] Maternal Assessment ----- --------- Physical Exam Height [...] EFW (oz) 15 oz EFW by: Hadlock (MIM-XB-[place]-FL) Extended Tibia 56.0 mm 32w 6d 26% Jody Billing And Insurance Coordinator 3.4 mm CM 9.1 mm 87% Nicolaides [...] Thorax RVOT view. LVOT view. 3-vessel view. 6-wnnrfu-feyvaii view. Situs. Aortic arch view. Bicaval view. [...] PERKINS : 1995 SEX: F Accession Number: [id number] ORDERING PHYSICIAN: LUIS ANGEL NGUYEN REFERRING PHYSICIAN: ARMINDA WHITE Coding ----- --------- Procedures [id number]: Follow-up Ultrasound, per fetus Indication ----- --------- Obesity in , Previous , Previous bariatric surgery,Screening for follow-up survey History ----- --------- OB History 7. Para 1 [id number] Maternal Assessment ----- --------- Physical Exam Height [...] EFW (oz) 15 oz EFW by: Hadlock (THE-MC-CG-FL) Extended Tibia 56.0 mm 32w 6d 26% Jody Billing And Insurance Coordinator 3.4 mm CM 9.1 mm 87% Nicolaides [...] Thorax RVOT view. LVOT view. 3-vessel view. 4-aifapt-oinzwnp view.Situs. Aortic arch view. Bicaval view. Interventricular [...] documented as of this encounter Care Teams Perinatal Nurse Relationship Specialty Start Date End Date Ally Craig, SWIFT TENDER-PERCUSSION TUNER [address], [place] [address] PCP - General Family Medicine 04/12/18 documented as of this encounter
--- OUTSIDE RECORDS SUMMARY | 2024-11-09 09:50 | XMS_ITS | Encounter Summary ---
Author Organization [facility] Address [address] [facility] [place] [address] Care Team Providers Care Ux Design Lead Name Role Phone Unavailable Primary Care Provider Unavailabl e Reason for Visit * Reason Comments Routine Visit Encounter Details Date Type Department Care Team (Late st Contact Info) Description 11/09/2024 9:50 AM EDT Routine [facility] BCP OB [address] [facility] [facility] [place] [address] Zoraida Travis PA [address] [place] [address] 35 weeks gestation of ; Third trimester [...] AM EDT Routine [facility] BCP OB [address] [facility] [place] [address] Zoraida Travis PA [address] [facility] [place] [address] documented as of this encounter Procedures Procedure [...]
--- OUTSIDE RECORDS SUMMARY | 2024-11-20 04:00 | XMS_ITS ---
Author Organization [facility] vices Address [address], [place] [id number] Care Team Providers Care Electrical Systems Drafter Name Role Phone Kelli Hyde Unavailable [phone] REASON FOR VISIT Bi Polar disorder Social History Sex Assigned At : Social History Observation Description Sex Assigned At Female Encounters Encounter Location Date Provider Diagnosis Main [address] [place] [id number] 11/20/2024 Kelli Hyde Plan Of Treatment Next Appt Details Provider Name:Kelli Hyde , 11/22/2024 08:30:00 AM, [address] [place], [place], [id number], Progress Notes * Herb RAMANB:1995 ( 29 yo F)Acc No.[id number]:11/20/2024 Patient: Jana VEGA Provider: TANYA Regalado :1995 A ge:29 Y S ex:Female Date:11/20/2024 Address:[address] [place], [place] [id number] Subjective: * Chief Complaints: * 1 . Bi Polar disorder. * Medical History: Objective: * Vitals: Assessment: Plan: * Treatment: Care Plan: * Problems: * Billing Information: * Visit Code: * Procedure Codes: Care Plan Details* * Electronic signature of TANYA Dixon on 11/21/2024 at 08:05 AM EDT Sign off status: Pending * Provider: TANYA Regalado Date: 0 11/20/2024 Generated for Jc eason/William/Rony on: 0 11/21/2024 08:05 AM EDT
--- OUTSIDE RECORDS SUMMARY | 2024-11-21 08:05 | XMS_ITS | Encounter Summary ---
Author Organization [facility] Address [address] [place] [address] Care Team Providers Care Spiritual Advisor Name Role Phone Unavailable Primary Care Provider Unavailabl e Encounter Details Date Type Department Care Team (Late st Contact Info) Description 05/13/2024 Clinisync Result Encounter [facility] External Department Unsolicited Arminda Warner DO [address] [facility] [address] [place], [place] [id number] Social History Tobacco Use Types Packs/Day Years [...] AM EDT Routine [facility] BCP OB [address] [place] [phone] Zoraida Travis PA [address] [place] [address] documented as of this encounter Procedures Procedure Name Priority Date/Time Associated Diagnosis Comments US OB TRANSVAGINAL 05/13/2024 8: 59 AM EST documented in this encounter Results * US OB TRANSVAGINAL (05/13/2024 8:59 AM EST) Anatomical Region Laterality Modality Other 05/13/2024 8:59 AM EST Narrative 05/13/2024 9:02 [place] [address] Ultrasound Report Signed Patient: MADDIE RAMAN MR#: [id number] : 1995 Acct:[id number] Age/Sex: 28 / F ADM Date: 05/13/24 Loc: US Attending Dr: Arminda Warner D.O. Ordering Physician: Arminda Warner D.O. Date of Service: 05/13/24 Procedure(s): US OB transvaginal Accession Number(s): [id number] cc: Arminda Warner D.O.; Ally Craig NP [place] [address] Patient Name: MADDIE RAMAN MRN: [id number] date: 1995 Sex: F Assigned Patient Location: US Current Patient Location: US Accession/Order Number: [id number] Exam Date: 05/13/2024 08:04 Report Date: 05/13/2024 [...] Signed By: 05/13/24 0902 DD/ 0859 TD/TT: Refrigeration Mechanic: Procedure Note Radiology, Radiologist, MD - 05/13/2024 [place] [address] Ultrasound Report Signed Patient: MADDIE RAMAN CMR#: [id number] : 1995Acct:[id number] Age/Sex: 28 / FADM Date: 05/13/24 Loc: US Attending Dr: Arminda Warner D.O. Ordering Physician: Arminda Warner D.O. Date of Service: 05/13/24 Procedure(s): US OB transvaginal Accession Number(s): [id number] cc: Arminda Warner D.O.; Ally Craig NP [address] [place] [address] Patient Name: MADDIE RAMAN MRN: [id number] date: 1995 Sex: F Assigned Patient Location: US Current Patient Location: US Accession/Order Number: [id number] Exam Date: 05/13/2024 08:04 Report Date: 05/13/2024 [...] M.D. Signed By:05/13/24 0902 DD/ 0859 TD/TT: Refrigeration Mechanic: us Arminda Warner DO [facility] Final Result documented in this encounter Visit Diagnoses Not on filedocumented in this encounter
--- OUTSIDE RECORDS SUMMARY | 2024-11-21 08:05 | XMS_ITS | Encounter Summary ---
Author Organization [facility] tem Address [facility] [place] [facility] [id number] [address] [place] [address] Care Team Providers Care Classification Officer Name Role Phone KiaraAlly stevenson METAL ALLOY SCIENTIST-SYSTEM PROGRAMMER Primary Care Provi collin Encounter Details Date Type Department Care Team (Late st Contact Info) Description 08/14/2024 Orders Only Maternal- Medicine at [facility] [address] [place] [address] Cedric Warner R, DO [address] [facility] [place] [address] Social History Tobacco Use Types Packs/Day Years [...] Author D/C Home General Yes Yaneth Bright, METAL ALLOY SCIENTIST-SYSTEM PROGRAMMER Note: Evaluation of progress towards goal: Pt [...] documented as of this encounter Care Teams Classification Officer Relationship Specialty Start Date End Date Ally Craig, METAL ALLOY SCIENTIST-SYSTEM PROGRAMMER [address], [place] [address] PCP - General Family Medicine 04/12/18 documented as of this encounter
--- OUTSIDE RECORDS SUMMARY | 2024-11-21 08:05 | XMS_ITS | Encounter Summary ---
Author Organization [employer] [facility] Address [id number] [address] [place] [address] Care Team Providers Care Affirmative Action Specialist Name Role Phone KiaraAlly stevenson NURSING ASSISTANTS TEACHER-BAT PERSON Primary Care Provi collin Reason for Visit * Reason Onset Date Comments Med Refill 11/20/2021 Encounter Details Date Type Department Care Team (Late st Contact Info) Description 11/20/2021 Refill [facility]-Bariatric [address] [facility] [facility] [address] [place] [address] Evelyn Flower CMA Social History [...] Author D/C Home General Yes Yaneth Bright APRN-BAT PERSON Note: Evaluation of progress towards goal: Pt plans to d/c home with self care and family support. documented as of this encounter Visit Diagnoses Not on filedocumented in this encounter Additional Health Concerns Assessment Noted Time PHQ-9 Depression Total Score: 0 04/01/20 21 11:14 AM EDT documented as of this encounter Care Teams Affirmative Action Specialist Relationship Specialty Start Date End Date Ally Craig, NURSING ASSISTANTS TEACHER-BAT PERSON [address], [place] [address] PCP - General Family Medicine 04/12/18 documented as of this encounter
--- OUTSIDE RECORDS SUMMARY | 2024-11-21 08:05 | XMS_ITS | Patient Health Record ---
Author Organization [facility] Address [address] [place] [address] Care Team Providers Care Gas Scrubber Operator Name Role Phone Pascale Mcmahon Unavailable [phone] Reason For Referral No Information Plan Of Treatment No Information Insurance Providers Payer Name Payer Address Payer Phone Subscriber Number Group Number Insured Name Patient Relationship to Insured Coverage Start Date Coverage End Date Medicaid [employer] [place] [address] [place] [phone] [id number] MADDIE ORNELAS Self - patient is the insured
--- OUTSIDE RECORDS SUMMARY | 2024-11-21 08:05 | XMS_ITS | Encounter Summary ---
Author Organization [facility] tem Address [facility] [id number] [address] [place] [address] Care Team Providers Care Liquid Hydrogen Plant Operator Name Role Phone Ally Craig PRECISION GRINDER-OIL AND GAS PRINCIPAL Primary Care Provi collin Encounter Details Date Type Department Care Team (Late st Contact Info) Description 08/24/2024 Orders Only Maternal- Medicine at [facility] [address] [place] [phone] Zoraida Butcher LPN Social History Tobacco Use [...] D/C Home General Yes Yaneth Bright APRN-OIL AND GAS PRINCIPAL Note: Evaluation of progress towards goal: Pt plans to d/c home with self care and family support. documented as of this encounter Visit Diagnoses Not on filedocumented in this encounter Additional Health Concerns Assessment Noted Time PHQ-9 Depression Total Score: 19 023 10:14 AM EDT documented as of this encounter Care Teams Liquid Hydrogen Plant Operator Relationship Specialty Start Date End Date Ally Craig, RAFA-OIL AND GAS PRINCIPAL [address], [place] [address] PCP - General Family Medicine 04/12/18 documented as of this encounter
--- OUTSIDE RECORDS SUMMARY | 2024-11-21 08:05 | XMS_ITS | Clinical Summary ---
Author Organization [email or web address] tem Address [facility] [id number] [address] [place] [address] Care Team Providers Care Manager Military Name Role Phone lAly Craig SOLAR/RENEWABLE ENERGY SALES-DENTIST/OWNER Primary Care Provi collin Allergies Active Allergy Reactions Criticality Noted Date Comments [place] Extract Anaphylaxis High 02/01/2019 Medications * This [...] (10/05/2017): Added automatically from request for surgery [id number] SVT (supraventricular tachycardia) 09/26/2017 10/01/2020 Encounters Date Type Department Care Team Description 11/15/2024 Refill Maternal- Medicine at [facility] [address] [address] Erlin Chung MD History of sleeve gastrectomy 11/06/2024 12:00 PM EDT Office Visit Maternal- Medicine at [facility] [address] [place] [address] Erlin Chung MD History of sleeve gastrectomy (Primary Dx) 11/06/2024 10:39 AM EDT - 11/06/2024 11:59 PM EDT Hospital Encounter [facility] Imaging [address] [place] [address] History of sleeve gastrectomy; Hx of supraventricular tachycardia; Encounter for follow-up ultrasound of anatomy; Encounter for anatomic survey Discharge Disposition: Home 11/06/2024 Travel 10/20/2024 8:45 AM EDT Telemedicine Maternal- Medicine at [facility] [address] [address] Erlin Chung MD History of sleeve gastrectomy (Primary Dx); Hx of supraventricular tachycardia 10/20/2024 Travel 10/05/2024 9:00 AM EDT Ancillary Procedure [facility] [address] [place] [phone] Hx of supraventricular tachycardia 10/05/2024 8:30 AM EDT Office Visit [facility] [address] [place] [phone] Ole Rojas MD Hx of supraventricular tachycardia (Primary Dx) 10/05/2024 Travel 09/29/2024 Orders Only Maternal- Medicine at [facility] [address] [place] [address] Triny Morales RN History of sleeve gastrectomy (Primary Dx); Hx of supraventricular tachycardia; Encounter for follow-up ultrasound of anatomy; Encounter for anatomic survey 09/28/2024 2:22 PM EDT - 09/28/2024 11:59 PM EDT Hospital Encounter [facility] [address] [place] [address] History of sleeve gastrectomy; Hx of supraventricular tachycardia; Encounter for follow-up ultrasound of anatomy Discharge Disposition: Home 09/28/2024 Travel 08/24/2024 9:00 AM EST Office Visit Maternal- Medicine at [facility] [address] [place] [address] Erlin Chung MD History of sleeve gastrectomy (Primary Dx); Hx of supraventricular tachycardia 08/24/2024 7:29 AM EST - 08/24/2024 11:59 PM EST Hospital Encounter [facility] [address] [place] [address] History of sleeve gastrectomy; Hx of supraventricular tachycardia; Encounter for anatomic survey Discharge Disposition: Home 08/24/2024 Orders Only Maternal- Medicine at [facility] [address] [place] [address] Zoraida Butcher LPN 08/24/2024 Orders Only Maternal- Medicine at [facility] [address] [place] [address] Cindy Walton RN History of sleeve gastrectomy (Primary Dx); [...] 7:43 AM EDT Respiratory Rate 20 04/26/2023 3:5 1 PM EST Oxygen Saturation 98% 03/15/2024 7:43 [...] Author D/C Home General Yes Yaneth Bright, SOLAR/RENEWABLE ENERGY SALES-DENTIST/OWNER Note: Evaluation of progress towards goal: Pt plans to d/c home with self care and family support. Medical Devices Implanted Type Area Research/Program Director Device Identifier Shelf Expiration Date Model / [...] period is included. Anatomical Region Laterality Modality OB-TODDLER GUIDE Ultrasound 11/06/2024 11:3 9 AM EDT Narrative 11/06/2024 3:01 PM EDT NAME: CECI PERKINS : 1995 SEX: F Accession Number: [id number] ORDERING PHYSICIAN: LUIS ANGEL NGUYEN REFERRING PHYSICIAN: ARMINDA WHITE Coding ----- --------- Procedures 74101: Follow-up Ultrasound, per fetus Indication ----- --------- Obesity in , Previous , Previous bariatric surgery, Screening for follow-up survey History ----- --------- OB History 7. Para 1 [id number] Maternal Assessment ----- --------- Physical Exam Height [...] EFW (oz) 15 oz EFW by: Hadlock (JEA-UT-LC-FL) Extended Tibia 56.0 mm 32w 6d 26% Jody Lime Sludge Kiln Operator 3.4 mm CM 9.1 mm 87% [...] Thorax RVOT view. LVOT view. 3-vessel view. 0-tffail-dxtyvzy view. Situs. Aortic arch view. Bicaval view. [...] 5.1 cm. Recommendations ----- --------- Please see [facility] documentation from today. anatomic survey is [...] PERKINS : 1995 SEX: F Accession Number: [id number] ORDERING PHYSICIAN: LUIS ANGEL NGUYEN REFERRING PHYSICIAN: ARMINDA WHITE Coding ----- --------- Procedures 92429: Follow-up Ultrasound, per fetus Indication ----- --------- Obesity in , Previous , Previous bariatric surgery,Screening for follow-up survey History ----- --------- OB History 7. Para 1 [id number] Maternal Assessment ----- --------- Physical Exam Height [...] EFW (oz) 15 oz EFW by: Hadlock (AWK-VD-TK-FL) Extended Tibia 56.0 mm 32w 6d 26% Jody Lime Sludge Kiln Operator 3.4 mm CM 9.1 mm 87% [...] Thorax RVOT view. LVOT view. 3-vessel view. 8-xwrptd-yojwrjv view.Situs. Aortic arch view. Bicaval view. Interventricular [...] as necessary. us Luis Angel Nguyen MD [facility] ORDERABLES Final Re sult * Wireless Telemetry [...] TRANSCRIBED RESULTS from Last [address] [place] [address] [place] [address] MEDICAID [place] [facility] MEDICAID Advance Directives * Full Code (Latest Code Status on File) Date Activated Date Inactivated Comments 11/10/2021 9:36 AM 11/11/2021 5:57 PM * Full Code Date Activated Date Inactivated Comments 04/24/2019 2:41 PM 04/27/2019 6:16 PM * Full Code Date Activated Date Inactivated Comments 09/26/2017 4:13 AM 10/03/2017 1:52 PM Care Teams Manager Military Relationship Specialty Start Date End Date Ally Craig, SOLAR/RENEWABLE ENERGY SALES-DENTIST/OWNER [address] [place] [address] PCP - General Family Medicine 04/12/18
--- OUTSIDE RECORDS SUMMARY | 2024-11-21 08:05 | XMS_ITS | Clinical Summary ---
Author Organization [facility] Address [address] [place] [address] Care Team Providers Care Supervisor Mechanic Boilermaking Name Role Phone Unavailable Primary Care Provider [...] Encounters Date Type Department Care Team Description 11/17/2024 Clinisync Result Encounter [facility] External Department Unsolicited Arminda Warner DO 11/14/2024 1:50 PM EDT Routine [facility] OB [address] [place] [address] [place] [address] Arminda Warner DO 35 weeks gestation of ; Third trimester 11/14/2024 Bamboo flowsheet [facility] OB [address] [place] [address] [place] [address] Arminda Warner, DO 11/10/2024 Clinisync Result Encounter [facility] External Department Unsolicited Arminda Warner, DO 11/09/2024 9:50 AM EDT Routine [facility] OB [address] [facility] [place] [address] Zoraida Travis, PA 35 weeks gestation of ; Third trimester 11/09/2024 Bamboo flowsheet [facility] OB [address] [place] [address] [place] [address] Zoraida Travis PA 11/08/2024 Abstract [facility] OB [address] [place] [address] [place] [address] Arminda Warner, DO 11/03/2024 Clinisync Result Encounter [facility] External Department Unsolicited Arminda Warner, DO 11/03/2024 Telephone [facility] OB [address] [place] [address] [place] [address] Celsa Co[place], [place] 11/02/2024 Refill [facility] OB [address] [place] [address] [place] [address] Zoraida Travis, PA H/O gastric sleeve 10/30/2024 Clinisync Result Encounter [facility] External Department Unsolicited Arminda Warner, DO 10/25/2024 2:20 PM EDT Routine [facility] [address] [place] [address] [place] [address] Arminda Warner, DO Third trimester ; 32 weeks gestation of ; H/O gastric sleeve 10/25/2024 Bamboo flowsheet [facility] [address] [place] [address] [place] [address] Arminda Warner, DO 10/11/2024 9:40 AM EDT Routine [facility] [address] [facility] [place] [address] Frances Pena, MOLINA Third trimester ; 30 weeks gestation of 10/11/2024 Bamboo flowsheet [facility] OB [address] [place] [address] [place] [address] Frances Pena NP 09/26/2024 9:50 AM EDT Routine [facility] OB [address] [facility] [place] [address] Arminda Warner DO Third trimester ; 28 weeks gestation of 09/26/2024 Bamboo flowsheet [facility] OB [address] [place] [address] [place] [address] Arminda Warner DO 09/22/2024 Abstract [facility] OB [address] [place] [address] [place] [address] Arminda Warner DO 09/09/2024 Clinisync Result Encounter [facility]S External Department Unsolicited Zoraida Travis PA 08/29/2024 8:30 AM EDT Routine [facility] OB [address] [place] [address] [place] [address] Zoraida Travis PA 25 weeks gestation of ; Second trimester ; Diabetes mellitus screening 08/29/2024 Bamboo flowsheet [facility] OB [address] [place] [address] [place] [address] Zoraida Travis PA 08/24/2024 Abstract [facility] OB [address] [place] [address] [place] [address] Arminda Warner DO from Last 3 Months Family History * [...] AM EDT Routine [facility] [address] [facility] [place] [address] Zoraida Travis PA [address] [place] [address] Health Maintenance Due Date Last Done Comments Influenza Vaccine (Season Ended) 2025 Procedures Procedure Name Priority Date/Time Associated Diagnosis Comments US OB BPP W NON-STRESS 11/17/2024 3:46 PM EDT POCT URINALYSIS DIPSTICK Routine 11/14/2024 2:12 PM [...] EST from Last 3 Months Results * US OB BPP W NON-STRESS (11/17/2024 3:46 PM EDT) Only the most recent of4 resultswithin the time period is included. Anatomical Region Laterality Modality Other 11/17/2024 3:46 PM EDT Narrative 11/17/2024 3:48 [place] [address] Ultrasound Report Signed Patient: MADDIE RAMAN MR#: [id number] : 1995 Acct:[id number] Age/Sex: 29 / F ADM Date: 11/17/24 Loc: [place] [address]- Attending Dr: Arminda Warner D.O. Ordering Physician: Arminda Warner D.O. Date of Service: 11/17/24 Procedure(s): US OB BPP w non-stress Accession Number(s): [id number] cc: Arminda Warner D.O.; Ally Craig NP [address] [address] Patient Name: MADDIE RAMAN MRN: [id number] date: 1995 Sex: F Assigned Patient Location: [facility] Current Patient Location: [facility] Accession/Order Number: [id number] Exam Date: 11/17/2024 15:43 Report Date: 11/17/2024 15:46 At the request of: ARMINDA WARNER DO Procedure: US OB BPP w non-stress Ultrasound biophysical profile HISTORY: History of gastric bypass. There is adequate breathing movement, gross body movement, tone and amniotic fluid volume for total score of 8 out of 8. The amniotic fluid index is 8.5 cm within normal limits. The heart rate is 139 bpm. US/US OB BPP w non-stress IMPRESSION: Adequate ultrasound biophysical profile. Impression dictated by: Anthony Daiz M.D. 11/17/2024 3:46 PM Dictation Location: [place] [address] Electronically authenticated by: [id number] Y Date: 11/17/2024 15:46 Dictated By: Anthony Diaz D.O. Signed By: 11/17/24 1548 DD/ 1546 TD/TT: Founder & Ceo: Procedure Note Radiology, Radiologist, MD - 11/17/2024 [place] [address] Ultrasound Report Signed Patient: MADDIE RAMAN CMR#: [id number] : 1995Acct:[id number] Age/Sex: 29 / FADM Date: 11/17/24 Loc: [facility] 250-[address]: Arminda Warner D.O. Ordering Physician: Arminda Warner D.O. Date of Service: 11/17/24 Procedure(s): US OB BPP w non-stress Accession Number(s): [id number] cc: Arminda Warner D.O.; Ally Craig NP The [address] [address] Patient Name: MADDIE RAMAN MRN: [id number] date: 1995 Sex: F Assigned Patient Location: [facility] Current Patient Location: [facility] Accession/Order Number: [id number] Exam Date: 11/17/2024 15:43 Report Date: 11/17/2024 15:46 At the request of: ARMINDA WARNER DO Procedure: US OB BPP w non-stress Ultrasound biophysical profile HISTORY: History of gastric bypass. There is adequate breathing movement, gross body movement, fetaltone and amniotic fluid volume for total score of 8 out of 8. The amnioticfluid index is 8.5 cm within normal limits. The heart rate is 139 bpm. US/US OB BPP w non-stress IMPRESSION: Adequate ultrasound biophysical profile. Impression dictated by: Anthony Diaz M.D. 11/17/2024 3:46 PM Dictation Location: [employer] Electronically authenticated by: [id number] Y Date: 5:46 Dictated By: Anthony Diaz D.O. Signed By:11/17/24 1548 DD/ 1546 TD/TT: Founder & Ceo: Arminda Warner DO [facility] Final Result * (ABNORMAL) POCT urinalysis dipstick manually resulted [...] - Positive Urine 11/14/2024 2:12 PM EDT Arminda Warner DO POINT OF CARE TEST ENTER/EDIT OR DERABLES Final Result * GLUCOSE 1 HOUR (09/09/2024 10:12 AM EDT) GLUCOSE 1 HOUR 98 <130 mg/dL [facility] 09/09/2024 10:1 2 AM EDT 09/09/2024 10:13 AM EDT Narrative [facility] - 09/09/2024 10:27 AM EDT Zoraida SEGOVIA LAB BLOOD ORDERABLES Final Resul t [facility] * (ABNORMAL) ALL CBC WITH AUTO DIFF (09/09/2024 10:12 AM EDT) [facility] WBC 7.1 4.0 - 11.0 10 3/uL [...] 09/09/2024 10:28 AM EDT us Zoraida SEGOVIA [facility] Final Result [facility] * US OB 14+ weeks anatomy scan (08/24/2024 12:47 PM EST) Anatomical Region Laterality Modality Body Ultrasound 08/24/2024 12:4 7 PM EST Narrative 08/24/2024 12:47 PM EST THIS EXAM WAS PERFORMED AT [facility] NAME: CECI PERKINS : 1995 SEX: F Accession Number: [id number] ORDERING PHYSICIAN: ARMINDA WARNER REFERRING PHYSICIAN: ARMINDA WARNER Coding ----- --------- Procedures 08503: Ultrasound, uterus, real time with image documentation, and maternal evaluation plus detailed anatomic examination, transabdominal approach;single or first gestation 94212: Transvaginal Ultrasound (OB) Indication ----- --------- Obesity in , Placenta previa, Screening for Anatomic Survey, Screening for cervical length History ----- --------- OB History 7. Para 1 [id number] Maternal Assessment ----- --------- Physical Exam Height [...] 1 lb 7 oz EFW by Hadlock ([id number]-FL) Head / Face / Neck Biometry: Cephalic index 0.69 <1% Nicolaides Distillery Miller Helper 4.2 mm CM 6.6 mm 70% Nicolaides [...] Maxilla. Mandible. Heart / Thorax LVOT view. 8-igpqws-chpcvuw view. Aortic arch view. Bicaval view. Ductal [...] 4.8 cm. Recommendations ----- --------- Please see [facility] documentation from today. The patient is scheduled in four to six week(s) to complete anatomic survey. Subsequent follow up or other follow up as clinically determined by primary OB provider unless otherwise specified by [facility]. Results forwarded to ordering provider so they can follow up with the patient as necessary. Procedure Note Radiology, Radiologist, - 08/24/2024 THIS EXAM WAS PERFORMED AT [facility] NAME: CECI PERKINS : 1995 SEX: F Accession Number: [id number] ORDERING PHYSICIAN: ARMINDA WARNER REFERRING PHYSICIAN: ARMINDA WARNER Coding ----- --------- Procedures 97294: Ultrasound, uterus, real time with imagedocumentation, and maternal evaluation plus detailed anatomic examination, transabdominalapproach;single or first gestation 27557: Transvaginal Ultrasound (OB) Indication ----- --------- Obesity in , Placenta previa, Screening for Anatomic Survey,Screening for cervical length History ----- --------- OB History 7. Para 1 [id number] Maternal Assessment ----- --------- Physical Exam Height [...] by LMP 35 w + 1 d MRELINE by LMP: 09/27/2024 GA by prior assessment [...] 1 lb 7 oz EFW by Hadlock ([id number]-TZ-[id number]-FL) Head / Face / Neck Biometry: Cephalic index 0.69 <1% [employer] Miller Helper 4.2 mm CM 6.6 mm 70% Nicolaides [...] Maxilla. Mandible. Heart / Thorax LVOT view. 1-fwxatr-mpilyfy view. Aortic arch view. Bicavalview. Ductal arch [...] 4.8 cm. Recommendations ----- --------- Please see [facility] documentation from today. The patient is [...] Resul t from Last [address] [place] [address] [place] [address] [employer] MEDICAID
--- OUTSIDE RECORDS SUMMARY | 2024-11-21 08:05 | XMS_ITS | Encounter Summary ---
Author Organization [facility] tem Address [id number] [address] [place] [address] Care Team Providers Care Battery Hand Name Role Phone Ally Craig APRN-STEWARD/STEWARDESS DINING ROOM Primary Care Provi collin Encounter Details Date Type Department Care Team (Late st Contact Info) Description 08/20/2021 Telephone [facility] [address] [place] [address] [place] [address] Leslie Deal CMA Social History [...] Author D/C Home General Yes Yaneth Bright, RAFA-STEWARD/STEWARDESS DINING ROOM Note: Evaluation of progress towards goal: Pt plans to d/c home with self care and family support. documented as of this encounter Visit Diagnoses Not on filedocumented in this encounter Additional Health Concerns Assessment Noted Time PHQ-9 Depression Total Score: 0 04/01/20 21 11:14 AM EDT documented as of this encounter Care Teams Battery Hand Relationship Specialty Start Date End Date Ally Craig APRN-STEWARD/STEWARDESS DINING ROOM [address], [place] [address] PCP - General Family Medicine 04/12/18 documented as of this encounter
--- OUTSIDE RECORDS SUMMARY | 2024-11-21 08:05 | XMS_ITS | Encounter Summary ---
Author Organization [facility] Address [address] [place] [address] Care Team Providers Care Licensed Direct Entry Midwife Name Role Phone Unavailable Primary Care Provider Unavailabl e Encounter Details Date Type Department Care Team (Late st Contact Info) Description 11/17/2024 Clinisync Result Encounter [facility] External Department Unsolicited Arminda Warner DO [address] [facility] [address] Cheng Velasquez, [facility] Social History Tobacco Use Types Packs/Day [...] AM EDT Routine [facility] [address] [facility] [place] [address] Zoraida Travis PA [address] [facility] [address] [place], [place] [address] documented as of this encounter Procedures Procedure Name Priority Date/Time Associated Diagnosis Comments US OB BPP W NON-STRESS 11/17/2024 3:46 PM EDT documented in this encounter Results * US OB BPP W NON-STRESS (11/17/2024 3:46 PM EDT) Anatomical Region Laterality Modality Other 11/17/2024 3:46 PM EDT Narrative 11/17/2024 3:48 [place] [address] Ultrasound Report Signed Patient: MADDIE RAMAN MR#: [id number] : 1995 Acct:[id number] Age/Sex: 29 / F ADM Date: 11/17/24 Loc: [facility] 250-[address]: Arminda Warner D.O. Ordering Physician: Arminda Warner D.O. Date of Service: 11/17/24 Procedure(s): US OB BPP w non-stress Accession Number(s): [id number] cc: Arminda Warner D.O.; Ally Craig NP [place] [address] Patient Name: MADDIE RAMAN MRN: [id number] date: 1995 Sex: F Assigned Patient Location: [facility] Current Patient Location: [facility] Accession/Order Number: [id number] Exam Date: 11/17/2024 15:43 Report Date: 11/17/2024 [...] Diaz M.D. 11/17/2024 3:46 PM Dictation Location: [place] [address] Electronically authenticated by: [id number] Y Date: 11/17/2024 15:46 Dictated By: Anthony Diaz D.O. Signed By: 11/17/24 1548 DD/ 154 TD/TT: Bi Lead: Procedure Note Radiology, Radiologist, - 11/17/2024 [place] [address] Ultrasound Report Signed Patient: MADDIE RAMAN CMR#: [id number] : 1995Acct:[id number] Age/Sex: 29 / FADM Date: 11/17/24 Loc: [facility] 250-[address]: Arminda Warner D.O. Ordering Physician: Arminda Warner D.O. Date of Service: 11/17/24 Procedure(s): US OB BPP w non-stress Accession Number(s): [id number] cc: Arminda Warner D.O.; Ally Craig NP The [place] [address] Patient Name: MADDIE RAMAN MRN: [id number] date: 1995 Sex: F Assigned Patient Location: [facility] Current Patient Location: [facility] Accession/Order Number: [id number] Exam Date: 11/17/2024 15:43 Report Date: 11/17/2024 [...] Diaz M.D. 11/17/2024 3:46 PM Dictation Location: [facility] Electronically authenticated by: [id number] Y Date: 5:46 Dictated By: Anthony Diaz D.O. Signed By:11/17/24 1548 DD/ 154 TD/TT: Bi Lead: Arminda Warner DO [facility] Final Result documented in this encounter Visit Diagnoses Not on filedocumented in this encounter
--- OUTSIDE RECORDS SUMMARY | 2024-11-21 08:05 | XMS_ITS | Encounter Summary ---
Author Organization [facility] tem Address [id number] [address] [place] [address] Care Team Providers Care Converter Skimmer Name Role Phone Ally Craig SUPERINTENDENT TRANSPORTATION-ROTARY ADJUSTER Primary Care Provi collin Reason for Referral * Diagnostic Imaging (Routine) - Pending Review Specialty Diagnoses / Procedures Referred By Violeta dalal Referred To Contact Maternal and Medicine Diagnoses History of sleeve gastrectomy Hx of supraventricular tachycardia Encounter for anatomic survey Procedures US [facility] with or without consult Cedric Warner DO [address] [place] [address] [place] [address] Phone: tel: fax: Maternal- Medicine at [facility] [address] [place] [address] Phone: tel: fax: Referral ID Status Reason Start Date Expiration Date V isits Requested Visits Authorized [id number] Pending Review 08/11/2024 08/11/2025 1 1 Encounter Details Date Type Department Care Team (Late st Contact Info) Description 08/11/2024 Orders Only Maternal- Medicine at [facility] [address] [place] [address] CMA History of [...] Author D/C Home General Yes Yaneth Bright, SUPERINTENDENT TRANSPORTATION-ROTARY ADJUSTER Note: Evaluation of progress towards goal: Pt plans to d/c home with self care and family support. documented as of this encounter Results * [facility] COMPREHENSIVE ANATOMIC SURVEY (08/24/2024 9:48 AM EST) Anatomical Region Laterality Modality OB-JUMP IRON MACHINE PRESSER Ultrasound 08/24/2024 7:49 AM EST Narrative 08/24/2024 12:47 PM EST NAME: CECI PERKINS : 1995 SEX: F Accession Number: [id number] ORDERING PHYSICIAN: CEDRIC WARNER REFERRING PHYSICIAN: CEDRIC WARNER Coding ----- --------- Procedures 07883: Ultrasound, uterus, real time with image documentation, and maternal evaluation plus detailed anatomic examination, transabdominal approach;single or first gestation 09266: Transvaginal Ultrasound (OB) Indication ----- --------- Obesity in , Placenta previa, Screening for Anatomic Survey, Screening for cervical length History ----- --------- OB History 7. Para 1 [id number] Maternal Assessment ----- --------- Physical Exam Height [...] 1 lb 7 oz EFW by Hadlock (EMA-AQ-WZ-FL) Head / Face / Neck Biometry: Cephalic index 0.69 <1% Nicolaides Boat Builder And Repairer 4.2 mm CM 6.6 mm 70% Nicolaides [...] Maxilla. Mandible. Heart / Thorax LVOT view. 8-qhjnuz-xemmofh view. Aortic arch view. Bicaval view. Ductal [...] 4.8 cm. Recommendations ----- --------- Please see [facility] documentation from today. The patient is scheduled in four to six week(s) to complete anatomic survey. Subsequent follow up or other follow up as clinically determined by primary OB provider unless otherwise specified by [facility]. Results forwarded to ordering provider so they can follow up with the patient as necessary. Procedure Note Erlin Chung MD - 08/24/2024 NAME: CECI PERKINS : 1995 SEX: F Accession Number: [id number] ORDERING PHYSICIAN: CEDRIC WARNER REFERRING PHYSICIAN: CEDRIC WARNER Coding ----- --------- Procedures 98857: Ultrasound, uterus, real time with imagedocumentation, and maternal evaluation plus detailed anatomic examination, transabdominalapproach;single or first gestation 48179: Transvaginal Ultrasound (OB) Indication ----- --------- Obesity in , Placenta previa, Screening for Anatomic Survey,Screening for cervical length History ----- --------- OB History 7. Para 1 [id number] Maternal Assessment ----- --------- Physical Exam Height [...] 1 lb 7 oz EFW by Hadlock ([id number]-FN-[id number]-FL) Head / Face / Neck Biometry: Cephalic index 0.69 <1% Nicolaides Boat Builder And Repairer 4.2 mm CM 6.6 mm 70% Nicolaides [...] Maxilla. Mandible. Heart / Thorax LVOT view. 3-sdsngj-qrgrezq view. Aortic arch view. Bicavalview. Ductal arch [...] as necessary. us Cedric R Alana DO [facility] US ORDERABLES Final Result documented in this encounter Visit Diagnoses Diagnosis History of sleeve gastrectomy- Primary Hx of supraventricular tachycardia Encounter for anatomic survey History of sleeve gastrectomy Hx of supraventricular tachycardia Encounter for anatomic survey documented in this encounter Additional Health Concerns Assessment Noted Time PHQ-9 Depression Total Score: 19 023 10:14 AM EDT documented as of this encounter Care Teams Converter Skimmer Relationship Specialty Start Date End Date Ally Craig APRN-ROTARY ADJUSTER [address], [place] [address] PCP - General Family Medicine 04/12/18 documented as of this encounter
--- OUTSIDE RECORDS SUMMARY | 2024-11-21 08:05 | XMS_ITS | Encounter Summary ---
Author Organization [facility] Address [address] [place] [address] Care Team Providers Care Blade Changer Name Role Phone Unavailable Primary Care Provider Unavailabl e Encounter Details Date Type Department Care Team (Late st Contact Info) Description 11/10/2024 Clinisync Result Encounter [facility] External Department Unsolicited Arminda Warner DO [address] [facility] [address] Cheng Velasquez, [facility] Social History Tobacco Use Types Packs/Day Years [...] AM EDT Routine [facility] [address] [facility] [place] [address] Zoraida Travis PA [address] [facility] [address] [place], [place] [address] documented as of this encounter Procedures Procedure Name Priority Date/Time Associated Diagnosis Comments US OB BPP W NON-STRESS 11/10/2024 3:48 PM EDT documented in this encounter Results * US OB BPP W NON-STRESS (11/10/2024 3:48 PM EDT) Anatomical Region Laterality Modality Other 11/10/2024 3:48 PM EDT Narrative 11/10/2024 3:50 [place] [address] Ultrasound Report Signed Patient: MADDIE RAMAN MR#: [id number] : 1995 Acct:[id number] Age/Sex: 29 / F ADM Date: 11/10/24 Loc: [facility] 252-[address]: Arminda Warner D.O. Ordering Physician: Arminda Warner D.O. Date of Service: 11/10/24 Procedure(s): US OB BPP w non-stress Accession Number(s): [id number] cc: Arminda Warner D.O.; Ally Craig NP [place] [address] Patient Name: MADDIE RAMAN MRN: [id number] date: 1995 Sex: F Assigned Patient Location: [facility] Current Patient Location: [facility] Accession/Order Number: [id number] Exam Date: 11/10/2024 15:47 Report Date: 11/10/2024 [...] Diaz M.D. 11/10/2024 3:48 PM Dictation Location: [place] [address] Electronically authenticated by: [id number] Y Date: 11/10/2024 15:48 Dictated By: Anthony Diaz D.O. Signed By: 11/10/24 1550 DD/ 1548 TD/TT: Image Assembler: Procedure Note Radiology, Radiologist, - 11/10/2024 [place] [address] Ultrasound Report Signed Patient: MADDIE RAMAN CMR#: [id number] : 1995Acct:[id number] Age/Sex: 29 / FADM Date: 11/10/24 Loc: [facility] 252-[address]: Arminda Warner D.O. Ordering Physician: Arminda Warner D.O. Date of Service: 11/10/24 Procedure(s): US OB BPP w non-stress Accession Number(s): [id number] cc: Arminda Warner D.O.; Ally Craig NP The [place] [address] Patient Name: MADDIE RAMAN MRN: [id number] date: 1995 Sex: F Assigned Patient Location: [facility] Current Patient Location: [facility] Accession/Order Number: [id number] Exam Date: 11/10/2024 15:47 Report Date: 11/10/2024 [...] Diaz M.D. 11/10/2024 3:48 PM Dictation Location: [facility] Electronically authenticated by: [id number] Y Date: 5:48 Dictated By: Anthony Diaz D.O. Signed By:11/10/24 1550 DD/ 1548 TD/TT: Image Assembler: us Arminda Warner DO [facility] Final Result documented in this encounter Visit Diagnoses Not on filedocumented in this encounter
--- OUTSIDE RECORDS SUMMARY | 2024-11-21 08:05 | XMS_ITS | Encounter Summary ---
Author Organization [facility] Address [address] [place] [address] Care Team Providers Care Disulfurizer Tender Name Role Phone Unavailable Primary Care Provider Unavailabl e Encounter Details Date Type Department Care Team (Late st Contact Info) Description 11/14/2024 Bamboo flowsheet [facility] [address] [facility] [place] [address] Cedric Warner, DO [address] [facility] [address] Cheng Velasquez, [facility]11 Social History Tobacco Use Types Packs/Day [...] [facility] OB [address] [facility] [place] [address] Zoraida Travis PA [address] [facility] [address] [place], [place] [address] documented as of this encounter Visit Diagnoses Not on filedocumented in this encounter
--- OUTSIDE RECORDS SUMMARY | 2024-11-21 08:05 | XMS_ITS | Encounter Summary ---
Author Organization [facility] Address [id number] [address] [place] [address] Care Team Providers Care Telephone Information Clerk Name Role Phone KiaraAlly stevenson APRN-TABLE ATTENDANT Primary Care Provi collin Encounter Details Date Type Department Care Team (Late st Contact Info) Description 09/25/2021 Orders Only [facility] General [facility]-B[facility]ric [address] [facility] [place] [phone] Evelyn Flower CMA Social History Tobacco Use [...] Author D/C Home General Yes Yaneth Bright, RAFA-TABLE ATTENDANT Note: Evaluation of progress towards goal: Pt plans to d/c home with self care and family support. documented as of this encounter Visit Diagnoses Not on filedocumented in this encounter Additional Health Concerns Assessment Noted Time PHQ-9 Depression Total Score: 0 04/01/20 21 11:14 AM EDT documented as of this encounter Care Teams Telephone Information Clerk Relationship Specialty Start Date End Date Ally Craig, RAFA-TABLE ATTENDANT [address], [place] [address] PCP - General Family Medicine 04/12/18 documented as of this encounter
--- OUTSIDE RECORDS SUMMARY | 2024-11-21 08:05 | XMS_ITS | Encounter Summary ---
Author Organization [facility] Address [address] [place] [address] Care Team Providers Care Roof Fitter Name Role Phone Unavailable Primary Care Provider Unavailabl e Encounter Details Date Type Department Care Team (Late st Contact Info) Description 11/09/2024 Bamboo flowsheet [facility] OB [address] [facility] [place] [phone] Zoraida Travis PA [address] [place] [address] Dr [place], [facility]11 Social History Tobacco Use Types Packs/Day [...] [address] [facility] [place] [address] Zoraida Travis PA [address] [facility] [address] [place], [place] [id number] documented as of this encounter Visit Diagnoses Not on filedocumented in this encounter
--- OUTSIDE RECORDS SUMMARY | 2024-11-21 08:05 | XMS_ITS | Encounter Summary ---
Author Organization [facility] [email or web address] Sys tem Address [facility][id number] [address] [place] [address] Care Team Providers Care Actuarial Science Professor Name Role Phone Ally Craig DRY GOODS INSPECTOR-STEAM PLANT RECORDS CLERK Primary Care Provi collin Encounter Details Date Type Department Care Team (Late st Contact Info) Description 03/29/2024 Telephone [facility] General Surgery-B[facility]ric [address] [address] Lauren Arndt MD [address] [place] [address] Social History Tobacco Use Types [...] Author D/C Home General Yes Yaneth Bright APRN-STEAM PLANT RECORDS CLERK Note: Evaluation of progress towards goal: Pt plans to d/c home with self care and family support. documented as of this encounter Visit Diagnoses Not on filedocumented in this encounter Additional Health Concerns Assessment Noted Time PHQ-9 Depression Total Score: 19 023 10:14 AM EDT documented as of this encounter Care Teams Actuarial Science Professor Relationship Specialty Start Date End Date Ally Craig, DRY GOODS INSPECTOR-STEAM PLANT RECORDS CLERK [address] [place], [place] [address] PCP - General Family Medicine 04/12/18 documented as of this encounter
--- OUTSIDE RECORDS SUMMARY | 2024-11-21 08:05 | XMS_ITS | Encounter Summary ---
Author Organization [facility] Address [address] [place] [address] Care Team Providers Care Uniformer Name Role Phone Unavailable Primary Care Provider Unavailabl e Encounter Details Date Type Department Care Team (Late st Contact Info) Description 11/08/2024 Abstract [facility] OB [address] [place] [address] Cedric Warner DO [address] [facility] [address] Cheng Velasquez, [id number] Social History Tobacco Use Types Packs/Day Years [...] AM EDT Routine [facility] OB [address] [place] [address] Zoraida Travis PA [address] [facility] [place] [address] documented as of this encounter Visit Diagnoses Not on filedocumented in this encounter
--- OUTSIDE RECORDS SUMMARY | 2024-11-21 08:05 | XMS_ITS | Encounter Summary ---
Author Organization [facility] Address [address] [place] [address] Care Team Providers Care Tool Profiling Machine Set Up Operator Name Role Phone Unavailable Primary Care Provider Unavailabl e Encounter Details Date Type Department Care Team (Late st Contact Info) Description 08/17/2024 Orders Only [facility] OB [address] [facility] [place] [address] Elena Constantino MA [address] [facility] [place] [address] Social History Tobacco Use Types Packs/Day Years [...] EDT Routine [facility] OB [address] [facility] [place] [address] Zoraida Travis PA [address] [facility] [address] [place], [place] [id number] documented as of this encounter Procedures Procedure [...]
--- OUTSIDE RECORDS SUMMARY | 2024-11-21 08:05 | XMS_ITS | Encounter Summary ---
Author Organization [facility] Address [address] [place] [address] Care Team Providers Care Editor Farm Journal Name Role Phone Unavailable Primary Care Provider Unavailabl e Encounter Details Date Type Department Care Team (Late st Contact Info) Description 09/22/2024 Abstract [facility] OB [address] [facility] [place] [address] Cedric Warner DO [address] [facility] [address] Cheng Velasquez, [facility]11 Social History Tobacco Use Types Packs/Day Years [...] AM EDT Routine [facility] OB [address] [facility] [place] [address] Zoraida Travis PA [address] [facility] [place] [address] documented as of this encounter Visit Diagnoses Not on filedocumented in this encounter
--- OUTSIDE RECORDS SUMMARY | 2024-11-21 08:05 | XMS_ITS | Encounter Summary ---
Author Organization [facility] tem Address [facility]-[id number] [address] [place] [address] Care Team Providers Care Pollution Control Technician Name Role Phone Ally Craig NAVAL SCIENCE TEACHER-HEALTHCARE ASSOCIATE Primary Care Provi collin Encounter Details Date Type Department Care Team (Late st Contact Info) Description 06/08/2022 Orders Only [facility] Family Medicine [address] [place] [address] [place] [address] External, Scanning Provider Social History [...] Author D/C Home General Yes Yaneth Bright, NAVAL SCIENCE TEACHER-HEALTHCARE ASSOCIATE Note: Evaluation of progress towards goal: Pt [...] documented as of this encounter Care Teams Pollution Control Technician Relationship Specialty Start Date End Date Ally Craig, RAFA-HEALTHCARE ASSOCIATE [address], [place] [address] PCP - General Family Medicine 04/12/18 documented as of this encounter
--- OUTSIDE RECORDS SUMMARY | 2024-11-21 08:05 | XMS_ITS | Encounter Summary ---
Author Organization [facility] Address [address] [place] [address] Care Team Providers Care Casting House Worker Name Role Phone Unavailable Primary Care Provider Unavailabl e Encounter Details Date Type Department Care Team (Late st Contact Info) Description 08/24/2024 Abstract [facility] OB [address] [facility] [place] [address] Cedric Warner DO [address] [facility] [address] Cheng Velasquez, [facility]11 Social History Tobacco Use Types Packs/Day Years [...] AM EDT Routine [facility] OB [address] [facility] [place] [address] Zoraida Travis PA [address] [facility] [place] [place] [address] documented as of this encounter Visit Diagnoses Not on filedocumented in this encounter
--- OUTSIDE RECORDS SUMMARY | 2024-11-21 08:05 | XMS_ITS | Encounter Summary ---
Author Organization [facility] tem Address [facility] [place]-[id number] [address] [place] [address] Care Team Providers Care Spa Director/Finance Name Role Phone Ally Craig EDUCATIONAL INSTITUTION PRESIDENT-ROAD TESTER Primary Care Provi collin Reason for Visit * Reason Comments Med Change Request Encounter Details Date Type Department Care Team (Late st Contact Info) Description 11/15/2024 Refill Maternal- Medicine at [facility] [address] [place] [address] Erlin Chung MD [address] [facility], [address] [place] [address] History of sleeve gastrectomy Social History Tobacco Use Types Packs/Day Years [...] Author D/C Home General Yes Yaneth Bright, EDUCATIONAL INSTITUTION PRESIDENT-ROAD TESTER Note: Evaluation of progress towards goal: Pt plans to d/c home with self care and family support. documented as of this encounter Visit Diagnoses Diagnosis History of sleeve gastrectomy documented in this encounter Additional Health Concerns Assessment Noted Time PHQ-9 Depression Total Score: 19 023 10:14 AM EDT documented as of this encounter Care Teams Spa Director/Finance Relationship Specialty Start Date End Date Ally Craig, EDUCATIONAL INSTITUTION PRESIDENT-ROAD TESTER [address], [place] [address] PCP - General Family Medicine 04/12/18 documented as of this encounter
--- OUTSIDE RECORDS SUMMARY | 2024-11-21 08:05 | XMS_ITS | Encounter Summary ---
Author Organization [facility] Address [address] [place] [address] Care Team Providers Care Manager Field Service Name Role Phone Unavailable Primary Care Provider Unavailabl e Encounter Details Date Type Department Care Team (Late st Contact Info) Description 06/06/2024 Abstract [facility] OB [address] [facility] [place] [address] Cedric Warner DO [address] [facility] [address] Cheng Velasquez, [facility]11 Social History Tobacco Use Types [...] AM EDT Routine [facility] OB [address] [facility] [place] [address] Zoraida Travis PA [address] [facility] [place] [address] documented as of this encounter Visit Diagnoses Not on filedocumented in this encounter
--- OUTSIDE RECORDS SUMMARY | 2024-11-21 08:06 | XMS_ITS | Encounter Summary ---
Author Organization [facility] Address [facility]-[id number] [address] [place] [address] Care Team Providers Care Avionics Manager Name Role Phone KiaraAlly stevenson KNIFEMAN-PIECE CUTTER Primary Care Provi collin Encounter Details Date Type Department Care Team (Late st Contact Info) Description 12/17/2020 Orders Only [facility] General Surgery-Bariatric [address] [facility] [place] [phone] External, Scanning Provider Social History Tobacco Use [...] Author Hus[place]/C Home General Yes Yaneth Bright, KNIFEMAN-PIECE CUTTER Note: Evaluation of progress towards goal: Pt plans to d/c home with self care and family support. documented as of this encounter Procedures Procedure Name Priority Date/Time Associated Diagnosis Comments PAP SMEAR Routine 12/17/2020 documented in this encounter Results * PAP SMEAR (12/17/2020) us Scanning Provider External NC PROFESSIONAL SERVI LINDA Final Result MANUALLY TRANSCRIBED RESULTS documented in this encounter Visit Diagnoses Not on filedocumented in this encounter Additional Health Concerns Infection Onset Date Last Indicated Resolved Time COVID-19 Rule-Out 05/27/2021 05/27/2021 05/28/2021 7:43 PM EST Assessment Noted Time PHQ-9 Depression Total Score: 0 01/22/20 20 2:00 PM EDT documented as of this encounter Care Teams Avionics Manager Relationship Specialty Start Date End Date Ally Craig, KNIFEMAN-PIECE CUTTER [address], [place] [address] PCP - General Family Medicine 04/12/18 documented as of this encounter
--- OUTSIDE RECORDS SUMMARY | 2024-11-21 08:06 | XMS_ITS | Encounter Summary ---
Author Organization [facility] tem Address [facility]-[id number] [address] [place] [address] Care Team Providers Care Trim Die Maker Name Role Phone Ally Craig ARTIFICIAL BREEDING RANCH SUPERVISOR-POWER TRUCK DRIVER Primary Care Provi collin Encounter Details Date Type Department Care Team (Late st Contact Info) Description 03/27/2021 Telephone [facility] Family Medicine [address] [place] [address] [place] [address] Ally Craig, ARTIFICIAL BREEDING RANCH SUPERVISOR-POWER TRUCK DRIVER [address] [facility] B, [place] [address] Social History Tobacco Use Types [...] documented as of this encounter Care Teams Trim Die Maker Relationship Specialty Start Date End Date Ally Craig APRN-CNP [address], [place] [address] PCP - General Family Medicine 04/12/18 documented as of this encounter
--- OUTSIDE RECORDS SUMMARY | 2024-11-21 08:06 | XMS_ITS | Encounter Summary ---
Author Organization [facility] Address [address] [place] [address] Care Team Providers Care Diet Technician Registered Name Role Phone Unavailable Primary Care Provider Unavailabl e Encounter Details Date Type Department Care Team (Late st Contact Info) Description 06/27/2024 Abstract [facility] OB [address] [facility] [place] [address] Felicita Wyatt LPN Social History Tobacco [...] Description 11/22/2024 9:50 AM EDT Routine [facility] OB [address] [facility] [address] Zoraida Travis PA [address] [place] [address] Dr [place], [facility]11 documented as of this encounter Visit Diagnoses Not on filedocumented in this encounter
--- OUTSIDE RECORDS SUMMARY | 2024-11-21 08:06 | XMS_ITS | Encounter Summary ---
Author Organization [facility] [employer] [facility] tem Address [facility] [id number] [address] [place] [address] Care Team Providers Care Dampener Name Role Phone KiaraAlly stevenson HEAD WRESTLING COACH-ENVIRONMENTAL ANALYST Primary Care Provi collin Encounter Details Date Type Department Care Team (Late st Contact Info) Description 11/06/2020 [facility]phone [facility] [address] [place] [address] [place] [address] Yong Veliz CMA Social History [...] documented as of this encounter Care Teams Dampener Relationship Specialty Start Date End Date Ally Craig APRN-CNP [address], [place] [address] PCP - General Family Medicine 04/12/18 documented as of this encounter
--- OUTSIDE RECORDS SUMMARY | 2024-11-21 08:06 | XMS_ITS | Encounter Summary ---
Author Organization [employer] s tem Address [facility]-[id number] [address] [place] [address] Care Team Providers Care Accounting Supervisor Name Role Phone Ally Craig APRN-UNDERGROUND SUPERVISOR Primary Care Provi collin Reason for Visit * Reason Onset Date Comments Med Refill 04/30/2020 Encounter Details Date Type Department Care Team (Late st Contact Info) Description 04/30/2020 Telephone [facility] Family Medicine [address] [place] [address] [place] [address] Nataly Caballero CMA Med Refill [...] Author D/C Home General Yes Yaneth Bright, STATISTICAL GENETICIST-UNDERGROUND SUPERVISOR Note: Evaluation of progress towards goal: Pt [...] documented as of this encounter Care Teams Accounting Supervisor Relationship Specialty Start Date End Date Ally Craig, RAFA-UNDERGROUND SUPERVISOR [address], [place] [address] PCP - General Family Medicine 04/12/18 documented as of this encounter
--- OUTSIDE RECORDS SUMMARY | 2024-11-21 08:06 | XMS_ITS | Clinical Summary ---
Author Organization [facility] Address [address] [place] [address] Care Team Providers Care Managed Care Analyst Name Role Phone Ally Craig APRN - GREASE BUFFER Primary Care Pro vider Allergies Active Allergy Reactions Criticality Noted Date Comments [place] Extract Anaphylaxis High 02/01/2019 Medications vitamin D (ERGOCALCIFEROL ) 68494 units CAPS capsule Take 1 capsule by [...] this topic Medical Devices Implanted Type Area Rollout Manager Device Identifier Shelf Expiration Date Model / Serial / Lot Plate Recon 3.5mm Low Prof 6h Implanted:Qty : 1 on 02/08/2019 by Ernesto Levine DO at [facility] Screw/Pl ate/Nail /Blane Right: Acetabulum SYNTHES-PMM [id number] / / Screw Cortx Slftp Fthrd 3.5x32mm Implanted:Qty : 1 on 02/08/2019 by Ernesto Levine DO at [facility] Screw/Pl ate/Nail /Blane Right: Acetabulum SYNTHES-PMM [id number] / / Screw Cortx Slftp Fthrd 3.5x34mm Implanted:Qty : 1 on 02/08/2019 by Ernesto Levine DO at [facility] Screw/Pl ate/Nail /Blane Right: Acetabulum SYNTHES-PMM [id number] / / Screw Cortx Slftp Fthrd 3.5x40mm Implanted:Qty : 1 on 02/08/2019 by Ernesto Levine DO at [facility] Screw/Pl ate/Nail /Blane Right: Acetabulum SYNTHES-PMM [id number] / / Screw Cortx Fthrd Slftp Ss 3.5x80mm Implanted:Qty : 1 on 02/08/2019 by Ernesto Levine DO at [facility] Screw/Pl ate/Nail /Blane Right: Acetabulum SYNTHES-PMM [id number] / / Explanted Type Area Rollout Manager Device Identifier Shelf Expiration Date Model / Serial / Lot Pin Explanted:Qty: 1 on 02/08/2019 at [facility] Description:thrown in sharps container [employer] Retentioner Explanted:Qty: 1 on 02/08/2019 at [facility] Description:recyled Insurance [facility] [place] [address] [place] [address] [place] GENERIC AUTO INS[place] [address] [facility] GENERIC AUTO INSURANCE GENERIC AUTO INSURANCE [facility] [place] GENERIC [...] 4:31 AM 02/15/2019 1:50 PM Care Teams Managed Care Analyst Relationship Specialty Start Date End Date Ally Craig, EXERCISE MANAGER - GREASE BUFFER [address] [place] [address] PCP - General Nurse Practitioner 01/31/19
--- OUTSIDE RECORDS SUMMARY | 2024-11-21 08:06 | XMS_ITS | Encounter Summary ---
Author Organization [facility] Address [address] [place] [address] Care Team Providers Care Business Management Intern Name Role Phone Unavailable Primary Care Provider Unavailabl e Encounter Details Date Type Department Care Team (Late st Contact Info) Description 06/15/2024 Abstract [facility] OB [address] [facility] [place] [address] Cedric Warenr DO [address] [facility] [address] Cheng Velasquez, [facility]11 Social History Tobacco Use Types Packs/Day [...] AM EDT Routine [facility] OB [address] [facility] [place] [address] Zoraida Travis PA [address] [facility] [place] [address] documented as of this encounter Visit Diagnoses Not on filedocumented in this encounter
--- OUTSIDE RECORDS SUMMARY | 2024-11-21 08:06 | XMS_ITS | Encounter Summary ---
Author Organization [employer] s tem Address [facility][id number] [address] [place] [address] Care Team Providers Care Underground Distribution Engineer Name Role Phone Ally Craig JOB DEVELOPMENT SPECIALIST-STARCHMAKER Primary Care Provi collin Encounter Details Date Type Department Care Team (Late st Contact Info) Description 07/23/2022 [facility]phone [facility] [address] [place] [address] [place] [address] Gi Motley CMA Social History [...] Author D/C Home General Yes Yaneth Bright, JOB DEVELOPMENT SPECIALIST-STARCHMAKER Note: Evaluation of progress towards goal: Pt plans to d/c home with self care and family support. documented as of this encounter Visit Diagnoses Not on filedocumented in this encounter Additional Health Concerns Assessment Noted Time PHQ-9 Depression Total Score: 0 04/01/20 21 11:14 AM EDT documented as of this encounter Care Teams Underground Distribution Engineer Relationship Specialty Start Date End Date Ally Craig, JOB DEVELOPMENT SPECIALIST-STARCHMAKER [address], [place] [address] PCP - General Family Medicine 04/12/18 documented as of this encounter
--- OUTSIDE RECORDS SUMMARY | 2024-11-21 08:06 | XMS_ITS | Encounter Summary ---
Author Organization [facility] Address [address] [place] [address] Care Team Providers Care Screen Printing Inspector Name Role Phone Unavailable Primary Care Provider Unavailabl e Encounter Details Date Type Department Care Team (Late st Contact Info) Description 07/31/2024 Abstract [facility] OB [address] [facility] [place] [address] Cedric Warner DO [address] [facility] [address] Cheng Velasquez, [facility]11 Social History Tobacco Use Types Packs/Day Years [...] OB [address] [facility] [place] [address] Zoraida Travis PA [address] [facility] [place] [address] documented as of this encounter Visit Diagnoses Not on filedocumented in this encounter
--- OUTSIDE RECORDS SUMMARY | 2024-11-21 08:06 | XMS_ITS | Encounter Summary ---
Author Organization [facility] tem Address [facility]-[id number] [address] [place] [address] Care Team Providers Care Thread Machine Operator Name Role Phone KiaraAlly stevenson PATIENT CONSUMER MARKETER-ADMINISTRATIVE OFFICE ASSISTANT Primary Care Provi collin Encounter Details Date Type Department Care Team (Late st Contact Info) Description 10/09/2020 [facility] [address] [place] [address] [place] [address] Yong Veliz CMA Social History [...] Author D/C Home General Yes Yaneth Bright, PATIENT CONSUMER MARKETER-ADMINISTRATIVE OFFICE ASSISTANT Note: Evaluation of progress towards goal: [...] documented as of this encounter Care Teams Thread Machine Operator Relationship Specialty Start Date End Date Ally Craig, PATIENT CONSUMER MARKETER-ADMINISTRATIVE OFFICE ASSISTANT [address], [place] [address] PCP - General Family Medicine 04/12/18 documented as of this encounter
--- NOTE | 2024-11-21 08:13 | US_ITS ---
[place] [id number] Patient Name: MADDIE ORNELAS MRN: [id number] date: 1995 Sex: F Assigned Patient Location: [facility] Current Patient Location: Accession/Order Number: [id number] Exam Date: 11/21/2024 08:56 Report Date: 11/21/2024 08:59 At the request of: ARMINDA WHITE DO Procedure: US OB amniotic fluid vol ULTRASOUND OB AMNIOTIC FLUID VOLUME COMPARISON: 11/17/2024 CLINICAL DATA: Oligohydramnios There is a single live intrauterine gestation in cephalic presentation. The reported gestational age is 36 weeks 5 days. There is cardiac and somatic activity with heart rate of 153 beats per minutes. The LANETTE measures 15.3 cm. This is now in normal range. US/US OB amniotic fluid vol IMPRESSION: NORMAL AMNIOTIC FLUID VOLUME. Impression dictated by: Smita Jensen M.D. 11/21/2024 8:59 AM Dictation Location: [place] [address] Electronically authenticated by: [id number] Y Date: 11/21/2024 08:59
--- OUTSIDE RECORDS SUMMARY | 2024-11-21 08:23 | XMS_ITS | CCD ---
Author Organization [facility] Care Team Providers Care Rock Lather Name Role Phone Ally Craig Primary Care [...] Care Unavailable ALLY CRAIG Attending Unavailable ALLY CRIAG Referring Unavailable ALANNA CRAIGITH A Primary Care Unavailable RADHA GAN Attending Unavailable ALLY CRIAG Referring Unavailable KIARA ALLY A Primary Care Unavailable ALLY CRAIG Attending Unavailable KIARA ALLY Donn Referring Unavailable ALANNA CRAIGITH A Primary Care Unavailable Unavailable Primary Care Provider UnavailAlly Herring Primary Care Provi collin Kiara COURT MANAGER-CLINIC SPECIALIST, Ally A Primary Care Provi collin RADHA GAN Referring Unavailable KIARA, ALLY A [...] Unavailable KIARA, ALLY A Referring Unavailable LIA, LIANG WYATT Attending Unavailable KIARA, ALLY A Primary Care Unavailable LIA, LIANG WYATT Referring Unavailable CIARA, JORDAN Attending Unavailable KIARA, ALLY A Primary Care Unavailable ALANA, CEDRIC R Referring Unavailable KIARA, ALLY A Primary Care Unavailable ALANA, CEDRIC R Referring Unavailable CIARA, JORDAN Attending Unavailable KIARA, ALLY A Primary Care Unavailable ALANA, CEDRIC R Referring Unavailable ANGYZORAIDA DENNIS Attending Unavailable ANGY, ZORAIDA Attending Unavailable ALANA, CEDRIC Attending Unavailable CAREY PENA Attending Unavailable ALANA, CEDRIC Attending Unavailable ANGY, ZORAIDA Attending Unavailable ALANA, CEDRIC Attending Unavailable ALANA, CEDRIC Attending Unavailable Allergies Allergy Classification Reported Allergen(s) Allergy Type Date of Onset Reaction(s) Facility strawberry allergenic extract (1 source) strawberry allergenic extract Drug Allergy [facility] Repository (11 sources) strawberry allergenic extract; Translations: [STRAWBERRY EXTRACT] Drug Allergy 9 Anaphylaxis [place], [place] (13 sources) [place] Propensity to adverse reactions 9 Anaphylaxis [facility] Medications Current Medications Medication Drug Class(es) Dates Sig (Normalized) Sig (Original) acetaminophen 500 mg oral tablet (1 source) Start: 02-01-2019 acetaminophen (TYLENOL) tablet 1,000 mg [id number] 200 actuat albuterol 0.09 mg/actuat metered dose [...] by mouth every week vitamin D (ERGOCALCIFEROL) 47375 units CAPS capsule Take 1 capsule by [...] omeprazole 20 mg delayed release oral tablet (5 sources) Proton Pump Inhibitor Start: 11-06-2024 take 1 tablet by mouth in the morning omeprazole OTC (PriLOSEC OTC) 20 MG EC tablet Take 20 mg by mouth in the morning. 11/06/2024 Active 2 ml ondansetron 2 mg/ml [...] morning. 90 tablet 3 11/18/2021 Active sennosides, penitentiary 8.6 mg oral tablet (2 sources) Start: [...] B12 Start: 02-09-2019 End: 02-09-2019 iron polysaccharide snvafzh-H67-cpxva acid (FERREX-FORTE) 150-0.025-1 MG capsule 1 mg [...] 03-15-2024 Episodic Other and delivery including normal (16 sources) ; Translations: [Encounter for supervision of [...] [32 weeks gestation of ] 10-25-2024 Episodic Residual codes; unclassified (2 sources) Gestation period, 35 weeks; Translations: [35 weeks gestation of ] 11-14-2024 Episodic Spondylosis; intervertebral disc disorders; other back [...] Facility US OB BPP W NON-STRESS on 11-17-2024 [place] [address] Ultrasound Report Signed Patient: MADDIE RAMAN MR#: [id number] : 1995 Acct:[id number] Age/Sex: 29 / F ADM Date: 11/17/24 Loc: [facility] [address]: Cedric Warner D.O. Ordering Physician: Cedric Warner D.O. Date of Service: 11/17/24 Procedure(s): US OB BPP w non-stress Accession Number(s): [id number] cc: Cedric Warner D.O.; Ally Craig NP [place] [address] Patient Name: MADDIE RAMAN MRN: [facility]:[id number] date: 1995 Sex: F Assigned Patient Location: [facility] Current Patient Location: [facility] Accession/Order Number: [id number] Exam Date: 11/17/2024 15:43 Report Date: 11/17/2024 15:46 At the request of: CEDRIC WARNER DO [...] Diaz M.D. 11/17/2024 3:46 PM Dictation Location: [place] [address] Electronically authenticated by: [id number] Y Date: 11/17/2024 15:46 Dictated By: Anthony Diaz D.O. Signed By: 11/17/24 1548 DD/ 1546 TD/TT: Manufacturing Operator: [facility] Radiology, Radiologist, - 11/17/2024 [place] [address] Ultrasound Report Signed Patient: MADDIE RAMAN MR#: [id number] : 1995 Acct:[id number] Age/Sex: 29 / F ADM Date: 11/17/24 Loc: [facility] 250-[address]: Cedric Warner D.O. Ordering Physician: Cedric Warner D.O. Date of Service: 11/17/24 Procedure(s): US OB BPP w non-stress Accession Number(s): [id number] cc: Cedric Warner D.O.; Ally Craig NP The [place] [address] Patient Name: MADDIE RAMAN MRN: [facility]:[id number] date: 1995 Sex: F Assigned Patient Location: [facility] Current Patient Location: [facility] Accession/Order Number: [id number] Exam Date: 11/17/2024 15:43 Report Date: 11/17/2024 15:46 At the request of: CEDRIC WARNER DO [...] Diaz M.D. 11/17/2024 3:46 PM Dictation Location: [place] [address] Electronically authenticated by: [id number] Y Date: 11/17/2024 15:46 Dictated By: Anthony Diaz D.O. Signed By: 11/17/24 1548 DD/ 1546 TD/TT: Manufacturing Operator: [facility] Radiology Study observation (narrative) [facility] US OB BPP W NON-STRESS Ordered By: Radiologist Radiology on 11-17-2024 [facility] Work Phone: Urinalysis macro (dipstick) panel (U)on 11-14-2024 Bilirubin, UA Negative Negative - 4(70) +++ mg/dL [facility] Blood, UA Negative Negative - 50 Miguel Angel/mcL [facility] Clarity, UA Clear [facility] Color, UA Yellow [facility] Glucose, UA Negative Negative - 2000(110) ++++ mg/dL [facility] Interpretation and review of laboratory results Abnormal [facility] Ketones, UA Negative Negative - 160(16) ++++ mg/dL [facility] Leukocytes, UA Negative Negative - 500+++ Eleonora/mcL [facility] Nitrite, UA Negative Negative - Positive [facility] pH, UA 6.5 5 - 9 [facility] Protein, UA Trace Negative - 2000(20) ++++ mg/dL [facility] Spec Grav, UA 1.02 1 - 1.03 [facility] Urobilinogen, UA 0.2 0.2 - 12 mg/dL On license of [facility] US OB BPP W NON-STRESS on 11-03-[address] [address] Ultrasound Report Signed Patient: MADDIE RAMAN MR#: [id number] : 1995 Acct:[id number] Age/Sex: 29 / F ADM Date: 11/03/24 Loc: US Attending Dr: Cedric Warner D.O. Ordering Physician: Cedric Warner D.O. Date of Service: 11/03/24 Procedure(s): US OB BPP w non-stress Accession Number(s): [id number] cc: Cedric Warner D.O.; Ally Craig NP [place] [address] Patient Name: MADDIE RAMAN MRN: [facility]:[id number] date: 1995 Sex: F Assigned Patient Location: [facility] Current Patient Location: Accession/Order Number: [id number] Exam Date: 11/03/2024 16:12 Report Date: 11/03/2024 [...] Bland M.D. 11/03/2024 4:13 PM Dictation Location: [place] [address] Electronically authenticated by: [id number] Y Date: 11/03/2024 16:13 Dictated By: Cristo Bland M.D. Signed By: 11/03/24 1616 DD/ 12 TD/TT: Manufacturing Operator: [facility] Radiology, Radiologist, - 11/03/2024 [place] [address] Ultrasound Report Signed Patient: MADDIE RAMAN MR#: [id number] : 1995 Acct:[id number] Age/Sex: 29 / F ADM Date: 11/03/24 Loc: US Attending Dr: Cedric Warner D.O. Ordering Physician: Cedric Warner D.O. Date of Service: 11/03/24 Procedure(s): US OB BPP w non-stress Accession Number(s): [id number] cc: Cedric Warner D.O.; Ally Craig NP [place] [address] Patient Name: MADDIE RAMAN MRN: [facility]:[id number] date: 1995 Sex: F Assigned Patient Location: [facility] Current Patient Location: Accession/Order Number: [id number] Exam Date: 11/03/2024 16:12 Report Date: 11/03/2024 [...] Bland M.D. 11/03/2024 4:13 PM Dictation Location: [place] [address] Electronically authenticated by: [id number] Y Date: 11/03/2024 16:13 Dictated By: Cristo Bland M.D. Signed By: 11/03/246 DD/ 12 TD/TT: Manufacturing Operator: [facility] Radiology Study observation (narrative) [facility] US OB BPP W NON-STRESS Ordered By: Radiologist Radiology on 11-03-2024 [facility] [employer] Work Phone: US OB BPP W NON-STRESS on 10-30-2024 [place] [address] Ultrasound Report Signed Patient: MADDIE RAMAN MR#: [id number] : 1995 Acct:[id number] Age/Sex: 29 / F ADM Date: 10/27/24 Loc: US Attending Dr: Cedric Warner D.O. Ordering Physician: Cedric Warner D.O. Date of Service: 10/27/24 Procedure(s): US OB BPP w non-stress Accession Number(s): [id number] cc: Cedric Warner D.O.; Ally Craig NP [address] [address] Patient Name: MADDIE RAMAN MRN: [id number] date: 1995 Sex: F Assigned Patient Location: Current Patient Location: Accession/Order Number: [id number] Exam Date: 10/30/2024 09:26 Report Date: 10/30/2024 09:28 At the request of: CEDRIC WARNER DO Procedure: US OB BPP w non-stress BIOPHYSICAL PROFILE: CLINICAL INFORMATION: HISTORY OF GASTRIC SLEEVE Z 90.3 COMPARISON: 08/05/2024 There is a single live intrauterine gestation in cephalic presentation. The reported gestational age is 33 weeks 1 day. The heart rate [id number] beats per minute. FINDINGS: TONE: 1 or [...] Jensen M.D. 10/30/2024 9:28 AM Dictation Location: [place] [address] Electronically authenticated by: [id number] Y Date: 10/30/2024 09:28 Dictated By: Smita Jensen M.D. Signed By: 10/30/24930 DD/ 7 TD/TT: Manufacturing Operator: [facility] Radiology, Radiologist, MD - 10/30/2024 [place] [address] Ultrasound Report Signed Patient: MADDIE RAMAN MR#: [id number] : 1995 Acct:[id number] Age/Sex: 29 / F ADM Date: 10/27/24 Loc: US Attending Dr: Cedric Warner D.O. Ordering Physician: Cedric Warner D.O. Date of Service: 10/27/24 Procedure(s): US OB BPP w non-stress Accession Number(s): [id number] cc: Cedric Warner D.O.; Ally Craig NP The [place] [id number] Patient Name: MADDIE RAMAN MRN: [facility]:[id number] date: 1995 Sex: F Assigned Patient Location: Current Patient Location: Accession/Order Number: [id number] Exam Date: 10/30/2024 09:26 Report Date: 10/30/2024 09:28 At the request of: CEDRIC WARNER DO Procedure: US OB BPP w non-stress BIOPHYSICAL PROFILE: CLINICAL INFORMATION: HISTORY OF GASTRIC SLEEVE Z 90.3 COMPARISON: 08/05/2024 There is a single live intrauterine gestation in cephalic presentation. The reported gestational age is 33 weeks 1 day. The heart rate [id number] beats per minute. FINDINGS: TONE: 1 or [...] Jensen M.D. 10/30/2024 9:28 AM Dictation Location: [place] [address] Electronically authenticated by: [id number] Y Date: 10/30/2024 09:28 Dictated By: Smita Jensen M.D. Signed By: 10/30/24930 DD/ 7 TD/TT: Manufacturing Operator: [facility] Radiology Study observation (narrative) [facility] US OB BPP W NON-STRESS Ordered By: Radiologist Radiology on 10-30-2024 [facility] Work Phone: Urinalysis macro (dipstick) panel (U)on 10-25-2024 Bilirubin, UA Negative Negative - 4(70) +++ mg/dL [facility] Blood, UA Negative Negative - 50 Miguel Angel/mcL [facility] Clarity, UA Clear [facility] Color, UA Yellow [facility] Glucose, UA Negative Negative - 1999(110) ++++ mg/dL [facility] Interpretation and review of laboratory results Normal [facility] Ketones, UA Negative Negative - 160(16) ++++ mg/dL [facility] Leukocytes, UA Negative Negative - 500+++ Eleonora/mcL [facility] Nitrite, UA Negative Negative - Positive [facility] pH, UA 6.5 5 - 9 [facility] Protein, UA Negative Negative - 1999(20) ++++ mg/dL [facility] Spec Grav, UA 1.015 1 - 1.03 [facility] Urobilinogen, UA 0.2 0.2 - 12 mg/dL On license of [facility] Urinalysis macro (dipstick) panel (U)on 10-11-2024 Bilirubin, UA Negative Negative - 4(70) +++ mg/dL [facility] Blood, UA Negative Negative - 50 Miguel Angel/mcL [facility] Clarity, UA Clear [facility] Color, UA Yellow [facility] Glucose, UA Negative Negative - 1999(110) ++++ mg/dL [facility] Interpretation and review of laboratory results Normal [facility] Ketones, UA Negative Negative - 160(16) ++++ mg/dL [facility] Leukocytes, UA Negative Negative - 500+++ Eleonora/mcL [facility] Nitrite, UA Negative Negative - Positive [facility] pH, UA 7 5 - 9 [facility] Protein, UA Trace Negative - 1999(20) ++++ mg/dL [facility] Spec Grav, UA 1.025 1 - 1.03 [facility] Urobilinogen, UA 0.2 0.2 - 12 mg/dL On license of [facility] POCT EKGon 10-05-2024 [facility] Urinalysis macro (dipstick) panel (U)on 09-26-2024 Bilirubin, UA Negative Negative - 4(70) +++ mg/dL [facility] Blood, UA Negative Negative - 50 Miguel Angel/mcL [facility] Clarity, UA Clear [facility] Color, UA Tiffany [facility] Glucose, UA Negative Negative - 1999(110) ++++ mg/dL [facility] Interpretation and review of laboratory results Abnormal [facility] Ketones, UA Negative Negative - 160(16) ++++ mg/dL [facility] Leukocytes, UA Negative Negative - 500+++ Eleonora/mcL [facility] Nitrite, UA Negative Negative - Positive [facility] pH, UA 6 5 - 9 [facility] Protein, UA Positive Negative - 1999(20) ++++ mg/dL [facility] Comment on above: 30 Spec Grav, UA 1.03 1 - 1.03 [facility] Urobilinogen, UA 0.2 0.2 - 12 mg/dL On license of [facility] No Panel InformationOrdered By: Radiologist Radiology on 08-05-2024 [facility] Work Phone: No Panel Informationon 08-05 Radiology Study observation (narrative) [facility] US OB ANATOMYon 08-05-2024 [place] [address] Ultrasound Report Signed Patient: MADDIE RAMAN MR#: [id number] : 1995 Acct:[id number] Age/Sex: 29 / F ADM Date: 08/05/24 Loc: US Attending Dr: Zoraida Travis Ordering Physician: Zoraida Travis Date of Service: 08/05/24 Procedure(s): US OB anatomy Accession Number(s): [id number] cc: Zoraida Travis; Ally Craig NP [place] [address] Patient Name: MADDIE RAMAN MRN: [facility]:[id number] date: 1995 Sex: F Assigned Patient Location: US Current Patient Location: US Accession/Order Number: [id number] Exam Date: 08/05/2024 08:01 Report Date: 08/05/2024 [...] Signed By: 08/05/24 0858 DD/ 0855 TD/TT: Manufacturing Operator: [facility] Radiology, Radiologist, MD - 08/05/2024 [place] [address] Ultrasound Report Signed Patient: MADDIE RAMAN MR#: [id number] : 1995 Acct:[id number] Age/Sex: 29 / F ADM Date: 08/05/24 Loc: US Attending Dr: Zoraida Travis Ordering Physician: Zoraida Travis Date of Service: 08/05/24 Procedure(s): US OB anatomy Accession Number(s): [id number] cc: Zoraida Travis; Ally Craig NP The [place] [id number] Patient Name: MADDIE RAMAN MRN: [facility]:[id number] date: 1995 Sex: F Assigned Patient Location: Current Patient Location: US Accession/Order Number: [id number] Exam Date: 08/05/2024 08:01 Report Date: 08/05/2024 [...] Mathew M.D. Signed By: 08/05/2458 DD/ TD/TT: Manufacturing Operator[facility] CERVICAL LENGTHon 07-22 [place] [id number] Ultrasound Report Signed Patient: MADDIE RAMAN MR#: [id number] : 1995 Acct:[id number] Age/Sex: 29 / F ADM Date: 08/05/24 Loc: US Attending Dr: Zoraida Travis Ordering Physician: Zoraida Travis Date of Service: 08/05/24 Procedure(s): US OB cervical length Accession Number(s): [id number] cc: Zoraida Travis; Ally Craig NP [address] [address] Patient Name: MADDIE RAMAN MRN: [id number]:[id number] date: 1995 Sex: F Assigned Patient Location: US Current Patient Location: US Accession/Order Number: [id number] Exam Date: 08/05/2024 08:01 Report Date: 08/05/2024 [...] M.D. Signed By: 08/05/24 0858 DD/ TD/TT: Manufacturing Operator: [facility] Radiology, Radiologist, - 08/05/2024 [place] [address] Ultrasound Report Signed Patient: MADDIE RAMAN MR#: [id number] : 1995 Acct:[id number] Age/Sex: 29 / F ADM Date: 08/05/24 Loc: US Attending Dr: Zoraida Travis Ordering Physician: Zoraida Travis Date of Service: 08/05/24 Procedure(s): US OB cervical length Accession Number(s): [id number] cc: Zoraida Travis; Ally Craig NP [place] [phone] Patient Name: MADDIE RAMAN MRN: [id number]:[id number] date: 1995 Sex: F Assigned Patient Location: US Current Patient Location: US Accession/Order Number: [id number] Exam Date: 08/05/2024 08:01 Report Date: 08/05/2024 [...] M.D. Signed By: 08/05/24857 DD/ 4 TD/TT: Manufacturing Operator: [facility] IGP,APTIMA HPV,AGE GDLNon AGE GDLN ACOG TESTING Note . [facility] Comment on above: TESTS RESULT FLAG UN ITS REF RANGE LAB Clinician Provided Cytology Information Source.............Cervix Other.............. No. of containers..01 ThinPrep Vial Age Algo ACOG Theodora... -19 07 FLAG LEGEND: L-Low Normal,H-High Normal,LL-Alert Low,HH-Alert High <-Panic Low,>-Panic High,A-Abnormal,AA-Critical Abnormal Performed at: 01 =G [address] [place] [address] Otilia Marquis MD, IGP, RFX APTIMA HPV ASCU Note . [facility] Comment on above: TESTS RESULT FLAG U NITS REF RANGE LAB DIAGNOSIS: 02 NEGATIVE FOR INTRAEPITHELIAL LESION OR MALIGNANCY. Specimen adequacy: 02 Satisfactory for evaluation. Endocervical and/or squamous metaplastic cells (endocervical component) are present. Performed by: 02 Maritza Bliss, Knowledge Management Consultant ([facility]) . 02 Note: Note 03 The [...] <-Panic Low,>-Panic High,A-Abnormal,AA-Critical Abnormal Performed at: 02 [place] [facility] [address] [place] [address] Kyra Flores PhD, 03 WB [facility] [address] [address] Otilia Marquis MD, Performed at: = - [facility] [address], [place] [id number] [employer]: Otilia Marquis MD, Phone: [phone] Performed at: [facility] [address] [place], [place] [id number] [employer]: Kyra Flores PhD, Phone: [phone] SPATULA-ALONE CERVIX [facility] RECURRENT VAGINITIS (HTRX)on 08-02-2024 ATOPOBIUM VAGINAE 21.302 Abnormal [facility] ATOPOBIUM VAGINAE Detected Abnormal [facility] BVAB 2,3 (BACTERIAL VAGINOSIS ASSOCIATED BACTERIA 2, 3); MOBILUNCUS SPP 18.822 Abnormal [facility] BVAB 2,3 (BACTERIAL VAGINOSIS ASSOCIATED BACTERIA 2, 3); MOBILUNCUS SPP Detected Abnormal [facility] ROCÍO ALBICANS, PARAPSILOSIS, TROPICALIS 0 [facility] ROCÍO ALBICANS, PARAPSILOSIS, TROPICALIS Not detected [facility] ROCÍO GLABRATA 0 [facility] ROCÍO GLABRATA Not detected [facility] ROCÍO KRUSEI 0 [facility] ROCÍO KRUSEI Not detected [facility] CHLAMYDIA TRACHOMATIS 0 [facility] CHLAMYDIA TRACHOMATIS Not detected [facility] ERMB, C; MEFA 21.66 Abnormal [facility] ERMB, C; MEFA Detected Abnormal [facility] GARDNERELLA VAGINALIS 22.792 Abnormal [facility] S [facility] GARDNERELLA VAGINALIS Detected Abnormal [facility] Healthcare Interpretation and review of laboratory results Abnormal [facility] MEGASPHAERA (TYPES 1, 2) 17.674 Abnormal [facility] MEGASPHAERA (TYPES 1, 2) Detected Abnormal [facility] MYCOPLASMA GENITALIUM 0 [facility] MYCOPLASMA GENITALIUM Not detected N [facility] NEISSERIA GONORRHOEAE 0 [facility] S [facility] NEISSERIA GONORRHOEAE Not detected N [facility] TRICHOMONAS VAGINALIS 0 [facility] TRICHOMONAS VAGINALIS Not detected [facility] Healthcare Urinalysis macro (dipstick) panel (U)on 07-31-2024 Bilirubin, UA Positive Negative - 4(70) +++ mg/dL [facility] Comment on above: small Blood, UA Negative Negative - 50 Miguel Angel/mcL [facility] Clarity, UA Cloudy [facility] Color, UA Dark Tiffany [facility] Glucose, UA Negative Negative - 2000(110) ++++ mg/dL [facility] Interpretation and review of laboratory results Abnormal [facility] Ketones, UA Negative Negative - 160(16) ++++ mg/dL [facility] Leukocytes, UA Negative Negative - 500+++ Eleonora/mcL [facility] Nitrite, UA Negative Negative - Positive [facility] pH, UA 6 5 - 9 [facility] Protein, UA Positive Negative - 2000(20) ++++ mg/dL [facility] Comment on above: 30 mg Spec Grav, UA 1.03 1 - 1.03 [facility] Urobilinogen, UA 1.0 0.2 - 12 mg/dL On license of [facility] AFP, SERUM, OPEN SPINA BIFID Aon 07-07-2024 AFP MOM 0.99 . [facility] AFP VALUE 31.8 ng/mL . [facility] COMMENT: Comment . [facility] Comment on above: Yanni West , Ph.D., [facility] Director References: Available Upon Request. Multiples Of Median Cutoffs For AFP Elevations Alonso 2.5 Black 2.8 IDD 2.0 Twins 4.5 Abbreviation Definitions IDD - Insulin Dep Diabetes OSBR - Open Spina Bifida Risk For further inquiries contact [employer] at [phone]. This test was developed and its performance characteristics determined by [employer]. It has not been cleared or approved by the Food and Drug Administration. Performed at: [facility] [place], [place] [id number] [employer] Teacher: Sinai Arellano [facility], Phone: [phone] GEST. AGE ON COLLECTION DATE 17.9 . weeks [facility] GESTAT. AGE BASED ON Ultrasound . [facility] Comment on above: 15:0 on 06/15/2024 Recalculations are not recommended when gestational dating by LMP and ultrasound are within 10 days. INSULIN DEP DIABETES No . [facility] INTERPRETATION Comment . [facility] Comment on above: Interpretation: Scre en [...] AT MERLINE 29.5 . yr [facility] MULTIPLE GESTATION No . [facility] [place] [address] . [facility] RACE . [facility] RESULTS Report . [facility] TEST RESULTS: Negative . [facility] WEIGHT 237 . lbs [facility] N [id number] N ULTRASOUND [id number] 15 N 1 Y 237 N N N N N [facility] macro (dipstick) panel (U)on 06-15-2024 Bilirubin, UA Negative Negative - 4(70) +++ mg/dL [facility] Blood, UA Negative Negative - 50 Miguel Angel/mcL [facility] Clarity, UA Clear [facility] Color, UA Yellow [facility] Glucose, UA Negative Negative - 1999(110) ++++ mg/dL [facility] Interpretation and review of laboratory results Abnormal [facility] Ketones, UA Negative Negative - 160(16) ++++ mg/dL [facility] Leukocytes, UA Few Negative - 500+++ Eleonora/mcL [facility] Comment on above: small Nitrite, UA Negative Negative - Positive [facility] pH, UA 7 5 - 9 [facility] Protein, UA Negative Negative - 1999(20) ++++ mg/dL [facility] Spec Grav, UA 1.025 1 - 1.03 [facility] Urobilinogen, UA 2.0 0.2 - 12 mg/dL On license of [facility] BOX TESTon 06-06-2024 BOX TEST SENT OUT [facility] BOX1 [facility] BOX2 06/06/24 [facility] ( test) Ql (U)o n 05-29-2024 Interpretation and review of laboratory results Abnormal [facility] Preg Test, Ur Positive Negative On license of [facility] Urinalysis macro (dipstick) panel (U)on 05-29-2024 Bilirubin, UA Negative Negative - 4(70) +++ mg/dL [facility] Blood, UA Negative Negative - 50 Miguel Angel/mcL [facility] Clarity, UA Clear [facility] Color, UA Yellow [facility] Glucose, UA Negative Negative - 1999(110) ++++ mg/dL [facility] Interpretation and review of laboratory results Abnormal [facility] Ketones, UA Positive Negative - 160(16) ++++ mg/dL [facility] Comment on above: trace Leukocytes, UA Negative Negative - 500+++ Eleonora/mcL [facility] Nitrite, UA Negative Negative - Positive [facility] pH, UA 6.5 5 - 9 [facility] Protein, UA Negative Negative - 2000(20) ++++ mg/dL [facility] Spec Grav, UA 1.02 1 - 1.03 [facility] Urobilinogen, UA 1.0 0.2 - 12 mg/dL [facility] PREG QUANT HCGon 05-12-2 024 HCG QUANTITATIVE 35491 mIU/mL [facility] Comment on above: 5-50 0.2-1 WEEK 50-500 1-2 WEEKS 100-5,000 2-3 WEEKS 500-10,000 3-4 WEEKS 1,000-50,000 4-5 WEEKS 10,000-100,000 5-6 WEEKS 15,000-200,000 6-8 WEEKS 10,000-100,000 [facility]-10-2 024 HCG QUANTITATIVE 79296 mIU/mL [facility] Comment on above: 5-50 0.2-1 WEEK 50-500 1-2 WEEKS 100-5,000 2-3 WEEKS 500-10,000 3-4 WEEKS 1,000-50,000 4-5 WEEKS 10,000-100,000 5-6 WEEKS 15,000-200,000 6-8 WEEKS 10,000-100,000 2[facility] HCG[facility] 18-2 024 HCG QUANTITATIVE 62580 mIU/mL [facility] Comment on above: 5-50 0.2-1 WEEK 50-500 1-2 WEEKS 100-5,000 2-3 WEEKS 500-10,000 3-4 WEEKS 1,000-50,000 4-5 WEEKS 10,000-100,000 5-6 WEEKS 15,000-200,000 6-8 WEEKS 10,000-100,000 2-3 MONTHS [facility] CBC AND AUTO DIFFon 03-15-20 24 ABSOLUTE BASOPHIL 0.1 X10E9/L Normal 0.0-0.2 [facility] Comment on above: Performed By: #### 2 4331-1, CBCA, CMP, FEPR, 2275-09, 2132-02, THYR #### [facility] ([id number]) [address], [address] [place] [address] ABSOLUTE NEUTROPHIL 3.1 X10E9/L Normal 1.5-6.6 [facility] Comment on above: Performed By: #### 2 4331-1, CBCA, CMP, FEPR, 2275-09, 2132-02, THYR #### [facility] ([id number]) [address], [address] [address] Basophils/100 WBC (Bld) 1.2 % Normal [facility] Comment on above: Performed By: #### 2 4331-1, CBCA, CMP, FEPR, 2275-09, 2132-02, THYR #### [facility] ([id number]) [address], [address] [place] [address] Eosinophils (Bld) [#/Vol] 0.4 10*3/uL Normal 0.0-0.4 [facility] Comment on above: Performed By: #### 2 4331-1, CBCA, CMP, FEPR, 2275-09, 2132-02, THYR #### [facility] ([id number]) [address], [address] [place] [address] Eosinophils/100 WBC (Bld) 6.7 % Normal [facility] Comment on above: Performed By: #### 2 4331-1, CBCA, CMP, FEPR, 2275-09, 2132-02, THYR #### [facility] ([id number]) [address], [address] [place] [address] Erythrocyte distribution width (RBC) [Ratio] 12.8 % Normal 11.5-15.0 [facility] Comment on above: Performed By: #### 2 4331-1, CBCA, CMP, FEPR, 2275-09, 2132-02, THYR #### [facility] ([id number]) [address] [address] Hematocrit (Bld) [Volume fraction] 36.5 % Normal 35-47 [facility] Comment on above: Performed By: #### 2 4331-1, CBCA, CMP, FEPR, 2275-09, 2132-02, THYR #### [facility] ([id number]) [address] [address] Hemoglobin (Bld) [Mass/Vol] 12.9 g/dL Normal 11.7-15.5 [facility] Comment on above: Performed By: #### 2 4331-1, CBCA, CMP, FEPR, 2275-09, 2132-02, THYR #### [facility] ([id number]) [address] [address] Lymphocytes (Bld) [#/Vol] 1.3 10*3/uL Normal 1.0-3.5 [facility] Comment on above: Performed By: #### 2 4331-1, CBCA, CMP, FEPR, 2275-09, 2132-02, THYR #### [facility] ([id number]) [address] [address] Lymphocytes/100 WBC (Bld) 25.0 % Normal [facility] Comment on above: Performed By: #### 2 4331-1, CBCA, CMP, FEPR, 2275-09, 2132-02, THYR #### [facility] ([id number]) [address] [address] MCH (RBC) [Entitic mass] 31.2 pg Normal 27-34 [facility] Comment on above: Performed By: #### 2 4331-1, CBCA, CMP, FEPR, 2275-09, 2132-02, THYR #### [facility] ([id number]) [address], [address] [place] [address] MCHC (RBC) [Mass/Vol] 35.4 g/dL Normal 32-36 [facility] Comment on above: Performed By: #### 2 4331-1, CBCA, CMP, FEPR, 2275-09, 2132-02, THYR #### [facility] ([id number]) [address], [address] [place] [address] MCV (RBC) [Entitic vol] 88 fL Normal 80-100 [facility] Comment on above: Performed By: #### 2 4331-1, CBCA, CMP, FEPR, 2275-09, 2132-02, THYR #### [facility] ([id number]) [address], [address] [place] [address] Monocytes (Bld) [#/Vol] 0.4 10*3/uL Normal 0-0.9 [facility] Comment on above: Performed By: #### 2 4331-1, CBCA, CMP, FEPR, 2275-09, 2132-02, THYR #### [facility] ([id number]) [address], [address] [place] [address] Monocytes/100 WBC (Bld) 8.4 % Normal [facility] Comment on above: Performed By: #### 2 4331-1, CBCA, CMP, FEPR, 2275-09, 2132-02, THYR #### [facility] ([id number]) [address], [address] [address] Neutrophils/100 WBC (Bld) 58.7 % Normal [facility] Comment on above: Performed By: #### 2 4331-1, CBCA, CMP, FEPR, 2275-09, 2132-02, THYR #### [facility] ([id number]) [address], [address] [place] [address] Platelet mean volume (Bld) [Entitic vol] 8.5 fL Normal 7-12 [facility] Comment on above: Performed By: #### 2 4331-1, CBCA, CMP, FEPR, 2275-, 2132-02, THYR #### [facility] ([id number]) [address], [address] [place] [address] Platelets (Bld) [#/Vol] 234 10*3/uL Normal 150-450 [facility] Comment on above: Performed By: #### 2 4331-1, CBCA, CMP, FEPR, 2275-09, 2132-02, THYR #### [facility] ([id number]) [address], [facility] [address] [place] [address] RBC COUNT 4.13 X10E12/L Normal 3.80-5.20 [facility] Comment on above: Performed By: #### 2 4331-1, CBCA, CMP, FEPR, 2275-09, 2132-02, THYR #### [facility] ([id number]) [address], [address] [address] WBC (Bld) [#/Vol] 5.3 10*3/uL Normal 4.0-11.0 [facility] Comment on above: Performed By: #### 2 4331-1, CBCA, CMP, FEPR, 2275-09, 2132-02, THYR #### [facility] ([id number]) [address], [address] [place] [address] COMPREHENSIVE METABOLIC PANE Malachi 03-15-2024 Albumin [Mass/Vol] 4.4 g/dL Normal 3.2-5.3 [facility] Comment on above: Performed By: #### 2 4331-1, CBCA, CMP, FEPR, 2275-09, 2132-02, THYR #### [facility] ([id number]) [address], [address] [place] [address] ALP [Catalytic activity/Vol] 52 U/L Normal 39-130 [facility] Comment on above: Performed By: #### 2 4331-1, CBCA, CMP, FEPR, 6-4, 2132-02, THYR #### [facility] ([id number]) [address], [address] [place] [address] ALT [Catalytic activity/Vol] 16 U/L Normal 0-31 [facility] Comment on above: Performed By: #### 2 4331-1, CBCA, CMP, FEPR, 2275-09, 2132-02, THYR #### [facility] ([id number]) [address], [address] [place] [address] Anion gap [Moles/Vol] 9 mmol/L Normal 5-15 [facility] Comment on above: Performed By: #### 2 4331-1, CBCA, CMP, FEPR, 2275-, 2132-02, THYR #### [facility] ([id number]) [address], [address] [place] [address] AST [Catalytic activity/Vol] 19 U/L Normal 0-41 [facility] Comment on above: Performed By: #### 2 4331-1, CBCA, CMP, FEPR, 2275-, 2132-02, THYR #### [facility] ([id number]) [address], [address] [place] [address] Bilirubin [Mass/Vol] 0.5 mg/dL Normal 0.3-1.2 [facility] Comment on above: Performed By: #### 2 4331-1, CBCA, CMP, FEPR, 2275-, 2132-02, THYR #### [facility] ([id number]) [address], [address] [place] [address] Calcium [Mass/Vol] 9.3 mg/dL Normal 8.5-10.5 [facility] Comment on above: Performed By: #### 2 4331-1, CBCA, CMP, FEPR, 2275-09, 2132-02, THYR #### [facility] ([id number]) [address], [address] [place] [address] Chloride [Moles/Vol] 104 mmol/L Normal 98-109 [facility] Comment on above: Performed By: #### 2 4331-1, CBCA, CMP, FEPR, 2275-09, 2132-02, THYR #### [facility] ([id number]) [address], [address] [place] [address] CO2 [Moles/Vol] 27 mmol/L Normal 22-32 [facility] Comment on above: Performed By: #### 2 4331-1, CBCA, CMP, FEPR, 2275-09, 2132-02, THYR #### [facility] ([id number]) [address], [address] [place] [address] Creatinine [Mass/Vol] 0.60 mg/dL Normal 0.40-1.00 [facility] Comment on above: Result Comment: METH OD TRACEABLE TO IDMS STANDARD Performed By: #### 2 4331-1, CBCA, CMP, FEPR, 2275-09, 2132-02, THYR #### [facility] ([id number]) [address], [address] [place] [address] eGFR (CKD-EPI) NON-RACE DEPENDENT >90 Normal >59 [facility] Comment on above: Result Comment: Reported eGFR is based on the CKD-EPI 2020 equation that does not use a race coefficient. Performed By: #### 2 4331-1, CBCA, CMP, FEPR, 2275-09, 2132-02, THYR #### [facility] ([id number]) [address], [address] [place] [address] Glucose [Mass/Vol] 75 mg/dL Normal 65-99 [facility] Comment on above: Performed By: #### 2 4331-1, CBCA, CMP, FEPR, 2275-09, 2132-02, THYR #### [facility] ([id number]) [address], [address] [place] [address] Potassium [Moles/Vol] 4.2 mmol/L Normal 3.5-5.0 [facility] Comment on above: Performed By: #### 2 4331-1, CBCA, CMP, FEPR, 2275-09, 2132-02, THYR #### [facility] ([id number]) [address], [address] [place] [address] Protein [Mass/Vol] 7.5 g/dL Normal 6.0-8.0 [facility] Comment on above: Performed By: #### 2 4331-1, CBCA, CMP, FEPR, 2275-09, 2132-02, THYR #### [facility] ([id number]) [address], [address] [place] [address] Sodium [Moles/Vol] 140 mmol/L Normal 134-146 [facility] Comment on above: Performed By: #### 2 4331-1, CBCA, CMP, FEPR, 2275-09, 2132-02, THYR #### [facility] ([id number]) [address], [address] [place] [address] Urea nitrogen [Mass/Vol] 10 mg/dL Normal 5-23 [facility] Comment on above: Performed By: #### 2 4331-1, CBCA, CMP, FEPR, 2275-09, 2132-02, THYR #### [facility] ([id number]) [address], [address] [place] [address] FERRITINon 03-15-2024 Ferritin [Mass/Vol] 55 ng/mL Normal 11-307 [facility] Comment on above: Performed By: #### 2 4331-1, CBCA, CMP, FEPR, 2275-, 2132-02, THYR #### [facility] ([id number]) [address], [address] [place] [address] IRON PROFILEon 03-15-2024 Iron [Mass/Vol] 126 ug/dL Normal 50-170 [facility] Comment on above: Performed By: #### 2 4331-1, CBCA, CMP, FEPR, 2275-09, 2132-02, THYR #### [facility] ([id number]) [address], [address] [place] [address] IRON BINDING 351 ug/dL Normal 250-425 [facility] Comment on above: Performed By: #### 2 4331-1, CBCA, CMP, FEPR, 2275-09, 2132-02, THYR #### [facility] ([id number]) [address], [address] [place] [address] IRON SATURATION 36 % SATURATION Normal 15-50 [facility] Comment on above: Performed By: #### 2 4331-1, CBCA, CMP, FEPR, 2275-09, 2132-02, THYR #### [facility] ([id number]) [address], [address] [place] [address] Lipid 1996 panelon Cholesterol [Mass/Vol] 164 mg/dL Normal 150-200 [facility] Comment on above: Performed By: #### 2 4331-1, CBCA, CMP, FEPR, 2275-09, 2132-02, THYR #### [facility] ([id number]) [address], [address] [place] [address] Cholesterol in HDL [Mass/Vol] 57 mg/dL Normal >39 [facility] Comment on above: Result Comment: HDL <40 mg/dL - High Risk HDL > or = 40mg/dL- Desirable HDL >60 mg/dL - Negative Risk Performed By: #### 2 4331-1, CBCA, CMP, FEPR, 2276-4, 2131-9, THYR #### [facility] ([id number]) [address], [address] [place] [address] Cholesterol in LDL [Mass/Vol] 84 mg/dL Normal <130 [facility] Comment on above: Result Comment: LDL <100 mg/dL - Desirable LDL >160 mg/dL - High Risk Performed By: #### 2 4331-1, CBCA, CMP, FEPR, 2276-4, 9, THYR #### [facility] ([id number]) [address], [address] [place] [address] Cholesterol in VLDL [Mass/Vol] 23 mg/dL Normal 0-30 [facility] Comment on above: Performed By: #### 2 4331-1, CBCA, CMP, FEPR, 2276-4, 2131-9, THYR #### [facility] ([id number]) [address], [address] [place] [address] CHOLESTEROL:HDL 2.9 Normal 1.0-5.0 [facility] Comment on above: Performed By: #### 2 4331-1, CBCA, CMP, FEPR, 2276-4, 2131-9, THYR #### [facility] ([id number]) [address], [address] [place] [address] Triglyceride [Mass/Vol] 115 mg/dL Normal 27-150 [facility] Comment on above: Performed By: #### 2 4331-1, CBCA, CMP, FEPR, 2275-09, 2132-02, THYR #### [facility] ([id number]) [address] [place] [address] THYROID PROFILEon 03-15-2024 Free T4 [Mass/Vol] 0.74 ng/dL Normal 0.61-1.60 [facility] Comment on above: Performed By: #### 2 4331-1, CBCA, CMP, FEPR, 2275-09, 2132-02, THYR #### [facility] ([id number]) [address], [address] [address] TSH 2.68 uIU/mL Normal 0.49-4.67 [facility] Comment on above: Performed By: #### 2 4331-1, CBCA, CMP, FEPR, 2275-09, 2132-02, THYR #### [facility] ([id number]) [address] [facility], [address] [place] [address] VITAMIN B12on 03-15-2024 Cobalamin (Vitamin B12) [Mass/Vol] 537 pg/mL Normal 180-914 [facility] Comment on above: Performed By: #### 2 4331-1, CBCA, CMP, FEPR, 2275-09, 2132-02, THYR #### [facility] ([id number]) [address], [address] [place] [address] POCT urinalysis dipstick onl yon 01-20-2024 Appearance (U) Cloudy [facility] External Poct Urine Bilirubin Negative [facility] External Poct Urine Blood Trace [facility] External Poct Urine Character Malodorous [facility] External Poct Urine Color Dark Yellow [facility] External Poct Urine Glucose Negative [facility] External Poct Urine Ketones Trace [facility] External Poct Urine Leukocyte Esterase Large [facility] External Poct Urine Nitrite Negative [facility] External Poct Urine Ph 5.0 [facility] External Poct Urine Protein 3+ [facility] External Poct Urine Specific Fowler 1.000 [facility] External Poct Urine Urobilinogen 0.2 [facility] URINE CULTUREon 01-20-2024 Bacteria identified Cx [...] F TRIMETH/SULFAMETHOXA ZOLE R >=16/304 F Resistant [facility] Comment on above: Performed By: #### 6 30-4 #### [facility] ([id number]) [address] [place] [address], [address] [place] [address] Basic Metabolic Vasquez w/Rfx A1 Con 12-08-2023 GFR/1.73 sq M.predicted MDRD (S/P/Bld) [Vol rate/Area] mL/min/{1.73_m2} Normal [facility] Comment on above: Performed By: #### E BS LIPID, EMP BMP #### [facility] [address] [place] [id number] [place] Calcium [Mass/volume] in Ser um or PlasmaOrdered By: Janna Escalera on 12-08-2023 Calcium [Mass/Vol] 9.5 mg/dL Normal 8.6-10.3 [facility] Comment on above: Performed By: #### E BS LIPID, EMP BMP #### [facility] [address] [place] [address] [place] Carbon dioxide, total [Moles /volume] in Serum or PlasmaOrdered By: Janna Escalera on 12-08-2023 CO2 [Moles/Vol] 29.1 mmol/L Normal 21.0-31.0 [facility] Comment on above: Performed By: #### E BS LIPID, EMP BMP #### [facility] [address] [place] [address] [place] Chloride [Moles/volume] in S radha or PlasmaOrdered By: Janna Escalera on 12-08-2023 Chloride [Moles/Vol] 105 mmol/L Normal 98-107 [facility] Comment on above: Performed By: #### E BS LIPID, EMP BMP #### [facility] [address] [place] [address] [place] Cholesterol [Mass/volume] in Serum or PlasmaOrdered By: Janna Escalera on 12-08-2023 Cholesterol [Mass/Vol] 163 mg/dL Normal 140-200 [facility] Comment on above: Chol less than 200 m g/dl low riskChol 201-239 mg/dl borderline riskChol 240 mg/dl and greater high risk Result Comment: Chol less than 200 mg/dl low risk Chol 201-239 mg/dl borderline risk Chol 240 mg/dl and greater high risk Performed By: #### E BS LIPID, EMP BMP #### [facility] [address] Cholesterol in LDL Calc [Mas s/Vol]Ordered By: Janna Escalera on 12-08-2023 Cholesterol in LDL [Mass/Vol] 84 mg/dL 0-100 [facility] Comment on above: LDL ATP III CLASSIFI CATIONLDL less than 100 mg/dL OptimalLDL 100-129 mg/dL Near or above optimalLDL 130-159 mg/dL Borderline highLDL 160-189 mg/dL HighLDL greater than 189 mg/dL Very high Cholesterol in VLDL Calc [Ma ss/Vol]Ordered By: Janna Escalera on 12-08-2023 Cholesterol in VLDL [Mass/Vol] 17 mg/dL [facility] Creatinine [Mass/volume] in Serum or PlasmaOrdered By: Janna Escalera on 12-08-2023 Creatinine [Mass/Vol] 0.69 mg/dL Normal 0.60-1.20 [facility] Comment on above: Performed By: #### E BS LIPID, EMP BMP #### [facility] [address] [place] [id number] [facility] Glucose [Mass/volume] in Ser um or PlasmaOrdered By: Janna Escalera on 12-08-2023 Glucose [Mass/Vol] 83 mg/dL Normal 70-100 [facility] Comment on above: Performed By: #### E BS LIPID, EMP BMP #### [facility] [address] Lipid Profileon 12-08-2023 LDL Cholesterol,Calculated 84 mg/dL Normal 0-100 [facility] Comment on above: Result Comment: LDL ATP III CLASSIFICATION LDL less than 100 mg/dL Optimal LDL 100-129 mg/dL Near or above optimal LDL 130-159 mg/dL Borderline high LDL 160-189 mg/dL High LDL greater than 189 mg/dL Very high Performed By: #### E BS LIPID, EMP BMP #### [facility] [address] Triglyceride w/Reflex 87 mg/dL Normal 0-149 [facility] Comment on above: Result Comment: TRIG ATP III CLASSIFICATION TRIG less than 150 mg/dL Normal TRIG 150-199 mg/dL Borderline high TRIG 200-500 mg/dL High TRIG greater than 500 mg/dL Very high Standard traceable to the Center for Disease Conrtrol and Prevention (CDC) test method. Performed By: #### E BS LIPID, EMP BMP #### [facility] [address] [place] [id number] [facility] VLDL CHOLESTEROL 17 mg/dL Normal [facility] Comment on above: Performed By: #### E BS LIPID, EMP BMP #### [facility] [address] No Panel InformationOrdered By: Janna Escalera on 12-08-2023 Estimated GFR (CKD-EPI) > 60.0 mL/Min [facility] Creatinine Clearance (Chem N/A [facility] Potassium [Moles/volume] in Serum or PlasmaOrdered By: Janna Escalera on 12-08-2023 Potassium [Moles/Vol] 3.6 mmol/L Normal 3.5-5.1 [facility] Comment on above: Performed By: #### E BS LIPID, EMP BMP #### [facility] [address] Serum or plasma anion gap de terminationOrdered By: Janna Escalera on 12-08-2023 Anion gap [Moles/Vol] 10.5 mmol/L Normal 6.0-15.0 [facility] Comment on above: Performed By: #### E BS LIPID, EMP BMP #### [facility] [address] Serum or plasma high density lipoprotein (HDL) cholesterol measurementOrdered By: Janna Escalera on 12-08-2023 Cholesterol in HDL [Mass/Vol] 62 mg/dL Normal 23-92 [facility] Comment on above: HDL CHOL ATP-III CLA SSIFICATION Cardiovascular RiskHDL > or equal to 60 mg/dL LOWHDL < 40 mg/dL HIGH Result Comment: HDL CHOL ATP-III CLASSIFICATION Cardiovascular Risk HDL > or equal to 60 mg/dL LOW HDL < 40 mg/dL HIGH Performed By: #### E BS LIPID, EMP BMP #### [facility] [address] [place] [address] Serum or plasma total choles terol/high density lipoprotein (HDL) cholesterol mass ratOrdered By: Janna Escalera on 12-08-2023 Cholesterol.total/Chol esterol in HDL [Mass ratio] 2.6 {ratio} Normal <5.0 [facility] Comment on above: Result Comment: PERF ORMED BY: [place] [address] PATHOLOGIST CUFF SLITTER CHERYL GEORGE M.D. Performed By: #### E BS LIPID, EMP BMP #### [facility] [address] Sodium [Moles/volume] in Ser um or PlasmaOrdered By: Janna Escalera on 12-08-2023 Sodium [Moles/Vol] 141 mmol/L Normal 136-145 [facility] Comment on above: Performed By: #### E BS LIPID, EMP BMP #### [facility] [address] Triglyceride [Mass/volume] i n Serum or PlasmaOrdered By: Janna Lali on 12-08-2023 Triglyceride [Mass/Vol] 87 mg/dL 0-149 [facility] Comment on above: TRIG ATP III CLASSIF ICATIONTRIG less than 150 mg/dL NormalTRIG 150-199 mg/dL Borderline highTRIG 200-500 mg/dL High TRIG greater than 500 mg/dL Very highStandard traceable to the Center for Disease Conrtrol and Prevention (CDC) test method. Urea nitrogen [Mass/volume] in Serum or PlasmaOrdered By: Janna Escalera on 12-08-2023 Urea nitrogen [Mass/Vol] 14 mg/dL Normal 7-25 [facility] Comment on above: Performed By: #### E BS LIPID, EMP BMP #### [facility] [address] MRI HIP RIGHT W CONTRASTon 1 [...] result Normal [facility] IR INJ ARTHROGRAM HIP RIGHTo n 06-05-2022 [...] 120.55 uGy cm 2 Views: 3 PROCEDURE: PAY STATION DEPARTMENT MANAGER: Elijah Houston This procedure was performed [...] result Normal [facility] Successful fluoroscopic-guided right hip arthrogram. Patient was transferred to MRI for further imaging. [facility] EXAMINATION: FLUOROSCOPIC GUIDED RIGHT HIP ARTHROGRAM, 06/05/2022 2:50 pm COMPARISON: None. HISTORY: ORDERING SYSTEM PROVIDED HISTORY: Tear of right acetabular labrum, initial encounter TECHNOLOGIST PROVIDED HISTORY: r/o R hip labral tear. MRI ordered Is the patient ?->No FLUOROSCOPY DOSE AND TYPE OR TIME AND EXPOSURES: Fluoro time 0.3 minutes DAP 120.55 uGy cm 2 Views: 3 PROCEDURE: PAY STATION DEPARTMENT MANAGER: Elijah Houston This procedure was performed [...] and left the Department in stable condition. [facility] Eric Dukes MD - [...] 120.55 uGy cm 2 Views: 3 PROCEDURE: PAY STATION DEPARTMENT MANAGER: Elijah Houston This procedure was performed [...] was transferred to MRI for further imaging. [employer] Phone: Radiology Study observation (narrative) [employer] Phone: IR INJ ARTHROGRAM HIP RIGHTO rdered By: Eric Dukes on 06-05-2022 [employer] Phone: 2018 Novel Coronavirus (CoVI D-19), SAMIR LCon 02-20-2021 SARS-CoV-2 (COVID-19) RNA SAMIR+probe Ql (Unsp spec) Not detected Invalid Interpretation Code Not Detected [facility] Comment on above: Result Comment: This nucleic acid amplification test was developed and its performance characteristics determined by for; to (do). Nucleic acid amplification tests include RT- PCR [...] detected) result in this assay. Performed At: [address] [id number] Maritza Uribe PhD Ph:[phone] Performed By: #### 6 [id number] #### [facility] (DEFAULT) [address] [place], [place] [id number] Consent Formson 02-19-2021 Consent Forms [id number] #[facility] [id number] #1.00[facility] Lab - Toxicology Resultson 0 02-19-2021 Lab - Toxicology Results [id number] #[facility] Outside Recordson 02-19-2021 Outside Records [id number] #1.00OTGTIFF [facility] Triage Industrialon 02-20-20 21 Drug Screen Complete Collected Normal [facility] Comment on above: Performed By: #### 1 [id number] #### [facility] (DEFAULT) [address] [place] [address] ED Clinical Summaryon 2020 ED Clinical Summary [facility] ? Urgent Care [address] [place] [address] Clinical Summary PERSON INFORMATION Name: MADDIE RAMAN Age: 25 Years Sex: FEMALE : 1995 MRN: Acct#: Visit Reason: Medical screening exam; VIKASH WATSON Arrival: 02/18/2021 13:01:04 Discharge: 02/18/2021 14:21:00 LOS: 000 01:20 Check In: 02/18/2021 13:01:04 Checkout: 02/18/2021 14:21:00 Address: [address] [facility] [address] PCP: Provider, Unlisted PROVIDER INFORMATION Provider Role [...] verbalizes understanding of instructions given Comment: Normal [facility] ED Patient Summaryon 021 ED Patient Summary [facility] ? Urgent Care [address] [place] [address] PATIENT DISCHARGE INSTRUCTIONS Patient Information Name: MADDIE RAMAN Age: 25 Years Date of : 1995 Reason For Visit: Medical screening exam; [facility] Arrival Time: 02/18/2021 13:01:04 Primary Care Physician: Provider, Unlisted Attending Physician: Adam Moncada PA-C Comment: Patient Education Medication Information: The exam and treatment you received today in the [facility] Emergency Department were for an urgent problem and are not intended as complete care. It is important for you to follow up with a doctor, nurse practitioner, or physician?s cosmetic sales assistant for ongoing care. If your symptoms [...] so we can reach you if necessary. [facility] Emergency Department has provided you with a complete list of medications post discharge. 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 manager packaging/provider of your visit and for further instruction on these medications. Any specific questions regarding your chronic medications and dosages should be discussed with your primary care physician(s) and/or pharmacist. Visit Information Visit Diagnosis: Diagnoses This Visit Medical screening exam ([id number]) If you received any narcotics, sedation, or [...] Reason for Visit: Patient arrives to for [place] physical Allergies: Substance Reaction Symptoms Type Comments [...] Disease Control and Prevention February 2014 Normal [facility] Urgent Care Note- Provideron 02-18-2021 Urgent Care Note- Provider Patient: MADDIE RAMAN Age: 25 years Sex: FEMALE : 1995 Associated Diagnoses: None Author: Adam Moncada PA-C Basic Information Additional information: Chief Complaint from Nursing Triage Note : Chief Complaint 02/18/2021 13:34 EDT Chief Complaint Patient arrives to for [place] physical . History of Present Illness Patient presents for a pre-employment physical. She is cleared for work. Exam is normal. See scanned document. PSYCHIATRIC: Mood and affect appropriate. Health Status Allergies: Allergic Reactions (Selected) No known allergies. Past Medical/ Family/ Social History Medical history: No active or resolved past medical history items have been selected or recorded.. Surgical history: Cholecystectomy ([id number]). Hip replacement ([id number]). delivery ([id number]). Cardiac ablation system ([id number]).. Family history: No family history items have [...] % Oxygen Therapy Room air . Normal [facility] [place] 021 Urgent Care Record [facility] ? Urgent Care [address] [place] [address] PATIENT DISCHARGE INSTRUCTIONS Patient Information Name: MADDIE RAMAN Age: 25 Years Date of : 1995 Reason For Visit: Medical screening exam; [facility] WATSON Arrival Time: 02/18/2021 13:01:04 Primary Care Physician: Provider, Unlisted Attending Physician: Adam Moncada PA-C Comment: Visit Diagnosis: Diagnoses This Visit Medical screening exam ([id number]) If you received any narcotics, sedation, or [...] you received today in the [facility] Urgent Care were for an urgent problem and are not intended as complete care. It is important for you to follow up with a doctor, nurse practitioner, or physician?s cosmetic sales assistant for ongoing care. If your symptoms [...] so we can reach you if necessary. [facility] has provided you with a complete list of medications post discharge. 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 manager packaging/provider of your visit and for further instruction [...] Disease Control and Prevention February 2014 Normal [facility] PROGESTERONEon 05-25-2020 Progesterone 3.3 ng/mL Normal [facility] Comment on above: Result Comment: Foll icular phase 0.1 - 0.9 Luteal phase 1.8 - 23.9 Ovulation phase 0.1 - 12.0 First trimester 11.0 - 44.3 Second trimester 25.4 - 83.3 Third trimester 58.7 - 214.0 Postmenopausal 0.0 - 0.1 Performed By: #### P ROSA #### [facility] [address] [address] Sebastian Ordoñez Hgb/Hcton 02-22-2019 Hematocrit (Bld) [Volume fraction] 28.7 % Low 36-46 [facility] Comment on above: Performed By: #### H H #### [facility] [address] [place] [address] [employer] Teacher: Remy Haq DO Hemoglobin (Bld) [Mass/Vol] 9.4 g/dL Low 12.0-16.0 [facility] Comment on above: Performed By: #### H H #### [facility] [address] [place] [address] [employer] Teacher: Remy Haq DO Basic Metabolic Profon 02-20 (cont.) Normal [facility] Comment on above: Result Comment: Aver age GFR for 20-29 years old: 116 mL/min/1.73sq m Chronic Kidney Disease: <60 mL/min/1.73sq m Kidney failure: <15 mL/min/1.73sq m eGFR calculated using average adult body mass. Additional eGFR calculator available at: http://www.Crowdwave/multiple_crcl_2012.htm Performed By: #### Joy YUN, BMP #### [facility] [address] [facility] [place] [address] [employer] Teacher: Remy Haq DO Anion gap [Moles/Vol] 13 mmol/L Normal 9-17 [facility] Comment on above: Performed By: #### Joy YUN, BMP #### [facility] [address] [facility] [place] [address] [employer] Teacher: Remy Haq DO Calcium [Mass/Vol] 8.8 mg/dL Normal 8.6-10.4 [facility] Comment on above: Performed By: #### Jyo YUN, BMP #### [facility] [address] [facility] [place] [address] [employer] Teacher: Remy Haq DO Chloride [Moles/Vol] 103 mmol/L Normal 98-107 [facility] Comment on above: Performed By: #### Joy YUN, BMP #### [facility] [address] [facility] [place] [address] [employer] Teacher: Remy Haq DO CO2 [Moles/Vol] 25 mmol/L Normal 20-31 [facility] Comment on above: Performed By: #### Joy YUN, BMP #### [facility] [address] [facility] [address] [employer] Teacher: Remy Haq DO Creatinine [Mass/Vol] 0.72 mg/dL Normal 0.50-0.90 [facility] Comment on above: Performed By: #### C BC, BMP #### [facility] [address] [facility] [place] [address] [employer]: Remy Haq, DO GFR, Amer >60 Normal >60 [facility] Comment on above: Performed By: #### C BC, BMP #### [facility] [address] [place] [address] [employer] Teacher: Remy Haq DO GFR,non Amer >60 Normal >60 [facility] Comment on above: Performed By: #### C BC, BMP #### [facility] [place] [address] [employer] Teacher: Remy Haq DO Glucose [Mass/Vol] 96 mg/dL Normal 70-99 [facility] Comment on above: Performed By: #### C JAMA, BMP #### [facility] [place] [address] [employer] Teacher: Remy Haq DO Potassium [Moles/Vol] 4.0 mmol/L Normal 3.7-5.3 [facility] Comment on above: Performed By: #### C JAMA, BMP #### [facility] [place] [address] [employer] Teacher: Remy Haq DO Sodium [Moles/Vol] 141 mmol/L Normal 135-144 [facility] Comment on above: Performed By: #### C BC, BMP #### [facility] [address] [place] [address] [employer]: Remy Haq DO Urea nitrogen [Mass/Vol] 10 mg/dL Normal 6-20 [facility] Comment on above: Performed By: #### C BC, BMP #### [facility] [address] [facility] [facility] [place] [address] [employer]: Remy Haq DO BUN/CRE Ratio NOT REPORTED Normal 9-20 [facility] Comment on above: Performed By: #### C BC, BMP #### [facility] [address] [facility] [place] [address] [employer] Teacher: Remy Haq DO Staging: NOT REPORTED Normal [facility] Comment on above: Performed By: #### C BC, BMP #### [facility] [place] [address] [employer] Teacher: Remy Haq DO CBCon 02-20-2019 Erythrocyte distribution width (RBC) [Ratio] 16.5 % High 11.5-14.9 [facility] Comment on above: Performed By: #### C JAMA, BMP #### [facility] [place] [address] [employer] Teacher: Remy Haq DO Hematocrit (Bld) [Volume fraction] 25.9 % Low 36-46 [facility] Comment on above: Performed By: #### C BC, BMP #### [facility] [place] [address] [employer] Teacher: Remy Haq DO Hemoglobin (Bld) [Mass/Vol] 8.6 g/dL Low 12.0-16.0 [facility] Comment on above: Performed By: #### C BC, BMP #### [facility] [place] [address] [employer]: Remy Haq DO MCH (RBC) [Entitic mass] 28.2 pg Normal 26-34 [facility] Comment on above: Performed By: #### C BC, BMP #### [facility] [place] [address] [employer]: Remy Haq DO MCHC (RBC) [Mass/Vol] 33.0 g/dL Normal 31-37 [facility] Comment on above: Performed By: #### Joy YUN, BMP #### [facility] [place] [address] [employer] Teacher: Remy Haq DO MCV (RBC) [Entitic vol] 85.4 fL Normal 80-100 [facility] Comment on above: Performed By: #### Joy YUN, BMP #### [facility] [address] [place] [address] [employer] Teacher: Remy Haq DO Platelet mean volume (Bld) [Entitic vol] 6.7 fL Normal 6.0-12.0 [facility] Comment on above: Performed By: #### Joy YUN, BMP #### [facility] [address] [place] [address] [employer]: Remy Haq DO Platelets (Bld) [#/Vol] 419 10*3/uL Normal 150-450 [facility] Comment on above: Performed By: #### Joy YUN, BMP #### [facility] [address] [place] [address] [employer] Teacher: Remy Haq DO RBC (Bld) [#/Vol] 3.03 10*6/uL Low 4.0-5.2 [facility] Comment on above: Performed By: #### Joy YUN, BMP #### [facility] [address] [place] [address] [employer] Teacher: Remy Haq DO WBC (Bld) [#/Vol] 6.3 10*3/uL Normal 3.5-11.0 [facility] Comment on above: Performed By: #### Joy YUN, BMP #### [facility] [address] [place] [address] [employer] Teacher: Remy Haq DO NRBC Automated NOT REPORTED Normal [facility] Comment on above: Performed By: #### C BC, BMP #### [facility] [address] [place] [address] [employer] Teacher: Remy Haq DO Hgb/Hcton 02-20-2019 Hematocrit (Bld) [Volume fraction] 29.6 % Low 36-46 [facility] Comment on above: Performed By: #### H H #### [facility] [place] [address] [employer] Teacher: Remy Haq DO Hemoglobin (Bld) [Mass/Vol] 9.7 g/dL Low 12.0-16.0 [facility] Comment on above: Performed By: #### H H #### [facility] [place] [address] [employer] Teacher: Remy Haq DO CBCon 02-19-2019 Erythrocyte distribution width (RBC) [Ratio] 16.6 % High 11.5-14.9 [facility] Comment on above: Performed By: #### C BC #### [facility] [address] [place], [place] [address] [place] [address] [employer] Teacher: Remy Haq DO Hematocrit (Bld) [Volume fraction] 23.2 % Low 36-46 [facility] Comment on above: Performed By: #### C BC #### [facility] [address] [facility] [address] [employer] Teacher: Remy Haq DO Hemoglobin (Bld) [Mass/Vol] 7.6 g/dL Low 12.0-16.0 [facility] Comment on above: Performed By: #### C BC #### [facility] [address] [place], [place] [address] [place] [address] [employer]: Remy Haq DO MCH (RBC) [Entitic mass] 27.8 pg Normal 26-34 [facility] Comment on above: Performed By: #### C BC #### [facility] [place] [address] [employer] Teacher: Remy Haq DO MCHC (RBC) [Mass/Vol] 32.7 g/dL Normal 31-37 [facility] Comment on above: Performed By: #### C BC #### [facility] [address] [place] [address] [employer]: Remy aHq DO MCV (RBC) [Entitic vol] 85.0 fL Normal 80-100 [facility] Comment on above: Performed By: #### C BC #### [facility] [address] [place] [address] [employer]: Remy Haq DO Platelet mean volume (Bld) [Entitic vol] 6.5 fL Normal 6.0-12.0 [facility] Comment on above: Performed By: #### C BC #### [facility] [address] [place] [address] [employer]: Remy Haq DO Platelets (Bld) [#/Vol] 444 10*3/uL Normal 150-450 [facility] Comment on above: Performed By: #### C BC #### [facility] [address] [place] [address] [employer] Teacher: Remy Haq DO RBC (Bld) [#/Vol] 2.73 10*6/uL Low 4.0-5.2 [facility] Comment on above: Performed By: #### C BC #### [facility] [address] [place], [place] [address] [place] [address] [employer]: Remy Haq DO WBC (Bld) [#/Vol] 5.1 10*3/uL Normal 3.5-11.0 [facility] Comment on above: Performed By: #### C BC #### [facility] [address] [facility] [place] [address] [employer]: Remy Haq DO NRBC Automated NOT REPORTED Normal [facility] Comment on above: Performed By: #### C BC #### [facility] [address] [facility] [place] [address] [employer]: Remy Haq DO Type + Crossmatchon 02-20-20 19 Type + Crossmatch Sample Expiration 02/22/2019 Arm Band Number [id number] ABO/Rh(D) A POSITIVE Antibody Screen NEGATIVE Blood Bank Comment Pt's ABRh confirmed as A POS:402 Results Verified BLANCHE, Polyspecific NEGATIVE BLANCHE, Anti-IgG Loreta Serum NEGATIVE Antibody Ident Anti-[place](A) Present Unit Number [id number] Blood Component Type Leukocyte Reduced Red Cell Unit Division 00 Status of Unit TRANSFUSED Transfusion Status OK TO TRANSFUSE Crossmatch Result COMPATIBLE Normal [facility] Comment on above: Performed By: #### T YX #### [facility] [place] [address] [employer]: Remy Haq DO Basic Metab w/rfx MGon 02-16 (cont.) Normal [facility] Comment on above: Result Comment: Aver age GFR for 20-29 years old: 116 mL/min/1.73sq m Chronic Kidney Disease: <60 mL/min/1.73sq m Kidney failure: <15 mL/min/1.73sq m eGFR calculated using average adult body mass. Additional eGFR calculator available at: http://www.ElectroCore.AirCell/multiple_crcl_2012.htm Performed By: #### B MPX, CBC #### [facility] [address] [facility] [place] [address] [employer]: Remy Haq DO Anion gap [Moles/Vol] 11 mmol/L Normal 9-17 [facility] Comment on above: Performed By: #### B MPX, CBC #### [facility] [address] [place] [address] [employer]: Remy Haq DO Calcium [Mass/Vol] 8.6 mg/dL Normal 8.6-10.4 [facility] Comment on above: Performed By: #### B MPX, CBC #### [facility] [address] [place] [address] [employer]: Remy Haq DO Chloride [Moles/Vol] 100 mmol/L Normal 98-107 [facility] Comment on above: Performed By: #### B MPX, CBC #### [facility] [address] [place] [address] [employer]: Remy Haq DO CO2 [Moles/Vol] 26 mmol/L Normal 20-31 [facility] Comment on above: Performed By: #### B MPX, CBC #### [facility] [place] [address] [employer]: Remy Haq DO Creatinine [Mass/Vol] 0.62 mg/dL Normal 0.50-0.90 [facility] Comment on above: Performed By: #### B MPX, CBC #### [facility] [address] [place] [address] [employer] Teacher: Remy Haq DO GFR, Amer >60 Normal >60 [facility] Comment on above: Performed By: #### B MPX, CBC #### [facility] [address] [place] [address] [employer] Teacher: Remy Haq DO GFR,non Amer >60 Normal >60 [facility] Comment on above: Performed By: #### B MPX, CBC #### [facility] [address] [place] [address] [employer]: Remy Haq DO Glucose [Mass/Vol] 95 mg/dL Normal 70-99 [facility] Comment on above: Performed By: #### B MPX, CBC #### [facility] [address] [place] [address] [employer] Teacher: Remy Haq DO Potassium [Moles/Vol] 4.2 mmol/L Normal 3.7-5.3 [facility] Comment on above: Performed By: #### B MPX, CBC #### [facility] [address] [place] [address] [employer]: Remy Haq DO Sodium [Moles/Vol] 137 mmol/L Normal 135-144 [facility] Comment on above: Performed By: #### B MPX, CBC #### [facility] [place] [address] [employer] Teacher: Remy Haq DO Urea nitrogen [Mass/Vol] 11 mg/dL Normal 6-20 [facility] Comment on above: Performed By: #### B MPX, CBC #### [facility] [place] [address] [employer] Teacher: Remy Haq DO BUN/CRE Ratio NOT REPORTED Normal 9-20 [facility] Comment on above: Performed By: #### B MPX, CBC #### [facility] [address] [place] [address] [employer] Teacher: Remy Haq DO Staging: NOT REPORTED Normal [facility] Comment on above: Performed By: #### B MPX, CBC #### [facility] [address] [place] [address] [employer]: Remy Haq DO CBCon 02-16-2019 Erythrocyte distribution width (RBC) [Ratio] 16.3 % High 11.5-14.9 [facility] Comment on above: Performed By: #### B MPX, CBC #### [facility] [address] [place] [address] [employer]: Remy Haq DO Hematocrit (Bld) [Volume fraction] 22.4 % Low 36-46 [facility] Comment on above: Performed By: #### B MPX, CBC #### [facility] [address] [place] [address] [employer]: Remy Haq DO Hemoglobin (Bld) [Mass/Vol] 7.6 g/dL Low 12.0-16.0 [facility] Comment on above: Performed By: #### B MPX, CBC #### [facility] [address] [place] [address] [employer]: Remy Haq DO MCH (RBC) [Entitic mass] 29.4 pg Normal 26-34 [facility] Comment on above: Performed By: #### B MPX, CBC #### [facility] [address] [place] [address] [employer]: Remy Haq DO MCHC (RBC) [Mass/Vol] 33.8 g/dL Normal 31-37 [facility] Comment on above: Performed By: #### B MPX, CBC #### [facility] [address] [place] [address] [employer]: Remy Haq DO MCV (RBC) [Entitic vol] 87.1 fL Normal 80-100 [facility] Comment on above: Performed By: #### B MPX, CBC #### [facility] [address] [place] [address] [employer]: Remy Haq DO Platelet mean volume (Bld) [Entitic vol] 6.4 fL Normal 6.0-12.0 [facility] Comment on above: Performed By: #### B MPX, CBC #### [facility] [address] [place] [address] [employer]: Remy Haq DO Platelets (Bld) [#/Vol] 503 10*3/uL High 150-450 [facility] Comment on above: Performed By: #### B MPX, CBC #### [facility] [place] [address] [employer]: Remy Haq DO RBC (Bld) [#/Vol] 2.57 10*6/uL Low 4.0-5.2 [facility] Comment on above: Performed By: #### B MPX, CBC #### [facility] [place] [address] [employer]: Remy Haq DO WBC (Bld) [#/Vol] 7.5 10*3/uL Normal 3.5-11.0 [facility] Comment on above: Performed By: #### B MPX, CBC #### [facility] [place] [address] [employer]: Remy Haq DO NRBC Automated NOT REPORTED Normal [facility] Comment on above: Performed By: #### B MPX, CBC #### [facility] [place] [address] [employer]: Remy Haq DO Basic Metabolic Panel w/ Ref savanah to MGon 02-15-2019 Anion gap [Moles/Vol] 14 mmol/L 9 - 17 mmol/L [place] Bun/Cre Ratio NOT REPORTED [facility] [place] Calcium [Mass/Vol] 8.4 mg/dL Low 8.6 - 10. 4 mg/dL [place] Chloride [Moles/Vol] 102 mmol/L 98 - 10 7 mmol/L [place] CO2 [Moles/Vol] 24 mmol/L 20 - 31 mmol/L [place] Creatinine [Mass/Vol] 0.57 mg/dL 0.5 - 0.9 mg/dL [place] GFR >60 >60 mL/min [place], [place] GFR Non- >60 >60 mL/min [place] GFR/1.73 sq M predicted among non-blacks MDRD (S/P/Bld) [Vol rate/Area] [place] Comment on above: Average GFR for 20-2 9 years old: 116 mL/min/1.73sq m Chronic Kidney Disease: <60 mL/min/1.73sq m Kidney failure: <15 mL/min/1.73sq m eGFR calculated using average adult body mass. Additional eGFR calculator available at: http://www.Crowdwave/multiple_crcl_2012.htm GFR/1.73 sq M predicted among non-blacks MDRD (S/P/Bld) [Vol rate/Area] NOT REPORTED [place] Glucose [Mass/Vol] 106 mg/dL High 70 - 99 mg/dL [place] Interpretation and review of laboratory results Abnormal [place] Potassium [Moles/Vol] 4.0 mmol/L 3.7 - 5.3 mmol/L [place] Sodium [Moles/Vol] 140 mmol/L 135 - 144 mmol/L [place] Urea nitrogen [Mass/Vol] 11 mg/dL 6 - 20 mg/dL [place] CBC WITH AUTO DIFFERENTIALon 02-15-2019 Basophils (Bld) [#/Vol] 0.06 10*3/uL [place] Basophils/100 WBC (Bld) 1 % 0 - 2 % [place] Differential Type NOT REPORTED [place] Eosinophils (Bld) [#/Vol] 0.33 10*3/uL [place] Eosinophils/100 WBC (Bld) 5 % High 1 - 4 % [place] Erythrocyte distribution width (RBC) [Ratio] 15.3 % High 11.8 - 14.4 % [place] Hematocrit (Bld) [Volume fraction] 24.9 % Low 36.3 - 47.1 % [place] Hemoglobin (Bld) [Mass/Vol] 7.5 g/dL Low 11.9 - 15.1 g/dL [place] Immature granulocytes (Bld) [#/Vol] 1 % High 0 [place] Immature granulocytes (Bld) [#/Vol] 0.10 10*3/uL [place] Interpretation and review of laboratory results Abnormal [place] Lymphocytes (Bld) [#/Vol] 1.93 10*3/uL [place] Lymphocytes/100 WBC (Bld) 27 % 24 - 43 % [place] MCH (RBC) [Entitic mass] 28.2 pg 25.2 - 33.5 pg [place] MCHC (RBC) [Mass/Vol] 30.1 g/dL 28.4 - 34.8 g/dL [place] MCV (RBC) [Entitic vol] 93.6 fL 82.6 - 102.9 fL [place] Monocytes (Bld) [#/Vol] 0.60 10*3/uL [place] Monocytes/100 WBC (Bld) 8 % 3 - 12 % [place] Platelet mean volume (Bld) [Entitic vol] 9.0 fL 8.1 - 13.5 fL [place] Platelets (Bld) [#/Vol] 458 10*3/uL [place] Platelets (Bld) [#/Vol] NOT REPORTED [place] RBC (Bld) [#/Vol] 2.66 10*6/uL Low 3.95 - 5.1 1 m/uL [place] RBC morphology finding Nom (Bld) ANISOCYTOSIS PRESENT [place], [place] Segmented neutrophils/100 WBC (Bld) 58 % 36 - 65 % [place] Segs Absolute 4.19 [place] WBC (Bld) [#/Vol] 7.2 10*3/uL [place] WBC (Bld) [#/Vol] 0.0 10*3/uL 0.0 per 10 0 WBC [place] WBC Morphology NOT REPORTED [place] Basic Metabolic Panel w/ Ref savanah to MGon 02-13-2019 Anion gap [Moles/Vol] 13 mmol/L 9 - 17 mmol/L [place] Bun/Cre Ratio NOT REPORTED [place] Calcium [Mass/Vol] 8.5 mg/dL Low 8.6 - 10. 4 mg/dL [place] Chloride [Moles/Vol] 105 mmol/L 98 - 10 7 mmol/L [place] CO2 [Moles/Vol] 23 mmol/L 20 - 31 mmol/L [place] Creatinine [Mass/Vol] 0.46 mg/dL Low 0.5 - 0.9 mg/dL [place] GFR >60 >60 mL/min [place], [place] GFR Non- >60 >60 mL/min [place] GFR/1.73 sq M predicted among non-blacks MDRD (S/P/Bld) [Vol rate/Area] NOT REPORTED [place] GFR/1.73 sq M predicted among non-blacks MDRD (S/P/Bld) [Vol rate/Area] [place] Comment on above: Average GFR for 20-2 9 years old: 116 mL/min/1.73sq m Chronic Kidney Disease: <60 mL/min/1.73sq m Kidney failure: <15 mL/min/1.73sq m eGFR calculated using average adult body mass. Additional eGFR calculator available at: http://www.ElectroCore.AirCell/multiple_crcl_2012.htm Glucose [Mass/Vol] 86 mg/dL 70 - 99 mg/dL [place] Interpretation and review of laboratory results Abnormal [place] Potassium [Moles/Vol] 4.3 mmol/L 3.7 - 5.3 mmol/L [place] Sodium [Moles/Vol] 141 mmol/L 135 - 144 mmol/L [place] Urea nitrogen [Mass/Vol] 9 mg/dL 6 - 20 mg/dL [place] CBC WITH AUTO DIFFERENTIALon 02-13-2019 Basophils (Bld) [#/Vol] 0.06 10*3/uL [place] Basophils/100 WBC (Bld) 1 % 0 - 2 % [place] Differential Type NOT REPORTED [place] Eosinophils (Bld) [#/Vol] 0.40 10*3/uL [place] Eosinophils/100 WBC (Bld) 5 % High 1 - 4 % [place] Erythrocyte distribution width (RBC) [Ratio] 14.8 % High 11.8 - 14.4 % [place] Hematocrit (Bld) [Volume fraction] 25.0 % Low 36.3 - 47.1 % [place] Hemoglobin (Bld) [Mass/Vol] 7.4 g/dL Low 11.9 - 15.1 g/dL [place] Immature granulocytes (Bld) [#/Vol] 2 % High 0 [place] Immature granulocytes (Bld) [#/Vol] 0.14 10*3/uL [place] Interpretation and review of laboratory results Abnormal [place] Lymphocytes (Bld) [#/Vol] 2.18 10*3/uL [place] Lymphocytes/100 WBC (Bld) 25 % 24 - 43 % [place] MCH (RBC) [Entitic mass] 27.1 pg 25.2 - 33.5 pg [place] MCHC (RBC) [Mass/Vol] 29.6 g/dL 28.4 - 34.8 g/dL [place] MCV (RBC) [Entitic vol] 91.6 fL 82.6 - 102.9 fL [place] Monocytes (Bld) [#/Vol] 0.66 10*3/uL [facility] BLAINE Monocytes/100 WBC (Bld) 8 % 3 - 12 % [place] Platelet mean volume (Bld) [Entitic vol] 8.9 fL 8.1 - 13.5 fL [facility] BLAINE Platelets (Bld) [#/Vol] 440 10*3/uL [place] Platelets (Bld) [#/Vol] NOT REPORTED [place] RBC (Bld) [#/Vol] 2.73 10*6/uL Low 3.95 - 5.1 1 m/uL [place] RBC morphology finding Nom (Bld) ANISOCYTOSIS PRESENT [place] Segmented neutrophils/100 WBC (Bld) 61 % 36 - 65 % [place] Segs Absolute 5.37 [place] WBC (Bld) [#/Vol] 0.0 10*3/uL 0.0 per 10 0 WBC [place] WBC (Bld) [#/Vol] 8.8 10*3/uL [place] WBC Morphology NOT REPORTED [place] ECHO Complete 2D W Doppler W Coloron 02-13-2019 Transthoracic Echocardiography Report (TTE) Patient Name CECI PERKINS Date of Study 02/13/2019 C Date of 1995 Gender Female Age 23 year(s) Race Unknown Room Number 0240 Height: 65 inch, 165.1 cm Corporate ID [id number] Weight: 301 pounds, 136.5 kg # Patient Acct [id number] BSA: 2.35 m^2 BMI: 50.09 kg/m^2 # MR # [id number] Curriculum And Instruction Specialist Kaylen Jasso Interpreting Physician Anthony Keating Fellow Referring Nurse Practitioner Interpreting Referring Physician MICHAEL MURDOCK MD Fellow Type of Study TTE procedure:2D Echocardiogram, M-Mode, Doppler, Color Doppler. Procedure Date Date: 02/13/2019 Start: 08:48 AM Study Location: [facility] Technical Quality: Adequate visualization Indications:Irregula r [...] velocity:0.17 m/s Lateral Wall E/E':5.8 [facility] [place], [place] Tamir, Mhpn Incoming Cardio Results From [facility] - 02/13/2019 2:01 PM EDT Transthoracic Echocardiography Report (TTE) Patient Name CECI PERKINS Date of Study 02/13/2019 C Date of 1995 Gender Female Age 23 year(s) Race Unknown Room Number 0240 Height: 65 inch, 165.1 cm Corporate ID [id number] Weight: 301 pounds, 136.5 kg # Patient Acct [id number] BSA: 2.35 m^2 BMI: 50.09 kg/m^2 # MR # [id number] Curriculum And Instruction Specialist Kaylen Jasso Interpreting Physician Anthony Keating Fellow Referring Nurse Practitioner Interpreting Referring Physician MICHAEL MURDOCK MD Fellow Type of Study TTE procedure:2D Echocardiogram, M-Mode, Doppler, Color Doppler. Procedure Date Date: 02/13/2019 Start: 08:48 AM Study Location: [facility] Technical Quality: Adequate visualization Indications:Irregula r [...] Wall E' velocity:0.17 m/s Lateral Wall E/E':5.8 [facility], [place] EKG 12 Leadon 02-11-2019 Atrial Rate 99 BPM [facility], [place] P [place] 69 degrees [facility], [place] P-R Interval 136 ms [facility], [place] Q-T Interval 344 ms [facility], [place] QRS Duration 80 ms [facility], [place] QTc Calculation (Bazett) 441 ms [facility], [place] R [place] 16 degrees [facility] [place], [place] T [place] 4 degrees [facility], [place] Ventricular Rate 99 BPM [facility], [place] Tamir, Mhpn Incoming Ekg [place] [facility] [place]/11/[place] 11:00 AM EDT Normal sinus rhythm Cannot rule out Anterior infarct , age undetermined Abnormal ECG When compared with ECG of 31-JAN-2019 19:55, No significant change was found [facility], [place] Normal sinus rhythm Cannot rule out Anterior infarct , age undetermined Abnormal ECG When compared with ECG of 31-JAN-2019 19:55, No significant change was found [facility] [place] HEMOGLOBIN AND HEMATOCRIT, Adam Campbell 02-11-2019 Hematocrit (Bld) [Volume fraction] 27.0 % Low 36.3 - 47.1 % [place] Hemoglobin (Bld) [Mass/Vol] 8.3 g/dL Low 11.9 - 15.1 g/dL [place] Interpretation and review of laboratory results Abnormal [place] Microscopic Urinalysison Amorphous, UA NOT REPORTED None [place] Bacteria, UA NOT REPORTED None [place], [place] Casts UA [place] Crystals UA NOT REPORTED None /HPF [place], [place] Epithelial Cells UA 0 TO 2 [place] Mucus, UA NOT REPORTED None [place], [place] Other Observations UA NOT REPORTED NOT REQ. M [place] RBC (U) [#/Vol] 5 TO 10 [place] Comment on above: Reference range defi xiomy for non-centrifuged specimen. Renal Epithelial, Urine NOT REPORTED 0 /HPF [place] Trichomonas, UA NOT REPORTED None [place], [place] WBC, UA TOO NUMEROUS TO COUNT [place] Yeast, UA NOT REPORTED None [place], [place] - [place] URINALYSISon 02-11-2019 Bilirubin Urine Negative NEGATIVE [place] Color, UA YELLOW YELLOW [place], [place] Glucose, Ur Negative NEGATIVE [place] Interpretation and review of laboratory results Abnormal [place] Ketones Ql (U) Negative NEGATIVE [place] Leukocyte esterase Test strip Ql (U) LARGE Abnormal NEGATIVE [place] Nitrite, Urine Negative NEGATIVE [place] pH, UA 5.0 [place] Protein (U) [Mass/Vol] Negative NEGATIVE [place], [place] Specific [place], UA 1.013 [place], [place] Turbidity UA CLOUDY Abnormal CLEAR [place], [place] Urinalysis Comments NOT REPORTED [place] Urine Hgb MODERATE Abnormal NEGATIVE [place] Urobilinogen, Urine Normal Normal [place] HEMOGLOBIN AND HEMATOCRIT, B LOODon 02-10-2019 Hematocrit (Bld) [Volume fraction] 22.5 % Low 36.3 - 47.1 % [place] Hemoglobin (Bld) [Mass/Vol] 6.8 g/dL Critically low 11.9 - 15.1 g/dL [place] Interpretation and review of laboratory results Abnormal [place] TYPE AND SCREENon 02-10-2019 ABO/Rh Positive [place], [place] Arm Band Number [id number] [place] Blood product type Nom (BPU) Leukocyte Reduced Red Cell [place] Crossmatch Result COMPATIBLE [facility] Jasmin [place] Dispense Status TRANSFUSED [place] Expiration Date 02/10/2019 [place] Transfusion Status OK TO TRANSFUSE M [place] Unit Divison 0 [place], [place] Unit Number [id number] [place], [place] CT PELVIS WO CONTRAST Additi onal Contrast? Noneon 02-09-2019 Tamir, Mhpn Incoming Radiant Results From [facility] [facility] - 02/09/2019 12:47 PM EDT EXAMINATION: CT [...] extends anterior to the inferior pubic ramus. [place], [place] EXAMINATION: CT OF THE PELVIS WITHOUT [...] chris edema and small foci of air. [place] 1. Improved alignment of the right posterior wall acetabular fracture status post ORIF. 2. Small intra-articular right hip loose bodies. 3. The long screw extends anterior to the inferior pubic ramus. [place] HEMOGLOBIN AND HEMATOCRIT, B Shannan 02-09-2019 Hematocrit (Bld) [Volume fraction] 19.2 % Low 36.3 - 47.1 % [place] Hemoglobin (Bld) [Mass/Vol] 5.9 g/dL Critically low 11.9 - 15.1 g/dL [place], [place] Comment on above: TEST CONFIRMED Interpretation and review of laboratory results Abnormal [place] Hematocrit (Bld) [Volume fraction] 21.2 % Low 36.3 - 47.1 % [place] Hemoglobin (Bld) [Mass/Vol] 6.6 g/dL Critically low 11.9 - 15.1 g/dL [place], [place] Comment on above: TEST CONFIRMED Interpretation and review of laboratory results Abnormal [place] Hematocrit (Bld) [Volume fraction] 23.6 % Low 36.3 - 47.1 % [place] Hemoglobin (Bld) [Mass/Vol] 7.2 g/dL Low 11.9 - 15.1 g/dL [place] Interpretation and review of laboratory results Abnormal [place] CV HGB/HCTon 02-08-2019 Hematocrit (Bld) [Volume fraction] 24.4 % [place] Hemoglobin (Bld) [Mass/Vol] 7.8 g/dL gm/dL [place], [place] POCT urine pregnancyon 02-08 Beta HCG ( test) Ql (U) Negative NEGATIVE [place], [place] Comment on above: Specimens with hCG [...] 02-08-2019 Tamir, Mhpn Incoming Radiant Results From [facility] - 02/08/2019 1:24 PM EDT EXAMINATION: THREE XRAY VIEWS OF THE RIGHT FOOT 02/08/2019 1:12 pm COMPARISON: Right ankle radiographs February 01, 2019 HISTORY: ORDERING SYSTEM PROVIDED HISTORY: Trauma/Fracture TECHNOLOGIST PROVIDED HISTORY: Trauma/Fracture FINDINGS: No fracture or dislocation. IMPRESSION: No acute osseous abnormality [place] EXAMINATION: THREE XRAY VIEWS OF THE RIGHT FOOT 02/08/2019 1:12 pm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 pressure 99 mm[Hg] [facility] 10-11-2024 09:59-0400 Body mass index (BMI) [Ratio] 43.6 kg/m2 Carey Pena NP Work Phone: [facility] 10-11-2024 09:59-0400 Body weight 118.84 kg Carey Pena DRUM TESTER Work Phone: [facility] 10-11-2024 09:59-0400 Diastolic blood pressure 74 mm[Hg] Carey Pena DRUM TESTER Work Phone: [facility] 10-11-2024 09:59-0400 Systolic blood pressure 118 mm[Hg] Carey Pena DRUM TESTER Work Phone: [facility] 10-05-2024 08:28-0400 Body height 165.1 cm Liang Fitzgerald MD Work Phone: [facility] 10-05-2024 08:28-0400 Body mass index (BMI) [Ratio] 43.1 kg/m2 Liang Fitzgerald MD Work Phone: [facility] 10-05-2024 08:28-0400 Body weight 117.48 kg Liang Fitzgerald MD Work Phone: [facility] 10-05-2024 08:28-0400 Diastolic blood pressure 74 mm[Hg] Liang Fitzgerald MD Work Phone: [facility] 10-05-2024 08:28-0400 Systolic blood pressure 124 mm[Hg] Liang Fitzgerald MD Work Phone: [facility] 09-26-2024 10:09-0400 Body mass index (BMI) [Ratio] 42.9 kg/m2 Cedric Alana DO Work Phone: [facility] 09-26-2024 10:09-0400 Body weight 116.94 kg Cedric Alana DO Work Phone: [facility] 09-26-2024 10:09-0400 Diastolic blood pressure 70 mm[Hg] Cedric Alana DO Work Phone: [facility] 09-26-2024 10:09-0400 Systolic blood pressure 110 mm[Hg] Cedric Alana DO Work Phone: [facility] 08-24-2024 08:32-0500 Body height 166.4 cm Jordan Urbina MD Work Phone: [facility] 08-24-2024 08:32-0500 Body mass index (BMI) [Ratio] 40.86 kg/m2 Jordan Urbina MD Work Phone: [facility] 08-24-2024 08:32-0500 Body weight 113.13 kg Jrodan Urbina MD Work Phone: [facility] 08-24-2024 08:32-0500 Diastolic blood pressure 78 mm[Hg] Jordan Urbina MD Work Phone: [facility] 08-24-2024 08:32-0500 Heart rate 77 /min Jordan Urbina MD Work Phone: [facility] 08-24-2024 08:32-0500 Systolic blood pressure 116 mm[Hg] Jordan Urbina MD Work Phone: [facility] 07-31-2024 11:34-0500 Body mass index (BMI) [Ratio] 39.94 kg/m2 Zoraida Travis PA Work Phone: [facility] 07-31-2024 11:34-0500 Body weight 108.86 kg Zoraida Angy PA Work Phone: [facility] 07-31-2024 11:34-0500 Diastolic blood pressure 64 mm[Hg] Zoraida Angy PA Work Phone: [facility] 07-31-2024 11:34-0500 Systolic blood pressure 102 mm[Hg] Zoraida Angy PA Work Phone: [facility] 06-15-2024 09:53-0500 Body mass index (BMI) [Ratio] 39.41 kg/m2 Cedric Alana DO Work Phone: [facility] 06-15-2024 09:53-0500 Body weight 107.41 kg Cedric Alana DO Work Phone: [facility] 06-15-2024 09:53-0500 Diastolic blood pressure 68 mm[Hg] Cedric Alana DO Work Phone: [facility] 06-15-2024 09:53-0500 Systolic blood pressure 108 mm[Hg] Cedric Alana DO Work Phone: [facility] 03-15-2024 07:43-0400 Body height 166.4 cm Ally Craig APRN-CLINIC SPECIALIST Work Phone: [facility] 03-15-2024 07:43-0400 Body mass index (BMI) [Ratio] 39.38 kg/m2 Ally Craig APRN-CLINIC SPECIALIST Work Phone: [facility] 03-15-2024 07:43-0400 Body temperature 98.6 [degF] Ally Craig APRN-CLINIC SPECIALIST Work Phone: [facility] 03-15-2024 07:43-0400 Body weight 109.05 kg Ally Craig APRN-CLINIC SPECIALIST Work Phone: [facility] 03-15-2024 07:43-0400 Diastolic blood pressure 74 mm[Hg] Ally Craig APRN-CLINIC SPECIALIST Work Phone: [facility] 03-15-2024 07:43-0400 Heart rate 80 /min Ally Craig APRN-CLINIC SPECIALIST Work Phone: [facility] 03-15-2024 07:43-0400 SaO2% (BldA) [Mass fraction] 98 % Ally Craig APRN-CLINIC SPECIALIST Work Phone: [facility] 03-15-2024 07:43-0400 Systolic blood pressure 124 mm[Hg] Ally Craig APRN-CLINIC SPECIALIST Work Phone: [facility] 12-22-2023 14:07-0400 Body height 166.4 cm Ally Craig APRN-CLINIC SPECIALIST Work Phone: [facility] 12-22-2023 14:07-0400 Body mass index (BMI) [Ratio] 37.02 kg/m2 Ally Craig APRN-CLINIC SPECIALIST Work Phone: [facility] 12-22-2023 14:07-0400 Body temperature 98.49 [degF] Ally Craig APRN-CLINIC SPECIALIST Work Phone: [facility] 12-22-2023 14:07-0400 Body weight 102.51 kg Ally Craig APRN-CLINIC SPECIALIST Work Phone: [facility] 12-22-2023 14:07-0400 Diastolic blood pressure 70 mm[Hg] Ally Craig COURT MANAGER-CLINIC SPECIALIST Work Phone: [facility] 12-22-2023 14:07-0400 Heart rate 81 /min Ally Craig COURT MANAGER-CLINIC SPECIALIST Work Phone: [facility] 12-22-2023 14:07-0400 SaO2% (BldA) [Mass fraction] 98 % Ally Craig COURT MANAGER-CLINIC SPECIALIST Work Phone: [facility] 12-22-2023 14:07-0400 Systolic blood pressure 128 mm[Hg] Ally Craig COURT MANAGER-CLINIC SPECIALIST Work Phone: [facility] 08-26-2023 14:39-0500 Body height 166.4 cm Doc Guevara MD Work Phone: [facility] 08-26-2023 14:39-0500 Body mass index (BMI) [Ratio] 36.04 kg/m2 Doc Guevara MD Work Phone: [facility] 08-26-2023 14:39-0500 Body weight 99.79 kg Doc Guevara MD Work Phone: [facility] 08-26-2023 14:39-0500 Diastolic blood pressure 73 mm[Hg] Doc Guevara MD Work Phone: [facility] 08-26-2023 14:39-0500 Heart rate 73 /min Doc Guevara MD Work Phone: [facility] 08-26-2023 14:39-0500 Systolic blood pressure 134 mm[Hg] Doc Guevara MD Work Phone: [facility] 02-15-2019 08:59-0400 Body Temperature 98.1 [degF] Alejandrina Centeno [facility] [place] 02-15-2019 08:59-0400 BP Diastolic 54 mm[Hg] Alejandrina Centeno [facility] , [place] 02-15-2019 08:59-0400 BP Systolic 129 mm[Hg] Alejandrina Cochran [facility] , [place] 02-15-2019 08:59-0400 Pulse (Heart Rate) 89 /min Alejandrina Cochran [facility], [place] 02-15-2019 08:59-0400 Pulse Oximetry 93 % Alejandrina Cochran [facility] , [place] 02-15-2019 08:59-0400 Respiratory Rate 18 /min [facility] [place] 01-31-2019 19:57-0400 BMI (Body Mass Index) 50.09 kg/m2 Alejandrina Cochran [facility], [place] 01-31-2019 19:57-0400 Body weight 136.53 kg Alejandrina Cochran [facility] , [place] 01-31-2019 19:57-0400 Height 165.1 cm Alejandrina Cochran [facility] , [place] Encounters Encounter Date Encounter Type Care Provider Facility Start: 11-17-2024 End: 11-17-2024 Clinisync Result Encounter Cedric Alana DO Work Phone: [facility] Unsolicited Start: 11-17-2024 End: 11-17-2024 Clinisync Result Encounter Cedric Alana DO Work Phone: [facility] Unsolicited Start: 11-14-2024 End: 11-14-2024 Bamboo flowsheet Cedric Alana DO Work Phone: [facility] Start: 11-14-2024 End: 11-14-2024 Bamboo flowsheet Cedric Alana DO Work Phone: [facility] Start: 11-14-2024 End: 11-14-2024 flow sheet Cedric Alana DO Work Phone: [facility] Comment on above: 35 weeks gestation o f ; Third trimester Start: 11-14-2024 End: 11-14-2024 ambulatory CEDRIC ALANA Not Available Start: 11-09-2024 End: 11-09-2024 ambulatory ZORAIDA TRAVIS Not Available Start: 11-06-2024 End: 11-06-2024 Office outpatient visit 15 minutes Jordan Urbina MD Work Phone: [facility] Comment on above: History of sleeve ga strectomy (Primary Dx) Start: 11-06-2024 End: 11-06-2024 ambulatory ALLY A KIARA [facility] Start: 11-03-2024 End: 11-03-2024 Clinisync Result [...] [facility] OB Start: 10-22-2024 End: 10-22-2024 ambulatory [facility] Work Phone: Start: 10-22-2024 End: 10-22-2024 Patient encounter procedure [facility] Phys[facility] Work Phone: Start: 10-20-2024 End: 10-20-2024 ambulatory JORDAN URBINA [facility] Start: 10-20-2024 End: 10-20-2024 Office outpatient visit 25 minutes Jordan Urbina MD Work Phone: [facility] Comment on above: History of sleeve ga strectomy (Primary Dx); Hx of supraventricular tachycardia Start: 10-11-2024 End: 10-11-2024 Bamboo flowsheet Carey Pena DRUM TESTER Work Phone: [facility] Start: 10-11-2024 End: 10-11-2024 Bamboo flowsheet Carey Pena DRUM TESTER Work Phone: [facility] Start: 10-11-2024 End: 10-11-2024 ambulatory CAREY PENA Not Available Start: 10-11-2024 End: 10-11-2024 flow sheet Carey Pena DRUM TESTER Work Phone: [facility] Comment on above: Third trimester preg belkis; 30 weeks gestation of Start: 10-05-2024 End: 10-05-2024 Office outpatient new 45 minutes Liang Fitzgerald MD Work Phone: [facility] Comment on above: Hx of supraventricul ar tachycardia (Primary Dx) Start: 10-05-2024 End: 10-27-2024 ambulatory [facility] Start: 09-29-2024 End: 09-29-2024 Orders Only Triny Morales RN [facility] Comment on above: History of sleeve ga strectomy (Primary Dx); Hx of supraventricular tachycardia; Encounter for follow-up ultrasound of anatomy; Encounter for anatomic survey Start: 09-28-2024 End: 09-28-2024 ambulatory [facility] Start: 09-26-2024 End: 09-26-2024 Bamboo flowsheet Cedric Warner DO Work Phone: [facility] Start: 09-26-2024 End: 09-26-2024 Bamboo flowsheet Cedric Alana DO Work Phone: [facility] Start: 09-26-2024 End: 09-26-2024 flow sheet Cedric Alana DO Work Phone: [facility] Comment on above: Third trimester preg belkis; 28 weeks gestation of Start: 09-26-2024 End: 09-26-2024 ambulatory CEDRIC JOYCEO Not Available Start: 08-29-2024 End: 08-29-2024 ambulatory ZORAIDA TRAVIS Not Available Start: 08-24-2024 End: 08-24-2024 Office consultation new/estab patient 60 min Jordan Urbina MD Work Phone: [facility] Comment on above: History of sleeve ga strectomy (Primary Dx); Hx of supraventricular tachycardia Start: 08-24-2024 End: 08-24-2024 Orders Only Cindy Walton RN [facility] Comment on above: History of sleeve ga strectomy (Primary Dx); Hx of supraventricular tachycardia; Encounter for follow-up ultrasound of anatomy Start: 08-14-2024 End: 08-14-2024 Chart abstracting Jordan Urbina MD Work Phone: [facility] Start: 08-05-2024 End: 08-05-2024 Clinisync Result [...] Patient encounter procedure Zoraida SEGOVIA Work Phone: [facility] Start: 07-31-2024 End: 07-31-2024 Periodic preventive med est patient 18-39 yrs Zoraida SEGOVIA Work Phone: [facility] Comment on above: Screening, , for anatomic survey; Well woman exam with routine gynecological exam; Second trimester ; Exposure to STD Start: 07-31-2024 End: 07-31-2024 ambulatory ZORAIDA TRAVIS Not Available Start: 07-23-2024 End: 07-24-2024 Refill Ally Craig [employer] Work Phone: [facility] Comment on above: Chest cold; Acute cough; Wheezing Start: 07-16-2024 End: 07-17-[address] [employer] Work Phone: [facility] Comment [...] sheet Cedric Alana DO Work Phone: [facility] Comment on above: , unspecifi ed [...] 05-29-2024 Office outpatient visit 5 minutes [facility] Alana Nurse [facility] Comment on above: GA: 12w4d Start: [...] End: 05-08-2024 Clinisync Result Encounter Cedric Alana Work Phone: [facility] External Department Unsolicited Start: 05-02-2024 End: 05-04-[address] [employer] Work Phone: [facility] General Surgery-Bariatric Comment on above: History of sleeve ga strectomy; Postsurgical malabsorption; Malnutrition following gastrointestinal surgery Start: 03-20-2024 End: 03-20-[address] [employer] Work Phone: [facility]-Bariat[facility] Comment on above: History of sleeve ga strectomy; Postsurgical malabsorption; Malnutrition following gastrointestinal surgery; Vitamin B12 deficiency Start: 03-15-2024 End: 03-15-2024 [facility] Start: 03-15-2024 End: 03-15-2024 Office outpatient visit [address] [employer] Work Phone: [facility] Comment on above: History of sleeve ga strectomy (Primary Dx); Malnutrition following gastrointestinal surgery; Chronic fatigue; Sinus pressure; Lipid screening; Weight gain; Mixed anxiety and depressive disorder; BMI 39.0-39.9,adult Start: 03-15-2024 End: 03-15-2024 [facility] Comment on above: History of sleeve ga strectomy (Primary Dx); Postsurgical malabsorption; Malnutrition following gastrointestinal surgery; History of anemia Start: 02-15-2024 End: 02-16-2024 Orders Only Ally Craig [address] [employer] Work Phone: [facility] Comment on above: Lumbar disc herniati on Start: 01-25-2024 End: 01-25-2024 Telephone encounter Pat Cotter CMA [facility] Start: 01-20-2024 End: 01-20-2024 [facility] Start: 01-20-2024 End: 01-20-2024 ambulatory RADHA GAN [facility] Comment on above: Dysuria (Primary Dx) Start: 12-27-2023 End: 12-28-2023 Telephone encounter Ally Craig COURT MANAGER-CLINIC SPECIALIST Work Phone: [facility] Start: 12-22-2023 End: 12-22-2023 Office outpatient visit [address] MANAGER-CLINIC SPECIALIST Work Phone: [facility] Comment on above: Lumbar disc herniati on (Primary Dx) Start: 12-22-2023 End: 12-22-2023 ambulatory [facility] Start: 12-08-2023 End: 12-08-2023 ambulatory NON STAFF [facility] Work Phone: Start: 12-08-2023 End: 12-08-2023 Departed Referred [facility] [address] Work Phone: Start: 08-26-2023 End: 08-26-2023 Office outpatient new 45 minutes Doc Guevara MD Work Phone: [facility] Reconstructive/Plast ic Surgery Comment on above: History of sleeve ga strectomy; Localized adiposity Start: 08-26-2023 End: 08-26-2023 ambulatory DOC GUEVARA [facility] Start: 06-07-2023 End: 06-07-2023 ambulatory [facility] Start: 06-05-2022 End: 06-08-2022 ambulatory [facility] Start: 06-05-2022 End: 06-07-2022 Subsequent hospital visit by physician Eddie Interventional Radiologist [facility] Special Procedures Comment on above: Tear of right acetab ular labrum, initial encounter Start: 03-19-2022 End: 03-19-2022 ambulatory Jeane Canela Other [employer] Other Start: 03-19-2022 Telephone encounter Jeane [facility] Start: 05-24-2020 End: 05-25-[address] CEDRIC WARNER Facility: Start: 02-15-2019 End: 02-22-2019 Evaluation and management of inpatient TERRI AUGUSTIN [facility] Start: 01-31-2019 End: 02-15-2019 Evaluation and management of inpatient Alejandrina Centeno Work Phone: [facility] Comment on above: Closed nondisplaced fracture of head of left radius, initial encounter (Primary Dx); Closed dislocation of right hip, initial encounter (HCC); Traumatic rectus hematoma, initial encounter Procedures Date Procedure Procedure Detail Performing Clinician Start: 11-17-2024 OB BPP W NON-STRESS Cedric Alana DO Work Phone: Start: 11-14-2024 Urnls dip stick/tabl et rgnt non-auto w/o micrscp Cedric Alana DO Work Phone: Start: 11-03-2024 US OB BPP W NON-STRESS Cedric Alana DO Work Phone: Start: 10-30-2024 OB BPP W NON-STRESS Cedric Alana DO [...] Start: 08-05-2024 US OB CERVICAL LENGTH A my Angy SEGOVIA Work Phone: Start: 07-31-2024 RECURRENT VAGINITIS [...] et rgnt non-auto w/o micrscp Radha Gan COURT MANAGER-CLINIC SPECIALIST Work Phone: Start: 11-09-2022 Adult depression scr [...] TERRI AUGUSTIN Start: 02-15-2019 DIETARY NUTRITION SUPPLEMENTS TERRIMIRACLE AUGUSTIN [...] TERRI AUGUSTIN Start: 02-15-2019 IP CONSULT TO ASSISTANT ENGINEER AL MEDICINE TERRI AUGUSTIN Start: 02-15-2019 IP CONSULT TO RECREA TION THERAPY TERRI DEMETRIA Start: 02-15-2019 IP CONSULT TO SOCIAL WORK [...] Brooke HAH Start: 02-15-2019 NOTIFY PHYSICIAN (SPECIFY) TERIR AUGUSTIN Start: 02-15-2019 PATIENT STATUS (DIRECT) TERRIMIRACLE AUGUSTIN Start: 02-15-2019 REMOVE AND REPLACE T ED HOSE DAILY TERRI AUGUSTIN Start: 02-15-2019 VITAL SIGNS TERRI Castellanos Start: 02-15-2019 ELEVATE HEELS OFF OF BED TERRI AUGUSTIN Start: 02-15-2019 HEAD OF BED 60 DEGRE ES OR LESS TERRI AUGUSTIN Start: 02-15-2019 NURSING COMMUNICATION S CHIQUIMIRACLE AUGUSTIN Start: 02-15-2019 TURN PATIENT TERRIGelacio Castellanos Start: 02-15-2019 INCENTIVE SPIROMETRY NURSING TERRI [...] 02-08-2019 Radex wrist complete minimum 3 views [employer] Work Phone: Start: 02-08-2019 Ct pelvis w/o contra st material [employer] Work Phone: Start: 02-08-2019 Radex foot complete minimum 3 views [employer] Work Phone: Start: 02-08-2019 Radiologic exam pelv is compl minimum 3 views [employer] Work Phone: Start: 02-08-2019 CV HGB/HCT Donn Benavidez Work Phone: Start: 02-08-2019 Radiologic exam pelv is compl minimum 3 views Mary A [employer] Work Phone: Start: 02-08-2019 End: 02-08-2019 ACETABULUM OPEN REDUCTION INTERNAL FIXATION Mary A [employer] Work Phone: Start: 02-08-2019 Urine test visual [...] 02-01-2019 25 hydroxy includes fractions if performed [place] [place] [employer] Work Phone: Start: 02-01-2019 Hepatic function panel [place] [employer] Work Phone: Start: 02-01-2019 Ct lumbar spine w/o contrast material Federico [employer] Work Phone: Start: 02-01-2019 Ct thoracic spine w/ o contrast material Federico [employer] Work Phone: Start: 02-01-2019 Ct thorax w/contrast material Federico [employer] Work Phone: Start: 02-01-2019 Ct cervical spine w/ o contrast material Federico [employer] Work Phone: Start: 02-01-2019 Ct head/brain w/o co ntrast material Federico Fabens Work Phone: Start: 02-01-2019 Radiologic examinati on knee 3 views Leonel [employer] Work Phone: Start: 02-01-2019 Radex wrist complete minimum 3 views [place] [employer] Work Phone: Start: 02-01-2019 Radex wrist 2 views Mil [employer] Work Phone: Start: 02-01-2019 Radiologic examinati on femur minimum 2 views Leonel Jenna [employer] Work Phone: Start: 02-01-2019 Radiologic examinati on tibia & fibula 2 views Leonel [employer] Work Phone: Start: 02-01-2019 Radex hip unilateral with pelvis 2-3 views Leonel But[employer] Work Phone: Start: 02-01-2019 PULSE OXIMETRY, CONTINUOUS Federico [employer] Work Phone: Start: 01-31-2019 END TIDAL CO2 CONTINUOUS Federico [employer] Work Phone: Start: 01-31-2019 Radex hip unilateral with pelvis 2-3 views Federico [employer] Work Phone: Start: 01-31-2019 Radex wrist complete minimum 3 views Federico [employer] Work Phone: Start: 01-31-2019 Basic metabolic pane l calcium total Federico [employer] Work Phone: Start: 01-31-2019 Blood count complete auto&auto difrntl wbc Federico [employer] Work Phone: Start: 01-31-2019 Gonadotropin chorion ic qualitative Federico [employer] Work Phone: Start: 01-31-2019 Ecg routine ecg w/le ast 12 lds i&r only Federico [employer]ens Work Phone: Start: 01-31-2019 EKG REPORT Hpf Scanni ng Plan of Treatment Date Care Activity Detail Author Start: 07-31-2027 Screening for malign ant neoplasm of cervix [facility] Start: 11-06-2025 Adult BMI Screening Adult BMI Screen ing [facility] Start: 10-05-2025 Adult BMI Screening Adult BMI Screen ing [facility] Start: 10-05-2025 Tobacco Screening Tobacco Screening [facility] Start: 09-29-2025 End: 09-29-2025 US MFM with or without consult US MFM with or without consult Imaging Routine History of sleeve gastrectomy Hx of supraventricular tachycardia Encounter for follow-up ultrasound of anatomy Encounter for anatomic survey Expected: 09/29/2025 (Approximate), Expires: 09/29/2025 [employer] Work Phone: Comment on above: Expected: 09/29/2025 (Approximate), Expires: 09/29/2025 Start: 08-24-2025 Adult BMI Screening Adult BMI Screen ing [facility] Start: 08-24-2025 Tobacco Screening Tobacco Screening [facility] Start: 08-24-2025 End: 08-24-2025 US MFM with or without consult US MFM with or without consult Imaging Routine History of sleeve gastrectomy Hx of supraventricular tachycardia Encounter for follow-up ultrasound of anatomy Expected: 08/24/2025 (Approximate), Expires: 08/24/2025 [employer] Work Phone: Comment on above: Expected: 08/24/2025 (Approximate), Expires: 08/24/2025 Start: 03-15-2025 Adult BMI Screening Adult BMI Screen ing [facility] Start: 03-15-2025 Tobacco Screening Tobacco Screening [facility] Start: 02-19-2025 Influenza vaccination [facility] Start: 01-19-2025 Tobacco Screening Tobacco Screening [facility] Start: 12-21-2024 Adult BMI Screening Adult BMI Screen ing [facility] Start: 12-21-2024 Tobacco Screening Tobacco Screening [facility] Start: 11-22-2024 End: 11-22-2024 Patient encounter procedure 11/22/2024 9:50 AM EDT Routine [facility] [address] [place] [address] Zoraida Travis PA [address] [place], [place] [id number] [facility] Start: 11-18-2024 DTaP,Tdap and Td Vaccines (7 - Td or Tdap) DTaP,Tdap and Td Vaccines (7 - Td or Tdap) [facility] Start: 11-18-2024 DTaP/Tdap/Td vaccine (7 - Td or Tdap) DTaP/Tdap/Td vaccine (7 - Td or Tdap) [facility] Start: 11-18-2024 DTaP/Tdap/Td vaccine (7 - Td) DTaP/Tdap/Td vaccine (7 - Td) [facility] [place] Start: 11-14-2024 End: 11-14-2025 CULTURE, GROUP B STREP WITH SUSCEPTIBLITY CULTURE, GROUP B STREP WITH SUSCEPTIBLITY Lab Routine Third trimester Expected: 11/14/2024, Expires: 11/14/2025 [facility] Work Phone: Comment on above: Expected: 11/14/2024 , Expires: 11/14/2025 Start: 11-14-2024 End: 11-14-2024 Patient encounter procedure 11/14/2024 1:50 PM EDT Routine [facility] [address] [place] [address] Cedric Warner DO [address] [place], [place] [phone] Arrived [facility] Comment on above: Arrived Start: 11-10-2024 End: 11-10-2024 Patient encounter procedure 11/10/2024 9:15 AM EDT Office Visit [facility] [address] [place] [phone] Liang Fitzgerald MD [address] [place] [address] [facility] Start: 11-09-2024 End: 11-09-2024 Patient encounter procedure 11/09/2024 9:50 AM EDT Routine [facility] [address] [place] [address] Zoraida Travis PA [address] [place], [place] [phone] [facility] Start: 11-06-2024 End: 11-06-2024 Patient encounter procedure 11/06/2024 11:00 AM EDT Appointment [facility] [address] [place] [phone] [facility] Start: 10-25-2024 End: 10-25-2024 Patient [...] 9:45 AM EDT Telemedicine [facility] [address] [place] [phone] Jordan Urbina MD [address] [place] [address] [facility] Start: 10-11-2024 End: 10-11-2024 Patient encounter procedure 10/11/2024 9:40 AM EDT Routine [facility] [address] [place] [phone] Zoraida Travis PA [address] [place] [address] [facility] Start: 10-05-2024 End: 10-05-2025 Wireless Telemetry (In Office) [facility] Work Phone: Comment on above: Expected: 10/05/2024 , Expires: 10/05/2025 Start: 10-05-2024 End: 10-05-2024 Patient encounter procedure 10/05/2024 8:30 AM EDT Office Visit [facility] [address] [place] [phone] Liang Fitzgerald MD [address] [place] [address] [facility] Start: 09-28-2024 End: 09-28-2024 Patient encounter procedure 09/28/2024 2:45 PM EDT Appointment [facility] [address] [place] [address] [facility] Start: 09-26-2024 End: 09-26-2024 Patient encounter procedure 09/26/2024 9:50 AM EDT Routine [facility] [address] [place] [place] [phone] Cedric Warner DO [address] [place], [place] [phone] Arrived [facility] Comment on above: Arrived Start: 08-29-2024 End: 08-29-2024 Patient encounter procedure 08/29/2024 8:30 AM EDT Routine [facility] [address] [place] [address] Zoraida Travis PA [address] [place] [address] [facility] Start: 08-25-2024 Adult BMI Screening Adult BMI Screen ing [facility] Start: 08-25-2024 Tobacco Screening Tobacco Screening [facility] Start: 08-24-2024 End: 08-24-2024 Patient encounter procedure [facility] Start: 07-31-2024 End: 07-31-2025 US for US OB 14+ weeks anatomy scan Imaging Routine Screening, , for anatomic survey Expected: 07/31/2024, Expires: 07/31/2025 [facility] Comment on above: Expected: 07/31/2024 , Expires: 07/31/2025 Start: 07-31-2024 End: 07-31-2024 Patient encounter procedure 07/31/2024 11:30 AM EST Routine [facility] [address] [place] [address] Zoraida Travis PA [address] [place] [address] [place] [address] Arrived [facility] Comment on above: [...] gestational age Expected: 05/29/2024 (Approximate), Expires: 05/29/2025 [facility] Comment on above: Expected: 05/29/2024 [...] first trimester Expected: 05/29/2024 (Approximate), Expires: 05/29/2025 [facility] Comment on above: Expected: 05/29/2024 (Approximate), Expires: 05/29/2025 Start: 05-29-2024 End: 05-29-2024 ambulatory 05/29/2024 8:30 AM EST Initial [facility] [address] [place] [phone] [facility] Start: 05-29-2024 End: 05-29-2024 Professional / ancillary services management 05/29/2024 8:00 AM EST Ancillary Procedure [facility] [address] [place] [phone] [facility] Start: 05-17-2024 End: 05-17-2024 Patient encounter procedure 05/17/2024 7:40 AM EST Office Visit [facility] [address] [place] [address] [place] [phone] Ally Craig, COURT MANAGER-CLINIC SPECIALIST [address] [facility], [address] [place], [place] [phone] [facility] Start: 05-11-2024 End: 05-11-2024 Patient encounter procedure 05/11/2024 1:30 PM EST Office Visit [facility] [address] [place] [phone] Giulia Samayoa PA-C [address] [place] [id number] [facility] Start: 03-30-2024 End: 03-30-2024 Patient encounter procedure 03/30/2024 2:00 PM EDT Office Visit [facility] [address] [place] [phone] Giulia Samayoa PA-C [address] [place] [phone] [facility] Start: 03-15-2024 End: 03-15-2025 Calcium [Mass/volume] in Serum or Plasma Calcium Lab Routine History of sleeve 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 History of anemia Expected: 03/15/2024, Expires: 03/15/2025 [employer] Phone: Comment on above: Expected: 03/15/2024 , Expires: 03/15/2025 Start: 03-15-2024 End: 03-15-2025 CBC W Auto Differential panel -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
[2024-11-21 08:33] VITALS: BP 123/71; PULSE 89
== END 2024-11-21 08:04 | disposition home or self-care (01) ==
LOC: FBCO 08:03
PROVIDERS: PCP Nurse Practitioner; Visit Provider Obstetrics & Gynecology
DX: O26.893 Other specified pregnancy related conditions, third trimester (principal); Z3A.36 36 weeks gestation of pregnancy
CPT/HCPCS: 76815

== ENCOUNTER 2024-11-24 14:57 | Outpatient (OUT) | payer OTHER, SELFPAY ==
--- OUTSIDE RECORDS SUMMARY | 2023-09-30 06:30 | XMS_ITS ---
Author Organization [facility]ices Address [address], [place] [id number] Care Team Providers Care Rock Loader Name Role Phone Kelli Hyde Unavailable [phone] Dionne Grande Unavailable [phone] REASON FOR VISIT 2 week f/u Medications [...] Problem Status W/U Status Risk Notes Problem 573094102 Anxiety with depression (F41.8) Active confirmed Encounters Encounter Location Date Provider Diagnosis Main [address] [place], [place] [address] 09/30/2023 Dionne Grande Bipolar disorder F31 .9 ; [facility] current use of antipsychotic medication Z79.899 and Anxiety with depression F41.8 Assessments Encounter Date Diagnosis (ICD Code) Assessment Notes Treatment Notes Treatment Clinical Notes Section Notes 09/30/2023 Bipolar disorder (ICD-10 - F31.9) needs improvement Schedule wellness with PCP. Obtain ordered labs. 09/30/2023 [facility] current use of antipsychotic medication (ICD-10 - [...] * Jana RAMANDOB:1995 ( 29 yo F)Acc No.[id number]:09/30/2023 Patient: Sean SOTO Jana Provider: TANYA Centeno :1995 A ge:28 Y S ex:Female Date:09/30/2023 Address:[address] [place] [phone] Subjective: * Chief Complaints: * 1 . [...] Problems: * Billing Information: * Visit Code: 93343 Office Visit Est 10 -19 minutes. * Procedure Codes: Care Plan Details* * Electronic signature of TANYA Peters on 11/24/2024 at 02:59 PM EDT Sign off status: Pending * Provider: TANYA Centeno Date: 0 09/30/2023 Generated for Jc eason/William/Rony on: 0 11/24/2024 02:59 PM EDT
--- OUTSIDE RECORDS SUMMARY | 2024-01-07 05:00 | XMS_ITS ---
Author Organization [facility] Address [address] [place] [address] Care Team Providers Care Property Field Adjuster Name Role Phone Pascale Mcmahon Unavailable [phone] REASON FOR VISIT LUMBAR PAIN Encounters Encounter Location Date Provider Diagnosis [facility] Office [address] [place] [address] [place] [address] 01/07/[address] [facility]uelas Lumbar back pain M54.50 Assessments Encounter Date Diagnosis (ICD Code) Assessment Notes Treatment Notes Treatment Clinical Notes Section Notes 01/07/2024 Lumbar back pain (ICD-10 - M54.50) Plan Of Treatment Pending Test Test Name Order Date Lumbar spine 2v flex and ext - 04029 Progress Notes * RE CULLENCA CDOB:1995 (29 yo F)Acc No.[id number]:01/07/2024 Patient: MADDIE VEGA Provider: Edwardo García MD, PhD :1995 A ge:28 Y S ex:Female Date:01/07/2024 Address:[address] [place], [place] [id number] Subjective: * Chief Complaints: * 1 . LUMBAR PAIN. * Medical History: Objective: * Vitals: Assessment: * Assessment: 1. L umbar back pain - M54.50 (Primary) Plan: * Treatment: Forms: * Images: * Electronic signature of Selv on [facility] Jessenia MD, PHD on 11/24/2024 at 02:58 PM EDT Sign off status: Pending * Provider: Edwardo García MD, PhD Date: 01/07/2024 Generated for Printi ng/William/Lauraitting on: 0 11/24/2024 02:58 PM EDT
--- OUTSIDE RECORDS SUMMARY | 2024-11-14 13:50 | XMS_ITS | Encounter Summary ---
Author Organization [facility] Address [address] [place] [address] Care Team Providers Care Clinical Psychology Teacher Name Role Phone Unavailable Primary Care Provider Unavailabl e Reason for Visit * Reason Comments Routine Visit Encounter Details Date Type Department Care Team (Late st Contact Info) Description 11/14/2024 1:50 PM EDT Routine [facility] OB [address] [facility] [place] [place] [id number] Cedric Warner, DO [address] [place] [address] 35 weeks gestation of ; Third trimester [...] documented in this encounter Progress Notes * Smita Knowles LPN - 11/14/2024 1:50 PM EDT Reason for Appointment: Patient ID: Jana [...] nursing note reviewed. Exam conducted with a pickle pumper present. Vitals: Estimated body mass index is 45 kg/m?? as calculated from the following: Height as of 11/24/22: 5' 5 . Weight as of this encounter: 270 lb 6.4 oz. BP: 120/80 No LMP recorded. Patient is . ASSESSMENT & PLAN ICD-10-CM 1. 35 weeks gestation of Z3A.35 POCT urinalysis dipstick manually resulted 2. Third trimester Z34.93 POCT urinalysis dipstick manually resulted CULTURE, GROUP B STREP WITH SUSCEPTIBLITY CULTURE, GROUP B STREP WITH SUSCEPTIBLITY Patient is doing well but has complaints of being tired and having maternal discomfort due to . Patient verbalized frequent movement and was instructed to perform kick counts three times per day. labor precautions were given, LARC consent was signed/declined, and GBS was obtained. Orders Placed This Encounter Procedures CULTURE, GROUP B STREP WITH SUSCEPTIBLITY POCT urinalysis dipstick manually resulted Follow Up: Patient is to return to office in 1 week for routine OB appointment Documented by Smita Knowles LPN on behalf of: Cedric Warner DO documented in this encounter Plan of Treatment Scheduled Orders Name Type Priority Associated Diagnoses [...]
--- OUTSIDE RECORDS SUMMARY | 2024-11-20 04:00 | XMS_ITS ---
Author Organization [facility] vices Address [address], [place] [id number] Care Team Providers Care Rig Manager Name Role Phone Mary Ellen Kelli Unavailable [phone] REASON FOR VISIT Bi Polar disorder Social History Sex Assigned At : Social History Observation Description Sex Assigned At Female Encounters Encounter Location Date Provider Diagnosis Main [address] [place] [id number] 11/20/2024 Kelli Hyde Plan Of Treatment No Information Progress Notes * Jana ORNELASDOB:1995 ( 29 yo F)Acc No.[id number]:11/20/2024 Patient: Jana VEGA Provider: TANYA Regalado :1995 A ge:29 Y S ex:Female Date:11/20/2024 Address:[address] [place], [place] [id number] Subjective: * Chief Complaints: * 1 . Bi Polar disorder. * Medical History: Objective: * Vitals: Assessment: Plan: * Treatment: Care Plan: * Problems: * Billing Information: * Visit Code: * Procedure Codes: Care Plan Details* * Electronic signature of TANYA Dixon on 11/24/2024 at 02:59 PM EDT Sign off status: Pending * Provider: TANYA Regalado Date: 11/20/2024 Generated for Jc ng/William/eTransmitting on: 11/24/2024 02:59 PM EDT
--- OUTSIDE RECORDS SUMMARY | 2024-11-22 04:30 | XMS_ITS ---
Author Organization [facility] vices Address [address] [place], [place] [address] Care Team Providers Care Certified Nuclear Medicine Technologist Name Role Phone Mary Ellen Kelli Unavailable [phone] REASON FOR VISIT f/u Social History Sex Assigned At : Social History Observation Description Sex Assigned At Female Encounters Encounter Location Date Provider Diagnosis Main [address] [place] [id number] 11/22/2024 Kelli Hyde Plan Of Treatment No Information Progress Notes * Jana ORNELASDOB:1995 ( 29 yo F)Acc No.[id number]:11/22/2024 Patient: Jana VEGA Provider: TANYA Regalado :1995 A ge:29 Y S ex:Female Date:11/22/2024 Address:[address] [place], [place] [phone] Subjective: * Chief Complaints: * 1 . F/u. * Medical History: Objective: * Vitals: Assessment: Plan: * Treatment: Care Plan: * Problems: * Billing Information: * Visit Code: * Procedure Codes: Care Plan Details* * Electronic signature of TANYA Dixon on 11/24/2024 at 02:59 PM EDT Sign off status: Pending * Provider: TANYA Regalado Date: 11/22/2024 Generated for Jc ng/Fachrissyg/eTransmitting on: 11/24/2024 02:59 PM EDT
--- OUTSIDE RECORDS SUMMARY | 2024-11-24 14:59 | XMS_ITS | Encounter Summary ---
Author Organization [facility] Address [id number] [address] [place] [address] Care Team Providers Care Hogshead Dumper Name Role Phone Ally Craig COLLECTION ANALYST-FELT MACHINE MECHANIC Primary Care Provi collin Encounter Details Date Type Department Care Team (Late st Contact Info) Description 06/08/2022 Orders Only [facility] [address] [place] [address] [place] [address] External, Scanning Provider Social History [...] Author D/C Home General Yes Yaneth Bright, COLLECTION ANALYST-FELT MACHINE MECHANIC Note: Evaluation of progress towards goal: Pt [...] documented as of this encounter Care Teams Hogshead Dumper Relationship Specialty Start Date End Date Ally Craig, RAFA-FELT MACHINE MECHANIC [address] [place] [address] PCP - General Family Medicine 04/12/18 documented as of this encounter
--- OUTSIDE RECORDS SUMMARY | 2024-11-24 14:59 | XMS_ITS | Encounter Summary ---
Author Organization [facility] Address [address] [place] [address] Care Team Providers Care Claims Adjuster Name Role Phone Unavailable Primary Care Provider Unavailabl e Encounter Details Date Type Department Care Team (Late st Contact Info) Description 11/21/2024 Clinisync Result Encounter [facility] External Department Unsolicited Arminda Warner, DO [address] [facility] [place] [address] Social History Tobacco Use Types Packs/Day Years [...] Name Priority Date/Time Associated Diagnosis Comments US AMNIOTIC FLUID VOLUME 11/21/2024 8:59 AM EDT documented in this encounter Results * US AMNIOTIC FLUID VOLUME (11/21/2024 8:59 AM EDT) Anatomical Region Laterality Modality Radiographic Felisha ging 11/21/2024 8:59 AM EDT Narrative 11/21/2024 9:06 AM EDT [facility] [address] [place] [address] Ultrasound Report Signed Patient: MADDIE RAMAN MR#: [id number] : 1995 Acct:[id number] Age/Sex: 29 / F ADM Date: 11/21/24 Loc: [facility] 250-[address]: Arminda Warner D.O. Ordering Physician: Arminda Warner D.O. Date of Service: 11/21/24 Procedure(s): US OB amniotic fluid vol Accession Number(s): [id number] cc: Arminda Warner D.O.; Ally Craig NP The [place] [address] Patient Name: MADDIE RAMAN MRN: [id number] date: 1995 Sex: F Assigned Patient Location: [facility] Current Patient Location: Accession/Order Number: [id number] Exam Date: 11/21/2024 08:56 Report Date: 11/21/2024 08:59 At the request of: ARMINDA WARNER DO Procedure: US OB amniotic fluid vol ULTRASOUND OB AMNIOTIC FLUID VOLUME COMPARISON: 11/17/2024 CLINICAL DATA: Oligohydramnios There is a single live intrauterine gestation in cephalic presentation. The reported gestational age is 36 weeks 5 days. There is cardiac and somatic activity with heart rate of 153 beats per minutes. The LANETTE measures 15.3 cm. This is now in normal range. US/US OB amniotic fluid vol IMPRESSION: NORMAL AMNIOTIC FLUID VOLUME. Impression dictated by: Smita Jensen M.D. 11/21/2024 8:59 AM Dictation Location: [place] [address] Electronically authenticated by: [id number] Y Date: 11/21/2024 08:59 Dictated By: Smita Jensen M.D. Signed By: 11/21/24 0906 DD/ 0859 TD/TT: Advertising Editor: Procedure Note Radiology, Radiologist, - 11/21/2024 [place] [address] Ultrasound Report Signed Patient: MADDIE RAMAN CMR#: [id number] : 1995Acct:[id number] Age/Sex: 29 / FADM Date: 11/21/24 Loc: [facility] 250-[address]: Arminda Warner D.O. Ordering Physician: Arminda Warner D.O. Date of Service: 11/21/24 Procedure(s): US OB amniotic fluid vol Accession Number(s): [id number] cc: Arminda Warner D.O.; Ally Craig NP [place] [address] Patient Name: MADDIE RAMAN MRN: [id number] date: 1995 Sex: F Assigned Patient Location: [facility] Current Patient Location: Accession/Order Number: [id number] Exam Date: 11/21/2024 08:56 Report Date: 11/21/2024 08:59 At the request of: ARMINDA WARNER DO Procedure: US OB amniotic fluid vol ULTRASOUND OB AMNIOTIC FLUID VOLUME COMPARISON: 11/17/2024 CLINICAL DATA: Oligohydramnios There is a single live intrauterine gestation in cephalic presentation.The reported gestational age is 36 weeks 5 days. There is cardiac and somatic activity with heart rate of 153 beats per minutes. The AFImeasures 15.3 cm. This is now in normal range. US/US OB amniotic fluid vol IMPRESSION: NORMAL AMNIOTIC FLUID VOLUME. Impression dictated by: Smita Jensen M.D. 11/21/2024 8:59 AM Dictation Location: [place] [address] Electronically authenticated by: [id number] Y Date: 508:59 Dictated By: Smita Jensen M.D. Signed By:11/21/24 0906 DD/ 0859 TD/TT: Advertising Editor: Arminda Warner DO IMG XR PROCEDURES Final Result documented in this encounter Visit Diagnoses Not on filedocumented in this encounter
--- OUTSIDE RECORDS SUMMARY | 2024-11-24 14:59 | XMS_ITS | Encounter Summary ---
Author Organization [facility] tem Address [facility] [address] [place] [address] Care Team Providers Care City Clerk Name Role Phone Ally Craig BOILER MECHANIC-ETCHER APPRENTICE Primary Care Provi collin Reason for Visit * Reason Comments Med Change Request Encounter Details Date Type Department Care Team (Late st Contact Info) Description 11/15/2024 Refill Maternal- Medicine at [facility] [address] [place] [phone] Erlin Chung MD [address] [facility] [address] [place] [address] History of sleeve gastrectomy Social History Tobacco [...] Author D/C Home General Yes Yaneth Bright, BOILER MECHANIC-ETCHER APPRENTICE Note: Evaluation of progress towards goal: Pt plans to d/c home with self care and family support. documented as of this encounter Visit Diagnoses Diagnosis History of sleeve gastrectomy documented in this encounter Additional Health Concerns Assessment Noted Time PHQ-9 Depression Total Score: 19 023 10:14 AM EDT documented as of this encounter Care Teams City Clerk Relationship Specialty Start Date End Date Ally Craig, BOILER MECHANIC-ETCHER APPRENTICE [address] [place] [address] PCP - General Family Medicine 04/12/18 documented as of this encounter
--- OUTSIDE RECORDS SUMMARY | 2024-11-24 14:59 | XMS_ITS | Patient Health Record ---
Author Organization [facility] Address [address] [place] [address] Care Team Providers Care Sizing Sprayer Name Role Phone Pascale Mcmahon Unavailable [phone] Reason For Referral No Information Plan Of Treatment No Information Insurance Providers Payer Name Payer Address Payer Phone Subscriber Number Group Number Insured Name Patient Relationship to Insured Coverage Start Date Coverage End Date Medicaid [employer] [place] [address] [place] [phone] [id number] MADDIE ORNELAS Self - patient is the insured
--- OUTSIDE RECORDS SUMMARY | 2024-11-24 14:59 | XMS_ITS | Encounter Summary ---
Author Organization [facility] Address [address] [place] [address] Care Team Providers Care Coffee Attendant Name Role Phone Unavailable Primary Care Provider Unavailabl e Encounter Details Date Type Department Care Team (Late st Contact Info) Description 11/17/2024 Clinisync Result Encounter [facility] External Department Unsolicited Arminda Warner, DO [address] [facility] [place] [address] Social History Tobacco Use Types [...] PM EDT Narrative 11/17/2024 3:48 PM EDT [facility] [address] [place] [address] Ultrasound Report Signed Patient: MADDIE RAMAN MR#: [id number] : 1995 Acct:[id number] Age/Sex: 29 / F ADM Date: 11/17/24 Loc: [facility] 250-[address]: Arminda Warner D.O. Ordering Physician: Arminda Warner D.O. Date of Service: 11/17/24 Procedure(s): US OB BPP w non-stress Accession Number(s): [id number] cc: Arminda Warner D.O.; Ally Craig NP [place] [address] Patient Name: MADDIE RAMAN MRN: [id number] date: 1995 Sex: F [place] [facility] [place] [facility] [place] Accession/Order Number: [id number] Exam Date: 11/17/2024 15:43 Report Date: 11/17/2024 [...] Diaz M.D. 11/17/2024 3:46 PM Dictation Location: [place] [address] Electronically authenticated by: [id number] Y Date: 11/17/2024 15:46 Dictated By: Anthony Diaz D.O. Signed By: 11/17/24 1548 DD/ 1546 TD/TT: Electrician Office: Procedure Note Radiology, Radiologist, - 11/17/2024 [place] [address] Ultrasound Report Signed Patient: MADDIE RAMAN CMR#: [id number] : 1995Acct:[id number] Age/Sex: 29 / FADM Date: 11/17/24 Loc: [facility] 250-[address]: Arminda Warner D.O. Ordering Physician: Arminda Warner D.O. Date of Service: 11/17/24 Procedure(s): US OB BPP w non-stress Accession Number(s): [id number] cc: Arminda Warner D.O.; Ally Craig NP [place] [address] Patient Name: MADDIE RAMAN MRN: [id number] date: 1995 Sex: F [place]igned [place] [facility] [place] [facility] [place] Accession/Order Number: [id number] Exam Date: 11/17/2024 15:43 Report Date: 11/17/2024 [...] Diaz M.D. 11/17/2024 3:46 PM Dictation Location: [place] [address] Electronically authenticated by: [id number] Y Date: 5:46 Dictated By: Anthony Diaz D.O. Signed By:11/17/24 1548 DD/ 1546 TD/TT: Electrician Office: Arminda Warner DO [facility] Final Result documented in this encounter Visit Diagnoses Not on filedocumented in this encounter
--- OUTSIDE RECORDS SUMMARY | 2024-11-24 14:59 | XMS_ITS | Encounter Summary ---
Author Organization [facility] Address [address] [place] [address] Care Team Providers Care Crown Buffer Name Role Phone Unavailable Primary Care Provider Unavailabl e Encounter Details Date Type Department Care Team (Late st Contact Info) Description 11/08/2024 Abstract [facility] OB [address] [place] [address] Cedric Warner, DO [address] [facility] [address] [place], [place] [address] Social History Tobacco Use Types Packs/Day Years [...] on file documented as of this encounter Visit Diagnoses Not on filedocumented in this encounter
--- OUTSIDE RECORDS SUMMARY | 2024-11-24 14:59 | XMS_ITS | Encounter Summary ---
Author Organization [facility] Address [address] [place] [address] Care Team Providers Care Surface Plate Inspector Name Role Phone Unavailable Primary Care Provider Unavailabl e Encounter Details Date Type Department Care Team (Late st Contact Info) Description 08/24/2024 Abstract [facility] OB [address] [place] [id number] Cedric Warner, DO [address] [facility] [address] [place], [place] [address] Social History Tobacco Use Types Packs/Day Years [...]
--- OUTSIDE RECORDS SUMMARY | 2024-11-24 14:59 | XMS_ITS | Encounter Summary ---
Author Organization [facility] Address [address] [place] [address] Care Team Providers Care Boat Outboard Engine Mechanic Name Role Phone Unavailable Primary Care Provider Unavailabl e Encounter Details Date Type Department Care Team (Late st Contact Info) Description 08/17/2024 Orders Only [facility] [address] [facility] [place] [address] Elena Constantino [place] [address] [place] [address] Social History Tobacco Use Types Packs/Day Years [...]
--- OUTSIDE RECORDS SUMMARY | 2024-11-24 14:59 | XMS_ITS | Clinical Summary ---
Author Organization [facility] Address [address] [place] [address] Care Team Providers Care Wooden Frame Builder Name Role Phone Unavailable Primary Care Provider Unavailabl e Allergies No known active allergies Medications busPIRone (Buspar) 15 MG tablet Take by mouth 2 (two) times a day. Active MV-Min-Fe Fum-FA-DHA ( 1 PO) Acti ve Cyanocobalamin 1000 MCG/ML kitIndications: H/O gastric sleeve Inject 1 mL as directed every 30 (thirty) days 1 kit 11 11/04/19 25 025 Active omeprazole OTC (PriLOSEC OTC) 20 MG EC tablet Take 20 mg by mouth in the morning. 11/07/19 25 Active magnesium oxide (Mag-Ox) 400 MG tabletIndicatio ns:Nonintractab le headache, unspecified chronicity pattern, unspecified headache type Take 1 tablet (400 mg) by mouth Daily 30 tablet 2 11/23/19 25 025 Active Cyanocobalamin (Vitamin B-12) 1000 MCG/15ML liquid Take 1 each by mouth every 30 (thirty) days 025 Discontinued(Re order) Cyanocobalamin (Vitamin B-12) 1000 MCG/15ML liquidIndicatio ns:H/O gastric sleeve Take 1 each by mouth every 30 (thirty) days 450 mL 3 11/04/19 25 025 Discontinued Encounters Date Type Department Care Team Description 11/22/2024 9:50 AM EDT Routine [facility] [address] [facility] [place] [place] [address] Zoraida Travis PA Nonintractable headache, unspecified chronicity pattern, unspecified headache type (Primary Dx); Third trimester ; 36 weeks gestation of 11/22/2024 Bamboo flowsheet [facility] [address] [facility] [place] [address] Zoraida Travis PA 11/21/2024 Clinisync Result Encounter [facility] External Department Unsolicited AlanaTimy, DO 11/17/2024 Clinisync Result Encounter [facility] External Department Unsolicited Alana, Arminda, DO 11/14/2024 1:50 PM EDT Routine [facility] [address] [place] [address] Arminda Warner, DO 35 weeks gestation of ; Third trimester 11/14/2024 Bamboo flowsheet [facility] [address] [facility] [place] [address] Arminda Warner, DO 11/10/2024 Clinisync Result Encounter [facility] External Department Unsolicited AlanaTimy, DO 11/09/2024 9:50 AM EDT Routine [facility] [address] [place] [address] Zoraida Travis PA 35 weeks gestation of ; Third trimester 11/09/2024 Bamboo flowsheet [facility] [address] [place] [address] Zoraida Travis PA 11/08/2024 Abstract [facility] OB [address] [facility] [address] Arminda Warner, DO 11/03/2024 Clinisync Result Encounter [facility] External Department Unsolicited Arminda Warner, DO 11/03/2024 Telephone [facility] [address] [place] [address] Celsa Coats MA 11/02/2024 Refill [facility] OB [address] [place] [address] Zoraida Travis PA H/O gastric sleeve 10/30/2024 Clinisync Result Encounter [facility]S External Department Unsolicited Arminda Warner, DO 10/25/2024 2:20 PM EDT Routine [facility] [address] [facility] [place] [address] Arminda Warner, DO Third trimester ; 32 weeks gestation of ; H/O gastric sleeve 10/25/2024 Bamboo flowsheet [facility] [address] [place] [address] [place] [address] Arminda Warner, DO 10/11/2024 9:40 AM EDT Routine [facility] [address] [place] [address] [place] [address] Frances Pena, MOLINA Third trimester ; 30 weeks gestation of 10/11/2024 Bamboo flowsheet [facility] [address] [place] [address] [place] [address] Frances Pena, MOLINA 09/26/2024 9:50 AM EDT Routine [facility] [address] [place] [address] [place] [address] Arminda Warner, DO Third trimester ; 28 weeks gestation of 09/26/2024 Bamboo flowsheet [facility] [address] [place] [address] [place] [address] Arminda Warner, DO 09/22/2024 Abstract [facility] OB [address] [facility] [address] Arminda Warner, DO 09/09/2024 Clinisync Result Encounter [facility]OMS External Department Unsolicited Zoraida Travis PA 08/29/2024 8:30 AM EDT Routine [facility] OB [address] [facility] [place] [address] oZraida Travis PA 25 weeks gestation of ; Second trimester ; Diabetes mellitus screening 08/29/2024 Bamboo flowsheet [facility] OB [address] [facility] [place] [address] Zoraida Travis PA 08/24/2024 Abstract [facility] OB [address] [facility] [place] [address] Arminda Warner DO from Last 3 Months [...] 8 oz) 11/22/2024 10:09 AM EDT Height 165.1 cm (5' 5 ) 11/24/2022 9:10 AM EDT Body Mass Index 44.85 11/24/2022 9:10 AM EDT Plan of Treatment Health Maintenance Due Date Last Done Comments Influenza Vaccine (Season Ended) 2025 Procedures Procedure Name Priority Date/Time Associated Diagnosis Comments POCT URINALYSIS DIPSTICK Routine 11/22/2024 10:19 AM EDT Third trimester US AMNIOTIC FLUID VOLUME 11/21/2024 8:59 AM EDT US OB BPP W NON-STRESS 11/17/2024 3:46 [...] dipstick manually resulted (11/22/2024 10:19 AM EDT) Only the most recent of7 resultswithin the time period is included. Color, [...] Positive Urine 11/22/2024 10:1 9 AM EDT us Zoraida SEGOVIA POINT OF CARE TEST ENTER/EDIT OR DERABLES Final Result * US AMNIOTIC FLUID VOLUME (11/21/2024 8:59 AM EDT) Anatomical Region Laterality Modality Radiographic Felisha ging 11/21/2024 8:59 AM EDT Narrative 11/21/2024 9:06 [place] [address] Ultrasound Report Signed Patient: MADDIE ORNELAS MR#: [id number] : 1995 Acct:[id number] Age/Sex: 29 / F ADM Date: 11/21/24 Loc: [place] [address]: Arminda Warner D.O. Ordering Physician: Arminda Warner D.O. Date of Service: 11/21/24 Procedure(s): US OB amniotic fluid vol Accession Number(s): [id number] cc: Arminda Warner D.O.; Ally Craig NP [place] [id number] Patient Name: MADDIE ORNELAS MRN: [id number] date: 1995 Sex: F Assigned Patient Location: [facility] Current Patient Location: Accession/Order Number: [id number] Exam Date: 11/21/2024 08:56 Report Date: 11/21/2024 [...] Jensen M.D. 11/21/2024 8:59 AM Dictation Location: [place] [address] Electronically authenticated by: [id number] Y Date: 11/21/2024 08:59 Dictated By: Smita Jensen M.D. Signed By: 11/21/2406 DD/ 0859 TD/TT: Baker Biscuit: Procedure Note Radiology, Radiologist, MD - 11/21/2024 [place] [address] Ultrasound Report Signed Patient: MADDIE ORNELAS CMR#: [id number] : 1995Acct:[id number] Age/Sex: 29 / FADM Date: 11/21/24 Loc: [facility] [address]: Arminda Warner D.O. Ordering Physician: Arminda Warner D.O. Date of Service: 11/21/24 Procedure(s): US OB amniotic fluid vol Accession Number(s): [id number] cc: Arminda Warner D.O.; Ally Craig NP The [place] [address] Patient Name: MADDIE ORNELAS MRN: [id number] date: 1995 Sex: F Assigned Patient Location: [facility] Current Patient Location: Accession/Order Number: [id number] Exam Date: 11/21/2024 08:56 Report Date: 11/21/2024 [...] Jensen M.D. 11/21/2024 8:59 AM Dictation Location: [place] [address] Electronically authenticated by: [id number] Y Date: 508:59 Dictated By: Smita Jensen M.D. Signed By:11/21/24 0906 DD/ 0859 TD/TT: Baker Biscuit: us Arminda Warner DO IMG XR PROCEDURES Final Result * US OB BPP W NON-STRESS (11/17/2024 3:46 PM EDT) Only the most recent of4 resultswithin the time period is included. Anatomical Region Laterality Modality Other 11/17/2024 3:46 PM EDT Narrative 11/17/2024 3:48 [place] [address] Ultrasound Report Signed Patient: MADDIE ORNELAS MR#: [id number] : 1995 Acct:[id number] Age/Sex: 29 / F ADM Date: 11/17/24 Loc: [facility] 250-[address]: Arminda Warner D.O. Ordering Physician: Arminda Warner D.O. Date of Service: 11/17/24 Procedure(s): US OB BPP w non-stress Accession Number(s): [id number] cc: Arminda Warner D.O.; Ally Craig NP [address] [address] Patient Name: MADDIE ORNELAS MRN: [id number] date: 1995 Sex: F Assigned Patient Location: [facility] [place] [place] Current Patient Location: [facility] [place] [place] Accession/Order Number: [id number] Exam Date: 11/17/2024 15:43 Report Date: 11/17/2024 [...] Diaz M.D. 11/17/2024 3:46 PM Dictation Location: [place] [address] Electronically authenticated by: [id number] Y Date: 11/17/2024 15:46 Dictated By: Anthony Diaz D.O. Signed By: 11/17/24 1548 DD/ 1546 TD/TT: Baker Biscuit: Procedure Note Radiology, Radiologist, MD - 11/17/2024 [place] [address] Ultrasound Report Signed Patient: MADDIE ORNELAS CMR#: [id number] : 1995Acct:[id number] Age/Sex: 29 / FADM Date: 11/17/24 Loc: [facility] 250-[address]: Arminda Warner D.O. Ordering Physician: Arminda Warner D.O. Date of Service: 11/17/24 Procedure(s): US OB BPP w non-stress Accession Number(s): [id number] cc: Arminda Warner D.O.; Ally Craig NP The [address] [address] Patient Name: MADDIE ORNELAS MRN: [id number] date: 1995 Sex: F Assigned Patient Location: [facility] [place] [place] Current Patient Location: [facility] [place] [place] Accession/Order Number: [id number] Exam Date: 11/17/2024 15:43 Report Date: 11/17/2024 [...] Diaz M.D. 11/17/2024 3:46 PM Dictation Location: [place] [address] Electronically authenticated by: [id number] Y Date: 5:46 Dictated By: Anthony Diaz D.O. Signed By:11/17/24 1548 DD/ 1546 TD/TT: Baker Biscuit: us Arminda Warner DO [facility] Final Result * GLUCOSE 1 HOUR (09/09/2024 10:12 AM EDT) GLUCOSE 1 HOUR 98 <130 mg/dL [facility] 09/09/2024 10:1 2 AM EDT 09/09/2024 10:13 AM EDT Narrative [facility] - 09/09/2024 10:27 AM EDT Zoraida SEGOVIA LAB BLOOD ORDERABLES Final Resul t [facility] * (ABNORMAL) ALL CBC WITH AUTO DIFF [...] EDT us Zoraida MATT Final Result [facility] TB * US OB 14+ weeks anatomy scan (08/24/2024 12:47 PM EST) Anatomical Region Laterality Modality Body Ultrasound 08/24/2024 12:4 7 PM EST Narrative 08/24/2024 12:47 PM EST THIS EXAM WAS PERFORMED AT [facility] NAME: CECI PERKINS : 1995 SEX: F Accession Number: [id number] ORDERING PHYSICIAN: ARMINDA WARNER REFERRING PHYSICIAN: ARMINDA WARNER Coding ----- --------- Procedures 89712: Ultrasound, uterus, real time with image documentation, and maternal evaluation plus detailed anatomic examination, transabdominal approach;single or first gestation 56596: Transvaginal Ultrasound (OB) Indication ----- --------- Obesity in , Placenta previa, Screening for Anatomic Survey, Screening for cervical length History ----- --------- OB History 7. Para 1 [id number] Maternal Assessment ----- --------- Physical Exam Height [...] (lb,oz) 1 lb 7 oz EFW by Faylock (KFY-EY-CD-FL) Head / Face / Neck Biometry: Cephalic index 0.69 <1% Nicolaides Ophthalmology Technician 4.2 mm CM 6.6 mm 70% Nicolaides [...] Maxilla. Mandible. Heart / Thorax LVOT view. 8-zmcsrx-qaarxoj view. Aortic arch view. Bicaval view. Ductal [...] 4.8 cm. Recommendations ----- --------- Please see [facility] documentation from today. The patient is scheduled in four to six week(s) to complete anatomic survey. Subsequent follow up or other follow up as clinically determined by primary OB provider unless otherwise specified by [facility]. Results forwarded to ordering provider so they can follow up with the patient as necessary. Procedure Note Radiology, Radiologist, - 08/24/2024 THIS EXAM WAS PERFORMED AT [facility] NAME: CECI PERKINS : 1995 SEX: F Accession Number: [id number] ORDERING PHYSICIAN: ARMINDA WARNER REFERRING PHYSICIAN: ARMINDA WARNER Coding ----- --------- Procedures 02036: Ultrasound, uterus, real time with imagedocumentation, and maternal evaluation plus detailed anatomic examination, transabdominalapproach;single or first gestation 71878: Transvaginal Ultrasound (OB) Indication ----- --------- Obesity in , Placenta previa, Screening for Anatomic Survey,Screening for cervical length History ----- --------- OB History 7. Para 1 [id number] Maternal Assessment ----- --------- Physical Exam Height [...] 1 lb 7 oz EFW by Hadlock (BSW-DF-FD-FL) Head / Face / Neck Biometry: Cephalic index 0.69 <1% Nicolaides Ophthalmology Technician 4.2 mm CM 6.6 mm 70% Nicolaides [...] Maxilla. Mandible. Heart / Thorax LVOT view. 9-mzkjoi-hsksdhu view. Aortic arch view. Bicavalview. Ductal arch [...] 4.8 cm. Recommendations ----- --------- Please see [facility] documentation from today. The patient is [...] Resul t from Last 3 Months Insurance [employer] MEDICAID
--- OUTSIDE RECORDS SUMMARY | 2024-11-24 14:59 | XMS_ITS | Encounter Summary ---
Author Organization [facility] Address [address] [place] [address] Care Team Providers Care Transport Nurse Name Role Phone Unavailable Primary Care Provider Unavailabl e Encounter Details Date Type Department Care Team (Late st Contact Info) Description 11/10/2024 Clinisync Result Encounter [facility] External Department Unsolicited Arminda Warner, DO 102 [facility] [place] [address] Social History Tobacco Use Types [...] PM EDT Narrative 11/10/2024 3:50 PM EDT [facility] [address] [place] [address] Ultrasound Report Signed Patient: MADDIE RAMAN MR#: [id number] : 1995 Acct:[id number] Age/Sex: 29 / F ADM Date: 11/10/24 Loc: [facility] 252-[address]: Arminda Warner D.O. Ordering Physician: Arminda Warner D.O. Date of Service: 11/10/24 Procedure(s): US OB BPP w non-stress Accession Number(s): [id number] cc: Arminda Warner D.O.; Ally Craig NP [place] [address] Patient Name: MADDIE RAMAN MRN: [id number] date: 1995 Sex: F Assigned Patient Location: [facility] Current Patient Location: [facility] Accession/Order Number: [id number] Exam Date: 11/10/2024 15:47 Report Date: 11/10/2024 [...] 11/10/2024 3:48 PM Dictation Location: [place] [address] Electronically authenticated by: [id number] Y Date: 11/10/2024 15:48 Dictated By: Anthony Diaz D.O. Signed By: 11/10/24 1550 DD/ 1548 TD/TT: Finisher Wallboard And Plasterboard: Procedure Note Radiology, Radiologist, MD - 11/10/2024 [place] [address] Ultrasound Report Signed Patient: MADDIE RAMAN CMR#: [id number] : 1995Acct:[id number] Age/Sex: 29 / FADM Date: 11/10/24 Loc: [facility] 252-[address]: Arminda Warner D.O. Ordering Physician: Arminda Warner D.O. Date of Service: 11/10/24 Procedure(s): US OB BPP w non-stress Accession Number(s): [id number] cc: Arminda Warner D.O.; Ally Craig NP [place] [address] Patient Name: MADDIE RAMAN MRN: [facility]:[id number] date: 1995 Sex: F Assigned Patient Location: [facility] Current Patient Location: [facility] Accession/Order Number: [id number] Exam Date: 11/10/2024 15:47 Report Date: 11/10/2024 [...] Diaz M.D. 11/10/2024 3:48 PM [facility]ictation [facility] Electron[facility] authenticated by: [id number] Y Date: 5:48 Dictated By: Anthony Diaz D.O. Signed By:11/10/24 1550 DD/ 1548 TD/TT: Finisher Wallboard And Plasterboard: us Arminda Warner DO [facility] Final Result documented in this encounter Visit Diagnoses Not on filedocumented in this encounter
--- OUTSIDE RECORDS SUMMARY | 2024-11-24 14:59 | XMS_ITS | Encounter Summary ---
Author Organization [facility] tem Address [id number] [address] [place] [address] Care Team Providers Care Student Worker Name Role Phone KiaraAlly stevenson PLASTICS FABRICATOR OR WELDER-FOUNTAIN SUPERVISOR Primary Care Provi collin Encounter Details Date Type Department Care Team (Late st Contact Info) Description 08/14/2024 Orders Only Maternal- Medicine at [facility] [address] [place] [address] Cedric Warner R, DO [address] [facility] [place] [address] Social History Tobacco Use Types Packs/Day Years [...] Author D/C Home General Yes Yaneth Bright, PLASTICS FABRICATOR OR WELDER-FOUNTAIN SUPERVISOR Note: Evaluation of progress towards goal: [...] documented as of this encounter Care Teams Student Worker Relationship Specialty Start Date End Date Ally Craig, PLASTICS FABRICATOR OR WELDER-FOUNTAIN SUPERVISOR [address], [place] [address] PCP - General Family Medicine 04/12/18 documented as of this encounter
--- OUTSIDE RECORDS SUMMARY | 2024-11-24 14:59 | XMS_ITS | Encounter Summary ---
Author Organization [facility] Address [address] [place] [address] Care Team Providers Care English Instructor Name Role Phone Unavailable Primary Care Provider Unavailabl e Encounter Details Date Type Department Care Team (Late st Contact Info) Description 09/22/2024 Abstract [facility] OB [address] [place] [address] Cedric Warner, DO [address] [facility] [address] [place], [place] [address] Social History Tobacco Use Types Packs/Day Years [...]
--- OUTSIDE RECORDS SUMMARY | 2024-11-24 14:59 | XMS_ITS | Encounter Summary ---
Author Organization [facility] tem Address [id number] [address] [place] [address] Care Team Providers Care X Ray Service Engineer Name Role Phone Ally Craig BILINGUAL TEACHER ASSISTANT-LEGAL BILLER Primary Care Provi collin Encounter Details Date Type Department Care Team (Late st Contact Info) Description 08/24/2024 Orders Only Maternal- Medicine at [facility] [address] [place] [address] Zoraida Butcher LPN Social History Tobacco Use [...] Author D/C Home General Yes Yaneth Bright APRN-LEGAL BILLER Note: Evaluation of progress towards goal: Pt plans to d/c home with self care and family support. documented as of this encounter Visit Diagnoses Not on filedocumented in this encounter Additional Health Concerns Assessment Noted Time PHQ-9 Depression Total Score: 19 023 10:14 AM EDT documented as of this encounter Care Teams X Ray Service Engineer Relationship Specialty Start Date End Date Ally Craig, RAFA-LEGAL BILLER [address], [place] [address] PCP - General Family Medicine 04/12/18 documented as of this encounter
--- OUTSIDE RECORDS SUMMARY | 2024-11-24 14:59 | XMS_ITS | Clinical Summary ---
Author Organization Guide Financial tem Address [facility]-[id number] [address] [place] [address] Care Team Providers Care Rda Name Role Phone Ally Craig REFUSE DRIVER-COMPTROLLER Primary Care Provi collin Allergies Active Allergy Reactions Criticality Noted Date Comments [place] Extract Anaphylaxis High 02/01/2019 Medications * This [...] (10/05/2017): Added automatically from request for surgery [id number] SVT (supraventricular tachycardia) 09/26/2017 10/01/2020 Encounters Date Type Department Care Team Description 11/15/2024 Refill [facility]- [facility] at [facility] [address] [place] [address] Erlin Chung MD History of sleeve gastrectomy 11/06/2024 12:00 PM EDT Office Visit Maternal- Medicine at [facility] [address] [place] [address] Erlin Chung MD History of sleeve gastrectomy (Primary Dx) 11/06/2024 10:39 AM EDT - 11/06/2024 11:59 PM EDT Hospital En[facility] US Imaging [address] [place] [address] History of sleeve gastrectomy; Hx of supraventricular tachycardia; Encounter for follow-up ultrasound of anatomy; Encounter for anatomic survey Discharge Disposition: Home 11/06/2024 Travel 10/20/2024 8:45 AM EDT Telemedicine Maternal- Medicine at [facility] [address] [place] [place] [address] Erlin Chung MD History of sleeve gastrectomy (Primary Dx); Hx of supraventricular tachycardia 10/20/2024 Travel 10/05/2024 9:00 AM EDT Ancillary Procedure [facility] [address] [place] [phone] Hx of supraventricular tachycardia 10/05/2024 8:30 AM EDT Office Visit [facility] [address] [place] [phone] Ole Rojas MD Hx of supraventricular tachycardia (Primary Dx) 10/05/2024 Travel 09/29/2024 Orders Only Maternal- Medicine at [facility] [address] [place] [address] Triny Morales RN History of sleeve gastrectomy (Primary Dx); Hx of supraventricular tachycardia; Encounter for follow-up ultrasound of anatomy; Encounter for anatomic survey 09/28/2024 2:22 PM EDT - 09/28/2024 11:59 PM EDT Hospital Encounter [facility] US Imaging [address] [place] [address] History of sleeve gastrectomy; Hx of supraventricular tachycardia; Encounter for follow-up ultrasound of anatomy Discharge Disposition: Home 09/28/2024 Travel 08/24/2024 9:00 AM EST Office Visit Maternal- Medicine at [facility] [address] [place] [address] Erlin Chung MD History of sleeve gastrectomy (Primary Dx); Hx of supraventricular tachycardia 08/24/2024 7:29 AM EST - 08/24/2024 11:59 PM EST Hospital Encounter [facility] US Imaging [address] [place] [address] History of sleeve gastrectomy; Hx of supraventricular tachycardia; Encounter for anatomic survey Discharge Disposition: Home 08/24/2024 Orders Only Maternal- Medicine at [facility] [address] [place] [address] Zoraida Butcher LPN 08/24/2024 Orders Only Maternal- Medicine at [facility] [address] [place] [address] Cindy Walton RN History of sleeve gastrectomy [...] Author D/C Home General Yes Yaneth Bright, REFUSE DRIVER-COMPTROLLER Note: Evaluation of progress towards goal: Pt plans to d/c home with self care and family support. Medical Devices Implanted Type Area Construction Checker Device Identifier Shelf Expiration Date Model / [...] period is included. Anatomical Region Laterality Modality OB-TERMINAL SUPERVISOR Ultrasound 11/06/2024 11:3 9 AM EDT Narrative 11/06/2024 3:01 PM EDT NAME: CECI PERKINS : 1995 SEX: F Accession Number: [id number] ORDERING PHYSICIAN: LUIS ANGEL NGUYEN REFERRING PHYSICIAN: ARMINDA WHITE Coding ----- --------- Procedures 64481: Follow-up Ultrasound, per fetus Indication ----- --------- Obesity in , Previous , Previous bariatric surgery, Screening for follow-up survey History ----- --------- OB History 7. Para 1 [id number] Maternal Assessment ----- --------- Physical Exam Height [...] EFW (oz) 15 oz EFW by: Hadlock (ICY-XS-LX-FL) Extended Tibia 56.0 mm 32w 6d 26% Jody Academic Affairs Vice President 3.4 mm CM 9.1 mm 87% Nicolaides [...] Thorax RVOT view. LVOT view. 3-vessel view. 9-rnkhwh-ihzzicd view. Situs. Aortic arch view. Bicaval view. [...] 5.1 cm. Recommendations ----- --------- Please see [facility] documentation from today. anatomic survey is [...] PERKINS : 1995 SEX: F Accession Number: [id number] ORDERING PHYSICIAN: LUIS ANGEL NGUYEN REFERRING PHYSICIAN: ARMINDA WHITE Coding ----- --------- Procedures 89502: Follow-up Ultrasound, per fetus Indication ----- --------- Obesity in , Previous , Previous bariatric surgery,Screening for follow-up survey History ----- --------- OB History 7. Para 1 [id number] Maternal Assessment ----- --------- Physical Exam Height [...] EFW (oz) 15 oz EFW by: Hadlock (ERE-MX-FA-FL) Extended Tibia 56.0 mm 32w 6d 26% Jody Academic Affairs Vice President 3.4 mm CM 9.1 mm 87% Nicolaides [...] Thorax RVOT view. LVOT view. 3-vessel view. 7-lvegcw-dpfoegd view.Situs. Aortic arch view. Bicaval view. Interventricular [...] as necessary. us Luis Angel Nguyen MD [facility] ORDERABLES Final Re sult * Wireless Telemetry [...] TRANSCRIBED RESULTS from Last [address] [place] [address] [place] [address] MEDICAID [facility]ICAL [facility] MEDICAID Advance Directives * Full Code (Latest Code Status on File) Date Activated Date Inactivated Comments 11/10/2021 9:36 AM 11/11/2021 5:57 PM * Full Code Date Activated Date Inactivated Comments 04/24/2019 2:41 PM 04/27/2019 6:16 PM * Full Code Date Activated Date Inactivated Comments 09/26/2017 4:13 AM 10/03/2017 1:52 PM Care Teams Rda Relationship Specialty Start Date End Date Ally Craig, REFUSE DRIVER-COMPTROLLER [address], [place] [address] PCP - General Family Medicine 04/12/18
--- OUTSIDE RECORDS SUMMARY | 2024-11-24 14:59 | XMS_ITS | Encounter Summary ---
Author Organization [facility] Address [address] [place] [address] Care Team Providers Care International Marketing Specialist Name Role Phone Unavailable Primary Care Provider Unavailabl e Encounter Details Date Type Department Care Team (Late st Contact Info) Description 11/14/2024 Bamboo flowsheet [facility] OB [address] [place] [phone] Cedric Warner, DO [address] [place], [place] [address] Social History Tobacco Use Types Packs/Day Years [...]
--- OUTSIDE RECORDS SUMMARY | 2024-11-24 14:59 | XMS_ITS | Encounter Summary ---
Author Organization [employer] tem Address [facility]-[id number] [address] [place] [address] Care Team Providers Care Drama Teacher Name Role Phone KiaraAlly stevenson CARDIOLOGY NURSE-SCHOOL JANITOR Primary Care Provi collin Reason for Visit * Reason Onset Date Comments Med Refill 11/20/2021 Encounter Details Date Type Department Care Team (Late st Contact Info) Description 11/20/2021 Refill [facility] [address] [facility] [address] [place] [address] Evelyn Flower CMA Social History [...] Author D/C Home General Yes Yaneth Bright APRN-SCHOOL JANITOR Note: Evaluation of progress towards goal: Pt plans to d/c home with self care and family support. documented as of this encounter Visit Diagnoses Not on filedocumented in this encounter Additional Health Concerns Assessment Noted Time PHQ-9 Depression Total Score: 0 04/01/20 21 11:14 AM EDT documented as of this encounter Care Teams Drama Teacher Relationship Specialty Start Date End Date Ally Craig, CARDIOLOGY NURSE-SCHOOL JANITOR [address], [place] [address] PCP - General Family Medicine 04/12/18 documented as of this encounter
--- OUTSIDE RECORDS SUMMARY | 2024-11-24 14:59 | XMS_ITS | Encounter Summary ---
Author Organization Linkage tem Address [id number] [address] [place] [address] Care Team Providers Care Logging Assistant Name Role Phone Ally Craig LAWN SPRINKLER INSTALLER-PSYCHOLOGICAL EXAMINER Primary Care Provi collin Reason for Referral * Diagnostic Imaging (Routine) - Pending Review Specialty Diagnoses / Procedures Referred By Violeta dalal Referred To Contact Maternal and Medicine Diagnoses History of sleeve gastrectomy Hx of supraventricular tachycardia Encounter for anatomic survey Procedures US [facility] with or without consult Cedric Warner DO [address] [place] [address] [place] [address] Phone: tel: fax: Maternal- Medicine at [facility] [address] [place] [address] Phone: tel: fax: Referral ID Status Reason Start Date Expiration Date V isits Requested Visits Authorized [id number] Pending Review 08/11/2024 08/11/2025 1 1 Encounter Details Date Type Department Care Team (Late st Contact Info) Description 08/11/2024 Orders Only Maternal- Medicine at [facility] [address] [place] [address] CMA History of [...] Author D/C Home General Yes Yaneth Bright, LAWN SPRINKLER INSTALLER-PSYCHOLOGICAL EXAMINER Note: Evaluation of progress towards goal: Pt plans to d/c home with self care and family support. documented as of this encounter Results * [facility] COMPREHENSIVE ANATOMIC SURVEY (08/24/2024 9:48 AM EST) Anatomical Region Laterality Modality OB-PROFILE SAW SETUP OPERATOR Ultrasound 08/24/2024 7:49 AM EST Narrative 08/24/2024 12:47 PM EST NAME: CECI PERKINS : 1995 SEX: F Accession Number: [id number] ORDERING PHYSICIAN: CEDRIC WARNER REFERRING PHYSICIAN: CEDRIC WARNER Coding ----- --------- Procedures 69758: Ultrasound, uterus, real time with image documentation, and maternal evaluation plus detailed anatomic examination, transabdominal approach;single or first gestation 01778: Transvaginal Ultrasound (OB) Indication ----- --------- Obesity in , Placenta previa, Screening for Anatomic Survey, Screening for cervical length History ----- --------- OB History 7. Para 1 [id number] Maternal Assessment ----- --------- Physical Exam Height [...] 1 lb 7 oz EFW by Hadlock (GWY-BL-CI-FL) Head / Face / Neck Biometry: Cephalic index 0.69 <1% Nicolaides Extractor And Wringer Operator 4.2 mm CM 6.6 mm 70% Nicolaides [...] Maxilla. Mandible. Heart / Thorax LVOT view. 8-smzhke-cbxbqhm view. Aortic arch view. Bicaval view. Ductal [...] 4.8 cm. Recommendations ----- --------- Please see [facility] documentation from today. The patient is scheduled in four to six week(s) to complete anatomic survey. Subsequent follow up or other follow up as clinically determined by primary OB provider unless otherwise specified by [facility]. Results forwarded to ordering provider so they can follow up with the patient as necessary. Procedure Note Erlin Chung MD - 08/24/2024 NAME: CECI PERKINS : 1995 SEX: F Accession Number: [id number] ORDERING PHYSICIAN: CEDRIC WARNER REFERRING PHYSICIAN: CEDRIC WARNER Coding ----- --------- Procedures 17844: Ultrasound, uterus, real time with imagedocumentation, and maternal evaluation plus detailed anatomic examination, transabdominalapproach;single or first gestation 04201: Transvaginal Ultrasound (OB) Indication ----- --------- Obesity in , Placenta previa, Screening for Anatomic Survey,Screening for cervical length History ----- --------- OB History 7. Para 1 [id number] Maternal Assessment ----- --------- Physical Exam Height [...] 1 lb 7 oz EFW by Hadlock (FVM-FS-WR-FL) Head / Face / Neck Biometry: Cephalic index 0.69 <1% Nicolaides Extractor And Wringer Operator 4.2 mm CM 6.6 mm 70% Nicolaides [...] Maxilla. Mandible. Heart / Thorax LVOT view. 0-jpllmi-ditxmzo view. Aortic arch view. Bicavalview. Ductal arch [...] as necessary. us Cedric R Alana DO [facility] US ORDERABLES Final Result documented in this encounter Visit Diagnoses Diagnosis History of sleeve gastrectomy- Primary Hx of supraventricular tachycardia Encounter for anatomic survey History of sleeve gastrectomy Hx of supraventricular tachycardia Encounter for anatomic survey documented in this encounter Additional Health Concerns Assessment Noted Time PHQ-9 Depression Total Score: 19 023 10:14 AM EDT documented as of this encounter Care Teams Logging Assistant Relationship Specialty Start Date End Date Ally Craig APRN-PSYCHOLOGICAL EXAMINER [address], [place] [address] PCP - General Family Medicine 04/12/18 documented as of this encounter
--- OUTSIDE RECORDS SUMMARY | 2024-11-24 14:59 | XMS_ITS | Encounter Summary ---
Author Organization [facility] [employer] tem Address [facility][id number] [address] [place] [address] Care Team Providers Care Horse Racer Name Role Phone Ally Craig COMPRESS TRUCKER-INDUSTRIAL ENERGY ENGINEER Primary Care Provi collin Encounter Details Date Type Department Care Team (Late st Contact Info) Description 03/29/2024 Telephone [facility]-B[facility]ric [address] [address] Lauren Arndt MD [address] [place] [address] Social History Tobacco Use Types [...] Author D/C Home General Yes Yaneth Bright APRN-INDUSTRIAL ENERGY ENGINEER Note: Evaluation of progress towards goal: Pt plans to d/c home with self care and family support. documented as of this encounter Visit Diagnoses Not on filedocumented in this encounter Additional Health Concerns Assessment Noted Time PHQ-9 Depression Total Score: 19 023 10:14 AM EDT documented as of this encounter Care Teams Horse Racer Relationship Specialty Start Date End Date Ally Craig, COMPRESS TRUCKER-INDUSTRIAL ENERGY ENGINEER [address], [place] [address] PCP - General Family Medicine 04/12/18 documented as of this encounter
--- OUTSIDE RECORDS SUMMARY | 2024-11-24 14:59 | XMS_ITS | Encounter Summary ---
Author Organization [facility] Address [address] [place] [address] Care Team Providers Care Documentation Lead Name Role Phone Unavailable Primary Care Provider Unavailabl e Encounter Details Date Type Department Care Team (Late st Contact Info) Description 11/22/2024 Bamboo flowsheet [facility] [address] [place] [address] Zoraida Travis PA [address] [facility] [address] [place], [facility] Social History Tobacco Use Types Packs/Day [...]
--- OUTSIDE RECORDS SUMMARY | 2024-11-24 15:00 | XMS_ITS | Encounter Summary ---
Author Organization [employer] tem Address [facility]-[id number] [address] [place] [address] Care Team Providers Care Edi Consultant Name Role Phone Ally Craig PRECAST WORKER-PRESSURIZATION MECHANIC Primary Care Provi collin Encounter Details Date Type Department Care Team (Late st Contact Info) Description 07/23/2022 [facility] [address] [place] [address] [place] [address] Gi Motley CMA Social History [...] Author D/C Home General Yes Yaneth Bright, PRECAST WORKER-PRESSURIZATION MECHANIC Note: Evaluation of progress towards goal: Pt plans to d/c home with self care and family support. documented as of this encounter Visit Diagnoses Not on filedocumented in this encounter Additional Health Concerns Assessment Noted Time PHQ-9 Depression Total Score: 0 04/01/20 21 11:14 AM EDT documented as of this encounter Care Teams Edi Consultant Relationship Specialty Start Date End Date Ally Craig, PRECAST WORKER-PRESSURIZATION MECHANIC [address], [place] [address] PCP - General Family Medicine 04/12/18 documented as of this encounter
--- OUTSIDE RECORDS SUMMARY | 2024-11-24 15:00 | XMS_ITS | Encounter Summary ---
Author Organization [facility] Address [address] [place] [address] Care Team Providers Care Pipeline Operator Name Role Phone Unavailable Primary Care Provider Unavailabl e Encounter Details Date Type Department Care Team (Late st Contact Info) Description 06/06/2024 Abstract [facility] OB [address] [place] [address] Cedric Warner, DO [address] [facility] [address] [place], [place] [address] Social History Tobacco Use Types Packs/Day Years [...]
--- OUTSIDE RECORDS SUMMARY | 2024-11-24 15:00 | XMS_ITS | Encounter Summary ---
Author Organization [facility] Address [facility][id number] [address] [place] [address] Care Team Providers Care Logistics Planning Manager Name Role Phone KiaraAlly stevenson CART DRIVER-CELEBRITY CHEF ENTREPRENEUR MEDIA PERSONALITY Primary Care Provi collin Encounter Details Date Type Department Care Team (Late st Contact Info) Description 10/09/2020 [facility]phone [facility] [address] [place] [address] [place] [address] Yong Veliz CMA Social History [...] Author D/C Home General Yes Yaneth Bright, CART DRIVER-CELEBRITY CHEF ENTREPRENEUR MEDIA PERSONALITY Note: Evaluation of progress towards goal: Pt [...] documented as of this encounter Care Teams Logistics Planning Manager Relationship Specialty Start Date End Date Ally Craig, CART DRIVER-CELEBRITY CHEF ENTREPRENEUR MEDIA PERSONALITY [address], [place] [address] PCP - General Family Medicine 04/12/18 documented as of this encounter
--- OUTSIDE RECORDS SUMMARY | 2024-11-24 15:00 | XMS_ITS | Encounter Summary ---
Author Organization [facility] Address [facility] [id number] [address] [place] [address] Care Team Providers Care Apartment House Manager Name Role Phone Kiara, Ally Donn WOOD BORER-SHEET IRONWORKER Primary Care Provi collin Encounter Details Date Type Department Care Team (Late st Contact Info) Description 12/17/2020 Orders Only [facility] General Surgery-Bariatric [address] [facility] [place] [address] External, Scanning Provider Social History Tobacco Use [...] Author [place]/C Home General Yes Yaneth Bright, WOOD BORER-SHEET IRONWORKER Note: Evaluation of progress towards goal: Pt plans to d/c home with self care and family support. documented as of this encounter Procedures Procedure Name Priority Date/Time Associated Diagnosis Comments PAP SMEAR Routine 12/17/2020 documented in this encounter Results * PAP SMEAR (12/17/2020) us Scanning Provider External [place] PROFESSION[facility] LINDA Final Result MANUALLY TRANSCRIBED RESULTS documented in this encounter Visit Diagnoses Not on filedocumented in this encounter Additional Health Concerns Infection Onset Date Last Indicated Resolved Time COVID-19 Rule-Out 05/27/2021 05/27/2021 05/28/2021 7:43 PM EST Assessment Noted Time PHQ-9 Depression Total Score: 0 01/22/20 20 2:00 PM EDT documented as of this encounter Care Teams Apartment House Manager Relationship Specialty Start Date End Date Ally Craig, WOOD BORER-SHEET IRONWORKER [address], [place] [address] PCP - General Family Medicine 04/12/18 documented as of this encounter
--- OUTSIDE RECORDS SUMMARY | 2024-11-24 15:00 | XMS_ITS | Encounter Summary ---
Author Organization [facility] Address [address] [place] [address] Care Team Providers Care Administrative Judge Name Role Phone Unavailable Primary Care Provider Unavailabl e Encounter Details Date Type Department Care Team (Late st Contact Info) Description 05/13/2024 Clinisync Result Encounter [facility] External Department Unsolicited Arminda Warner, DO [address] [facility] [place] [address] Social History Tobacco Use Types [...] AM EST Narrative 05/13/2024 9:02 AM EST The [address] [address] Ultrasound Report Signed Patient: MADDIE RAMAN MR#: [id number] : 1995 Acct:[id number] Age/Sex: 28 / F ADM Date: 05/13/24 Loc: US Attending Dr: Arminda Warner D.O. Ordering Physician: Arminda Warner D.O. Date of Service: 05/13/24 Procedure(s): US OB transvaginal Accession Number(s): [id number] cc: Arminda Warner D.O.; Ally Craig NP The [place] [address] Patient Name: MADDIE RAMAN MRN: [id number] date: 1995 Sex: F Assigned Patient Location: US Current Patient Location: US Accession/Order Number: [id number] Exam Date: 05/13/2024 08:04 Report Date: 05/13/2024 [...] Signed By: 05/13/24 0902 DD/ 0859 TD/TT: Bias Cutter: Procedure Note Radiology, Radiologist, MD - 05/13/2024 [place] [address] Ultrasound Report Signed Patient: MADDIE RAMAN CMR#: [id number] : 1995Acct:[id number] Age/Sex: 28 / FADM Date: 05/13/24 Loc: US Attending Dr: Arminda Warner D.O. Ordering Physician: Arminda Warner D.O. Date of Service: 05/13/24 Procedure(s): US OB transvaginal Accession Number(s): [id number] cc: Arminda Warner D.O.; Ally Craig NP [place] [id number] Patient Name: MADDIE RAMAN MRN: [id number] date: 1995 Sex: F Assigned Patient Location: US Current Patient Location: US Accession/Order Number: [id number] Exam Date: 05/13/2024 08:04 Report Date: 05/13/2024 [...] live intrauterine 9 weeks 2 days by todaybarrera. Electronically authenticated by: ARCADIO NEVAREZ Date: 05/13/2024 08:59 Dictated By: Arcadio Nevarez M.D. Signed By:05/13/24901 DD/ TD/TT: Bias Cutter: us Arminda Warner DO [facility] Final Result documented in this encounter Visit Diagnoses Not on filedocumented in this encounter
--- OUTSIDE RECORDS SUMMARY | 2024-11-24 15:00 | XMS_ITS | Encounter Summary ---
Author Organization [facility] [employer] [facility] tem Address [id number] [address] [place] [address] Care Team Providers Care Director Perioperative Name Role Phone KiaraAlly stevenson VAULT MANAGER-SENIOR COMPENSATION ANALYST Primary Care Provi collin Encounter Details Date Type Department Care Team (Late st Contact Info) Description 11/06/2020 [facility]phone [facility] [address] [place] [address] [place] [address] Yong Veliz CMA Social History [...] as of this encounter Care Teams Director Perioperative Relationship Specialty Start Date End Date Ally Craig APRN-CNP [address], [place] [address] PCP - General Family Medicine 04/12/18 documented as of this encounter
--- OUTSIDE RECORDS SUMMARY | 2024-11-24 15:00 | XMS_ITS | Encounter Summary ---
Author Organization [facility] Address [address] [place] [address] Care Team Providers Care Shell Trim Tool Setter Name Role Phone Unavailable Primary Care Provider Unavailabl e Encounter Details Date Type Department Care Team (Late st Contact Info) Description 06/27/2024 Abstract [facility] OB [address] [place] [address] Felicita Wyatt LPN Social History Tobacco Use [...]
--- OUTSIDE RECORDS SUMMARY | 2024-11-24 15:00 | XMS_ITS | Encounter Summary ---
Author Organization [facility] Address [id number] [address] [place] [address] Care Team Providers Care Quarry Supervisor Name Role Phone KiaraAlly stevenson APRN-ORACLE APPLICATIONS ANALYST Primary Care Provi collin Encounter Details Date Type Department Care Team (Late st Contact Info) Description 09/25/2021 Orders Only [facility] General Surgery-B[facility]ric [address] [facility] [place] [phone] Evelyn Flower CMA Social History Tobacco Use [...] Author D/C Home General Yes Yaneth Bright, RAFA-ORACLE APPLICATIONS ANALYST Note: Evaluation of progress towards goal: Pt plans to d/c home with self care and family support. documented as of this encounter Visit Diagnoses Not on filedocumented in this encounter Additional Health Concerns Assessment Noted Time PHQ-9 Depression Total Score: 0 04/01/20 21 11:14 AM EDT documented as of this encounter Care Teams Quarry Supervisor Relationship Specialty Start Date End Date Ally Craig, RAFA-ORACLE APPLICATIONS ANALYST [address], [place] [address] PCP - General Family Medicine 04/12/18 documented as of this encounter
--- OUTSIDE RECORDS SUMMARY | 2024-11-24 15:00 | XMS_ITS | Encounter Summary ---
Author Organization [facility] tem Address [id number] [address] [place] [address] Care Team Providers Care Safe Expert Name Role Phone Ally Craig APRN-ALTERNATIVE EDUCATION TEACHER Primary Care Provi collin Encounter Details Date Type Department Care Team (Late st Contact Info) Description 08/20/2021 Telephone [facility] Family [facility] [address] [place] [address] [place] [address] Leslie Deal CMA Social History [...] Author D/C Home General Yes Yaneth Bright, RAFA-ALTERNATIVE EDUCATION TEACHER Note: Evaluation of progress towards goal: Pt plans to d/c home with self care and family support. documented as of this encounter Visit Diagnoses Not on filedocumented in this encounter Additional Health Concerns Assessment Noted Time PHQ-9 Depression Total Score: 0 04/01/20 21 11:14 AM EDT documented as of this encounter Care Teams Safe Expert Relationship Specialty Start Date End Date Ally Craig APRN-ALTERNATIVE EDUCATION TEACHER [address], [place] [address] PCP - General Family Medicine 04/12/18 documented as of this encounter
--- OUTSIDE RECORDS SUMMARY | 2024-11-24 15:00 | XMS_ITS | Clinical Summary ---
Author Organization [facility] Address [address] [place] [address] Care Team Providers Care Clean Rice Grader And Reel Tender Name Role Phone Ally Craig APRN - TRANSPORTATION ESCORT Primary Care Pro vider Allergies Active Allergy Reactions Criticality Noted Date Comments Billings Extract Anaphylaxis High 02/01/2019 Medications vitamin D (ERGOCALCIFEROL ) 59816 units CAPS capsule Take 1 capsule by [...] this topic Medical Devices Implanted Type Area Behavioral Health Rn Device Identifier Shelf Expiration Date Model / Serial / Lot Plate Recon 3.5mm Low Prof 6h Implanted:Qty : 1 on 02/08/2019 by Ernesto Levine DO at [facility] Screw/Pl ate/Nail /Blane Right: Acetabulum SYNTHES-PMM [id number] / / Screw Cortx Slftp Fthrd 3.5x32mm Implanted:Qty : 1 on 02/08/2019 by Ernesto Levine DO at [facility] Screw/Pl ate/Nail /Blane Right: Acetabulum SYNTHES-PMM [id number] / / Screw Cortx Slftp Fthrd 3.5x34mm Implanted:Qty : 1 on 02/08/2019 by Ernesto Levine DO at [facility] Screw/Pl ate/Nail /Blane Right: Acetabulum SYNTHES-PMM [id number] / / Screw Cortx Slftp Fthrd 3.5x40mm Implanted:Qty : 1 on 02/08/2019 by Ernesto Levine DO at [facility] Screw/Pl ate/Nail /Blane Right: Acetabulum SYNTHES-PMM [id number] / / Screw Cortx Fthrd Slftp Ss 3.5x80mm Implanted:Qty : 1 on 02/08/2019 by Ernesto Levine DO at [facility] Screw/Pl ate/Nail /Blane Right: Acetabulum SYNTHES-PMM [id number] / / Explanted Type Area Behavioral Health Rn Device Identifier Shelf Expiration Date Model / Serial / Lot Pin Explanted:Qty: 1 on 02/08/2019 at [facility] Description:thrown in sharps container Helen Retentioner Explanted:Qty: 1 on 02/08/2019 at [facility] Description:recyled Insurance [facility] [place] [employer] [employer] [address] [place] GENERIC [place] [address] [place] [address] [facility] GENERIC AUTO INSURANCE GENERIC AUTO INSURANCE [facility] [place] GENERIC [...] 4:31 AM 02/15/2019 1:50 PM Care Teams Clean Rice Grader And Reel Tender Relationship Specialty Start Date End Date Ally Craig, PLANNING DIRECTOR - TRANSPORTATION ESCORT [address] [place] [address] PCP - General Nurse Practitioner 01/31/19
--- OUTSIDE RECORDS SUMMARY | 2024-11-24 15:00 | XMS_ITS | Encounter Summary ---
Author Organization [facility] Address [address] [place] [address] Care Team Providers Care Brown Sourer Name Role Phone Unavailable Primary Care Provider Unavailabl e Encounter Details Date Type Department Care Team (Late st Contact Info) Description 07/31/2024 Abstract [facility] OB [address] [place] [id number] Cedric Warner, DO [address] [facility] [address] [place], [place] [address] Social History Tobacco Use Types Packs/Day Years [...]
--- OUTSIDE RECORDS SUMMARY | 2024-11-24 15:00 | XMS_ITS | Encounter Summary ---
Author Organization [facility] Address [id number] [address] [place] [address] Care Team Providers Care Rat Breeder Name Role Phone Ally Craig APRN-DEVELOPER TRADING SYSTEMS Primary Care Provi collin Reason for Visit * Reason Onset Date Comments Med Refill 04/30/2020 Encounter Details Date Type Department Care Team (Late st Contact Info) Description 04/30/2020 Telephone [facility] Family Medicine [address] [place] [address] [place] [address] Nataly Caballero CMA Med Refill [...] Author D/C Home General Yes Yaneth Bright, HYDRO STATION SUPERVISOR-DEVELOPER TRADING SYSTEMS Note: Evaluation of progress towards goal: Pt [...] documented as of this encounter Care Teams Rat Breeder Relationship Specialty Start Date End Date Ally Craig, RAFA-DEVELOPER TRADING SYSTEMS [address], [place] [address] PCP - General Family Medicine 04/12/18 documented as of this encounter
--- OUTSIDE RECORDS SUMMARY | 2024-11-24 15:00 | XMS_ITS | Encounter Summary ---
Author Organization [facility] Address [address] [place] [address] Care Team Providers Care Drying Machine Operator Name Role Phone Unavailable Primary Care Provider Unavailabl e Encounter Details Date Type Department Care Team (Late st Contact Info) Description 06/15/2024 Abstract [facility] OB [address] [place] [address] Cedric Warner, DO [address] [facility] [address] [place], [place] [address] Social History Tobacco Use Types Packs/Day Years [...]
--- OUTSIDE RECORDS SUMMARY | 2024-11-24 15:00 | XMS_ITS | Encounter Summary ---
Author Organization [facility] tem Address [id number] [address] [place] [address] Care Team Providers Care Mount Loader Name Role Phone Ally Craig INTERIOR DESIGN ASSISTANT-GUIDE ESCORT Primary Care Provi collin Encounter Details Date Type Department Care Team (Late st Contact Info) Description 03/27/2021 Telephone [facility] Family Medicine [address] [place] [address] [place] [address] Ally Craig, INTERIOR DESIGN ASSISTANT-GUIDE ESCORT [address] [facility] [address], [place] [address] Social History Tobacco Use Types [...] documented as of this encounter Care Teams Mount Loader Relationship Specialty Start Date End Date Ally Craig APRN-CNP [address], [place] [address] PCP - General Family Medicine 04/12/18 documented as of this encounter
--- NOTE | 2024-11-24 15:07 | US_ITS ---
[place] [id number] Patient Name: MADDIE ORNELAS MRN: [id number] date: 1995 Sex: F Assigned Patient Location: [facility] Current Patient Location: [facility] Accession/Order Number: [id number] Exam Date: 11/24/2024 16:17 Report Date: 11/24/2024 16:18 At the request of: ARMINDA WHITE DO Procedure: US OB BPP w non-stress Ultrasound biophysical profile HISTORY: History of gastric sleeve Adequate breathing movement, gross body movement, tone and amniotic fluid volume for total score of 8 out of 8. The amniotic fluid index is 14.7cm within normal limits. The heart rate 167 bpm. US/US OB BPP w non-stress IMPRESSION: Adequate ultrasound biophysical profile Impression dictated by: Anthony Diaz M.D. 11/24/2024 4:18 PM Dictation Location: [facility] Electronically authenticated by: [id number] Y Date: 11/24/2024 16:18
[2024-11-24 15:52] VITALS: BP 113/61; PULSE 82
== END 2024-11-24 16:36 | disposition home or self-care (01) ==
LOC: US 14:57 → FBC 14:59
PROVIDERS: PCP Nurse Practitioner; Visit Provider Obstetrics & Gynecology
DX: O36.5930 Maternal care for other known or suspected poor fetal growth, third trimester, not applicable or unspecified (principal); Z3A.37 37 weeks gestation of pregnancy
CPT/HCPCS: 76818

== ENCOUNTER 2024-11-28 15:31 | Outpatient (OUT) | payer OTHER, SELFPAY ==
--- OUTSIDE RECORDS SUMMARY | 2023-09-30 06:30 | XMS_ITS ---
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 Obtain ordered labs. 09/30/2023 termite exterminator helper current use of antipsychotic medication (ICD-10 - [...] * Jana RAMANDOB:1995 ( 29 yo F)Acc No.[id number]:09/30/2023 Patient: Sean SOTO Jana Provider: TANYA Centeno :1995 A ge:28 Y S ex:Female Date:09/30/2023 Address:[address] [place] [phone] Subjective: * Chief Complaints: * 1 . [...] Problems: * Billing Information: * Visit Code: 12135 Office Visit Est 10 -19 minutes. * Procedure Codes: Care Plan Details* * Electronic signature of TANYA Peters on 11/28/2024 at 03:34 PM EDT Sign off status: Pending * Provider: TANYA Centeno Date: 0 09/30/2023 Generated for Jc eason/William/Rony on: 0 11/28/2024 03:34 PM EDT
--- OUTSIDE RECORDS SUMMARY | 2024-01-07 05:00 | XMS_ITS ---
Author Organization [facility] Address [address] [place] [address] Care Team Providers Care Pants Busheler Name Role Phone Pascale Mcmahon Unavailable [phone] REASON FOR VISIT LUMBAR PAIN Encounters Encounter Location Date Provider Diagnosis [facility] Office [address] [place] [address] [place] [address] 01/07/[address] [facility]uelas Lumbar back pain M54.50 Assessments Encounter Date Diagnosis (ICD Code) Assessment Notes Treatment Notes Treatment Clinical Notes Section Notes 01/07/2024 Lumbar back pain (ICD-10 - M54.50) Plan Of Treatment Pending Test Test Name Order Date Lumbar spine 2v flex and ext - 59040 Progress Notes * RE CULLENCA CDOB:1995 (29 yo F)Acc No.[id number]:01/07/2024 Patient: MADDIE VEGA Provider: Edwardo García MD, PhD :1995 A ge:28 Y S ex:Female Date:01/07/2024 Address:[address] [place], [place] [id number] Subjective: * Chief Complaints: * 1 . LUMBAR PAIN. * Medical History: Objective: * Vitals: Assessment: * Assessment: 1. L umbar back pain - M54.50 (Primary) Plan: * Treatment: Forms: * Images: * Electronic signature of Selv on [facility] Jessenia MD, PHD on 11/28/2024 at 03:33 PM EDT Sign off status: Pending * Provider: Edwardo Gacría MD, PhD Date: 01/07/2024 Generated for Printi ng/William/Lauraitting on: 0 11/28/2024 03:33 PM EDT
--- OUTSIDE RECORDS SUMMARY | 2024-11-14 13:50 | XMS_ITS | Encounter Summary ---
Author Organization [facility] Address [address] [address] Care Team Providers Care Cleater Name Role Phone Unavailable Primary Care Provider Unavailabl e Reason for Visit * Reason Comments Routine Visit Encounter Details Date Type Department Care Team (Late st Contact Info) Description 11/14/2024 1:50 PM EDT Routine [facility] OB [address] [place] [phone] Cedric Warner, DO [address] [place] [address] 35 weeks gestation of ; Third trimester [...] nursing note reviewed. Exam conducted with a global supply chain director present. Vitals: Estimated body mass index is [...]
--- OUTSIDE RECORDS SUMMARY | 2024-11-20 04:00 | XMS_ITS ---
Author Organization [facility] vices Address [address], [place] [address] Care Team Providers Care Work Over Rig Operator Name Role Phone Mary Ellen Kelli Unavailable [phone] REASON FOR VISIT Bi Polar disorder Social History Sex Assigned At : Social History Observation Description Sex Assigned At Female Encounters Encounter Location Date Provider Diagnosis Main [address] [place] [id number] 11/20/2024 Kelli Hyde Plan Of Treatment No Information Progress Notes * Jana ORNELASDOB:1995 ( 29 yo F)Acc No.[id number]:11/20/2024 Patient: Jana VEGA Provider: TANYA Regalado :1995 A ge:29 Y S ex:Female Date:11/20/2024 Address:[address] [place], [place] [phone] Subjective: * Chief Complaints: * 1 . Bi Polar disorder. * Medical History: Objective: * Vitals: Assessment: Plan: * Treatment: Care Plan: * Problems: * Billing Information: * Visit Code: * Procedure Codes: Care Plan Details* * Electronic signature of TANYA Dixon on 11/28/2024 at 03:34 PM EDT Sign off status: Pending * Provider: TANYA Regalado Date: 11/20/2024 Generated for Jc ng/Fachrissyg/eTransmitting on: 11/28/2024 03:34 PM EDT
--- OUTSIDE RECORDS SUMMARY | 2024-11-22 04:30 | XMS_ITS ---
Author Organization [facility] vices Address [address] [place], [place] [id number] Care Team Providers Care Heel Attacher Name Role Phone Mary Ellen Kelli Unavailable [phone] REASON FOR VISIT f/u Social History Sex Assigned At : Social History Observation Description Sex Assigned At Female Encounters Encounter Location Date Provider Diagnosis Main [address] [id number] 11/22/2024 Kelli Hyde Plan Of Treatment No Information Progress Notes * Jana RAMANDOB:1995 ( 29 yo F)Acc No.[id number]:11/22/2024 Patient: Jana VEGA Provider: TANYA Regalado :1995 A ge:29 Y S ex:Female Date:11/22/2024 Address:[address] [place], [place] [phone] Subjective: * Chief Complaints: * 1 . F/u. * Medical History: Objective: * Vitals: Assessment: Plan: * Treatment: Care Plan: * Problems: * Billing Information: * Visit Code: * Procedure Codes: Care Plan Details* * Electronic signature of TANYA Dixon on 11/28/2024 at 03:33 PM EDT Sign off status: Pending * Provider: TANYA Regalado Date: 11/22/2024 Generated for Chichoi ng/Fachrissyg/eTransmitting on: 11/28/2024 03:33 PM EDT
--- OUTSIDE RECORDS SUMMARY | 2024-11-22 09:50 | XMS_ITS | Encounter Summary ---
Author Organization [facility] Address [address] [place] [address] Care Team Providers Care History Department Chair Name Role Phone Unavailable Primary Care Provider Unavailabl e Reason for Visit * Reason Comments Routine Visit Encounter Details Date Type Department Care Team (Latest Contact Info) Description 11/22/2024 9:50 AM EDT Routine [facility] [address] [place] [phone] Zoraida Leslie PA [address] [place] [address] Nonintractable headache, unspecified chronicity pattern, unspecified headache type (Primary Dx); Third trimester ; 36 weeks gestation of Social History Tobacco Use Types Packs/Day Years [...] Sign Reading Time Taken Comments Blood Pressure 118/82 11/22/2024 10:18 AM EDT BP retaken 5 min later Pulse - - Temperature - - Respiratory Rate - - Oxygen Saturation - - Inhaled Oxygen Concentration - - Weight 122 kg (269 lb 8 oz) 11/22/2024 10:09 AM EDT Height - - Body Mass Index 44.85 11/24/2022 9:10 AM EDT documented in this encounter Progress Notes * JULIETTE Zuniga - 11/22/2024 9:50 AM EDT Reason for Appointment: Patient [...] reviewed. Vitals: Estimated body mass index is 44.85 kg/m?? as calculated from the following: Height as of 11/24/22: 5' 5 . Weight as of this encounter: 269 lb 8 oz. BP: 118/82 No LMP recorded. Patient is . ASSESSMENT & PLAN ICD-10-CM 1. Third trimester Z34.93 POCT urinalysis dipstick manually resulted 2. 36 weeks gestation of Z3A.36 Patient presents today for a routine obstetrics appointment. Patient is currently 36w6d with a Estimated Date of Delivery: 12/14/24. Return OB: Patient presents today for a routine obstetrics appointment. Patient is currently 36w6d . Patient states she is doing well [...] of: JULIETTE Zuniga documented in this encounter Miscellaneous Notes * Addendum Note - JULIETTE Zuniga - 11/22/2024 9:50 AM EDTAddended by: ZORAIDA LESLIE on: 11/22/2024 10:45 AM Modules accepted: Orders documented in this encounter Plan of Treatment Not on file documented as of this encounter Procedures Procedure Name Priority Date/Time Associated Diagnosis Comments POCT URINALYSIS DIPSTICK Routine 11/22/2024 10:19 AM EDT Third trimester documented in this encounter Results * (ABNORMAL) POCT urinalysis dipstick manually resulted (11/22/2024 10:19 AM EDT) Color, UA Yellow Clarity, UA Clear Glucose, UA Negative Negative - 2000(110) ++++ mg/dL Bilirubin, UA Positive Negative - 4(70) +++ mg/dL Comment:small Ketones, UA Negative Negative - 160(16) ++++ mg/dL Spec Grav, UA 1.025 1 - 1.03 Blood, UA Negative Negative - 50 Miguel Angel/mcL pH, UA 7.5 5 - 9 Protein, UA Positive Negative - 1999(20) ++++ mg/dL Comment:30mg/dL Urobilinogen, UA 1.0 0.2 - 12 mg/dL Leukocytes, UA Negative Negative - 500+++ Eleonora/mcL Nitrite, UA Negative Negative - Positive Urine 11/22/2024 10:1 9 AM EDT Zoraida SEGOVIA POINT OF CARE TEST ENTER/EDIT OR DERABLES Final Result documented in this encounter Visit Diagnoses Diagnosis Nonintractable headache, unspecified chronicity pattern, unspecified headache type- Primary Third trimester state, incidental 36 weeks gestation of documented in this encounter
--- OUTSIDE RECORDS SUMMARY | 2024-11-28 15:33 | XMS_ITS | Encounter Summary ---
Author Organization [facility] Address [address] [place] [address] Care Team Providers Care Fern Gatherer Name Role Phone Unavailable Primary Care Provider Unavailabl e Encounter Details Date Type Department Care Team (Late st Contact Info) Description 11/21/2024 Clinisync Result Encounter [facility] External Department Unsolicited Arminda Warner, DO [address] [facility] [place] [address] Social History Tobacco Use Types [...] EDT Narrative 11/21/2024 9:06 AM EDT [facility] [address] [place] [address] Ultrasound Report Signed Patient: MADDIE RAMAN MR#: [id number] : 1995 Acct:[id number] Age/Sex: 29 / F ADM Date: 11/21/24 Loc: [facility] 250-[address]: Arminda Warner D.O. Ordering Physician: Arminda Warner D.O. Date of Service: 11/21/24 Procedure(s): US OB amniotic fluid vol Accession Number(s): [id number] cc: Arminda Warner D.O.; Ally Craig NP The [place] [address] Patient Name: MADDIE RAMAN MRN: [id number] date: 1995 Sex: F Assigned Patient Location: [facility] Current Patient Location: Accession/Order Number: [id number] Exam Date: 11/21/2024 08:56 Report Date: 11/21/2024 [...] Jensen M.D. 11/21/2024 8:59 AM Dictation Location: [place] [address] Electronically authenticated by: [id number] Y Date: 11/21/2024 08:59 Dictated By: Smita Jensen M.D. Signed By: 11/21/24 0906 DD/ 0859 TD/TT: Air Dispatcher: Procedure Note Radiology, Radiologist, - 11/21/2024 [place] [address] Ultrasound Report Signed Patient: MADDIE RAMAN CMR#: [id number] : 1995Acct:[id number] Age/Sex: 29 / FADM Date: 11/21/24 Loc: [facility] 250-[address]: Arminda Warner D.O. Ordering Physician: Arminda Warner D.O. Date of Service: 11/21/24 Procedure(s): US OB amniotic fluid vol Accession Number(s): [id number] cc: Arminda Warner D.O.; Ally Craig NP [place] [address] Patient Name: MADDIE RAMAN MRN: [id number] date: 1995 Sex: F Assigned Patient Location: [facility] Current Patient Location: Accession/Order Number: [id number] Exam Date: 11/21/2024 08:56 Report Date: 11/21/2024 [...] Jensen M.D. 11/21/2024 8:59 AM Dictation Location: [place] [address] Electronically authenticated by: [id number] Y Date: 508:59 Dictated By: Smita Jensen M.D. Signed By:11/21/24 0906 DD/ 0859 TD/TT: Air Dispatcher: Arminda Warner DO IMG XR PROCEDURES Final Result documented in this encounter Visit Diagnoses Not on filedocumented in this encounter
--- OUTSIDE RECORDS SUMMARY | 2024-11-28 15:33 | XMS_ITS | Encounter Summary ---
Author Organization [facility] Address [address] [place] [address] Care Team Providers Care Telecommunications Line Installer Name Role Phone Unavailable Primary Care Provider Unavailabl e Encounter Details Date Type Department Care Team (Late st Contact Info) Description 11/14/[address] [facility] OB [address] [place] [phone] Cedric Warner, DO [address] [place], [place] [address] Social History Tobacco Use Types Packs/Day Years [...]
--- OUTSIDE RECORDS SUMMARY | 2024-11-28 15:33 | XMS_ITS | Encounter Summary ---
Author Organization [facility] Address [address] [place] [address] Care Team Providers Care Impregnating Helper Name Role Phone Unavailable Primary Care Provider Unavailabl e Encounter Details Date Type Department Care Team (Late st Contact Info) Description 11/22/2024 Bamboo flowsheet [facility] OB [address] [facility] [place] [address] Zoraida Travis PA [address] [facility] [address] [place], [facility] Social History Tobacco Use Types Packs/Day [...]
--- OUTSIDE RECORDS SUMMARY | 2024-11-28 15:34 | XMS_ITS | Encounter Summary ---
Author Organization [facility] Address [address] [place] [address] Care Team Providers Care Mesmerist Name Role Phone Unavailable Primary Care Provider Unavailabl e Encounter Details Date Type Department Care Team (Late st Contact Info) Description 08/24/2024 Abstract [facility] OB [address] [place] [phone] Cedric Warner, DO [address] [facility] [address] [place], [place] [address] Social History Tobacco Use Types Packs/Day Years [...]
--- OUTSIDE RECORDS SUMMARY | 2024-11-28 15:34 | XMS_ITS | Encounter Summary ---
Author Organization [facility] Address [address] [place] [address] Care Team Providers Care Electric Organ Checker Name Role Phone Unavailable Primary Care Provider Unavailabl e Encounter Details Date Type Department Care Team (Late st Contact Info) Description 11/08/2024 Abstract [facility] OB [address] [place] [address] Cedric Warnre, DO [address] [facility] [address] [place], [place] [address] Social History Tobacco Use Types Packs/Day Years [...]
--- OUTSIDE RECORDS SUMMARY | 2024-11-28 15:34 | XMS_ITS | Encounter Summary ---
Author Organization [facility] tem Address [id number] [address] [place] [address] Care Team Providers Care Boomswing Operator Name Role Phone Ally Craig APRN-SKID ROAD MAN Primary Care Provi collin Encounter Details Date Type Department Care Team (Late st Contact Info) Description 08/20/2021 Telephone [facility] [address] [place] [address] [place] [address] Leslie Deal CMA Social History [...] Author D/C Home General Yes [place] Bright, RAFA-SKID ROAD MAN Note: Evaluation of progress towards goal: Pt plans to d/c home with self care and family support. documented as of this encounter Visit Diagnoses Not on filedocumented in this encounter Additional Health Concerns Assessment Noted Time PHQ-9 Depression Total Score: 0 04/01/20 21 11:14 AM EDT documented as of this encounter Care Teams Boomswing Operator Relationship Specialty Start Date End Date Ally Craig APRN-SKID ROAD MAN [address], [place] [address] PCP - General Family Medicine 04/12/18 documented as of this encounter
--- OUTSIDE RECORDS SUMMARY | 2024-11-28 15:34 | XMS_ITS | Encounter Summary ---
Author Organization [facility] Address [id number] [address] [place] [address] Care Team Providers Care Laborer Wood Preserving Plant Name Role Phone Ally Craig PETROLEUM SUPPLY SPECIALIST-TIGER MACHINE OPERATOR Primary Care Provi collin Encounter Details Date Type Department Care Team (Late st Contact Info) Description 03/29/2024 Telephone [facility] General Surgery-Bariatric [address] [address] Lauren Arndt MD [address] [place] [address] Social History Tobacco Use Types [...] Author D/C Home General Yes Yaneth Bright APRN-TIGER MACHINE OPERATOR Note: Evaluation of progress towards goal: Pt plans to d/c home with self care and family support. documented as of this encounter Visit Diagnoses Not on filedocumented in this encounter Additional Health Concerns Assessment Noted Time PHQ-9 Depression Total Score: 19 023 10:14 AM EDT documented as of this encounter Care Teams Laborer Wood Preserving Plant Relationship Specialty Start Date End Date Ally Craig, PETROLEUM SUPPLY SPECIALIST-TIGER MACHINE OPERATOR [address], [place] [address] PCP - General Family Medicine 04/12/18 documented as of this encounter
--- OUTSIDE RECORDS SUMMARY | 2024-11-28 15:34 | XMS_ITS | Encounter Summary ---
Author Organization [facility] Address [address] [place] [address] Care Team Providers Care Sourcing Specialist Name Role Phone Unavailable Primary Care Provider Unavailabl e Encounter Details Date Type Department Care Team (Late st Contact Info) Description 11/17/2024 Clinisync Result Encounter [facility] External Department Unsolicited Arminda Warner, DO [address] [facility] [place] [address] Social History Tobacco Use Types [...] EDT Narrative 11/17/2024 3:48 PM EDT [facility] [address] [place] [address] Ultrasound Report Signed Patient: MADDIE RAMAN MR#: [id number] : 1995 Acct:[id number] Age/Sex: 29 / F ADM Date: 11/17/24 Loc: [facility] 250-[address]: Arminda Warner D.O. Ordering Physician: Arminda Warner D.O. Date of Service: 11/17/24 Procedure(s): US OB BPP w non-stress Accession Number(s): [id number] cc: Arminda Warner D.O.; Ally Craig NP [place] [address] Patient Name: MADDIE RAMAN MRN: [id number] date: 1995 Sex: F Assigned Patient [place] [facility] Current Patient Location: [facility] Accession/Order Number: [id number] Exam Date: 11/17/2024 15:43 Report Date: 11/17/2024 [...] Diaz M.D. 11/17/2024 3:46 PM Dictation Location: [place] [address] Electronically authenticated by: [id number] Y Date: 11/17/2024 15:46 Dictated By: Anthony Diaz D.O. Signed By: 11/17/24 1548 DD/ 1546 TD/TT: Geotechnical Intern: Procedure Note Radiology, Radiologist, - 11/17/2024 [place] [address] Ultrasound Report Signed Patient: MADDIE RAMAN CMR#: [id number] : 1995Acct:[id number] Age/Sex: 29 / FADM Date: 11/17/24 Loc: [facility] 250-[address]: Arminda Warner D.O. Ordering Physician: Arminda Warner D.O. Date of Service: 11/17/24 Procedure(s): US OB BPP w non-stress Accession Number(s): [id number] cc: Arminda Warner D.O.; Ally Craig NP [place] [address] Patient Name: MADDIE RAMAN MRN: [id number] date: 1995 Sex: F Assigned Patient Location: [facility] Current Patient Location: [facility] Accession/Order Number: [id number] Exam Date: 11/17/2024 15:43 Report Date: 11/17/2024 [...] Diaz M.D. 11/17/2024 3:46 PM Dictation Location: [place] [address] Electronically authenticated by: [id number] Y Date: 5:46 Dictated By: Anthony Diaz D.O. Signed By:11/17/24 1548 DD/ 1546 TD/TT: Geotechnical Intern: Arminda Warner DO [facility] Final Result documented in this encounter Visit Diagnoses Not on filedocumented in this encounter
--- OUTSIDE RECORDS SUMMARY | 2024-11-28 15:34 | XMS_ITS | Encounter Summary ---
Author Organization [facility] Address [facility]-[id number] [address] [place] [address] Care Team Providers Care Assistant Manager/Embalmer Name Role Phone KiaraAlly stevenson APRN-PUSHER RUNNER Primary Care Provi collin Encounter Details Date Type Department Care Team (Late st Contact Info) Description 09/25/2021 Orders Only [facility] General Surgery-B[facility]ric [address] [facility] [place] [phone] Evelyn Flower CMA Social History Tobacco Use [...] Author D/C Home General Yes Yan[place] Bright, RAFA-PUSHER RUNNER Note: Evaluation of progress towards goal: Pt plans to d/c home with self care and family support. documented as of this encounter Visit Diagnoses Not on filedocumented in this encounter Additional Health Concerns Assessment Noted Time PHQ-9 Depression Total Score: 0 04/01/20 21 11:14 AM EDT documented as of this encounter Care Teams Assistant Manager/Embalmer Relationship Specialty Start Date End Date Ally Craig, RAFA-PUSHER RUNNER [address], [place] [address] PCP - General Family Medicine 04/12/18 documented as of this encounter
--- OUTSIDE RECORDS SUMMARY | 2024-11-28 15:34 | XMS_ITS | Encounter Summary ---
Author Organization [facility] tem Address [id number] [address] [place] [address] Care Team Providers Care Life Consultant Name Role Phone Ally Craig STAFF APPRAISER-DIRECTOR [employer] Primary Care Provi collin Reason for Referral * Diagnostic Imaging (Routine) - Pending Review Specialty Diagnoses / Procedures Referred By Violeta dalal Referred To Contact Maternal and Medicine Diagnoses History of sleeve gastrectomy Hx of supraventricular tachycardia Encounter for anatomic survey Procedures US [facility] with or without consult Cedric Warner DO [address] [place] [address] [place] [address] Phone: tel: fax: Maternal- Medicine at [facility] [address] [place] [address] Phone: tel: fax: Referral ID Status Reason Start Date Expiration Date V isits Requested Visits Authorized [id number] Pending Review 08/11/2024 08/11/2025 1 1 Encounter Details Date Type Department Care Team (Late st Contact Info) Description 08/11/2024 Orders Only Maternal- Medicine at [facility] [address] [place] [address] CMA History of [...] Author D/C Home General Yes Yaneth Bright, STAFF APPRAISER-DIRECTOR [employer] Note: Evaluation of progress towards goal: Pt plans to d/c home with self care and family support. documented as of this encounter Results * [facility] COMPREHENSIVE ANATOMIC SURVEY (08/24/2024 9:48 AM EST) Anatomical Region Laterality Modality OB-EQUIPMENT VALIDATION SPECIALIST Ultrasound 08/24/2024 7:49 AM EST Narrative 08/24/2024 12:47 PM EST NAME: CECI PERKINS : 1995 SEX: F Accession Number: [id number] ORDERING PHYSICIAN: CEDRIC WANRER REFERRING PHYSICIAN: CEDRIC WARNER Coding ----- --------- Procedures 83890: Ultrasound, uterus, real time with image documentation, and maternal evaluation plus detailed anatomic examination, transabdominal approach;single or first gestation 63042: Transvaginal Ultrasound (OB) Indication ----- --------- Obesity in , Placenta previa, Screening for Anatomic Survey, Screening for cervical length History ----- --------- OB History 7. Para 1 [id number] Maternal Assessment ----- --------- Physical Exam Height [...] 1 lb 7 oz EFW by Hadlock ([id number]-FL) Head / Face / Neck Biometry: Cephalic index 0.69 <1% Nicolaides Repairer Auto Clocks 4.2 mm CM 6.6 mm 70% Nicolaides [...] Maxilla. Mandible. Heart / Thorax LVOT view. 4-atmaye-oqgofkk view. Aortic arch view. Bicaval view. Ductal [...] 4.8 cm. Recommendations ----- --------- Please see [facility] documentation from today. The patient is scheduled in four to six week(s) to complete anatomic survey. Subsequent follow up or other follow up as clinically determined by primary OB provider unless otherwise specified by [facility]. Results forwarded to ordering provider so they can follow up with the patient as necessary. Procedure Note Erlin Chung MD - 08/24/2024 NAME: CECI PERKINS : 1995 SEX: F Accession Number: [id number] ORDERING PHYSICIAN: CEDRIC WARNER REFERRING PHYSICIAN: CEDRIC WARNER Coding ----- --------- Procedures 90081: Ultrasound, uterus, real time with imagedocumentation, and maternal evaluation plus detailed anatomic examination, transabdominalapproach;single or first gestation 34167: Transvaginal Ultrasound (OB) Indication ----- --------- Obesity in , Placenta previa, Screening for Anatomic Survey,Screening for cervical length History ----- --------- OB History 7. Para 1 [id number] Maternal Assessment ----- --------- Physical Exam Height [...] 1 lb 7 oz EFW by Hadlock ([id number]-YV-[id number]-FL) Head / Face / Neck Biometry: Cephalic index 0.69 <1% Nicolaides Repairer Auto Clocks 4.2 mm CM 6.6 mm 70% Nicolaides [...] Maxilla. Mandible. Heart / Thorax LVOT view. 5-jmmtrf-ukoreck view. Aortic arch view. Bicavalview. Ductal arch [...] as necessary. us Cedric R Alana DO [facility] [place] Final Result documented in this encounter Visit Diagnoses Diagnosis History of sleeve gastrectomy- Primary Hx of supraventricular tachycardia Encounter for anatomic survey History of sleeve gastrectomy Hx of supraventricular tachycardia Encounter for anatomic survey documented in this encounter Additional Health Concerns Assessment Noted Time PHQ-9 Depression Total Score: 19 023 10:14 AM EDT documented as of this encounter Care Teams Life Consultant Relationship Specialty Start Date End Date Ally Craig APRN-DIRECTOR [employer] [address], [place] [address] PCP - General Family Medicine 04/12/18 documented as of this encounter
--- OUTSIDE RECORDS SUMMARY | 2024-11-28 15:34 | XMS_ITS | Encounter Summary ---
Author Organization [facility] Address [id number] [address] [place] [address] Care Team Providers Care Broth Setter Name Role Phone Kiara, Ally Donn MULTI PURPOSE MACHINE OPERATOR-HEAD GREENSKEEPER Primary Care Provi collin Encounter Details Date Type Department Care Team (Late st Contact Info) Description 12/17/2020 Orders Only [facility] [address] [place] [phone] External, Scanning Provider Social History Tobacco Use [...] Author Husain/C Home General Yes Yaneth Bright, MULTI PURPOSE MACHINE OPERATOR-HEAD GREENSKEEPER Note: Evaluation of progress towards goal: Pt plans to d/c home with self care and family support. documented as of this encounter Procedures Procedure Name Priority Date/Time Associated Diagnosis Comments PAP SMEAR Routine 12/17/2020 documented in this encounter Results * PAP SMEAR (12/17/2020) us Scanning Provider External OR PROFESSIONAL SERVI LINDA Final Result MANUALLY TRANSCRIBED RESULTS documented in this encounter Visit Diagnoses Not on filedocumented in this encounter Additional Health Concerns Infection Onset Date Last Indicated Resolved Time COVID-19 Rule-Out 05/27/2021 05/27/2021 05/28/2021 7:43 PM EST Assessment Noted Time PHQ-9 Depression Total Score: 0 01/22/20 20 2:00 PM EDT documented as of this encounter Care Teams Broth Setter Relationship Specialty Start Date End Date Ally Craig, MULTI PURPOSE MACHINE OPERATOR-HEAD GREENSKEEPER [address], [place] [address] PCP - General Family Medicine 04/12/18 documented as of this encounter
--- OUTSIDE RECORDS SUMMARY | 2024-11-28 15:34 | XMS_ITS | Encounter Summary ---
Author Organization [facility] Address [address] [place] [address] Care Team Providers Care Personal Financial Planner Name Role Phone Unavailable Primary Care Provider Unavailabl e Encounter Details Date Type Department Care Team (Late st Contact Info) Description 11/24/2024 Clinisync Result Encounter [facility] External Department Unsolicited Arminda Warner, DO [address] [facility] [place] [address] Social History Tobacco Use Types [...] Diagnosis Comments US OB BPP W NON-STRESS 11/24/2024 4:18 PM EDT documented in this encounter Results * US OB BPP W NON-STRESS (11/24/2024 4:18 PM EDT) Anatomical Region Laterality Modality Other 11/24/2024 4:18 PM EDT Narrative 11/24/2024 4:20 PM EDT [facility] [address] [place] [address] Ultrasound Report Signed Patient: MADDIE RAMAN MR#: [id number] : 1995 Acct:[id number] Age/Sex: 29 / F ADM Date: 11/24/24 Loc: [facility] 250-[address]: Arminda Warner D.O. Ordering Physician: Arminda Warner D.O. Date of Service: 11/24/24 Procedure(s): US OB BPP w non-stress Accession Number(s): [id number] cc: Arminda Warner D.O.; Ally Carig NP The [place] [address] Patient Name: MADDIE RAMAN MRN: [id number] date: 1995 Sex: F Assigned Patient Location: [facility] Current Patient Location: [facility] Accession/Order Number: [id number] Exam Date: 11/24/2024 16:17 Report Date: 11/24/2024 16:18 At the request of: ARMINDA WARNER DO Procedure: US OB BPP w non-stress Ultrasound biophysical profile HISTORY: History of gastric sleeve Adequate breathing movement, gross body movement, tone and amniotic fluid volume for total score of 8 out of 8. The amniotic fluid index is 14.7cm within normal limits. The heart rate 167 bpm. US/US OB BPP w non-stress IMPRESSION: Adequate ultrasound biophysical profile Impression dictated by: Anthony Diaz M.D. 11/24/2024 4:18 PM Dictation Location: [place] [address] Electronically authenticated by: [id number] Y Date: 11/24/2024 16:18 Dictated By: Anthony Diaz D.O. Signed By: 11/24/24 1620 DD/ 1618 TD/TT: Preschool Director: Procedure Note Radiology, Radiologist, - 11/24/2024 [place] [address] Ultrasound Report Signed Patient: MADDIE RAMAN CMR#: [id number] : 1995Acct:[id number] Age/Sex: 29 / FADM Date: 11/24/24 Loc: [facility] 250-[address]: Arminda Warner D.O. Ordering Physician: Arminda Warner D.O. Date of Service: 11/24/24 Procedure(s): US OB BPP w non-stress Accession Number(s): [id number] cc: Arminda Warner D.O.; Ally Craig NP [place] [address] Patient Name: MADDIE RAMAN MRN: [id number] date: 1995 Sex: F Assigned Patient Location: [facility] Current Patient Location: [facility] Accession/Order Number: [id number] Exam Date: 11/24/2024 16:17 Report Date: 11/24/2024 16:18 At the request of: ARMINDA WARNER DO Procedure: US OB BPP w non-stress Ultrasound biophysical profile HISTORY: History of gastric sleeve Adequate breathing movement, gross body movement, tone and amniotic fluid volume for total score of 8 out of 8. The amniotic fluidindex is 14.7cm within normal limits. The heart rate 167 bpm. US/US OB BPP w non-stress IMPRESSION: Adequate ultrasound biophysical profile Impression dictated by: Anthony Diaz M.D. 11/24/2024 4:18 PM Dictation Location: [place] [address] Electronically authenticated by: [id number] Y Date: 6:18 Dictated By: Anthony Diaz D.O. Signed By:11/24/24 1620 DD/ 1618 TD/TT: Preschool Director: us Arminda Warner DO [facility] Final Result documented in this encounter Visit Diagnoses Not on filedocumented in this encounter
--- OUTSIDE RECORDS SUMMARY | 2024-11-28 15:34 | XMS_ITS | Encounter Summary ---
Author Organization [facility] Address [address] [place] [address] Care Team Providers Care Special Delivery Carrier Name Role Phone Unavailable Primary Care Provider Unavailabl e Encounter Details Date Type Department Care Team (Late st Contact Info) Description 09/22/2024 Abstract [facility] [place] [facility] OB [address] [place] [phone] Cedric Warner, DO [address] [facility] [address] [place], [place] [address] Social History Tobacco Use Types Packs/Day Years [...]
--- OUTSIDE RECORDS SUMMARY | 2024-11-28 15:34 | XMS_ITS | Encounter Summary ---
Author Organization [facility] Address [address] [place] [address] Care Team Providers Care Investment Consultant Name Role Phone Unavailable Primary Care Provider Unavailabl e Encounter Details Date Type Department Care Team (Late st Contact Info) Description 06/06/2024 Abstract [facility] OB [address] [place] [address] Cedric Warner, DO [address] [facility] [address] [place], [place] [address] Social History Tobacco Use Types Packs/Day Years [...]
--- OUTSIDE RECORDS SUMMARY | 2024-11-28 15:34 | XMS_ITS | Encounter Summary ---
Author Organization [facility] Address [id number] [address] [place] [address] Care Team Providers Care Research Food Technologist Name Role Phone KiaraAlly stevenson SHALE MINER-PACKAGE DYE STAND LOADER Primary Care Provi collin Reason for Visit * Reason Onset Date Comments Med Refill 11/20/2021 Encounter Details Date Type Department Care Team (Late st Contact Info) Description 11/20/2021 Refill [facility]-B[facility] [address] [facility] [address] [place] [address] Evelyn Flower CMA Social History [...] Author D/C Home General Yes Yaneth Bright APRN-PACKAGE DYE STAND LOADER Note: Evaluation of progress towards goal: Pt plans to d/c home with self care and family support. documented as of this encounter Visit Diagnoses Not on filedocumented in this encounter Additional Health Concerns Assessment Noted Time PHQ-9 Depression Total Score: 0 04/01/20 21 11:14 AM EDT documented as of this encounter Care Teams Research Food Technologist Relationship Specialty Start Date End Date Ally Craig, SHALE MINER-PACKAGE DYE STAND LOADER [address], [place] [address] PCP - General Family Medicine 04/12/18 documented as of this encounter
--- OUTSIDE RECORDS SUMMARY | 2024-11-28 15:34 | XMS_ITS | Clinical Summary ---
Author Organization [facility] tem Address [id number] [address] [place] [address] Care Team Providers Care Manager Pet Name Role Phone Ally Craig SENIOR SUSTAINABILITY ADVISOR-PROPOSITION PLAYER Primary Care Provi collin Allergies Active Allergy Reactions Criticality Noted Date Comments [place] Extract Anaphylaxis High 02/01/2019 Medications * This [...] (10/05/2017): Added automatically from request for surgery [id number] SVT (supraventricular tachycardia) 09/26/2017 10/01/2020 Encounters Date Type Department Care Team Description 11/15/2024 Refill Maternal- Medicine at [facility] [address] [place] [address] Erlin Chung MD History of sleeve gastrectomy 11/06/2024 12:00 PM EDT Office Visit Maternal- Medicine at [facility] [address] [place] [address] Erlin Chung MD History of sleeve gastrectomy (Primary Dx) 11/06/2024 10:39 AM EDT - 11/06/2024 11:59 PM EDT Hospital Encounter [facility] - [facility] US Imaging [address] [place] [address] History of sleeve gastrectomy; Hx of supraventricular tachycardia; Encounter for follow-up ultrasound of anatomy; Encounter for anatomic survey Discharge Disposition: Home 11/06/2024 Travel 10/20/2024 8:45 AM EDT Telemedicine Maternal- Medicine at [facility] [address] [place] [address] Erlin Chung MD History of sleeve gastrectomy (Primary Dx); Hx of supraventricular tachycardia 10/20/2024 Travel 10/05/2024 9:00 AM EDT Ancillary Procedure [facility] [address] [place] [phone] Hx of supraventricular tachycardia 10/05/2024 8:30 AM EDT Office Visit [facility] [address] [place] [phone] Ole Rojas MD Hx of supraventricular tachycardia (Primary Dx) 10/05/2024 Travel 09/29/2024 Orders Only Maternal- Medicine at [facility] [address] [place] [address] Triny Morales RN History of sleeve gastrectomy (Primary Dx); Hx of supraventricular tachycardia; Encounter for follow-up ultrasound of anatomy; Encounter for anatomic survey 09/28/2024 2:22 PM EDT - 09/28/2024 11:59 PM EDT Hospital Encounter [facility] - [facility] US Imaging [address] [place] [address] History of sleeve gastrectomy; Hx of supraventricular tachycardia; Encounter for follow-up ultrasound of anatomy Discharge Disposition: Home 09/28/2024 Travel from Last 3 Months Immunizations Immunization [...] Author D/C Home General Yes Yan[place] Bright, SENIOR SUSTAINABILITY ADVISOR-PROPOSITION PLAYER Note: Evaluation of progress towards goal: Pt plans to d/c home with self care and family support. Medical Devices Implanted Type Area Financial Supervisor Device Identifier Shelf Expiration Date Model / [...] Routine 10/05/2024 Hx of supraventricular tachycardia US [facility] OB FOLLOW-UP, 1 FETUS Routine 09/28/2024 4:34 PM EDT History of sleeve gastrectomy Hx of supraventricular tachycardia Encounter for follow-up ultrasound of anatomy from Last 3 Months Results * US [facility] OB FOLLOW-UP, 1 FETUS (11/06/2024 1:37 PM EDT) Only the most recent of2 resultswithin the time period is included. Anatomical Region Laterality Modality OB-REAL ESTATE OFFICER Ultrasound 11/06/2024 11:3 9 AM EDT Narrative 11/06/2024 3:01 PM EDT NAME: CECI PERKINS : 1995 SEX: F Accession Number: [id number] ORDERING PHYSICIAN: LUIS ANGEL NGUYEN REFERRING PHYSICIAN: ARMINDA WHITE Coding ----- --------- Procedures 77327: Follow-up Ultrasound, per fetus Indication ----- --------- Obesity in , Previous , Previous bariatric surgery, Screening for follow-up survey History ----- --------- OB History 7. Para 1 [id number] Maternal Assessment ----- --------- Physical Exam Height [...] EFW (oz) 15 oz EFW by: Hadlock ([id number]-ZB-JL-FL) Extended Tibia 56.0 mm 32w 6d 26% Jody Sawmill Production Worker 3.4 mm CM 9.1 mm 87% Nicolaides [...] Thorax RVOT view. LVOT view. 3-vessel view. 2-giysvx-kpqllnw view. Situs. Aortic arch view. Bicaval view. [...] PERKINS : 1995 SEX: F Accession Number: [id number] ORDERING PHYSICIAN: LUIS ANGEL NGUYEN REFERRING PHYSICIAN: ARMINDA WHITE Coding ----- --------- Procedures 07868: Follow-up Ultrasound, per fetus Indication ----- --------- Obesity in , Previous , Previous bariatric surgery,Screening for follow-up survey History ----- --------- OB History 7. Para 1 [id number] Maternal Assessment ----- --------- Physical Exam Height [...] EFW (oz) 15 oz EFW by: Hadlock (PQQ-FY-MU-FL) Extended Tibia 56.0 mm 32w 6d 26% Jody Sawmill Production Worker 3.4 mm CM 9.1 mm 87% Nicolaides [...] Thorax RVOT view. LVOT view. 3-vessel view. 2-jzuvdg-duzgnyh view.Situs. Aortic arch view. Bicaval view. Interventricular [...] 5.1 cm. Recommendations ----- --------- Please see [facility] documentation from today. anatomic survey is incomplete due to late gestational age andsuboptimal visualization. Subsequent follow up or other follow up as clinically determined byprimary OB provider unless otherwise specified by [facility]. Results forwarded to ordering provider so [...] TRANSCRIBED RESULTS from Last 3 Months Insurance MEDICAID [facility] [facility] MEDICAID Advance Directives * Full Code (Latest Code Status on File) Date Activated Date Inactivated Comments 11/10/2021 9:36 AM 11/11/2021 5:57 PM * Full Code Date Activated Date Inactivated Comments 04/24/2019 2:41 PM 04/27/2019 6:16 PM * Full Code Date Activated Date Inactivated Comments 09/26/2017 4:13 AM 10/03/2017 1:52 PM Care Teams Manager Pet Relationship Specialty Start Date End Date Ally Craig, RAFA-FALGUNI [address], [place] [address] PCP - General Family Medicine 04/12/18
--- OUTSIDE RECORDS SUMMARY | 2024-11-28 15:34 | XMS_ITS | Encounter Summary ---
Author Organization [facility] Address [address] [place] [address] Care Team Providers Care Ostrich Farmer Name Role Phone Unavailable Primary Care Provider Unavailabl e Encounter Details Date Type Department Care Team (Late st Contact Info) Description 06/27/2024 Abstract [facility] OB [address] [place] [address] Felicita Wyatt LPN Social History Tobacco Use [...]
--- OUTSIDE RECORDS SUMMARY | 2024-11-28 15:34 | XMS_ITS | Encounter Summary ---
Author Organization [facility] Address [address] [place] [address] Care Team Providers Care Electric Sealing Machine Operator Name Role Phone Unavailable Primary Care Provider Unavailabl e Encounter Details Date Type Department Care Team (Late st Contact Info) Description 05/13/2024 Clinisync Result Encounter [facility] External Department Unsolicited Arminda Warner, DO [address] [facility] [address] Social History Tobacco Use Types [...] EST Narrative 05/13/2024 9:02 AM EST The [address] [address] Ultrasound Report Signed Patient: MADDIE RAMAN MR#: [id number] : 1995 Acct:[id number] Age/Sex: 28 / F ADM Date: 05/13/24 Loc: US Attending Dr: Arminda Warner D.O. Ordering Physician: Arminda Warner D.O. Date of Service: 05/13/24 Procedure(s): US OB transvaginal Accession Number(s): [id number] cc: Arminda Warner D.O.; Ally Craig NP The [place] [address] Patient Name: MADDIE RAMAN MRN: [id number] date: 1995 Sex: F Assigned Patient Location: US Current Patient Location: US Accession/Order Number: [id number] Exam Date: 05/13/2024 08:04 Report Date: 05/13/2024 [...] Signed By: 05/13/24 0902 DD/ 0859 TD/TT: Research Interviewer: Procedure Note Radiology, Radiologist, MD - 05/13/2024 [place] [address] Ultrasound Report Signed Patient: MADDEI RAMAN CMR#: [id number] : 1995Acct:[id number] Age/Sex: 28 / FADM Date: 05/13/24 Loc: US Attending Dr: Arminda Warner D.O. Ordering Physician: Arminda Warner D.O. Date of Service: 05/13/24 Procedure(s): US OB transvaginal Accession Number(s): [id number] cc: Arminda Warner D.O.; Ally Craig NP [place] [id number] Patient Name: MADDIE RAMAN MRN: [id number] date: 1995 Sex: F Assigned Patient Location: US Current Patient Location: US Accession/Order Number: [id number] Exam Date: 05/13/2024 08:04 Report Date: 05/13/2024 [...] Arcadio Nevarez M.D. Signed By:05/13/24901 DD/ TD/TT: Research Interviewer: us Arminda Warner DO [facility] Final Result documented in this encounter Visit Diagnoses Not on filedocumented in this encounter
--- OUTSIDE RECORDS SUMMARY | 2024-11-28 15:34 | XMS_ITS | Encounter Summary ---
Author Organization [facility] Address [address] [place] [address] Care Team Providers Care Tow Feeder Name Role Phone Unavailable Primary Care Provider Unavailabl e Encounter Details Date Type Department Care Team (Late st Contact Info) Description 11/27/2024 Abstract [facility] [address] [facility] [place] [address] Celsa Coats MA Social History Tobacco Use [...]
--- OUTSIDE RECORDS SUMMARY | 2024-11-28 15:34 | XMS_ITS | Patient Health Record ---
Author Organization [facility] Address [address] [place] [address] Care Team Providers Care Integration Architect Name Role Phone Pascale Mcmahon Unavailable [phone] Reason For Referral No Information Plan Of Treatment No Information Insurance Providers Payer Name Payer Address Payer Phone Subscriber Number Group Number Insured Name Patient Relationship to Insured Coverage Start Date Coverage End Date Medicaid [employer] [place] [address] [place] [phone] [id number] MADDIE ORNELAS Self - patient is the insured
--- OUTSIDE RECORDS SUMMARY | 2024-11-28 15:34 | XMS_ITS | Clinical Summary ---
Author Organization [facility] Address [address] [place] [address] Care Team Providers Care Instrument Lens Generator Name Role Phone Unavailable Primary Care Provider [...] Encounters Date Type Department Care Team Description 11/27/2024 Abstract [facility] OB [address] [place] [address] [place] [phone] Celsa Coats MA 11/24/2024 Clinisync Result Encounter NOMS External Department Unsolicited Arminda Warner, DO 11/22/2024 9:50 AM EDT Routine [facility] B[facility] OB [address] [place] [address] Zoraida Travis PA Nonintractable headache, unspecified chronicity pattern, unspecified headache type (Primary Dx); Third trimester ; 36 weeks gestation of 11/22/2024 Bamboo flowsheet [facility] BCP OB [address] [facility] [place] [address] Zoraida Travis PA 11/21/2024 Clinisync Result Encounter NOMS External Department Unsolicited Arminda Warner, DO 11/17/2024 Clinisync Result Encounter NOMS External Department Unsolicited Arminda Warner, DO 11/14/2024 1:50 PM EDT Routine [facility] BCP OB [address] [facility] [place] [address] Arminda Warner, DO 35 weeks gestation of ; Third trimester 11/14/2024 Bamboo flowsheet [facility] B[facility] OB [address] [place] [address] Arminda Warner, DO 11/10/2024 Clinisync Result Encounter NOMS External Department Unsolicited Arminda Warner, DO 11/09/2024 9:50 AM EDT Routine [facility] B[facility] OB [address] [place] [address] Zoraida Travis PA 35 weeks gestation of ; Third trimester 11/09/2024 Bamboo flowsheet [facility] BCP OB [address] [place] [address] Zoraida Travis PA 11/08/2024 Abstract [facility] OB [address] [facility] [address] Arminda Warner, DO 11/03/2024 Clinisync Result Encounter NOMS External Department Unsolicited Arminda Warner, DO 11/03/2024 Telephone [facility] B[facility] OB [address] [facility] [place] [address] Celsa Coats MA 11/02/2024 Refill [facility] OB [address] [facility] [place] [address] Zoraida Travis PA H/O gastric sleeve 10/30/2024 Clinisync Result Encounter NOMS External Department Unsolicited Arminda Warner, 10/25/2024 2:20 PM EDT Routine [facility] BCP OB [address] [facility] [place] [address] Arminda Warner, Third trimester ; 32 weeks gestation of ; H/O gastric sleeve 10/25/2024 Bamboo flowsheet [facility]CP OB [address] [facility] [address] Arminda Warner, 10/11/2024 9:40 AM EDT Routine [facility] BCP OB [address] [place] [address] [place] [address] Frances Pena, MOLINA Third trimester ; 30 weeks gestation of 10/11/2024 Bamboo flowsheet [facility] OB [address] [place] [address] [place] [address] Frances Pena, MOLINA 09/26/2024 9:50 AM EDT Routine [facility] OB [address] [place] [address] [place] [address] Arminda Warner, Third trimester ; 28 weeks gestation of 09/26/2024 Bamboo flowsheet [facility] OB [address] [place] [address] [place] [address] Arminda Warner, 09/22/2024 Abstract [facility] BCP OB [address] [facility] [address] Arminda Warner, 09/09/2024 Clinisync Result Encounter NOMS External Department Unsolicited Zoraida Travis PA 08/29/2024 8:30 AM EDT Routine [facility] BCP OB [address] [facility] [address] Zoraida Travis PA 25 weeks gestation of ; Second trimester ; Diabetes mellitus screening 08/29/2024 Bamboo flowsheet [facility] BCP OB [address] [facility] [address] Zoraida Travis PA from Last 3 Months Family History * [...] BPP W NON-STRESS 11/24/2024 4:18 PM EDT POCT URINALYSIS DIPSTICK Routine 11/22/2024 10:19 AM [...] EDT 25 weeks gestation of Second trimester from Last 3 Months Results * US OB BPP W NON-STRESS (11/24/2024 4:18 PM EDT) Only the most recent of5 resultswithin the time period is included. Anatomical Region Laterality Modality Other 11/24/2024 4:18 PM EDT Narrative 11/24/2024 4:20 PM EDT [address] [address] Ultrasound Report Signed Patient: MADDIE RAMAN MR#: [id number] : 1995 Acct:[id number] Age/Sex: 29 / F ADM Date: 11/24/24 Loc: [facility] 250-[address]: Arminda Warner D.O. Ordering Physician: rAminda Warner D.O. Date of Service: 11/24/24 Procedure(s): US OB BPP w non-stress Accession Number(s): [id number] cc: Arminda Warner D.O.; Ally Craig NP The [place] [address] Patient Name: MADDIE RAMAN MRN: [id number] date: 1995 Sex: F Assigned Patient Location: [facility] Current Patient Location: [facility] Accession/Order Number: [id number] Exam Date: 11/24/2024 16:17 Report Date: 11/24/2024 [...] Diaz M.D. 11/24/2024 4:18 PM Dictation Location: [place] [address] Electronically authenticated by: [id number] Y Date: 11/24/2024 16:18 Dictated By: Anthony Diaz D.O. Signed By: 11/24/241619 DD/ 17 TD/TT: Lawn Sprinkler Servicer: Procedure Note Radiology, Radiologist, - 11/24/2024 [place] [address] Ultrasound Report Signed Patient: MADDIE RAMAN CMR#: [id number] : 1995Acct:[id number] Age/Sex: 29 / FADM Date: 11/24/24 Loc: [facility] 250-[address]: Arminda Warner D.O. Ordering Physician: Arminda Warner D.O. Date of Service: 11/24/24 Procedure(s): US OB BPP w non-stress Accession Number(s): [id number] cc: Arminda Warner D.O.; Ally Craig NP [place] [address] Patient Name: MADDIE RAMAN MRN: [id number] date: 1995 Sex: F Assigned Patient Location: [facility] Current Patient Location: [facility] Accession/Order Number: [id number] Exam Date: 11/24/2024 16:17 Report Date: 11/24/2024 [...] Diaz M.D. 11/24/2024 4:18 PM Dictation Location: [place] [address] Electronically authenticated by: [id number] Y Date: 6:18 Dictated By: Anthony Diaz D.O. Signed By:11/24/24 1620 DD/ 1618 TD/TT: Lawn Sprinkler Servicer: Arminda Warner DO [facility] Final Result * (ABNORMAL) POCT urinalysis dipstick manually resulted (11/22/2024 10:19 AM EDT) Only the most recent of7 resultswithin the time period is included. Color, UA Yellow Clarity, UA Clear Glucose, UA Negative Negative - 1999(110) ++++ mg/dL Bilirubin, UA Positive Negative - [...] AM EDT Narrative 11/21/2024 9:06 [place] [address] Ultrasound Report Signed Patient: MADDIE RAMAN MR#: [id number] : 1995 Acct:[id number] Age/Sex: 29 / F ADM Date: 11/21/24 Loc: [facility] 250-[address]: Arminda Warner D.O. Ordering Physician: Arminda Warner D.O. Date of Service: 11/21/24 Procedure(s): US OB amniotic fluid vol Accession Number(s): [id number] cc: Arminda Warner D.O.; Ally Craig NP [address] [address] Patient Name: MADDIE RAMAN MRN: [id number] date: 1995 Sex: F Assigned Patient Location: [facility] Current Patient Location: Accession/Order Number: [id number] Exam Date: 11/21/2024 08:56 Report Date: 11/21/2024 [...] Jensen M.D. 11/21/2024 8:59 AM Dictation Location: [place] [address] Electronically authenticated by: [id number] Y Date: 11/21/2024 08:59 Dictated By: Smita Jensen M.D. Signed By: 11/21/24 0906 DD/ 0859 TD/TT: Lawn Sprinkler Servicer: Procedure Note Radiology, Radiologist, MD - 11/21/2024 [place] [address] Ultrasound Report Signed Patient: MADDIE RAMAN CMR#: [id number] : 1995Acct:[id number] Age/Sex: 29 / FADM Date: 11/21/24 Loc: [place] [address]-[address]: Arminda Warner D.O. Ordering Physician: Arminda Warner D.O. Date of Service: 11/21/24 Procedure(s): US OB amniotic fluid vol Accession Number(s): [id number] cc: Arminda Warner D.O.; Ally Craig NP The [place] [id number] Patient Name: MADDIE RAMAN MRN: [id number] date: 1995 Sex: F Assigned Patient Location: [facility] Current Patient Location: Accession/Order Number: [id number] Exam Date: 11/21/2024 08:56 Report Date: 11/21/2024 [...] Jensen M.D. 11/21/2024 8:59 AM Dictation Location: [place] [address] Electronically authenticated by: [id number] Y Date: 508:59 Dictated By: Smita Jensen M.D. Signed By:11/21/24 0906 DD/ 0859 TD/TT: Lawn Sprinkler Servicer: Arminda Warner DO IMG XR PROCEDURES Final Result * GLUCOSE 1 HOUR (09/09/2024 10:12 AM EDT) GLUCOSE 1 HOUR 98 <130 mg/dL TB[facility] 09/09/2024 10:1 2 AM EDT 09/09/2024 10:13 AM EDT Narrative [facility] - 09/09/2024 10:27 AM EDT Zoraida SEGOVIA LAB BLOOD ORDERABLES Final Resul t [facility] TB * (ABNORMAL) ALL CBC WITH AUTO DIFF [...] 09/09/2024 10:28 AM EDT us Zoraida SEGOVIA [facility] Final Result [facility] from Last 3 Months Insurance [employer] MEDICAID
--- OUTSIDE RECORDS SUMMARY | 2024-11-28 15:34 | XMS_ITS | Encounter Summary ---
Author Organization [facility] tem Address [facility] [place]-[id number] [address] [place] [address] Care Team Providers Care Cloth Shrinking Supervisor Name Role Phone Ally Craig MUSIC LEADER-CRAFT DEMONSTRATOR Primary Care Provi collin Encounter Details Date Type Department Care Team (Late st Contact Info) Description 03/27/2021 Telephone [facility] [address] [place] [address] [place] [address] Ally Craig, MUSIC LEADER-CRAFT DEMONSTRATOR [address] [facility] B, [place] [address] Social History Tobacco Use Types [...] documented as of this encounter Care Teams Cloth Shrinking Supervisor Relationship Specialty Start Date End Date Ally Craig APRN-CNP [address], [place] [address] PCP - General Family Medicine 04/12/18 documented as of this encounter
--- OUTSIDE RECORDS SUMMARY | 2024-11-28 15:34 | XMS_ITS | Encounter Summary ---
Author Organization [facility] tem Address [facility]-[id number] [address] [place] [address] Care Team Providers Care Principle Industrial Hygienist Name Role Phone Ally Craig MODEL ARTISTS'-BOOM PUMP OPERATOR Primary Care Provi collin Reason for Visit * Reason Comments Med Change Request Encounter Details Date Type Department Care Team (Late st Contact Info) Description 11/15/2024 Refill Maternal- Medicine at [facility] [address] [place] [address] Erlin Chung MD [address] [facility] [address] [place] [address] History of sleeve gastrectomy Social History Tobacco [...] Author D/C Home General Yes Yaneth Bright, MODEL ARTISTS'-BOOM PUMP OPERATOR Note: Evaluation of progress towards goal: Pt plans to d/c home with self care and family support. documented as of this encounter Visit Diagnoses Diagnosis History of sleeve gastrectomy documented in this encounter Additional Health Concerns Assessment Noted Time PHQ-9 Depression Total Score: 19 023 10:14 AM EDT documented as of this encounter Care Teams Principle Industrial Hygienist Relationship Specialty Start Date End Date Ally Craig, MODEL ARTISTS'-BOOM PUMP OPERATOR [address], [place] [address] PCP - General Family Medicine 04/12/18 documented as of this encounter
--- OUTSIDE RECORDS SUMMARY | 2024-11-28 15:34 | XMS_ITS | Encounter Summary ---
Author Organization [facility] tem Address [facility]-[id number] [address] [place] [address] Care Team Providers Care Education Department Chair Name Role Phone Ally Craig ADJUSTER PIANO ACTION-SURGICAL DRESSING MAKER Primary Care Provi collin Encounter Details Date Type Department Care Team (Late st Contact Info) Description 08/24/2024 Orders Only Maternal- Medicine at [facility] [address] [place] [address] Zoraida Butcher LPN Social History Tobacco Use [...] Author D/C Home General Yes Yaneth Bright APRN-SURGICAL DRESSING MAKER Note: Evaluation of progress towards goal: Pt plans to d/c home with self care and family support. documented as of this encounter Visit Diagnoses Not on filedocumented in this encounter Additional Health Concerns Assessment Noted Time PHQ-9 Depression Total Score: 19 023 10:14 AM EDT documented as of this encounter Care Teams Education Department Chair Relationship Specialty Start Date End Date Ally Craig, RAFA-SURGICAL DRESSING MAKER [address], [place] [address] PCP - General Family Medicine 04/12/18 documented as of this encounter
--- OUTSIDE RECORDS SUMMARY | 2024-11-28 15:34 | XMS_ITS | Encounter Summary ---
Author Organization [facility] Address [address] [place] [address] Care Team Providers Care Host/Hostess Head Name Role Phone Unavailable Primary Care Provider Unavailabl e Encounter Details Date Type Department Care Team (Late st Contact Info) Description 08/17/2024 Orders Only [facility] OB [address] [facility] [place] [address] Elena Constantino DC [address] [place] [address] Social History Tobacco Use Types Packs/Day Years [...]
--- OUTSIDE RECORDS SUMMARY | 2024-11-28 15:34 | XMS_ITS | Encounter Summary ---
Author Organization [employer] [facility] tem Address [facility]-[id number] [address] [place] [address] Care Team Providers Care Line Erector Name Role Phone Ally Craig PLUMBING SERVICE TECHNICIAN-BODY BUILDER APPRENTICE Primary Care Provi collin Encounter Details Date Type Department Care Team (Late st Contact Info) Description 07/23/2022 [facility] [address] [place] [address] [place] [address] Gi Motley CMA Social History [...] Author D/C Home General Yes Yaneth Bright, PLUMBING SERVICE TECHNICIAN-BODY BUILDER APPRENTICE Note: Evaluation of progress towards goal: Pt plans to d/c home with self care and family support. documented as of this encounter Visit Diagnoses Not on filedocumented in this encounter Additional Health Concerns Assessment Noted Time PHQ-9 Depression Total Score: 0 04/01/20 21 11:14 AM EDT documented as of this encounter Care Teams Line Erector Relationship Specialty Start Date End Date Ally Craig, PLUMBING SERVICE TECHNICIAN-BODY BUILDER APPRENTICE [address], [place] [address] PCP - General Family Medicine 04/12/18 documented as of this encounter
--- OUTSIDE RECORDS SUMMARY | 2024-11-28 15:34 | XMS_ITS | Encounter Summary ---
Author Organization [facility] Address [address] [place] [address] Care Team Providers Care Hat Cleaner Name Role Phone Unavailable Primary Care Provider Unavailabl e Encounter Details Date Type Department Care Team (Late st Contact Info) Description 07/31/2024 Abstract [facility] OB [address] [place] [address] Cedric Warner, DO [address] [facility] [address], [place] [address] Social History Tobacco Use Types Packs/Day Years [...]
--- OUTSIDE RECORDS SUMMARY | 2024-11-28 15:34 | XMS_ITS | Encounter Summary ---
Author Organization [facility] tem Address [facility]-[id number] [address] [place] [address] Care Team Providers Care Monitoring Engineer Name Role Phone Ally Craig NEEDLE MAKER-NURSING HOME ADMINISTRATOR Primary Care Provi collin Encounter Details Date Type Department Care Team (Late st Contact Info) Description 06/08/2022 Orders Only [facility] [address] [place] [address] [place] [address] External, Scanning Provider Social History [...] Author D/C Home General Yes Yaneth Bright, NEEDLE MAKER-NURSING HOME ADMINISTRATOR Note: Evaluation of progress towards goal: Pt [...] documented as of this encounter Care Teams Monitoring Engineer Relationship Specialty Start Date End Date Ally Craig, RAFA-NURSING HOME ADMINISTRATOR [address], [place] [address] PCP - General Family Medicine 04/12/18 documented as of this encounter
--- OUTSIDE RECORDS SUMMARY | 2024-11-28 15:34 | XMS_ITS | Clinical Summary ---
Author Organization [facility] Address [address] [place] [address] Care Team Providers Care Inspector Wire Rope Name Role Phone Ally Craig APRN - CORN CROP SUPERVISOR Primary Care Pro vider Allergies Active Allergy Reactions Criticality Noted Date Comments [place] Extract Anaphylaxis High 02/01/2019 Medications vitamin D (ERGOCALCIFEROL ) 58833 units CAPS capsule Take 1 capsule by [...] this topic Medical Devices Implanted Type Area Certified Technician Specialist Device Identifier Shelf Expiration Date Model / Serial / Lot Plate Recon 3.5mm Low Prof 6h Implanted:Qty : 1 on 02/08/2019 by Ernesto Levine DO at [facility] Screw/Pl ate/Nail /Blane Right: Acetabulum SYNTHES-PMM [id number] / / Screw Cortx Slftp Fthrd 3.5x32mm Implanted:Qty : 1 on 02/08/2019 by Ernesto Levine DO at [facility] Screw/Pl ate/Nail /Blane Right: Acetabulum SYNTHES-PMM [id number] / / Screw Cortx Slftp Fthrd 3.5x34mm Implanted:Qty : 1 on 02/08/2019 by Ernesto Levine DO at [facility] Screw/Pl ate/Nail /Blane Right: Acetabulum SYNTHES-PMM [id number] / / Screw Cortx Slftp Fthrd 3.5x40mm Implanted:Qty : 1 on 02/08/2019 by Ernesto Levine DO at [facility] Screw/Pl ate/Nail /Blane Right: Acetabulum SYNTHES-PMM [id number] / / Screw Cortx Fthrd Slftp Ss 3.5x80mm Implanted:Qty : 1 on 02/08/2019 by Ernesto Levine DO at [facility] Screw/Pl ate/Nail /Blane Right: Acetabulum SYNTHES-PMM [id number] / / Explanted Type Area Certified Technician Specialist Device Identifier Shelf Expiration Date Model / Serial / Lot Pin Explanted:Qty: 1 on 02/08/2019 at [facility] Description:thrown in sharps container [place] Retentioner Explanted:Qty: 1 on 02/08/2019 at [facility] Description:recyled Insurance [facility] [place] [address] [place] GENER[place]O [place] [address] [facility] GENERIC AUTO INSURANCE GENERIC AUTO INSURANCE [facility] [place] GENERIC AUTO [...] 4:31 AM 02/15/2019 1:50 PM Care Teams Inspector Wire Rope Relationship Specialty Start Date End Date Ally Craig, EVENT SALES MANAGER - CORN CROP SUPERVISOR [address] [place] [address] PCP - General Nurse Practitioner 01/31/19
--- OUTSIDE RECORDS SUMMARY | 2024-11-28 15:34 | XMS_ITS | Encounter Summary ---
Author Organization [facility] Address [address] [place] [address] Care Team Providers Care Dramatic Critic Name Role Phone Unavailable Primary Care Provider Unavailabl e Encounter Details Date Type Department Care Team (Late st Contact Info) Description 06/15/2024 Abstract [facility] OB [address] [place] [address] Cedric Warner, DO [address] [facility] [address], [place] [address] Social History Tobacco Use Types Packs/Day Years [...]
--- OUTSIDE RECORDS SUMMARY | 2024-11-28 15:34 | XMS_ITS | Encounter Summary ---
Author Organization [facility] tem Address [facility]-[id number] [address] [place] [address] Care Team Providers Care Stone Polisher Name Role Phone KiaraAlly stevenson WHOLESALE MANAGER-INSTRUCTIONAL INTERVENTIONIST Primary Care Provi collin Encounter Details Date Type Department Care Team (Late st Contact Info) Description 08/14/2024 Orders Only Maternal- Medicine at [facility] [address] [place] [address] Cedric Warner R, DO [address] [facility] [place] [address] Social History Tobacco Use Types Packs/Day Years [...] Author D/C Home General Yes Yaneth Bright, WHOLESALE MANAGER-INSTRUCTIONAL INTERVENTIONIST Note: Evaluation of progress towards goal: Pt [...] as of this encounter Care Teams Stone Polisher Relationship Specialty Start Date End Date Ally Craig, WHOLESALE MANAGER-INSTRUCTIONAL INTERVENTIONIST [address], [place] [address] PCP - General Family Medicine 04/12/18 documented as of this encounter
--- OUTSIDE RECORDS SUMMARY | 2024-11-28 15:35 | XMS_ITS | Encounter Summary ---
Author Organization [facility] tem Address [facility]-[id number] [address] [place] [address] Care Team Providers Care Consolidator Name Role Phone KiaraAlly stevenson BOARD TURNER-UNION ORGANIZER Primary Care Provi collin Encounter Details Date Type Department Care Team (Late st Contact Info) Description 10/09/2020 [facility]phone [facility] [address] [place] [address] [place] [address] Yong Veliz CMA Social History [...] Author D/C Home General Yes Yaneth Bright, BOARD TURNER-UNION ORGANIZER Note: Evaluation of progress towards goal: Pt [...] documented as of this encounter Care Teams Consolidator Relationship Specialty Start Date End Date Ally Craig, BOARD TURNER-UNION ORGANIZER [address], [place] [address] PCP - General Family Medicine 04/12/18 documented as of this encounter
--- OUTSIDE RECORDS SUMMARY | 2024-11-28 15:35 | XMS_ITS | Encounter Summary ---
Author Organization [employer] [facility] tem Address [facility]-[id number] [address] [place] [address] Care Team Providers Care Sweet Pickle Maker Name Role Phone Ally Craig APRN-AUDITOR Primary Care Provi collin Reason for Visit * Reason Onset Date Comments Med Refill 04/30/2020 Encounter Details Date Type Department Care Team (Late st Contact Info) Description 04/30/2020 Telephone [facility] [address] [place] [address] [place] [address] Nataly Caballero CMA Med Refill [...] Author D/C Home General Yes Yaneth Bright, APPROVER-AUDITOR Note: Evaluation of progress towards goal: Pt [...] documented as of this encounter Care Teams Sweet Pickle Maker Relationship Specialty Start Date End Date Ally Craig, RAFA-AUDITOR [address], [place] [address] PCP - General Family Medicine 04/12/18 documented as of this encounter
--- OUTSIDE RECORDS SUMMARY | 2024-11-28 15:35 | XMS_ITS | Encounter Summary ---
Author Organization [facility] tem Address [facility][id number] [address] [place] [address] Care Team Providers Care Veneer Stock Grader Name Role Phone KiaraAlly stevenson SURGERY ASSISTANT-CARGO AND RAMP SERVICES MANAGER Primary Care Provi collin Encounter Details Date Type Department Care Team (Late st Contact Info) Description 11/06/2020 [facility]phone [facility] [address] [place] [address] [place] [address] Yong Veliz CMA Social History [...] documented as of this encounter Care Teams Veneer Stock Grader Relationship Specialty Start Date End Date Ally Craig APRN-CNP [address], [place] [address] PCP - General Family Medicine 04/12/18 documented as of this encounter
[2024-11-28 15:44] VITALS: BP 104/58; PULSE 90
== END 2024-11-28 16:30 | disposition home or self-care (01) ==
LOC: FBCO 15:31 → FBC 15:36
PROVIDERS: PCP Nurse Practitioner; Visit Provider Obstetrics & Gynecology
DX: O26.893 Other specified pregnancy related conditions, third trimester (principal); O99.843 Bariatric surgery status complicating pregnancy, third trimester; Z3A.37 37 weeks gestation of pregnancy
CPT/HCPCS: 59025

== ENCOUNTER 2024-11-30 05:33 | Inpatient (IN) | payer OTHER, SELFPAY ==
--- OUTSIDE RECORDS SUMMARY | 2023-09-30 06:30 | XMS_ITS ---
Author Organization [facility] vices Address [address] [place], [place] [id number] Care Team Providers Care Forest Fire Prevention Specialist Name Role Phone Kelli Hyde Unavailable [phone] Dionne Grande Unavailable [phone] REASON FOR VISIT 2 week f/u Medications Medication SIG (Take, Route, Frequency, Duration) Notes Start Date End Date Status traZODone HCl 100 MG 0.5- 1 tablet as needed at bed time Orally Once a day As needed 09/16/2023 Active ARIPiprazole 10 MG 1 tablet Orally bedtime Dose increase 09/16/23. 11/23/2022 Active busPIRone HCl 15 MG 1 tablet Orally Twice a day Take 1 tab upon awakening and 1 tab at 5-6 PM 11/23/2022 Active Sertraline HCl 50 MG 1 tablet Oral MORNING Active busPIRone HCl 5 MG 1 tablet Orally noon 02/05/2023 Not-Taking lamoTRIgine 25 MG 2 tablets by mouth in morning Dose increase 09/16/23. 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 Obtain ordered labs. 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 Obtain ordered labs. 09/30/2023 Anxiety with depression (ICD-10 - F41.8) Schedule wellness with PCP. Obtain ordered labs. Plan Of Treatment Medication Medication Name Sig Start Date Stop Date Notes traZODone HCl 100 MG 0.5- 1 tablet as needed at bed time Orally Once a day 09/16/2023 ARIPiprazole 10 MG 1 tablet Orally bedtime 11/23/2022 busPIRone HCl 15 MG 1 tablet Orally Twic e a day 11/23/2022 Take 1 tab upon awakening and 1 tab at 5-6 PM Sertraline HCl 50 MG 1 tablet Oral MORNING lamoTRIgine 25 MG 2 tablets by mouth i n morning Progress Notes * Jana RAMANDOB:1995 ( 29 yo F)Acc No.[id number]:09/30/2023 Patient: Sean SOTO Jana Provider: TANYA Centeno :1995 A ge:28 Y S ex:Female Date:09/30/2023 Address:[address] [place] [id number] Subjective: * Chief Complaints: * 1 . 2 week f/u. * Medical History: * Medications: T aking ARIPiprazole 10 MG Tablet 1 tablet Orally bedtime Dose increase 09/16/23., Taking lamoTRIgine 25 MG Tablet 2 tablets by mouth in morning Dose increase 09/16/23., Taking Sertraline HCl 50 MG Tablet 1 tablet Oral MORNING , Taking busPIRone HCl 15 MG Tablet 1 tablet Orally Twice a day , Notes to Pharmacist: Take 1 tab upon awakening and 1 tab at 5-6 PM, Taking traZODone HCl 100 MG Tablet 0.5- 1 tablet as needed at bed time Orally Once a day As needed, Not-Taking/PRN busPIRone HCl 5 MG Tablet 1 tablet Orally noon Objective: * Vitals: Assessment: * Assessment: 1. B ipolar disorder - F31.9 (Primary) N otes :needs improvement 2 . L jasmin term current use of antipsychotic medication - Z79.899 ?3. A nxiety with depression - F41.8 Schedule wellness with PCP. Obtain ordered labs. Plan: * Treatment: 2. A nxiety with depression Continue Sertraline HCl Tablet, 50 MG, 1 tablet, Oral, MORNING; C ontinue busPIRone HCl Tablet, 15 MG, 1 tablet, Orally, Twice a day, Notes to Pharmacist: Take 1 tab upon awakening and 1 tab at 5-6 PM; C ontinue traZODone HCl Tablet, 100 MG, 0.5- 1 tablet as needed at bed time, Orally, Once a day As needed. Care Plan: * Problems: * Billing Information: * Visit Code: 86584 Office Visit Est 10 -19 minutes. * Procedure Codes: Care Plan Details* * Electronic signature of TANYA Peters on 11/30/2024 at 05:37 AM EDT Sign off status: Pending * Provider: TANYA Centeno Date: 0 09/30/2023 Generated for Jc eason/William/Rony on: 0 11/30/2024 05:37 AM EDT
--- OUTSIDE RECORDS SUMMARY | 2024-01-07 05:00 | XMS_ITS ---
Author Organization [facility] Address [address] [place] [address] Care Team Providers Care Process Expert Name Role Phone Pascale Mcmahon Unavailable [phone] REASON FOR VISIT LUMBAR PAIN Encounters Encounter Location Date Provider Diagnosis [facility] Office [address] [place] [address] [place] [address] 01/07/[address] [facility]uelas Lumbar back pain M54.50 Assessments Encounter Date Diagnosis (ICD Code) Assessment Notes Treatment Notes Treatment Clinical Notes Section Notes 01/07/2024 Lumbar back pain (ICD-10 - M54.50) Plan Of Treatment Pending Test Test Name Order Date Lumbar spine 2v flex and ext - 28687 Progress Notes * RE CULLENCA CDOB:1995 (29 yo F)Acc No.[id number]:01/07/2024 Patient: MADDIE VEGA Provider: Edwardo García MD, PhD :1995 A ge:28 Y S ex:Female Date:01/07/2024 Address:[address] [place], [place] [id number] Subjective: * Chief Complaints: * 1 . LUMBAR PAIN. * Medical History: Objective: * Vitals: Assessment: * Assessment: 1. L umbar back pain - M54.50 (Primary) Plan: * Treatment: Forms: * Images: * Electronic signature of Selv on [facility] Jessenia MD, PHD on 11/30/2024 at 05:36 AM EDT Sign off status: Pending * Provider: Edwardo García MD, PhD Date: 01/07/2024 Generated for Printi ng/William/Lauraitting on: 0 11/30/2024 05:36 AM EDT
--- OUTSIDE RECORDS SUMMARY | 2024-11-20 04:00 | XMS_ITS ---
Author Organization [facility] vices Address [address], [place] [address] Care Team Providers Care Business Integration Analyst Name Role Phone Mary Ellen Kelli Unavailable [phone] REASON FOR VISIT Bi Polar disorder Social History Sex Assigned At : Social History Observation Description Sex Assigned At Female Encounters Encounter Location Date Provider Diagnosis Main [address] [place] [id number] 11/20/2024 Kelli Hyde Plan Of Treatment No Information Progress Notes * Jana RAMANDOB:1995 ( 29 yo F)Acc No.[id number]:11/20/2024 Patient: Jana VEGA Provider: TANYA Regalado :1995 A ge:29 Y S ex:Female Date:11/20/2024 Address:[address] [place], [place] [phone] Subjective: * Chief Complaints: * 1 . Bi Polar disorder. * Medical History: Objective: * Vitals: Assessment: Plan: * Treatment: Care Plan: * Problems: * Billing Information: * Visit Code: * Procedure Codes: Care Plan Details* * Electronic signature of TANYA Dixon on 11/30/2024 at 05:37 AM EDT Sign off status: Pending * Provider: TANYA Regalado Date: 11/20/2024 Generated for Jc ng/William/eTransmitting on: 11/30/2024 05:37 AM EDT
--- OUTSIDE RECORDS SUMMARY | 2024-11-22 04:30 | XMS_ITS ---
Author Organization [facility] vices Address [address], [place] [address] Care Team Providers Care Instrument Engineer Name Role Phone Mary Ellen Kelli Unavailable [phone] REASON FOR VISIT f/u Social History Sex Assigned At : Social History Observation Description Sex Assigned At Female Encounters Encounter Location Date Provider Diagnosis Main [address] [place] [id number] 11/22/2024 Kelli Hyde Plan Of Treatment No Information Progress Notes * Jana ORNELASDOB:1995 ( 29 yo F)Acc No.[id number]:11/22/2024 Patient: Jana VEGA Provider: TANYA Regalado :1995 A ge:29 Y S ex:Female Date:11/22/2024 Address:[address] [place], [place] [phone] Subjective: * Chief Complaints: * 1 . F/u. * Medical History: Objective: * Vitals: Assessment: Plan: * Treatment: Care Plan: * Problems: * Billing Information: * Visit Code: * Procedure Codes: Care Plan Details* * Electronic signature of TANYA Dixon on 11/30/2024 at 05:37 AM EDT Sign off status: Pending * Provider: TANYA Regalado Date: 11/22/2024 Generated for Chichoi ng/Fachrissyg/eTransmitting on: 11/30/2024 05:37 AM EDT
[2024-11-30] VITALS (27 sets, daily range): BP systolic 103–132; BP diastolic 54–87; PULSE 71–96; TEMP 36.1–36.9; O2SAT 95–99
--- OUTSIDE RECORDS SUMMARY | 2024-11-30 05:37 | XMS_ITS | Encounter Summary ---
Author Organization [facility] Address [address] [place] [address] Care Team Providers Care Lost And Found Clerk Name Role Phone Zoraida Travis Unavailable Encounter Details Date Type Department Care Team (Late st Contact Info) Description 08/24/2024 Abstract [facility] BCP OB [address] [place] [phone] Cedric Warner, [address] [facility] [address] Cheng Velasquez, [facility]11 Social History Tobacco Use Types Packs/Day [...] Diagnoses Not on filedocumented in this encounter Care Teams Lost And Found Clerk Relationship Specialty Start Date End Date Zoraida Travis PA [address] [place], [facility]11 PCP - Medical [place] [employer] 01/20/24 06/20/99 documented as of this encounter
--- OUTSIDE RECORDS SUMMARY | 2024-11-30 05:37 | XMS_ITS | Clinical Summary ---
Author Organization [facility] Address [address] [place] [address] Care Team Providers Care Vice President Education Name Role Phone Zoraida Travis Unavailable Allergies No known active allergies Medications busPIRone [...] Department Care Team Description 11/27/2024 Abstract [facility] OB [address] [facility] [place] [address] Celsa Coats MA 11/24/2024 Clinisync Result Encounter NOMS External Department Unsolicited Arminda Warner, DO 11/22/2024 9:50 AM EDT Routine [facility] BCP OB [address] [facility] [place] [address] Zoraida Travis PA Nonintractable headache, unspecified chronicity pattern, unspecified headache type (Primary Dx); Third trimester ([facility]); 36 weeks gestation of ([facility]) 11/22/2024 Bamboo flowsheet [facility] BCP OB [address] [facility] [place] [address] Zoraida Travis PA 11/21/2024 Clinisync Result Encounter NOMS External Department Unsolicited Arminda Warner, DO 11/17/2024 Clinisync Result Encounter NOMS External Department Unsolicited Arminda Warner, DO 11/14/2024 1:50 PM EDT Routine [facility] BCP OB [address] [facility] [place] [address] Arminda Warner, DO 35 weeks gestation of ([facility]); Third trimester ([facility]) 11/14/2024 Bamboo flowsheet [facility] OB [address] [place] [address] [place] [address] Arminda Warner, DO 11/10/2024 Clinisync Result Encounter NOMS External Department Unsolicited Arminda Warner, DO 11/09/2024 9:50 AM EDT Routine [facility] BCP OB [address] [facility] [place] [address] Zoraida Travis PA 35 weeks gestation of ([facility]); Third trimester ([facility]) 11/09/2024 Bamboo flowsheet [facility] OB [address] [place] [address] Zoraida Travis PA 11/08/2024 Abstract [facility] OB [address] [facility] [address] Arminda Warner, 11/03/2024 Clinisync Result Encounter NOMS External Department Unsolicited Arminda Warner, 11/03/[address] [place] [address] Celsa Coats MA 11/02/[address] [place] [address] Zoraida Travis PA H/O gastric sleeve 10/30/2024 Clinisync Result Encounter NOMS External Department Unsolicited Arminda Warner, 10/25/2024 2:20 PM EDT Routine NOMS [address] [place] [address] Arminda Warner, Third trimester ([facility]); 32 weeks gestation of ([facility]); H/O gastric sleeve 10/25/2024 Bamboo flowsheet NOM[facility] [address] [place] [address] Arminda Warner DO 10/11/2024 9:40 AM EDT Routine NOM[facility] [address] [place] [address] Frances Pena, MOLINA Third trimester ([facility]); 30 weeks gestation of ([facility]) 10/11/2024 Bamboo flowsheet NOM[facility] [address] [place] [address] Frances Pena NP 09/26/2024 9:50 AM EDT Routine [facility] OB [address] [place] [address] [place] [address] Arminda Warner, Third trimester ([facility]); 28 weeks gestation of ([facility]) 09/26/2024 Bamboo flowsheet [facility] OB [address] [place] [address] [place] [address] Arminda Warner DO 09/22/2024 Abstract [facility] OB [address] [place] [address] [place] [address] Alana Arminda, DO 09/09/2024 Clinisync Result Encounter NOMS External Department Unsolicited Zoraida Travis PA from Last 3 Months [...] Routine 11/22/2024 10:19 AM EDT Third trimester ([facility]) US AMNIOTIC FLUID VOLUME 11/21/2024 8:59 AM EDT US OB BPP W NON-STRESS 11/17/2024 3:46 PM EDT POCT URINALYSIS DIPSTICK Routine 11/14/2024 2:12 PM EDT 35 weeks gestation of ([facility]) Third trimester ([facility]) US OB BPP W NON-STRESS 11/10/2024 3:48 PM EDT POCT URINALYSIS DIPSTICK Routine 11/09/2024 10:11 AM EDT 35 weeks gestation of ([facility]) US OB BPP W NON-STRESS 11/03/2024 4:13 PM EDT US OB BPP W NON-STRESS 10/30/2024 9:28 AM EDT POCT URINALYSIS DIPSTICK Routine 10/25/2024 3:28 PM EDT Third trimester ([facility]) POCT URINALYSIS DIPSTICK Routine 10/11/2024 9:59 AM EDT Third trimester ([facility]) POCT URINALYSIS DIPSTICK Routine 09/26/2024 10:12 AM EDT Third trimester ([facility]) 28 weeks gestation of ([facility]) ALL CBC WITH AUTO DIFF Routine 09/09/2024 10:12 AM EDT GLUCOSE 1 HOUR Routine 09/09/2024 10:12 AM EDT from Last 3 Months Results * US OB BPP W NON-STRESS (11/24/2024 4:18 PM EDT) Only the most recent of5 resultswithin the time period is included. Anatomical Region Laterality Modality Other 11/24/2024 4:18 PM EDT Narrative 11/24/2024 4:20 [place] [address] Ultrasound Report Signed Patient: MADDIE RAMAN MR#: [id number] : 1995 Acct:[id number] Age/Sex: 29 / F ADM Date: 11/24/24 Loc: [facility] 250-[address]: Arminda Warner D.O. Ordering Physician: Arminda Warner D.O. Date of Service: 11/24/24 Procedure(s): US OB BPP w non-stress Accession Number(s): [id number] cc: Arminda Warner D.O.; Ally Craig NP [place] [address] Patient Name: MADDIE RAMAN MRN: [id number] date: 1995 Sex: F Assigned Patient Location: [facility] Current Patient Location: [facility] Accession/Order Number: [id number] Exam Date: 11/24/2024 16:17 Report Date: 11/24/2024 [...] Diaz M.D. 11/24/2024 4:18 PM Dictation Location: [place] [address] Electronically authenticated by: [id number] Y Date: 11/24/2024 16:18 Dictated By: Anthony Diaz D.O. Signed By: 11/24/24 1620 DD/ 1618 TD/TT: Churner: Procedure Note Radiology, Radiologist, - 11/24/2024 [place] [address] Ultrasound Report Signed Patient: MADDIE RAMAN CMR#: [id number] : 1995Acct:[id number] Age/Sex: 29 / FADM Date: 11/24/24 Loc: [place] [address]- Attending Dr: Arminda Warner D.O. Ordering Physician: Arminda Warner D.O. Date of Service: 11/24/24 Procedure(s): US OB BPP w non-stress Accession Number(s): [id number] cc: Arminda Warner D.O.; Ally Craig NP [place] [id number] Patient Name: MADDIE RAMAN MRN: [id number] date: 1995 Sex: F Assigned Patient Location: [facility] Current Patient Location: [facility] Accession/Order Number: [id number] Exam Date: 11/24/2024 16:17 Report Date: 11/24/2024 [...] Diaz M.D. 11/24/2024 4:18 PM Dictation Location: [place] [address] Electronically authenticated by: [id number] Y Date: 6:18 Dictated By: Anthony Diaz D.O. Signed By:11/24/24 1620 DD/ 1618 TD/TT: Churner: us Arminda Warner DO [facility] Final Result * (ABNORMAL) POCT urinalysis dipstick manually resulted (11/22/2024 10:19 AM EDT) Only the most recent of6 resultswithin [...] AM EDT Narrative 11/21/2024 9:06 [place] [address] Ultrasound Report Signed Patient: MADDIE RAMAN MR#: [id number] : 1995 Acct:[id number] Age/Sex: 29 / F ADM Date: 11/21/24 Loc: [place] [address]- Attending Dr: Arminda Warner D.O. Ordering Physician: Arminda Warner D.O. Date of Service: 11/21/24 Procedure(s): US OB amniotic fluid vol Accession Number(s): [id number] cc: Arminda Warner D.O.; Ally Craig NP [address] [address] Patient Name: MADDIE RAMAN MRN: [id number] date: 1995 Sex: F Assigned Patient Location: [facility] Current Patient Location: Accession/Order Number: [id number] Exam Date: 11/21/2024 08:56 Report Date: 11/21/2024 [...] Jensen M.D. 11/21/2024 8:59 AM Dictation Location: [place] [address] Electronically authenticated by: [id number] Y Date: 11/21/2024 08:59 Dictated By: Smita Jensen M.D. Signed By: 11/21/24905 DD/ TD/TT: Churner: Procedure Note Radiology, Radiologist, MD - 11/21/2024 [place] [address] Ultrasound Report Signed Patient: MADDIE RAMAN CMR#: [id number] : 1995Acct:[id number] Age/Sex: 29 FADM Date: 11/21/24 Loc: [place] [address]: Arminda Warner D.O. Ordering Physician: Arminda Warner D.O. Date of Service: 11/21/24 Procedure(s): US OB amniotic fluid vol Accession Number(s): [id number] cc: Arminda Warner D.O.; Ally Craig NP [place] [address] Patient Name: MADDIE RAMAN MRN: [id number] date: 1995 Sex: F Assigned Patient Location: [facility] Current Patient Location: Accession/Order Number: [id number] Exam Date: 11/21/2024 08:56 Report Date: 11/21/2024 [...] Jensen M.D. 11/21/2024 8:59 AM Dictation Location: [place] [address] Electronically authenticated by: [id number] Y Date: 508:59 Dictated By: Smita Jensen M.D. Signed By:11/21/2406 DD/ 0859 TD/TT: Churner: us Arminda Edmondo DO IMG XR PROCEDURES Final Result * GLUCOSE 1 HOUR (09/09/2024 10:12 AM EDT) GLUCOSE 1 HOUR 98 <130 mg/dL [facility] 09/09/2024 10:1 2 AM EDT 09/09/2024 10:13 AM EDT Narrative [facility] - 09/09/2024 10:27 AM EDT Zoraida SEGOVIA LAB BLOOD ORDERABLES Final Resul t [facility] * (ABNORMAL) ALL CBC WITH AUTO DIFF [...] Narrative [facility] - 09/09/2024 10:28 AM EDT Zoraida SEGOVIA [facility] Final Result [facility] from Last 3 Months Insurance [employer] Care Teams Vice President Education Relationship Specialty Start Date End Date Zoraida Travis PA [address] [facility] [place] [address] PCP - Medical [place] [employer] 01/20/24 06/20/99
--- OUTSIDE RECORDS SUMMARY | 2024-11-30 05:37 | XMS_ITS | Encounter Summary ---
Author Organization [facility] Address [id number] [address] [place] [address] Care Team Providers Care Senior Technical Business Analyst Name Role Phone KiaraAlly stevenson ENDOCRINOLOGY PHYSICIAN-SUPERVISOR [employer] Primary Care Provi collin Reason for Visit * Reason Onset Date Comments Med Refill 11/20/2021 Encounter Details Date Type Department Care Team (Late st Contact Info) Description 11/20/2021 Refill [facility] General Surgery-Bariatric [address] [facility] [place] [address] Evelyn Flower CMA Social History Tobacco Use [...] Author D/C Home General Yes Yaneth Bright APRN-SUPERVISOR [employer] Note: Evaluation of progress towards goal: Pt plans to d/c home with self care and family support. documented as of this encounter Visit Diagnoses Not on filedocumented in this encounter Additional Health Concerns Assessment Noted Time PHQ-9 Depression Total Score: 0 04/01/20 21 11:14 AM EDT documented as of this encounter Care Teams Senior Technical Business Analyst Relationship Specialty Start Date End Date Ally Craig, ENDOCRINOLOGY PHYSICIAN-SUPERVISOR [employer] [address], [place] [address] PCP - General Family Medicine 04/12/18 documented as of this encounter
--- OUTSIDE RECORDS SUMMARY | 2024-11-30 05:37 | XMS_ITS | Encounter Summary ---
Author Organization [facility] Address [address] [place] [address] Care Team Providers Care Personal Lines Agent Name Role Phone Zoraida Travis Unavailable Encounter Details Date Type Department Care Team (Late st Contact Info) Description 11/08/2024 Abstract [facility] OB [address] [facility] [place] [phone] Cedric Warner, [address] [place] [address] Velasquez, [facility]11 Social History Tobacco Use Types Packs/Day [...] on filedocumented in this encounter Care Teams Personal Lines Agent Relationship Specialty Start Date End Date Zoraida Travis PA [address] [place], [facility]11 PCP - Medical [place] Commercial 01/20/24 06/20/99 documented as of this encounter
--- OUTSIDE RECORDS SUMMARY | 2024-11-30 05:37 | XMS_ITS | Encounter Summary ---
Author Organization [facility] Address [facility] [id number] [address] [place] [address] Care Team Providers Care Gatekeeper Name Role Phone Ally Craig PHLEBOTOMY MANAGER-RRTS Primary Care Provi collin Encounter Details Date Type Department Care Team (Late st Contact Info) Description 06/08/2022 Orders Only [facility] Family Medicine [address] [place] [address] [address] [place] [address] External, Scanning Provider Social History [...] Author D/C Home General Yes Yaneth Bright, PHLEBOTOMY MANAGER-RRTS Note: Evaluation of progress towards goal: Pt [...] documented as of this encounter Care Teams Gatekeeper Relationship Specialty Start Date End Date Ally Craig, RAFA-RRTS [address], [place] [address] PCP - General Family Medicine 04/12/18 documented as of this encounter
--- OUTSIDE RECORDS SUMMARY | 2024-11-30 05:37 | XMS_ITS | Encounter Summary ---
Author Organization [facility] Address [address] [place] [address] Care Team Providers Care Aircraft Cabin Cleaner Name Role Phone Zoraida Travis Unavailable Encounter Details Date Type Department Care Team (Late st Contact Info) Description 11/24/2024 Clinisync Result Encounter N[facility]S External Department Unsolicited Arminda Warner, DO [address] [facility] [place] [address] Social History Tobacco Use Types [...] EDT Narrative 11/24/2024 4:20 PM EDT [facility] [address] [place] [address] Ultrasound Report Signed Patient: MADDIE ORNELAS MR#: [id number] : 1995 Acct:[id number] Age/Sex: 29 / F ADM Date: 11/24/24 Loc: [facility] 250-[address]: Arminda Warner D.O. Ordering Physician: Arminda Warner D.O. Date of Service: 11/24/24 Procedure(s): US OB BPP w non-stress Accession Number(s): [id number] cc: Arminda Warner D.O.; Ally Craig NP [place] [address] Patient Name: MADDIE ORNELAS MRN: [id number] date: 1995 Sex: F Assigned Patient Location: [facility] Current Patient Location: [facility] Accession/Order Number: [id number] Exam Date: 11/24/2024 16:17 Report Date: 11/24/2024 [...] 11/24/2024 4:18 PM Dictation Location: [place] [address] Electronically authenticated by: [id number] Y Date: 11/24/2024 16:18 Dictated By: Anthony Diaz D.O. Signed By: 11/24/24 1620 DD/ 1618 TD/TT: Machine Tool Operator: Procedure Note Radiology, Radiologist, MD - 11/24/2024 [place] [address] Ultrasound Report Signed Patient: MADDIE ORNELAS CMR#: [id number] : 1995Acct:[id number] Age/Sex: 29 / FADM Date: 11/24/24 Loc: [facility] 250-[address]: Arminda Warner D.O. Ordering Physician: Arminda Warner D.O. Date of Service: 11/24/24 Procedure(s): US OB BPP w non-stress Accession Number(s): [id number] cc: Arminda Warner D.O.; Ally Craig NP [address] [address] Patient Name: MADDIE ORNELAS MRN: [id number] date: 1995 Sex: F Assigned Patient Location: [facility] Current Patient Location: [facility] Accession/Order Number: [id number] Exam Date: 11/24/2024 16:17 Report Date: 11/24/2024 [...] 11/24/2024 4:18 PM Dictation Location: [place] [address] Electronically authenticated by: [id number] Y Date: 6:18 Dictated By: Anthony Diaz D.O. Signed By:11/24/24 1620 DD/ 1618 TD/TT: Machine Tool Operator: Arminda Warner DO [facility] Final Result documented in this encounter Visit Diagnoses Not on filedocumented in this encounter Care Teams Aircraft Cabin Cleaner Relationship Specialty Start Date End Date Zoraida Travis PA [facility] [place] [address] PCP - Medical [place] [employer] 01/20/24 06/20/99 documented as of this encounter
--- OUTSIDE RECORDS SUMMARY | 2024-11-30 05:37 | XMS_ITS | Encounter Summary ---
Author Organization [facility] tem Address [facility]12 [address] [place] [address] Care Team Providers Care Edge Inker Name Role Phone Ally Craig BODY BUILDER APPRENTICE-CENTRAL SUPPLY WORKER Primary Care Provi collin Reason for Visit * Reason Comments Med Change Request Encounter Details Date Type Department Care Team (Late st Contact Info) Description 11/15/2024 Refill Maternal- Medicine at [facility] [address] [place] [address] Erlin Chung MD [address] [facility] [place], [address] [place] [address] History of sleeve gastrectomy Social History Tobacco [...] Author D/C Home General Yes Yaneth Bright, BODY BUILDER APPRENTICE-CENTRAL SUPPLY WORKER Note: Evaluation of progress towards goal: Pt plans to d/c home with self care and family support. documented as of this encounter Visit Diagnoses Diagnosis History of sleeve gastrectomy documented in this encounter Additional Health Concerns Assessment Noted Time PHQ-9 Depression Total Score: 19 023 10:14 AM EDT documented as of this encounter Care Teams Edge Inker Relationship Specialty Start Date End Date Ally Craig, BODY BUILDER APPRENTICE-CENTRAL SUPPLY WORKER [address], [place] [address] PCP - General Family Medicine 04/12/18 documented as of this encounter
--- OUTSIDE RECORDS SUMMARY | 2024-11-30 05:37 | XMS_ITS | Encounter Summary ---
Author Organization [facility] Address [address] [place] [address] Care Team Providers Care Dental Hygiene Teacher Name Role Phone Zoraida Travis Unavailable Encounter Details Date Type Department Care Team (Late st Contact Info) Description 11/27/2024 Abstract [facility] BCP OB [address] [facility] [address] Celsa Coats MA Social History Tobacco [...] on filedocumented in this encounter Care Teams Dental Hygiene Teacher Relationship Specialty Start Date End Date Zoraida Travis PA [address] [place] [address] PCP - Medical [place] Commercial 01/20/24 06/20/99 documented as of this encounter
--- OUTSIDE RECORDS SUMMARY | 2024-11-30 05:37 | XMS_ITS ---
Author Organization [facility] Source Produ ction (ClinicalSummary Clone) Address Unknown Care Team Providers Care Maintenance Worker Swimming Pool Name Role Phone Unavailable Primary Care Physician Unavailab le Results * [UNITY] ANEUPLOIDY NIPT Performed by: [employer] Component Value Range Date Fraction 3.1% 06/12/2024 [...]
--- OUTSIDE RECORDS SUMMARY | 2024-11-30 05:37 | XMS_ITS | Clinical Summary ---
Author Organization [employer] tem Address [facility]-[id number] [address] [place] [address] Care Team Providers Care Rn Case Management Name Role Phone Ally Craig COPY HOLDER-CARPENTER STREETCAR Primary Care Provi collin Allergies Active Allergy Reactions Criticality Noted Date Comments [place] Extract Anaphylaxis High 02/01/2019 Medications * This [...] (10/05/2017): Added automatically from request for surgery [id number] SVT (supraventricular tachycardia) 09/26/2017 10/01/2020 Encounters Date Type Department Care Team Description 11/15/2024 Refill Maternal- Medicine at [facility] [address] [place] [address] Erlin Chung MD History of sleeve gastrectomy 11/06/2024 12:00 PM EDT Office Visit Maternal- Medicine at [facility] [address] [place] [address] Erlin Chung MD History of sleeve gastrectomy (Primary Dx) 11/06/2024 10:39 AM EDT - 11/06/2024 11:59 PM EDT Hospital Encounter [facility] - [facility] US Imaging [address] [place] [address] History of sleeve gastrectomy; Hx of supraventricular tachycardia; Encounter for follow-up ultrasound of anatomy; Encounter for anatomic survey Discharge Disposition: Home 11/06/2024 Travel 10/20/2024 8:45 AM EDT Telemedicine Maternal- Medicine at [facility] [address] [place] [address] Erlin Chung MD History of sleeve gastrectomy (Primary Dx); Hx of supraventricular tachycardia 10/20/2024 Travel 10/05/2024 9:00 AM EDT Ancillary Procedure [facility] [address] [place] [phone] Hx of supraventricular tachycardia 10/05/2024 8:30 AM EDT Office Visit [facility] [address] [place] [phone] Ole Rojas MD Hx of supraventricular tachycardia (Primary Dx) 10/05/2024 Travel 09/29/2024 Orders Only Maternal- Medicine at [facility] [address] [place] [address] Triny Morales RN History of sleeve gastrectomy (Primary Dx); Hx of supraventricular tachycardia; Encounter for follow-up ultrasound of anatomy; Encounter for anatomic survey 09/28/2024 2:22 PM EDT - 09/28/2024 11:59 PM EDT Hospital Encounter [facility] - [facility] US Imaging [address] [place] [address] History of sleeve gastrectomy; Hx of supraventricular [...] Author D/C Home General Yes Yaneth Bright, COPY HOLDER-CARPENTER STREETCAR Note: Evaluation of progress towards goal: Pt plans to d/c home with self care and family support. Medical Devices Implanted Type Area Heel Cover Softener Device Identifier Shelf Expiration Date Model / [...] Routine 10/05/2024 Hx of supraventricular tachycardia US [facility] OB FOLLOW-UP, 1 FETUS Routine 09/28/2024 4:34 PM EDT History of sleeve gastrectomy Hx of supraventricular tachycardia Encounter for follow-up ultrasound of anatomy from Last 3 Months Results * US [facility] OB FOLLOW-UP, 1 FETUS (11/06/2024 1:37 PM EDT) Only the most recent of2 resultswithin the time period is included. Anatomical Region Laterality Modality OB-ROAD INSPECTOR Ultrasound 11/06/2024 11:3 9 AM EDT Narrative 11/06/2024 3:01 PM EDT NAME: CECI PERKINS : 1995 SEX: F Accession Number: [id number] ORDERING PHYSICIAN: LUIS ANGEL NGUYEN REFERRING PHYSICIAN: ARMINDA WHITE Coding ----- --------- Procedures 29660: Follow-up Ultrasound, per fetus Indication ----- --------- Obesity in , Previous , Previous bariatric surgery, Screening for follow-up survey History ----- --------- OB History 7. Para 1 [id number] Maternal Assessment ----- --------- Physical Exam Height [...] EFW (oz) 15 oz EFW by: Hadlock (ESF-ZO-JH-FL) Extended Tibia 56.0 mm 32w 6d 26% Jody Drywall Installer 3.4 mm CM 9.1 mm 87% Nicolaides [...] Thorax RVOT view. LVOT view. 3-vessel view. 6-fdrtwa-sxytypg view. Situs. Aortic arch view. Bicaval view. [...] PERKINS : 1995 SEX: F Accession Number: [id number] ORDERING PHYSICIAN: LUIS ANGEL NGUYEN REFERRING PHYSICIAN: ARMINDA WHITE Coding ----- --------- Procedures 24381: Follow-up Ultrasound, per fetus Indication ----- --------- Obesity in , Previous , Previous bariatric surgery,Screening for follow-up survey History ----- --------- OB History 7. Para 1 [id number] Maternal Assessment ----- --------- Physical Exam Height [...] EFW (oz) 15 oz EFW by: Hadlock (ZDT-MI-QP-FL) Extended Tibia 56.0 mm 32w 6d 26% Jody Drywall Installer 3.4 mm CM 9.1 mm 87% Nicolaides [...] Thorax RVOT view. LVOT view. 3-vessel view. 6-rrsqvq-uhzfajt view.Situs. Aortic arch view. Bicaval view. Interventricular [...] 5.1 cm. Recommendations ----- --------- Please see [facility] documentation from today. anatomic survey is incomplete due to late gestational age andsuboptimal visualization. Subsequent follow up or other follow up as clinically determined byprimary OB provider unless otherwise specified by [facility]. Results forwarded to ordering provider so [...] Last 3 Months Insurance MEDICAID [employer] [facility] MEDICAID Advance Directives * Full Code (Latest Code Status on File) Date Activated Date Inactivated Comments 11/10/2021 9:36 AM 11/11/2021 5:57 PM * Full Code Date Activated Date Inactivated Comments 04/24/2019 2:41 PM 04/27/2019 6:16 PM * Full Code Date Activated Date Inactivated Comments 09/26/2017 4:13 AM 10/03/2017 1:52 PM Care Teams Rn Case Management Relationship Specialty Start Date End Date Ally Craig, RAFA-FALGUNI [address], [place] [address] PCP - General Family Medicine 04/12/18
--- OUTSIDE RECORDS SUMMARY | 2024-11-30 05:37 | XMS_ITS | Encounter Summary ---
Author Organization [facility] tem Address [facility]81767 [address] [place] [address] Care Team Providers Care Dish Person Name Role Phone Ally Craig DEV TECHNICAL MGR-TANNING SALON ATTENDANT Primary Care Provi collin Encounter Details Date Type Department Care Team (Late st Contact Info) Description 08/24/2024 Orders Only Maternal- Medicine at [facility] [address] [place] [phone] Zoraida Butcher LPN Social History Tobacco Use [...] Author D/C Home General Yes Yaneth Bright APRN-TANNING SALON ATTENDANT Note: Evaluation of progress towards goal: Pt plans to d/c home with self care and family support. documented as of this encounter Visit Diagnoses Not on filedocumented in this encounter Additional Health Concerns Assessment Noted Time PHQ-9 Depression Total Score: 19 023 10:14 AM EDT documented as of this encounter Care Teams Dish Person Relationship Specialty Start Date End Date Ally Craig, RAFA-TANNING SALON ATTENDANT [address], [place] [address] PCP - General Family Medicine 04/12/18 documented as of this encounter
--- OUTSIDE RECORDS SUMMARY | 2024-11-30 05:37 | XMS_ITS | Encounter Summary ---
Author Organization [facility] Address [address] [place] [address] Care Team Providers Care Senior Computer Specialist Name Role Phone Zoraida Travis Unavailable Encounter Details Date Type Department Care Team (Late st Contact Info) Description 11/22/2024 Bamboo flowsheet [facility] B[facility] OB [address] [place] [phone] Zoraida Travis PA [address] [facility] [address] [place], [facility]11 Social History [...] on filedocumented in this encounter Care Teams Senior Computer Specialist Relationship Specialty Start Date End Date Zoraida Travis PA [address] [place], [facility]11 PCP - Medical [place] Commercial 01/20/24 06/20/99 documented as of this encounter
--- OUTSIDE RECORDS SUMMARY | 2024-11-30 05:37 | XMS_ITS | Encounter Summary ---
Author Organization [facility] Address [address] [place] [address] Care Team Providers Care Pharmacist'S Aide Name Role Phone Zoraida Travis Unavailable Encounter Details Date Type Department Care Team (Late st Contact Info) Description 11/17/2024 Clinisync Result Encounter [facility] External Department Unsolicited Arminda Warner, DO [address] [facility] [place] [address] Social History Tobacco Use Types [...] EDT Narrative 11/17/2024 3:48 PM EDT The [facility] [address] [place] [address] Ultrasound Report Signed Patient: MADDIE ORNELAS MR#: [id number] : 1995 Acct:[id number] Age/Sex: 29 / F ADM Date: 11/17/24 Loc: [facility] 250-[address]: Arminda Warner D.O. Ordering Physician: Arminda Warner D.O. Date of Service: 11/17/24 Procedure(s): US OB BPP w non-stress Accession Number(s): [id number] cc: Arminda Warner D.O.; Ally Craig NP The [place] [address] Patient Name: MADDIE ORNELAS MRN: [id number] date: 1995 Sex: F Assigned Patient Location: [facility] Current Patient Location: [facility] Accession/Order Number: [id number] Exam Date: 11/17/2024 15:43 Report Date: 11/17/2024 [...] Diaz M.D. 11/17/2024 3:46 PM Dictation Location: [place] [address] Electronically authenticated by: [id number] Y Date: 11/17/2024 15:46 Dictated By: Anthony Diaz D.O. Signed By: 11/17/24 1548 DD/ 1546 TD/TT: Learning Disabilities Specialist: Procedure Note Radiology, Radiologist, MD - 11/17/2024 [place] [address] Ultrasound Report Signed Patient: MADDIE ORNELAS CMR#: [id number] : 1995Acct:[id number] Age/Sex: 29 / FADM Date: 11/17/24 Loc: [facility] 250-[address]: Arminda Warner D.O. Ordering Physician: Arminda Warner D.O. Date of Service: 11/17/24 Procedure(s): US OB BPP w non-stress Accession Number(s): [id number] cc: Arminda Warner D.O.; Ally Craig NP [address] [address] Patient Name: MADDIE ORNELAS MRN: [id number] date: 1995 Sex: F Assigned Patient Location: [facility] Current Patient Location: [facility] Accession/Order Number: [id number] Exam Date: 11/17/2024 15:43 Report Date: 11/17/2024 [...] Diaz M.D. 11/17/2024 3:46 PM Dictation Location: [place] [address] Electronically authenticated by: [id number] Y Date: 5:46 Dictated By: Anthony Diaz D.O. Signed By:11/17/24 1548 DD/ 1546 TD/TT: Learning Disabilities Specialist: Arminda Warner DO [facility] Final Result documented in this encounter Visit Diagnoses Not on filedocumented in this encounter Care Teams Pharmacist'S Aide Relationship Specialty Start Date End Date Zoraida Travis PA [address] [place], [place] [address]zaire [place] [address] PCP - Medical [place] Commercial 01/20/24 06/20/99 documented as of this encounter
--- OUTSIDE RECORDS SUMMARY | 2024-11-30 05:37 | XMS_ITS | Encounter Summary ---
Author Organization [facility] tem Address [facility]-[id number] [address] [place] [address] Care Team Providers Care Brick Unloader Tender Name Role Phone KiaraAlly stevenson COATER HELPER-SKIP TRACER Primary Care Provi collin Encounter Details Date Type Department Care Team (Late st Contact Info) Description 08/14/2024 Orders Only Maternal- Medicine at [facility] [address] [place] [address] Cedric Warner R, DO [address] [facility] [place] [address] Social History Tobacco Use Types Packs/Day Years [...] Author D/C Home General Yes Yaneth Bright, COATER HELPER-SKIP TRACER Note: Evaluation of progress towards goal: Pt [...] documented as of this encounter Care Teams Brick Unloader Tender Relationship Specialty Start Date End Date Ally Craig, COATER HELPER-SKIP TRACER [address], [place] [address] PCP - General Family Medicine 04/12/18 documented as of this encounter
--- OUTSIDE RECORDS SUMMARY | 2024-11-30 05:37 | XMS_ITS | Patient Health Record ---
Author Organization [facility] Address [address] [place] [address] Care Team Providers Care Retail Experience Specialist Name Role Phone Pascale Mcmahon Unavailable [phone] Reason For Referral No Information Plan Of Treatment No Information Insurance Providers Payer Name Payer Address Payer Phone Subscriber Number Group Number Insured Name Patient Relationship to Insured Coverage Start Date Coverage End Date Medicaid [employer] [place] [address] [place] [phone] [id number] MADDIE ORNELAS Self - patient is the insured
--- OUTSIDE RECORDS SUMMARY | 2024-11-30 05:37 | XMS_ITS | Encounter Summary ---
Author Organization [facility] Address [address] [place] [address] Care Team Providers Care Flight Purser Name Role Phone Zoraida Travis Unavailable Encounter Details Date Type Department Care Team (Late st Contact Info) Description 06/06/2024 Abstract [facility] BCP OB [address] [facility] [place] [place] [phone] Cedric Warner, [address] [place] [address] Velasquez, [facility] - [...] on filedocumented in this encounter Care Teams Flight Purser Relationship Specialty Start Date End Date Zoraida Travis PA [address] [place] [address] [place], [facility] PCP - Medical [employer] Commercial 01/20/24 06/20/99 documented as of this encounter
--- OUTSIDE RECORDS SUMMARY | 2024-11-30 05:37 | XMS_ITS | Encounter Summary ---
Author Organization [employer] tem Address [id number] [address] [place] [address] Care Team Providers Care Clinical Care Manager Name Role Phone Ally Craig WELT STITCHER-THEOLOGY TEACHER Primary Care Provi collin Reason for Referral * Diagnostic Imaging (Routine) - Pending Review Specialty Diagnoses / Procedures Referred By Violeta dalal Referred To Contact Maternal and Medicine Diagnoses History of sleeve gastrectomy Hx of supraventricular tachycardia Encounter for anatomic survey Procedures US [facility] with or without consult Cedric Warner DO [address] [place] [address] [place] [address] Phone: tel: fax: Maternal- Medicine at [facility] [address] [place] [address] Phone: tel: fax: Referral ID Status Reason Start Date Expiration Date V isits Requested Visits Authorized [id number] Pending Review 08/11/2024 08/11/2025 1 1 Encounter Details Date Type Department Care Team (Late st Contact Info) Description 08/11/2024 Orders Only Maternal- Medicine at [facility] [address] [place] [address] CMA History of [...] Author D/C Home General Yes Yaneth Bright, WELT STITCHER-THEOLOGY TEACHER Note: Evaluation of progress towards goal: Pt plans to d/c home with self care and family support. documented as of this encounter Results * [facility] COMPREHENSIVE ANATOMIC SURVEY (08/24/2024 9:48 AM EST) Anatomical Region Laterality Modality OB-AUTO ADJUDICATION SPECIALIST Ultrasound 08/24/2024 7:49 AM EST Narrative 08/24/2024 12:47 PM EST NAME: CECI PERKINS : 1995 SEX: F Accession Number: [id number] ORDERING PHYSICIAN: CEDRIC WARNER REFERRING PHYSICIAN: CEDRIC WARNER Coding ----- --------- Procedures 93050: Ultrasound, uterus, real time with image documentation, and maternal evaluation plus detailed anatomic examination, transabdominal approach;single or first gestation 82772: Transvaginal Ultrasound (OB) Indication ----- --------- Obesity in , Placenta previa, Screening for Anatomic Survey, Screening for cervical length History ----- --------- OB History 7. Para 1 [id number] Maternal Assessment ----- --------- Physical Exam Height [...] 1 lb 7 oz EFW by Hadlock (IHA-AX-UV-FL) Head / Face / Neck Biometry: Cephalic index 0.69 <1% Nicolaides Research Development Director 4.2 mm CM 6.6 mm 70% Nicolaides [...] Maxilla. Mandible. Heart / Thorax LVOT view. 9-uncrxw-tonqwbj view. Aortic arch view. Bicaval view. Ductal [...] 4.8 cm. Recommendations ----- --------- Please see [facility] documentation from today. The patient is scheduled in four to six week(s) to complete anatomic survey. Subsequent follow up or other follow up as clinically determined by primary OB provider unless otherwise specified by [facility]. Results forwarded to ordering provider so they can follow up with the patient as necessary. Procedure Note Erlin Chung MD - 08/24/2024 NAME: CECI PERKINS : 1995 SEX: F Accession Number: [id number] ORDERING PHYSICIAN: CEDRIC WARNER REFERRING PHYSICIAN: CEDRIC WARNER Coding ----- --------- Procedures 93796: Ultrasound, uterus, real time with imagedocumentation, and maternal evaluation plus detailed anatomic examination, transabdominalapproach;single or first gestation 60446: Transvaginal Ultrasound (OB) Indication ----- --------- Obesity in , Placenta previa, Screening for Anatomic Survey,Screening for cervical length History ----- --------- OB History 7. Para 1 [id number] Maternal Assessment ----- --------- Physical Exam Height [...] 1 lb 7 oz EFW by Hadlock (FXY-JT-XE-FL) Head / Face / Neck Biometry: Cephalic index 0.69 <1% Nicolaides Research Development Director 4.2 mm CM 6.6 mm 70% Nicolaides [...] Maxilla. Mandible. Heart / Thorax LVOT view. 3-czyhjv-saeemvz view. Aortic arch view. Bicavalview. Ductal arch [...] as necessary. us Cedric R Alana DO [facility] US ORDERABLES Final Result documented in this encounter Visit Diagnoses Diagnosis History of sleeve gastrectomy- Primary Hx of supraventricular tachycardia Encounter for anatomic survey History of sleeve gastrectomy Hx of supraventricular tachycardia Encounter for anatomic survey documented in this encounter Additional Health Concerns Assessment Noted Time PHQ-9 Depression Total Score: 19 023 10:14 AM EDT documented as of this encounter Care Teams Clinical Care Manager Relationship Specialty Start Date End Date Ally Craig APRN-THEOLOGY TEACHER [address], [place] [address] PCP - General Family Medicine 04/12/18 documented as of this encounter
--- OUTSIDE RECORDS SUMMARY | 2024-11-30 05:37 | XMS_ITS | Encounter Summary ---
Author Organization [facility] Address [address] [place] [address] Care Team Providers Care Buffing And Polishing Wheel Repairer Name Role Phone Zoraida Travis Unavailable Encounter Details Date Type Department Care Team (Late st Contact Info) Description 05/13/2024 Clinisync Result Encounter [facility] External Department Unsolicited Arminda Warner, DO [address] [facility] [place] [address] Social History Tobacco Use Types [...] EST Narrative 05/13/2024 9:02 AM EST The [address] [address] Ultrasound Report Signed Patient: MADDIE ORNELAS MR#: [id number] : 1995 Acct:[id number] Age/Sex: 28 / F ADM Date: 05/13/24 Loc: US Attending Dr: Arminda Warner D.O. Ordering Physician: Arminda Warner D.O. Date of Service: 05/13/24 Procedure(s): US OB transvaginal Accession Number(s): [id number] cc: Arminda Warner D.O.; Ally Craig NP The [place] [address] Patient Name: MADDIE ORNELAS MRN: [id number] date: 1995 Sex: F Assigned Patient Location: US Current Patient Location: US Accession/Order Number: [id number] Exam Date: 05/13/2024 08:04 Report Date: 05/13/2024 [...] Arcadio Nevarez M.D. Signed By: 05/13/2402 DD/ TD/TT: Cis Coordinator: Procedure Note Radiology, Radiologist, MD - 05/13/2024 [place] [address] Ultrasound Report Signed Patient: MADDIE ORNELAS CMR#: [id number] : 1995Acct:[id number] Age/Sex: 28 / FADM Date: 05/13/24 Loc: US Attending Dr: Arminda Warner D.O. Ordering Physician: Arminda Warner D.O. Date of Service: 05/13/24 Procedure(s): US OB transvaginal Accession Number(s): [id number] cc: Arminda Warner D.O.; Ally Craig NP [place] [id number] Patient Name: MADDIE ORNELAS MRN: [id number] date: 1995 Sex: F Assigned Patient Location: US Current Patient Location: US Accession/Order Number: [id number] Exam Date: 05/13/2024 08:04 Report Date: 05/13/2024 [...] live intrauterine 9 weeks 2 days by cony. Electronically authenticated by: ARCADIO NEVAREZ Date: 05/13/2024 08:59 Dictated By: Arcadio Nevarez M.D. Signed By:05/13/24901 DD/ 8 TD/TT: Cis Coordinator: us Arminda Warner DO [facility] Final Result documented in this encounter Visit Diagnoses Not on filedocumented in this encounter Care Teams Buffing And Polishing Wheel Repairer Relationship Specialty Start Date End Date Zoraida Travis PA [address] [place] [address] Dr Tan, [facility]11 PCP - Medical [place] Commercial 01/20/24 06/20/99 documented as of this encounter
--- OUTSIDE RECORDS SUMMARY | 2024-11-30 05:37 | XMS_ITS | Encounter Summary ---
Author Organization [facility] Address [facility] [address] [place] [address] Care Team Providers Care Senior Sales Administrator Name Role Phone KiaraAlly stevenson APRN-FUR GLOSSER Primary Care Provi collin Encounter Details Date Type Department Care Team (Late st Contact Info) Description 09/25/2021 Orders Only [facility] General Surgery-Bariatric [address] [facility] [place] [phone] Evelyn Flower CMA Social History Tobacco Use [...] Author D/C Home General Yes Yaneth Bright, RAFA-FUR GLOSSER Note: Evaluation of progress towards goal: Pt plans to d/c home with self care and family support. documented as of this encounter Visit Diagnoses Not on filedocumented in this encounter Additional Health Concerns Assessment Noted Time PHQ-9 Depression Total Score: 0 04/01/20 21 11:14 AM EDT documented as of this encounter Care Teams Senior Sales Administrator Relationship Specialty Start Date End Date Ally Craig, RAFA-FUR GLOSSER [address], [place] [address] PCP - General Family Medicine 04/12/18 documented as of this encounter
--- OUTSIDE RECORDS SUMMARY | 2024-11-30 05:37 | XMS_ITS | Encounter Summary ---
Author Organization [employer] [facility] tem Address [facility]-[id number] [address] [place] [address] Care Team Providers Care Clinical Research Tech Name Role Phone Ally Craig APRN-TISSUE INSERTER Primary Care Provi collin Encounter Details Date Type Department Care Team (Late st Contact Info) Description 08/20/2021 Telephone [facility] [address] [place] [address] [place] [address] Leslie Deal CMA Social History [...] Author D/C Home General Yes Yaneth Bright, RAFA-TISSUE INSERTER Note: Evaluation of progress towards goal: Pt plans to d/c home with self care and family support. documented as of this encounter Visit Diagnoses Not on filedocumented in this encounter Additional Health Concerns Assessment Noted Time PHQ-9 Depression Total Score: 0 04/01/20 21 11:14 AM EDT documented as of this encounter Care Teams Clinical Research Tech Relationship Specialty Start Date End Date Ally Craig APRN-TISSUE INSERTER [address], [place] [address] PCP - General Family Medicine 04/12/18 documented as of this encounter
--- OUTSIDE RECORDS SUMMARY | 2024-11-30 05:37 | XMS_ITS | Encounter Summary ---
Author Organization [facility] Address [address] [place] [address] Care Team Providers Care Mulling Machine Operator Name Role Phone Zoraida Travis Unavailable Encounter Details Date Type Department Care Team (Late st Contact Info) Description 11/21/2024 Clinisync Result Encounter [facility] External Department Unsolicited Arminda Warner, DO [address] [facility] [place] [address] Social History Tobacco Use Types [...] EDT Narrative 11/21/2024 9:06 AM EDT The [facility] [address] [place] [address] Ultrasound Report Signed Patient: MADDIE ORNELAS MR#: [id number] : 1995 Acct:[id number] Age/Sex: 29 / F ADM Date: 11/21/24 Loc: [facility] 250-[address]: Arminda Warner D.O. Ordering Physician: Arminda Warner D.O. Date of Service: 11/21/24 Procedure(s): US OB amniotic fluid vol Accession Number(s): [id number] cc: Arminda Warner D.O.; Ally Craig NP The [place] [address] Patient Name: MADDIE ORNELAS MRN: [id number] date: 1995 Sex: F Assigned Patient Location: [facility] Current Patient Location: Accession/Order Number: [id number] Exam Date: 11/21/2024 08:56 Report Date: 11/21/2024 [...] Jensen M.D. 11/21/2024 8:59 AM Dictation Location: [place] [address] Electronically authenticated by: [id number] Y Date: 11/21/2024 08:59 Dictated By: Smita Jensen M.D. Signed By: 11/21/24 0906 DD/ 0859 TD/TT: Public Address System Mechanic: Procedure Note Radiology, Radiologist, MD - 11/21/2024 [place] [address] Ultrasound Report Signed Patient: MADDIE ORNELAS CMR#: [id number] : 1995Acct:[id number] Age/Sex: 29 / FADM Date: 11/21/24 Loc: [facility] 250-[address]: Arminda Warner D.O. Ordering Physician: Arminda Warner D.O. Date of Service: 11/21/24 Procedure(s): US OB amniotic fluid vol Accession Number(s): [id number] cc: Arminda Warner D.O.; Ally Craig NP [address] [address] Patient Name: MADDIE ORNELAS MRN: [id number] date: 1995 Sex: F Assigned Patient Location: [facility] Current Patient Location: Accession/Order Number: [id number] Exam Date: 11/21/2024 08:56 Report Date: 11/21/2024 [...] Jensen M.D. 11/21/2024 8:59 AM Dictation Location: [place] [address] Electronically authenticated by: [id number] Y Date: 508:59 Dictated By: Smita Jensen M.D. Signed By:11/21/24905 DD/ 8 TD/TT: Public Address System Mechanic: Arminda Warner DO IMG XR PROCEDURES Final Result documented in this encounter Visit Diagnoses Not on filedocumented in this encounter Care Teams Mulling Machine Operator Relationship Specialty Start Date End Date Zoraida Travis PA [address] [place] [address] [place] [address] PCP - Medical [place] [employer] 01/20/24 06/20/99 documented as of this encounter
--- OUTSIDE RECORDS SUMMARY | 2024-11-30 05:37 | XMS_ITS | Encounter Summary ---
Author Organization [facility] [employer] Sys tem Address [facility]-[id number] [address] [place] [address] Care Team Providers Care Capacitor Tester Name Role Phone Ally Craig APPAREL MANAGER-SPRINKLER IRRIGATION EQUIPMENT MECHANIC Primary Care Provi collin Encounter Details Date Type Department Care Team (Late st Contact Info) Description 03/29/2024 Telephone [facility] General Surgery-Bariatric [address] [address] Lauren Arndt MD [address] [place] [address] Social History Tobacco Use Types [...] Author D/C Home General Yes Yaneth Bright APRN-SPRINKLER IRRIGATION EQUIPMENT MECHANIC Note: Evaluation of progress towards goal: Pt plans to d/c home with self care and family support. documented as of this encounter Visit Diagnoses Not on filedocumented in this encounter Additional Health Concerns Assessment Noted Time PHQ-9 Depression Total Score: 19 023 10:14 AM EDT documented as of this encounter Care Teams Capacitor Tester Relationship Specialty Start Date End Date Ally Craig, APPAREL MANAGER-SPRINKLER IRRIGATION EQUIPMENT MECHANIC [address] Antonella Medina, [place] [address] PCP - General Family Medicine 04/12/18 documented as of this encounter
--- OUTSIDE RECORDS SUMMARY | 2024-11-30 05:37 | XMS_ITS | Encounter Summary ---
Author Organization [facility] Address [address] [place] [address] Care Team Providers Care Clinical Specialist Medical Device Name Role Phone Zoraida Travis Unavailable Encounter Details Date Type Department Care Team (Late st Contact Info) Description 08/17/2024 Orders Only [facility] [address] [facility] [place] [phone] Elena Constantino MA [address] [place] [address] Social History Tobacco Use Types Packs/Day Years [...] on filedocumented in this encounter Care Teams Clinical Specialist Medical Device Relationship Specialty Start Date End Date Zoraida Travis PA [address] [place] [address] PCP - Medical [place] Commercial 01/20/24 06/20/99 documented as of this encounter
--- OUTSIDE RECORDS SUMMARY | 2024-11-30 05:37 | XMS_ITS | Encounter Summary ---
Author Organization [facility] Address [address] [place] [address] Care Team Providers Care International Bank Manager Name Role Phone Zoraida Travis Unavailable Encounter Details Date Type Department Care Team (Late st Contact Info) Description 09/22/2024 Abstract [facility] BCP OB [address] [place] [phone] Cedric Warner, [address] [place] [address]deep Velasquez, [facility]11 Social History Tobacco Use Types [...] on filedocumented in this encounter Care Teams International Bank Manager Relationship Specialty Start Date End Date Zoraida Travis PA [address] [place] [address] [place], [facility]11 PCP - Medical [place] Commercial 01/20/24 06/20/99 documented as of this encounter
--- OUTSIDE RECORDS SUMMARY | 2024-11-30 05:38 | XMS_ITS | Clinical Summary ---
Author Organization [facility] Address [address] [place] [address] Care Team Providers Care Elder Counselor Name Role Phone Ally Craig APRN - LIBRARIAN SPECIAL COLLECTIONS Primary Care Pro vider Allergies Active Allergy Reactions Criticality Noted Date Comments [place] Extract Anaphylaxis High 02/01/2019 Medications vitamin D (ERGOCALCIFEROL ) 42601 units CAPS capsule Take 1 capsule by [...] this topic Medical Devices Implanted Type Area Aquatic Life Laborer Device Identifier Shelf Expiration Date Model / Serial / Lot Plate Recon 3.5mm Low Prof 6h Implanted:Qty : 1 on 02/08/2019 by Ernesto Levine DO at [facility] Screw/Pl ate/Nail /Blane Right: Acetabulum SYNTHES-PMM [id number] / / Screw Cortx Slftp Fthrd 3.5x32mm Implanted:Qty : 1 on 02/08/2019 by Ernesto Levine DO at [facility] Screw/Pl ate/Nail /Blane Right: Acetabulum SYNTHES-PMM [id number] / / Screw Cortx Slftp Fthrd 3.5x34mm Implanted:Qty : 1 on 02/08/2019 by Ernesto Levine DO at [facility] Screw/Pl ate/Nail /Blane Right: Acetabulum SYNTHES-PMM [id number] / / Screw Cortx Slftp Fthrd 3.5x40mm Implanted:Qty : 1 on 02/08/2019 by Ernesto Levine DO at [facility] Screw/Pl ate/Nail /Blane Right: Acetabulum SYNTHES-PMM [id number] / / Screw Cortx Fthrd Slftp Ss 3.5x80mm Implanted:Qty : 1 on 02/08/2019 by Ernesto Levine DO at [facility] Screw/Pl ate/Nail /Blane Right: Acetabulum SYNTHES-PMM [id number] / / Explanted Type Area Aquatic Life Laborer Device Identifier Shelf Expiration Date Model / Serial / Lot Pin Explanted:Qty: 1 on 02/08/[address] [facility] Description:thrown in sharps container Ophir Retentioner Explanted:Qty: 1 on 02/08/[address] [facility] Description:recyled Insurance [facility] [place] GENER[place] [employer]UR[place] [address] [address] [place]O [place] [address] [facility] GENERIC AUTO INSURANCE GENERIC AUTO INSURANCE [facility] [place] GENERIC [...] 4:31 AM 02/15/2019 1:50 PM Care Teams Elder Counselor Relationship Specialty Start Date End Date Ally Craig, AUTOMOTIVE WINDOW TINTER - LIBRARIAN SPECIAL COLLECTIONS [address] [place] [address] PCP - General Nurse Practitioner 01/31/19
--- OUTSIDE RECORDS SUMMARY | 2024-11-30 05:38 | XMS_ITS | Encounter Summary ---
Author Organization [employer] s tem Address [facility]-[id number] [address] [place] [address] Care Team Providers Care Retail Store Clerk Name Role Phone Ally Craig UX INFORMATION ARCHITECT-EYEGLASS LENS GENERATOR Primary Care Provi collin Encounter Details Date Type Department Care Team (Late st Contact Info) Description 07/23/2022 [facility] [address] [place] [address] [address] [address] Gi Motley CMA Social History [...] Author D/C Home General Yes Yaneth Bright, UX INFORMATION ARCHITECT-EYEGLASS LENS GENERATOR Note: Evaluation of progress towards goal: Pt plans to d/c home with self care and family support. documented as of this encounter Visit Diagnoses Not on filedocumented in this encounter Additional Health Concerns Assessment Noted Time PHQ-9 Depression Total Score: 0 04/01/20 21 11:14 AM EDT documented as of this encounter Care Teams Retail Store Clerk Relationship Specialty Start Date End Date Ally Craig, UX INFORMATION ARCHITECT-EYEGLASS LENS GENERATOR [address], [place] [address] PCP - General Family Medicine 04/12/18 documented as of this encounter
--- OUTSIDE RECORDS SUMMARY | 2024-11-30 05:38 | XMS_ITS | Encounter Summary ---
Author Organization [facility] Address [address] [place] [address] Care Team Providers Care Emergency Medicine Medical Director Name Role Phone Zoraida Travis Unavailable Encounter Details Date Type Department Care Team (Late st Contact Info) Description 06/27/2024 Abstract [facility] BCP OB [address] [place] [address] Felicita Wyatt LPN Social History Tobacco [...] on filedocumented in this encounter Care Teams Emergency Medicine Medical Director Relationship Specialty Start Date End Date Zoraida Travis PA [address] [facility] [address] [place], [place] [id number] PCP - Medical [place] Commercial 01/20/24 06/20/99 documented as of this encounter
--- OUTSIDE RECORDS SUMMARY | 2024-11-30 05:38 | XMS_ITS | Encounter Summary ---
Author Organization [facility] Address [address] [place] [address] Care Team Providers Care Morning News Anchor Name Role Phone Zoraida Travis Unavailable Encounter Details Date Type Department Care Team (Late st Contact Info) Description 07/31/2024 Abstract [facility] BCP OB [address] [place] [phone] Cedirc Warner, [address] [place] [address] Velasquez, [facility] Social History Tobacco Use Types Packs/Day Years [...] on filedocumented in this encounter Care Teams Morning News Anchor Relationship Specialty Start Date End Date Zoraida Travis PA [address] [place] [address] [place], [facility]11 PCP - Medical [place] [employer] 01/20/24 06/20/99 documented as of this encounter
--- OUTSIDE RECORDS SUMMARY | 2024-11-30 05:38 | XMS_ITS | Encounter Summary ---
Author Organization [facility] tem Address [facility]-[id number] [address] [place] [address] Care Team Providers Care Internist Name Role Phone Ally Craig STAPLER HAND-CNC GRINDER Primary Care Provi collin Encounter Details Date Type Department Care Team (Late st Contact Info) Description 03/27/2021 Telephone [facility] Family Medicine [address] [place] [address] [place] [address] Ally Craig, STAPLER HAND-CNC GRINDER [address] [facility] [address], [place] [address] Social History Tobacco Use Types [...] documented as of this encounter Care Teams Internist Relationship Specialty Start Date End Date Ally Craig APRN-CNP [address], [place] [address] PCP - General Family Medicine 04/12/18 documented as of this encounter
--- OUTSIDE RECORDS SUMMARY | 2024-11-30 05:38 | XMS_ITS | Encounter Summary ---
Author Organization [employer] s tem Address [facility]-[id number] [address] [place] [address] Care Team Providers Care Noise Abatement Engineer Name Role Phone Ally Craig APRN-RISK CONTROL SPECIALIST Primary Care Provi collin Reason for Visit * Reason Onset Date Comments Med Refill 04/30/2020 Encounter Details Date Type Department Care Team (Late st Contact Info) Description 04/30/2020 Telephone [facility] Family Medicine [address] [place] [address] [place] [address] Nataly Caballero CMA Med Refill [...] Author D/C Home General Yes Yaneth Bright, MARKET RESEARCH CONSULTANT-RISK CONTROL SPECIALIST Note: Evaluation of progress towards goal: [...] documented as of this encounter Care Teams Noise Abatement Engineer Relationship Specialty Start Date End Date Ally Craig, RAFA-RISK CONTROL SPECIALIST [address], [place] [address] PCP - General Family Medicine 04/12/18 documented as of this encounter
--- OUTSIDE RECORDS SUMMARY | 2024-11-30 05:38 | XMS_ITS | Encounter Summary ---
Author Organization [facility] Address [address] [place] [address] Care Team Providers Care Mortgage Processing Manager Name Role Phone Zoraida Travis Unavailable Encounter Details Date Type Department Care Team (Late st Contact Info) Description 06/15/2024 Abstract [facility] OB [address] [facility] [place] [phone] Cedric Warner, [address] Velas[address], [facility]11 Social [...] on filedocumented in this encounter Care Teams Mortgage Processing Manager Relationship Specialty Start Date End Date Zoraida Travis PA [address] [place], [facility]11 PCP - Medical [place] Commercial 01/20/24 06/20/99 documented as of this encounter
--- OUTSIDE RECORDS SUMMARY | 2024-11-30 05:38 | XMS_ITS | Encounter Summary ---
Author Organization [facility] Address [facility]-[id number] [address] [place] [address] Care Team Providers Care Internet Security Specialist Name Role Phone Kiara, Ally Donn SCRUBBER MACHINE TENDER-SALES ASSISTANT ENTERTAINMENT AND MEDIA Primary Care Provi collin Encounter Details Date Type Department Care Team (Late st Contact Info) Description 12/17/2020 Orders Only [facility] General Surgery-Bariatric [address] [facility]. [address] [place] [phone] External, Scanning Provider Social History Tobacco Use [...] Author [place]/C Home General Yes Yaneth Bright, SCRUBBER MACHINE TENDER-SALES ASSISTANT ENTERTAINMENT AND MEDIA Note: Evaluation of progress towards goal: Pt plans to d/c home with self care and family support. documented as of this encounter Procedures Procedure Name Priority Date/Time Associated Diagnosis Comments PAP SMEAR Routine 12/17/2020 documented in this encounter Results * PAP SMEAR (12/17/2020) us Scanning Provider External [place] PROFESSIONAL SERVI LINDA Final Result MANUALLY TRANSCRIBED RESULTS documented in this encounter Visit Diagnoses Not on filedocumented in this encounter Additional Health Concerns Infection Onset Date Last Indicated Resolved Time COVID-19 Rule-Out 05/27/2021 05/27/2021 05/28/2021 7:43 PM EST Assessment Noted Time PHQ-9 Depression Total Score: 0 01/22/20 20 2:00 PM EDT documented as of this encounter Care Teams Internet Security Specialist Relationship Specialty Start Date End Date Ally Craig, SCRUBBER MACHINE TENDER-SALES ASSISTANT ENTERTAINMENT AND MEDIA [address], [place] [address] PCP - General Family Medicine 04/12/18 documented as of this encounter
--- OUTSIDE RECORDS SUMMARY | 2024-11-30 05:38 | XMS_ITS | CCD ---
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, Ally A Primary Care Provi collin KILO GANNDRA Referring Unavailable KIARA, ALLY A Primary Care Unavailable KIARA, ALLY A Referring Unavailable KIARA, ALLY A Primary Care Unavailable KIARA, ALLY A Primary Care Unavailable ALANA, CEDRIC R Referring Unavailable GABO, JORDAN Attending Unavailable KIARA, ALLY A Primary Care Unavailable ALANA, CEDRIC R Referring Unavailable KIARA, ALLY A Primary Care Unavailable ALANA, CEDRIC R Referring Unavailable KIARA, ALLY A Primary Care Unavailable KIARA, ALLY A Referring Unavailable LIA, LIANG WYATT Attending Unavailable KIARA, ALLY A Primary Care Unavailable LIA, LIANG WYATT Referring Unavailable GABO, JORDAN Attending Unavailable KIARA, ALLY A Primary Care Unavailable ALANA, CEDRIC R Referring Unavailable KIARA, ALLY A Primary Care Unavailable ALANA, CEDRIC R Referring Unavailable GABO, JORDAN Attending Unavailable KIARA, ALLY A Primary Care Unavailable ALANA, CEDRIC R Referring Unavailable ANUJ, ZORAIDA Attending Unavailable ANUJ, ZORAIDA Attending Unavailable ALANA, CEDRIC Attending Unavailable CAREY PENA Attending Unavailable ALANA, CEDRIC Attending Unavailable ANUJ, ZORAIDA Attending Unavailable ALANA, CEDRIC Attending Unavailable ALANA, CEDRIC Attending Unavailable ANUJ, ZORAIDA Attending Unavailable Allergies Allergy Classification Reported Allergen(s) Allergy Type Date of Onset Reaction(s) Facility strawberry allergenic extract (1 source) strawberry allergenic extract Drug Allergy [facility] Repository (11 sources) strawberry allergenic extract; Translations: [STRAWBERRY EXTRACT] Drug Allergy 9 Anaphylaxis [place], [place] (13 sources) [place] Propensity to adverse reactions 9 Anaphylaxis [facility] Medications Current Medications Medication Drug Class(es) Dates Sig (Normalized) Sig (Original) acetaminophen 500 mg oral tablet (1 source) Start: 02-01-2019 acetaminophen (TYLENOL) tablet 1,000 mg [id number] 200 actuat albuterol 0.09 mg/actuat metered dose [...] by mouth every week vitamin D (ERGOCALCIFEROL) 50851 units CAPS capsule Take 1 capsule by [...] days 5 patch 0 02/11/2019 02/16/2019 Active magnesium oxide 400 mg oral tablet (1 source) Start: 11-22-2024 End: 02-20-2025 take 1 tablet by mouth once daily magnesium oxide (Mag-Ox) 400 MG tablet Indications: Nonintractable headache, unspecified chronicity pattern, unspecified headache type Take 1 tablet (400 mg) by mouth Daily 30 tablet 2 11/22/2024 02/20/2025 Active methocarbamol 750 mg oral tablet (9 [...] omeprazole 20 mg delayed release oral tablet (8 sources) Proton Pump Inhibitor Start: 11-06-2024 take [...] route every 30 (thirty) days. 6 each 02/12/2022 Active vitamin b12 1 mg/ml injectable [...] B12 Start: 02-09-2019 End: 02-09-2019 iron polysaccharide xifodgn-G83-qqmxn acid (FERREX-FORTE) 150-0.025-1 MG capsule 1 mg [...] Test Name Value Interpretation Reference Range Facility OB BPP W NON-STRESS on 11-24-2024 [place] [address] Ultrasound Report Signed Patient: MADDIE RAMAN MR#: [id number] : 1995 Acct:[id number] Age/Sex: 29 / F ADM Date: 11/24/24 Loc: [facility] 250-[address]: Cedric Warner D.O. Ordering Physician: Cedric Warner D.O. Date of Service: 11/24/24 Procedure(s): US OB BPP w non-stress Accession Number(s): [id number] cc: Cedric Warner D.O.; Ally Craig NP [address] [address] Patient Name: MADDIE RAMAN MRN: [facility]:[id number] date: 1995 Sex: F Assigned Patient Location: [facility] Current Patient Location: [facility] Accession/Order Number: [id number] Exam Date: 11/24/2024 16:17 Report Date: 11/24/2024 16:18 At the request of: CEDRIC WARNER DO [...] Diaz M.D. 11/24/2024 4:18 PM Dictation Location: [place] [address] Electronically authenticated by: [id number] Y Date: 11/24/2024 16:18 Dictated By: Anthony Diaz D.O. Signed By: 11/24/24 1620 DD/ 1618 TD/TT: Wind Turbine Electrical Engineer: [facility] Radiology, Radiologist, MD - 11/24/2024 [place] [address] Ultrasound Report Signed Patient: MADDIE RAMAN MR#: [id number] : 1995 Acct:[id number] Age/Sex: 29 / F ADM Date: 11/24/24 Loc: [facility] 250-[address]: Cedric Warner D.O. Ordering Physician: Cedric Warner D.O. Date of Service: 11/24/24 Procedure(s): US OB BPP w non-stress Accession Number(s): [id number] cc: Cedric Warner D.O.; Ally Craig NP The [place] [id number] Patient Name: MADDIE RAMAN MRN: [facility]:[id number] date: 1995 Sex: F Assigned Patient Location: [facility] Current Patient Location: [facility] Accession/Order Number: [id number] Exam Date: 11/24/2024 16:17 Report Date: 11/24/2024 16:18 At the request of: CEDRIC WARNER DO [...] Diaz M.D. 11/24/2024 4:18 PM [facility]ictation [facility] Electronically authenticated by: [id number] Y Date: 11/24/2024 16:18 Dictated By: Anthony Diaz D.O. Signed By: 11/24/24 162 DD/ 161 TD/TT: Wind Turbine Electrical Engineer: [facility] [employer] Radiology Study observation (narrative) [facility] US OB BPP W NON-STRESS Ordered By: Radiologist Radiology on 11-24-2024 [facility] [employer] Work Phone: US AMNIOTIC FLUID VOLUMEon 0 11-21-2024 [place] [address] Ultrasound Report Signed Patient: MADDIE RAMAN MR#: [id number] : 1995 Acct:[id number] Age/Sex: 29 / F ADM Date: 11/21/24 Loc: [facility] 250-[address]: Cedric Warner D.O. Ordering Physician: Cedric Warner D.O. Date of Service: 11/21/24 Procedure(s): US OB amniotic fluid vol Accession Number(s): [id number] cc: Cedric Warner D.O.; Ally Craig NP [address] [address] Patient Name: MADDIE RAMAN MRN: [id number]:[id number] date: 1995 Sex: F Assigned Patient Location: [facility] Current Patient Location: Accession/Order Number: [id number] Exam Date: 11/21/2024 08:56 Report Date: 11/21/2024 08:59 At the request of: CEDRIC WARNER DO Procedure: US OB amniotic fluid [...] Jensen M.D. 11/21/2024 8:59 AM Dictation Location: [place] [address] Electronically authenticated by: [id number] Y Date: 11/21/2024 08:59 Dictated By: Smita Jensen M.D. Signed By: 11/21/24 0906 DD/ 0859 TD/TT: Wind Turbine Electrical Engineer: [facility] Radiology, Radiologist, MD - 11/21/2024 [place] [address] Ultrasound Report Signed Patient: MADDIE RAMAN MR#: [id number] : 1995 Acct:[id number] Age/Sex: 29 / F ADM Date: 11/21/24 Loc: [place] [address]-[address]: Cedric Warner D.O. Ordering Physician: Cedric Warner D.O. Date of Service: 11/21/24 Procedure(s): US OB amniotic fluid vol Accession Number(s): [id number] cc: Cedric Warner D.O.; Ally Craig NP [facility] [place] [phone] Patient Name: MADDIE RAMAN MRN: [facility]:[id number] date: 1995 Sex: F Assigned Patient Location: [facility] Current Patient Location: Accession/Order Number: [id number] Exam Date: 11/21/2024 08:56 Report Date: 11/21/2024 08:59 At the request of: CEDRIC WARNER DO Procedure: US OB amniotic fluid [...] Jensen M.D. 11/21/2024 8:59 AM Dictation Location: [place] [address] Electronically authenticated by: [id number] Y Date: 11/21/2024 08:59 Dictated By: Smita Jensen M.D. Signed By: 11/21/24905 DD/ 8 TD/TT: Wind Turbine Electrical Engineer: [facility] Radiology Study observation (narrative) [facility] US AMNIOTIC FLUID VOLUMEOrde red By: Radiologist Radiology on 11-21-2024 [facility] [employer] Work Phone: US OB BPP W NON-STRESS on 11-17-2024 [place] [address] Ultrasound Report Signed Patient: MADDIE RAMAN MR#: [id number] : 1995 Acct:[id number] Age/Sex: 29 / F ADM Date: 11/17/24 Loc: [facility] 250-[address]: Cedric Warner D.O. Ordering Physician: Cedric Warner D.O. Date of Service: 11/17/24 Procedure(s): US OB BPP w non-stress Accession Number(s): [id number] cc: Cedric Warner D.O.; Ally Craig NP [place] [address] Patient Name: MADDIE RAMAN MRN: [id number] date: 1995 Sex: F Assigned Patient Location: [facility] Current Patient Location: [facility] Accession/Order Number: [id number] Exam Date: 11/17/2024 15:43 Report Date: 11/17/2024 [...] Diaz M.D. 11/17/2024 3:46 PM Dictation Location: [place] [address] Electronically authenticated by: [id number] Y Date: 11/17/2024 15:46 Dictated By: Anthony Diaz D.O. Signed By: 11/17/24 1548 DD/ 1546 TD/TT: Wind Turbine Electrical Engineer: [facility] Radiology, Radiologist, MD - 11/17/2024 [place] [address] Ultrasound Report Signed Patient: MADDIE RAMAN MR#: [id number] : 1995 Acct:[id number] Age/Sex: 29 / F ADM Date: 11/17/24 Loc: [facility] 250-[address]: Cedric Warner D.O. Ordering Physician: Cedric Wraner D.O. Date of Service: 11/17/24 Procedure(s): US OB BPP w non-stress Accession Number(s): [id number] cc: Cedric Warner D.O.; Ally Craig NP The [place] [address] Patient Name: MADDIE RAMAN MRN: [facility]:[id number] date: 1995 Sex: F Assigned Patient Location: [facility] Current Patient Location: [facility] Accession/Order Number: [id number] Exam Date: 11/17/2024 15:43 Report Date: 11/17/2024 [...] Diaz M.D. 11/17/2024 3:46 PM Dictation Location: [place] Electronically authenticated by: [id number] Y Date: 11/17/2024 15:46 Dictated By: Anthony Diaz D.O. Signed By: 11/17/24 1548 DD/ 1546 TD/TT: Wind Turbine Electrical Engineer: [facility] Radiology Study observation (narrative) [facility] US OB BPP W NON-STRESS Ordered By: Radiologist Radiology on 11-17-2024 [facility] Work Phone: Urinalysis macro (dipstick) panel (U)on 11-14-2024 Bilirubin, UA Negative Negative - 4(70) +++ mg/dL [facility] Blood, UA Negative Negative - 50 Miguel Angel/mcL [facility] Clarity, UA Clear [facility] Color, UA Yellow [facility] Glucose, UA Negative Negative - 2000(110) ++++ mg/dL [facility] Interpretation and review of laboratory results Abnormal [facility] Ketones, UA Negative Negative - 160(16) ++++ mg/dL [facility] Leukocytes, UA Negative Negative - 500+++ Eleonora/mcL [facility] Nitrite, UA Negative Negative - Positive [facility] pH, UA 6.5 5 - 9 [facility] Protein, UA Trace Negative - 2000(20) ++++ mg/dL [facility] Spec Grav, UA 1.02 1 - 1.03 [facility] Urobilinogen, UA 0.2 0.2 - 12 mg/dL [facility] US OB BPP W NON-STRESS on 11-03-[address] [address] Ultrasound Report Signed Patient: MADDIE RAMAN MR#: [id number] : 1995 Acct:[id number] Age/Sex: 29 / F ADM Date: 11/03/24 Loc: US Attending Dr: Cedric Warner D.O. Ordering Physician: Cedric Warner D.O. Date of Service: 11/03/24 Procedure(s): US OB BPP w non-stress Accession Number(s): [id number] cc: Cedric Warner D.O.; Ally Craig NP [place] [address] Patient Name: MADDIE RAMAN MRN: [facility]:[id number] date: 1995 Sex: F Assigned Patient Location: [facility] Current Patient Location: Accession/Order Number: [id number] Exam Date: 11/03/2024 16:12 Report Date: 11/03/2024 [...] Bland M.D. 11/03/2024 4:13 PM Dictation Location: [place] [address] Electronically authenticated by: [id number] Y Date: 11/03/2024 16:13 Dictated By: Cristo Bland M.D. Signed By: 11/03/241615 DD/ 12 TD/TT: Wind Turbine Electrical Engineer: [facility] Radiology, Radiologist, - 11/03/2024 [place] [address] Ultrasound Report Signed Patient: MADDIE RAMAN MR#: [id number] : 1995 Acct:[id number] Age/Sex: 29 / F ADM Date: 11/03/24 Loc: US Attending Dr: Cedric Warner D.O. Ordering Physician: Cedric Warner D.O. Date of Service: 11/03/24 Procedure(s): US OB BPP w non-stress Accession Number(s): [id number] cc: Cedric Warner D.O.; Ally Craig NP [facility] [place] [address] Patient Name: MADDIE RAMAN MRN: [facility]:[id number] date: 1995 Sex: F Assigned Patient Location: [facility] Current Patient Location: Accession/Order Number: [id number] Exam Date: 11/03/2024 16:12 Report Date: 11/03/2024 [...] Bland M.D. 11/03/2024 4:13 PM Dictation Location: [facility] Electronically authenticated by: [id number] Y Date: 11/03/2024 16:13 Dictated By: Cristo Bland M.D. Signed By: 11/03/241615 DD/ 12 TD/TT: Wind Turbine Electrical Engineer: [facility] Radiology Study observation (narrative) [facility] US OB BPP W NON-STRESS Ordered By: Radiologist Radiology on 11-03-2024 [facility] Work Phone: US OB BPP W NON-STRESS on 10-30-2024 [place] [address] Ultrasound Report Signed Patient: MADDIE RAMAN MR#: [id number] : 1995 Acct:[id number] Age/Sex: 29 / F ADM Date: 10/27/24 Loc: US Attending Dr: Cedric Warner D.O. Ordering Physician: Cedric Warner D.O. Date of Service: 10/27/24 Procedure(s): US OB BPP w non-stress Accession Number(s): [id number] cc: Cedric Warner D.O.; Ally Craig NP [place] [address] Patient Name: MADDIE RAMAN MRN: [id number]:[id number] date: 1995 Sex: F Assigned Patient Location: US Current Patient Location: Accession/Order Number: [id number] Exam Date: 10/30/2024 09:26 Report Date: 10/30/2024 09:28 At the request of: CEDRIC WARNER DO Procedure: US OB BPP w non-stress BIOPHYSICAL PROFILE: CLINICAL INFORMATION: HISTORY OF GASTRIC SLEEVE Z 90.3 COMPARISON: 08/05/2024 There is a single live intrauterine gestation in cephalic presentation. The reported gestational age is 33 weeks 1 day. The heart rate beats per minute. FINDINGS: TONE: 1 or [...] Jensen M.D. 10/30/2024 9:28 AM Dictation Location: [place] [address] Electronically authenticated by: [id number] Y Date: 10/30/2024 09:28 Dictated By: Smita Jensen M.D. Signed By: 10/30/24930 DD/ 7 TD/TT: Wind Turbine Electrical Engineer: [facility] Radiology, Radiologist, - 10/30/2024 [place] [address] Ultrasound Report Signed Patient: MADDIE RAMAN MR#: [id number] : 1995 Acct:[id number] Age/Sex: 29 / F ADM Date: 10/27/24 Loc: US Attending Dr: Cedric Warner D.O. Ordering Physician: Cedric Warner D.O. Date of Service: 10/27/24 Procedure(s): US OB BPP w non-stress Accession Number(s): [id number] cc: Cedric Warner D.O.; Ally Craig NP [facility] [place] [address] Patient Name: MADDIE RAMAN MRN: [facility]:[id number] date: 1995 Sex: F Assigned Patient Location: US Current Patient Location: Accession/Order Number: [id number] Exam Date: 10/30/2024 09:26 Report Date: 10/30/2024 09:28 At the request of: CEDRIC WARNER DO Procedure: US OB BPP w non-stress BIOPHYSICAL PROFILE: CLINICAL INFORMATION: HISTORY OF GASTRIC SLEEVE Z 90.3 COMPARISON: 08/05/2024 There is a single live intrauterine gestation in cephalic presentation. The reported gestational age is 33 weeks 1 day. The heart rate [id number] beats per minute. FINDINGS: TONE: 1 or [...] This is in low-normal range. Total score: 01/26 US/US OB BPP w non-stress IMPRESSION: NORMAL BIOPHYSICAL PROFILE. Impression dictated by: Smita Jensen M.D. 10/30/2024 9:28 AM Dictation Location: [place] [address] Electronically authenticated by: [id number] Y Date: 10/30/2024 09:28 Dictated By: Smita Jensen M.D. Signed By: 10/30/2431 DD/ 7 TD/TT: Wind Turbine Electrical Engineer: [facility] Radiology Study observation (narrative) [facility] OB BPP W NON-STRESS Ordered By: Radiologist Radiology on 10-30-2024 [facility] Work Phone: Urinalysis macro (dipstick) panel (U)on 10-25-2024 Bilirubin, UA Negative Negative - 4(70) +++ mg/dL [facility] Blood, UA Negative Negative - 50 Miguel Angel/mcL [facility] Clarity, UA Clear [facility] Color, UA Yellow [facility] Glucose, UA Negative Negative - 1999(110) ++++ mg/dL [facility] Interpretation and review of laboratory results Normal [facility] Ketones, UA Negative Negative - 160(16) ++++ mg/dL [facility] Leukocytes, UA Negative Negative - 500+++ Eleonora/mcL [facility] Nitrite, UA Negative Negative - Positive [facility] pH, UA 6.5 5 - 9 [facility] Protein, UA Negative Negative - 1999(20) ++++ mg/dL [facility] Spec Grav, UA 1.015 1 - 1.03 [facility] Urobilinogen, UA 0.2 0.2 - 12 mg/dL [facility] Urinalysis macro (dipstick) panel (U)on 10-11-2024 Bilirubin, UA Negative Negative - 4(70) +++ mg/dL [facility] Blood, UA Negative Negative - 50 Miguel Angel/mcL [facility] Clarity, UA Clear [facility] Color, UA Yellow [facility] Glucose, UA Negative Negative - 1999(110) ++++ mg/dL [facility] Interpretation and review of laboratory results Normal [facility] Ketones, UA Negative Negative - 160(16) ++++ mg/dL [facility] Leukocytes, UA Negative Negative - 500+++ Eleonora/mcL [facility] Nitrite, UA Negative Negative - Positive [facility] pH, UA 7 5 - 9 [facility] Protein, UA Trace Negative - 1999(20) ++++ mg/dL [facility] Spec Grav, UA 1.025 1 - 1.03 [facility] Urobilinogen, UA 0.2 0.2 - 12 mg/dL [facility] POCT EKGon 10-05-2024 [facility] Urinalysis macro (dipstick) panel (U)on 09-26-2024 Bilirubin, UA Negative Negative - 4(70) +++ mg/dL [facility] Blood, UA Negative Negative - 50 Miguel Angel/mcL [facility] Clarity, UA Clear [facility] Color, UA Tiffany [facility] Glucose, UA Negative Negative - 1999(110) ++++ mg/dL [facility] Interpretation and review of laboratory results Abnormal [facility] Ketones, UA Negative Negative - 160(16) ++++ mg/dL [facility] Leukocytes, UA Negative Negative - 500+++ Eleonora/mcL [facility] Nitrite, UA Negative Negative - Positive [facility] pH, UA 6 5 - 9 [facility] Protein, UA Positive Negative - 1999(20) ++++ mg/dL [facility] Comment on above: 30 Spec Grav, UA 1.03 1 - 1.03 [facility] Urobilinogen, UA 0.2 0.2 - 12 mg/dL [facility] No Panel InformationOrdered By: Radiologist Radiology on 08-05-2024 [facility] Work Phone: No Panel Informationon 08-05 Radiology Study observation (narrative) [facility] US OB ANATOMYon 08-05-[address] [address] Ultrasound Report Signed Patient: MADDIE RAMAN MR#: [id number] : 1995 Acct:[id number] Age/Sex: 29 / F ADM Date: 08/05/24 Loc: US Attending Dr: Zoraida Travis Ordering Physician: Zoraida Travis Date of Service: 08/05/24 Procedure(s): US OB anatomy Accession Number(s): [id number] cc: Zoraida Travis; Ally Craig NP [address] [address] Patient Name: MADDIE RAMAN MRN: [facility]:[id number] date: 1995 Sex: F Assigned Patient Location: US Current Patient Location: US Accession/Order Number: [id number] Exam Date: 08/05/2024 08:01 Report Date: 08/05/2024 [...] M.D. Signed By: 08/05/2458 DD/ 4 TD/TT: Wind Turbine Electrical Engineer: [facility] Radiology, Radiologist, MD - 08/05/2024 [place] [address] Ultrasound Report Signed Patient: MADDIE RAMAN MR#: [id number] : 1995 Acct:[id number] Age/Sex: 29 / F ADM Date: 08/05/24 Loc: US Attending Dr: Zoraida Travis Ordering Physician: Zoraida Travis Date of Service: 08/05/24 Procedure(s): US OB anatomy Accession Number(s): [id number] cc: Zoraida Travis; Ally Craig NP The [address] [address] Patient Name: MADDIE RAMAN MRN: [facility]:[id number] date: 1995 Sex: F Assigned Patient Location: US Current Patient Location: US Accession/Order Number: [id number] Exam Date: 08/05/2024 08:01 Report Date: 08/05/2024 [...] Mathew M.D. Signed By: 08/05/2458 DD/ TD/TT: Wind Turbine Electrical Engineer: [employer] US OB CERVICAL LENGTHon 07-22 [place] [address] Ultrasound Report Signed Patient: MADDIE RAMAN MR#: [id number] : 1995 Acct:[id number] Age/Sex: 29 / F ADM Date: 08/05/24 Loc: US Attending Dr: Zoraida Travis Ordering Physician: Zoraida Travis Date of Service: 08/05/24 Procedure(s): US OB cervical length Accession Number(s): [id number] cc: Zoraida Travis; Ally Craig NP [place] [address] Patient Name: MADDIE RAMAN MRN: [facility]:[id number] date: 1995 Sex: F Assigned Patient Location: US Current Patient Location: Accession/Order Number: [id number] Exam Date: 08/05/2024 08:01 Report Date: 08/05/2024 [...] Signed By: 08/05/24 0858 DD/ 0855 TD/TT: Wind Turbine Electrical Engineer: [facility] Radiology, Radiologist, - 08/05/2024 [place] [address] Ultrasound Report Signed Patient: MADDIE RAMAN MR#: [id number] : 1995 Acct:[id number] Age/Sex: 29 / F ADM Date: 08/05/24 Loc: US Attending Dr: Zoraida Travis Ordering Physician: Zoraida Travis Date of Service: 08/05/24 Procedure(s): US OB cervical length Accession Number(s): [id number] cc: Zoraida Travis; Ally Craig NP [facility] [place] [address] Patient Name: MADDIE RAMAN MRN: [facility]:[id number] date: 1995 Sex: F Assigned Patient Location: US Current Patient Location: US Accession/Order Number: [id number] Exam Date: 08/05/2024 08:01 Report Date: 08/05/2024 [...] M.D. Signed By: 08/05/2458 DD/ 4 TD/TT: Wind Turbine Electrical Engineer: [facility] IGP,APTIMA HPV,AGE GDLNon AGE GDLN ACOG TESTING Note . [facility] Comment on above: TESTS RESULT FLAG U NITS REF RANGE LAB Clinician Provided Cytology Information Source.............Cervix Other.............. No. of containers..01 ThinPrep Vial Age Algo ACOG Theodora... -19 07 FLAG LEGEND: L-Low Normal,H-High Normal,LL-Alert Low,HH-Alert High <-Panic Low,>-Panic High,A-Abnormal,AA-Critical Abnormal Performed at: 01 =[facility] [address] [facility] [address] Otilia Marquis MD, IGP, RFX APTIMA HPV ASCU Note . [facility] Comment on above: TESTS RESULT FLAG UN ITS REF RANGE LAB DIAGNOSIS: 02 NEGATIVE FOR INTRAEPITHELIAL LESION OR MALIGNANCY. Specimen adequacy: 02 Satisfactory for evaluation. Endocervical and/or squamous metaplastic cells (endocervical component) are present. Performed by: Trupti Bliss, Preparing Box Tender ([facility]) . 02 Note: Note 03 The Pap [...] <-Panic Low,>-Panic High,A-Abnormal,AA-Critical Abnormal Performed at: 02 [facility] [address] [place] [address] Kyra Flores PhD, [facility] [address] [address] Otilia Marquis MD, Performed at: =[address] [id number] Compliance Examiner: Otilia Marquis MD, Phone: [phone] Performed at: [facility] [address] [place] [id number] Compliance Examiner: Kyra Flores PhD, Phone: [phone] [facility] [facility] RECURRENT VAGINITIS (HTRX)on 08-02-2024 ATOPOBIUM VAGINAE 21.302 Abnormal [facility] ATOPOBIUM VAGINAE Detected Abnormal [facility] BVAB 2,3 (BACTERIAL VAGINOSIS ASSOCIATED BACTERIA 2, 3); MOBILUNCUS SPP 18.822 Abnormal [facility] BVAB 2,3 (BACTERIAL VAGINOSIS ASSOCIATED BACTERIA 2, 3); MOBILUNCUS SPP Detected Abnormal [facility] ROCÍO ALBICANS, PARAPSILOSIS, TROPICALIS 0 [facility] ROCÍO ALBICANS, PARAPSILOSIS, TROPICALIS Not detected [facility] ROCÍO GLABRATA 0 [facility] ROCÍO GLABRATA Not detected [facility] ROCÍO KRUSEI 0 [facility] ROCÍO KRUSEI Not detected [facility] CHLAMYDIA TRACHOMATIS 0 [facility] CHLAMYDIA TRACHOMATIS Not detected [facility] ERMB, C; MEFA 21.66 Abnormal [facility] ERMB, C; MEFA Detected Abnormal [facility] GARDNERELLA VAGINALIS 22.792 Abnormal [facility] GARDNERELLA VAGINALIS Detected Abnormal [facility] Interpretation and review of laboratory results Abnormal [facility] MEGASPHAERA (TYPES 1, 2) 17.674 Abnormal [facility] MEGASPHAERA (TYPES 1, 2) Detected Abnormal [facility] MYCOPLASMA GENITALIUM 0 [facility] MYCOPLASMA GENITALIUM Not detected [facility] NEISSERIA GONORRHOEAE 0 [facility] NEISSERIA GONORRHOEAE Not detected [facility] TRICHOMONAS VAGINALIS 0 [facility] TRICHOMONAS VAGINALIS Not detected [facility] Urinalysis macro (dipstick) panel (U)on 07-31-2024 Bilirubin, UA Positive Negative - 4(70) +++ mg/dL [facility] Comment on above: small Blood, UA Negative Negative - 50 Miguel Angel/mcL [facility] Clarity, UA Cloudy [facility] Color, UA Dark Tiffany [facility] Glucose, UA Negative Negative - 1999(110) ++++ mg/dL [facility] Interpretation and review of laboratory results Abnormal [facility] Ketones, UA Negative Negative - 160(16) ++++ mg/dL [facility] Leukocytes, UA Negative Negative - 500+++ Eleonora/mcL [facility] Nitrite, UA Negative Negative - Positive [facility] pH, UA 6 5 - 9 [facility] Protein, UA Positive Negative - 2000(20) ++++ mg/dL [facility] Comment on above: 30 mg Spec Grav, UA 1.03 1 - 1.03 [facility] Urobilinogen, UA 1.0 0.2 - 12 mg/dL [facility] AFP, SERUM, OPEN SPINA BIFID Aon 07-07-2024 AFP MOM 0.99 . [facility] AFP VALUE 31.8 ng/mL . [facility] COMMENT: Comment . [facility] Comment on above: Yanni West , Ph.D., [facility] Director References: Available Upon Request. Multiples Of Median Cutoffs For AFP Elevations Alonso 2.5 Black 2.8 IDD 2.0 Twins 4.5 Abbreviation Definitions IDD - Insulin Dep Diabetes OSBR - Open Spina Bifida Risk For further inquiries contact [facility] at [phone]. This test was developed and its performance characteristics determined by [employer]. It has not been cleared or approved by the Food and Drug Administration. Performed at: [facility] [place], [place] [id number] Compliance Examiner: [facility], Phone: [phone] GEST. AGE ON COLLECTION DATE 17.9 . weeks [facility] GESTAT. AGE BASED ON Ultrasound . [facility] Comment on above: 15:0 on 06/15/2024 Recalculations are not recommended when gestational dating by LMP and ultrasound are within 10 days. INSULIN DEP DIABETES No . [facility] INTERPRETATION Comment . [facility] Comment on above: Interpretation: Scre en [...] Customer Services to discuss available options. The [employer] recommends amniocentesis be offered to women age 35 and older. [age] [facility] MULTIPLE GESTATION No . [facility] [place] [address] . [facility] RACE . [facility] RESULTS Report . [facility] TEST RESULTS: Negative . [facility] . [id number] UL[facility]AS[facility] [id number] 15 N 1 Y 237 N N N N N [facility]inal[facility] macro (dipstick) panel (U)on 06-15-2024 Bilirubin, UA Negative Negative - 4(70) +++ mg/dL [facility] Blood, UA Negative Negative - 50 Miguel Angel/mcL [facility] Clarity, UA Clear [facility] Color, UA Yellow [facility] Glucose, UA Negative Negative - 2000(110) ++++ mg/dL [facility] Interpretation and review of laboratory results Abnormal [facility] Ketones, UA Negative Negative - 160(16) ++++ mg/dL [facility] Leukocytes, UA Few Negative - 500+++ Eleonora/mcL [facility] Comment on above: small Nitrite, UA Negative Negative - Positive [facility] pH, UA 7 5 - 9 [facility] Protein, UA Negative Negative - 2000(20) ++++ mg/dL [facility] Spec Grav, UA 1.025 1 - 1.03 [facility] Urobilinogen, UA 2.0 0.2 - 12 mg/dL [facility] BOX TESTon 06-06-2024 BOX TEST SENT OUT [facility] BOX1 [facility] BOX2 06/06/24 [facility] ( test) Ql (U)o n 05-29-2024 Interpretation and review of laboratory results Abnormal [facility] Preg Test, Ur Positive Negative [facility] Urinalysis macro (dipstick) panel (U)on 05-29-2024 Bilirubin, UA Negative Negative - 4(70) +++ mg/dL [facility] Blood, UA Negative Negative - 50 Miguel Angel/mcL [facility] Clarity, UA Clear [facility] Color, UA Yellow [facility] Glucose, UA Negative Negative - 1999(110) ++++ mg/dL [facility] Interpretation and review of laboratory results Abnormal [facility] Ketones, UA Positive Negative - 160(16) ++++ mg/dL [facility] Comment on above: trace Leukocytes, UA Negative Negative - 500+++ Eleonora/mcL [facility] Nitrite, UA Negative Negative - Positive [facility] pH, UA 6.5 5 - 9 [facility] Protein, UA Negative Negative - 1999(20) ++++ mg/dL [facility] Spec Grav, UA 1.02 1 - 1.03 [facility] Urobilinogen, UA 1.0 0.2 - 12 mg/dL [facility] PREG QUANT HCGon 024 HCG QUANTITATIVE 72826 mIU/mL [facility] Comment on above: 5-50 0.2-1 WEEK 50-500 1-2 WEEKS 100-5,000 2-3 WEEKS 500-10,000 3-4 WEEKS 1,000-50,000 4-5 WEEKS 10,000-100,000 5-6 WEEKS 15,000-200,000 6-8 WEEKS 10,000-100,000 2[facility] 024 HCG QUANTITATIVE 87522 mIU/mL [facility] Comment on above: 5-50 0.2-1 WEEK 50-500 1-2 WEEKS 100-5,000 2-3 WEEKS 500-10,000 3-4 WEEKS 1,000-50,000 4-5 WEEKS 10,000-100,000 5-6 WEEKS 15,000-200,000 6-8 WEEKS 10,000-100,000 2-[facility] HCGon 024 HCG QUANTITATIVE 27931 mIU/mL [facility] Comment on above: 5-50 0.2-1 WEEK 50-500 1-2 WEEKS 100-5,000 2-3 WEEKS 500-10,000 3-4 WEEKS 1,000-50,000 4-5 WEEKS 10,000-100,000 5-6 WEEKS 15,000-200,000 6-8 WEEKS 10,000-100,000 2-3 MONTHS Formerly named [facility] CBC AND AUTO DIFFon 03-15-20 24 ABSOLUTE BASOPHIL 0.1 X10E9/L Normal 0.0-0.2 [facility] Comment on above: Performed By: #### 2 4331-1, CBCA, CMP, FEPR, 2275-09, 2132-02, THYR #### [facility] ([id number]) [address], [address] [place] [address] ABSOLUTE NEUTROPHIL 3.1 X10E9/L Normal 1.5-6.6 [facility] Comment on above: Performed By: #### 2 4331-1, CBCA, CMP, FEPR, 2275-09, 2132-02, THYR #### [facility] ([id number]) [address], [address] [place] [address] Basophils/100 WBC (Bld) 1.2 % Normal [facility] Comment on above: Performed By: #### 2 4331-1, CBCA, CMP, FEPR, 2275-09, 2132-02, THYR #### [facility] ([id number]) [address], [address] [place] [address] Eosinophils (Bld) [#/Vol] 0.4 10*3/uL Normal 0.0-0.4 [facility] Comment on above: Performed By: #### 2 4331-1, CBCA, CMP, FEPR, 2275-09, 2132-02, THYR #### [facility] ([id number]) [address], [address] [place] [address] Eosinophils/100 WBC (Bld) 6.7 % Normal [facility] Comment on above: Performed By: #### 2 4331-1, CBCA, CMP, FEPR, 2275-09, 2132-02, THYR #### [facility] ([id number]) [address] [address] Erythrocyte distribution width (RBC) [Ratio] 12.8 % Normal 11.5-15.0 [facility] Comment on above: Performed By: #### 2 4331-1, CBCA, CMP, FEPR, 2275-09, 2132-02, THYR #### [facility] ([id number]) [address] [address] Hematocrit (Bld) [Volume fraction] 36.5 % Normal 35-47 [facility] Comment on above: Performed By: #### 2 4331-1, CBCA, CMP, FEPR, 2275-09, 2132-02, THYR #### [facility] ([id number]) [address] [address] Hemoglobin (Bld) [Mass/Vol] 12.9 g/dL Normal 11.7-15.5 [facility] Comment on above: Performed By: #### 2 4331-1, CBCA, CMP, FEPR, 2275-09, 2132-02, THYR #### [facility] ([id number]) [address] [address] Lymphocytes (Bld) [#/Vol] 1.3 10*3/uL Normal 1.0-3.5 [facility] Comment on above: Performed By: #### 2 4331-1, CBCA, CMP, FEPR, 2275-09, 2132-02, THYR #### [facility] ([id number]) [address] [address] Lymphocytes/100 WBC (Bld) 25.0 % Normal [facility] Comment on above: Performed By: #### 2 4331-1, CBCA, CMP, FEPR, 2275-09, 2132-02, THYR #### [facility] ([id number]) [address], [address] [place] [address] MCH (RBC) [Entitic mass] 31.2 pg Normal 27-34 [facility] Comment on above: Performed By: #### 2 4331-1, CBCA, CMP, FEPR, 2275-09, 2132-02, THYR #### [facility] ([id number]) [address], [address] [place] [address] MCHC (RBC) [Mass/Vol] 35.4 g/dL Normal 32-36 [facility] Comment on above: Performed By: #### 2 4331-1, CBCA, CMP, FEPR, 2275-09, 2132-02, THYR #### [facility] ([id number]) [address], [address] [place] [address] MCV (RBC) [Entitic vol] 88 fL Normal 80-100 [facility] Comment on above: Performed By: #### 2 4331-1, CBCA, CMP, FEPR, 2275-09, 2132-02, THYR #### [facility] ([id number]) [address], [address] [place] [address] Monocytes (Bld) [#/Vol] 0.4 10*3/uL Normal 0-0.9 [facility] Comment on above: Performed By: #### 2 4331-1, CBCA, CMP, FEPR, 2275-09, 2132-02, THYR #### [facility] ([id number]) [address], [address] [place] [address] Monocytes/100 WBC (Bld) 8.4 % Normal [facility] Comment on above: Performed By: #### 2 4331-1, CBCA, CMP, FEPR, 2275-09, 2132-02, THYR #### [facility] ([id number]) [address] [address] [place] [address] Neutrophils/100 WBC (Bld) 58.7 % Normal [facility] Comment on above: Performed By: #### 2 4331-1, CBCA, CMP, FEPR, 2275-09, 2132-02, THYR #### [facility] ([id number]) [address] [address] [place] [address] Platelet mean volume (Bld) [Entitic vol] 8.5 fL Normal 7-12 [facility] Comment on above: Performed By: #### 2 4331-1, CBCA, CMP, FEPR, 2275-09, 2132-02, THYR #### [facility] ([id number]) [address] [address] Platelets (Bld) [#/Vol] 234 10*3/uL Normal 150-450 [facility] Comment on above: Performed By: #### 2 4331-1, CBCA, CMP, FEPR, 2275-09, 2132-02, THYR #### [facility] ([id number]) [address] [address] [place] [address] RBC COUNT 4.13 X10E12/L Normal 3.80-5.20 [facility] Comment on above: Performed By: #### 2 4331-1, CBCA, CMP, FEPR, 2275-09, 2132-02, THYR #### [facility] ([id number]) [address] [address] WBC (Bld) [#/Vol] 5.3 10*3/uL Normal 4.0-11.0 [facility] Comment on above: Performed By: #### 2 4331-1, CBCA, CMP, FEPR, 2275-09, 2132-02, THYR #### [facility] ([id number]) [address], [facility] [address] [place] [address] COMPREHENSIVE METABOLIC PANE [facility] 03-15-2024 Albumin [Mass/Vol] 4.4 g/dL Normal 3.2-5.3 [facility] Comment on above: Performed By: #### 2 4331-1, CBCA, CMP, FEPR, 2275-09, 2132-02, THYR #### [facility] ([id number]) [address], [address] [place] [address] ALP [Catalytic activity/Vol] 52 U/L Normal 39-130 [facility] Comment on above: Performed By: #### 2 4331-1, CBCA, CMP, FEPR, 2275-09, 2132-02, THYR #### [facility] ([id number]) [address], [address] [place] [address] ALT [Catalytic activity/Vol] 16 U/L Normal 0-31 [facility] Comment on above: Performed By: #### 2 4331-1, CBCA, CMP, FEPR, 2275-09, 2132-02, THYR #### [facility] ([id number]) [address], [address] [place] [address] Anion gap [Moles/Vol] 9 mmol/L Normal 5-15 [facility] Comment on above: Performed By: #### 2 4331-1, CBCA, CMP, FEPR, 2275-09, 2132-02, THYR #### [facility] ([id number]) [address], [address] [place] [address] AST [Catalytic activity/Vol] 19 U/L Normal 0-41 [facility] Comment on above: Performed By: #### 2 4331-1, CBCA, CMP, FEPR, 2275-09, 2132-02, THYR #### [facility] ([id number]) [address], [address] [place] [address] Bilirubin [Mass/Vol] 0.5 mg/dL Normal 0.3-1.2 [facility] Comment on above: Performed By: #### 2 4331-1, CBCA, CMP, FEPR, 2275-09, 2132-02, THYR #### [facility] ([id number]) [address], [address] [place] [address] Calcium [Mass/Vol] 9.3 mg/dL Normal 8.5-10.5 [facility] Comment on above: Performed By: #### 2 4331-1, CBCA, CMP, FEPR, 2275-09, 2132-02, THYR #### [facility] ([id number]) [address], [address] [place] [address] Chloride [Moles/Vol] 104 mmol/L Normal 98-109 [facility] Comment on above: Performed By: #### 2 4331-1, CBCA, CMP, FEPR, 2275-09, 2132-02, THYR #### [facility] ([id number]) [address], [address] [place] [address] CO2 [Moles/Vol] 27 mmol/L Normal 22-32 [facility] Comment on above: Performed By: #### 2 4331-1, CBCA, CMP, FEPR, 2275-09, 2132-02, THYR #### [facility] ([id number]) [address], [address] [place] [address] Creatinine [Mass/Vol] 0.60 mg/dL Normal 0.40-1.00 [facility] Comment on above: Result Comment: METH OD TRACEABLE TO IDMS STANDARD Performed By: #### 2 4331-1, CBCA, CMP, FEPR, 2275-09, 2132-02, THYR #### [facility] ([id number]) [address], [address] [place] [address] eGFR (CKD-EPI) NON-RACE DEPENDENT >90 Normal >59 [facility] Comment on above: Result Comment: Reported eGFR is based on the CKD-EPI 2020 equation that does not use a race coefficient. Performed By: #### 2 4331-1, CBCA, CMP, FEPR, 2275-09, 2132-02, THYR #### [facility] ([id number]) [address], [address] [place] [address] Glucose [Mass/Vol] 75 mg/dL Normal 65-99 [facility] Comment on above: Performed By: #### 2 4331-1, CBCA, CMP, FEPR, 2275-09, 2132-02, THYR #### [facility] ([id number]) [address], [address] [place] [address] Potassium [Moles/Vol] 4.2 mmol/L Normal 3.5-5.0 [facility] Comment on above: Performed By: #### 2 4331-1, CBCA, CMP, FEPR, 2275-09, 2132-02, THYR #### [facility] ([id number]) [address], [address] [place] [address] Protein [Mass/Vol] 7.5 g/dL Normal 6.0-8.0 [facility] Comment on above: Performed By: #### 2 4331-1, CBCA, CMP, FEPR, 2275-09, 2132-02, THYR #### [facility] ([id number]) [address], [address] [place] [address] Sodium [Moles/Vol] 140 mmol/L Normal 134-146 [facility] Comment on above: Performed By: #### 2 4331-1, CBCA, CMP, FEPR, 2275-09, 2132-02, THYR #### [facility] ([id number]) [address], [address] [place] [address] Urea nitrogen [Mass/Vol] 10 mg/dL Normal 5-23 [facility] Comment on above: Performed By: #### 2 4331-1, CBCA, CMP, FEPR, 6-4, 2132-02, THYR #### [facility] ([id number]) [address], [address] [place] [address] FERRITINon 03-15-2024 Ferritin [Mass/Vol] 55 ng/mL Normal 11-307 [facility] Comment on above: Performed By: #### 2 4331-1, CBCA, CMP, FEPR, 2275-4, 2132-02, THYR #### [facility] ([id number]) [address], [address] [place] [address] IRON PROFILEon 03-15-2024 Iron [Mass/Vol] 126 ug/dL Normal 50-170 [facility] Comment on above: Performed By: #### 2 4331-1, CBCA, CMP, FEPR, 2275-, 2132-02, THYR #### [facility] ([id number]) [address], [address] [place] [address] IRON BINDING 351 ug/dL Normal 250-425 [facility] Comment on above: Performed By: #### 2 4331-1, CBCA, CMP, FEPR, 2275-, 2132-02, THYR #### [facility] ([id number]) [address], [address] [place] [address] IRON SATURATION 36 % SATURATION Normal 15-50 [facility] Comment on above: Performed By: #### 2 4331-1, CBCA, CMP, FEPR, 2275-4, 2132-02, THYR #### [facility] ([id number]) [address], [address] [place] [address] Lipid 1996 panelon Cholesterol [Mass/Vol] 164 mg/dL Normal 150-200 [facility] Comment on above: Performed By: #### 2 4331-1, CBCA, CMP, FEPR, 2276-4, 2132-02, THYR #### [facility] ([id number]) [address], [address] [place] [address] Cholesterol in HDL [Mass/Vol] 57 mg/dL Normal >39 [facility] Comment on above: Result Comment: HDL <40 mg/dL - High Risk HDL > or = 40mg/dL- Desirable HDL >60 mg/dL - Negative Risk Performed By: #### 2 4331-1, CBCA, CMP, FEPR, 2275-09, 2132-02, THYR #### [facility] ([id number]) [address], [address] [place] [address] Cholesterol in LDL [Mass/Vol] 84 mg/dL Normal <130 [facility] Comment on above: Result Comment: LDL <100 mg/dL - Desirable LDL >160 mg/dL - High Risk Performed By: #### 2 4331-1, CBCA, CMP, FEPR, 2275-09, 2132-02, THYR #### [facility] ([id number]) [address], [address] [place] [address] Cholesterol in VLDL [Mass/Vol] 23 mg/dL Normal 0-30 [facility] Comment on above: Performed By: #### 2 4331-1, CBCA, CMP, FEPR, 2275-, 2132-02, THYR #### [facility] ([id number]) [address], [address] [place] [address] CHOLESTEROL:HDL 2.9 Normal 1.0-5.0 [facility] Comment on above: Performed By: #### 2 4331-1, CBCA, CMP, FEPR, 2275-09, 2132-02, THYR #### [facility] ([id number]) [address], [address] [place] [address] Triglyceride [Mass/Vol] 115 mg/dL Normal 27-150 [facility] Comment on above: Performed By: #### 2 4331-1, CBCA, CMP, FEPR, 2275-09, 2132-02, THYR #### [facility] ([id number]) [address], [address] [place] [address] THYROID PROFILEon 03-15-2024 Free T4 [Mass/Vol] 0.74 ng/dL Normal 0.61-1.60 [facility] Comment on above: Performed By: #### 2 4331-1, CBCA, CMP, FEPR, 2275-09, 2132-02, THYR #### [facility] ([id number]) [address], [address] [place] [address] TSH 2.68 uIU/mL Normal 0.49-4.67 [facility] Comment on above: Performed By: #### 2 4331-1, CBCA, CMP, FEPR, 2275-09, 2132-02, THYR #### [facility] ([id number]) [address], [address] [place] [address] VITAMIN B12on 03-15-2024 Cobalamin (Vitamin B12) [Mass/Vol] 537 pg/mL Normal 180-914 [facility] Comment on above: Performed By: #### 2 4331-1, CBCA, CMP, FEPR, 2275-09, 2132-02, THYR #### [facility] ([id number]) [address], [address] [place] [address] POCT urinalysis dipstick onl yon 01-20-2024 Appearance (U) Cloudy [facility] External Poct Urine Bilirubin Negative [facility] External Poct Urine Blood Trace [facility] External Poct Urine Character Malodorous [facility] External Poct Urine Color Dark Yellow [facility] External Poct Urine Glucose Negative [facility] External Poct Urine Ketones Trace [facility] External Poct Urine Leukocyte Esterase Large [facility] External Poct Urine Nitrite Negative [facility] External Poct Urine Ph 5.0 Pr [facility] External Poct Urine Protein 3+ [facility] External Poct Urine Specific [place] 1.000 [facility] External Poct Urine Urobilinogen 0.2 [facility] URINE CULTUREon 01-20-2024 Bacteria identified Cx Nom [...] F TRIMETH/SULFAMETHOXA ZOLE R >=16/304 F Resistant [facility] Comment on above: Performed By: #### 6 30-4 #### [facility] ([id number]) [address] [place] [address], [address] [place] [address] Basic Metabolic Vasquez w/Rfx A1 Con 12-08-2023 GFR/1.73 sq M.predicted MDRD (S/P/Bld) [Vol rate/Area] mL/min/{1.73_m2} Normal [facility] Comment on above: Performed By: #### E BS LIPID, EMP BMP #### [facility] [address] [id number] [facility] Calcium [Mass/volume] in Ser um or PlasmaOrdered By: Janna Escalera on 12-08-2023 Calcium [Mass/Vol] 9.5 mg/dL Normal 8.6-10.[address] [facility] Comment on above: Performed By: #### E BS LIPID, EMP BMP #### [facility] [address] [place] [address] [place] Carbon dioxide, total [Moles /volume] in Serum or PlasmaOrdered By: Janna Escalera on 12-08-2023 CO2 [Moles/Vol] 29.1 mmol/L Normal 21.0-31.0 [facility] Comment on above: Performed By: #### E BS LIPID, EMP BMP #### [facility] [address] [place] [address] [place] Chloride [Moles/volume] in S radha or PlasmaOrdered By: Janna Escalera on 12-08-2023 Chloride [Moles/Vol] 105 mmol/L Normal 98-107 [facility] Comment on above: Performed By: #### E BS LIPID, EMP BMP #### [facility] [address] [place] [address] [place] Cholesterol [Mass/volume] in Serum or PlasmaOrdered By: Janna Escalera on 12-08-2023 Cholesterol [Mass/Vol] 163 mg/dL Normal 140-200 [facility] Comment on above: Chol less than 200 m g/dl low riskChol 201-239 mg/dl borderline riskChol 240 mg/dl and greater high risk Result Comment: Chol less than 200 mg/dl low risk Chol 201-239 mg/dl borderline risk Chol 240 mg/dl and greater high risk Performed By: #### E BS LIPID, EMP BMP #### [facility] [address] [place] [address] [place] Cholesterol in LDL Calc [Mas s/Vol]Ordered By: Janna Escalera on 12-08-2023 Cholesterol in LDL [Mass/Vol] 84 mg/dL 0-100 [facility] Comment on above: LDL ATP III CLASSIFI CATIONLDL less than 100 mg/dL OptimalLDL 100-129 mg/dL Near or above optimalLDL 130-159 mg/dL Borderline highLDL 160-189 mg/dL HighLDL greater than 189 mg/dL Very high Cholesterol in VLDL Calc [Ma ss/Vol]Ordered By: Janna Escalera on 12-08-2023 Cholesterol in VLDL [Mass/Vol] 17 mg/dL [facility] Creatinine [Mass/volume] in Serum or PlasmaOrdered By: Janna Escalera on 12-08-2023 Creatinine [Mass/Vol] 0.69 mg/dL Normal 0.60-1.20 [facility] Comment on above: Performed By: #### E BS LIPID, EMP BMP #### [facility] [address] Glucose [Mass/volume] in Ser um or PlasmaOrdered By: Janna Escalera on 12-08-2023 Glucose [Mass/Vol] 83 mg/dL Normal 70-[address] [facility] Comment on above: Performed By: #### E BS LIPID, EMP BMP #### [facility] [address] Lipid Profileon 12-08-2023 LDL Cholesterol,Calculated 84 mg/dL Normal 0-100 [facility] Comment on above: Result Comment: LDL ATP III CLASSIFICATION LDL less than 100 mg/dL Optimal LDL 100-129 mg/dL Near or above optimal LDL 130-159 mg/dL Borderline high LDL 160-189 mg/dL High LDL greater than 189 mg/dL Very high Performed By: #### E BS LIPID, EMP BMP #### [facility] [address] [id number] [facility] Triglyceride w/Reflex 87 mg/dL Normal 0-149 [facility] Comment on above: Result Comment: TRIG ATP III CLASSIFICATION TRIG less than 150 mg/dL Normal TRIG 150-199 mg/dL Borderline high TRIG 200-500 mg/dL High TRIG greater than 500 mg/dL Very high Standard traceable to the Center for Disease Conrtrol and Prevention (CDC) test method. Performed By: #### E BS LIPID, EMP BMP #### [facility] [address] [place] [address] [facility] VLDL CHOLESTEROL 17 mg/dL Normal [facility] Comment on above: Performed By: #### E BS LIPID, EMP BMP #### [facility] [address] [id number] [facility] No Panel InformationOrdered By: Janna Escalera on 12-08-2023 Estimated GFR (CKD-EPI) > 60.0 mL/Min [facility] Creatinine Clearance (Chem N/A [facility] Potassium [Moles/volume] in Serum or PlasmaOrdered By: Janna Escalera on 12-08-2023 Potassium [Moles/Vol] 3.6 mmol/L Normal 3.5-5.1 [facility] Comment on above: Performed By: #### E BS LIPID, EMP BMP #### [address] Serum or plasma anion gap de terminationOrdered By: Janna Escalera on 12-08-2023 Anion gap [Moles/Vol] 10.5 mmol/L Normal 6.0-15.0 [facility] Comment on above: Performed By: #### E BS LIPID, EMP BMP #### [address] Serum or plasma high density lipoprotein (HDL) cholesterol measurementOrdered By: Janna Escalera on 12-08-2023 Cholesterol in HDL [Mass/Vol] 62 mg/dL Normal 23-92 [facility] Comment on above: HDL CHOL ATP-III CLA SSIFICATION Cardiovascular RiskHDL > or equal to 60 mg/dL LOWHDL < 40 mg/dL HIGH Result Comment: HDL CHOL ATP-III CLASSIFICATION Cardiovascular Risk HDL > or equal to 60 mg/dL LOW HDL < 40 mg/dL HIGH Performed By: #### E BS LIPID, EMP BMP #### [facility] [address] [place] [address] Serum or plasma total choles terol/high density lipoprotein (HDL) cholesterol mass ratOrdered By: Janna Escalera on 12-08-2023 Cholesterol.total/Chol esterol in HDL [Mass ratio] 2.6 {ratio} Normal <5.0 [facility] Comment on above: Result Comment: PERF ORMED BY: [place] [address] PATHOLOGIST [facility] TECHNICIAN CHERYL GEORGE M.D. Performed By: #### E BS LIPID, EMP BMP #### [address] Sodium [Moles/volume] in Ser um or PlasmaOrdered By: Janna Escalera on 12-08-2023 Sodium [Moles/Vol] 141 mmol/L Normal 136-[address] [facility] Comment on above: Performed By: #### E BS LIPID, EMP BMP #### [facility] [address] [id number] [facility] Triglyceride [Mass/volume] i n Serum or PlasmaOrdered By: Janna Escalera on 12-08-2023 Triglyceride [Mass/Vol] 87 mg/dL 0-149 [facility] Comment on above: TRIG ATP III CLASSIF ICATIONTRIG less than 150 mg/dL NormalTRIG 150-199 mg/dL Borderline highTRIG 200-500 mg/dL High TRIG greater than 500 mg/dL Very highStandard traceable to the Center for Disease Conrtrol and Prevention (CDC) test method. Urea nitrogen [Mass/volume] in Serum or PlasmaOrdered By: Janna Escalera on 12-08-2023 Urea nitrogen [Mass/Vol] 14 mg/dL Normal 7-25 [facility] Comment on above: Performed By: #### E BS LIPID, EMP BMP #### [facility] [address] MRI HIP RIGHT W CONTRASTon 1 [...] Tucker Ashby MD 06/08/22 Final result Normal [facility] IR INJ ARTHROGRAM HIP RIGHTo [...] 120.55 uGy cm 2 Views: 3 PROCEDURE: RELIGION DEPARTMENT CHAIR: Elijah Houston This procedure was performed by [...] Eric Rae MD 06/05/22 Final result Normal [facility] Successful fluoroscopic-guided right hip arthrogram. Patient was transferred to MRI for further imaging. [facility] EXAMINATION: FLUOROSCOPIC GUIDED RIGHT HIP ARTHROGRAM, 06/05/2022 2:50 pm COMPARISON: None. HISTORY: ORDERING SYSTEM PROVIDED HISTORY: Tear of right acetabular labrum, initial encounter TECHNOLOGIST PROVIDED HISTORY: r/o R hip labral tear. MRI ordered Is the patient ?->No FLUOROSCOPY DOSE AND TYPE OR TIME AND EXPOSURES: Fluoro time 0.3 minutes DAP 120.55 uGy cm 2 Views: 3 PROCEDURE: RELIGION DEPARTMENT CHAIR: Elijah Houston This procedure was performed by [...] and left the Department in stable condition. [facility] Eric Dukes MD - 06/05/2022 EXAMINATION: FLUOROSCOPIC GUIDED RIGHT HIP ARTHROGRAM, 06/05/2022 2:50 pm COMPARISON: None. HISTORY: ORDERING SYSTEM PROVIDED HISTORY: Tear of right acetabular labrum, initial encounter TECHNOLOGIST PROVIDED HISTORY: r/o R hip labral tear. MRI ordered Is the patient ?->No FLUOROSCOPY DOSE AND TYPE OR TIME AND EXPOSURES: Fluoro time 0.3 minutes DAP 120.55 uGy cm 2 Views: 3 PROCEDURE: RELIGION DEPARTMENT CHAIR: Elijah Houston This procedure was performed by [...] was transferred to MRI for further imaging. [employer] Phone: Radiology Study observation (narrative) [employer] Phone: IR INJ ARTHROGRAM HIP RIGHTO rdered By: Eric Dukes on 06-05-2022 [employer] Phone: 2018 Novel Coronavirus (CoVI D-19), SAMIR LCon 02-20-2021 SARS-CoV-2 (COVID-19) RNA SAMIR+probe Ql (Unsp spec) Not detected Invalid Interpretation Code Not Detected [facility] Comment on above: Result Comment: This nucleic acid amplification test was developed and its performance characteristics determined by [employer]. Nucleic acid amplification tests include RT- PCR [...] detected) result in this assay. Performed At: [address] [id number] Maritza Uribe PhD Ph:[phone] Performed By: #### 6 [id number] #### [facility] (DEFAULT) [address] [place] [address] Consent Formson 02-19-2021 Consent Forms [id number] #1.00OTIFF [facility] Consent Forms [id number] [facility] Resultson 0 02-19-2021 Lab - Toxicology Results [id number] #1.00OTGTIFF [facility] Outside Recordson 02-19-2021 Outside Records [id number] #1.00OTGTIFF [facility] Triage Industrialon 02-20-20 21 Drug Screen Complete Collected Normal [facility] Comment on above: Performed By: #### 1 [id number] #### [facility] (DEFAULT) [address] [place] [address] ED Clinical Summaryon 2020 ED Clinical Summary [facility] ? Urgent Care [address] [place] [address] Clinical Summary PERSON INFORMATION Name: MADDIE RAMAN Age: 25 Years Sex: FEMALE : 1995 MRN: Acct#: Visit Reason: Medical screening exam; [facility] Arrival: 02/18/2021 13:01:04 Discharge: 02/18/2021 14:21:00 LOS: 000 01:20 Check In: 02/18/2021 13:01:04 Checkout: 02/18/2021 14:21:00 Address: [facility] [facility] [address] PCP: Provider, Unlisted PROVIDER INFORMATION Provider Role [...] of instructions given Comment: Normal [facility] ED Patient Summaryon 021 ED Patient Summary [facility] ? Urgent Care [address] [place] [address] PATIENT DISCHARGE INSTRUCTIONS Patient Information Name: MADDIE RAMAN Age: 25 Years Date of : 1995 Reason For Visit: Medical screening exam; [facility] Arrival Time: 02/18/2021 13:01:04 Primary Care Physician: Provider, Unlisted Attending Physician: Adam Moncada PA-C Comment: Patient Education Medication Information: The exam and treatment you received today in the [facility] were for an urgent problem and are not intended as complete care. It is important for you to follow up with a doctor, nurse practitioner, or physician?s court assistant for ongoing care. If your symptoms [...] can reach you if necessary. [facility] has provided you with a complete list of medications post discharge. 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 Any specific questions regarding your chronic medications and dosages should be discussed with your primary care physician(s) and/or pharmacist. Visit Information Visit Diagnosis: Diagnoses This Visit Medical screening exam ([id number]) If you received any narcotics, sedation, or [...] Reason for Visit: Patient arrives to for [place] physical Allergies: Substance Reaction Symptoms Type Comments [...] for Disease Control and Prevention February 2014 [facility] Urgent Care Note- Provideron 02-18-2021 Urgent Care Note- Provider Patient: MADDIE RAMAN Age: 25 years Sex: FEMALE : 1995 Associated Diagnoses: None Author: Adam Moncada PA-C Basic Information Additional information: Chief Complaint from Nursing Triage Note : Chief Complaint 02/18/2021 13:34 EDT Chief Complaint Patient arrives to for [place] physical . History of Present Illness Patient presents for a pre-employment physical. She is cleared for work. Exam is normal. See scanned document. PSYCHIATRIC: Mood and affect appropriate. Health Status Allergies: Allergic Reactions (Selected) No known allergies. Past Medical/ Family/ Social History Medical history: No active or resolved past medical history items have been selected or recorded.. Surgical history: Cholecystectomy ([id number]). Hip replacement ([id number]). delivery ([id number]). Cardiac ablation system ([id number]).. Family history: No family history items have [...] % Oxygen Therapy Room air . Normal [facility] [place] 021 Urgent Care Record [facility] ? Urgent Care [address] [id number] PATIENT DISCHARGE INSTRUCTIONS Patient Information Name: MADDIE RAMAN Age: 25 Years Date of : 1995 Reason [facility]: 02/18/2021 13:01:04 Primary Care Physician: Provider, Unlisted Attending Physician: Adam Moncada PA-C Comment: Visit Diagnosis: Diagnoses This Visit Medical screening exam ([id number]) If you received any narcotics, sedation, or [...] treatment you received today in the [facility] were for an urgent problem and are not intended as complete care. It is important for you to follow up with a doctor, nurse practitioner, or physician?s court assistant for ongoing care. If your symptoms [...] can reach you if necessary. [facility] has provided you with a complete list of medications post discharge. 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 Comment on above: Result Comment: Foll icular phase 0.1 - 0.9 Luteal phase 1.8 - 23.9 Ovulation phase 0.1 - 12.0 First trimester 11.0 - 44.3 Second trimester 25.4 - 83.3 Third trimester 58.7 - 214.0 Postmenopausal 0.0 - 0.1 Performed By: #### P ROSA #### [facility] [address] [place], [place] [address] Sebastian Ordoñez Hgb/Hcton 02-22-2019 Hematocrit (Bld) [Volume fraction] 28.7 % Low 36-46 [facility] Comment on above: Performed By: #### H H #### [facility] [address] [place] [address] Compliance Examiner: Remy Haq DO Hemoglobin (Bld) [Mass/Vol] 9.4 g/dL Low 12.0-16.0 [facility] Comment on above: Performed By: #### H H #### [facility] [address] [place] [address] Compliance Examiner: Remy Haq DO Basic Metabolic Profon 02-20 (cont.) Normal [facility] Comment on above: Result Comment: Aver age GFR for 20-29 years old: 116 mL/min/1.73sq m Chronic Kidney Disease: <60 mL/min/1.73sq m Kidney failure: <15 mL/min/1.73sq m eGFR calculated using average adult body mass. Additional eGFR calculator available at: http://www.ELIKE/multiple_crcl_2012.htm Performed By: #### Joy YUN, BMP #### [facility] [address] [facility] [place] [address] Compliance Examiner: Remy Haq DO Anion gap [Moles/Vol] 13 mmol/L Normal 9-17 [facility] Comment on above: Performed By: #### Joy YUN, BMP #### [facility] [place] [address] Compliance Examiner: Remy Haq DO Calcium [Mass/Vol] 8.8 mg/dL Normal 8.6-10.4 [facility] Comment on above: Performed By: #### Joy YUN, BMP #### [facility] [address] [facility] [place] [address] Compliance Examiner: Remy Haq DO Chloride [Moles/Vol] 103 mmol/L Normal 98-107 [facility] Comment on above: Performed By: #### Joy YUN, BMP #### [facility] [address] [facility] [place] [address] Compliance Examiner: Fanelly, Remy, DO CO2 [Moles/Vol] 25 mmol/L Normal 20-31 [facility] Comment on above: Performed By: #### C BC, BMP #### [facility] [address] [place] [address] Compliance Examiner: Remy Haq DO Creatinine [Mass/Vol] 0.72 mg/dL Normal 0.50-0.90 [facility] Comment on above: Performed By: #### C BC, BMP #### [facility] [address] [place] [address] Compliance Examiner: Remy Haq DO GFR, Amer >60 Normal >60 [facility] Comment on above: Performed By: #### C BC, BMP #### [facility] [address] [place] [address] Compliance Examiner: Remy Haq DO GFR,non Amer >60 Normal >60 [facility] Comment on above: Performed By: #### C JAMA, BMP #### [facility] [address] [place] [address] Compliance Examiner: Remy Haq DO Glucose [Mass/Vol] 96 mg/dL Normal 70-99 [facility] Comment on above: Performed By: #### C BC, BMP #### [facility] [place] [address] Compliance Examiner: Remy Haq DO Potassium [Moles/Vol] 4.0 mmol/L Normal 3.7-5.3 [facility] Comment on above: Performed By: #### C BC, BMP #### [facility] [address] [place] [address] Compliance Examiner: Remy Haq DO Sodium [Moles/Vol] 141 mmol/L Normal 135-144 [facility] Comment on above: Performed By: #### C BC, BMP #### [facility] [address] [facility] [place] [address] Compliance Examiner: Remy Haq DO Urea nitrogen [Mass/Vol] 10 mg/dL Normal 6-20 [facility] Comment on above: Performed By: #### C BC, BMP #### [facility] [address] [place] [address]. [place] [address] Compliance Examiner: Remy Haq DO BUN/CRE Ratio NOT REPORTED Normal 9-20 [facility] Comment on above: Performed By: #### C JAMA, BMP #### [facility] [address] [place] [address]. [place] [address] Compliance Examiner: Remy Haq DO Staging: NOT REPORTED Normal [facility] Comment on above: Performed By: #### C JAMA, BMP #### [facility] [address] [place] [address]. [place] [address] Compliance Examiner: Remy Haq DO CBCon 02-20-2019 Erythrocyte distribution width (RBC) [Ratio] 16.5 % High 11.5-14.9 [facility] Comment on above: Performed By: #### C JAMA, BMP #### [facility] [address] [place] [address] Compliance Examiner: Remy Haq DO Hematocrit (Bld) [Volume fraction] 25.9 % Low 36-46 [facility] Comment on above: Performed By: #### C BC, BMP #### [facility] [address] [place] [address]. [place] [address] Compliance Examiner: Remy Haq DO Hemoglobin (Bld) [Mass/Vol] 8.6 g/dL Low 12.0-16.0 [facility] Comment on above: Performed By: #### C BC, BMP #### [facility] [address] [place] [address] Compliance Examiner: Remy Haq DO MCH (RBC) [Entitic mass] 28.2 pg Normal 26-34 [facility] Comment on above: Performed By: #### Joy YUN, BMP #### [facility] [address] [place] [address] Compliance Examiner: Remy Haq DO MCHC (RBC) [Mass/Vol] 33.0 g/dL Normal 31-37 [facility] Comment on above: Performed By: #### Joy YUN, BMP #### [facility] [address] [place] [address] Compliance Examiner: Remy Haq DO MCV (RBC) [Entitic vol] 85.4 fL Normal 80-100 [facility] Comment on above: Performed By: #### Joy YUN, BMP #### [facility] [address] [place] [address] Compliance Examiner: Remy Haq DO Platelet mean volume (Bld) [Entitic vol] 6.7 fL Normal 6.0-12.0 [facility] Comment on above: Performed By: #### Joy YUN, BMP #### [facility] [address] [place] [address] Compliance Examiner: Remy Haq DO Platelets (Bld) [#/Vol] 419 10*3/uL Normal 150-450 [facility] Comment on above: Performed By: #### Joy YUN, BMP #### [facility] [address] [place] [address] Compliance Examiner: Remy Haq DO RBC (Bld) [#/Vol] 3.03 10*6/uL Low 4.0-5.2 [facility] Comment on above: Performed By: #### Joy YUN, BMP #### [facility] [address] [place], [place] [address]. [place] [address] Compliance Examiner: Remy Haq DO WBC (Bld) [#/Vol] 6.3 10*3/uL Normal 3.5-11.0 [facility] Comment on above: Performed By: #### C BC, BMP #### [facility] [address] [place] [address]. [place] [address] Compliance Examiner: Remy Haq DO NRBC Automated NOT REPORTED Normal [facility] Comment on above: Performed By: #### C BC, BMP #### [facility] [address] [place] [address]. [place] [address] Compliance Examiner: Remy Haq DO Hgb/Hcton 02-20-2019 Hematocrit (Bld) [Volume fraction] 29.6 % Low 36-46 [facility] Comment on above: Performed By: #### H H #### [facility] [address] [place] [address]. [place] [address] Compliance Examiner: Remy Haq DO Hemoglobin (Bld) [Mass/Vol] 9.7 g/dL Low 12.0-16.0 [facility] Comment on above: Performed By: #### H H #### [facility] [address] [place] [address] Compliance Examiner: Remy Haq DO CBCon 02-19-2019 Erythrocyte distribution width (RBC) [Ratio] 16.6 % High 11.5-14.9 [facility] Comment on above: Performed By: #### C BC #### [facility] [address] [place] [address]. [place] [address] Compliance Examiner: Remy Haq DO Hematocrit (Bld) [Volume fraction] 23.2 % Low 36-46 [facility] Comment on above: Performed By: #### C BC #### [facility] [address] [place] [address] Compliance Examiner: Remy Haq DO Hemoglobin (Bld) [Mass/Vol] 7.6 g/dL Low 12.0-16.0 [facility] Comment on above: Performed By: #### C BC #### [facility] [address] [place] [address] Compliance Examiner: Remy Haq DO MCH (RBC) [Entitic mass] 27.8 pg Normal 26-34 [facility] Comment on above: Performed By: #### C BC #### [facility] [address] [place] [address] Compliance Examiner: Remy Haq DO MCHC (RBC) [Mass/Vol] 32.7 g/dL Normal 31-37 [facility] Comment on above: Performed By: #### C BC #### [facility] [address] [place] [address] Compliance Examiner: Remy Haq DO MCV (RBC) [Entitic vol] 85.0 fL Normal 80-100 [facility] Comment on above: Performed By: #### C BC #### [facility] [address] [place] [address] Compliance Examiner: Remy Haq DO Platelet mean volume (Bld) [Entitic vol] 6.5 fL Normal 6.0-12.0 [facility] Comment on above: Performed By: #### C BC #### [facility] [address] [place] [address] Compliance Examiner: Remy Haq DO Platelets (Bld) [#/Vol] 444 10*3/uL Normal 150-450 [facility] Comment on above: Performed By: #### C BC #### [facility] [address] [place] [address] Compliance Examiner: Remy Haq DO RBC (Bld) [#/Vol] 2.73 10*6/uL Low 4.0-5.2 [facility] Comment on above: Performed By: #### C BC #### [facility] [address] [place] [address] Compliance Examiner: Remy Haq DO WBC (Bld) [#/Vol] 5.1 10*3/uL Normal 3.5-11.0 [facility] Comment on above: Performed By: #### C BC #### [facility] [address] [place] [address] Compliance Examiner: Remy Haq DO NRBC Automated NOT REPORTED Normal [facility] Comment on above: Performed By: #### C BC #### [facility] [address] [place] [address] Compliance Examiner: Remy Haq DO Type + Crossmatchon 02-20-20 19 Type + Crossmatch Sample Expiration 02/22/2019 Arm Band Number [id number] ABO/Rh(D) A POSITIVE Antibody Screen NEGATIVE Blood Bank Comment Pt's ABRh confirmed as A POS:402 Results Verified BLANCHE, Polyspecific NEGATIVE BLANCHE, Anti-IgG [place] Serum NEGATIVE Antibody Ident Anti-[place](A) Present Unit Number [id number] Blood Component Type Leukocyte Reduced Red Cell Unit Division 00 Status of Unit TRANSFUSED Transfusion Status OK TO TRANSFUSE Crossmatch Result COMPATIBLE [facility] Comment on above: Performed By: #### T YX #### [facility] [address] [place] [address] Compliance Examiner: Remy Haq DO Basic Metab w/rfx MGon 02-16 (cont.) Normal [facility] Comment on above: Result Comment: Aver age GFR for 20-29 years old: 116 mL/min/1.73sq m Chronic Kidney Disease: <60 mL/min/1.73sq m Kidney failure: <15 mL/min/1.73sq m eGFR calculated using average adult body mass. Additional eGFR calculator available at: http://www.[employer].Nuvosun/multiple_crcl_2012.htm Performed By: #### B MPX, CBC #### [facility] [address] [facility] [place] [address] Compliance Examiner: Remy Haq DO Anion gap [Moles/Vol] 11 mmol/L Normal 9-17 [facility] Comment on above: Performed By: #### B MPX, CBC #### [facility] [address] [facility] [place] [address] Compliance Examiner: Remy Haq DO Calcium [Mass/Vol] 8.6 mg/dL Normal 8.6-10.4 [facility] Comment on above: Performed By: #### B MPX, CBC #### [facility] [place] [address] Compliance Examiner: Remy Haq DO Chloride [Moles/Vol] 100 mmol/L Normal 98-107 [facility] Comment on above: Performed By: #### B MPX, CBC #### [facility] [place] [address] Compliance Examiner: Remy Haq DO CO2 [Moles/Vol] 26 mmol/L Normal 20-31 [facility] Comment on above: Performed By: #### B MPX, CBC #### [facility] [place] [address] Compliance Examiner: Remy Haq DO Creatinine [Mass/Vol] 0.62 mg/dL Normal 0.50-0.90 [facility] Comment on above: Performed By: #### B MPX, CBC #### [facility] [place] [address] Compliance Examiner: Remy Haq DO GFR, Amer >60 Normal >60 [facility] Comment on above: Performed By: #### B MPX, CBC #### [facility] [address] [place] [address] Compliance Examiner: Remy Haq DO GFR,non Amer >60 Normal >60 [facility] Comment on above: Performed By: #### B MPX, CBC #### [facility] [address] [place] [address] Compliance Examiner: Remy Haq DO Glucose [Mass/Vol] 95 mg/dL Normal 70-99 [facility] Comment on above: Performed By: #### B MPX, CBC #### [facility] [address] [place] [address] Compliance Examiner: Remy Haq DO Potassium [Moles/Vol] 4.2 mmol/L Normal 3.7-5.3 [facility] Comment on above: Performed By: #### B MPX, CBC #### [facility] [address] [place] [address] Compliance Examiner: Remy Haq DO Sodium [Moles/Vol] 137 mmol/L Normal 135-144 [facility] Comment on above: Performed By: #### B MPX, CBC #### [facility] [address] [place] [address] Compliance Examiner: Remy Haq DO Urea nitrogen [Mass/Vol] 11 mg/dL Normal 6-20 [facility] Comment on above: Performed By: #### B MPX, CBC #### [facility] [address] [place] [address] Compliance Examiner: Remy Haq DO BUN/CRE Ratio NOT REPORTED Normal 9-20 [facility] Comment on above: Performed By: #### B MPX, CBC #### [facility] [place] [address] Compliance Examiner: Remy Haq DO Staging: NOT REPORTED Normal [facility] Comment on above: Performed By: #### B MPX, CBC #### [facility] [address] [place] [address] Compliance Examiner: Remy Haq DO CBCon 02-16-2019 Erythrocyte distribution width (RBC) [Ratio] 16.3 % High 11.5-14.9 [facility] Comment on above: Performed By: #### B MPX, CBC #### [facility] [address] [place] [id number] Compliance Examiner: Remy Haq DO Hematocrit (Bld) [Volume fraction] 22.4 % Low 36-46 [facility] Comment on above: Performed By: #### B MPX, CBC #### [facility] [address] [place] [address] Compliance Examiner: Remy Haq DO Hemoglobin (Bld) [Mass/Vol] 7.6 g/dL Low 12.0-16.0 [facility] Comment on above: Performed By: #### B MPX, CBC #### [facility] [address] [place] [address] Compliance Examiner: Remy Haq DO MCH (RBC) [Entitic mass] 29.4 pg Normal 26-34 [facility] Comment on above: Performed By: #### B MPX, CBC #### [facility] [address] [place] [address] Compliance Examiner: Remy Haq DO MCHC (RBC) [Mass/Vol] 33.8 g/dL Normal 31-37 [facility] Comment on above: Performed By: #### B MPX, CBC #### [facility] [address] [place] [address] Compliance Examiner: Remy Haq DO MCV (RBC) [Entitic vol] 87.1 fL Normal 80-100 [facility] Comment on above: Performed By: #### B MPX, CBC #### [facility] [address] [place] [address] Compliance Examiner: Remy Haq DO Platelet mean volume (Bld) [Entitic vol] 6.4 fL Normal 6.0-12.0 [facility] Comment on above: Performed By: #### B MPX, CBC #### [facility] [place] [address] Compliance Examiner: Remy Haq DO Platelets (Bld) [#/Vol] 503 10*3/uL High 150-450 [facility] Comment on above: Performed By: #### B MPX, CBC #### [facility] [place] [address] Compliance Examiner: Remy Haq DO RBC (Bld) [#/Vol] 2.57 10*6/uL Low 4.0-5.2 [facility] Comment on above: Performed By: #### B MPX, CBC #### [facility] [address] [place] [address] Compliance Examiner: Remy Haq DO WBC (Bld) [#/Vol] 7.5 10*3/uL Normal 3.5-11.0 [facility] Comment on above: Performed By: #### B MPX, CBC #### [facility] [place] [address] Compliance Examiner: Remy Haq DO NRBC Automated NOT REPORTED Normal [facility] Comment on above: Performed By: #### B MPX, CBC #### [facility] [address] [place] [id number] Compliance Examiner: Remy Haq DO Basic Metabolic Panel w/ Ref savanah to MGon 02-15-2019 Anion gap [Moles/Vol] 14 mmol/L 9 - 17 mmol/L [place] Bun/Cre Ratio NOT REPORTED [place] Calcium [Mass/Vol] 8.4 mg/dL Low 8.6 - 10. 4 mg/dL [place] Chloride [Moles/Vol] 102 mmol/L 98 - 10 7 mmol/L [place] CO2 [Moles/Vol] 24 mmol/L 20 - 31 mmol/L [place] Creatinine [Mass/Vol] 0.57 mg/dL 0.5 - 0.9 mg/dL [place] GFR >60 >60 mL/min [place] GFR Non- >60 >60 mL/min [place] GFR/1.73 sq M predicted among non-blacks MDRD (S/P/Bld) [Vol rate/Area] [place] Comment on above: Average GFR for 20-2 9 years old: 116 mL/min/1.73sq m Chronic Kidney Disease: <60 mL/min/1.73sq m Kidney failure: <15 mL/min/1.73sq m eGFR calculated using average adult body mass. Additional eGFR calculator available at: http://www.[employer].Nuvosun/multiple_crcl_2012.htm GFR/1.73 sq M predicted among non-blacks MDRD (S/P/Bld) [Vol rate/Area] NOT REPORTED [place] Glucose [Mass/Vol] 106 mg/dL High 70 - 99 mg/dL [place] Interpretation and review of laboratory results Abnormal [place] Potassium [Moles/Vol] 4.0 mmol/L 3.7 - 5.3 mmol/L [place] Sodium [Moles/Vol] 140 mmol/L 135 - 144 mmol/L [place] Urea nitrogen [Mass/Vol] 11 mg/dL 6 - 20 mg/dL [place] CBC WITH AUTO DIFFERENTIALon 02-15-2019 Basophils (Bld) [#/Vol] 0.06 10*3/uL [place] Basophils/100 WBC (Bld) 1 % 0 - 2 % [place] Differential Type NOT REPORTED [place] Eosinophils (Bld) [#/Vol] 0.33 10*3/uL [place] Eosinophils/100 WBC (Bld) 5 % High 1 - 4 % [place] Erythrocyte distribution width (RBC) [Ratio] 15.3 % High 11.8 - 14.4 % [place] Hematocrit (Bld) [Volume fraction] 24.9 % Low 36.3 - 47.1 % [place] Hemoglobin (Bld) [Mass/Vol] 7.5 g/dL Low 11.9 - 15.1 g/dL [place] Immature granulocytes (Bld) [#/Vol] 1 % High 0 [place] Immature granulocytes (Bld) [#/Vol] 0.10 10*3/uL [place] Interpretation and review of laboratory results Abnormal [place] Lymphocytes (Bld) [#/Vol] 1.93 10*3/uL [place] Lymphocytes/100 WBC (Bld) 27 % 24 - 43 % [place] MCH (RBC) [Entitic mass] 28.2 pg 25.2 - 33.5 pg [place] MCHC (RBC) [Mass/Vol] 30.1 g/dL 28.4 - 34.8 g/dL [place] MCV (RBC) [Entitic vol] 93.6 fL 82.6 - 102.9 fL [place] Monocytes (Bld) [#/Vol] 0.60 10*3/uL [place] Monocytes/100 WBC (Bld) 8 % 3 - 12 % [place] Platelet mean volume (Bld) [Entitic vol] 9.0 fL 8.1 - 13.5 fL [place] Platelets (Bld) [#/Vol] 458 10*3/uL High [place] Platelets (Bld) [#/Vol] NOT REPORTED [place] RBC (Bld) [#/Vol] 2.66 10*6/uL Low 3.95 - 5.1 1 m/uL [place] RBC morphology finding Nom (Bld) ANISOCYTOSIS PRESENT [place] Segmented neutrophils/100 WBC (Bld) 58 % 36 - 65 % [place] Segs Absolute 4.19 [place], [place] WBC (Bld) [#/Vol] 7.2 10*3/uL [place] WBC (Bld) [#/Vol] 0.0 10*3/uL 0.0 per 10 0 WBC [place] WBC Morphology NOT REPORTED [place] Basic Metabolic Panel w/ Ref savanah to MGon 02-13-2019 Anion gap [Moles/Vol] 13 mmol/L 9 - 17 mmol/L [place] Bun/Cre Ratio NOT REPORTED [place] Calcium [Mass/Vol] 8.5 mg/dL Low 8.6 - 10. 4 mg/dL [place] Chloride [Moles/Vol] 105 mmol/L 98 - 10 7 mmol/L [place] CO2 [Moles/Vol] 23 mmol/L 20 - 31 mmol/L [place] Creatinine [Mass/Vol] 0.46 mg/dL Low 0.5 - 0.9 mg/dL [place] GFR >60 >60 mL/min [place] GFR Non- >60 >60 mL/min [place] GFR/1.73 sq M predicted among non-blacks MDRD (S/P/Bld) [Vol rate/Area] NOT REPORTED [place] GFR/1.73 sq M predicted among non-blacks MDRD (S/P/Bld) [Vol rate/Area] [place] Comment on above: Average GFR for 20-2 9 years old: 116 mL/min/1.73sq m Chronic Kidney Disease: <60 mL/min/1.73sq m Kidney failure: <15 mL/min/1.73sq m eGFR calculated using average adult body mass. Additional eGFR calculator available at: http://www.[employer]KE/multiple_crcl_2012.htm Glucose [Mass/Vol] 86 mg/dL 70 - 99 mg/dL [place] Interpretation and review of laboratory results Abnormal [place] Potassium [Moles/Vol] 4.3 mmol/L 3.7 - 5.3 mmol/L [place] Sodium [Moles/Vol] 141 mmol/L 135 - 144 mmol/L [place] Urea nitrogen [Mass/Vol] 9 mg/dL 6 - 20 mg/dL [place] CBC WITH AUTO DIFFERENTIALon 02-13-2019 Basophils (Bld) [#/Vol] 0.06 10*3/uL [place] Basophils/100 WBC (Bld) 1 % 0 - 2 % [place] Differential Type NOT REPORTED [place] Eosinophils (Bld) [#/Vol] 0.40 10*3/uL [place] Eosinophils/100 WBC (Bld) 5 % High 1 - 4 % [place] Erythrocyte distribution width (RBC) [Ratio] 14.8 % High 11.8 - 14.4 % [place] Hematocrit (Bld) [Volume fraction] 25.0 % Low 36.3 - 47.1 % [place] Hemoglobin (Bld) [Mass/Vol] 7.4 g/dL Low 11.9 - 15.1 g/dL [place] Immature granulocytes (Bld) [#/Vol] 2 % High 0 [place] Immature granulocytes (Bld) [#/Vol] 0.14 10*3/uL [place] Interpretation and review of laboratory results Abnormal [place] Lymphocytes (Bld) [#/Vol] 2.18 10*3/uL [place] Lymphocytes/100 WBC (Bld) 25 % 24 - 43 % [place] MCH (RBC) [Entitic mass] 27.1 pg 25.2 - 33.5 pg [place] MCHC (RBC) [Mass/Vol] 29.6 g/dL 28.4 - 34.8 g/dL [place] MCV (RBC) [Entitic vol] 91.6 fL 82.6 - 102.9 fL [place] Monocytes (Bld) [#/Vol] 0.66 10*3/uL [place] Monocytes/100 WBC (Bld) 8 % 3 - 12 % [place] Platelet mean volume (Bld) [Entitic vol] 8.9 fL 8.1 - 13.5 fL [place] Platelets (Bld) [#/Vol] 440 10*3/uL [place] Platelets (Bld) [#/Vol] NOT REPORTED [place] RBC (Bld) [#/Vol] 2.73 10*6/uL Low 3.95 - 5.1 1 m/uL [place] RBC morphology finding Nom (Bld) ANISOCYTOSIS PRESENT [place] Segmented neutrophils/100 WBC (Bld) 61 % 36 - 65 % [place] Segs Absolute 5.37 [place] WBC (Bld) [#/Vol] 0.0 10*3/uL 0.0 per 10 0 WBC [place] WBC (Bld) [#/Vol] 8.8 10*3/uL [place] WBC Morphology NOT REPORTED [place] ECHO Complete 2D W Doppler W Coloron 02-13-2019 Transthoracic Echocardiography Report (TTE) Patient Name CECI PERKINS Date of Study 02/13/2019 C Date of 1995 Gender Female Age 23 year(s) Race Unknown Room Number 0240 Height: 65 inch, 165.1 cm Corporate ID [id number] Weight: 301 pounds, 136.5 kg # Patient Acct [id number] BSA: 2.35 m^2 BMI: 50.09 kg/m^2 # MR # [id number] Breeding Manager Kaylen Jasso Interpreting Physician Anthony Keating Fellow [...] seen. Signature Electronically signed by Anthony Keating([facility] on 02/13/2019 02:00 PM FINDINGS [...] Wall E/E':5.8 [facility], [place] Tamir, Mhpn Incoming Cardio Results From [facility] - 02/13/2019 2:01 PM EDT Transthoracic Echocardiography Report (TTE) Patient Name CECI PERKINS Date of Study 02/13/2019 C Date of 1995 Gender Female Age 23 year(s) Race Unknown Room Number 0240 Height: 65 inch, 165.1 cm Corporate ID [id number] Weight: 301 pounds, 136.5 kg # Patient Acct [id number] BSA: 2.35 m^2 BMI: 50.09 kg/m^2 # MR # [id number] Breeding Manager Kaylen Jasso Interpreting Physician Anthony Keating Fellow [...] seen. Signature - Electronically signed by Anthony Keating([facility] physician) on 02/13/2019 02:00 PM - - [...] Wall E/E':5.8 [facility] EKG 12 [place] 02-11-2019 Atrial Rate 99 BPM [facility] P Stanley 69 degrees [facility] P-R Interval 136 ms [facility], [place] Q-T Interval 344 ms [facility] QRS Duration 80 ms [facility] QTc Calculation (Bazett) 441 ms [facility] R Stanley 16 degrees [facility] T Stanley 4 degrees [facility] Ventricular Rate 99 BPM [facility], [place] Tamir, Mhpn Incoming Ekg Results [place] [facility] [place] 02/11/2019 11:00 AM EDT Normal sinus rhythm Cannot rule out Anterior infarct , age undetermined Abnormal ECG When compared with ECG of 31-JAN-2019 19:55, No significant change was found [place] Normal sinus rhythm Cannot rule out Anterior infarct , age undetermined Abnormal ECG When compared with ECG of 31-JAN-2019 19:55, No significant change was found [place] HEMOGLOBIN AND HEMATOCRIT, B LOODon 02-11-2019 Hematocrit (Bld) [Volume fraction] 27.0 % Low 36.3 - 47.1 % [place] Hemoglobin (Bld) [Mass/Vol] 8.3 g/dL Low 11.9 - 15.1 g/dL [place] Interpretation and review of laboratory results Abnormal [place] Microscopic Urinalysison Amorphous, UA NOT REPORTED None [place] Bacteria, UA NOT REPORTED None [place], [place] Casts UA [place] Crystals UA NOT REPORTED None /HPF [place], [place] Epithelial Cells UA 0 TO 2 [place] Mucus, UA NOT REPORTED None [place], [place] Other Observations UA NOT REPORTED NOT REQ. M [place], [place] RBC (U) [#/Vol] 5 TO 10 [place], [place] Comment on above: Reference range defi xiomy for non-centrifuged specimen. Renal Epithelial, Urine NOT REPORTED 0 /HPF [place], [place] Trichomonas, UA NOT REPORTED None [employer] WBC, UA TOO NUMEROUS TO COUNT [place] Yeast, UA NOT REPORTED None [place], [place] - [place] URINALYSISon 02-11-2019 Bilirubin Urine Negative NEGATIVE [place] Color, UA YELLOW YELLOW [place], [place] Glucose, Ur Negative NEGATIVE [place] Interpretation and review of laboratory results Abnormal [place] Ketones Ql (U) Negative NEGATIVE [place] Leukocyte esterase Test strip Ql (U) LARGE Abnormal NEGATIVE [place] Nitrite, Urine Negative NEGATIVE [place] pH, UA 5.0 [place] Protein (U) [Mass/Vol] Negative NEGATIVE [facility] [place] [place] Specific [place], UA 1.013 [place] Turbidity UA CLOUDY Abnormal CLEAR [place], [place] Urinalysis Comments NOT REPORTED [place] Urine Hgb MODERATE Abnormal NEGATIVE [place] Urobilinogen, Urine Normal Normal [place] HEMOGLOBIN AND HEMATOCRIT, B LOODon 02-10-2019 Hematocrit (Bld) [Volume fraction] 22.5 % Low 36.3 - 47.1 % [place] Hemoglobin (Bld) [Mass/Vol] 6.8 g/dL Critically low 11.9 - 15.1 g/dL [place] Interpretation and review of laboratory results Abnormal [place] TYPE AND SCREENon 02-10-2019 ABO/Rh Positive [place], [place] Arm Band Number [id number] [place], [place] Blood product type Nom (BPU) Leukocyte Reduced Red Cell [place] Crossmatch Result COMPATIBLE [facility] [place] Dispense Status TRANSFUSED [place] Expiration Date 02/10/2019 [place] Transfusion Status OK TO TRANSFUSE M [place], [place] Unit Divison 0 [place], [place] Unit Number [id number] [place] CT PELVIS WO CONTRAST Additi onal Contrast? Noneon 02-09-2019 Tamir, Mhpn Incoming Radiant Results From [employer] - 02/09/2019 12:47 PM EDT EXAMINATION: CT [...] to the inferior pubic ramus. [facility], [place] EXAMINATION: CT OF THE PELVIS WITHOUT CONTRAST [...] and small foci of air. [facility], [facility] 1. Improved alignment of the right posterior wall acetabular fracture status post ORIF. 2. Small intra-articular right hip loose bodies. 3. The long screw extends anterior to the inferior pubic ramus. [facility] HEMOGLOBIN AND HEMATOCRIT, B LOODon 02-09-2019 Hematocrit (Bld) [Volume fraction] 19.2 % Low 36.3 - 47.1 % [place] Hemoglobin (Bld) [Mass/Vol] 5.9 g/dL Critically low 11.9 - 15.1 g/dL [place], [place] Comment on above: TEST CONFIRMED Interpretation and review of laboratory results Abnormal [place] Hematocrit (Bld) [Volume fraction] 21.2 % Low 36.3 - 47.1 % [place] Hemoglobin (Bld) [Mass/Vol] 6.6 g/dL Critically low 11.9 - 15.1 g/dL [place] Comment on above: TEST CONFIRMED Interpretation and review of laboratory results Abnormal [place] Hematocrit (Bld) [Volume fraction] 23.6 % Low 36.3 - 47.1 % [place] Hemoglobin (Bld) [Mass/Vol] 7.2 g/dL Low 11.9 - 15.1 g/dL [place] Interpretation and review of laboratory results Abnormal [place] CV HGB/HCTon 02-08-2019 Hematocrit (Bld) [Volume fraction] 24.4 % [place] Hemoglobin (Bld) [Mass/Vol] 7.8 g/dL gm/dL [place] POCT urine pregnancyon 02-08 Beta HCG ( test) Ql (U) Negative NEGATIVE [place] Comment on above: Specimens with hCG [...] 02-08-2019 Tamir, pn Incoming Radiant Results From [employer] - 02/08/2019 1:24 PM EDT EXAMINATION: THREE XRAY VIEWS OF THE RIGHT FOOT 02/08/2019 1:12 pm COMPARISON: Right ankle radiographs February 01, 2019 HISTORY: ORDERING SYSTEM PROVIDED HISTORY: Trauma/Fracture TECHNOLOGIST PROVIDED HISTORY: Trauma/Fracture FINDINGS: No fracture or dislocation. IMPRESSION: No acute osseous abnormality [facility] BLAINE KELSEY EXAMINATION: THREE XRAY VIEWS OF THE RIGHT FOOT 02/08/2019 1:12 pm COMPARISON: Right ankle radiographs February 01, 2019 HISTORY: ORDERING SYSTEM PROVIDED HISTORY: Trauma/Fracture TECHNOLOGIST PROVIDED HISTORY: Trauma/Fracture FINDINGS: No fracture or dislocation. [facility] BLAINE KELSEY No acute osseous abnormality [facility] P[facility] (MIN 3 VIEWS)on EXAMINATION: ONE XRAY VIEW OF THE PELVIS 02/08/2019 12:48 pm COMPARISON: 01/31/2019 HISTORY: ORDERING SYSTEM PROVIDED HISTORY: AP,Judets. Post op pacu TECHNOLOGIST PROVIDED HISTORY: AP,Judets. Post op pacu FINDINGS: Status post internal fixation of the right acetabulum. Anatomic alignment. No hardware complications. [facility] Incoming Radiant Results From [employer] [...] right acetabulum [facility] Anatomic alignment status post internal fixation of the right acetabulum [facility] Incoming Radiant Results From [employer] [...] fluoroscopic image of pelvis as described above. [facility] BLAINE KELSEY EXAMINATION: ONE XRAY VIEW OF THE PELVIS 02/08/2019 12:39 pm COMPARISON: January 31, 2019 HISTORY: ORDERING SYSTEM PROVIDED HISTORY: intra op TECHNOLOGIST PROVIDED HISTORY: intra op FINDINGS: Intraoperative fluoroscopic image of pelvis demonstrates ORIF of right acetabular fracture with plate and screws, likely in gross anatomic alignment. A Crawley catheter is in place. [place] Intraoperative fluoroscopic image of pelvis as described above. [place] XR WRIST LEFT (MIN 3 VIEWS)o n 02-08-2019 1. Overlying cast/splint material limits evaluation of fine osseous detail. 2. Anatomic alignment of known transversely oriented nondisplaced distal left radius metaphyseal fracture after reduction. 3. No superimposed acute osseous abnormality identified. 4. Soft tissue swelling about the left wrist/distal left forearm. [place] Tamir, Mhpn Incoming Radiant Results From [employer] - 02/08/2019 6:06 PM EDT EXAMINATION: 3 [...] swelling about the left wrist/distal left forearm. [place] EXAMINATION: 3 XRAY VIEWS OF THE [...] the left wrist and distal left forearm. [place] BASIC METABOLIC PANELon 08-2 Anion gap [Moles/Vol] 12 mmol/L 9 17 mmol/L [place] Bun/Cre Ratio NOT REPORTED [place] Calcium [Mass/Vol] 8.5 mg/dL Low 8.6 - 10. 4 mg/dL [place] Chloride [Moles/Vol] 102 mmol/L 98 - 10 7 mmol/L [place] CO2 [Moles/Vol] 24 mmol/L 20 - 31 mmol/L [place] Creatinine [Mass/Vol] 0.54 mg/dL 0.5 - 0.9 mg/dL [place] GFR >60 >60 mL/min [place] GFR Non- >60 >60 mL/min [place] GFR/1.73 sq M predicted among non-blacks MDRD (S/P/Bld) [Vol rate/Area] NOT REPORTED [place] GFR/1.73 sq M predicted among non-blacks MDRD (S/P/Bld) [Vol rate/Area] [place] Comment on above: Average GFR for 20-2 9 years old: 116 mL/min/1.73sq m Chronic Kidney Disease: <60 mL/min/1.73sq m Kidney failure: <15 mL/min/1.73sq m eGFR calculated using average adult body mass. Additional eGFR calculator available at: http://www.ELIKE/multiple_crcl_2012.htm Glucose [Mass/Vol] 95 mg/dL 70 - 99 mg/dL [place] Interpretation and review of laboratory results Abnormal [place] Potassium [Moles/Vol] 4.6 mmol/L 3.7 - 5.3 mmol/L [place] Sodium [Moles/Vol] 138 mmol/L 135 - 144 mmol/L [place] Urea nitrogen [Mass/Vol] 14 mg/dL 6 - 20 mg/dL [place] BLOOD BANK SPECIMENon 2018 Blood Bank Specimen NOT REPORTED [place] CBCon 02-07-2019 Erythrocyte distribution width (RBC) [Ratio] 13.5 % 11.8 - 14.4 % [place] Hematocrit (Bld) [Volume fraction] 28.1 % Low 36.3 - 47.1 % [place] Hemoglobin (Bld) [Mass/Vol] 8.4 g/dL Low 11.9 - 15.1 g/dL [place] Interpretation and review of laboratory results Abnormal [place] MCH (RBC) [Entitic mass] 26.7 pg 25.2 - 33.5 pg [place] MCHC (RBC) [Mass/Vol] 29.9 g/dL 28.4 - 34.8 g/dL [place] MCV (RBC) [Entitic vol] 89.2 fL 82.6 - 102.9 fL [place] Platelet mean volume (Bld) [Entitic vol] 8.6 fL 8.1 - 13.5 fL [place] Platelets (Bld) [#/Vol] 555 10*3/uL High [place] RBC (Bld) [#/Vol] 3.15 10*6/uL Low 3.95 - 5.1 1 m/uL [place] WBC (Bld) [#/Vol] 0.0 10*3/uL 0.0 per 10 0 WBC [place] WBC (Bld) [#/Vol] 8.0 10*3/uL [place] HEMOGLOBIN AND HEMATOCRIT, B LOODon 02-05-2019 Hematocrit (Bld) [Volume fraction] 28.8 % Low 36.3 - 47.1 % [place] Hemoglobin (Bld) [Mass/Vol] 8.6 g/dL Low 11.9 - 15.1 g/dL [place] Interpretation and review of laboratory results Abnormal [place] Basic Metabolic Panel w/ Ref savanah to MGon 02-04-2019 Anion gap [Moles/Vol] 11 mmol/L 9 - 17 mmol/L [place] Bun/Cre Ratio NOT REPORTED [place] Calcium [Mass/Vol] 8.5 mg/dL Low 8.6 - 10. 4 mg/dL [place] Chloride [Moles/Vol] 108 mmol/L High 98 - 10 7 mmol/L [place] CO2 [Moles/Vol] 23 mmol/L 20 - 31 mmol/L [place] Creatinine [Mass/Vol] 0.52 mg/dL 0.5 - 0.9 mg/dL [place] GFR >60 >60 mL/min [place] GFR Non- >60 >60 mL/min [place] GFR/1.73 sq M predicted among non-blacks MDRD (S/P/Bld) [Vol rate/Area] NOT REPORTED [place] GFR/1.73 sq M predicted among non-blacks MDRD (S/P/Bld) [Vol rate/Area] [place] Comment on above: Average GFR for 20-2 9 years old: 116 mL/min/1.73sq m Chronic Kidney Disease: <60 mL/min/1.73sq m Kidney failure: <15 mL/min/1.73sq m eGFR calculated using average adult body mass. Additional eGFR calculator available at: http://www.[employer].Nuvosun/multiple_crcl_2012.htm Glucose [Mass/Vol] 93 mg/dL 70 - 99 mg/dL [place] Interpretation and review of laboratory results Abnormal [place] Potassium [Moles/Vol] 4.7 mmol/L 3.7 - 5.3 mmol/L [place] Sodium [Moles/Vol] 142 mmol/L 135 - 144 mmol/L [place] Urea nitrogen [Mass/Vol] 9 mg/dL 6 - 20 mg/dL [place] CBCon 02-04-2019 Erythrocyte distribution width (RBC) [Ratio] 13.6 % 11.8 - 14.4 % [place] Hematocrit (Bld) [Volume fraction] 28.6 % Low 36.3 - 47.1 % [place] Hemoglobin (Bld) [Mass/Vol] 8.4 g/dL Low 11.9 - 15.1 g/dL [place] Interpretation and review of laboratory results Abnormal [place] MCH (RBC) [Entitic mass] 27.5 pg 25.2 - 33.5 pg [place] MCHC (RBC) [Mass/Vol] 29.4 g/dL 28.4 - 34.8 g/dL [place] MCV (RBC) [Entitic vol] 93.5 fL 82.6 - 102.9 fL [place] Platelet mean volume (Bld) [Entitic vol] 9.1 fL 8.1 - 13.5 fL [place] Platelets (Bld) [#/Vol] 622 10*3/uL High [place] RBC (Bld) [#/Vol] 3.06 10*6/uL Low 3.95 - 5.1 1 m/uL [place] WBC (Bld) [#/Vol] 8.2 10*3/uL [place] WBC (Bld) [#/Vol] 0.0 10*3/uL 0.0 per 10 0 WBC [place] Basic Metabolic Panelon 01-19 Anion gap [Moles/Vol] 15 mmol/L 9 - 17 mmol/L [place] Bun/Cre Ratio NOT REPORTED [place] Calcium [Mass/Vol] 6.8 mg/dL Low 8.6 - 10. 4 mg/dL [place] Chloride [Moles/Vol] 98 mmol/L 98 - 10 7 mmol/L [place] CO2 [Moles/Vol] 22 mmol/L 20 - 31 mmol/L [place] Creatinine [Mass/Vol] 0.52 mg/dL 0.5 - 0.9 mg/dL [place] GFR >60 >60 mL/min [place] GFR Non- >60 >60 mL/min [place] GFR/1.73 sq M predicted among non-blacks MDRD (S/P/Bld) [Vol rate/Area] [place] Comment on above: Average GFR for 20-2 9 years old: 116 mL/min/1.73sq m Chronic Kidney Disease: <60 mL/min/1.73sq m Kidney failure: <15 mL/min/1.73sq m eGFR calculated using average adult body mass. Additional eGFR calculator available at: http://www.ELIKE/multiple_crcl_2012.htm GFR/1.73 sq M predicted among non-blacks MDRD (S/P/Bld) [Vol rate/Area] NOT REPORTED [place], [place] Glucose [Mass/Vol] 106 mg/dL High 70 - 99 mg/dL [place] Interpretation and review of laboratory results Abnormal [place] Potassium [Moles/Vol] 3.4 mmol/L Low 3.7 - 5.3 mmol/L [place] Sodium [Moles/Vol] 135 mmol/L 135 - 144 mmol/L [place] Urea nitrogen [Mass/Vol] 4 mg/dL Low 6 - 20 mg/dL [place] Hemoglobin and hematocrit, b loodon 02-02-2019 Hematocrit (Bld) [Volume fraction] 26.1 % Low 36.3 - 47.1 % [place] Hemoglobin (Bld) [Mass/Vol] 8.2 g/dL Low 11.9 - 15.1 g/dL [place] Interpretation and review of laboratory results Abnormal [place] MAGNESIUMon 02-02-2019 Interpretation and review of laboratory results Abnormal [place] Magnesium [Mass/Vol] 5.3 mg/dL Critically high 1.6 - 2.6 mg/dL [place] Interpretation and review of laboratory results Abnormal [place] Magnesium [Mass/Vol] 4.9 mg/dL High 1.6 - 2 .6 mg/dL [place] MRSA DNA Probe, Nasalon 01-19 MRSA, DNA, Nasal NEGATIVE: MRSA DNA not detected by nucleic acid amplification. NEGATIVE: MRSA DNA not detected by nucleic acid amplificati [place] Comment on above: Results should be used as an adjunct to nosocomial control efforts to identify patients needing enhanced precautions. The test is not intended to identify patients with staphylococcal infections. Results should not be used to guide or monitor treatment for MRSA infections. Specimen Description .NASAL SWAB [place] Otheron 02-02-2019 Tamir, [facility] Incoming Radiant Results From [employer]acs - 02/02/2019 9:43 PM EDT EXAMINATION: TWO [...] asymmetry of the knee joint as described. [place] No acute fracture of the left knee or left tibia/fibula Slight asymmetry of the knee joint as described. [place] EXAMINATION: TWO XRAY VIEWS OF THE [...] the lateral joint space at the knee. [place] POC Glucose Fingerstickon Glucose [Mass/Vol] 103 mg/dL 65 - 105 mg/dL [place] XR FEMUR RIGHT (MIN 2 VIEWS) on 02-02-2019 Tamir, [facility] Incoming Radiant Results From [employer] - 02/02/2019 4:29 PM EDT EXAMINATION: 2 [...] distal femoral diaphysis. 2. Comminuted acetabular fracture. [place] 1. Interval placement of a traction pin in the distal femoral diaphysis. 2. Comminuted acetabular fracture. [place] EXAMINATION: 2 XRAY VIEWS OF THE [...] but appears anatomic on the AP view. [place] CERVICAL SPINE WO CONTRAS Ton 02-01-2019 Tamir, [facility] Incoming Radiant Results From [employer] - 02/01/2019 1:47 AM EDT EXAMINATION: CT [...] No acute abnormality of the cervical spine. [place] No acute abnormality of the cervical spine. [place] EXAMINATION: CT OF THE CERVICAL SPINE [...] There is no prevertebral soft tissue swelling. [place] CYSTOGRAM W CONTRASTon No contrast [...] the posterior acetabular fracture on the right. [place] EXAMINATION: CT CYSTOGRAM 02/01/2019 6:46 am [...] earlier today. HISTORY: ORDERING SYSTEM PROVIDED HISTORY: Stealth[employer] s/p [employer] TECHNOLOGIST PROVIDED HISTORY: Reason for Exam: r/o [...] within the inferior rectus musculature as well. [facility] [place], [place] Tamir, pn Incoming Radiant Results From [employer] - 02/01/2019 7:41 AM EDT EXAMINATION: CT [...] earlier today. HISTORY: ORDERING SYSTEM PROVIDED HISTORY: [employer] s/p [employer] TECHNOLOGIST PROVIDED HISTORY: Reason for Exam: r/o [...] the posterior acetabular fracture on the right. [place] HEAD WO CONTRASTon 2018 EXAMINATION: CT OF THE HEAD WITHOUT CONTRAST 02/01/2019 1:09 am TECHNIQUE: CT of the head was performed without the administration of intravenous contrast. Dose modulation, iterative reconstruction, and/or weight based adjustment of the mA/kV was utilized to reduce the radiation dose to as low as reasonably achievable. COMPARISON: None. HISTORY: ORDERING SYSTEM PROVIDED HISTORY: [facility] [place] TECHNOLOGIST PROVIDED HISTORY: [...] of the visualized skull or soft tissues. [place] No acute intracranial abnormality. Paranasal sinus disease as above. No evidence of an air-fluid level. [place] Tamir, [facility] Incoming Radiant Results From [employer] - 02/01/2019 1:44 AM EDT EXAMINATION: CT [...] above. No evidence of an air-fluid level. [place] EKG 12 Leadon 02-01-2019 Atrial Rate 114 BPM [place] P [place] 63 degrees [place] P-R Interval 156 ms [place], [place] Q-T Interval 326 ms [place], [place] QRS Duration 86 ms [place], [place] QTc Calculation (Bazett) 449 ms [place], [place] R [place] 35 degrees [place], [place] T [place] 7 degrees [place] Ventricular Rate 114 BPM [place] Sinus tachycardia Otherwise normal ECG No previous ECGs available [place] Tamir, M[facility] Incoming Ekg Results From [employer] - 02/01/2019 1:51 PM EDT Sinus tachycardia Otherwise normal ECG No previous ECGs available [place] Hepatic Function Panelon Albumin [Mass/Vol] 2.4 g/dL Low 3.5 - 5.2 g/dL [place] Albumin/Globulin [Mass ratio] 0.8 {ratio} Low [place] ALP [Catalytic activity/Vol] 104 U/L 35 - 104 U/L [place] ALT [Catalytic activity/Vol] 17 U/L 5 - 33 U/L [place] AST [Catalytic activity/Vol] 27 U/L <32 [place] Bilirubin Ql (U) 0.18 mg/dL Low 0.3 - 1.2 mg/dL [place] Bilirubin, Indirect 0.1 mg/dL 0 - 1 mg/dL [place] Bilirubin.direct [Mass/Vol] 0.08 mg/dL <0.31 [place] Globulin (S) [Mass/Vol] NOT REPORTED 1.5 - 3.8 g/dL [place] Interpretation and review of laboratory results Abnormal [place] Protein [Mass/Vol] 5.4 g/dL Low 6.4 - 8.3 g/dL [place] Albumin [Mass/Vol] 2.6 g/dL Low 3.5 - 5.2 g/dL [place] Albumin/Globulin [Mass ratio] 0.8 {ratio} Low [place] ALP [Catalytic activity/Vol] 118 U/L High 35 - 104 U/L [place] ALT [Catalytic activity/Vol] 18 U/L 5 - 33 U/L [place] AST [Catalytic activity/Vol] 30 U/L <32 [place] Bilirubin Ql (U) 0.19 mg/dL Low 0.3 - 1.2 mg/dL [place] Bilirubin, Indirect CANNOT BE CALCULATED 0 - 1 mg/dL [place] Bilirubin.direct [Mass/Vol] mg/dL <0.31 mg/dL [place] Globulin (S) [Mass/Vol] NOT REPORTED 1.5 - 3.8 g/dL [place] Protein [Mass/Vol] 5.9 g/dL Low 6.4 - 8.3 g/dL [place] LACTATE DEHYDROGENASEon 01-19 LD 308 U/L High 135 - 214 U/L [place] MAGNESIUMon 02-01-2019 Interpretation and review of laboratory results Abnormal [place] Magnesium [Mass/Vol] 6.8 mg/dL Critically high 1.6 - 2.6 mg/dL [place] Microscopic Urinalysison Amorphous, UA NOT REPORTED None [place] Bacteria, UA NOT REPORTED None [place], [place] Casts UA 0 TO 2 HYALINE Reference range defined for non-centrifuged specimen. [place] Crystals UA NOT REPORTED None /HPF [place], [place] Epithelial Cells UA 0 TO 2 [place] Mucus, UA NOT REPORTED None [place], [place] Other Observations UA NOT REPORTED NOT REQ. [place], [place] RBC (U) [#/Vol] 0 TO 2 [place] Comment on above: Reference range defi xiomy for non-centrifuged specimen. Renal Epithelial, Urine NOT REPORTED 0 /HPF [place] Trichomonas, UA NOT REPORTED None [employer], [place] WBC, UA 0 TO 2 [place] Yeast, UA NOT REPORTED None [place], [place] - [place] Otheron 02-01-2019 Interpretation and review of laboratory results Abnormal [place] EXAMINATION: CT OF THE CHEST, ABDOMEN, [...] enhancement. No pericardial fluid. Lungs/pleura: There is copa-phbdhbd-gaer-ri ght bibasilar dependent atelectasis. Lungs are otherwise [...] fracture involving the posterior superior right acetabulum. [facility] Tamir, M[facility] Incoming Radiant Results From [employer] - 02/01/2019 2:11 AM EDT EXAMINATION: CT [...] enhancement. No pericardial fluid. Lungs/pleura: There is upai-pqikdav-xtbp-ri ght bibasilar dependent atelectasis. Lungs are otherwise [...] to FEDERICO PLUMMER on 02/01/2019 at 02:08. [place] There has been acute traumatic injury [...] to FEDERICO PLUMMER on 02/01/2019 at 02:08. [facility] [place] Successful reduction of the right hip dislocation. There is a large curvilinear fracture fragment lateral to the acetabular rim and right hip joint space, likely an acetabular fracture fragment. Follow-up CT examination would be helpful in further evaluating the origin of the fracture fragment. [facility] [place] Tamir, pn Incoming Radiant Results From [employer] - 02/01/2019 1:14 AM EDT EXAMINATION: ONE [...] fracture fragment. [facility] [place] EXAMINATION: ONE XRAY VIEW OF THE PELVIS [...] distal femur. [facility] [place] EXAMINATION: XRAY VIEWS OF THE RIGHT TIBIA [...] right ankle. [facility] [place] 1. Questionable avulsion fracture involving the tibial spine. 2. No additional fracture seen of the right knee or right tibia/fibula. 3. Right ankle swelling. [facility] [place] Tamir, [facility] Incoming Radiant Results From [employer] - 02/01/2019 1:12 AM EDT EXAMINATION: XRAY [...] ankle swelling. [facility] [place] EXAMINATION: 3 X-RAY VIEWS OF THE LEFT [...] subsequent examination demonstrates placement of a splint. [place] Interval improvement in alignment of the distal radial fracture with placement of a splint. [place] Tamir, [facility] Incoming Radiant Results From [employer] - 02/01/2019 1:10 AM EDT EXAMINATION: 3 [...] radial fracture with placement of a splint. [place] PROTEIN, URINE, RANDOMon Protein (U) [Mass/Vol] 18 mg/dL [place] Comment on above: No normal range esta blished. Protein / creatinine ratio, urineon 02-01-2019 Creatinine, Ur 37.8 mg/dL 28 - 217 mg/dL [place] Interpretation and review of laboratory results Abnormal [place] Protein (U) [Mass/Vol] 17 mg/dL [place], [place] Comment on above: No normal range esta blished. Urine Total Protein Creatinine Ratio 0.45 High [place], [place] TYPE AND SCREENon 02-01-2019 ABO/Rh Positive [place], [place] Arm Band Number [id number] [place] Expiration Date 02/04/2019 [place] URINALYSISon 02-01-2019 Bilirubin Urine Negative NEGATIVE [place] Color, UA YELLOW YELLOW [place], [place] Glucose, Ur Negative NEGATIVE [place] Interpretation and review of laboratory results Abnormal [place] Ketones Ql (U) Negative NEGATIVE [place] Leukocyte esterase Test strip Ql (U) Negative NEGATIVE [place] Nitrite, Urine Negative NEGATIVE [place] pH, UA 6.5 [place], [place] Protein (U) [Mass/Vol] Negative NEGATIVE [place] Specific [place], UA 1.039 High [place] Turbidity UA CLEAR CLEAR [place], [place] Urinalysis Comments NOT REPORTED [place] Urine Hgb MODERATE Abnormal NEGATIVE [place] Urobilinogen, Urine Normal Normal [place] VITAMIN D 25 HYDROXYon 02-01 Interpretation and review of laboratory results Abnormal [place] Vit D, 25-Hydroxy 17.7 ng/mL Low 30 - 100 ng/mL [place], [place] Comment on above: Reference Range: Vitamin D status Range Deficiency <20 ng/mL Mild Deficiency 20-30 ng/mL Sufficiency 30-100 ng/mL Toxicity >100 ng/mL Basic Metabolic Panelon 01-19 Anion gap [Moles/Vol] 13 mmol/L 9 - 17 mmol/L [place] Bun/Cre Ratio NOT REPORTED [place] Calcium [Mass/Vol] 8.3 mg/dL Low 8.6 - 10. 4 mg/dL [place] Chloride [Moles/Vol] 105 mmol/L 98 - 10 7 mmol/L [place] CO2 [Moles/Vol] 25 mmol/L 20 - 31 mmol/L [place] Creatinine [Mass/Vol] 0.57 mg/dL 0.5 - 0.9 mg/dL [place] GFR >60 >60 mL/min [place] GFR Non- >60 >60 mL/min [place] GFR/1.73 sq M predicted among non-blacks MDRD (S/P/Bld) [Vol rate/Area] NOT REPORTED [place] GFR/1.73 sq M predicted among non-blacks MDRD (S/P/Bld) [Vol rate/Area] [place] Comment on above: Average GFR for 20-2 9 years old: 116 mL/min/1.73sq m Chronic Kidney Disease: <60 mL/min/1.73sq m Kidney failure: <15 mL/min/1.73sq m eGFR calculated using average adult body mass. Additional eGFR calculator available at: http://www.[employer]/multiple_crcl_2012.htm Glucose [Mass/Vol] 95 mg/dL 70 - 99 mg/dL [place] Interpretation and review of laboratory results Abnormal [place] Potassium [Moles/Vol] 3.9 mmol/L 3.7 - 5.3 mmol/L [place] Sodium [Moles/Vol] 143 mmol/L 135 - 144 mmol/L [place] Urea nitrogen [Mass/Vol] 6 mg/dL 6 - 20 mg/dL [place] CBC WITH AUTO DIFFERENTIALon 01-31-2019 Basophils (Bld) [#/Vol] 0.06 10*3/uL [place] Basophils/100 WBC (Bld) 0 % 0 - 2 % [place] Differential Type NOT REPORTED [place] Eosinophils (Bld) [#/Vol] 0.40 10*3/uL [place] Eosinophils/100 WBC (Bld) 3 % 1 - 4 % [place] Erythrocyte distribution width (RBC) [Ratio] 13.2 % 11.8 - 14.4 % [place] Hematocrit (Bld) [Volume fraction] 28.8 % Low 36.3 - 47.1 % [place] Hemoglobin (Bld) [Mass/Vol] 9.1 g/dL Low 11.9 - 15.1 g/dL [place] Immature granulocytes (Bld) [#/Vol] 2 % High 0 [place] Immature granulocytes (Bld) [#/Vol] 0.23 10*3/uL [place] Interpretation and review of laboratory results Abnormal [place] Lymphocytes (Bld) [#/Vol] 1.77 10*3/uL [place] Lymphocytes/100 WBC (Bld) 12 % Low 24 - 43 % [place] MCH (RBC) [Entitic mass] 28.4 pg 25.2 - 33.5 pg [place] MCHC (RBC) [Mass/Vol] 31.6 g/dL 28.4 - 34.8 g/dL [place] MCV (RBC) [Entitic vol] 90.0 fL 82.6 - 102.9 fL [place] Monocytes (Bld) [#/Vol] 0.67 10*3/uL [place] Monocytes/100 WBC (Bld) 5 % 3 - 12 % [place] Platelet mean volume (Bld) [Entitic vol] 9.2 fL 8.1 - 13.5 fL [place], [place] Platelets (Bld) [#/Vol] 580 10*3/uL High [place] Platelets (Bld) [#/Vol] NOT REPORTED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 Routine History of sleeve gastrectomy Hx of supraventricular tachycardia Encounter for follow-up ultrasound of anatomy Expected: 08/24/2025 (Approximate), Expires: 08/24/2025 [facility] Work Phone: Comment on above: Expected: 08/24/2025 (Approximate), Expires: 08/24/2025 Start: 03-15-2025 Adult BMI Screening Adult BMI Screen ing [facility] Start: 03-15-2025 Tobacco Screening Tobacco Screening [facility] Start: 02-19-2025 Influenza vaccination [facility] Start: 01-19-2025 Tobacco Screening Tobacco Screening [facility] Start: 12-21-2024 Adult BMI Screening Adult BMI Screen ing [facility] Start: 12-21-2024 Tobacco Screening Tobacco Screening [facility] Start: 11-22-2024 End: 11-22-2024 Patient encounter procedure [facility] Comment on above: Arrived Start: 11-18-2024 DTaP,Tdap and Td Vaccines (7 - Td or Tdap) DTaP,Tdap and Td Vaccines (7 - Td or Tdap) [facility] Start: 11-18-2024 DTaP/Tdap/Td vaccine (7 - Td or Tdap) DTaP/Tdap/Td vaccine (7 - Td or Tdap) [facility] Start: 11-18-2024 DTaP/Tdap/Td vaccine (7 - Td) DTaP/Tdap/Td vaccine (7 - Td) [place] Start: 11-14-2024 End: 11-14-2025 CULTURE, GROUP B STREP WITH SUSCEPTIBLITY CULTURE, GROUP B STREP WITH SUSCEPTIBLITY Lab Routine Third trimester Expected: 11/14/2024, Expires: 11/14/2025 [facility] Work Phone: Comment on above: Expected: 11/14/2024 , Expires: 11/14/2025 Start: 11-14-2024 End: 11-14-2024 Patient encounter procedure 11/14/2024 1:50 PM EDT Routine [facility] [address] [place] [address] Cedric Warner DO [address] [place] [address] Arrived [facility] Comment on above: Arrived Start: 11-10-2024 End: 11-10-2024 Patient encounter procedure 11/10/2024 9:15 AM EDT Office Visit [facility] [address] [place] [id number] Liang Fitzgerald MD [address] [place] [address] [facility] Start: 11-09-2024 End: 11-09-2024 Patient encounter procedure 11/09/2024 9:50 AM EDT Routine [facility] [address] [facility] [address] [place] [phone] Zoraida Travis PA [address] [place] [address] [facility] Start: 11-06-2024 End: 11-06-2024 Patient encounter procedure 11/06/2024 11:00 AM EDT Appointment [facility] [address] [place] [phone] [facility] Start: 10-25-2024 End: 10-25-2024 [...] EDT Telemedicine Maternal- Medicine at [facility] [address] [place] [address] Jordan Urbina MD [address], [address] [place] [address] Maternal- Medicine at [facility] Start: 10-11-2024 End: 10-11-2024 Patient encounter procedure 10/11/2024 9:40 AM EDT Routine [facility] [address] [facility] [address] [place] [phone] Zoraida Travis PA [address] [place] [address] [facility] Start: 10-05-2024 End: 10-05-2025 Wireless Telemetry (In Office) [facility] Work Phone: Comment on above: Expected: 10/05/2024 , Expires: 10/05/2025 Start: 10-05-2024 End: 10-05-2024 Patient encounter procedure 10/05/2024 8:30 AM EDT Office Visit [facility] [address] [place] [phone] Liang Fitzgerald MD [address] [place] [address] [facility] Start: 09-28-2024 End: 09-28-2024 Patient encounter procedure 09/28/2024 2:45 PM EDT Appointment [facility] [address] [place] [phone] [facility] Start: 09-26-2024 End: 09-26-2024 Patient encounter procedure 09/26/2024 9:50 AM EDT Routine [facility] [address] [facility] [place] [address] Cedric Warner DO [address] [facility] [place] [address] Arrived [facility] Comment on above: Arrived Start: 08-29-2024 End: 08-29-2024 Patient encounter procedure 08/29/2024 8:30 AM EDT Routine [facility] [address] [place] [phone] Zoraida Travis PA [address] [place] [address] [facility] Start: 08-25-2024 Adult BMI Screening Adult BMI Screen ing [facility] Start: 08-25-2024 Tobacco Screening Tobacco Screening [facility] Start: 08-24-2024 End: 08-24-2024 Patient encounter procedure [facility] Start: 07-31-2024 End: 07-31-2025 US for US OB 14+ weeks anatomy scan Imaging Routine Screening, , for anatomic survey Expected: 07/31/2024, Expires: 07/31/2025 [facility] Comment on above: Expected: 07/31/2024 , Expires: 07/31/2025 Start: 07-31-2024 End: 07-31-2024 Patient encounter procedure 07/31/2024 11:30 AM EST Routine [facility] [address] [place] [address] Zoraida Travis PA [address] [place] [address] Arrived [facility] Comment on above: [...] AM EST Initial [facility] [address] [facility] [place] [address] [facility] Start: 05-29-2024 End: 05-29-2024 Professional / ancillary services management 05/29/2024 8:00 AM EST Ancillary [place] [address] [facility] Start: 05-17-2024 End: 05-17-2024 Patient encounter procedure 05/17/2024 7:40 AM EST Office Visit [facility] [address] [place] [address] [place] [phone] Ally Craig, 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 [address], [place], [place] [phone] [facility] Start: 05-11-2024 End: 05-11-2024 Patient encounter procedure 05/11/2024 1:30 PM EST Office Visit [facility] [address] [place] [phone] Giulia Samayoa PA-C [address] [place] [phone] [facility] Start: 03-30-2024 End: 03-30-2024 Patient encounter procedure 03/30/2024 2:00 PM EDT Office Visit [facility] [address] [place] [phone] Giulia Samayoa PA-C [address] [place] [phone] [facility] Start: 03-15-2024 End: 03-15-2025 Calcium [Mass/volume] in Serum or Plasma Calcium Lab Routine History of sleeve 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 History of anemia Expected: 03/15/2024, Expires: 03/15/2025 [facility] Work Phone: Comment on above: Expected: 03/15/2024 , Expires: 03/15/2025 Start: 03-15-2024 End: 03-15-2025 CBC W Auto Differential panel - Blood CBC auto differential Lab Routine History of sleeve 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 History of anemia Expected: 03/15/2024, Expires: 03/15/2025 [facility] [employer] Comment on above: Expected: 03/15/2024 , Expires: 03/15/2025 Start: 03-15-2024 End: 03-15-2025 Copper, S Copper, S Lab Routine History of sleeve 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 History of anemia Expected: 03/15/2024, Expires: 03/15/2025 [facility] Comment on above: Expected: 03/15/2024 , Expires: 03/15/2025 Start: 03-15-2024 End: 03-15-2025 Cyanocobalamin vitamin b-12 Vitamin B12 Lab Routine History of sleeve 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 History of anemia Expected: 03/15/2024, Expires: 03/15/2025 [facility] Comment on above: Expected: 03/15/2024 , Expires: 03/15/2025 Start: 03-15-2024 End: 03-15-2025 Ferritin [Mass/volume] in Serum or Plasma Ferritin Lab Routine History of sleeve 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 History of anemia Expected: 03/15/2024, Expires: 03/15/2025 [facility] Comment on above: Expected: 03/15/2024 , Expires: 03/15/2025 Start: 03-15-2024 End: 03-15-2025 Folate Folate Lab Routine History of sleeve 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 History of anemia Expected: 03/15/2024, Expires: 03/15/2025 [facility] Comment on above: Expected: 03/15/2024 , Expires: 03/15/2025 Start: 03-15-2024 End: 03-15-2025 Iron and TIBC Iron and TIBC Lab Routine History of sleeve 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 History of anemia Expected: 03/15/2024, Expires: 03/15/2025 [facility] Comment on above: Expected: 03/15/2024 , Expires: 03/15/2025 Start: 03-15-2024 End: 03-15-2025 Liver panel Liver panel Lab Routine History of sleeve 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 History of anemia Expected: 03/15/2024, Expires: 03/15/2025 [facility] Comment on above: Expected: 03/15/2024 , Expires: 03/15/2025 Start: 03-15-2024 End: 03-15-2025 Parathyroid Hormone, intact Parathyroid Hormone, intact Lab Routine History of sleeve 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 History of anemia Expected: 03/15/2024, Expires: 03/15/2025 [facility] Comment on above: Expected: 03/15/2024 , Expires: 03/15/2025 Start: 03-15-2024 End: 03-15-2025 Thiamin (Vitamin B1), WB Thiamin (Vitamin B1), WB Lab Routine History of sleeve 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 History of anemia Expected: 03/15/2024, Expires: 03/15/2025 [facility] Comment on above: Expected: 03/15/2024 , Expires: 03/15/2025 Start: 03-15-2024 End: 03-15-2025 Vitamin A (Retinol) Vitamin A (Retinol) Lab Routine History of sleeve 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 History of anemia Expected: 03/15/2024, Expires: 03/15/2025 [facility] Comment on above: Expected: 03/15/2024 , Expires: 03/15/2025 Start: 03-15-2024 End: 03-15-2025 Vitamin D 25 hydroxy Vitamin D 25 hydroxy Lab Routine History of sleeve 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 History of anemia Expected: 03/15/2024, Expires: 03/15/2025 [facility] Comment on above: Expected: 03/15/2024 , Expires: 03/15/2025 Start: 03-15-2024 End: 03-15-2025 Zinc, Serum Zinc, Serum Lab Routine History of sleeve 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 History of anemia Expected: 03/15/2024, Expires: 03/15/2025 [facility] Comment on above: Expected: 03/15/2024 , Expires: 03/15/2025 Start: 03-15-2024 End: 03-15-2024 Patient encounter procedure 03/15/2024 7:40 AM EDT Office Visit [facility] [address] [place] [phone] Ally Craig, 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 [address], [place] [address] [facility] Start: 02-20-2024 COVID-19 Vaccine ( season) COVID-19 Vaccine ( season) [facility] Start: 02-20-2024 COVID-19 Vaccine ( season) COVID-19 Vaccine () [facility] Start: 02-20-2024 Influenza vaccination [facility] Start: 01-19-2024 End: 01-19-2024 Patient encounter procedure 01/19/2024 10:20 AM EDT Office Visit [facility] [address] [place] [phone] Ally Craig, 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 [address], [place] [address] [facility] Start: 11-16-2023 End: 11-16-2023 Patient encounter procedure 11/16/2023 10:00 AM EDT [facility] [address] [place] [phone] Giulia Samayoa PA-C [address] [address] [facility] General Surgery-[facility] Start: 11-10-2023 Depression Screening [facility] Start: 02-19-2023 COVID-19 Vaccine ( season) COVID-19 Vaccine ( season) [facility] Start: 12-29-2022 Adult BMI Follow Up Plan Adult BMI Follow Up Plan [facility] Start: 11-19-2022 Adult BMI Follow Up Plan Adult BMI Follow Up Plan [facility] Start: 01-19-2022 Influenza vaccination Flu vaccine (# 1) [facility] Start: 04-25-2021 COVID-19 Vaccine (2 - Booster for Neel series) COVID-19 Vaccine (2 - Booster for Neel series) [facility] Start: 02-21-2019 End: 02-21-2019 Office Visit 02/21/2019 Office Visit Orthopedic Surgery Mayr Mazariegos, [address] [place] [address] [phone] [facility] Start: 02-19-2019 Influenza vaccination Flu vaccine (# 1) [place], [place] Start: 2016 Cervical cancer screen Cervical canc er screen [place], [place] Start: 2016 Screening for malign ant neoplasm of cervix Pap smear [facility] Start: 2013 Adult BMI Follow Up Plan Adult BMI Follow Up Plan [facility] Start: 2011 Chlamydia screen Chlamydia screen [place], [place] Start: 2010 HIV screen HIV screen [place], [place] Start: 2010 HIV screening HIV screen [facility] Start: 2010 HPV vaccine (1 - Fem samuel 3-dose series) HPV vaccine (1 - Female 3-dose series) [place], [place] Start: 2008 Varicella Vaccine (1 of 2 - 13+ 2-dose series) Varicella Vaccine (1 of 2 - 13+ 2-dose series) [place], [place] Start: 2007 Depression Monitoring Depression Mon itoring [facility] Start: 2001 Pneumococcal 0-64 ye ars Vaccine (1 - PCV) Pneumococcal 0-64 years Vaccine (1 - PCV) [facility] Start: 2001 Pneumococcal 0-64 ye ars Vaccine (1 of 1 - PPSV23) Pneumococcal 0-64 years Vaccine (1 of 1 - PPSV23) [place], [place] Start: 1996 Varicella vaccine (1 of 2 - 2-dose childhood series) Varicella vaccine (1 of 2 - 2-dose childhood series) [facility] Bacteria identified in Urine by Culture Urine culture Microbiology Routine Missed menses Ordered: 05/29/2024 [facility] [employer] Comment on above: Ordered: 05/29/2024 End: 01-19-2025 Bacteria identified in Urine by Culture Urine culture (clean catch) Microbiology Routine Dysuria 1 Occurrences starting 01/20/2024 until 01/19/2025 [employer] Work Phone: Comment on above: 1 Occurrences starti ng 01/20/2024 until 01/19/2025 CBC W Auto Different ial panel - Blood CBC and differential Lab Routine Missed menses , unspecified gestational age Ordered: 05/29/2024 [facility] [employer] Comment on above: Ordered: 05/29/2024 End: 03-15-2025 CBC W Auto Differential panel - Blood CBC auto differential Lab Routine 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 Chronic fatigue Sinus pressure 1 Occurrences starting 03/15/2024 until 03/15/2025 [employer] Work Phone: Comment on above: 1 Occurrences starti ng 03/15/2024 until 03/15/2025 CHLAMYDIA TRACHOMATI S (GENITO/STI) CHLAMYDIA TRACHOMATIS (GENITO/STI) Lab Routine Exposure to STD Ordered: 07/31/2024 [facility] [employer] Comment on above: Ordered: 07/31/2024 End: 03-15-2025 Comprehensive metabolic 2000 panel - Serum or Plasma Comprehensive metabolic panel Lab Routine 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 Chronic fatigue 1 Occurrences starting 03/15/2024 until 03/15/2025 [facility] [employer] Comment on above: 1 Occurrences starti ng 03/15/2024 until 03/15/2025 End: 02-01-[address] 3D RECONSTRUCTION Imaging STAT Once for 1 Occurrences starting 02/01/2019 until 02/01/2019 [facility] Comment on above: Once for 1 Occurrenc es starting 02/01/2019 until 02/01/2019 End: 02-03-[address] 3D Reconstruction Imaging STAT Once for 1 Occurrences starting 02/03/2019 until 02/03/2019 [facility] Comment on above: Once for 1 Occurrenc es starting 02/03/2019 until 02/03/2019 CT 3D RECONSTRUCTION Sammie Castellanos [facility] End: 03-15-2025 Cyanocobalamin vitamin b-12 Vitamin B12 Lab Routine 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 Chronic fatigue 1 Occurrences starting 03/15/2024 until 03/15/2025 [email or web address] above: 1 Occurrences starti ng 03/15/2024 until 03/15/2025 Cytology Cervical or vaginal smear or scraping study Pap Smear Pathology and Cytology Routine Well woman exam with routine gynecological exam Ordered: 07/31/2024 [facility] Work Phone: Comment on above: Ordered: 07/31/2024 End: 03-15-2025 Ferritin [Mass/volume] in Serum or Plasma Ferritin Lab Routine 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 Chronic fatigue 1 Occurrences starting 03/15/2024 until 03/15/2025 [email or web address] Comment on above: 1 Occurrences starti ng 03/15/2024 until 03/15/2025 Hemoglobin A1c/Hemoglobin.total in Blood Hemoglobin A1c Lab Routine Missed menses , unspecified gestational age Ordered: 05/29/2024 [facility] Comment on above: Ordered: 05/29/2024 Hepatitis B virus surface Ag [Presence] in Serum or Plasma by Immunoassay Hepatitis B surface antigen Lab Routine Missed menses , unspecified gestational age Ordered: 05/29/2024 [facility] Comment on above: Ordered: 05/29/2024 Hepatitis C virus Ab [Presence] in Serum or Plasma by Immunoassay Hepatitis C antibody Lab Routine Missed menses , unspecified gestational age Ordered: 05/29/2024 [facility] Comment on above: Ordered: 05/29/2024 HHN Treatment HHN Treatment Re spiratory Care Routine As Needed until discontinued starting 02/02/2019 [facility] Comment on above: As Needed until disc ontinued starting 02/02/2019 HIV-1/HIV-2 antigen/antibody combination immunoassay HIV-1 and HIV-2 antibodies Lab Routine Missed menses , unspecified gestational age Ordered: 05/29/2024 [facility] Comment on above: Ordered: 05/29/2024 Initiate Oxygen Ther apy Protocol Initiate Oxygen Therapy Protocol Respiratory Care Routine Daily until discontinued starting 02/01/2019 [facility] Comment on above: Daily until disconti nued starting 02/01/2019 End: 03-15-2025 Iron and TIBC Iron and TIBC Lab Routine 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 Chronic fatigue 1 Occurrences starting 03/15/2024 until 03/15/2025 [facility] Comment on above: 1 Occurrences starti ng 03/15/2024 until 03/15/2025 End: 03-15-2025 Lipid 1996 panel - Serum or Plasma Lipid profile Lab Routine 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 Chronic fatigue Lipid screening 1 Occurrences starting 03/15/2024 until 03/15/2025 [facility] Comment on above: 1 Occurrences starti ng 03/15/2024 until 03/15/2025 MDI Treatment MDI Treatment Re spiratory Care Routine Every 6hr As Needed until discontinued starting 02/01/2019 [facility] Comment on above: Every 6hr As Needed until discontinued starting 02/01/2019 End: 06-05-2022 MRI HIP RIGHT W CONTRAST LUIZ [employer] [facility] 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: Comment on above: 1 Occurrences starti ng 06/05/2022 until 06/05/2022 Neisseria gonorrhoea e DNA [Presence] in Unspecified specimen by SAMIR with probe detection Neisseria gonorrhea DNA probe, direct Lab Routine Exposure to STD Ordered: 07/31/2024 [facility] Comment on above: Ordered: 07/31/2024 End: 02-09-2019 PREPARE RBC (CROSSMATCH), 1 Units PREPARE RBC (CROSSMATCH), 1 Units Blood Bank Non-Stat Once for 1 Occurrences starting 02/09/2019 until 02/09/2019 [facility] Comment on above: Once for 1 Occurrenc es starting 02/09/2019 until 02/09/2019 Reagin Ab [Presence] in Serum by RPR RPR Lab Routine Missed menses , unspecified gestational age Ordered: 05/29/2024 [facility] Comment on above: Ordered: 05/29/2024 Respiratory care evaluation only Respiratory care evaluation only Respiratory Care Routine As Needed until discontinued starting 02/02/2019 [facility] Comment on above: As Needed until disc ontinued starting 02/02/2019 Rubella antibody, IgG Rubella an tibody, IgG Lab Routine Missed menses , unspecified gestational age Ordered: 05/29/2024 [facility] Comment on above: Ordered: 05/29/2024 SURESWAB(R) ADVANCED VAGINITIS PLUS, TMA SURESWAB(R) ADVANCED VAGINITIS PLUS, TMA Pathology and Cytology Routine Exposure to STD Ordered: 07/31/2024 [facility] Comment on above: Ordered: 07/31/2024 End: 03-15-2025 Thyroid profile includes TSH FT4 Thyroid profile includes TSH FT4 Lab Routine 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 Chronic fatigue 1 Occurrences starting 03/15/2024 until 03/15/2025 [facility] Comment on above: 1 Occurrences starti ng 03/15/2024 until 03/15/2025 Immunizations Immunization Date Immunization Notes Care Provider Fa cility 02-28-2021 COVID-19 Vaccine, vector-nr, rS-Ad26, PF, 0.5mL Doc Guevara MD Work Phone: [facility] 11-18-2014 tetanus toxoid, reduced diphtheria toxoid, and acellular pertussis vaccine, adsorbed Doc Guevara MD Work Phone: [facility] 12-01-2000 diphtheria, tetanus toxoids and acellular pertussis vaccine Doc Guevara MD Work Phone: [facility] 12-01-2000 diphtheria, tetanus toxoids and acellular pertussis vaccine, unspecified formulation Doc Guevara MD Work Phone: [facility] 12-01-2000 measles, mumps and rubella virus vaccine Doc Guevara MD Work Phone: [facility] 12-01-2000 poliovirus vaccine, inactivated Doc Guevara MD Work Phone: [facility] 05-11-1997 diphtheria, tetanus toxoids and acellular pertussis vaccine Doc Guevara MD Work Phone: [facility] 09-07-1996 haemophilus influenz ae type b vaccine, conjugate unspecified formulation Doc Guevara MD Work Phone: [facility] 09-07-1996 measles, mumps and rubella virus vaccine Doc Guevara MD Work Phone: [facility] 07-03-1996 DTP-Haemophilus influenzae type b conjugate vaccine Doc Guevara MD Work Phone: [facility] 07-03-1996 hepatitis B vaccine, adult dosage Doc Guevara MD Work Phone: [facility] 07-03-1996 trivalent poliovirus vaccine, live, oral Doc Guevara MD Work Phone: [facility] 1995 DTP-Haemophilus influenzae type b conjugate vaccine Doc Guevara MD Work Phone: [facility] 1995 trivalent poliovirus vaccine, live, oral Doc Guevara MD Work Phone: [facility] 1995 DTP-Haemophilus influenzae type b conjugate vaccine Doc Guevara MD Work Phone: [facility] 1995 hepatitis B vaccine, adult dosage Doc Guevara MD Work Phone: [facility] 1995 trivalent poliovirus vaccine, live, oral Doc Guevara MD Work Phone: [facility] 1995 haemophilus influenz ae type b vaccine, conjugate unspecified formulation Doc Guevara MD Work Phone: [facility] NEGATED: Highlighted row has not occurred!06-20-2018 influenza, injectable, quadrivalent, preservative free Doc Guevara MD Work Phone: [facility] Comment on above: Deferred: Payers Date Payer Category Payer Commercial Managed Care - [facility] [employer] [id number] 2024 Unknown [id number] 2023 Self-pay 2022 Medicaid [facility] MEDICAID [facility] [id number] 2022-Present [phone] [address] [place] [address] [id number] 2022 Medicaid O [facility] MEDICAID [id number] 2022 Private Health Insurance [id number] 2022 Private Health Insurance [id number] 2021 Unknown [id number]. [id number] 2021 Unknown [id number] [id number]. [id number] 2021 Blue Cross Blue Shield [id number] 2019 Unknown GENERIC AUTO INS URANCE GENERIC AUTO INSURANCE xxxxxxxx 2019-Present xxxxxxxx [id number] 2018 Private Health Insurance [facility] COMMUNITY PLAN xxxxxxxxx 2018-Present [phone] [address] [place] [address] xxxxxxxxx [id number] 2018 Unknown [employer] [place] xxxxxxxxxxxxxxx 2018-Present [address] [place] [address] xxxxxxxxxxxxxxx [id number]. [id number] 1995 Unknown [id number] 2.840.1.606953.3.579.2. 176 1995 Unknown [id number] 2.16840.1.935362.3.579.2. 593 1995 Unknown [id number] 2.16840.1.101703.3.579.2. 175 1995 Unknown [id number] 2.16840.1.932728.3.579.2. 175 1995 Unknown [id number] 2.840.1.888036.3.579.2. 1286 1995 Unknown [id number] 2.16840.1.338447.3.579.2. 1286 1995 Unknown [id number] 2.16840.1.745533.3.579.2. 1286 1995 Unknown [id number] 2.16840.1.954865.3.579.2. 1286 1995 Unknown [id number] 2.16840.1.686888.3.579.2. 1286 1995 Unknown [id number] 2.16840.1.491823.3.579.2. 1286 1995 Unknown [id number] 2.16840.1.366753.3.579.2. 1285 1995 Unknown [id number] 2.16840.1.012764.3.579.2. 1285 1995 Unknown [id number] 2.840.1.723875.3.579.2. 1285 1995 Unknown [id number] 2.840.1.781413.3.579.2. 1285 1995 Unknown [id number] 2.840.1.921374.3.579.2. 1285 1995 Unknown [id number] 2.840.1.203809.3.579.2. 1285 1995 Unknown [id number] 20.1.488817.3.579.2. 1285 1995 Unknown [id number]. 1285 1995 Unknown [id number]. 1285 1995 Unknown [id number]. 1258 1995 Unknown [id number] 20.1.064781.3.579.2. 1258 1995 Unknown [id number] 2.840.1.208483.3.579.2. 1258 1995 Unknown [id number]. 1258 1995 Unknown [id number] 2.840.1.558071.3.579.2. 1258 1995 Unknown [id number]. 1258 1995 Unknown [id number]. 1259 1995 Unknown [id number] 2.16.840.1.124365.3.579.2. 1259 1995 Unknown [id number] 2.16.840.1.654538.3.579.2. 1259 1995 Unknown [id number]. 1259 1959 Private Health Insurance [id number] 1959 Unknown [id number] Unknown 100 ODJFS [facility] [id number] Unknown [facility] [id number] Unknown [id number]. 531 Social History Date Type Detail Facility Start: 02-09-2019 End: 11-24-2022 Tobacco smoking status NHIS Never smoker [place] Start: 02-09-2019 End: 05-29-2024 Alcohol intake Yes [facility] Start: 02-01-2019 History SDOH Alcohol Frequency 2 [place], [place] Start: 1995 Sex Assigned At Not on file [place], [place] Start: 02-01-2019 End: 11-24-2022 Tobacco use and exposure Smokeless tobacco non-user [employer] [facility] [employer] Phone: Start: 05-06-2021 End: 03-15-2024 Alcohol intake Current drinker of alcohol (finding) [employer] Phone: Start: 1995 Sex Assigned At Female [facility] Start: 11-24-2022 End: 05-29-2024 History of Social function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 03/17/2024 [facility] DATE CREATED AUTHOR AUTHOR'S ORGANIZ ATION 11/07/2024 [facility] DATE CREATED AUTHOR AUTHOR'S ORGANIZ ATION 11/23/2024 [facility] EPIC Care Teams (unrecognized sec tion and content) Business Development Recruiter Relationship Specialty Start Date End Date Ally Craig APRN - ACCOUNT MANAGER SALES REPRESENTATIVE [address] [place] [address] PCP - General Nurse Practitioner 01/31/19 Business Development Recruiter Relationship Specialty Start Date End Date Ally Craig APRN - ACCOUNT MANAGER SALES REPRESENTATIVE [address] [place] [address] PCP - General Nurse Practitioner 01/31/19 Team Status: Active Member Role Status Dates NON STAFF Primary Care Provider Active Team Status: Inactive Member Role Status Dates NON STAFF Primary Care Provider Active Start: December 08, 2023 End: December 08, 2023 Janna Escalera APRN Attending Provider Active Start: December 08, 2023 End: December 08, 2023 Business Development Recruiter Relationship Specialty Start Date End Date Ally Craig APRN-ACCOUNT MANAGER SALES REPRESENTATIVE [address], [place] [address] PCP - General Family Medicine 04/12/18 Business Development Recruiter Relationship Specialty Start Date End Date Ally Craig APRN-ACCOUNT MANAGER SALES REPRESENTATIVE [address], [place] [address] PCP - General Family Medicine 04/12/18 Business Development Recruiter Relationship Specialty Start Date End Date Ally Craig APRN-ACCOUNT MANAGER SALES REPRESENTATIVE [address], [place] [address] PCP - General Family Medicine 04/12/18 Business Development Recruiter Relationship Specialty Start Date End Date [facility] [address], [place] [address] PCP - General Family Medicine 04/12/18 Business Development Recruiter Relationship Specialty Start Date End Date Al[facility] [address], [place] [address] PCP - General Family Medicine 04/12/18 Business Development Recruiter Relationship Specialty Start Date End Date Ally [facility] [address], [place] [address] PCP - General Family Medicine 04/12/18 Business Development Recruiter Relationship Specialty Start Date End Date Ally [facility] [address], [place] [address] PCP - General Family Medicine 04/12/18 Business Development Recruiter Relationship Specialty Start Date End Date Ally [facility] [address], [place] [address] PCP - General Family Medicine 04/12/18 Business Development Recruiter Relationship Specialty Start Date End Date Ally [facility] [address], [place] [address] PCP - General Family Medicine 04/12/18 Business Development Recruiter Relationship Specialty Start Date End Date Ally [facility] [address], [place] [address] PCP - General Family Medicine 04/12/18 Business Development Recruiter Relationship Specialty Start Date End Date Ally [facility] [address], [place] [address] PCP - General Family Medicine 04/12/18 Business Development Recruiter Relationship Specialty Start Date End Date Ally [facility] [address], [place] [address] PCP - General Family Medicine 04/12/18 Business Development Recruiter Relationship Specialty Start Date End Date Ally [facility] [address], [place] [address] PCP - General Family Medicine 04/12/18 Business Development Recruiter Relationship Specialty Start Date End Date Ally Craig [facility] [address], [place] [address] PCP - General Family Medicine 04/12/18 Business Development Recruiter Relationship Specialty Start Date End Date Ally [facility] [address], [place] [address] PCP - General Family Medicine 04/12/18 Business Development Recruiter Relationship Specialty Start Date End Date Ally [facility] [address], [place] [address] PCP - General Family Medicine 04/12/18 Team Status: Inactive Member Role Status Dates NON STAFF Primary Care Provider Active Start: October 22, 2024 End: October 22, 2024 Debbie Campuzano APRN Attending Provider Active Start: October 22, 2024 End: October 22, 2024 Business Development Recruiter Relationship Specialty Start Date End Date Ally Craig APRN-ACCOUNT MANAGER SALES REPRESENTATIVE [address], [place] [address] PCP - General Family Medicine 04/12/18 Goals [...] BE BASED ON THE PRIMARY CLINICAL RECORDS. [employer] provides no warranty or guarantee of the accuracy or completeness of information in this document.
--- OUTSIDE RECORDS SUMMARY | 2024-11-30 05:38 | XMS_ITS | Encounter Summary ---
Author [facility] Address [id number] [address] [place] [address] Care Team Providers Care Water Superintendent Name Role Phone KiaraAlly stevenson UNITIZER-TRANSFER MAN Primary Care Provi collin Encounter Details Date Type Department Care Team (Late st Contact Info) Description 10/09/2020 [facility] [address] [place] [address] [place] [address] Yong Veliz CMA Social History [...] Author D/C Home General Yes Yaneth Bright, UNITIZER-TRANSFER MAN Note: Evaluation of progress towards goal: [...] documented as of this encounter Care Teams Water Superintendent Relationship Specialty Start Date End Date Ally Craig, UNITIZER-TRANSFER MAN [address], [place] [address] PCP - General Family Medicine 04/12/18 documented as of this encounter
--- OUTSIDE RECORDS SUMMARY | 2024-11-30 05:38 | XMS_ITS | Encounter Summary ---
Author Organization [facility] tem Address [id number] [address] [place] [address] Care Team Providers Care Fashion Illustrator Name Role Phone KiaraAlly stevenson CERTIFIED TECHNICIAN SPECIALIST-HALF BACKER Primary Care Provi collin Encounter Details Date Type Department Care Team (Late st Contact Info) Description 11/06/2020 [facility] [address] [place] [address] [place] [address] Yong Veliz CMA Social History [...] documented as of this encounter Care Teams Fashion Illustrator Relationship Specialty Start Date End Date Ally Craig APRN-CNP [address], [place] [address] PCP - General Family Medicine 04/12/18 documented as of this encounter
[2024-11-30 06:12] LABS: Basophils Absolute Auto 0.1 10^3/uL (0.0-0.1); Basophils Percent Auto 0.6 % (0.2-2.0); Eosinophils Absolute Auto 0.2 10^3/uL (0.0-0.7); Eosinophils Percent Auto 2.9 % (0.9-7.0); Hematocrit 30.8 % (36.0-48.0); Immature Granulocytes Abs Auto 0.02 10^3/uL (0.00-0.03); Immature Granulocytes Pct Auto 0.3 % (0.0-0.5); Lymphocytes Absolute Auto 1.6 10^3/uL (1.2-3.8); Lymphocytes Percent Auto 19.8 % (20.5-60.0); Mean Corpuscular HGB Conc 35.7 g/dL (29.9-35.2); Mean Corpuscular Hemoglobin 31.4 pg (26.7-34.0); Mean Platelet Volume 10.5 fL (9.5-13.5); Monocytes Absolute Auto 0.6 10^3/uL (0.3-0.8); Monocytes Percent Auto 6.9 % (1.7-12.0); Neutrophils Absolute Auto 5.5 10^3/uL (1.4-6.5); Neutrophils Percent Auto 69.5 % (43.0-75.0); Platelet Count 220 10^3/uL (150-450); Red Cell Distribution Width 13.2 % (11.0-15.0); White Blood Count 7.9 10^3/uL (4.0-11.0)
[2024-11-30 06:15] LABS: Bilirubin Urine NEGATIVE (NEGATIVE); Blood Urine NEGATIVE (NEGATIVE); Clarity Urine CLEAR (CLEAR); Color Urine YELLOW (YELLOW); Glucose Urine UA NEGATIVE (NEGATIVE); Ketones Urine TRACE mg/dL (NEGATIVE); Leukocyte Esterase Urine NEGATIVE (NEGATIVE); Nitrite Urine NEGATIVE (NEGATIVE); Protein Urine TRACE mg/dL (NEG/TRACE); Specific Gravity Urine 1.025 (1.005-1.025); Urobilinogen Urine 0.2 EU/dL (0.2-1.0)
[2024-11-30] MEDS: METOCLOPRAMIDE HCL 10 MG/2 ML VIAL IVP (06:16)
[2024-11-30] MEDS: FAMOTIDINE/PF 20 MG/2 ML VIAL IV (06:16)
[2024-11-30] MEDS: 0.9 % SODIUM CHLORIDE 1,000 ML 1000 ML IV ×2 (06:16→06:37)
[2024-11-30] MEDS: CITRIC ACID/SODIUM CITRATE 30 ML SOLUTION ORACIT SHOHL'S SOLN PO (06:16)
[2024-11-30 06:24] LABS: Bacteria Urine SMALL #/HPF (NONE SEEN); Cast Seen? NONE SEEN #/LPF (NONE SEEN); Crystals Seen? None Seen #/HPF (None Seen); Mucus Urine SMALL (NONE SEEN); RBC Urine NONE SEEN #/HPF (0-2); Squamous Epithelial Cell Urine MANY #/LPF (NONE/RARE); Urine Culture Indicated YES-LC
[2024-11-30 06:26] LABS: Amphetamine Screen Urine NEGATIVE (NEGATIVE); Barbiturates Screen Urine NEGATIVE (NEGATIVE); Benzodiazepines Screen Urine NEGATIVE (NEGATIVE); Buprenorphine Screen Urine NEGATIVE (NEGATIVE); Cannabinoid Screen Urine NEGATIVE (NEGATIVE); Cocaine Screen Urine NEGATIVE (NEGATIVE); Methadone Screen Urine NEGATIVE (NEGATIVE); Methamphetamines Screen Urine NEGATIVE (NEGATIVE); Opiate Screen Urine NEGATIVE (NEGATIVE); Oxycodone Screen Urine NEGATIVE (NEGATIVE); Phencyclidine Screen Urine NEGATIVE (NEGATIVE); Tricyclic Antidepressant Urine NEGATIVE (NEGATIVE)
[2024-11-30] MEDS: CEFAZOLIN SODIUM/DEXTROSE,ISO 2 GM/50 ML PIGGYBACK IV ×2 (07:54→14:00)
[2024-11-30] MEDS: LACTATED RINGER'S SOLUTION 1,000 ML 50 ML IV ×2 (08:20→08:45)
--- NOTE | 2024-11-30 09:07 | P.OBPRC_ITS ---
Procedure Pre-op/Post-op diagnoses: Pre-Op/Post-Op Diagnoses Operation Date: 11/30/24 07:30 <No data on this case meets the specified criteria> Procedure: Procedures Operation Date: 11/30/24 07:30 Actual Procedure Side Surgeon p Repeat , Bilateral Salpingectomy Bilateral Cedric Warner DO Software Deployment Engineer: Jaycee Yarbrough Estimated blood loss (mL): 575 Disposition: floor Anesthesia type: Spinal
--- NOTE | 2024-11-30 09:08 | P.ON_ITS ---
Brief Operative Note Date of procedure: 11/30/24 Pre-op diagnosis general: iup at 38wks, previous c/s, desires tubal ligation Post-op diagnosis: same as pre-op Procedure: NAME OF PROCEDURE: [ section with bilateral salpingectomy ] PROCEDURE: Patient was taken back to the Operating Room where she was given a spinal anesthesia with Duramorph without difficulty. She was prepped and draped in the normal sterile fashion. A Pfannenstiel skin incision was then made 2?cm above the symphysis pubis and carried down to underlying rectus fascia using a Bovie. The fascia was incised in the midline and extended laterally using Price scissors. Two Elisa clamps were placed on the superior aspect of the fascia and dissected off the underlying rectus muscles. The same was performed on the inferior aspect as well. The muscles were then in the midline. P eritoneum was identified and entered bluntly. The peritoneum was then extended superiorly and inferiorly with good visualization of the bladder. The bladder blade was inserted. Vesicouterine peritoneum was identified, tented up, and entered with Metzenbaum scissors. A bladder flap was then created digitally. The bladder blade was reinserted. A low transverse incision was made on the patient's uterus and extended laterally digitally. The was then delivered atraumatically after the bladder blade was removed in the cephalic position. The cord was clamped and cut. Cord blood was obtained. The infant was handed off to awaiting team. The patient's placenta was spontaneously delivered. The uterus was then exteriorized. The uterus was cleared of all clots and debris. The bladder blade was reinserted. The patient's uterine incision was closed using #0 Vicryl in a running lock fashion. Excellent hemostasis was assured.? The rt tube was identified and grasped with babock, the ligasure was used to transect and ligate the tube in its entirity, this was done on the contralateral side as well. The uterus was then returned to the patient's abdomen. The patient's abdomen was copiously irrigated using warm saline. Peritoneal gutters were cleared of all clots and debris. Again excellent hemostasis was assured. The patient's fascia was closed using #0 Vicryl in a running fashion. The patient's skin was closed using 4-0 Vicryl subcuticularly. The patient tolerated the procedure well. Sponge, lap, and needle counts were correct x2. The patient was taken to the Recovery Room in stable condition. Anesthesia: spinal Surgeon: Cedric Warner Care Administrative Tech: Jaycee Yarbrough Estimated blood loss (mL): 575 Pathology: other (tubes) Condition: stable Disposition: floor Urinary Catheter Management Urinary Catheter Management Urethral: Cath placed during this visit: no
--- NOTE | 2024-11-30 10:47 | PC.NURSE ---
1006- Report given to Maura RN following PACU recovery. Care relinquished.
[2024-11-30] MEDS: 0.9 % SODIUM CHLORIDE 1,000 ML 125 ML IV (14:00)
[2024-11-30] MEDS: KETOROLAC TROMETHAMINE 30 MG/ML VIAL IVP ×2 (15:11→21:38)
[2024-11-30] MEDS: ACETAMINOPHEN 500 MG TABLET 1000 MG PO (20:50)
[2024-11-30] MEDS: ENOXAPARIN SODIUM 40 MG/0.4 ML SYRINGE SUBQ (20:50)
[2024-11-30] MEDS: MAGNESIUM HYDROXIDE 2,400 MG/10 ML ORAL.SUSP 2400 MG PO (22:56)
[2024-12-01 00:52] VITALS: BP 101/60; PULSE 67; TEMP 36.9
[2024-12-01] MEDS: SIMETHICONE 80 MG TAB.CHEW PO ×3 (00:56→14:07)
[2024-12-01 03:23] VITALS: BP 109/56; PULSE 68; TEMP 36.8
[2024-12-01] MEDS: ACETAMINOPHEN 500 MG TABLET 1000 MG PO ×3 (03:25→20:36)
[2024-12-01] MEDS: KETOROLAC TROMETHAMINE 30 MG/ML VIAL IVP ×2 (03:25→08:46)
[2024-12-01 06:49] LABS: Basophils Percent Auto 0.2 % (0.2-2.0); Eosinophils Percent Auto 0.2 % (0.9-7.0); Hemoglobin 9.3 g/dL (12.0-16.0); Immature Granulocytes Abs Auto 0.05 10^3/uL (0.00-0.03); Immature Granulocytes Pct Auto 0.4 % (0.0-0.5); Lymphocytes Absolute Auto 1.8 10^3/uL (1.2-3.8); Lymphocytes Percent Auto 15.2 % (20.5-60.0); Mean Corpuscular HGB Conc 35.8 g/dL (29.9-35.2); Mean Corpuscular Hemoglobin 31.5 pg (26.7-34.0); Mean Corpuscular Volume 88.1 fL (81.0-99.0); Mean Platelet Volume 10.6 fL (9.5-13.5); Monocytes Absolute Auto 0.8 10^3/uL (0.3-0.8); Neutrophils Absolute Auto 9.2 10^3/uL (1.4-6.5); Platelet Count 206 10^3/uL (150-450); Red Blood Count 2.95 10^6/uL (4.20-5.40); Red Cell Distribution Width 13.3 % (11.0-15.0)
[2024-12-01] MEDS: DOCUSATE SODIUM 100 MG CAPSULE PO ×2 (08:45→20:37)
[2024-12-01 08:49] VITALS: BP 118/74; PULSE 72; TEMP 36.6; O2SAT 100
--- NOTE | 2024-12-01 10:07 | PM.OBPN ---
OB - PN: Subj Subjective Patient comments: no complaints, pain well controlled, incisional pain (Minimal incisional pain), tolerating diet and flatus present infant status: doing well and well [place] feeding status: exclusively Exam Constitutional Vital Signs, click to edit/add: Last Vital Signs Temp 98.3 F 12/01/24 03:23 Pulse 68 12/01/24 03:23 Resp 16 12/01/24 03:23 BP 109/56 12/01/24 03:23 Pulse Ox 99 11/30/24 15:38 O2 Del Method Room Air 12/01/24 03:23 Documenting provider has reviewed patient's vital signs: yes Common normals: no apparent distress, oriented x3, healthy appearing and well nourished General appearance: cooperative, comfortable, well kempt and well developed Orientation/consciousness: Yes awake, Yes oriented to person, Yes oriented to place and Yes oriented to time Chest Common normals: inspection of chest normal and inspection of breasts normal GI Common normals: Normal to inspection, nondistended, normoactive bowel sounds present, soft to palpation and non-tender Auscultation: hypoactive bowel sounds Palpation: soft (Fundus firm and 1 fingerbreadth below the umbilicus.) and other (Incision with bandage intact.) Back & Pelvis Pelvis: other (Mild lochia rubra is present.) Extremity Common normals: normal to inspection, no calf tenderness and no pedal edema Results Labs Labs: Short CBC 12/01/24 Range/Units 06:23 WBC 12.0 H (4.0-11.0) 10^3/uL Hgb 9.3 L (12.0-16.0) g/dL Hct 26.0 L (36.0-48.0) % Plt Count 206 (150-450) 10^3/uL Pulse Oximetry Attestation: I have reviewed the pertinent pulse oximetry results. Urinary Catheter Management Urinary Catheter Management Urethral: Cath placed during this visit: yes Urethral indwelling: No Insertion date: 11/30/24 Insertion time: 08:15 OB - PN: A/P Assessment and Plan (1) History of total hip replacement: Qualifiers: Laterality: right Qualified Code(s): Z96.641 - Presence of right artificial hip joint (2) H/O gastric sleeve: Plan Patient is postoperative day #1 status post repeat progressing well. Plan - day: 1 Plan: routine postop care Time Spent with Patient Time: Total time spent is greater than 50% in coordination of care (as documented) at patient's floor/unit and/or counseling patient: Total time spent with greater than 50% in coordination of care (as documented) at patient's floor/unit and/or counseling patient: less than 15 minutes
[2024-12-01] MEDS: CALCIUM CARBONATE 500 MG (200MG ELEMENTAL) TAB CHEW PO (11:34)
[2024-12-01] MEDS: IBUPROFEN 400 MG TABLET 800 MG PO (15:58)
[2024-12-01 16:00] VITALS: BP 119/67; PULSE 81
[2024-12-01] MEDS: ENOXAPARIN SODIUM 40 MG/0.4 ML SYRINGE SUBQ (20:36)
[2024-12-02] MEDS: IBUPROFEN 400 MG TABLET 800 MG PO ×2 (00:27→08:33)
[2024-12-02] MEDS: SIMETHICONE 80 MG TAB.CHEW PO ×2 (00:27→08:34)
[2024-12-02 00:30] VITALS: BP 121/67; PULSE 79; TEMP 36.6; O2SAT 100
[2024-12-02 00:46] VITALS: O2SAT 100
[2024-12-02] MEDS: ACETAMINOPHEN 500 MG TABLET 1000 MG PO (06:17)
[2024-12-02 08:27] VITALS: BP 118/80; PULSE 83; TEMP 36.9
[2024-12-02 08:30] VITALS: O2SAT 100
[2024-12-02] MEDS: DOCUSATE SODIUM 100 MG CAPSULE PO (08:34)
--- NOTE | 2024-12-02 10:30 | P.DS_ITS ---
DS: Providers Provider Date of admission: 11/30/24 05:33 Primary care physician: Ally Craig NP Admitting clinician: Cedric Warner Attending physician on admission: Cedric Warner Consults: 11/30/24 Consult to Anesthesiology Routine Consulting Provider: Cedric Warner Reason for consultation: Spinal Attending physician on discharge: Mazin Gill Discharging clinician: Mazin Gill Anticipated date of discharge: 12/02/24 DS: Diagnosis Discharge Diagnosis (1) History of total hip replacement: Assessment and plan: Stable. Continue current management Qualifiers: Laterality: right Qualified Code(s): Z96.641 - Presence of right artificial hip joint (2) H/O gastric sleeve: Assessment and plan: Stable. Continue current management Plan Stable. Continue current management OB - DS: Summary Hospital Course Hospital Course: Uneventful hospital course. Time spent discussing smoking cessation with patient: 3 to 10 minutes Peripartum Data - Procedures: Procedures Operation Date: 11/30/24 07:30 Actual Procedure Side Surgeon p Repeat , Bilateral Salpingectomy Bilateral Cedric Warner DO Peripartum Data - Vaginal Delivery Procedures: Procedures Operation Date: 11/30/24 07:30 Actual Procedure Side Surgeon p Repeat , Bilateral Salpingectomy Bilateral Cedric Warner DO Complications complications: none Delivery method: section Gender: female Discharge plan: home Status at Discharge Cognitive/behavioral status at discharge: Normal Functional status at discharge: independent ambulation Overall status at discharge: patient is back to baseline Time Spent with Patient Time attestation: Total time spent providing and/or coordinating discharge services: Time spent: less than 30 minutes Specific discharge activities: No heavy lifting or bending for 4 to 6 weeks Exam Constitutional Vital Signs, click to edit/add: Last Vital Signs Temp 98.4 F 12/02/24 08:27 Pulse 83 12/02/24 08:27 Resp 16 12/02/24 08:30 BP 118/80 12/02/24 08:27 Pulse Ox 100 12/02/24 08:30 O2 Del Method Room Air 12/02/24 08:30 Documenting provider has reviewed patient's vital signs: yes Common normals: no apparent distress, average body habitus, oriented x3, no limitations, healthy appearing, alert and well nourished General appearance: cooperative, comfortable, well kempt and well developed Orientation/consciousness: Yes awake, Yes oriented to person, Yes oriented to place and Yes oriented to time Chest Common normals: inspection of breasts normal GI Common normals: Normal to inspection, nondistended, normoactive bowel sounds present, soft to palpation and non-tender Inspection: normal to inspection (Incision is dry and clear without drainage.) Auscultation: normoactive bowel sounds Back & Pelvis Pelvis: other (Mild lochia rubra is present.) Extremity Common normals: normal to inspection, no calf tenderness and no pedal edema Discharge Plan Discharge Disposition: Home, Self-Care Condition: Good Assessment: Patient is postop day #2 status post repeat doing well Health Concerns: None Plan of Treatment: Routine post care Discharge Medications: New acetaminophen 500 mg Tablet 1,000 mg PO Q6H PRN (Reason: Pain) 28 Days Qty: 90 0RF ibuprofen 400 mg Tablet 800 mg PO Q8H PRN (Reason: Pain) 28 Days Qty: 90 0RF docusate sodium 100 mg Capsule 100 mg PO BID 60 Days Qty: 120 0RF simethicone [Gas Relief 80 (simethicone)] 80 mg Tablet,Chewable 80 mg PO QID PRN (Reason: Abdominal Distention) 28 Days Qty: 90 0RF Continued cyanocobalamin (vitamin B-12) 1,000 mcg/mL solution 100 mcg IM Q3D buspirone 7.5 mg tablet 7.5 mg PO TID Discontinued lbvkqnhx-[id number]-Xl-FA 1 mg tablet 1 tab PO DAILY Print Language: Armenian Forms: Portal Instructions
== END 2024-12-02 11:25 | disposition home or self-care (01) | DRG 785 ==
PROVIDERS: Admitting Provider Obstetrics & Gynecology; PCP Nurse Practitioner; Visit Provider Obstetrics & Gynecology
PROC: 10D00Z1 Extraction of Products of Conception, Low, Open Approach (ICD-10-PCS; CPT 59514; principal; 2024-11-30 07:30)
DX: O34.211 Maternal care for low transverse scar from previous cesarean delivery (principal); O99.844 Bariatric surgery status complicating childbirth; Z3A.38 38 weeks gestation of pregnancy; Z37.0 Single live birth; Z96.641 Presence of right artificial hip joint; Z30.2 Encounter for sterilization; Z90.49 Acquired absence of other specified parts of digestive tract; O99.214 Obesity complicating childbirth; E66.01 Morbid (severe) obesity due to excess calories
CPT/HCPCS: 36415; 51702; 64488; 80307; 81001; 85025; 86850; 86900; 86901; 87086; 88302; 94667; 94668; J0131; J0665; J0690; J1100; J1650; J1885; J2274; J2371; J2405; J2590; J2765; J3490

== ENCOUNTER 2024-12-06 08:19 | Outpatient (OUT) | payer OTHER, SELFPAY ==
--- OUTSIDE RECORDS SUMMARY | 2023-09-30 06:30 | XMS_ITS ---
Author Organization [facility] vices Address [address], [place] [id number] Care Team Providers Care Fruit Pitter Name Role Phone Kelli Hyde Unavailable [phone] Dionne Grande Unavailable [phone] REASON FOR VISIT 2 week f/u Medications [...] Problem Status W/U Status Risk Notes Problem [id number] Anxiety with depression (F41.8) Active confirmed Encounters Encounter Location Date Provider Diagnosis Main [address] [place], [place] [id number] 09/30/2023 Dionne Grande Bipolar disorder F31 .9 ; [facility] intermediate current use of antipsychotic medication Z79.899 and Anxiety with depression F41.8 Assessments Encounter Date Diagnosis (ICD Code) Assessment Notes Treatment Notes Treatment Clinical Notes Section Notes 09/30/2023 Bipolar disorder (ICD-10 - F31.9) needs improvement Schedule wellness with PCP. Obtain ordered labs. 09/30/2023 emt intermediate current use of antipsychotic medication (ICD-10 - [...] * Jana RAMANDOB:1995 ( 29 yo F)Acc No.[id number]:09/30/2023 Patient: Sean SOTO Jana Provider: TANYA Centeno :1995 A ge:28 Y S ex:Female Date:09/30/2023 Address:[address] [place] [phone] Subjective: * Chief Complaints: * 1 . [...] Problems: * Billing Information: * Visit Code: 20600 Office Visit Est 10 -19 minutes. * Procedure Codes: Care Plan Details* * Electronic signature of TANYA Peters on 12/06/2024 at 08:26 AM EDT Sign off status: Pending * Provider: TANYA Centeno Date: 09/30/2023 Generated for Jc eason/William/Rony on: 12/06/2024 08:26 AM EDT
--- OUTSIDE RECORDS SUMMARY | 2024-01-07 05:00 | XMS_ITS ---
Author Organization [facility] Address [address] [place] [address] Care Team Providers Care Corporate Strategy Intern Name Role Phone Pascale Mcmahon Unavailable [phone] REASON FOR VISIT LUMBAR PAIN Encounters Encounter Location Date Provider Diagnosis [facility] Office [address] [place] [address] [place] [address] 01/07/[address] [facility] Lumbar back pain M54.50 Assessments Encounter Date Diagnosis (ICD Code) Assessment Notes Treatment Notes Treatment Clinical Notes Section Notes 01/07/2024 Lumbar back pain (ICD-10 - M54.50) Plan Of Treatment Pending Test Test Name Order Date Lumbar spine 2v flex and ext - 13503 Progress Notes * RE CULLENCA CDOB:1995 (29 yo F)Acc No.[id number]:01/07/2024 Patient: MADDIE VEGA Provider: Edwardo García MD, PhD :1995 A ge:28 Y S ex:Female Date:01/07/2024 Address:[address] [place], [place] [id number] Subjective: * Chief Complaints: * 1 . LUMBAR PAIN. * Medical History: Objective: * Vitals: Assessment: * Assessment: 1. L umbar back pain - M54.50 (Primary) Plan: * Treatment: Forms: * Images: * Electronic signature of Selv on [facility] Jessenia MD, PHD on 12/06/2024 at 08:25 AM EDT Sign off status: Pending * Provider: Edwardo García MD, PhD Date: 0 01/07/2024 Generated for Printi ng/William/Lauraitting on: 0 12/06/2024 08:25 AM EDT
--- OUTSIDE RECORDS SUMMARY | 2024-11-20 04:00 | XMS_ITS ---
Author Organization [facility] vices Address [address], [place] [id number] Care Team Providers Care Peanut Sheller Name Role Phone Mary Ellen Kelli Unavailable [phone] REASON FOR VISIT Bi Polar disorder Social History Sex Assigned At : Social History Observation Description Sex Assigned At Female Encounters Encounter Location Date Provider Diagnosis Main [address] [place] [id number] 11/20/2024 Kelli Hyde Plan Of Treatment No Information Progress Notes * Jana ORNELASDOB:1995 ( 29 yo F)Acc No.[id number]:11/20/2024 Patient: Jana VEGA Provider: TANYA Regalado :1995 A ge:29 Y S ex:Female Date:11/20/2024 Address:[address] [place], [place] [phone] Subjective: * Chief Complaints: * 1 . Bi Polar disorder. * Medical History: Objective: * Vitals: Assessment: Plan: * Treatment: Care Plan: * Problems: * Billing Information: * Visit Code: * Procedure Codes: Care Plan Details* * Electronic signature of TANYA Dixon on 12/06/2024 at 08:25 AM EDT Sign off status: Pending * Provider: TANYA Regalado Date: 11/20/2024 Generated for Jc ng/William/eTransmitting on: 12/06/2024 08:25 AM EDT
--- OUTSIDE RECORDS SUMMARY | 2024-11-22 04:30 | XMS_ITS ---
Author Organization [facility] vices Address [address], [place] [id number] Care Team Providers Care Business Applications Developer Name Role Phone Mary Ellen Kelli Unavailable [phone] REASON FOR VISIT f/u Social History Sex Assigned At : Social History Observation Description Sex Assigned At Female Encounters Encounter Location Date Provider Diagnosis Main [address] [place] [place] [id number] 11/22/2024 Kelli Hyde Plan Of Treatment No Information Progress Notes * Jana ORNELASDOB:1995 ( 29 yo F)Acc No.[id number]:11/22/2024 Patient: Jana VEGA Provider: TANYA Regalado :1995 A ge:29 Y S ex:Female Date:11/22/2024 Address:[address] [place], [place] [phone] Subjective: * Chief Complaints: * 1 . F/u. * Medical History: Objective: * Vitals: Assessment: Plan: * Treatment: Care Plan: * Problems: * Billing Information: * Visit Code: * Procedure Codes: Care Plan Details* * Electronic signature of TANYA Dixon on 12/06/2024 at 08:25 AM EDT Sign off status: Pending * Provider: TANYA Regalado Date: 11/22/2024 Generated for Chichoi ng/Fachrissyg/eTransmitting on: 12/06/2024 08:25 AM EDT
--- OUTSIDE RECORDS SUMMARY | 2024-12-06 08:25 | XMS_ITS | Encounter Summary ---
Author Organization [facility] Address [address] [place] [address] Care Team Providers Care Travel Ot Name Role Phone Zoraida Travis Unavailable Encounter Details Date Type Department Care Team (Late Contact Info) Description 11/22/2024 Bamboo flowsheet [facility] [address] [facility] [place] [address] Zoraida Travis PA [address] [place] [address] Dr [place], [facility] Social History Tobacco Use Types [...] Care Team (Late st Contact Info) Description 12/07/2024 10:50 AM EDT Visit [facility] [address] [facility] [place] [address] Zoraida Travis PA [address] [place] [address] [place], [place] [id number] documented as of this encounter Visit Diagnoses Not on filedocumented in this encounter Care Teams Travel Ot Relationship Specialty Start Date End Date Zoraida Travis PA [address] [place] [address] [place] [address] PCP - Medical [place] [employer] 01/20/24 06/20/99 documented as of this encounter
--- OUTSIDE RECORDS SUMMARY | 2024-12-06 08:25 | XMS_ITS | Encounter Summary ---
Author Organization [facility] Address [address] [place] [address] Care Team Providers Care Radio Operator Ground Name Role Phone Zoraida Travis Unavailable Encounter Details Date Type Department Care Team (Late st Contact Info) Description 08/17/2024 Orders Only [facility] OB [address] [place] [address] Elena Constantino MA [address] [place] [address] Social History Tobacco Use Types Packs/Day Years [...] AM EDT Visit [facility] B[facility] OB [address] [place] [address] Zoraida Travis PA [address] [place], [place] [phone] documented as of this encounter Procedures Procedure Name Priority Date/Time Associated Diagnosis Comments PAP SMEAR Routine 07/31/2024 12:00 AM EST documented in this encounter Results * Pap Smear (07/31/2024 12:00 AM EST) Swab Cervical swab / Unknown us Zoraida [facility] CYTOLOGY ORDERABLES Final Re sult EXTERNAL LAB documented in this encounter Visit Diagnoses Not on filedocumented in this encounter Care Teams Radio Operator Ground Relationship Specialty Start Date End Date Zoraida Travis PA [address] [place], [place] [address] PCP - Medical [place] [employer] 01/20/24 06/20/99 documented as of this encounter
--- OUTSIDE RECORDS SUMMARY | 2024-12-06 08:25 | XMS_ITS | Clinical Summary ---
Author Organization [facility] Address [address] [place] [address] Care Team Providers Care Animal Ride Attendant Name Role Phone Zoraida Travis Unavailable Allergies No known active allergies Medications busPIRone (Buspar) 15 MG tablet Take by mouth 2 (two) times a day. Active MV-Min-Fe Fum-FA-DHA ( 1 PO) Acti ve omeprazole OTC (PriLOSEC OTC) 20 MG EC tablet Take 20 mg by mouth in the morning. 5 Active magnesium oxide (Mag-Ox) 400 MG tabletIndication s:Nonintractable headache, unspecified chronicity pattern, unspecified headache type Take 1 tablet (400 mg) by mouth Daily 30 tablet 2 5 02/21/20 25 Active Cyanocobalamin 1000 MCG/ML kitIndications:H /O gastric sleeve Inject 1 mL as directed every 30 (thirty) days 1 kit 11 5 12/04/19 25 Encounters Date Type Department Care Team Description 12/01/2024 Clinisync Result Encounter NOMS External Department Unsolicited Arminda Warner, DO 11/30/2024 Abstract [facility] BCP OB [address] [place] [address] Celsa Coats MA 11/30/2024 Clinisync Result Encounter NOMS External Department Unsolicited Arminda Warner, DO 11/27/2024 Abstract [facility] OB [address] [place] [address] Celsa Coats MA 11/24/2024 Clinisync Result Encounter NOMS External Department Unsolicited Arminda Warner, DO 11/22/2024 9:50 AM EDT Routine [facility] OB [address] [facility] [place] [address] Zoraida Travis PA Nonintractable headache, unspecified chronicity pattern, unspecified headache type (Primary Dx); Third trimester ([facility]); 36 weeks gestation of ([facility]) 11/22/2024 Bamboo flowsheet [facility] BCP OB [address] [facility] [place] [address] Zoraida Travis PA 11/21/2024 Clinisync Result Encounter NOMS External Department Unsolicited Arminda Warner, DO 11/17/2024 Clinisync Result Encounter NOMS External Department Unsolicited Arminda Warner, DO 11/14/2024 1:50 PM EDT Routine [facility] BCP OB [address] [facility] [place] [address] Arminda Warner, DO 35 weeks gestation of ([facility]); Third trimester ([facility]) 11/14/2024 Bamboo flowsheet [facility] OB [address] [place] [address] [place] [address] Arminda Warner, DO 11/10/2024 Clinisync Result Encounter NOMS External Department Unsolicited Arminda Warner, DO 11/09/2024 9:50 AM EDT Routine [facility] BCP OB [address] [facility] [place] [address] Zoraida Travis PA 35 weeks gestation of ([facility]); Third trimester ([facility]) 11/09/2024 Bamboo flowsheet [facility] OB [address] [facility] [place] [address] Zoraida Travis PA 11/08/2024 Abstract [facility] OB [address] [place] [address] [place] [address] Arminda Warner, 11/03/2024 Clinisync Result Encounter NOMS External Department Unsolicited Arminda Warner, 11/03/[address] [place] [address] Celsa Coats MA 11/02/[address] [place] [address] [phone] Zoraida Travis PA H/O gastric sleeve 10/30/2024 Clinisync Result Encounter NOMS External Department Unsolicited Arminda Warner, 10/25/2024 2:20 PM EDT Routine NOMS [address] [place] [address] Arminda Warner, Third trimester ([facility]); 32 weeks gestation of ([facility]); H/O gastric sleeve 10/25/2024 Bamboo flowsheet NOMS [address] [place] [address] Arminda Warner DO 10/11/2024 9:40 AM EDT Routine NOMS [address] [place] [address] Frances Pena, MOLINA Third trimester ([facility]); 30 weeks gestation of ([facility]) 10/11/2024 Bamboo flowsheet NOMS [address] [place] [address] Frances Pena NP 09/26/2024 9:50 AM EDT Routine [facility] OB [address] [place] [address] [place] [address] Arminda Warner, Third trimester ([facility]); 28 weeks gestation of ([facility]) 09/26/2024 Bamboo flowsheet [facility] OB [address] [place] [address] [place] [address] Arminda Warner DO 09/22/2024 Abstract [facility] OB [address] [facility] [place] [address] Arminda Warner DO 09/09/2024 Clinisync Result Encounter [...] Description 12/07/2024 10:50 AM EDT Visit [facility] OB [address] [facility] [place] [address] Zoraida Trvais PA [address] [facility] [place] [address] Health Maintenance Due Date Last Done Comments Influenza Vaccine (Season Ended) 2025 Procedures Procedure Name Priority Date/Time Associated Diagnosis Comments ALL CBC WITH AUTO DIFF Routine 12/01/2024 6:23 AM EDT ALL CBC WITH AUTO DIFF Routine 11/30/2024 6:00 AM EDT TBH DRUG SCREEN RAPID (URINE) Routine 11/30/2024 5:45 AM EDT [facility] URINALYSIS, WITH MICROSCOPIC Routine 11/30/2024 5:45 AM EDT US OB BPP W NON-STRESS 11/24/2024 4:18 PM EDT POCT URINALYSIS DIPSTICK Routine 11/22/2024 10:19 AM EDT Third trimester ([facility]) US AMNIOTIC FLUID VOLUME 11/21/2024 8:59 AM EDT US OB BPP W NON-STRESS 11/17/2024 3:46 PM EDT POCT URINALYSIS DIPSTICK Routine 11/14/2024 2:12 PM EDT 35 weeks gestation of ([facility]) Third trimester ([facility]) US OB BPP W NON-STRESS 11/10/2024 3:48 PM EDT POCT URINALYSIS DIPSTICK Routine 11/09/2024 10:11 AM EDT 35 weeks gestation of ([facility]) US OB BPP W NON-STRESS 11/03/2024 4:13 PM EDT US OB BPP W NON-STRESS 10/30/2024 9:28 AM EDT POCT URINALYSIS DIPSTICK Routine 10/25/2024 3:28 PM EDT Third trimester ([facility]) POCT URINALYSIS DIPSTICK Routine 10/11/2024 9:59 AM EDT Third trimester ([facility]) POCT URINALYSIS DIPSTICK Routine 09/26/2024 10:12 AM EDT Third trimester ([facility]) 28 weeks gestation of ([facility]) ALL CBC WITH AUTO DIFF Routine 09/09/2024 10:12 AM EDT GLUCOSE 1 HOUR Routine 09/09/2024 10:12 AM EDT from Last 3 Months Results * (ABNORMAL) ALL CBC WITH AUTO DIFF (12/01/2024 6:23 AM EDT) Only the most recent of3 resultswithin the time period is included. TBH WBC 12.0(H) 4.0 - 11.0 10 3/uL TBH TBH RBC 2.95(L) 4.20 - 5.40 10 6/uL TBH TBH HGB 9.3(L) 12.0 - 16.0 g/dL TBH TBH HCT 26.0(L) 36.0 - 48.0 % TBH TBH MCV 88.1 81.0 - 99.0 fL TBH TBH MCH 31.5 26.7 - 34.0 pg TBH TBH MCHC 35.8(H) 29.9 - 35.2 g/dL TBH TBH RDW 13.3 11.0 - 15.0 % TBH TBH PLT 206 150 - 450 10 3/uL TBH TBH MPV 10.6 9.5 - 13.5 fL TBH NEUTROPHILS PERCENT AUTO 77.0(H) 43.0 - 75.0 % TBH LYMPHOCYTES PERCENT AUTO 15.2(L) 20.5 - 60.0 % TBH MONOCYTES PERCENT AUTO 7.0 1.7 - 12.0 % TBH TBH EO % 0.2(L) 0.9 - 7.0 % TBH BASOPHILS PERCENT AUTO 0.2 0.2 - 2.0 % TBH IMMATURE GRANULOCYTES PCT AUTO 0.4 0.0 - 0.5 % TBH NEUTROPHILS ABSOLUTE AUTO 9.2(H) 1.4 - 6.5 10 3/uL TBH LYMPHOCYTES ABSOLUTE AUTO 1.8 1.2 - 3.8 10 3/uL TBH MONOCYTES ABSOLUTE AUTO 0.8 0.3 - 0.8 10 3/uL TBH TBH EO # 0.0 0.0 - 0.7 10 3/uL TBH BASOPHILS ABSOLUTE AUTO 0.0 0.0 - 0.1 10 3/uL TBH IMMATURE GRANULOCYTES ABS AUTO 0.05(H) 0.00 - 0.03 10 3/uL TBH 12/01/2024 6:23 AM EDT 12/01/2024 6:41 AM EDT Narrative CLINISYNC - 12/01/2024 6:56 AM EDT us Arminda Alana DO CLINISYNC Final Result CLINISYDE TB * TBH DRUG SCREEN RAPID (URINE) (11/30/2024 5:45 AM EDT) CANNABINOID SCREEN URINE NEGATIVE NEGATIVE TBH PHENCYCLIDINE SCREEN URINE NEGATIVE NEGATIVE TBH COCAINE SCREEN URINE NEGATIVE NEGATIVE TBH METHAMPHETAMINES SCREEN URINE NEGATIVE NEGATIVE TBH OPIATE SCREEN URINE NEGATIVE NEGATIVE TBH AMPHETAMINE SCREEN URINE NEGATIVE NEGATIVE TBH BENZODIAZEPINES SCREEN URINE NEGATIVE NEGATIVE TBH TRICYCLIC ANTIDEPRESSANT URINE NEGATIVE NEGATIVE TBH METHADONE SCREEN URINE NEGATIVE NEGATIVE TBH BARBITURATES SCREEN URINE NEGATIVE NEGATIVE TBH OXYCODONE SCREEN URINE NEGATIVE NEGATIVE TBH BUPRENORPHINE SCREEN URINE NEGATIVE NEGATIVE TBH Comment: DRUG CLASS TEST SYSTEM CUT-OFF CONCENTRATIONS ARE FOLLOWS: AMP (Amphetamine): 500 ng/mL BAR (Barbiturates): 200 ng/mL BZO (Benzodiazepines): 150 ng/mL BUP (Buprenorphine): 10 ng/mL LIBAN (Cocaine): 150 ng/mL mAMP (Methamphetamine): 500 ng/mL MTD (Methadone): 200 ng/mL OPI (Opiates): 100 ng/mL OXY (Oxycodone): 100 ng/mL PCP (Phencyclidine): 25 ng/mL THC (Cannabinoids): 50 ng/mL TCA (Trycyclic Antidepressants): 300 ng/mL 11/30/2024 5:4 5 AM EDT 11/30/2024 6:10 AM EDT Narrative CLINISYNC - 11/30/2024 6:26 AM EDT us Arminda Alana DO CLINISYNC Final Result VER[facility]LL [facility] * (ABNORMAL) [facility] URINALYSIS, WITH MICROSCOPIC (11/30/2024 5:45 AM EDT) COLOR URINE YELLOW YELLOW TBH CLARITY URINE CLEAR CLEAR TBH SPECIFIC GRAVITY URINE 1.025 1.005 - 1.025 TBH PH URINE 6.0 5.0 - 9.0 TBH PROTEIN URINE TRACE NEG/TRACE mg/dL TBH GLUCOSE URINE UA NEGATIVE NEGATIVE mg/dL TBH BILIRUBIN URINE NEGATIVE NEGATIVE TBH KETONES URINE TRACE(A) NEGATIVE mg/dL TBH BLOOD URINE NEGATIVE NEGATIVE TBH NITRITE URINE NEGATIVE NEGATIVE TBH UROBILINOGEN URINE 0.2 0.2 - 1.0 EU/dL TBH LEUKOCYTE ESTERASE URINE NEGATIVE NEGATIVE TBH TBH WBC 2-5(A) NONE SEEN #/HPF TBH TBH RBC NONE SEEN 0 - 2 #/HPF TBH BACTERIA URINE SMALL(A) NONE SEEN #/HPF TBH MUCUS URINE SMALL(A) NONE SEEN TBH SQUAMOUS EPITHELIAL CELL URINE MANY(A) NONE/RARE #/LPF TBH CRYSTALS SEEN? None Seen None Seen #/HPF TBH CAST SEEN? NONE SEEN NONE SEEN #/LPF TBH URINE CULTURE INDICATED YES-LC TBH 11/30/2024 5:45 AM EDT 11/30/2024 6:10 AM EDT Narrative CLINISYNC - 11/30/2024 6:24 AM EDT us Arminda Alana DO CLINISYNC Final Result Performing Organization Address City/[facility] Co de Phone Number [facility] * US OB BPP W NON-STRESS (11/24/2024 4:18 PM EDT) Only the most recent of5 resultswithin the time period is included. Anatomical Region Laterality Modality Other 11/24/2024 4:18 PM EDT Narrative 11/24/2024 4:20 PM EDT [address] [address] Ultrasound Report Signed Patient: MADDIE RAMAN MR#: [id number] : 1995 Acct:[id number] Age/Sex: 29 / F ADM Date: 11/24/24 Loc: [facility] 250-[address]: Arminda Warner D.O. Ordering Physician: Arminda Warner D.O. Date of Service: 11/24/24 Procedure(s): US OB BPP w non-stress Accession Number(s): [id number] cc: Arminda Warner D.O.; Ally Craig NP The [place] [address] Patient Name: MADDIE RAMAN MRN: [id number]:[id number] date: 1995 Sex: F Assigned Patient Location: [facility] Current Patient Location: [facility] Accession/Order Number: [id number] Exam Date: 11/24/2024 16:17 Report Date: 11/24/2024 [...] Diaz M.D. 11/24/2024 4:18 PM Dictation Location: [place] [address] Electronically authenticated by: [id number] Y Date: 11/24/2024 16:18 Dictated By: Anthony Diaz D.O. Signed By: 11/24/24 1620 DD/ 1618 TD/TT: Supervisor Asbestos Removal: Procedure Note Radiology, Radiologist, MD - 11/24/2024 [place] [address] Ultrasound Report Signed Patient: MADDIE RAMAN CMR#: [id number] : 1995Acct:[id number] Age/Sex: 29 / FADM Date: 11/24/24 Loc: [facility] 250-[address]: Arminda Warner D.O. Ordering Physician: Arminda Warner D.O. Date of Service: 11/24/24 Procedure(s): US OB BPP w non-stress Accession Number(s): [id number] cc: Arminda Warner D.O.; Ally Craig NP [place] [address] Patient Name: MADDIE RAMAN MRN: [facility]:[id number] date: 1995 Sex: F Assigned Patient Location: [facility] Current Patient Location: [facility] Accession/Order Number: [id number] Exam Date: 11/24/2024 16:17 Report Date: 11/24/2024 [...] Diaz M.D. 11/24/2024 4:18 PM Dictation Location: [place] [address] Electronically authenticated by: [id number] Y Date: 6:18 Dictated By: Anthony Diaz D.O. Signed By:11/24/24 1620 DD/ 1618 TD/TT: Supervisor Asbestos Removal: us Arminda Warner DO CLINISYNC IMAGING Final [...] AM EDT Narrative 11/21/2024 9:06 [place] [address] Ultrasound Report Signed Patient: MADDIE RAMAN MR#: [id number] : 1995 Acct:[id number] Age/Sex: 29 / F ADM Date: 11/21/24 Loc: [place] [address]: Arminda Warner D.O. Ordering Physician: Arminda Warner D.O. Date of Service: 11/21/24 Procedure(s): US OB amniotic fluid vol Accession Number(s): [id number] cc: Arminda Warner D.O.; Ally Craig NP [place] [address] Patient Name: MADDIE RAMAN MRN: [id number] date: 1995 Sex: F Assigned Patient Location: [facility] Current Patient Location: Accession/Order Number: [id number] Exam Date: 11/21/2024 08:56 Report Date: 11/21/2024 [...] Jensen M.D. 11/21/2024 8:59 AM Dictation Location: [place] [address] Electronically authenticated by: [id number] Y Date: 11/21/2024 08:59 Dictated By: Smita Jensen M.D. Signed By: 11/21/24905 DD/ TD/TT: Supervisor Asbestos Removal: Procedure Note Radiology, Radiologist, MD - 11/21/2024 [place] [address] Ultrasound Report Signed Patient: MADDIE RAMAN CMR#: [id number] : 1995Acct:[id number] Age/Sex: FADM Date: 11/21/24 Loc: [place] [address]: Arminda Warner D.O. Ordering Physician: Arminda Warner D.O. Date of Service: 11/21/24 Procedure(s): US OB amniotic fluid vol Accession Number(s): [id number] cc: Arminda Warner D.O.; Ally Craig NP The [place] [id number] Patient Name: MADDIE RAMAN MRN: TBH:[id number] date: 1995 Sex: F Assigned Patient Location: [facility] Current Patient Location: Accession/Order Number: [id number] Exam Date: 11/21/2024 08:56 Report Date: 11/21/2024 [...] Jensen M.D. 11/21/2024 8:59 AM Dictation Location: [place] [address] Electronically authenticated by: [id number] Y Date: 508:59 Dictated By: Smita Jensen M.D. Signed By:11/21/24905 DD/ 8 TD/TT: Supervisor Asbestos Removal: Arminda Warner DO IMG XR PROCEDURES Final Result * GLUCOSE 1 HOUR (09/09/2024 10:12 AM EDT) GLUCOSE 1 HOUR 98 <130 mg/dL TBH 09/09/2024 10:1 2 AM EDT 09/09/2024 10:13 AM EDT Narrative CLINISYNC - 09/09/2024 10:27 AM EDT Zoraida SEG[facility] LAB BLOOD ORDERABLES Final Resul t [facility] from Last 3 Months Insurance [employer] Care Teams Animal Ride Attendant Relationship Specialty Start Date End Date Zoraida Travis PA [address] [place] [address] [place] [address] PCP - Medical [place] [employer] 01/20/24 06/20/99
--- OUTSIDE RECORDS SUMMARY | 2024-12-06 08:25 | XMS_ITS | Encounter Summary ---
Author Organization [facility] Address [address] [place] [address] Care Team Providers Care Burnisher And Bumper Name Role Phone Zoraida Travis Unavailable Encounter Details Date Type Department Care Team (Late st Contact Info) Description 11/24/2024 Clinisync Result Encounter NOMS External Department Unsolicited Arminda Warner DO [address] [facility] [address] [place], [place] [phone] Social History Tobacco Use Types Packs/Day Years [...] AM EDT Visit [facility] BCP OB [address] [facility] [address] Zoraida Travis PA [address] [facility] [address] [place], [place] [phone] documented as of this encounter Procedures Procedure Name Priority Date/Time Associated Diagnosis Comments US OB BPP W NON-STRESS 11/24/2024 4:18 PM EDT documented in this encounter Results * US OB BPP W NON-STRESS (11/24/2024 4:18 PM EDT) Anatomical Region Laterality Modality Other 11/24/2024 4:18 PM EDT Narrative 11/24/2024 4:20 [place] [address] Ultrasound Report Signed Patient: MADDIE RAMAN MR#: [id number] : 1995 Acct:[id number] Age/Sex: 29 / F ADM Date: 11/24/24 Loc: [facility] 250-[address]: Arminda Warner D.O. Ordering Physician: Arminda Warner D.O. Date of Service: 11/24/24 Procedure(s): US OB BPP w non-stress Accession Number(s): [id number] cc: Arminda Warner D.O.; Ally Craig NP [place] [address] Patient Name: MADDIE RAMAN MRN: [id number] date: 1995 Sex: F Assigned Patient Location: [facility] Current Patient Location: [facility] Accession/Order Number: [id number] Exam Date: 11/24/2024 16:17 Report Date: 11/24/2024 [...] Diaz M.D. 11/24/2024 4:18 PM Dictation Location: [place] [address] Electronically authenticated by: [id number] Y Date: 11/24/2024 16:18 Dictated By: Anthony Diaz D.O. Signed By: 11/24/24 1620 DD/ TD/TT: Bartender: Procedure Note Radiology, Radiologist, - 11/24/2024 [place] [address] Ultrasound Report Signed Patient: MADDIE RAMAN CMR#: [id number] : 1995Acct:[id number] Age/Sex: 29 / FADM Date: 11/24/24 Loc: [facility] 250-[address]: Arminda Warner D.O. Ordering Physician: Arminda Warner D.O. Date of Service: 11/24/24 Procedure(s): US OB BPP w non-stress Accession Number(s): [id number] cc: Arminda Warner D.O.; Ally Craig NP The [place] [phone] Patient Name: MADDIE RAMAN MRN: [id number] date: 1995 Sex: F Assigned Patient Location: [facility] Current Patient Location: [facility] Accession/Order Number: [id number] Exam Date: 11/24/2024 16:17 Report Date: 11/24/2024 [...] Diaz M.D. 11/24/2024 4:18 PM [facility]ictation [facility] Electronically authenticated by: [id number] Y Date: 6:18 Dictated By: Anthony Diaz D.O. Signed By:11/24/241619 DD/ 17 TD/TT: Bartender: us Arminda Warner DO CL[facility]YNC IMAGING Final Result documented in this encounter Visit Diagnoses Not on filedocumented in this encounter Care Teams Burnisher And Bumper Relationship Specialty Start Date End Date Zoraida Travis PA [address] [place] [address] [place] [address] PCP - Medical [place] [employer] 01/20/24 06/20/99 documented as of this encounter
--- OUTSIDE RECORDS SUMMARY | 2024-12-06 08:25 | XMS_ITS | Encounter Summary ---
Author Organization [facility] Address [address] [place] [address] Care Team Providers Care Jewel Supervisor Name Role Phone Zoraida Travis Unavailable Encounter Details Date Type Department Care Team (Late Contact Info) Description 09/22/2024 Abstract [facility] OB [address] [facility] [place] [address] Cedric Warner DO [address] [facility] [address] [place], [facility]11 Social History Tobacco Use Types Packs/Day [...] AM EDT Visit [facility] [address] [facility] [place] [address] Zoraida Travis PA [address] [place] [address] [place], [place] [phone] documented as of this encounter Visit Diagnoses Not on filedocumented in this encounter Care Teams Jewel Supervisor Relationship Specialty Start Date End Date Zoraida Travis PA [address] [place] [address] [place] [address] PCP - Medical [place] [employer] 01/20/24 06/20/99 documented as of this encounter
--- OUTSIDE RECORDS SUMMARY | 2024-12-06 08:25 | XMS_ITS | Encounter Summary ---
Author Organization [facility] Address [address] [place] [address] Care Team Providers Care Type Bar And Segment Assembler Name Role Phone Zoraida Travis Unavailable Encounter Details Date Type Department Care Team (Late Contact Info) Description 08/24/2024 Abstract [facility] OB [address] [facility] [place] [address] Cedric Warner DO [address] [facility] [address] [place], [facility] Social History Tobacco Use Types Packs/Day [...] AM EDT Visit [facility] BCP OB [address] [facility] [address] Zoraida Travis PA [address] [place] [address] [place], [place] [address] documented as of this encounter Visit Diagnoses Not on filedocumented in this encounter Care Teams Type Bar And Segment Assembler Relationship Specialty Start Date End Date Zoraida Travis PA [address] [place] [address] [place] [address] PCP - Medical [place] [employer] 01/20/24 06/20/99 documented as of this encounter
--- OUTSIDE RECORDS SUMMARY | 2024-12-06 08:25 | XMS_ITS | Encounter Summary ---
Author Organization [facility] Address [address] [place] [address] Care Team Providers Care Vehicle Service Attendant Name Role Phone Zoraida Travis Unavailable Encounter Details Date Type Department Care Team (Late st Contact Info) Description 12/01/2024 Clinisync Result Encounter NOMS External Department Unsolicited Cedric Warner DO [address] [facility] [address] [place], [place] [phone] Social History Tobacco Use Types Packs/Day Years [...] AM EDT Visit [facility] BCP OB [address] [facility] [place] [address] Zoraida Travis PA [address] [facility] [address] [place], [place] [phone] documented as of this encounter Procedures Procedure Name Priority Date/Time Associated Diagnosis Comments ALL CBC WITH AUTO DIFF Routine 12/01/2024 6:23 AM EDT documented in this encounter Results * (ABNORMAL) ALL CBC WITH AUTO DIFF (12/01/2024 6:23 AM EDT) [facility] Signature TBH WBC 12.0(H) 4.0 - 11.0 10 [...] CLINISYNC - 12/01/2024 6:56 AM EDT us Cedric Ochoazio DO CLINISYNC Final Result [facility]NC [facility] documented in this encounter Visit Diagnoses Not on filedocumented in this encounter Care Teams Vehicle Service Attendant Relationship Specialty Start Date End Date Zoraida Travis PA [address] [facility] [address] [place] [phone] PCP - Medical [place] [employer] 01/20/24 06/20/99 documented as of this encounter
--- OUTSIDE RECORDS SUMMARY | 2024-12-06 08:25 | XMS_ITS | Encounter Summary ---
Author Organization [facility] Address [address] [place] [address] Care Team Providers Care Fabric And Accessories Estimator Name Role Phone Zoraida Travis Unavailable Encounter Details Date Type Department Care Team (Late Contact Info) Description 11/08/2024 Abstract [facility] OB [address] [place] [address] Cedric Warner DO [address] [facility] [address] Cheng Velasquez, [facility] [...] AM EDT Visit [facility] BCP OB [address] [place] [address] Zoraida Travis PA [address] [place] [address] documented as of this encounter Visit Diagnoses Not on filedocumented in this encounter Care Teams Fabric And Accessories Estimator Relationship Specialty Start Date End Date Zoraida Travis PA [address] [place] [address] [place] [address] PCP - Medical [place] [employer] 01/20/24 06/20/99 documented as of this encounter
--- OUTSIDE RECORDS SUMMARY | 2024-12-06 08:25 | XMS_ITS | Encounter Summary ---
Author Organization [facility] tem Address [facility] [place]-[id number] [address] [place] [address] Care Team Providers Care Program Coordinator For Residence Life Name Role Phone Ally Craig MANAGER TRANSPORTATION-POLICE SERGEANT Primary Care Provi collin Reason for Visit * Reason Comments Med Change Request Encounter Details Date Type Department Care Team (Late st Contact Info) Description 11/15/2024 Refill Maternal- Medicine at [facility] [address] [place] [address] Erlin Chung MD [address] [facility] [address] [place] [address] History of sleeve gastrectomy Social History Tobacco [...] Author D/C Home General Yes Yaneth Bright, MANAGER TRANSPORTATION-POLICE SERGEANT Note: Evaluation of progress towards goal: Pt plans to d/c home with self care and family support. documented as of this encounter Visit Diagnoses Diagnosis History of sleeve gastrectomy documented in this encounter Additional Health Concerns Assessment Noted Time PHQ-9 Depression Total Score: 19 023 10:14 AM EDT documented as of this encounter Care Teams Program Coordinator For Residence Life Relationship Specialty Start Date End Date Ally Craig, MANAGER TRANSPORTATION-POLICE SERGEANT [address], [place] [address] PCP - General Family Medicine 04/12/18 documented as of this encounter
--- OUTSIDE RECORDS SUMMARY | 2024-12-06 08:25 | XMS_ITS | Encounter Summary ---
Author Organization [facility] Address [address] [place] [address] Care Team Providers Care Adapted Physical Education Aide Name Role Phone Zoraida Travis Unavailable Encounter Details Date Type Department Care Team (Late st Contact Info) Description 11/30/2024 Abstract [facility] OB [address] [facility] [address] Celsa Coats MA Social History Tobacco [...] OB [address] [facility] [address] Zoraida Travis PA [address] [facility] [address] [place], [place] [id number] documented as of this encounter Visit Diagnoses Not on filedocumented in this encounter Care Teams Adapted Physical Education Aide Relationship Specialty Start Date End Date Zoraida Travis PA [address] [place], [place] [address]za[place], [place] [id number] PCP - Medical [place] [employer] 01/20/24 06/20/99 documented as of this encounter
--- OUTSIDE RECORDS SUMMARY | 2024-12-06 08:25 | XMS_ITS | Encounter Summary ---
Author Organization [facility] Address [address] [place] [address] Care Team Providers Care Locksmith Helper Name Role Phone Zoraida Travis Unavailable Encounter Details Date Type Department Care Team (Late st Contact Info) Description 11/30/2024 Clinisync Result Encounter NOMS External Department Unsolicited Cedric Warner DO [address] [place], [place] [id number] Social History Tobacco Use Types Packs/Day Years [...] AM EDT Visit [facility] BCP OB [address] [facility] [place] [address] Zoraida Travis PA [address] [facility] [address] [place], [place] [address] documented as of this encounter Procedures Procedure Name Priority Date/Time Associated Diagnosis Comments ALL CBC WITH AUTO DIFF Routine 11/30/2024 6:00 AM EDT [facility] DRUG SCREEN RAPID (URINE) Routine 11/30/2024 5:45 AM EDT [facility] URINALYSIS, WITH MICROSCOPIC Routine 11/30/2024 5:45 AM EDT documented in this encounter Results * (ABNORMAL) ALL CBC WITH AUTO DIFF (11/30/2024 6:00 AM EDT) [facility] WBC 7.9 4.0 - 11.0 10 3/uL TBH TBH RBC 3.50(L) 4.20 - 5.40 10 6/uL TBH TBH HGB 11.0(L) 12.0 - 16.0 g/dL TBH TBH HCT 30.8(L) 36.0 - 48.0 % TBH TBH MCV 88.0 81.0 - 99.0 fL TBH TBH MCH 31.4 26.7 - 34.0 pg TBH TBH MCHC 35.7(H) 29.9 - 35.2 g/dL TBH TBH RDW 13.2 11.0 - 15.0 % TBH TBH PLT 220 150 - 450 10 3/uL TBH TBH MPV 10.5 9.5 - 13.5 fL TBH NEUTROPHILS PERCENT AUTO 69.5 43.0 - 75.0 % TBH LYMPHOCYTES PERCENT AUTO 19.8(L) 20.5 - 60.0 % TBH MONOCYTES PERCENT AUTO 6.9 1.7 - 12.0 % TBH TBH EO % 2.9 0.9 - 7.0 % TBH BASOPHILS PERCENT AUTO 0.6 0.2 - 2.0 % TBH IMMATURE GRANULOCYTES PCT AUTO 0.3 0.0 - 0.5 % TBH NEUTROPHILS ABSOLUTE AUTO 5.5 1.4 - 6.5 10 3/uL TBH LYMPHOCYTES ABSOLUTE AUTO 1.6 1.2 - 3.8 10 3/uL TBH MONOCYTES ABSOLUTE AUTO 0.6 0.3 - 0.8 10 3/uL TBH TBH EO # 0.2 0.0 - 0.7 10 3/uL TBH BASOPHILS ABSOLUTE AUTO 0.1 0.0 - 0.1 10 3/uL TBH IMMATURE GRANULOCYTES ABS AUTO 0.02 0.00 - 0.03 10 3/uL [facility] 11/30/2024 6:00 AM EDT 11/30/2024 6:10 AM EDT Narrative [facility] - 11/30/2024 6:14 AM EDT Cedric Alana DO [facility] Final Result [facility] TB[facility] * [facility] DRUG SCREEN RAPID (URINE) (11/30/2024 [...] ng/mL TCA (Trycyclic Antidepressants): 300 ng/mL 11/30/2024 5:45 AM EDT 11/30/2024 6:10 AM EDT Narrative [facility] - 11/30/2024 6:26 AM EDT Cedric Alana DO [facility] Final Result [facility] TB * (ABNORMAL) [facility] URINALYSIS, WITH MICROSCOPIC (11/30/2024 [...] TBH URINE CULTURE INDICATED YES-LC [facility] 11/30/2024 5:4 5 AM EDT 11/30/2024 6:10 AM EDT Narrative [facility] - 11/30/2024 6:24 AM EDT us Cedric Alana DO [facility] Final Result [facility] TB documented in this encounter Visit Diagnoses Not on filedocumented in this encounter Care Teams Locksmith Helper Relationship Specialty Start Date End Date Zoraida Travis PA [address] [place] [address] [place] [address] PCP - Medical [place] [employer] 01/20/24 06/20/99 documented as of this encounter
--- OUTSIDE RECORDS SUMMARY | 2024-12-06 08:25 | XMS_ITS | Encounter Summary ---
Author Organization [facility] Address [address] [place] [address] Care Team Providers Care Shark Biologist Name Role Phone Zoraida Travis Unavailable Encounter Details Date Type Department Care Team (Late st Contact Info) Description 11/27/2024 Abstract [facility] OB [address] [facility] [place] [address] Celsa Coats MA Social History Tobacco [...] AM EDT Visit [facility] BCP OB [address] [facility] [place] [address] Zoraida Travis PA [address] [facility] [address] [place], [place] [phone] documented as of this encounter Visit Diagnoses Not on filedocumented in this encounter Care Teams Shark Biologist Relationship Specialty Start Date End Date Zoraida Travis PA [address] [place], [place] [address], [place] [phone] PCP - Medical [place] [employer] 01/20/24 06/20/99 documented as of this encounter
--- OUTSIDE RECORDS SUMMARY | 2024-12-06 08:26 | XMS_ITS | Encounter Summary ---
Author Organization [facility] Address [facility]-[id number] [address] [place] [address] Care Team Providers Care Load Manager Name Role Phone KiaraAlly stevenson APRN-LABORER OPERATOR Primary Care Provi collin Encounter Details Date Type Department Care Team (Late st Contact Info) Description 09/25/2021 Orders Only [facility] General Surgery-Bariatric [address] [facility] [place] [phone] Evelyn Flower CMA Social History Tobacco Use [...] Author D/C Home General Yes Yaneth Bright, RAFA-LABORER OPERATOR Note: Evaluation of progress towards goal: Pt plans to d/c home with self care and family support. documented as of this encounter Visit Diagnoses Not on filedocumented in this encounter Additional Health Concerns Assessment Noted Time PHQ-9 Depression Total Score: 0 04/01/20 21 11:14 AM EDT documented as of this encounter Care Teams Load Manager Relationship Specialty Start Date End Date Ally Craig, RAFA-LABORER OPERATOR [address], [place] [address] PCP - General Family Medicine 04/12/18 documented as of this encounter
--- OUTSIDE RECORDS SUMMARY | 2024-12-06 08:26 | XMS_ITS | Encounter Summary ---
Author Organization [facility] Address [facility]-[id number] [address] [place] [address] Care Team Providers Care Package Yarns Drying Machine Operator Name Role Phone Ally Craig PIE MAKER-HOMOGENIZER OPERATOR Primary Care Provi collin Reason for Referral * Diagnostic Imaging (Routine) - Pending Review Specialty Diagnoses / Procedures Referred By Violeta dalal Referred To Contact Maternal and Medicine Diagnoses History of sleeve gastrectomy Hx of supraventricular tachycardia Encounter for anatomic survey Procedures US [facility] with or without consult Cedric Warner DO [address] [place] [address] [place] [address] Phone: tel: fax: Maternal- Medicine at [facility] [address] [place] [address] Phone: tel: fax: Referral ID Status Reason Start Date Expiration Date V isits Requested Visits Authorized [id number] Pending Review 08/11/2024 08/11/2025 1 1 Encounter Details Date Type Department Care Team (Late st Contact Info) Description 08/11/2024 Orders Only Maternal- Medicine at [facility] [address] [place] [address] CMA History of [...] Author D/C Home General Yes Yaneth Bright, PIE MAKER-HOMOGENIZER OPERATOR Note: Evaluation of progress towards goal: Pt plans to d/c home with self care and family support. documented as of this encounter Results * [facility] COMPREHENSIVE ANATOMIC SURVEY (08/24/2024 9:48 AM EST) Anatomical Region Laterality Modality OB-SURVEYOR INSTRUMENT ASSISTANT Ultrasound 08/24/2024 7:49 AM EST Narrative 08/24/2024 12:47 PM EST NAME: CECI PERKINS : 1995 SEX: F Accession Number: [id number] ORDERING PHYSICIAN: CEDRIC WARNER REFERRING PHYSICIAN: CEDRIC WARNER Coding ----- --------- Procedures 91025: Ultrasound, uterus, real time with image documentation, and maternal evaluation plus detailed anatomic examination, transabdominal approach;single or first gestation 03115: Transvaginal Ultrasound (OB) Indication ----- --------- Obesity in , Placenta previa, Screening for Anatomic Survey, Screening for cervical length History ----- --------- OB History 7. Para 1 [id number] Maternal Assessment ----- --------- Physical Exam Height [...] 1 lb 7 oz EFW by Hadlock (VUR-ET-ON-FL) Head / Face / Neck Biometry: Cephalic index 0.69 <1% Nicolaides Marine Engine Mechanic 4.2 mm CM 6.6 mm 70% Nicolaides [...] Maxilla. Mandible. Heart / Thorax LVOT view. 3-opyyzm-gpmcdxb view. Aortic arch view. Bicaval view. Ductal [...] 4.8 cm. Recommendations ----- --------- Please see [facility] documentation from today. The patient is scheduled in four to six week(s) to complete anatomic survey. Subsequent follow up or other follow up as clinically determined by primary OB provider unless otherwise specified by [facility]. Results forwarded to ordering provider so they can follow up with the patient as necessary. Procedure Note Erlin Chung MD - 08/24/2024 NAME: CECI PERKINS : 1995 SEX: F Accession Number: [id number] ORDERING PHYSICIAN: CEDRIC WARNER REFERRING PHYSICIAN: CEDRIC WARNER Coding ----- --------- Procedures 75251: Ultrasound, uterus, real time with imagedocumentation, and maternal evaluation plus detailed anatomic examination, transabdominalapproach;single or first gestation 02049: Transvaginal Ultrasound (OB) Indication ----- --------- Obesity in , Placenta previa, Screening for Anatomic Survey,Screening for cervical length History ----- --------- OB History 7. Para 1 [id number] Maternal Assessment ----- --------- Physical Exam Height [...] 1 lb 7 oz EFW by Hadlock (VWI-ON-DU-FL) Head / Face / Neck Biometry: Cephalic index 0.69 <1% Nicolaides [employer] Engine Mechanic 4.2 mm CM 6.6 mm 70% Nicolaides [...] Maxilla. Mandible. Heart / Thorax LVOT view. 6-vsdkqy-xuxqzqp view. Aortic arch view. Bicavalview. Ductal arch [...] as necessary. us Cedric R Alana DO [facility] US ORDERABLES Final Result documented in this encounter Visit Diagnoses Diagnosis History of sleeve gastrectomy- Primary Hx of supraventricular tachycardia Encounter for anatomic survey History of sleeve gastrectomy Hx of supraventricular tachycardia Encounter for anatomic survey documented in this encounter Additional Health Concerns Assessment Noted Time PHQ-9 Depression Total Score: 19 023 10:14 AM EDT documented as of this encounter Care Teams Package Yarns Drying Machine Operator Relationship Specialty Start Date End Date Ally Craig APRN-HOMOGENIZER OPERATOR [address], [place] [address] PCP - General Family Medicine 04/12/18 documented as of this encounter
--- OUTSIDE RECORDS SUMMARY | 2024-12-06 08:26 | XMS_ITS | Patient Health Record ---
Author Organization [facility] Address [address] [place] [address] Care Team Providers Care Thread Pulling Machine Attendant Name Role Phone Pascale Mcmahon Unavailable [phone] Reason For Referral No Information Plan Of Treatment No Information Insurance Providers Payer Name Payer Address Payer Phone Subscriber Number Group Number Insured Name Patient Relationship to Insured Coverage Start Date Coverage End Date Medicaid [employer] [place] [address] [place] [address] [id number] MADDIE ORNELAS Self - patient is the insured
--- OUTSIDE RECORDS SUMMARY | 2024-12-06 08:26 | XMS_ITS | Encounter Summary ---
Author Organization [facility] tem Address [facility]-[id number] [address] [place] [address] Care Team Providers Care Lamp Decorator Name Role Phone Ally Craig BUSINESS APPLICATIONS ANALYST-RADIATOR TESTER Primary Care Provi collin Encounter Details Date Type Department Care Team (Late st Contact Info) Description 08/24/2024 Orders Only Maternal- Medicine at [facility] [address] [place] [address] Zoraida Butcher LPN Social History Tobacco Use [...] Author D/C Home General Yes Yaneth Bright APRN-RADIATOR TESTER Note: Evaluation of progress towards goal: Pt plans to d/c home with self care and family support. documented as of this encounter Visit Diagnoses Not on filedocumented in this encounter Additional Health Concerns Assessment Noted Time PHQ-9 Depression Total Score: 19 023 10:14 AM EDT documented as of this encounter Care Teams Lamp Decorator Relationship Specialty Start Date End Date Ally Craig, RAFA-RADIATOR TESTER [address], [place] [address] PCP - General Family Medicine 04/12/18 documented as of this encounter
--- OUTSIDE RECORDS SUMMARY | 2024-12-06 08:26 | XMS_ITS | Encounter Summary ---
Author Organization [facility] Address [address] [place] [address] Care Team Providers Care Furnace Charger Name Role Phone Zoraida Travis Unavailable Encounter Details Date Type Department Care Team (Late Contact Info) Description 06/06/2024 Abstract [facility] OB [address] [facility] [place] [address] Cedric Warner DO [address] [facility] [address] Cheng Velasquez, [facility] Social History Tobacco Use Types Packs/Day [...] AM EDT Visit [facility] BCP OB [address] [facility] [place] [address] Zoraida Travis PA [address] [place] [address] documented as of this encounter Visit Diagnoses Not on filedocumented in this encounter Care Teams Furnace Charger Relationship Specialty Start Date End Date Zoraida Travis PA [address] [place] [address] [place] [address] PCP - Medical [place] Commercial 01/20/24 06/20/99 documented as of this encounter
--- OUTSIDE RECORDS SUMMARY | 2024-12-06 08:26 | XMS_ITS | Encounter Summary ---
Author Organization [facility] Address [address] [place] [address] Care Team Providers Care Apple Sorter Name Role Phone Zoraida Travis Unavailable Encounter Details Date Type Department Care Team (Late st Contact Info) Description 05/13/2024 Clinisync Result Encounter NOMS External Department Unsolicited Arminda Warner DO [address] [facility] [address] [place], [place] [phone] Social History Tobacco Use Types Packs/Day Years [...] AM EDT Visit [facility] BCP OB [address] [facility] [place] [address] Zoraida Travis PA [address] [facility] [address] [place] [id number] documented as of this encounter Procedures Procedure Name Priority Date/Time Associated Diagnosis Comments US OB TRANSVAGINAL 05/13/2024 8: 59 AM EST documented in this encounter Results * US OB TRANSVAGINAL (05/13/2024 8:59 AM EST) Anatomical Region Laterality Modality Other 05/13/2024 8:59 AM EST Narrative 05/13/2024 9:02 AM EST [address] [address] Ultrasound Report Signed Patient: MADDIE RAMAN MR#: [id number] : 1995 Acct:[id number] Age/Sex: 28 / F ADM Date: 05/13/24 Loc: US Attending Dr: Arminda Warner D.O. Ordering Physician: Arminda Warner D.O. Date of Service: 05/13/24 Procedure(s): US OB transvaginal Accession Number(s): [id number] cc: Arminda Warner D.O.; Ally Craig NP [address] [address] Patient Name: MADDIE RAMAN MRN: [facility]:[id number] date: 1995 Sex: F Assigned Patient Location: US Current Patient Location: US Accession/Order Number: [id number] Exam Date: 05/13/2024 08:04 Report Date: 05/13/2024 [...] Signed By: 05/13/24 0902 DD/ 0859 TD/TT: Consumer Sales Representative: Procedure Note Radiology, Radiologist, MD - 05/13/2024 [place] [address] Ultrasound Report Signed Patient: MADDIE RAMAN CMR#: [id number] : 1995Acct:[id number] Age/Sex: 28 / FADM Date: 05/13/24 Loc: US Attending Dr: Arminda Warner D.O. Ordering Physician: Arminda Warner D.O. Date of Service: 05/13/24 Procedure(s): US OB transvaginal Accession Number(s): [id number] cc: Arminda Warner D.O.; Ally Craig NP [address] [place] [address] Patient Name: MADDIE RAMAN MRN: [facility]:[id number] date: 1995 Sex: F Assigned Patient Location: US Current Patient Location: US Accession/Order Number: [id number] Exam Date: 05/13/2024 08:04 Report Date: 05/13/2024 [...] Arcadio Nevarez M.D. Signed By:05/13/24901 DD/ TD/TT: Consumer Sales Representative: us Arminda Alana DO [facility] Final Result documented in this encounter Visit Diagnoses Not on filedocumented in this encounter Care Teams Apple Sorter Relationship Specialty Start Date End Date Zoraida Travis PA [address] [place] [address] [place] [address] PCP - Medical [place] [employer] 01/20/24 06/20/99 documented as of this encounter
--- OUTSIDE RECORDS SUMMARY | 2024-12-06 08:26 | XMS_ITS | Encounter Summary ---
Author Organization [facility] [email or web address] [facility] Address [facility][id number] [address] [place] [address] Care Team Providers Care Visual Merchandising Specialist Name Role Phone Ally Craig COSTUME TECHNICIAN-METALWORKER Primary Care Provi collin Encounter Details Date Type Department Care Team (Late st Contact Info) Description 03/29/2024 Telephone [facility] General Surgery-Bariatric [address] [address] Lauren Arndt MD [address] [place] [address] Social History Tobacco Use Types [...] Author D/C Home General Yes Yaneth Bright APRN-METALWORKER Note: Evaluation of progress towards goal: Pt plans to d/c home with self care and family support. documented as of this encounter Visit Diagnoses Not on filedocumented in this encounter Additional Health Concerns Assessment Noted Time PHQ-9 Depression Total Score: 19 023 10:14 AM EDT documented as of this encounter Care Teams Visual Merchandising Specialist Relationship Specialty Start Date End Date Ally Craig, COSTUME TECHNICIAN-METALWORKER [address], [place] [address] PCP - General Family Medicine 04/12/18 documented as of this encounter
--- OUTSIDE RECORDS SUMMARY | 2024-12-06 08:26 | XMS_ITS | Encounter Summary ---
Author Organization [facility] Address [facility] [place]-[id number] [address] [place] [address] Care Team Providers Care Fitness Technician Name Role Phone Ally Craig VISITOR SERVICES COORDINATOR-VERTICAL LATHE OPERATOR Primary Care Provi collin Encounter Details Date Type Department Care Team (Late st Contact Info) Description 06/08/2022 Orders Only [facility] Family Medicine [address] [place] [address] [place] [address] External, Scanning Provider Social History [...] Author D/C Home General Yes Yaneth Bright, VISITOR SERVICES COORDINATOR-VERTICAL LATHE OPERATOR Note: Evaluation of progress towards goal: [...] documented as of this encounter Care Teams Fitness Technician Relationship Specialty Start Date End Date Ally Craig, RAFA-VERTICAL LATHE OPERATOR [address], [place] [address] PCP - General Family Medicine 04/12/18 documented as of this encounter
--- OUTSIDE RECORDS SUMMARY | 2024-12-06 08:26 | XMS_ITS | Clinical Summary ---
Author Organization Authorly tem Address [facility]-[id number] [address] [place] [address] Care Team Providers Care Dry Cleaning Teacher Name Role Phone Ally Craig DOCUMENT IMAGING MANAGER-OUTDOOR STUDIES DIRECTOR Primary Care Provi collin Allergies Active Allergy Reactions Criticality Noted Date Comments Goodman Extract Anaphylaxis High 02/01/2019 Medications * This [...] (10/05/2017): Added automatically from request for surgery [id number] SVT (supraventricular tachycardia) 09/26/2017 10/01/2020 Encounters Date Type Department Care Team Description 11/15/2024 Refill Maternal- Medicine at [facility] [address] [place] [address] Erlin Chung MD History of sleeve gastrectomy 11/06/2024 12:00 PM EDT Office Visit Maternal- Medicine at [facility] [address] [place] [address] Erlin Chung MD History of sleeve gastrectomy (Primary Dx) 11/06/2024 10:39 AM EDT - 11/06/2024 11:59 PM EDT Hospital Encounter [facility] US Imaging [address] [place] [address] History of sleeve gastrectomy; Hx of supraventricular tachycardia; Encounter for follow-up ultrasound of anatomy; Encounter for anatomic survey Discharge Disposition: Home 11/06/2024 Travel 10/20/2024 8:45 AM EDT Telemedicine Maternal- Medicine at [facility] [address] [place] [address] Erlin Chung MD History of sleeve gastrectomy (Primary Dx); Hx of supraventricular tachycardia 10/20/2024 Travel 10/05/2024 9:00 AM EDT Ancillary Procedure [facility] [address] [place] [phone] Hx of supraventricular tachycardia 10/05/2024 8:30 AM EDT Office Visit [facility] [address] [place] [phone] Ole Rojas MD Hx of supraventricular tachycardia (Primary Dx) 10/05/2024 Travel 09/29/2024 Orders Only Maternal- Medicine at [facility] [address] [place] [phone] Triny Morales RN History of sleeve gastrectomy (Primary Dx); Hx of supraventricular tachycardia; Encounter for follow-up ultrasound of anatomy; Encounter for anatomic survey 09/28/2024 2:22 PM EDT - 09/28/2024 11:59 PM EDT Hospital Encounter [facility] US Imaging [address] [place] [phone] History of sleeve gastrectomy; Hx of supraventricular [...] Author D/C Home General Yes Yaneth Bright, DOCUMENT IMAGING MANAGER-OUTDOOR STUDIES DIRECTOR Note: Evaluation of progress towards goal: Pt plans to d/c home with self care and family support. Medical Devices Implanted Type Area Ms Sql Dba Device Identifier Shelf Expiration Date Model / [...] Routine 10/05/2024 Hx of supraventricular tachycardia US [facility] OB FOLLOW-UP, 1 FETUS Routine 09/28/2024 4:34 PM EDT History of sleeve gastrectomy Hx of supraventricular tachycardia Encounter for follow-up ultrasound of anatomy from Last 3 Months Results * US [facility] OB FOLLOW-UP, 1 FETUS (11/06/2024 1:37 PM EDT) Only the most recent of2 resultswithin the time period is included. Anatomical Region Laterality Modality OB-ONCOLOGY SOCIAL WORK Ultrasound 11/06/2024 11:3 9 AM EDT Narrative 11/06/2024 3:01 PM EDT NAME: CECI PERKINS : 1995 SEX: F Accession Number: [id number] ORDERING PHYSICIAN: LUIS ANGEL NGUYEN REFERRING PHYSICIAN: ARMINDA WHITE Coding ----- --------- Procedures 19500: Follow-up Ultrasound, per fetus Indication ----- --------- Obesity in , Previous , Previous bariatric surgery, Screening for follow-up survey History ----- --------- OB History 7. Para 1 [id number] Maternal Assessment ----- --------- Physical Exam Height [...] EFW (oz) 15 oz EFW by: Hadlock ([id number]) Extended Tibia 56.0 mm 32w 6d 26% [employer] Cake Decorator 3.4 mm CM 9.1 mm 87% Nicolaides [...] Thorax RVOT view. LVOT view. 3-vessel view. 8-ftoxdl-zuvvkzo view. Situs. Aortic arch view. Bicaval view. [...] PERKINS : 1995 SEX: F Accession Number: [id number] ORDERING PHYSICIAN: LUIS ANGEL NGUYEN REFERRING PHYSICIAN: ARMINDA WHITE Coding ----- --------- Procedures 50621: Follow-up Ultrasound, per fetus Indication ----- --------- Obesity in , Previous , Previous bariatric surgery,Screening for follow-up survey History ----- --------- OB History 7. Para 1 [id number] Maternal Assessment ----- --------- Physical Exam Height [...] EFW (oz) 15 oz EFW by: Hadlock ([id number]) Extended Tibia 56.0 mm 32w 6d 26% [employer] Cake Decorator 3.4 mm CM 9.1 mm 87% Nicolaides [...] Thorax RVOT view. LVOT view. 3-vessel view. 8-tdntyi-ozbmedw view.Situs. Aortic arch view. Bicaval view. Interventricular [...] 5.1 cm. Recommendations ----- --------- Please see [facility] documentation from today. anatomic survey is incomplete due to late gestational age andsuboptimal visualization. Subsequent follow up or other follow up as clinically determined byprimary OB provider unless otherwise specified by [facility]. Results forwarded to ordering provider so [...] Last 3 Months Insurance MEDICAID [employer] [facility] MEDICAID Advance Directives * Full Code (Latest Code Status on File) Date Activated Date Inactivated Comments 11/10/2021 9:36 AM 11/11/2021 5:57 PM * Full Code Date Activated Date Inactivated Comments 04/24/2019 2:41 PM 04/27/2019 6:16 PM * Full Code Date Activated Date Inactivated Comments 09/26/2017 4:13 AM 10/03/2017 1:52 PM Care Teams Dry Cleaning Teacher Relationship Specialty Start Date End Date Ally Craig, RAFA-FALGUNI [address], [place] [address] PCP - General Family Medicine 04/12/18
--- OUTSIDE RECORDS SUMMARY | 2024-12-06 08:26 | XMS_ITS | Encounter Summary ---
Author Organization [facility] tem Address [facility][id number] [address] [place] [address] Care Team Providers Care Chain Person Name Role Phone Ally Craig GAS GOLF CART REPAIRER-POWER REACTOR SUPERVISOR Primary Care Provi collin Encounter Details Date Type Department Care Team (Late st Contact Info) Description 03/27/2021 Telephone [facility] [address] [place] [address] [place] [address] Ally Craig, GAS GOLF CART REPAIRER-POWER REACTOR SUPERVISOR [address] [facility] [address], [place] [address] Social History Tobacco Use Types [...] documented as of this encounter Care Teams Chain Person Relationship Specialty Start Date End Date Ally Craig APRN-CNP [address], [place] [address] PCP - General Family Medicine 04/12/18 documented as of this encounter
--- OUTSIDE RECORDS SUMMARY | 2024-12-06 08:26 | XMS_ITS | Encounter Summary ---
Author Organization [facility] Address [address] [place] [address] Care Team Providers Care Veterinary Livestock Inspector Name Role Phone Zoraida Travis Unavailable Encounter Details Date Type Department Care Team (Late Contact Info) Description 06/15/2024 Abstract [facility] OB [address] [facility] [place] [address] Cedric Warner DO [address] [facility] [address] Cheng Velasquez, [id number] Social History Tobacco Use Types Packs/Day Years [...] AM EDT Visit [facility] [address] [facility] [place] [address] Zoraida Travis PA [address] [place] [address] documented as of this encounter Visit Diagnoses Not on filedocumented in this encounter Care Teams Veterinary Livestock Inspector Relationship Specialty Start Date End Date Zoraida Travis PA [address] [place] [address] [place] [address] PCP - Medical [place] [employer] 01/20/24 06/20/99 documented as of this encounter
--- OUTSIDE RECORDS SUMMARY | 2024-12-06 08:26 | XMS_ITS | Encounter Summary ---
Author Organization [facility] tem Address [facility]-[id number] [address] [place] [address] Care Team Providers Care Requisition Approver Name Role Phone KiaraAlly stevenson OPTICAL GLASS INSPECTOR-PHYSICAL THERAPY AID Primary Care Provi collin Encounter Details Date Type Department Care Team (Late st Contact Info) Description 08/14/2024 Orders Only Maternal- Medicine at [facility] [address] [place] [address] Cedric Warner R, DO [address] [facility] [place] [address] Social History Tobacco Use Types Packs/Day Years [...] Author D/C Home General Yes Yaneth Bright, OPTICAL GLASS INSPECTOR-PHYSICAL THERAPY AID Note: Evaluation of progress towards goal: Pt [...] documented as of this encounter Care Teams Requisition Approver Relationship Specialty Start Date End Date Ally Craig, OPTICAL GLASS INSPECTOR-PHYSICAL THERAPY AID [address], [place] [address] PCP - General Family Medicine 04/12/18 documented as of this encounter
--- OUTSIDE RECORDS SUMMARY | 2024-12-06 08:26 | XMS_ITS | Clinical Summary ---
Author Organization [facility] Address [address] [place] [address] Care Team Providers Care Card Punching Machine Operator Name Role Phone Ally Craig APRN - BUSINESS INSTRUCTOR Primary Care Pro vider Allergies Active Allergy Reactions Criticality Noted Date Comments [place] Extract Anaphylaxis High 02/01/2019 Medications vitamin D (ERGOCALCIFEROL ) 78698 units CAPS capsule Take 1 capsule by [...] this topic Medical Devices Implanted Type Area Cutting Machine Tender Helper Device Identifier Shelf Expiration Date Model / Serial / Lot Plate Recon 3.5mm Low Prof 6h Implanted:Qty : 1 on 02/08/2019 by Ernesto Levine DO at [facility] Screw/Pl ate/Nail /Blane Right: Acetabulum SYNTHES-PMM [id number] / / Screw Cortx Slftp Fthrd 3.5x32mm Implanted:Qty : 1 on 02/08/2019 by Ernesto Levine DO at [facility] Screw/Pl ate/Nail /Blane Right: Acetabulum SYNTHES-PMM [id number] / / Screw Cortx Slftp Fthrd 3.5x34mm Implanted:Qty : 1 on 02/08/2019 by Ernesto Levine DO at [facility] Screw/Pl ate/Nail /Blane Right: Acetabulum SYNTHES-PMM [id number] / / Screw Cortx Slftp Fthrd 3.5x40mm Implanted:Qty : 1 on 02/08/2019 by Ernesto Levine DO at [facility] Screw/Pl ate/Nail /Blane Right: Acetabulum SYNTHES-PMM [id number] / / Screw Cortx Fthrd Slftp Ss 3.5x80mm Implanted:Qty : 1 on 02/08/2019 by Ernesto Levine DO at [facility] Screw/Pl ate/Nail /Blane Right: Acetabulum SYNTHES-PMM [id number] / / Explanted Type Area Cutting Machine Tender Helper Device Identifier Shelf Expiration Date Model / Serial / Lot Pin Explanted:Qty: 1 on 02/08/2019 at [facility] Description:thrown in sharps container [place] Retentioner Explanted:Qty: 1 on 02/08/2019 at [facility] Description:recyled Insurance [facility] [place] [employer] [address] [address] [address] [place] GENERIC [place] [address] [address] [facility] GENERIC AUTO INSURANCE GENERIC AUTO INSURANCE [facility] [place] GENER[place] INS[place] GENERIC AUTO INSURANCE [...] 4:31 AM 02/15/2019 1:50 PM Care Teams Card Punching Machine Operator Relationship Specialty Start Date End Date Ally Craig, CONSULTANT LUXURY AND AUTO. VICE PRESIDENT [employer]EX ) - BUSINESS INSTRUCTOR [address] [place] [address] PCP - General Nurse Practitioner 01/31/19
--- OUTSIDE RECORDS SUMMARY | 2024-12-06 08:26 | XMS_ITS | Encounter Summary ---
Author Organization [facility] Address [address] [place] [address] Care Team Providers Care Mannequin Mounter Name Role Phone Zoraida Travis Unavailable Encounter Details Date Type Department Care Team (Late Contact Info) Description 07/31/2024 Abstract [facility] OB [address] [facility] [address] Cedric Warner DO [address] [facility] [address] Cheng Velasquez, [facility] Social History Tobacco Use Types Packs/Day [...] AM EDT Visit [facility] BCP OB [address] [facility] [address] Zoraida Travis PA [address] [place], [place] [id number] documented as of this encounter Visit Diagnoses Not on filedocumented in this encounter Care Teams Mannequin Mounter Relationship Specialty Start Date End Date Zoraida Travis PA [address] [place] [address] [place] [address] PCP - Medical [place] [employer] 01/20/24 06/20/99 documented as of this encounter
--- OUTSIDE RECORDS SUMMARY | 2024-12-06 08:26 | XMS_ITS | Encounter Summary ---
Author Organization [employer] tem Address [facility][id number] [address] [place] [address] Care Team Providers Care Press Reader Name Role Phone KiaraAlly stevenson FRONT DESK ASSISTANT-PRODUCTION FINISHER Primary Care Provi collin Reason for Visit * Reason Onset Date Comments Med Refill 11/20/2021 Encounter Details Date Type Department Care Team (Late st Contact Info) Description 11/20/2021 Refill [facility] Surgery-Bariatric [address] [facility] [address] [place] [address] Evelyn Flower CMA Social History [...] Author D/C Home General Yes Yaneth Bright APRN-PRODUCTION FINISHER Note: Evaluation of progress towards goal: Pt plans to d/c home with self care and family support. documented as of this encounter Visit Diagnoses Not on filedocumented in this encounter Additional Health Concerns Assessment Noted Time PHQ-9 Depression Total Score: 0 04/01/20 21 11:14 AM EDT documented as of this encounter Care Teams Press Reader Relationship Specialty Start Date End Date Ally Craig, FRONT DESK ASSISTANT-PRODUCTION FINISHER [address], [place] [address] PCP - General Family Medicine 04/12/18 documented as of this encounter
--- OUTSIDE RECORDS SUMMARY | 2024-12-06 08:26 | XMS_ITS | Encounter Summary ---
Author Organization [employer] [facility] tem Address [facility][id number] [address] [place] [address] Care Team Providers Care Chair Post Machine Operator Name Role Phone Ally Craig APRN-NAVIGATING OFFICER Primary Care Provi collin Encounter Details Date Type Department Care Team (Late st Contact Info) Description 08/20/2021 Telephone [facility] [address] [place] [address] [place] [address] Leslie Deal CMA Social History [...] Author D/C Home General Yes Yaneth Bright, RAFA-NAVIGATING OFFICER Note: Evaluation of progress towards goal: Pt plans to d/c home with self care and family support. documented as of this encounter Visit Diagnoses Not on filedocumented in this encounter Additional Health Concerns Assessment Noted Time PHQ-9 Depression Total Score: 0 04/01/20 21 11:14 AM EDT documented as of this encounter Care Teams Chair Post Machine Operator Relationship Specialty Start Date End Date Ally Craig APRN-NAVIGATING OFFICER [address], [place] [address] PCP - General Family Medicine 04/12/18 documented as of this encounter
--- OUTSIDE RECORDS SUMMARY | 2024-12-06 08:26 | XMS_ITS | Encounter Summary ---
Author Organization [facility] Address [address] [place] [address] Care Team Providers Care Steward/Stewardess Name Role Phone Zoraida Travis Unavailable Encounter Details Date Type Department Care Team (Late st Contact Info) Description 06/27/2024 Abstract [facility] OB [address] [facility] [place] [address] Felicita Wyatt LPN Social History Tobacco [...] [address] [facility] [place] [address] Zoraida Travis PA [address] [place], [place] [address] [place], [place] [id number] documented as of this encounter Visit Diagnoses Not on filedocumented in this encounter Care Teams Steward/Stewardess Relationship Specialty Start Date End Date Zoraida Travis PA [address] [place], [place] [address], [place] [id number] PCP - Medical [place] [employer] 01/20/24 06/20/99 documented as of this encounter
--- OUTSIDE RECORDS SUMMARY | 2024-12-06 08:27 | XMS_ITS | Encounter Summary ---
Author Organization [facility] Address [facility]-[id number] [address] [place] [address] Care Team Providers Care Valve Machine Operator Name Role Phone Kiara, Ally Donn FIELD ARTILLERY OPERATIONS SPECIALIST-FIELD SEISMOLOGIST Primary Care Provi collin Encounter Details Date Type Department Care Team (Late st Contact Info) Description 12/17/2020 Orders Only [facility] General Surgery-Bariatric [address] [facility] [place] [phone] External, Scanning Provider Social History Tobacco Use [...] Author Husain/C Home General Yes Yaneth Bright, FIELD ARTILLERY OPERATIONS SPECIALIST-FIELD SEISMOLOGIST Note: Evaluation of progress towards goal: Pt plans to d/c home with self care and family support. documented as of this encounter Procedures Procedure Name Priority Date/Time Associated Diagnosis Comments PAP SMEAR Routine 12/17/2020 documented in this encounter Results * PAP SMEAR (12/17/2020) us Scanning Provider External CT PROFESSIONAL SERVI LINDA Final Result MANUALLY TRANSCRIBED RESULTS documented in this encounter Visit Diagnoses Not on filedocumented in this encounter Additional Health Concerns Infection Onset Date Last Indicated Resolved Time COVID-19 Rule-Out 05/27/2021 05/27/2021 05/28/2021 7:43 PM EST Assessment Noted Time PHQ-9 Depression Total Score: 0 01/22/20 20 2:00 PM EDT documented as of this encounter Care Teams Valve Machine Operator Relationship Specialty Start Date End Date Ally Craig, FIELD ARTILLERY OPERATIONS SPECIALIST-FIELD SEISMOLOGIST [address], [place] [address] PCP - General Family Medicine 04/12/18 documented as of this encounter
--- OUTSIDE RECORDS SUMMARY | 2024-12-06 08:27 | XMS_ITS | Encounter Summary ---
Author Organization [facility] tem Address [id number] [address] [place] [address] Care Team Providers Care Party Director Name Role Phone KiaraAlly stevenson POWER SWEEPER OPERATOR-SURGICAL INSTRUMENT MAKER Primary Care Provi collin Encounter Details Date Type Department Care Team (Late st Contact Info) Description 11/06/2020 [facility]phone [facility] [address] [place] [address] [place] [address] Yong Veliz CMA Social History [...] documented as of this encounter Care Teams Party Director Relationship Specialty Start Date End Date Ally Craig APRN-CNP [address], [place] [address] PCP - General Family Medicine 04/12/18 documented as of this encounter
--- OUTSIDE RECORDS SUMMARY | 2024-12-06 08:27 | XMS_ITS | Encounter Summary ---
Author Organization [employer] tem Address [id number] [address] [place] [address] Care Team Providers Care Automatic Vulcanizing Lead Operator Name Role Phone Ally Craig APRN-EQUITY MANAGER Primary Care Provi collin Reason for Visit * Reason Onset Date Comments Med Refill 04/30/2020 Encounter Details Date Type Department Care Team (Late st Contact Info) Description 04/30/2020 Telephone [facility] Family Medicine [address] [place] [address] [place] [address] Nataly Caballero CMA Med Refill [...] Author D/C Home General Yes Yaneth Bright, LOBBY ATTENDANT-EQUITY MANAGER Note: Evaluation of progress towards goal: [...] documented as of this encounter Care Teams Automatic Vulcanizing Lead Operator Relationship Specialty Start Date End Date Ally Craig, RAFA-EQUITY MANAGER [address], [place] [address] PCP - General Family Medicine 04/12/18 documented as of this encounter
--- OUTSIDE RECORDS SUMMARY | 2024-12-06 08:27 | XMS_ITS | Encounter Summary ---
Author Organization [employer] tem Address [facility]-[id number] [address] [place] [address] Care Team Providers Care Stationary Engineer Name Role Phone Ally Craig MANAGER PARTY-PLANT TAXONOMIST Primary Care Provi collin Encounter Details Date Type Department Care Team (Late st Contact Info) Description 07/23/2022 Telephone [facility] [address] [place] [address] [place] [address] Gi Motley CMA Social History [...] D/C Home General Yes Yaneth Bright, MANAGER PARTY-PLANT TAXONOMIST Note: Evaluation of progress towards goal: Pt plans to d/c home with self care and family support. documented as of this encounter Visit Diagnoses Not on filedocumented in this encounter Additional Health Concerns Assessment Noted Time PHQ-9 Depression Total Score: 0 04/01/20 21 11:14 AM EDT documented as of this encounter Care Teams Stationary Engineer Relationship Specialty Start Date End Date Ally Craig, MANAGER PARTY-PLANT TAXONOMIST [address], [place] [address] PCP - General Family Medicine 04/12/18 documented as of this encounter
--- OUTSIDE RECORDS SUMMARY | 2024-12-06 08:27 | XMS_ITS | Encounter Summary ---
Author Organization [facility] tem Address [facility]-[id number] [address] [place] [address] Care Team Providers Care Hydrographical Technical Officer Name Role Phone KiaraAlly stevenson AS400 ANALYST-STOVE MOUNTER Primary Care Provi collin Encounter Details Date Type Department Care Team (Late st Contact Info) Description 10/09/2020 Telephone [facility] [address] [place] [address] [place] [address] Yong Veliz CMA Social History [...] Author D/C Home General Yes Yaneth Bright, AS400 ANALYST-STOVE MOUNTER Note: Evaluation of progress towards goal: Pt [...] documented as of this encounter Care Teams Hydrographical Technical Officer Relationship Specialty Start Date End Date Ally Craig, AS400 ANALYST-STOVE MOUNTER [address], [place] [address] PCP - General Family Medicine 04/12/18 documented as of this encounter
--- NOTE | 2024-12-06 16:55 | PC.NURSE ---
Danika and Preeti arrive for follow up. Danika states is feeling well and thinks is going well. Does admit to having sore nipples. Danika with VSS and assessment WNL. Nipples have raw tips and small open area. Baby [place] with VSS and assessment WNL. Baby to breast in football hold, Mom coached on deeper latch. Notes discomfort is much improved and points out baby has more swallowing with feeds. Baby actively nurses for 12 minutes. Mother shown to care for nipples with tea bag, lanolin, soothies and breast shells. to second breast, in football hold. Deep latch, audible swallows noted. post feed weight is up 1.5 oz from weight today. Mom pleased with transfer of milk. Reviewed breast care. Will return for further support 12/12/2024. Family leaves, states feels much better after support.
[2024-12-06 16:56] VITALS: BP 117/82; PULSE 87; TEMP 37.1; O2SAT 96
== END 2024-12-06 17:01 | disposition home or self-care (01) ==
LOC: FBCO 08:23
PROVIDERS: PCP Nurse Practitioner; Visit Provider Obstetrics & Gynecology
DX: Z39.1 Encounter for care and examination of lactating mother (principal)

== ENCOUNTER 2024-12-15 08:09 | Outpatient (OUT) | payer OTHER, SELFPAY | END 2024-12-15 08:10 | disposition home or self-care (01) | LOC: FBCO 08:12 | PROVIDERS: PCP Nurse Practitioner; Visit Provider Obstetrics & Gynecology | DX: Z39.1 Encounter for care and examination of lactating mother (principal) | CPT/HCPCS: G0463 ==